=== PATIENT | female | born 1970 | race Caucasian/White ===

== ENCOUNTER 2017-05-02 06:52 | Inpatient (IN) | payer MEDICAID, SELFPAY ==
[2017-04-25 09:05] VITALS: BP 116/74; PULSE 79; RESP 16; TEMP 36.1; O2SAT 99; BMI 33.4
[2017-04-25 09:27] LABS: Hematocrit 39.4 % (37-47); Hemoglobin 13.9 g/dl (12.0-15.0); Mean Corp Hgb Conc 35.3 g/gl (32-36); Mean Corpuscular Volume 87.9 fL (81-99); Platelet Count 197 K/mm3 (150-450); RBC Distribution Width CV 12.3 % (11.6-14.6); RBC Distribution Width SD 38.8 fl (35.1-43.9); Red Blood Count 4.48 M/mm3 (4.2-5.4); White Blood Count 5.2 K/mm3 (4.4-11.0)
[2017-04-25 09:31] LABS: Scan Indicated on CBC? Y/N NO
[2017-04-25 09:46] LABS: Prothrombin Time (Protime)PT. 12.4 SECONDS (11.7-14.9)
[2017-04-25 09:47] LABS: Partial Thromboplast Time 26.4 Seconds (24.1-36.2)
--- NOTE | 2017-05-01 18:07 | PCM.HP.BLA ---
History and Physical Date of Admission: 05/02/17 CC: evaluation breast reconstruction. History of Present Illness: 47 year old woman presents for evaluation breast reconstruction. Her initial bilateral mastectomy was on 01/12/16. She underwent IV chemotherapy initially and this was followed by radiation therapy to the right breast. She finished the radiation therapy in 10/03. She states that during this adjuvant therapy, she has gained a little weight and has developed some extra tissue in the lower anterior abdominal wall. The last time I saw her in 03/04, she was interested in breast reconstruction with placement of implants. Now she is contemplating the use of autogenous tissue for the radiated right breast. She denies any fever. She states she has stopped smoking since her diagnosis of breast cancer. 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 Ahn - 01/12/16 mastectomy right breast and bilateral sentinel node biopsies by Dr. Juárez - 01/12/16 port placement - 02/02 MEDICATIONS: Zoloft. Valium. Mobic. Trazodone. Norvasc. Calcium Carbonate. ALLERGIES: Poultry. Family History: negative for breast cancer. Social History: Patient is a former smoker. Passive smoke exposure - no Alcohol Use - no Regular Exercise - yes Passive smoke exposure - yes Review of Systems General - Denies fever and fatigue. History of weight loss. Eyes - Denies eye pain. ENT - Denies nasal congestion and sore throat. CV - Denies chest pain or discomfort, fatigue, lightheadedness and shortness of breath with exertion. Resp - Denies cough and shortness of breath. Patient is a former smoker. GI - Denies nausea, vomiting, diarrhea and constipation. - Denies blood in urine and urinary frequency. MS - Complains of back pain. Denies joint pain, stiffness, muscle weakness and arthritis. Derm - Denies suspicious lesions and skin cancer. Neuro - Denies poor balance and headaches. Psych - Complains of anxiety. Denies depression. Endo - Denies excessive urination and excessive thirst. Has thyroid disease. Has history of right breast cancer. Heme - Denies bleeding and abnormal bruising. Vital Signs: Patient Profile: 47 Years Old Female Height: 61 inches Weight: 119.2 pounds BMI: 22.52 BSA: 1.52 Physical Exam General: well developed, well nourished, in no acute distress. Her bra size was 36 C prior to her breast cancer. Head: normocephalic and atraumatic. Eyes: PERRL. EOMI. Neck: no masses, thyromegaly, or abnormal cervical nodes. Breasts: Mastectomy vertical incisions are intact and healed. On the right breast there is some radiation effects with some firmness to the skin. Some mild discoloration. Some adherence to the chest wall. No axillary adenopathy. Breast diameter is 12 cm bilaterally. Lungs: clear bilaterally to auscultation. Heart: regular rate and rhythm. Abdomen: normal bowel sounds; no hepatosplenomegaly no ventral,umbilical hernias or masses noted. There is redundant skin and subcutaneous tissue between the umbilicus and the pubic area. Good skin elasticity noted. There is a horizontal scar in the pubic area. Pulses: pulses normal in all 4 extremities. Extremities: no clubbing, cyanosis, edema, or deformity noted with normal full range of motion of all joints. Neurologic: cranial nerves II-XII grossly intact. Skin: no rashes. Cervical Nodes: no significant adenopathy. Axillary Nodes: no significant adenopathy. Inguinal Nodes: no significant adenopathy. Psych: alert and cooperative; normal mood and affect; normal attention span and concentration. Assessment and Plan 1. Right breast cancer. 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 4. Disproportion reconstructed breasts. 5. Late effect radiation right breast. 6. Estrogen receptor status negative. 7. Former smoker. Patient has finished her chemotherapy and has finished her radiation therapy in 10/03. Before her adjuvant therapy, she was thinking about implants. However with the radiation therapy we will need to bring in non-radiated tissue into the breast. She has redundant skin and subcutaneous tissue in the lower anterior abdominal wall. She is interested in the TRAM flap. She has good skin elasticity in the lower anterior abdominal wall. Because the patient has stopped smoking, we don't need an initial TRAM flap delay procedure. The left breast mastectomy wound can be reconstructed with saline tissue expanders followed by placement of a cohesive gel implant and placement of Alloderm. Will proceed with the TRAM flap first. During the postop recovery period, can then proceed with left breast reconstruction with placement of the saline tissue surgical training specialist. At the time of removal of the surgical training specialist with replacement cohesive gel implant, we can revise the TRAM flap on the right if necessary. Because of her radiated tissue, will proceed with HBO treatments after the surgery during her postop recovery. This will help the vascularity and healing of the radiated tissue adjacent to the TRAM flap. Because of this radiation effect, when I inset the TRAM flap into the right breast mound, I anticipate there will radiation fibrosis that will cause a sharp cutoff between the flap skin and the radiated skin. Multiple W-plasties were performed to help soften up the scarring in this area and give it a smoother contour. The size of the multiple W-plasties was 40 cm2. Surgery will be done under general anesthesia. She will be in the hospital for approximately 5-7 days. Any breast tissue that is removed will be sent to Pathology for analysis to rule out carcinoma. She will have drains in for several days and be on antibiotics until the drains are removed. She will wear a surgical bra and abdominal binder for several weeks. Depending on how strong the abdominal wall fascia is, she may need re-enforcement of the abdominal wall with Strattice acellular dermal matrix graft to minimize hernia formation. She will have a special diet for 6 weeks (no caffeine, no coffee, no decaf, no tea, no chocolate). The patient was informed of the risks and complications of the procedure including alternatives to surgery. These were discussed with the patient personally. The patient voices understanding and wishes to proceed. Some of the risks and complications were included in a form from the [employer]. Encouraged the patient to stop smoking as it may have deleterious effects on wound healing. She states she has stopped smoking after her breast cancer diagnosis.
[2017-05-02] VITALS (7 sets, daily range): BP systolic 112–169; BP diastolic 72–87; PULSE 84–119; RESP 12–18; TEMP 36.6–37.1; O2SAT 95–100; BMI 33.4; BMI 33.7
--- NOTE | 2017-05-02 | BREAST_PTH ---
PATIENT: SHARON BARRAGAN LOC: MS2 U#:[id number] AGE/SX: 47/F ROOM: [facility] [place] RE05/02/[address]: Dr. Junior Ahn MD : 1970 BED: 1 DIS: 05/10/2017 SPEC #: [id number] RECD: 05/03/17 13:38 STATUS: CHIDI REConstance #: [id number] JOANNA: 05/02/17 00:[address]: Junior Ahn DEPT: SURGICAL PATHOLOGY RECD BY: Jaya Carter ENTERED: 05/03/17 13:39 SP TYPE: BREAST OTHR DR: MD Dr. Josué Lepe MD Tissues: Right breast, NOS Procedures: Surgery Specimen Level IV HEADER OPERATION: Delayed breast reconstruction, tram flap PRE-OP DIAGNOSIS: Acquired absence bilateral breasts; disproportion reconstructed breast TISSUE SUBMITTED: Right breast tissue FIXATION TIME: 12 hours MICROSCOPIC DIAGNOSIS Right breast, reconstruction: Dense collagenized stroma. Focal reactive and degenerative skeletal muscle change. No evidence of malignancy. AM:sharon 05/04/17 COMMENT Reference is made to the patient?s right breast ultrasound-guided needle core biopsy from 12/11/15 ([id number]) in which invasive ductal carcinoma was identified. MICROSCOPIC DESCRIPTION Slides are reviewed. GROSS DESCRIPTION Received in fixative is one container labeled with the patient's name and designated right breast tissue. The specimen consists of 23 fragments of clark-yellow fibrofatty tissue measuring in aggregate 14 x 12 x 2.5 cm and in aggregate weighing 105 gm. Several of the larger fragments contain grossly unremarkable skin. Serial sections do not reveal mass lesions. Baseball Hand Sewer sections are submitted in five cassettes. / AM:sharon 05/03/17 TC:5 CPT: 21126
[2017-05-02] MEDS: Cefazolin 2 GM in 0.9% Normal Saline 100 ML IV (10:25)
[2017-05-02] MEDS: Methylene Blue 1% 100 MG/10 ML VIAL (10:30)
[2017-05-02] MEDS: MethylPREDNISolone 125 MG/2 ML Vial (14:40)
[2017-05-02] MEDS: Mupirocin Ointment 22gm Tube 1 APPLIC (19:29)
--- NOTE | 2017-05-02 19:55 | OP.PN_ITS ---
Immediate Post-Op Note Date of Procedure: 05/02/17 Primary Surgeon/Physician: Junior Ahn transmission specialist: Jj Jonas. transmission specialist: Leigh Ann Brush. Pre-Operative Diagnosis: 1. Right breast cancer. 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 4. Disproportion reconstructed breasts. 5. Late effect radiation right breast. 6. Estrogen receptor status negative. 7. Former smoker. Post-Operative Diagnosis: Same. Surgery/Procedure Performed:: 1. Delayed right breast reconstruction with unipedicle contralateral TRAM flap. 2. Abdominal wall reconstruction with placement of Strattice acellular dermal matrix graft (100 cm2). 3. Revision radiation scar contour deformity right breast with multiple W-plasties (40 cm2). Description of Surgical Findings:: 47 year old woman presents for evaluation breast reconstruction. Her initial bilateral mastectomy was on 01/12/16. She underwent IV chemotherapy initially and this was followed by radiation therapy to the right breast. She finished the radiation therapy in 10/03. She states that during this adjuvant therapy, she has gained a little weight and has developed some extra tissue in the lower anterior abdominal wall. The last time I saw her in 03/04, she was interested in breast reconstruction with placement of implants. Now she is contemplating the use of autogenous tissue for the radiated right breast. She denies any fever. She states she has stopped smoking since her diagnosis of breast cancer. Today the patient underwent delayed right breast reconstruction with unipedicle contralateral TRAM flap and abdominal wall reconstruction with placement of Strattice acellular dermal matrix graft (100 cm2) and revision radiation scar contour deformity right breast with multiple W-plasties (40 cm2). IV Fluids - 4000 ml. Urine Output - 400 ml. I used Strattice acellular dermal matrix graft (10 x 10 cm, firm). Reference Number - [id number]. Lot Number - [id number]. Expiration - June 17, 2018. I used Geri absorbable hemostat (I used 3 vials, 1 1/2 in the breast and 1 1/ 2 in the abdomen). Reference Number - [id number]. Lot Number - [id number]. Expiration - January 14, 2022. Estimated Blood Loss: 250 ml. Specimen's removed: Right breast tissue to Pathology. Drains: [place] x 4 (2 in the right breast and 2 in the abdomen). Type of Anesthesia:: General - Admit VTE Documentation VTE Present on Admission: No VTE Mechan Device Prophylaxis: SCD's VTE Pharm Prophylaxis ordered?: Yes
[2017-05-02] MEDS: oxyCODONE 5 MG Tablet 10 MG PO (21:18)
[2017-05-02] MEDS: Ondansetron 4 MG/2 ML Vial IV (21:18)
--- NOTE | 2017-05-02 21:55 | PCM.OPRPT ---
Report of Operation Date of Procedure: 05/02/17 Pre-Operative Diagnosis: 1. Right breast cancer. 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 4. Disproportion reconstructed breasts. 5. Late effect radiation right breast. 6. Estrogen receptor status negative. 7. Former smoker. Post-Operative Diagnosis: Same. Surgery/Procedure Performed:: 1. Delayed right breast reconstruction with unipedicle contralateral TRAM flap. 2. Abdominal wall reconstructionn with placement of Strattice acellular dermal matrix graft (100 cm2). 3. Revision radiation scar contour deformity right breast with multiple W-plasties (40 cm2). Description of Surgical Findings:: 47 year old woman presents for evaluation breast reconstruction. Her initial bilateral mastectomy was on 01/12/16. She underwent IV chemotherapy initially and this was followed by radiation therapy to the right breast. She finished the radiation therapy in 10/03. She states that during this adjuvant therapy, she has gained a little weight and has developed some extra tissue in the lower anterior abdominal wall. The last time I saw her in 03/04, she was interested in breast reconstruction with placement of implants. Now she is interested in the use of autogenous tissue for the radiated right breast. She understands that a zig zag incision will be on the breast in order to soften up the radiation fibrosis which leads to a sharp cutoff between the flap and the radiated skin. Multiple W-plasties will be done which will soften up the breast skin for closure with good soft contour. She denies any fever. She states she has stopped smoking since her diagnosis of breast cancer. That is great, but there are still some residual effects from her smoking in the past that may affect healing. She voices understanding and wishes to proceed. The patient was informed of the risks and complications of the procedure including alternatives to surgery. These were discussed with the patient personally. The patient voices understanding and wishes to proceed. Some of the risks and complications were included in a form from the [employer] [place] [employer]. Encouraged the patient to stop smoking as it may have deleterious effects on wound healing. She states she has stopped smoking after her breast cancer diagnosis. IV Fluids - 4000 ml. Urine Output - 400 ml. I used Strattice acellular dermal matrix graft (10 x 10 cm, firm). Reference Number - [id number]. Lot Number - [id number]. Expiration - June 17, 2018. I used Geri absorbable hemostat (I used 3 vials, 1 1/2 in the breast and 1 1/2 in the abdomen). Reference Number - [id number]. Lot Number - [id number]. Expiration - January 14, 2022. edge stitcher: Jj Jonas. edge stitcher: Leigh Ann Brush. Type of Anesthesia:: General Specimen's removed: Right breast tissue to Pathology. Drains: Kolton x 4 (2 in the right breast and 2 in the abdomen). Estimated Blood Loss (mL): 250 ml. Fluids Replaced: 4400 ml (IV Fluids 4000 ml, Urine Output 400 ml). Description of Procedure: In the preop area, the patient stood up and in the standing position, preoperative markings were made. The sternum midline was marked down to the umbilicus. The inframammary folds marked bilaterally. I then kourtney a horizontal ellipse on the abdominal wall for the TRAM flap. I kourtney a superior line in the supraumbilical area and the inferior line in the pubic area. Lower line will be determined by the ability to close the superior line down with the patient in the sitting position during the procedure. The patient was then taken to the OR in the supine position and placed under general anesthesia and her breasts and abdomen were prepped and draped in usual fashion. SCDs were placed for DVT prophylaxis. Perioperative antibiotics were given intravenously. A Terrell catheter was then placed. Initially, I infiltrated the previous scar on the right breast. I also infiltrated the markings on the abdominal wall with 1% Xylocaine and epinephrine. I initially made an incision through the vertical scar on the radiated right breast. In order to have a better contour between the radiated skin and the TRAM flap, I went ahead and marked in a zigzag fashion the skin edges on the right breast reconstruction, which will soften up the skin edges from the radiation fibrosis and allow better contour. I dissected down to the chest wall. There was a lot of fibrosis in the subcutaneous tissue and on the muscle and the fibrotic tissue was excised and sent to Pathology for analysis to rule out carcinoma. The breast pocket was a lot softer after the excision of the dense fibrotic radiation tissue. No evidence of infection was noted in the breast pocket. I then made a horizontal incision in the supraumbilical area down through Melani's fascia down to the abdominal wall fascia. I then elevated the abdominal wall skin flap up toward the inframammary fold on the right side. I made a subcutaneous pocket extending up to the inframammary fold on the right in the medial aspect. When I connected the abdominal wall area with the breast pocket, the subcutaneous tunnel was able to fit all five fingers in there and I felt that was a large enough tunnel for the placement of the TRAM. I then sat the patient up and I was able to bring the leading edge of the abdominal wall flap down to the abdominal wall skin crease that I marked in the standing position. I was able to suture it together temporarily without too much tension. I went ahead and made the inferior incision. I then made a kimberly-shaped incision in the umbilical area. I then took out a Doppler to makenna out the placement of the vascular perforators on both the rectus muscles. The left rectus had vascular perforators. I had a hard time with the right rectus and some of the explanation could be that the breast was radiated which made hearing the perforators more difficult. Therefore I decided to use the contralateral unipedicle flap. The patient has good skin elasticity. The patient was a smoker but quit after her breast cancer diagnosis. I did not want to use the right side because the right breast is radiated, so I will try to avoid using the right muscle. Therefore, I made a vertical incision in the rectus sheath and dissected off the rectus muscle on the left side down to the TRAM flap. I then elevated the TRAM flap on both the left and right side from the lateral side in toward the lateral rectus sheath. On the right side, I elevated the TRAM flap skin all the way to the midline. Vascular perforators were ligated using surgical clips. The most distal portion of zone 4 was excised since that will not be used for the reconstruction at this time. After elevating the portion of the TRAM flap to the lateral side of the muscle,, I then carefully went a little bit more medially and dissected out the perforators and ligated them with surgical clips. I also went a little bit laterally from the midline and ligated any vascular perforators with surgical clips. I then kourtney a vertical ellipse from my initial vertical incision on the rectus sheath to encompass the TRAM flap to the lower portion of the incision. Incision was made and I then continued to dissect out the rectus muscle from the rectus sheath, but that a portion of the rectus muscle was still attached to the TRAM flap skin and subcutaneous tissue. I then incised the rectus muscle on the left side in the pubic area. I dissected out the deep inferior epigastric artery and ligated using surgical clips. Also, I dissected out the accompanying vein and ligated that with surgical clips as well. I only saw 1 vein. Normally I see 2 veins accompanying the artery. Once the muscle was incised distally, I then elevated it off of the posterior rectus sheath to the subcostal margin. I placed some 3-0 Vicryl sutures from the TRAM flap through the fascia into the muscle to give extra security to this flap to minimize shearing when I transfer the flap through the subcutaneous tunnel into the right breast pocket. I then dissected around the umbilicus to free up the TRAM flap. Care was taken to leave some tissue to keep the umbilicus from necrosing, but I did not want to leave too much tissue because I wanted to take some of the umbilical perforators with the TRAM flap. Once this was completed, the patient was given 250 mg of Solu-Medrol IV to minimize swelling in the vascular pedicle. I then rotated the TRAM flap through the subcutaneous tissue into the right breast wound in a clockwise direction. I looked to see that there was no kinking on the muscles on the vascular pedicle. Once, I rotated it into the breast pocket, I secured the skin edges to the TRAM flap temporally using 3-0 Monocryl suture. I then closed the fascial defect on the left using 0 Surgipro [id number] interrupted sutures. I also placed horizontal sutures in the right anterior rectus sheath to help centralize the umbilicus. I felt her fascia was a little weak, so I went ahead and reinforced the abdominal wall with Strattice acellular dermal matrix graft. I used a 10 x 10 cm piece of graft and this was used to cover the rectus fascia inferior to the umbilicus. Some of the graft covered the umbilicus and a V-shaped incision was made to wrap the Strattice around the umbilicus. I then secured the Strattice to the abdominal wall fascia using 2-0 Novafil simple interrupted sutures. Prior to closing the rectus fascia on the left, I made sure that the inferior rectus muscle stump was dry with no evidence of bleeding problems. Any bleeding issues that were seen were cauterized. I then placed 2 Kolton drains through separate stab incisions inferiorly and laterally, and secured to the skin using 3-0 nylon suture. I elevated the abdominal wall skin flap and removed some of the excess sub Melani's fat to aid in the contouring of the abdominal wall at wound closure. I then irrigated the abdominal wall with saline, and hemostasis was obtained using electrocautery. I then placed the patient in the sitting position about 30-40 degrees and I temporarily closed the abdominal wall incision centrally using 2-0 Vicryl suture. I then made an upside down cruciate incision where the umbilicus is to be brought through. An incision was made and some of the excess subcutaneous tissue was also removed to help with the inward appearance of the umbilicus. I then placed 4 stay sutures from the dermis of the abdominal wall flap to the abdominal rectus abdominal wall fascia and then to the dermis of the umbilicus. These sutures will be sutured later. I then removed the sutures in the abdominal wall closure to free up the abdominal wall flap at this time and then I sprayed the abdominal wall with Geri absorbable hemostat. I used 1 1/2 vials for the abdomen and I will use 1 1/2 vials for the breast. Once again, I looked up where the muscle went through the subcutaneous tunnel, and there was a small area of muscle laterally that felt a little tight, and I incised it. This softened up the muscle and relieved the tension on the muscle. No bleeding was noted in the muscle flap as it went into the breast pocket. I then closed the abdominal wall in multiple layers using 2-0 Vicryl [id number] interrupted sutures for Melani's fascia layer. The deep dermis and subcutaneous tissue was approximated using 2-0 Vicryl interrupted sutures Skin was approximated using 3-0 V-Loc unidirectional barbed running subcuticular suture. The 3-0 Vicryl sutures ere used to cinch down the umbilicus. Between these 4 stay sutures, I used a 3-0 Vicryl suture for simple interrupted sutures. Good inward appearance was noted on the umbilicus. I then reshaped the TRAM flap in the breast pocket. The radiated skin edges were excised in a zigzag fashion in preparation for a W-plasties reconstruction. I went ahead and made markings on the TRAM flap after it was reshaped in the breast pocket. Good shape and contour was noted. No evidence of vascular compromise was seen on the flap. I then cut out my sutures and made incisions where excess skin that was covered up the breast skin. This excess skin was deepithelialized. Once the TRAM flap was out of the breast wall pocket, I then irrigated out the breast pocket with saline. Any bleeding was controlled with hemostasis with electrocautery. I placed a 2 Kolton drains through separate stab incision laterally and secured to the skin using 3-0 nylon suture. Good hemostasis was noted. No bleeding was noted in the subcutaneous tunnel. Good bleeding was noted in the epithelized areas. No vascular compromise was noted on the TRAM flap. I then sprayed Geri absorbable hemostat into the breast wound. I then placed the TRAM flap back into the wound and closed the breast incisions with 3-0 Monocryl interrupted sutures for deep dermis and subcutaneous tissue. The skin was approximated using 4-0 Prolene simple interrupted sutures at the apex of the zigs and the zags. The skin incisions both in the abdomen and the breasts were then reinforced with Histoacryl skin tissue adhesive. Antibiotic ointment was applied to the umbilicus area and the drain sites. Dry gauze dressings were applied both to the abdomen and the TRAM flap. At the end of the procedure, the TRAM flap was pink and soft with no evidence of vascular compromise. I then placed a surgical bra on the breast and abdominal wall binder. The patient tolerated the procedure well and will be sent to the recovery room in satisfactory condition. She will be admitted for several days. Initially, she will stay in bed tonight and she will then dangle at the bedside in the morning. The next step will be ambulating within the room and then after that will be ambulating in the hallway with assistance. She will have the drains in for several days and be maintained on antibiotics until the drains are removed. She will be on a lifting restriction as well and wearing a surgical bra and abdominal binder. She will keep her head elevated during the initial postoperative care. It is important that she is on no caffeine, no decaf, no tea, no chocolate diet for 6 weeks. I will continue to Solumedrol for 24 hours to minimize swelling on the vascular pedicle. Also postoperatively as long as the BP > 110, I will give daily Procardia XL to minimize spasm in the vascular pedicle. Grafts/Implants Used: Strattice acellular dermal matrix graft. - Complications None. - Admit VTE Documentation VTE Present on Admission: No VTE Mechan Device Prophylaxis: SCD's VTE Pharm Prophylaxis ordered?: Yes
[2017-05-02] MEDS: Docusate Sodium 100 MG Capsule PO (22:56)
[2017-05-02] MEDS: Cefazolin 1 GM/50 ML BAG IV (22:56)
[2017-05-02] MEDS: Lactated Ringers 1,000 ML 100 ML IV (23:45)
[2017-05-02] MEDS: Lactated Ringers 1,000 ML 999 ML IV (23:45)
[2017-05-03] VITALS (9 sets, daily range): BP systolic 107–128; BP diastolic 53–80; PULSE 86–130; RESP 14–20; TEMP 36.6–37; O2SAT 96–100
--- NOTE | 2017-05-03 00:07 | NURSING ---
PT STATES SHE THINKS THAT HER SUGAR IS LOW ACCUCHECK RESULT IS 164. LAB HERE TO DO STAT CBC. PT MORE ALERT NOW.
[2017-05-03 00:22] LABS: Absolute Lymphocyte Count 0.39 X10^3/ul (0.83-4.51); Absolute Neutrophil Count 12.3 X10^3/uL (2.0-7.7); Basophil# 0.02 X10^3/uL; Basophil% 0.1 % (0-1); Differential Indicated SCAN CRITERIA MET; Hematocrit 38.6 % (37-47); Hemoglobin 13.3 g/dl (12.0-15.0); Lymphocyte # 0.39 X10^3/ul (4.0); Lymphocyte % 2.9 % (19-41); Mean Corp Hgb Conc 34.5 g/gl (32-36); Monocyte# 0.71 X10^3/uL; Monocyte% 5.3 % (0-10); Neutrophil # 12.31 X10^3/uL (2.7-7.7); Neutrophil % 91.4 % (47-70); POSITIVE COUNT NO; POSITIVE DIFFERENTIAL YES; POSITIVE MORPHOLOGY NO; Platelet Count 214 K/mm3 (150-450); RBC Distribution Width CV 12.5 % (11.6-14.6); RBC Distribution Width SD 40.6 fl (35.1-43.9); Red Blood Count 4.29 M/mm3 (4.2-5.4); White Blood Count 13.5 K/mm3 (4.4-11.0)
[2017-05-03 00:30] LABS: Bedside Glucose 164 mg/dL (70-110)
[2017-05-03] MEDS: BENZOCAINE/MENTHOL 1 LOZENGE MUCOUS MEM (00:43)
--- NOTE | 2017-05-03 00:44 | PCM.PN.BLA ---
Progress Note Called to see the patient because the nurse had trouble arousing her. Her pulse rate had been in the 110-119 range. Her blood pressure was stable. Before arriving, we increased the IV fluids to 100 ml/hr and gave her a 250 ml bolus. She became more awake when I arrived. She had trouble coughing which increased the pain. Her BP was 128/80 when I saw her. Her pulse was 111. Her respirations were 14. A CBC was obtained and her Hgb was stable at 13.3. Her breast TRAM flap is soft and pink with no evidence of hematoma or vascular compromise. Ordered throat lozenges because of a sore throat from the length of the intubation. Also ordered nebulizer to try and break up her bronchial reactivity to help her breathe better and not cough as much. This increased coughing is not uncommon in smokers. Even though she stopped smoking, some of the residual effects can still appear especially in activities like intubation for surgery. Even though she is having more pain since she is more awake, all she has had thus far was Oxycodone. If that is not helpful, she can have some Dilaudid.
--- NOTE | 2017-05-03 01:00 | NURSING ---
PT CALLED HER MOM TO COME IN TO STAY WITH HER. PT ALERT, TALKING. CEPACOL GIVEN FOR THROAT DISCOMFORT
[2017-05-03] MEDS: oxyCODONE 5 MG Tablet 10 MG PO ×4 (04:12→19:44)
[2017-05-03] MEDS: Cefazolin 1 GM/50 ML BAG IV ×3 (05:03→21:12)
[2017-05-03] MEDS: Enoxaparin 40 MG/0.4 ML Syringe SC (05:04)
[2017-05-03] MEDS: Ipratropium/Albuterol Sulfate 3 ML AMPUL.NEB INHALATION ×3 (07:01→18:42)
[2017-05-03 07:04] LABS: Hematocrit 30.8 % (37-47); Hemoglobin 10.8 g/dl (12.0-15.0); Mean Corp Hgb Conc 35.1 g/gl (32-36); Mean Corpuscular Hgb 31.5 pg (27.0-32.0); Mean Corpuscular Volume 89.8 fL (81-99); Platelet Count 188 K/mm3 (150-450); RBC Distribution Width CV 12.2 % (11.6-14.6); RBC Distribution Width SD 38.8 fl (35.1-43.9); Red Blood Count 3.43 M/mm3 (4.2-5.4)
[2017-05-03 07:08] LABS: Scan Indicated on CBC? Y/N NO
[2017-05-03 07:57] LABS: Anion Gap 7 (5-15); BUN 11 mg/dL (7-18); BUN/Creat Ratio 12.7 RATIO (10-20); Calcium,Total 8.1 mg/dL (8.5-10.1); Chloride 105 mmol/L (98-107); Creatinine, Serum 0.87 mg/dL (0.55-1.02); EST Glomerular Filtration Rate 74 mL/min (>60); Est Glom Filt Rate - Afr Amer 89 mL/min (>60); Estimated Creatinine Clearance 59.67 ml/min; Glucose 151 mg/dL (74-106); Potassium 4.1 mmol/L (3.5-5.1); Prealbumin 19.5 mg/dL (20.0-40.0); Sodium Level 138 mmol/L (136-145)
[2017-05-03] MEDS: Meloxicam 15 MG Tablet PO (09:18)
[2017-05-03] MEDS: Calcium Carb/Vitamin D 1 TABLET Tablet PO (09:18)
[2017-05-03] MEDS: Docusate Sodium 100 MG Capsule PO ×2 (09:18→21:11)
[2017-05-03] MEDS: Sertraline 50 MG Tablet 150 MG PO (09:19)
[2017-05-03] MEDS: diazePAM 5 MG Tablet PO ×2 (11:53→19:45)
[2017-05-03] MEDS: Lactated Ringers 1,000 ML 100 ML IV (14:41)
--- NOTE | 2017-05-03 14:42 | CASEMGMT ---
See DOUGIE GALEANO assessment link. DC PLAN: Home, possibly with home health. -Intro role of CM to patient in room. she is awake, alert and able to participate in dc planning. -Pt lives alone, however states her mother and boyfriend will be able to assist her on dc. DOUGIE GALEANO recommended she have someone 24/7 for first few days. -discussed home health. pt is familiar with services, does not know if she will need on discharge. -CM will continue to follow and assist with dc planning. Tray QUARLESN RN ACM
--- NOTE | 2017-05-03 18:00 | PN.SURG_ITS ---
Subjective: Postop #1 Patient feeling better this morning but tired. Coughing less after breathing treatments. Was able to stand at bedside today. - Physical Exam General: Alert, Oriented x3 HEENT: PERRLA, EOMI Neck: Supple Lungs: Clear to auscultation Cardiovascular: Regular rate, Regular Rhythm Extremities: Edema - mild edema in lower extremities. Skin: Incision - right breast incision is dry and intact. Flap is soft and viable with some minor bruising at the edges where there was the most manipulation during the surgery. Will observe. Neurological: Cranial nerves II-XII grossly intact Psych/Mental Status: Normal Affect, Appropriate Vital Signs Temp Pulse Resp BP Pulse Ox 98.5 F 121 H 16 110/60 98 05/03/17 14:45 05/03/17 14:45 05/03/17 14:45 05/03/17 14:45 05/03/17 14:45 Oxygen Flow Rate 1 Oxygen Delivery Method Room Air Weight: 178 lb 12.718 oz Body Mass Index (BMI) 33.7 Intake and Output for Last 24 Hours 05/01/17 05/02/17 05/03/17 23:59 23:59 23:59 Intake Total 4775 / 4775 5433 / 5433 Output Total 860 / 860 5415 / 5415 Balance 3915 / 3915 Drainage 360 ml yesterday. Laboratory Tests Past 24 Hrs 05/03/17 05/03/17 05/03/17 00:05 06:36 06:36 WBC 13.5 H 11.0 RBC 4.29 3.43 L Hgb 13.3 10.8 L Hct 38.6 30.8 L MCV 90.0 89.8 MCH 31.0 31.5 MCHC 34.5 35.1 RDW 12.5 12.2 RDW Differential 40.6 38.8 Plt Count 214 188 MPV 9.0 9.0 Immature Gran % (Auto) 0.300 Neut % (Auto) 91.4 H Lymph % (Auto) 2.9 L [place] % (Auto) 5.3 Eos % (Auto) 0.0 Baso % (Auto) 0.1 Absolute Neuts (auto) 12.3 H Absolute Lymphs (auto) 0.39 L Total Counted Not Reportable Sodium 138 Potassium 4.1 Chloride 105 Carbon Dioxide 26.0 Anion Gap 7 BUN 11 Creatinine 0.87 Estim Creat Clear Calc 59.67 Est GFR (MDRD) Af Amer 89 Est GFR (MDRD) Non-Af 74 BUN/Creatinine Ratio 12.7 Glucose 151 H Calcium 8.1 L Prealbumin 19.5 L POC Glucose 05/03/17 00:06 POC Glucose 164 H Assessment/Plan 1. Right breast cancer. 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 4. Disproportion reconstructed breasts. 5. Late effect radiation right breast. 6. Estrogen receptor status negative. 7. Former smoker. 8. s/p delayed right breast reconstruction with unipedicle contralateral TRAM flap and abdominal wall reconstruction with placement of Strattice acellular dermal matrix graft (100 cm2) and revision radiation scar contour deformity right breast with multiple W-plasties (40 cm2). Patient has some incisional discomfort. Patient states her coughing is much less after the breathing treatments. She was able to stand at the bedside with assist today. She feels her heart beating fast. Discussed with the patient that pain after surgery can increase the heart rate and the breathing treatments that were done can also increase the heart rate. She has no chest pain. Right breast incision is dry and intact. Flap is soft and viable with some minor bruising at the edges where there was the most manipulation during the surgery. Will observe. Abdominal incision dry and intact. No clinical evidence of hematoma. Hgb at 10.8. A decrease from preop. Expected drop with IV dilution (positive about 4 liters) and some operative blood loss. Keep head elevated. Next step is walking in the room.
[2017-05-04] VITALS (7 sets, daily range): BP systolic 104–119; BP diastolic 50–71; PULSE 101–114; RESP 16–20; TEMP 36.5–36.9; O2SAT 93–97
[2017-05-04] MEDS: oxyCODONE 5 MG Tablet 10 MG PO ×5 (01:00→22:14)
[2017-05-04] MEDS: Enoxaparin 40 MG/0.4 ML Syringe SC (06:25)
[2017-05-04] MEDS: Cefazolin 1 GM/50 ML BAG IV ×3 (06:25→21:48)
[2017-05-04] MEDS: Sertraline 50 MG Tablet 150 MG PO (06:29)
[2017-05-04] MEDS: BENZOCAINE/MENTHOL 1 LOZENGE MUCOUS MEM (06:42)
[2017-05-04 06:49] LABS: Hematocrit 27.4 % (37-47); Hemoglobin 9.4 g/dl (12.0-15.0); Mean Corp Hgb Conc 34.3 g/gl (32-36); Mean Corpuscular Hgb 31.5 pg (27.0-32.0); Mean Corpuscular Volume 91.9 fL (81-99); Platelet Count 194 K/mm3 (150-450); RBC Distribution Width CV 12.5 % (11.6-14.6); RBC Distribution Width SD 40.8 fl (35.1-43.9); Red Blood Count 2.98 M/mm3 (4.2-5.4); Scan Indicated on CBC? Y/N NO; White Blood Count 14.1 K/mm3 (4.4-11.0)
[2017-05-04] MEDS: Calcium Carb/Vitamin D 1 TABLET Tablet PO (07:37)
[2017-05-04] MEDS: Docusate Sodium 100 MG Capsule PO ×2 (07:37→21:48)
[2017-05-04] MEDS: Meloxicam 15 MG Tablet PO (07:37)
[2017-05-04] MEDS: diazePAM 5 MG Tablet PO ×2 (10:42→16:05)
--- NOTE | 2017-05-04 13:44 | PCM.PN.SRG ---
Subjective: Postop #2 Patient has some discomfort but overal feeling ok. She walked in the room today and was happy about that. - Physical Exam General: Alert, Oriented x3 HEENT: PERRLA, EOMI Neck: Supple Lungs: Clear to auscultation Cardiovascular: Regular rate, Regular Rhythm Abdomen: Soft, Non-Distended Skin: Incision - right breast incision is dry and intact. Flap is soft and viable with some minor bruising at the edges where there was the most manipulation during the surgery and with trauma during suturing of the flap. Will observe. No clinical evidence of hematoma. The abdominal incision is dry and intact. No clinical evidenc of hematoma. Psych/Mental Status: Normal Affect, Appropriate Vital Signs Temp Pulse Resp BP Pulse Ox 97.7 F L 101 H 16 118/70 94 05/04/17 07:30 05/04/17 07:30 05/04/17 07:30 05/04/17 07:30 05/04/17 07:30 Oxygen Flow Rate 1 Oxygen Delivery Method Room Air Weight: 178 lb 12.718 oz Body Mass Index (BMI) 33.7 Intake and Output for Last 24 Hours 05/02/17//05/04/17 23:59 23:59 23:59 Intake Total 4775 / 4775 5433 / 5433 2187 / 2187 Output Total 860 / 860 5545 / 5545 4735 / 4735 Balance 3915 / 3915 -112 / -112 -2548 / -2548 Drainage 645 yesterday. Laboratory Tests Past 24 Hrs 05/04/17 06:25 WBC 14.1 H RBC 2.98 L Hgb 9.4 L Hct 27.4 L MCV 91.9 MCH 31.5 MCHC 34.3 RDW 12.5 RDW Differential 40.8 Plt Count 194 MPV 9.0 Assessment/Plan 1. Right breast cancer. 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 4. Disproportion reconstructed breasts. 5. Late effect radiation right breast. 6. Estrogen receptor status negative. 7. Former smoker. 8. s/p delayed right breast reconstruction with unipedicle contralateral TRAM flap and abdominal wall reconstruction with placement of Strattice acellular dermal matrix graft (100 cm2) and revision radiation scar contour deformity right breast with multiple W-plasties (40 cm2). 9. anemia of chronic disease, acute on chronic. Patient has some incisional discomfort. Patient states her coughing is resolved. So the breathing treatments were discontinued because of the heart rate. It has decreased to 101. If it goes back to the previous levels (120-130 range) will obtain a medicine consult. BP has been stable at 118/70. She was able to walk in the room today with assist. Will remove the encinas. She has no chest pain. Right breast incision is dry and intact. Flap is soft and viable with some minor bruising at the edges where there was the most manipulation during the surgery. Will observe. No progression of the bruising noted. No clinical evidence of hematoma. Abdominal incision dry and intact. No clinical evidence of hematoma. Hgb at 9.4. Expected drop with IV dilution (positive about 4 liters from surgery) and some operative blood loss. Will send the patient home on iron supplements. If Hgb dips below 9, I will start the iron supplements here. Keep head elevated. Next step is walking in the hallway.
[2017-05-04] MEDS: HYDROmorphone 1 MG/ML Syringe IV ×2 (14:32→19:56)
--- NOTE | 2017-05-04 19:46 | NURSING ---
at 1850, this RN was notified by [employer]ER that there was a drain that was leaking from the drain incision site. this RN entered room to find that drain #4 to the left lower abd had been pulled out slightly and the fenestrations to the drain were exposed. bulb unable to hold suction. the surrounding dressing was saturated with serosanguineous drainage. dressing was changed due to protect surrounding skin. drain sponges were placed against the LOIS sites and kerlix laid over incisions. message was left for Dr Ahn and DOUGIE Muñoz aware.
[2017-05-04] MEDS: amLODIPine 5 MG Tablet PO (21:48)
[2017-05-05] VITALS (19 sets, daily range): BP systolic 101–158; BP diastolic 55–86; PULSE 85–113; RESP 14–18; TEMP 36.4–37.2; O2SAT 88–98; BMI 33.7
[2017-05-05] MEDS: Lactated Ringers 1,000 ML 30 ML IV ×2 (00:01→19:16)
[2017-05-05] MEDS: diazePAM 5 MG Tablet PO (00:10)
[2017-05-05] MEDS: oxyCODONE 5 MG Tablet 10 MG PO ×3 (03:05→22:58)
[2017-05-05] MEDS: Enoxaparin 40 MG/0.4 ML Syringe SC (06:37)
[2017-05-05] MEDS: Cefazolin 1 GM/50 ML BAG IV ×3 (06:37→21:12)
[2017-05-05] MEDS: Sertraline 50 MG Tablet 150 MG PO (06:38)
[2017-05-05 06:55] LABS: Hematocrit 23.1 % (37-47); Hemoglobin 7.8 g/dl (12.0-15.0); Mean Corp Hgb Conc 33.8 g/gl (32-36); Mean Corpuscular Volume 91.7 fL (81-99); Mean Platelet Vol. 8.7 fl (6.2-12.0); Platelet Count 154 K/mm3 (150-450); RBC Distribution Width CV 13.1 % (11.6-14.6); RBC Distribution Width SD 43.8 fl (35.1-43.9); Red Blood Count 2.52 M/mm3 (4.2-5.4); White Blood Count 7.6 K/mm3 (4.4-11.0)
[2017-05-05 06:58] LABS: Scan Indicated on CBC? Y/N NO
[2017-05-05] MEDS: HYDROmorphone 1 MG/ML Syringe IV ×2 (07:01→20:09)
[2017-05-05] MEDS: 0.9% NaCl Peripheral Flush Adult/Peds IV ×2 (07:06→19:16)
[2017-05-05 07:15] LABS: Anion Gap 7 (5-15); BUN 20 mg/dL (7-18); BUN/Creat Ratio 35.5 RATIO (10-20); Calcium,Total 8.1 mg/dL (8.5-10.1); Chloride 102 mmol/L (98-107); Creatinine, Serum 0.56 mg/dL (0.55-1.02); EST Glomerular Filtration Rate 122 mL/min (>60); Est Glom Filt Rate - Afr Amer 148 mL/min (>60); Estimated Creatinine Clearance 92.71 ml/min; Glucose 97 mg/dL (74-106); Potassium 3.4 mmol/L (3.5-5.1); Sodium Level 139 mmol/L (136-145)
--- NOTE | 2017-05-05 10:08 | PCM.PN.BLA ---
Progress Note Saw patient this morning. She feels tired. She has mild pain in the right breast and abdominal incisions. The left abdominal drain was loose and was almost out, so I removed it. Pulse at 102. BP at 101/61. Drainage has been 505 ml out of all the drains. Examination of her right breast shows some firmness for the first time. There is little more swelling. There is more moderate bruising at the edges of the incision. Clinically she has a hematoma. Her Hgb has dropped to 7.8. Will receive 2 units PRBC. The patient will go to the OR today for evacuation and drainage of this hematoma. The wound will be left open and packed. May place the VAC postop. Also, the pressure of the hematoma on the flap can compromise the blood flow which is exhibited by more moderate bruising at the edges. Draining the hematoma and taking pressure off the flap will help to salvage the flap. Patient is in agreement and voices understanding and wishes to proceed.
[2017-05-05] MEDS: NIFEdipine 30 MG Tablet PO (11:31)
--- NOTE | 2017-05-05 11:51 | NURSING ---
REPORT CALLED TO [facility] AND CALLED PHARMACY TO HAVE THEM SEND HER ATB TO THEM AND IT WAS NOT ON THE FLOOR- 1400 DOSE
[2017-05-05] MEDS: Ondansetron 4 MG/2 ML Vial IV (12:45)
--- NOTE | 2017-05-05 15:00 | PCM.IMDPSTOP ---
Immediate Post-Op Note Date of Procedure: 05/05/17 Primary Surgeon/Physician: Junior Ahn regional service manager: None Pre-Operative Diagnosis: 1. Postop hematoma right TRAM flap breast reconstruction. Right breast cancer. 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 4. Disproportion reconstructed breasts. 5. Late effect radiation right breast. 6. Estrogen receptor status negative. 7. Former smoker. Post-Operative Diagnosis: Same. Surgery/Procedure Performed:: Surgical preparation right breast TRAM flap reconstruction with incision and drainage and evacuation hematoma. Description of Surgical Findings:: 47 year old woman presents for evaluation breast reconstruction. Her initial bilateral mastectomy was on 01/12/16. She underwent IV chemotherapy initially and this was followed by radiation therapy to the right breast. She finished the radiation therapy in 10/03. She states that during this adjuvant therapy, she has gained a little weight and has developed some extra tissue in the lower anterior abdominal wall. The last time I saw her in 03/04, she was interested in breast reconstruction with placement of implants. Now she is contemplating the use of autogenous tissue for the radiated right breast. She denies any fever. She states she has stopped smoking since her diagnosis of breast cancer. On 05/02/17, the patient underwent delayed right breast reconstruction with unipedicle contralateral TRAM flap and abdominal wall reconstruction with placement of Strattice acellular dermal matrix graft (100 cm2) and revision radiation scar contour deformity right breast with multiple W-plasties (40 cm2). Postoperatively the TRAM flap was initially soft with minor bruising at the incision lines. This morning, the flap was more firm and swollen with more bruising. The Hgb had dropped to 7.8. Recommended operative intervention to evacuate the hematoma to take pressure off the blood supply to the flap. Draining the hematoma and taking pressure off the flap will help to salvage the flap. Today the patient underwent surgical preparation right breast TRAM flap reconstruction with incision and drainage and evacuation hematoma. Estimated Blood Loss: 200 ml. Specimen's removed: None. Drains: None. Type of Anesthesia:: General - Admit VTE Documentation VTE Present on Admission: No VTE Mechan Device Prophylaxis: SCD's VTE Pharm Prophylaxis ordered?: Yes
--- NOTE | 2017-05-05 18:34 | PCM.OPRPT ---
Report of Operation Date of Procedure: 05/05/17 Pre-Operative Diagnosis: 1. Postop hematoma right TRAM flap breast reconstruction. 2. Right breast cancer. 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 5. Disproportion reconstructed breasts. 6. Late effect radiation right breast. 7. Estrogen receptor status negative. 8. Former smoker. Post-Operative Diagnosis: Same. Surgery/Procedure Performed:: Surgical preparation right breast TRAM flap reconstruction with incision and drainage and evacuation hematoma. Description of Surgical Findings:: 47 year old woman presents for evaluation breast reconstruction. Her initial bilateral mastectomy was on 01/12/16. She underwent IV chemotherapy initially and this was followed by radiation therapy to the right breast. She finished the radiation therapy in 10/03. She states that during this adjuvant therapy, she has gained a little weight and has developed some extra tissue in the lower anterior abdominal wall. The last time I saw her in 03/04, she was interested in breast reconstruction with placement of implants. Now she is contemplating the use of autogenous tissue for the radiated right breast. She denies any fever. She states she has stopped smoking since her diagnosis of breast cancer. On 05/02/17, the patient underwent delayed right breast reconstruction with unipedicle contralateral TRAM flap and abdominal wall reconstruction with placement of Strattice acellular dermal matrix graft (100 cm2) and revision radiation scar contour deformity right breast with multiple W-plasties (40 cm2). Postoperatively the TRAM flap was initially soft with minor bruising at the incision lines. This morning, the flap was more firm and swollen with more bruising. The Hgb had dropped to 7.8. Recommended operative intervention to evacuate the hematoma to take pressure off the blood supply to the flap. Draining the hematoma and taking pressure off the flap will help to salvage the flap. The patient was informed of the risks and complications of the procedure including alternatives to surgery. These were discussed with the patient personally. The patient voices understanding and wishes to proceed. editor newspaper: None Type of Anesthesia:: General Specimen's removed: None. Drains: None. Estimated Blood Loss (mL): 200 ml. Description of Procedure: Patient was taken to OR in supine position and was placed under general anesthesia. Her right breast was prepped and draped in the usual fashion. SCD's were placed for DVT prophylaxis. Perioperative antibiotics were given intravenously. The two [place] drains were removed as I cut the suture to the skin. The incision sutures laterally and superiorly were removed. There was some bleeding that was drained. Some clot was also evacuated. The bleeding points were few in number and hemostasis was obtained with electrocautery. There was about 200 ml blood loss. Preop based on the firmness of the flap, I anticipated there would be more bleeding than there was. After the drainage, the flap was noticeably softer. The blistering at the edges of the flap were debrided. The underlying dermis was red and viable. Will observe for eventual salvageability. The wound was copiously irrigated out with saline. I did not remove the sutures in the inferomedial area because of the presence of the vascular pedicle. When I lifted the flap to get hemostasis, I checked the muscle and it wasn't kinked. It appeared soft and viable. No bleeding or hematoma was seen in the subcutaneous tunnel where the flap was brought through into the breast. I then approximated the flap incisions at the zigzag points with 3-0 Prolene sutures. This left the intervening incision edges open for packing. This will allow further drainage if necessary. When I released the sutures initially the flap softened from removal of the pressure of the hematoma as well as possibly too much tension on the closure of the flap. The wounds were packed with Kerlix gauze and Betadine followed by dry Kerlix gauze and ABD pads. Patient tolerated the procedure well and was sent to PACU in satisfactory condition. She had received 2 units PRBC preoperatively. So will check a Hgb postop. She will be sent upstairs for continued postop care and observation of the flap. Will change the dressing to Aquacel Silver tomorrow. Grafts/Implants Used: None. - Complications None. - Admit VTE Documentation VTE Present on Admission: No VTE Mechan Device Prophylaxis: SCD's VTE Pharm Prophylaxis ordered?: Yes
[2017-05-05] MEDS: Docusate Sodium 100 MG Capsule PO (20:09)
[2017-05-05 21:15] LABS: Hemoglobin 10.2 g/dl (12.0-15.0)
[2017-05-06] VITALS (8 sets, daily range): BP systolic 112–153; BP diastolic 64–86; PULSE 94–107; RESP 16–18; TEMP 36.7–36.9; O2SAT 95–100
[2017-05-06] MEDS: HYDROmorphone 1 MG/ML Syringe IV ×5 (03:16→20:43)
[2017-05-06] MEDS: Enoxaparin 40 MG/0.4 ML Syringe SC (05:20)
[2017-05-06] MEDS: Cefazolin 1 GM/50 ML BAG IV ×3 (05:20→20:43)
[2017-05-06] MEDS: oxyCODONE 5 MG Tablet 10 MG PO ×3 (05:25→14:25)
[2017-05-06 07:35] LABS: Hematocrit 31.1 % (37-47); Hemoglobin 10.5 g/dl (12.0-15.0); Mean Corp Hgb Conc 33.8 g/gl (32-36); Mean Corpuscular Hgb 30.2 pg (27.0-32.0); Mean Corpuscular Volume 89.4 fL (81-99); Mean Platelet Vol. 8.6 fl (6.2-12.0); Platelet Count 152 K/mm3 (150-450); RBC Distribution Width CV 13.4 % (11.6-14.6); RBC Distribution Width SD 44.1 fl (35.1-43.9); Red Blood Count 3.48 M/mm3 (4.2-5.4); White Blood Count 6.2 K/mm3 (4.4-11.0)
[2017-05-06 07:41] LABS: Scan Indicated on CBC? Y/N NO
[2017-05-06 07:57] LABS: Anion Gap 9 (5-15); BUN 10 mg/dL (7-18); Calcium,Total 8.2 mg/dL (8.5-10.1); Chloride 104 mmol/L (98-107); Creatinine, Serum 0.62 mg/dL (0.55-1.02); EST Glomerular Filtration Rate 108 mL/min (>60); Est Glom Filt Rate - Afr Amer 131 mL/min (>60); Estimated Creatinine Clearance 83.74 ml/min; Glucose 93 mg/dL (74-106); Potassium 3.6 mmol/L (3.5-5.1); Sodium Level 139 mmol/L (136-145)
[2017-05-06] MEDS: 0.9% NaCl Peripheral Flush Adult/Peds IV ×4 (08:45→20:42)
--- NOTE | 2017-05-06 08:54 | NURSING ---
Dr Ahn at bedside changing right breast dressing. Pt medicated with Dilaudid 1mg IV for dressing change.
[2017-05-06] MEDS: Meloxicam 15 MG Tablet PO (09:31)
[2017-05-06] MEDS: NIFEdipine 30 MG Tablet PO (09:31)
[2017-05-06] MEDS: Sertraline 50 MG Tablet 150 MG PO (09:31)
[2017-05-06] MEDS: Docusate Sodium 100 MG Capsule PO ×2 (09:31→20:43)
[2017-05-06] MEDS: Calcium Carb/Vitamin D 1 TABLET Tablet PO (12:04)
--- NOTE | 2017-05-06 13:54 | CASEMGMT ---
DOUGIE GALEANO spoke with supercharger repair supervisorIdania, re: estimated LOS. Per Idania, Dr. Ahn rounded this morning and indicated patient would be here until Monday or Monday. DOUGIE GALEANO will follow-up regarding post-acute needs on Monday. WILLAM RecioN, RN-BC, CCM
--- NOTE | 2017-05-06 14:24 | PCM.PN.SRG ---
Subjective: Postop #1 and Postop #4 Patient is resting comfortably. Feels better and not as tired. - Physical Exam General: Alert, Oriented x3 HEENT: PERRLA, EOMI Neck: Supple Lungs: Clear to auscultation Cardiovascular: Regular rate, Regular Rhythm Abdomen: Soft, Non-Distended Extremities: No clubbing, No cyanosis, Edema - mild edema in extremities. Skin: Ulcer/ Wound - right breast much softer than yesterday before the surgery. The wounds are clean. Minimal drainage. Tolerated the dressing change well with Aquacel Silver. The areas of bruising along the edges have improved. The blistering was debrided in the OR and the underlying dermis is red and viable. Will continue to observe. The central aspect of the flap is viable and healing well thus far., Incision - Abdominal incision is dry and intact and healing satisfactory. Neurological: Cranial nerves II-XII grossly intact Psych/Mental Status: Normal Affect, Appropriate Vital Signs Temp Pulse Resp BP Pulse Ox 98.1 F 107 H 16 128/70 H 96 05/06/17 12:02 05/06/17 12:02 05/06/17 12:02 05/06/17 12:02 05/06/17 12:02 Oxygen Flow Rate 2 Oxygen Delivery Method Room Air Weight: 178 lb 12.718 oz Body Mass Index (BMI) 33.7 Intake and Output for Last 24 Hours 05/04/17 05/05/17 05/06/17 23:59 23:59 23:59 Intake Total 3978 / 3978 2867 / 2867 1201 / 1201 Output Total 5980 / 5980 1705 / 1705 2019 / 2019 Balance -2001 / -2001 1162 / 1162 -819 / -819 Drainage 205 ml yesterday. Laboratory Tests Past 24 Hrs 05/05/17 05/05/17 05/06/17 09:05 20:25 07:15 WBC 6.2 RBC 3.48 L Hgb 10.2 L 10.5 L Hct 31.1 L MCV 89.4 MCH 30.2 MCHC 33.8 RDW 13.4 RDW Differential 44.1 H Plt Count 152 MPV 8.6 Sodium Potassium Chloride Carbon Dioxide Anion Gap BUN Creatinine Estim Creat Clear Calc Est GFR (MDRD) Af Amer Est GFR (MDRD) Non-Af BUN/Creatinine Ratio Glucose Calcium Blood Type A POSITIVE Antibody Screen NEGATIVE Crossmatch See Detail 05/06/17 07:15 WBC RBC Hgb Hct MCV MCH MCHC RDW RDW Differential Plt Count MPV Sodium 139 Potassium 3.6 Chloride 104 Carbon Dioxide 26.0 Anion Gap 9 BUN 10 Creatinine 0.62 Estim Creat Clear Calc 83.74 Est GFR (MDRD) Af Amer 131 Est GFR (MDRD) Non-Af 108 BUN/Creatinine Ratio 16.0 Glucose 93 Calcium 8.2 L Blood Type Antibody Screen Crossmatch Assessment/Plan 1. Right breast cancer. 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 4. Disproportion reconstructed breasts. 5. Late effect radiation right breast. 6. Estrogen receptor status negative. 7. Former smoker. 8. s/p delayed right breast reconstruction with unipedicle contralateral TRAM flap and abdominal wall reconstruction with placement of Strattice acellular dermal matrix graft (100 cm2) and revision radiation scar contour deformity right breast with multiple W-plasties (40 cm2). 9. Anemia of chronic disease, acute on chronic. 10. Hematoma right breast reconstruction. 11. s/p surgical preparation right breast TRAM flap reconstruction with incision and drainage and evacuation hematoma. Patient feels much better than yesterday. Her Pulse has stabilized in the 90's. She was able to ambulate with assist in the hallway. TRAM flap looks much better than yesterday. It is much softer than yesterday. The bruising has subsided. The bruising at the edges of the incisions appear red and viable dermis at this point. Will continue to observe. The central aspect of the flap is viable and healing satisfactory. She tolerated the dressing change well with Aquacel Silver. No bleeding seen. Hgb stable at 10.5 after 2 units of PRBC. Will send the patient home on iron supplements.
--- NOTE | 2017-05-06 14:40 | NURSING ---
Abdominal dressing reinforced. Serosanguinous drainage leaks when pt gets up to the bathroom.
[2017-05-07] MEDS: HYDROmorphone 1 MG/ML Syringe IV ×5 (00:12→23:26)
[2017-05-07 03:00] VITALS: BP 111/68; PULSE 91; RESP 18; TEMP 36.9; O2SAT 97
[2017-05-07] MEDS: Lactated Ringers 1,000 ML 30 ML IV (05:22)
[2017-05-07] MEDS: Enoxaparin 40 MG/0.4 ML Syringe SC (05:22)
[2017-05-07] MEDS: Cefazolin 1 GM/50 ML BAG IV ×3 (05:22→21:31)
[2017-05-07] MEDS: oxyCODONE 5 MG Tablet 10 MG PO ×5 (05:35→23:27)
[2017-05-07] MEDS: Meloxicam 15 MG Tablet PO (07:45)
[2017-05-07] MEDS: Sertraline 50 MG Tablet 150 MG PO (07:46)
[2017-05-07 09:00] VITALS: BP 105/62; PULSE 104; RESP 16; TEMP 36.6; O2SAT 97
[2017-05-07] MEDS: Docusate Sodium 100 MG Capsule PO ×2 (09:46→21:31)
[2017-05-07] MEDS: 0.9% NaCl Peripheral Flush Adult/Peds IV (12:11)
[2017-05-07] MEDS: Calcium Carb/Vitamin D 1 TABLET Tablet PO (12:53)
--- NOTE | 2017-05-07 13:04 | PCM.PN.SRG ---
Subjective: Postop #2 and #5 Patient is resting comfortably. Tolerated Silver dressing change reasonably well. - Physical Exam General: Alert, Oriented x3 HEENT: PERRLA, EOMI Neck: Supple Lungs: Clear to auscultation Cardiovascular: Regular rate, Regular Rhythm Abdomen: Soft, Non-Distended Extremities: No clubbing, No cyanosis, No edema Skin: Ulcer/ Wound - right breast remains soft. The wounds are clean. Minimal drainage. Tolerated the dressing change reasonably well with Aquacel Silver. The areas of bruising along the edges show some improvement with no progression seen. The blistering was debrided in the OR and the underlying dermis is red and viable. Will continue to observe. The central aspect of the flap is viable and healing satisfactory thus far., Incision - Abdominal incision is dry and intact and healing satisfactory. Neurological: Cranial nerves II-XII grossly intact Psych/Mental Status: Normal Affect, Appropriate Vital Signs Temp Pulse Resp BP Pulse Ox 97.9 F 104 H 16 105/62 97 05/07/17 09:00 05/07/17 09:00 05/07/17 09:00 05/07/17 09:00 05/07/17 09:00 Oxygen Flow Rate 2 Oxygen Delivery Method Room Air Weight: 178 lb 12.718 oz Body Mass Index (BMI) 33.7 Intake and Output for Last 24 Hours 05/05/1705/06/18 05/07/17 23:59 23:59 23:59 Intake Total 2867 / 2867 2038 / 2038 584 / 584 Output Total 1705 / 1705 3220 / 3220 860 / 860 Balance 1162 / 1162 -1182 / -1182 -276 / -276 Drainage 220 ml yesterday. Assessment/Plan 1. Right breast cancer. 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 4. Disproportion reconstructed breasts. 5. Late effect radiation right breast. 6. Estrogen receptor status negative. 7. Former smoker. 8. s/p delayed right breast reconstruction with unipedicle contralateral TRAM flap and abdominal wall reconstruction with placement of Strattice acellular dermal matrix graft (100 cm2) and revision radiation scar contour deformity right breast with multiple W-plasties (40 cm2). 9. Anemia of chronic disease, acute on chronic. 10. Hematoma right breast reconstruction. 11. s/p surgical preparation right breast TRAM flap reconstruction with incision and drainage and evacuation hematoma. Patient feels better than before the hematoma surgery. Is not as tired. She was able to ambulate with assist in the hallway. TRAM flap is soft and has stabilized from the hematoma. The bruising at the edges of the incisions appear red with viable dermis at this point. Will continue to observe. The central aspect of the flap is viable and healing satisfactory. She tolerated the dressing change well with Aquacel Silver. No bleeding seen. Hgb stable at 10.5 after 2 units of PRBC. Will send the patient home on iron supplements. Prealbumin from 05/03/17 was 19.5. Encourage nutritional supplementation with protein to help the healing process.
[2017-05-07 14:21] VITALS: BP 111/70; PULSE 102; RESP 16; TEMP 36.6; O2SAT 98
[2017-05-07 21:09] VITALS: BP 117/94; PULSE 100; RESP 14; TEMP 36.9; O2SAT 99
[2017-05-08 02:47] VITALS: BP 107/61; PULSE 96; RESP 16; TEMP 36.9; O2SAT 98
[2017-05-08] MEDS: 0.9% NaCl Peripheral Flush Adult/Peds IV ×2 (03:04→15:48)
[2017-05-08] MEDS: HYDROmorphone 1 MG/ML Syringe IV ×4 (03:04→19:48)
[2017-05-08] MEDS: Enoxaparin 40 MG/0.4 ML Syringe SC (06:22)
[2017-05-08] MEDS: Cefazolin 1 GM/50 ML BAG IV ×3 (06:22→22:13)
[2017-05-08] MEDS: Docusate Sodium 100 MG Capsule PO ×2 (07:57→22:13)
[2017-05-08] MEDS: Meloxicam 15 MG Tablet PO (07:57)
[2017-05-08] MEDS: Sertraline 50 MG Tablet 150 MG PO (07:57)
[2017-05-08] MEDS: Calcium Carb/Vitamin D 1 TABLET Tablet PO (07:58)
[2017-05-08] MEDS: oxyCODONE 5 MG Tablet 10 MG PO ×3 (07:59→17:11)
[2017-05-08 08:00] VITALS: BP 110/65; PULSE 84; RESP 16; TEMP 36.9; O2SAT 100
[2017-05-08 12:00] VITALS: BP 107/74; PULSE 96; RESP 16; TEMP 36.7; O2SAT 97
[2017-05-08] MEDS: Bisacodyl 10 MG Suppository RECTAL (12:00)
--- NOTE | 2017-05-08 12:02 | CASEMGMT ---
Transition Planning: DOUGIE GALEANO met with patient to discuss home health care. Patient reports she's not sure if she is going to need home health care, patient states if I was discharged today, I would need it. DOUGIE GALEANO asked if the patient had a preferred provider. Patient states I can't remember who I had last time. Just pick one. DOUGIE GALEANO checked patient's in-network providers and noted [facility] and [facility]. DOUGIE GALEANO faxed and called referral to [facility]. Await confirmation of acceptance.
--- NOTE | 2017-05-08 17:32 | PCM.PN.SRG ---
Subjective: Postop #3 and #6 Patient is resting comfortably. She is tired at times and sleeps a lot. She is ambulating with assist. - Physical Exam General: Alert, Oriented x3 HEENT: PERRLA, EOMI Neck: Supple Lungs: Clear to auscultation Cardiovascular: Regular rate, Regular Rhythm Abdomen: Soft, Non-Distended Extremities: No clubbing, No cyanosis, No edema Skin: Ulcer/ Wound - right breast remains soft. The wounds are clean. Minimal drainage. Tolerated the dressing change reasonably well with Aquacel Silver. Some of the areas of bruising along the edges show some improvement with no progression seen. The inferior bruising is starting to develop a dry eschar. Will need eventual debridement. Will observe and await further demarcation. The blistering that was debrided in the OR shows viable dermis. The central aspect of the flap is viable and healing satisfactory thus far., Incision - Abdominal incision is dry and intact and healing satisfactory. Neurological: Cranial nerves II-XII grossly intact Psych/Mental Status: Normal Affect, Appropriate Vital Signs Temp Pulse Resp BP Pulse Ox 98.1 F 96 16 107/74 97 05/08/17 12:00 05/08/17 12:00 05/08/17 12:00 05/08/17 12:00 05/08/17 12:00 Oxygen Flow Rate 2 Oxygen Delivery Method Room Air Weight: 178 lb 12.718 oz Body Mass Index (BMI) 33.7 Intake and Output for Last 24 Hours 05/05/17 05/06/17 05/07/17 23:59 23:59 23:59 Intake Total 2867 / 2867 2038 / 2038 1414 / 1414 Output Total 1705 / 1705 3220 / 3220 1680 / 1680 Balance 1162 / 1162 -1182 / -1182 -266 / -266 Drainage 280 ml yesterday. Assessment/Plan 1. Right breast cancer. 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 4. Disproportion reconstructed breasts. 5. Late effect radiation right breast. 6. Estrogen receptor status negative. 7. Former smoker. 8. s/p delayed right breast reconstruction with unipedicle contralateral TRAM flap and abdominal wall reconstruction with placement of Strattice acellular dermal matrix graft (100 cm2) and revision radiation scar contour deformity right breast with multiple W-plasties (40 cm2). 9. Anemia of chronic disease, acute on chronic. 10. Hematoma right breast reconstruction. 11. s/p surgical preparation right breast TRAM flap reconstruction with incision and drainage and evacuation hematoma. Patient resting comfortably. Is not as tired. Slowly getting stronger each day. She was able to ambulate with assist in the hallway. TRAM flap is soft. The wounds are clean. Minimal drainage. Some of the areas of bruising along the edges show some improvement with no progression seen. The inferior bruising is starting to develop a dry eschar. Will need eventual debridement. Will observe and await further demarcation. The blistering that was debrided in the OR shows viable dermis. The central aspect of the flap is viable and healing satisfactory thus far. She tolerated the dressing change reasonably well with Aquacel Silver. No bleeding seen. She states the dressing change has more pressure pain than before but is tolerable. I would like to see the flap maintain its stability before discharge to make sure further operative intervention is not needed. Hgb stable at 10.5 after 2 units of PRBC. Will send the patient home on iron supplements. Prealbumin from 05/03/17 was 19.5. Encourage nutritional supplementation with protein to help the healing process.
[2017-05-08 21:44] VITALS: BP 102/65; PULSE 93; RESP 16; TEMP 36.5; O2SAT 97
[2017-05-09 02:43] VITALS: BP 97/70; PULSE 92; RESP 16; TEMP 36.8; O2SAT 96
[2017-05-09] MEDS: oxyCODONE 5 MG Tablet 10 MG PO ×4 (03:10→17:30)
[2017-05-09] MEDS: Enoxaparin 40 MG/0.4 ML Syringe SC (05:58)
[2017-05-09] MEDS: Cefazolin 1 GM/50 ML BAG IV ×3 (05:58→21:44)
[2017-05-09 08:43] VITALS: BP 111/45; PULSE 86; RESP 16; TEMP 36.7; O2SAT 98
--- NOTE | 2017-05-09 10:28 | CASEMGMT ---
Addendum entered by Shantanu Sharma 05/09/17 13:32: Call to see if [facility] is confirmed through [facility]. Message left, they are still processing. Green sheet is on chart- will need to confirm with [facility] that they can see pt tomorrow if dc plan is today. RN CM can f/u tomorrow if pt is not dc'd today. Original Note: Intro role of CM to patient. Discussed Home health, pt is agreeble. [facility] does not have nurse in today, cannot confirm home health. Call to [facility] , fx . Referral faxed. ~need face to face signed by Dr. Ahn ~script for supplies signed by Dr. Ahn ~order entered for what kind of dressing changes @ home and frequency. ([facility] nurse notified) Tray YOON RN ACM
[2017-05-09] MEDS: Sertraline 50 MG Tablet 150 MG PO (10:39)
[2017-05-09] MEDS: HYDROmorphone 1 MG/ML Syringe IV ×2 (10:39→18:18)
[2017-05-09] MEDS: Docusate Sodium 100 MG Capsule PO ×2 (10:39→21:44)
[2017-05-09] MEDS: 0.9% NaCl Peripheral Flush Adult/Peds IV ×4 (10:39→21:49)
[2017-05-09] MEDS: NIFEdipine 30 MG Tablet PO (10:39)
[2017-05-09] MEDS: Calcium Carb/Vitamin D 1 TABLET Tablet PO (10:40)
[2017-05-09] MEDS: Meloxicam 15 MG Tablet PO (10:40)
--- NOTE | 2017-05-09 14:32 | CASEMGMT ---
Call received from Idania with [facility] ([phone] ext [phone]). they can accept pt with start of care on . Pt will remain in hospital today with dressing change to be completed tomorrow prior to dc is medically stable. Tray QUARLESN RN ACM
[2017-05-09 14:45] VITALS: BP 102/74; PULSE 99; RESP 18; TEMP 37.2; O2SAT 99
--- NOTE | 2017-05-09 19:19 | PCM.PN.SRG ---
Subjective: Postop #4 and #7 She is resting comfortably. Feels less tired. She feels better with the dressing change. She is getting more used to the pressure discomfort. - Physical Exam General: Alert, Oriented x3 HEENT: PERRLA, EOMI Neck: Supple Lungs: Clear to auscultation Cardiovascular: Regular rate, Regular Rhythm Abdomen: Soft, Non-Distended Extremities: No clubbing, No cyanosis, No edema Skin: Ulcer/ Wound - right breast remains soft. The wounds are clean. Minimal drainage. Has pressure discomfort with the Silver dressing change but is tolerable. Some of the areas of bruising along the edges show some improvement with no progression seen. The inferior bruising is starting to develop a dry eschar. The eschar is stable. No progression noted. Will need eventual debridement. Will observe and await further demarcation. The blistering that was debrided in the OR shows viable dermis. The central aspect of the flap is viable and healing satisfactory thus far., Incision - Abdominal incision is dry and intact and healing satisfactory. Neurological: Cranial nerves II-XII grossly intact Psych/Mental Status: Normal Affect, Appropriate Vital Signs Temp Pulse Resp BP Pulse Ox 98.9 F 99 18 102/74 99 05/09/17 14:45 05/09/17 14:45 05/09/17 14:45 05/09/17 14:45 05/09/17 14:45 Oxygen Flow Rate 2 Oxygen Delivery Method Room Air Weight: 178 lb 12.718 oz Body Mass Index (BMI) 33.7 Intake and Output for Last 24 Hours 05/07/17 05/08/17 05/09/17 23:59 23:59 23:59 Intake Total 1414 / 1414 865 / 865 1900 / 1900 Output Total 1680 / 1680 290 / 290 142 / 142 Balance -266 / -266 575 / 575 1758 / 1758 Drainage 290 ml yesterday. Assessment/Plan 1. Right breast cancer. 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 4. Disproportion reconstructed breasts. 5. Late effect radiation right breast. 6. Estrogen receptor status negative. 7. Former smoker. 8. s/p delayed right breast reconstruction with unipedicle contralateral TRAM flap and abdominal wall reconstruction with placement of Strattice acellular dermal matrix graft (100 cm2) and revision radiation scar contour deformity right breast with multiple W-plasties (40 cm2). 9. Anemia of chronic disease, acute on chronic. 10. Hematoma right breast reconstruction. 11. s/p surgical preparation right breast TRAM flap reconstruction with incision and drainage and evacuation hematoma. Patient resting comfortably. Is not as tired. Slowly getting stronger each day. She is able to ambulate with assist in the hallway. TRAM flap is soft. The wounds are clean. Minimal drainage. Some of the areas of bruising along the edges show some improvement with no progression seen. The inferior bruising is starting to develop a dry eschar. The eschar is stable with no progression. No clinical evidence of infection. Will need eventual debridement. Will observe and await further demarcation. The blistering that was debrided in the OR shows viable dermis. The central aspect of the flap is viable and healing satisfactory thus far. She tolerated the dressing change reasonably well with Aquacel Silver. No bleeding seen. She states the dressing change has more pressure pain than before but is tolerable. Flap continues to show stability with no more progression of bruising and no more progression of eschar. Anticipate discharge tomorrow. Hgb stable at 10.5 after 2 units of PRBC. Will send the patient home on iron supplements. Prealbumin from 05/03/17 was 19.5. Encourage nutritional supplementation with protein to help the healing process.
[2017-05-09 20:45] VITALS: BP 139/69; PULSE 97; RESP 18; TEMP 36.8; O2SAT 97
[2017-05-09] MEDS: HYDROmorphone 2 MG TABLET PO (21:45)
[2017-05-10 02:45] VITALS: BP 108/60; PULSE 89; RESP 18; TEMP 36.6; O2SAT 95
[2017-05-10] MEDS: HYDROmorphone 2 MG TABLET PO (03:28)
[2017-05-10] MEDS: Cefazolin 1 GM/50 ML BAG IV ×2 (05:42→13:43)
[2017-05-10] MEDS: Enoxaparin 40 MG/0.4 ML Syringe SC (05:43)
[2017-05-10] MEDS: 0.9% NaCl Peripheral Flush Adult/Peds IV ×3 (05:43→13:43)
[2017-05-10] MEDS: Docusate Sodium 100 MG Capsule PO (07:47)
[2017-05-10] MEDS: Meloxicam 15 MG Tablet PO (07:47)
[2017-05-10] MEDS: Sertraline 50 MG Tablet 150 MG PO (07:48)
[2017-05-10] MEDS: NIFEdipine 30 MG Tablet PO (07:48)
[2017-05-10 07:54] VITALS: BP 107/67; PULSE 86; RESP 16; TEMP 36.8; O2SAT 96
--- NOTE | 2017-05-10 10:33 | CASEMGMT ---
Call received that [facility] cannot accept patient. Information faxed to [facility]anna @ [phone]. Updated pt who states her mother was a nursing department chairperson and would be able to learn dressing changes. Prescription for supplies and home health order with specific wound care instructions need to be completed by physician prior to dc. [facility] retail pharmacy does not fill dressing change prescriptions. Pt will need to have filled @ [facility]. Tray YOON RN ACM
[2017-05-10] MEDS: Ondansetron 4 MG/2 ML Vial IV (11:02)
[2017-05-10] MEDS: HYDROmorphone 1 MG/ML Syringe IV (11:03)
[2017-05-10] MEDS: Calcium Carb/Vitamin D 1 TABLET Tablet PO (12:03)
--- NOTE | 2017-05-10 13:56 | CASEMGMT ---
Addendum entered by Shantanu Sharma 05/10/17 14:07: pt's mother is visiting. discussed if she would be willing to learn and assist with dressing changes. She is able to stay and watch Dr. ahn change dressing. If mother is willing to do dressing changes at home- supplies can be sent home for tomorrow, script for supplies can be faxed to [facility] prior to dc and mother can pick them up tomorrow. Pt could be discharged, and f/u in physician office. (-if [facility] calls tomorrow and is able to follow pt, DOUGIE GALEANO can make arrangements and call pt tomorrow @ home.) Tray SHORT Original Note: Dr. Ahn notified script for supplies and home dressing change orders need to be written prior to dc. -DOUGIE GALEANO called to [place]. Referral has not been reviewed yet. Will return call when RN has reviewed case. -Script for supplies will need to be faxed to [facility] on discharge. Tray SHORTM
--- NOTE | 2017-05-10 14:54 | PN.SURG_ITS ---
Subjective: Postop #5 and #8 Patient is resting comfortably. She is anxious to go home. - Physical Exam General: Alert, Oriented x3 HEENT: PERRLA, EOMI Neck: Supple Lungs: Clear to auscultation Cardiovascular: Regular rate, Regular Rhythm Abdomen: Soft, Non-Distended Extremities: No clubbing, No cyanosis, No edema Skin: Ulcer/ Wound - right breast remains soft. The wounds are clean. Minimal drainage. Has pressure discomfort with the Silver dressing change but is tolerable. Some of the areas of bruising along the edges show some improvement with no progression seen. The inferior bruising has developed a dry eschar. The eschar is stable. No progression noted. Will need eventual debridement. Will observe and await further demarcation. The central aspect of the flap is viable and healing satisfactory thus far., Incision - Abdominal incision is dry and intact and healing satisfactory. Neurological: Cranial nerves II-XII grossly intact Psych/Mental Status: Normal Affect, Appropriate Vital Signs Temp Pulse Resp BP Pulse Ox 98.2 F 86 16 107/67 96 05/10/17 07:54 05/10/17 07:54 05/10/17 07:54 05/10/17 07:54 05/10/17 07:54 Oxygen Flow Rate 2 Oxygen Delivery Method Room Air Weight: 178 lb 12.718 oz Body Mass Index (BMI) 33.7 Intake and Output for Last 24 Hours 05/08/1718 05/10/17 23:59 23:59 23:59 Intake Total 865 / 865 1900 / 1900 814 / 814 Output Total 290 / 290 142 / 142 55 / 55 Balance 575 / 575 1758 / 1758 759 / 759 Drainage 142 ml yesterday. Assessment/Plan 1. Right breast cancer. 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 4. Disproportion reconstructed breasts. 5. Late effect radiation right breast. 6. Estrogen receptor status negative. 7. Former smoker. 8. s/p delayed right breast reconstruction with unipedicle contralateral TRAM flap and abdominal wall reconstruction with placement of Strattice acellular dermal matrix graft (100 cm2) and revision radiation scar contour deformity right breast with multiple W-plasties (40 cm2). 9. Anemia of chronic disease, acute on chronic. 10. Hematoma right breast reconstruction. 11. s/p surgical preparation right breast TRAM flap reconstruction with incision and drainage and evacuation hematoma. Patient resting comfortably. Is not as tired. Slowly getting stronger each day. She is able to ambulate with assist in the hallway. TRAM flap is soft. The wounds are clean. Minimal drainage. The inferior bruising has developed a dry eschar. The eschar is stable with no progression. No clinical evidence of infection. Will need eventual debridement. Will observe and await further demarcation. The central aspect of the flap is viable and healing satisfactory thus far. She tolerated the dressing change reasonably well with Aquacel Silver. No bleeding seen. She states the dressing change has more pressure pain than before but is tolerable. Hgb stable at 10.5 after 2 units of PRBC. Will send the patient home on iron supplements. Prealbumin from 05/03/17 was 19.5. Encourage nutritional supplementation with protein to help the healing process. The dressing changes for the flap wound is stable. Discharge home today. There has been difficulty with getting Home Health for the dressing changes. Will have her come to my office for the dressing changes. When I am seeing her in the office, I will decide when to send her to the [facility] Center for continued wound care and to be evaluated for HBO treatments to help salvage the flap and for the soft tissue radionecrosis. Wrote a script for Doxycycline until the abdominal drain is removed. Wrote scripts for Percocet for pain (60 tabs) and for Valium for spasm (30 tabs) . Wrote scripts for Phenergan for nausea (30 tabs) with a refill and for Colace for constipation (60 tabs). Followup office tomorrow 05/11/17 for a dressing change.
--- NOTE | 2017-05-10 15:03 | PCM.DC ---
- Discharge Diagnoses Current Active Problems: Current Active and Chronic Problems (Last Updated 02/28/17 @ 15:15 by Fernanda Polk) Partial loss of skin graft (Acute) Compromised TRAM flap right breast reconstruction with partial loss 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 Discharge Activity: May not drive while taking narcotic pain medications., May Not Shower - until after the drain is removed in the office. she has well water and should keep the right breast dry and away from well water as best as you can. May wash the right breast wound with soap and distilled water or saline., - - keep head elevated. no heavy lifting. May shower in (days): 10 - may shower after the drain is removed in the office but keep the right breast dry when showering. May resume sexual activity in: 10-14 days Weight Bearing Status: Weight bearing as tolerated Lifting Restrictions: 20 lbs. Keep extremity elevated above heart level: - - elevate head. Call your doctor if your incision/area has: Continuous Slow Oozing, Sudden Increased Bleeding, Increased Pain/ Swelling, Increased Redness, Foul Smelling Discharge, Swelling at the incision site Call your doctor if you observe: Fever of 101 or Higher, Coldness, Increased Pain, Shortness of breath, Chest pain, Calf discomfort, Uncontrolled pain Suture Line Care: - - daily dressing changes to the right breast with Aquacel Silver. Patient to come to the office for the dressing changes until the family feels comfortable doing them at home as home health was not available at this time. Change Dressing in (Days):: 1 - patient will come to the office for the dressing changes. Cleanse incision/area with: - - may shower after the drain is removed in the office. when showering keep the right breast dry due to well water. may wash the right breast separately with soap and distilled water or saline. Drain: Suction - amrit drain to bulb suction. empty and record output daily. Allergies/Adverse Reactions: Allergies POULTRY Allergy (Uncoded 04/25/17 08:44) Anaphylaxis Medications to take at Discharge Sertraline HCl [Zoloft] 150 mg PO DAILY 01/11/16 Trazodone HCl 50 mg PO QHS 04/20/16 Amlodipine [Norvasc] 5 mg PO DAILY PRN 04/25/17 Calcium Carbonate/Vitamin D3 [Calcium 500-Vit D3 600 Tablet] 1 each PO DAILY 04/25/17 Meloxicam [Mobic] 15 mg PO DAILY 04/25/17 Diazepam [Valium] 5 mg PO 4X/DAY PRN PRN #30 tab 05/10/17 Docusate Sodium [Colace] 100 mg PO BID #60 cap 05/10/17 Doxycycline [Vibramycin] 100 mg PO BID #28 cap 05/10/17 Oxycodone HCl/Acetaminophen [Percocet 5/325] 1 - 2 tab PO 4X/DAY PRN PRN 7 Days #60 tab 05/10/17 ProMETHAzine [Phenergan] 25 mg PO 4X/DAY PRN PRN #30 tab 05/10/17 The following prescriptions were given: Diazepam [Valium] 5 mg PO 4X/DAY PRN PRN #30 tab PRN Reason: Spasms Oxycodone HCl/Acetaminophen [Percocet 5/325] 1 - 2 tab PO 4X/DAY PRN PRN 7 Days #60 tab PRN Reason: Pain ProMETHAzine [Phenergan] 25 mg PO 4X/DAY PRN PRN #30 tab PRN Reason: NAUSEA/VOMITING Docusate Sodium [Colace] 100 mg PO BID #60 cap Doxycycline [Vibramycin] 100 mg PO BID #28 cap Primary Care Physician: Josué Price MD [Primary Care Provider] - Please Follow Up With: Junior Ahn MD - call [phone] if questions. When: tomorrow 05/11/17 at 1100 am. Proposed Discharge Date: 05/10/17
--- NOTE | 2017-05-10 15:11 | DS.PCM_ITS ---
Discharge Date and Diagnosis Date of Admission: 05/02/17 Date of Discharge: 05/10/17 - Primary Discharge Diagnosis Right breast cancer. Compromised TRAM flap right breast reconstruction with partial loss. Postop hematoma right TRAM flap breast reconstruction. Anemia of chronic disease, acute on chronic. 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 Disproportion reconstructed breasts. Cancerphobia left breast. Smoker, quit for the surgery. Estrogen receptor negative status [ER-]. Hospital Course and Treatment Imaging Results: None. CONSULTATIONS None. Operations: - - 05/02/17 - 1. Delayed right breast reconstruction with unipedicle contralateral TRAM flap. 2. Abdominal wall reconstruction with placement of Strattice acellular dermal matrix graft (100 cm2). 3. Revision radiation scar contour deformity right breast with multiple W-plasties (40 cm2) . 05/05/17 - Surgical preparation right breast TRAM flap reconstruction with incision and drainage and evacuation hematoma. Procedures: Blood transfusion Summary of Care Provided: The patient is a 47 year old F who presented for evaluation breast reconstruction. Her initial bilateral mastectomy was on 01/12/16. She underwent IV chemotherapy initially and this was followed by radiation therapy to the right breast. She finished the radiation therapy in 10/03. She states that during this adjuvant therapy, she has gained a little weight and has developed some extra tissue in the lower anterior abdominal wall. The last time I saw her in 03/04, she was interested in breast reconstruction with placement of implants. Now she is contemplating the use of autogenous tissue for the radiated right breast. She denies any fever. She states she has stopped smoking since her diagnosis of breast cancer. On 05/02/17, the patient underwent delayed right breast reconstruction with unipedicle contralateral TRAM flap and abdominal wall reconstruction with placement of Strattice acellular dermal matrix graft (100 cm2) and revision radiation scar contour deformity right breast with multiple W-plasties (40 cm2) . Patient tolerated the procedure well. Due to the length of the procedure, postop Lovenox was given daily. On the first postop day, there was minor bruising at the edges of the flap. The flap was soft. She had coughing issues from her history of smoking. Breathing treatments were started which helped to resolve the coughing. However with the breathing treatments and postop pain, her pulse increased initially. When the breathing treatments were stopped, the pulse decreased back to the 90's. Her Hgb was 10.8. Some of the decrease was from operative blood loss and IV dilution (about 4 liters). She was able to stand on this day. Prealbumin was 19.5. Encourage nutritional supplementation with protein to help the healing process. On the second postop day, her Hgb decreased to 9.4. Patient stated she had vitamins with iron at home to take and will followup with her PCP about evaluation for her chronic anemia. She was able to walk in her room on this day. The encinsa was removed and she was able to void without difficulty. There was no progression of the minor bruising at the edges of the flap, and the flap remained soft. On the third postop day, she felt tired and looked pale. Her Hgb had decreased to 7.8. The breast was firm and swollen. There was more moderate bruising. The patient developed a hematoma and was taken to the OR on this day and underwent surgical preparation right breast TRAM flap reconstruction with incision and drainage and evacuation hematoma. Besides evacuating the hematoma , operative intervention was done to take pressure off the blood supply to the flap. This will help the salvage the flap. 2 units of PRBC was also given. The wound was left open and dressing changes with Silver dressings was started. Discussed with the patient that VAC may be used in the future. After surgery , the flap was soft. Also on this day, the one abdominal drain had almost come out, and I removed it since it was draining around the tube. Will remove the other abdominal drain in the office. Discussed with the patient that because of the length of the surgery, Lovenox is necessary to give to minimize blood clots and PE. However, with the added protection comes the risk of bleeding from the Lovenox. The important thing is to recognize the risk and take care of the bleeding if it occurs to minimize further damage and compromise to the flap. On the fourth postop day, there was improvement in the bruising. Some of the blistering was debrided in the OR and the underlying dermis appeared more viable. The central aspect of the flap was soft and viable. Her Hgb improved to 10.5 after the PRBC. On the sixth postop day, there was some dry eschar forming inferiorly. It remained stable the rest of the hospitalization. No progression of the eschar was noted. There was no clinical evidence of infection. The flap remained soft as well. The central aspect of the flap remained viable. The patient developed increased discomfort with the dressing changes because of pressure from the packing. She was able to tolerate the dressing changes reasonably well in anticipation of discharge on the eighth postop day on 05/10/17. Her drainage output from both the breast and the abdomen ranged from a high of 645 ml on the first postop day to 55 ml on the day of discharge. There was trouble getting Home Health set up because of insurance issues. Therefore I decided to see the patient in my office initially for the dressing changes and as needed debridement. Discussed with the patient that the plan is to continue the wound care and as needed debridement. Also in the office, if I think an infection is developing, a wound culture will be obtained and, if positive, antibiotics would be started. At some point, may consider the VAC. I will see in my office until I decide to see her at the Wound Center for continued wound care and to be evaluated for HBO treatments to help salvage the compromised flap and to help with soft tissue radionecrosis. When stabilized, will assess the extent of the remaining wound deformity to decide on further revision reconstruction with another flap (latissimus dorsi myocutaneous flap). Wrote a script for Doxycycline until the abdominal drain is removed. Wrote scripts for Percocet for pain (60 tabs) and for Valium for spasm (30 tabs) . Wrote scripts for Phenergan for nausea (30 tabs) with a refill and for Colace for constipation (60 tabs). Followup office tomorrow 05/11/17 for a dressing change. Condition upon discharge stable. Discharge Diet: No Restrictions, - - encourage nutritional supplementation with protein to help the healing process. Discharge Activity: May not drive while taking narcotic pain medications., May Not Shower - until after the drain is removed in the office. she has well water and should keep the right breast dry and away from well water as best as you can. May wash the right breast wound with soap and distilled water or saline., - - keep head elevated. no heavy lifting. May shower in (days): 10 - may shower after the drain is removed in the office but keep the right breast dry when showering. May resume sexual activity in: 10-14 days Weight Bearing Status: Weight bearing as tolerated Keep extremity elevated above heart level: - - elevate head. Call your doctor if your incision/area has: Continuous Slow Oozing, Sudden Increased Bleeding, Increased Pain/ Swelling, Increased Redness, Foul Smelling Discharge, Swelling at the incision site Call your doctor if you observe: Fever of 101 or Higher, Coldness, Increased Pain, Shortness of breath, Chest pain, Calf discomfort, Uncontrolled pain Suture Line Care: - - daily dressing changes to the right breast with Aquacel Silver. Patient to come to the office for the dressing changes until the family feels comfortable doing them at home as home health was not available at this time. Change Dressing in (Days):: 1 - patient will come to the office for the dressing changes. Cleanse incision/area with: - - may shower after the drain is removed in the office. when showering keep the right breast dry due to well water. may wash the right breast separately with soap and distilled water or saline. Drain: Suction - amrit drain to bulb suction. empty and record output daily. Home Medications: Medications to take at Discharge Sertraline HCl [Zoloft] 150 mg PO DAILY 01/11/16 Trazodone HCl 50 mg PO QHS 04/20/16 Amlodipine [Norvasc] 5 mg PO DAILY PRN 04/25/17 Calcium Carbonate/Vitamin D3 [Calcium 500-Vit D3 600 Tablet] 1 ea PO DAILY 04/25 Meloxicam [Mobic] 15 mg PO DAILY 04/25/17 Diazepam [Valium] 5 mg PO 4X/DAY PRN PRN #30 tab 05/10/17 Docusate Sodium [Colace] 100 mg PO BID #60 cap 05/10/17 Doxycycline [Vibramycin] 100 mg PO BID #28 cap 05/10/17 Oxycodone HCl/Acetaminophen [Percocet 5/325] 1 - 2 tab PO 4X/DAY PRN PRN 7 Days #60 tab 05/10/17 ProMETHAzine [Phenergan] 25 mg PO 4X/DAY PRN PRN #30 tab 05/10/17 diazepam 5 mg tablet See Label Instructions PO BID PRN #30 tab 05/13/17 Following Prescrptions Were Given to Patient: Diazepam [Valium] 5 mg PO 4X/DAY PRN PRN #30 tab PRN Reason: Spasms Oxycodone HCl/Acetaminophen [Percocet 5/325] 1 - 2 tab PO 4X/DAY PRN PRN 7 Days #60 tab PRN Reason: Pain ProMETHAzine [Phenergan] 25 mg PO 4X/DAY PRN PRN #30 tab PRN Reason: NAUSEA/VOMITING Docusate Sodium [Colace] 100 mg PO BID #60 cap Doxycycline [Vibramycin] 100 mg PO BID #28 cap Primary Care Physician: Josué Price MD [Primary Care Provider] - Please Follow Up With: Junior Ahn MD - call [phone] if questions. When: tomorrow 05/11/17 at 1100 am. Disposition: Home Minutes spent on discharge:: 35 Patient Condition:: Stable Meaningful Use Info Meaningful Use Diagnoses (Choose all that apply): None applicable
--- NOTE | 2017-05-11 08:45 | CASEMGMT ---
Call received from [facility]. They are able to take patient, notified pt was dc'd yesterday and Dr. Ahn will change dressing in office if needed today. DC Summary and DC Instructions faxed to [place]. they will call patient and arrange start of care. Tray QUARLESN RN AC
== END 2017-05-10 16:42 | disposition home or self-care (01) | DRG 261 ==
LOC: ACINP 06:53 → MS2 09:42
PROVIDERS: Anesthesiology; Admitting Provider Surgery; Family Provider Internal Medicine; PCP Internal Medicine; Visit Provider Surgery
PROC: 0KXL0Z6 Transfer Left Abdomen Muscle, Transverse Rectus Abdominis Myocutaneous Flap, Open Approach (ICD-10-PCS; principal; 2017-05-02 09:30)
PROC: 0HCT0ZZ Extirpation of Matter from Right Breast, Open Approach (ICD-10-PCS; principal; 2017-05-05 12:45)
DX: Z42.1 Encounter for breast reconstruction following mastectomy (principal); D63.8 Anemia in other chronic diseases classified elsewhere; L76.32 Postprocedural hematoma of skin and subcutaneous tissue following other procedure; Z85.3 Personal history of malignant neoplasm of breast; Z90.13 Acquired absence of bilateral breasts and nipples; Z87.891 Personal history of nicotine dependence; L59.8 Other specified disorders of the skin and subcutaneous tissue related to radiation; Y83.4 Other reconstructive surgery as the cause of abnormal reaction of the patient, or of later complication, without mention of misadventure at the time of the procedure
CPT/HCPCS: 36415; 80048; 82962; 84134; 85018; 85025; 85027; 85610; 85730; 86850; 86900; 86920; 86922; 88305; 94640; 97802; J7040; J7120; P9016; A4216; C1781; J2405; J3490

== ENCOUNTER → 2017-05-15 18:10 | Outpatient (CLI) | payer MEDICAID, SELFPAY | PROVIDERS: Family Provider Internal Medicine; PCP Internal Medicine; Visit Provider Surgery | DX: C50.911 Malignant neoplasm of unspecified site of right female breast (principal); T66.XXXS Radiation sickness, unspecified, sequela; T86.828 Other complications of skin graft (allograft) (autograft); N65.1 Disproportion of reconstructed breast; Z90.13 Acquired absence of bilateral breasts and nipples | CPT/HCPCS: 87070; 87075; 87205 ==

== ENCOUNTER 2017-05-19 10:33 | Inpatient (IN) | payer MEDICAID, SELFPAY ==
[2017-05-19 10:45] VITALS: BMI 33.6
[2017-05-19 11:09] VITALS: BP 101/65; PULSE 95; RESP 18; TEMP 36.7; O2SAT 98
[2017-05-19 11:24] VITALS: BMI 33.6
--- NOTE | 2017-05-19 12:14 | PCM.PN.SRG ---
Subjective: DATE OF PREVIOUS HISTORY AND PHYSICAL - May 01, 2017. DATE OF PREVIOUS SURGERY - May 02, 2017. Postop #17 Hospital day #1 Patient came to my office today with complaints of increasing pain in her right breast and having fever at home of 100.5. She also states she feels tired and cruddy. Breast reconstruction infection was suspected because of the compromised TRAM flap and admission to the hospital was recommended with placement on IV antibiotics. Also more aggressive wound care will be started with Dakin's because the Silver dressing changes have been drying out the wound. - Physical Exam General: Alert, Oriented x3 HEENT: PERRLA, EOMI Neck: Supple Lungs: Clear to auscultation Cardiovascular: Regular rate, Regular Rhythm Abdomen: Soft, Non-Distended Skin: Ulcer/ Wound - Right breast reconstruction wound shows a centralized flap that appears viable at this time. The edges are a little dried out with some eschar. There has been some eschar around the edges of the flap that have already been debrided in the office. Some tenderness to palpation. No purulent drainage noted. Lymphatic: - - no axillary adenopathy. Neurological: Cranial nerves II-XII grossly intact Psych/Mental Status: Normal Affect, Appropriate Vital Signs Temp Pulse Resp BP Pulse Ox 98.1 F 95 18 101/65 98 05/19/17 11:09 05/19/17 11:09 05/19/17 11:09 05/19/17 11:09 05/19/17 11:09 Oxygen Delivery Method Room Air Weight: 178 lb Body Mass Index (BMI) 33.6 Assessment/Plan 1. Compromised TRAM flap wound right breast reconstruction. 2. Right breast cancer. 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 5. Disproportion reconstructed breasts. 6. Late effect radiation right breast. 7. Estrogen receptor status negative. 8. Former smoker. 9. s/p delayed right breast reconstruction with unipedicle contralateral TRAM flap and abdominal wall reconstruction with placement of Strattice acellular dermal matrix graft (100 cm2) and revision radiation scar contour deformity right breast with multiple W-plasties (40 cm2). 10. s/p surgical preparation right breast TRAM flap reconstruction with incision and drainage and evacuation hematoma. Recommend admission to the hospital and will start IV antibiotics with Zosyn. Wound culture was obtained. Will also check a MRSA DNA PCR. If positive, will add Vancomycin. Will change the wound care from Silver dressings to Dakin's dressings twice a day. Encourage nutritional supplementation with protein to help the healing process. Will check a Prealbumin. Depending on the cultures, may need a PICC line and IV antibiotics when discharged. I want to be aggressive with treatment of any positive cultures to minimize further compromise to the TRAM flap. The goal is to try and salvage as much of the TRAM flap as possible which will help with additional revision reconstruction surgery in the future. However, depending on the healing of this compromised TRAM flap, further compromise may be evident at which time further debridement would be necessary which may include debridement of the rest of the flap. At that point, a wound VAC would be started and the patient would start HBO treatments because of her history of radiation damage with the idea of stabilizing and shrinking the size of the wound a little bit before embarking on further breast reconstruction surgery. The most likely salvage flap would be the latissimus dorsi flap. A microvascular free tissue transfer flap is also a possibility for salvage but would necessitate going to a tertiary center. The patient is interested in staying local at this time.
[2017-05-19 13:11] LABS: Hematocrit 32.1 % (37-47); Hemoglobin 10.8 g/dl (12.0-15.0); Mean Corp Hgb Conc 33.6 g/gl (32-36); Mean Corpuscular Hgb 30.2 pg (27.0-32.0); Mean Corpuscular Volume 89.7 fL (81-99); Mean Platelet Vol. 8.5 fl (6.2-12.0); Platelet Count 242 K/mm3 (150-450); RBC Distribution Width CV 12.9 % (11.6-14.6); Red Blood Count 3.58 M/mm3 (4.2-5.4); White Blood Count 6.6 K/mm3 (4.4-11.0)
[2017-05-19] MEDS: Lactated Ringers 1,000 ML 60 ML IV (13:16)
[2017-05-19] MEDS: HYDROmorphone 1 MG/ML Syringe IV ×3 (13:17→18:42)
[2017-05-19 13:23] LABS: ALB/GLOB Ratio 0.8 RATIO (0.9-2.4); AST(SGOT) 19 U/L (15-37); Alanine Aminotransfer ALT/SGPT 25 U/L (13-56); Albumin, Serum 2.9 g/dL (3.2-5.0); Alkaline Phosphatase 141 U/L (45-117); Anion Gap 7 (5-15); BUN 13 mg/dL (7-18); BUN/Creat Ratio 17.5 RATIO (10-20); Calcium,Total 8.7 mg/dL (8.5-10.1); Chloride 106 mmol/L (98-107); Creatinine, Serum 0.74 mg/dL (0.55-1.02); EST Glomerular Filtration Rate 89 mL/min (>60); Est Glom Filt Rate - Afr Amer 107 mL/min (>60); Estimated Creatinine Clearance 70.16 ml/min; Globulin 3.6 g/dL (2.2-4.2); Glucose 89 mg/dL (74-106); Potassium 4.2 mmol/L (3.5-5.1); Prealbumin 19.4 mg/dL (20.0-40.0); Protein, Total 6.5 g/dL (6.4-8.2); Sodium Level 140 mmol/L (136-145)
[2017-05-19 13:26] LABS: Erythrocyte Sedimentation Rate 57 mm/hr (0-20)
[2017-05-19 13:28] LABS: Scan Indicated on CBC? Y/N NO
[2017-05-19] MEDS: Piperacil/Tazobactam 3.375 GM/50 ML ML IV ×2 (13:47→22:01)
--- NOTE | 2017-05-19 14:40 | NURSING ---
wound photo: right breast
--- NOTE | 2017-05-19 14:45 | CASEMGMT ---
RN CM Face to Face with patient for initial transition planning/care coordination assessment. RN CM introduced self and role at [facility]. Patient lying in bed, alert and oriented, mother at bedside. Patient willing to participate in assessment and is able to answer all questions appropriately. Care providers, pharmacy, and demographics verified. See link attached. Patient wishes to discharge home and is undetermined if HHC is needed at this time. Pt states she has no further needs or concerns at this time. CM to follow for discharge planning needs that may arise. Disposition Plan: Patient to discharge home with family support and follow-up plans in place. RN CM will continue to monitor for need for HHC.
[2017-05-19] MEDS: Ondansetron 4 MG/2 ML Vial IV (15:07)
[2017-05-19] MEDS: 0.9% NaCl Peripheral Flush Adult/Peds IV ×2 (15:07→18:42)
[2017-05-19 16:50] LABS: M R Staph aureus DNA By PCR Negative (Negative); Probe Check PASS; Staph aureus DNA By PCR NEGATIVE (Negative)
[2017-05-19 21:00] VITALS: BP 115/80; PULSE 105; RESP 14; TEMP 36.4; O2SAT 98
[2017-05-19] MEDS: Docusate Sodium 100 MG Capsule PO (22:00)
[2017-05-19] MEDS: oxyCODONE 5 MG Tablet 10 MG PO (22:04)
[2017-05-20] MEDS: oxyCODONE 5 MG Tablet 10 MG PO ×3 (02:08→23:22)
[2017-05-20 02:11] VITALS: BP 108/78; PULSE 100; RESP 14; TEMP 36.9; O2SAT 98
[2017-05-20] MEDS: Ondansetron 4 MG/2 ML Vial IV ×2 (05:30→21:51)
[2017-05-20] MEDS: Lactated Ringers 1,000 ML 60 ML IV ×2 (05:32→22:12)
[2017-05-20] MEDS: Ibuprofen 600 MG Tablet PO (05:51)
[2017-05-20] MEDS: Piperacil/Tazobactam 3.375 GM/50 ML ML IV ×3 (05:52→21:43)
[2017-05-20 08:32] VITALS: BP 108/81; PULSE 91; RESP 16; TEMP 37.1; O2SAT 98
[2017-05-20 10:18] LABS: Hematocrit 34.3 % (37-47); Hemoglobin 11.7 g/dl (12.0-15.0); Mean Corp Hgb Conc 34.1 g/gl (32-36); Mean Corpuscular Hgb 30.5 pg (27.0-32.0); Mean Corpuscular Volume 89.3 fL (81-99); Mean Platelet Vol. 8.4 fl (6.2-12.0); Platelet Count 280 K/mm3 (150-450); RBC Distribution Width CV 12.3 % (11.6-14.6); RBC Distribution Width SD 39.4 fl (35.1-43.9); Red Blood Count 3.84 M/mm3 (4.2-5.4); Scan Indicated on CBC? Y/N NO; White Blood Count 6.9 K/mm3 (4.4-11.0)
[2017-05-20] MEDS: Doxycycline 100 MG CAPSULE PO ×2 (10:43→21:55)
[2017-05-20] MEDS: Sertraline 100 MG Tablet 150 MG PO (10:44)
[2017-05-20] MEDS: amLODIPine 5 MG Tablet PO (10:44)
[2017-05-20] MEDS: Docusate Sodium 100 MG Capsule PO ×2 (10:44→21:55)
[2017-05-20] MEDS: HYDROmorphone 1 MG/ML Syringe IV ×3 (10:56→21:42)
[2017-05-20 14:52] VITALS: BP 110/68; PULSE 88; RESP 16; TEMP 36.6; O2SAT 98
--- NOTE | 2017-05-20 19:48 | PCM.PN.SRG ---
Subjective: Postop #18, Hospital day #2 Patient feels a little better today. Patient initially came to my office yesterday with complaints of increasing pain in her right breast and having fever at home of 100.5. She also states she feels tired and cruddy. Breast reconstruction infection was suspected because of the compromised TRAM flap and admission to the hospital was recommended with placement on IV antibiotics with Zosyn. Also more aggressive wound care was started with Dakin's because the Silver dressing changes have been drying out the wound. She is tolerating the Dakin's dressing changes at this time. - Physical Exam General: Alert, Oriented x3 HEENT: PERRLA, EOMI Neck: Supple Lungs: Clear to auscultation Cardiovascular: Regular rate, Regular Rhythm Abdomen: Soft, Non-Distended Skin: Ulcer/ Wound - Right breast reconstruction wound shows a centralized flap that appears viable at this time. It feels warm. The edges are a little less dried out with a little more debridement of the eschar at the edges. There has been some eschar around the edges of the flap that have already been debrided in the office. Some tenderness to palpation. No purulent drainage noted. Lymphatic: - - no axillary adenopathy. Neurological: Cranial nerves II-XII grossly intact Psych/Mental Status: Normal Affect, Appropriate Vital Signs Temp Pulse Resp BP Pulse Ox 97.9 F 88 16 110/68 98 05/20/17 14:52 05/20/17 14:52 05/20/17 14:52 05/20/17 14:52 05/20/17 14:52 Oxygen Delivery Method Room Air Weight: 177 lb 15.984 oz Body Mass Index (BMI) 33.6 Intake and Output for Last 24 Hours 05/18/17 05/19/17 05/20/17 23:59 23:59 23:59 Intake Total 3763 / 3763 Output Total 2300 / 2300 Balance 1463 / 1463 Microbiology Past 72 Hours 05/19/17 14:15 Gram Stain - Final Wound Drainage - Aerobic & Anaerobic Swabs Wound Culture - Preliminary Mixed Gram Positive Organisms Laboratory Tests Past 24 Hrs 05/20/17 09:56 WBC 6.9 RBC 3.84 L Hgb 11.7 L Hct 34.3 L MCV 89.3 MCH 30.5 MCHC 34.1 RDW 12.3 RDW Differential 39.4 Plt Count 280 MPV 8.4 Assessment/Plan 1. Compromised TRAM flap wound right breast reconstruction. 2. Right breast cancer. 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 5. Disproportion reconstructed breasts. 6. Late effect radiation right breast. 7. Estrogen receptor status negative. 8. Former smoker. 9. s/p delayed right breast reconstruction with unipedicle contralateral TRAM flap and abdominal wall reconstruction with placement of Strattice acellular dermal matrix graft (100 cm2) and revision radiation scar contour deformity right breast with multiple W-plasties (40 cm2). 10. s/p surgical preparation right breast TRAM flap reconstruction with incision and drainage and evacuation hematoma. Continue IV antibiotics with Zosyn. Wound culture shows Mixed Gram positive organisms thus far. MRSA DNA PCR was negative. Continue Dakin's dressings twice a day. She is tolerating the dressing changes. Prealbumin was 19.4. Encourage nutritional supplementation with protein to help the healing process. Depending on the cultures, may need a PICC line and IV antibiotics when discharged. I want to be aggressive with treatment of any positive cultures to minimize further compromise to the TRAM flap. The ESR was 57 and the CRP was 41.80. The goal is to try and salvage as much of the TRAM flap as possible which will help with additional revision reconstruction surgery in the future. However, depending on the healing of this compromised TRAM flap, further compromise may be evident at which time further debridement would be necessary which may include debridement of the rest of the flap. At that point, a wound VAC would be started and the patient would start HBO treatments because of her history of radiation damage with the idea of stabilizing and shrinking the size of the wound a little bit before embarking on further breast reconstruction surgery. The most likely salvage flap would be the latissimus dorsi flap. A microvascular free tissue transfer flap is also a possibility for salvage but would necessitate going to a tertiary center. The patient is interested in staying local at this time.
[2017-05-20 21:00] VITALS: BP 111/62; PULSE 101; RESP 16; TEMP 36.8; O2SAT 97
[2017-05-20] MEDS: traZODone 50 MG Tablet PO (21:55)
[2017-05-21] MEDS: HYDROmorphone 1 MG/ML Syringe IV ×4 (02:48→20:37)
[2017-05-21 03:00] VITALS: BP 102/66; PULSE 99; RESP 18; TEMP 36.9; O2SAT 96
[2017-05-21] MEDS: Piperacil/Tazobactam 3.375 GM/50 ML ML IV ×3 (05:06→22:48)
[2017-05-21] MEDS: oxyCODONE 5 MG Tablet 10 MG PO ×3 (05:09→19:52)
[2017-05-21] MEDS: Calcium Carb/Vitamin D 1 TABLET Tablet PO (07:53)
[2017-05-21] MEDS: Acetaminophen 325 MG Tablet 650 MG PO (07:53)
[2017-05-21] MEDS: Sertraline 100 MG Tablet 150 MG PO (07:54)
[2017-05-21 09:29] VITALS: BP 102/61; PULSE 103; RESP 16; TEMP 36.8; O2SAT 96
[2017-05-21] MEDS: Docusate Sodium 100 MG Capsule PO ×2 (09:32→22:43)
[2017-05-21] MEDS: Doxycycline 100 MG CAPSULE PO ×2 (09:33→22:44)
[2017-05-21] MEDS: diazePAM 5 MG Tablet PO ×2 (14:07→23:13)
[2017-05-21] MEDS: Lactated Ringers 1,000 ML 60 ML IV (14:12)
[2017-05-21 15:29] VITALS: BP 101/61; PULSE 96; RESP 16; TEMP 37; O2SAT 95
--- NOTE | 2017-05-21 15:30 | NURSING ---
Patient requests limiting visitors to her Mother and Boyfriend only for the rest of the evening. Sign placed on door.
[2017-05-21] MEDS: 0.9% NaCl Peripheral Flush Adult/Peds IV (17:54)
--- NOTE | 2017-05-21 20:58 | PCM.PN.SRG ---
Subjective: Postop #19 Hospital day #3 Patient feels a little better today. Patient initially came to my office couple of days ago with complaints of increasing pain in her right breast and having fever at home of 100.5. She also states she feels tired and cruddy. Breast reconstruction infection was suspected because of the compromised TRAM flap and admission to the hospital was recommended with placement on IV antibiotics with Zosyn. Also more aggressive wound care was started with Dakin's because the Silver dressing changes have been drying out the wound. She is tolerating the Dakin's dressing changes at this time. Her WBC has been normal and she has been afebrile thus far. - Physical Exam General: Alert, Oriented x3 HEENT: PERRLA, EOMI Neck: Supple Lungs: Clear to auscultation Cardiovascular: Regular rate, Regular Rhythm Abdomen: Soft, Non-Distended Skin: Ulcer/ Wound - Right breast reconstruction wound shows a centralized flap that appears viable at this time. It feels a little less warm. A little more brusing seen at the edges. Will observe. If the bruising continues, then further operative debridement will be necessary. The edges are a little less dried out with a little more debridement of the eschar at the edges. There has been some eschar around the edges of the flap that have already been debrided in the office. Some tenderness to palpation. No purulent drainage noted. Lymphatic: - - no axillary adenopathy. Neurological: Cranial nerves II-XII grossly intact Psych/Mental Status: Normal Affect, Appropriate Vital Signs Temp Pulse Resp BP Pulse Ox 98.6 F 96 16 101/61 95 05/21/17 15:29 05/21/17 15:29 05/21/17 15:29 05/21/17 15:29 05/21/17 15:29 Oxygen Delivery Method Room Air Weight: 177 lb 15.984 oz Body Mass Index (BMI) 33.6 Intake and Output for Last 24 Hours 05/19/17 05/20/17 05/21/17 23:59 23:59 23:59 Intake Total 3763 / 3763 4676 / 4676 Output Total 2300 / 2300 1900 / 1900 Balance 1463 / 1463 2776 / 2776 Microbiology Past 72 Hours 05/19/17 14:15 Gram Stain - Final Wound Drainage - Aerobic & Anaerobic Swabs Wound Culture - Preliminary Coag Negative Staph Gram positive organism Assessment/Plan 1. Compromised TRAM flap wound right breast reconstruction. 2. Right breast cancer. 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 5. Disproportion reconstructed breasts. 6. Late effect radiation right breast. 7. Estrogen receptor status negative. 8. Former smoker. 9. s/p delayed right breast reconstruction with unipedicle contralateral TRAM flap and abdominal wall reconstruction with placement of Strattice acellular dermal matrix graft (100 cm2) and revision radiation scar contour deformity right breast with multiple W-plasties (40 cm2). 10. s/p surgical preparation right breast TRAM flap reconstruction with incision and drainage and evacuation hematoma. Continue IV antibiotics with Zosyn. Wound culture shows Gram positive organism and Coag negative Staph. MRSA DNA PCR was negative. Continue Dakin's dressings twice a day. She is tolerating the dressing changes. Prealbumin was 19.4. Encourage nutritional supplementation with protein to help the healing process. There is a little more bruising seen at the edges of the flap. Will order a PICC line and she will be disharged on IV antibiotics. I want to be aggressive with treatment of any positive cultures to minimize further compromise to the TRAM flap. The ESR was 57 and the CRP was 41.80. The goal is to try and salvage as much of the TRAM flap as possible which will help with additional revision reconstruction surgery in the future. However, depending on the healing of this compromised TRAM flap, further compromise may be evident at which time further debridement would be necessary which may include debridement of the rest of the flap. At that point, a wound VAC would be started and the patient would start HBO treatments because of her history of radiation damage with the idea of stabilizing and shrinking the size of the wound a little bit before embarking on further breast reconstruction surgery. The most likely salvage flap would be the latissimus dorsi flap. A microvascular free tissue transfer flap is also a possibility for salvage but would necessitate going to a tertiary center. The patient is interested in staying local at this time.
[2017-05-21 21:00] VITALS: BP 107/62; PULSE 105; RESP 16; TEMP 36.8; O2SAT 95
[2017-05-21] MEDS: traZODone 50 MG Tablet PO (22:44)
[2017-05-22] MEDS: oxyCODONE 5 MG Tablet 10 MG PO ×4 (00:57→22:18)
[2017-05-22 02:40] VITALS: BP 99/62; PULSE 96; RESP 16; TEMP 36.9; O2SAT 95
[2017-05-22] MEDS: Piperacil/Tazobactam 3.375 GM/50 ML ML IV (06:07)
[2017-05-22] MEDS: Lactated Ringers 1,000 ML 60 ML IV ×2 (06:07→12:50)
[2017-05-22] MEDS: Sertraline 100 MG Tablet 150 MG PO (06:08)
[2017-05-22 08:37] VITALS: BP 93/61; PULSE 90; RESP 18; TEMP 37.3; O2SAT 98
[2017-05-22] MEDS: Calcium Carb/Vitamin D 1 TABLET Tablet PO (08:46)
[2017-05-22] MEDS: HYDROmorphone 1 MG/ML Syringe IV ×4 (10:32→21:47)
[2017-05-22] MEDS: Docusate Sodium 100 MG Capsule PO ×2 (12:15→22:20)
[2017-05-22] MEDS: Doxycycline 100 MG CAPSULE PO ×2 (12:16→22:20)
[2017-05-22] MEDS: 0.9% NaCl Peripheral Flush Adult/Peds IV ×3 (12:34→22:23)
--- NOTE | 2017-05-22 12:49 | NURSING ---
wound photo: right breast
--- NOTE | 2017-05-22 12:49 | NURSING ---
wound photo: right breast
[2017-05-22 12:55] VITALS: BP 106/59; PULSE 93; RESP 16; TEMP 36.7; O2SAT 96
--- NOTE | 2017-05-22 15:34 | NURSING ---
Dr. Ahn at bedside, debriding wound. Medicated with prn IV dilaudid per Dr. Ahn's order.
--- NOTE | 2017-05-22 16:30 | PCM.PN.SRG ---
Subjective: Postop #20, Hospital day #4. Patient feels more pain today. She feels down today as she doesn't like to see her breast get debrided each day. Patient initially came to my office 4 days ago with complaints of increasing pain in her right breast and having fever at home of 100.5. She also states she feels tired and cruddy. Breast reconstruction infection was suspected because of the compromised TRAM flap and admission to the hospital was recommended with placement on IV antibiotics with Zosyn. Also more aggressive wound care was started with Dakin's because the Silver dressing changes have been drying out the wound. She is tolerating the Dakin's dressing changes at this time. Her WBC has been normal and she has been afebrile thus far. - Physical Exam General: Alert, Oriented x3 HEENT: PERRLA, EOMI Neck: Supple Lungs: Clear to auscultation Cardiovascular: Regular rate, Regular Rhythm Abdomen: Soft, Non-Distended Skin: Ulcer/ Wound - Right breast reconstruction wound shows a centralized flap that has been appearing viable thus far until today when it feels cooler. The centralized skin is still viable but with the brusing at the edges and the flap feeling cooler than on admission, the flap appears to be worsening. Will need further operative debridement. The edges were sharply debrided with a #7 curette. Some bleeding was seen on the flap laterally. However, the rest of the flap showed minimal bleeding after the curette debridement. There has been some eschar around the edges of the flap that have already been debrided in the office. Some tenderness to palpation. No purulent drainage noted. Lymphatic: - - no axillary adenopathy. Neurological: Cranial nerves II-XII grossly intact Psych/Mental Status: Normal Affect, Appropriate Vital Signs Temp Pulse Resp BP Pulse Ox 98.0 F 93 16 106/59 L 96 05/22/17 12:55 05/22/17 12:55 05/22/17 12:55 05/22/17 12:55 05/22/17 12:55 Oxygen Delivery Method Room Air Weight: 177 lb 15.984 oz Body Mass Index (BMI) 33.6 Intake and Output for Last 24 Hours 05/20/17 05/21/17 05/22/17 23:59 23:59 23:59 Intake Total 3763 / 3763 4676 / 4676 2232 / 2232 Output Total 2300 / 2300 1900 / 1900 1950 / 1950 Balance 1463 / 1463 2776 / 2776 282 / 282 Microbiology Past 72 Hours 05/19/17 14:15 Gram Stain - Final Wound Drainage - Aerobic & Anaerobic Swabs Wound Culture - Final Staphylococcus epidermidis Staphylococcus warneri Bacillus sp., not anthracis Assessment/Plan 1. Compromised TRAM flap wound right breast reconstruction, worsening. 2. Right breast cancer. 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 5. Disproportion reconstructed breasts. 6. Late effect radiation right breast. 7. Estrogen receptor status negative. 8. Former smoker. 9. s/p delayed right breast reconstruction with unipedicle contralateral TRAM flap and abdominal wall reconstruction with placement of Strattice acellular dermal matrix graft (100 cm2) and revision radiation scar contour deformity right breast with multiple W-plasties (40 cm2). 10. s/p surgical preparation right breast TRAM flap reconstruction with incision and drainage and evacuation hematoma. Wound culture shows MRSE and Staphylococcus warneri. I was hoping the Staphylococcus would be sensitive to Ceftriaxone for home use. However it is not sensitive so will proceed with Vancomycin. Continue Dakin's dressings twice a day. She is tolerating the dressing changes. Prealbumin was 19.4. Encourage nutritional supplementation with protein to help the healing process. The PICC line was placed today and she will be discharged on IV antibiotics. The goal was to try and salvage as much of the TRAM flap as possible which will help with additional revision reconstruction surgery in the future. However, further compromise of the TRAM flap is evident with more bruising at the edges and the flap is feeling cooler and minimal bleeding is noted with curette debridement so further operative debridement is necessary which may include debridement of the rest of the flap. At that point, a wound VAC would be started and the patient would start HBO treatments because of her history of radiation damage with the idea of stabilizing and shrinking the size of the wound a little bit before embarking on further breast reconstruction surgery. The most likely salvage flap would be the latissimus dorsi flap. A microvascular free tissue transfer flap is also a possibility for salvage but would necessitate going to a tertiary center. The patient is interested in staying local at this time. Will plan on the operative debridement tomorrow. Additional wound cultures will be taken. I still plan on IV antibiotics at home for at least a couple of weeks based on the cultures. Patient was informed of the risks and complications of the procedure including alternatives to surgery. These were discussed with her personally. She voices understanding and wishes to proceed.
[2017-05-22] MEDS: Acetaminophen 325 MG Tablet 650 MG PO (17:17)
[2017-05-22] MEDS: diazePAM 5 MG Tablet PO ×2 (17:18→23:53)
[2017-05-22 18:36] VITALS: BP 110/55; PULSE 95; RESP 18; TEMP 36.7; O2SAT 96
[2017-05-22] MEDS: traZODone 50 MG Tablet PO (22:20)
[2017-05-22 22:26] VITALS: BP 131/70; PULSE 97; RESP 16; TEMP 36.8; O2SAT 97
[2017-05-23] VITALS (12 sets, daily range): BP systolic 86–126; BP diastolic 44–90; PULSE 95–106; RESP 14–20; TEMP 36.6–37.6; O2SAT 90–98; BMI 33.6
--- NOTE | 2017-05-23 | BREAST_PTH ---
PATIENT: SHARON BARRAGAN LOC: [facility] U#:[id number] AGE/SX: 47/F ROOM: MI317 RE05/19/[address]: Dr. Junior Ahn MD : 1970 BED: 1 DIS: 05/25/2017 SPEC #: [id number] RECD: 05/23/17 14:39 STATUS: CHIDI REConstance #: [id number] JOANNA: 05/23/17 00:[address]: Junior Ahn DEPT: SURGICAL PATHOLOGY RECD BY: Jaya Carter ENTERED: 05/23/17 14:40 SP TYPE: BREAST OTHR DR: Dr. Josué Price MD Tissues: Right breast, NOS Procedures: Surgery Specimen Level IV HEADER OPERATION: Breast reconstruction, excisional debridement PRE-OP DIAGNOSIS: Compromised tram flap wound right breast reconstruction, worsening TISSUE SUBMITTED: Right breast reconstructed tram flap MICROSCOPIC DIAGNOSIS Skin and soft tissue of right breast, excision: Ulceration with associated acute and chronic inflammation, granulation and recent hemorrhage into fatty tissue. No evidence of malignancy. AM:sharon 05/24/17 MICROSCOPIC DESCRIPTION Slides are reviewed. GROSS DESCRIPTION Received in fixative is one container labeled with the patient's name and designated right breast constructed tram flap. The specimen consists of multiple pieces of yellow fibroadipose tissue with a few of the pieces with skin. In aggregate these fragments measure 22 x 22 x 7 cm. The skin surfaces are unremarkable. Many of the adipose tissue show congested and hemorrhagic cut surfaces. Interactive Producer sections are submitted in six cassettes. / SJ:sharon 05/23/17 TC:2 CPT: 00669
[2017-05-23] MEDS: 0.9% NaCl Peripheral Flush Adult/Peds IV ×3 (03:09→06:53)
[2017-05-23] MEDS: HYDROmorphone 1 MG/ML Syringe IV ×5 (03:09→23:53)
[2017-05-23 04:58] LABS: Hematocrit 30.6 % (37-47); Hemoglobin 10.4 g/dl (12.0-15.0); Mean Corpuscular Hgb 30.9 pg (27.0-32.0); Mean Corpuscular Volume 90.8 fL (81-99); Mean Platelet Vol. 8.3 fl (6.2-12.0); Platelet Count 276 K/mm3 (150-450); RBC Distribution Width CV 12.3 % (11.6-14.6); RBC Distribution Width SD 39.1 fl (35.1-43.9); Red Blood Count 3.37 M/mm3 (4.2-5.4); White Blood Count 5.6 K/mm3 (4.4-11.0)
[2017-05-23 05:00] LABS: Scan Indicated on CBC? Y/N NO
[2017-05-23 05:23] LABS: ALB/GLOB Ratio 0.7 RATIO (0.9-2.4); AST(SGOT) 15 U/L (15-37); Alanine Aminotransfer ALT/SGPT 20 U/L (13-56); Albumin, Serum 2.6 g/dL (3.2-5.0); Alkaline Phosphatase 131 U/L (45-117); Anion Gap 8 (5-15); BUN 18 mg/dL (7-18); BUN/Creat Ratio 26.7 RATIO (10-20); Calcium,Total 8.7 mg/dL (8.5-10.1); Chloride 101 mmol/L (98-107); Creatinine, Serum 0.67 mg/dL (0.55-1.02); EST Glomerular Filtration Rate 99 mL/min (>60); Est Glom Filt Rate - Afr Amer 120 mL/min (>60); Estimated Creatinine Clearance 77.49 ml/min; Globulin 3.6 g/dL (2.2-4.2); Glucose 98 mg/dL (74-106); Potassium 3.9 mmol/L (3.5-5.1); Protein, Total 6.2 g/dL (6.4-8.2); Sodium Level 137 mmol/L (136-145)
[2017-05-23] MEDS: Sertraline 100 MG Tablet 150 MG PO (05:58)
[2017-05-23] MEDS: oxyCODONE 5 MG Tablet 10 MG PO ×2 (05:58→14:51)
[2017-05-23] MEDS: diazePAM 5 MG Tablet PO (05:58)
[2017-05-23 07:18] LABS: Erythrocyte Sedimentation Rate 49 mm/hr (0-20)
--- NOTE | 2017-05-23 12:22 | PCM.IMDPSTOP ---
Immediate Post-Op Note Date of Procedure: 05/23/17 Primary Surgeon/Physician: Junior Ahn mascara molder: None Pre-Operative Diagnosis: 1. Compromised TRAM flap wound right breast reconstruction, worsening. 2. Right breast cancer. 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 5. Disproportion reconstructed breasts. 6. Late effect radiation right breast. 7. Estrogen receptor status negative. 8. Former smoker. 9. s/p delayed right breast reconstruction with unipedicle contralateral TRAM flap and abdominal wall reconstruction with placement of Strattice acellular dermal matrix graft (100 cm2) and revision radiation scar contour deformity right breast with multiple W-plasties (40 cm2). 10. s/p surgical preparation right breast TRAM flap reconstruction with incision and drainage and evacuation hematoma. Post-Operative Diagnosis: Same. Surgery/Procedure Performed:: Surgical preparation right breast reconstruction with excisional debridement compromised TRAM flap (256 cm2). Description of Surgical Findings:: The patient is a 47 year old F who presented for evaluation breast reconstruction. Her initial bilateral mastectomy was on 01/12/16. She underwent IV chemotherapy initially and this was followed by radiation therapy to the right breast. She finished the radiation therapy in 10/03. She states that during this adjuvant therapy, she has gained a little weight and has developed some extra tissue in the lower anterior abdominal wall. The last time I saw her in 03/04, she was interested in breast reconstruction with placement of implants. Now she is contemplating the use of autogenous tissue for the radiated right breast. She denies any fever. She states she has stopped smoking since her diagnosis of breast cancer. On 05/02/17, the patient underwent delayed right breast reconstruction with unipedicle contralateral TRAM flap and abdominal wall reconstruction with placement of Strattice acellular dermal matrix graft (100 cm2) and revision radiation scar contour deformity right breast with multiple W-plasties (40 cm2). Due to the length of the procedure, postop Lovenox was given daily. She developed a postop hematoma and was taken back to surgery on 05/05/17 where she underwent surgical preparation right breast TRAM flap reconstruction with incision and drainage and evacuation hematoma. Besides evacuating the hematoma, operative intervention was done to take pressure off the blood supply to the flap. This will help the salvage the flap. There was some improvement after the drainage of hematoma. She was discharged home and was seen in the office daily because of the need for serial debridements at the edges of the flap due to the development of eschar. The bruising and eschar slowly progressed. There was a central area of the flap that appeared viable. On the day of admission to the hospital, 05/19/17, she wasn't feeling well with increased pain and having a fever at home. She was started on Zosyn IV antibiotics. Wound culture showed Staphylococcus warneri and MRSE and the antibiotics were changed to Vancomycin. Her wound care in the hospital was changed from [facility] to Dakin's. The flap was warm at admission and yesterday felt a little more cool with a little more bruising. It was recommended to proceed with further operative debridement to minimize any further infection damage and to then place the VAC for wound care. After discharge, will followup at the [facility]ound Center for evaluation for HBO treatments to improve the vascularity and oxygenation of the radiated tissue in preparation for further revision breast reconstruction in the future. Today the patient underwent surgical preparation right breast reconstruction with excisional debridement compromised TRAM flap (256 cm2). Size of defect right breast - 16 x 16 cm. Was able to salvage about 20% of the flap. I used Geri absorbable hemostat. Reference Number - [id number]. Lot Number - [id number]. Expiration - January 14, 2022. Estimated Blood Loss: 150 ml. Specimen's removed: Compromised TRAM flap right breast reconstruction to Pathology and Microbiology. Drains: None. Type of Anesthesia:: General - Admit VTE Documentation VTE Present on Admission: No VTE Mechan Device Prophylaxis: SCD's VTE Pharm Prophylaxis ordered?: Yes
--- NOTE | 2017-05-23 12:25 | OP.PN_ITS ---
Immediate Post-Op Note Date of Procedure: 05/23/17 Primary Surgeon/Physician: Junior Ahn aging department supervisor: None Pre-Operative Diagnosis: 1. Compromised TRAM flap wound right breast reconstruction, worsening. 2. Right breast cancer. 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 5. Disproportion reconstructed breasts. 6. Late effect radiation right breast. 7. Estrogen receptor status negative. 8. Former smoker. 9. s/p delayed right breast reconstruction with unipedicle contralateral TRAM flap and abdominal wall reconstruction with placement of Strattice acellular dermal matrix graft (100 cm2) and revision radiation scar contour deformity right breast with multiple W- plasties (40 cm2). 10. s/p surgical preparation right breast TRAM flap reconstruction with incision and drainage and evacuation hematoma. Post-Operative Diagnosis: Same. Surgery/Procedure Performed:: Surgical preparation right breast reconstruction with excisional debridement compromised TRAM flap (256 cm2). Description of Surgical Findings:: The patient is a 47 year old F who presented for evaluation breast reconstruction. Her initial bilateral mastectomy was on 01/12/16. She underwent IV chemotherapy initially and this was followed by radiation therapy to the right breast. She finished the radiation therapy in 10/03. She states that during this adjuvant therapy, she has gained a little weight and has developed some extra tissue in the lower anterior abdominal wall. The last time I saw her in 03/04, she was interested in breast reconstruction with placement of implants. Now she is contemplating the use of autogenous tissue for the radiated right breast. She denies any fever. She states she has stopped smoking since her diagnosis of breast cancer. On 05/02/17, the patient underwent delayed right breast reconstruction with unipedicle contralateral TRAM flap and abdominal wall reconstruction with placement of Strattice acellular dermal matrix graft (100 cm2) and revision radiation scar contour deformity right breast with multiple W-plasties (40 cm2) . Due to the length of the procedure, postop Lovenox was given daily. She developed a postop hematoma and was taken back to surgery on 05/05/17 where she underwent surgical preparation right breast TRAM flap reconstruction with incision and drainage and evacuation hematoma. Besides evacuating the hematoma , operative intervention was done to take pressure off the blood supply to the flap. This will help the salvage the flap. There was some improvement after the drainage of hematoma. She was discharged home and was seen in the office daily because of the need for serial debridements at the edges of the flap due to the development of eschar. The bruising and eschar slowly progressed. There was a central area of the flap that appeared viable. On the day of admission to the hospital, 05/19/17, she wasn 't feeling well with increased pain and having a fever at home. She was started on Zosyn IV antibiotics. Wound culture showed Staphylococcus warneri and MRSE and the antibiotics were changed to Vancomycin. Her wound care in the hospital was changed from [employer] to Dakin's. The flap was warm at admission and yesterday felt a little more cool with a little more bruising. It was recommended to proceed with further operative debridement to minimize any further infection damage and to then place the VAC for wound care. After discharge, will followup at the Wound Center for evaluation for HBO treatments to improve the vascularity and oxygenation of the radiated tissue in preparation for further revision breast reconstruction in the future. Today the patient underwent surgical preparation right breast reconstruction with excisional debridement compromised TRAM flap (256 cm2). Size of defect right breast - 16 x 16 cm. Was able to salvage about 20% of the flap. I used Geri absorbable hemostat. Reference Number - [id number]. Lot Number - [id number]. Expiration - January 14, 2022. Estimated Blood Loss: 150 ml. Specimen's removed: Compromised TRAM flap right breast reconstruction to Pathology and Microbiology. Drains: None. Type of Anesthesia:: General - Admit VTE Documentation VTE Present on Admission: No VTE Mechan Device Prophylaxis: SCD's VTE Pharm Prophylaxis ordered?: Yes
[2017-05-23] MEDS: Doxycycline 100 MG CAPSULE PO ×2 (14:53→21:16)
[2017-05-23] MEDS: Docusate Sodium 100 MG Capsule PO ×2 (14:53→21:17)
--- NOTE | 2017-05-23 15:11 | PCM.RX.CS ---
Subjective/Objective Date: 05/23/17 Time: 15:11 Antibiotic: Vancomycin Type of Consult: New start Indications for Therapy: Necrotizing Wound Labs: Sodium 137 mmol/L (136-145) 05/23/17 04:35 Potassium 3.9 mmol/L (3.5-5.1) 05/23/17 04:35 Chloride 101 mmol/L (98-107) 05/23/17 04:35 Carbon Dioxide 28.0 mmol/L (21.0-32.0) 05/23/17 04:35 Anion Gap 8 (5-15) 05/23/17 04:35 BUN 18 mg/dL (7-18) 05/23/17 04:35 Creatinine 0.67 mg/dL (0.55-1.02) 05/23/17 04:35 Est GFR (MDRD) Af Amer 120 mL/min (>60) 05/23/17 04:35 Est GFR (MDRD) Non-Af 99 mL/min (>60) 05/23/17 04:35 BUN/Creatinine Ratio 26.7 RATIO (10-20) H 05/23/17 04:35 Glucose 98 mg/dL (74-106) 05/23/17 04:35 Estimated Creatinine Clearance: 60-70 ml/min Pharmacy Plan for Drug Dosing: Recommend goal trough of 15-20. Initial dose of 1250mg x1 given 05/22/17 at 1223. Maintenance dose of 1500mg q12h at 10,22 started 05/22/17 at 2200, with and est tough of 16mcg/ml. Trough level to be checked 05/23/17 at 2200. Pharmacy Service will continue to monitor and adjust dosing as required.
--- NOTE | 2017-05-23 15:13 | CHAPLAIN ---
family members in room; patient has just returned from surgery and asks me to return when she can talk more clearly; family members ask me to return to visit please
--- NOTE | 2017-05-23 17:00 | PCM.OPRPT ---
Report of Operation Date of Procedure: 05/23/17 Pre-Operative Diagnosis: 1. Compromised TRAM flap wound right breast reconstruction, worsening. 2. Right breast cancer. 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 5. Disproportion reconstructed breasts. 6. Late effect radiation right breast. 7. Estrogen receptor status negative. 8. Former smoker. 9. s/p delayed right breast reconstruction with unipedicle contralateral TRAM flap and abdominal wall reconstruction with placement of Strattice acellular dermal matrix graft (100 cm2) and revision radiation scar contour deformity right breast with multiple W-plasties (40 cm2). 10. s/p surgical preparation right breast TRAM flap reconstruction with incision and drainage and evacuation hematoma. Post-Operative Diagnosis: Same. Surgery/Procedure Performed:: Surgical preparation right breast reconstruction with excisional debridement compromised TRAM flap (256 cm2). Description of Surgical Findings:: The patient is a 47 year old F who presented for evaluation breast reconstruction. Her initial bilateral mastectomy was on 01/12/16. She underwent IV chemotherapy initially and this was followed by radiation therapy to the right breast. She finished the radiation therapy in 10/03. She states that during this adjuvant therapy, she has gained a little weight and has developed some extra tissue in the lower anterior abdominal wall. The last time I saw her in 03/04, she was interested in breast reconstruction with placement of implants. Now she is contemplating the use of autogenous tissue for the radiated right breast. She denies any fever. She states she has stopped smoking since her diagnosis of breast cancer. On 05/02/17, the patient underwent delayed right breast reconstruction with unipedicle contralateral TRAM flap and abdominal wall reconstruction with placement of Strattice acellular dermal matrix graft (100 cm2) and revision radiation scar contour deformity right breast with multiple W-plasties (40 cm2). Due to the length of the procedure, postop Lovenox was given daily. She developed a postop hematoma and was taken back to surgery on 05/05/17 where she underwent surgical preparation right breast TRAM flap reconstruction with incision and drainage and evacuation hematoma. Besides evacuating the hematoma, operative intervention was done to take pressure off the blood supply to the flap. This will help the salvage the flap. There was some improvement after the drainage of hematoma. She was discharged home and was seen in the office daily because of the need for serial debridements at the edges of the flap due to the development of eschar. The bruising and eschar slowly progressed. There was a central area of the flap that appeared viable. On the day of admission to the hospital, 05/19/17, she wasn't feeling well with increased pain and having a fever at home. She was started on Zosyn IV antibiotics. Wound culture showed Staphylococcus warneri and MRSE and the antibiotics were changed to Vancomycin. Her wound care in the hospital was changed from [facility] to [facility]. The flap was warm at admission and yesterday felt a little more cool with a little more bruising. It was recommended to proceed with further operative debridement to minimize any further infection damage and to then place the VAC for wound care. After discharge, will followup at the [facility] for evaluation for HBO treatments to improve the vascularity and oxygenation of the radiated tissue in preparation for further revision breast reconstruction in the future. Patient was informed of the risks and complications of the procedure including alternatives to surgery. These were discussed with her personally. She voiced understanding and wishes to proceed. Size of defect right breast - 16 x 16 cm. Was able to salvage about 20% of the flap. I used Geri absorbable hemostat. Reference Number - [id number]. Lot Number - [id number]. Expiration - January 14, 2022. lining stuffer: None Type of Anesthesia:: General Specimen's removed: Compromised TRAM flap right breast reconstruction to Pathology and Microbiology. Drains: None. Estimated Blood Loss (mL): 150 ml. Description of Procedure: Patient was taken to the OR in supine position and was placed under general anesthesia. Her right breast was prepped and draped in the usual fashion. SCD's were placed for DVT prophylaxis. Perioperative antibiotics were given intravenously. Using xylocaine with epinephrine, the breast skin edges were infiltrated. Using a scalpel, I started to debride the edges of the flap where the most compromise was seen. I debrided all four sides until I got to viable subcutaneous tissue and good bleeding of tissue. When I debrided the nonviable tissue inferiorly, there was concern the nonviability extended all the down through the muscular pedicle. However after the superficial debridement, The underlying muscular pedicle was intact and viable and showed good bleeding after the debridement. Therefore it was decided to save this last bit of flap in case this extra tissue is needed at future revision breast reconstruction surgeries. I was able to inset the flap at the most inferomedial aspect of the wound. If this tissue continues to be viable, its location will be useful since the latissimus dorsi flap that is generally used for salvage is ideally suited for more central and lateral wound defects and is more problematic reaching the medial most aspect of the wound defect. The residual flap was then secured to the inferomedial wound edge with 3-0 Monocryl interrupted suture for the deep dermis and subcutaneous tissue. It was also secured to the chest wall with 3-0 Monocryl interrupted suture. The chest wall showed residual effects of radiation with the presence of grayish exudate that was sharply debrided with a curette. Good bleeding was noted. The wound was irrigated with saline. Hemostasis obtained with electrocautery. There was some serous drainage at the edge of the tunnel where the muscular pedicle came through. I sprayed Geri absorbable hemostat into the tunnel to help minimize any further drainage into the breast wound and to help minimize seroma. The size of the wound right breast after the debridement of the compromised TRAM flap was 16 x 16 cm or 256 cm2. The wound was then dressed with Mepitel nonadherent dressing followed by Kerlix gauze with Betadine followed by a dry Kerlix gauze and ABD pads and a surgical bra. Tissue that was removed after debridement was sent to Pathology for analysis as well as to Microbiology for culture. A positive culture may necessitate antibiotic modification. Perioperatively she will continue Vancomycin. Grafts/Implants Used: None. - Complications None. - Admit VTE Documentation VTE Present on Admission: No VTE Mechan Device Prophylaxis: SCD's VTE Pharm Prophylaxis ordered?: Yes Code Visit Surgery Charges CPT - 37282 ICD-10 - C50.911, T86.828, F40.298, Z90.13, N65.1, T66.xxxS, L98.499, N65.0 61528 C50.911, T86.828, F40.298, Z90.13, N65.1, T66.xxxS, L98.499, N65.0 21408 C50.911, T86.828, F40.298, Z90.13, N65.1, T66.xxxS, L98.499, N65.0
[2017-05-23] MEDS: Lactated Ringers 1,000 ML 60 ML IV (17:13)
[2017-05-23] MEDS: traZODone 50 MG Tablet PO (21:17)
[2017-05-24] MEDS: oxyCODONE 5 MG Tablet 10 MG PO ×4 (01:57→15:20)
[2017-05-24 02:00] VITALS: BP 114/61; PULSE 90; RESP 14; TEMP 36.4; O2SAT 93
[2017-05-24 04:49] LABS: Hematocrit 28.5 % (37-47); Hemoglobin 9.6 g/dl (12.0-15.0); Mean Corp Hgb Conc 33.7 g/gl (32-36); Mean Corpuscular Hgb 30.5 pg (27.0-32.0); Mean Corpuscular Volume 90.5 fL (81-99); Mean Platelet Vol. 8.4 fl (6.2-12.0); Platelet Count 292 K/mm3 (150-450); RBC Distribution Width CV 12.2 % (11.6-14.6); RBC Distribution Width SD 39.2 fl (35.1-43.9); Red Blood Count 3.15 M/mm3 (4.2-5.4); White Blood Count 7.1 K/mm3 (4.4-11.0)
[2017-05-24 04:56] LABS: Anion Gap 8 (5-15); BUN 12 mg/dL (7-18); BUN/Creat Ratio 18.9 RATIO (10-20); Calcium,Total 8.3 mg/dL (8.5-10.1); Chloride 106 mmol/L (98-107); Creatinine, Serum 0.63 mg/dL (0.55-1.02); EST Glomerular Filtration Rate 106 mL/min (>60); Est Glom Filt Rate - Afr Amer 129 mL/min (>60); Estimated Creatinine Clearance 82.41 ml/min; Glucose 119 mg/dL (74-106); Potassium 3.5 mmol/L (3.5-5.1); Scan Indicated on CBC? Y/N NO; Sodium Level 141 mmol/L (136-145)
[2017-05-24] MEDS: Sertraline 100 MG Tablet 150 MG PO (06:50)
[2017-05-24] MEDS: Enoxaparin 40 MG/0.4 ML Syringe SC (06:50)
[2017-05-24] MEDS: 0.9% NaCl Peripheral Flush Adult/Peds IV ×4 (06:54→10:52)
[2017-05-24] MEDS: Ondansetron 4 MG/2 ML Vial IV (08:02)
[2017-05-24] MEDS: HYDROmorphone 1 MG/ML Syringe IV ×2 (08:03→21:04)
[2017-05-24 08:58] LABS: Vancomycin, Trough Level 19.1 ug/mL (5.0-15.0)
[2017-05-24 09:24] VITALS: BP 95/52; PULSE 106; RESP 16; TEMP 37.2; O2SAT 94
--- NOTE | 2017-05-24 09:42 | NURSING ---
wound photo: right breast
--- NOTE | 2017-05-24 09:43 | NURSING ---
wound photo: right breast
--- NOTE | 2017-05-24 10:00 | CASEMGMT ---
DOUGIE GALEANO updated that patient is wishing to discharge today. Patient is requiring HHC for wound vac and IV ATBs. DOUGIE GALEANO updated Dr. Ahn and confirmed with physician that patient will need IV ATBs at discharge. Dr. Ahn stated that patient would be on IV Vancomycin q 12 hours for a couple weeks. DOUGIE GALEANO requested script for IV ATB to setup IV ATB and HHC and updated physician that discharge would be postponed till IV ATBs and HHC arranged. DOUGIE GALEANO sent referral to [facility] to set up IV ATB and requested HHC as well. DOUGIE GALEANO will continue to follow this patient and plan for a safe discharge.
--- NOTE | 2017-05-24 10:01 | OP.PCM_ITS ---
Report of Operation Date of Procedure: 05/23/17 Pre-Operative Diagnosis: 1. Compromised TRAM flap wound right breast reconstruction, worsening. 2. Right breast cancer. 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 5. Disproportion reconstructed breasts. 6. Late effect radiation right breast. 7. Estrogen receptor status negative. 8. Former smoker. 9. s/p delayed right breast reconstruction with unipedicle contralateral TRAM flap and abdominal wall reconstruction with placement of Strattice acellular dermal matrix graft (100 cm2) and revision radiation scar contour deformity right breast with multiple W- plasties (40 cm2). 10. s/p surgical preparation right breast TRAM flap reconstruction with incision and drainage and evacuation hematoma. Post-Operative Diagnosis: Same. Surgery/Procedure Performed:: Surgical preparation right breast reconstruction with excisional debridement compromised TRAM flap (256 cm2). Description of Surgical Findings:: The patient is a 47 year old F who presented for evaluation breast reconstruction. Her initial bilateral mastectomy was on 01/12/16. She underwent IV chemotherapy initially and this was followed by radiation therapy to the right breast. She finished the radiation therapy in 10/03. She states that during this adjuvant therapy, she has gained a little weight and has developed some extra tissue in the lower anterior abdominal wall. The last time I saw her in 03/04, she was interested in breast reconstruction with placement of implants. Now she is contemplating the use of autogenous tissue for the radiated right breast. She denies any fever. She states she has stopped smoking since her diagnosis of breast cancer. On 05/02/17, the patient underwent delayed right breast reconstruction with unipedicle contralateral TRAM flap and abdominal wall reconstruction with placement of Strattice acellular dermal matrix graft (100 cm2) and revision radiation scar contour deformity right breast with multiple W-plasties (40 cm2) . Due to the length of the procedure, postop Lovenox was given daily. She developed a postop hematoma and was taken back to surgery on 05/05/17 where she underwent surgical preparation right breast TRAM flap reconstruction with incision and drainage and evacuation hematoma. Besides evacuating the hematoma , operative intervention was done to take pressure off the blood supply to the flap. This will help the salvage the flap. There was some improvement after the drainage of hematoma. She was discharged home and was seen in the office daily because of the need for serial debridements at the edges of the flap due to the development of eschar. The bruising and eschar slowly progressed. There was a central area of the flap that appeared viable. On the day of admission to the hospital, 05/19/17, she wasn 't feeling well with increased pain and having a fever at home. She was started on Zosyn IV antibiotics. Wound culture showed Staphylococcus warneri and MRSE and the antibiotics were changed to Vancomycin. Her wound care in the hospital was changed from [facility] to [facility]. The flap was warm at admission and yesterday felt a little more cool with a little more bruising. It was recommended to proceed with further operative debridement to minimize any further infection damage and to then place the VAC for wound care. After discharge, will followup at the Wound Center for evaluation for HBO treatments to improve the vascularity and oxygenation of the radiated tissue in preparation for further revision breast reconstruction in the future. Patient was informed of the risks and complications of the procedure including alternatives to surgery. These were discussed with her personally. She voiced understanding and wishes to proceed. Size of defect right breast - 16 x 16 cm. Was able to salvage about 20% of the flap. I used Geri absorbable hemostat. Reference Number - [id number]. Lot Number - [id number]. Expiration - January 14, 2022. purchasing expeditor: None Type of Anesthesia:: General Specimen's removed: Compromised TRAM flap right breast reconstruction to Pathology and Microbiology. Drains: None. Estimated Blood Loss (mL): 150 ml. Description of Procedure: Patient was taken to the OR in supine position and was placed under general anesthesia. Her right breast was prepped and draped in the usual fashion. SCD' s were placed for DVT prophylaxis. Perioperative antibiotics were given intravenously. Using xylocaine with epinephrine, the breast skin edges were infiltrated. Using a scalpel, I started to debride the edges of the flap where the most compromise was seen. I debrided all four sides until I got to viable subcutaneous tissue and good bleeding of tissue. When I debrided the nonviable tissue inferiorly, there was concern the nonviability extended all the down through the muscular pedicle. However after the superficial debridement, The underlying muscular pedicle was intact and viable and showed good bleeding after the debridement. Therefore it was decided to save this last bit of flap in case this extra tissue is needed at future revision breast reconstruction surgeries. I was able to inset the flap at the most inferomedial aspect of the wound. If this tissue continues to be viable, its location will be useful since the latissimus dorsi flap that is generally used for salvage is ideally suited for more central and lateral wound defects and is more problematic reaching the medial most aspect of the wound defect. The residual flap was then secured to the inferomedial wound edge with 3-0 Monocryl interrupted suture for the deep dermis and subcutaneous tissue. It was also secured to the chest wall with 3-0 Monocryl interrupted suture. The chest wall showed residual effects of radiation with the presence of grayish exudate that was sharply debrided with a curette. Good bleeding was noted. The wound was irrigated with saline. Hemostasis obtained with electrocautery. There was some serous drainage at the edge of the tunnel where the muscular pedicle came through. I sprayed Geri absorbable hemostat into the tunnel to help minimize any further drainage into the breast wound and to help minimize seroma. The size of the wound right breast after the debridement of the compromised TRAM flap was 16 x 16 cm or 256 cm2. The wound was then dressed with Mepitel nonadherent dressing followed by Kerlix gauze with Betadine followed by a dry Kerlix gauze and ABD pads and a surgical bra. Tissue that was removed after debridement was sent to Pathology for analysis as well as to Microbiology for culture. A positive culture may necessitate antibiotic modification. Perioperatively she will continue Vancomycin. Grafts/Implants Used: None. - Complications None. - Admit VTE Documentation VTE Present on Admission: No VTE Mechan Device Prophylaxis: SCD's VTE Pharm Prophylaxis ordered?: Yes Code Visit Surgery Charges CPT - 48347 ICD-10 - C50.911, T86.828, F40.298, Z90.13, N65.1, T66.xxxS, L98.499, N65.0 28286 C50.911, T86.828, F40.298, Z90.13, N65.1, T66.xxxS, L98.499, N65.0 01311 C50.911, T86.828, F40.298, Z90.13, N65.1, T66.xxxS, L98.499, N65.0
--- NOTE | 2017-05-24 10:01 | PCM.PN.SRG ---
Subjective: Postop #1 Patient complains of wound pain. Doesn't feel as tired. VAC applied today. - Physical Exam General: Alert, Oriented x3 HEENT: PERRLA, EOMI Neck: Supple Lungs: Clear to auscultation Cardiovascular: Regular rate, Regular Rhythm Abdomen: Soft, Non-Distended Skin: Ulcer/ Wound - Right breast wound is stable. No bleeding seen. VAC applied with some pain. Remaining flap is soft and pink and healing satisfactory. No evidence of residual bruising. Neurological: Cranial nerves II-XII grossly intact Psych/Mental Status: Normal Affect, Appropriate Vital Signs Temp Pulse Resp BP Pulse Ox 98.9 F 106 H 16 95/52 L 94 05/24/17 09:24 05/24/17 09:24 05/24/17 09:24 05/24/17 09:24 05/24/17 09:24 Oxygen Flow Rate (L/min) 2 Oxygen Delivery Method Room Air Weight: 177 lb 15.984 oz Body Mass Index (BMI) 33.6 Intake and Output for Last 24 Hours 05/22/17 05/23/17 05/24/17 23:59 23:59 23:59 Intake Total 4041 / 4041 2129 / 2129 1106 / 1106 Output Total 2915 / 2915 1700 / 1700 Balance 1126 / 1126 429 / 429 1106 / 1106 Microbiology Past 72 Hours 05/23/17 11:20 Gram Stain - Final Tissue - Breast 05/19/17 14:15 Gram Stain - Final Wound Drainage - Aerobic & Anaerobic Swabs Wound Culture - Final Staphylococcus epidermidis Staphylococcus warneri Bacillus sp., not anthracis Anaerobic Culture - Final No anaerobic bacteria isolated. Laboratory Tests Past 24 Hrs 05/24/17 05/24/17 05/24/17 04:25 04:25 08:20 WBC 7.1 RBC 3.15 L Hgb 9.6 L Hct 28.5 L MCV 90.5 MCH 30.5 MCHC 33.7 RDW 12.2 RDW Differential 39.2 Plt Count 292 MPV 8.4 Sodium 141 Potassium 3.5 Chloride 106 Carbon Dioxide 27.0 Anion Gap 8 BUN 12 Creatinine 0.63 Estim Creat Clear Calc 82.41 Est GFR (MDRD) Af Amer 129 Est GFR (MDRD) Non-Af 106 BUN/Creatinine Ratio 18.9 Glucose 119 H Calcium 8.3 L Vancomycin Trough 19.1 H Alkaline phosphatase has decreased slightly from 141 to 131. Still slightly elevated. Diagnostic Data Abdomen/Pelvis CT 05/24/17 10:03 IMPRESSION: Postoperative changes are seen at the site of right mastectomy with a small amount of air deep in the subcutaneous tissues extending into the lateral anterior abdominal wall. Electronically Signed: Jin Kingston MD at 11:02 EST Tel [phone], Service support , Chest X-Ray 05/24/17 10:03 IMPRESSION: Findings suggestive of postoperative changes in the right breast. Increased markings at the lung bases worse on the right side suggestive bibasilar atelectasis. Electronically Signed: Jin Kingston MD at 11:22 EST Tel [phone], Service support , Assessment/Plan 1. Compromised TRAM flap wound right breast reconstruction. 2. Right breast cancer. 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 5. Disproportion reconstructed breasts. 6. Late effect radiation right breast. 7. Estrogen receptor status negative. 8. Former smoker. 9. s/p surgical preparation right breast reconstruction with excisional debridement compromised TRAM flap (256 cm2). 10. MRSE. 11. Anemia of chronic disease, stable. 12. Mildly elevated alkaline phosphatase. Wound culture from 05/19/17 shows MRSE and Staphylococcus warneri. Continue Vancomycin. Her PICC line is in place. Operative culture is pending. A positive culture may necessitate antibiotic modification. Anemia of chronic disease is stable. Hgb has been stable from 10.8 on admission to 9.6 today. Her PCP will evaluate her anemia as an outpatient. Her Alkaline Phosphatase has decreased slightly from 141 to 131, but is still slightly elevated. With her history of breast cancer, a CT Abdomen and Pelvis was obtained today. It showed a normal liver. After discharge, plan on being evaluated at Wound Center for HBO treatments. Will obtain a CXR for that purpose. Prealbumin was 19.4. Encourage nutritional supplementation with protein to help the healing process. VAC was placed today. There was some pain. Remaining TRAM flap is soft and pink and healing satisfactory with no evidence of residual bruising. Trying to arrange Home Health and IV antibiotics with the infusion company. Anticipate discharge tomorrow.
--- NOTE | 2017-05-24 10:03 | CT_ITS ---
STUDY: CT ABDOMEN AND PELVIS WITHOUT CONTRAST REASON FOR EXAM: Female, 47 years old. Compromise transfer flap. History of breast cancer. RADIATION DOSAGE (If Supplied By Facility): CTDIvol = ( 14.53 ) mGy, DLP = ( 719.78 ) mGycm TECHNIQUE: Transaxial images were obtained from the dome of the diaphragm to the symphysis pubis without oral contrast, and without intravenous contrast. Sagittal and coronal images were reconstructed. Individualized dose optimization techniques were used for this CT. COMPARISON: Comparison is made with prior study dated April 20, 2016. FINDINGS: The patient is status post right mastectomy and transflap reconstruction. There is evidence of a drainage tube within the operative site. There is evidence of postoperative changes with a small amount of air in the deep soft tissues overlying the inferior aspect of the anterior right hemithorax. Mild degree of increased markings at the lung bases slightly worse on the left side suggestive of a bibasilar atelectasis. There is no evidence of pneumothorax. The visualized portions of the heart are within normal limits. Normal liver. Normal gallbladder and extrahepatic biliary system. Normal spleen. Normal pancreas. Normal bilateral adrenal glands. Normal right kidney. Normal left kidney. Normal visualized stomach. Normal small intestine. Normal colon. The appendix is visualized and appears normal. There is scattered atherosclerotic calcification of the abdominal aorta, without a demonstrated aneurysm. Normal inferior vena cava. Normal retroperitoneum. Normal urinary bladder. There is absence of the uterus consistent with a prior hysterectomy. There is evidence of prior anterior ventral hernia repair with mesh. Normal osseous structures. CT/Abdomen/Pelvis without Cont IMPRESSION: Postoperative changes are seen at the site of right mastectomy with a small amount of air deep in the subcutaneous tissues extending into the lateral anterior abdominal wall. Electronically Signed: Jin Kingston MD at 11:02 EST Tel [phone], Service support ,
--- NOTE | 2017-05-24 10:03 | RAD_ITS ---
STUDY: X-RAY CHEST REASON FOR EXAM: Female, 47 years old. Postoperative wound infection. Right mastectomy and reconstruction. TECHNIQUE: PA and lateral views of the chest. COMPARISON: Comparison is made with prior examination dated February 12, 2016. FINDINGS: Surgical clips are seen overlying the right lower thoracic wall. A drainage tube is seen within this surgical site and this is in keeping with the postoperative breast reconstruction changes. Small amount of subcutaneous air is seen within the right lateral chest wall There now is evidence of increased markings at the lung bases worse on the right side suggestive bibasilar atelectasis. There is blunting of the right costophrenic angle. Normal size heart. Normal mediastinum and robi. Normal visualized pulmonary arteries. Normal visualized aortic arch and descending thoracic aorta. Normal visualized thoracic spine. Normal visualized ribs, clavicles, and shoulders. There is no demonstrated abnormality of the visualized soft tissue structures of the upper abdomen. RAD/Chest PA and Lateral IMPRESSION: Findings suggestive of postoperative changes in the right breast. Increased markings at the lung bases worse on the right side suggestive bibasilar atelectasis. Electronically Signed: Jin Kingston MD at 11:22 EST Tel [phone], Service support ,
[2017-05-24] MEDS: diazePAM 5 MG Tablet PO ×3 (10:14→21:04)
[2017-05-24] MEDS: Doxycycline 100 MG CAPSULE PO ×2 (10:51→21:04)
[2017-05-24] MEDS: amLODIPine 5 MG Tablet PO (10:51)
[2017-05-24] MEDS: Calcium Carb/Vitamin D 1 TABLET Tablet PO (10:51)
[2017-05-24] MEDS: Docusate Sodium 100 MG Capsule PO ×2 (10:51→21:04)
[2017-05-24 11:25] VITALS: PULSE 100
[2017-05-24] MEDS: Meloxicam 15 MG Tablet PO (11:25)
--- NOTE | 2017-05-24 13:08 | CHAPLAIN ---
Type of Pastoral Visit ___ Initial Visit _x__ Follow-up Visit ___ On-call Visit ___ General Patient Visit ___ Spiritual Assessment ___ Family Conference ___ Bereavement ___ Rapid Response ___ Code Blue ___ Other (describe below) Pastoral Care Referral From _x__ Patient _x__ Family ___ Nurse ___ Physician ___ Mail Processing Equipment Mechanic ___ Expansion Joint Builder ___ Other (describe below) Sacrament/Intervention _x__ Active listening ___ Anointing ___ Moravian _x__ Bereavement ___ Communion ___ Zonia exploration ___ ___ Life review _x__ Prayer ___ Reconciliation ___ Sacrament of Sick _x__ Supportive presence ___ Wedding ___ Other (describe below) Pastoral Comments patient has had multiple surgeries recently and is experiencing grief from of her father this week; other family members are looking to pt for decisions and pt feeling unable to process all of this at once; pt asks for prayer and then would like to have a nap; pt says she is not answering her phone today; pt expects to go home today and is looking forward to being out of the hospital;
--- NOTE | 2017-05-24 13:30 | CASEMGMT ---
DOUGIE GALEANO obtained script for IV ATB and face to face and faxed to [facility]. [facility] updated with start of care date for 05/25/17 in the evening to begin IV ATB. DOUGIE GALEANO updated Dr. Ahn. DOUGIE GALEANO updated patient regarding discharge plans and setup for IV ATB, wound care with [facility]. Patient voiced understanding.
--- NOTE | 2017-05-24 15:14 | CASEMGMT ---
DOUGIE GALEANO received update from [facility] that after 11+ referrals for C, [facility] is able to take the patient but is requesting start of care 05/26/17 at 8am. DOUGIE GALEANO called Dr. Ahn and left message to update with [facility] and start of care. DOUGIE GALEANO will continue to follow this patient and plan for a safe discharge.
[2017-05-24 15:18] VITALS: BP 95/54; PULSE 105; RESP 16; TEMP 37.1; O2SAT 97
[2017-05-24] MEDS: Lactated Ringers 1,000 ML 60 ML IV (17:33)
[2017-05-24] MEDS: traZODone 50 MG Tablet PO (21:04)
[2017-05-24 21:08] VITALS: BP 108/51; PULSE 96; RESP 14; TEMP 36.9; O2SAT 97
[2017-05-25 03:24] VITALS: BP 131/55; PULSE 90; RESP 14; TEMP 36.6; O2SAT 98
[2017-05-25] MEDS: Sertraline 100 MG Tablet 150 MG PO (06:13)
[2017-05-25] MEDS: Enoxaparin 40 MG/0.4 ML Syringe SC (06:15)
[2017-05-25] MEDS: oxyCODONE 5 MG Tablet 10 MG PO ×2 (06:20→10:46)
--- NOTE | 2017-05-25 07:21 | PCM.RX.CS ---
Subjective/Objective Antibiotic: Vancomycin Type of Consult: Follow-up Prior Doses of Antibiotics Received/Current Regimen: Medications Vancomycin HCl 1,500 mg/ (Sodium Chloride) 530 mls @ 250 mls/hr IV Q12H ANNA Last Admin: 05/24/17 10:50 Dose: 250 mls/hr Labs: Sodium 141 mmol/L (136-145) 05/24/17 04:25 Potassium 3.5 mmol/L (3.5-5.1) 05/24/17 04:25 Chloride 106 mmol/L (98-107) 05/24/17 04:25 Carbon Dioxide 27.0 mmol/L (21.0-32.0) 05/24/17 04:25 Anion Gap 8 (5-15) 05/24/17 04:25 BUN 12 mg/dL (7-18) 05/24/17 04:25 Creatinine 0.63 mg/dL (0.55-1.02) 05/24/17 04:25 Est GFR (MDRD) Af Amer 129 mL/min (>60) 05/24/17 04:25 Est GFR (MDRD) Non-Af 106 mL/min (>60) 05/24/17 04:25 BUN/Creatinine Ratio 18.9 RATIO (10-20) 05/24/17 04:25 Glucose 119 mg/dL (74-106) H 05/24/17 04:25 Vancomycin Trough 19.1 ug/mL (5.0-15.0) H 05/24/17 08:20 Estimated Creatinine Clearance: 80-85 mL/min Pharmacy Plan for Drug Dosing: Vancomycin trough above goal range. D/W Dr Ahn, recommend to reduce to 1000mg IV q12h. Re-check trough Monday. Pharmacy Service will continue to monitor and adjust dosing as required. Pharmacy to order these labs: Trough - Vancomycin Labs to be done on (date): 05/29/17 Labs to be done (time): 11:00
[2017-05-25] MEDS: Calcium Carb/Vitamin D 1 TABLET Tablet PO (08:25)
[2017-05-25] MEDS: Acetaminophen 325 MG Tablet 650 MG PO (08:26)
[2017-05-25] MEDS: Meloxicam 15 MG Tablet PO (08:26)
[2017-05-25] MEDS: diazePAM 5 MG Tablet PO (08:26)
[2017-05-25 09:30] VITALS: BP 140/76; PULSE 91; RESP 18; TEMP 37.1; O2SAT 99
[2017-05-25] MEDS: amLODIPine 5 MG Tablet PO (10:46)
[2017-05-25] MEDS: Docusate Sodium 100 MG Capsule PO (10:46)
[2017-05-25] MEDS: Doxycycline 100 MG CAPSULE PO (10:46)
--- NOTE | 2017-05-25 11:03 | PCA ---
doctor in with pt
--- NOTE | 2017-05-25 11:14 | PN.SURG_ITS ---
Subjective: Postop #2 Patient has less wound pain and is anxious to go home. Doesn't feel as tired. Home Health has been arranged. - Physical Exam General: Alert, Oriented x3 HEENT: PERRLA, EOMI Neck: Supple Lungs: Clear to auscultation Cardiovascular: Regular rate, Regular Rhythm Abdomen: Soft, Non-Distended Skin: Ulcer/ Wound Lymphatic: - - no axillary adenopathy. Neurological: Cranial nerves II-XII grossly intact Psych/Mental Status: Normal Affect, Appropriate Vital Signs Temp Pulse Resp BP Pulse Ox 98.8 F 91 18 140/76 H 99 05/25/17 09:30 05/25/17 09:30 05/25/17 09:30 05/25/17 09:30 05/25/17 09:30 Oxygen Flow Rate (L/min) 2 Oxygen Delivery Method Room Air Weight: 177 lb 15.984 oz Body Mass Index (BMI) 33.6 Intake and Output for Last 24 Hours 05/23/17 05/24/17 05/25/17 23:59 23:59 23:59 Intake Total 2129 / 2129 3131 / 3131 1607 / 1607 Output Total 1700 / 1700 Balance 429 / 429 3131 / 3131 1607 / 1607 Microbiology Past 72 Hours 05/23/17 11:20 Gram Stain - Final Tissue - Breast Wound Culture - Preliminary Staphylococcus epidermidis Anaerobic Culture - Preliminary Checking for anaerobes, further studies to follow. 05/19/17 14:15 Gram Stain - Final Wound Drainage - Aerobic & Anaerobic Swabs Wound Culture - Final Staphylococcus epidermidis Staphylococcus warneri Bacillus sp., not anthracis Anaerobic Culture - Final No anaerobic bacteria isolated. Assessment/Plan 1. Compromised TRAM flap wound right breast reconstruction. 2. Right breast cancer. 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 5. Disproportion reconstructed breasts. 6. Late effect radiation right breast. 7. Estrogen receptor status negative. 8. Former smoker. 9. s/p surgical preparation right breast reconstruction with excisional debridement compromised TRAM flap (256 cm2). 10. MRSE. 11. Anemia of chronic disease, stable. 12. Mildly elevated alkaline phosphatase. 13. Atelectasis, stable. Wound culture from 05/19/17 shows MRSE and Staphylococcus warneri. Continue Vancomycin. Her PICC line is in place. Operative culture also shows MRSE. Anemia of chronic disease is stable. Hgb has been stable from 10.8 on admission to 9.6 today. Her PCP will evaluate her anemia as an outpatient. Her Alkaline Phosphatase has decreased slightly from 141 to 131, but is still slightly elevated. With her history of breast cancer, a CT Abdomen and Pelvis was obtained today. It showed a normal liver. After discharge, plan on being evaluated at [facility] for HBO treatments. Will obtain a CXR for that purpose. It showed some atelectasis, otherwise stable for HBO treatments. Will obtain another CXR as an outpatient to monitor the atelectasis. Prealbumin was 19.4. Encourage nutritional supplementation with protein to help the healing process. VAC in place. Minimal drainage in the canister. Remaining TRAM flap is soft and pink and healing satisfactory with no evidence of residual bruising. Home Health has been arranged and will be discharged today after her afternoon dose of Vancomycin. Discharge home today. Followup [facility] on Monday05/30/17. Wrote script for Vancomycin for the infusion company. Will check weekly labs for monitoring while on Vancomycin (CBC, CMP, ESR, CRP, Vancomycin Trough). Will be able to keep an eye on the Alkaline Phosphatase. Anticipate further decrease. If it increases as an outpatient, will have her evaluated by Oncology. Wrote scripts for Percocet for pain (60 tabs) and for Valium for spasm (30 tabs) .
--- NOTE | 2017-05-25 11:20 | PCM.DC ---
You will use the following diet at home:: Regular, Other - encourage nutritional supplementation with protein to help the healing process. Discharge Activity: May not drive while taking narcotic pain medications., - - elevate head. no heavy lifting. Return to work on:: 07/18/17 - tentative May shower in (days): 2 - may shower on the days the vac is changed. Weight Bearing Status: Weight bearing as tolerated Lifting Restrictions: 20 lbs. Keep extremity elevated above heart level: - - elevate head. Additional Activity Instructions:: wear abdominal binder. Call your doctor if your incision/area has: Continuous Slow Oozing, Sudden Increased Bleeding, Increased Pain/ Swelling, Increased Redness, Foul Smelling Discharge, Swelling at the incision site Call your doctor if you observe: Fever of 101 or Higher, Coldness, Increased Pain, Shortness of breath, Chest pain, Calf discomfort, Uncontrolled pain Suture Line Care: - - home health to assist with vac changes to right breast three times per week at 150 mmHg continuous suction. Change Dressing in (Days):: 2 - vac changes three times per week. Cleanse incision/area with: - - may cleanse the wound with soap and water on the days the vac is changed. Additional Instructions: Home Health to assist with VAC changes to right breast three times per week at 150 mmHg continuous suction. Pending Tests on Discharge: Home Health to draw CBC, CMP, ESR, CRP and Vancomycin Trough qMonday x 6 weeks. Please fax results to Wound Center at [phone]. Pharmacy to dose the Vancomycin. Allergies/Adverse Reactions: Allergies POULTRY Allergy (Uncoded 05/19/17 09:45) Anaphylaxis Medications to take at Discharge Sertraline HCl [Zoloft] 150 mg PO DAILY 01/11/16 Trazodone HCl 50 mg PO QHS 04/20/16 Amlodipine [Norvasc] 5 mg PO DAILY PRN 04/25/17 Calcium Carbonate/Vitamin D3 [Calcium 500-Vit D3 600 Tablet] 1 ea PO DAILY PRN 04/25/17 Meloxicam [Mobic] 15 mg PO DAILY PRN 04/25/17 ProMETHAzine [Phenergan] 25 mg PO 4X/DAY PRN PRN #30 tab 05/10/17 Docusate Sodium [Colace] 100 mg PO BID 05/19/17 Vancomycin 1,000 mg IV Q12H #76 bag 05/24/17 Amlodipine [Norvasc] 5 mg PO DAILY tablet 05/25/17 Calcium Carb/Vitamin D [Os-Skinny 500MG + D] 1 tablet PO DAILY@0800 tablet 05/25/17 Diazepam [Valium] 5 mg PO 4X/DAY PRN PRN #30 tab 05/25/17 Docusate Sodium [Colace] 100 mg PO BID capsule 05/25/17 Lactobacillus Acidophilus [Acidophilus] 1 tablet PO BID tablet 05/25/17 Meloxicam [Mobic] 15 mg PO DAILY PRN tablet 05/25/17 Oxycodone HCl/Acetaminophen [Percocet 5-325] 1 - 2 tab PO 4X/DAY PRN PRN 7 Days #60 tab 05/25/17 ProMETHAzine [Phenergan] 25 mg PO Q4H PRN PRN tablet 05/25/17 Sertraline HCl [Zoloft] 150 mg PO DAILY@0600 tablet 05/25/17 Trazodone HCl [Desyrel] 50 mg PO QHS tablet 05/25/17 The following prescriptions were given: Diazepam [Valium] 5 mg PO 4X/DAY PRN PRN #30 tab PRN Reason: Spasms Oxycodone HCl/Acetaminophen [Percocet 5-325] 1 - 2 tab PO 4X/DAY PRN PRN 7 Days #60 tab PRN Reason: Pain Vancomycin 1,000 mg IV Q12H #76 bag Primary Care Physician: Josué Price MD [Primary Care Provider] - Please Follow Up With: Junior Ahn MD - call [phone] if any questions. When: monday05/30/17 at [facility] at 130 pm. Proposed Discharge Date: 05/25/17
--- NOTE | 2017-05-25 11:28 | DS.PCM_ITS ---
Discharge Date and Diagnosis Date of Admission: 05/19/17 Date of Discharge: 05/25/17 - Primary Discharge Diagnosis Compromised TRAM flap wound right breast reconstruction with partial loss. Right breast cancer. MRSE. Increased alkaline phosphatase. 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 Disproportion reconstructed breasts. Cancerphobia left breast. Smoker, quit for the surgery. Estrogen receptor negative status [ER-]. H/o hematoma right TRAM flap breast reconstruction. Anemia of chronic disease. Atelectasis. Hospital Course and Treatment Imaging Results: Abdomen/Pelvis CT 05/24/17 10:03 IMPRESSION: Postoperative changes are seen at the site of right mastectomy with a small amount of air deep in the subcutaneous tissues extending into the lateral anterior abdominal wall. Electronically Signed: Jin Kingston MD at 11:02 EST Tel [phone], Service support , Chest X-Ray 05/24/17 10:03 IMPRESSION: Findings suggestive of postoperative changes in the right breast. Increased markings at the lung bases worse on the right side suggestive bibasilar atelectasis. Electronically Signed: Jin Kingston MD at 11:22 EST Tel [phone], Service support , Consultations 05/19/17 14:23 Consult: Onc/Wound/aoc operations intelligence chief Routine Comment: Reason for Consult:: right breast wound Operations: None, - - 05/23/17 - Surgical preparation right breast reconstruction with excisional debridement compromised TRAM flap (256 cm2). Procedures: PICC line placement, Wound vac placement Summary of Care Provided: The patient is a 47 year old F who presented for evaluation breast reconstruction. Her initial bilateral mastectomy was on 01/12/16. She underwent IV chemotherapy initially and this was followed by radiation therapy to the right breast. She finished the radiation therapy in 10/03. She states that during this adjuvant therapy, she has gained a little weight and has developed some extra tissue in the lower anterior abdominal wall. The last time I saw her in 03/04, she was interested in breast reconstruction with placement of implants. Now she is contemplating the use of autogenous tissue for the radiated right breast. She denies any fever. She states she has stopped smoking since her diagnosis of breast cancer. On 05/02/17, the patient underwent delayed right breast reconstruction with unipedicle contralateral TRAM flap and abdominal wall reconstruction with placement of Strattice acellular dermal matrix graft (100 cm2) and revision radiation scar contour deformity right breast with multiple W-plasties (40 cm2) . Patient tolerated the procedure well. Due to the length of the procedure, postop Lovenox was given daily. On the third postop day, she felt tired and looked pale. Her Hgb had decreased to 7.8. The breast was firm and swollen. There was more moderate bruising. The patient developed a hematoma and was taken to the OR on this day and underwent surgical preparation right breast TRAM flap reconstruction with incision and drainage and evacuation hematoma. Besides evacuating the hematoma , operative intervention was done to take pressure off the blood supply to the flap. This will help the salvage the flap. 2 units of PRBC was also given. The wound was left open and dressing changes with Silver dressings was started. Discussed with the patient that VAC may be used in the future. Discussed with the patient that because of the length of the surgery, Lovenox was necessary to give to minimize blood clots and PE. However, with the added protection comes the risk of bleeding from the Lovenox. The important thing is to recognize the risk and take care of the bleeding if it occurs to minimize further damage and compromise to the flap. Postoperatively, there was improvement in the bruising. Some of the blistering was debrided in the OR and the underlying dermis appeared more viable. The central aspect of the flap was soft and viable. Her Hgb improved to 10.5 after the PRBC. A few days later, there was some dry eschar forming inferiorly. It remained stable the rest of the hospitalization. No progression of the eschar was noted. There was no clinical evidence of infection. The flap remained soft as well. The central aspect of the flap remained viable. The patient developed increased discomfort with the dressing changes because of pressure from the packing. She was able to tolerate the dressing changes reasonably well in anticipation of discharge on the eighth postop day on 05/10/17. Her drainage output from both the breast and the abdomen ranged from a high of 645 ml on the first postop day to 55 ml on the day of discharge. I saw her in the office every day or every other day for evaluation and debridement. It was noted that the Silver dressings were drying out the wound. So it was decided to change to Dakin's dressing changes which was ordered. On 05/19/17, the patient came in for a wound check and debridement, and she felt cruddy and had a low grade fever. Therefore it was recommended to the patient to be admitted for IV antibiotics and more aggressive wound care with Dakin's since she hadn't started it yet as an outpatient. Zosyn antibiotics were started. MRSA by DNA PCR was negative. After a few days of sharp debridement with a curette, some bleeding was seen but not enough as there were persistent areas of eschar and tissue compromise. It was discussed with the patient to proceed with operative debridement for more definitive treatment since the patient was getting frustrated at watching more and more tissue being debrided at her bedside. The day before surgery on 05/22/17, the initial culture from admission showed MRSE and Stapylococcus warneri. So the Zosyn was stopped and Vancomycin was started. Ceftriaxone was not sensitive. Because she will need IV antibiotics after discharge, a PICC line was placed. So on 05/23/17, she was taken to OR where she underwent surgical preparation right breast reconstruction with excisional debridement compromised TRAM flap ( 256 cm2). A portion of the TRAM flap remained viable right over the muscle pedicle and was secured to the inferomedial aspect of the wound. She tolerated the procedure well. Additional cultures were sent. The VAC was applied tomorrow. The remaining flap stayed soft and pink and viable for the rest of the hospitalization. Her Alkaline Phosphatase decreased slightly from 141 on 05/19/17 to 131 on . It was still slightly elevated and because of her history of breast cancer , a CT Abdomen and Pelvis was done. It showed a normal liver. Will still monitor the Alkaline Phosphatase after discharge because she is on Vancomycin. I anticipate it will continue to decrease, but if it increases then will need evaluation by Oncology. Her Prealbumin was 19.4 on admission. Encourage nutritional supplementation with protein to help the healing process. Her anemia of chronic disease was stable during her hospital stay as her Hgb was 10.8 on admission and 9.6 at discharge. She will followup with her PCP as an outpatient to further evaluate her chronic anemia. Because of her history of radiation to her right breast, she will be evaluated at the Wound Center for HBO treatments while she is getting her wound care with the VAC. A CXR was done which showed some atelectasis but was otherwise ok for HBO treatments. As an outpatient, will check another CXR to further monitor her atelectasis to make sure it resolves. On the 2nd postop day and the 6th hospital day, we were able to arrange Home Health and the infusion company to arrange the antibiotics, and she was discharged home. Wrote script for the Vancomycin. Wrote scripts for Percocet for pain (60 tabs) and for Valium for spasm (30 tabs) . Condition upon discharge stable. After her antibiotics, and HBO treatments, and wound care with the VAC, will reassess the wound at that time to determine the next step in the revision right breast reconstruction process. Discharge Activity: May not drive while taking narcotic pain medications., - - elevate head. no heavy lifting. Return to work on:: 07/18/17 - tentative May shower in (days): 2 - may shower on the days the vac is changed. Weight Bearing Status: Weight bearing as tolerated Keep extremity elevated above heart level: - - elevate head. Additional Activity Instructions:: wear abdominal binder. Call your doctor if your incision/area has: Continuous Slow Oozing, Sudden Increased Bleeding, Increased Pain/ Swelling, Increased Redness, Foul Smelling Discharge, Swelling at the incision site Call your doctor if you observe: Fever of 101 or Higher, Coldness, Increased Pain, Shortness of breath, Chest pain, Calf discomfort, Uncontrolled pain Suture Line Care: - - home health to assist with vac changes to right breast three times per week at 150 mmHg continuous suction. Change Dressing in (Days):: 2 - vac changes three times per week. Cleanse incision/area with: - - may cleanse the wound with soap and water on the days the vac is changed. Home Medications: Medications to take at Discharge Sertraline HCl [Zoloft] 150 mg PO DAILY 01/11/16 Trazodone HCl 50 mg PO QHS 04/20/16 Amlodipine [Norvasc] 5 mg PO DAILY PRN 04/25/17 Calcium Carbonate/Vitamin D3 [Calcium 500-Vit D3 600 Tablet] 1 ea PO DAILY PRN 04/25/17 Meloxicam [Mobic] 15 mg PO DAILY PRN 04/25/17 ProMETHAzine [Phenergan] 25 mg PO 4X/DAY PRN PRN #30 tab 05/10/17 Docusate Sodium [Colace] 100 mg PO BID 05/19/17 Vancomycin 1,000 mg IV Q12H #76 bag 05/24/17 Amlodipine [Norvasc] 5 mg PO DAILY tablet 05/25/17 Calcium Carb/Vitamin D [Os-Skinny 500MG + D] 1 tablet PO DAILY@0800 tablet Diazepam [Valium] 5 mg PO 4X/DAY PRN PRN #30 tab 05/25/17 Docusate Sodium [Colace] 100 mg PO BID capsule 05/25/17 Lactobacillus Acidophilus [Acidophilus] 1 tablet PO BID tablet 05/25/17 Meloxicam [Mobic] 15 mg PO DAILY PRN tablet 05/25/17 Oxycodone HCl/Acetaminophen [Percocet 5-325] 1 - 2 tab PO 4X/DAY PRN PRN 7 Days #60 tab 05/25/17 ProMETHAzine [Phenergan] 25 mg PO Q4H PRN PRN tablet 05/25/17 Sertraline HCl [Zoloft] 150 mg PO DAILY@0600 tablet 05/25/17 Trazodone HCl [Desyrel] 50 mg PO QHS tablet 05/25/17 Following Prescrptions Were Given to Patient: Diazepam [Valium] 5 mg PO 4X/DAY PRN PRN #30 tab PRN Reason: Spasms Oxycodone HCl/Acetaminophen [Percocet 5-325] 1 - 2 tab PO 4X/DAY PRN PRN 7 Days #60 tab PRN Reason: Pain Vancomycin 1,000 mg IV Q12H #76 bag Primary Care Physician: Josué Price MD [Primary Care Provider] - Please Follow Up With: Junior Ahn MD - call [phone] if any questions. When: monday05/30/17 at [facility] at 130 pm. Meaningful Use Info Meaningful Use Diagnoses (Choose all that apply): None applicable
--- NOTE | 2017-05-25 11:28 | DCINST_ITS ---
You will use the following diet at home:: Regular, Other - encourage nutritional supplementation with protein to help the healing process. Discharge Activity: May not drive while taking narcotic pain medications., - - elevate head. no heavy lifting. Return to work on:: 07/18/17 - tentative May shower in (days): 2 - may shower on the days the vac is changed. Weight Bearing Status: Weight bearing as tolerated Lifting Restrictions: 20 lbs. Keep extremity elevated above heart level: - - elevate head. Additional Activity Instructions:: wear abdominal binder. Call your doctor if your incision/area has: Continuous Slow Oozing, Sudden Increased Bleeding, Increased Pain/ Swelling, Increased Redness, Foul Smelling Discharge, Swelling at the incision site Call your doctor if you observe: Fever of 101 or Higher, Coldness, Increased Pain, Shortness of breath, Chest pain, Calf discomfort, Uncontrolled pain Suture Line Care: - - home health to assist with vac changes to right breast three times per week at 150 mmHg continuous suction. Change Dressing in (Days):: 2 - vac changes three times per week. Cleanse incision/area with: - - may cleanse the wound with soap and water on the days the vac is changed. Additional Instructions: Home Health to assist with VAC changes to right breast three times per week at 150 mmHg continuous suction. Pending Tests on Discharge: Home Health to draw CBC, CMP, ESR, CRP and Vancomycin Trough qMonday x 6 weeks. Please fax results to Wound Center at [phone]. Pharmacy to dose the Vancomycin. Allergies/Adverse Reactions: Allergies POULTRY Allergy (Uncoded 05/19/17 09:45) Anaphylaxis Medications to take at Discharge Sertraline HCl [Zoloft] 150 mg PO DAILY 01/11/16 Trazodone HCl 50 mg PO QHS 04/20/16 Amlodipine [Norvasc] 5 mg PO DAILY PRN 04/25/17 Calcium Carbonate/Vitamin D3 [Calcium 500-Vit D3 600 Tablet] 1 ea PO DAILY PRN 04/25/17 Meloxicam [Mobic] 15 mg PO DAILY PRN 04/25/17 ProMETHAzine [Phenergan] 25 mg PO 4X/DAY PRN PRN #30 tab 05/10/17 Docusate Sodium [Colace] 100 mg PO BID 05/19/17 Vancomycin 1,000 mg IV Q12H #76 bag 05/24/17 Amlodipine [Norvasc] 5 mg PO DAILY tablet 05/25/17 Calcium Carb/Vitamin D [Os-Skinny 500MG + D] 1 tablet PO DAILY@0800 tablet Diazepam [Valium] 5 mg PO 4X/DAY PRN PRN #30 tab 05/25/17 Docusate Sodium [Colace] 100 mg PO BID capsule 05/25/17 Lactobacillus Acidophilus [Acidophilus] 1 tablet PO BID tablet 05/25/17 Meloxicam [Mobic] 15 mg PO DAILY PRN tablet 05/25/17 Oxycodone HCl/Acetaminophen [Percocet 5-325] 1 - 2 tab PO 4X/DAY PRN PRN 7 Days #60 tab 05/25/17 ProMETHAzine [Phenergan] 25 mg PO Q4H PRN PRN tablet 05/25/17 Sertraline HCl [Zoloft] 150 mg PO DAILY@0600 tablet 05/25/17 Trazodone HCl [Desyrel] 50 mg PO QHS tablet 05/25/17 The following prescriptions were given: Diazepam [Valium] 5 mg PO 4X/DAY PRN PRN #30 tab PRN Reason: Spasms Oxycodone HCl/Acetaminophen [Percocet 5-325] 1 - 2 tab PO 4X/DAY PRN PRN 7 Days #60 tab PRN Reason: Pain Vancomycin 1,000 mg IV Q12H #76 bag Primary Care Physician: Josué Price MD [Primary Care Provider] - Please Follow Up With: Junior Ahn MD - call [phone] if any questions. When: monday05/30/17 at [facility] at 130 pm. Proposed Discharge Date: 05/25/17
== END 2017-05-25 18:10 | disposition home health service (06) | DRG 217 ==
PROVIDERS: Admitting Provider Surgery; Family Provider Internal Medicine; PCP Internal Medicine; Visit Provider Surgery
DX: T84.89XA Other specified complication of internal orthopedic prosthetic devices, implants and grafts, initial encounter (principal); D63.8 Anemia in other chronic diseases classified elsewhere; J98.11 Atelectasis; Z87.891 Personal history of nicotine dependence; Z85.3 Personal history of malignant neoplasm of breast; R74.8 Abnormal levels of other serum enzymes; L59.8 Other specified disorders of the skin and subcutaneous tissue related to radiation
CPT/HCPCS: 36415; 36569; 71046; 74176; 80048; 80053; 80202; 84134; 85027; 85652; 86140; 87015; 87070; 87075; 87077; 87102; 87116; 87186; 87205; 87206; 87640; 88305; 97802; 99406; J3010; J7040; J7050; J7120; A4216; J2405

== ENCOUNTER → 2017-05-31 11:52 | Outpatient (CLI) | payer MEDICAID, SELFPAY ==
--- NOTE | 2017-05-31 12:00 | NURSING ---
PT ARRIVED TO OUTPT INFUSION SUITE. NOTED NO DRESSING ON PICC LINE & NOTED EXTERNAL MARKING OF PICC LINE @ 0 CM & INSERTION SITE ALSO NOTED STATLOCK TAPED TO PT'S ARM. PT STATES I WAS HAVING PROBLEMS WITH GETTING IT TO DRAW BLOOD AND I THOUGHT IT MIGHT BE BECAUSE OF THE DRESSING, SO I TOOK IT OFF. PT STATES SHE HAD JUST REMOVED THE DRESSING THIS MORNING PRIOR TO COMING INTO HOSPITAL. PT ALSO STATED THAT IT CAME OUT A LITTLE AND I THOUGHT IT WAS OUT MORE THAN IT WAS SUPPOSED TO BE, SO I PUSHED IT BACK IN. PT SHOWED THIS NURSE THAT THE LENGTH SHE HAD REINSERTED IT WAS APPROX 2-3 CM. THIS NURSE NOTED ON DOCUMENTATION OF WHEN PICC WAS PLACED, EXTERNAL MEASUREMENT WAS AT 3 CM. LEFT ARM/PICC INSERTION AREA CLEANSED VERY WELL USING STERILE TECHNIQUE. PICC LINE WITHDRAWN 3 CM AT THIS TIME AND WHEN DOING SO, NOTED PICC LINE MIGRATED OUT AN ADDITIONAL 1 CM, LEAVING EXTERNAL MEASUREMENT NOW AT 4 CM. LEFT ARM/PICC INSERTION AREA AND EXTERNAL PICC LINE CLEANSED WELL AGAIN USING STERILE TECHNIQUE. STERILE STATLOCK AND STERILE DSG APPLIED. DISCUSSED WITH PATIENT IN LENGTH AND IN DETAIL THE IMPORTANCE OF WHY DRESSING SHOULD NEVER BE REMOVED OR CHANGED BY ANYONE OTHER THAN A TRAINED RN, WHY PICC LINE SHOULD NEVER BE TOUCHED, PUSHED IN/RE-INSERTED, WHY PICC LINE INSERTION SITE SHOULD ALWAYS BE KEPT COVERED AND STERILE TECHNIQUE IS NEEDED WHEN ANY DRESSING CHANGES ARE DONE. DISCUSSED WITH PT AND INSTRUCTED HER ON THE HIGH RISKS OF INFECTION AND RISK OF INCORRECT PLACEMENT AND DANGERS OF PICC LINE IF IT IS ADVANCED. THIS NURSE ALSO INSTRUCTED PT ON S/SX'S OF INFECTION TO MONITOR FOR: DRAINAGE, OOZING, REDNESS, STREAK OF RED, SWELLING, FEVER, PAIN AND INSTRUCTED TO NOTIFY HOME HEALTH NURSE OR DR IMMEDIATELY IF NOTICES ANY OF THESE THINGS OR ANY OTHER CHANGES OR GO TO ED. PT VOICED UNDERSTANDING OF ALL OF THE ABOVE. DR MILLER NOTIFIED THAT PT HAD ARRIVED @ INFUSION SUITE WITH NO DRESSING COVERING PICC AND THAT SHE REPORTED SHE THOUGHT HER PICC LINE WAS OUT FURTHER THAN IT WAS SUPPOSED TO BE, SO SHE PUSHED IT BACK IN & THAT THIS NURSE INSTRUCTED/DISCUSSED W/PT IN DETAIL RISKS OF INFECTION AND IMPORTANCE OF NEVER REMOVING DRESSING OR RE-INSERTING PICC LINE. DR MILLER ALSO NOTIFIED THAT PICC FLUSHES EASILY BUT NO BLOOD RETURN. DR MILLER ORDERED CATHFLO ACTIVASE. NO OTHER ORDERS RECEIVED. THIS NURSE ALSO NOTIFIED PT'S HOME HEALTH AGENCY OF ALL OF THE ABOVE. THIS RN SPOKE W/[facility]ayito FROM [facility]. CATHFLO ACTIVASE WAS INSTILLED ORDERED AND W/GOOD RESULTS--+BLOOD RETURN. SEE DECLOTTING INTERVENTION. PT HAD 1000 AM VANCO DOSE DUE BUT D/T ALL OF THE ABOVE, SHE DID NOT BEGIN HER VANCO DOSE UNTIL 1330 AFTER BEING DISCHARGED FROM OUT-PT INFUSION SUITE. DR MILLER NOTIFIED AND STATED TO HAVE PT HOLD/NOT GIVE HER 2200 DOSE THIS PM & RESUME HER 1000 DOSE TOMORROW MORNING. PT MADE AWARE OF THIS AND CHAYITO FROM [facility] ALSO MADE AWARE.
[2017-05-31] MEDS: Alteplase 2 MG/2 ML Vial IV (12:49)
--- NOTE | 2017-06-12 22:39 | PCM.WC.PN ---
Type of Wound Date of Service: 06/12/17 Chief Complaint: Compromised TRAM flap right breast reconstruction with nonhealing radiation wound. History of Wound: Surgery 05/23/17 - Surgical preparation right breast reconstruction with excisional debridement compromised TRAM flap (256 cm2). Surgery 05/05/17 - Surgical preparation right breast TRAM flap reconstruction with incision and drainage and evacuation hematoma. Surgery 05/02/17 - 1. Delayed right breast reconstruction with unipedicle contralateral TRAM flap. 2. Abdominal wall reconstruction with placement of Strattice acellular dermal matrix graft (100 cm2). 3. Revision radiation scar contour deformity right breast with multiple W-plasties (40 cm2). Wound care - VAC. Operative culture - MRSE, and Staphylococcus warneri, and Acinetobacter lwoffi. She has been on IV Vancomycin and PO Levaquin. Prealbumin was 19.4 on 05/19/17. While in the hospital she had slightly elevated Alkaline Phosphatase at 141 that decreased to 131. CT Abdomen showed no pathology in the liver. She also has a CXR in preparation for HBO treatments. It showed no infiltrate. There was some atelectasis. Will repeat the LFT's to continue to monitor them. Today she denies fever. Her appetite is ok. She is planning on starting HBO today for compromised TRAM flap and for soft tissue radionecrosis. Progress of Wound: Slightly improved. #1 Right breast. Stage 3. Pre Debridement Measurements - 12 x 13.8 x 2.5 cm (165.60 cm2). Debridement Note Wound debrided: #1 Right breast. Laterality: Right Wound Grade/Stage: 3. Type of Debridement: Excisional debridement Anesthesia Used: 4% Lidocaine Solution Depth: Down to and including healthy tissue, in the subcutaneous layer Percentage of wound debrided: 100 Instrument Used: 7mm curette Tissue Removed: subcutaneous tissue. Severity: Fat Layer Exposed Amount of bleeding with debridement: Mild Bleeding Controlled with: Pressure Patient tolerated procedure well, - - Post Debridement Measurements - 12 x 13.9 x 2.5 cm (166.8 cm2). Assessment/Plan Assessment: 1. Compromised TRAM flap wound right breast reconstruction. 2. Right breast cancer. 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 5. Disproportion reconstructed breasts. 6. Late effect radiation right breast. 7. Estrogen receptor status negative. 8. Former smoker. 9. s/p delayed right breast reconstruction with unipedicle contralateral TRAM flap and abdominal wall reconstruction with placement of Strattice acellular dermal matrix graft (100 cm2) and revision radiation scar contour deformity right breast with multiple W-plasties (40 cm2). 10. s/p surgical preparation right breast TRAM flap reconstruction with incision and drainage and evacuation hematoma. 11. s/p surgical preparation right breast reconstruction with excisional debridement compromised TRAM flap (256 cm2). Plan: Radiation wound is slowly improving. The remaining flap is soft and viable. Continue Vancomycin for the MRSE and Staphylococcus warneri. For the Acinetobacter, will continue Levaquin. Will check her weekly labs that is normally done for IV antibiotics. So will keep an eye on her alkaline phosphatase. If it rises further, then evaluation with Oncology would be done. Her CXR showed atelectasis. It is ok for HBO. Will repeat the CXR in the near future to make sure the atelectasis continues to resolve. Renewed her Percocet for pain (60 tabs) and for Valium for spasm (30 tabs). 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 It will also help her compromised flap as well. The HBO will also be helpful in preparation for further flap reconstruction to complete her right breast reconstruction. She will start HBO treatments today. Followup one week.
== END ==
PROVIDERS: Family Provider Internal Medicine; PCP Internal Medicine; Visit Provider Surgery
DX: Z45.2 Encounter for adjustment and management of vascular access device (principal)
CPT/HCPCS: 36593; J2997; A4216

== ENCOUNTER 2017-06-16 13:00 | Outpatient (RCR) | payer MEDICAID, SELFPAY ==
[2017-05-30 14:35] VITALS: BP 112/58; PULSE 94; RESP 18; TEMP 37.2; BMI 33.0
--- NOTE | 2017-05-30 22:11 | PN.PCM_ITS ---
Type of Wound Date of Service: 05/30/17 Chief Complaint: Compromised TRAM flap right breast reconstruction with nonhealing radiation wound. History of Wound: Surgery 05/23/17 - Surgical preparation right breast reconstruction with excisional debridement compromised TRAM flap (256 cm2). Surgery 05/05/17 - Surgical preparation right breast TRAM flap reconstruction with incision and drainage and evacuation hematoma. Surgery 05/02/17 - 1. Delayed right breast reconstruction with unipedicle contralateral TRAM flap. 2. Abdominal wall reconstruction with placement of Strattice acellular dermal matrix graft (100 cm2). 3. Revision radiation scar contour deformity right breast with multiple W-plasties (40 cm2). Wound care - VAC. Operative culture - MRSE, and Staphylococcus warneri, and Acinetobacter lwoffi. She has been on IV Vancomycin. Will add Levaquin for the Acinetobacter. Prealbumin was 19.4 on 05/19/17. While in the hospital she had slightly elevated Alkaline Phosphatase at 141 that decreased to 131. CT Abdomen showed no pathology in the liver. She also has a CXR in preparation for HBO treatments. It showed no infiltrate. There was some atelectasis. Today she denies fever. Her appetite is ok. Progress of Wound: Recent surgery on 05/23/17. - Physical Exam Vital Signs Temp Pulse Resp BP 98.9 F 94 18 112/58 L 05/30/17 14:35 05/30/17 14:35 05/30/17 14:35 05/30/17 14:35 HEENT: TM's Clear - No bleeding. No fluid behind the TM. Lungs: Clear to auscultation Cardiovascular: Regular rate, Regular Rhythm Wound Measurements and Assessment WC - Nurse 1 - General Ulcer Measurement Start: 05/30/17 13:48 Freq: Status: Active Protocol: Activity Type Activity Date Activity User E-Sign Co-Sign Detail Recorded Client Recorded Date Recorded By Document 05/30/17 14:35 TM [id number] 05/30/17 14:47 TM 05/30/17 14:35 Wound Center Nurse 1 [Ulcer Assessment] #1 Right breast Tram flap failure -Combined with other wound No -Current Size (cm) - Length 12.0 -Current Size (cm) - Width 18.0 -Current Size (cm) - Depth 2.5 -Total Square Cm 216.00 -Date of Last Picture (Recall this 05/30/17 field) -Photo Taken Yes -Epithelialization Small 1-33% -Tunneling No -Undermining/Tunneling No -Circular Undermining No -Classification - Thickness Full Thickness without Exposed Support Structure -Exudate Amt Large (67-100%) -Exudate Type Serosanguineous -Wound Margin Fibrotic Scar, Thickened Scar -Granulation Amt Large (67-100%) -Granulation Quality [place] -Slough/Fibrin Yes -Necrosis Amt Medium (34-66%) -Necrotic Tissue Type Adherent Slough -Structure Exposed Fascia Fat Layer Exposed -Texture (Meghana-wound Skin Appearance) Localized Edema Scarring -Moisture (Meghana-wound Skin Appearance No Abnormality ) -Color (Meghana-wound Skin Appearance) Erythema -Temperature (Meghana-wound Skin No Abnormality Appearance) (Pt Warm) -Tenderness on Palpation (Meghana-wound No Skin Appearance) -Ulcer Cleansing Rinsed/ Irrigated with Saline -Foul Odor after Cleansing No -Anesthetic Used 4% Lidocaine Solution [Edema Assessment] -Lower Limb Edema Present No WC - Nurse 2 - General Ulcer CM Notes Start: 05/30/17 13:48 Freq: Status: Active Protocol: Activity Type Activity Date Activity User E-Sign Co-Sign Detail Recorded Client Recorded Date Recorded By Document 05/30/17 15:12 [email or web address] [id number] 05/30/17 15:13 05/30/17 15:12 Wound Center Nurse 2 [Procedure/Treatment] #1 Right breast Tram flap failure -Correct Patient No -Correct Side, Site, Position No -Correct Procedure No -Procedure Performed No [See Physician Procedure note for Specifics] Pain Scale: 0-10 Numeric [Pain] -Is Patient Pain Free? Yes Debridement Note Post-Debridement Measurements/Treatment WC - Nurse 2 - General Ulcer CM Notes Start: 05/30/17 13:48 Freq: Status: Active Protocol: Activity Type Activity Date Activity User E-Sign Co-Sign Detail Recorded Client Recorded Date Recorded By Document 05/30/17 15:12 [id number] 05/30/17 15:13 05/30/17 15:12 Wound Center Nurse 2 #1 Right breast Tram flap failure -Correct Patient No -Correct Side, Site, Position No -Correct Procedure No -Procedure Performed No Pain Scale: 0-10 Numeric Is Patient Pain Free? Yes Wound debrided: #1 Right breast. Laterality: Right Wound Grade/Stage: 3. No debridement was completed today - She had recent surgery on 05/23/17. Assessment/Plan Assessment: 1. Compromised TRAM flap wound right breast reconstruction. 2. Right breast cancer. 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 5. Disproportion reconstructed breasts. 6. Late effect radiation right breast. 7. Estrogen receptor status negative. 8. Former smoker. 9. s/p delayed right breast reconstruction with unipedicle contralateral TRAM flap and abdominal wall reconstruction with placement of Strattice acellular dermal matrix graft (100 cm2) and revision radiation scar contour deformity right breast with multiple W-plasties (40 cm2). 10. s/p surgical preparation right breast TRAM flap reconstruction with incision and drainage and evacuation hematoma. 11. s/p surgical preparation right breast reconstruction with excisional debridement compromised TRAM flap (256 cm2). 12. Atelectasis. Plan: Radiation wound is slowly improving. The remaining flap is soft and viable. Continue Vancomycin for the MRSE and Staphylococcus warneri. For the Acinetobacter, will continue Levaquin. Will check her weekly labs that is normally done for IV antibiotics. So will keep an eye on her alkaline phosphatase. If it rises further, then evaluation with Oncology would be done. Her CXR showed atelectasis. It is ok for HBO. Will repeat the CXR in the near future to make sure the atelectasis continues to resolve. She states the Percocet was not completely helping her pain. Wrote a script for Dilaudid fro Severe pain (40 tabs). 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 It will also help her compromised flap as well. The HBO will also be helpful in preparation for further flap reconstruction to complete her right breast reconstruction. Followup one week.
--- NOTE | 2017-05-31 15:39 | NURSING ---
At 1519 this nurse called pt to discuss HBO and the need for her radiation records in order to proceed with insurance pre-authorization. Pt did not answer, message was left to return call.
[2017-06-05 11:58] VITALS: BP 93/65; PULSE 86; RESP 18; TEMP 37.2; BMI 33.0
--- NOTE | 2017-06-05 18:11 | PCM.WC.PN ---
Type of Wound Date of Service: 06/05/17 Chief Complaint: Compromised TRAM flap right breast reconstruction with nonhealing radiation wound. History of Wound: Surgery 05/23/17 - Surgical preparation right breast reconstruction with excisional debridement compromised TRAM flap (256 cm2). Surgery 05/05/17 - Surgical preparation right breast TRAM flap reconstruction with incision and drainage and evacuation hematoma. Surgery 05/02/17 - 1. Delayed right breast reconstruction with unipedicle contralateral TRAM flap. 2. Abdominal wall reconstruction with placement of Strattice acellular dermal matrix graft (100 cm2). 3. Revision radiation scar contour deformity right breast with multiple W-plasties (40 cm2). Wound care - VAC. Operative culture - MRSE, and Staphylococcus warneri, and Acinetobacter lwoffi. She has been on IV Vancomycin. Will add Levaquin for the Acinetobacter. Prealbumin was 19.4 on 05/19/17. While in the hospital she had slightly elevated Alkaline Phosphatase at 141 that decreased to 131. CT Abdomen showed no pathology in the liver. She also has a CXR in preparation for HBO treatments. It showed no infiltrate. There was some atelectasis. Today she denies fever. Her appetite is ok. Progress of Wound: Recent surgery on 05/23/17. - Physical Exam Vital Signs Temp Pulse Resp BP 98.9 F 86 18 93/65 06/05/17 11:58 06/05/17 11:58 06/05/17 11:58 06/05/17 11:58 Wound Measurements and Assessment WC - Nurse 1 - General Ulcer Measurement Start: 05/30/17 13:48 Freq: Status: Active Protocol: Activity Type Activity Date Activity User E-Sign Co-Sign Detail Recorded Client Recorded Date Recorded By Document 06/05/17 11:58 [id number] 06/05/17 12:05 06/05/17 11:58 Wound Center Nurse 1 [Ulcer Assessment] #1 Right breast Tram flap failure -Combined with other wound No -Current Size (cm) - Length 10.9 -Current Size (cm) - Width 14.9 -Current Size (cm) - Depth 2.7 -Total Square Cm 162.41 -Photo Taken No -Epithelialization Small 1-33% -Tunneling No -Undermining/Tunneling Yes -Undermining/Tunneling Starts (O' 10 clock) -Undermining/Tunneling Ends (O'clock) 2 -Maximum Distance (cm) 1.4 -Circular Undermining No -Classification - Thickness Full Thickness without Exposed Support Structure -Exudate Amt Medium (34-66%) -Exudate Type Serosanguineous -Wound Margin Fibrotic Scar, Thickened Scar -Granulation Amt Medium (34-66%) -Granulation Quality Red -Slough/Fibrin Yes -Necrosis Amt Medium (34-66%) -Necrotic Tissue Type Adherent Slough -Structure Exposed Fascia Fat Layer Exposed -Texture (Meghana-wound Skin Appearance) Localized Edema Scarring -Moisture (Meghana-wound Skin Appearance No Abnormality ) -Color (Meghana-wound Skin Appearance) Erythema -Temperature (Meghana-wound Skin No Abnormality Appearance) (Pt Warm) -Tenderness on Palpation (Meghana-wound Yes Skin Appearance) -Ulcer Cleansing Rinsed/ Irrigated with Saline -Foul Odor after Cleansing No -Anesthetic Used 4% Lidocaine Solution [Edema Assessment] -Lower Limb Edema Present No WC - Nurse 2 - General Ulcer CM Notes Start: 05/30/17 13:48 Freq: Status: Active Protocol: Activity Type Activity Date Activity User E-Sign Co-Sign Detail Recorded Client Recorded Date Recorded By Document 06/05/17 12:29 RITA [id number] 06/05/17 12:31 RITA 06/05/17 12:29 Wound Center Nurse 2 [Procedure/Treatment] #1 Right breast Tram flap failure -Time 12:30 -Correct Patient Yes -Correct Side, Site, Position Yes -Correct Procedure Yes -Procedure Performed Yes -Type of Procedure Debridement -Clinical Debridement Subcutaneous -Post Debridement Size (cm) - Length 11 -Post Debridement Size (cm) - Width 15 -Post Debridement Size (cm) - Depth 2.7 -Total Square Cm 165 -Wound/Ulcer Outcome Not Healed -Ulcer Cleansing Rinsed/ Irrigated with Saline -Foul Odor after Cleansing No -Bioengineered Tissue No -Bleeding Controlled with Pressure -Treatment Response Procedure Tolerated Well [See Physician Procedure note for Specifics] Pain Scale: 0-10 Numeric [Pain] -Is Patient Pain Free? Yes Debridement Note Post-Debridement Measurements/Treatment WC - Nurse 2 - General Ulcer CM Notes Start: 05/30/17 13:48 Freq: Status: Active Protocol: Activity Type Activity Date Activity User E-Sign Co-Sign Detail Recorded Client Recorded Date Recorded By Document 05/30/17 15:12 [id number] 05/30/17 15:13 Document 06/05/17 12:29 [id number] 06/05/17 12:31 05/30/17 06/05/17 15:12 12:29 Wound Center Nurse 2 #1 Right breast Tram flap failure -Time 12:30 -Correct Patient No Yes -Correct Side, Site, Position No Yes -Correct Procedure No Yes -Procedure Performed No Yes -Type of Procedure Debridement -Clinical Debridement Subcutaneous -Post Debridement Size (cm) - Length 11 -Post Debridement Size (cm) - Width 15 -Post Debridement Size (cm) - Depth 2.7 -Total Square Cm 165 -Wound/Ulcer Outcome Not Healed -Ulcer Cleansing Rinsed/ Irrigated with Saline -Foul Odor after Cleansing No -Bioengineered Tissue No -Bleeding Controlled with Pressure -Treatment Response Procedure Tolerated Well Pain Scale: 0-10 Numeric Is Patient Pain Free? Yes Yes Wound debrided: #1 Right breast. Laterality: Right Wound Grade/Stage: 3. Type of Debridement: Excisional debridement Anesthesia Used: 4% Lidocaine Solution Depth: Down to and including healthy tissue, in the subcutaneous layer Percentage of wound debrided: 100 Instrument Used: 7mm curette Tissue Removed: subcutaneous tissue. Severity: Fat Layer Exposed Amount of bleeding with debridement: Mild Bleeding Controlled with: Pressure Patient tolerated procedure well Assessment/Plan Assessment: 1. Compromised TRAM flap wound right breast reconstruction. 2. Right breast cancer. 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 5. Disproportion reconstructed breasts. 6. Late effect radiation right breast. 7. Estrogen receptor status negative. 8. Former smoker. 9. s/p delayed right breast reconstruction with unipedicle contralateral TRAM flap and abdominal wall reconstruction with placement of Strattice acellular dermal matrix graft (100 cm2) and revision radiation scar contour deformity right breast with multiple W-plasties (40 cm2). 10. s/p surgical preparation right breast TRAM flap reconstruction with incision and drainage and evacuation hematoma. 11. s/p surgical preparation right breast reconstruction with excisional debridement compromised TRAM flap (256 cm2). 12. Atelectasis. Plan: Radiation wound is slowly improving. The remaining flap is soft and viable. Continue Vancomycin for the MRSE and Staphylococcus warneri. For the Acinetobacter, will continue Levaquin. Will check her weekly labs that is normally done for IV antibiotics. So will keep an eye on her alkaline phosphatase. If it rises further, then evaluation with Oncology would be done. Her CXR showed atelectasis. It is ok for HBO. Will repeat the CXR in the near future to make sure the atelectasis continues to resolve. She states the Percocet was not completely helping her pain. Wrote a script for Dilaudid fro Severe pain (40 tabs). 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 It will also help her compromised flap as well. The HBO will also be helpful in preparation for further flap reconstruction to complete her right breast reconstruction. Followup one week.
[2017-06-12 11:48] VITALS: BP 111/88; PULSE 85; RESP 18; TEMP 37.5; BMI 33.0
[2017-06-12 13:19] VITALS: BP 111/88; BP 134/65; PULSE 84; PULSE 85; RESP 18; TEMP 36.6; TEMP 37.5
--- NOTE | 2017-06-12 17:15 | PCM.HBO.PN ---
History of Present Illness Date of Service: 06/12/17 Presenting Chief Complaint: Compromised TRAM flap right breast reconstruction with nonhealing radiation wound. SHARON BARRAGAN is a 47 year old currently undergoing hyperbaric oxygen therapy for compromised TRAM flap right breast reconstruction with nonhealing radiation wound. Progress: Today's hyperbaric oxygen treatment represents the first such session of hyperbaric oxygen therapy. Tolerance of hyperbaric oxygen therapy: Hyperbaric oxygen therapy was administered as per the facility protocol. The patient tolerated hyperbaric oxygen therapy well, without complaints or complications. Upon emergence from the hyperbaric chamber, the patient's vital signs remained stable. The patient was discharged in good condition. 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 Allergies/Adverse Reactions: Allergies POULTRY Allergy (Uncoded 05/19/17 09:45) Anaphylaxis Home Medications: Ambulatory Orders Medication Instructions Recorded Sertraline HCl [Zoloft] 150 mg PO DAILY 01/11/16 Trazodone HCl 50 mg PO QHS 04/20/16 Amlodipine [Norvasc] 5 mg PO DAILY PRN 04/25/17 Calcium Carbonate/Vitamin D3 1 ea PO DAILY PRN 04/25/17 [Calcium 500-Vit D3 600 Tablet] Meloxicam [Mobic] 15 mg PO DAILY PRN 04/25/17 proMETHazine tablet [Phenergan 25 mg PO 4X/DAY PRN PRN #30 tab 05/10/17 tablet] Docusate Sodium [Colace] 100 mg PO BID 05/19/17 Vancomycin 1,000 mg IV Q12H #76 bag 05/24/17 Amlodipine [Norvasc] 5 mg PO DAILY tablet 05/25/17 Calcium Carb/Vitamin D [Os-Skinny 1 tablet PO DAILY@0800 tablet 05/25/17 500MG + D] Diazepam [Valium] 5 mg PO 4X/DAY PRN PRN #30 tab 05/25/17 Docusate Sodium [Colace] 100 mg PO BID capsule 05/25/17 Lactobacillus Acidophilus 1 tablet PO BID tablet 05/25/17 [Acidophilus] Meloxicam [Mobic] 15 mg PO DAILY PRN tablet 05/25/17 Oxycodone HCl/Acetaminophen 1 - 2 tab PO 4X/DAY PRN PRN 7 Days 05/25/17 [Percocet 5-325] #60 tab Sertraline HCl [Zoloft] 150 mg PO DAILY@0600 tablet 05/25/17 proMETHazine tablet [Phenergan 25 mg PO Q4H PRN PRN tablet 05/25/17 tablet] traZODone [Desyrel] 50 mg PO QHS tablet 05/25/17 doxycycline hyclate 100 mg capsule See Label Instructions PO BID #28 06/11/17 cap Maternal Family History: Family History (Last Updated 02/28/17 @ 15:22 by Fernanda Polk) Unknown No problems noted. Family History: Diabetes, Heart Disease Paternal Family History: Family History (Last Updated 02/28/17 @ 15:22 by Fernanda Polk) Unknown No problems noted. Family History: No pertinent history Smoking Status: Former smoker Physical Exam Vital Signs Temp Pulse Resp BP 99.5 F H 85 18 111/88 H 06/12/17 13:19 06/12/17 13:19 06/12/17 13:19 06/12/17 13:19 General: Alert, Oriented x3, Cooperative, No apparent distress, Well developed, Well nourished HEENT: Atraumatic, PERRLA, EOMI, Normocephalic Lungs: Normal air movement Psych/Mental Status: Normal Affect, Appropriate, Alert and oriented to time, place, person, mood and affect Assessment/Plan This appears to be tolerating hyperbaric oxygen therapy well, which will be continued as per the patient's medical plan.
[2017-06-14 13:18] VITALS: BP 100/63; PULSE 83; RESP 16; TEMP 36.8
--- NOTE | 2017-06-14 21:16 | PCM.HBO.PN ---
History of Present Illness Date of Service: 06/14/17 Presenting Chief Complaint: Compromised TRAM flap right breast reconstruction with nonhealing radiation wound. 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 Progress: Today's hyperbaric oxygen treatment represents treatment #2. Tolerance of hyperbaric oxygen therapy: Hyperbaric oxygen therapy was administered as per the facility protocol. The patient tolerated hyperbaric oxygen therapy well, without complaints or complications. Upon emergence from the hyperbaric chamber, the patient's vital signs remained stable. The patient was discharged in good condition. 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 Allergies/Adverse Reactions: Allergies POULTRY Allergy (Uncoded 10/07/17 20:50) Anaphylaxis Home Medications: Ambulatory Orders Medication Instructions Recorded Sertraline HCl [Zoloft] 150 mg PO DAILY@0600 09/12/17 traZODone [Desyrel] 50 mg PO QHS 09/12/17 Diazepam [Valium] 10 mg PO 4X/DAY PRN PRN 7 Days #30 09/25/17 tab Docusate Sodium [Colace] 100 mg PO BID #60 cap 09/25/17 Iron Polysaccharide Complex 150 mg PO DAILYCM #30 cap 09/25/17 [Ferrex 150] Oxycodone HCl/Acetaminophen 1 - 2 tab PO 4X/DAY PRN PRN 7 Days 09/25/17 [Percocet 5-325] #60 tab levoFLOXacin tablet [Levaquin 500 mg PO .QDAILY #14 tab 09/25/17 tablet] proMETHazine tablet [Phenergan 25 mg PO 4X/DAY PRN PRN #30 tab 09/25/17 tablet] fentanyl 50 mcg/hr transdermal 1 patch TRANSDERMAL Q72H #5 ea 09/27/17 patch Non-Adherent Bandage [Mepitel] 2 ea TP .QOD #30 bandage 10/04/17 Maternal Family History: Family History (Last Updated 02/28/17 @ 15:22 by Fernanda Polk) Unknown No problems noted. Family History: Diabetes, Heart Disease Paternal Family History: Family History (Last Updated 02/28/17 @ 15:22 by Fernanda Polk) Unknown No problems noted. Family History: No pertinent history Smoking Status: Former smoker Physical Exam Vital Signs Temp Pulse Resp BP 98.2 F 83 16 100/63 06/14/17 13:18 06/14/17 13:18 06/14/17 13:18 06/14/17 13:18
[2017-06-15 12:10] VITALS: BP 102/72; BP 118/71; PULSE 86; PULSE 99; RESP 16; TEMP 36.6; TEMP 37.1
[2017-06-16 13:27] VITALS: BP 111/76; BP 127/79; PULSE 81; PULSE 85; RESP 16; TEMP 36.6; TEMP 36.7
--- NOTE | 2017-06-16 19:35 | PCM.HBO.PN ---
History of Present Illness Date of Service: 06/16/17 Presenting Chief Complaint: Compromised TRAM flap right breast reconstruction with nonhealing radiation wound. SHARON BARRAGAN is a 47 year old currently undergoing hyperbaric oxygen therapy for compromised TRAM flap right breast reconstruction with nonhealing radiation wound. Progress: Today's hyperbaric oxygen treatment represents the 3rd such session of hyperbaric oxygen therapy. Tolerance of hyperbaric oxygen therapy: Hyperbaric oxygen therapy was administered as per the facility protocol. The patient tolerated hyperbaric oxygen therapy well, without complaints or complications. Upon emergence from the hyperbaric chamber, the patient's vital signs remained stable. The patient was discharged in good condition. 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 Allergies/Adverse Reactions: Allergies POULTRY Allergy (Uncoded 05/19/17 09:45) Anaphylaxis Home Medications: Ambulatory Orders Medication Instructions Recorded Sertraline HCl [Zoloft] 150 mg PO DAILY 01/11/16 Trazodone HCl 50 mg PO QHS 04/20/16 Amlodipine [Norvasc] 5 mg PO DAILY PRN 04/25/17 Calcium Carbonate/Vitamin D3 1 ea PO DAILY PRN 04/25/17 [Calcium 500-Vit D3 600 Tablet] Meloxicam [Mobic] 15 mg PO DAILY PRN 04/25/17 proMETHazine tablet [Phenergan 25 mg PO 4X/DAY PRN PRN #30 tab 05/10/17 tablet] Docusate Sodium [Colace] 100 mg PO BID 05/19/17 Vancomycin 1,000 mg IV Q12H #76 bag 05/24/17 Amlodipine [Norvasc] 5 mg PO DAILY tablet 05/25/17 Calcium Carb/Vitamin D [Os-Skinny 1 tablet PO DAILY@0800 tablet 05/25/17 500MG + D] Diazepam [Valium] 5 mg PO 4X/DAY PRN PRN #30 tab 05/25/17 Docusate Sodium [Colace] 100 mg PO BID capsule 05/25/17 Lactobacillus Acidophilus 1 tablet PO BID tablet 05/25/17 [Acidophilus] Meloxicam [Mobic] 15 mg PO DAILY PRN tablet 05/25/17 Oxycodone HCl/Acetaminophen 1 - 2 tab PO 4X/DAY PRN PRN 7 Days 05/25/17 [Percocet 5-325] #60 tab Sertraline HCl [Zoloft] 150 mg PO DAILY@0600 tablet 05/25/17 proMETHazine tablet [Phenergan 25 mg PO Q4H PRN PRN tablet 05/25/17 tablet] traZODone [Desyrel] 50 mg PO QHS tablet 05/25/17 doxycycline hyclate 100 mg capsule See Label Instructions PO BID #28 06/11/17 cap Maternal Family History: Family History (Last Updated 02/28/17 @ 15:22 by Fernanda Polk) Unknown No problems noted. Family History: Diabetes, Heart Disease Paternal Family History: Family History (Last Updated 02/28/17 @ 15:22 by Fernanda Polk) Unknown No problems noted. 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
--- NOTE | 2017-06-17 11:37 | PCM.HBO.PN ---
History of Present Illness Date of Service: 06/15/17 Presenting Chief Complaint: Compromised TRAM flap right breast reconstruction with nonhealing radiation wound. SHARON BARRAGAN is a 47 year old currently undergoing hyperbaric oxygen therapy for compromised TRAM flap right breast reconstruction with nonhealing radiation wound. Progress: Patient is tolerating hyperbaric oxygen therapy without any complaints. Tolerance of hyperbaric oxygen therapy: Hyperbaric oxygen therapy was administered as per the facility protocol. The patient tolerated hyperbaric oxygen therapy well, without complaints or complications. Upon emergence from the hyperbaric chamber, the patient's vital signs remained stable. The patient was discharged in good condition. 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 Allergies/Adverse Reactions: Allergies POULTRY Allergy (Uncoded 05/19/17 09:45) Anaphylaxis Home Medications: Ambulatory Orders Medication Instructions Recorded Sertraline HCl [Zoloft] 150 mg PO DAILY 01/11/16 Trazodone HCl 50 mg PO QHS 04/20/16 Amlodipine [Norvasc] 5 mg PO DAILY PRN 04/25/17 Calcium Carbonate/Vitamin D3 1 ea PO DAILY PRN 04/25/17 [Calcium 500-Vit D3 600 Tablet] Meloxicam [Mobic] 15 mg PO DAILY PRN 04/25/17 proMETHazine tablet [Phenergan 25 mg PO 4X/DAY PRN PRN #30 tab 05/10/17 tablet] Docusate Sodium [Colace] 100 mg PO BID 05/19/17 Vancomycin 1,000 mg IV Q12H #76 bag 05/24/17 Amlodipine [Norvasc] 5 mg PO DAILY tablet 05/25/17 Calcium Carb/Vitamin D [Os-Skinny 1 tablet PO DAILY@0800 tablet 05/25/17 500MG + D] Diazepam [Valium] 5 mg PO 4X/DAY PRN PRN #30 tab 05/25/17 Docusate Sodium [Colace] 100 mg PO BID capsule 05/25/17 Lactobacillus Acidophilus 1 tablet PO BID tablet 05/25/17 [Acidophilus] Meloxicam [Mobic] 15 mg PO DAILY PRN tablet 05/25/17 Oxycodone HCl/Acetaminophen 1 - 2 tab PO 4X/DAY PRN PRN 7 Days 05/25/17 [Percocet 5-325] #60 tab Sertraline HCl [Zoloft] 150 mg PO DAILY@0600 tablet 05/25/17 proMETHazine tablet [Phenergan 25 mg PO Q4H PRN PRN tablet 05/25/17 tablet] traZODone [Desyrel] 50 mg PO QHS tablet 05/25/17 doxycycline hyclate 100 mg capsule See Label Instructions PO BID #28 06/11/17 cap Maternal Family History: Family History (Last Updated 02/28/17 @ 15:22 by Fernanda Polk) Unknown No problems noted. Family History: Diabetes, Heart Disease Paternal Family History: Family History (Last Updated 02/28/17 @ 15:22 by Fernanda Polk) Unknown No problems noted. Family History: No pertinent history Smoking Status: Former smoker Physical Exam Vital Signs Temp Pulse Resp BP 97.8 F 85 16 111/76 06/16/17 13:27 06/16/17 13:27 06/16/17 13:27 06/16/17 13:27 General: Alert, Oriented x3, Cooperative, No apparent distress HEENT: Atraumatic Lungs: Clear to auscultation, Normal air movement Cardiovascular: Regular rate, Regular Rhythm, Normal S1, Normal S2 Psych/Mental Status: Normal Affect Assessment/Plan Active Problems (Last Updated 02/28/17 @ 15:15 by Fernanda Polk) Radiation skin ulcer of chest (Chronic) radiation skin ulcer right chest wall and breast reconstruction Partial loss of skin graft (Acute) Compromised TRAM flap right breast reconstruction with partial loss 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 Code Visit visit code 25202
--- NOTE | 2017-06-23 18:12 | PCM.HBO.PN ---
History of Present Illness Date of Service: 06/23/17 Presenting Chief Complaint: Compromised TRAM flap right breast reconstruction with nonhealing radiation wound. 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 Progress: Today's hyperbaric oxygen treatment represents treatment #7. Tolerance of hyperbaric oxygen therapy: Hyperbaric oxygen therapy was administered as per the facility protocol. The patient tolerated hyperbaric oxygen therapy well, without complaints or complications. Upon emergence from the hyperbaric chamber, the patient's vital signs remained stable. The patient was discharged in good condition. 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 Allergies/Adverse Reactions: Allergies POULTRY Allergy (Uncoded 10/07/17 20:50) Anaphylaxis Home Medications: Ambulatory Orders Medication Instructions Recorded Sertraline HCl [Zoloft] 150 mg PO DAILY@0600 09/12/17 traZODone [Desyrel] 50 mg PO QHS 09/12/17 Diazepam [Valium] 10 mg PO 4X/DAY PRN PRN 7 Days #30 09/25/17 tab Docusate Sodium [Colace] 100 mg PO BID #60 cap 09/25/17 Iron Polysaccharide Complex 150 mg PO DAILYCM #30 cap 09/25/17 [Ferrex 150] Oxycodone HCl/Acetaminophen 1 - 2 tab PO 4X/DAY PRN PRN 7 Days 09/25/17 [Percocet 5-325] #60 tab levoFLOXacin tablet [Levaquin 500 mg PO .QDAILY #14 tab 09/25/17 tablet] proMETHazine tablet [Phenergan 25 mg PO 4X/DAY PRN PRN #30 tab 09/25/17 tablet] fentanyl 50 mcg/hr transdermal 1 patch TRANSDERMAL Q72H #5 ea 09/27/17 patch Non-Adherent Bandage [Mepitel] 2 ea TP .QOD #30 bandage 10/04/17 Maternal Family History: Family History (Last Updated 02/28/17 @ 15:22 by Fernanda Polk) Unknown No problems noted. Family History: Diabetes, Heart Disease Paternal Family History: Family History (Last Updated 02/28/17 @ 15:22 by Fernanda Polk) Unknown No problems noted. Family History: No pertinent history Smoking Status: Former smoker Physical Exam Vital Signs Temp Pulse Resp BP 97.8 F 85 16 111/76 06/16/17 13:27 06/16/17 13:27 06/16/17 13:27 06/16/17 13:27
--- NOTE | 2017-07-03 16:08 | PCM.HBO.PN ---
History of Present Illness Date of Service: 07/03/17 Presenting Chief Complaint: Compromised TRAM flap right breast reconstruction with nonhealing radiation wound. SHARON BARRAGAN is a 47 year old currently undergoing hyperbaric oxygen therapy for compromised TRAM flap right breast reconstruction with nonhealing radiation wound. Progress: Patient is tolerating hyperbaric oxygen therapy without any complaints. Today's session represents the 10th such session of hyperbaric oxygen therapy. Tolerance of hyperbaric oxygen therapy: Hyperbaric oxygen therapy was administered as per the facility protocol. The patient tolerated hyperbaric oxygen therapy well, without complaints or complications. Upon emergence from the hyperbaric chamber, the patient's vital signs remained stable. The patient was discharged in good condition. 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 Allergies/Adverse Reactions: Allergies POULTRY Allergy (Uncoded 05/19/17 09:45) Anaphylaxis Home Medications: Ambulatory Orders Medication Instructions Recorded Sertraline HCl [Zoloft] 150 mg PO DAILY 01/11/16 Trazodone HCl 50 mg PO QHS 04/20/16 Amlodipine [Norvasc] 5 mg PO DAILY PRN 04/25/17 Calcium Carbonate/Vitamin D3 1 ea PO DAILY PRN 04/25/17 [Calcium 500-Vit D3 600 Tablet] Meloxicam [Mobic] 15 mg PO DAILY PRN 04/25/17 proMETHazine tablet [Phenergan 25 mg PO 4X/DAY PRN PRN #30 tab 05/10/17 tablet] Docusate Sodium [Colace] 100 mg PO BID 05/19/17 Vancomycin 1,000 mg IV Q12H #76 bag 05/24/17 Amlodipine [Norvasc] 5 mg PO DAILY tablet 05/25/17 Calcium Carb/Vitamin D [Os-Skinny 1 tablet PO DAILY@0800 tablet 05/25/17 500MG + D] Diazepam [Valium] 5 mg PO 4X/DAY PRN PRN #30 tab 05/25/17 Docusate Sodium [Colace] 100 mg PO BID capsule 05/25/17 Lactobacillus Acidophilus 1 tablet PO BID tablet 05/25/17 [Acidophilus] Meloxicam [Mobic] 15 mg PO DAILY PRN tablet 05/25/17 Oxycodone HCl/Acetaminophen 1 - 2 tab PO 4X/DAY PRN PRN 7 Days 05/25/17 [Percocet 5-325] #60 tab Sertraline HCl [Zoloft] 150 mg PO DAILY@0600 tablet 05/25/17 proMETHazine tablet [Phenergan 25 mg PO Q4H PRN PRN tablet 05/25/17 tablet] traZODone [Desyrel] 50 mg PO QHS tablet 05/25/17 doxycycline hyclate 100 mg capsule See Label Instructions PO BID #28 06/11/17 cap Maternal Family History: Family History (Last Updated 02/28/17 @ 15:22 by Fernanda Polk) Unknown No problems noted. Family History: Diabetes, Heart Disease Paternal Family History: Family History (Last Updated 02/28/17 @ 15:22 by Fernanda Polk) Unknown No problems noted. Family History: No pertinent history Smoking Status: Former smoker Physical Exam Vital Signs Temp Pulse Resp BP 97.8 F 85 16 111/76 06/16/17 13:27 06/16/17 13:27 06/16/17 13:27 06/16/17 13:27 General: Alert, Oriented x3, Cooperative, No apparent distress, Well developed, Well nourished HEENT: Atraumatic, PERRLA, EOMI, Normocephalic Lungs: Normal air movement Psych/Mental Status: Normal Affect, Appropriate, Alert and oriented to time, place, person, mood and affect Assessment/Plan Patient appears to be tolerating hyperbaric oxygen therapy well, which will be continued as per the patient's medical plan.
== END 2017-06-17 23:59 ==
LOC: WC 13:00
PROVIDERS: Family Provider Internal Medicine; PCP Internal Medicine; Visit Provider Surgery
DX: T86.821 Skin graft (allograft)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 (principal); Z87.891 Personal history of nicotine dependence; Z17.1 Estrogen receptor negative status [ER-]; F45.29 Other hypochondriacal disorders; L59.8 Other specified disorders of the skin and subcutaneous tissue related to radiation; Z79.899 Other long term (current) drug therapy; Z85.3 Personal history of malignant neoplasm of breast; N65.1 Disproportion of reconstructed breast; Y84.2 Radiological procedure and radiotherapy as the cause of abnormal reaction of the patient, or of later complication, without mention of misadventure at the time of the procedure
CPT/HCPCS: 11042; 11045; 97606; 99183; 99213; G0277; G0463

== ENCOUNTER 2017-06-28 13:00 | Emergency (ER) | payer MEDICAID, SELFPAY ==
[2017-06-28 13:00] VITALS: BP 153/109; PULSE 105; RESP 18; TEMP 36.6; O2SAT 97; BMI 34.3
--- NOTE | 2017-06-28 13:18 | VDUE_ITS ---
Reason For Study: LUE swelling/pain pt has PICC line Left Proximal Left jugular vein is spontaneous, widely patent, phasic, with no intraluminal echogenicity noted. Left subclavian vein is spontaneous, widely patent, phasic, with no intraluminal echogenicity noted. Left Arm Left axillary vein is spontaneous, patent, phasic, competent, compressible and demonstrates augmentation. Left brachial vein is compressible. Left cephalic vein is compressible. Left basilic vein is compressible. Left Lower Arm Left radial vein is compressible. Left ulnar vein is compressible. < Interpretation Summary No evidence for acute deep venous thrombosis[left] upper extremity with patent and compressible cephalic and basilic veins. Ordering Physician: Romeo Jimenes Referring Physician: Junior Ahn Performed By: Kellee Moreira RVT
--- NOTE | 2017-06-28 13:22 | ED.VISSUMM ---
- ER Visit Summary Date of Service: 06/28/17 Chief Complaint: Complaining of left upper arm swelling mild discomfort. History of Present Illness: The patient is a 47 F 3 of breast CA with bilateral mastectomies and flap procedure. She developed a infection recently has had a PICC line for the last day or so he has had mild swelling in the left upper arm and discomfort. No fever. No redness. She wants her PICC line out. She is currently getting IV antibiotic therapy and has about a week for that to continue. Physical Examination: Appearing middle-aged female. Vital signs are stable afebrile. No acute distress. H EENT exam unremarkable. Neck nontender. Lungs clear to auscultation bilaterally. Heart regular rhythm no murmur. Abdomen soft nontender nondistended no giving or masses. She is moving all 4 extremities.. She does have mild swelling to her left upper arm. The forearm is no edema. She is strong radial pulse left hand has normal cafeteria monitor strength and sensation no compartment syndrome. There is no cellulitis to her arm. The left hand is neurovascularly intact. Test Results: Venous study left upper extremity was negative. No DVT. Emergency Department Course and Treatment: Clear PICC line looks good. There is mild swelling left upper arm. I do not see any obvious infection. We will do a noninvasive study to evaluate to rule out a DVT. I attempted to have PICC line nursing evaluate PICC line but they are not available today. I will discuss with Dr. azra Villegas with test results. Treatment Plan: Discussed w/ Dr. Ahn and will remove her PICC line. Disposition: Discharge Impression: Left upper arm swelling secondary to PICC line. This note was generated with [email or web address] dictation software. It may contain incorrect words, spelling, and punctuation that were not noted in review of the chart prior to signing ED Disposition - Plan for ED Patient: Chief Complaint: General Illness Referrals: Josué Price MD [Primary Care Provider] -
--- NOTE | 2017-06-28 13:26 | ED.DCSUM_ITS ---
- ER Visit Summary Date of Service: 06/28/17 Chief Complaint: Complaining of left upper arm swelling mild discomfort. History of Present Illness: The patient is a 47 F 3 of breast CA with bilateral mastectomies and flap procedure. She developed a infection recently has had a PICC line for the last day or so he has had mild swelling in the left upper arm and discomfort. No fever. No redness. She wants her PICC line out. She is currently getting IV antibiotic therapy and has about a week for that to continue. Physical Examination: Appearing middle-aged female. Vital signs are stable afebrile. No acute distress. H EENT exam unremarkable. Neck nontender. Lungs clear to auscultation bilaterally. Heart regular rhythm no murmur. Abdomen soft nontender nondistended no giving or masses. She is moving all 4 extremities.. She does have mild swelling to her left upper arm. The forearm is no edema. She is strong radial pulse left hand has normal mental health aide strength and sensation no compartment syndrome. There is no cellulitis to her arm. The left hand is neurovascularly intact. Test Results: Venous study left upper extremity was negative. No DVT. Emergency Department Course and Treatment: Clear PICC line looks good. There is mild swelling left upper arm. I do not see any obvious infection. We will do a noninvasive study to evaluate to rule out a DVT. I attempted to have PICC line nursing evaluate PICC line but they are not available today. I will discuss with Dr. azra Villegas with test results. Treatment Plan: Discussed w/ Dr. Ahn and will remove her PICC line. Disposition: Discharge Impression: Left upper arm swelling secondary to PICC line. This note was generated with [employer] dictation software. It may contain incorrect words, spelling, and punctuation that were not noted in review of the chart prior to signing ED Disposition - Plan for ED Patient: Chief Complaint: General Illness Referrals: Josué Price MD [Primary Care Provider] -
[2017-06-28 14:31] VITALS: RESP 18
--- NOTE | 2017-06-28 15:11 | ED.DEP ---
ED Disposition - Plan for ED Patient: Disposition: Home or Assisted Living Chief Complaint: General Illness Referrals: Josué Price MD [Primary Care Provider] - 1 Week if not improving Additional Instructions: Elevate left arm and decrease the swelling. Motrin for pain. No signs of blood clot in your arm.0
[2017-06-28] MEDS: HYDROcodone Bitartrate/Apap 5/325 Tablet PO (15:56)
--- NOTE | 2017-06-28 16:30 | WC ---
Addendum entered by Chad Jiménez 06/28/17 16:41: Insertion site clean and clear of redness or signs of infection. Site covered w/folded 2x2's and secured with tape Original Note: Verbal Order received from Dr. Ahn to remove PICC Line Left Arm. Patient in ED, RM 16. Picc Line easily removed and intact. End Measurement 47 cm Left upper arm swollen w/o erythema. Tightness anteriorly. Instructed to apply warm compresses and elevate arm.
[2017-06-28 16:36] VITALS: BP 150/89; PULSE 92; RESP 18; O2SAT 97
== END 2017-06-28 16:45 | disposition home or self-care (01) ==
PROVIDERS: Emergency Provider Emergency Medicine; Family Provider Internal Medicine; PCP Internal Medicine
DX: T82.898A Other specified complication of vascular prosthetic devices, implants and grafts, initial encounter (principal); M79.89 Other specified soft tissue disorders; Z79.899 Other long term (current) drug therapy; Z90.13 Acquired absence of bilateral breasts and nipples; Z85.3 Personal history of malignant neoplasm of breast
CPT/HCPCS: 93971; 99282

== ENCOUNTER 2017-07-17 13:00 | Outpatient (RCR) | payer MEDICAID, SELFPAY ==
[2017-06-18 01:09] VITALS: PULSE 81; RESP 16; TEMP 36.7
[2017-06-19 11:48] VITALS: BP 151/73; PULSE 90; RESP 18; TEMP 37.3
[2017-06-19 12:49] VITALS: BP 151/73; PULSE 90; RESP 18; TEMP 37.3
--- NOTE | 2017-06-19 17:50 | PCM.WC.PN ---
Type of Wound Date of Service: 06/19/17 Chief Complaint: Compromised TRAM flap right breast reconstruction with nonhealing radiation wound. History of Wound: Surgery 05/23/17 - Surgical preparation right breast reconstruction with excisional debridement compromised TRAM flap (256 cm2). Surgery 05/05/17 - Surgical preparation right breast TRAM flap reconstruction with incision and drainage and evacuation hematoma. Surgery 05/02/17 - 1. Delayed right breast reconstruction with unipedicle contralateral TRAM flap. 2. Abdominal wall reconstruction with placement of Strattice acellular dermal matrix graft (100 cm2). 3. Revision radiation scar contour deformity right breast with multiple W-plasties (40 cm2). Wound care - VAC. Operative culture - MRSE, and Staphylococcus warneri, and Acinetobacter lwoffi. She has been on IV Vancomycin and PO Levaquin. Prealbumin was 19.4 on 05/19/17. While in the hospital she had slightly elevated Alkaline Phosphatase at 141 that decreased to 131. CT Abdomen showed no pathology in the liver. She also has a CXR in preparation for HBO treatments. It showed no infiltrate. There was some atelectasis. Will repeat the LFT's to continue to monitor them. Today she denies fever. Her appetite is ok. She has started HBO treatments for compromised TRAM flap and for soft tissue radionecrosis. Progress of Wound: Slightly improved. - Physical Exam Vital Signs Temp Pulse Resp BP 99.1 F 90 18 151/73 H 06/19/17 12:49 06/19/17 12:49 06/19/17 12:49 06/19/17 12:49 Wound Measurements and Assessment WC - Nurse 1 - General Ulcer Measurement Start: 06/19/17 11:41 Freq: Status: Active Protocol: Activity Type Activity Date Activity User E-Sign Co-Sign Detail Recorded Client Recorded Date Recorded By Document 06/19/17 11:48 TM [id number] 06/19/17 11:50 TM 06/19/17 11:48 Wound Center Nurse 1 [Ulcer Assessment] #1 Right breast Tram flap failure -Combined with other wound No -Current Size (cm) - Length 11.0 -Current Size (cm) - Width 13.0 -Current Size (cm) - Depth 2.5 -Total Square Cm 143.00 -Photo Taken No -Epithelialization Small 1-33% -Tunneling Yes -Tunneling Position (O'clock) 11 -Tunneling Distance (cm) 1.7 -Undermining/Tunneling No -Circular Undermining No -Classification - Thickness Full Thickness without Exposed Support Structure -Exudate Amt Medium (34-66%) -Exudate Type Serosanguineous -Wound Margin Distinct, Outline Attached -Granulation Amt Large (67-100%) -Granulation Quality [place] Red -Slough/Fibrin Yes -Necrosis Amt Small (1-33%) -Necrotic Tissue Type Adherent Slough -Structure Exposed Fascia Fat Layer Exposed -Texture (Meghana-wound Skin Appearance) Scarring -Moisture (Meghana-wound Skin Appearance No Abnormality ) -Color (Meghana-wound Skin Appearance) Erythema -Temperature (Meghana-wound Skin No Abnormality Appearance) (Pt Warm) -Tenderness on Palpation (Meghana-wound No Skin Appearance) -Ulcer Cleansing Rinsed/ Irrigated with Saline -Foul Odor after Cleansing No -Anesthetic Used 4% Lidocaine Solution [Edema Assessment] -Lower Limb Edema Present No WC - Nurse 2 - General Ulcer CM Notes Start: 06/19/17 11:41 Freq: Status: Active Protocol: Activity Type Activity Date Activity User E-Sign Co-Sign Detail Recorded Client Recorded Date Recorded By Document 06/19/17 12:08 RITA [id number] 06/19/17 12:09 RITA 06/19/17 12:08 Wound Center Nurse 2 [Procedure/Treatment] #1 Right breast Tram flap failure -Time 12:09 -Correct Patient Yes -Correct Side, Site, Position Yes -Correct Procedure Yes -Procedure Performed Yes -Type of Procedure Debridement -Clinical Debridement Subcutaneous -Post Debridement Size (cm) - Length 11.1 -Post Debridement Size (cm) - Width 13.0 -Post Debridement Size (cm) - Depth 2.5 -Total Square Cm 144.30 -Wound/Ulcer Outcome Not Healed -Ulcer Cleansing Rinsed/ Irrigated with Saline -Foul Odor after Cleansing No -Bioengineered Tissue No -Bleeding Controlled with Pressure -Treatment Response Procedure Tolerated Well [See Physician Procedure note for Specifics] Pain Scale: 0-10 Numeric [Pain] -Is Patient Pain Free? Yes Debridement Note Post-Debridement Measurements/Treatment WC - Nurse 2 - General Ulcer CM Notes Start: 06/19/17 11:41 Freq: Status: Active Protocol: Activity Type Activity Date Activity User E-Sign Co-Sign Detail Recorded Client Recorded Date Recorded By Document 06/19/17 12:08 RITA [id number] 06/19/17 12:09 RITA 06/19/17 12:08 Wound Center Nurse 2 #1 Right breast Tram flap failure -Time 12:09 -Correct Patient Yes -Correct Side, Site, Position Yes -Correct Procedure Yes -Procedure Performed Yes -Type of Procedure Debridement -Clinical Debridement Subcutaneous -Post Debridement Size (cm) - Length 11.1 -Post Debridement Size (cm) - Width 13.0 -Post Debridement Size (cm) - Depth 2.5 -Total Square Cm 144.30 -Wound/Ulcer Outcome Not Healed -Ulcer Cleansing Rinsed/ Irrigated with Saline -Foul Odor after Cleansing No -Bioengineered Tissue No -Bleeding Controlled with Pressure -Treatment Response Procedure Tolerated Well Pain Scale: 0-10 Numeric Is Patient Pain Free? Yes Wound debrided: #1 Right breast. Laterality: Right Wound Grade/Stage: 3. Type of Debridement: Excisional debridement Anesthesia Used: 4% Lidocaine Solution Depth: Down to and including healthy tissue, in the subcutaneous layer Percentage of wound debrided: 100 Instrument Used: 7mm curette Tissue Removed: subcutaneous tissue. Severity: Fat Layer Exposed Amount of bleeding with debridement: Mild Bleeding Controlled with: Pressure Patient tolerated procedure well Assessment/Plan Assessment: 1. Compromised TRAM flap wound right breast reconstruction. 2. Right breast cancer. 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 5. Disproportion reconstructed breasts. 6. Late effect radiation right breast. 7. Estrogen receptor status negative. 8. Former smoker. 9. s/p delayed right breast reconstruction with unipedicle contralateral TRAM flap and abdominal wall reconstruction with placement of Strattice acellular dermal matrix graft (100 cm2) and revision radiation scar contour deformity right breast with multiple W-plasties (40 cm2). 10. s/p surgical preparation right breast TRAM flap reconstruction with incision and drainage and evacuation hematoma. 11. s/p surgical preparation right breast reconstruction with excisional debridement compromised TRAM flap (256 cm2). Plan: Radiation wound is slowly improving. The remaining flap is soft and viable. Continue Vancomycin for the MRSE and Staphylococcus warneri. For the Acinetobacter, will continue Levaquin. Will check her weekly labs that is normally done for IV antibiotics. So will keep an eye on her alkaline phosphatase. If it rises further, then evaluation with Oncology would be done. Her CXR showed atelectasis. It is ok for HBO. Will repeat the CXR in the near future to make sure the atelectasis continues to resolve. Renewed her Percocet for pain (50 tabs) and for Valium for spasm (30 tabs). She has started HBO treatments because of her radiation soft tissue radionecrosis damage to her right breast reconstruction. It will also help her compromised flap as well. HBO will also be helpful in preparation for further flap reconstruction to complete her right breast reconstruction. She is tolerating the HBO treatments. Followup 2 weeks. It was noted there was a small seroma in the abdominal wall. It is less when the binder is worn. Continue wearing the abdominal binder.
--- NOTE | 2017-06-19 17:57 | PCM.HBO.PN ---
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 Progress: Today's hyperbaric oxygen treatment represents treatment #5. Tolerance of hyperbaric oxygen therapy: Hyperbaric oxygen therapy was administered as per the facility protocol. The patient tolerated hyperbaric oxygen therapy well, without complaints or complications. Upon emergence from the hyperbaric chamber, the patient's vital signs remained stable. The patient was discharged in good condition. 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 Allergies/Adverse Reactions: Allergies POULTRY Allergy (Uncoded 10/07/17 20:50) Anaphylaxis Home Medications: Ambulatory Orders Medication Instructions Recorded Sertraline HCl [Zoloft] 150 mg PO DAILY@0600 09/12/17 traZODone [Desyrel] 50 mg PO QHS 09/12/17 Diazepam [Valium] 10 mg PO 4X/DAY PRN PRN 7 Days #30 09/25/17 tab Docusate Sodium [Colace] 100 mg PO BID #60 cap 09/25/17 Iron Polysaccharide Complex 150 mg PO DAILYCM #30 cap 09/25/17 [Ferrex 150] Oxycodone HCl/Acetaminophen 1 - 2 tab PO 4X/DAY PRN PRN 7 Days 09/25/17 [Percocet 5-325] #60 tab levoFLOXacin tablet [Levaquin 500 mg PO .QDAILY #14 tab 09/25/17 tablet] proMETHazine tablet [Phenergan 25 mg PO 4X/DAY PRN PRN #30 tab 09/25/17 tablet] fentanyl 50 mcg/hr transdermal 1 patch TRANSDERMAL Q72H #5 ea 09/27/17 patch Non-Adherent Bandage [Mepitel] 2 ea TP .QOD #30 bandage 10/04/17 Maternal Family History: Family History (Last Updated 02/28/17 @ 15:22 by Fernanda Polk) Unknown No problems noted. Family History: Diabetes, Heart Disease Paternal Family History: Family History (Last Updated 02/28/17 @ 15:22 by Fernanda Polk) Unknown No problems noted. Family History: No pertinent history Smoking Status: Former smoker Physical Exam Vital Signs Temp Pulse Resp BP 99.1 F 90 18 151/73 H 06/19/17 12:49 06/19/17 12:49 06/19/17 12:49 06/19/17 12:49
[2017-06-21 12:30] VITALS: BP 133/71; PULSE 114; RESP 16; TEMP 37.3
--- NOTE | 2017-06-21 17:39 | PCM.HBO.PN ---
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 Progress: Today's hyperbaric oxygen treatment represents treatment #6. Tolerance of hyperbaric oxygen therapy: Hyperbaric oxygen therapy was administered as per the facility protocol. The patient tolerated hyperbaric oxygen therapy well, without complaints or complications. Upon emergence from the hyperbaric chamber, the patient's vital signs remained stable. The patient was discharged in good condition. 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 Allergies/Adverse Reactions: Allergies POULTRY Allergy (Uncoded 10/07/17 20:50) Anaphylaxis Home Medications: Ambulatory Orders Medication Instructions Recorded Sertraline HCl [Zoloft] 150 mg PO DAILY@0600 09/12/17 traZODone [Desyrel] 50 mg PO QHS 09/12/17 Diazepam [Valium] 10 mg PO 4X/DAY PRN PRN 7 Days #30 09/25/17 tab Docusate Sodium [Colace] 100 mg PO BID #60 cap 09/25/17 Iron Polysaccharide Complex 150 mg PO DAILYCM #30 cap 09/25/17 [Ferrex 150] Oxycodone HCl/Acetaminophen 1 - 2 tab PO 4X/DAY PRN PRN 7 Days 09/25/17 [Percocet 5-325] #60 tab levoFLOXacin tablet [Levaquin 500 mg PO .QDAILY #14 tab 09/25/17 tablet] proMETHazine tablet [Phenergan 25 mg PO 4X/DAY PRN PRN #30 tab 09/25/17 tablet] fentanyl 50 mcg/hr transdermal 1 patch TRANSDERMAL Q72H #5 ea 09/27/17 patch Non-Adherent Bandage [Mepitel] 2 ea TP .QOD #30 bandage 10/04/17 Maternal Family History: Family History (Last Updated 02/28/17 @ 15:22 by Fernanda Polk) Unknown No problems noted. Family History: Diabetes, Heart Disease Paternal Family History: Family History (Last Updated 02/28/17 @ 15:22 by Fernanda Polk) Unknown No problems noted. Family History: No pertinent history Smoking Status: Former smoker Physical Exam Vital Signs Temp Pulse Resp BP 99.1 F 114 H 16 133/71 H 06/21/17 12:30 06/21/17 12:30 06/21/17 12:30 06/21/17 12:30
[2017-06-23 12:57] VITALS: BP 111/77; PULSE 108; RESP 16; TEMP 37.1
[2017-06-26 13:04] VITALS: BP 132/90; PULSE 107; RESP 18; TEMP 37.2
--- NOTE | 2017-06-26 16:00 | PCM.HBO.PN ---
History of Present Illness Date of Service: 06/26/17 Presenting Chief Complaint: Compromised TRAM flap right breast reconstruction with nonhealing radiation wound. SHARON BARRAGAN is a 47 year old currently undergoing hyperbaric oxygen therapy for compromised TRAM flap right breast reconstruction with nonhealing radiation wound. Progress: The patient appears to be tolerating hyperbaric oxygen therapy well. Today represents the patient's eighth such session. Tolerance of hyperbaric oxygen therapy: Hyperbaric oxygen therapy was administered as per the facility's protocol. The patient tolerated hyperbaric oxygen therapy well, without complaints or complications. Upon emergence from the hyperbaric chamber, the patient's vital signs remained stable. The patient was discharged in good condition. 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 Allergies/Adverse Reactions: Allergies POULTRY Allergy (Uncoded 05/19/17 09:45) Anaphylaxis Home Medications: Ambulatory Orders Medication Instructions Recorded Sertraline HCl [Zoloft] 150 mg PO DAILY 01/11/16 Trazodone HCl 50 mg PO QHS 04/20/16 Amlodipine [Norvasc] 5 mg PO DAILY PRN 04/25/17 Calcium Carbonate/Vitamin D3 1 ea PO DAILY PRN 04/25/17 [Calcium 500-Vit D3 600 Tablet] Meloxicam [Mobic] 15 mg PO DAILY PRN 04/25/17 proMETHazine tablet [Phenergan 25 mg PO 4X/DAY PRN PRN #30 tab 05/10/17 tablet] Docusate Sodium [Colace] 100 mg PO BID 05/19/17 Vancomycin 1,000 mg IV Q12H #76 bag 05/24/17 Amlodipine [Norvasc] 5 mg PO DAILY tablet 05/25/17 Calcium Carb/Vitamin D [Os-Skinny 1 tablet PO DAILY@0800 tablet 05/25/17 500MG + D] Diazepam [Valium] 5 mg PO 4X/DAY PRN PRN #30 tab 05/25/17 Docusate Sodium [Colace] 100 mg PO BID capsule 05/25/17 Lactobacillus Acidophilus 1 tablet PO BID tablet 05/25/17 [Acidophilus] Meloxicam [Mobic] 15 mg PO DAILY PRN tablet 05/25/17 Oxycodone HCl/Acetaminophen 1 - 2 tab PO 4X/DAY PRN PRN 7 Days 05/25/17 [Percocet 5-325] #60 tab Sertraline HCl [Zoloft] 150 mg PO DAILY@0600 tablet 05/25/17 proMETHazine tablet [Phenergan 25 mg PO Q4H PRN PRN tablet 05/25/17 tablet] traZODone [Desyrel] 50 mg PO QHS tablet 05/25/17 doxycycline hyclate 100 mg capsule See Label Instructions PO BID #28 06/11/17 cap Maternal Family History: Family History (Last Updated 02/28/17 @ 15:22 by Fernanda Polk) Unknown No problems noted. Family History: Diabetes, Heart Disease Paternal Family History: Family History (Last Updated 02/28/17 @ 15:22 by Fernanda Polk) Unknown No problems noted. Family History: No pertinent history Smoking Status: Former smoker Physical Exam Vital Signs Temp Pulse Resp BP 99 F 107 H 18 132/90 H 06/26/17 13:04 06/26/17 13:04 06/26/17 13:04 06/26/17 13:04 General: Alert, Oriented x3, Cooperative, No apparent distress, Well developed, Well nourished HEENT: Atraumatic, PERRLA, EOMI, Normocephalic Lungs: Normal air movement Psych/Mental Status: Normal Affect, Appropriate, Alert and oriented to time, place, person, mood and affect Assessment/Plan The patient appears to be tolerating hyperbaric oxygen therapy well, which will be continued as per the patient's medical plan.
--- NOTE | 2017-06-28 12:54 | NURSING ---
This nurse informed by Addi Cardona RN that pt arrived for HBO tx with c/o pain and swelling around PICC line. Dulce Martinez RN attempted to contact Dr. Ahn, who is the ordering physician and physician supervising HBO today, and was unable to do so. Pt instructed to be evaluated at the ER to determine cause of pain and swelling.
[2017-06-30 12:59] VITALS: BP 127/71; BP 145/80; PULSE 110; PULSE 86; RESP 16; TEMP 36.6; TEMP 36.9
--- NOTE | 2017-06-30 14:44 | PCM.HBO.PN ---
History of Present Illness Date of Service: 06/30/17 Presenting Chief Complaint: Compromised TRAM flap right breast reconstruction with nonhealing radiation wound. SHARON BARRAGAN is a 47 year old currently undergoing hyperbaric oxygen therapy for compromised TRAM flap right breast reconstruction with nonhealing radiation wound. Progress: The patient appears to be tolerating hyperbaric oxygen therapy well. Today represents the patient's eighth such session. Tolerance of hyperbaric oxygen therapy: Hyperbaric oxygen therapy was administered as per the facility's protocol. The patient tolerated hyperbaric oxygen therapy well, without complaints or complications. Upon emergence from the hyperbaric chamber, the patient's vital signs remained stable. The patient was discharged in good condition. 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 Allergies/Adverse Reactions: Allergies POULTRY Allergy (Uncoded 05/19/17 09:45) Anaphylaxis Home Medications: Ambulatory Orders Medication Instructions Recorded Sertraline HCl [Zoloft] 150 mg PO DAILY 01/11/16 Trazodone HCl 50 mg PO QHS 04/20/16 Amlodipine [Norvasc] 5 mg PO DAILY PRN 04/25/17 Calcium Carbonate/Vitamin D3 1 ea PO DAILY PRN 04/25/17 [Calcium 500-Vit D3 600 Tablet] Meloxicam [Mobic] 15 mg PO DAILY PRN 04/25/17 proMETHazine tablet [Phenergan 25 mg PO 4X/DAY PRN PRN #30 tab 05/10/17 tablet] Docusate Sodium [Colace] 100 mg PO BID 05/19/17 Vancomycin 1,000 mg IV Q12H #76 bag 05/24/17 Amlodipine [Norvasc] 5 mg PO DAILY tablet 05/25/17 Calcium Carb/Vitamin D [Os-Skinny 1 tablet PO DAILY@0800 tablet 05/25/17 500MG + D] Diazepam [Valium] 5 mg PO 4X/DAY PRN PRN #30 tab 05/25/17 Docusate Sodium [Colace] 100 mg PO BID capsule 05/25/17 Lactobacillus Acidophilus 1 tablet PO BID tablet 05/25/17 [Acidophilus] Meloxicam [Mobic] 15 mg PO DAILY PRN tablet 05/25/17 Oxycodone HCl/Acetaminophen 1 - 2 tab PO 4X/DAY PRN PRN 7 Days 05/25/17 [Percocet 5-325] #60 tab Sertraline HCl [Zoloft] 150 mg PO DAILY@0600 tablet 05/25/17 proMETHazine tablet [Phenergan 25 mg PO Q4H PRN PRN tablet 05/25/17 tablet] traZODone [Desyrel] 50 mg PO QHS tablet 05/25/17 doxycycline hyclate 100 mg capsule See Label Instructions PO BID #28 06/11/17 cap Maternal Family History: Family History (Last Updated 02/28/17 @ 15:22 by Fernanda Polk) Unknown No problems noted. Family History: Diabetes, Heart Disease Paternal Family History: Family History (Last Updated 02/28/17 @ 15:22 by Fernanda Polk) Unknown No problems noted. Family History: No pertinent history Smoking Status: Former smoker Physical Exam Vital Signs Temp Pulse Resp BP 98.5 F 110 H 16 145/80 H 06/30/17 12:59 06/30/17 12:59 06/30/17 12:59 06/30/17 12:59 Assessment/Plan The patient appears to be tolerating hyperbaric oxygen therapy well, which will be continued as per the patient's medical plan.
--- NOTE | 2017-06-30 16:10 | WC ---
Patient mentioned having problems with NPWT and machine. Said the device was not charging and makes a lot of noise when running. Cannister had very little crystalized drainage. Call out to Dr. Ahn for orders in case NPWT acts up over the weekend. V.A.C. dressing changed today by Urszula Rashid. Wound borders clean, clear and unmacerated. Necrotic tissue noted in the Wound Bed, however granulation tissue also present throughout 85% of wound bed. New Canister placed; VAC pumped checked and found to be working properly. Will reattempt VAC for over the weekend. VAC reapplied by Urszula Rashid and found to be working properly. Dr. Ahn returned call and confirmed orders for Silver dressing to be used over the weekend should the device fail. Dressings to be changed daily until she will be seen in follow-up w/Dr. Ahn Monday. Ms. Hyman called and notified of above orders. Understanding confirmed.
[2017-07-03 11:41] VITALS: BP 108/68; PULSE 88; RESP 16; TEMP 36.4
[2017-07-03 13:18] VITALS: BP 108/68; BP 123/65; PULSE 84; PULSE 88; RESP 16; RESP 18; TEMP 36.1; TEMP 36.4
--- NOTE | 2017-07-03 23:20 | PCM.WC.PN ---
Type of Wound Date of Service: 07/03/17 Chief Complaint: Compromised TRAM flap right breast reconstruction with nonhealing radiation wound. History of Wound: Surgery 05/23/17 - Surgical preparation right breast reconstruction with excisional debridement compromised TRAM flap (256 cm2). Surgery 05/05/17 - Surgical preparation right breast TRAM flap reconstruction with incision and drainage and evacuation hematoma. Surgery 05/02/17 - 1. Delayed right breast reconstruction with unipedicle contralateral TRAM flap. 2. Abdominal wall reconstruction with placement of Strattice acellular dermal matrix graft (100 cm2). 3. Revision radiation scar contour deformity right breast with multiple W-plasties (40 cm2). Wound care - VAC. Operative culture - MRSE, and Staphylococcus warneri, and Acinetobacter lwoffi. She has been on IV Vancomycin and PO Levaquin. Prealbumin was 19.4 on 05/19/17. While in the hospital she had slightly elevated Alkaline Phosphatase at 141 that decreased to 131. CT Abdomen showed no pathology in the liver. She also has a CXR in preparation for HBO treatments. It showed no infiltrate. There was some atelectasis. Will repeat the LFT's to continue to monitor them. Today she denies fever. Her appetite is ok. She has started HBO treatments for compromised TRAM flap and for soft tissue radionecrosis. Progress of Wound: Slightly improved. - Physical Exam Vital Signs Temp Pulse Resp BP 97.6 F L 88 16 108/68 07/03/17 13:18 07/03/17 13:18 07/03/17 13:18 07/03/17 13:18 Wound Measurements and Assessment WC - Nurse 1 - General Ulcer Measurement Start: 06/19/17 11:41 Freq: Status: Active Protocol: Activity Type Activity Date Activity User E-Sign Co-Sign Detail Recorded Client Recorded Date Recorded By Document 07/03/17 11:41 DV [id number] 07/03/17 11:48 DV 07/03/17 11:41 Wound Center Nurse 1 [Ulcer Assessment] #1 Right breast Tram flap failure -Combined with other wound No -Current Size (cm) - Length 9.3 -Current Size (cm) - Width 13.0 -Current Size (cm) - Depth 1.5 -Total Square Cm 120.90 -Date of Last Picture (Recall this 07/03/17 field) -Photo Taken Yes -Tunneling No -Undermining/Tunneling No -Circular Undermining No -Classification - Thickness Full Thickness without Exposed Support Structure -Exudate Amt Medium (34-66%) -Exudate Type Serosanguineous -Wound Margin Distinct, Outline Attached -Granulation Amt Large (67-100%) -Granulation Quality Red -Slough/Fibrin Yes -Necrosis Amt Small (1-33%) -Necrotic Tissue Type Adherent Slough -Structure Exposed Fat Layer Exposed -Texture (Meghana-wound Skin Appearance) Assessed Localized Edema -Moisture (Meghana-wound Skin Appearance Assessed ) Weeping -Color (Meghana-wound Skin Appearance) Assessed Erythema -Temperature (Meghana-wound Skin No Abnormality Appearance) (Pt Warm) -Tenderness on Palpation (Meghana-wound No Skin Appearance) -Ulcer Cleansing Rinsed/ Irrigated with Saline -Foul Odor after Cleansing No -Anesthetic Used 4% Lidocaine Solution - Nurse 2 - General Ulcer CM Notes Start: 06/19/17 11:41 Freq: Status: Active Protocol: Activity Type Activity Date Activity User E-Sign Co-Sign Detail Recorded Client Recorded Date Recorded By Document 07/03/17 12:59 [id number] 07/03/17 13:00 07/03/17 12:59 Wound Center Nurse 2 [Procedure/Treatment] -Time 12:59 -Correct Patient Yes -Correct Side, Site, Position Yes -Correct Procedure Yes -Procedure Performed Yes -Type of Procedure Debridement -Clinical Debridement Subcutaneous -Post Debridement Size (cm) - Length 9.5 -Post Debridement Size (cm) - Width 13 -Post Debridement Size (cm) - Depth 1.5 -Total Square Cm 123.5 -Wound/Ulcer Outcome Not Healed -Ulcer Cleansing Rinsed/ Irrigated with Saline -Foul Odor after Cleansing No -Bioengineered Tissue No -Bleeding Controlled with Pressure -Treatment Response Procedure Tolerated Well [See Physician Procedure note for Specifics] Pain Scale: 0-10 Numeric [Pain] -Is Patient Pain Free? Yes Debridement Note Post-Debridement Measurements/Treatment - Nurse 2 - General Ulcer CM Notes Start: 06/19/17 11:41 Freq: Status: Active Protocol: Activity Type Activity Date Activity User E-Sign Co-Sign Detail Recorded Client Recorded Date Recorded By Document 06/19/17 12:08 [id number] 06/19/17 12:09 Document 07/03/17 12:59 [id number] 07/03/17 13:00 06/19/17 07/03/17 12:08 12:59 Wound Center Nurse 2 #1 Right breast Tram flap failure -Time 12:09 12:59 -Correct Patient Yes Yes -Correct Side, Site, Position Yes Yes -Correct Procedure Yes Yes -Procedure Performed Yes Yes -Type of Procedure Debridement Debridement -Clinical Debridement Subcutaneous Subcutaneous -Post Debridement Size (cm) - Length 11.1 9.5 -Post Debridement Size (cm) - Width 13.0 13 -Post Debridement Size (cm) - Depth 2.5 1.5 -Total Square Cm 144.30 123.5 -Wound/Ulcer Outcome Not Healed Not Healed -Ulcer Cleansing Rinsed/ Rinsed/ Irrigated with Irrigated with Saline Saline -Foul Odor after Cleansing No No -Bioengineered Tissue No No -Bleeding Controlled with Pressure Pressure -Treatment Response Procedure Procedure Tolerated Well Tolerated Well Pain Scale: 0-10 Numeric Is Patient Pain Free? Yes Yes Wound debrided: #1 Right breast. Laterality: Right Wound Grade/Stage: 3. Type of Debridement: Excisional debridement Anesthesia Used: 4% Lidocaine Solution Depth: Down to and including healthy tissue, in the subcutaneous layer Percentage of wound debrided: 100 Instrument Used: 7mm curette Tissue Removed: subcutaneous tissue. Severity: Fat Layer Exposed Amount of bleeding with debridement: Mild Bleeding Controlled with: Pressure Patient tolerated procedure well Assessment/Plan Assessment: 1. Compromised TRAM flap wound right breast reconstruction. 2. Right breast cancer. 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 5. Disproportion reconstructed breasts. 6. Late effect radiation right breast. 7. Estrogen receptor status negative. 8. Former smoker. 9. s/p delayed right breast reconstruction with unipedicle contralateral TRAM flap and abdominal wall reconstruction with placement of Strattice acellular dermal matrix graft (100 cm2) and revision radiation scar contour deformity right breast with multiple W-plasties (40 cm2). 10. s/p surgical preparation right breast TRAM flap reconstruction with incision and drainage and evacuation hematoma. 11. s/p surgical preparation right breast reconstruction with excisional debridement compromised TRAM flap (256 cm2). Plan: Radiation wound is slowly improving. Will begin a VAC holiday and start Silver dressing changes daily. The remaining flap is soft and viable. The Vancomycin has been completed for the MRSE and Staphylococcus warneri. For the Acinetobacter, will continue Levaquin. The PICC line has been pulled. An Ultrasound was done which was negative for clot. Will check her weekly labs that is normally done for IV antibiotics. So will keep an eye on her alkaline phosphatase. If it rises further, then evaluation with Oncology would be done. Her CXR showed atelectasis. It is ok for HBO. Will repeat the CXR in the near future to make sure the atelectasis continues to resolve. Renewed her Percocet for pain (60 tabs). She has started HBO treatments because of her radiation soft tissue radionecrosis damage to her right breast reconstruction. It will also help her compromised flap as well. HBO will also be helpful in preparation for further flap reconstruction to complete her right breast reconstruction. She is tolerating the HBO treatments. Followup 2 weeks. It was noted there was a small seroma in the abdominal wall. It is less when the binder is worn. Continue wearing the abdominal binder.
[2017-07-05 13:36] VITALS: BP 121/83; BP 138/82; PULSE 88; PULSE 96; RESP 16; TEMP 36.6
[2017-07-06 13:58] VITALS: BP 127/70; BP 132/94; PULSE 51; PULSE 96; RESP 16; TEMP 36.8; TEMP 37
--- NOTE | 2017-07-06 16:30 | PCM.HBO.PN ---
History of Present Illness Date of Service: 07/06/17 Presenting Chief Complaint: Compromised TRAM flap right breast reconstruction with nonhealing radiation wound. SHARON BARRAGAN is a 47 year old currently undergoing hyperbaric oxygen therapy for compromised TRAM flap right breast reconstruction with nonhealing radiation wound. Progress: The patient appears to be tolerating hyperbaric oxygen therapy well. Tolerance of hyperbaric oxygen therapy: Hyperbaric oxygen therapy was administered as per the facility's protocol. The patient tolerated hyperbaric oxygen therapy well, without complaints or complications. Upon emergence from the hyperbaric chamber, the patient's vital signs remained stable. The patient was discharged in good condition. 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 Allergies/Adverse Reactions: Allergies POULTRY Allergy (Uncoded 05/19/17 09:45) Anaphylaxis Home Medications: Ambulatory Orders Medication Instructions Recorded Sertraline HCl [Zoloft] 150 mg PO DAILY 01/11/16 Trazodone HCl 50 mg PO QHS 04/20/16 Amlodipine [Norvasc] 5 mg PO DAILY PRN 04/25/17 Calcium Carbonate/Vitamin D3 1 ea PO DAILY PRN 04/25/17 [Calcium 500-Vit D3 600 Tablet] Meloxicam [Mobic] 15 mg PO DAILY PRN 04/25/17 proMETHazine tablet [Phenergan 25 mg PO 4X/DAY PRN PRN #30 tab 05/10/17 tablet] Docusate Sodium [Colace] 100 mg PO BID 05/19/17 Vancomycin 1,000 mg IV Q12H #76 bag 05/24/17 Amlodipine [Norvasc] 5 mg PO DAILY tablet 05/25/17 Calcium Carb/Vitamin D [Os-Skinny 1 tablet PO DAILY@0800 tablet 05/25/17 500MG + D] Diazepam [Valium] 5 mg PO 4X/DAY PRN PRN #30 tab 05/25/17 Docusate Sodium [Colace] 100 mg PO BID capsule 05/25/17 Lactobacillus Acidophilus 1 tablet PO BID tablet 05/25/17 [Acidophilus] Meloxicam [Mobic] 15 mg PO DAILY PRN tablet 05/25/17 Oxycodone HCl/Acetaminophen 1 - 2 tab PO 4X/DAY PRN PRN 7 Days 05/25/17 [Percocet 5-325] #60 tab Sertraline HCl [Zoloft] 150 mg PO DAILY@0600 tablet 05/25/17 proMETHazine tablet [Phenergan 25 mg PO Q4H PRN PRN tablet 05/25/17 tablet] traZODone [Desyrel] 50 mg PO QHS tablet 05/25/17 doxycycline hyclate 100 mg capsule See Label Instructions PO BID #28 06/11/17 cap Maternal Family History: Family History (Last Updated 02/28/17 @ 15:22 by Fernanda Polk) Unknown No problems noted. Family History: Diabetes, Heart Disease Paternal Family History: Family History (Last Updated 02/28/17 @ 15:22 by Fernanda Polk) Unknown No problems noted. Family History: No pertinent history Smoking Status: Former smoker Physical Exam Vital Signs Temp Pulse Resp BP 98.6 F 96 16 127/70 H 07/06/17 13:58 07/06/17 13:58 07/06/17 13:58 07/06/17 13:58 General: Alert, Oriented x3, Cooperative, No apparent distress HEENT: Atraumatic Lungs: Clear to auscultation, Normal air movement, No rhonchi, No wheeze, No rales Cardiovascular: Regular rate, Regular Rhythm, Normal S1, Normal S2 Psych/Mental Status: Normal Affect, Appropriate, Alert and oriented to time, place, person, mood and affect Assessment/Plan The patient appears to be tolerating hyperbaric oxygen therapy well, which will be continued as per the patient's medical plan.
[2017-07-07 12:59] VITALS: BP 103/72; BP 106/60; PULSE 113; PULSE 90; RESP 16; TEMP 36.8
--- NOTE | 2017-07-07 13:36 | PCM.HBO.PN ---
History of Present Illness Date of Service: 07/07/17 Presenting Chief Complaint: Compromised TRAM flap right breast reconstruction with nonhealing radiation wound. SHARON BARRAGAN is a 47 year old currently undergoing hyperbaric oxygen therapy for compromised TRAM flap right breast reconstruction with nonhealing radiation wound. Progress: The patient appears to be tolerating hyperbaric oxygen therapy well. Tolerance of hyperbaric oxygen therapy: Hyperbaric oxygen therapy was administered as per the facility's protocol. The patient tolerated hyperbaric oxygen therapy well, without complaints or complications. Upon emergence from the hyperbaric chamber, the patient's vital signs remained stable. The patient was discharged in good condition. 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 Allergies/Adverse Reactions: Allergies POULTRY Allergy (Uncoded 05/19/17 09:45) Anaphylaxis Home Medications: Ambulatory Orders Medication Instructions Recorded Sertraline HCl [Zoloft] 150 mg PO DAILY 01/11/16 Trazodone HCl 50 mg PO QHS 04/20/16 Amlodipine [Norvasc] 5 mg PO DAILY PRN 04/25/17 Calcium Carbonate/Vitamin D3 1 ea PO DAILY PRN 04/25/17 [Calcium 500-Vit D3 600 Tablet] Meloxicam [Mobic] 15 mg PO DAILY PRN 04/25/17 proMETHazine tablet [Phenergan 25 mg PO 4X/DAY PRN PRN #30 tab 05/10/17 tablet] Docusate Sodium [Colace] 100 mg PO BID 05/19/17 Vancomycin 1,000 mg IV Q12H #76 bag 05/24/17 Amlodipine [Norvasc] 5 mg PO DAILY tablet 05/25/17 Calcium Carb/Vitamin D [Os-Skinny 1 tablet PO DAILY@0800 tablet 05/25/17 500MG + D] Diazepam [Valium] 5 mg PO 4X/DAY PRN PRN #30 tab 05/25/17 Docusate Sodium [Colace] 100 mg PO BID capsule 05/25/17 Lactobacillus Acidophilus 1 tablet PO BID tablet 05/25/17 [Acidophilus] Meloxicam [Mobic] 15 mg PO DAILY PRN tablet 05/25/17 Oxycodone HCl/Acetaminophen 1 - 2 tab PO 4X/DAY PRN PRN 7 Days 05/25/17 [Percocet 5-325] #60 tab Sertraline HCl [Zoloft] 150 mg PO DAILY@0600 tablet 05/25/17 proMETHazine tablet [Phenergan 25 mg PO Q4H PRN PRN tablet 05/25/17 tablet] traZODone [Desyrel] 50 mg PO QHS tablet 05/25/17 doxycycline hyclate 100 mg capsule See Label Instructions PO BID #28 06/11/17 cap Maternal Family History: Family History (Last Updated 02/28/17 @ 15:22 by Fernanda Polk) Unknown No problems noted. Family History: Diabetes, Heart Disease Paternal Family History: Family History (Last Updated 02/28/17 @ 15:22 by Fernanda Polk) Unknown No problems noted. Family History: No pertinent history Smoking Status: Former smoker Physical Exam Vital Signs Temp Pulse Resp BP 98.3 F 113 H 16 103/72 07/07/17 12:59 07/07/17 12:59 07/07/17 12:59 07/07/17 12:59 Assessment/Plan The patient appears to be tolerating hyperbaric oxygen therapy well, which will be continued as per the patient's medical plan.
[2017-07-10 13:10] VITALS: BP 118/74; BP 125/74; PULSE 91; PULSE 97; RESP 16; TEMP 36.6; TEMP 37.1
--- NOTE | 2017-07-10 17:51 | PCM.HBO.PN ---
History of Present Illness Date of Service: 07/10/17 Presenting Chief Complaint: Compromised TRAM flap right breast reconstruction with nonhealing radiation wound. SHARON BARRAGAN is a 47 year old currently undergoing hyperbaric oxygen therapy for compromised TRAM flap right breast reconstruction with nonhealing radiation wound. Progress: The patient appears to be tolerating hyperbaric oxygen therapy well. Today's HBO session represents the 14th such session. Tolerance of hyperbaric oxygen therapy: Hyperbaric oxygen therapy was administered as per the facility's protocol. The patient tolerated hyperbaric oxygen therapy well, without complaints or complications. Upon emergence from the hyperbaric chamber, the patient's vital signs remained stable. The patient was discharged in good condition. 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 Allergies/Adverse Reactions: Allergies POULTRY Allergy (Uncoded 05/19/17 09:45) Anaphylaxis Home Medications: Ambulatory Orders Medication Instructions Recorded Sertraline HCl [Zoloft] 150 mg PO DAILY 01/11/16 Trazodone HCl 50 mg PO QHS 04/20/16 Amlodipine [Norvasc] 5 mg PO DAILY PRN 04/25/17 Calcium Carbonate/Vitamin D3 1 ea PO DAILY PRN 04/25/17 [Calcium 500-Vit D3 600 Tablet] Meloxicam [Mobic] 15 mg PO DAILY PRN 04/25/17 proMETHazine tablet [Phenergan 25 mg PO 4X/DAY PRN PRN #30 tab 05/10/17 tablet] Docusate Sodium [Colace] 100 mg PO BID 05/19/17 Vancomycin 1,000 mg IV Q12H #76 bag 05/24/17 Amlodipine [Norvasc] 5 mg PO DAILY tablet 05/25/17 Calcium Carb/Vitamin D [Os-Skinny 1 tablet PO DAILY@0800 tablet 05/25/17 500MG + D] Diazepam [Valium] 5 mg PO 4X/DAY PRN PRN #30 tab 05/25/17 Docusate Sodium [Colace] 100 mg PO BID capsule 05/25/17 Lactobacillus Acidophilus 1 tablet PO BID tablet 05/25/17 [Acidophilus] Meloxicam [Mobic] 15 mg PO DAILY PRN tablet 05/25/17 Sertraline HCl [Zoloft] 150 mg PO DAILY@0600 tablet 05/25/17 proMETHazine tablet [Phenergan 25 mg PO Q4H PRN PRN tablet 05/25/17 tablet] traZODone [Desyrel] 50 mg PO QHS tablet 05/25/17 doxycycline hyclate 100 mg capsule See Label Instructions PO BID #28 06/11/17 cap Diazepam [Valium] 5 mg PO 4X/DAY PRN PRN #30 tab 07/10/17 Oxycodone HCl/Acetaminophen 1 - 2 tab PO 4X/DAY PRN PRN 7 Days 07/10/17 [Percocet 5-325] #60 tab Maternal Family History: Family History (Last Updated 02/28/17 @ 15:22 by Fernanda Polk) Unknown No problems noted. Family History: Diabetes, Heart Disease Paternal Family History: Family History (Last Updated 02/28/17 @ 15:22 by Fernanda Polk) Unknown No problems noted. Family History: No pertinent history Smoking Status: Former smoker Physical Exam Vital Signs Temp Pulse Resp BP 98.8 F 97 16 118/74 07/10/17 13:10 07/10/17 13:10 07/10/17 13:10 07/10/17 13:10 General: Alert, Oriented x3, Cooperative, No apparent distress, Well developed, Well nourished HEENT: Atraumatic, PERRLA, EOMI, Normocephalic Lungs: Normal air movement Psych/Mental Status: Normal Affect, Appropriate, Alert and oriented to time, place, person, mood and affect Assessment/Plan The patient appears to be tolerating hyperbaric oxygen therapy well, which will continue as per the patient's medical plan.
[2017-07-13 13:15] VITALS: BP 111/72; PULSE 107; RESP 16; TEMP 36.8
[2017-07-17 12:52] VITALS: BP 113/70; BP 123/75; PULSE 84; PULSE 95; RESP 16; TEMP 36.6; TEMP 36.9
--- NOTE | 2017-07-17 16:39 | PCM.HBO.PN ---
History of Present Illness Date of Service: 07/17/17 Presenting Chief Complaint: Compromised TRAM flap right breast reconstruction with nonhealing radiation wound. SHARON BARRAGAN is a 47 year old currently undergoing hyperbaric oxygen therapy for compromised TRAM flap right breast reconstruction with nonhealing radiation wound. Progress: The patient appears to be tolerating hyperbaric oxygen therapy well. Today's HBO session represents the 16th such session. Tolerance of hyperbaric oxygen therapy: Hyperbaric oxygen therapy was administered as per the facility's protocol. The patient tolerated hyperbaric oxygen therapy well, without complaints or complications. Upon emergence from the hyperbaric chamber, the patient's vital signs remained stable. The patient was discharged in good condition. 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 Allergies/Adverse Reactions: Allergies POULTRY Allergy (Uncoded 05/19/17 09:45) Anaphylaxis Home Medications: Ambulatory Orders Medication Instructions Recorded Sertraline HCl [Zoloft] 150 mg PO DAILY 01/11/16 Trazodone HCl 50 mg PO QHS 04/20/16 Amlodipine [Norvasc] 5 mg PO DAILY PRN 04/25/17 Calcium Carbonate/Vitamin D3 1 ea PO DAILY PRN 04/25/17 [Calcium 500-Vit D3 600 Tablet] Meloxicam [Mobic] 15 mg PO DAILY PRN 04/25/17 proMETHazine tablet [Phenergan 25 mg PO 4X/DAY PRN PRN #30 tab 05/10/17 tablet] Docusate Sodium [Colace] 100 mg PO BID 05/19/17 Vancomycin 1,000 mg IV Q12H #76 bag 05/24/17 Amlodipine [Norvasc] 5 mg PO DAILY tablet 05/25/17 Calcium Carb/Vitamin D [Os-Skinny 1 tablet PO DAILY@0800 tablet 05/25/17 500MG + D] Diazepam [Valium] 5 mg PO 4X/DAY PRN PRN #30 tab 05/25/17 Docusate Sodium [Colace] 100 mg PO BID capsule 05/25/17 Lactobacillus Acidophilus 1 tablet PO BID tablet 05/25/17 [Acidophilus] Meloxicam [Mobic] 15 mg PO DAILY PRN tablet 05/25/17 Sertraline HCl [Zoloft] 150 mg PO DAILY@0600 tablet 05/25/17 proMETHazine tablet [Phenergan 25 mg PO Q4H PRN PRN tablet 05/25/17 tablet] traZODone [Desyrel] 50 mg PO QHS tablet 05/25/17 doxycycline hyclate 100 mg capsule See Label Instructions PO BID #28 06/11/17 cap Diazepam [Valium] 5 mg PO 4X/DAY PRN PRN #30 tab 07/10/17 Oxycodone HCl/Acetaminophen 1 - 2 tab PO 4X/DAY PRN PRN 7 Days 07/10/17 [Percocet 5-325] #60 tab Maternal Family History: Family History (Last Updated 02/28/17 @ 15:22 by Fernanda Polk) Unknown No problems noted. Family History: Diabetes, Heart Disease Paternal Family History: Family History (Last Updated 02/28/17 @ 15:22 by Fernanda Polk) Unknown No problems noted. Family History: No pertinent history Smoking Status: Former smoker Physical Exam Vital Signs Temp Pulse Resp BP 98.4 F 95 16 113/70 07/17/17 12:52 07/17/17 12:52 07/17/17 12:52 07/17/17 12:52 General: Alert, Oriented x3, Cooperative, No apparent distress, Well developed, Well nourished HEENT: Atraumatic, PERRLA, EOMI, Normocephalic Lungs: Normal air movement Psych/Mental Status: Normal Affect, Appropriate, Alert and oriented to time, place, person, mood and affect Assessment/Plan The patient appears to be tolerating hyperbaric oxygen therapy well, which will be continued as per the patient's medical plan.
--- NOTE | 2017-07-19 08:43 | PCM.HBO.PN ---
History of Present Illness Date of Service: 07/13/17 Presenting Chief Complaint: Compromised TRAM flap right breast reconstruction with nonhealing radiation wound. SHARON BARRAGAN is a 47 year old currently undergoing hyperbaric oxygen therapy for compromised TRAM flap right breast reconstruction with nonhealing radiation wound. Progress: The patient appears to be tolerating hyperbaric oxygen therapy well. Tolerance of hyperbaric oxygen therapy: Hyperbaric oxygen therapy was administered as per the facility's protocol. The patient tolerated hyperbaric oxygen therapy well, without complaints or complications. Upon emergence from the hyperbaric chamber, the patient's vital signs remained stable. The patient was discharged in good condition. 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 Allergies/Adverse Reactions: Allergies POULTRY Allergy (Uncoded 05/19/17 09:45) Anaphylaxis Home Medications: Ambulatory Orders Medication Instructions Recorded Sertraline HCl [Zoloft] 150 mg PO DAILY 01/11/16 Trazodone HCl 50 mg PO QHS 04/20/16 Amlodipine [Norvasc] 5 mg PO DAILY PRN 04/25/17 Calcium Carbonate/Vitamin D3 1 ea PO DAILY PRN 04/25/17 [Calcium 500-Vit D3 600 Tablet] Meloxicam [Mobic] 15 mg PO DAILY PRN 04/25/17 proMETHazine tablet [Phenergan 25 mg PO 4X/DAY PRN PRN #30 tab 05/10/17 tablet] Docusate Sodium [Colace] 100 mg PO BID 05/19/17 Vancomycin 1,000 mg IV Q12H #76 bag 05/24/17 Amlodipine [Norvasc] 5 mg PO DAILY tablet 05/25/17 Calcium Carb/Vitamin D [Os-Skinny 1 tablet PO DAILY@0800 tablet 05/25/17 500MG + D] Diazepam [Valium] 5 mg PO 4X/DAY PRN PRN #30 tab 05/25/17 Docusate Sodium [Colace] 100 mg PO BID capsule 05/25/17 Lactobacillus Acidophilus 1 tablet PO BID tablet 05/25/17 [Acidophilus] Meloxicam [Mobic] 15 mg PO DAILY PRN tablet 05/25/17 Sertraline HCl [Zoloft] 150 mg PO DAILY@0600 tablet 05/25/17 proMETHazine tablet [Phenergan 25 mg PO Q4H PRN PRN tablet 05/25/17 tablet] traZODone [Desyrel] 50 mg PO QHS tablet 05/25/17 doxycycline hyclate 100 mg capsule See Label Instructions PO BID #28 06/11/17 cap Diazepam [Valium] 5 mg PO 4X/DAY PRN PRN #30 tab 07/10/17 Oxycodone HCl/Acetaminophen 1 - 2 tab PO 4X/DAY PRN PRN 7 Days 07/10/17 [Percocet 5-325] #60 tab Maternal Family History: Family History (Last Updated 02/28/17 @ 15:22 by Fernanda Polk) Unknown No problems noted. Family History: Diabetes, Heart Disease Paternal Family History: Family History (Last Updated 02/28/17 @ 15:22 by Fernanda Polk) Unknown No problems noted. Family History: No pertinent history Smoking Status: Former smoker Physical Exam Vital Signs Temp Pulse Resp BP 98.4 F 95 16 113/70 07/17/17 12:52 07/17/17 12:52 07/17/17 12:52 07/17/17 12:52 General: Alert, Oriented x3, Cooperative, No apparent distress HEENT: Atraumatic, PERRLA, Normocephalic, TM's Clear Lungs: Clear to auscultation, Normal air movement Cardiovascular: Regular rate, Regular Rhythm Psych/Mental Status: Normal Affect, Appropriate, Alert and oriented to time, place, person, mood and affect Assessment/Plan The patient appears to be tolerating hyperbaric oxygen therapy well, which will be continued as per the patient's medical plan.
--- NOTE | 2017-08-02 17:26 | PCM.HBO.PN ---
History of Present Illness Date of Service: 08/02/17 Presenting Chief Complaint: Compromised TRAM flap right breast reconstruction with nonhealing radiation wound with soft tissue radionecrosis. 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 Progress: Today's hyperbaric oxygen treatment represents treatment #22. Tolerance of hyperbaric oxygen therapy: Hyperbaric oxygen therapy was administered as per the facility protocol. The patient tolerated hyperbaric oxygen therapy well, without complaints or complications. Upon emergence from the hyperbaric chamber, the patient's vital signs remained stable. The patient was discharged in good condition. 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 Allergies/Adverse Reactions: Allergies POULTRY Allergy (Uncoded 10/07/17 20:50) Anaphylaxis Home Medications: Ambulatory Orders Medication Instructions Recorded Sertraline HCl [Zoloft] 150 mg PO DAILY@0600 09/12/17 traZODone [Desyrel] 50 mg PO QHS 09/12/17 Diazepam [Valium] 10 mg PO 4X/DAY PRN PRN 7 Days #30 09/25/17 tab Docusate Sodium [Colace] 100 mg PO BID #60 cap 09/25/17 Iron Polysaccharide Complex 150 mg PO DAILYCM #30 cap 09/25/17 [Ferrex 150] Oxycodone HCl/Acetaminophen 1 - 2 tab PO 4X/DAY PRN PRN 7 Days 09/25/17 [Percocet 5-325] #60 tab levoFLOXacin tablet [Levaquin 500 mg PO .QDAILY #14 tab 09/25/17 tablet] proMETHazine tablet [Phenergan 25 mg PO 4X/DAY PRN PRN #30 tab 09/25/17 tablet] fentanyl 50 mcg/hr transdermal 1 patch TRANSDERMAL Q72H #5 ea 09/27/17 patch Non-Adherent Bandage [Mepitel] 2 ea TP .QOD #30 bandage 10/04/17 Maternal Family History: Family History (Last Updated 02/28/17 @ 15:22 by Fernanda Polk) Unknown No problems noted. Family History: Diabetes, Heart Disease Paternal Family History: Family History (Last Updated 02/28/17 @ 15:22 by Fernanda Polk) Unknown No problems noted. Family History: No pertinent history Smoking Status: Former smoker Physical Exam Vital Signs Temp Pulse Resp BP 98.4 F 95 16 113/70 07/17/17 12:52 07/17/17 12:52 07/17/17 12:52 07/17/17 12:52
== END 2017-07-17 23:59 ==
LOC: WC 13:00
PROVIDERS: Family Provider Internal Medicine; PCP Internal Medicine; Visit Provider Surgery
DX: T86.828 Other complications of skin graft (allograft) (autograft) (principal); Z87.891 Personal history of nicotine dependence; Z71.3 Dietary counseling and surveillance; L59.8 Other specified disorders of the skin and subcutaneous tissue related to radiation; Z79.899 Other long term (current) drug therapy; F45.29 Other hypochondriacal disorders
CPT/HCPCS: 11042; 11045; 97606; 99183; G0277

== ENCOUNTER 2017-08-17 13:00 | Outpatient (RCR) | payer MEDICAID, SELFPAY ==
[2017-07-18 00:53] VITALS: PULSE 95; RESP 16; TEMP 36.9
[2017-07-18 14:46] VITALS: BP 129/67; PULSE 101; RESP 18; TEMP 37
--- NOTE | 2017-07-18 19:58 | PCM.WC.PN ---
Type of Wound Date of Service: 07/18/17 Chief Complaint: Compromised TRAM flap right breast reconstruction with nonhealing radiation wound. History of Wound: Surgery 05/23/17 - Surgical preparation right breast reconstruction with excisional debridement compromised TRAM flap (256 cm2). Surgery 05/05/17 - Surgical preparation right breast TRAM flap reconstruction with incision and drainage and evacuation hematoma. Surgery 05/02/17 - 1. Delayed right breast reconstruction with unipedicle contralateral TRAM flap. 2. Abdominal wall reconstruction with placement of Strattice acellular dermal matrix graft (100 cm2). 3. Revision radiation scar contour deformity right breast with multiple W-plasties (40 cm2). Wound care - Silver with a VAC holiday. Operative culture - MRSE, and Staphylococcus warneri, and Acinetobacter lwoffi. She has been on IV Vancomycin and PO Levaquin and has completed them. Prealbumin was 19.4 on 05/19/17. While in the hospital she had slightly elevated Alkaline Phosphatase at 141 that decreased to 131. CT Abdomen showed no pathology in the liver. She also has a CXR in preparation for HBO treatments. It showed no infiltrate. There was some atelectasis. Will repeat the LFT's to continue to monitor them. Today she denies fever. Her appetite is ok. She has started HBO treatments for compromised TRAM flap and for soft tissue radionecrosis. Progress of Wound: Improved. - Physical Exam Vital Signs Temp Pulse Resp BP 98.6 F 101 H 18 129/67 H 07/18/17 14:46 07/18/17 14:46 07/18/17 14:46 07/18/17 14:46 Wound Measurements and Assessment WC - Nurse 1 - General Ulcer Measurement Start: 07/18/17 14:46 Freq: Status: Active Protocol: Activity Type Activity Date Activity User E-Sign Co-Sign Detail Recorded Client Recorded Date Recorded By Document 07/18/17 14:46 [id number] 07/18/17 14:53 07/18/17 14:46 Wound Center Nurse 1 [Ulcer Assessment] #1 Right breast Tram flap failure -Combined with other wound No -Current Size (cm) - Length 8.8 -Current Size (cm) - Width 13.0 -Current Size (cm) - Depth 1.0 -Total Square Cm 114.40 -Photo Taken Yes -Epithelialization Large 67-100% -Tunneling No -Undermining/Tunneling No -Circular Undermining No -Exudate Amt Large (67-100%) -Exudate Type Serosanguineous -Wound Margin Flat & Intact -Granulation Amt Large (67-100%) -Granulation Quality Red -Slough/Fibrin Yes -Necrosis Amt Small (1-33%) -Necrotic Tissue Type Adherent Slough -Structure Exposed N/A -Texture (Meghana-wound Skin Appearance) Assessed Localized Edema -Moisture (Meghana-wound Skin Appearance Assessed ) Dry/Scaly -Color (Meghana-wound Skin Appearance) Assessed -Temperature (Meghana-wound Skin No Abnormality Appearance) (Pt Warm) -Tenderness on Palpation (Meghana-wound No Skin Appearance) -Ulcer Cleansing Wound Cleanser -Foul Odor after Cleansing No -Anesthetic Used 4% Lidocaine Solution [Edema Assessment] -Lower Limb Edema Present NA - Nurse 2 - General Ulcer CM Notes Start: 07/18/17 14:46 Freq: Status: Active Protocol: Activity Type Activity Date Activity User E-Sign Co-Sign Detail Recorded Client Recorded Date Recorded By Document 07/18/17 15:06 [id number] 07/18/17 15:09 07/18/17 15:06 Wound Center Nurse 2 [Procedure/Treatment] #1 Right breast Tram flap failure -Time 15:08 -Correct Patient Yes -Correct Side, Site, Position Yes -Correct Procedure Yes -Procedure Performed Yes -Type of Procedure Debridement -Clinical Debridement Subcutaneous -Post Debridement Size (cm) - Length 8.8 -Post Debridement Size (cm) - Width 13.1 -Post Debridement Size (cm) - Depth 1.0 -Total Square Cm 115.28 -Wound/Ulcer Outcome Not Healed -Ulcer Cleansing Rinsed/ Irrigated with Saline -Foul Odor after Cleansing No -Bioengineered Tissue No -Bleeding Controlled with Pressure -Treatment Response Procedure Tolerated Well [See Physician Procedure note for Specifics] Pain Scale: 0-10 Numeric [Pain] -Is Patient Pain Free? Yes Debridement Note Post-Debridement Measurements/Treatment - Nurse 2 - General Ulcer CM Notes Start: 07/18/17 14:46 Freq: Status: Active Protocol: Activity Type Activity Date Activity User E-Sign Co-Sign Detail Recorded Client Recorded Date Recorded By Document 07/18/17 15:06 [email or web address] [id number] 07/18/17 15:09 07/18/17 15:06 Wound Center Nurse 2 #1 Right breast Tram flap failure -Time 15:08 -Correct Patient Yes -Correct Side, Site, Position Yes -Correct Procedure Yes -Procedure Performed Yes -Type of Procedure Debridement -Clinical Debridement Subcutaneous -Post Debridement Size (cm) - Length 8.8 -Post Debridement Size (cm) - Width 13.1 -Post Debridement Size (cm) - Depth 1.0 -Total Square Cm 115.28 -Wound/Ulcer Outcome Not Healed -Ulcer Cleansing Rinsed/ Irrigated with Saline -Foul Odor after Cleansing No -Bioengineered Tissue No -Bleeding Controlled with Pressure -Treatment Response Procedure Tolerated Well Pain Scale: 0-10 Numeric Is Patient Pain Free? Yes Wound debrided: #1 Right breast. Laterality: Right Wound Grade/Stage: 3. Type of Debridement: Excisional debridement Anesthesia Used: 4% Lidocaine Solution Depth: Down to and including healthy tissue, in the subcutaneous layer Percentage of wound debrided: 100 Instrument Used: 7mm curette Tissue Removed: subcutaneous tissue. Severity: Fat Layer Exposed Amount of bleeding with debridement: Mild Bleeding Controlled with: Pressure Patient tolerated procedure well Assessment/Plan Assessment: 1. Compromised TRAM flap wound right breast reconstruction. 2. Right breast cancer. 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 5. Disproportion reconstructed breasts. 6. Late effect radiation right breast. 7. Estrogen receptor status negative. 8. Former smoker. 9. s/p delayed right breast reconstruction with unipedicle contralateral TRAM flap and abdominal wall reconstruction with placement of Strattice acellular dermal matrix graft (100 cm2) and revision radiation scar contour deformity right breast with multiple W-plasties (40 cm2). 10. s/p surgical preparation right breast TRAM flap reconstruction with incision and drainage and evacuation hematoma. 11. s/p surgical preparation right breast reconstruction with excisional debridement compromised TRAM flap (256 cm2). Plan: Radiation wound is improving. Will stop the VAC holiday and continue Silver dressing changes daily. The remaining flap is soft and viable. The Vancomycin has been completed for the MRSE and Staphylococcus warneri. For the Acinetobacter, she was placed on Levaquin and has finished them. We kept an eye on the weekly labs that is normally done for IV antibiotics. The alkaline phosphatase remained elevated. Will order a fractionation of the alkaline phosphatase to see how much is from the liver and how much is from the bone. Will make an appt with Oncology. Her CXR showed atelectasis. It is ok for HBO. Will repeat the CXR in the near future to make sure the atelectasis continues to resolve. She has started HBO treatments because of her radiation soft tissue radionecrosis damage to her right breast reconstruction. It will also help her compromised flap as well. HBO will also be helpful in preparation for further flap reconstruction to complete her right breast reconstruction. She is tolerating the HBO treatments. Followup 2 weeks. It was noted there was a small seroma in the abdominal wall. It is less when the binder is worn. Continue wearing the abdominal binder.
--- NOTE | 2017-07-18 22:55 | PCM.HBO.PN ---
History of Present Illness Date of Service: 07/18/17 Presenting Chief Complaint: Compromised TRAM flap right breast reconstruction with nonhealing radiation wound. 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 Allergies/Adverse Reactions: Allergies POULTRY Allergy (Uncoded 05/19/17 09:45) Anaphylaxis Home Medications: Ambulatory Orders Medication Instructions Recorded Sertraline HCl [Zoloft] 150 mg PO DAILY 01/11/16 Trazodone HCl 50 mg PO QHS 04/20/16 Amlodipine [Norvasc] 5 mg PO DAILY PRN 04/25/17 Calcium Carbonate/Vitamin D3 1 ea PO DAILY PRN 04/25/17 [Calcium 500-Vit D3 600 Tablet] Meloxicam [Mobic] 15 mg PO DAILY PRN 04/25/17 proMETHazine tablet [Phenergan 25 mg PO 4X/DAY PRN PRN #30 tab 05/10/17 tablet] Docusate Sodium [Colace] 100 mg PO BID 05/19/17 Vancomycin 1,000 mg IV Q12H #76 bag 05/24/17 Amlodipine [Norvasc] 5 mg PO DAILY tablet 05/25/17 Calcium Carb/Vitamin D [Os-Skinny 1 tablet PO DAILY@0800 tablet 05/25/17 500MG + D] Diazepam [Valium] 5 mg PO 4X/DAY PRN PRN #30 tab 05/25/17 Docusate Sodium [Colace] 100 mg PO BID capsule 05/25/17 Lactobacillus Acidophilus 1 tablet PO BID tablet 05/25/17 [Acidophilus] Meloxicam [Mobic] 15 mg PO DAILY PRN tablet 05/25/17 Sertraline HCl [Zoloft] 150 mg PO DAILY@0600 tablet 05/25/17 proMETHazine tablet [Phenergan 25 mg PO Q4H PRN PRN tablet 05/25/17 tablet] traZODone [Desyrel] 50 mg PO QHS tablet 05/25/17 doxycycline hyclate 100 mg capsule See Label Instructions PO BID #28 06/11/17 cap Diazepam [Valium] 5 mg PO 4X/DAY PRN PRN #30 tab 07/10/17 Oxycodone HCl/Acetaminophen 1 - 2 tab PO 4X/DAY PRN PRN 7 Days 07/10/17 [Percocet 5-325] #60 tab Maternal Family History: Family History (Last Updated 02/28/17 @ 15:22 by Fernanda Polk) Unknown No problems noted. Family History: Diabetes, Heart Disease Paternal Family History: Family History (Last Updated 02/28/17 @ 15:22 by Fernanda Polk) Unknown No problems noted. Family History: No pertinent history Smoking Status: Former smoker Physical Exam Vital Signs Temp Pulse Resp BP 98.6 F 101 H 18 129/67 H 07/18/17 14:46 07/18/17 14:46 07/18/17 14:46 07/18/17 14:46
[2017-07-19 13:30] VITALS: BP 107/72; BP 116/65; PULSE 72; PULSE 84; RESP 16; TEMP 36.7; TEMP 37
[2017-07-20 13:13] VITALS: BP 107/74; BP 136/88; PULSE 60; PULSE 96; RESP 16; TEMP 36.6
[2017-07-21 11:17] VITALS: BP 111/80; BP 118/77; PULSE 104; PULSE 78; RESP 16; TEMP 36.6
--- NOTE | 2017-07-21 13:37 | PCM.HBO.PN ---
History of Present Illness Date of Service: 07/20/17 Presenting Chief Complaint: Compromised TRAM flap right breast reconstruction with nonhealing radiation wound. SHARON BARRAGAN is a 47 year old currently undergoing hyperbaric oxygen therapy for compromised TRAM flap right breast reconstruction with nonhealing radiation wound. Progress: The patient appears to be tolerating hyperbaric oxygen therapy well. Tolerance of hyperbaric oxygen therapy: Hyperbaric oxygen therapy was administered as per the facility's protocol. The patient tolerated hyperbaric oxygen therapy well, without complaints or complications. Upon emergence from the hyperbaric chamber, the patient's vital signs remained stable. The patient was discharged in good condition. 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 Allergies/Adverse Reactions: Allergies POULTRY Allergy (Uncoded 05/19/17 09:45) Anaphylaxis Home Medications: Ambulatory Orders Medication Instructions Recorded Sertraline HCl [Zoloft] 150 mg PO DAILY 01/11/16 Trazodone HCl 50 mg PO QHS 04/20/16 Amlodipine [Norvasc] 5 mg PO DAILY PRN 04/25/17 Calcium Carbonate/Vitamin D3 1 ea PO DAILY PRN 04/25/17 [Calcium 500-Vit D3 600 Tablet] Meloxicam [Mobic] 15 mg PO DAILY PRN 04/25/17 proMETHazine tablet [Phenergan 25 mg PO 4X/DAY PRN PRN #30 tab 05/10/17 tablet] Docusate Sodium [Colace] 100 mg PO BID 05/19/17 Vancomycin 1,000 mg IV Q12H #76 bag 05/24/17 Amlodipine [Norvasc] 5 mg PO DAILY tablet 05/25/17 Calcium Carb/Vitamin D [Os-Skinny 1 tablet PO DAILY@0800 tablet 05/25/17 500MG + D] Docusate Sodium [Colace] 100 mg PO BID capsule 05/25/17 Lactobacillus Acidophilus 1 tablet PO BID tablet 05/25/17 [Acidophilus] Meloxicam [Mobic] 15 mg PO DAILY PRN tablet 05/25/17 Sertraline HCl [Zoloft] 150 mg PO DAILY@0600 tablet 05/25/17 proMETHazine tablet [Phenergan 25 mg PO Q4H PRN PRN tablet 05/25/17 tablet] traZODone [Desyrel] 50 mg PO QHS tablet 05/25/17 doxycycline hyclate 100 mg capsule See Label Instructions PO BID #28 06/11/17 cap Diazepam [Valium] 5 mg PO 4X/DAY PRN PRN #30 tab 07/10/17 Diazepam [Valium] 5 mg PO 4X/DAY PRN PRN #30 tab 07/24/17 Oxycodone HCl/Acetaminophen 1 - 2 tab PO 4X/DAY PRN PRN 7 Days 07/24/17 [Percocet 5-325] #50 tab Maternal Family History: Family History (Last Updated 02/28/17 @ 15:22 by Fernanda Polk) Unknown No problems noted. Family History: Diabetes, Heart Disease Paternal Family History: Family History (Last Updated 02/28/17 @ 15:22 by Fernanda Polk) Unknown No problems noted. Family History: No pertinent history Smoking Status: Former smoker Physical Exam Vital Signs Temp Pulse Resp BP 97.9 F 96 16 107/74 07/20/17 13:13 07/20/17 13:13 07/20/17 13:13 07/20/17 13:13 General: Alert, Oriented x3, Cooperative, No apparent distress HEENT: Atraumatic, PERRLA, EOMI, Normocephalic, EAC Clear Lungs: Clear to auscultation, Normal air movement Cardiovascular: Regular rate, Regular Rhythm, Normal S1, Normal S2 Psych/Mental Status: Normal Affect, Appropriate Assessment/Plan The patient appears to be tolerating hyperbaric oxygen therapy well, which will be continued as per the patient's medical plan.
--- NOTE | 2017-07-21 14:27 | PCM.HBO.PN ---
History of Present Illness Date of Service: 07/21/17 Presenting Chief Complaint: Compromised TRAM flap right breast reconstruction with nonhealing radiation wound. SHARON BARRAGAN is a 47 year old currently undergoing hyperbaric oxygen therapy for compromised TRAM flap right breast reconstruction with nonhealing radiation wound. Progress: The patient appears to be tolerating hyperbaric oxygen therapy well. Tolerance of hyperbaric oxygen therapy: Hyperbaric oxygen therapy was administered as per the facility's protocol. The patient tolerated hyperbaric oxygen therapy well, without complaints or complications. Upon emergence from the hyperbaric chamber, the patient's vital signs remained stable. The patient was discharged in good condition. 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 Allergies/Adverse Reactions: Allergies POULTRY Allergy (Uncoded 05/19/17 09:45) Anaphylaxis Home Medications: Ambulatory Orders Medication Instructions Recorded Sertraline HCl [Zoloft] 150 mg PO DAILY 01/11/16 Trazodone HCl 50 mg PO QHS 04/20/16 Amlodipine [Norvasc] 5 mg PO DAILY PRN 04/25/17 Calcium Carbonate/Vitamin D3 1 ea PO DAILY PRN 04/25/17 [Calcium 500-Vit D3 600 Tablet] Meloxicam [Mobic] 15 mg PO DAILY PRN 04/25/17 proMETHazine tablet [Phenergan 25 mg PO 4X/DAY PRN PRN #30 tab 05/10/17 tablet] Docusate Sodium [Colace] 100 mg PO BID 05/19/17 Vancomycin 1,000 mg IV Q12H #76 bag 05/24/17 Amlodipine [Norvasc] 5 mg PO DAILY tablet 05/25/17 Calcium Carb/Vitamin D [Os-Skinny 1 tablet PO DAILY@0800 tablet 05/25/17 500MG + D] Diazepam [Valium] 5 mg PO 4X/DAY PRN PRN #30 tab 05/25/17 Docusate Sodium [Colace] 100 mg PO BID capsule 05/25/17 Lactobacillus Acidophilus 1 tablet PO BID tablet 05/25/17 [Acidophilus] Meloxicam [Mobic] 15 mg PO DAILY PRN tablet 05/25/17 Sertraline HCl [Zoloft] 150 mg PO DAILY@0600 tablet 05/25/17 proMETHazine tablet [Phenergan 25 mg PO Q4H PRN PRN tablet 05/25/17 tablet] traZODone [Desyrel] 50 mg PO QHS tablet 05/25/17 doxycycline hyclate 100 mg capsule See Label Instructions PO BID #28 06/11/17 cap Diazepam [Valium] 5 mg PO 4X/DAY PRN PRN #30 tab 07/10/17 Oxycodone HCl/Acetaminophen 1 - 2 tab PO 4X/DAY PRN PRN 7 Days 07/10/17 [Percocet 5-325] #60 tab Maternal Family History: Family History (Last Updated 02/28/17 @ 15:22 by Fernanda Polk) Unknown No problems noted. Family History: Diabetes, Heart Disease Paternal Family History: Family History (Last Updated 02/28/17 @ 15:22 by Fernanda Polk) Unknown No problems noted. Family History: No pertinent history Smoking Status: Former smoker Physical Exam Vital Signs Temp Pulse Resp BP 97.8 F 104 H 16 111/80 07/21/17 11:17 07/21/17 11:17 07/21/17 11:17 07/21/17 11:17 Assessment/Plan R breast flap from radiation nonhealing wounds continue treatments as prescribed with HBO .VS stable and Nurses notes reviewed
[2017-07-24 14:14] VITALS: BP 128/55; BP 133/60; PULSE 75; PULSE 84; RESP 18; TEMP 36.1; TEMP 37
--- NOTE | 2017-07-24 15:15 | PCM.HBO.PN ---
History of Present Illness Date of Service: 07/24/17 Presenting Chief Complaint: Compromised TRAM flap right breast reconstruction with nonhealing radiation wound. SHARON BARRAGAN is a 47 year old currently undergoing hyperbaric oxygen therapy for compromised TRAM flap right breast reconstruction with nonhealing radiation wound. Progress: The patient appears to be tolerating hyperbaric oxygen therapy well. Today's hyperbaric session represents the 20th such hyperbaric oxygen treatment. Tolerance of hyperbaric oxygen therapy: Hyperbaric oxygen therapy was administered as per the facility's protocol. The patient tolerated hyperbaric oxygen therapy well, without complaints or complications. Upon emergence from the hyperbaric chamber, the patient's vital signs remained stable. The patient was discharged in good condition. 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 Allergies/Adverse Reactions: Allergies POULTRY Allergy (Uncoded 05/19/17 09:45) Anaphylaxis Home Medications: Ambulatory Orders Medication Instructions Recorded Sertraline HCl [Zoloft] 150 mg PO DAILY 01/11/16 Trazodone HCl 50 mg PO QHS 04/20/16 Amlodipine [Norvasc] 5 mg PO DAILY PRN 04/25/17 Calcium Carbonate/Vitamin D3 1 ea PO DAILY PRN 04/25/17 [Calcium 500-Vit D3 600 Tablet] Meloxicam [Mobic] 15 mg PO DAILY PRN 04/25/17 proMETHazine tablet [Phenergan 25 mg PO 4X/DAY PRN PRN #30 tab 05/10/17 tablet] Docusate Sodium [Colace] 100 mg PO BID 05/19/17 Vancomycin 1,000 mg IV Q12H #76 bag 05/24/17 Amlodipine [Norvasc] 5 mg PO DAILY tablet 05/25/17 Calcium Carb/Vitamin D [Os-Skinny 1 tablet PO DAILY@0800 tablet 05/25/17 500MG + D] Docusate Sodium [Colace] 100 mg PO BID capsule 03/08/18 Lactobacillus Acidophilus 1 tablet PO BID tablet 05/25/17 [Acidophilus] Meloxicam [Mobic] 15 mg PO DAILY PRN tablet 05/25/17 Sertraline HCl [Zoloft] 150 mg PO DAILY@0600 tablet 05/25/17 proMETHazine tablet [Phenergan 25 mg PO Q4H PRN PRN tablet 05/25/17 tablet] traZODone [Desyrel] 50 mg PO QHS tablet 05/25/17 doxycycline hyclate 100 mg capsule See Label Instructions PO BID #28 06/11/17 cap Diazepam [Valium] 5 mg PO 4X/DAY PRN PRN #30 tab 07/10/17 Diazepam [Valium] 5 mg PO 4X/DAY PRN PRN #30 tab 07/24/17 Oxycodone HCl/Acetaminophen 1 - 2 tab PO 4X/DAY PRN PRN 7 Days 07/24/17 [Percocet 5-325] #50 tab Maternal Family History: Family History (Last Updated 02/28/17 @ 15:22 by Fernanda Polk) Unknown No problems noted. Family History: Diabetes, Heart Disease Paternal Family History: Family History (Last Updated 02/28/17 @ 15:22 by Fernanda Polk) Unknown No problems noted. Family History: No pertinent history Smoking Status: Former smoker Physical Exam Vital Signs Temp Pulse Resp BP 98.6 F 84 18 128/55 H 07/24/17 14:14 07/24/17 14:14 07/24/17 14:14 07/24/17 14:14 General: Alert, Oriented x3, Cooperative, No apparent distress, Well developed, Well nourished HEENT: Atraumatic, PERRLA, EOMI, Normocephalic Lungs: Normal air movement Psych/Mental Status: Normal Affect, Appropriate, Alert and oriented to time, place, person, mood and affect Assessment/Plan Patient appears to be tolerating hyperbaric oxygen therapy well, which will continue as per the patient's medical plan.
[2017-07-24 16:09] LABS: Alkaline Phosphatase, Serum 126 IU/L (39-117); Bone Fraction 21 % (14-68); Liver Fraction 79 % (18-85)
[2017-07-25 11:31] LABS: Intestinal Fraction 0 % (0-18)
[2017-07-28 12:13] VITALS: BP 123/68; BP 98/62; PULSE 76; PULSE 85; RESP 16; TEMP 36.3; TEMP 36.9
--- NOTE | 2017-07-28 15:40 | PCM.HBO.PN ---
History of Present Illness Date of Service: 07/28/17 Presenting Chief Complaint: Compromised TRAM flap right breast reconstruction with nonhealing radiation wound. SHARON BARRAGAN is a 47 year old currently undergoing hyperbaric oxygen therapy for compromised TRAM flap right breast reconstruction with nonhealing radiation wound. Progress: The patient appears to be tolerating hyperbaric oxygen therapy well. Today's session represents the 21st session of hyperbaric oxygen therapy. Tolerance of hyperbaric oxygen therapy: Hyperbaric oxygen therapy was administered as per the facility's protocol. The patient tolerated hyperbaric oxygen therapy well, without complaints or complications. Upon emergence from the hyperbaric chamber, the patient's vital signs remained stable. The patient was discharged in good condition. 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 Allergies/Adverse Reactions: Allergies POULTRY Allergy (Uncoded 05/19/17 09:45) Anaphylaxis Home Medications: Ambulatory Orders Medication Instructions Recorded Sertraline HCl [Zoloft] 150 mg PO DAILY 01/11/16 Trazodone HCl 50 mg PO QHS 04/20/16 Amlodipine [Norvasc] 5 mg PO DAILY PRN 04/25/17 Calcium Carbonate/Vitamin D3 1 ea PO DAILY PRN 04/25/17 [Calcium 500-Vit D3 600 Tablet] Meloxicam [Mobic] 15 mg PO DAILY PRN 04/25/17 proMETHazine tablet [Phenergan 25 mg PO 4X/DAY PRN PRN #30 tab 05/10/17 tablet] Docusate Sodium [Colace] 100 mg PO BID 05/19/17 Vancomycin 1,000 mg IV Q12H #76 bag 05/24/17 Amlodipine [Norvasc] 5 mg PO DAILY tablet 05/25/17 Calcium Carb/Vitamin D [Os-Skinny 1 tablet PO DAILY@0800 tablet 05/25/17 500MG + D] Docusate Sodium [Colace] 100 mg PO BID capsule 05/25/17 Lactobacillus Acidophilus 1 tablet PO BID tablet 05/25/17 [Acidophilus] Meloxicam [Mobic] 15 mg PO DAILY PRN tablet 05/25/17 Sertraline HCl [Zoloft] 150 mg PO DAILY@0600 tablet 05/25/17 proMETHazine tablet [Phenergan 25 mg PO Q4H PRN PRN tablet 05/25/17 tablet] traZODone [Desyrel] 50 mg PO QHS tablet 05/25/17 doxycycline hyclate 100 mg capsule See Label Instructions PO BID #28 06/11/17 cap Diazepam [Valium] 5 mg PO 4X/DAY PRN PRN #30 tab 07/10/17 Diazepam [Valium] 5 mg PO 4X/DAY PRN PRN #30 tab 07/24/17 Oxycodone HCl/Acetaminophen 1 - 2 tab PO 4X/DAY PRN PRN 7 Days 07/24/17 [Percocet 5-325] #50 tab Maternal Family History: Family History (Last Updated 02/28/17 @ 15:22 by Fernanda Polk) Unknown No problems noted. Family History: Diabetes, Heart Disease Paternal Family History: Family History (Last Updated 02/28/17 @ 15:22 by Fernanda Polk) Unknown No problems noted. Family History: No pertinent history Smoking Status: Former smoker Physical Exam Vital Signs Temp Pulse Resp BP 98.4 F 85 16 98/62 07/28/17 12:13 07/28/17 12:13 07/28/17 12:13 07/28/17 12:13 General: Alert, Oriented x3, Cooperative, No apparent distress, Well developed, Well nourished HEENT: Atraumatic, PERRLA, EOMI, Normocephalic Lungs: Normal air movement Psych/Mental Status: Normal Affect, Appropriate, Alert and oriented to time, place, person, mood and affect Assessment/Plan The patient appears to be tolerating hyperbaric oxygen therapy well, which will be continued as per the patient's medical plan.
[2017-07-31 11:43] VITALS: BP 119/73; PULSE 85; RESP 20; TEMP 36.6
--- NOTE | 2017-07-31 23:49 | PCM.WC.PN ---
Type of Wound Date of Service: 07/31/17 Chief Complaint: Compromised TRAM flap right breast reconstruction with nonhealing radiation wound. History of Wound: Surgery 05/23/17 - Surgical preparation right breast reconstruction with excisional debridement compromised TRAM flap (256 cm2). Surgery 05/05/17 - Surgical preparation right breast TRAM flap reconstruction with incision and drainage and evacuation hematoma. Surgery 05/02/17 - 1. Delayed right breast reconstruction with unipedicle contralateral TRAM flap. 2. Abdominal wall reconstruction with placement of Strattice acellular dermal matrix graft (100 cm2). 3. Revision radiation scar contour deformity right breast with multiple W-plasties (40 cm2). Wound care - Silver. Operative culture - MRSE, and Staphylococcus warneri, and Acinetobacter lwoffi. She has been on IV Vancomycin and PO Levaquin and has completed them. Prealbumin was 19.4 on 05/19/17. While in the hospital she had slightly elevated Alkaline Phosphatase at 141 that decreased to 131. CT Abdomen showed no pathology in the liver. She also has a CXR in preparation for HBO treatments. It showed no infiltrate. There was some atelectasis. Will monitored the LFT's from the IV antibiotics. The alkaline phosphatase remained elevated. We fractionated it which was normal. She also saw her Oncologist who reassured her. No need for further evaluation at this time. Today she denies fever. Her appetite is ok. She has started HBO treatments for compromised TRAM flap and for soft tissue radionecrosis. Progress of Wound: Improved. - Physical Exam Vital Signs Temp Pulse Resp BP 98 F 85 20 H 119/73 07/31/17 11:43 07/31/17 11:43 07/31/17 11:43 07/31/17 11:43 Wound Measurements and Assessment WC - Nurse 1 - General Ulcer Measurement Start: 07/18/17 14:46 Freq: Status: Active Protocol: Activity Type Activity Date Activity User E-Sign Co-Sign Detail Recorded Client Recorded Date Recorded By Document 07/31/17 11:43 DL [id number] 07/31/17 11:51 DL 07/31/17 11:43 Wound Center Nurse 1 [Ulcer Assessment] #1 Right breast Tram flap failure -Current Size (cm) - Length 8 -Current Size (cm) - Width 9.2 -Current Size (cm) - Depth 0.1 -Total Square Cm 73.6 -Photo Taken No -Exudate Amt Medium (34-66%) -Exudate Type Serosanguineous -Wound Margin Distinct, Outline Attached -Granulation Amt Medium (34-66%) -Granulation Quality Red -Necrosis Amt Medium (34-66%) -Necrotic Tissue Type Adherent Slough -Structure Exposed N/A -Texture (Meghana-wound Skin Appearance) Scarring -Moisture (Meghana-wound Skin Appearance No Abnormality ) -Color (Meghana-wound Skin Appearance) No Abnormality -Temperature (Meghana-wound Skin No Abnormality Appearance) (Pt Warm) -Ulcer Cleansing Rinsed/ Irrigated with Saline -Foul Odor after Cleansing No -Anesthetic Used 4% Lidocaine Solution - Nurse 2 - General Ulcer CM Notes Start: 07/18/17 14:46 Freq: Status: Active Protocol: Activity Type Activity Date Activity User E-Sign Co-Sign Detail Recorded Client Recorded Date Recorded By Document 07/31/17 12:54 [id number] 07/31/17 12:55 07/31/17 12:54 Wound Center Nurse 2 [Procedure/Treatment] -Time 12:54 -Correct Patient Yes -Correct Side, Site, Position Yes -Correct Procedure Yes -Procedure Performed Yes -Type of Procedure Debridement -Clinical Debridement Subcutaneous -Post Debridement Size (cm) - Length 8 -Post Debridement Size (cm) - Width 9.3 -Post Debridement Size (cm) - Depth 0.1 -Total Square Cm 74.4 -Wound/Ulcer Outcome Not Healed -Ulcer Cleansing Rinsed/ Irrigated with Saline -Foul Odor after Cleansing No -Bioengineered Tissue No -Bleeding Controlled with Pressure -Treatment Response Procedure Tolerated Well [See Physician Procedure note for Specifics] Pain Scale: 0-10 Numeric [Pain] -Is Patient Pain Free? Yes Debridement Note Post-Debridement Measurements/Treatment - Nurse 2 - General Ulcer CM Notes Start: 07/18/17 14:46 Freq: Status: Active Protocol: Activity Type Activity Date Activity User E-Sign Co-Sign Detail Recorded Client Recorded Date Recorded By Document 07/18/17 15:06 [id number] 07/18/17 15:09 Document 07/31/17 12:54 [id number] 07/31/17 12:55 07/18/17 07/31/17 15:06 12:54 Wound Center Nurse 2 #1 Right breast Tram flap failure -Time 15:08 12:54 -Correct Patient Yes Yes -Correct Side, Site, Position Yes Yes -Correct Procedure Yes Yes -Procedure Performed Yes Yes -Type of Procedure Debridement Debridement -Clinical Debridement Subcutaneous Subcutaneous -Post Debridement Size (cm) - Length 8.8 8 -Post Debridement Size (cm) - Width 13.1 9.3 -Post Debridement Size (cm) - Depth 1.0 0.1 -Total Square Cm 115.28 74.4 -Wound/Ulcer Outcome Not Healed Not Healed -Ulcer Cleansing Rinsed/ Rinsed/ Irrigated with Irrigated with Saline Saline -Foul Odor after Cleansing No No -Bioengineered Tissue No No -Bleeding Controlled with Pressure Pressure -Treatment Response Procedure Procedure Tolerated Well Tolerated Well Pain Scale: 0-10 Numeric Is Patient Pain Free? Yes Yes Wound debrided: #1 Right breast. Laterality: Right Wound Grade/Stage: 3. Type of Debridement: Excisional debridement Anesthesia Used: 4% Lidocaine Solution Depth: Down to and including healthy tissue, in the subcutaneous layer Percentage of wound debrided: 100 Instrument Used: 7mm curette Tissue Removed: subcutaneous tissue. Severity: Fat Layer Exposed Amount of bleeding with debridement: Mild Bleeding Controlled with: Pressure Patient tolerated procedure well Assessment/Plan Assessment: 1. Compromised TRAM flap wound right breast reconstruction. 2. Right breast cancer. 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 5. Disproportion reconstructed breasts. 6. Late effect radiation right breast. 7. Estrogen receptor status negative. 8. Former smoker. 9. s/p delayed right breast reconstruction with unipedicle contralateral TRAM flap and abdominal wall reconstruction with placement of Strattice acellular dermal matrix graft (100 cm2) and revision radiation scar contour deformity right breast with multiple W-plasties (40 cm2). 10. s/p surgical preparation right breast TRAM flap reconstruction with incision and drainage and evacuation hematoma. 11. s/p surgical preparation right breast reconstruction with excisional debridement compromised TRAM flap (256 cm2). Plan: Radiation wound is improving. Continue Silver dressing changes daily. The remaining flap is soft and viable. The Vancomycin has been completed for the MRSE and Staphylococcus warneri. For the Acinetobacter, she was placed on Levaquin and has finished them. We kept an eye on the weekly labs that is normally done for IV antibiotics. The alkaline phosphatase remained elevated. The fractionation of the alkaline phosphatase was normal. She saw her Oncologist and reassured her that no further evaluation is necessary at this time. Her CXR showed atelectasis. It is ok for HBO. Will repeat the CXR in the near future to make sure the atelectasis continues to resolve. She has started HBO treatments because of her radiation soft tissue radionecrosis damage to her right breast reconstruction. It will also help her compromised flap as well. HBO will also be helpful in preparation for further flap reconstruction to complete her right breast reconstruction. She is tolerating the HBO treatments. Renewed her Percocet for pain (40 tabs). Followup 2 weeks. It was noted there was a small seroma in the abdominal wall. It is less when the binder is worn. Continue wearing the abdominal binder.
[2017-08-02 12:44] VITALS: BP 109/69; BP 109/70; PULSE 84; PULSE 85; RESP 16; TEMP 36.6; TEMP 36.8
[2017-08-03 13:46] VITALS: BP 115/77; BP 124/95; PULSE 74; PULSE 83; RESP 16; TEMP 36.3; TEMP 36.9
--- NOTE | 2017-08-03 16:19 | PCM.HBO.PN ---
History of Present Illness Date of Service: 08/03/17 Presenting Chief Complaint: Compromised TRAM flap right breast reconstruction with nonhealing radiation wound. SHARON BARRAGAN is a 47 year old currently undergoing hyperbaric oxygen therapy for compromised TRAM flap right breast reconstruction with nonhealing radiation wound. Progress: The patient appears to be tolerating hyperbaric oxygen therapy well. Today's session represents the 22 session of hyperbaric oxygen therapy. Tolerance of hyperbaric oxygen therapy: Hyperbaric oxygen therapy was administered as per the facility's protocol. The patient tolerated hyperbaric oxygen therapy well, without complaints or complications. Upon emergence from the hyperbaric chamber, the patient's vital signs remained stable. The patient was discharged in good condition. 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 Allergies/Adverse Reactions: Allergies POULTRY Allergy (Uncoded 05/19/17 09:45) Anaphylaxis Home Medications: Ambulatory Orders Medication Instructions Recorded Sertraline HCl [Zoloft] 150 mg PO DAILY 01/11/16 Trazodone HCl 50 mg PO QHS 04/20/16 Amlodipine [Norvasc] 5 mg PO DAILY PRN 04/25/17 Calcium Carbonate/Vitamin D3 1 ea PO DAILY PRN 04/25/17 [Calcium 500-Vit D3 600 Tablet] Meloxicam [Mobic] 15 mg PO DAILY PRN 04/25/17 proMETHazine tablet [Phenergan 25 mg PO 4X/DAY PRN PRN #30 tab 05/10/17 tablet] Docusate Sodium [Colace] 100 mg PO BID 05/19/17 Vancomycin 1,000 mg IV Q12H #76 bag 05/24/17 Amlodipine [Norvasc] 5 mg PO DAILY tablet 05/25/17 Calcium Carb/Vitamin D [Os-Skinny 1 tablet PO DAILY@0800 tablet 05/25/17 500MG + D] Docusate Sodium [Colace] 100 mg PO BID capsule 05/25/17 Lactobacillus Acidophilus 1 tablet PO BID tablet 05/25/17 [Acidophilus] Meloxicam [Mobic] 15 mg PO DAILY PRN tablet 05/25/17 Sertraline HCl [Zoloft] 150 mg PO DAILY@0600 tablet 05/25/17 proMETHazine tablet [Phenergan 25 mg PO Q4H PRN PRN tablet 05/25/17 tablet] traZODone [Desyrel] 50 mg PO QHS tablet 05/25/17 doxycycline hyclate 100 mg capsule See Label Instructions PO BID #28 06/11/17 cap Diazepam [Valium] 5 mg PO 4X/DAY PRN PRN #30 tab 07/10/17 Diazepam [Valium] 5 mg PO 4X/DAY PRN PRN #30 tab 07/24/17 Oxycodone HCl/Acetaminophen 1 - 2 tab PO 4X/DAY PRN PRN 7 Days 07/24/17 [Percocet 5-325] #50 tab Maternal Family History: Family History (Last Updated 02/28/17 @ 15:22 by Fernanda Polk) Unknown No problems noted. Family History: Diabetes, Heart Disease Paternal Family History: Family History (Last Updated 02/28/17 @ 15:22 by Fernanda Polk) Unknown No problems noted. Family History: No pertinent history Smoking Status: Former smoker Physical Exam Vital Signs Temp Pulse Resp BP 98.4 F 83 16 124/95 H 08/03/17 13:46 08/03/17 13:46 08/03/17 13:46 08/03/17 13:46 General: Alert, Oriented x3, Cooperative, No apparent distress HEENT: Atraumatic, PERRLA, TM's Clear Lungs: Clear to auscultation, Normal air movement Cardiovascular: Regular rate, Regular Rhythm Psych/Mental Status: Normal Affect, Appropriate, Alert and oriented to time, place, person, mood and affect Assessment/Plan The patient appears to be tolerating hyperbaric oxygen therapy well, which will be continued as per the patient's medical plan.
[2017-08-04 12:27] VITALS: BP 111/75; BP 137/72; PULSE 75; PULSE 92; RESP 16; TEMP 36.2; TEMP 37.1
--- NOTE | 2017-08-04 15:33 | PCM.HBO.PN ---
History of Present Illness Date of Service: 08/04/17 Presenting Chief Complaint: Compromised TRAM flap right breast reconstruction with nonhealing radiation wound. SHARON BARRAGAN is a 47 year old currently undergoing hyperbaric oxygen therapy for compromised TRAM flap right breast reconstruction with nonhealing radiation wound. Progress: The patient appears to be tolerating hyperbaric oxygen therapy well. Today's session represents the 22 session of hyperbaric oxygen therapy. Tolerance of hyperbaric oxygen therapy: Hyperbaric oxygen therapy was administered as per the facility's protocol. The patient tolerated hyperbaric oxygen therapy well, without complaints or complications. Upon emergence from the hyperbaric chamber, the patient's vital signs remained stable. The patient was discharged in good condition. 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 Allergies/Adverse Reactions: Allergies POULTRY Allergy (Uncoded 05/19/17 09:45) Anaphylaxis Home Medications: Ambulatory Orders Medication Instructions Recorded Sertraline HCl [Zoloft] 150 mg PO DAILY 01/11/16 Trazodone HCl 50 mg PO QHS 04/20/16 Amlodipine [Norvasc] 5 mg PO DAILY PRN 04/25/17 Calcium Carbonate/Vitamin D3 1 ea PO DAILY PRN 04/25/17 [Calcium 500-Vit D3 600 Tablet] Meloxicam [Mobic] 15 mg PO DAILY PRN 04/25/17 proMETHazine tablet [Phenergan 25 mg PO 4X/DAY PRN PRN #30 tab 05/10/17 tablet] Docusate Sodium [Colace] 100 mg PO BID 05/19/17 Vancomycin 1,000 mg IV Q12H #76 bag 05/24/17 Amlodipine [Norvasc] 5 mg PO DAILY tablet 05/25/17 Calcium Carb/Vitamin D [Os-Skinny 1 tablet PO DAILY@0800 tablet 05/25/17 500MG + D] Docusate Sodium [Colace] 100 mg PO BID capsule 05/25/17 Lactobacillus Acidophilus 1 tablet PO BID tablet 05/25/17 [Acidophilus] Meloxicam [Mobic] 15 mg PO DAILY PRN tablet 05/25/17 Sertraline HCl [Zoloft] 150 mg PO DAILY@0600 tablet 05/25/17 proMETHazine tablet [Phenergan 25 mg PO Q4H PRN PRN tablet 05/25/17 tablet] traZODone [Desyrel] 50 mg PO QHS tablet 05/25/17 doxycycline hyclate 100 mg capsule See Label Instructions PO BID #28 06/11/17 cap Diazepam [Valium] 5 mg PO 4X/DAY PRN PRN #30 tab 07/10/17 Diazepam [Valium] 5 mg PO 4X/DAY PRN PRN #30 tab 07/24/17 Oxycodone HCl/Acetaminophen 1 - 2 tab PO 4X/DAY PRN PRN 7 Days 07/24/17 [Percocet 5-325] #50 tab Maternal Family History: Family History (Last Updated 02/28/17 @ 15:22 by Fernanda Polk) Unknown No problems noted. Family History: Diabetes, Heart Disease Paternal Family History: Family History (Last Updated 02/28/17 @ 15:22 by Fernanda Polk) Unknown No problems noted. Family History: No pertinent history Smoking Status: Former smoker Physical Exam Vital Signs Temp Pulse Resp BP 98.7 F 92 16 111/75 08/04/17 12:27 08/04/17 12:27 08/04/17 12:27 08/04/17 12:27 Assessment/Plan The patient appears to be tolerating hyperbaric oxygen therapy well, which will be continued as per the patient's medical plan.
[2017-08-07 13:13] VITALS: BP 109/60; BP 129/82; PULSE 107; PULSE 74; RESP 16; TEMP 36.4; TEMP 36.9
--- NOTE | 2017-08-07 16:19 | PCM.HBO.PN ---
History of Present Illness Date of Service: 08/07/17 Presenting Chief Complaint: Compromised TRAM flap right breast reconstruction with nonhealing radiation wound. SHARON BARRAGAN is a 47 year old currently undergoing hyperbaric oxygen therapy for compromised TRAM flap right breast reconstruction with nonhealing radiation wound. Progress: The patient appears to be tolerating hyperbaric oxygen therapy well. Today's session represents the 25th session of hyperbaric oxygen therapy. Tolerance of hyperbaric oxygen therapy: Hyperbaric oxygen therapy was administered as per the facility's protocol. The patient tolerated hyperbaric oxygen therapy well, without complaints or complications. Upon emergence from the hyperbaric chamber, the patient's vital signs remained stable. The patient was discharged in good condition. 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 Allergies/Adverse Reactions: Allergies POULTRY Allergy (Uncoded 05/19/17 09:45) Anaphylaxis Home Medications: Ambulatory Orders Medication Instructions Recorded Sertraline HCl [Zoloft] 150 mg PO DAILY 01/11/16 Trazodone HCl 50 mg PO QHS 04/20/16 Amlodipine [Norvasc] 5 mg PO DAILY PRN 04/25/17 Calcium Carbonate/Vitamin D3 1 ea PO DAILY PRN 04/25/17 [Calcium 500-Vit D3 600 Tablet] Meloxicam [Mobic] 15 mg PO DAILY PRN 04/25/17 proMETHazine tablet [Phenergan 25 mg PO 4X/DAY PRN PRN #30 tab 05/10/17 tablet] Docusate Sodium [Colace] 100 mg PO BID 05/19/17 Vancomycin 1,000 mg IV Q12H #76 bag 05/24/17 Amlodipine [Norvasc] 5 mg PO DAILY tablet 05/25/17 Calcium Carb/Vitamin D [Os-Skinny 1 tablet PO DAILY@0800 tablet 05/25/17 500MG + D] Docusate Sodium [Colace] 100 mg PO BID capsule 05/25/17 Lactobacillus Acidophilus 1 tablet PO BID tablet 05/25/17 [Acidophilus] Meloxicam [Mobic] 15 mg PO DAILY PRN tablet 05/25/17 Sertraline HCl [Zoloft] 150 mg PO DAILY@0600 tablet 05/25/17 proMETHazine tablet [Phenergan 25 mg PO Q4H PRN PRN tablet 05/25/17 tablet] traZODone [Desyrel] 50 mg PO QHS tablet 05/25/17 doxycycline hyclate 100 mg capsule See Label Instructions PO BID #28 06/11/17 cap Diazepam [Valium] 5 mg PO 4X/DAY PRN PRN #30 tab 07/10/17 Diazepam [Valium] 5 mg PO 4X/DAY PRN PRN #30 tab 07/24/17 Oxycodone HCl/Acetaminophen 1 - 2 tab PO 4X/DAY PRN PRN 7 Days 07/24/17 [Percocet 5-325] #50 tab Maternal Family History: Family History (Last Updated 02/28/17 @ 15:22 by Fernanda Polk) Unknown No problems noted. Family History: Diabetes, Heart Disease Paternal Family History: Family History (Last Updated 02/28/17 @ 15:22 by Fernanda Polk) Unknown No problems noted. Family History: No pertinent history Smoking Status: Former smoker Physical Exam Vital Signs Temp Pulse Resp BP 98.4 F 107 H 16 129/82 H 08/07/17 13:13 08/07/17 13:13 08/07/17 13:13 08/07/17 13:13 General: Alert, Oriented x3, Cooperative, No apparent distress, Well developed, Well nourished HEENT: Atraumatic, PERRLA, EOMI, Normocephalic Lungs: Normal air movement Psych/Mental Status: Normal Affect, Appropriate, Alert and oriented to time, place, person, mood and affect Assessment/Plan The patient appears to be tolerating hyperbaric oxygen therapy well, which will be continued as per the patient's medical plan.
[2017-08-10 13:08] VITALS: BP 122/71; BP 139/70; PULSE 83; PULSE 93; RESP 16; TEMP 37.1
--- NOTE | 2017-08-10 13:48 | PCM.HBO.PN ---
History of Present Illness Date of Service: 08/10/17 Presenting Chief Complaint: Compromised TRAM flap right breast reconstruction with nonhealing radiation wound. SHARON BARRAGAN is a 47 year old currently undergoing hyperbaric oxygen therapy for compromised TRAM flap right breast reconstruction with nonhealing radiation wound. Progress: The patient appears to be tolerating hyperbaric oxygen therapy well. Today's session represents the 26th session of hyperbaric oxygen therapy. Tolerance of hyperbaric oxygen therapy: Hyperbaric oxygen therapy was administered as per the facility's protocol. The patient tolerated hyperbaric oxygen therapy well, without complaints or complications. Upon emergence from the hyperbaric chamber, the patient's vital signs remained stable. The patient was discharged in good condition. 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 Allergies/Adverse Reactions: Allergies POULTRY Allergy (Uncoded 05/19/17 09:45) Anaphylaxis Home Medications: Ambulatory Orders Medication Instructions Recorded Sertraline HCl [Zoloft] 150 mg PO DAILY 01/11/16 Trazodone HCl 50 mg PO QHS 04/20/16 Amlodipine [Norvasc] 5 mg PO DAILY PRN 04/25/17 Calcium Carbonate/Vitamin D3 1 ea PO DAILY PRN 04/25/17 [Calcium 500-Vit D3 600 Tablet] Meloxicam [Mobic] 15 mg PO DAILY PRN 04/25/17 proMETHazine tablet [Phenergan 25 mg PO 4X/DAY PRN PRN #30 tab 05/10/17 tablet] Docusate Sodium [Colace] 100 mg PO BID 05/19/17 Vancomycin 1,000 mg IV Q12H #76 bag 05/24/17 Amlodipine [Norvasc] 5 mg PO DAILY tablet 05/25/17 Calcium Carb/Vitamin D [Os-Skinny 1 tablet PO DAILY@0800 tablet 05/25/17 500MG + D] Docusate Sodium [Colace] 100 mg PO BID capsule 05/25/17 Lactobacillus Acidophilus 1 tablet PO BID tablet 05/25/17 [Acidophilus] Meloxicam [Mobic] 15 mg PO DAILY PRN tablet 05/25/17 Sertraline HCl [Zoloft] 150 mg PO DAILY@0600 tablet 05/25/17 proMETHazine tablet [Phenergan 25 mg PO Q4H PRN PRN tablet 05/25/17 tablet] traZODone [Desyrel] 50 mg PO QHS tablet 05/25/17 doxycycline hyclate 100 mg capsule See Label Instructions PO BID #28 06/11/17 cap Diazepam [Valium] 5 mg PO 4X/DAY PRN PRN #30 tab 07/10/17 Diazepam [Valium] 5 mg PO 4X/DAY PRN PRN #30 tab 07/24/17 Oxycodone HCl/Acetaminophen 1 - 2 tab PO 4X/DAY PRN PRN 7 Days 07/24/17 [Percocet 5-325] #50 tab Maternal Family History: Family History (Last Updated 02/28/17 @ 15:22 by Fernanda Polk) Unknown No problems noted. Family History: Diabetes, Heart Disease Paternal Family History: Family History (Last Updated 02/28/17 @ 15:22 by Fernanda Polk) Unknown No problems noted. Family History: No pertinent history Smoking Status: Former smoker Physical Exam Vital Signs Temp Pulse Resp BP 98.7 F 93 16 122/71 H 08/10/17 13:08 08/10/17 13:08 08/10/17 13:08 08/10/17 13:08 General: Alert, Oriented x3, Cooperative, No apparent distress HEENT: Atraumatic, PERRLA, TM's Clear Lungs: Clear to auscultation, Normal air movement Cardiovascular: Regular rate, Regular Rhythm, Normal S1, Normal S2 Psych/Mental Status: Normal Affect, Appropriate, Alert and oriented to time, place, person, mood and affect Assessment/Plan The patient appears to be tolerating hyperbaric oxygen therapy well, which will be continued as per the patient's medical plan.
[2017-08-11 10:39] VITALS: BP 106/79; BP 112/80; PULSE 78; PULSE 93; RESP 16; TEMP 36.3; TEMP 36.6
--- NOTE | 2017-08-11 13:22 | PCM.HBO.PN ---
History of Present Illness Date of Service: 08/11/17 Presenting Chief Complaint: Compromised TRAM flap right breast reconstruction with nonhealing radiation wound. SHARON BARRAGAN is a 47 year old currently undergoing hyperbaric oxygen therapy for compromised TRAM flap right breast reconstruction with nonhealing radiation wound. Progress: The patient appears to be tolerating hyperbaric oxygen therapy well. Today's session represents the 27th session of hyperbaric oxygen therapy. Tolerance of hyperbaric oxygen therapy: Hyperbaric oxygen therapy was administered as per the facility's protocol. The patient tolerated hyperbaric oxygen therapy well, without complaints or complications. Upon emergence from the hyperbaric chamber, the patient's vital signs remained stable. The patient was discharged in good condition. 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 Allergies/Adverse Reactions: Allergies POULTRY Allergy (Uncoded 05/19/17 09:45) Anaphylaxis Home Medications: Ambulatory Orders Medication Instructions Recorded Sertraline HCl [Zoloft] 150 mg PO DAILY 01/11/16 Trazodone HCl 50 mg PO QHS 04/20/16 Amlodipine [Norvasc] 5 mg PO DAILY PRN 04/25/17 Calcium Carbonate/Vitamin D3 1 ea PO DAILY PRN 04/25/17 [Calcium 500-Vit D3 600 Tablet] Meloxicam [Mobic] 15 mg PO DAILY PRN 04/25/17 proMETHazine tablet [Phenergan 25 mg PO 4X/DAY PRN PRN #30 tab 05/10/17 tablet] Docusate Sodium [Colace] 100 mg PO BID 05/19/17 Vancomycin 1,000 mg IV Q12H #76 bag 05/24/17 Amlodipine [Norvasc] 5 mg PO DAILY tablet 05/25/17 Calcium Carb/Vitamin D [Os-Skinny 1 tablet PO DAILY@0800 tablet 05/25/17 500MG + D] Docusate Sodium [Colace] 100 mg PO BID capsule 05/25/17 Lactobacillus Acidophilus 1 tablet PO BID tablet 05/25/17 [Acidophilus] Meloxicam [Mobic] 15 mg PO DAILY PRN tablet 05/25/17 Sertraline HCl [Zoloft] 150 mg PO DAILY@0600 tablet 05/25/17 proMETHazine tablet [Phenergan 25 mg PO Q4H PRN PRN tablet 05/25/17 tablet] traZODone [Desyrel] 50 mg PO QHS tablet 05/25/17 doxycycline hyclate 100 mg capsule See Label Instructions PO BID #28 06/11/17 cap Diazepam [Valium] 5 mg PO 4X/DAY PRN PRN #30 tab 07/10/17 Diazepam [Valium] 5 mg PO 4X/DAY PRN PRN #30 tab 07/24/17 Oxycodone HCl/Acetaminophen 1 - 2 tab PO 4X/DAY PRN PRN 7 Days 07/24/17 [Percocet 5-325] #50 tab Maternal Family History: Family History (Last Updated 02/28/17 @ 15:22 by Fernanda Polk) Unknown No problems noted. Family History: Diabetes, Heart Disease Paternal Family History: Family History (Last Updated 02/28/17 @ 15:22 by Fernanda Polk) Unknown No problems noted. Family History: No pertinent history Smoking Status: Former smoker Physical Exam Vital Signs Temp Pulse Resp BP 98 F 93 16 106/79 08/11/17 10:39 08/11/17 10:39 08/11/17 10:39 08/11/17 10:39 Assessment/Plan The patient appears to be tolerating hyperbaric oxygen therapy well, which will be continued as per the patient's medical plan.
[2017-08-15 14:40] VITALS: BP 119/70; PULSE 102; RESP 20; TEMP 36.6
--- NOTE | 2017-08-15 20:30 | PCM.WC.PN ---
Type of Wound Date of Service: 08/15/17 Chief Complaint: Compromised TRAM flap right breast reconstruction with nonhealing radiation wound. History of Wound: Surgery 05/23/17 - Surgical preparation right breast reconstruction with excisional debridement compromised TRAM flap (256 cm2). Surgery 05/05/17 - Surgical preparation right breast TRAM flap reconstruction with incision and drainage and evacuation hematoma. Surgery 05/02/17 - 1. Delayed right breast reconstruction with unipedicle contralateral TRAM flap. 2. Abdominal wall reconstruction with placement of Strattice acellular dermal matrix graft (100 cm2). 3. Revision radiation scar contour deformity right breast with multiple W-plasties (40 cm2). Wound care - Silver. Operative culture - MRSE, and Staphylococcus warneri, and Acinetobacter lwoffi. She has been on IV Vancomycin and PO Levaquin and has completed them. Prealbumin was 19.4 on 05/19/17. While in the hospital she had slightly elevated Alkaline Phosphatase at 141 that decreased to 131. CT Abdomen showed no pathology in the liver. She also has a CXR in preparation for HBO treatments. It showed no infiltrate. There was some atelectasis. Will monitored the LFT's from the IV antibiotics. The alkaline phosphatase remained elevated. We fractionated it which was normal. She also saw her Oncologist who reassured her. No need for further evaluation at this time. Today she denies fever. Her appetite is ok. She has started HBO treatments for compromised TRAM flap and for soft tissue radionecrosis. During HBO, she states she has some ear pain. Progress of Wound: Improved. - Physical Exam Vital Signs Temp Pulse Resp BP 97.8 F 102 H 20 H 119/70 08/15/17 14:40 08/15/17 14:40 08/15/17 14:40 08/15/17 14:40 HEENT: TM's Clear - No bleeding noted. A lot of wax in the ear. Wound Measurements and Assessment WC - Nurse 1 - General Ulcer Measurement Start: 07/18/17 14:46 Freq: Status: Active Protocol: Activity Type Activity Date Activity User E-Sign Co-Sign Detail Recorded Client Recorded Date Recorded By Document 08/15/17 14:40 DL [id number] 08/15/17 14:50 DL 08/15/17 14:40 Wound Center Nurse 1 [Ulcer Assessment] #1 Right breast Tram flap failure -Current Size (cm) - Length 7.4 -Current Size (cm) - Width 8.4 -Current Size (cm) - Depth 0.2 -Total Square Cm 62.16 -Photo Taken No -Exudate Amt Small (1-33%) -Exudate Type Serosanguineous -Wound Margin Distinct, Outline Attached -Granulation Amt Medium (34-66%) -Granulation Quality [place] -Necrosis Amt Medium (34-66%) -Necrotic Tissue Type Adherent Slough -Structure Exposed N/A -Texture (Meghana-wound Skin Appearance) Localized Edema Scarring -Moisture (Meghana-wound Skin Appearance No Abnormality ) -Color (Meghana-wound Skin Appearance) No Abnormality -Temperature (Meghana-wound Skin No Abnormality Appearance) (Pt Warm) -Ulcer Cleansing Wound Cleanser -Foul Odor after Cleansing No -Anesthetic Used 4% Lidocaine Solution - Nurse 2 - General Ulcer CM Notes Start: 07/18/17 14:46 Freq: Status: Active Protocol: Activity Type Activity Date Activity User E-Sign Co-Sign Detail Recorded Client Recorded Date Recorded By Document 08/15/17 15:28 [id number] 08/15/17 15:29 08/15/17 15:28 Wound Center Nurse 2 [Procedure/Treatment] -Time 15:28 -Correct Patient Yes -Correct Side, Site, Position Yes -Correct Procedure Yes -Procedure Performed Yes -Type of Procedure Debridement -Clinical Debridement Subcutaneous -Post Debridement Size (cm) - Length 7.5 -Post Debridement Size (cm) - Width 8.5 -Post Debridement Size (cm) - Depth 0.2 -Total Square Cm 63.75 -Wound/Ulcer Outcome Not Healed -Ulcer Cleansing Rinsed/ Irrigated with Saline -Foul Odor after Cleansing No -Bioengineered Tissue No -Bleeding Controlled with Pressure -Treatment Response Procedure Tolerated Well [See Physician Procedure note for Specifics] Pain Scale: 0-10 Numeric [Pain] -Is Patient Pain Free? Yes Debridement Note Post-Debridement Measurements/Treatment - Nurse 2 - General Ulcer CM Notes Start: 07/18/17 14:46 Freq: Status: Active Protocol: Activity Type Activity Date Activity User E-Sign Co-Sign Detail Recorded Client Recorded Date Recorded By Document 07/18/17 15:06 [id number] 07/18/17 15:09 Document 07/31/17 12:54 [id number] 07/31/17 12:55 Document 08/15/17 15:28 [id number] 08/15/17 15:29 07/18/17 07/31/17 08/15/17 15:06 12:54 15:28 Wound Center Nurse 2 #1 Right breast Tram flap failure -Time 15:08 12:54 15:28 -Correct Patient Yes Yes Yes -Correct Side, Site, Position Yes Yes Yes -Correct Procedure Yes Yes Yes -Procedure Performed Yes Yes Yes -Type of Procedure Debridement Debridement Debridement -Clinical Debridement Subcutaneous Subcutaneous Subcutaneous -Post Debridement Size (cm) - Length 8.8 8 7.5 -Post Debridement Size (cm) - Width 13.1 9.3 8.5 -Post Debridement Size (cm) - Depth 1.0 0.1 0.2 -Total Square Cm 115.28 74.4 63.75 -Wound/Ulcer Outcome Not Healed Not Healed Not Healed -Ulcer Cleansing Rinsed/ Rinsed/ Rinsed/ Irrigated with Irrigated with Irrigated with Saline Saline Saline -Foul Odor after Cleansing No No No -Bioengineered Tissue No No No -Bleeding Controlled with Pressure Pressure Pressure -Treatment Response Procedure Procedure Procedure Tolerated Well Tolerated Well Tolerated Well Pain Scale: 0-10 Numeric Is Patient Pain Free? Yes Yes Yes Wound debrided: #1 Right breast. Laterality: Right Wound Grade/Stage: 3. Type of Debridement: Excisional debridement Anesthesia Used: 4% Lidocaine Solution Depth: Down to and including healthy tissue, in the subcutaneous layer Percentage of wound debrided: 100 Instrument Used: 7mm curette Tissue Removed: subcutaneous tissue. Severity: Fat Layer Exposed Amount of bleeding with debridement: Mild Bleeding Controlled with: Pressure Patient tolerated procedure well Assessment/Plan Assessment: 1. Compromised TRAM flap wound right breast reconstruction. 2. Right breast cancer. 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 5. Disproportion reconstructed breasts. 6. Late effect radiation right breast. 7. Estrogen receptor status negative. 8. Former smoker. 9. s/p delayed right breast reconstruction with unipedicle contralateral TRAM flap and abdominal wall reconstruction with placement of Strattice acellular dermal matrix graft (100 cm2) and revision radiation scar contour deformity right breast with multiple W-plasties (40 cm2). 10. s/p surgical preparation right breast TRAM flap reconstruction with incision and drainage and evacuation hematoma. 11. s/p surgical preparation right breast reconstruction with excisional debridement compromised TRAM flap (256 cm2). Plan: Radiation wound is improving. Continue Silver dressing changes daily. The remaining flap is soft and viable. The Vancomycin has been completed for the MRSE and Staphylococcus warneri. For the Acinetobacter, she was placed on Levaquin and has finished them. We kept an eye on the weekly labs that is normally done for IV antibiotics. The alkaline phosphatase remained elevated. The fractionation of the alkaline phosphatase was normal. She saw her Oncologist and reassured her that no further evaluation is necessary at this time. She has started HBO treatments because of her radiation soft tissue radionecrosis damage to her right breast reconstruction. It will also help her compromised flap as well. HBO will also be helpful in preparation for further flap reconstruction to complete her right breast reconstruction. She is tolerating the HBO treatments. Renewed her Percocet for pain (40 tabs) and her Valium for spasm (30 tabs). She states she has some residual ear pain. If persistent, will need to see ENT for possible ear tube placement. She is on HBO treatment #27. I want her to get to 40 if possible before proceeding with further breast reconstruction with a latissimus flap. Followup 2 weeks. It was noted there was a small seroma in the abdominal wall. It is less when the binder is worn. Continue wearing the abdominal binder.
--- NOTE | 2017-08-17 14:10 | PCM.HBO.PN ---
History of Present Illness Date of Service: 08/17/17 Presenting Chief Complaint: Compromised TRAM flap right breast reconstruction with nonhealing radiation wound. SHARON BARRAGAN is a 47 year old currently undergoing hyperbaric oxygen therapy for compromised TRAM flap right breast reconstruction with nonhealing radiation wound. Progress: The patient appears to be tolerating hyperbaric oxygen therapy well. Tolerance of hyperbaric oxygen therapy: Hyperbaric oxygen therapy was administered as per the facility's protocol. The patient tolerated hyperbaric oxygen therapy well, without complaints or complications. Upon emergence from the hyperbaric chamber, the patient's vital signs remained stable. The patient was discharged in good condition. 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 Allergies/Adverse Reactions: Allergies POULTRY Allergy (Uncoded 05/19/17 09:45) Anaphylaxis Home Medications: Ambulatory Orders Medication Instructions Recorded Sertraline HCl [Zoloft] 150 mg PO DAILY 01/11/16 Trazodone HCl 50 mg PO QHS 04/20/16 Amlodipine [Norvasc] 5 mg PO DAILY PRN 04/25/17 Calcium Carbonate/Vitamin D3 1 ea PO DAILY PRN 04/25/17 [Calcium 500-Vit D3 600 Tablet] Meloxicam [Mobic] 15 mg PO DAILY PRN 04/25/17 proMETHazine tablet [Phenergan 25 mg PO 4X/DAY PRN PRN #30 tab 05/10/17 tablet] Docusate Sodium [Colace] 100 mg PO BID 05/19/17 Vancomycin 1,000 mg IV Q12H #76 bag 05/24/17 Amlodipine [Norvasc] 5 mg PO DAILY tablet 05/25/17 Calcium Carb/Vitamin D [Os-Skinny 1 tablet PO DAILY@0800 tablet 05/25/17 500MG + D] Docusate Sodium [Colace] 100 mg PO BID capsule 03/08/18 Lactobacillus Acidophilus 1 tablet PO BID tablet 05/25/17 [Acidophilus] Meloxicam [Mobic] 15 mg PO DAILY PRN tablet 05/25/17 Sertraline HCl [Zoloft] 150 mg PO DAILY@0600 tablet 05/25/17 proMETHazine tablet [Phenergan 25 mg PO Q4H PRN PRN tablet 05/25/17 tablet] traZODone [Desyrel] 50 mg PO QHS tablet 05/25/17 doxycycline hyclate 100 mg capsule See Label Instructions PO BID #28 06/11/17 cap Diazepam [Valium] 5 mg PO 4X/DAY PRN PRN #30 tab 07/10/17 Diazepam [Valium] 5 mg PO 4X/DAY PRN PRN #30 tab 07/24/17 Oxycodone HCl/Acetaminophen 1 - 2 tab PO 4X/DAY PRN PRN 7 Days 07/24/17 [Percocet 5-325] #50 tab Maternal Family History: Family History (Last Updated 02/28/17 @ 15:22 by Fernanda Polk) Unknown No problems noted. Family History: Diabetes, Heart Disease Paternal Family History: Family History (Last Updated 02/28/17 @ 15:22 by Fernanda Polk) Unknown No problems noted. Family History: No pertinent history Smoking Status: Former smoker Physical Exam Vital Signs Temp Pulse Resp BP 97.8 F 102 H 20 H 119/70 08/15/17 14:40 08/15/17 14:40 08/15/17 14:40 08/15/17 14:40 General: Alert, Oriented x3, Cooperative, No apparent distress HEENT: Atraumatic, PERRLA, TM's Clear, - - moderate amt of flaky cerumen present B/L, however, TMs visualized w/small amount of clear fluid Lungs: Clear to auscultation, Normal air movement Cardiovascular: Regular rate, Regular Rhythm Psych/Mental Status: Normal Affect, Alert and oriented to time, place, person, mood and affect Assessment/Plan The patient appears to be tolerating hyperbaric oxygen therapy well, which will be continued as per the patient's medical plan.
[2017-08-17 14:28] VITALS: BP 108/76; BP 116/76; PULSE 73; PULSE 91; RESP 16; TEMP 36.6; TEMP 36.9
== END 2017-08-17 23:59 ==
LOC: WC 13:00
PROVIDERS: Family Provider Internal Medicine; PCP Internal Medicine; Visit Provider Surgery
DX: L59.9 Disorder of the skin and subcutaneous tissue related to radiation, unspecified (principal); T86.828 Other complications of skin graft (allograft) (autograft); Y83.8 Other surgical procedures as the cause of abnormal reaction of the patient, or of later complication, without mention of misadventure at the time of the procedure; Z85.3 Personal history of malignant neoplasm of breast; Z87.891 Personal history of nicotine dependence
CPT/HCPCS: 11042; 11045; 84075; 84080; 99183; G0277

== ENCOUNTER → 2017-08-22 14:03 | Outpatient (CLI) | payer MEDICAID, SELFPAY ==
--- NOTE | 2017-08-22 14:03 | DT_ITS ---
This patient was seen during an EMR downtime August 21, 2017 - August 28, 2017. This patient may have a combination of paper and electronic documentation or all paper documentation. All documentation is viewable within the e-chart portion of [facility] for each patient visit.
--- NOTE | 2017-08-22 14:30 | US_ITS ---
PROCEDURE: ULTRASOUND GUIDED ASPIRATION OF FLUID COLLECTION IN THE ANTERIOR ABDOMINAL WALL CLINICAL HISTORY: Female, 47 years old. ASCITES CONSENT: The risks, benefits and alternatives to the procedure were explained to the patient, and the patient agreed to the procedure and signed the consent. 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 PROCEDURE/TECHNIQUE: The risks, benefits, and alternatives to the procedure were explained to patient, and the patient agreed to the procedure and signed a consent form for the procedure. TECHNIQUE: Under the ultrasound guidance using sterile technique and after infiltration of the skin and subcutaneous soft tissues with 10 mL of lidocaine 1% a 4 Swedish needle catheter is introduced in the fluid collection. 10 mL of fluid were removed sample sent to lab for evaluation. The patient tolerated the procedure there was no immediate complication. FINDINGS: 10 mL of fluid were removed sample sent to lab for evaluation. The patient tolerated the procedure there was no immediate complication. US/Cyst Puncture IMPRESSION: Successful ultrasound-guided aspiration of fluid collection in the anterior abdominal wall. Electronically Signed: Nikolai Alvarado MD at 13:50 EDT Tel , Service support ,
== END ==
PROVIDERS: Family Provider Internal Medicine; PCP Internal Medicine; Visit Provider Surgery
DX: T86.828 Other complications of skin graft (allograft) (autograft) (principal); L76.34 Postprocedural seroma of skin and subcutaneous tissue following other procedure; C50.911 Malignant neoplasm of unspecified site of right female breast; F40.298 Other specified phobia; Z90.13 Acquired absence of bilateral breasts and nipples; N65.1 Disproportion of reconstructed breast; T66.XXXS Radiation sickness, unspecified, sequela; N65.0 Deformity of reconstructed breast; L98.499 Non-pressure chronic ulcer of skin of other sites with unspecified severity
CPT/HCPCS: 10160; 76942; 87070; 87075; 87205

== ENCOUNTER → 2017-08-22 14:30 | Outpatient (CLI) | payer MEDICAID, SELFPAY ==
--- NOTE | 2017-08-22 14:30 | DT_ITS ---
This patient was seen during an EMR downtime August 21, 2017 - August 28, 2017. This patient may have a combination of paper and electronic documentation or all paper documentation. All documentation is viewable within the e-chart portion of [facility] for each patient visit.
== END ==
PROVIDERS: Family Provider Internal Medicine; PCP Internal Medicine; Visit Provider Surgery
DX: L76.34 Postprocedural seroma of skin and subcutaneous tissue following other procedure (principal); C50.911 Malignant neoplasm of unspecified site of right female breast; F40.298 Other specified phobia; Z90.13 Acquired absence of bilateral breasts and nipples; N65.1 Disproportion of reconstructed breast; T66.XXXA Radiation sickness, unspecified, initial encounter; T86.828 Other complications of skin graft (allograft) (autograft); N65.0 Deformity of reconstructed breast; L98.499 Non-pressure chronic ulcer of skin of other sites with unspecified severity

== ENCOUNTER 2017-09-07 13:00 | Outpatient (RCR) | payer MEDICAID, SELFPAY ==
[2017-08-18 00:46] VITALS: BP 108/76; PULSE 73; RESP 16; TEMP 36.6
[2017-08-18 13:09] VITALS: BP 102/67; BP 115/60; PULSE 81; PULSE 84; RESP 16; TEMP 36.6; TEMP 36.9
--- NOTE | 2017-08-18 17:52 | HBO.PN.PCM_ITS ---
History of Present Illness Date of Service: 08/18/17 Presenting Chief Complaint: Compromised TRAM flap right breast reconstruction with nonhealing radiation wound. SHARON BARRAGAN is a 47 year old currently undergoing hyperbaric oxygen therapy for compromised TRAM flap and soft tissue radiation necrosis s/p radiation for breast cancer. Progress: Hyperbaric oxygen therapy was administered today, and was well tolerated by the patient. Today represents the 29th such hyperbaric oxygen treatment. Tolerance of hyperbaric oxygen therapy: Hyperbaric oxygen treatment was administered as per the facility's protocol. The patient tolerated hyperbaric oxygen therapy well, without complications. The hyperbaric oxygen treatment was completed in its entirety. Upon emergence from the hyperbaric chamber, patient' s vital signs were noted to be stable and they were discharged in good condition. 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 Allergies/Adverse Reactions: Allergies POULTRY Allergy (Uncoded 05/19/17 09:45) Anaphylaxis Home Medications: Ambulatory Orders Medication Instructions Recorded Sertraline HCl [Zoloft] 150 mg PO DAILY 01/11/16 Trazodone HCl 50 mg PO QHS 04/20/16 Amlodipine [Norvasc] 5 mg PO DAILY PRN 04/25/17 Calcium Carbonate/Vitamin D3 1 ea PO DAILY PRN 04/25/17 [Calcium 500-Vit D3 600 Tablet] Meloxicam [Mobic] 15 mg PO DAILY PRN 04/25/17 proMETHazine tablet [Phenergan 25 mg PO 4X/DAY PRN PRN #30 tab 05/10/17 tablet] Docusate Sodium [Colace] 100 mg PO BID 05/19/17 Vancomycin 1,000 mg IV Q12H #76 bag 05/24/17 Amlodipine [Norvasc] 5 mg PO DAILY tablet 05/25/17 Calcium Carb/Vitamin D [Os-Skinny 1 tablet PO DAILY@0800 tablet 05/25/17 500MG + D] Docusate Sodium [Colace] 100 mg PO BID capsule 05/25/17 Lactobacillus Acidophilus 1 tablet PO BID tablet 05/25/17 [Acidophilus] Meloxicam [Mobic] 15 mg PO DAILY PRN tablet 05/25/17 Sertraline HCl [Zoloft] 150 mg PO DAILY@0600 tablet 05/25/17 proMETHazine tablet [Phenergan 25 mg PO Q4H PRN PRN tablet 05/25/17 tablet] traZODone [Desyrel] 50 mg PO QHS tablet 05/25/17 doxycycline hyclate 100 mg capsule See Label Instructions PO BID #28 06/11/17 cap Diazepam [Valium] 5 mg PO 4X/DAY PRN PRN #30 tab 07/10/17 Diazepam [Valium] 5 mg PO 4X/DAY PRN PRN #30 tab 07/24/17 Oxycodone HCl/Acetaminophen 1 - 2 tab PO 4X/DAY PRN PRN 7 Days 07/24/17 [Percocet 5-325] #50 tab Maternal Family History: Family History (Last Updated 02/28/17 @ 15:22 by Fernanda Polk) Unknown No problems noted. Family History: Diabetes, Heart Disease Paternal Family History: Family History (Last Updated 02/28/17 @ 15:22 by Fernanda Polk) Unknown No problems noted. 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
--- NOTE | 2017-08-28 16:11 | HBO.PN.PCM_ITS ---
History of Present Illness Date of Service: 08/28/17 Presenting Chief Complaint: Compromised TRAM flap right breast reconstruction with nonhealing radiation wound. SHARON BARRAGAN is a 47 year old currently undergoing hyperbaric oxygen therapy for compromised TRAM flap and soft tissue radiation necrosis s/p radiation for breast cancer. Progress: Hyperbaric oxygen therapy was administered today, and was well tolerated by the patient. Today represents the 32nd such hyperbaric oxygen treatment. Tolerance of hyperbaric oxygen therapy: Hyperbaric oxygen treatment was administered as per the facility's protocol. The patient tolerated hyperbaric oxygen therapy well, without complications. The hyperbaric oxygen treatment was completed in its entirety. Upon emergence from the hyperbaric chamber, patient' s vital signs were noted to be stable. The patient was discharged in good condition. 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 Allergies/Adverse Reactions: Allergies POULTRY Allergy (Uncoded 05/19/17 09:45) Anaphylaxis Home Medications: Ambulatory Orders Medication Instructions Recorded Sertraline HCl [Zoloft] 150 mg PO DAILY 01/11/16 Trazodone HCl 50 mg PO QHS 04/20/16 Amlodipine [Norvasc] 5 mg PO DAILY PRN 04/25/17 Calcium Carbonate/Vitamin D3 1 ea PO DAILY PRN 04/25/17 [Calcium 500-Vit D3 600 Tablet] Meloxicam [Mobic] 15 mg PO DAILY PRN 04/25/17 proMETHazine tablet [Phenergan 25 mg PO 4X/DAY PRN PRN #30 tab 05/10/17 tablet] Docusate Sodium [Colace] 100 mg PO BID 05/19/17 Vancomycin 1,000 mg IV Q12H #76 bag 05/24/17 Amlodipine [Norvasc] 5 mg PO DAILY tablet 05/25/17 Calcium Carb/Vitamin D [Os-Skinny 1 tablet PO DAILY@0800 tablet 05/25/17 500MG + D] Docusate Sodium [Colace] 100 mg PO BID capsule 05/25/17 Lactobacillus Acidophilus 1 tablet PO BID tablet 05/25/17 [Acidophilus] Meloxicam [Mobic] 15 mg PO DAILY PRN tablet 05/25/17 Sertraline HCl [Zoloft] 150 mg PO DAILY@0600 tablet 05/25/17 proMETHazine tablet [Phenergan 25 mg PO Q4H PRN PRN tablet 05/25/17 tablet] traZODone [Desyrel] 50 mg PO QHS tablet 05/25/17 doxycycline hyclate 100 mg capsule See Label Instructions PO BID #28 06/11/17 cap Diazepam [Valium] 5 mg PO 4X/DAY PRN PRN #30 tab 07/10/17 Diazepam [Valium] 5 mg PO 4X/DAY PRN PRN #30 tab 07/24/17 Oxycodone HCl/Acetaminophen 1 - 2 tab PO 4X/DAY PRN PRN 7 Days 07/24/17 [Percocet 5-325] #50 tab Maternal Family History: Family History (Last Updated 02/28/17 @ 15:22 by Fernanda Polk) Unknown No problems noted. Family History: Diabetes, Heart Disease Paternal Family History: Family History (Last Updated 02/28/17 @ 15:22 by Fernanda Polk) Unknown No problems noted. Family History: No pertinent history Smoking Status: Former smoker Physical Exam Vital Signs Temp Pulse Resp BP 98.4 F 84 16 115/60 08/18/17 13:09 08/18/17 13:09 08/18/17 13:09 08/18/17 13:09 General: Alert, Oriented x3, Cooperative, No apparent distress, Well developed, Well nourished HEENT: Atraumatic, PERRLA, EOMI, Normocephalic Lungs: Normal air movement Psych/Mental Status: Normal Affect, Appropriate, Alert and oriented to time, place, person, mood and affect Assessment/Plan The patient appears to be tolerating hyperbaric oxygen therapy well, which will be continued as per the patient's medical plan.
[2017-08-30 13:21] VITALS: BP 120/70; BP 120/72; PULSE 76; PULSE 86; RESP 16; TEMP 36.3; TEMP 36.8
[2017-08-31 13:29] VITALS: BP 100/68; BP 115/75; PULSE 77; PULSE 85; RESP 16; TEMP 36.3; TEMP 36.6
--- NOTE | 2017-08-31 15:07 | HBO.PN.PCM_ITS ---
History of Present Illness Date of Service: 08/31/17 Presenting Chief Complaint: Compromised TRAM flap right breast reconstruction with nonhealing radiation wound. SHARON BARRAGAN is a 47 year old currently undergoing hyperbaric oxygen therapy for compromised TRAM flap and soft tissue radiation necrosis s/p radiation for breast cancer. Progress: Hyperbaric oxygen therapy was administered today, and was well tolerated by the patient. Tolerance of hyperbaric oxygen therapy: Hyperbaric oxygen treatment was administered as per the facility's protocol. The patient tolerated hyperbaric oxygen therapy well, without complications. The hyperbaric oxygen treatment was completed in its entirety. Upon emergence from the hyperbaric chamber, patient' s vital signs were noted to be stable. The patient was discharged in good condition. 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 Allergies/Adverse Reactions: Allergies POULTRY Allergy (Uncoded 05/19/17 09:45) Anaphylaxis Home Medications: Ambulatory Orders Medication Instructions Recorded Sertraline HCl [Zoloft] 150 mg PO DAILY 01/11/16 Trazodone HCl 50 mg PO QHS 04/20/16 Amlodipine [Norvasc] 5 mg PO DAILY PRN 04/25/17 Calcium Carbonate/Vitamin D3 1 ea PO DAILY PRN 04/25/17 [Calcium 500-Vit D3 600 Tablet] Meloxicam [Mobic] 15 mg PO DAILY PRN 04/25/17 proMETHazine tablet [Phenergan 25 mg PO 4X/DAY PRN PRN #30 tab 05/10/17 tablet] Docusate Sodium [Colace] 100 mg PO BID 05/19/17 Vancomycin 1,000 mg IV Q12H #76 bag 05/24/17 Amlodipine [Norvasc] 5 mg PO DAILY tablet 05/25/17 Calcium Carb/Vitamin D [Os-Skinny 1 tablet PO DAILY@0800 tablet 05/25/17 500MG + D] Docusate Sodium [Colace] 100 mg PO BID capsule 05/25/17 Lactobacillus Acidophilus 1 tablet PO BID tablet 05/25/17 [Acidophilus] Meloxicam [Mobic] 15 mg PO DAILY PRN tablet 05/25/17 Sertraline HCl [Zoloft] 150 mg PO DAILY@0600 tablet 05/25/17 proMETHazine tablet [Phenergan 25 mg PO Q4H PRN PRN tablet 05/25/17 tablet] traZODone [Desyrel] 50 mg PO QHS tablet 05/25/17 doxycycline hyclate 100 mg capsule See Label Instructions PO BID #28 06/11/17 cap Diazepam [Valium] 5 mg PO 4X/DAY PRN PRN #30 tab 07/10/17 Diazepam [Valium] 5 mg PO 4X/DAY PRN PRN #30 tab 07/24/17 Oxycodone HCl/Acetaminophen 1 - 2 tab PO 4X/DAY PRN PRN 7 Days 07/24/17 [Percocet 5-325] #50 tab Maternal Family History: Family History (Last Updated 02/28/17 @ 15:22 by Fernanda Polk) Unknown No problems noted. Family History: Diabetes, Heart Disease Paternal Family History: Family History (Last Updated 02/28/17 @ 15:22 by Fernanda Polk) Unknown No problems noted. Family History: No pertinent history Smoking Status: Former smoker Physical Exam Vital Signs Temp Pulse Resp BP 97.8 F 85 16 115/75 08/31/17 13:29 08/31/17 13:29 08/31/17 13:29 08/31/17 13:29 General: Alert, Oriented x3, Cooperative, No apparent distress HEENT: Atraumatic, PERRLA, TM's Clear Lungs: Clear to auscultation, Normal air movement Cardiovascular: Regular rate, Regular Rhythm, Normal S1, Normal S2 Psych/Mental Status: Normal Affect, Appropriate Assessment/Plan The patient appears to be tolerating hyperbaric oxygen therapy well, which will be continued as per the patient's medical plan.
[2017-09-01 12:45] VITALS: BP 104/71; BP 123/89; PULSE 71; PULSE 80; RESP 16; TEMP 36.7
--- NOTE | 2017-09-01 21:19 | HBO.PN.PCM_ITS ---
History of Present Illness Date of Service: 09/01/17 Presenting Chief Complaint: Compromised TRAM flap right breast reconstruction with nonhealing radiation wound. SHARON BARRAGAN is a 47 year old currently undergoing hyperbaric oxygen therapy for compromised TRAM flap and soft tissue radiation necrosis s/p radiation for breast cancer. Progress: Hyperbaric oxygen therapy was administered today, and was well tolerated by the patient. Tolerance of hyperbaric oxygen therapy: Hyperbaric oxygen treatment was administered as per the facility's protocol. The patient tolerated hyperbaric oxygen therapy well, without complications. The hyperbaric oxygen treatment was completed in its entirety. Upon emergence from the hyperbaric chamber, patient' s vital signs were noted to be stable. The patient was discharged in good condition. 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 Allergies/Adverse Reactions: Allergies POULTRY Allergy (Uncoded 05/19/17 09:45) Anaphylaxis Home Medications: Ambulatory Orders Medication Instructions Recorded Sertraline HCl [Zoloft] 150 mg PO DAILY 01/11/16 Trazodone HCl 50 mg PO QHS 04/20/16 Amlodipine [Norvasc] 5 mg PO DAILY PRN 04/25/17 Calcium Carbonate/Vitamin D3 1 ea PO DAILY PRN 04/25/17 [Calcium 500-Vit D3 600 Tablet] Meloxicam [Mobic] 15 mg PO DAILY PRN 04/25/17 proMETHazine tablet [Phenergan 25 mg PO 4X/DAY PRN PRN #30 tab 05/10/17 tablet] Docusate Sodium [Colace] 100 mg PO BID 05/19/17 Vancomycin 1,000 mg IV Q12H #76 bag 05/24/17 Amlodipine [Norvasc] 5 mg PO DAILY tablet 05/25/17 Calcium Carb/Vitamin D [Os-Skinny 1 tablet PO DAILY@0800 tablet 05/25/17 500MG + D] Docusate Sodium [Colace] 100 mg PO BID capsule 05/25/17 Lactobacillus Acidophilus 1 tablet PO BID tablet 05/25/17 [Acidophilus] Meloxicam [Mobic] 15 mg PO DAILY PRN tablet 05/25/17 Sertraline HCl [Zoloft] 150 mg PO DAILY@0600 tablet 05/25/17 proMETHazine tablet [Phenergan 25 mg PO Q4H PRN PRN tablet 05/25/17 tablet] traZODone [Desyrel] 50 mg PO QHS tablet 05/25/17 doxycycline hyclate 100 mg capsule See Label Instructions PO BID #28 06/11/17 cap Diazepam [Valium] 5 mg PO 4X/DAY PRN PRN #30 tab 07/10/17 Diazepam [Valium] 5 mg PO 4X/DAY PRN PRN #30 tab 07/24/17 Oxycodone HCl/Acetaminophen 1 - 2 tab PO 4X/DAY PRN PRN 7 Days 07/24/17 [Percocet 5-325] #50 tab Maternal Family History: Family History (Last Updated 02/28/17 @ 15:22 by Fernanda Polk) Unknown No problems noted. Family History: Diabetes, Heart Disease Paternal Family History: Family History (Last Updated 02/28/17 @ 15:22 by Fernanda Polk) Unknown No problems noted. Family History: No pertinent history Smoking Status: Former smoker Physical Exam Vital Signs Temp Pulse Resp BP 98.1 F 80 16 104/71 09/01/17 12:45 09/01/17 12:45 09/01/17 12:45 09/01/17 12:45 General: Alert, Oriented x3, Cooperative, No apparent distress Psych/Mental Status: Normal Affect, Appropriate Assessment/Plan Active Problems (Last Updated 08/18/17 @ 17:51 by Eveline Chen DO) Deformity of reconstructed breast (Acute) radiation scar contour deformity right breast reconstruction Radiation skin ulcer of chest (Chronic) radiation skin ulcer right chest wall and breast reconstruction Partial loss of skin graft (Acute) Compromised TRAM flap right breast reconstruction with partial loss 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
[2017-09-06 13:00] VITALS: BP 126/73; PULSE 92; RESP 16; TEMP 36.8
[2017-09-07 13:19] VITALS: BP 105/71; BP 129/68; PULSE 76; PULSE 79; RESP 16; TEMP 36.4; TEMP 36.8
--- NOTE | 2017-09-07 14:18 | HBO.PN.PCM_ITS ---
History of Present Illness Date of Service: 09/07/17 Presenting Chief Complaint: Compromised TRAM flap right breast reconstruction with nonhealing radiation wound. SHARON BARRAGAN is a 47 year old currently undergoing hyperbaric oxygen therapy for compromised TRAM flap and soft tissue radiation necrosis s/p radiation for breast cancer. Progress: Hyperbaric oxygen therapy was administered today, and was well tolerated by the patient. Tolerance of hyperbaric oxygen therapy: Hyperbaric oxygen treatment was administered as per the facility's protocol. The patient tolerated hyperbaric oxygen therapy well, without complications. The hyperbaric oxygen treatment was completed in its entirety. Upon emergence from the hyperbaric chamber, patient' s vital signs were noted to be stable. The patient was discharged in good condition. 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 Allergies/Adverse Reactions: Allergies POULTRY Allergy (Uncoded 05/19/17 09:45) Anaphylaxis Home Medications: Ambulatory Orders Medication Instructions Recorded Sertraline HCl [Zoloft] 150 mg PO DAILY 01/11/16 Trazodone HCl 50 mg PO QHS 04/20/16 Amlodipine [Norvasc] 5 mg PO DAILY PRN 04/25/17 Calcium Carbonate/Vitamin D3 1 ea PO DAILY PRN 04/25/17 [Calcium 500-Vit D3 600 Tablet] Meloxicam [Mobic] 15 mg PO DAILY PRN 04/25/17 proMETHazine tablet [Phenergan 25 mg PO 4X/DAY PRN PRN #30 tab 05/10/17 tablet] Docusate Sodium [Colace] 100 mg PO BID 05/19/17 Vancomycin 1,000 mg IV Q12H #76 bag 05/24/17 Amlodipine [Norvasc] 5 mg PO DAILY tablet 05/25/17 Calcium Carb/Vitamin D [Os-Skinny 1 tablet PO DAILY@0800 tablet 05/25/17 500MG + D] Docusate Sodium [Colace] 100 mg PO BID capsule 05/25/17 Lactobacillus Acidophilus 1 tablet PO BID tablet 05/25/17 [Acidophilus] Meloxicam [Mobic] 15 mg PO DAILY PRN tablet 05/25/17 Sertraline HCl [Zoloft] 150 mg PO DAILY@0600 tablet 05/25/17 proMETHazine tablet [Phenergan 25 mg PO Q4H PRN PRN tablet 05/25/17 tablet] traZODone [Desyrel] 50 mg PO QHS tablet 05/25/17 doxycycline hyclate 100 mg capsule See Label Instructions PO BID #28 06/11/17 cap Diazepam [Valium] 5 mg PO 4X/DAY PRN PRN #30 tab 07/10/17 Diazepam [Valium] 5 mg PO 4X/DAY PRN PRN #30 tab 07/24/17 Oxycodone HCl/Acetaminophen 1 - 2 tab PO 4X/DAY PRN PRN 7 Days 07/24/17 [Percocet 5-325] #50 tab Maternal Family History: Family History (Last Updated 02/28/17 @ 15:22 by Fernanda Polk) Unknown No problems noted. Family History: Diabetes, Heart Disease Paternal Family History: Family History (Last Updated 02/28/17 @ 15:22 by Fernanda Polk) Unknown No problems noted. Family History: No pertinent history Smoking Status: Former smoker Physical Exam Vital Signs Temp Pulse Resp BP 98.2 F 79 16 105/71 09/07/17 13:19 09/07/17 13:19 09/07/17 13:19 09/07/17 13:19 General: Alert, Oriented x3, Cooperative, No apparent distress HEENT: Atraumatic, PERRLA, Normocephalic, TM's Clear Lungs: Clear to auscultation, Normal air movement, No rhonchi, No wheeze, No rales Cardiovascular: Regular rate, Regular Rhythm Psych/Mental Status: Normal Affect, Alert and oriented to time, place, person, mood and affect Assessment/Plan The patient appears to be tolerating hyperbaric oxygen therapy well, which will be continued as per the patient's medical plan.
== END 2017-09-16 23:59 ==
LOC: WC 13:00
PROVIDERS: Family Provider Internal Medicine; PCP Internal Medicine; Visit Provider Nurse Practitioner
DX: L59.9 Disorder of the skin and subcutaneous tissue related to radiation, unspecified (principal); Z85.3 Personal history of malignant neoplasm of breast; T86.828 Other complications of skin graft (allograft) (autograft); Y83.9 Surgical procedure, unspecified as the cause of abnormal reaction of the patient, or of later complication, without mention of misadventure at the time of the procedure; Z87.891 Personal history of nicotine dependence
CPT/HCPCS: 99183; G0277

== ENCOUNTER 2017-09-19 06:16 | Inpatient (IN) | payer MEDICAID, SELFPAY ==
--- NOTE | 2017-09-18 21:00 | PCM.HP.BLA ---
History and Physical Date of Admission: 09/19/17 HISTORY OF PRESENT ILLNESS 47 year old woman presents for further evaluation for breast reconstruction. Her initial bilateral mastectomy was on 01/12/16. She underwent IV chemotherapy initially and this was followed by radiation therapy to the right breast. She finished the radiation therapy in 10/03. She underwent a TRAM flap in 05/07. She developed a hematoma in the TRAM flap followed by some TRAM flap compromise. About 20% of the flap was salvaged after drainage of a postop hematoma and after debridement of some compromise to the TRAM flap. She underwent wound care with the VAC and then with Silver dressing changes along with antibiotics and HBO therapy to try and salvage the right breast reconstruction and chest wall in preparation for further breast reconstruction. She presents today for further evaluation and treatment. 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 late effect radiation right breast reconstruction. 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 compromised TRAM flap right breast reconstruction with partial loss. hematoma right breast reconstruction and chest wall. PAST SURGICAL HISTORY Thyroidectomy, subtotal Tubal ligation Hysterectomy with bilateral salpingectomy and left oophorectomy - 10/02 prophylactic mastectomy left breast by Dr. Ahn - 01/12/16 mastectomy right breast and bilateral sentinel node biopsies by Dr. Juárez - 01/12/16 port placement - 02/02 delayed right breast reconstruction with unipedicle contralateral TRAM flap and abdominal wall reconstruction with placement of Strattice acellular dermal matrix graft (100 cm2) and revision radiation scar contour deformity right breast with multiple W-plasties (40 cm2) - 05/02/17 surgical preparation right breast TRAM flap reconstruction with incision and drainage and evacuation hematoma - 05/05/17 surgical preparation right breast reconstruction with excisional debridement compromised TRAM flap (256 cm2) - 05/23/17 MEDICATIONS Zoloft. Valium. Mobic. Trazodone. Norvasc. Calcium Carbonate. ALLERGIES Poultry. FAMILY HISTORY negative for breast cancer. SOCIAL HISTORY Patient is a former smoker. Passive smoke exposure - no Alcohol Use - no Regular Exercise - yes Passive smoke exposure - yes REVIEW OF SYSTEMS General - Denies fever and fatigue. History of weight loss. Eyes - Denies eye pain. ENT - Denies nasal congestion and sore throat. CV - Denies chest pain or discomfort, fatigue, lightheadedness and shortness of breath with exertion. Resp - Denies cough and shortness of breath. Patient is a former smoker. GI - Denies nausea, vomiting, diarrhea and constipation. - Denies blood in urine and urinary frequency. MS - Complains of back pain. Denies joint pain, stiffness, muscle weakness and arthritis. Derm - Denies suspicious lesions and skin cancer. Has nonhealing radiation ulcer right chest wall and breast reconstruction. Neuro - Denies poor balance and headaches. Psych - Complains of anxiety. Denies depression. Endo - Denies excessive urination and excessive thirst. Has thyroid disease. Has history of right breast cancer. Heme - Denies bleeding and abnormal bruising. PHYSICAL EXAMINATION General: well developed, well nourished, in no acute distress. Her bra size was 36 C prior to her breast cancer. Head: normocephalic and atraumatic. Eyes: PERRL. EOMI. Neck: no masses, thyromegaly, or abnormal cervical nodes. Breasts: Mastectomy vertical incision on the left breast is healed. No breast masses palpated. On the right breast there is a nonhealing radiation ulcer. Good granulation tissue is present. Skin edges are firm from radiation effects. Ulcer measures 7.5 x 8.5 x 2 cm. Some mild discoloration. There is the remnant of her TRAM flap inferior and medially, about 20%. Flap is soft. No axillary adenopathy. Breast diameter is 12 cm bilaterally. Lungs: clear bilaterally to auscultation. Heart: regular rate and rhythm. Abdomen: normal bowel sounds; no hepatosplenomegaly no ventral,umbilical hernias or masses noted. There is healed TRAM flap scar in lower anterior abdominal wall. Had some residual seroma postop that required an ultrasound guided drainage. Pulses: pulses normal in all 4 extremities. Extremities: no clubbing, cyanosis, edema, or deformity noted with normal full range of motion of all joints. Neurologic: cranial nerves II-XII grossly intact. Skin: no rashes. Cervical Nodes: no significant adenopathy. Axillary Nodes: no significant adenopathy. Inguinal Nodes: no significant adenopathy. Psych: alert and cooperative; normal mood and affect; normal attention span and concentration. ASSESSMENT 1. Nonhealing radiation ulcer right chest wall and breast reconstruction, 2. Right breast cancer. 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 5. Disproportion reconstructed breasts. 6. Late effect radiation right breast. 7. 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 8. Compromised TRAM flap right breast reconstruction with partial loss. 9. History of hematoma right breast reconstruction and chest wall. 10. Estrogen receptor status negative. 11. Former smoker. PLAN Patient has finished her HBO treatments to help salvage the compromised TRAM flap and the underlying radiation soft tissue radionecrosis. She presents to discuss further breast reconstruction. Nonradiated tissue needs to be brought in to the right breast reconstruction and chest wall defect. Will use the latissimus dorsi myocutaneous flap. The patient is not interested in a saline tissue ad copy writer. She would want to go straight to the breast implant at the appropriate time. The issue is in the size of the latissimus dorsi flap. If I plan a regular sized flap which would allow closure of the donor site on the back, we may not have enough soft tissue coverage for the right sized implant. Therefore a smaller implant would be needed or the placement of a saline tissue ad copy writer would be done. Even then, there is no guarantee the ad copy writer will stretch the latissimus as much as we would like since there is still some radiated tissue present. Some stretch and expansion would occur. I just don't know how much. If I plan a larger sized flap which would not allow closure of the donor site on the back, we would need to skin graft the donor site but the trade off would be extra nonradiated tissue that would give us more options with the reconstruction. The skin graft can always be dealt with in the future with serial excision versus a two stage placement of saline tissue expanders to stretch the surrounding skin prior to wound closure on the back. Patient stated that she has been through a lot and wants a nice shaped breast and is willing to be safe and take extra skin with the latissimus to give us more breast reconstruction options in the future. She would not mind the skin graft on her back and knows that if she changes her mind in the future and doesn't like the skin graft then revision surgeries can be done. It is much more difficult to revise the breast if not enough non radiated tissue is not brought forth. I anticipate a radiation scar contracture contour deformity that would necessitate multiple W-plasty reconstruction to maximize the contour of the right breast and minimize some of the radiation scar contracture forces. She will have drains in for several days as well as a binder to keep the back from forming a seroma. She will be maintained on antibiotics at least until the drains are removed. She will be admitted to the floor after the surgery for at least 3 days maybe up to 5. She will keep her head elevated during the initial postop period. Also in the postop period, she would resume HBO treatments to maximize healing from the soft tissue radionecrosis from her radiation therapy. After healing has occurred, in 2-3 months can consider additional breast reconstruction with the placement of implants on both sides. May need to revise skin on the left. Depending on the breast pockets at that time and depending on her wishes, a tissue ad copy writer may be placed to make the breast pocket a little bigger for symmetry purposes. If she wants to hold off on a tissue ad copy writer and is willing to accept a slightly smaller breast as long as symmetry is reasonable, then would proceed with breast implants on both sides and likely would have to make the skin envelope on the left a little smaller. Then 2-3 months after that, can consider any revision that may be necessary and to consider nipple reconstruction at that time. Her goal is to try and have everything done by the end of February so that she can get back to work. At the time of surgery, will treat perioperatively with Vancomycin and Levaquin. At surgery, would send tissue cultures as well as to send tissue to Pathology for analysis to rule out carcinoma. A positive culture may necessitate antibiotic modification. The patient was informed of the risks and complications of the procedure including alternatives to surgery. These were discussed with the patient personally. The patient voices understanding and wishes to proceed. Some of the risks and complications were included in a form from the [employer]. Encouraged the patient to stop smoking as it may have deleterious effects on wound healing. She states she has stopped smoking after her breast cancer diagnosis.
[2017-09-19] VITALS (11 sets, daily range): BP systolic 111–142; BP diastolic 65–89; PULSE 70–131; RESP 16; TEMP 35.3–37; O2SAT 96–100; BMI 33.4; BMI 33.3
--- NOTE | 2017-09-19 | UL_PTH ---
PATIENT: SHARON BARRAGAN LOC: [id number] U#:[id number] AGE/SX: 47/F ROOM: [facility] [place] RE09/19/[address]: Dr. Junior Ahn MD : [id number] BED: 1 DIS: 09/25/2017 SPEC #: [id number] RECD: 09/19/17 14:44 STATUS: CHIDI REQ #: [id number] JOANNA: 09/19/17 00:[address]: Junior Ahn DEPT: SURGICAL PATHOLOGY RECD BY: Jaya Carter ENTERED: 09/19/17 14:44 SP TYPE: ULCER OTHR DR: Dr. Josué Price MD Tissues: Right breast, NOS Procedures: Special Stain Group I Surgery Specimen Level IV AFB Stain (control) GMS Stain (control) HEADER OPERATION: Breast, reconstruction latissimus dorsi flap, poss. 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 Fat necrosis and fibrosis. No evidence of malignancy. Benign histiocytic reactive process. Negative for acid-fast bacilli and fungal organisms. AM:sharon 09/22/17 COMMENT AFB and GMS stains with matched controls were used in the evaluation of this case. MICROSCOPIC DESCRIPTION Slides are reviewed. GROSS DESCRIPTION Received in fixative is one container labeled with the patient's name and designated right breast radiation ulcer. The specimen consists of an irregular fragment of skin and ulcer and attached fibrofatty tissue measuring 8.5 x 7 cm and a depth of excision measuring 1.5 cm in greatest dimension. An area of ulcer is present in the cutaneous surface measuring 5.5 x 4.5 x 0.2 cm. Serial sections do not reveal mass lesions. Stamping Press Operator sections are submitted in four cassettes. / AM:sharon 09/21/17 TC:2 CPT: 17008, 43308 x2
[2017-09-19] MEDS: levoFLOXacin IV 500 MG/100 ML BAG 100 MG IV (08:50)
[2017-09-19] MEDS: Methylene Blue 1% 100 MG/10 ML VIAL (09:00)
[2017-09-19 13:52] LABS: M R Staph aureus DNA By PCR Negative (Negative); Probe Check PASS; Specimen Processing Control PASS; Staph aureus DNA By PCR NEGATIVE (Negative)
--- NOTE | 2017-09-19 17:49 | PCM.IMDPSTOP ---
Immediate Post-Op Note Date of Procedure: 09/19/17 Primary Surgeon/Physician: Junior Ahn anesthesiologist/physician: Leigh Ann Brush. anesthesiologist/physician: Zeus Souza. Pre-Operative Diagnosis: 1. 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 2. Right breast cancer. 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 5. Disproportion reconstructed breasts. 6. Late effect radiation right breast. 7. 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 8. Compromised TRAM flap right breast reconstruction with partial loss. 9. History of hematoma right breast reconstruction and chest wall. 10. Estrogen receptor status negative. 11. Former smoker. Post-Operative Diagnosis: Same. Surgery/Procedure Performed:: 1. Revision right breast reconstruction with excision nonhealing radiation ulcer scar contour deformity and lateral rotation TRAM flap. 2. Delayed right breast reconstruction with placement of latissimus dorsi myocutaneous flap. Description of Surgical Findings:: 47 year old woman presents for further evaluation for breast reconstruction. Her initial bilateral mastectomy was on 01/12/16. She underwent IV chemotherapy initially and this was followed by radiation therapy to the right breast. She finished the radiation therapy in 10/03. She underwent a TRAM flap in 05/07. She developed a hematoma in the TRAM flap followed by some TRAM flap compromise. About 20% of the flap was salvaged after drainage of a postop hematoma and after debridement of some compromise to the TRAM flap. She underwent wound care with the VAC and then with Silver dressing changes along with antibiotics and HBO therapy to try and salvage the right breast reconstruction and chest wall in preparation for further breast reconstruction. Today the patient underwent revision right breast reconstruction with excision nonhealing radiation ulcer scar contour deformity and lateral rotation TRAM flap and delayed right breast reconstruction with placement of latissimus dorsi myocutaneous flap. Size of defect right back - 21 x 15 x 2 cm. IV Fluids - 3000 ml. Urine Output - 1125 ml. I used Geri absorbable hemostat (I used 4 vials, 2 in the right back, one in the right breast, and one in the flank areas). Reference Number - [id number]. Lot Number - [id number]. Expiration - July 15, 2022. Estimated Blood Loss: 200 ml. Specimen's removed: 1. Radiation ulcer right breast to Pathology and Microbiology. 2. MRSA Wound DNA by PCR. Drains: [place] x 2 in the right breast. Type of Anesthesia:: General - Admit VTE Documentation VTE Present on Admission: No VTE Mechan Device Prophylaxis: SCD's VTE Pharm Prophylaxis ordered?: Yes
[2017-09-19] MEDS: HYDROmorphone 1 MG/ML Syringe IV ×2 (20:00→23:06)
--- NOTE | 2017-09-19 20:43 | PCM.OPRPT ---
Report of Operation Date of Procedure: 09/19/17 Pre-Operative Diagnosis: 1. 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 2. Right breast cancer. 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 5. Disproportion reconstructed breasts. 6. Late effect radiation right breast. 7. 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 8. Compromised TRAM flap right breast reconstruction with partial loss. 9. History of hematoma right breast reconstruction and chest wall. 10. Estrogen receptor status negative. 11. Former smoker. Post-Operative Diagnosis: Same. Surgery/Procedure Performed:: 1. Revision right breast reconstruction with excision nonhealing radiation ulcer scar contour deformity and lateral rotation TRAM flap. 2. Delayed right breast reconstruction with placement of latissimus dorsi myocutaneous flap. Description of Surgical Findings:: 47 year old woman presents for further evaluation for breast reconstruction. Her initial bilateral mastectomy was on 01/12/16. She underwent IV chemotherapy initially and this was followed by radiation therapy to the right breast. She finished the radiation therapy in 10/03. She underwent a TRAM flap in 05/07. She developed a hematoma in the TRAM flap followed by some TRAM flap compromise. About 20% of the flap was salvaged after drainage of a postop hematoma and after debridement of some compromise to the TRAM flap. She underwent wound care with the VAC and then with Silver dressing changes along with antibiotics and HBO therapy to try and salvage the right breast reconstruction and chest wall in preparation for further breast reconstruction. The patient was informed of the risks and complications of the procedure including alternatives to surgery. These were discussed with the patient personally. The patient voices understanding and wishes to proceed. Some of the risks and complications were included in a form from the [employer]. Encouraged the patient to stop smoking as it may have deleterious effects on wound healing. She states she has stopped smoking after her breast cancer diagnosis. Size of defect right back - 21 x 15 x 2 cm. IV Fluids - 3000 ml. Urine Output - 1125 ml. I used Geri absorbable hemostat (I used 4 vials, 2 in the right back, one in the right breast, and one in the flank areas). Reference Number - [id number]. Lot Number - [id number]. Expiration - July 15, 2022. wine pasteurizer: Leigh Ann Brush. wine pasteurizer: Zeus Souza. Type of Anesthesia:: General Specimen's removed: 1. Radiation ulcer right breast to Pathology and Microbiology. 2. MRSA Wound DNA by PCR. Drains: Kolton x 2 in the right breast. Estimated Blood Loss (mL): 200 ml. Fluids Replaced: 4125 ml (IV Fluids 3000 ml, Urine Output 1125 ml). Description of Procedure: The patient was taken to the preop area and in the sitting position, preoperative markings were made. The sternal midline was marked down to the umbilicus, then the inframammary fold was marked bilaterally. I then had the patient stand, and she abducted her arms and the latissimus dorsi muscle was palpable. I marked the dimensions of the latissimus dorsi from the teres major superiorly to the midline medially to the anterior edge of the muscle laterally to the posterior iliac spine inferiorly. I then kourtney an ellipse of skin on the right back in an oblique fashion from inferomedial to superolateral to allow ease in rotation into the right breast defect. This allowed me to make a larger ellipse. She has a large breast defect, and I anticipate a flap width of 12 cm. Usually the flap wound can be closed if it is 10 cm or less. Since it will be larger, the patient is aware that part of the donor flap incision may be skin grafted. A VAC can also be used. She would prefer a skin graft if possible. So I also made elliptical markings inthe right flank and left flank where the excess abdominal wall TRAM flap scar contour deformities were located to provide the donor skin graft site. The patient was then taken to the OR in the supine position and placed under general anesthesia and a Terrell catheter was then placed. SCDs were placed for DVT prophylaxis. Perioperative antibiotics were given intravenously. I will first excise the nonhealing radiation ulcer scar contour deformity so I have a better idea of the defect for the size of the latissimus dorsi flap. So the right breast and the left flank were prepped and draped in the usual fashion. The left flank will be used as a donor site for skin grafting. It won't be available for excision after I move the patient in the lateral position to mobilize the latissimus flap. The radiation ulcer and left flank donor site areas were infiltrated with xylocaine with epinephrine. After waiting 5 minutes for the anesthetic to take effect, excision was carried down to the chest wall. There was a lot of residual radiation and firmness within this scar deformity and wound deformity. There was a lot of fat necrosis present as well. I also excised the edges of the skin flaps to aid in wound closure. Some of the tissue was sent to microbiology for culture. The rest was sent to pathology for analysis to rule out any carcinoma. MRSA Wound DNA by PCR was also sent. Size of the defect in the right lateral breast in preparation for flap was 17 x 11 cm or 187 sq cm. I then placed moist gauze into the right breast wound and a sterile towel that was stapled to the skin for security during the position transfer of the patient. I then made an elliptical excision in the left flank as I extended the TRAM flap incision. I removed the subcutaneous tissue and deeper dermis thus fashioning a thick split thickness skin graft. The skin graft was placed on stretch and meshed with a 15 blade. The skin graft was then placed in saline. Some excess subcutaneous tissue was removed to aid in wound closure. Hemostasis was obtained with electrocautery. Before closing the donor wound, I sprayed a little bit of Geri absorbable hemostat to minimize seroma formation. The donor wound was closed in multiple layers with 2-0 Vicryl interrupted sutures for Melani's fascial layer. The deep dermis and subcutaneous tissue was approximated with 3-0 Vicryl interrupted sutures. The skin was approximated with 3-0 V-lock unidirectional barbed running subcuticular suture. Histoacryl skin tissue adhesive was applied followed by a dry gauze dressing. Patient was then placed in the lateral position and her right back and arm and right flank area and right breast area were prepped and draped in the usual fashion. The moistened gauze and sterile towel were removed from the right breast at the time of the prepping. The dimensions of the right breast wound were measured as an oblique flap on the right back from inferomedial to superolateral. I extended the width of the flap to 12 cm because of her history of radiation therapy with the associated decrease in skin elasticity. The placement of the flap in the oblique position will help with the rotation of the flap into the breast defect. I also extended the length of the flap inferiorly to help cover the radiation defect. This extra extension of the flap inferiorly may have questionable vascularity. If there are any bruising in this most distal portion of the flap, I plan on having her undergo HBO treatments postoperatively as well. These markings were infiltrated with 1% Xylocaine and epinephrine. I made incisions through the back ellipse down through the subcutaneous tissue until the muscle was seen. I dissected the muscle medially to the trapezius muscle, superiorly to the teres major muscle, laterally to the anterior edge of the muscle and inferiorly to the lumbar region at the level of the posterior iliac spine. I made an incision to the muscle inferiorly and elevated the muscle from inferior to superior. I removed more muscle than usual in order to provide additional vascularized tissue in her radiated breast wound. The perforators were ligated using surgical clips. When I got close to the axilla, I dissected up to the thoracodorsal vascular pedicle. It was soft and intact without ill effects clinically from radiation. Also only a sentinel lymph node biopsy was done and not a full axillary dissection which can sometimes injure the thoracodorsal pedicle. I felt there was enough freeing up of the flap, then I dissected a subcutaneous tunnel to the lateral aspect of the breast. I then was able to rotate the latissimus dorsi flap through the subcutaneous tunnel into the defect. Hemostasis was obtained using electrocautery. The wound was irrigated with saline. I then placed 3 Kolton drains through a separate stab incision lateral to the breast and anterior to the back wound and secured to the skin using 3-0 nylon suture. Two would drain the back wound up toward the axilla and one would drain the breast. After the back wound was irrigated with saline, hemostasis was obtained using electrocautery. I then sprayed Geri absorbable hemostat into the back wound to minimize seroma formation. I sprayed 2 vials into the back wound. I then tried to close the back wound in multiple layers as much as I can. I used 2-0 Vicryl eeexib-ek-ylcwc interrupted sutures for the underlying fascia. The deep dermis and subcutaneous tissue was approximated using 2-0 Vicryl interrupted sutures and 3-0 Monocryl interrupted sutures. The skin was approximated using 3-0 V-lock unidirectional barbed running subcuticular suture. Histoacryl skin tissue adhesive was applied. I was only able to close the ends of the wound. The central area was left open since there was too much tension. This central area will be skin grafted. I needed additional donor skin so I kourtney an ellipse of skin in the right flank and this area was infiltrated with xylocaine with epinephrine. An elliptical excision was made into the subcutaneous tissue. The subcutaneous tissue was removed from the undersurface of the dermis and some of the deeper dermis was removed thus fashioning a thick split thickness skin graft. It was placed on stretch and meshed with a 15 blade. The skin graft was placed in saline. The excess tissue was excised including some of the subcutaneous tissue to aid in wound closure. Hemostasis was obtained using electrocautery. The wound was irrigated with saline. I then sprayed the rest of the Geri absorbable hemostat into the defect to minimize seroma formation. I then closed the wound in multiple layers using 2-0 Vicryl chqsvk-yu-rlyzg interrupted sutures for the underlying Melani's fascia. Deep dermis and subcutaneous tissue was approximated using 2-0 Vicryl interrupted sutures and 3-0 Monocryl simple interrupted sutures. The skin was approximated using 3-0 V-Loc unidirectional barbed running subcuticular suture. Histoacryl skin tissue adhesive was applied, followed by Kerlix dressing. The thick split thickness skin graft was then applied into the central aspect of the back wound and secured to the skin edge with 3-0 Chromic simple interrupted sutures. 3-0 Chromic suturing was also used for central quilting stabilization. I then placed Bactroban ointment on the skin graft followed by Mepitel nonadherent dressing and moistened gauze as a compression dressing. Dry Kerlix gauze was then applied to the whole right breast wound/incision area. I then inset the latissimus dorsi flap into the right lateral breast wound and temporized the edge of the latissimus flap to the breast skin with 3-0 Monocryl sutures. Once again moistened gauze was applied to the breast wound followed by a sterile towel that was stapled to the skin. The patient was then placed in the supine position to inset the flap. The breast wound was prepped and draped in the usual fashion. I irrigated the breast wound with saline and hemostasis was obtained using electrocautery. When I rotated the flap, there was minimal tension from the axillary area. I had placed 3 Kolton drains through separate stab incisions inferiorly and laterally from the breast. 2 drained the back and one will drain the right breast. After irrigating the breast wound with saline and obtaining hemostasis with electrocautery, I then sprayed Geri absorbable hemostat into the right breast wound. I used one vial. I then inset the latissimus dorsi flap into the wound by first approximating the deep subcutaneous tissue with the muscle using 3-0 Vicryl amwqhj-pz-zebwv interrupted sutures. The deep dermis and subcutaneous tissue was approximated using 3-0 Monocryl interrupted sutures. At this point it was exceedingly difficult to close the inferior edge of the wound. So the options at this point included packing the wound which would not be a good terminal gauger solution because the scarring would not provide a good skin envelope for an implant in the future. However in order to close the inferior aspect of the breast wound, we will have to remove the sutures in the back wound since there is too much tension on the back closure. Therefore we will have to remove the sutures and the skin graft on the right breast wound and leave it open and place a VAC. This would take tension off the inferior skin edge and allow soft tissue closure on the right breast. She would be able to deal with a back wound better than a continuation of the breast wound. She was then placed back in the lateral position and the back was prepped and draped in the usual fashion. The sutures were removed and the skin graft was removed. When the wound was opened, hemostasis was obtained with electrocautery. The size of the back wound was 21 x 15 x 2 cm. Mepitel nonadherent dressing was applied to the wound followed by Kerlix gauze and Betadine followed by dry Kerlix gauze and ABD pads for a compression dressing. The VAC will be applied tomorrow. The patient was then placed supine and the right breast wound was prepped and draped in usual fashion. The inferior skin of the right breast and chest wall was looser and easier to work with despite chronic radiation effects, and I was able to close the latissimus dorsi flap inferiorly without tension. This was done with 3-0 Vicryl figure of eight interrupted sutures for the deep subcutaneous tissue with the muscle. The deep dermis and subcutaneous tissue was approximated with 3-0 Monocryl interrupted sutures. The skin was approximated with 4-0 Prolene simple interrupted and vertical mattress interrupted sutures and Histoacryl skin tissue adhesive. Kerlix gauze dressing was applied. At the end of the case, the latissimus flap was soft and viable. No evidence of vascular compromise. No evidence of hematoma. She tolerated the procedure well and was sent to PACU in satisfactory condition. She will be sent upstairs for postoperative care. She will be allowed to ambulate with assistance. She will keep her head elevated during the initial postoperative period. She will have drains in for several days and to maintain antibiotics until the drains are removed. Depending on the cultures, the antibiotic modification may be necessary. We will also check a prealbumin as I anticipate increased metabolic demands from the stress of the surgery and I will encourage nutritional supplementation with protein to help with the healing process. Also during the surgery when I first mobilized the latissimus dorsi flap, I had anesthesia give IV Solu-Medrol to minimize swelling within the vascular pedicle. At the end of the procedure, the latissimus flap was pink and soft and viable with no evidence of vascular compromise and no evidence of hematoma. Will continue the Solu-Medrol for 24 hours. Grafts/Implants Used: None. - Complications None. - Admit VTE Documentation VTE Present on Admission: No VTE Mechan Device Prophylaxis: SCD's VTE Pharm Prophylaxis ordered?: Yes Code Visit Surgery Charges CPT - 35577 ICD-10 - C50.911, F40.298, Z90.13, N65.1, T66.xxxS, L98.499, T86.828, Z17.1, Z87.891 94430 C50.911, N65.0, T66.xxxS, L98.499, T86.828, F40.298, Z90.13, Z17.1, Z87.891, N65.1
--- NOTE | 2017-09-19 21:03 | PCM.RX.CS ---
Consult Pharmacy has been consulted to manage selected antiobiotic: Vancomycin Type of Consult: New start Suspected Infection: Skin/Soft tissue Prior Doses of Antibiotics Received/Current Regimen: Vancomycin 1000mg IV x1 preop Microbiology: Microbiology 09/19/17 Unknown Tissue - Breast Gram Stain - Final Weight used for dosin kg Estimated Creatinine Clearance: 82ml/min Goal Trough: 10-15 mcg/mL Pharmacy Plan for Drug Dosing: Recommend Vancomycin 1000mg IV q12h. Checking trough before the 4th dose on 09/20/17 at 2030 Pharmacy Service will continue to monitor and adjust dosing as required. Follow-Up Labs: Trough Vancomycin Labs to be done on [date and time ordered]: 09/20/17 @ 2030 trough level
--- NOTE | 2017-09-19 21:06 | PHA.PHARE_ITS ---
Consult Pharmacy has been consulted to manage selected antiobiotic: Vancomycin Type of Consult: New start Suspected Infection: Skin/Soft tissue Prior Doses of Antibiotics Received/Current Regimen: Vancomycin 1000mg IV x1 preop Microbiology: Microbiology 09/19/17 Unknown Tissue - Breast Gram Stain - Final Weight used for dosin kg Estimated Creatinine Clearance: 82ml/min Goal Trough: 10-15 mcg/mL Pharmacy Plan for Drug Dosing: Recommend Vancomycin 1000mg IV q12h. Checking trough before the 4th dose on 09/20 at 2030 Pharmacy Service will continue to monitor and adjust dosing as required. Follow-Up Labs: Trough Vancomycin Labs to be done on [date and time ordered]: 09/20/17 @ 2030 trough level
[2017-09-19] MEDS: oxyCODONE 5 MG Tablet 10 MG PO (21:24)
[2017-09-19] MEDS: Docusate Sodium 100 MG Capsule PO (21:25)
[2017-09-19] MEDS: traZODone 50 MG Tablet PO (21:25)
[2017-09-19] MEDS: MethylPREDNISolone 125 MG/2 ML Vial IV (21:25)
[2017-09-19] MEDS: Lactated Ringers 1,000 ML 60 ML IV (23:58)
[2017-09-20] MEDS: diazePAM 5 MG Tablet PO ×4 (00:02→20:04)
[2017-09-20] MEDS: oxyCODONE 5 MG Tablet 10 MG PO ×5 (02:01→23:22)
[2017-09-20 02:15] VITALS: PULSE 99; O2SAT 98
[2017-09-20] MEDS: HYDROmorphone 1 MG/ML Syringe IV ×6 (03:43→22:07)
[2017-09-20] MEDS: Sertraline 50 MG Tablet 150 MG PO (05:46)
[2017-09-20] MEDS: MethylPREDNISolone 125 MG/2 ML Vial IV ×2 (05:47→13:43)
[2017-09-20] MEDS: Enoxaparin 30 MG/0.3 ML Syringe SC (05:47)
[2017-09-20 05:55] LABS: Hematocrit 31.2 % (37-47); Hemoglobin 10.7 g/dl (12.0-15.0); Mean Corp Hgb Conc 34.3 g/gl (32-36); Mean Corpuscular Hgb 27.6 pg (27.0-32.0); Mean Corpuscular Volume 80.4 fL (81-99); Mean Platelet Vol. 9.3 fl (6.2-12.0); Platelet Count 209 K/mm3 (150-450); RBC Distribution Width CV 15.6 % (11.6-14.6); RBC Distribution Width SD 44.6 fl (35.1-43.9); Red Blood Count 3.88 M/mm3 (4.2-5.4); White Blood Count 9.8 K/mm3 (4.4-11.0)
[2017-09-20 06:15] LABS: Scan Indicated on CBC? Y/N NO
[2017-09-20 06:18] LABS: Anion Gap 9 (5-15); BUN 12 mg/dL (7-18); BUN/Creat Ratio 15.4 RATIO (10-20); Calcium,Total 8.1 mg/dL (8.5-10.1); Chloride 110 mmol/L (98-107); Creatinine, Serum 0.78 mg/dL (0.55-1.02); EST Glomerular Filtration Rate 84 mL/min (>60); Est Glom Filt Rate - Afr Amer 101 mL/min (>60); Estimated Creatinine Clearance 66.56 ml/min; Glucose 148 mg/dL (74-106); Potassium 4.4 mmol/L (3.5-5.1); Prealbumin 21.3 mg/dL (20.0-40.0); Sodium Level 140 mmol/L (136-145)
[2017-09-20] MEDS: Docusate Sodium 100 MG Capsule PO ×2 (08:36→22:06)
[2017-09-20 08:40] VITALS: BP 106/58; PULSE 106; RESP 18; TEMP 36.6; O2SAT 95
[2017-09-20] MEDS: levoFLOXacin IV 500 MG/100 ML BAG 100 MG IV (10:23)
--- NOTE | 2017-09-20 11:17 | PCM.PN.SRG ---
Subjective: Postop #1 Patient is having some incisional discomfort. Tolerated dressing change to the back reasonably well today. - Physical Exam General: Alert, Oriented x3 HEENT: PERRLA, EOMI Oral: Moist Mucosa Skin: Ulcer/ Wound - right back wound is stable. No bleeding noted. Muscle viable. Redressed the wound with saline dressing. May place the VAC later today or in the morning., Incision - right breast incisions are dry and intact. Flap is soft and pink and viable and healing satisfactory. No evidence of vascular compromise. No clinical evidence of hematoma. Neurological: Cranial nerves II-XII grossly intact Psych/Mental Status: Normal Affect, Appropriate Vital Signs Temp Pulse Resp BP Pulse Ox 97.8 F 106 H 18 106/58 L 95 09/20/17 08:40 09/20/17 08:40 09/20/17 08:40 09/20/17 08:40 09/20/17 08:40 Oxygen Delivery Method Room Air Weight: 176 lb 12.972 oz Body Mass Index (BMI) 33.3 Intake and Output for Last 24 Hours 09/18/17 09/19/17 09/20/17 23:59 23:59 23:59 Intake Total 3500 / 3500 2749 / 2749 Output Total 1500 / 1500 1195 / 1195 Balance 1999 / 1999 1554 / 1554 Drainage 25 ml yesterday, 280 ml today. Microbiology Past 72 Hours 09/19/17 Unknown Gram Stain - Final Tissue - Breast Laboratory Tests Past 24 Hrs 09/19/17 09/20/17 09/20/17 Unknown 05:20 05:20 WBC 9.8 RBC 3.88 L Hgb 10.7 L Hct 31.2 L MCV 80.4 L MCH 27.6 MCHC 34.3 RDW 15.6 H RDW Differential 44.6 H Plt Count 209 MPV 9.3 Sodium 140 Potassium 4.4 Chloride 110 H Carbon Dioxide 21.0 Anion Gap 9 BUN 12 Creatinine 0.78 Estim Creat Clear Calc 66.56 Est GFR (MDRD) Af Amer 101 Est GFR (MDRD) Non-Af 84 BUN/Creatinine Ratio 15.4 Glucose 148 H Calcium 8.1 L Prealbumin 21.3 S.aureus Protein A PCR NEGATIVE MRSA (PCR) Negative Pathology - pending. 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 2. Right breast cancer. 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 5. Disproportion reconstructed breasts. 6. Late effect radiation right breast. 7. 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 8. Compromised TRAM flap right breast reconstruction with partial loss. 9. History of hematoma right breast reconstruction and chest wall. 10. Estrogen receptor status negative. 11. Former smoker. Right breast incisions are dry and intact. Flap is pink and soft and viable and healing satisfactory. No evidence of vascular compromise. No clinical evidence of hematoma. Keep head elevated. Right back wound is stable with no bleeding. Redressed with saline gauze. May apply the VAC today or in the morning. Prealbumin is 21.3. Encourage nutritional supplementation with protein to help the healing process. Operative culture is negative thus far. Continue Vancomycin and Levaquin for previous culture of Acinetobacter and MRSE. At discharge, would like to continue HBO treatments. Will also need [facility]up [facility] for her right back wound.
[2017-09-20] MEDS: Lactated Ringers 1,000 ML 60 ML IV (13:44)
[2017-09-20 13:58] VITALS: BP 114/66; PULSE 111; RESP 18; TEMP 37.1; O2SAT 96
--- NOTE | 2017-09-20 15:44 | OP.PCM_ITS ---
Report of Operation Date of Procedure: 09/19/17 Pre-Operative Diagnosis: 1. 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 2. Right breast cancer. 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 5. Disproportion reconstructed breasts. 6. Late effect radiation right breast. 7. 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 8. Compromised TRAM flap right breast reconstruction with partial loss. 9. History of hematoma right breast reconstruction and chest wall. 10. Estrogen receptor status negative. 11. Former smoker. Post-Operative Diagnosis: Same. Surgery/Procedure Performed:: 1. Revision right breast reconstruction with excision nonhealing radiation ulcer scar contour deformity and lateral rotation TRAM flap. 2. Delayed right breast reconstruction with placement of latissimus dorsi myocutaneous flap. Description of Surgical Findings:: 47 year old woman presents for further evaluation for breast reconstruction. Her initial bilateral mastectomy was on 01/12/16. She underwent IV chemotherapy initially and this was followed by radiation therapy to the right breast. She finished the radiation therapy in 10/03. She underwent a TRAM flap in 05/07. She developed a hematoma in the TRAM flap followed by some TRAM flap compromise. About 20% of the flap was salvaged after drainage of a postop hematoma and after debridement of some compromise to the TRAM flap. She underwent wound care with the VAC and then with Silver dressing changes along with antibiotics and HBO therapy to try and salvage the right breast reconstruction and chest wall in preparation for further breast reconstruction. The patient was informed of the risks and complications of the procedure including alternatives to surgery. These were discussed with the patient personally. The patient voices understanding and wishes to proceed. Some of the risks and complications were included in a form from the [employer]. Encouraged the patient to stop smoking as it may have deleterious effects on wound healing. She states she has stopped smoking after her breast cancer diagnosis. Size of defect right back - 21 x 15 x 2 cm. IV Fluids - 3000 ml. Urine Output - 1125 ml. I used Geri absorbable hemostat (I used 4 vials, 2 in the right back, one in the right breast, and one in the flank areas). Reference Number - [id number]. Lot Number - [id number]. Expiration - July 15, 2022. breeding manager: Leigh Ann Brush. breeding manager: Zeus Souza. Type of Anesthesia:: General Specimen's removed: 1. Radiation ulcer right breast to Pathology and Microbiology. 2. MRSA Wound DNA by PCR. Drains: Kolton x 2 in the right breast. Estimated Blood Loss (mL): 200 ml. Fluids Replaced: 4125 ml (IV Fluids 3000 ml, Urine Output 1125 ml). Description of Procedure: The patient was taken to the preop area and in the sitting position, preoperative markings were made. The sternal midline was marked down to the umbilicus, then the inframammary fold was marked bilaterally. I then had the patient stand, and she abducted her arms and the latissimus dorsi muscle was palpable. I marked the dimensions of the latissimus dorsi from the teres major superiorly to the midline medially to the anterior edge of the muscle laterally to the posterior iliac spine inferiorly. I then kourtney an ellipse of skin on the right back in an oblique fashion from inferomedial to superolateral to allow ease in rotation into the right breast defect. This allowed me to make a larger ellipse. She has a large breast defect, and I anticipate a flap width of 12 cm. Usually the flap wound can be closed if it is 10 cm or less. Since it will be larger, the patient is aware that part of the donor flap incision may be skin grafted. A VAC can also be used. She would prefer a skin graft if possible. So I also made elliptical markings inthe right flank and left flank where the excess abdominal wall TRAM flap scar contour deformities were located to provide the donor skin graft site. The patient was then taken to the OR in the supine position and placed under general anesthesia and a Terrell catheter was then placed. SCDs were placed for DVT prophylaxis. Perioperative antibiotics were given intravenously. I will first excise the nonhealing radiation ulcer scar contour deformity so I have a better idea of the defect for the size of the latissimus dorsi flap. So the right breast and the left flank were prepped and draped in the usual fashion. The left flank will be used as a donor site for skin grafting. It won't be available for excision after I move the patient in the lateral position to mobilize the latissimus flap. The radiation ulcer and left flank donor site areas were infiltrated with xylocaine with epinephrine. After waiting 5 minutes for the anesthetic to take effect, excision was carried down to the chest wall. There was a lot of residual radiation and firmness within this scar deformity and wound deformity. There was a lot of fat necrosis present as well. I also excised the edges of the skin flaps to aid in wound closure. Some of the tissue was sent to microbiology for culture. The rest was sent to pathology for analysis to rule out any carcinoma. MRSA Wound DNA by PCR was also sent. Size of the defect in the right lateral breast in preparation for flap was 17 x 11 cm or 187 sq cm. I then placed moist gauze into the right breast wound and a sterile towel that was stapled to the skin for security during the position transfer of the patient. I then made an elliptical excision in the left flank as I extended the TRAM flap incision. I removed the subcutaneous tissue and deeper dermis thus fashioning a thick split thickness skin graft. The skin graft was placed on stretch and meshed with a 15 blade. The skin graft was then placed in saline. Some excess subcutaneous tissue was removed to aid in wound closure. Hemostasis was obtained with electrocautery. Before closing the donor wound, I sprayed a little bit of Geri absorbable hemostat to minimize seroma formation. The donor wound was closed in multiple layers with 2-0 Vicryl interrupted sutures for Melani's fascial layer. The deep dermis and subcutaneous tissue was approximated with 3-0 Vicryl interrupted sutures. The skin was approximated with 3-0 V-lock unidirectional barbed running subcuticular suture. Histoacryl skin tissue adhesive was applied followed by a dry gauze dressing. Patient was then placed in the lateral position and her right back and arm and right flank area and right breast area were prepped and draped in the usual fashion. The moistened gauze and sterile towel were removed from the right breast at the time of the prepping. The dimensions of the right breast wound were measured as an oblique flap on the right back from inferomedial to superolateral. I extended the width of the flap to 12 cm because of her history of radiation therapy with the associated decrease in skin elasticity. The placement of the flap in the oblique position will help with the rotation of the flap into the breast defect. I also extended the length of the flap inferiorly to help cover the radiation defect. This extra extension of the flap inferiorly may have questionable vascularity. If there are any bruising in this most distal portion of the flap, I plan on having her undergo HBO treatments postoperatively as well. These markings were infiltrated with 1% Xylocaine and epinephrine. I made incisions through the back ellipse down through the subcutaneous tissue until the muscle was seen. I dissected the muscle medially to the trapezius muscle, superiorly to the teres major muscle, laterally to the anterior edge of the muscle and inferiorly to the lumbar region at the level of the posterior iliac spine. I made an incision to the muscle inferiorly and elevated the muscle from inferior to superior. I removed more muscle than usual in order to provide additional vascularized tissue in her radiated breast wound. The perforators were ligated using surgical clips. When I got close to the axilla, I dissected up to the thoracodorsal vascular pedicle. It was soft and intact without ill effects clinically from radiation. Also only a sentinel lymph node biopsy was done and not a full axillary dissection which can sometimes injure the thoracodorsal pedicle. I felt there was enough freeing up of the flap, then I dissected a subcutaneous tunnel to the lateral aspect of the breast. I then was able to rotate the latissimus dorsi flap through the subcutaneous tunnel into the defect. Hemostasis was obtained using electrocautery. The wound was irrigated with saline. I then placed 3 Kolton drains through a separate stab incision lateral to the breast and anterior to the back wound and secured to the skin using 3-0 nylon suture. Two would drain the back wound up toward the axilla and one would drain the breast. After the back wound was irrigated with saline, hemostasis was obtained using electrocautery. I then sprayed Geri absorbable hemostat into the back wound to minimize seroma formation. I sprayed 2 vials into the back wound. I then tried to close the back wound in multiple layers as much as I can. I used 2-0 Vicryl [id number] interrupted sutures for the underlying fascia. The deep dermis and subcutaneous tissue was approximated using 2-0 Vicryl interrupted sutures and 3- 0 Monocryl interrupted sutures. The skin was approximated using 3-0 V-lock unidirectional barbed running subcuticular suture. Histoacryl skin tissue adhesive was applied. I was only able to close the ends of the wound. The central area was left open since there was too much tension. This central area will be skin grafted. I needed additional donor skin so I kourtney an ellipse of skin in the right flank and this area was infiltrated with xylocaine with epinephrine. An elliptical excision was made into the subcutaneous tissue. The subcutaneous tissue was removed from the undersurface of the dermis and some of the deeper dermis was removed thus fashioning a thick split thickness skin graft. It was placed on stretch and meshed with a 15 blade. The skin graft was placed in saline. The excess tissue was excised including some of the subcutaneous tissue to aid in wound closure. Hemostasis was obtained using electrocautery. The wound was irrigated with saline. I then sprayed the rest of the Geri absorbable hemostat into the defect to minimize seroma formation. I then closed the wound in multiple layers using 2-0 Vicryl [id number]-[id number]-aimsg interrupted sutures for the underlying Melani's fascia. Deep dermis and subcutaneous tissue was approximated using 2-0 Vicryl interrupted sutures and 3- 0 Monocryl simple interrupted sutures. The skin was approximated using 3-0 V- Loc unidirectional barbed running subcuticular suture. Histoacryl skin tissue adhesive was applied , followed by Kerlix dressing. The thick split thickness skin graft was then applied into the central aspect of the back wound and secured to the skin edge with 3-0 Chromic simple interrupted sutures. 3-0 Chromic suturing was also used for central quilting stabilization. I then placed Bactroban ointment on the skin graft followed by Mepitel nonadherent dressing and moistened gauze as a compression dressing. Dry Kerlix gauze was then applied to the whole right breast wound/incision area. I then inset the latissimus dorsi flap into the right lateral breast wound and temporized the edge of the latissimus flap to the breast skin with 3-0 Monocryl sutures. Once again moistened gauze was applied to the breast wound followed by a sterile towel that was stapled to the skin. The patient was then placed in the supine position to inset the flap. The breast wound was prepped and draped in the usual fashion. I irrigated the breast wound with saline and hemostasis was obtained using electrocautery. When I rotated the flap, there was minimal tension from the axillary area. I had placed 3 Kolton drains through separate stab incisions inferiorly and laterally from the breast. 2 drained the back and one will drain the right breast. After irrigating the breast wound with saline and obtaining hemostasis with electrocautery, I then sprayed Geri absorbable hemostat into the right breast wound. I used one vial. I then inset the latissimus dorsi flap into the wound by first approximating the deep subcutaneous tissue with the muscle using 3-0 Vicryl [id number]-[id number] interrupted sutures. The deep dermis and subcutaneous tissue was approximated using 3-0 Monocryl interrupted sutures. At this point it was exceedingly difficult to close the inferior edge of the wound. So the options at this point included packing the wound which would not be a good watermelon harvesting supervisor solution because the scarring would not provide a good skin envelope for an implant in the future. However in order to close the inferior aspect of the breast wound, we will have to remove the sutures in the back wound since there is too much tension on the back closure. Therefore we will have to remove the sutures and the skin graft on the right breast wound and leave it open and place a VAC. This would take tension off the inferior skin edge and allow soft tissue closure on the right breast. She would be able to deal with a back wound better than a continuation of the breast wound. She was then placed back in the lateral position and the back was prepped and draped in the usual fashion. The sutures were removed and the skin graft was removed. When the wound was opened, hemostasis was obtained with electrocautery. The size of the back wound was 21 x 15 x 2 cm. Mepitel nonadherent dressing was applied to the wound followed by Kerlix gauze and Betadine followed by dry Kerlix gauze and ABD pads for a compression dressing. The VAC will be applied tomorrow. The patient was then placed supine and the right breast wound was prepped and draped in usual fashion. The inferior skin of the right breast and chest wall was looser and easier to work with despite chronic radiation effects, and I was able to close the latissimus dorsi flap inferiorly without tension. This was done with 3-0 Vicryl figure of eight interrupted sutures for the deep subcutaneous tissue with the muscle. The deep dermis and subcutaneous tissue was approximated with 3-0 Monocryl interrupted sutures. The skin was approximated with 4-0 Prolene simple interrupted and vertical mattress interrupted sutures and Histoacryl skin tissue adhesive. Kerlix gauze dressing was applied. At the end of the case, the latissimus flap was soft and viable. No evidence of vascular compromise. No evidence of hematoma. She tolerated the procedure well and was sent to PACU in satisfactory condition. She will be sent upstairs for postoperative care. She will be allowed to ambulate with assistance. She will keep her head elevated during the initial postoperative period. She will have drains in for several days and to maintain antibiotics until the drains are removed. Depending on the cultures, the antibiotic modification may be necessary. We will also check a prealbumin as I anticipate increased metabolic demands from the stress of the surgery and I will encourage nutritional supplementation with protein to help with the healing process. Also during the surgery when I first mobilized the latissimus dorsi flap, I had anesthesia give IV Solu-Medrol to minimize swelling within the vascular pedicle. At the end of the procedure, the latissimus flap was pink and soft and viable with no evidence of vascular compromise and no evidence of hematoma. Will continue the Solu- Medrol for 24 hours. Grafts/Implants Used: None. - Complications None. - Admit VTE Documentation VTE Present on Admission: No VTE Mechan Device Prophylaxis: SCD's VTE Pharm Prophylaxis ordered?: Yes Code Visit Surgery Charges CPT - 69406 ICD-10 - C50.911, F40.298, Z90.13, N65.1, T66.xxxS, L98.499, T86.828, Z17.1, Z87.891 11658 C50.911, N65.0, T66.xxxS, L98.499, T86.828, F40.298, Z90.13, Z17.1, Z87.891, N65.1
[2017-09-20] MEDS: 0.9% NaCl Peripheral Flush Adult/Peds IV ×4 (15:49→22:06)
[2017-09-20 20:00] VITALS: BP 128/67; PULSE 97; RESP 18; TEMP 36.9; O2SAT 100
[2017-09-20] MEDS: Ondansetron 4 MG/2 ML Vial IV (20:29)
[2017-09-20 21:16] LABS: Vancomycin, Trough Level 10.9 ug/mL (5.0-15.0)
[2017-09-20] MEDS: traZODone 50 MG Tablet PO (22:06)
[2017-09-21] MEDS: HYDROmorphone 1 MG/ML Syringe IV ×3 (02:12→10:36)
[2017-09-21 02:15] VITALS: BP 100/56; PULSE 93; RESP 18; TEMP 36.7; O2SAT 99
[2017-09-21] MEDS: Ondansetron 4 MG/2 ML Vial IV ×2 (02:46→16:13)
[2017-09-21] MEDS: 0.9% NaCl Peripheral Flush Adult/Peds IV ×7 (02:46→18:46)
[2017-09-21] MEDS: diazePAM 5 MG Tablet PO ×4 (02:46→22:18)
[2017-09-21] MEDS: oxyCODONE 5 MG Tablet 10 MG PO ×5 (03:39→20:15)
--- NOTE | 2017-09-21 04:15 | PCM.RX.CS ---
Consult Pharmacy has been consulted to manage selected antiobiotic: Vancomycin Type of Consult: Follow-up Labs: Sodium 140 mmol/L (136-145) 09/20/17 05:20 Potassium 4.4 mmol/L (3.5-5.1) 09/20/17 05:20 Chloride 110 mmol/L (98-107) H 09/20/17 05:20 Carbon Dioxide 21.0 mmol/L (21.0-32.0) 09/20/17 05:20 Anion Gap 9 (5-15) 09/20/17 05:20 BUN 12 mg/dL (7-18) 09/20/17 05:20 Creatinine 0.78 mg/dL (0.55-1.02) 09/20/17 05:20 Est GFR (MDRD) Af Amer 101 mL/min (>60) 09/20/17 05:20 Est GFR (MDRD) Non-Af 84 mL/min (>60) 09/20/17 05:20 BUN/Creatinine Ratio 15.4 RATIO (10-20) 09/20/17 05:20 Glucose 148 mg/dL (74-106) H 09/20/17 05:20 Vancomycin Trough 10.9 ug/mL (5.0-15.0) 09/20/17 20:10 Microbiology: Microbiology 09/19/17 Unknown Tissue - Breast Gram Stain - Final 09/19/17 Unknown Tissue - Breast Wound Culture - Preliminary No growth-Final to follow Goal Trough: 10-15 mcg/mL Pharmacy Plan for Drug Dosing: Pharmacy Service will continue to monitor and adjust dosing as required. Follow-Up Labs: Trough Vancomycin Labs to be done on [date and time ordered]: 09/24/17
[2017-09-21] MEDS: Sertraline 50 MG Tablet 150 MG PO (05:31)
[2017-09-21] MEDS: Enoxaparin 30 MG/0.3 ML Syringe SC (05:32)
[2017-09-21 05:57] LABS: Hematocrit 27.9 % (37-47); Hemoglobin 9.5 g/dl (12.0-15.0); Mean Corp Hgb Conc 34.1 g/gl (32-36); Mean Corpuscular Hgb 27.7 pg (27.0-32.0); Mean Corpuscular Volume 81.3 fL (81-99); Mean Platelet Vol. 9.5 fl (6.2-12.0); Platelet Count 197 K/mm3 (150-450); RBC Distribution Width CV 15.8 % (11.6-14.6); RBC Distribution Width SD 45.2 fl (35.1-43.9); Red Blood Count 3.43 M/mm3 (4.2-5.4); White Blood Count 9.4 K/mm3 (4.4-11.0)
[2017-09-21 06:05] LABS: Scan Indicated on CBC? Y/N NO
[2017-09-21 06:16] LABS: Anion Gap 7 (5-15); BUN 15 mg/dL (7-18); BUN/Creat Ratio 24.4 RATIO (10-20); Calcium,Total 8.3 mg/dL (8.5-10.1); Chloride 108 mmol/L (98-107); Creatinine, Serum 0.61 mg/dL (0.55-1.02); EST Glomerular Filtration Rate 110 mL/min (>60); Est Glom Filt Rate - Afr Amer 133 mL/min (>60); Estimated Creatinine Clearance 85.11 ml/min; Glucose 125 mg/dL (74-106); Potassium 3.8 mmol/L (3.5-5.1); Sodium Level 143 mmol/L (136-145)
[2017-09-21 08:00] VITALS: BP 109/63; PULSE 104; RESP 16; TEMP 37.2; O2SAT 99
[2017-09-21] MEDS: DiphenhydrAMINE 50 MG/ML Syringe IV ×4 (08:08→18:46)
[2017-09-21] MEDS: Lactated Ringers 1,000 ML 60 ML IV (08:09)
[2017-09-21] MEDS: Docusate Sodium 100 MG Capsule PO ×2 (08:23→22:18)
[2017-09-21] MEDS: levoFLOXacin IV 500 MG/100 ML BAG 100 MG IV (10:36)
[2017-09-21 10:47] VITALS: BP 89/51; PULSE 115; RESP 16; TEMP 36.6; O2SAT 97
--- NOTE | 2017-09-21 11:25 | CASEMGMT ---
DOUGIE GALEANO Face to Face with patient for initial transition planning/care coordination assessment. DOUGIE GALEANO introduced self and role at [facility]. Patient lying in bed, alert and oriented, mother at bedside. Patient willing to participate in assessment and is able to answer all questions appropriately. Care providers, pharmacy, and demographics verified. Patient lives alone in 1 story apartment. Patient denies need for additional DME. Pt wishes to discharge home with resumption of HHC with [facility]. Patient states she has no further needs or concerns at this time. CM to follow for discharge planning needs that may arise. Disposition Plan: Patient to discharge home with HHC, family support, and follow-up plans in place.
[2017-09-21 12:00] VITALS: BP 113/68; PULSE 107; RESP 16; TEMP 36.5; O2SAT 98
[2017-09-21] MEDS: morphine 10 MG/ML Syringe 6 MG IV ×2 (13:59→18:46)
--- NOTE | 2017-09-21 14:59 | CHAPLAIN ---
Type of Pastoral Visit _x__ Initial Visit ___ Follow-up Visit ___ On-call Visit ___ General Patient Visit ___ Spiritual Assessment ___ Family Conference ___ Bereavement ___ Rapid Response ___ Code Blue ___ Other (describe below) Pastoral Care Referral From _x__ Patient ___ Family ___ Nurse ___ Physician ___ Etiology Teacher ___ Tobacco Cloth Reclaimer ___ Other (describe below) Sacrament/Intervention _x__ Active listening ___ Anointing ___ Sabianist _x__ Bereavement ___ Communion ___ Zonia exploration ___ ___ Life review _x__ Prayer ___ Reconciliation ___ Sacrament of Sick _x__ Supportive presence ___ Wedding ___ Other (describe below) Pastoral Comments patient dealing with her surgery, of father while she was a patient here previously (has not had time to grieve and could not attend his ), and son who is drug addict and now in a treatment center; pt requested spiritual support and prayer; pt expresses optimism about her future overcoming breast cancer
[2017-09-21 16:38] VITALS: BP 124/76; PULSE 105; RESP 16; TEMP 36.9; O2SAT 100
[2017-09-21] MEDS: hydrOXYzine PAM 25 MG Capsule PO (19:33)
--- NOTE | 2017-09-21 20:17 | PN.SURG_ITS ---
Subjective: Postop #2 Patient has incisional pain. Also has some itching that is a little better with Benadryl. - Physical Exam General: Alert, Oriented x3 HEENT: PERRLA, EOMI Oral: Moist Mucosa Neck: Supple Abdomen: Soft, Non-Distended Extremities: No clubbing, No cyanosis, Edema - mild edema in lower extremities. Skin: Ulcer/ Wound - right back wound is stable. No bleeding noted. Muscle viable. Redressed the wound with Silver dressing. VAC was not placed because of visible presence of the drain in the back wound. There are two drains in the right breast. Will pull the one that is visible in the back wound so she can get the VAC applied before going home., Incision - right breast incisions are dry and intact. Flap is soft and pink and viable and healing satisfactory. No evidence of vascular compromise except for small amount of bruising at the distal end of the flap located adjacent to the TRAM flap. Will observe. No clinical evidence of hematoma. Neurological: Cranial nerves II-XII grossly intact Psych/Mental Status: Normal Affect, Appropriate Vital Signs Temp Pulse Resp BP Pulse Ox 98.5 F 105 H 16 124/76 H 100 09/21/17 16:38 09/21/17 16:38 09/21/17 16:38 09/21/17 16:38 09/21/17 16:38 Oxygen Delivery Method Room Air Weight: 176 lb 12.972 oz Body Mass Index (BMI) 33.3 Intake and Output for Last 24 Hours 09/19/17 09/20/17 09/21/17 23:59 23:59 23:59 Intake Total 3500 / 3500 5914 / 5914 3202 / 3202 Output Total 1500 / 1500 6410 / 6410 3237 / 3237 Balance 1999 -496 / -496 -35 / -35 Drainage 310 ml yesterday, 62 ml today. Microbiology Past 72 Hours 09/19/17 Unknown Gram Stain - Final Tissue - Breast Wound Culture - Preliminary No growth-Final to follow Anaerobic Culture - Preliminary No growth in 48 hours. Laboratory Tests Past 24 Hrs 09/20/17 09/21/17 09/21/17 20:10 05:30 05:30 WBC 9.4 RBC 3.43 L Hgb 9.5 L Hct 27.9 L MCV 81.3 MCH 27.7 MCHC 34.1 RDW 15.8 H RDW Differential 45.2 H Plt Count 197 MPV 9.5 Sodium 143 Potassium 3.8 Chloride 108 H Carbon Dioxide 28.0 Anion Gap 7 BUN 15 Creatinine 0.61 Estim Creat Clear Calc 85.11 Est GFR (MDRD) Af Amer 133 Est GFR (MDRD) Non-Af 110 BUN/Creatinine Ratio 24.4 H Glucose 125 H Calcium 8.3 L Vancomycin Trough 10.9 Medical Necessity - Tobacco Use Smoking Status: Former smoker Assessment/Plan All Active Problems (Last Updated 09/01/17 @ 21:19 by Eveline Chen DO) Deformity of reconstructed breast (Acute) Postoperative hematoma of subcutaneous tissue following non-dermatologic procedure (Acute) Hematoma of breast (Acute) Partial loss of skin graft (Acute) Medical management (Acute) Disproportion of reconstructed breast (Acute) 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 2. Right breast cancer. 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 5. Disproportion reconstructed breasts. 6. Late effect radiation right breast. 7. 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 8. Compromised TRAM flap right breast reconstruction with partial loss. 9. History of hematoma right breast reconstruction and chest wall. 10. Estrogen receptor status negative. 11. Former smoker. 12. Anemia of chronic disease, acute on chronic. Right breast incisions are dry and intact. Flap is pink and soft and viable and healing satisfactory. No evidence of vascular compromise except for small area of bruising at the distal end of the flap. Will observe. No clinical evidence of hematoma. Keep head elevated. Right back wound is stable with no bleeding. Redressed with Silver gauze. The VAC was not applied because of the presence of the drain in the back wound. There are two drains in the right breast. I will pull the one that is visible in the back wound tomorrow so the VAC can be applied before she goes home. Prealbumin is 21.3. Encourage nutritional supplementation with protein to help the healing process. Operative culture is negative thus far. Continue Vancomycin and Levaquin for previous culture of Acinetobacter and MRSE. Hgb drifted a little lower from 10.7 to 9.5. She has anemia of chronic disease , acute of chronic. There was some blood loss at surgery (200 ml) combined with IV dilution with positive I's/O's of about 1500 ml, which can explain the decrease. There is no evidence of active bleeding in the wounds. Will recheck tomorrow. Will start Iron supplementation. At discharge, would like to continue HBO treatments. Will also need [facility]up [facility] for her right back wound.
[2017-09-21 22:15] VITALS: BP 115/64; PULSE 114; RESP 16; TEMP 36.5; O2SAT 96
[2017-09-21] MEDS: traZODone 50 MG Tablet PO (22:18)
[2017-09-21] MEDS: Morphine 4 MG/ML Syringe IV (22:18)
[2017-09-22] MEDS: 0.9% NaCl Peripheral Flush Adult/Peds IV ×3 (03:45→18:32)
[2017-09-22] MEDS: Lactated Ringers 1,000 ML 60 ML IV ×2 (03:45→20:13)
[2017-09-22] MEDS: Morphine 4 MG/ML Syringe IV ×2 (03:45→18:32)
[2017-09-22 04:00] VITALS: BP 104/57; PULSE 104; RESP 16; TEMP 36.8; O2SAT 98
[2017-09-22] MEDS: Enoxaparin 30 MG/0.3 ML Syringe SC (06:19)
[2017-09-22] MEDS: Sertraline 50 MG Tablet 150 MG PO (06:19)
[2017-09-22] MEDS: oxyCODONE 5 MG Tablet 10 MG PO ×4 (06:20→20:12)
[2017-09-22 06:33] LABS: Hematocrit 27.5 % (37-47); Hemoglobin 9.2 g/dl (12.0-15.0); Mean Corp Hgb Conc 33.5 g/gl (32-36); Mean Corpuscular Hgb 27.6 pg (27.0-32.0); Mean Corpuscular Volume 82.6 fL (81-99); Mean Platelet Vol. 9.5 fl (6.2-12.0); Platelet Count 195 K/mm3 (150-450); RBC Distribution Width CV 15.8 % (11.6-14.6); RBC Distribution Width SD 45.9 fl (35.1-43.9); Red Blood Count 3.33 M/mm3 (4.2-5.4); White Blood Count 4.9 K/mm3 (4.4-11.0)
[2017-09-22 06:34] LABS: Scan Indicated on CBC? Y/N NO
[2017-09-22 06:48] LABS: Anion Gap 7 (5-15); BUN 19 mg/dL (7-18); BUN/Creat Ratio 26.1 RATIO (10-20); Chloride 108 mmol/L (98-107); Creatinine, Serum 0.73 mg/dL (0.55-1.02); EST Glomerular Filtration Rate 91 mL/min (>60); Est Glom Filt Rate - Afr Amer 110 mL/min (>60); Estimated Creatinine Clearance 71.12 ml/min; Glucose 110 mg/dL (74-106); Potassium 3.7 mmol/L (3.5-5.1); Sodium Level 142 mmol/L (136-145)
[2017-09-22] MEDS: Iron Polysaccharide Complex 150 MG CAPSULE PO (08:46)
[2017-09-22] MEDS: diazePAM 5 MG Tablet PO ×3 (08:46→20:13)
[2017-09-22 10:41] VITALS: BP 103/64; PULSE 110; RESP 16; TEMP 36.8; O2SAT 95
[2017-09-22] MEDS: Docusate Sodium 100 MG Capsule PO ×2 (10:44→21:34)
[2017-09-22] MEDS: NIFEdipine 30 MG Tablet PO (10:44)
[2017-09-22] MEDS: levoFLOXacin IV 500 MG/100 ML BAG 100 MG IV (10:44)
[2017-09-22 10:45] VITALS: PULSE 104
--- NOTE | 2017-09-22 14:45 | NURSING ---
Talked with Dr Ahn. Does not want the VAC applied until after the LOIS drain is pulled. States he has been stuck in surgery and will not be up until later this evening. Does not want the VAC applied until tomorrow. Let Dr Ahn know that the home VAC has been approved. states he will most likely keep her here until Monday since she has been painful. Dunia, aquatic physiotherapist aware.
[2017-09-22 15:40] VITALS: BP 105/58; PULSE 103; RESP 16; TEMP 37.1; O2SAT 98
--- NOTE | 2017-09-22 18:43 | PCM.PN.SRG ---
Subjective: Postop #3 Patient is having intermittent pain with spasm. Itching is better. - Physical Exam General: Alert, Oriented x3 HEENT: PERRLA, EOMI Oral: Moist Mucosa Neck: Supple Abdomen: Soft, Non-Distended Extremities: No clubbing, No cyanosis, Edema - mild edema in lower extremities. Skin: Ulcer/ Wound - right back wound is stable. No bleeding noted. Muscle viable. Redressed the wound with Silver dressing. VAC was not placed because of visible presence of the drain in the back wound. There are two drains in the right breast. The one drain that is visible was pulled today so the VAC can be applied tomorrow., Incision - right breast incisions are dry and intact. Flap is soft and pink and viable and healing satisfactory. No evidence of vascular compromise except for small amount of bruising at the distal end of the flap located adjacent to the TRAM flap. Will observe. No clinical evidence of hematoma. This area represents the farthest away from the blood supply and would benefit from HBO treatments after discharge. Neurological: Cranial nerves II-XII grossly intact Psych/Mental Status: Normal Affect, Appropriate Vital Signs Temp Pulse Resp BP Pulse Ox 98.7 F 103 H 16 105/58 L 98 09/22/17 15:40 09/22/17 15:40 09/22/17 15:40 09/22/17 15:40 09/22/17 15:40 Oxygen Delivery Method Room Air Weight: 176 lb 12.972 oz Body Mass Index (BMI) 33.3 Intake and Output for Last 24 Hours 09/20/17 09/21/17 09/22/17 23:59 23:59 23:59 Intake Total 5914 / 5914 3202 / 3202 4798 / 4798 Output Total 6410 / 6410 3262 / 3262 2097 / 2097 Balance -496 / -496 -60 / -60 2701 / 2701 Drainage 62 ml yesterday, 97 ml today. Microbiology Past 72 Hours 09/19/17 Unknown Gram Stain - Final Tissue - Breast Wound Culture - Final No growth aerobically. Anaerobic Culture - Preliminary No growth in 48 hours. Laboratory Tests Past 24 Hrs 09/22/17 09/22/17 05:25 05:25 WBC 4.9 RBC 3.33 L Hgb 9.2 L Hct 27.5 L MCV 82.6 MCH 27.6 MCHC 33.5 RDW 15.8 H RDW Differential 45.9 H Plt Count 195 MPV 9.5 Sodium 142 Potassium 3.7 Chloride 108 H Carbon Dioxide 27.0 Anion Gap 7 BUN 19 H Creatinine 0.73 Estim Creat Clear Calc 71.12 Est GFR (MDRD) Af Amer 110 Est GFR (MDRD) Non-Af 91 BUN/Creatinine Ratio 26.1 H Glucose 110 H Calcium 8.0 L Medical Necessity - Tobacco Use Smoking Status: Former smoker Assessment/Plan All Active Problems (Last Updated 09/01/17 @ 21:19 by Eveline Chen DO) Deformity of reconstructed breast (Acute) Postoperative hematoma of subcutaneous tissue following non-dermatologic procedure (Acute) Hematoma of breast (Acute) Partial loss of skin graft (Acute) Medical management (Acute) Disproportion of reconstructed breast (Acute) 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 2. Right breast cancer. 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 5. Disproportion reconstructed breasts. 6. Late effect radiation right breast. 7. 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 8. Compromised TRAM flap right breast reconstruction with partial loss. 9. History of hematoma right breast reconstruction and chest wall. 10. Estrogen receptor status negative. 11. Former smoker. 12. Anemia of chronic disease, acute on chronic, stable. Right breast incisions are dry and intact. Flap is pink and soft and viable and healing satisfactory. No evidence of vascular compromise except for small area of bruising at the distal end of the flap. Will observe. No clinical evidence of hematoma. This area represents the farthest away from the blood supply and would benefit from HBO treatments after discharge. Keep head elevated. Right back wound is stable with no bleeding. She has intermittent pain and spasm in the back wound. Will increase the Valium to every 4 hours. Redressed with Silver gauze. The VAC was not applied because of the presence of the drain in the back wound. There are two drains in the right breast. I pulled the one that is visible in the back wound today so the VAC can be applied tomorrow before she goes home. Prealbumin is 21.3. Encourage nutritional supplementation with protein to help the healing process. Operative culture is negative. Continue Vancomycin and Levaquin for previous culture of Acinetobacter and MRSE. Hgb stable at 9.2 from 9.5. She has anemia of chronic disease, acute of chronic. There was some blood loss at surgery (200 ml) combined with IV dilution with positive I's/O's of about 4000 ml, which can explain the decrease. There is no evidence of active bleeding in the wounds. Will recheck tomorrow. She was started on Iron supplementation. At discharge, would like to continue HBO treatments. Will also [facility] for her right back wound.
[2017-09-22 19:58] VITALS: BP 105/63; PULSE 114; RESP 16; TEMP 36.9; O2SAT 99
[2017-09-22] MEDS: traZODone 50 MG Tablet PO (21:34)
[2017-09-23] MEDS: diazePAM 5 MG Tablet PO ×4 (00:24→14:50)
[2017-09-23] MEDS: oxyCODONE 5 MG Tablet 10 MG PO ×5 (00:24→21:45)
[2017-09-23 02:19] VITALS: BP 98/59; PULSE 102; RESP 16; TEMP 37.2; O2SAT 98
[2017-09-23] MEDS: Sertraline 50 MG Tablet 150 MG PO (05:59)
[2017-09-23] MEDS: Enoxaparin 30 MG/0.3 ML Syringe SC (06:00)
[2017-09-23 07:38] VITALS: BP 109/86; PULSE 102; RESP 16; TEMP 37.4; O2SAT 99
[2017-09-23] MEDS: Docusate Sodium 100 MG Capsule PO ×2 (07:42→21:09)
[2017-09-23] MEDS: Iron Polysaccharide Complex 150 MG CAPSULE PO (07:42)
[2017-09-23] MEDS: Morphine 4 MG/ML Syringe IV ×3 (07:46→14:49)
[2017-09-23 08:51] LABS: Hematocrit 26.9 % (37-47); Hemoglobin 8.8 g/dl (12.0-15.0); Mean Corp Hgb Conc 32.7 g/gl (32-36); Mean Corpuscular Hgb 26.6 pg (27.0-32.0); Mean Corpuscular Volume 81.3 fL (81-99); Platelet Count 178 K/mm3 (150-450); RBC Distribution Width CV 15.6 % (11.6-14.6); RBC Distribution Width SD 46.8 fl (35.1-43.9); Red Blood Count 3.31 M/mm3 (4.2-5.4); White Blood Count 4.1 K/mm3 (4.4-11.0)
[2017-09-23 08:53] LABS: Scan Indicated on CBC? Y/N NO
[2017-09-23] MEDS: levoFLOXacin IV 500 MG/100 ML BAG 100 MG IV (09:08)
[2017-09-23 09:19] LABS: Anion Gap 7 (5-15); BUN 16 mg/dL (7-18); BUN/Creat Ratio 19.3 RATIO (10-20); Calcium,Total 7.9 mg/dL (8.5-10.1); Chloride 102 mmol/L (98-107); Creatinine, Serum 0.83 mg/dL (0.55-1.02); EST Glomerular Filtration Rate 78 mL/min (>60); Est Glom Filt Rate - Afr Amer 94 mL/min (>60); Estimated Creatinine Clearance 62.55 ml/min; Glucose 260 mg/dL (74-106); Potassium 3.6 mmol/L (3.5-5.1); Sodium Level 137 mmol/L (136-145)
[2017-09-23 13:40] VITALS: BP 107/71; PULSE 111; RESP 18; TEMP 37; O2SAT 100
--- NOTE | 2017-09-23 14:42 | PN.SURG_ITS ---
Subjective: Postop #4 Patient feeling little better. The added Valium has helped her spasm. - Physical Exam General: Alert, Oriented x3 HEENT: PERRLA, EOMI Oral: Moist Mucosa Neck: Supple Abdomen: Soft, Non-Distended Skin: Ulcer/ Wound - right back wound is stable. No bleeding noted. Muscle viable. The VAC will be applied today now that the visible drain has been removed., Incision - right breast incisions are dry and intact. Flap is soft and pink and viable and healing satisfactory. No evidence of vascular compromise except for small amount of bruising at the distal end of the flap located adjacent to the TRAM flap. Less bruising is seen today. Will observe. No clinical evidence of hematoma. This area represents the farthest away from the blood supply and would benefit from HBO treatments after discharge. Lymphatic: No Cervical, Supraclavicular, or Inguinal Adenopathy Neurological: Cranial nerves II-XII grossly intact Psych/Mental Status: Normal Affect, Appropriate Vital Signs Temp Pulse Resp BP Pulse Ox 98.6 F 111 H 18 107/71 100 09/23/17 13:40 09/23/17 13:40 09/23/17 13:40 09/23/17 13:40 09/23/17 13:40 Oxygen Delivery Method Room Air Weight: 176 lb 12.972 oz Body Mass Index (BMI) 33.3 Intake and Output for Last 24 Hours 09/21/17 09/22/17 09/23/17 23:59 23:59 23:59 Intake Total 3202 / 3202 4798 / 4798 2365 / 2365 Output Total 3262 / 3262 2097 / 2097 140 / 140 Balance -60 / -60 2701 / 2701 2225 / 2225 Drainage 97 ml yesterday, 140 ml today. Microbiology Past 72 Hours 09/19/17 Unknown Gram Stain - Final Tissue - Breast Wound Culture - Final No growth aerobically. Anaerobic Culture - Preliminary No growth in 48 hours. Laboratory Tests Past 24 Hrs 09/23/17 09/23/17 08:30 08:30 WBC 4.1 L RBC 3.31 L Hgb 8.8 L Hct 26.9 L MCV 81.3 MCH 26.6 L MCHC 32.7 RDW 15.6 H RDW Differential 46.8 H Plt Count 178 MPV 9.0 Sodium 137 Potassium 3.6 Chloride 102 Carbon Dioxide 28.0 Anion Gap 7 BUN 16 Creatinine 0.83 Estim Creat Clear Calc 62.55 Est GFR (MDRD) Af Amer 94 Est GFR (MDRD) Non-Af 78 BUN/Creatinine Ratio 19.3 Glucose 260 H Calcium 7.9 L Medical Necessity - Tobacco Use Smoking Status: Former smoker Assessment/Plan All Active Problems (Last Updated 09/01/17 @ 21:19 by Eveline Chen DO) Deformity of reconstructed breast (Acute) Postoperative hematoma of subcutaneous tissue following non-dermatologic procedure (Acute) Hematoma of breast (Acute) Partial loss of skin graft (Acute) Medical management (Acute) Disproportion of reconstructed breast (Acute) 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 2. Right breast cancer. 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 5. Disproportion reconstructed breasts. 6. Late effect radiation right breast. 7. 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 8. Compromised TRAM flap right breast reconstruction with partial loss. 9. History of hematoma right breast reconstruction and chest wall. 10. Estrogen receptor status negative. 11. Former smoker. 12. Anemia of chronic disease, acute on chronic, stable. Right breast incisions are dry and intact. Flap is pink and soft and viable and healing satisfactory. No evidence of vascular compromise except for small area of bruising at the distal end of the flap. Will observe. No clinical evidence of hematoma. This area represents the farthest away from the blood supply and would benefit from HBO treatments after discharge. Keep head elevated. Right back wound is stable with no bleeding. She has intermittent pain and spasm in the back wound. She has noticed an improvement in the spasm with the increased Valium. The VAC will be applied today now that the visible drain has been removed. Prealbumin is 21.3. Encourage nutritional supplementation with protein to help the healing process. Operative culture is negative. Continue Vancomycin and Levaquin for previous culture of Acinetobacter and MRSE. Will send home on po antibiotics until the drain is removed. Hgb shows slight decrease from 9.2 from 8.8. She has anemia of chronic disease , acute of chronic. There was some blood loss at surgery (200 ml) combined with IV dilution with positive I's/O's of about 6000 ml, which can explain the decrease. Will decrease her IV fluids and give her a dose of Lasix. There is no evidence of active bleeding in the wounds. Will recheck tomorrow. She was started on Iron supplementation. At discharge, would like to continue HBO treatments. Will also need followup at [facility] for her right back wound.
--- NOTE | 2017-09-23 16:49 | PCA ---
Informed [facility] that wound vac [id number] was placed on pt on this date. Spoke with Darius, confirmation number is [id number]
[2017-09-23] MEDS: Lactated Ringers 1,000 ML 30 ML IV (17:14)
[2017-09-23] MEDS: Furosemide 20 MG Tablet PO (17:14)
[2017-09-23] MEDS: Morphine 4 MG/ML Syringe 6 MG IV ×2 (17:50→20:52)
[2017-09-23] MEDS: diazePAM 5 MG Tablet 10 MG PO (18:51)
[2017-09-23 20:57] VITALS: BP 97/66; PULSE 110; RESP 16; TEMP 36.7; O2SAT 96
[2017-09-23] MEDS: traZODone 50 MG Tablet PO (21:10)
[2017-09-24] MEDS: Morphine 4 MG/ML Syringe 6 MG IV (00:34)
[2017-09-24] MEDS: diazePAM 5 MG Tablet 10 MG PO ×4 (00:43→18:51)
[2017-09-24 02:50] VITALS: BP 106/70; PULSE 118; RESP 16; TEMP 36.8; O2SAT 96
[2017-09-24] MEDS: oxyCODONE 5 MG Tablet 10 MG PO ×5 (02:53→20:08)
[2017-09-24 06:12] LABS: Hematocrit 28.6 % (37-47); Hemoglobin 9.6 g/dl (12.0-15.0); Mean Corp Hgb Conc 33.6 g/gl (32-36); Mean Corpuscular Volume 80.3 fL (81-99); Mean Platelet Vol. 8.5 fl (6.2-12.0); Platelet Count 186 K/mm3 (150-450); RBC Distribution Width CV 15.4 % (11.6-14.6); RBC Distribution Width SD 45.1 fl (35.1-43.9); Red Blood Count 3.56 M/mm3 (4.2-5.4); White Blood Count 4.3 K/mm3 (4.4-11.0)
[2017-09-24 06:15] LABS: Scan Indicated on CBC? Y/N NO
[2017-09-24] MEDS: Sertraline 50 MG Tablet 150 MG PO (06:42)
[2017-09-24] MEDS: Enoxaparin 30 MG/0.3 ML Syringe SC (06:42)
[2017-09-24 06:43] LABS: Anion Gap 8 (5-15); BUN 19 mg/dL (7-18); BUN/Creat Ratio 30.5 RATIO (10-20); Calcium,Total 8.6 mg/dL (8.5-10.1); Chloride 101 mmol/L (98-107); Creatinine, Serum 0.62 mg/dL (0.55-1.02); EST Glomerular Filtration Rate 109 mL/min (>60); Est Glom Filt Rate - Afr Amer 131 mL/min (>60); Estimated Creatinine Clearance 83.74 ml/min; Glucose 112 mg/dL (74-106); Potassium 3.8 mmol/L (3.5-5.1); Sodium Level 140 mmol/L (136-145)
[2017-09-24] MEDS: Docusate Sodium 100 MG Capsule PO ×2 (08:06→22:10)
[2017-09-24] MEDS: Iron Polysaccharide Complex 150 MG CAPSULE PO (08:06)
[2017-09-24 08:14] VITALS: BP 111/72; PULSE 102; RESP 18; TEMP 37.1; O2SAT 95
--- NOTE | 2017-09-24 09:35 | NURSING ---
Patient called out and states that her IV is beginning to swell. This RN entered room to assess pt- noted edematous area below IV site- reddened and warm to touch- pt c/o pain and that IV was leaking. This RN called adverse reaction line to notify of IV infiltration of Vancomycin and called pharmacist Nai to ensure all that was needed was warm compress 20minutes q6h per protocol/ policy. Same confirmed. Patient notified of same. This RN notified main, charge account authorizer of issue of 2 IV's infiltrating and decided to notify Dr. Ahn- to see if he would like picc or midline. Dr. Ahn returned call at this time- states to d/c IV and not insert any other device. States he is changing meds to PO
[2017-09-24] MEDS: levoFLOXacin 500 MG Tablet PO (12:07)
--- NOTE | 2017-09-24 13:33 | PN.SURG_ITS ---
Subjective: Postop #5 Patient did some extra walking today and has noticed increased pain in her incisions and VAC area. Her IV infiltrated. Will switch her to po antibiotics. Told her that IM analgesia is available if needed. - Physical Exam General: Alert, Oriented x3 HEENT: PERRLA, EOMI Oral: Moist Mucosa Neck: Supple Abdomen: Soft, Non-Distended Skin: Ulcer/ Wound - right back wound is stable. The VAC is in place. Minimal drainage is in the canister., Incision - right breast incisions are dry and intact. Flap is soft and pink and viable and healing satisfactory. No evidence of vascular compromise except for small amount of bruising at the distal end of the flap located adjacent to the TRAM flap. Less bruising is seen today. Will observe. No clinical evidence of hematoma. This area represents the farthest away from the blood supply and would benefit from HBO treatments after discharge. Neurological: Cranial nerves II-XII grossly intact Psych/Mental Status: Normal Affect, Appropriate Vital Signs Temp Pulse Resp BP Pulse Ox 98.8 F 102 H 18 111/72 95 09/24/17 08:14 09/24/17 08:14 09/24/17 08:14 09/24/17 08:14 09/24/17 08:14 Oxygen Delivery Method Room Air Weight: 176 lb 12.972 oz Body Mass Index (BMI) 33.3 Intake and Output for Last 24 Hours 09/22/17 09/23/17 09/24/17 23:59 23:59 23:59 Intake Total 4798 / 4798 3743 / 3743 1315 / 1315 Output Total 2097 / 2097 145 / 145 2014 / 2014 Balance 2701 / 2701 3598 / 3598 -700 / -700 Drainage 145 ml yesterday, 43 ml today. Microbiology Past 72 Hours 09/19/17 Unknown Gram Stain - Final Tissue - Breast Wound Culture - Final No growth aerobically. Anaerobic Culture - Preliminary No growth in 48 hours. Laboratory Tests Past 24 Hrs 09/24/17 09/24/17 06:00 06:00 WBC 4.3 L RBC 3.56 L Hgb 9.6 L Hct 28.6 L MCV 80.3 L MCH 27.0 MCHC 33.6 RDW 15.4 H RDW Differential 45.1 H Plt Count 186 MPV 8.5 Sodium 140 Potassium 3.8 Chloride 101 Carbon Dioxide 31.0 Anion Gap 8 BUN 19 H Creatinine 0.62 Estim Creat Clear Calc 83.74 Est GFR (MDRD) Af Amer 131 Est GFR (MDRD) Non-Af 109 BUN/Creatinine Ratio 30.5 H Glucose 112 H Calcium 8.6 Medical Necessity - Tobacco Use Smoking Status: Former smoker Assessment/Plan All Active Problems (Last Updated 09/01/17 @ 21:19 by Eveline Chen DO) Deformity of reconstructed breast (Acute) Postoperative hematoma of subcutaneous tissue following non-dermatologic procedure (Acute) Hematoma of breast (Acute) Partial loss of skin graft (Acute) Medical management (Acute) Disproportion of reconstructed breast (Acute) 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 2. Right breast cancer. 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 5. Disproportion reconstructed breasts. 6. Late effect radiation right breast. 7. 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 8. Compromised TRAM flap right breast reconstruction with partial loss. 9. History of hematoma right breast reconstruction and chest wall. 10. Estrogen receptor status negative. 11. Former smoker. 12. Anemia of chronic disease, acute on chronic, stable. Right breast incisions are dry and intact. Flap is pink and soft and viable and healing satisfactory. No evidence of vascular compromise except for small area of bruising at the distal end of the flap. Will observe. No clinical evidence of hematoma. This area represents the farthest away from the blood supply and would benefit from HBO treatments after discharge. Keep head elevated. Right back wound is stable with no bleeding. She has intermittent pain and spasm in the back wound. She has noticed an improvement in the spasm with the increased Valium. The VAC is in place. Minimal drainage in the canister. Prealbumin is 21.3. Encourage nutritional supplementation with protein to help the healing process. Operative culture is negative. Had been on Vancomycin and Levaquin for previous culture of Acinetobacter and MRSE. Her IV came out. Will keep it out and proceed with po analgesia and also IM if needed. Will change to po antibiotics with Levaquin. Will send home on po Levaquin until the drain is removed. Hgb has improved from 8.8 to 9.6 after some diuresis with Lasix. She has anemia of chronic disease, acute of chronic. There was some blood loss at surgery ( 200 ml) combined with IV dilution with positive I's/O's of about 6000 ml, which can explain the decrease. Continue Iron supplementation. At discharge, would like to continue HBO treatments. Will also need followup at the [facility] for her right back wound.
[2017-09-24 14:00] VITALS: BP 111/72; PULSE 118; RESP 18; TEMP 36.3; O2SAT 98
[2017-09-24] MEDS: Morphine 4 MG/ML Syringe 6 MG IM ×3 (14:28→22:10)
[2017-09-24 19:51] VITALS: BP 107/70; PULSE 114; RESP 16; TEMP 36.6; O2SAT 99
[2017-09-24 19:53] VITALS: PULSE 114
[2017-09-24 22:08] VITALS: BP 115/74; PULSE 116; RESP 18; O2SAT 97
[2017-09-24] MEDS: traZODone 50 MG Tablet PO (22:10)
[2017-09-25] MEDS: oxyCODONE 5 MG Tablet 10 MG PO ×3 (00:17→10:28)
[2017-09-25] MEDS: diazePAM 5 MG Tablet 10 MG PO ×3 (00:54→14:00)
[2017-09-25] MEDS: Morphine 4 MG/ML Syringe 6 MG IM ×2 (03:04→11:44)
[2017-09-25 03:09] VITALS: BP 108/70; PULSE 110; RESP 16; TEMP 36.9; O2SAT 92
[2017-09-25] MEDS: Enoxaparin 30 MG/0.3 ML Syringe SC (06:21)
[2017-09-25] MEDS: levoFLOXacin 500 MG Tablet PO (06:21)
[2017-09-25] MEDS: Sertraline 50 MG Tablet 150 MG PO (06:22)
[2017-09-25 07:40] VITALS: BP 92/34; PULSE 108; RESP 16; TEMP 36.9; O2SAT 93
[2017-09-25 09:40] VITALS: BP 107/67; PULSE 107; RESP 14; TEMP 36.8; O2SAT 96
[2017-09-25] MEDS: Docusate Sodium 100 MG Capsule PO (09:40)
[2017-09-25] MEDS: Iron Polysaccharide Complex 150 MG CAPSULE PO (09:40)
--- NOTE | 2017-09-25 11:47 | NURSING ---
wound photo: right chest
--- NOTE | 2017-09-25 11:47 | NURSING ---
wound photo: right back
--- NOTE | 2017-09-25 12:32 | PN.SURG_ITS ---
Subjective: Postop #6 Patient is resting comfortably. She notices the VAC pain. She is anxious to go home. - Physical Exam General: Alert, Oriented x3 HEENT: PERRLA, EOMI Oral: Moist Mucosa Neck: Supple Abdomen: Soft, Non-Distended Skin: Ulcer/ Wound - right back wound is stable. Good granulation tissue seen. The VAC was changed today and was painful., Incision - right breast incisions are dry and intact. Flap is soft and pink and viable and healing satisfactory. No evidence of vascular compromise except for small amount of bruising at the distal end of the flap located adjacent to the TRAM flap. Less bruising is seen today. Will observe. No clinical evidence of hematoma. This area represents the farthest away from the blood supply and would benefit from HBO treatments after discharge. Neurological: Cranial nerves II-XII grossly intact Psych/Mental Status: Normal Affect, Appropriate Vital Signs Temp Pulse Resp BP Pulse Ox 98.2 F 107 H 14 107/67 96 09/25/17 09:40 09/25/17 09:40 09/25/17 09:40 09/25/17 09:40 09/25/17 09:40 Oxygen Delivery Method Room Air Weight: 176 lb 12.972 oz Body Mass Index (BMI) 33.3 Intake and Output for Last 24 Hours 09/23/17 09/24/17 09/25/17 23:59 23:59 23:59 Intake Total 3743 / 3743 1815 / 1815 1450 / 1450 Output Total 145 / 145 2043 / 2043 515 / 515 Balance 3598 / 3598 -228 / -228 935 / 935 Drainage 43 ml yesterday, 15 ml today. Microbiology Past 72 Hours 09/19/17 Unknown Gram Stain - Final Tissue - Breast Wound Culture - Final No growth aerobically. Anaerobic Culture - Final No growth in 5 days. 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 2. Right breast cancer. 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 5. Disproportion reconstructed breasts. 6. Late effect radiation right breast. 7. 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 8. Compromised TRAM flap right breast reconstruction with partial loss. 9. History of hematoma right breast reconstruction and chest wall. 10. Estrogen receptor status negative. 11. Former smoker. 12. Anemia of chronic disease, acute on chronic, stable. Right breast incisions are dry and intact. Flap is pink and soft and viable and healing satisfactory. No evidence of vascular compromise except for small area of bruising at the distal end of the flap. Will observe. No clinical evidence of hematoma. This area represents the farthest away from the blood supply and would benefit from HBO treatments after discharge. Keep head elevated. Right back wound is stable with no bleeding. She has intermittent pain and spasm in the back wound. She has noticed an improvement in the spasm with the increased Valium. The VAC was changed today. It was painful but tolerable. She is anxious to go home. It will be changed three times per week at 150 mmHg continuous suction. Prealbumin is 21.3. Encourage nutritional supplementation with protein to help the healing process. Operative culture is negative. Had been on Vancomycin and Levaquin for previous culture of Acinetobacter and MRSE. Her IV came out. She was started on po Levaquin and will continue that at home until the drain is removed. Hgb has improved from 8.8 to 9.6 after some diuresis with Lasix. She has anemia of chronic disease, acute of chronic. There was some blood loss at surgery ( 200 ml) combined with IV dilution with positive I's/O's of about 6000 ml, which can explain the decrease. Continue Iron supplementation. Discharge home today. Would like to continue HBO treatments later this week. Will also need followup at the [facility] for her right back wound. Will be seen at [facility] in 2 weeks. Will see me in the office in one week. Wrote scripts for Levaquin for 14 days. Wrote scripts for Percocet for pain (60 tabs) and for Valium for spasm, 10 mg, ( 30 tabs). Wrote scripts for Phenergan for nausea (30 tabs) and a refill and for Colace for constipation (60 tabs). Wrote script for Iron supplement (30 tabs and 2 refills.
--- NOTE | 2017-09-25 12:37 | PCM.DC ---
You will use the following diet at home:: No restrictions, Other - encourage nutritional supplementation with protein to help the healing process. Discharge Activity: May not drive while taking narcotic pain medications., May Not Shower - until the drain is removed and then on the days the vac is changed., - - keep head elevated. no heavy lifting. May resume sexual activity in: 10-14 days Weight Bearing Status: Weight bearing as tolerated Lifting Restrictions: 20 lbs. Keep extremity elevated above heart level: - - elevate head. Call your doctor if your incision/area has: Continuous Slow Oozing, Sudden Increased Bleeding, Increased Pain/ Swelling, Increased Redness, Foul Smelling Discharge, Swelling at the incision site Call your doctor if you observe: Fever of 101 or Higher, Coldness, Increased Pain, Shortness of breath, Chest pain, Calf discomfort, Uncontrolled pain Suture Line Care: - - dry dressings daily. vac changes to back three times per week at 150 mmHg continuous suction. Change Dressing in (Days):: 1 - dry dressings daily. vac changes three times per week. Cleanse incision/area with: - - may get incisions wet in the shower after the drain is removed. after drain removed, may cleanse the back wound with soap and water on the days the vac is changed. Drain: Suction - amrit drain to bulb suction. empty and record output daily. Additional Dressing/Incision Instructions:: Home Health to assist with VAC changes to back three times per week at 150 mmHg continuous suction. may cleanse the back wound with soap and water on the days the vac is changed. Allergies/Adverse Reactions: Allergies POULTRY Allergy (Uncoded 05/19/17 09:45) Anaphylaxis Medications to take at Discharge Sertraline HCl [Zoloft] 150 mg PO DAILY@0600 09/12/17 traZODone [Desyrel] 50 mg PO QHS 09/12/17 Diazepam [Valium] 10 mg PO 4X/DAY PRN PRN 7 Days #30 tab 09/25/17 Docusate Sodium [Colace] 100 mg PO BID #60 cap 09/25/17 Iron Polysaccharide Complex [Ferrex 150] 150 mg PO DAILYCM #30 cap 09/25/17 Oxycodone HCl/Acetaminophen [Percocet 5-325] 1 - 2 tab PO 4X/DAY PRN PRN 7 Days #60 tab 09/25/17 levoFLOXacin tablet [Levaquin tablet] 500 mg PO .QDAILY #14 tab 09/25/17 proMETHazine tablet [Phenergan tablet] 25 mg PO 4X/DAY PRN PRN #30 tab 09/25/17 The following prescriptions were given: Diazepam [Valium] 10 mg PO 4X/DAY PRN PRN 7 Days #30 tab PRN Reason: Spasms Iron Polysaccharide Complex [Ferrex 150] 150 mg PO DAILYCM #30 cap levoFLOXacin tablet [Levaquin tablet] 500 mg PO .QDAILY #14 tab Oxycodone HCl/Acetaminophen [Percocet 5-325] 1 - 2 tab PO 4X/DAY PRN PRN 7 Days #60 tab PRN Reason: Pain proMETHazine tablet [Phenergan tablet] 25 mg PO 4X/DAY PRN PRN #30 tab PRN Reason: NAUSEA/VOMITING Docusate Sodium [Colace] 100 mg PO BID #60 cap Primary Care Physician: Josué Price MD [Primary Care Provider] - Test Results: Test results from this visit will be discussed in further detail at your follow-up appointment, if applicable. Please Follow Up With: Junior Ahn MD - will start HBO this week. When: 10/10/15 at [facility]. Call [phone] for appt. Please Follow Up With: Junior Ahn MD When: one week. call [phone] for appt. Proposed Discharge Date: 09/25/17
--- NOTE | 2017-09-25 12:43 | DCINST_ITS ---
You will use the following diet at home:: No restrictions, Other - encourage nutritional supplementation with protein to help the healing process. Discharge Activity: May not drive while taking narcotic pain medications., May Not Shower - until the drain is removed and then on the days the vac is changed. , - - keep head elevated. no heavy lifting. May resume sexual activity in: 10-14 days Weight Bearing Status: Weight bearing as tolerated Lifting Restrictions: 20 lbs. Keep extremity elevated above heart level: - - elevate head. Call your doctor if your incision/area has: Continuous Slow Oozing, Sudden Increased Bleeding, Increased Pain/ Swelling, Increased Redness, Foul Smelling Discharge, Swelling at the incision site Call your doctor if you observe: Fever of 101 or Higher, Coldness, Increased Pain, Shortness of breath, Chest pain, Calf discomfort, Uncontrolled pain Suture Line Care: - - dry dressings daily. vac changes to back three times per week at 150 mmHg continuous suction. Change Dressing in (Days):: 1 - dry dressings daily. vac changes three times per week. Cleanse incision/area with: - - may get incisions wet in the shower after the drain is removed. after drain removed, may cleanse the back wound with soap and water on the days the vac is changed. Drain: Suction - amrit drain to bulb suction. empty and record output daily. Additional Dressing/Incision Instructions:: Home Health to assist with VAC changes to back three times per week at 150 mmHg continuous suction. may cleanse the back wound with soap and water on the days the vac is changed. Allergies/Adverse Reactions: Allergies POULTRY Allergy (Uncoded 05/19/17 09:45) Anaphylaxis Medications to take at Discharge Sertraline HCl [Zoloft] 150 mg PO DAILY@0600 09/12/17 traZODone [Desyrel] 50 mg PO QHS 09/12/17 Diazepam [Valium] 10 mg PO 4X/DAY PRN PRN 7 Days #30 tab 09/25/17 Docusate Sodium [Colace] 100 mg PO BID #60 cap 09/25/17 Iron Polysaccharide Complex [Ferrex 150] 150 mg PO DAILYCM #30 cap 09/25/17 Oxycodone HCl/Acetaminophen [Percocet 5-325] 1 - 2 tab PO 4X/DAY PRN PRN 7 Days #60 tab 09/25/17 levoFLOXacin tablet [Levaquin tablet] 500 mg PO .QDAILY #14 tab 09/25/17 proMETHazine tablet [Phenergan tablet] 25 mg PO 4X/DAY PRN PRN #30 tab 09/25/17 The following prescriptions were given: Diazepam [Valium] 10 mg PO 4X/DAY PRN PRN 7 Days #30 tab PRN Reason: Spasms Iron Polysaccharide Complex [Ferrex 150] 150 mg PO DAILYCM #30 cap levoFLOXacin tablet [Levaquin tablet] 500 mg PO .QDAILY #14 tab Oxycodone HCl/Acetaminophen [Percocet 5-325] 1 - 2 tab PO 4X/DAY PRN PRN 7 Days #60 tab PRN Reason: Pain proMETHazine tablet [Phenergan tablet] 25 mg PO 4X/DAY PRN PRN #30 tab PRN Reason: NAUSEA/VOMITING Docusate Sodium [Colace] 100 mg PO BID #60 cap Primary Care Physician: Josué Price MD [Primary Care Provider] - Test Results: Test results from this visit will be discussed in further detail at your follow- up appointment, if applicable. Please Follow Up With: Junior Ahn MD - will start HBO this week. [facility] Call [phone] for appt. Please Follow Up With: Junior Ahn MD When: one week. call [phone] for appt. Proposed Discharge Date: 09/25/17
--- NOTE | 2017-09-25 13:42 | CASEMGMT ---
DOUGIE GALEANO called and confirmed with [facility] that they are able to resume care for patient. Discharge instructions and order for HHC and wound vac faxed to [facility] with confirmation received. DOUGIE GALEANO will continue to follow this patient and plan for a safe discharge.
[2017-09-25 14:00] VITALS: BP 122/77; PULSE 113; RESP 18; TEMP 36.7; O2SAT 100
--- NOTE | 2017-09-25 22:32 | PCM.DC.SUM ---
Discharge Date and Diagnosis Date of Admission: 09/19/17 Date of Discharge: 09/25/17 - Primary Discharge Diagnosis Right breast cancer. 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 Anemia of chronic disease, acute on chronic. 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 Disproportion reconstructed breasts. Cancerphobia left breast. Compromised TRAM flap right breast reconstruction with partial loss. Smoker, quit for the surgery. History of hematoma right breast reconstruction and chest wall. Estrogen receptor negative status [ER-]. Hospital Course and Treatment Imaging Results: None. 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 VAC placement Operations: - - 09/19/17 - 1. Revision right breast reconstruction with excision nonhealing radiation ulcer scar contour deformity and lateral rotation TRAM flap. 2. Delayed right breast reconstruction with placement of latissimus dorsi myocutaneous flap. Procedures: Wound vac placement Summary of Care Provided: 47 year old woman presents for further evaluation for breast reconstruction. Her initial bilateral mastectomy was on 01/12/16. She underwent IV chemotherapy initially and this was followed by radiation therapy to the right breast. She finished the radiation therapy in 10/03. She underwent a TRAM flap in 05/07. She developed a hematoma in the TRAM flap followed by some TRAM flap compromise. About 20% of the flap was salvaged after drainage of a postop hematoma and after debridement of some compromise to the TRAM flap. She underwent wound care with the VAC and then with Silver dressing changes along with antibiotics and HBO therapy to try and salvage the right breast reconstruction and chest wall in preparation for further breast reconstruction. She was taken to the OR on 09/19/17 where she underwent revision right breast reconstruction with excision nonhealing radiation ulcer scar contour deformity and lateral rotation TRAM flap and delayed right breast reconstruction with placement of latissimus dorsi myocutaneous flap. She tolerated the procedure well. Her postop care was stable. Her latissimus dorsi flap remained stable throughout her hospital stay. The flap was pink and soft and viable. A small amount of bruising was seen distally that did not progress. She will need HBO treatments after discharge to try and salvage that small area of the flap distally. She required IV analgesia for several days because of the pain. Also needed Valium that had to be increased when the VAC was applied. Before the VAC could be applied, one of the breast drains was visible in the back wound and was removed. Her Hgb had decreased from 10.7 to 8.8 postoperatively. She had some blood loss (200 ml) and IV dilution. She was ahead in her I's/O's by over 6000 ml. She was started on Iron supplementation. She was given a dose of Lasix because of her fluid retention which increased urine output and her Hgb increased to 9.6 for discharge. Her drainage output ranged from 310 ml down to 15 ml on the day of discharge. Will remove the drain in the office. She was weaned to oral analgesics by the 6th postop day and was discharged home in satisfactory condition. She will resume her HBO treatments later this week. [facility]. She will followup in my office in one week. Scripts were written for Percocet for pain (60 tabs) and for Valium for spasm, 10 mg, (30 tabs). Scripts were written for Phenergan for nausea (30 tabs) and a refill and for Colace for constipation (60 tabs). Scripts were written for Levaquin for 14 days and for Iron supplements daily (30 tabs) and 2 refills. Discharge Diet: No Restrictions, - - encourage nutritional supplementation with protein to help the healing process. Discharge Activity: May not drive while taking narcotic pain medications., May Not Shower - until the drain is removed and then on the days the vac is changed., - - keep head elevated. no heavy lifting. May resume sexual activity in: 10-14 days Weight Bearing Status: Weight bearing as tolerated Keep extremity elevated above heart level: - - elevate head. Call your doctor if your incision/area has: Continuous Slow Oozing, Sudden Increased Bleeding, Increased Pain/ Swelling, Increased Redness, Foul Smelling Discharge, Swelling at the incision site Call your doctor if you observe: Fever of 101 or Higher, Coldness, Increased Pain, Shortness of breath, Chest pain, Calf discomfort, Uncontrolled pain Suture Line Care: - - dry dressings daily. vac changes to back three times per week at 150 mmHg continuous suction. Change Dressing in (Days):: 1 - dry dressings daily. vac changes three times per week. Cleanse incision/area with: - - may get incisions wet in the shower after the drain is removed. after drain removed, may cleanse the back wound with soap and water on the days the vac is changed. Drain: Suction - amrit drain to bulb suction. empty and record output daily. Additional Dressing/Incision Instructions:: Home Health to assist with VAC changes to back three times per week at 150 mmHg continuous suction. may cleanse the back wound with soap and water on the days the vac is changed. Home Medications: Medications to take at Discharge Sertraline HCl [Zoloft] 150 mg PO DAILY@0600 09/12/17 traZODone [Desyrel] 50 mg PO QHS 09/12/17 Diazepam [Valium] 10 mg PO 4X/DAY PRN PRN 7 Days #30 tab 09/25/17 Docusate Sodium [Colace] 100 mg PO BID #60 cap 09/25/17 Iron Polysaccharide Complex [Ferrex 150] 150 mg PO DAILYCM #30 cap 09/25/17 Oxycodone HCl/Acetaminophen [Percocet 5-325] 1 - 2 tab PO 4X/DAY PRN PRN 7 Days #60 tab 09/25/17 levoFLOXacin tablet [Levaquin tablet] 500 mg PO .QDAILY #14 tab 09/25/17 proMETHazine tablet [Phenergan tablet] 25 mg PO 4X/DAY PRN PRN #30 tab 09/25/17 fentanyl 50 mcg/hr transdermal patch 1 patch TRANSDERMAL Q72H #5 ea 09/27/17 Following Prescrptions Were Given to Patient: Diazepam [Valium] 10 mg PO 4X/DAY PRN PRN 7 Days #30 tab PRN Reason: Spasms Iron Polysaccharide Complex [Ferrex 150] 150 mg PO DAILYCM #30 cap levoFLOXacin tablet [Levaquin tablet] 500 mg PO .QDAILY #14 tab Oxycodone HCl/Acetaminophen [Percocet 5-325] 1 - 2 tab PO 4X/DAY PRN PRN 7 Days #60 tab PRN Reason: Pain proMETHazine tablet [Phenergan tablet] 25 mg PO 4X/DAY PRN PRN #30 tab PRN Reason: NAUSEA/VOMITING Docusate Sodium [Colace] 100 mg PO BID #60 cap Primary Care Physician: Josué Price MD [Primary Care Provider] - Please Follow Up With: Junior Ahn MD - will start HBO this week. When: 10/10/15 at [facility]. Call [phone] for appt. Please Follow Up With: Junior Ahn MD When: one week. call [phone] for appt. Disposition: Home with Home Health Minutes spent on discharge:: 35 Patient Condition:: Stable Medical Necessity - Tobacco Use Smoking Status: Former smoker Meaningful Use Info Meaningful Use Diagnoses (Choose all that apply): None applicable
--- NOTE | 2017-09-26 00:04 | DS.PCM_ITS ---
Discharge Date and Diagnosis Date of Admission: 09/19/17 Date of Discharge: 09/25/17 - Primary Discharge Diagnosis Right breast cancer. 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 Anemia of chronic disease, acute on chronic. 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 Disproportion reconstructed breasts. Cancerphobia left breast. Compromised TRAM flap right breast reconstruction with partial loss. Smoker, quit for the surgery. History of hematoma right breast reconstruction and chest wall. Estrogen receptor negative status [ER-]. Hospital Course and Treatment Imaging Results: None. 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 VAC placement Operations: - - 09/19/17 - 1. Revision right breast reconstruction with excision nonhealing radiation ulcer scar contour deformity and lateral rotation TRAM flap. 2. Delayed right breast reconstruction with placement of latissimus dorsi myocutaneous flap. Procedures: Wound vac placement Summary of Care Provided: 47 year old woman presents for further evaluation for breast reconstruction. Her initial bilateral mastectomy was on 01/12/16. She underwent IV chemotherapy initially and this was followed by radiation therapy to the right breast. She finished the radiation therapy in 10/03. She underwent a TRAM flap in 05/07. She developed a hematoma in the TRAM flap followed by some TRAM flap compromise. About 20% of the flap was salvaged after drainage of a postop hematoma and after debridement of some compromise to the TRAM flap. She underwent wound care with the VAC and then with Silver dressing changes along with antibiotics and HBO therapy to try and salvage the right breast reconstruction and chest wall in preparation for further breast reconstruction. She was taken to the OR on 09/19/17 where she underwent revision right breast reconstruction with excision nonhealing radiation ulcer scar contour deformity and lateral rotation TRAM flap and delayed right breast reconstruction with placement of latissimus dorsi myocutaneous flap. She tolerated the procedure well. Her postop care was stable. Her latissimus dorsi flap remained stable throughout her hospital stay. The flap was pink and soft and viable. A small amount of bruising was seen distally that did not progress. She will need HBO treatments after discharge to try and salvage that small area of the flap distally. She required IV analgesia for several days because of the pain. Also needed Valium that had to be increased when the VAC was applied. Before the VAC could be applied, one of the breast drains was visible in the back wound and was removed. Her Hgb had decreased from 10.7 to 8.8 postoperatively. She had some blood loss (200 ml) and IV dilution. She was ahead in her I's/O' s by over 6000 ml. She was started on Iron supplementation. She was given a dose of Lasix because of her fluid retention which increased urine output and her Hgb increased to 9.6 for discharge. Her drainage output ranged from 310 ml down to 15 ml on the day of discharge. Will remove the drain in the office. She was weaned to oral analgesics by the 6th postop day and was discharged home in satisfactory condition. She will resume her HBO treatments later this week. She [facility] 2 [facility]. She will followup in my office in one week. Scripts were written for Percocet for pain (60 tabs) and for Valium for spasm, 10 mg, (30 tabs). Scripts were written for Phenergan for nausea (30 tabs) and a refill and for Colace for constipation (60 tabs). Scripts were written for Levaquin for 14 days and for Iron supplements daily ( 30 tabs) and 2 refills. Discharge Diet: No Restrictions, - - encourage nutritional supplementation with protein to help the healing process. Discharge Activity: May not drive while taking narcotic pain medications., May Not Shower - until the drain is removed and then on the days the vac is changed. , - - keep head elevated. no heavy lifting. May resume sexual activity in: 10-14 days Weight Bearing Status: Weight bearing as tolerated Keep extremity elevated above heart level: - - elevate head. Call your doctor if your incision/area has: Continuous Slow Oozing, Sudden Increased Bleeding, Increased Pain/ Swelling, Increased Redness, Foul Smelling Discharge, Swelling at the incision site Call your doctor if you observe: Fever of 101 or Higher, Coldness, Increased Pain, Shortness of breath, Chest pain, Calf discomfort, Uncontrolled pain Suture Line Care: - - dry dressings daily. vac changes to back three times per week at 150 mmHg continuous suction. Change Dressing in (Days):: 1 - dry dressings daily. vac changes three times per week. Cleanse incision/area with: - - may get incisions wet in the shower after the drain is removed. after drain removed, may cleanse the back wound with soap and water on the days the vac is changed. Drain: Suction - amrit drain to bulb suction. empty and record output daily. Additional Dressing/Incision Instructions:: Home Health to assist with VAC changes to back three times per week at 150 mmHg continuous suction. may cleanse the back wound with soap and water on the days the vac is changed. Home Medications: Medications to take at Discharge Sertraline HCl [Zoloft] 150 mg PO DAILY@0600 09/12/17 traZODone [Desyrel] 50 mg PO QHS 09/12/17 Diazepam [Valium] 10 mg PO 4X/DAY PRN PRN 7 Days #30 tab 09/25/17 Docusate Sodium [Colace] 100 mg PO BID #60 cap 09/25/17 Iron Polysaccharide Complex [Ferrex 150] 150 mg PO DAILYCM #30 cap 09/25/17 Oxycodone HCl/Acetaminophen [Percocet 5-325] 1 - 2 tab PO 4X/DAY PRN PRN 7 Days #60 tab 09/25/17 levoFLOXacin tablet [Levaquin tablet] 500 mg PO .QDAILY #14 tab 09/25/17 proMETHazine tablet [Phenergan tablet] 25 mg PO 4X/DAY PRN PRN #30 tab 09/25/17 fentanyl 50 mcg/hr transdermal patch 1 patch TRANSDERMAL Q72H #5 ea 09/27/17 Following Prescrptions Were Given to Patient: Diazepam [Valium] 10 mg PO 4X/DAY PRN PRN 7 Days #30 tab PRN Reason: Spasms Iron Polysaccharide Complex [Ferrex 150] 150 mg PO DAILYCM #30 cap levoFLOXacin tablet [Levaquin tablet] 500 mg PO .QDAILY #14 tab Oxycodone HCl/Acetaminophen [Percocet 5-325] 1 - 2 tab PO 4X/DAY PRN PRN 7 Days #60 tab PRN Reason: Pain proMETHazine tablet [Phenergan tablet] 25 mg PO 4X/DAY PRN PRN #30 tab PRN Reason: NAUSEA/VOMITING Docusate Sodium [Colace] 100 mg PO BID #60 cap Primary Care Physician: Josué Price MD [Primary Care Provider] - Please Follow Up With: Junior Ahn MD - will start HBO this week. When: 10/10/15 at [facility]. Call [phone] for appt. Please Follow Up With: Junior Ahn MD When: one week. call [phone] for appt. Disposition: Home with Home Health Minutes spent on discharge:: 35 Patient Condition:: Stable Medical Necessity - Tobacco Use Smoking Status: Former smoker Meaningful Use Info Meaningful Use Diagnoses (Choose all that apply): None applicable
--- NOTE | 2017-09-26 14:13 | CASEMGMT ---
DOUGIE GALEANO received call from [facility] that they will not be able to see the patient due to their case load already full. DOUGIE GALEANO returned call and spoke to Kennedy Livingston regarding HHC. This DOUGIE GALEANO explained to Kennedy Livingston that setup was confirmed on 09/22 and 09/25 and DOUGIE GALEANO was told that patient was current and discharge orders would only need to be faxed. Kennedy Livingston confirmed that he would talk with his intake team and would also arrange for patient to be seen 09/27 for next wound vac dressing change. DOUGIE GALEANO will complete follow-up phone call with patient later today and update patient regarding HHC setup with [facility].
--- NOTE | 2017-09-27 15:46 | CASEMGMT ---
DOUGIE GALEANO Discharge Follow-up Phone Call: JILL: Barbara Strata: 3 Call Date: 09/27/17 Discharge Date: 09/25/17 Time of Call: 1545 Duration: 3 min Admitting Diagnosis: Right breast Cancer with radiation ulcer DOUGIE GALEANO completed follow-up phone call after recent hospitalization. Patient states that she is sore. Had no questions regarding discharge instructions. States [facility] had not been out to see her today, but they were going to be calling her and should be out tomorrow. Patient states that she was to have HBO and thought wound vac would be changed to day there but she didn't go due to pain.
== END 2017-09-25 15:19 | disposition home health service (06) | DRG 261 ==
LOC: ACINP 06:18 → MS3 12:58
PROVIDERS: Admitting Provider Surgery; Family Provider Internal Medicine; PCP Internal Medicine; Visit Provider Surgery
PROC: 0HRT076 Replacement of Right Breast using Transverse Rectus Abdominis Myocutaneous Flap, Open Approach (ICD-10-PCS; CPT 19361; principal; 2017-09-19 08:15)
DX: L59.8 Other specified disorders of the skin and subcutaneous tissue related to radiation (principal); T84.89XA Other specified complication of internal orthopedic prosthetic devices, implants and grafts, initial encounter; Z87.891 Personal history of nicotine dependence; Z90.13 Acquired absence of bilateral breasts and nipples; Z85.3 Personal history of malignant neoplasm of breast; Y84.2 Radiological procedure and radiotherapy as the cause of abnormal reaction of the patient, or of later complication, without mention of misadventure at the time of the procedure; L90.5 Scar conditions and fibrosis of skin; N65.0 Deformity of reconstructed breast; N65.1 Disproportion of reconstructed breast
CPT/HCPCS: 36415; 80048; 80202; 84134; 85027; 87070; 87075; 87102; 87205; 87206; 87640; 88304; 88305; 88312; 97802; J7120; A4216; J2405

== ENCOUNTER 2017-10-07 20:45 | Emergency (ER) | payer MEDICAID, SELFPAY ==
[2017-10-07 20:45] VITALS: BP 103/67; PULSE 117; RESP 20; TEMP 36.9; O2SAT 96; BMI 34.0
[2017-10-07] MEDS: morphine 8 MG/ML Syringe SC (22:16)
--- NOTE | 2017-10-07 22:45 | ED.DCSUM_ITS ---
- ER Visit Summary Date of Service: 10/07/17 Chief Complaint: Wound VAC issues, blistering History of Present Illness: The patient is a 47 F who complains of pain around her wound VAC. She had this placed 2 weeks ago after a latissimus flap due to a history of breast cancer. Her wound VAC was changed yesterday and after that she has been having a lot of pain around this area. She is wondering if there is some blisters around the edge. This is been followed by Dr. Ahn. She denies any fevers. Physical Examination: Vital signs are reviewed. Back exam reveals a right latissimus wound with a wound VAC in place. Irritated skin around it. No bloody or purulent drainage. It is tender to palpation around the edges. Test Results: None performed Emergency Department Course and Treatment: I discussed this with Dr. Ahn. It looks like the wound VAC is on normal skin around the edges. This is likely irritating the skin. He recommended we change the wound VAC and put a smaller sponge. We will do this and put skin irritant protectant around the wound edges. Dr. Ahn recommended putting Adaptic around the wound edges as well. We will do this and she will follow-up in [address] Ahn Treatment Plan: [] Disposition: Discharge Impression: Wound VAC complications This note was generated with [employer] dictation software. It may contain incorrect words, spelling, and punctuation that were not noted in review of the chart prior to signing ED Disposition - Plan for ED Patient: Chief Complaint: Wound Referrals: Josué Price MD [Primary Care Provider] -
--- NOTE | 2017-10-07 22:45 | ED.DEP ---
ED Disposition - Plan for ED Patient: Disposition: Home or Assisted Living Chief Complaint: Wound Instructions: ED Packing Removal Replacement Referrals: Josué Price MD [Primary Care Provider] -
[2017-10-07 23:40] VITALS: PULSE 85; RESP 17; O2SAT 99
== END 2017-10-07 23:41 | disposition home or self-care (01) ==
PROVIDERS: Emergency Provider Emergency Medicine; Family Provider Internal Medicine; PCP Internal Medicine
DX: T81.89XA Other complications of procedures, not elsewhere classified, initial encounter (principal); Z85.3 Personal history of malignant neoplasm of breast
CPT/HCPCS: 96372; 99282; A4216

== ENCOUNTER → 2017-10-12 12:36 | Outpatient (CLI) | payer MEDICAID, SELFPAY | PROVIDERS: Family Provider Internal Medicine; PCP Internal Medicine; Visit Provider Nurse Practitioner | DX: R00.0 Tachycardia, unspecified (principal) | CPT/HCPCS: 93225; 93226 ==

== ENCOUNTER 2017-10-12 13:00 | Outpatient (RCR) | payer MEDICAID, SELFPAY ==
[2017-09-17 00:41] VITALS: BP 129/68; PULSE 76; RESP 16; TEMP 36.4
[2017-09-29 11:54] VITALS: BP 118/78; PULSE 112; RESP 18; TEMP 37.1
[2017-10-02 13:21] VITALS: BP 118/80; BP 126/95; PULSE 100; PULSE 108; RESP 16; TEMP 36.5; TEMP 36.6
--- NOTE | 2017-10-02 17:05 | PCM.HBO.PN ---
History of Present Illness Date of Service: 10/02/17 Presenting Chief Complaint: Compromised TRAM flap right breast reconstruction with nonhealing radiation wound. SHARON BARRAGAN is a 47 year old currently undergoing hyperbaric oxygen therapy for a compromised TRAM flap right breast reconstruction with nonhealing radiation wound. Progress: Today's session represents a 38 session of hyperbaric oxygen therapy. Patient appears to be tolerating hyperbaric oxygen therapy well. Tolerance of hyperbaric oxygen therapy: Hyperbaric oxygen therapy was administered as per the facility's protocol. Patient tolerated hyperbaric oxygen therapy well, without complaints or complications. Upon emergence from the hyperbaric chamber, the patient's vital signs remained stable. The patient was discharged in good condition. 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 Allergies/Adverse Reactions: Allergies POULTRY Allergy (Uncoded 09/27/17 13:12) Anaphylaxis Home Medications: Ambulatory Orders Medication Instructions Recorded Sertraline HCl [Zoloft] 150 mg PO DAILY@0600 09/12/17 traZODone [Desyrel] 50 mg PO QHS 09/12/17 Diazepam [Valium] 10 mg PO 4X/DAY PRN PRN 7 Days #30 09/25/17 tab Docusate Sodium [Colace] 100 mg PO BID #60 cap 09/25/17 Iron Polysaccharide Complex 150 mg PO DAILYCM #30 cap 09/25/17 [Ferrex 150] Oxycodone HCl/Acetaminophen 1 - 2 tab PO 4X/DAY PRN PRN 7 Days 09/25/17 [Percocet 5-325] #60 tab levoFLOXacin tablet [Levaquin 500 mg PO .QDAILY #14 tab 09/25/17 tablet] proMETHazine tablet [Phenergan 25 mg PO 4X/DAY PRN PRN #30 tab 09/25/17 tablet] fentanyl 50 mcg/hr transdermal 1 patch TRANSDERMAL Q72H #5 ea 09/27/17 patch Maternal Family History: Family History (Last Updated 02/28/17 @ 15:22 by Fernanda Polk) Unknown No problems noted. Family History: Diabetes, Heart Disease Paternal Family History: Family History (Last Updated 02/28/17 @ 15:22 by Fernanda Polk) Unknown No problems noted. Family History: No pertinent history Smoking Status: Former smoker Physical Exam Vital Signs Temp Pulse Resp BP 98 F 108 H 16 126/95 H 10/02/17 13:21 10/02/17 13:21 10/02/17 13:21 10/02/17 13:21 General: Alert, Oriented x3, Cooperative, No apparent distress, Well developed, Well nourished HEENT: Atraumatic, PERRLA, EOMI, Normocephalic Lungs: Normal air movement Psych/Mental Status: Normal Affect, Appropriate, Alert and oriented to time, place, person, mood and affect Assessment/Plan The patient appears to be tolerating hyperbaric oxygen therapy well, which will be continued as per the patient's medical plan.
[2017-10-04 13:10] VITALS: BP 124/80; BP 133/73; PULSE 112; PULSE 97; RESP 16; TEMP 35.9; TEMP 36.5
--- NOTE | 2017-10-04 17:55 | PCM.HBO.PN ---
History of Present Illness Date of Service: 10/04/17 Presenting Chief Complaint: Soft tissue radionecrosis right breast reconstruction. SHARON BARRAGAN is a 47 year old currently undergoing hyperbaric oxygen therapy for soft tissue radionecrosis right breast reconstruction. Progress: Today's hyperbaric oxygen treatment represents her second round and treatment #39. She had HBO treatments before her breast reconstruction surgery and is now having additional HBO treatments after her breast reconstruction surgery. Tolerance of hyperbaric oxygen therapy: Hyperbaric oxygen therapy was administered as per the facility protocol. The patient tolerated hyperbaric oxygen therapy well, without complaints or complications. Upon emergence from the hyperbaric chamber, the patient's vital signs remained stable. The patient was discharged in good condition. 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 Allergies/Adverse Reactions: Allergies POULTRY Allergy (Uncoded 10/07/17 20:50) Anaphylaxis Home Medications: Ambulatory Orders Medication Instructions Recorded Sertraline HCl [Zoloft] 150 mg PO DAILY@0600 09/12/17 traZODone [Desyrel] 50 mg PO QHS 09/12/17 Diazepam [Valium] 10 mg PO 4X/DAY PRN PRN 7 Days #30 09/25/17 tab Docusate Sodium [Colace] 100 mg PO BID #60 cap 09/25/17 Iron Polysaccharide Complex 150 mg PO DAILYCM #30 cap 09/25/17 [Ferrex 150] Oxycodone HCl/Acetaminophen 1 - 2 tab PO 4X/DAY PRN PRN 7 Days 09/25/17 [Percocet 5-325] #60 tab levoFLOXacin tablet [Levaquin 500 mg PO .QDAILY #14 tab 09/25/17 tablet] proMETHazine tablet [Phenergan 25 mg PO 4X/DAY PRN PRN #30 tab 09/25/17 tablet] fentanyl 50 mcg/hr transdermal 1 patch TRANSDERMAL Q72H #5 ea 09/27/17 patch Non-Adherent Bandage [Mepitel] 2 ea TP .QOD #30 bandage 10/04/17 Maternal Family History: Family History (Last Updated 02/28/17 @ 15:22 by Fernanda Polk) Unknown No problems noted. Family History: Diabetes, Heart Disease Paternal Family History: Family History (Last Updated 02/28/17 @ 15:22 by Fernanda Polk) Unknown No problems noted. Family History: No pertinent history Smoking Status: Former smoker Physical Exam Vital Signs Temp Pulse Resp BP 96.7 F L 112 H 16 124/80 H 10/04/17 13:10 10/04/17 13:10 10/04/17 13:10 10/04/17 13:10
[2017-10-05 12:59] VITALS: BP 107/73; BP 123/76; PULSE 116; PULSE 96; RESP 16; TEMP 36.2
--- NOTE | 2017-10-05 17:11 | PCM.HBO.PN ---
History of Present Illness Date of Service: 10/05/17 Presenting Chief Complaint: Compromised TRAM flap right breast reconstruction with nonhealing radiation wound. SHARON BARRAGAN is a 47 year old currently undergoing hyperbaric oxygen therapy for a compromised TRAM flap right breast reconstruction with nonhealing radiation wound. Progress: Patient appears to be tolerating hyperbaric oxygen therapy well. Tolerance of hyperbaric oxygen therapy: Hyperbaric oxygen therapy was administered as per the facility's protocol. Patient tolerated hyperbaric oxygen therapy well, without complaints or complications. Upon emergence from the hyperbaric chamber, the patient's vital signs remained stable. The patient was discharged in good condition. 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 Allergies/Adverse Reactions: Allergies POULTRY Allergy (Uncoded 09/27/17 13:12) Anaphylaxis Home Medications: Ambulatory Orders Medication Instructions Recorded Sertraline HCl [Zoloft] 150 mg PO DAILY@0600 09/12/17 traZODone [Desyrel] 50 mg PO QHS 09/12/17 Diazepam [Valium] 10 mg PO 4X/DAY PRN PRN 7 Days #30 09/25/17 tab Docusate Sodium [Colace] 100 mg PO BID #60 cap 09/25/17 Iron Polysaccharide Complex 150 mg PO DAILYCM #30 cap 09/25/17 [Ferrex 150] Oxycodone HCl/Acetaminophen 1 - 2 tab PO 4X/DAY PRN PRN 7 Days 09/25/17 [Percocet 5-325] #60 tab levoFLOXacin tablet [Levaquin 500 mg PO .QDAILY #14 tab 09/25/17 tablet] proMETHazine tablet [Phenergan 25 mg PO 4X/DAY PRN PRN #30 tab 09/25/17 tablet] fentanyl 50 mcg/hr transdermal 1 patch TRANSDERMAL Q72H #5 ea 07/11/18 patch Non-Adherent Bandage [Mepitel] 2 ea TP .QOD #30 bandage 10/04/17 Maternal Family History: Family History (Last Updated 02/28/17 @ 15:22 by Fernanda Polk) Unknown No problems noted. Family History: Diabetes, Heart Disease Paternal Family History: Family History (Last Updated 02/28/17 @ 15:22 by Fernanda Polk) Unknown No problems noted. Family History: No pertinent history Smoking Status: Former smoker Physical Exam Vital Signs Temp Pulse Resp BP 97.1 F L 116 H 16 123/76 H 10/05/17 12:59 10/05/17 12:59 10/05/17 12:59 10/05/17 12:59 General: Alert, Oriented x3, Cooperative, No apparent distress HEENT: Atraumatic, Normocephalic, TM's Clear Lungs: Clear to auscultation, Normal air movement Cardiovascular: Regular rate, Regular Rhythm Psych/Mental Status: Normal Affect, Appropriate Assessment/Plan The patient appears to be tolerating hyperbaric oxygen therapy well, which will be continued as per the patient's medical plan.
[2017-10-09 08:45] VITALS: BP 109/69; PULSE 127; RESP 20; TEMP 37.8
--- NOTE | 2017-10-09 18:11 | PCM.WC.PN ---
Type of Wound Date of Service: 10/09/17 Chief Complaint: Soft tissue radionecrosis right breast reconstruction and open surgical wound right back. History of Wound: Surgery 09/19/17 - Revision right breast reconstruction with excision nonhealing radiation ulcer scar contour deformity and lateral rotation TRAM flap and delayed right breast reconstruction with placement of latissimus dorsi myocutaneous flap. Wound care - VAC. Operative culture - negative. She was discharged on Levaquin and has finished them now that the drains are removed. Prealbumin from 09/20/17 was 21.3. Encourage nutritional supplementation with protein to help the healing process. Today she denies fever. Her appetite is ok. It was noted she had a heart rate of 125. She is asymptomatic. She was instructed to call her PCP for evaluation and possible consultation with Cardiology. Progress of Wound: Recent surgery on 09/19/17. - Physical Exam Vital Signs Temp Pulse Resp BP 100.0 F H 127 H 20 H 109/69 10/09/17 08:45 10/09/17 08:45 10/09/17 08:45 10/09/17 08:45 Wound Measurements and Assessment WC - Nurse 1 - General Ulcer Measurement Start: 09/29/17 11:53 Freq: Status: Active Protocol: Activity Type Activity Date Activity User E-Sign Co-Sign Detail Recorded Client Recorded Date Recorded By Document 10/09/17 08:45 [id number] 10/09/17 08:50 10/09/17 08:45 Wound Center Nurse 1 [Ulcer Assessment] #2 R Back/Donor Site -Combined with other wound No -Current Size (cm) - Length 18.2 -Current Size (cm) - Width 13.0 -Current Size (cm) - Depth 2.2 -Total Square Cm 236.60 -Photo Taken No -Epithelialization Small 1-33% -Tunneling Yes -Tunneling Position (O'clock) 10 -Tunneling Distance (cm) 3.0 -Undermining/Tunneling No -Circular Undermining No -Classification - Thickness Full Thickness with Exposed Support Structure -Exudate Amt Large (67-100%) -Exudate Type Serosanguineous -Wound Margin Distinct, Outline Attached -Granulation Amt Large (67-100%) -Granulation Quality Red -Slough/Fibrin Yes -Necrosis Amt Small (1-33%) -Necrotic Tissue Type Adherent Slough -Structure Exposed Fascia Muscle Fat Layer Exposed -Moisture (Meghana-wound Skin Appearance No Abnormality ) -Color (Meghana-wound Skin Appearance) No Abnormality -Temperature (Meghana-wound Skin No Abnormality Appearance) (Pt Warm) -Tenderness on Palpation (Meghana-wound Yes Skin Appearance) -Ulcer Cleansing HIBICLENS THEN RINSED WITH NS 0.9% -Foul Odor after Cleansing No -Anesthetic Used 5% Lidocaine Gel #1 Right breast Tram flap failure -Combined with other wound No -Current Size (cm) - Length 0.1 -Current Size (cm) - Width 0.1 -Current Size (cm) - Depth 0.1 -Total Square Cm 0.01 -Photo Taken No -Epithelialization Small 1-33% -Tunneling No -Undermining/Tunneling No -Circular Undermining No -Classification - Thickness Full Thickness without Exposed Support Structure -Exudate Amt Small (1-33%) -Exudate Type Serosanguineous -Wound Margin Distinct, Outline Attached -Granulation Amt Large (67-100%) -Granulation Quality [place] -Slough/Fibrin Yes -Necrosis Amt Small (1-33%) -Necrotic Tissue Type Adherent Slough -Structure Exposed None/Limited to Skin Breakdown -Texture (Meghana-wound Skin Appearance) Localized Edema Scarring -Moisture (Meghana-wound Skin Appearance Dry/Scaly ) -Color (Meghana-wound Skin Appearance) No Abnormality -Temperature (Meghana-wound Skin No Abnormality Appearance) (Pt Warm) -Tenderness on Palpation (Meghana-wound No Skin Appearance) -Ulcer Cleansing Rinsed/ Irrigated with Saline -Foul Odor after Cleansing No [Edema Assessment] -Lower Limb Edema Present No WC - Nurse 2 - General Ulcer CM Notes Start: 09/29/17 11:53 Freq: Status: Active Protocol: Activity Type Activity Date Activity User E-Sign Co-Sign Detail Recorded Client Recorded Date Recorded By Document 10/09/17 09:37 RITA [email or web address] 10/09/17 09:44 RITA 10/09/17 09:37 Wound Center Nurse 2 [Procedure/Treatment] #2 R Back/Donor Site -Time 09:38 -Correct Patient Yes -Correct Side, Site, Position Yes -Correct Procedure Yes -Procedure Performed Yes -Type of Procedure Debridement -Clinical Debridement Muscle -Post Debridement Size (cm) - Length 18.3 -Post Debridement Size (cm) - Width 13.1 -Post Debridement Size (cm) - Depth 2.2 -Total Square Cm 239.73 -Wound/Ulcer Outcome Not Healed -Ulcer Cleansing Rinsed/ Irrigated with Saline -Foul Odor after Cleansing No -Bioengineered Tissue No -Bleeding Controlled with Pressure -Treatment Response Procedure Tolerated Well #1 Right breast Tram flap failure -Correct Patient No -Correct Side, Site, Position No -Correct Procedure No -Procedure Performed No [See Physician Procedure note for Specifics] Pain Scale: 0-10 Numeric [Pain] -Is Patient Pain Free? Yes Debridement Note Post-Debridement Measurements/Treatment WC - Nurse 2 - General Ulcer CM Notes Start: 09/29/17 11:53 Freq: Status: Active Protocol: Activity Type Activity Date Activity User E-Sign Co-Sign Detail Recorded Client Recorded Date Recorded By Document 10/09/17 09:37 RITA [email or web address] 10/09/17 09:44 RITA 10/09/17 09:37 Wound Center Nurse 2 #2 R Back/Donor Site -Time 09:38 -Correct Patient Yes -Correct Side, Site, Position Yes -Correct Procedure Yes -Procedure Performed Yes -Type of Procedure Debridement -Clinical Debridement Muscle -Post Debridement Size (cm) - Length 18.3 -Post Debridement Size (cm) - Width 13.1 -Post Debridement Size (cm) - Depth 2.2 -Total Square Cm 239.73 -Wound/Ulcer Outcome Not Healed -Ulcer Cleansing Rinsed/ Irrigated with Saline -Foul Odor after Cleansing No -Bioengineered Tissue No -Bleeding Controlled with Pressure -Treatment Response Procedure Tolerated Well #1 Right breast Tram flap failure -Correct Patient No -Correct Side, Site, Position No -Correct Procedure No -Procedure Performed No Pain Scale: 0-10 Numeric Is Patient Pain Free? Yes Wound debrided: #2 Right back. Laterality: Right Wound Grade/Stage: 3. Type of Debridement: Excisional debridement Anesthesia Used: 4% Lidocaine Solution Depth: Down to and including healthy tissue, in the subcutaneous layer, to muscle Percentage of wound debrided: 100 Instrument Used: 7mm curette Tissue Removed: subcutaneous tissue and muscle. Severity: Fat Layer Exposed - muscle is exposed. 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 2. Right breast cancer. 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 5. Disproportion reconstructed breasts. 6. Late effect radiation right breast. 7. 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 8. Compromised TRAM flap right breast reconstruction with partial loss. 9. Estrogen receptor status negative. 10. Former smoker. 11. s/p revision right breast reconstruction with excision nonhealing radiation ulcer scar contour deformity and lateral rotation TRAM flap and delayed right breast reconstruction with placement of latissimus dorsi myocutaneous flap. 12. Soft tissue radionecrosis right breast reconstruction. 13. Open surgical wound right back. 14. Tachycardia, stable. Plan: Continue the VAC to the right back wound. The latissimus flap right breast reconstruction is soft and healing satisfactory. She has the beginning of a small seroma and she states she wasn't using her LOLI wrap. Encouraged the patient to use her LOLI wrap for chest wall compression. She is done with her Levaquin antibiotics. The operative culture was negative. Prealbumin from 09/20/17 was 21.3. Encourage nutritional supplementation with protein to help the healing process. Renewed her Percocet for pain (50 tabs) and her Valium for spasm (30 tabs). She would benefit from conitnued HBO treatments because of her radiation soft tissue radionecrosis damage to her right breast reconstruction. The HBO will also be helpful in preparation for further right breast reconstruction with placement of a cohesive gel implant. Followup one week in the office. [facility]. She states she will call her PCP regarding her increased heart rate for possible Cardiology evaluation. She is asymptomatic at present. She was instructed to go to the ED if she becomes symptomatic. She voiced understanding and wishes to proceed.
[2017-10-16 13:57] VITALS: BP 94/66; BP 95/62; PULSE 79; PULSE 84; RESP 18; TEMP 36.6; TEMP 37.3
--- NOTE | 2017-10-16 16:00 | PCM.HBO.PN ---
History of Present Illness Date of Service: 10/16/17 Presenting Chief Complaint: Soft tissue radionecrosis right breast reconstruction. 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 Progress: Today's hyperbaric oxygen treatment represents her second round and treatment #4 of Round 2. She had HBO treatments before her breast reconstruction surgery and is now having additional HBO treatments after her breast reconstruction surgery. Tolerance of hyperbaric oxygen therapy: Hyperbaric oxygen therapy was administered as per the facility protocol. The patient tolerated hyperbaric oxygen therapy well, without complaints or complications. Upon emergence from the hyperbaric chamber, the patient's vital signs remained stable. The patient was discharged in good condition. 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 Allergies/Adverse Reactions: Allergies POULTRY Allergy (Uncoded 10/07/17 20:50) Anaphylaxis Home Medications: Ambulatory Orders Medication Instructions Recorded Sertraline HCl [Zoloft] 150 mg PO DAILY@0600 09/12/17 traZODone [Desyrel] 50 mg PO QHS 09/12/17 Diazepam [Valium] 10 mg PO 4X/DAY PRN PRN 7 Days #30 09/25/17 tab Docusate Sodium [Colace] 100 mg PO BID #60 cap 09/25/17 Iron Polysaccharide Complex 150 mg PO DAILYCM #30 cap 09/25/17 [Ferrex 150] Oxycodone HCl/Acetaminophen 1 - 2 tab PO 4X/DAY PRN PRN 7 Days 09/25/17 [Percocet 5-325] #60 tab levoFLOXacin tablet [Levaquin 500 mg PO .QDAILY #14 tab 09/25/17 tablet] proMETHazine tablet [Phenergan 25 mg PO 4X/DAY PRN PRN #30 tab 09/25/17 tablet] Non-Adherent Bandage [Mepitel] 2 ea TP .QOD #30 bandage 10/04/17 fentanyl 50 mcg/hr transdermal 1 patch TRANSDERMAL Q72H #5 ea 10/12/17 patch Maternal Family History: Family History (Last Updated 02/28/17 @ 15:22 by Fernanda Polk) Unknown No problems noted. Family History: Diabetes, Heart Disease Paternal Family History: Family History (Last Updated 02/28/17 @ 15:22 by Fernanda Polk) Unknown No problems noted. Family History: No pertinent history Smoking Status: Former smoker Physical Exam Vital Signs Temp Pulse Resp BP 97.8 F 84 18 95/62 10/16/17 13:57 10/16/17 13:57 10/16/17 13:57 10/16/17 13:57 General: Alert, Oriented x3, Cooperative, No apparent distress, Well developed, Well nourished HEENT: Atraumatic, PERRLA, EOMI, Normocephalic Lungs: Normal air movement Psych/Mental Status: Normal Affect, Appropriate, Alert and oriented to time, place, person, mood and affect Assessment/Plan The patient appears to be tolerating hyperbaric oxygen therapy well, which will be continued as per the patient's medical plan.
--- NOTE | 2017-10-18 22:58 | PCM.HBO.PN ---
History of Present Illness Date of Service: 10/18/17 Presenting Chief Complaint: Soft tissue radionecrosis right breast reconstruction. SHARON BARRAGAN is a 47 year old currently undergoing hyperbaric oxygen therapy for soft tissue radionecrosis right breast reconstruction. Progress: Today's hyperbaric oxygen treatment represents her 2nd treatment course and this is treatment #5. She had HBO treatments before her breast reconstruction surgery and is now having additional HBO treatments after her breast reconstruction surgery. Tolerance of hyperbaric oxygen therapy: Hyperbaric oxygen therapy was administered as per the facility protocol. The patient tolerated hyperbaric oxygen therapy well, without complaints or complications. Upon emergence from the hyperbaric chamber, the patient's vital signs remained stable. The patient was discharged in good condition. 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 Allergies/Adverse Reactions: Allergies FIBERGLASS Allergy (Severe, Uncoded 11/23/17 13:23) SEVERE ITCHING AND RASH POULTRY Allergy (Uncoded 10/18/17 11:36) Anaphylaxis Home Medications: Ambulatory Orders Medication Instructions Recorded Sertraline HCl [Zoloft] 150 mg PO DAILY@0600 09/12/17 traZODone [Desyrel] 50 mg PO QHS 09/12/17 Docusate Sodium [Colace] 100 mg PO BID #60 cap 09/25/17 Iron Polysaccharide Complex 150 mg PO DAILYCM #30 cap 09/25/17 [Ferrex 150] levoFLOXacin tablet [Levaquin 500 mg PO .QDAILY #14 tab 09/25/17 tablet] proMETHazine tablet [Phenergan 25 mg PO 4X/DAY PRN PRN #30 tab 09/25/17 tablet] Non-Adherent Bandage [Mepitel] 2 ea TP .QOD #30 bandage 10/04/17 Diazepam [Valium] 10 mg PO BID PRN PRN #20 tab 10/23/17 diazepam 5 mg tablet 5 mg PO TID PRN #20 tab 11/14/17 diazepam 5 mg tablet 5 mg PO TID PRN #20 tab 11/23/17 Maternal Family History: Family History (Last Reviewed 10/18/17 @ 11:35 by Ani Lemus) Unknown No problems noted. Family History: Diabetes, Heart Disease Paternal Family History: Family History (Last Reviewed 10/18/17 @ 11:35 by Ani Lemus) Unknown No problems noted. Family History: No pertinent history Smoking Status: Former smoker Physical Exam Vital Signs Temp Pulse Resp BP 97.8 F 84 18 95/62 10/16/17 13:57 10/16/17 13:57 10/16/17 13:57 10/16/17 13:57 Assessment/Plan Active Problems (Last Updated 11/24/17 @ 17:29 by Eveline Chen DO) Radiation skin ulcer of chest (Chronic) radiation skin ulcer right chest wall and breast reconstruction Partial loss of skin graft (Acute) Compromised TRAM flap right breast reconstruction with partial loss Late effect of radiation (Chronic) late effect radiation right breast
== END 2017-10-17 23:59 ==
LOC: WC 13:00
PROVIDERS: Family Provider Internal Medicine; PCP Internal Medicine; Visit Provider Surgery
DX: L59.8 Other specified disorders of the skin and subcutaneous tissue related to radiation (principal); Y84.2 Radiological procedure and radiotherapy as the cause of abnormal reaction of the patient, or of later complication, without mention of misadventure at the time of the procedure; Z85.3 Personal history of malignant neoplasm of breast; Z87.891 Personal history of nicotine dependence; L98.499 Non-pressure chronic ulcer of skin of other sites with unspecified severity; Z17.1 Estrogen receptor negative status [ER-]; Z79.899 Other long term (current) drug therapy
CPT/HCPCS: 11043; 11046; 87070; 87075; 87077; 87205; 97606; 99183; G0277

== ENCOUNTER 2017-11-13 13:00 | Outpatient (RCR) | payer MEDICAID, SELFPAY ==
[2017-10-18 00:43] VITALS: BP 94/66; PULSE 79; RESP 18; TEMP 37.3
[2017-10-18 12:56] VITALS: BP 120/75; BP 120/84; PULSE 84; PULSE 96; RESP 16; TEMP 36.4; TEMP 36.6
[2017-10-19 13:05] VITALS: BP 111/67; BP 112/65; PULSE 87; PULSE 94; RESP 16; TEMP 36.3; TEMP 36.4
--- NOTE | 2017-10-19 15:31 | PCM.HBO.PN ---
History of Present Illness Date of Service: 10/19/17 Presenting Chief Complaint: Soft tissue radionecrosis right breast reconstruction. 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 Progress: Patient tolerating HBO well. She had HBO treatments before her breast reconstruction surgery and is now having additional HBO treatments after her breast reconstruction surgery. Tolerance of hyperbaric oxygen therapy: Hyperbaric oxygen therapy was administered as per the facility protocol. The patient tolerated hyperbaric oxygen therapy well, without complaints or complications. Upon emergence from the hyperbaric chamber, the patient's vital signs remained stable. The patient was discharged in good condition. 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 Allergies/Adverse Reactions: Allergies POULTRY Allergy (Uncoded 10/18/17 11:36) Anaphylaxis Home Medications: Ambulatory Orders Medication Instructions Recorded Sertraline HCl [Zoloft] 150 mg PO DAILY@0600 09/12/17 traZODone [Desyrel] 50 mg PO QHS 09/12/17 Diazepam [Valium] 10 mg PO 4X/DAY PRN PRN 7 Days #30 09/25/17 tab Docusate Sodium [Colace] 100 mg PO BID #60 cap 09/25/17 Iron Polysaccharide Complex 150 mg PO DAILYCM #30 cap 09/25/17 [Ferrex 150] Oxycodone HCl/Acetaminophen 1 - 2 tab PO 4X/DAY PRN PRN 7 Days 09/25/17 [Percocet 5-325] #60 tab levoFLOXacin tablet [Levaquin 500 mg PO .QDAILY #14 tab 09/25/17 tablet] proMETHazine tablet [Phenergan 25 mg PO 4X/DAY PRN PRN #30 tab 09/25/17 tablet] Non-Adherent Bandage [Mepitel] 2 ea TP .QOD #30 bandage 10/04/17 fentanyl 50 mcg/hr transdermal 1 patch TRANSDERMAL Q72H #5 ea 10/12/17 patch Maternal Family History: Family History (Last Reviewed 10/18/17 @ 11:35 by Ani Lemus) Unknown No problems noted. Family History: Diabetes, Heart Disease Paternal Family History: Family History (Last Reviewed 10/18/17 @ 11:35 by Ani Lemus) Unknown No problems noted. Family History: No pertinent history Smoking Status: Former smoker Physical Exam Vital Signs Temp Pulse Resp BP 97.5 F L 94 16 112/65 10/19/17 13:05 10/19/17 13:05 10/19/17 13:05 10/19/17 13:05 General: Alert, Oriented x3, Cooperative, No apparent distress HEENT: Atraumatic, PERRLA, TM's Clear Lungs: Clear to auscultation, Normal air movement, No rhonchi, No wheeze, No rales Cardiovascular: Regular rate, Regular Rhythm Psych/Mental Status: Normal Affect, Appropriate Assessment/Plan The patient appears to be tolerating hyperbaric oxygen therapy well, which will be continued as per the patient's medical plan.
[2017-10-20 13:05] VITALS: BP 133/73; BP 138/74; PULSE 108; PULSE 82; RESP 16; TEMP 36.4; TEMP 36.8
--- NOTE | 2017-10-20 18:40 | PCM.HBO.PN ---
History of Present Illness Date of Service: 10/20/17 Presenting Chief Complaint: Soft tissue radionecrosis right breast reconstruction. 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 This is her 8th such treatment for this session of HBOT. Progress: Patient tolerating HBO well. She had HBO treatments before her breast reconstruction surgery and is now having additional HBO treatments after her breast reconstruction surgery. Tolerance of hyperbaric oxygen therapy: Hyperbaric oxygen therapy was administered as per the facility protocol. The patient tolerated hyperbaric oxygen therapy well, without complaints or complications. Upon emergence from the hyperbaric chamber, the patient's vital signs remained stable. The patient was discharged in good condition. 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 Allergies/Adverse Reactions: Allergies POULTRY Allergy (Uncoded 10/18/17 11:36) Anaphylaxis Home Medications: Ambulatory Orders Medication Instructions Recorded Sertraline HCl [Zoloft] 150 mg PO DAILY@0600 09/12/17 traZODone [Desyrel] 50 mg PO QHS 09/12/17 Diazepam [Valium] 10 mg PO 4X/DAY PRN PRN 7 Days #30 09/25/17 tab Docusate Sodium [Colace] 100 mg PO BID #60 cap 09/25/17 Iron Polysaccharide Complex 150 mg PO DAILYCM #30 cap 09/25/17 [Ferrex 150] Oxycodone HCl/Acetaminophen 1 - 2 tab PO 4X/DAY PRN PRN 7 Days 09/25/17 [Percocet 5-325] #60 tab levoFLOXacin tablet [Levaquin 500 mg PO .QDAILY #14 tab 09/25/17 tablet] proMETHazine tablet [Phenergan 25 mg PO 4X/DAY PRN PRN #30 tab 09/25/17 tablet] Non-Adherent Bandage [Mepitel] 2 ea TP .QOD #30 bandage 10/04/17 fentanyl 50 mcg/hr transdermal 1 patch TRANSDERMAL Q72H #5 ea 10/12/17 patch Maternal Family History: Family History (Last Reviewed 10/18/17 @ 11:35 by Ani Lemus) Unknown No problems noted. Family History: Diabetes, Heart Disease Paternal Family History: Family History (Last Reviewed 10/18/17 @ 11:35 by Ani Lemus) Unknown No problems noted. 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
[2017-10-23 13:23] VITALS: BP 106/73; BP 113/75; PULSE 103; PULSE 76; RESP 16; TEMP 36.3; TEMP 36.5
--- NOTE | 2017-10-23 15:58 | PCM.HBO.PN ---
History of Present Illness Date of Service: 10/23/17 Presenting Chief Complaint: Soft tissue radionecrosis right breast reconstruction. 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 This is her 8th such treatment for this session of HBOT. Progress: Patient tolerating HBO well. She had HBO treatments before her breast reconstruction surgery and is now having additional HBO treatments after her breast reconstruction surgery. Tolerance of hyperbaric oxygen therapy: Hyperbaric oxygen therapy was administered as per the facility protocol. The patient tolerated hyperbaric oxygen therapy well, without complaints or complications. Upon emergence from the hyperbaric chamber, the patient's vital signs remained stable. The patient was discharged in good condition. 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 Allergies/Adverse Reactions: Allergies POULTRY Allergy (Uncoded 10/18/17 11:36) Anaphylaxis Home Medications: Ambulatory Orders Medication Instructions Recorded Sertraline HCl [Zoloft] 150 mg PO DAILY@0600 09/12/17 traZODone [Desyrel] 50 mg PO QHS 09/12/17 Docusate Sodium [Colace] 100 mg PO BID #60 cap 09/25/17 Iron Polysaccharide Complex 150 mg PO DAILYCM #30 cap 09/25/17 [Ferrex 150] levoFLOXacin tablet [Levaquin 500 mg PO .QDAILY #14 tab 09/25/17 tablet] proMETHazine tablet [Phenergan 25 mg PO 4X/DAY PRN PRN #30 tab 09/25/17 tablet] Non-Adherent Bandage [Mepitel] 2 ea TP .QOD #30 bandage 10/04/17 fentanyl 50 mcg/hr transdermal 1 patch TRANSDERMAL Q72H #5 ea 10/12/17 patch Diazepam [Valium] 10 mg PO BID PRN PRN #20 tab 10/23/17 Oxycodone HCl/Acetaminophen 1 - 2 tab PO 4X/DAY PRN PRN 7 Days 10/23/17 [Percocet 5-325] #40 tab Maternal Family History: Family History (Last Reviewed 10/18/17 @ 11:35 by Ani Lemus) Unknown No problems noted. Family History: Diabetes, Heart Disease Paternal Family History: Family History (Last Reviewed 10/18/17 @ 11:35 by Ani Lemus) Unknown No problems noted. Family History: No pertinent history Smoking Status: Former smoker Physical Exam Vital Signs Temp Pulse Resp BP 97.7 F L 103 H 16 106/73 10/23/17 13:23 10/23/17 13:23 10/23/17 13:23 10/23/17 13:23 General: Alert, Oriented x3, Cooperative, No apparent distress, Well developed, Well nourished HEENT: Atraumatic, PERRLA, EOMI, Normocephalic Lungs: Normal air movement Psych/Mental Status: Normal Affect, Appropriate, Alert and oriented to time, place, person, mood and affect Assessment/Plan The patient appears to be tolerating hyperbaric oxygen therapy well, which will continue as per the patient's medical plan.
[2017-10-25 13:12] VITALS: BP 108/70; BP 111/72; PULSE 93; RESP 16; TEMP 36.4; TEMP 36.6
[2017-10-26 13:03] VITALS: BP 101/67; BP 115/65; PULSE 76; PULSE 83; RESP 16; TEMP 36.3; TEMP 36.6
--- NOTE | 2017-10-26 17:01 | PCM.HBO.PN ---
History of Present Illness Date of Service: 10/26/17 Presenting Chief Complaint: Soft tissue radionecrosis right breast reconstruction. 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 This is her 8th such treatment for this session of HBOT. Progress: Patient tolerating HBO well. She had HBO treatments before her breast reconstruction surgery and is now having additional HBO treatments after her breast reconstruction surgery. Tolerance of hyperbaric oxygen therapy: Hyperbaric oxygen therapy was administered as per the facility protocol. The patient tolerated hyperbaric oxygen therapy well, without complaints or complications. Upon emergence from the hyperbaric chamber, the patient's vital signs remained stable. The patient was discharged in good condition. 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 Allergies/Adverse Reactions: Allergies POULTRY Allergy (Uncoded 10/18/17 11:36) Anaphylaxis Home Medications: Ambulatory Orders Medication Instructions Recorded Sertraline HCl [Zoloft] 150 mg PO DAILY@0600 09/12/17 traZODone [Desyrel] 50 mg PO QHS 09/12/17 Docusate Sodium [Colace] 100 mg PO BID #60 cap 09/25/17 Iron Polysaccharide Complex 150 mg PO DAILYCM #30 cap 09/25/17 [Ferrex 150] levoFLOXacin tablet [Levaquin 500 mg PO .QDAILY #14 tab 09/25/17 tablet] proMETHazine tablet [Phenergan 25 mg PO 4X/DAY PRN PRN #30 tab 09/25/17 tablet] Non-Adherent Bandage [Mepitel] 2 ea TP .QOD #30 bandage 10/04/17 fentanyl 50 mcg/hr transdermal 1 patch TRANSDERMAL Q72H #5 ea 10/12/17 patch Diazepam [Valium] 10 mg PO BID PRN PRN #20 tab 10/23/17 Oxycodone HCl/Acetaminophen 1 - 2 tab PO 4X/DAY PRN PRN 7 Days 10/23/17 [Percocet 5-325] #40 tab Maternal Family History: Family History (Last Reviewed 10/18/17 @ 11:35 by Ani Lemus) Unknown No problems noted. Family History: Diabetes, Heart Disease Paternal Family History: Family History (Last Reviewed 10/18/17 @ 11:35 by Ani Lemus) Unknown No problems noted. Family History: No pertinent history Smoking Status: Former smoker Physical Exam Vital Signs Temp Pulse Resp BP 97.8 F 83 16 101/67 10/26/17 13:03 10/26/17 13:03 10/26/17 13:03 10/26/17 13:03 General: Alert, Oriented x3, Cooperative, No apparent distress HEENT: Atraumatic, PERRLA, TM's Clear Lungs: Clear to auscultation, Normal air movement Cardiovascular: Regular rate, Regular Rhythm Psych/Mental Status: Normal Affect, Appropriate Assessment/Plan The patient appears to be tolerating hyperbaric oxygen therapy well, which will continue as per the patient's medical plan.
[2017-10-27 13:05] VITALS: BP 116/68; PULSE 88; RESP 16; TEMP 36.5
--- NOTE | 2017-10-27 17:25 | PCM.HBO.PN ---
History of Present Illness Date of Service: 10/27/17 Presenting Chief Complaint: Soft tissue radionecrosis right breast reconstruction. 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 This is her 11th such treatment for this session of HBOT. Progress: Patient tolerating HBO well. She had HBO treatments before her breast reconstruction surgery and is now having additional HBO treatments after her breast reconstruction surgery. Tolerance of hyperbaric oxygen therapy: Hyperbaric oxygen therapy was administered as per the facility protocol. The patient tolerated hyperbaric oxygen therapy well, without complaints or complications. Upon emergence from the hyperbaric chamber, the patient's vital signs remained stable. The patient was discharged in good condition. 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 Allergies/Adverse Reactions: Allergies POULTRY Allergy (Uncoded 10/18/17 11:36) Anaphylaxis Home Medications: Ambulatory Orders Medication Instructions Recorded Sertraline HCl [Zoloft] 150 mg PO DAILY@0600 09/12/17 traZODone [Desyrel] 50 mg PO QHS 09/12/17 Docusate Sodium [Colace] 100 mg PO BID #60 cap 09/25/17 Iron Polysaccharide Complex 150 mg PO DAILYCM #30 cap 09/25/17 [Ferrex 150] levoFLOXacin tablet [Levaquin 500 mg PO .QDAILY #14 tab 09/25/17 tablet] proMETHazine tablet [Phenergan 25 mg PO 4X/DAY PRN PRN #30 tab 09/25/17 tablet] Non-Adherent Bandage [Mepitel] 2 ea TP .QOD #30 bandage 10/04/17 fentanyl 50 mcg/hr transdermal 1 patch TRANSDERMAL Q72H #5 ea 10/12/17 patch Diazepam [Valium] 10 mg PO BID PRN PRN #20 tab 10/23/17 Oxycodone HCl/Acetaminophen 1 - 2 tab PO 4X/DAY PRN PRN 7 Days 10/23/17 [Percocet 5-325] #40 tab Maternal Family History: Family History (Last Reviewed 10/18/17 @ 11:35 by Ani Lemus) Unknown No problems noted. Family History: Diabetes, Heart Disease Paternal Family History: Family History (Last Reviewed 10/18/17 @ 11:35 by Ani Lemus) Unknown No problems noted. Family History: No pertinent history Smoking Status: Former smoker Physical Exam Vital Signs Temp Pulse Resp BP 97.7 F L 88 16 116/68 10/27/17 13:05 10/27/17 13:05 10/27/17 13:05 10/27/17 13:05 General: Alert, Oriented x3, Cooperative, No apparent distress Psych/Mental Status: Normal Affect, Appropriate Assessment/Plan Active Problems (Last Updated 10/20/17 @ 18:41 by Eveline Chen DO) Deformity of reconstructed breast (Acute) radiation scar contour deformity right breast reconstruction Radiation skin ulcer of chest (Chronic) radiation skin ulcer right chest wall and breast reconstruction Partial loss of skin graft (Acute) Compromised TRAM flap right breast reconstruction with partial loss Late effect of radiation (Chronic) late effect radiation right breast The patient appears to be tolerating hyperbaric oxygen therapy well, which will continue as per the patient's medical plan.
[2017-11-03 14:33] VITALS: BP 116/73; BP 98/66; PULSE 83; PULSE 84; RESP 16; RESP 20; TEMP 36.6
--- NOTE | 2017-11-03 17:11 | PCM.HBO.PN ---
History of Present Illness Date of Service: 11/03/17 Presenting Chief Complaint: Soft tissue radionecrosis right breast reconstruction. 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 This is her 12th such treatment for this session of HBOT. Progress: Patient tolerating HBO well. She had HBO treatments before her breast reconstruction surgery and is now having additional HBO treatments after her breast reconstruction surgery. Tolerance of hyperbaric oxygen therapy: Hyperbaric oxygen therapy was administered as per the facility protocol. The patient tolerated hyperbaric oxygen therapy well, without complaints or complications. Upon emergence from the hyperbaric chamber, the patient's vital signs remained stable. The patient was discharged in good condition. 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 Allergies/Adverse Reactions: Allergies POULTRY Allergy (Uncoded 10/18/17 11:36) Anaphylaxis Home Medications: Ambulatory Orders Medication Instructions Recorded Sertraline HCl [Zoloft] 150 mg PO DAILY@0600 09/12/17 traZODone [Desyrel] 50 mg PO QHS 09/12/17 Docusate Sodium [Colace] 100 mg PO BID #60 cap 09/25/17 Iron Polysaccharide Complex 150 mg PO DAILYCM #30 cap 09/25/17 [Ferrex 150] levoFLOXacin tablet [Levaquin 500 mg PO .QDAILY #14 tab 09/25/17 tablet] proMETHazine tablet [Phenergan 25 mg PO 4X/DAY PRN PRN #30 tab 09/25/17 tablet] Non-Adherent Bandage [Mepitel] 2 ea TP .QOD #30 bandage 10/04/17 Diazepam [Valium] 10 mg PO BID PRN PRN #20 tab 10/23/17 oxycodone-acetaminophen 5 mg-325 1 - 2 tab PO 4X/DAY PRN PRN 7 Days 11/03/17 mg tablet #40 tab Maternal Family History: Family History (Last Reviewed 10/18/17 @ 11:35 by Ani Lemus) Unknown No problems noted. Family History: Diabetes, Heart Disease Paternal Family History: Family History (Last Reviewed 10/18/17 @ 11:35 by Ani Lemus) Unknown No problems noted. Family History: No pertinent history Smoking Status: Former smoker Physical Exam Vital Signs Temp Pulse Resp BP 97.9 F 84 20 H 98/66 11/03/17 14:33 11/03/17 14:33 11/03/17 14:33 11/03/17 14:33 General: Alert, Oriented x3, Cooperative, No apparent distress Psych/Mental Status: Normal Affect, Appropriate Assessment/Plan The patient appears to be tolerating hyperbaric oxygen therapy well, which will continue as per the patient's medical plan.
[2017-11-06 11:29] VITALS: BP 129/79; PULSE 76; RESP 16; TEMP 36.4
[2017-11-06 13:36] VITALS: BP 100/74; BP 127/78; PULSE 67; PULSE 72; RESP 16; TEMP 36.6; TEMP 36.8
--- NOTE | 2017-11-06 22:36 | PN.PCM_ITS ---
Type of Wound Date of Service: 11/06/17 Chief Complaint: Soft tissue radionecrosis right breast reconstruction and nonhealing ulcer right back. History of Wound: Surgery 09/19/17 - Revision right breast reconstruction with excision nonhealing radiation ulcer scar contour deformity and lateral rotation TRAM flap and delayed right breast reconstruction with placement of latissimus dorsi myocutaneous flap. Wound care - VAC. Operative culture - negative. She was discharged on Levaquin and has finished them now that the drains are removed. Prealbumin from 09/20/17 was 21.3. Encourage nutritional supplementation with protein to help the healing process. Today she denies fever. Her appetite is ok. Her heart rate is normat at 76. She is asymptomatic. She saw her PCP who is treating her for her tachycardia. The eschar on the inferomedial aspect of the latissimus flap has come off and good healed scar tissue is seen underneath. Progress of Wound: Improved. - Physical Exam Vital Signs Temp Pulse Resp BP 98.3 F 72 16 100/74 11/06/17 13:36 11/06/17 13:36 11/06/17 13:36 11/06/17 13:36 Skin: Incision - right breast incision is healing satisfactory. The small area of eschar on the inferomedial aspect has come off and good healed scar tissue is seen underneath. Wound Measurements and Assessment WC - Nurse 1 - General Ulcer Measurement Start: 10/18/17 12:56 Freq: Status: Active Protocol: Activity Type Activity Date Activity User E-Sign Co-Sign Detail Recorded Client Recorded Date Recorded By Document 11/06/17 11:29 [facility] [id number] 11/06/17 11:44 [facility] 11/06/17 11:29 [facility] Nurse 1 [Ulcer Assessment] #2 R Back/Donor Site -Combined with other wound No -Current Size (cm) - Length 6.9 -Current Size (cm) - Width 9.6 -Current Size (cm) - Depth 0.1 -Total Square Cm 66.24 -Date of Last Picture (Recall this 11/06/17 field) -Photo Taken Yes -Epithelialization Medium 34-66% -Tunneling No -Undermining/Tunneling No -Circular Undermining No -Exudate Amt None Present (0 %) -Wound Margin Distinct, Outline Attached -Granulation Amt Large (67-100%) -Granulation Quality Pale Red -Slough/Fibrin No -Necrosis Amt None Present (0 %) -Necrotic Tissue Type Adherent Slough -Texture (Meghana-wound Skin Appearance) Scarring -Moisture (Meghana-wound Skin Appearance Assessed ) -Color (Meghana-wound Skin Appearance) Assessed -Temperature (Meghana-wound Skin No Abnormality Appearance) (Pt Warm) -Tenderness on Palpation (Meghana-wound No Skin Appearance) -Ulcer Cleansing Rinsed/ Irrigated with Saline -Foul Odor after Cleansing No -Anesthetic Used 4% Lidocaine Solution #1 Right breast flap -Combined with other wound No -Date of Last Picture (Recall this 11/06/17 field) -Photo Taken Yes -Epithelialization None Present -Tunneling No -Undermining/Tunneling No -Circular Undermining No -Exudate Amt None -Wound Margin None -Granulation Amt None -Slough/Fibrin N -Necrosis Amt None -Necrotic Tissue Type None -Structure Exposed N/A -Texture (Meghana-wound Skin Appearance) Scarring -Moisture (Meghana-wound Skin Appearance Dry/Scaly ) -Color (Meghana-wound Skin Appearance) Assessed -Temperature (Meghana-wound Skin No Abnormality Appearance) (Pt Warm) -Tenderness on Palpation (Meghana-wound No Skin Appearance) -Ulcer Cleansing None -Foul Odor after Cleansing No -Anesthetic Used None WC - Nurse 2 - General Ulcer CM Notes Start: 10/18/17 12:56 Freq: Status: Active Protocol: Activity Type Activity Date Activity User E-Sign Co-Sign Detail Recorded Client Recorded Date Recorded By Document 11/06/17 12:10 [facility] [id number] 11/06/17 12:11 [facility] 11/06/17 12:10 Wound Center Nurse 2 [Procedure/Treatment] #2 R Back/Donor Site -Time 12:10 -Correct Patient Yes -Correct Side, Site, Position Yes -Correct Procedure Yes -Procedure Performed Yes -Type of Procedure Debridement -Clinical Debridement Subcutaneous -Post Debridement Size (cm) - Length 7 -Post Debridement Size (cm) - Width 9.6 -Post Debridement Size (cm) - Depth 0.2 -Total Square Cm 67.2 -Wound/Ulcer Outcome Not Healed -Ulcer Cleansing Rinsed/Saline -Foul Odor after Cleansing No -Bioengineered Tissue No -Bleeding Controlled with Pressure -Treatment Response Procedure Tolerated Well #1 Right breast flap -Time 12:10 -Correct Patient Yes -Correct Side, Site, Position Yes -Correct Procedure No -Procedure Performed No -Type of Procedure No -Clinical Debridement No -Wound/Ulcer Outcome Healed -Ulcer Cleansing None -Foul Odor after Cleansing No -Bioengineered Tissue No [See Physician Procedure note for Specifics] Pain Scale: 0-10 Numeric [Pain] -Is Patient Pain Free? Yes Debridement Note Post-Debridement Measurements/Treatment WC - Nurse 2 - General Ulcer CM Notes Start: 10/18/17 12:56 Freq: Status: Active Protocol: Activity Type Activity Date Activity User E-Sign Co-Sign Detail Recorded Client Recorded Date Recorded By Document 11/06/17 12:10 [facility] [id number] 11/06/17 12:11 [facility] 11/06/17 12:10 Wound Center Nurse 2 #2 R Back/Donor Site -Time 12:10 -Correct Patient Yes -Correct Side, Site, Position Yes -Correct Procedure Yes -Procedure Performed Yes -Type of Procedure Debridement -Clinical Debridement Subcutaneous -Post Debridement Size (cm) - Length 7 -Post Debridement Size (cm) - Width 9.6 -Post Debridement Size (cm) - Depth 0.2 -Total Square Cm 67.2 -Wound/Ulcer Outcome Not Healed -Ulcer Cleansing Rinsed/ Irrigated with Saline -Foul Odor after Cleansing No -Bioengineered Tissue No -Bleeding Controlled with Pressure -Treatment Response Procedure Tolerated Well #1 Right breast flap -Time 12:10 -Correct Patient Yes -Correct Side, Site, Position Yes -Correct Procedure No -Procedure Performed No -Type of Procedure None -Clinical Debridement None -Wound/Ulcer Outcome Healed -Ulcer Cleansing None -Foul Odor after Cleansing No -Bioengineered Tissue No -Bleeding Controlled None -Treatment Response None Pain Scale: 0-10 Numeric Is Patient Pain Free? Yes Wound debrided: #2 Right back. Laterality: Right Wound Grade/Stage: 3. Type of Debridement: Excisional debridement Anesthesia Used: 4% Lidocaine Solution Depth: Down to and including healthy tissue, in the subcutaneous layer Percentage of wound debrided: 100 Instrument Used: 7mm curette Tissue Removed: subcutaneous tissue. 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 Nonhealing ulcer right back. 2. Right breast cancer. 3. 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 6. Disproportion reconstructed breasts. 7. Late effect radiation right breast. 8. 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 9. Compromised TRAM flap right breast reconstruction with partial loss. 10. Estrogen receptor status negative. 11. Former smoker. 12. s/p revision right breast reconstruction with excision nonhealing radiation ulcer scar contour deformity and lateral rotation TRAM flap and delayed right breast reconstruction with placement of latissimus dorsi myocutaneous flap. 13. Tachycardia, stable. Plan: Stop the VAC to the right back ulcer and start Silver dressing changes daily. The latissimus flap right breast reconstruction is soft and healing satisfactory. The eschar on the inferomedial aspect of the latissimus flap has come off and good healed scar tissue is seen underneath. Her right breast reconstruction seroma has clinically resolved. She states she has been using her LOLI wrap for chest wall compression. She is done with her Levaquin antibiotics. The operative culture was negative. Prealbumin from 09/20/17 was 21.3. Encourage nutritional supplementation with protein to help the healing process. Renewed her Percocet for pain (30 tabs). She saw her PCP regarding her increased heart rate and is being treated for it. She is asymptomatic at present. Followup 2 weeks in the office. Followup 4 weeks at the [facility].
--- NOTE | 2017-11-06 22:40 | PCM.HBO.PN ---
History of Present Illness Date of Service: 11/06/17 Presenting Chief Complaint: Soft tissue radionecrosis right breast reconstruction. SHARON BARRAGAN is a 47 year old currently undergoing hyperbaric oxygen therapy for soft tissue radionecrosis right breast reconstruction. Progress: Today's hyperbaric oxygen treatment represents her 2nd treatment course and this is treatment #13. She had HBO treatments before her breast reconstruction surgery and is now having additional HBO treatments after her breast reconstruction surgery. Tolerance of hyperbaric oxygen therapy: Hyperbaric oxygen therapy was administered as per the facility protocol. The patient tolerated hyperbaric oxygen therapy well, without complaints or complications. Upon emergence from the hyperbaric chamber, the patient's vital signs remained stable. The patient was discharged in good condition. 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 Allergies/Adverse Reactions: Allergies FIBERGLASS Allergy (Severe, Uncoded 11/23/17 13:23) SEVERE ITCHING AND RASH POULTRY Allergy (Uncoded 10/18/17 11:36) Anaphylaxis Home Medications: Ambulatory Orders Medication Instructions Recorded Sertraline HCl [Zoloft] 150 mg PO DAILY@0600 09/12/17 traZODone [Desyrel] 50 mg PO QHS 09/12/17 Docusate Sodium [Colace] 100 mg PO BID #60 cap 09/25/17 Iron Polysaccharide Complex 150 mg PO DAILYCM #30 cap 09/25/17 [Ferrex 150] levoFLOXacin tablet [Levaquin 500 mg PO .QDAILY #14 tab 09/25/17 tablet] proMETHazine tablet [Phenergan 25 mg PO 4X/DAY PRN PRN #30 tab 09/25/17 tablet] Non-Adherent Bandage [Mepitel] 2 ea TP .QOD #30 bandage 10/04/17 Diazepam [Valium] 10 mg PO BID PRN PRN #20 tab 10/23/17 diazepam 5 mg tablet 5 mg PO TID PRN #20 tab 11/14/17 diazepam 5 mg tablet 5 mg PO TID PRN #20 tab 11/23/17 Maternal Family History: Family History (Last Reviewed 10/18/17 @ 11:35 by Ani Lemus) Unknown No problems noted. Family History: Diabetes, Heart Disease Paternal Family History: Family History (Last Reviewed 10/18/17 @ 11:35 by Ani Lemus) Unknown No problems noted. Family History: No pertinent history Smoking Status: Former smoker Physical Exam Vital Signs Temp Pulse Resp BP 98.3 F 72 16 100/74 11/06/17 13:36 11/06/17 13:36 11/06/17 13:36 11/06/17 13:36 Assessment/Plan Active Problems (Last Updated 11/24/17 @ 17:29 by Eveline Chen DO) Radiation skin ulcer of chest (Chronic) radiation skin ulcer right chest wall and breast reconstruction Partial loss of skin graft (Acute) Compromised TRAM flap right breast reconstruction with partial loss Late effect of radiation (Chronic) late effect radiation right breast
[2017-11-08 12:53] VITALS: BP 111/65; BP 127/75; PULSE 66; PULSE 78; RESP 18; TEMP 36.1; TEMP 36.4
--- NOTE | 2017-11-08 18:58 | PCM.HBO.PN ---
History of Present Illness Date of Service: 11/08/17 Presenting Chief Complaint: Soft tissue radionecrosis right breast reconstruction. SHARON BARRAGAN is a 47 year old currently undergoing hyperbaric oxygen therapy for soft tissue radionecrosis right breast reconstruction. Progress: Today's hyperbaric oxygen treatment represents her 2nd treatment course and this is treatment #14. She had HBO treatments before her breast reconstruction surgery and is now having additional HBO treatments after her breast reconstruction surgery. Tolerance of hyperbaric oxygen therapy: Hyperbaric oxygen therapy was administered as per the facility protocol. The patient tolerated hyperbaric oxygen therapy well, without complaints or complications. Upon emergence from the hyperbaric chamber, the patient's vital signs remained stable. The patient was discharged in good condition. She had mild right ear pain that was tolerable. 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 Allergies/Adverse Reactions: Allergies FIBERGLASS Allergy (Severe, Uncoded 11/23/17 13:23) SEVERE ITCHING AND RASH POULTRY Allergy (Uncoded 10/18/17 11:36) Anaphylaxis Home Medications: Ambulatory Orders Medication Instructions Recorded Sertraline HCl [Zoloft] 150 mg PO DAILY@0600 09/12/17 traZODone [Desyrel] 50 mg PO QHS 09/12/17 Docusate Sodium [Colace] 100 mg PO BID #60 cap 09/25/17 Iron Polysaccharide Complex 150 mg PO DAILYCM #30 cap 09/25/17 [Ferrex 150] levoFLOXacin tablet [Levaquin 500 mg PO .QDAILY #14 tab 09/25/17 tablet] proMETHazine tablet [Phenergan 25 mg PO 4X/DAY PRN PRN #30 tab 09/25/17 tablet] Non-Adherent Bandage [Mepitel] 2 ea TP .QOD #30 bandage 10/04/17 Diazepam [Valium] 10 mg PO BID PRN PRN #20 tab 10/23/17 diazepam 5 mg tablet 5 mg PO TID PRN #20 tab 11/14/17 diazepam 5 mg tablet 5 mg PO TID PRN #20 tab 11/23/17 Maternal Family History: Family History (Last Reviewed 10/18/17 @ 11:35 by Ani Lemus) Unknown No problems noted. Family History: Diabetes, Heart Disease Paternal Family History: Family History (Last Reviewed 10/18/17 @ 11:35 by Ani Lemus) Unknown No problems noted. Family History: No pertinent history Smoking Status: Former smoker Physical Exam Vital Signs Temp Pulse Resp BP 97.5 F L 78 18 127/75 H 11/08/17 12:53 11/08/17 12:53 11/08/17 12:53 11/08/17 12:53 Assessment/Plan Active Problems (Last Updated 11/24/17 @ 17:29 by Eveline Chen DO) Radiation skin ulcer of chest (Chronic) radiation skin ulcer right chest wall and breast reconstruction Partial loss of skin graft (Acute) Compromised TRAM flap right breast reconstruction with partial loss Late effect of radiation (Chronic) late effect radiation right breast
[2017-11-13 12:00] VITALS: BP 121/72; BP 123/58; PULSE 68; PULSE 86; RESP 16; TEMP 36.4; TEMP 37
--- NOTE | 2017-11-13 16:23 | PCM.HBO.PN ---
History of Present Illness Date of Service: 11/13/17 Presenting Chief Complaint: Soft tissue radionecrosis right breast reconstruction. 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 This is her 15th such treatment for this session of HBOT. Progress: Patient tolerating HBO well. She had HBO treatments before her breast reconstruction surgery and is now having additional HBO treatments after her breast reconstruction surgery. Tolerance of hyperbaric oxygen therapy: Hyperbaric oxygen therapy was administered as per the facility protocol. The patient tolerated hyperbaric oxygen therapy well, without complaints or complications. Upon emergence from the hyperbaric chamber, the patient's vital signs remained stable. The patient was discharged in good condition. 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 Allergies/Adverse Reactions: Allergies POULTRY Allergy (Uncoded 10/18/17 11:36) Anaphylaxis Home Medications: Ambulatory Orders Medication Instructions Recorded Sertraline HCl [Zoloft] 150 mg PO DAILY@0600 09/12/17 traZODone [Desyrel] 50 mg PO QHS 09/12/17 Docusate Sodium [Colace] 100 mg PO BID #60 cap 09/25/17 Iron Polysaccharide Complex 150 mg PO DAILYCM #30 cap 09/25/17 [Ferrex 150] levoFLOXacin tablet [Levaquin 500 mg PO .QDAILY #14 tab 09/25/17 tablet] proMETHazine tablet [Phenergan 25 mg PO 4X/DAY PRN PRN #30 tab 09/25/17 tablet] Non-Adherent Bandage [Mepitel] 2 ea TP .QOD #30 bandage 10/04/17 Diazepam [Valium] 10 mg PO BID PRN PRN #20 tab 10/23/17 Maternal Family History: Family History (Last Reviewed 10/18/17 @ 11:35 by Ani Lemus) Unknown No problems noted. Family History: Diabetes, Heart Disease Paternal Family History: Family History (Last Reviewed 10/18/17 @ 11:35 by Ani Lemus) Unknown No problems noted. Family History: No pertinent history Smoking Status: Former smoker Physical Exam Vital Signs Temp Pulse Resp BP 98.6 F 86 16 123/58 H 11/13/17 12:00 11/13/17 12:00 11/13/17 12:00 11/13/17 12:00 General: Alert, Oriented x3, Cooperative, No apparent distress, Well developed, Well nourished HEENT: Atraumatic, PERRLA, EOMI, Normocephalic Lungs: Normal air movement Psych/Mental Status: Normal Affect, Appropriate, Alert and oriented to time, place, person, mood and affect Assessment/Plan The patient appears to be tolerating hyperbaric oxygen therapy well, which will be continued as per the patient's medical plan.
--- NOTE | 2017-11-29 17:41 | PCM.HBO.PN ---
History of Present Illness Date of Service: 11/29/17 Presenting Chief Complaint: Soft tissue radionecrosis right breast reconstruction. SHARON BARRAGAN is a 47 year old currently undergoing hyperbaric oxygen therapy for soft tissue radionecrosis right breast reconstruction. Progress: Today's hyperbaric oxygen treatment represents her 2nd treatment course and this is treatment #19. She had HBO treatments before her breast reconstruction surgery and is now having additional HBO treatments after her breast reconstruction surgery. Tolerance of hyperbaric oxygen therapy: Hyperbaric oxygen therapy was administered as per the facility protocol. The patient tolerated hyperbaric oxygen therapy well, without complaints or complications. Upon emergence from the hyperbaric chamber, the patient's vital signs remained stable. The patient was discharged in good condition. 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 Allergies/Adverse Reactions: Allergies FIBERGLASS Allergy (Severe, Uncoded 11/23/17 13:23) SEVERE ITCHING AND RASH POULTRY Allergy (Uncoded 10/18/17 11:36) Anaphylaxis Home Medications: Ambulatory Orders Medication Instructions Recorded Sertraline HCl [Zoloft] 150 mg PO DAILY@0600 09/12/17 traZODone [Desyrel] 50 mg PO QHS 09/12/17 Docusate Sodium [Colace] 100 mg PO BID #60 cap 09/25/17 Iron Polysaccharide Complex 150 mg PO DAILYCM #30 cap 09/25/17 [Ferrex 150] levoFLOXacin tablet [Levaquin 500 mg PO .QDAILY #14 tab 09/25/17 tablet] proMETHazine tablet [Phenergan 25 mg PO 4X/DAY PRN PRN #30 tab 09/25/17 tablet] Non-Adherent Bandage [Mepitel] 2 ea TP .QOD #30 bandage 10/04/17 Diazepam [Valium] 10 mg PO BID PRN PRN #20 tab 10/23/17 diazepam 5 mg tablet 5 mg PO TID PRN #20 tab 11/14/17 diazepam 5 mg tablet 5 mg PO TID PRN #20 tab 11/23/17 Maternal Family History: Family History (Last Reviewed 10/18/17 @ 11:35 by Ani Lemus) Unknown No problems noted. Family History: Diabetes, Heart Disease Paternal Family History: Family History (Last Reviewed 10/18/17 @ 11:35 by Ani Lemus) Unknown No problems noted. Family History: No pertinent history Smoking Status: Former smoker Physical Exam Vital Signs Temp Pulse Resp BP 98.6 F 86 16 123/58 H 11/13/17 12:00 11/13/17 12:00 11/13/17 12:00 11/13/17 12:00 Assessment/Plan Active Problems (Last Updated 11/24/17 @ 17:29 by Eveline Chen DO) Radiation skin ulcer of chest (Chronic) radiation skin ulcer right chest wall and breast reconstruction Partial loss of skin graft (Acute) Compromised TRAM flap right breast reconstruction with partial loss Late effect of radiation (Chronic) late effect radiation right breast
== END 2017-11-17 23:59 ==
LOC: WC 13:00
PROVIDERS: Family Provider Internal Medicine; PCP Internal Medicine; Visit Provider Surgery
DX: L59.8 Other specified disorders of the skin and subcutaneous tissue related to radiation (principal); Y84.2 Radiological procedure and radiotherapy as the cause of abnormal reaction of the patient, or of later complication, without mention of misadventure at the time of the procedure; Z17.1 Estrogen receptor negative status [ER-]; Z79.899 Other long term (current) drug therapy; Z87.891 Personal history of nicotine dependence; N65.0 Deformity of reconstructed breast
CPT/HCPCS: 11042; 11045; 99183; G0277

== ENCOUNTER 2017-12-14 18:40 | Emergency (ER) | payer MEDICAID, SELFPAY ==
[2017-12-14 18:41] VITALS: BP 120/82; PULSE 100; RESP 17; TEMP 36.9; O2SAT 95; BMI 33.0
[2017-12-14 18:48] VITALS: BP 114/100; PULSE 99; RESP 16; O2SAT 98
[2017-12-14] MEDS: Glucagon 1 MG/ML Syringe 2 MG IV (19:38)
--- NOTE | 2017-12-14 20:23 | ED.VISSUMM ---
- ER Visit Summary Date of Service: 12/14/17 Chief Complaint: [Esophageal meat impaction] History of Present Illness: The patient is a 47 F [presents to the emergency department with complaint of not being able to swallow. Patient states that she was eating pork chops and speaking with a friend when she felt like a piece got stuck. Patient was subsequently unable to eat or drink and she could not swallow her own spit. Patient describes some mild discomfort in her upper chest. Patient states that on arrival the emergency department she actually feels a little bit improved compared to what she felt initially. Patient is never had this happen before. She denies any shortness of breath.] Physical Examination: [HEENT-PERRLA, EOMI. Cranial nerves II through XII grossly intact. TMs clear. Mucous membranes moist. No adenopathy. Cardiovascular-regular rate and rhythm without murmur or ectopy Lungs-clear to auscultation, chest wall stable without crepitus or subcu emphysema Abdomen-normoactive bowel sounds, soft, nontender, no rebound or rigidity, no peritoneal signs. Extremities-intact ?4, normal range of motion, normal pulses, atraumatic] Test Results: [None indicated] Emergency Department Course and Treatment: [Patient was given a carbonated drink and was able to drink it without difficulty. Patient received glucagon 2 mg IV. Patient was able to eat applesauce. Patient feels like the obstructions resolved.] Treatment Plan: [Discharged home in stable condition. Patient will be referred to Dr. Venkatesh Diaz who is on-call for general surgery if she should continue to have similar symptoms may need further investigation such as possibly EGD to evaluate. Patient advised to chew her food into small pieces.] Disposition: [Discharged home in stable condition] Impression: [Esophageal meat impaction-resolved] This note was generated with iCurrent dictation software. It may contain incorrect words, spelling, and punctuation that were not noted in review of the chart prior to signing ED Disposition - Plan for ED Patient: Chief Complaint: Foreign Body Referrals: Josué Price MD [Primary Care Provider] -
--- NOTE | 2017-12-14 20:25 | ED.DEP ---
ED Disposition - Plan for ED Patient: Chief Complaint: Foreign Body Instructions: ED Foreign Body Esophageal Rslv Referrals: Josué Price MD [Primary Care Provider] - Venkatesh Isaacs MD [STAFF PHYSICIAN] - As Needed
[2017-12-14 20:37] VITALS: BP 124/81; PULSE 89; RESP 16; O2SAT 96
== END 2017-12-14 20:42 | disposition home or self-care (01) ==
PROVIDERS: Emergency Provider Emergency Medicine; Family Provider Internal Medicine; PCP Internal Medicine
DX: T18.128A Food in esophagus causing other injury, initial encounter (principal); X58.XXXA Exposure to other specified factors, initial encounter; Y93.9 Activity, unspecified; Y92.9 Unspecified place or not applicable; Y99.9 Unspecified external cause status; E03.9 Hypothyroidism, unspecified; Z79.899 Other long term (current) drug therapy; Z85.3 Personal history of malignant neoplasm of breast; Z90.13 Acquired absence of bilateral breasts and nipples
CPT/HCPCS: 96374; 99282; A4216; J1610

== ENCOUNTER 2017-12-15 14:00 | Outpatient (RCR) | payer MEDICAID, SELFPAY ==
[2017-11-18 00:53] VITALS: BP 121/72; PULSE 68; RESP 16; TEMP 36.4
[2017-11-22 12:51] VITALS: BP 117/75; BP 128/82; PULSE 84; PULSE 96; RESP 16; TEMP 36.6; TEMP 36.8
--- NOTE | 2017-11-22 18:08 | PCM.HBO.PN ---
History of Present Illness Date of Service: 11/22/17 Presenting Chief Complaint: Soft tissue radionecrosis right breast reconstruction. SHARON BARRAGAN is a 47 year old currently undergoing hyperbaric oxygen therapy for soft tissue radionecrosis right breast reconstruction. Progress: Today's hyperbaric oxygen treatment represents her 2nd treatment course and this is treatment #16. She had HBO treatments before her breast reconstruction surgery and is now having additional HBO treatments after her breast reconstruction surgery. Tolerance of hyperbaric oxygen therapy: Hyperbaric oxygen therapy was administered as per the facility protocol. The patient tolerated hyperbaric oxygen therapy well, without complaints or complications. Upon emergence from the hyperbaric chamber, the patient's vital signs remained stable. The patient was discharged in good condition. 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 Allergies/Adverse Reactions: Allergies FIBERGLASS Allergy (Severe, Uncoded 11/23/17 13:23) SEVERE ITCHING AND RASH POULTRY Allergy (Uncoded 10/18/17 11:36) Anaphylaxis Home Medications: Ambulatory Orders Medication Instructions Recorded Sertraline HCl [Zoloft] 150 mg PO DAILY@0600 09/12/17 traZODone [Desyrel] 50 mg PO QHS 09/12/17 Docusate Sodium [Colace] 100 mg PO BID #60 cap 09/25/17 Iron Polysaccharide Complex 150 mg PO DAILYCM #30 cap 09/25/17 [Ferrex 150] levoFLOXacin tablet [Levaquin 500 mg PO .QDAILY #14 tab 09/25/17 tablet] proMETHazine tablet [Phenergan 25 mg PO 4X/DAY PRN PRN #30 tab 09/25/17 tablet] Non-Adherent Bandage [Mepitel] 2 ea TP .QOD #30 bandage 10/04/17 Diazepam [Valium] 10 mg PO BID PRN PRN #20 tab 10/23/17 diazepam 5 mg tablet 5 mg PO TID PRN #20 tab 11/14/17 diazepam 5 mg tablet 5 mg PO TID PRN #20 tab 11/23/17 Maternal Family History: Family History (Last Reviewed 10/18/17 @ 11:35 by Ani Lemus) Unknown No problems noted. Family History: Diabetes, Heart Disease Paternal Family History: Family History (Last Reviewed 10/18/17 @ 11:35 by Ani Lemus) Unknown No problems noted. Family History: No pertinent history Smoking Status: Former smoker Physical Exam Vital Signs Temp Pulse Resp BP 98.2 F 96 16 128/82 H 11/22/17 12:51 11/22/17 12:51 11/22/17 12:51 11/22/17 12:51 Assessment/Plan Active Problems (Last Updated 11/24/17 @ 17:29 by Eveline Chen DO) Radiation skin ulcer of chest (Chronic) radiation skin ulcer right chest wall and breast reconstruction Partial loss of skin graft (Acute) Compromised TRAM flap right breast reconstruction with partial loss Late effect of radiation (Chronic) late effect radiation right breast
[2017-11-24 13:02] VITALS: BP 131/78; BP 141/82; PULSE 79; PULSE 87; RESP 16; RESP 18; TEMP 36.9; TEMP 37
--- NOTE | 2017-11-24 17:24 | PCM.HBO.PN ---
History of Present Illness Date of Service: 11/24/17 Presenting Chief Complaint: Soft tissue radionecrosis right breast reconstruction. 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 This is her 17th such treatment for this session of HBOT. Progress: Patient is tolerating HBO treatment well. She has undergone HBO treatments previously prior to her breast reconstruction surgery and is now having additional HBO treatments after her breast reconstruction surgery. Tolerance of hyperbaric oxygen therapy: Hyperbaric oxygen was administered as per the facility protocol. The patient tolerated hyperbaric oxygen therapy well, without complaints or complications. Upon emergence from the hyperbaric chamber, the patient's vital signs remained stable. The patient was discharged in good condition. 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 Allergies/Adverse Reactions: Allergies FIBERGLASS Allergy (Severe, Uncoded 11/23/17 13:23) SEVERE ITCHING AND RASH POULTRY Allergy (Uncoded 10/18/17 11:36) Anaphylaxis Home Medications: Ambulatory Orders Medication Instructions Recorded Sertraline HCl [Zoloft] 150 mg PO DAILY@0600 09/12/17 traZODone [Desyrel] 50 mg PO QHS 09/12/17 Docusate Sodium [Colace] 100 mg PO BID #60 cap 09/25/17 Iron Polysaccharide Complex 150 mg PO DAILYCM #30 cap 09/25/17 [Ferrex 150] levoFLOXacin tablet [Levaquin 500 mg PO .QDAILY #14 tab 09/25/17 tablet] proMETHazine tablet [Phenergan 25 mg PO 4X/DAY PRN PRN #30 tab 09/25/17 tablet] Non-Adherent Bandage [Mepitel] 2 ea TP .QOD #30 bandage 10/04/17 Diazepam [Valium] 10 mg PO BID PRN PRN #20 tab 10/23/17 diazepam 5 mg tablet 5 mg PO TID PRN #20 tab 11/14/17 diazepam 5 mg tablet 5 mg PO TID PRN #20 tab 11/23/17 Maternal Family History: Family History (Last Reviewed 10/18/17 @ 11:35 by Ani Lemus) Unknown No problems noted. Family History: Diabetes, Heart Disease Paternal Family History: Family History (Last Reviewed 10/18/17 @ 11:35 by Ani Lemus) Unknown No problems noted. Family History: No pertinent history Smoking Status: Former smoker Tobacco Use: Non-smoker Alcohol: None Drugs: None Physical Exam Vital Signs Temp Pulse Resp BP 98.4 F 87 18 131/78 H 11/24/17 13:02 11/24/17 13:02 11/24/17 13:02 11/24/17 13:02 General: Alert, Oriented x3, Cooperative, No apparent distress Psych/Mental Status: Normal Affect, Appropriate Assessment/Plan Active Problems (Last Updated 10/27/17 @ 17:26 by Eveline Chen DO) Radiation skin ulcer of chest (Chronic) radiation skin ulcer right chest wall and breast reconstruction Partial loss of skin graft (Acute) Compromised TRAM flap right breast reconstruction with partial loss Late effect of radiation (Chronic) late effect radiation right breast The patient appears to be tolerating hyperbaric oxygen treatments well and will continue treatment as per the patient's comprehensive medical and wound care treatment plan.
[2017-11-27 12:49] VITALS: BP 113/74; BP 137/83; PULSE 75; PULSE 91; RESP 16; TEMP 36.8; TEMP 36.9
--- NOTE | 2017-11-27 16:32 | HBO.PN.PCM_ITS ---
History of Present Illness Date of Service: 11/27/17 Presenting Chief Complaint: Soft tissue radionecrosis right breast reconstruction. 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 This is her 18th such treatment for this session of HBOT. Progress: Patient is tolerating HBO treatment well. She has undergone HBO treatments previously prior to her breast reconstruction surgery and is now having additional HBO treatments after her breast reconstruction surgery. Tolerance of hyperbaric oxygen therapy: Hyperbaric oxygen was administered as per the facility protocol. The patient tolerated hyperbaric oxygen therapy well , without complaints or complications. Upon emergence from the hyperbaric chamber, the patient's vital signs remained stable. The patient was discharged in good condition. 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 Allergies/Adverse Reactions: Allergies FIBERGLASS Allergy (Severe, Uncoded 11/23/17 13:23) SEVERE ITCHING AND RASH POULTRY Allergy (Uncoded 10/18/17 11:36) Anaphylaxis Home Medications: Ambulatory Orders Medication Instructions Recorded Sertraline HCl [Zoloft] 150 mg PO DAILY@0600 09/12/17 traZODone [Desyrel] 50 mg PO QHS 09/12/17 Docusate Sodium [Colace] 100 mg PO BID #60 cap 09/25/17 Iron Polysaccharide Complex 150 mg PO DAILYCM #30 cap 09/25/17 [Ferrex 150] levoFLOXacin tablet [Levaquin 500 mg PO .QDAILY #14 tab 09/25/17 tablet] proMETHazine tablet [Phenergan 25 mg PO 4X/DAY PRN PRN #30 tab 09/25/17 tablet] Non-Adherent Bandage [Mepitel] 2 ea TP .QOD #30 bandage 10/04/17 Diazepam [Valium] 10 mg PO BID PRN PRN #20 tab 10/23/17 diazepam 5 mg tablet 5 mg PO TID PRN #20 tab 11/14/17 diazepam 5 mg tablet 5 mg PO TID PRN #20 tab 11/23/17 Maternal Family History: Family History (Last Reviewed 10/18/17 @ 11:35 by Ani Lemus) Unknown No problems noted. Family History: Diabetes, Heart Disease Paternal Family History: Family History (Last Reviewed 10/18/17 @ 11:35 by Ani Lemus) Unknown No problems noted. Family History: No pertinent history Smoking Status: Former smoker Tobacco Use: Non-smoker Alcohol: None Drugs: None Physical Exam Vital Signs Temp Pulse Resp BP 98.5 F 91 16 113/74 11/27/17 12:49 11/27/17 12:49 11/27/17 12:49 11/27/17 12:49 General: Alert, Oriented x3, Cooperative, No apparent distress, Well developed, Well nourished HEENT: Atraumatic, PERRLA, EOMI, Normocephalic Lungs: Normal air movement Psych/Mental Status: Normal Affect, Appropriate, Alert and oriented to time, place, person, mood and affect Assessment/Plan Active Problems (Last Updated 11/24/17 @ 17:29 by Eveline Cehn DO) Radiation skin ulcer of chest (Chronic) radiation skin ulcer right chest wall and breast reconstruction Partial loss of skin graft (Acute) Compromised TRAM flap right breast reconstruction with partial loss Late effect of radiation (Chronic) late effect radiation right breast The patient appears to be tolerating hyperbaric oxygen therapy well, which will continue as per the patient's medical plan.
[2017-11-29 13:27] VITALS: BP 107/73; BP 134/84; PULSE 102; PULSE 78; RESP 16; TEMP 36.4; TEMP 37
[2017-11-30 13:31] VITALS: BP 127/79; BP 129/76; PULSE 88; PULSE 98; RESP 16; TEMP 36.6
--- NOTE | 2017-11-30 15:19 | HBO.PN.PCM_ITS ---
History of Present Illness Date of Service: 11/30/17 Presenting Chief Complaint: Soft tissue radionecrosis right breast reconstruction. 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 This is her 20th such treatment for this session of HBOT. Progress: Patient is tolerating HBO treatment well. She has undergone HBO treatments previously prior to her breast reconstruction surgery and is now having additional HBO treatments after her breast reconstruction surgery. Tolerance of hyperbaric oxygen therapy: Hyperbaric oxygen was administered as per the facility protocol. The patient tolerated hyperbaric oxygen therapy well , without complaints or complications. Upon emergence from the hyperbaric chamber, the patient's vital signs remained stable. The patient was discharged in good condition. 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 Allergies/Adverse Reactions: Allergies FIBERGLASS Allergy (Severe, Uncoded 11/23/17 13:23) SEVERE ITCHING AND RASH POULTRY Allergy (Uncoded 10/18/17 11:36) Anaphylaxis Home Medications: Ambulatory Orders Medication Instructions Recorded Sertraline HCl [Zoloft] 150 mg PO DAILY@0600 09/12/17 traZODone [Desyrel] 50 mg PO QHS 09/12/17 Docusate Sodium [Colace] 100 mg PO BID #60 cap 09/25/17 Iron Polysaccharide Complex 150 mg PO DAILYCM #30 cap 09/25/17 [Ferrex 150] levoFLOXacin tablet [Levaquin 500 mg PO .QDAILY #14 tab 09/25/17 tablet] proMETHazine tablet [Phenergan 25 mg PO 4X/DAY PRN PRN #30 tab 09/25/17 tablet] Non-Adherent Bandage [Mepitel] 2 ea TP .QOD #30 bandage 10/04/17 Diazepam [Valium] 10 mg PO BID PRN PRN #20 tab 10/23/17 diazepam 5 mg tablet 5 mg PO TID PRN #20 tab 11/14/17 diazepam 5 mg tablet 5 mg PO TID PRN #20 tab 11/23/17 Maternal Family History: Family History (Last Reviewed 10/18/17 @ 11:35 by Ani Lemus) Unknown No problems noted. Family History: Diabetes, Heart Disease Paternal Family History: Family History (Last Reviewed 10/18/17 @ 11:35 by Ani Lemus) Unknown No problems noted. Family History: No pertinent history Smoking Status: Former smoker Tobacco Use: Non-smoker Alcohol: None Drugs: None Physical Exam Vital Signs Temp Pulse Resp BP 97.9 F 88 16 129/76 H 11/30/17 13:31 11/30/17 13:31 11/30/17 13:31 11/30/17 13:31 General: Alert, Oriented x3, Cooperative, No apparent distress HEENT: Atraumatic, PERRLA, Normocephalic, TM's Clear Lungs: Clear to auscultation, Normal air movement, No rhonchi, No wheeze, No rales Cardiovascular: Regular rate, Regular Rhythm, Normal S1, Normal S2 Psych/Mental Status: Normal Affect, Appropriate, Alert and oriented to time, place, person, mood and affect Assessment/Plan Active Problems (Last Updated 11/24/17 @ 17:29 by Eveline Chen DO) Radiation skin ulcer of chest (Chronic) radiation skin ulcer right chest wall and breast reconstruction Partial loss of skin graft (Acute) Compromised TRAM flap right breast reconstruction with partial loss Late effect of radiation (Chronic) late effect radiation right breast The patient appears to be tolerating hyperbaric oxygen therapy well, which will continue as per the patient's medical plan.
[2017-12-01 13:00] VITALS: BP 117/70; BP 118/77; PULSE 90; PULSE 93; RESP 16; TEMP 36.8; TEMP 37.4
--- NOTE | 2017-12-01 20:01 | HBO.PN.PCM_ITS ---
History of Present Illness Date of Service: 12/01/17 Presenting Chief Complaint: Soft tissue radionecrosis right breast reconstruction. 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 This is her 21st such treatment for this session of HBOT. Progress: Patient is tolerating HBO treatment well. She has undergone HBO treatments previously prior to her breast reconstruction surgery and is now having additional HBO treatments after her breast reconstruction surgery. Tolerance of hyperbaric oxygen therapy: Hyperbaric oxygen was administered as per the facility protocol. The patient tolerated hyperbaric oxygen therapy well , without complaints or complications. Upon emergence from the hyperbaric chamber, the patient's vital signs remained stable. The patient was discharged in good condition. 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 Allergies/Adverse Reactions: Allergies FIBERGLASS Allergy (Severe, Uncoded 11/23/17 13:23) SEVERE ITCHING AND RASH POULTRY Allergy (Uncoded 10/18/17 11:36) Anaphylaxis Home Medications: Ambulatory Orders Medication Instructions Recorded Sertraline HCl [Zoloft] 150 mg PO DAILY@0600 09/12/17 traZODone [Desyrel] 50 mg PO QHS 09/12/17 Docusate Sodium [Colace] 100 mg PO BID #60 cap 09/25/17 Iron Polysaccharide Complex 150 mg PO DAILYCM #30 cap 09/25/17 [Ferrex 150] levoFLOXacin tablet [Levaquin 500 mg PO .QDAILY #14 tab 09/25/17 tablet] proMETHazine tablet [Phenergan 25 mg PO 4X/DAY PRN PRN #30 tab 09/25/17 tablet] Non-Adherent Bandage [Mepitel] 2 ea TP .QOD #30 bandage 10/04/17 Diazepam [Valium] 10 mg PO BID PRN PRN #20 tab 10/23/17 diazepam 5 mg tablet 5 mg PO TID PRN #20 tab 11/14/17 diazepam 5 mg tablet 5 mg PO TID PRN #20 tab 11/23/17 Maternal Family History: Family History (Last Reviewed 10/18/17 @ 11:35 by Ani Lemus) Unknown No problems noted. Family History: Diabetes, Heart Disease Paternal Family History: Family History (Last Reviewed 10/18/17 @ 11:35 by Ani Lemus) Unknown No problems noted. Family History: No pertinent history Smoking Status: Former smoker Tobacco Use: Non-smoker Alcohol: None Drugs: None Physical Exam Vital Signs Temp Pulse Resp BP 99.4 F H 93 16 117/70 12/01/17 13:00 12/01/17 13:00 12/01/17 13:00 12/01/17 13:00 General: Alert, Oriented x3, Cooperative, No apparent distress Psych/Mental Status: Normal Affect, Appropriate Assessment/Plan Active Problems (Last Updated 11/24/17 @ 17:29 by Eveline Chen DO) Radiation skin ulcer of chest (Chronic) radiation skin ulcer right chest wall and breast reconstruction Partial loss of skin graft (Acute) Compromised TRAM flap right breast reconstruction with partial loss Late effect of radiation (Chronic) late effect radiation right breast The patient appears to be tolerating hyperbaric oxygen therapy well, which will continue as per the patient's medical plan.
[2017-12-04 12:55] VITALS: BP 111/66; BP 130/75; PULSE 76; PULSE 90; RESP 16; TEMP 36.8
--- NOTE | 2017-12-04 16:15 | PCM.HBO.PN ---
History of Present Illness Date of Service: 12/04/17 Presenting Chief Complaint: Soft tissue radionecrosis right breast reconstruction. 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 Progress: Today's hyperbaric oxygen treatment represents her 2nd treatment course and this is treatment #22. She had HBO treatments before her breast reconstruction surgery and is now having additional HBO treatments after her breast reconstruction surgery. Tolerance of hyperbaric oxygen therapy: Hyperbaric oxygen therapy was administered as per the facility protocol. The patient tolerated hyperbaric oxygen therapy well, without complaints or complications. Upon emergence from the hyperbaric chamber, the patient's vital signs remained stable. The patient was discharged in good condition. 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 Allergies/Adverse Reactions: Allergies FIBERGLASS Allergy (Severe, Uncoded 11/23/17 13:23) SEVERE ITCHING AND RASH POULTRY Allergy (Uncoded 10/18/17 11:36) Anaphylaxis Home Medications: Ambulatory Orders Medication Instructions Recorded Sertraline HCl [Zoloft] 150 mg PO DAILY@0600 09/12/17 traZODone [Desyrel] 50 mg PO QHS 09/12/17 Docusate Sodium [Colace] 100 mg PO BID #60 cap 09/25/17 Iron Polysaccharide Complex 150 mg PO DAILYCM #30 cap 09/25/17 [Ferrex 150] levoFLOXacin tablet [Levaquin 500 mg PO .QDAILY #14 tab 09/25/17 tablet] proMETHazine tablet [Phenergan 25 mg PO 4X/DAY PRN PRN #30 tab 09/25/17 tablet] Non-Adherent Bandage [Mepitel] 2 ea TP .QOD #30 bandage 10/04/17 Diazepam [Valium] 10 mg PO BID PRN PRN #20 tab 10/23/17 diazepam 5 mg tablet 5 mg PO TID PRN #20 tab 11/14/17 diazepam 5 mg tablet 5 mg PO TID PRN #20 tab 11/23/17 Maternal Family History: Family History (Last Reviewed 10/18/17 @ 11:35 by Ani Lemus) Unknown No problems noted. Family History: Diabetes, Heart Disease Paternal Family History: Family History (Last Reviewed 10/18/17 @ 11:35 by Ani Lemus) Unknown No problems noted. Family History: No pertinent history Smoking Status: Former smoker Tobacco Use: Non-smoker Alcohol: None Drugs: None Physical Exam Vital Signs Temp Pulse Resp BP 98.3 F 90 16 111/66 12/04/17 12:55 12/04/17 12:55 12/04/17 12:55 12/04/17 12:55 General: Alert, Oriented x3, Cooperative, No apparent distress, Well developed, Well nourished HEENT: Atraumatic, PERRLA, EOMI, Normocephalic Lungs: Normal air movement Psych/Mental Status: Normal Affect, Appropriate, Alert and oriented to time, place, person, mood and affect Assessment/Plan Patient appears to be tolerating hyperbaric oxygen therapy well, which will continue as per the patient's medical plan.
[2017-12-07 13:51] VITALS: BP 112/76; BP 114/41; PULSE 84; PULSE 95; RESP 16; TEMP 36.6
--- NOTE | 2017-12-07 17:22 | PCM.HBO.PN ---
History of Present Illness Date of Service: 12/07/17 Presenting Chief Complaint: Soft tissue radionecrosis right breast reconstruction. 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 Progress: Today's hyperbaric oxygen treatment represents her 2nd treatment course. She had HBO treatments before her breast reconstruction surgery and is now having additional HBO treatments after her breast reconstruction surgery. Tolerance of hyperbaric oxygen therapy: Hyperbaric oxygen therapy was administered as per the facility protocol. The patient tolerated hyperbaric oxygen therapy well, without complaints or complications. Upon emergence from the hyperbaric chamber, the patient's vital signs remained stable. The patient was discharged in good condition. 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 Allergies/Adverse Reactions: Allergies FIBERGLASS Allergy (Severe, Uncoded 11/23/17 13:23) SEVERE ITCHING AND RASH POULTRY Allergy (Uncoded 10/18/17 11:36) Anaphylaxis Home Medications: Ambulatory Orders Medication Instructions Recorded Sertraline HCl [Zoloft] 150 mg PO DAILY@0600 09/12/17 traZODone [Desyrel] 50 mg PO QHS 09/12/17 Docusate Sodium [Colace] 100 mg PO BID #60 cap 09/25/17 Iron Polysaccharide Complex 150 mg PO DAILYCM #30 cap 09/25/17 [Ferrex 150] levoFLOXacin tablet [Levaquin 500 mg PO .QDAILY #14 tab 09/25/17 tablet] proMETHazine tablet [Phenergan 25 mg PO 4X/DAY PRN PRN #30 tab 09/25/17 tablet] Non-Adherent Bandage [Mepitel] 2 ea TP .QOD #30 bandage 10/04/17 Diazepam [Valium] 10 mg PO BID PRN PRN #20 tab 10/23/17 diazepam 5 mg tablet 5 mg PO TID PRN #20 tab 11/14/17 diazepam 5 mg tablet 5 mg PO TID PRN #20 tab 11/23/17 Maternal Family History: Family History (Last Reviewed 10/18/17 @ 11:35 by Ani Lemus) Unknown No problems noted. Family History: Diabetes, Heart Disease Paternal Family History: Family History (Last Reviewed 10/18/17 @ 11:35 by Ani Lemus) Unknown No problems noted. Family History: No pertinent history Smoking Status: Former smoker Tobacco Use: Non-smoker Alcohol: None Drugs: None Physical Exam Vital Signs Temp Pulse Resp BP 97.9 F 95 16 114/41 L 12/07/17 13:51 12/07/17 13:51 12/07/17 13:51 12/07/17 13:51 General: Alert, Oriented x3, Cooperative, No apparent distress HEENT: Atraumatic, PERRLA, Normocephalic, TM's Clear, EAC Clear Lungs: Clear to auscultation, Normal air movement, No rhonchi, No wheeze, No rales Cardiovascular: Regular rate, Regular Rhythm, Normal S1, Normal S2 Psych/Mental Status: Normal Affect, Appropriate, Alert and oriented to time, place, person, mood and affect Assessment/Plan Active Problems (Last Updated 11/24/17 @ 17:29 by Eveline Chen DO) Radiation skin ulcer of chest (Chronic) radiation skin ulcer right chest wall and breast reconstruction Partial loss of skin graft (Acute) Compromised TRAM flap right breast reconstruction with partial loss Late effect of radiation (Chronic) late effect radiation right breast Patient appears to be tolerating hyperbaric oxygen therapy well, which will continue as per the patient's medical plan.
[2017-12-08 10:49] VITALS: BP 111/91; PULSE 96; RESP 16; TEMP 36.6
--- NOTE | 2017-12-08 12:33 | PCM.HBO.PN ---
History of Present Illness Date of Service: 12/08/17 Presenting Chief Complaint: Soft tissue radionecrosis right breast reconstruction. 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 Progress: Today's hyperbaric oxygen treatment represents her treatment course. She had HBO treatments before her breast reconstruction surgery and is now having additional HBO treatments after her breast reconstruction surgery. Tolerance of hyperbaric oxygen therapy: Hyperbaric oxygen therapy was administered as per the facility protocol. The patient tolerated hyperbaric oxygen therapy well, without complaints or complications. Upon emergence from the hyperbaric chamber, the patient's vital signs remained stable. The patient was discharged in good condition. 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 Allergies/Adverse Reactions: Allergies FIBERGLASS Allergy (Severe, Uncoded 11/23/17 13:23) SEVERE ITCHING AND RASH POULTRY Allergy (Uncoded 10/18/17 11:36) Anaphylaxis Home Medications: Ambulatory Orders Medication Instructions Recorded Sertraline HCl [Zoloft] 150 mg PO DAILY@0600 09/12/17 traZODone [Desyrel] 50 mg PO QHS 09/12/17 Docusate Sodium [Colace] 100 mg PO BID #60 cap 09/25/17 Iron Polysaccharide Complex 150 mg PO DAILYCM #30 cap 09/25/17 [Ferrex 150] levoFLOXacin tablet [Levaquin 500 mg PO .QDAILY #14 tab 09/25/17 tablet] proMETHazine tablet [Phenergan 25 mg PO 4X/DAY PRN PRN #30 tab 09/25/17 tablet] Non-Adherent Bandage [Mepitel] 2 ea TP .QOD #30 bandage 10/04/17 Diazepam [Valium] 10 mg PO BID PRN PRN #20 tab 08/06/18 diazepam 5 mg tablet 5 mg PO TID PRN #20 tab 11/14/17 diazepam 5 mg tablet 5 mg PO TID PRN #20 tab 11/23/17 Maternal Family History: Family History (Last Reviewed 10/18/17 @ 11:35 by Ani Lemus) Unknown No problems noted. Family History: Diabetes, Heart Disease Paternal Family History: Family History (Last Reviewed 10/18/17 @ 11:35 by Ani Lemus) Unknown No problems noted. Family History: No pertinent history Smoking Status: Former smoker Tobacco Use: Non-smoker Alcohol: None Drugs: None Physical Exam Vital Signs Temp Pulse Resp BP 98 F 96 16 111/91 H 12/08/17 10:49 12/08/17 10:49 12/08/17 10:49 12/08/17 10:49 Assessment/Plan Active Problems (Last Updated 11/24/17 @ 17:29 by Eveline Chen DO) Radiation skin ulcer of chest (Chronic) radiation skin ulcer right chest wall and breast reconstruction Partial loss of skin graft (Acute) Compromised TRAM flap right breast reconstruction with partial loss Late effect of radiation (Chronic) late effect radiation right breast Patient appears to be tolerating hyperbaric oxygen therapy well, which will continue as per the patient's medical plan.
[2017-12-11 12:21] VITALS: BP 113/73; BP 131/85; PULSE 79; PULSE 98; RESP 16; TEMP 36.3; TEMP 36.6
--- NOTE | 2017-12-11 15:56 | PCM.HBO.PN ---
History of Present Illness Date of Service: 12/11/17 Presenting Chief Complaint: Soft tissue radionecrosis right breast reconstruction. 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 Progress: Today's hyperbaric oxygen treatment represents her 25th treatment course. She had HBO treatments before her breast reconstruction surgery and is now having additional HBO treatments after her breast reconstruction surgery. Tolerance of hyperbaric oxygen therapy: Hyperbaric oxygen therapy was administered as per the facility protocol. The patient tolerated hyperbaric oxygen therapy well, without complaints or complications. Upon emergence from the hyperbaric chamber, the patient's vital signs remained stable. The patient was discharged in good condition. 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 Allergies/Adverse Reactions: Allergies FIBERGLASS Allergy (Severe, Uncoded 11/23/17 13:23) SEVERE ITCHING AND RASH POULTRY Allergy (Uncoded 10/18/17 11:36) Anaphylaxis Home Medications: Ambulatory Orders Medication Instructions Recorded Sertraline HCl [Zoloft] 150 mg PO DAILY@0600 09/12/17 traZODone [Desyrel] 50 mg PO QHS 09/12/17 Docusate Sodium [Colace] 100 mg PO BID #60 cap 09/25/17 Iron Polysaccharide Complex 150 mg PO DAILYCM #30 cap 09/25/17 [Ferrex 150] levoFLOXacin tablet [Levaquin 500 mg PO .QDAILY #14 tab 09/25/17 tablet] proMETHazine tablet [Phenergan 25 mg PO 4X/DAY PRN PRN #30 tab 09/25/17 tablet] Non-Adherent Bandage [Mepitel] 2 ea TP .QOD #30 bandage 10/04/17 Diazepam [Valium] 10 mg PO BID PRN PRN #20 tab 10/23/17 diazepam 5 mg tablet 5 mg PO TID PRN #20 tab 11/14/17 diazepam 5 mg tablet 5 mg PO TID PRN #20 tab 11/23/17 Maternal Family History: Family History (Last Reviewed 10/18/17 @ 11:35 by Ani Lemus) Unknown No problems noted. Family History: Diabetes, Heart Disease Paternal Family History: Family History (Last Reviewed 10/18/17 @ 11:35 by Ani Lemus) Unknown No problems noted. Family History: No pertinent history Smoking Status: Former smoker Tobacco Use: Non-smoker Alcohol: None Drugs: None Physical Exam Vital Signs Temp Pulse Resp BP 97.8 F 98 16 113/73 12/11/17 12:21 12/11/17 12:21 12/11/17 12:21 12/11/17 12:21 General: Alert, Oriented x3, Cooperative, No apparent distress, Well developed, Well nourished HEENT: Atraumatic, PERRLA, EOMI, Normocephalic Lungs: Normal air movement Psych/Mental Status: Normal Affect, Appropriate, Alert and oriented to time, place, person, mood and affect Assessment/Plan Active Problems (Last Updated 11/24/17 @ 17:29 by Eveline Chen DO) Radiation skin ulcer of chest (Chronic) radiation skin ulcer right chest wall and breast reconstruction Partial loss of skin graft (Acute) Compromised TRAM flap right breast reconstruction with partial loss 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
[2017-12-13 12:20] VITALS: BP 116/75; BP 127/77; PULSE 74; PULSE 98; RESP 16; TEMP 36.7; TEMP 36.8
--- NOTE | 2017-12-13 15:50 | HBO.PN.PCM_ITS ---
History of Present Illness Date of Service: 12/13/17 Presenting Chief Complaint: Soft tissue radionecrosis right breast re construction. 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 Progress: Today's hyperbaric oxygen treatment represents her treatment course. She had HBO treatments before her breast reconstruction surgery and is now having additional HBO treatments after her breast reconstruction surgery. Tolerance of hyperbaric oxygen therapy: Hyperbaric oxygen therapy was administered as per the facility protocol. The patient tolerated hyperbaric oxygen therapy well, without complaints or complications. Upon emergence from the hyperbaric chamber, the patient's vital signs remained stable. The patient was discharged in good condition. 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 Allergies/Adverse Reactions: Allergies FIBERGLASS Allergy (Severe, Uncoded 11/23/17 13:23) SEVERE ITCHING AND RASH POULTRY Allergy (Uncoded 10/18/17 11:36) Anaphylaxis Home Medications: Ambulatory Orders Medication Instructions Recorded Sertraline HCl [Zoloft] 150 mg PO DAILY@0600 09/12/17 traZODone [Desyrel] 50 mg PO QHS 09/12/17 Docusate Sodium [Colace] 100 mg PO BID #60 cap 09/25/17 Iron Polysaccharide Complex 150 mg PO DAILYCM #30 cap 09/25/17 [Ferrex 150] levoFLOXacin tablet [Levaquin 500 mg PO .QDAILY #14 tab 09/25/17 tablet] proMETHazine tablet [Phenergan 25 mg PO 4X/DAY PRN PRN #30 tab 09/25/17 tablet] Non-Adherent Bandage [Mepitel] 2 ea TP .QOD #30 bandage 10/04/17 Diazepam [Valium] 10 mg PO BID PRN PRN #20 tab 10/23/17 diazepam 5 mg tablet 5 mg PO TID PRN #20 tab 11/14/17 diazepam 5 mg tablet 5 mg PO TID PRN #20 tab 11/23/17 Maternal Family History: Family History (Last Reviewed 10/18/17 @ 11:35 by Ani Lemus) Unknown No problems noted. Family History: Diabetes, Heart Disease Paternal Family History: Family History (Last Reviewed 10/18/17 @ 11:35 by Ani Lemus) Unknown No problems noted. Family History: No pertinent history Smoking Status: Former smoker Tobacco Use: Non-smoker Alcohol: None Drugs: None Physical Exam Vital Signs Temp Pulse Resp BP 98.1 F 98 16 127/77 H 12/13/17 12:20 12/13/17 12:20 12/13/17 12:20 12/13/17 12:20 General: Alert, Oriented x3, Cooperative, No apparent distress HEENT: Atraumatic, TM's Clear Lungs: Clear to auscultation, Normal air movement, No rhonchi, No wheeze, No rales Cardiovascular: Regular rate, Regular Rhythm, Normal S1, Normal S2, No murmurs Psych/Mental Status: Normal Affect, Alert and oriented to time, place, person, mood and affect Assessment/Plan Active Problems (Last Updated 11/24/17 @ 17:29 by Eveline Chen DO) Radiation skin ulcer of chest (Chronic) radiation skin ulcer right chest wall and breast reconstruction Partial loss of skin graft (Acute) Compromised TRAM flap right breast reconstruction with partial loss 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
[2017-12-14 13:57] VITALS: BP 119/80; PULSE 102; RESP 20; TEMP 36.5
--- NOTE | 2017-12-14 17:46 | HBO.PN.PCM_ITS ---
History of Present Illness Date of Service: 12/14/17 Presenting Chief Complaint: Soft tissue radionecrosis right breast re construction. 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 Progress: Today's hyperbaric oxygen treatment represents her treatment course. She had HBO treatments before her breast reconstruction surgery and is now having additional HBO treatments after her breast reconstruction surgery. Tolerance of hyperbaric oxygen therapy: Hyperbaric oxygen therapy was administered as per the facility protocol. The patient tolerated hyperbaric oxygen therapy well, without complaints or complications. Upon emergence from the hyperbaric chamber, the patient's vital signs remained stable. The patient was discharged in good condition. 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 Allergies/Adverse Reactions: Allergies FIBERGLASS Allergy (Severe, Uncoded 11/23/17 13:23) SEVERE ITCHING AND RASH POULTRY Allergy (Uncoded 10/18/17 11:36) Anaphylaxis Home Medications: Ambulatory Orders Medication Instructions Recorded Sertraline HCl [Zoloft] 150 mg PO DAILY@0600 09/12/17 traZODone [Desyrel] 50 mg PO QHS 09/12/17 Docusate Sodium [Colace] 100 mg PO BID #60 cap 09/25/17 Iron Polysaccharide Complex 150 mg PO DAILYCM #30 cap 09/25/17 [Ferrex 150] levoFLOXacin tablet [Levaquin 500 mg PO .QDAILY #14 tab 09/25/17 tablet] proMETHazine tablet [Phenergan 25 mg PO 4X/DAY PRN PRN #30 tab 09/25/17 tablet] Non-Adherent Bandage [Mepitel] 2 ea TP .QOD #30 bandage 10/04/17 Diazepam [Valium] 10 mg PO BID PRN PRN #20 tab 10/23/17 diazepam 5 mg tablet 5 mg PO TID PRN #20 tab 11/14/17 diazepam 5 mg tablet 5 mg PO TID PRN #20 tab 11/23/17 Maternal Family History: Family History (Last Reviewed 10/18/17 @ 11:35 by Ani Lemus) Unknown No problems noted. Family History: Diabetes, Heart Disease Paternal Family History: Family History (Last Reviewed 10/18/17 @ 11:35 by Ani Lemus) Unknown No problems noted. Family History: No pertinent history Smoking Status: Former smoker Tobacco Use: Non-smoker Alcohol: None Drugs: None Physical Exam Vital Signs Temp Pulse Resp BP 97.7 F L 102 H 20 H 119/80 12/14/17 13:57 12/14/17 13:57 12/14/17 13:57 12/14/17 13:57 General: Alert, Oriented x3, Cooperative, No apparent distress, Well developed, Well nourished HEENT: Atraumatic, PERRLA, TM's Clear Lungs: Clear to auscultation, Normal air movement Cardiovascular: Regular rate, Regular Rhythm Psych/Mental Status: Normal Affect, Appropriate, Alert and oriented to time, place, person, mood and affect Assessment/Plan Active Problems (Last Updated 11/24/17 @ 17:29 by Eveline Chen DO) Radiation skin ulcer of chest (Chronic) radiation skin ulcer right chest wall and breast reconstruction Partial loss of skin graft (Acute) Compromised TRAM flap right breast reconstruction with partial loss 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
[2017-12-18 14:33] VITALS: BP 120/69; PULSE 88; RESP 16; TEMP 36.6
== END 2017-12-17 23:59 ==
LOC: WC 14:00
PROVIDERS: Family Provider Internal Medicine; PCP Internal Medicine; Visit Provider Surgery
DX: L59.8 Other specified disorders of the skin and subcutaneous tissue related to radiation (principal); Y84.2 Radiological procedure and radiotherapy as the cause of abnormal reaction of the patient, or of later complication, without mention of misadventure at the time of the procedure; Z87.891 Personal history of nicotine dependence; Z17.1 Estrogen receptor negative status [ER-]
CPT/HCPCS: 99183; G0277

== ENCOUNTER 2018-01-05 12:00 | Outpatient (RCR) | payer MEDICAID, SELFPAY ==
[2017-12-18 00:45] VITALS: BP 119/80; PULSE 102; RESP 20; TEMP 36.5
[2017-12-18 14:10] VITALS: BP 120/69; BP 120/82; PULSE 76; PULSE 88; RESP 16; TEMP 36.6; TEMP 36.8
--- NOTE | 2017-12-18 15:10 | PCM.HBO.PN ---
History of Present Illness Presenting Chief Complaint: Soft tissue radionecrosis right breast reconstruction. SHARON BARRAGAN is a 47 year old currently undergoing hyperbaric oxygen therapy for soft tissue radionecrosis - right breast reconstruction. Progress: Today's session represents the 28th such session of hyperbaric oxygen therapy. The patient appears to be tolerating well. Tolerance of hyperbaric oxygen therapy: Hyperbaric oxygen therapy was administered as per the facility's protocol. Patient tolerated hyperbaric oxygen therapy well, without complaints or complications. Upon emergence from the hyperbaric chamber, the patient's vital signs remained stable. The patient was discharged in good condition. 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 Allergies/Adverse Reactions: Allergies FIBERGLASS Allergy (Severe, Uncoded 12/14/17 18:41) SEVERE ITCHING AND RASH POULTRY Allergy (Uncoded 12/14/17 18:41) Anaphylaxis Home Medications: Ambulatory Orders Medication Instructions Recorded Sertraline HCl [Zoloft] 150 mg PO DAILY@0600 09/12/17 traZODone [Desyrel] 50 mg PO QHS 09/12/17 Iron Polysaccharide Complex 150 mg PO DAILYCM #30 cap 09/25/17 [Ferrex 150] Gabapentin [Neurontin] 600 mg PO TID 12/14/17 Loratadine [Claritin] 10 mg PO DAILY 12/14/17 Maternal Family History: Family History (Last Reviewed 10/18/17 @ 11:35 by Ani Lemus) Unknown No problems noted. Family History: Diabetes, Heart Disease Paternal Family History: Family History (Last Reviewed 10/18/17 @ 11:35 by Ani Lemus) Unknown No problems noted. Family History: No pertinent history Smoking Status: Former smoker Tobacco Use: Non-smoker Physical Exam Vital Signs Temp Pulse Resp BP 97.7 F L 102 H 20 H 119/80 12/18/17 00:45 10/01/18 00:45 12/18/17 00:45 12/18/17 00:45 General: Alert, Oriented x3, Cooperative, No apparent distress, Well developed, Well nourished HEENT: Atraumatic, PERRLA, EOMI, Normocephalic Lungs: Normal air movement Psych/Mental Status: Normal Affect, Appropriate, Alert and oriented to time, place, person, mood and affect Assessment/Plan The patient appears to be tolerating hyperbaric oxygen therapy well, which will continue as per the patient's medical plan.
[2017-12-19 14:15] VITALS: BP 117/67; BP 139/86; PULSE 106; PULSE 82; RESP 16; RESP 18; TEMP 36.6; TEMP 36.8
--- NOTE | 2017-12-19 16:28 | PCM.HBO.PN ---
History of Present Illness Date of Service: 12/19/17 Presenting Chief Complaint: Soft tissue radionecrosis right breast reconstruction. SHARON BARRAGAN is a 47 year old currently undergoing hyperbaric oxygen therapy for soft tissue radionecrosis - right breast reconstruction. Progress: Today's session represents the 29th such session of hyperbaric oxygen therapy. The patient appears to be tolerating well. Tolerance of hyperbaric oxygen therapy: Hyperbaric oxygen therapy was administered as per the facility's protocol. Patient tolerated hyperbaric oxygen therapy well, without complaints or complications. Upon emergence from the hyperbaric chamber, the patient's vital signs remained stable. The patient was discharged in good condition. 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 Allergies/Adverse Reactions: Allergies FIBERGLASS Allergy (Severe, Uncoded 12/14/17 18:41) SEVERE ITCHING AND RASH POULTRY Allergy (Uncoded 12/14/17 18:41) Anaphylaxis Home Medications: Ambulatory Orders Medication Instructions Recorded Sertraline HCl [Zoloft] 150 mg PO DAILY@0600 09/12/17 traZODone [Desyrel] 50 mg PO QHS 09/12/17 Iron Polysaccharide Complex 150 mg PO DAILYCM #30 cap 09/25/17 [Ferrex 150] Gabapentin [Neurontin] 600 mg PO TID 12/14/17 Loratadine [Claritin] 10 mg PO DAILY 12/14/17 Maternal Family History: Family History (Last Reviewed 10/18/17 @ 11:35 by Ani Lemus) Unknown No problems noted. Family History: Diabetes, Heart Disease Paternal Family History: Family History (Last Reviewed 10/18/17 @ 11:35 by Ani Lemus) Unknown No problems noted. Family History: No pertinent history Smoking Status: Former smoker Tobacco Use: Non-smoker Physical Exam Vital Signs Temp Pulse Resp BP 97.9 F 106 H 18 139/86 H 10/02/18 14:15 12/19/17 14:15 12/19/17 14:15 12/19/17 14:15 General: Alert, Oriented x3 HEENT: Atraumatic, PERRLA, TM's Clear Lungs: Clear to auscultation, Normal air movement Cardiovascular: Regular rate, Regular Rhythm Psych/Mental Status: Normal Affect, Appropriate Assessment/Plan Patient appears to be tolerating hyperbaric oxygen therapy well, which we will continue as per the patient's medical plan.
--- NOTE | 2017-12-19 16:33 | HBO.PN.PCM_ITS ---
History of Present Illness Date of Service: 12/19/17 Presenting Chief Complaint: Soft tissue radionecrosis right breast re construction. SHARON BARRAGAN is a 47 year old currently undergoing hyperbaric oxygen therapy for soft tissue radionecrosis - right breast reconstruction. Progress: Today's session represents the 29th such session of hyperbaric oxygen therapy. The patient appears to be tolerating well. Tolerance of hyperbaric oxygen therapy: Hyperbaric oxygen therapy was administered as per the facility's protocol. Patient tolerated hyperbaric oxygen therapy well, without complaints or complications. Upon emergence from the hyperbaric chamber, the patient's vital signs remained stable. The patient was discharged in good condition. 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 Allergies/Adverse Reactions: Allergies FIBERGLASS Allergy (Severe, Uncoded 12/14/17 18:41) SEVERE ITCHING AND RASH POULTRY Allergy (Uncoded 12/14/17 18:41) Anaphylaxis Home Medications: Ambulatory Orders Medication Instructions Recorded Sertraline HCl [Zoloft] 150 mg PO DAILY@0600 09/12/17 traZODone [Desyrel] 50 mg PO QHS 09/12/17 Iron Polysaccharide Complex 150 mg PO DAILYCM #30 cap 09/25/17 [Ferrex 150] Gabapentin [Neurontin] 600 mg PO TID 12/14/17 Loratadine [Claritin] 10 mg PO DAILY 12/14/17 Maternal Family History: Family History (Last Reviewed 10/18/17 @ 11:35 by Ani Lemus) Unknown No problems noted. Family History: Diabetes, Heart Disease Paternal Family History: Family History (Last Reviewed 10/18/17 @ 11:35 by Ani Lemus) Unknown No problems noted. Family History: No pertinent history Smoking Status: Former smoker Tobacco Use: Non-smoker Physical Exam Vital Signs Temp Pulse Resp BP 97.9 F 106 H 18 139/86 H 12/19/17 14:15 12/19/17 14:15 12/19/17 14:15 12/19/17 14:15 General: Alert, Oriented x3 HEENT: Atraumatic, PERRLA, TM's Clear Lungs: Clear to auscultation, Normal air movement Cardiovascular: Regular rate, Regular Rhythm Psych/Mental Status: Normal Affect, Appropriate Assessment/Plan Patient appears to be tolerating hyperbaric oxygen therapy well, which we will continue as per the patient's medical plan.
[2017-12-20 12:00] VITALS: BP 108/73; BP 125/71; PULSE 111; PULSE 78; RESP 16; TEMP 36.6; TEMP 36.9
--- NOTE | 2017-12-20 13:38 | HBO.PN.PCM_ITS ---
History of Present Illness Date of Service: 12/20/17 Presenting Chief Complaint: Soft tissue radionecrosis right breast re construction. SHARON BARRAGAN is a 47 year old currently undergoing hyperbaric oxygen therapy for soft tissue radionecrosis - right breast reconstruction. Progress: Today's session represents the 30th such session of hyperbaric oxygen therapy. The patient appears to be tolerating well. Tolerance of hyperbaric oxygen therapy: Hyperbaric oxygen therapy was administered as per the facility's protocol. Patient tolerated hyperbaric oxygen therapy well, without complaints or complications. Upon emergence from the hyperbaric chamber, the patient's vital signs remained stable. The patient was discharged in good condition. 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 Allergies/Adverse Reactions: Allergies FIBERGLASS Allergy (Severe, Uncoded 12/14/17 18:41) SEVERE ITCHING AND RASH POULTRY Allergy (Uncoded 12/14/17 18:41) Anaphylaxis Home Medications: Ambulatory Orders Medication Instructions Recorded Sertraline HCl [Zoloft] 150 mg PO DAILY@0600 09/12/17 traZODone [Desyrel] 50 mg PO QHS 09/12/17 Iron Polysaccharide Complex 150 mg PO DAILYCM #30 cap 09/25/17 [Ferrex 150] Gabapentin [Neurontin] 600 mg PO TID 12/14/17 Loratadine [Claritin] 10 mg PO DAILY 12/14/17 Maternal Family History: Family History (Last Reviewed 10/18/17 @ 11:35 by Ani Lemus) Unknown No problems noted. Family History: Diabetes, Heart Disease Paternal Family History: Family History (Last Reviewed 10/18/17 @ 11:35 by Ani Lemus) Unknown No problems noted. Family History: No pertinent history Smoking Status: Former smoker Tobacco Use: Non-smoker Physical Exam Vital Signs Temp Pulse Resp BP 98.5 F 111 H 16 125/71 H 12/20/17 12:00 12/20/17 12:00 12/20/17 12:00 12/20/17 12:00 General: Alert, Oriented x3, Cooperative, No apparent distress HEENT: Atraumatic, - - unable to clearly visualize TM bilat secondary to some cerumen, not obstructed. Lungs: Clear to auscultation, Normal air movement, No rhonchi, No wheeze, No rales Cardiovascular: Regular rate, Regular Rhythm, Normal S1, Normal S2, No murmurs Psych/Mental Status: Normal Affect, Appropriate, Alert and oriented to time, place, person, mood and affect Assessment/Plan Patient appears to be tolerating hyperbaric oxygen therapy well, which we will continue as per the patient's medical plan.
[2017-12-22 12:34] VITALS: BP 102/71; BP 117/83; PULSE 76; PULSE 91; RESP 16; TEMP 36.3; TEMP 36.6
--- NOTE | 2017-12-22 17:02 | PCM.HBO.PN ---
History of Present Illness Presenting Chief Complaint: Soft tissue radionecrosis right breast reconstruction. SHARON BARRAGAN is a 47 year old currently undergoing hyperbaric oxygen therapy for soft tissue radionecrosis - right breast reconstruction. Progress: Today's session represents the 31st such session of hyperbaric oxygen therapy. The patient appears to be tolerating well. Tolerance of hyperbaric oxygen therapy: Hyperbaric oxygen therapy was administered as per the facility's protocol. Patient tolerated hyperbaric oxygen therapy well, without complaints or complications. Upon emergence from the hyperbaric chamber, the patient's vital signs remained stable. The patient was discharged in good condition. 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 Allergies/Adverse Reactions: Allergies FIBERGLASS Allergy (Severe, Uncoded 12/21/17 13:35) SEVERE ITCHING AND RASH POULTRY Allergy (Uncoded 12/21/17 13:35) Anaphylaxis Home Medications: Ambulatory Orders Medication Instructions Recorded Sertraline HCl [Zoloft] 150 mg PO DAILY@0600 09/12/17 traZODone [Desyrel] 50 mg PO QHS 09/12/17 Iron Polysaccharide Complex 150 mg PO DAILYCM #30 cap 09/25/17 [Ferrex 150] Gabapentin [Neurontin] 600 mg PO TID 12/14/17 Loratadine [Claritin] 10 mg PO DAILY 12/14/17 oxycodone-acetaminophen 5 mg-325 1 tab PO TID PRN #20 tab 12/21/17 mg tablet Maternal Family History: Family History (Last Reviewed 10/18/17 @ 11:35 by Ani Lemus) Unknown No problems noted. Family History: Diabetes, Heart Disease Paternal Family History: Family History (Last Reviewed 10/18/17 @ 11:35 by Ani Lemus) Unknown No problems noted. 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
[2017-12-25 12:26] VITALS: BP 110/70; BP 115/81; PULSE 76; PULSE 84; RESP 16; TEMP 36.6; TEMP 36.8
--- NOTE | 2017-12-25 17:04 | PCM.HBO.PN ---
History of Present Illness Presenting Chief Complaint: Soft tissue radionecrosis right breast reconstruction. SHARON BARRAGAN is a 47 year old currently undergoing hyperbaric oxygen therapy for soft tissue radionecrosis - right breast reconstruction. Progress: Today's session represents the 32nd such session of hyperbaric oxygen therapy. The patient appears to be tolerating well. Tolerance of hyperbaric oxygen therapy: Hyperbaric oxygen therapy was administered as per the facility's protocol. Patient tolerated hyperbaric oxygen therapy well, without complaints or complications. Upon emergence from the hyperbaric chamber, the patient's vital signs remained stable. The patient was discharged in good condition. 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 Allergies/Adverse Reactions: Allergies FIBERGLASS Allergy (Severe, Uncoded 12/21/17 13:35) SEVERE ITCHING AND RASH POULTRY Allergy (Uncoded 12/21/17 13:35) Anaphylaxis Home Medications: Ambulatory Orders Medication Instructions Recorded Sertraline HCl [Zoloft] 150 mg PO DAILY@0600 09/12/17 traZODone [Desyrel] 50 mg PO QHS 09/12/17 Iron Polysaccharide Complex 150 mg PO DAILYCM #30 cap 09/25/17 [Ferrex 150] Gabapentin [Neurontin] 600 mg PO TID 12/14/17 Loratadine [Claritin] 10 mg PO DAILY 12/14/17 oxycodone-acetaminophen 5 mg-325 1 tab PO TID PRN #20 tab 12/21/17 mg tablet Maternal Family History: Family History (Last Reviewed 10/18/17 @ 11:35 by Ani Lemus) Unknown No problems noted. Family History: Diabetes, Heart Disease Paternal Family History: Family History (Last Reviewed 10/18/17 @ 11:35 by Ani Lemus) Unknown No problems noted. Family History: No pertinent history Smoking Status: Former smoker Tobacco Use: Non-smoker Physical Exam Vital Signs Temp Pulse Resp BP 98 F 84 16 110/70 12/25/17 12:26 12/25/17 12:26 12/25/17 12:26 12/25/17 12:26 General: Alert, Oriented x3, Cooperative, No apparent distress, Well developed, Well nourished HEENT: Atraumatic, PERRLA, EOMI, Normocephalic Lungs: Normal air movement Psych/Mental Status: Normal Affect, Appropriate, Alert and oriented to time, place, person, mood and affect Assessment/Plan Active Problems (Last Updated 12/22/17 @ 17:03 by Eveline Chen DO) 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 Deformity of reconstructed breast (Acute) 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
[2017-12-27 12:10] VITALS: BP 127/85; BP 132/76; PULSE 80; PULSE 86; RESP 16; TEMP 36.3; TEMP 36.6
--- NOTE | 2017-12-27 15:56 | HBO.PN.PCM_ITS ---
History of Present Illness Date of Service: 12/27/17 Presenting Chief Complaint: Soft tissue radionecrosis right breast re construction. SHARON BARRAGAN is a 47 year old currently undergoing hyperbaric oxygen therapy for soft tissue radionecrosis - right breast reconstruction. Progress: Today's session represents the 33rd such session of hyperbaric oxygen therapy. The patient appears to be tolerating well. Tolerance of hyperbaric oxygen therapy: Hyperbaric oxygen therapy was administered as per the facility's protocol. Patient tolerated hyperbaric oxygen therapy well, without complaints or complications. Upon emergence from the hyperbaric chamber, the patient's vital signs remained stable. The patient was discharged in good condition. 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 Allergies/Adverse Reactions: Allergies FIBERGLASS Allergy (Severe, Uncoded 12/21/17 13:35) SEVERE ITCHING AND RASH POULTRY Allergy (Uncoded 12/21/17 13:35) Anaphylaxis Home Medications: Ambulatory Orders Medication Instructions Recorded Sertraline HCl [Zoloft] 150 mg PO DAILY@0600 09/12/17 traZODone [Desyrel] 50 mg PO QHS 09/12/17 Iron Polysaccharide Complex 150 mg PO DAILYCM #30 cap 09/25/17 [Ferrex 150] Gabapentin [Neurontin] 600 mg PO TID 12/14/17 Loratadine [Claritin] 10 mg PO DAILY 12/14/17 oxycodone-acetaminophen 5 mg-325 1 tab PO TID PRN #20 tab 12/21/17 mg tablet Maternal Family History: Family History (Last Reviewed 10/18/17 @ 11:35 by Ani Lemus) Unknown No problems noted. Family History: Diabetes, Heart Disease Paternal Family History: Family History (Last Reviewed 10/18/17 @ 11:35 by Ani Lemus) Unknown No problems noted. Family History: No pertinent history Smoking Status: Former smoker Tobacco Use: Non-smoker Physical Exam Vital Signs Temp Pulse Resp BP 98 F 86 16 132/76 H 12/27/17 12:10 12/27/17 12:10 12/27/17 12:10 12/27/17 12:10 General: Alert, Oriented x3, Cooperative, No apparent distress HEENT: Atraumatic, - - right TM view obstructed by cerumen, left partially obstructed. 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
[2017-12-28 12:43] VITALS: BP 111/71; BP 122/75; PULSE 107; PULSE 88; RESP 18; TEMP 37.1; TEMP 37.4
--- NOTE | 2017-12-29 10:01 | HBO.PN.PCM_ITS ---
History of Present Illness Date of Service: 12/28/17 Presenting Chief Complaint: Soft tissue radionecrosis right breast re construction. SHARON BARRAGAN is a 47 year old currently undergoing hyperbaric oxygen therapy for soft tissue radionecrosis - right breast reconstruction. Progress: Today's session represents the 34th such session of hyperbaric oxygen therapy. The patient appears to be tolerating well. Tolerance of hyperbaric oxygen therapy: Hyperbaric oxygen therapy was administered as per the facility's protocol. Patient tolerated hyperbaric oxygen therapy well, without complaints or complications. Upon emergence from the hyperbaric chamber, the patient's vital signs remained stable. The patient was discharged in good condition. 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 Allergies/Adverse Reactions: Allergies FIBERGLASS Allergy (Severe, Uncoded 12/21/17 13:35) SEVERE ITCHING AND RASH POULTRY Allergy (Uncoded 12/21/17 13:35) Anaphylaxis Home Medications: Ambulatory Orders Medication Instructions Recorded Sertraline HCl [Zoloft] 150 mg PO DAILY@0600 09/12/17 traZODone [Desyrel] 50 mg PO QHS 09/12/17 Iron Polysaccharide Complex 150 mg PO DAILYCM #30 cap 09/25/17 [Ferrex 150] Gabapentin [Neurontin] 600 mg PO TID 12/14/17 Loratadine [Claritin] 10 mg PO DAILY 12/14/17 Maternal Family History: Family History (Last Reviewed 10/18/17 @ 11:35 by Ani Lemus) Unknown No problems noted. Family History: Diabetes, Heart Disease Paternal Family History: Family History (Last Reviewed 10/18/17 @ 11:35 by Ani Lemus) Unknown No problems noted. Family History: No pertinent history Smoking Status: Former smoker Tobacco Use: Non-smoker Physical Exam Vital Signs Temp Pulse Resp BP 98.7 F 107 H 18 111/71 12/28/17 12:43 12/28/17 12:43 12/28/17 12:43 12/28/17 12:43 General: Alert, Oriented x3, Cooperative, No apparent distress HEENT: Atraumatic, - - small amount of cerumen to bilateral TM, non-occlusive Lungs: Clear to auscultation, Normal air movement, No rhonchi, No wheeze, No rales Cardiovascular: Regular rate, Regular Rhythm, Normal S1, Normal S2, No murmurs Psych/Mental Status: Normal Affect, Appropriate, Alert and oriented to time, place, person, mood and affect Assessment/Plan Active Problems (Last Updated 12/22/17 @ 17:03 by Eveline Chen DO) 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 Deformity of reconstructed breast (Acute) 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
--- NOTE | 2018-01-03 13:29 | PCM.HBO.PN ---
History of Present Illness Presenting Chief Complaint: Soft tissue radionecrosis right breast reconstruction. SHARON BARRAGAN is a 47 year old currently undergoing hyperbaric oxygen therapy for soft tissue radionecrosis - right breast reconstruction. Progress: Today's session represents the 33th such session of hyperbaric oxygen therapy. The patient appears to be tolerating well. Tolerance of hyperbaric oxygen therapy: Hyperbaric oxygen therapy was administered as per the facility's protocol. Patient tolerated hyperbaric oxygen therapy well, without complaints or complications. Upon emergence from the hyperbaric chamber, the patient's vital signs remained stable. The patient was discharged in good condition. 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 Allergies/Adverse Reactions: Allergies FIBERGLASS Allergy (Severe, Uncoded 12/21/17 13:35) SEVERE ITCHING AND RASH POULTRY Allergy (Uncoded 12/21/17 13:35) Anaphylaxis Home Medications: Ambulatory Orders Medication Instructions Recorded Sertraline HCl [Zoloft] 150 mg PO DAILY@0600 09/12/17 traZODone [Desyrel] 50 mg PO QHS 09/12/17 Iron Polysaccharide Complex 150 mg PO DAILYCM #30 cap 09/25/17 [Ferrex 150] Gabapentin [Neurontin] 600 mg PO TID 12/14/17 Loratadine [Claritin] 10 mg PO DAILY 12/14/17 Maternal Family History: Family History (Last Reviewed 10/18/17 @ 11:35 by Ani Lemus) Unknown No problems noted. Family History: Diabetes, Heart Disease Paternal Family History: Family History (Last Reviewed 10/18/17 @ 11:35 by Ani Lemus) Unknown No problems noted. Family History: No pertinent history Smoking Status: Former smoker Tobacco Use: Non-smoker Physical Exam Vital Signs Temp Pulse Resp BP 98.7 F 107 H 18 111/71 12/28/17 12:43 12/28/17 12:43 12/28/17 12:43 12/28/17 12:43 General: Alert, Oriented x3, Cooperative, No apparent distress HEENT: Atraumatic, - - blue eustachian tubes seen bilaterally, no drainage Lungs: Clear to auscultation, Normal air movement, No rhonchi, No wheeze, No rales Cardiovascular: Regular rate, Regular Rhythm, Normal S1, Normal S2, No murmurs Psych/Mental Status: Normal Affect, Appropriate, Alert and oriented to time, place, person, mood and affect Assessment/Plan Active Problems (Last Updated 12/22/17 @ 17:03 by Eveline Chen DO) 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 Deformity of reconstructed breast (Acute) 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
[2018-01-03 15:34] VITALS: BP 117/72; BP 124/75; PULSE 85; PULSE 86; RESP 16; TEMP 36.8; TEMP 37.2
--- NOTE | 2018-01-04 12:43 | HBO.PN.PCM_ITS ---
History of Present Illness Date of Service: 01/04/18 Presenting Chief Complaint: Soft tissue radionecrosis right breast re construction. SHARON BARRAGAN is a 47 year old currently undergoing hyperbaric oxygen therapy for soft tissue radionecrosis - right breast reconstruction. Progress: Today's session represents the 34th such session of hyperbaric oxygen therapy. The patient appears to be tolerating well. Tolerance of hyperbaric oxygen therapy: Hyperbaric oxygen therapy was administered as per the facility's protocol. Patient tolerated hyperbaric oxygen therapy well, without complaints or complications. Upon emergence from the hyperbaric chamber, the patient's vital signs remained stable. The patient was discharged in good condition. 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 Allergies/Adverse Reactions: Allergies FIBERGLASS Allergy (Severe, Uncoded 12/21/17 13:35) SEVERE ITCHING AND RASH POULTRY Allergy (Uncoded 12/21/17 13:35) Anaphylaxis Home Medications: Ambulatory Orders Medication Instructions Recorded Sertraline HCl [Zoloft] 150 mg PO DAILY@0600 09/12/17 traZODone [Desyrel] 50 mg PO QHS 09/12/17 Iron Polysaccharide Complex 150 mg PO DAILYCM #30 cap 09/25/17 [Ferrex 150] Gabapentin [Neurontin] 600 mg PO TID 12/14/17 Loratadine [Claritin] 10 mg PO DAILY 12/14/17 Maternal Family History: Family History (Last Reviewed 10/18/17 @ 11:35 by Ani Lemus) Unknown No problems noted. Family History: Diabetes, Heart Disease Paternal Family History: Family History (Last Reviewed 10/18/17 @ 11:35 by Ani Lemus) Unknown No problems noted. Family History: No pertinent history Smoking Status: Former smoker Tobacco Use: Non-smoker Physical Exam Vital Signs Temp Pulse Resp BP 98.2 F 86 16 124/75 H 01/03/18 15:34 01/03/18 15:34 01/03/18 15:34 01/03/18 15:34 General: Alert, Oriented x3, Cooperative, No apparent distress HEENT: Atraumatic, TM's Clear - bilateral eustachian tubes intact Lungs: Clear to auscultation, Normal air movement, No rhonchi, No wheeze, No rales, Diminished Cardiovascular: Regular rate, Regular Rhythm, Normal S1, Normal S2, No murmurs Psych/Mental Status: Normal Affect, Appropriate, Alert and oriented to time, place, person, mood and affect Assessment/Plan Active Problems (Last Updated 12/22/17 @ 17:03 by Eveline Chen DO) 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 Deformity of reconstructed breast (Acute) 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
[2018-01-04 13:27] VITALS: BP 108/78; BP 124/74; PULSE 101; PULSE 76; RESP 16; RESP 18; TEMP 36.1; TEMP 36.3
[2018-01-05 12:10] VITALS: BP 122/76; BP 128/73; PULSE 83; PULSE 97; RESP 16; TEMP 36.4; TEMP 36.5
--- NOTE | 2018-01-05 18:42 | HBO.PN.PCM_ITS ---
History of Present Illness Date of Service: 01/05/18 Presenting Chief Complaint: Soft tissue radionecrosis right breast re construction, failed graft SHARON BARRAGAN is a 47 year old currently undergoing hyperbaric oxygen therapy for soft tissue radionecrosis - right breast reconstruction with failed graft. Progress: Today's session represents the 35th such session of hyperbaric oxygen therapy. The patient appears to be tolerating well. Tolerance of hyperbaric oxygen therapy: Hyperbaric oxygen therapy was adm inistered as per the facility's protocol. Patient tolerated hyperbaric oxygen therapy well, without complaints or complications. Upon emergence from the hyperbaric chamber, the patient's vital signs remained stable. The patient was discharged in good condition. 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 Allergies/Adverse Reactions: Allergies FIBERGLASS Allergy (Severe, Uncoded 12/21/17 13:35) SEVERE ITCHING AND RASH POULTRY Allergy (Uncoded 12/21/17 13:35) Anaphylaxis Home Medications: Ambulatory Orders Medication Instructions Recorded Sertraline HCl [Zoloft] 150 mg PO DAILY@0600 09/12/17 traZODone [Desyrel] 50 mg PO QHS 09/12/17 Iron Polysaccharide Complex 150 mg PO DAILYCM #30 cap 09/25/17 [Ferrex 150] Gabapentin [Neurontin] 600 mg PO TID 12/14/17 Loratadine [Claritin] 10 mg PO DAILY 12/14/17 Maternal Family History: Family History (Last Reviewed 10/18/17 @ 11:35 by Ani Lemus) Unknown No problems noted. Family History: Diabetes, Heart Disease Paternal Family History: Family History (Last Reviewed 10/18/17 @ 11:35 by Ani Lemus) Unknown No problems noted. 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 Deformity of reconstructed breast (Acute) 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
== END 2018-01-17 23:59 ==
LOC: WC 12:00
PROVIDERS: Family Provider Internal Medicine; PCP Internal Medicine; Visit Provider Surgery
DX: L59.8 Other specified disorders of the skin and subcutaneous tissue related to radiation (principal); Y84.2 Radiological procedure and radiotherapy as the cause of abnormal reaction of the patient, or of later complication, without mention of misadventure at the time of the procedure; Z87.891 Personal history of nicotine dependence; Z17.1 Estrogen receptor negative status [ER-]; Z85.3 Personal history of malignant neoplasm of breast; Z79.899 Other long term (current) drug therapy
CPT/HCPCS: 99183; G0277

== ENCOUNTER 2018-01-24 08:00 | Observation (INO) | payer MEDICAID, SELFPAY ==
--- NOTE | 2018-01-16 14:10 | EKG12_ITS ---
Test Reason : PRE-OP Blood Pressure : / mmHG Vent. Rate : 074 BPM Atrial Rate : 074 BPM P-R Int : 152 ms QRS Dur : 072 ms QT Int : 364 ms P-R-T Axes : 020 001 035 degrees QTc Int : 404 ms Normal sinus rhythm Normal ECG Confirmed by CHARLIE RAYO, BJ ([id number]), material expeditor DOMENICA BURNHAM ([id number]) on 01/18/2018 3:42:48 PM Referred By: Junior Ahn Confirmed By:BJ GUERRA MD
--- NOTE | 2018-01-22 17:36 | HP.PCM_ITS ---
History and Physical Date of Admission: 01/23/18 HISTORY OF PRESENT ILLNESS 47 year old woman presents for further evaluation for breast reconstruction. Her initial bilateral mastectomy was on 01/12/16. She underwent IV chemotherapy initially and this was followed by radiation therapy to the right breast. She finished the radiation therapy in 10/03. She underwent a TRAM flap in 05/07. She developed a hematoma in the TRAM flap followed by some TRAM flap compromise. About 20% of the flap was salvaged after drainage of a postop hematoma and after debridement of some compromise to the TRAM flap. She underwent wound care with the VAC and then with Silver dressing changes along with antibiotics and HBO therapy to try and salvage the right breast reconstruction and chest wall in preparation for further breast reconstruction. She presents today for further evaluation and treatment. 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 late effect radiation right breast reconstruction. 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 compromised TRAM flap right breast reconstruction with partial loss. hematoma right breast reconstruction and chest wall. PAST SURGICAL HISTORY Thyroidectomy, subtotal Tubal ligation Hysterectomy with bilateral salpingectomy and left oophorectomy - 10/02 prophylactic mastectomy left breast by Dr. Ahn - 01/12/16 mastectomy right breast and bilateral sentinel node biopsies by Dr. Juárez - 01/12/16 port placement - 02/02 Delayed right breast reconstruction with unipedicle contralateral TRAM flap and abdominal wall reconstruction with placement of Strattice acellular dermal matrix graft (100 cm2) and revision radiation scar contour deformity right breast with multiple W-plasties (40 cm2) - 05/02/17 Surgical preparation right breast TRAM flap reconstruction with incision and drainage and evacuation hematoma - 05/05/17 Surgical preparation right breast reconstruction with excisional debridement compromised TRAM flap (256 cm2) - 05/23/17 Revision right breast reconstruction with excision nonhealing radiation ulcer scar contour deformity and lateral rotation TRAM flap and delayed right breast reconstruction with placement of latissimus dorsi myocutaneous flap - 09/19/17 MEDICATIONS Zoloft. Valium. Mobic. Trazodone. Norvasc. Calcium Carbonate. ALLERGIES Poultry. FAMILY HISTORY negative for breast cancer. SOCIAL HISTORY Patient is a former smoker. Passive smoke exposure - no Alcohol Use - no Regular Exercise - yes Passive smoke exposure - yes REVIEW OF SYSTEMS General - Denies fever and fatigue. History of weight loss. Eyes - Denies eye pain. ENT - Denies nasal congestion and sore throat. CV - Denies chest pain or discomfort, fatigue, lightheadedness and shortness of breath with exertion. Resp - Denies cough and shortness of breath. Patient is a former smoker. GI - Denies nausea, vomiting, diarrhea and constipation. - Denies blood in urine and urinary frequency. MS - Complains of back pain. Denies joint pain, stiffness, muscle weakness and arthritis. Derm - Denies suspicious lesions and skin cancer. Has mastectomy scars and flap scars bilaterally in stages of breast reconstruction. Neuro - Denies poor balance and headaches. Psych - Complains of anxiety. Denies depression. Endo - Denies excessive urination and excessive thirst. Has thyroid disease. Has history of right breast cancer. Heme - Denies bleeding and abnormal bruising. PHYSICAL EXAMINATION General: well developed, well nourished, in no acute distress. Her bra size was 36 C prior to her breast cancer. Head: normocephalic and atraumatic. Eyes: PERRL. EOMI. Neck: no masses, thyromegaly, or abnormal cervical nodes. Breasts: Mastectomy vertical incision on the left breast is healed. There is an area of skin dimpling down to and adherent to the muscle. No breast masses palpated. There is some excess mastectomy skin scar contour deformity on the left breast mostly inferiorly and superiorly with some laterally. On the right breast there is a soft healed latissimus dorsi myocutaneous flap. There is surrounding radiation scarring at the skin edges with firmness from radiation effects. Some mild discoloration at the skin edges.. There is the remnant of her TRAM flap inferior and medially, about 20%. That flap is soft. No axillary adenopathy. Breast diameter is 12 cm bilaterally. The left breast IMF is elevated about 1.5 cm. On the right breast laterally is some radiation scarring. The IMF laterally on the right is more elevated than the medial aspect of the right breast where the remaining TRAM flap is located. The radiation scarring will act as a frame of reference for the IMF. Will need to elevate the TRAM flap in the future as a medial crease. So will lower the IMF on the left to match the radiation scarring on the right laterally. Lungs: clear bilaterally to auscultation. Heart: regular rate and rhythm. Abdomen: normal bowel sounds; no hepatosplenomegaly no ventral,umbilical hernias or masses noted. There is healed TRAM flap scar in lower anterior abdominal wall. Had some residual seroma postop that required an ultrasound guided drainage. Pulses: pulses normal in all 4 extremities. Extremities: no clubbing, cyanosis, edema, or deformity noted with normal full range of motion of all joints. Neurologic: cranial nerves II-XII grossly intact. Skin: no rashes. The back wound has healed. Cervical Nodes: no significant adenopathy. Axillary Nodes: no significant adenopathy. Inguinal Nodes: no significant adenopathy. Psych: alert and cooperative; normal mood and affect; normal attention span and concentration. ASSESSMENT 1. Right breast cancer. 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 4. Disproportion reconstructed breasts. 5. Late effect radiation right breast. 6. 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 7. Deformity reconstructed left breast with excess mastectomy skin scar contour deformity. 8. History of compromised TRAM flap right breast reconstruction with partial loss. 9. Estrogen receptor status negative. 10. Former smoker. PLAN She presents today for the next stage in her breast reconstruction process which is creation of the breast pockets bilaterally and if adequate pockets are noted, then proceed with placement of cohesive gel implants. I may need to revise the right breast reconstruction with excision painful radiation soft tissue necrosis scar contour deformity. I may need to revise the left breast reconstruction with excision excess mastectomy skin scar contour deformity. The left breast IMF is elevated about 1.5 cm. On the right breast laterally is some radiation scarring. The IMF laterally on the right is more elevated than the medial aspect of the right breast where the remaining TRAM flap is located. The radiation scarring will act as a frame of reference for the IMF. Will need to elevate the TRAM flap in the future as a medial crease. So will lower the IMF on the left to match the radiation scarring on the right laterally. The goal is implant placement bilaterally with the right breast needing a larger implant. If the breast pocket on the right is not that great with limitations secondary to her previous radiation therapy, I will place a saline tissue geriatric personal care aide to try and loosen the breast pocket a little before taking her back to surgery for the replacement cohesive gel implant. She is aware of that possibility and wishes to proceed. I should be able to revise the left breast and place an implant since no radiation was done. At the time of the removal of the geriatric personal care aide on the right, I may have to adjust the implant on the left either higher or lower depending on the final size of the implant on the right. When I'm developing the breast pocket on the left, if I feel it is a little tighter than I would like and I've already decided to place an geriatric personal care aide on the right, then I may also proceed with an geriatric personal care aide on the left as well. I anticipate a radiation scar contracture contour deformity that will necessitate multiple W-plasty reconstruction to maximize the contour of the right breast and minimize some of the radiation scar contracture forces. I will probably wait on this revision procedure after the implants have been placed and are healed. Surgery will be done under general anesthesia with a surgical observation overnight stay in the hospital. She will have drains in for several days and be maintained on antibiotics until the drains are removed. She will keep her head elevated during the initial postop period. She finished HBO therapy for her soft tissue radionecrosis preop. Also in the postop period, she may resume HBO treatments to maximize healing from the soft tissue radionecrosis from her radiation therapy. At the time of surgery, will treat perioperatively with Vancomycin and Levaquin. At surgery, would send tissue cultures as well as to send tissue to Pathology for analysis to rule out carcinoma. A positive culture may necessitate antibiotic modification. The patient was informed of the risks and complications of the procedure including alternatives to surgery. These were discussed with the patient personally. The patient voices understanding and wishes to proceed. Some of the risks and complications were included in a form from the [employer]. Encouraged the patient to stop smoking as it may have deleterious effects on wound healing. She states she has stopped smoking after her breast cancer diagnosis.
[2018-01-23] VITALS (10 sets, daily range): BP systolic 111–129; BP diastolic 72–90; PULSE 78–115; RESP 16–18; TEMP 35.8–37.3; O2SAT 94–98; BMI 35.2; BMI 35.4
[2018-01-23] MEDS: Vancomycin IV 1,000 MG/200 ML BAG 200 MG IV (08:53)
--- NOTE | 2018-01-23 09:25 | BREAST_PTH ---
PATIENT: SHARON BARRAGAN LOC: MS2 U#:[id number] AGE/SX: 47/F ROOM: [facility] RE01/24/[address]: Dr. Junior Ahn MD : 1970 BED: 1 DIS: 01/25/2018 SPEC #: [id number] RECD: 01/24/18 08:33 STATUS: CHIDI THANIA #: [id number] JOANNA: 01/23/18 09:[address]: Junior Ahn DEPT: SURGICAL PATHOLOGY RECD BY: Jo Oro ENTERED: 01/24/18 10:26 SP TYPE: BREAST OTHR DR: MD Dr. Josué Rodriguez MD Tissues: A - Left breast, NOS B - Right breast, NOS Procedures: Surgery Specimen Level IV HEADER OPERATION: Revision right breast reconstruction with excision radiation PRE-OP DIAGNOSIS: Right breast cancer; cancerphobia left breast; acquired absence bilateral breasts; disproportion reconstructed breasts; late effect radiation right breast; deformity reconstructed right breast with painful radiation scar contracture; history of compromised TRAM flap right breast reconstruction with partial loss; ER status negative; TISSUE SUBMITTED: A - Left breast tissue, B - Right breast tissue MICROSCOPIC DIAGNOSIS A. Left breast tissue, reconstruction: Pieces of skin with underlying adipose tissue and dense fibroconnective tissue. See comment. B. Right breast tissue, reconstruction: Pieces of dense fibroconnective tissue and fibroadipose tissue with chronic inflammation and foreign body giant cell reaction. See comment. SJ:sharon 01/25/18 COMMENT A & B. Breast tissue is not identified in the sections examined. MICROSCOPIC DESCRIPTION Slides are reviewed. GROSS DESCRIPTION A - Received in fixative is one container labeled with the patient's name and designated left breast tissue. The specimen consists of five variable sized pieces of yellow fibroadipose tissue with a few of the pieces showing a skin piece measuring in aggregate 10 x 9 x 4 cm. The skin surface is unremarkable. Sections do not reveal any mass lesion. Data Management Analyst sections are submitted in four cassettes. B - Received in fixative is one container labeled with the patient's name and designated right breast tissue. The specimen consists of five variable sized pieces of clark, indurated tissue measuring in aggregate 5 x 3.5 x 1 cm. All pieces are bisected. The entire specimen is submitted in six cassettes. / SJ:rg 01/24/18 TC:5 CPT: 02552 x2
[2018-01-23 10:25] LABS: Cholesterol 241 mg/dL (200); High Density Lipoprotein 46 mg/dL; Triglycerides 127 mg/dL; Very Low Density Lipoprotein 25 mg/dL (5-40)
[2018-01-23] MEDS: Methylene Blue 1% 100 MG/10 ML VIAL (11:08)
--- NOTE | 2018-01-23 14:55 | PCM.IMDPSTOP ---
Immediate Post-Op Note Date of Procedure: 01/23/18 Primary Surgeon/Physician: Junior Ahn child care attendant: Leigh Ann Brush. Pre-Operative Diagnosis: 1. Right breast cancer. 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 4. Disproportion reconstructed breasts. 5. Late effect radiation right breast. 6. 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 7. Deformity reconstructed left breast with excess mastectomy skin scar contour deformity. 8. History of compromised TRAM flap right breast reconstruction with partial loss. 9. Estrogen receptor status negative. 10. Former smoker. Post-Operative Diagnosis: Same. Surgery/Procedure Performed:: 1. Revision right breast reconstruction with excision radiation scar contour deformity. 2. Revision left breast reconstruction with excision excess mastectomy skin scar contour deformity. 3. Delayed bilateral breast reconstruction with placement submuscular saline tissue expanders and placement FlexHD acellular dermal matrix graft (13 x 22 cm used for both breasts). Description of Surgical Findings:: 47 year old woman presents for further evaluation for breast reconstruction. Her initial bilateral mastectomy was on 01/12/16. She underwent IV chemotherapy initially and this was followed by radiation therapy to the right breast. She finished the radiation therapy in 10/03. She underwent a TRAM flap in 05/07. She developed a hematoma in the TRAM flap followed by some TRAM flap compromise. About 20% of the flap was salvaged after drainage of a postop hematoma and after debridement of some compromise to the TRAM flap. She underwent wound care with the VAC and then with Silver dressing changes along with antibiotics and HBO therapy to try and salvage the right breast reconstruction and chest wall in preparation for further breast reconstruction. After healing occurred, she presents today for further breast reconstruction. Today the patient underwent revision right breast reconstruction with excision radiation scar contour deformity and revision left breast reconstruction with excision excess mastectomy skin scar contour deformity and delayed bilateral breast reconstruction with placement submuscular saline tissue expanders and placement FlexHD acellular dermal matrix graft (13 x 22 cm used for both breasts). IV Fluids - 2000 ml. Urine Output - 600 ml. I used [place] CPX-4 with Suture Tabs, Tall Height, Breast Tissue Cloth Cutting Machine Operator, Textured Integral Dome, (550 ml on the right). Reference Number - [id number]. Lot Number - [id number]. Serial Number - [id number]. I used [place] CPX-4 with Suture Tabs, Tall Height, Breast Tissue Cloth Cutting Machine Operator, Textured Integral Dome, (550 ml on the left). Reference Number - [id number]. Lot Number - [id number]. Serial Number - [id number]. I used FlexHD acellular dermal matrix graft, Pliable Shaped, Perforated, Large, (13 x 22 cm used on both breasts). Item Number - [id number]. Serial Number - [id number]. Expiration - January 06, 2020. I used Geri absorbable hemostat, (I used 3 vials, one in the left breast and 2 in the right breast). Reference Number - [id number]. Lot Number - [id number]. Expiration - September 14, 2022. Estimated Blood Loss: 150 ml. Specimen's removed: 1. Right breast tissue to Pathology and Microbiology. 2. Left breast tissue to Pathology. Drains: [place] x4 (2 in each breast). Type of Anesthesia:: General - Admit VTE Documentation VTE Present on Admission: No VTE Mechan Device Prophylaxis: SCD's VTE Pharm Prophylaxis ordered?: Yes
--- NOTE | 2018-01-23 15:04 | OP.PN_ITS ---
Immediate Post-Op Note Date of Procedure: 01/23/18 Primary Surgeon/Physician: Junior Ahn horser up: Leigh Ann Brush. Pre-Operative Diagnosis: 1. Right breast cancer. 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 4. Disproportion reconstructed breasts. 5. Late effect radiation right breast. 6. 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 7. Deformity reconstructed left breast with excess mastectomy skin scar contour deformity. 8. History of compromised TRAM flap right breast reconstruction with partial loss. 9. Estrogen receptor status negative. 10. Former smoker. Post-Operative Diagnosis: Same. Surgery/Procedure Performed:: 1. Revision right breast reconstruction with excision radiation scar contour deformity. 2. Revision left breast reconstruction with excision excess mastectomy skin scar contour deformity. 3. Delayed bilateral breast reconstruction with placement submuscular saline tissue expanders and placement FlexHD acellular dermal matrix graft (13 x 22 cm used for both breasts). Description of Surgical Findings:: 47 year old woman presents for further evaluation for breast reconstruction. Her initial bilateral mastectomy was on 01/12/16. She underwent IV chemotherapy initially and this was followed by radiation therapy to the right breast. She finished the radiation therapy in 10/03. She underwent a TRAM flap in 05/07. She developed a hematoma in the TRAM flap followed by some TRAM flap compromise. About 20% of the flap was salvaged after drainage of a postop hematoma and after debridement of some compromise to the TRAM flap. She underwent wound care with the VAC and then with Silver dressing changes along with antibiotics and HBO therapy to try and salvage the right breast reconstruction and chest wall in preparation for further breast reconstruction. After healing occurred, she presents today for further breast reconstruction. Today the patient underwent revision right breast reconstruction with excision radiation scar contour deformity and revision left breast reconstruction with excision excess mastectomy skin scar contour deformity and delayed bilateral breast reconstruction with placement submuscular saline tissue expanders and placement FlexHD acellular dermal matrix graft (13 x 22 cm used for both breasts). IV Fluids - 2000 ml. Urine Output - 600 ml. I used [place] CPX-4 with Suture Tabs, Tall Height, Breast Tissue Senior Counsel, Textured Integral Dome, (550 ml on the right). Reference Number - [id number]. Lot Number - [id number]. Serial Number - [id number]. I used [place] CPX-4 with Suture Tabs, Tall Height, Breast Tissue Senior Counsel, Textured Integral Dome, (550 ml on the left). Reference Number - [id number]. Lot Number - [id number]. Serial Number - [id number]. I used FlexHD acellular dermal matrix graft, Pliable Shaped, Perforated, Large, (13 x 22 cm used on both breasts). Item Number - [id number]. Serial Number - [id number]. Expiration - January 06, 2020. I used Geri absorbable hemostat, (I used 3 vials, one in the left breast and 2 in the right breast). Reference Number - [id number]. Lot Number - [id number]. Expiration - September 14, 2022. Estimated Blood Loss: 150 ml. Specimen's removed: 1. Right breast tissue to Pathology and Microbiology. 2. Left breast tissue to Pathology. Drains: Kolton x4 (2 in each breast). Type of Anesthesia:: General - Admit VTE Documentation VTE Present on Admission: No VTE Mechan Device Prophylaxis: SCD's VTE Pharm Prophylaxis ordered?: Yes
[2018-01-23 17:35] LABS: Anion Gap 7 (5-15); BUN 15 mg/dL (7-18); BUN/Creat Ratio 15.4 RATIO (10-20); Calcium,Total 8.7 mg/dL (8.5-10.1); Chloride 110 mmol/L (98-107); Creatinine, Serum 0.97 mg/dL (0.55-1.02); EST Glomerular Filtration Rate 65 mL/min (>60); Est Glom Filt Rate - Afr Amer 78 mL/min (>60); Glucose 130 mg/dL (74-106); Potassium 4.4 mmol/L (3.5-5.1); Sodium Level 140 mmol/L (136-145)
[2018-01-23] MEDS: 0.9% NaCl Peripheral Flush Adult/Peds IV (17:39)
[2018-01-23] MEDS: HYDROmorphone 1 MG/ML Syringe IV ×2 (17:39→20:42)
--- NOTE | 2018-01-23 18:08 | PCM.OPRPT ---
Report of Operation Date of Procedure: 01/23/18 Pre-Operative Diagnosis: 1. Right breast cancer. 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 4. Disproportion reconstructed breasts. 5. Late effect radiation right breast. 6. 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 7. Deformity reconstructed left breast with excess mastectomy skin scar contour deformity. 8. History of compromised TRAM flap right breast reconstruction with partial loss. 9. Estrogen receptor status negative. 10. Former smoker. Post-Operative Diagnosis: Same. Surgery/Procedure Performed:: 1. Revision right breast reconstruction with excision radiation scar contour deformity. 2. Revision left breast reconstruction with excision excess mastectomy skin scar contour deformity. 3. Delayed bilateral breast reconstruction with placement submuscular saline tissue expanders and placement FlexHD acellular dermal matrix graft (13 x 22 cm used for both breasts). Description of Surgical Findings:: 47 year old woman presents for further evaluation for breast reconstruction. Her initial bilateral mastectomy was on 01/12/16. She underwent IV chemotherapy initially and this was followed by radiation therapy to the right breast. She finished the radiation therapy in 10/03. She underwent a TRAM flap in 05/07. She developed a hematoma in the TRAM flap followed by some TRAM flap compromise. About 20% of the flap was salvaged after drainage of a postop hematoma and after debridement of some compromise to the TRAM flap. She underwent wound care with the VAC and then with Silver dressing changes along with antibiotics and HBO therapy to try and salvage the right breast reconstruction and chest wall in preparation for further breast reconstruction. After healing occurred, she presents today for further breast reconstruction. Patient was informed of the risks and complications of the procedure including alternatives to surgery. These were discussed with the patient personally. Patient voices understanding and wishes to proceed. Some of the risks and complications were included in a form from the [employer]. IV Fluids - 2000 ml. Urine Output - 600 ml. I used [place] CPX-4 with Suture Tabs, Tall Height, Breast Tissue Cylinder Press Operator Apprentice, Textured Integral Dome, (550 ml on the right). Reference Number - [id number]. Lot Number - [id number]. Serial Number - [id number]. I used [place] CPX-4 with Suture Tabs, Tall Height, Breast Tissue Cylinder Press Operator Apprentice, Textured Integral Dome, (550 ml on the left). Reference Number - [id number]. Lot Number - [id number]. Serial Number - [id number]. I used FlexHD acellular dermal matrix graft, Pliable Shaped, Perforated, Large, (13 x 22 cm used on both breasts). Item Number - [id number]. Serial Number - [id number]. Expiration - January 06, 2020. I used Geri absorbable hemostat, (I used 3 vials, one in the left breast and 2 in the right breast). Reference Number - [id number]. Lot Number - [id number]. Expiration - September 14, 2022. snow plow tractor operator: Leigh Ann Brush. Type of Anesthesia:: General Specimen's removed: 1. Right breast tissue to Pathology and Microbiology. 2. Left breast tissue to Pathology. Drains: Kol[place] x4 (2 in each breast). Estimated Blood Loss (mL): 150 ml. Fluids Replaced: 2600 ml (2000 ml IV Fluids, and 600 ml Urine Output). Description of Procedure: Patient was seen in the preop area and was placed in the sitting position. Preop markings were made. I marked the sternal midline down towards the umbilicus. The midclavicular line was marked to the nipple and then from the nipple to the inframammary fold. The inframammary folds were marked bilaterally. She was taken to the OR, placed in supine position and placed under general anesthesia. Her breasts were prepped and draped in the usual fashion. SCD's were placed for DVT prophylaxis. Perioperative antibiotics were given intravenously. A Terrell catheter was placed. On the right breast, the reconstruction incision laterally was infiltrated with Xylocaine and epinephrine. On the left breast, I kourtney a horizontal ellipse inferiorly to encompass the excess mastectomy skin scar contour deformity and infiltrated the area with xylocaine and epinephrine. After waiting 5 minutes for the anesthetic to take effect, incision was made on the right down through the subcutaneous tissue until the chest wall was seen. There was a lot of dense firm radiation scar contracture deformity that was excised. There was some dense thickening on the undersurface of the latissimus flap that was excised. I freed up a breast pocket at the level of the chest wall superiorly to the clavicle and medially to the sternum and inferiorly to the inframammary fold and laterally to the anterior axillary line. I felt the radiation effects would only allow a small implant at this time. I think if there is some tissue expansion, the pocket would be better for placement of an implant that would give us the best aesthetic result. The breast pocket was irrigated with saline. Hemostasis was obtained with electrocautery. I placed two size 15 Kolton drains through separate stab incisions laterally and secured to the skin with 3-0 Nylon suture. The breast pocket was sprayed with Geri absorbable hemostat to minimize seroma formation. I used two vials of Geri. Tissue was that excised was sent to Pathology for analysis to rule out carcinoma and to Microbiology for culture. I placed a [place] CPX-4 tissue it software developer into the breast pocket. I used a 550 ml it software developer. I first removed the air from the it software developer. I injected 30 ml of saline. I squeezed the it software developer to look for any defects with the it software developer and found none. Most of the saline was then removed from the it software developer. After placing the it software developer into the pocket, I secured the suture tabs to the chest wall with 3-0 Vicryl suture. I secured two of the suture tabs. I then placed a piece of FlexHD acellular dermal matrix graft laterally to keep the it software developer from lateral migration. I secured the graft to the edge of the latissimus muscle with 3-0 Vicryl figure of eight interrupted sutures. I secured the graft to the chest wall with 3-0 Vicryl figure of eight interrupted sutures. I used a malleable over the it software developer to protect the it software developer during the suture closure. I then closed the incision in a layered fashion with 3-0 Monocryl interrupted sutures for the deep dermis and subcutaneous tissue. The skin was approximated with 4-0 V lock unidirectional barbed running subcuticular suture. This was followed by Histoacryl skin tissue adhesive. I then went to the left breast and excised the horizontal ellipse of excess mastectomy skin scar contour deformity down into the subcutaneous tissue down to the chest wall. I then created a submuscular pocket underneath the pectoralis major muscle. I dissected superiorly to the clavicle and medially to the sternum and laterally to the anterior axillary line. There was some dense scarring in the vicinity of the previous vertical scar that prevented ease in reshaping of the skin envelope. Therefore I made an incision through the vertical scar down to the muscle. There was dense scarring over the muscle indicative of radiation effects. There was probably some residual scatter of radiation damage from the right breast over to the left side. This could explain the densely adherence of the skin down to the muscle. After freeing up the skin off the muscle, it allowed better draping and contouring of the breast skin. This completed the Tzone mastopexy incision which will minimize the need to do the mastopexy at the time of implant placement. This excess mastectomy skin scar contour deformity was sent to Pathology for analysis to rule out carcinoma. I irrigated the wound with saline. Hemostasis was obtained with electrocautery. I placed two size 15 Kolton drains through separate stab incisions laterally and secured to the skin with 3-0 Nylon suture. The breast pocket was sprayed with Geri absorbable hemostat to minimize seroma formation. I then placed the same [place] CPX-4 tissue it software developer into the breast pocket. I used a 550 ml it software developer. I first removed the air from the it software developer. I injected 30 ml of saline. I squeezed the it software developer to look for any defects with the it software developer and found none. Most of the saline was then removed from the it software developer. After placing the it software developer into the pocket, I secured the suture tabs to the chest wall with 3-0 Vicryl suture. I secured two of the suture tabs. I then placed a piece of FlexHD acellular dermal matrix graft laterally to keep the it software developer from lateral migration. I secured the graft to the edge of the pectoralis muscle with 3-0 Vicryl figure of eight interrupted sutures. I secured the graft to the chest wall with 3-0 Vicryl figure of eight interrupted sutures. I used a malleable over the it software developer to protect the it software developer during the suture closure. I then closed the vertical and horizontal incision by first approximating the leading edge of the medial and lateral breast flaps to the midline of the horizontal incision with 2-0 Vicryl suture. I then closed these incisions in a layered fashion with 3-0 Monocryl interrupted sutures for the deep dermis and subcutaneous tissue. The horizontal incision was then closed with 3-0 V lock unidirectional barbed running subcuticular suture. The vertical incision was approximated with 4-0 Prolene simple interrupted sutures. This was then followed by Histoacryl skin tissue adhesive. Lisslix gauze was applied over the breast incisions followed by compression bruce wraps. Patient tolerated the procedure well and was sent to PACU in satisfactory condition. Patient will be sent upstairs for continued postop care. Will continue the Vancomycin perioperatively. Will also add Levaquin. She will go home on antibiotics until the drains are removed. She will keep her head elevated during the initial postop period and be on a lifting restriction. After saline expansion has been completed, will continue the breast reconstruction process with removal of the expanders with replacement cohesive gel implants. Grafts/Implants Used: [place] CPX-4 tissue expanders x2 and FlexHD acellular dermal matrix graft. - Complications None. - Admit VTE Documentation VTE Present on Admission: No VTE Mechan Device Prophylaxis: SCD's VTE Pharm Prophylaxis ordered?: Yes Code Visit Surgery Charges CPT - 16055 ICD-10 - C50.911, F40.298, Z90.13, N65.1, T66.xxxS, N65.0, Z17.1, Z87.891 [id number] C50.911, F40.298, Z90.13, N65.1, T66.xxxS, N65.0, Z17.1, Z87.891 [id number] C50.911, F40.298, Z90.13, N65.0, T66.xxxS, N65.1, Z17.1, Z87.891 [id number] C50.911, F40.298, Z90.13, N65.0, T66.xxxS, N65.1, Z17.1, Z87.891 [id number] C50.911, F40.298, Z90.13, N65.1, T66.xxxS, N65.0, Z17.1, Z87.891
[2018-01-23] MEDS: oxyCODONE 5 MG Tablet 10 MG PO ×2 (19:02→23:01)
--- NOTE | 2018-01-23 19:17 | PCM.RX.CS ---
Consult Pharmacy has been consulted to manage selected antiobiotic: Vancomycin Type of Consult: New start Suspected Infection: Skin/Soft tissue Prior Doses of Antibiotics Received/Current Regimen: Received preop dose (1000mg) this morning at 08:53 Labs: Sodium 140 mmol/L (136-145) 01/23/18 16:52 Potassium 4.4 mmol/L (3.5-5.1) 01/23/18 16:52 Chloride 110 mmol/L (98-107) H 01/23/18 16:52 Carbon Dioxide 23.0 mmol/L (21.0-32.0) 01/23/18 16:52 Anion Gap 7 (5-15) 01/23/18 16:52 BUN 15 mg/dL (7-18) 01/23/18 16:52 Creatinine 0.97 mg/dL (0.55-1.02) 01/23/18 16:52 Est GFR (MDRD) Af Amer 78 mL/min (>60) 01/23/18 16:52 Est GFR (MDRD) Non-Af 65 mL/min (>60) 01/23/18 16:52 BUN/Creatinine Ratio 15.4 RATIO (10-20) 01/23/18 16:52 Glucose 130 mg/dL (74-106) H 01/23/18 16:52 Weight used for dosin.9 kg Estimated Creatinine Clearance: 91.7 ml/mi Goal Trough: 10-15 mcg/mL Pharmacy Plan for Drug Dosing: Continue dosing at 1250mg IV q12h, starting at 19:00 tonight. The preop dose that the patient received this morning was not quite at 15 mg/kg so the first 1250mg dose was entered to start 10 hours after that preop dose, and then will be continued q12h from there. A trough will be obtained before the 4th total dose. Pharmacy Service will continue to monitor and adjust dosing as required. Follow-Up Labs: Trough Vancomycin Labs to be done on [date and time ordered]: 01/24/18 at 18:30 before the 19:00 dose
[2018-01-23] MEDS: Docusate Sodium 100 MG Capsule PO (22:23)
[2018-01-23] MEDS: traZODone 50 MG Tablet PO (22:23)
[2018-01-23] MEDS: Pregabalin 75 MG Capsule 150 MG PO (22:24)
[2018-01-24] MEDS: HYDROmorphone 1 MG/ML Syringe IV ×8 (00:37→23:06)
[2018-01-24 04:00] VITALS: BP 118/77; PULSE 94; RESP 16; TEMP 36.5; O2SAT 97
[2018-01-24] MEDS: Sertraline 100 MG Tablet 150 MG PO (06:07)
[2018-01-24] MEDS: oxyCODONE 5 MG Tablet 10 MG PO ×4 (06:08→20:47)
[2018-01-24] MEDS: Enoxaparin 40 MG/0.4 ML Syringe SC (06:08)
[2018-01-24 06:17] LABS: Hematocrit 34.6 % (37-47); Hemoglobin 11.5 g/dl (12.0-15.0); Mean Corp Hgb Conc 33.2 g/gl (32-36); Mean Corpuscular Hgb 27.2 pg (27.0-32.0); Mean Corpuscular Volume 81.8 fL (81-99); RBC Distribution Width CV 16.4 % (11.6-14.6); Red Blood Count 4.23 M/mm3 (4.2-5.4)
[2018-01-24 06:18] LABS: Mean Platelet Vol. 9.8 fl (6.2-12.0); Platelet Count 207 K/mm3 (150-450); RBC Distribution Width SD 48.4 fl (35.1-43.9); Scan Indicated on CBC? Y/N NO
[2018-01-24 06:22] LABS: Anion Gap 10 (5-15); BUN 19 mg/dL (7-18); BUN/Creat Ratio 19.4 RATIO (10-20); Calcium,Total 8.3 mg/dL (8.5-10.1); Chloride 104 mmol/L (98-107); Creatinine, Serum 0.98 mg/dL (0.55-1.02); EST Glomerular Filtration Rate 64 mL/min (>60); Est Glom Filt Rate - Afr Amer 78 mL/min (>60); Estimated Creatinine Clearance 90.77 ml/min; Glucose 112 mg/dL (74-106); Potassium 4.3 mmol/L (3.5-5.1); Sodium Level 136 mmol/L (136-145)
[2018-01-24 08:13] VITALS: BP 102/69; PULSE 96; RESP 18; TEMP 36.8; O2SAT 97
[2018-01-24] MEDS: Pregabalin 75 MG Capsule 150 MG PO ×2 (08:20→20:51)
[2018-01-24] MEDS: Docusate Sodium 100 MG Capsule PO ×2 (08:20→20:47)
[2018-01-24] MEDS: diazePAM 5 MG Tablet PO ×2 (08:21→15:23)
[2018-01-24] MEDS: Fluticasone 0.05% 1 SPRAY NASAL.SRY NASAL (08:24)
[2018-01-24] MEDS: Lactated Ringers 1,000 ML 60 ML IV (08:25)
[2018-01-24] MEDS: BENZOCAINE/MENTHOL 1 LOZENGE MUCOUS MEM ×2 (10:10→15:23)
[2018-01-24 15:25] VITALS: BP 119/78; PULSE 116; RESP 18; TEMP 36.8; O2SAT 95
[2018-01-24] MEDS: Ondansetron 4 MG/2 ML Vial IV (16:35)
--- NOTE | 2018-01-24 18:08 | OP.PCM_ITS ---
Report of Operation Date of Procedure: 01/23/18 Pre-Operative Diagnosis: 1. Right breast cancer. 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 4. Disproportion reconstructed breasts. 5. Late effect radiation right breast. 6. 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 7. Deformity reconstructed left breast with excess mastectomy skin scar contour deformity. 8. History of compromised TRAM flap right breast reconstruction with partial loss. 9. Estrogen receptor status negative. 10. Former smoker. Post-Operative Diagnosis: Same. Surgery/Procedure Performed:: 1. Revision right breast reconstruction with excision radiation scar contour deformity. 2. Revision left breast reconstruction with excision excess mastectomy skin scar contour deformity. 3. Delayed bilateral breast reconstruction with placement submuscular saline tissue expanders and placement FlexHD acellular dermal matrix graft (13 x 22 cm used for both breasts). Description of Surgical Findings:: 47 year old woman presents for further evaluation for breast reconstruction. Her initial bilateral mastectomy was on 01/12/16. She underwent IV chemotherapy initially and this was followed by radiation therapy to the right breast. She finished the radiation therapy in 10/03. She underwent a TRAM flap in 05/07. She developed a hematoma in the TRAM flap followed by some TRAM flap compromise. About 20% of the flap was salvaged after drainage of a postop hematoma and after debridement of some compromise to the TRAM flap. She underwent wound care with the VAC and then with Silver dressing changes along with antibiotics and HBO therapy to try and salvage the right breast reconstruction and chest wall in preparation for further breast reconstruction. After healing occurred, she presents today for further breast reconstruction. Patient was informed of the risks and complications of the procedure including alternatives to surgery. These were discussed with the patient personally. Patient voices understanding and wishes to proceed. Some of the risks and complications were included in a form from the [employer]. IV Fluids - 2000 ml. Urine Output - 600 ml. I used [place] CPX-4 with Suture Tabs, Tall Height, Breast Tissue Volleyball Assembler, Textured Integral Dome, (550 ml on the right). Reference Number - [id number]. Lot Number - [id number]. Serial Number - [id number]. I used [place] CPX-4 with Suture Tabs, Tall Height, Breast Tissue Volleyball Assembler, Textured Integral Dome, (550 ml on the left). Reference Number - [id number]. Lot Number - [id number]. Serial Number - [id number]. I used FlexHD acellular dermal matrix graft, Pliable Shaped, Perforated, Large, (13 x 22 cm used on both breasts). Item Number - [id number]. Serial Number - [id number]. Expiration - January 06, 2020. I used Geri absorbable hemostat, (I used 3 vials, one in the left breast and 2 in the right breast). Reference Number - [id number]. Lot Number - [id number]. Expiration - September 14, 2022. chemical engineering teacher: Leigh Ann Brush. Type of Anesthesia:: General Specimen's removed: 1. Right breast tissue to Pathology and Microbiology. 2. Left breast tissue to Pathology. Drains: Kolton x4 (2 in each breast). Estimated Blood Loss (mL): 150 ml. Fluids Replaced: 2600 ml (2000 ml IV Fluids, and 600 ml Urine Output). Description of Procedure: Patient was seen in the preop area and was placed in the sitting position. Preop markings were made. I marked the sternal midline down towards the umbilicus. The midclavicular line was marked to the nipple and then from the nipple to the inframammary fold. The inframammary folds were marked bilaterally. She was taken to the OR, placed in supine position and placed under general anesthesia. Her breasts were prepped and draped in the usual fashion. SCD's were placed for DVT prophylaxis. Perioperative antibiotics were given intravenously. A Terrell catheter was placed. On the right breast, the reconstruction incision laterally was infiltrated with Xylocaine and epinephrine. On the left breast, I kourtney a horizontal ellipse inferiorly to encompass the excess mastectomy skin scar contour deformity and infiltrated the area with xylocaine and epinephrine. After waiting 5 minutes for the anesthetic to take effect, incision was made on the right down through the subcutaneous tissue until the chest wall was seen. There was a lot of dense firm radiation scar contracture deformity that was excised. There was some dense thickening on the undersurface of the latissimus flap that was excised. I freed up a breast pocket at the level of the chest wall superiorly to the clavicle and medially to the sternum and inferiorly to the inframammary fold and laterally to the anterior axillary line. I felt the radiation effects would only allow a small implant at this time. I think if there is some tissue expansion, the pocket would be better for placement of an implant that would give us the best aesthetic result. The breast pocket was irrigated with saline. Hemostasis was obtained with electrocautery. I placed two size 15 Kolton drains through separate stab incisions laterally and secured to the skin with 3-0 Nylon suture. The breast pocket was sprayed with Geri absorbable hemostat to minimize seroma formation. I used two vials of Geri. Tissue was that excised was sent to Pathology for analysis to rule out carcinoma and to Microbiology for culture. I placed a [place] CPX-4 tissue reimbursement representative into the breast pocket. I used a 550 ml reimbursement representative. I first removed the air from the reimbursement representative. I injected 30 ml of saline. I squeezed the reimbursement representative to look for any defects with the reimbursement representative and found none. Most of the saline was then removed from the reimbursement representative. After placing the reimbursement representative into the pocket, I secured the suture tabs to the chest wall with 3-0 Vicryl suture. I secured two of the suture tabs. I then placed a piece of FlexHD acellular dermal matrix graft laterally to keep the reimbursement representative from lateral migration. I secured the graft to the edge of the latissimus muscle with 3-0 Vicryl figure of eight interrupted sutures. I secured the graft to the chest wall with 3-0 Vicryl figure of eight interrupted sutures. I used a malleable over the reimbursement representative to protect the reimbursement representative during the suture closure. I then closed the incision in a layered fashion with 3-0 Monocryl interrupted sutures for the deep dermis and subcutaneous tissue. The skin was approximated with 4-0 V lock unidirectional barbed running subcuticular suture. This was followed by Histoacryl skin tissue adhesive. I then went to the left breast and excised the horizontal ellipse of excess mastectomy skin scar contour deformity down into the subcutaneous tissue down to the chest wall. I then created a submuscular pocket underneath the pectoralis major muscle. I dissected superiorly to the clavicle and medially to the sternum and laterally to the anterior axillary line. There was some dense scarring in the vicinity of the previous vertical scar that prevented ease in reshaping of the skin envelope. Therefore I made an incision through the vertic al scar down to the muscle. There was dense scarring over the muscle indicative of radiation effects. There was probably some residual scatter of radiation damage from the right breast over to the left side. This could explain the densely adherence of the skin down to the muscle. After freeing up the skin off the muscle, it allowed better draping and contouring of the breast skin. This completed the Tzone mastopexy incision which will minimize the need to do the mastopexy at the time of implant placement. This excess mastectomy skin scar contour deformity was sent to Pathology for analysis to rule out carcinoma. I irrigated the wound with saline. Hemostasis was obtained with electrocautery. I placed two size 15 Kolton drains through separate stab incisions laterally and secured to the skin with 3-0 Nylon suture. The breast pocket was sprayed with Geri absorbable hemostat to minimize seroma formation. I then placed the same [place] CPX-4 tissue reimbursement representative into the breast pocket. I used a 550 ml reimbursement representative. I first removed the air from the reimbursement representative. I injected 30 ml of saline. I squeezed the reimbursement representative to look for any defects with the reimbursement representative and found none. Most of the saline was then removed from the reimbursement representative. After placing the reimbursement representative into the pocket, I secured the suture tabs to the chest wall with 3-0 Vicryl suture. I secured two of the suture tabs. I then placed a piece of FlexHD acellular dermal matrix graft laterally to keep the reimbursement representative from lateral migration. I secured the graft to the edge of the pectoralis muscle with 3-0 Vicryl figure of eight interrupted sutures. I secured the graft to the chest wall with 3-0 Vicryl figure of eight interrupted sutures. I used a malleable over the reimbursement representative to protect the reimbursement representative during the suture closure. I then closed the vertical and horizontal incision by first approximating the leading edge of the medial and lateral breast flaps to the midline of the horizontal incision with 2-0 Vicryl suture. I then closed these incisions in a layered fashion with 3-0 Monocryl interrupted sutures for the deep dermis and subcutaneous tissue. The horizontal incision was then closed with 3-0 V lock unidirectional barbed running subcuticular suture. The vertical incision was approximated with 4-0 Prolene simple interrupted sutures. This was then followed by Histoacryl skin tissue adhesive. Kerlix gauze was applied over the breast incisions followed by compression bruce wraps. Patient tolerated the procedure well and was sent to PACU in satisfactory condition. Patient will be sent upstairs for continued postop care. Will continue the Vancomycin perioperatively. Will also add Levaquin. She will go home on antibiotics until the drains are removed. She will keep her head elevated during the initial postop period and be on a lifting restriction. After saline expansion has been completed, will continue the breast reconstruction process with removal of the expanders with replacement cohesive gel implants. Grafts/Implants Used: [place] CPX-4 tissue expanders x2 and FlexHD acellular dermal matrix graft. - Complications None. - Admit VTE Documentation VTE Present on Admission: No VTE Mechan Device Prophylaxis: SCD's VTE Pharm Prophylaxis ordered?: Yes Code Visit Surgery Charges CPT - 44824 ICD-10 - C50.911, F40.298, Z90.13, N65.1, T66.xxxS, N65.0, Z17.1, Z87.891 [id number] C50.911, F40.298, Z90.13, N65.1, T66.xxxS, N65.0, Z17.1, Z87.891 [id number] C50.911, F40.298, Z90.13, N65.0, T66.xxxS, N65.1, Z17.1, Z87.891 [id number] C50.911, F40.298, Z90.13, N65.0, T66.xxxS, N65.1, Z17.1, Z87.891 [id number] C50.911, F40.298, Z90.13, N65.1, T66.xxxS, N65.0, Z17.1, Z87.891
--- NOTE | 2018-01-24 18:58 | PCM.PN.SRG ---
Subjective: Postop #1 Patient complains of incisional pain. - Physical Exam General: Alert, Oriented x3 HEENT: PERRLA, EOMI Oral: Moist Mucosa Neck: Supple Abdomen: Soft, Non-Distended Skin: Incision - Bilateral breast incisions are dry and intact. No clinical evidence of hematoma. Mild swelling is noted. Neurological: Cranial nerves II-XII grossly intact Psych/Mental Status: Normal Affect, Appropriate Vital Signs Temp Pulse Resp BP Pulse Ox 98.2 F 116 H 18 119/78 95 01/24/18 15:25 01/24/18 15:25 01/24/18 15:25 01/24/18 15:25 01/24/18 15:25 Oxygen Delivery Method Room Air Weight: 180 lb 8.937 oz Body Mass Index (BMI) 35.4 Intake and Output for Last 24 Hours 01/22/18 01/23/18 01/24/18 23:59 23:59 23:59 Intake Total 3468 / 3468 2647 / 2647 Output Total 1625 / 1625 1594 / 1594 Balance 1843 / 1843 1053 / 1053 Drainage 375 ml yesterday. Microbiology Past 72 Hours 01/23/18 14:00 Gram Stain - Final Tissue - Breast Wound Culture - Preliminary No growth-Final to follow Laboratory Tests Past 24 Hrs 01/24/18 01/24/18 01/24/18 05:30 05:30 18:42 WBC 7.0 RBC 4.23 Hgb 11.5 L Hct 34.6 L MCV 81.8 MCH 27.2 MCHC 33.2 RDW 16.4 H RDW Differential 48.4 H Plt Count 207 MPV 9.8 Sodium 136 Potassium 4.3 Chloride 104 Carbon Dioxide 22.0 Anion Gap 10 BUN 19 H Creatinine 0.98 Estim Creat Clear Calc 90.77 Est GFR (MDRD) Af Amer 78 Est GFR (MDRD) Non-Af 64 BUN/Creatinine Ratio 19.4 Glucose 112 H Calcium 8.3 L Prealbumin 22.0 Vancomycin Trough Pending Medical Necessity - Tobacco Use Smoking Status: Former smoker Assessment/Plan All Active Problems (Last Updated 01/18/18 @ 17:24 by Eden Velazquez) Seasonal allergies (Acute) Back pain (Acute) BONE FRACTURES - BROKEN RIGHT ARM (Acute) Breast lump in female (Acute) Breast cancer in female (Acute) History of emotional problems (Acute) Thyroid disease (Acute) Fibroids (Acute) Cancer phobia (Acute) 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) Disproportion of reconstructed breast (Acute) Deformity of reconstructed breast (Acute) Postoperative hematoma of subcutaneous tissue following non-dermatologic procedure (Acute) Hematoma of breast (Acute) Partial loss of skin graft (Acute) Medical management (Acute) Disproportion of reconstructed breast (Acute) 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 Right breast cancer. 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 4. Disproportion reconstructed breasts. 5. Late effect radiation right breast. 6. 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 7. Deformity reconstructed left breast with excess mastectomy skin scar contour deformity. 8. History of compromised TRAM flap right breast reconstruction with partial loss. 9. Estrogen receptor status negative. 10. Former smoker. 11. s/p revision right breast reconstruction with excision radiation scar contour deformity and revision left breast reconstruction with excision excess mastectomy skin scar contour deformity and delayed bilateral breast reconstruction with placement submuscular saline tissue expanders and placement FlexHD acellular dermal matrix graft (13 x 22 cm used for both breasts). Patient complains of incisional pain. Will wean to po analgesia for discharge. She also has noted generalized swelling in her arms and legs. Will give her a dose of Lasix for diuresis. She received 2 liters of fluid during the surgery. Will remove the encinas in the morning. Her incisions are dry and intact. Keep head elevated. Will remove the drains in the office. Will send home on po antibiotics until the drains are removed. 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 Operative culture thus far is negative. Prealbumin was 22.0. Encourage nutritional supplementation with protein to help the healing process.
[2018-01-24 19:39] LABS: Vancomycin, Trough Level 16.2 ug/mL (5.0-15.0)
[2018-01-24] MEDS: 0.9% NaCl Peripheral Flush Adult/Peds IV (19:49)
[2018-01-24] MEDS: Furosemide 20 MG/2 ML VIAL 10 MG IV (19:49)
[2018-01-24 20:00] VITALS: BP 111/61; PULSE 114; RESP 18; TEMP 36.8; O2SAT 98
[2018-01-24 20:09] VITALS: PULSE 114; RESP 18; O2SAT 98
--- NOTE | 2018-01-24 20:20 | PCM.RX.CS ---
Consult Pharmacy has been consulted to manage selected antiobiotic: Vancomycin Type of Consult: Follow-up Suspected Infection: Skin/Soft tissue Labs: Sodium 136 mmol/L (136-145) 01/24/18 05:30 Potassium 4.3 mmol/L (3.5-5.1) 01/24/18 05:30 Chloride 104 mmol/L (98-107) 01/24/18 05:30 Carbon Dioxide 22.0 mmol/L (21.0-32.0) 01/24/18 05:30 Anion Gap 10 (5-15) 01/24/18 05:30 BUN 19 mg/dL (7-18) H 01/24/18 05:30 Creatinine 0.98 mg/dL (0.55-1.02) 01/24/18 05:30 Est GFR (MDRD) Af Amer 78 mL/min (>60) 01/24/18 05:30 Est GFR (MDRD) Non-Af 64 mL/min (>60) 01/24/18 05:30 BUN/Creatinine Ratio 19.4 RATIO (10-20) 01/24/18 05:30 Glucose 112 mg/dL (74-106) H 01/24/18 05:30 Vancomycin Trough 16.2 ug/mL (5.0-15.0) H 01/24/18 18:42 Microbiology: Microbiology 01/23/18 14:00 Tissue - Breast Gram Stain - Final 01/23/18 14:00 Tissue - Breast Wound Culture - Preliminary No growth-Final to follow Weight used for dosin kg Estimated Creatinine Clearance: 91 mL/min Goal Trough: 10-15 mcg/mL Pharmacy Plan for Drug Dosing: Trough slightly above goal. Recommend vancomycin 1000mg IV q12h, recheck in 4 doses per nomogram. Pharmacy Service will continue to monitor and adjust dosing as required. Follow-Up Labs: Trough Vancomycin - 01/26 @ 1930
[2018-01-24] MEDS: traZODone 50 MG Tablet PO (20:48)
--- NOTE | 2018-01-24 22:59 | NURSING ---
Pt refused encinas she has been getting up to use the bathroom.
[2018-01-24] MEDS: levoFLOXacin IV 500 MG/100 ML BAG 100 MG IV (23:06)
[2018-01-25] MEDS: oxyCODONE 5 MG Tablet 10 MG PO ×4 (00:51→14:20)
[2018-01-25] MEDS: Ondansetron 4 MG/2 ML Vial IV (00:56)
[2018-01-25 02:00] VITALS: BP 130/77; PULSE 104; RESP 18; TEMP 36.6; O2SAT 96
[2018-01-25 02:30] VITALS: PULSE 104
[2018-01-25] MEDS: HYDROmorphone 1 MG/ML Syringe IV ×2 (02:43→07:51)
[2018-01-25 05:33] LABS: Anion Gap 8 (5-15); BUN 11 mg/dL (7-18); BUN/Creat Ratio 14.5 RATIO (10-20); Calcium,Total 8.1 mg/dL (8.5-10.1); Chloride 101 mmol/L (98-107); Creatinine, Serum 0.76 mg/dL (0.55-1.02); EST Glomerular Filtration Rate 86 mL/min (>60); Est Glom Filt Rate - Afr Amer 104 mL/min (>60); Estimated Creatinine Clearance 117.04 ml/min; Glucose 115 mg/dL (74-106); Potassium 3.7 mmol/L (3.5-5.1); Sodium Level 135 mmol/L (136-145)
[2018-01-25] MEDS: Enoxaparin 40 MG/0.4 ML Syringe SC (06:05)
[2018-01-25] MEDS: Sertraline 100 MG Tablet 150 MG PO (06:05)
[2018-01-25 07:50] VITALS: BP 109/70; PULSE 102; RESP 18; TEMP 36.9; O2SAT 96
[2018-01-25] MEDS: Pregabalin 75 MG Capsule 150 MG PO (07:52)
[2018-01-25] MEDS: Fluticasone 0.05% 1 SPRAY NASAL.SRY NASAL (07:52)
[2018-01-25] MEDS: Vancomycin IV 1,000 MG/200 ML BAG 200 MG IV (07:53)
[2018-01-25] MEDS: Docusate Sodium 100 MG Capsule PO (07:53)
[2018-01-25] MEDS: Acetaminophen 325 MG Tablet 650 MG PO (10:18)
--- NOTE | 2018-01-25 11:47 | PN.SURG_ITS ---
Subjective: Postop #2 Patient has incisional pain. - Physical Exam General: Alert, Oriented x3 HEENT: PERRLA, EOMI Oral: Moist Mucosa Neck: Supple Skin: Incision - bilateral breast incisions are dry and intact. No clinical evidence of hematoma. Neurological: Cranial nerves II-XII grossly intact Psych/Mental Status: Normal Affect, Appropriate Vital Signs Temp Pulse Resp BP Pulse Ox 98.5 F 102 H 18 109/70 96 01/25/18 07:50 01/25/18 07:50 01/25/18 07:50 01/25/18 07:50 01/25/18 07:50 Oxygen Delivery Method Room Air Weight: 180 lb 8.937 oz Body Mass Index (BMI) 35.4 Intake and Output for Last 24 Hours 01/23/18 01/24/18 01/25/18 23:59 23:59 23:59 Intake Total 3468 / 3468 2647 / 2647 3073 / 3073 Output Total 1625 / 1625 1594 / 1594 1245 / 1245 Balance 1843 / 1843 1053 / 1053 1828 / 1828 Drainage 444 ml yesterday, 345 ml today. Microbiology Past 72 Hours 01/23/18 14:00 Gram Stain - Final Tissue - Breast Wound Culture - Preliminary No growth-Final to follow Anaerobic Culture - Preliminary No growth in 48 hours. Laboratory Tests Past 24 Hrs 01/24/18 01/25/18 18:42 05:00 Sodium 135 L Potassium 3.7 Chloride 101 Carbon Dioxide 26.0 Anion Gap 8 BUN 11 Creatinine 0.76 Estim Creat Clear Calc 117.04 Est GFR (MDRD) Af Amer 104 Est GFR (MDRD) Non-Af 86 BUN/Creatinine Ratio 14.5 Glucose 115 H Calcium 8.1 L Vancomycin Trough 16.2 H Medical Necessity - Tobacco Use Smoking Status: Former smoker Assessment/Plan All Active Problems (Last Updated 01/18/18 @ 17:24 by Eden Velazquez) Seasonal allergies (Acute) Back pain (Acute) BONE FRACTURES - BROKEN RIGHT ARM (Acute) Breast lump in female (Acute) Breast cancer in female (Acute) History of emotional problems (Acute) Thyroid disease (Acute) Fibroids (Acute) Cancer phobia (Acute) 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) Disproportion of reconstructed breast (Acute) Deformity of reconstructed breast (Acute) Postoperative hematoma of subcutaneous tissue following non-dermatologic procedure (Acute) Hematoma of breast (Acute) Partial loss of skin graft (Acute) Medical management (Acute) Disproportion of reconstructed breast (Acute) 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 Right breast cancer. 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 4. Disproportion reconstructed breasts. 5. Late effect radiation right breast. 6. Deformity reconstructed right breast with painful radiation scar co ntracture. 7. Deformity reconstructed left breast with excess mastectomy skin scar contour deformity. 8. History of compromised TRAM flap right breast reconstruction with partial loss. 9. Estrogen receptor status negative. 10. Former smoker. 11. s/p revision right breast reconstruction with excision radiation scar contour deformity and revision left breast reconstruction with excision excess mastectomy skin scar contour deformity and delayed bilateral breast reconstruction with placement submuscular saline tissue expanders and placement FlexHD acellular dermal matrix graft (13 x 22 cm used for both breasts). Patient complains of incisional pain. She is tolerating po analgesia. She also has noted generalized swelling in her arms and legs. Will discharge her on Lasix for 14 days. Will check a K level as an outpatient. Her incisions are dry and intact. Keep head elevated. Maintain compression LOLI wrap. Will remove the drains in the office. Prealbumin was 22.0. Encourage nutritional supplementation with protein to help the healing process. Discharge home today. Wrote script for Levaquin. She will take antibiotics until the drains are removed. Her operative culture is negative thus far. Wrote scripts for Percocet for pain (50 tabs) and for Valium for spasm (30 tabs) and Duragesic Patch, 25mcg, for pain (5 patches). Wrote script for Phenergan for nausea (30 tabs) and a refill. Wrote script for Lasix for 14 days. Followup office one week.
--- NOTE | 2018-01-25 12:10 | PCM.DC ---
You will use the following diet at home:: No restrictions Discharge Activity: May not drive while taking narcotic pain medications., May Not Shower - until the drains are removed., - - keep head elevated. no heavy lifting. May shower in (days): 14 - may shower after the drains are removed. May resume sexual activity in: 10-14 days Weight Bearing Status: Weight bearing as tolerated Lifting Restrictions: 20 lbs. Keep extremity elevated above heart level: - - elevate head. Call your doctor if your incision/area has: Continuous Slow Oozing, Sudden Increased Bleeding, Increased Pain/ Swelling, Increased Redness, Foul Smelling Discharge, Swelling at the incision site Call your doctor if you observe: Fever of 101 or Higher, Coldness, Increased Pain, Shortness of breath, Chest pain, Calf discomfort, Uncontrolled pain Suture Line Care: - - dry dressings daily. Cleanse incision/area with: - - may get incisions wet in the shower after the drains are removed. Drain: Suction - amrit drain x4 to bulb suction. empty and record output daily. Allergies/Adverse Reactions: Allergies cat dander Allergy (Severe, Verified 01/18/18 17:10) Lips & throat swell FIBERGLASS Allergy (Severe, Uncoded 01/16/18 08:59) SEVERE ITCHING AND RASH POULTRY Allergy (Uncoded 01/16/18 08:59) Anaphylaxis Medications to take at Discharge Sertraline HCl [Zoloft] 150 mg PO DAILY@0600 09/12/17 traZODone [Desyrel] 50 mg PO QHS 09/12/17 Fluticasone 0.05% [Flonase Nasal Mel[place]] 1 spray NASAL DAILY 01/16/18 Pregabalin [Lyrica] 150 mg PO BID 01/16/18 Acetaminophen [Tylenol Tablet] 650 mg PO Q6H PRN PRN tablet 01/25/18 Diazepam [Valium] 5 mg PO 4X/DAY PRN PRN #30 tab 01/25/18 Docusate Sodium [Colace] 100 mg PO BID capsule 01/25/18 Furosemide [Lasix] 20 mg PO DAILY #14 tab 01/25/18 Oxycodone HCl/Acetaminophen [Percocet 5-325] 1 - 2 tab PO 4X/DAY PRN PRN 7 Days #50 tab 01/25/18 fentaNYL patch [Duragesic patch] 25 mcg TRANSDERM. Q72H 15 Days #5 patch 01/25/18 levoFLOXacin tablet [Levaquin tablet] 500 mg PO DAILY #14 tab 01/25/18 proMETHazine tablet [Phenergan tablet] 25 mg PO 4X/DAY PRN PRN #30 tab 01/25/18 The following prescriptions were given: Diazepam [Valium] 5 mg PO 4X/DAY PRN PRN #30 tab PRN Reason: spasms fentaNYL patch [Duragesic patch] 25 mcg TRANSDERM. Q72H 15 Days #5 patch Furosemide [Lasix] 20 mg PO DAILY #14 tab levoFLOXacin tablet [Levaquin tablet] 500 mg PO DAILY #14 tab Oxycodone HCl/Acetaminophen [Percocet 5-325] 1 - 2 tab PO 4X/DAY PRN PRN 7 Days #50 tab PRN Reason: Pain proMETHazine tablet [Phenergan tablet] 25 mg PO 4X/DAY PRN PRN #30 tab PRN Reason: NAUSEA/VOMITING Orders to be completed after discharge: Basic Metabolic Profile (BMP) Time Frame: 1 Week, Facility: [facility], Location: Laboratory, [place] Primary Care Physician: Cici Martinez MD [STAFF PHYSICIAN] - Test Results: Test results from this visit will be discussed in further detail at your follow-up appointment, if applicable. Please Follow Up With: Junior Ahn MD When: one week. call [phone] for appt. Proposed Discharge Date: 01/25/18
--- NOTE | 2018-01-25 12:14 | DCINST_ITS ---
You will use the following diet at home:: No restrictions Discharge Activity: May not drive while taking narcotic pain medications., May Not Shower - until the drains are removed., - - keep head elevated. no heavy lifting. May shower in (days): 14 - may shower after the drains are removed. May resume sexual activity in: 10-14 days Weight Bearing Status: Weight bearing as tolerated Lifting Restrictions: 20 lbs. Keep extremity elevated above heart level: - - elevate head. Call your doctor if your incision/area has: Continuous Slow Oozing, Sudden Increased Bleeding, Increased Pain/ Swelling, Increased Redness, Foul Smelling Discharge, Swelling at the incision site Call your doctor if you observe: Fever of 101 or Higher, Coldness, Increased Pain, Shortness of breath, Chest pain, Calf discomfort, Uncontrolled pain Suture Line Care: - - dry dressings daily. Cleanse incision/area with: - - may get incisions wet in the shower after the drains are removed. Drain: Suction - amrit drain x4 to bulb suction. empty and record output daily. Allergies/Adverse Reactions: Allergies cat dander Allergy (Severe, Verified 01/18/18 17:10) Lips & throat swell FIBERGLASS Allergy (Severe, Uncoded 01/16/18 08:59) SEVERE ITCHING AND RASH POULTRY Allergy (Uncoded 01/16/18 08:59) Anaphylaxis Medications to take at Discharge Sertraline HCl [Zoloft] 150 mg PO DAILY@0600 09/12/17 traZODone [Desyrel] 50 mg PO QHS 09/12/17 Fluticasone 0.05% [Flonase Nasal [place]] 1 spray NASAL DAILY 01/16/18 Pregabalin [Lyrica] 150 mg PO BID 01/16/18 Acetaminophen [Tylenol Tablet] 650 mg PO Q6H PRN PRN tablet 01/25/18 Diazepam [Valium] 5 mg PO 4X/DAY PRN PRN #30 tab 01/25/18 Docusate Sodium [Colace] 100 mg PO BID capsule 01/25/18 Furosemide [Lasix] 20 mg PO DAILY #14 tab 01/25/18 Oxycodone HCl/Acetaminophen [Percocet 5-325] 1 - 2 tab PO 4X/DAY PRN PRN 7 Days #50 tab 01/25/18 fentaNYL patch [Duragesic patch] 25 mcg TRANSDERM. Q72H 15 Days #5 patch 01/25/18 levoFLOXacin tablet [Levaquin tablet] 500 mg PO DAILY #14 tab 01/25/18 proMETHazine tablet [Phenergan tablet] 25 mg PO 4X/DAY PRN PRN #30 tab 01/25/18 The following prescriptions were given: Diazepam [Valium] 5 mg PO 4X/DAY PRN PRN #30 tab PRN Reason: spasms fentaNYL patch [Duragesic patch] 25 mcg TRANSDERM. Q72H 15 Days #5 patch Furosemide [Lasix] 20 mg PO DAILY #14 tab levoFLOXacin tablet [Levaquin tablet] 500 mg PO DAILY #14 tab Oxycodone HCl/Acetaminophen [Percocet 5-325] 1 - 2 tab PO 4X/DAY PRN PRN 7 Days #50 tab PRN Reason: Pain proMETHazine tablet [Phenergan tablet] 25 mg PO 4X/DAY PRN PRN #30 tab PRN Reason: NAUSEA/VOMITING Orders to be completed after discharge: Basic Metabolic Profile (BMP) Time Frame: 1 Week, Facility: [facility], Location: Laboratory, [place] Primary Care Physician: Cici Martinez MD [STAFF PHYSICIAN] - Test Results: Test results from this visit will be discussed in further detail at your follow- up appointment, if applicable. Please Follow Up With: Junior Ahn MD When: one week. call [phone] for appt. Proposed Discharge Date: 01/25/18
[2018-01-25 13:06] VITALS: BP 121/61; PULSE 105; RESP 18; TEMP 36.7; O2SAT 95
[2018-01-25] MEDS: Furosemide 20 MG Tablet PO (13:11)
--- NOTE | 2018-01-25 15:08 | CASEMGMT ---
RN WALESKA Note: Fentanyl patch was declined per pharmacy, needs prior authorization. Call to Raulrika @ . Clinical information given and approval was given. KEN#[id number]. Pt can fill at her local pharmacy. -Call to pt. Intro role of CM and let her know prescription can be filled. Tray QUARLESN RN ACM
== END 2018-01-25 15:00 | disposition home or self-care (01) ==
LOC: SDC 14:43
PROVIDERS: Admitting Provider Surgery; Family Provider Internal Medicine; PCP Internal Medicine; Referring Provider Surgery; Visit Provider Surgery
PROC: (CPT 19357; principal; 2018-01-23 09:10)
DX: C50.911 Malignant neoplasm of unspecified site of right female breast (principal); F45.29 Other hypochondriacal disorders; N65.1 Disproportion of reconstructed breast; N65.0 Deformity of reconstructed breast; Z79.899 Other long term (current) drug therapy; Z87.891 Personal history of nicotine dependence; T66.XXXS Radiation sickness, unspecified, sequela; Y84.2 Radiological procedure and radiotherapy as the cause of abnormal reaction of the patient, or of later complication, without mention of misadventure at the time of the procedure; Z17.0 Estrogen receptor positive status [ER+]; F41.9 Anxiety disorder, unspecified; F32.9 Major depressive disorder, single episode, unspecified; E07.9 Disorder of thyroid, unspecified
CPT/HCPCS: 15777; 19357; 19380; 36415; 80048; 80061; 80202; 84134; 85027; 87070; 87075; 87102; 87205; 87206; 88305; 88307; 93005; 96365; 96366; 96367; 96372; 96375; 96376; 99218; J7050; J7120; A4216; G0378; G0379; J1940; J2405

== ENCOUNTER → 2018-01-31 12:04 | Outpatient (CLI) | payer MEDICAID, SELFPAY ==
[2018-01-31 12:03] VITALS: BMI 33.4
[2018-01-31 14:13] LABS: Anion Gap 13 (5-15); BUN 10 mg/dL (7-18); BUN/Creat Ratio 12.3 RATIO (10-20); Calcium,Total 8.8 mg/dL (8.5-10.1); Chloride 103 mmol/L (98-107); Creatinine, Serum 0.81 mg/dL (0.55-1.02); EST Glomerular Filtration Rate 79 mL/min (>60); Est Glom Filt Rate - Afr Amer 96 mL/min (>60); Glucose 101 mg/dL (74-106); Potassium 4.1 mmol/L (3.5-5.1); Sodium Level 137 mmol/L (136-145)
== END ==
PROVIDERS: Family Provider Internal Medicine; PCP Internal Medicine; Referring Provider Surgery; Visit Provider Surgery
DX: Z79.899 Other long term (current) drug therapy (principal)
CPT/HCPCS: 36415; 80048

== ENCOUNTER 2018-03-10 11:00 | Emergency (ER) | payer MEDICAID, SELFPAY ==
[2018-03-01 13:39] VITALS: BMI 33.4
[2018-03-10 11:02] VITALS: BP 106/75; PULSE 81; RESP 16; TEMP 36.8; O2SAT 99; BMI 36.3
--- NOTE | 2018-03-10 11:39 | VDLE_ITS ---
Reason For Study: SWELLING RIGHT GSV is normal. CFV is compressible, spontaneous, phasic, competent and demonstrates normal augmentation. FV is compressible, spontaneous, phasic, competent and demonstrates normal augmentation. POP V is compressible, spontaneous, phasic, competent and demonstrates normal augmentation. T/P Trunk is compressible. PTV is compressible. RT PerV is compressible. There is a nonvascularized hypoechoic structure measuring 2.4 x 1.66 cm located in the Rt Popliteal space. Procedure Exam performed portable in ED. A preliminary report was called and/or faxed to ED. Interpretation Summary Deep veins of the right lower extremity are patent and compressible segmentally. There is no evidence of right lower extremity deep vein thrombosis. Valvular competence appears intact within the proximal deep venous system on the right . The right greater saphenous vein appears patent and compressible segmentally. A non-vascular, hypoechoic structure is noted in the right popliteal space, measuring 2.4 cm x 1.7 cm. This probably represents a popliteal cyst. Clinical correlation is advised. Ordering Physician: Tony Ramirez Referring Physician: ALESSANDRO UMAÑA Performed By: Vicki Ferguson, ROXANNA, RVT
--- NOTE | 2018-03-10 11:45 | RAD_ITS ---
STUDY: X-RAY - RIGHT KNEE REASON FOR EXAM: Female, 48 years old. Pain, no known injury TECHNIQUE: 3 view(s) of the knee. COMPARISON: None. FINDINGS: Normal visualized distal femur. Normal visualized proximal tibia and fibula. Normal proximal tibiofibular articulation. Normal medial femorotibial compartment. Normal lateral femorotibial compartment. Normal patellofemoral articulation. Irregularity of the quadriceps tendon suggests partial disruption. RAD/Knee 3 Views IMPRESSION: No acute osseous findings. Possible injury of the quadriceps tendon. Electronically Signed: Hamlet Wolfe DO at 12:01 EST Tel , Service support ,
--- NOTE | 2018-03-10 14:01 | ED.DCSUM_ITS ---
- ER Visit Summary Date of Service: 03/10/18 Chief Complaint: [Right knee pain] History of Present Illness: The patient is a 48 F [presents the emergency department complaint of right knee pain that she has had for possibly 2 weeks. Patient denies any trauma. She denies any chest pain or shortness of breath. Patient is concerned about a blood clot in her leg. Patient did have surgery last January as she had a trans-flap to her breasts after mastectomy. Patient has pain with flexion of the knee. Denies any fevers.] Physical Examination: [HEENT-PERRLA, EOMI. Cranial nerves II through XII grossly intact. TMs clear. Mucous membranes moist. No adenopathy. Cardiovascular-regular rate and rhythm without murmur or ectopy Lungs-clear to auscultation, chest wall stable without crepitus or subcu emphysema Abdomen-normoactive bowel sounds, soft, nontender, no rebound or rigidity, no peritoneal signs. Extremities-intact ?4, normal range of motion, normal pulses, atraumatic. Right knee-no effusion. No erythema or warmth noted. Patient has limited flexion secondary to pain. No ropes or cords are palpated. Patient does have some tenderness over the right calf and a positive Homans sign. Patient has normal popliteal, dorsal pedal, and posterior tibial pulses.] Test Results: [X-ray of the right knee obtained showed questionable quadricep tendon injury. Venous duplex of the right lower extremity showed no evidence for DVT however she had did have a fluid-filled cyst behind her knee.] Emergency Department Course and Treatment: [Patient will be given an [facility] wrap] Treatment Plan: [Patient will be referred to orthopedics for follow-up.] Disposition: [Discharged home in stable condition. Patient has Percocet at home for pain.] Impression: [Right knee pain-etiology uncertain Law's cyst] This note was generated with [employer] dictation software. It may contain incorrect words, spelling, and punctuation that were not noted in review of the chart prior to signing ED Disposition - Plan for ED Patient: Chief Complaint: Lower Extremity Injury Referrals: Cici Martinez MD [Primary Care Provider] -
--- NOTE | 2018-03-10 14:01 | ED.DEP ---
ED Disposition - Plan for ED Patient: Chief Complaint: Lower Extremity Injury Instructions: ED Knee Pain [facility] Referrals: Cici Martinez MD [Primary Care Provider] - Johnny Molina MD [STAFF PHYSICIAN] - 3-5 Days
[2018-03-10 14:35] VITALS: BP 114/87; PULSE 89; RESP 16; O2SAT 97
== END 2018-03-10 14:37 | disposition home or self-care (01) ==
PROVIDERS: Emergency Provider Emergency Medicine; Family Provider Internal Medicine; PCP Internal Medicine
DX: M25.561 Pain in right knee (principal); M71.21 Synovial cyst of popliteal space [Baker], right knee; G62.9 Polyneuropathy, unspecified; Z79.899 Other long term (current) drug therapy; Z85.3 Personal history of malignant neoplasm of breast; Z90.13 Acquired absence of bilateral breasts and nipples
CPT/HCPCS: 73562; 93971; 99282

== ENCOUNTER → 2018-04-02 08:50 | Outpatient (CLI) | payer MEDICAID, SELFPAY ==
[2018-03-29 15:06] VITALS: BMI 36.3
[2018-04-02 10:29] LABS: T4 Free Direct 0.81 ng/dL (0.76-1.46); Thyroid Stim Hormone (TSH) 1.28 uIU/mL (0.358-3.74)
== END ==
PROVIDERS: Family Provider Internal Medicine; PCP Internal Medicine; Referring Provider Internal Medicine; Visit Provider Internal Medicine
DX: E07.9 Disorder of thyroid, unspecified (principal)
CPT/HCPCS: 36415; 84439; 84443

== ENCOUNTER 2018-04-09 18:56 | Emergency (ER) | payer MEDICAID, SELFPAY ==
[2018-04-06 15:06] VITALS: BMI 36.3
[2018-04-09 18:58] VITALS: BP 110/70; PULSE 88; RESP 18; TEMP 35.8; O2SAT 98; BMI 34.9
--- NOTE | 2018-04-09 19:11 | RAD_ITS ---
STUDY: X-RAY - LEFT HUMERUS REASON FOR EXAM: Female, 48 years old. Fall with pain TECHNIQUE: 2 view(s) of the humerus. COMPARISON: None. FINDINGS: There is subtle cortical irregularity of the radial head suggesting small fracture. No evidence of humerus fracture. Recommend dedicated elbow plain films to further evaluate RAD/Humerus min 2 Views IMPRESSION: As above Electronically Signed: Hamlet Wolfe DO at 19:57 EST Tel , Service support ,
--- NOTE | 2018-04-09 19:20 | RAD_ITS ---
STUDY: X-RAY - LEFT RADIUS AND ULNA REASON FOR EXAM: Female, 48 years old. Fall with pain TECHNIQUE: 2 view(s) of the forearm. COMPARISON: None. FINDINGS: There is no demonstrated soft tissue swelling. Normal visualized radius. Normal visualized ulna. RAD/Forearm 2 Views IMPRESSION: Normal x-ray examination of the radius and ulna. Electronically Signed: Hamlet Wolfe DO at 19:56 EST Tel , Service support ,
--- NOTE | 2018-04-09 19:22 | ED.DCSUM_ITS ---
- ER Visit Summary Date of Service: 04/09/18 Chief Complaint: Left arm injury History of Present Illness: The patient is a 48 F who fell on ice and snow yesterday landing on her left arm. She presents with continued pain throughout her left arm. She denies paresthesias. She is left-hand dominant. She is not on blood thinners. She denies any other injury from fall. Physical Examination: Vital signs unremarkable. Patient sitting upright in bed no acute distress. Head neck examination was no external sign of trauma. No C-spine tenderness. Heart is regular rate and rhythm. Lungs sounds are clear. Left upper extremity examination reveals mild muscular tenderness throughout the upper arm and forearm. She has good range of motion with normal cap refill. Normal sensation is noted throughout. No abrasions or ecchymosis noted. Test Results: Left forearm x-rays are obtained and read as normal. Left humerus x-rays are read with evidence of subtle cortical irregularity of the radial head suggesting small fracture. No humerus fracture. Focal x-rays of the elbow are suggested. Left elbow imaging is obtained and is read by radiology as no evidence of fracture. Emergency Department Course and Treatment: Patient initially declined anything for pain, but did have increased pain after moving her arm for x-ray. She was given a dose of oxycodone as she does take Percocet at home. Test results were discussed with her. I did advise her that sometimes radial head fractures are difficult to see right after injury but are more evident after a couple of days. She will be placed in a sling and will follow with her primary care physician later this week for repeat imaging. I did speak with her primary care physician to help facilitate this as well. Treatment Plan: [] Disposition: Discharge Impression: Mechanical fall with left arm contusion This note was generated with [employer] dictation software. It may contain incorrect words, spelling, and punctuation that were not noted in review of the chart prior to signing ED Disposition - Plan for ED Patient: Chief Complaint: Upper Extremity Injury Referrals: Cici Martinez MD [Primary Care Provider] -
--- NOTE | 2018-04-09 20:20 | RAD_ITS ---
STUDY: X-RAY - LEFT ELBOW REASON FOR EXAM: Female, 48 years old. Posttraumatic pain TECHNIQUE: 4 view(s) of the elbow. COMPARISON: None. FINDINGS: Normal visualized humerus, radius and ulna. Normal radiocapitellar and ulnotrochlear articulations. The soft tissue structures are unremarkable. RAD/Elbow min 3 Views IMPRESSION: Normal x-ray examination of the elbow. Electronically Signed: Romeo Henson MD at 20:40 EST , Service support ,
[2018-04-09] MEDS: oxyCODONE 5 MG Tablet PO (20:45)
--- NOTE | 2018-04-09 21:01 | ED.DEP ---
ED Disposition - Plan for ED Patient: Disposition: Home or Assisted Living Chief Complaint: Upper Extremity Injury Instructions: ED Sprain Elbow Referrals: Cici Martinez MD [Primary Care Provider] - 3-5 Days Additional Instructions: Follow-up with Dr Martinez later this week for repeat xrays as discussed.
[2018-04-09 21:15] VITALS: BP 115/76; PULSE 71; RESP 16; O2SAT 97
--- OUTSIDE RECORDS SUMMARY | 2018-06-12 05:28 | XMS RPT_ITS ---
:1970 Author Organization [place] Support Name Relationship Address Phone MARTIN PENN Unavailable [address] + [place] [address] UE Unavailable Unavailable Unavailable ROSANNA PENNN Unavailable [address] + [place] [address] UE Unavailable Unavailable Unavailable ROSANNA PENNN Unavailable [address] + [place] [address] UE Unavailable Unavailable Unavailable MUSTAPHA PENNLYN Unavailable [address] + [place] [address] UE Unavailable Unavailable Unavailable MUSTAPHA PENNLYN Unavailable [address] + [place] [address] UE Unavailable Unavailable Unavailable MUSTAPHA PENNLYN Unavailable [address] + [place] [address] UE Unavailable Unavailable Unavailable MUSTAPHA PENNLYN Unavailable [address] + [place] [address] UE Unavailable Unavailable Unavailable MUSTAPHA PENNLYN Unavailable [address] + [place] [address] UE Unavailable Unavailable Unavailable MUSTAPHA PENNLYN Unavailable [address] + [place] [address] UE Unavailable Unavailable Unavailable MUSTAPHA PENNLYN Unavailable [address] + [place] [address] UE Unavailable Unavailable Unavailable MUSTAPHA PENNLYN Unavailable [address] + [place] [address] UE Unavailable Unavailable Unavailable LINGENMYER, MARTIN Unavailable [address] + [place] [address] UE Unavailable Unavailable Unavailable LINGENMYER, MARTIN Unavailable [address] + [place] [address] UE Unavailable Unavailable Unavailable LINGENMYER, MARTIN Unavailable [address] + [place] [address] UE Unavailable Unavailable Unavailable LINGENMYER, MARTIN Unavailable [address] + [place] [address] UE Unavailable Unavailable Unavailable LINGENMYER, MARTIN Unavailable [address] + [place] [address] UE Unavailable Unavailable Unavailable LINGENMYER, MARTIN Unavailable [address] + [place] [address] UE Unavailable Unavailable Unavailable LINGENMYER, MARTIN Unavailable [address] + [place] [address] UE Unavailable Unavailable Unavailable LINGENMYER, MARTIN Unavailable [address] + [place] [address] UE Unavailable Unavailable Unavailable LINGENMYER, MARTIN Unavailable [address] + [place] [address] UE Unavailable Unavailable Unavailable LINGENMYER, MARTIN Unavailable [address] + [place] [address] UE Unavailable Unavailable Unavailable LINGENMYER, MARTIN Unavailable [address] + [place] [address] UE Unavailable Unavailable Unavailable LINGENMYER, MARTIN Unavailable [address] + [place] [address] UE Unavailable Unavailable Unavailable LINGENMYER, MARTIN Unavailable [address] + [place] [address] UE Unavailable Unavailable Unavailable LINGENMYER, MARTIN Unavailable [address] + [place] [address] UE Unavailable Unavailable Unavailable LINGENMYER, MARTIN Unavailable [address] + [place] [address] UE Unavailable Unavailable Unavailable LINGENMYER, MARTIN Unavailable [address] + [place] [address] UE Unavailable Unavailable Unavailable LINGENMYER, MARTIN Unavailable [address] + [place] [address] UE Unavailable Unavailable Unavailable LINGENMYER, MARTIN Unavailable [address] + [place] [address] UE Unavailable Unavailable Unavailable LINGENMYER, MARTIN Unavailable [address] + [place] [address] UE Unavailable Unavailable Unavailable LINGENMYER, MARTIN Unavailable [address] + [place] [address] UE Unavailable Unavailable Unavailable LINGENMYER, MARTIN Unavailable [address] + [place] [address] UE Unavailable Unavailable Unavailable LINGENMYER, MARTIN Unavailable [address] + [place] [address] UE Unavailable Unavailable Unavailable LINGENMYER, MARTIN Unavailable [address] + [place] [address] UE Unavailable Unavailable Unavailable LINGENMYER, MARTIN Unavailable [address] + [place] [address] UE Unavailable Unavailable Unavailable LINGENMYER, MARTIN Unavailable [address] + [place] [address] UE Unavailable Unavailable Unavailable LINGENMYER, MARTIN Unavailable [address] + [place] [address] UE Unavailable Unavailable Unavailable LINGENMYER, MARTIN Unavailable [address] + [place] [address] UE Unavailable Unavailable Unavailable LINGENMYER, MARTIN Unavailable [address] + [place] [address] UE Unavailable Unavailable Unavailable LINGENMYER, MARTIN Unavailable [address] + [place] [address] UE Unavailable Unavailable Unavailable LINGENMYER, MARTIN Unavailable [address] + [place] [address] UE Unavailable Unavailable Unavailable LINGENMYER, MARTIN Unavailable [address] + [place] [address] UE Unavailable Unavailable Unavailable LINGENMYER, MARTIN Unavailable [address] + [place] [address] UE Unavailable Unavailable Unavailable LINGENMYER, MARTIN Unavailable [address] + [place] [address] UE Unavailable Unavailable Unavailable LINGENMYER, MARTIN Unavailable [address] + [place] [address] UE Unavailable Unavailable Unavailable LINGENMYER, MARTIN Unavailable [address] + [place] [address] UE Unavailable Unavailable Unavailable LINGENMYER, MARTIN Unavailable [address] + [place] [address] UE Unavailable Unavailable Unavailable LINGENMYER, MARTIN Unavailable [address] + [place] [address] UE Unavailable Unavailable Unavailable LINGENMYER, MARTIN Unavailable [address] + [place] [address] UE Unavailable Unavailable Unavailable LINGENMYER, MARTIN Unavailable [address] + [place] [address] UE Unavailable Unavailable Unavailable LINGENMYER, MARTIN Unavailable [address] + [place] [address] UE Unavailable Unavailable Unavailable LINGENMYER, MARTIN Unavailable [address] + [place] [address] UE Unavailable Unavailable Unavailable LINGENMYER, MARTIN Unavailable [address] + [place] [address] UE Unavailable Unavailable Unavailable LINGENMYER, MARTIN Unavailable [address] + [place] [address] UE Unavailable Unavailable Unavailable LINGENMYER, MARTIN Unavailable [address] + [place] [address] UE Unavailable Unavailable Unavailable LINGENMYER, MARTIN Unavailable [address] + [place] [address] UE Unavailable Unavailable Unavailable LINGENMYER, MARTIN Unavailable [address] + [place] [address] UE Unavailable Unavailable Unavailable LINGENMYER, MARTIN Unavailable [address] + [place] [address] UE Unavailable Unavailable Unavailable LINGENMYER, MARTIN Unavailable [address] + [place] [address] UE Unavailable Unavailable Unavailable LINGENMYER, MARTIN Unavailable [address] + [place] [address] UE Unavailable Unavailable Unavailable LINGENMYER, MARTIN Unavailable [address] + [place] [address] UE Unavailable Unavailable Unavailable LINGENMYER, MARTIN Unavailable [address] + [place] [address] UE Unavailable Unavailable Unavailable LINGENMYER, MARTIN Unavailable [address] + [place] [address] UE Unavailable Unavailable Unavailable LINGENMYER, MARTIN Unavailable [address] + [place] [address] UE Unavailable Unavailable Unavailable LINGENMYER, MARTIN Unavailable [address] + [place] [address] UE Unavailable Unavailable Unavailable LINGENMYER, MARTIN Unavailable [address] + [place] [address] UE Unavailable Unavailable Unavailable LINGENMYER, MARTIN Unavailable [address] + [place] [address] UE Unavailable Unavailable Unavailable LINGENMYER, MARTIN Unavailable [address] + [place] [address] UE Unavailable Unavailable Unavailable LINGENMYER, MARTIN Unavailable [address] + [place] [address] UE Unavailable Unavailable Unavailable LINGENMYER, MARTIN Unavailable [address] + [place] [address] UE Unavailable Unavailable Unavailable LINGENMYER, MARTIN Unavailable [address] + [place] [address] UE Unavailable Unavailable Unavailable LINGENMYER, MARTIN Unavailable [address] + [place] [address] UE Unavailable Unavailable Unavailable LINGENMYER, MARTIN Unavailable [address] + [place] [address] UE Unavailable Unavailable Unavailable LINGENMYER, MARTIN Unavailable [address] + [place] [address] UE Unavailable Unavailable Unavailable LINGENMYER, MARTIN Unavailable [address] + [place] [address] UE Unavailable Unavailable Unavailable LINGENMYER, MARTIN Unavailable [address] + [place] [address] UE Unavailable Unavailable Unavailable LINGENMYER, MARTIN Unavailable [address] + [place] [address] UE Unavailable Unavailable Unavailable LINGENMYER, MARTIN Unavailable [address] + [place] [address] UE Unavailable Unavailable Unavailable LINGENMYER, MARTIN Unavailable [address] + [place] [address] UE Unavailable Unavailable Unavailable LINGENMYER, MARTIN Unavailable [address] + [place] [address] UE Unavailable Unavailable Unavailable LINGENMYER, MARTIN Unavailable [address] [place] [address] UE Unavailable Unavailable Unavailable LINGENMYER, MARTIN Unavailable [address] + [place] [address] UE Unavailable Unavailable Unavailable LINGENMYER, MARTIN Unavailable [address] + [address] [place] [address] UE Unavailable Unavailable Unavailable LINGENMYER, MARTIN Unavailable [address] + [place] [address] UE Unavailable Unavailable Unavailable LINGENMYER, MARTIN Unavailable [address] + [place] [address] UE Unavailable Unavailable Unavailable JERODENAIDEER MARTIN Unavailable [address] + [place] [address] UE Unavailable Unavailable Unavailable LINGENMYER, MARTIN Unavailable [address] + [place] [address] UE Unavailable Unavailable Unavailable JERODENAIDEER MARTIN Unavailable [address] + [address] [place] [address] + [place] [address] CHATAER MARTIN Unavailable [address] + [address] [place] [address] + [place] [address] FILI MARTIN Unavailable [address] + [place] [address] UE Unavailable Unavailable Unavailable JERODENAIDEER MARTIN Unavailable [address] + [address] [place] [address] + [place] [address] FILI MARTIN Unavailable [address] + [place] [address] UE Unavailable Unavailable Unavailable JERODENMARY MARTIN Unavailable [address] + [place] [address] UE Unavailable Unavailable Unavailable JERODENAIDEER MARTIN Unavailable [address] + [address] [place] [address] + [place] [address] CHATAER MARTIN Unavailable [address] + [address] [place] [address] + [place] [address] CHATAER, MARTIN Unavailable [address] + [address] [place] [address] + [place] [address] LINGENMYER MARTIN Unavailable [address] + [address] [place] [address] + [place] [address] LINGENMYER MARTIN Unavailable [address] + [address] [place] [address] + [place] [address] JERODENMYER MARTIN Unavailable [address] + [address] [place] [address] + [place] [address] JERODENMYER MARTIN Unavailable [address] + [address] [place] [address] + [place] [address] LINGENMYER MARTIN Unavailable [address] + [address] [place] [address] + [place] [address] LINGZIMYER MARTIN Unavailable [address] + [address] [place] [address] + [place] [address] LINGENMYER MARTIN Unavailable [address] + [address] [place] [address] + [place] [address] LINGENMYER MARTIN Unavailable [address] + [address] [place] [address] + [place] [address] LINGENMYER, MARTIN Unavailable [address] + [address] [place] [address] + [place] [address] LINGENMYER, MARTIN Unavailable [address] + [address] [place] [address] + [place] [address] LINGENMYER, MARTIN Unavailable [address] + [address] [place] [address] + [place] [address] LINGENMYER, MARTIN Unavailable [address] + [address] [place] [address] + [place] [address] LINGENMYER, MARTIN Unavailable [address] + [address] [place] [address] + [place] [address] LINGENMYER, MARTIN Unavailable [address] + [address] [place] [address] + [place] [address] LINGENMYER, MARTIN Unavailable [address] + [address] [place] [address] + [place] [address] LINGENMYER, MARTIN Unavailable [address] + [address] [place] [address] + [place] [address] LINGENMYER, MARTIN Unavailable [address] + [address] [place] [address] + [place] [address] LINGENMYER MARTIN Unavailable [address] + [address] [place] [address] + [place] [address] LINGENMYER, MARTIN Unavailable [address] + [address] [place] [address] + [place] [address] LINGENMYER, MARTIN Unavailable [address] + [address] [place] [address] + [place] [address] LINGZIMYER MARTIN Unavailable [address] + [address] [place] [address] + [place] [address] LINGZIMYER MARTIN Unavailable [address] + [address] [place] [address] + [place] [address] Care Team Providers Name Role Phone IRON NGUYEN Attending Unavailable MASCI, IRON Ramachandran Referring Unavailable MASCI, IRON Ramachandran Attending Unavailable MASCI, IRON Ramachandran Referring Unavailable MASCI, IRON Ramachandran Referring Unavailable MASCI, IRON Ramachandran Referring Unavailable MASCI, IRON Ramachandran Referring Unavailable JOSUÉ PRICE Attending Unavailable JOSUÉ PRICE Referring Unavailable OLDER, GEORGIE (FOOD SERVER) Attending Unavailable OLDER, GEORGIE (FOOD SERVER) Referring Unavailable OLDER, GEORGIE (FOOD SERVER) Referring Unavailable MASCI, IRON A Attending Unavailable MASCI, IRON A Referring Unavailable MASCI, IRON A Referring Unavailable MASCI, IRON Ramachandran Attending Unavailable MASCGuerda, IRON Ramachandran Referring Unavailable Josué Price Attending Unavailable PROVIDER, UNKNOWN Referring Unavailable Junior Whitman Attending Unavailable Alessandro [place] Referring Unavailable An Corey Attending Unavailable Oleghe, Efewongbe Primary Care Unavailable Tony Ramirez Attending Unavailable Junior Whitman Attending Unavailable Oleghe, Efewongbe Referring Unavailable Oleghe, Efewongbe Attending Unavailable Oleghe, Efewongbe Referring Unavailable SlabJunior curry Attending Unavailable Junior Whitman Referring Unavailable Oleghe, Efewongbe Primary Care Unavailable Junior Whitman Attending Unavailable Price, Josué Primary Care Unavailable Junior Whitman Admitting Unavailable Ashelfah, Ghasem Consulting Unavailable Junior Whitman Admitting Unavailable SlabJunior curry Attending Unavailable Price, Josué Primary Care Unavailable Ashelfah, Ghasem Consulting Unavailable Junior Whitman Consulting Unavailable Junior Whitman Admitting Unavailable Slabantoinette, Junior Attending Unavailable Price, Josué Primary Care Unavailable Ashelfah, Ghasem Consulting Unavailable Junior Whitman Consulting Unavailable Oleghe, Efewongbe Attending Unavailable Oleghe, Efewongbe Referring Unavailable Oleghe, Efewongbe Primary Care Unavailable Junior Whitman Attending Unavailable Oleghe, Efewongbe Referring Unavailable Oleghe, Efewongbe Primary Care Unavailable Marie Bush Attending Unavailable Oleghe, Efewongbe Attending Unavailable Oleghe, Efewongbe Referring Unavailable Oleghe, Efewongbe Attending Unavailable Oleghe, Efewongbe Referring Unavailable Oleghe, Efewongbe Primary Care Unavailable Junior Whitman Admitting Unavailable SlabJunior curry Attending Unavailable Price, Josué Primary Care Unavailable Junior Whitman Consulting Unavailable Junior Whitman Attending Unavailable Price, Josué Referring Unavailable Price, Josué Primary Care Unavailable SlabJunior curry Attending Unavailable Price, Josué Referring Unavailable Price, Josué Primary Care Unavailable SlabJunior curry Admitting Unavailable Junior Whitman Attending Unavailable Price, Josué Primary Care Unavailable Junior Whitman Consulting Unavailable Junior Whitman Admitting Unavailable Junior Whitman Attending Unavailable Price, Josué Primary Care Unavailable SlabJunior curry Consulting Unavailable Junior Whitman Attending Unavailable Price, Josué Referring Unavailable Price, Josué Primary Care Unavailable Junior Whitman Attending Unavailable Price, Josué Primary Care Unavailable SlabJunior curry Referring Unavailable SlabJunior curry Attending Unavailable Price, Josué Referring Unavailable Price, Josué Primary Care Unavailable SlabJunior curry Attending Unavailable Price, Josué Referring Unavailable Slaby, Junior Attending Unavailable Price, Josué Referring Unavailable Price, Josué Primary Care Unavailable Slaby, Junior Attending Unavailable Price, Josué Referring Unavailable Price, Josué Primary Care Unavailable Slaby, Junior Admitting Unavailable Slaby, Junior Attending Unavailable Slaby, Junior Referring Unavailable Price, Josué Primary Care Unavailable Slaby, Junior Admitting Unavailable Slaby, Junior Attending Unavailable Slaby, Junior Referring Unavailable Price, Josué Primary Care Unavailable Slaby, Junior Consulting Unavailable Slaby, Junior Admitting Unavailable Slaby, Junior Attending Unavailable Slaby, Junior Referring Unavailable Price, Josué Primary Care Unavailable Slaby, Junior Consulting Unavailable Slaby, Junior Admitting Unavailable Slaby, Junior Attending Unavailable Slaby, Junior Referring Unavailable Price, Josué Primary Care Unavailable Slaby, Junior Consulting Unavailable Slaby, Junior Admitting Unavailable Slaby, Junior Attending Unavailable Slaby, Junior Referring Unavailable Price, Josué Primary Care Unavailable Slaby, Junior Consulting Unavailable Slaby, Junior Admitting Unavailable Slaby, Junior Attending Unavailable Slaby, Junior Referring Unavailable Price, Josué Primary Care Unavailable Slaby, Junior Consulting Unavailable Slaby, Junior Attending Unavailable Price, Josué Primary Care Unavailable Slaby, Junior Admitting Unavailable Slaby, Junior Attending Unavailable Price, Josué Primary Care Unavailable Slaby, Junior Consulting Unavailable Slaby, Junior Attending Unavailable Slaby, Junior Referring Unavailable Price, Josué Primary Care Unavailable Slaby, Junior Attending Unavailable Price, Josué Primary Care Unavailable Slaby, Junior Consulting Unavailable Slaby, Junior Admitting Unavailable Slaby, Junior Attending Unavailable Slaby, Junior Referring Unavailable Price, Josué Primary Care Unavailable Slaby, Junior Consulting Unavailable ParekhButch CRAB PICKER-C Attending Unavailable Price, Josué Primary Care Unavailable Slaby, Junior Consulting Unavailable Slaby, Junior Attending Unavailable Price, Josué Primary Care Unavailable Alessandro Martinez Attending Unavailable Alessandro Martinez Referring Unavailable Price, Josué Primary Care Unavailable Romeo Jimenes Attending Unavailable Parekh, Butch CRAB PICKER-C Attending Unavailable Price, Josué Primary Care Unavailable Slaby, Junior Consulting Unavailable Slaby, Junior Attending Unavailable Price, Josué Primary Care Unavailable Parekh, Butch CRAB PICKER-C Attending Unavailable Price, Josué Primary Care Unavailable Slaby, Junior Consulting Unavailable Parekh, Butch CRAB PICKER-C Attending Unavailable Price, Josué Primary Care Unavailable Slaby, Junior Consulting Unavailable Parekh, Butch CRAB PICKER-C Attending Unavailable Slaby, Junior Referring Unavailable Parekh, Butch CRAB PICKER-C Attending Unavailable Parekh, Butch CRAB PICKER-C Attending Unavailable Price, Josué Primary Care Unavailable Slaby, Junior Consulting Unavailable Cebualyce, Josafat Attending Unavailable Romeo Jimenes Referring Unavailable Parekh, Butch CRAB PICKER-C Attending Unavailable Price, Josué Primary Care Unavailable Slaby, Junior Consulting Unavailable Parekh, Butch CRAB PICKER-C Attending Unavailable Price, Josué Primary Care Unavailable Slaby, Junior Consulting Unavailable Price, Josué Primary Care Unavailable Deborah Puckett CRAB PICKER-C Attending Unavailable Slaby, Junior Attending Unavailable Slaby, Junior Referring Unavailable Price, Josué Primary Care Unavailable Slaby, Junior Attending Unavailable Slaby, Junior Referring Unavailable Price, Josué Primary Care Unavailable Slaby, Junior Attending Unavailable Price, Josué Referring Unavailable Price, Josué Primary Care Unavailable Parekh, Butch CRAB PICKER-C Attending Unavailable Price, Josué Primary Care Unavailable Slaby, Junior Consulting Unavailable Slaby, Junior Admitting Unavailable Slaby, Junior Attending Unavailable Slaby, Junior Referring Unavailable Price, Josué Primary Care Unavailable Price, Josué Primary Care Unavailable Slaby, Junior Attending Unavailable Slaby, Junior Admitting Unavailable Slaby, Junior Attending Unavailable Slaby, Junior Referring Unavailable Price, Josué Primary Care Unavailable Slaby, Junior Consulting Unavailable Slaby, Junior Admitting Unavailable Slaby, Junior Attending Unavailable Slaby, Junior Referring Unavailable Price, Josué Primary Care Unavailable Slaby, Junior Consulting Unavailable Slaby, Junior Attending Unavailable Price, Josué Referring Unavailable Price, Josué Primary Care Unavailable Slaby, Junior Admitting Unavailable Slaby, Junior Attending Unavailable Slaby, Junior Referring Unavailable Price, Josué Primary Care Unavailable Slaby, Junior Consulting Unavailable Parekh, Butch CRAB PICKER-C Attending Unavailable Price, Josué Primary Care Unavailable Slaby, Junior Consulting Unavailable Price, Josué Primary Care Unavailable Manav Olmos Attending Unavailable Slaby, Junior Attending Unavailable Price, Josué Primary Care Unavailable Slaby, Junior Consulting Unavailable Slaby, Junior Attending Unavailable Slaby, Junior Referring Unavailable Price, Josué Primary Care Unavailable Slaby, Junior Consulting Unavailable Slaby, Junior Attending Unavailable Price, Josué Primary Care Unavailable Slaby, Junior Consulting Unavailable Slaby, Junior Attending Unavailable Price, Josué Primary Care Unavailable Slaby, Junior Consulting Unavailable Slaby, Junior Attending Unavailable Price, Josué Primary Care Unavailable Slaby, Junior Consulting Unavailable Slaby, Junior Attending Unavailable Price, Josué Primary Care Unavailable Slaby, Junior Consulting Unavailable Slaby, Junior Attending Unavailable Price, Josué Primary Care Unavailable Slaby, Junior Consulting Unavailable Slaby, Junior Attending Unavailable Price, Josué Primary Care Unavailable Slaby, Junior Consulting Unavailable Slaby, Junior Attending Unavailable Price, Josué Primary Care Unavailable Slaby, Junior Consulting Unavailable Slaby, Junior Attending Unavailable Price, Josué Primary Care Unavailable Slaby, Junior Consulting Unavailable Slaby, Junior Attending Unavailable Price, Josué Primary Care Unavailable Slaby, Junior Consulting Unavailable Slaby, Junior Attending Unavailable Price, Josué Primary Care Unavailable Slaby, Junior Consulting Unavailable Older, Georgie FOOD SERVER Attending Unavailable Older, Georgie FOOD SERVER Referring Unavailable Price, Josué Primary Care Unavailable Slaby, Junior Admitting Unavailable Slaby, Junior Attending Unavailable Slaby, Junior Referring Unavailable Price, Josué Primary Care Unavailable Slaby, Junior Consulting Unavailable Slaby, Junior Attending Unavailable Price, Josué Primary Care Unavailable Slaby, Junior Attending Unavailable Price, Josué Referring Unavailable Price, Josué Primary Care Unavailable Butch Parekh CRAB PICKER-C Attending Unavailable Price, Josué Primary Care Unavailable Slaby, Junior Consulting Unavailable Butch Parekh CRAB PICKER-C Attending Unavailable Price, Josué Primary Care Unavailable Slaby, Junior Consulting Unavailable Larry Govea Attending Unavailable Slaby, Junior Attending Unavailable Price, Josué Primary Care Unavailable Slaby, Junior Attending Unavailable Price, Josué Referring Unavailable Price, Josué Primary Care Unavailable Butch Parekh CRAB PICKER-C Attending Unavailable Price, Josué Primary Care Unavailable Slaby, Junior Consulting Unavailable Slaby, Junior Attending Unavailable Price, Josué Primary Care Unavailable Slaby, Junior Consulting Unavailable Slabantoinette, Junior Attending Unavailable Price, Josué Primary Care Unavailable Slaby, Junior Consulting Unavailable Slaby, Junior Attending Unavailable Price, Josué Primary Care Unavailable Slaby, Junior Consulting Unavailable Slaby, Junior Attending Unavailable Price, Josué Primary Care Unavailable Slaby, Junior Consulting Unavailable Slaby, Junior Attending Unavailable Price, Josué Primary Care Unavailable Slaby, Junior Consulting Unavailable Slaby, Junior Attending Unavailable Price, Josué Primary Care Unavailable Slaby, Junior Consulting Unavailable Butch Parekh CRAB PICKER-C Attending Unavailable Price, Josué Primary Care Unavailable Slaby, Junior Consulting Unavailable Haas, Kierra Attending Unavailable Price, Josué Primary Care Unavailable Slaby, Junior Consulting Unavailable Butch Parekh CRAB PICKER-C Attending Unavailable Price, Josué Primary Care Unavailable Slaby, Junior Consulting Unavailable Price, Josué Primary Care Unavailable Tony Ramirez Attending Unavailable Slaby, Junior Attending Unavailable Price, Josué Primary Care Unavailable Della Dale Attending Unavailable Price, Josué Primary Care Unavailable Slaby, Junior Consulting Unavailable Slaby, Junior Attending Unavailable Price, Josué Referring Unavailable Haas, Kierra Attending Unavailable Price, Josué Primary Care Unavailable Slaby, Junior Consulting Unavailable Haas, Kierra Attending Unavailable Price, Josué Primary Care Unavailable Slaby, Junior Consulting Unavailable Slaby, Junior Attending Unavailable Price, Josué Primary Care Unavailable Slaby, Junior Consulting Unavailable Haas, Kierra Attending Unavailable Haas, Kierra Referring Unavailable Slaby, Junior Attending Unavailable Slaby, Junior Referring Unavailable Price, Josué Primary Care Unavailable Bradly Good Consulting Unavailable Slaby, Junior Admitting Unavailable Haas, Kierra Attending Unavailable Haas, Kierra Referring Unavailable Haas, Kierra Attending Unavailable Haas, Kierra Referring Unavailable Haas, Kierra Attending Unavailable Haas, Kierra Referring Unavailable Slaby, Junior Attending Unavailable Price, Josué Primary Care Unavailable Alessandro Martinez Attending Unavailable Alessandro Martinez Referring Unavailable Slaby, Junior Admitting Unavailable Slaby, Junior Attending Unavailable Slaby, Junior Referring Unavailable Price, Josué Primary Care Unavailable Latisha, Bradly Consulting Unavailable Slaby, Junior Consulting Unavailable Slaby, Junior Admitting Unavailable Slaby, Junior Attending Unavailable Slaby, Junior Referring Unavailable Price, Josué Primary Care Unavailable Wejamal, Bradly Consulting Unavailable Slaby, Junior Consulting Unavailable Slaby, Junior Admitting Unavailable Slaby, Junior Attending Unavailable Slaby, Junior Referring Unavailable Price, Josué Primary Care Unavailable Weeman, Bradly Consulting Unavailable Slaby, Junior Consulting Unavailable Slaby, Junior Admitting Unavailable Slaby, Junior Attending Unavailable Slaby, Junior Referring Unavailable Price, Josué Primary Care Unavailable Wejamal, Bradly Consulting Unavailable Slaby, Junior Consulting Unavailable Slaby, Junior Attending Unavailable Slaby, Junior Referring Unavailable Oleghe, Efewongbe Primary Care Unavailable Slaby, Junior Attending Unavailable Oleghe, Efewongbe Referring Unavailable KusumisIron randall Attending Unavailable Slaby, uJnior Referring Unavailable Slaby, Junior Attending Unavailable Oleghe, Efewongbe Referring Unavailable Slaby, Junior Attending Unavailable Oleghe, Efewongbe Referring Unavailable Slaby, Junior Attending Unavailable Price, Josué Referring Unavailable Price, Josué Primary Care Unavailable PROBLEMS PROBLEMS DATE TYPE CONDITION / CODE ATTENDING STATUS SOURCE 04/12/2018 Unknown M79.632 - Pain in Oleghe, Active [facility] left forearm / [facility] M79.632(ICD-10) Hospital Repository 04/12/2018 Unknown G89.29 - Other Oleghe, Active [place] chronic pain / [facility] G89.29(ICD-10) Hospital Repository 04/06/2018 Unknown Z90.13 - Acquired Junior Whitman Active [place] absence of bilateral Community breasts and nipples Hospital / Z90.13(ICD-10) Repository 04/06/2018 Unknown C50.919 - Malignant Junior Whitman Active [place] neoplasm of Community unspecified site of Hospital unspecified 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 / C50.919(ICD-10) 03/29/2018 Unknown E07.9 - Disorder of Oleghe, Active [place] thyroid, unspecified [facility] / E07.9(ICD-10) Hospital Repository 03/29/2018 Unknown G62.9 - Oleghe, Active [place] Polyneuropathy, [facility] unspecified / Hospital G62.9(ICD-10) Repository 03/21/2018 Unknown C50.911 - Malignant Junior Whitman Active [place]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 Repository / C50.911(ICD-10) 03/21/2018 Unknown N65.1 - Junior Whitman Active [place] Disproportion of Community reconstructed breast Hospital / N65.1(ICD-10) Repository 03/21/2018 Unknown N65.0 - Deformity of Junior Whitman Active [place] reconstructed breast Community / N65.0(ICD-10) Hospital Repository 03/21/2018 Unknown T66.XXXS - Radiation Junior Whitman Active [facility] sickness, [facility] / T66.XXXS(ICD-10) Repository 03/21/2018 Unknown L59.8 - Other Junior Whitman Active [facility] specified disorders Community of the skin and Hospital subcutaneous tissue Repository related to radiation / L59.8(ICD-10) 03/01/2018 Unknown F40.298 - Other Junior Whitman Active [place] specified phobia / Community F40.298(ICD-10) Hospital Repository 01/28/2018 Unknown G89.18 - Other acute Junior Whitman Active [place] postprocedural pain Community / G89.18(ICD-10) Hospital Repository 01/18/2018 Unknown Z00.00 - Encounter Michelle, Active [place] for general adult [facility] without abnormal Repository findings / Z00.00(ICD-10) 02/02/2018 Unknown Z01.810 - Encounter Moodantoniotonia, Active [facility] for preprocedural [facility] examination / Repository Z01.810(ICD-10) 01/17/2018 Unknown K22.2 - Esophageal Ungur, Remus Active [place] obstruction / Community K22.2(ICD-10) Hospital Repository 10/31/2017 Active Anemia, unspecified NA Active [facility] / D64.9(ICD-10) [facility] [place] Repository 10/10/2017 Active Tachycardia, NA Active [facility] unspecified / [facility] Main R00.0(ICD-10) [place] Repository 10/13/2017 Unknown T86.828 - Other Junior Whitman Active [facility] complications of [facility] skin graft Hospital (allograft) Repository (autograft) / T86.828(ICD-10) 09/14/2017 Unknown L76.34 - Junior Whitman Active [place] Postprocedural Community seroma of skin and Hospital subcutaneous tissue Repository following other procedure / L76.34(ICD-10) 10/08/2017 Unknown L59.9 - Disorder of Junior Whitman Active [place] the skin and [facility] subcutaneous tissue Hospital related to Repository radiation, unspecified / L59.9(ICD-10) 08/08/2017 Active Unknown / NA Active [facility] UNK(Unknown) [facility] Main [place] Repository 07/31/2017 Active Malignant neoplasm NA Active [facility] of lower-outer Clinic Main quadrant of right [place] female breast / Repository C50.511(ICD-10) 07/31/2017 Active Estrogen receptor NA Active [facility] negative status [facility] (ER-) / [place] Z17.1(ICD-10) Repository 07/31/2017 Active Other ascites / NA Active [facility] R18.8(ICD-10) [facility] [place] Repository 07/31/2017 Active Abdominal distension NA Active [facility] (gaseous) / Clinic Main R14.0(ICD-10) [place] Repository 08/07/2017 Unknown M79.89 - Other Josafat Partida Active [facility] specified soft Community tissue disorders / Hospital M79.89(ICD-10) Repository 10/08/2017 Unknown T86.821 - Skin graft Junior Whitman (allograft) [facility]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 Hospital / T86.821(ICD-10) Repository 10/08/2017 Unknown Z45.2 - Encounter Junior Whitman for adjustment and Community management of Hospital vascular access Repository device / Z45.2(ICD-10) 05/29/2017 Admitting Unspecified open [facility], [facility] Diagnosis wound of right Josué System breast, initial Repository encounter / S21.001A(ICD-10) 06/14/2017 Unknown T84.89XA - Other Junior Whitman specified Community complication of Hospital internal orthopedic Repository prosthetic devices, implants and grafts, initial encounter / T84.89XA(ICD-10) 05/31/2017 Unknown Z42.1 - Encounter Junior Whitman for breast Community reconstruction Hospital following mastectomy Repository / Z42.1(ICD-10) 05/17/2017 Unknown Z17.1 - Estrogen Junior Whitman receptor negative Community status [ER-] / Hospital Z17.1(ICD-10) Repository 05/17/2017 Unknown Z87.891 - Personal Junior Whitman history of nicotine Community dependence / Hospital Z87.891(ICD-10) Repository PROCEDURES PROCEDURES No Procedure Records FoundRESULTS RESULTS FOREARM 2 VIEWS Observed: 04/12/2018 Status: F Source: [place] 3:58 PM [facility] REPOSITORY [facility] Imaging Services [address] [place] [address] [place] [address] Forearm 2 Views MR#: [id number] Acct: [id number] Name: SHARON BARRAGAN Rep #: [id number] : 1970 F 48 From: Roger Haywood DO PCP: Alessandro Martinez MD Status: REG CLI Study: Forearm 2 Views Date of Exam: 04/12/18 Exam# [id number] Ordering Dr: Alessandro Martinez MD STUDY: X-RAY - LEFT RADIUS AND ULNA REASON FOR EXAM: Female, 48 years old. Pain. TECHNIQUE: 2 view(s) of the forearm. COMPARISON: Elbow, April 09, 2018. Left forearm, April 09, 2018. FINDINGS: There is no demonstrated soft tissue swelling. Normal visualized radius. Normal visualized ulna. There is no acute fracture, dislocation or destructive osseous pathology. The elbow and wrist are intact and unchanged from the previous study. RAD/Forearm 2 Views IMPRESSION: Normal x-ray examination of the radius and ulna. Electronically Signed: Roger Haywood DO at 16:27 EST Tel [phone], Service support , CC: Alessandro Martinez MD Manufacturing Electrician: Signed PLASTIC SURGERY Observed: 04/12/2018 Status: F Source: [place] VISIT REPORT 9:34 AM [facility] REPOSITORY [facility] [address] [place] [address] OFFICE VISIT Date of Service: 04/06/18 MR#: [id number] Acct: [id number] Name: SHARON BARRAGAN Rep #: [id number] : 1970 Provider: Junior Whitman MD Age/Sex: 48/F Location: [facility] [place] Status: Signed Intake Vital Signs04/06/18 Body Mass Index (BMI) 36.3 04/06/18 Blood Pressure 114/78 01/18/19 Blood Pressure Location Lt brachial 04/06/18 Blood Pressure Position Sitting 04/06/18 Respiratory Rate 16 Intake Visit Reasons: post op surgery 01/23/18 Lifeguard Required: No Accompanied by: Mother Is patient in pain?: No Allergies cat dander Allergy (Severe, Verified 04/09/18 19:00) Lips AND throat swole FIBERGLASS Allergy (Severe, Uncoded 04/09/18 19:00) SEVERE ITCHING AND RASH POULTRY Allergy (Uncoded 04/09/18 19:00) Anaphylaxis Medications traZODone [Desyrel] 50 mg PO QHS 09/12/17 [History Confirmed 04/09/18] Fluticasone 0.05% [Flonase Nasal [place]] 1 spray NASAL DAILY 01/16/18 [History Confirmed 04/09/18] Acetaminophen [Tylenol Tablet] 650 mg PO Q6H PRN PRN tab 01/25/18 [Rx Confirmed 04/09/18] sertraline 100 mg tablet 150 mg PO DAILY@0600 #180 tab 03/06/18 [Rx Confirmed 04/09/18] atorvastatin 20 mg tablet 20 mg PO QHS #90 tab 03/29/18 [Rx Confirmed 04/09/18] diazepam 5 mg tablet 5 mg PO TID PRN #20 tab 04/06/18 [Rx Confirmed 04/09/18] oxycodone-acetaminophen 5 mg-325 mg tablet 1 tab PO 4X/DAY PRN #30 tab 04/06/18 [Rx Confirmed 04/09/18] Pregabalin [Lyrica] 150 mg PO BID 04/09/18 [History Confirmed 04/09/18] PFSH Medical History Carpal tunnel syndrome (Chronic) Seasonal allergies (Acute) Back pain (Acute) BONE FRACTURES - BROKEN RIGHT ARM (Acute) Breast lump in female (Acute) Breast cancer in female (Acute) History of emotional problems (Acute) Goiter (Chronic) Thyroid disease (Chronic) Fibroids (Acute) 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 Mother Anemia Anxiety Arthritis Breast cancer Depression Osteoporosis Father Anxiety Depression Mental disorder Parkinson disease Respiratory complication Social History Smoking Status: Former smoker second hand exposure: No alcohol intake: current alcohol intake frequency: a few times a week Alcohol type: other substance use type: does not use what type of physical activity do you participate in: other frequency: daily seatbelt use: always do you feel safe at home: Yes additional social history: SUN EXPOSURE: OCCASIONALLY HPI post op surgery 01/23/18: Details: Postop visit from her recent surgery on 01/23/18 where she underwent revision right breast reconstruction with excision radiation scar contour deformity and revision left breast reconstruction with excision excess mastectomy skin scar contour deformity and delayed bilateral breast reconstruction with placement submuscular saline tissue expanders and placement FlexHD acellular dermal matrix graft (13 x 22 cm used for both breasts). She was discharged from the hospital on 01/25/18. Patient complains of less incisional pain. The swelling in her arms has resolved. On exam, incisions are dry and intact. No clinical evidence of hematoma. Right back ulcer remains healed. Patient tolerated the last expansion fairly well. She states that the pain was bad for the first 5 days, but then became tolerable. Renewed her Percocet for pain (30 tabs). Renewed her Valium for spasm (20 tabs). Pathology showed underlying adipose tissue and dense fibroconnective tissue in the left breast and dense fibroconnective tissue and fibroadipose tissue with chronic inflammation and foreign body giant cell reaction in the right breast. No carcinoma was seen. Will tentatively plan on proceeding with further breast reconstruction next month with removal of the saline tissue expanders with replacement cohesive gel implants. Will also revise the reconstructed breasts with placement of acellular dermal matrix graft inferolateral slings. On the right breast, will excise radiation scar contour deformity. On the left breast, may excise excess mastectomy skin contour deformity depending on the size of the right breast reconstruction. I anticipate I may need to tighten up the left breast pocket at the time of the replacement cohesive gel implant. Also I may have to revise the inframammary fold by elevating the right and/or lowering the left. This would be aided by capsular plication and the acellular dermal matrix graft inferolateral slings. It has been scheduled for May 08, 2018. Patient was informed of the risks and complications of the procedure including alternatives to surgery. These were discussed with the patient personally. Patient voices understanding and wishes to proceed. Some of the risks and complications were included in a form from the [employer]. Followup after her breast reconstruction surgery. At the time of her surgery, she stated she was having bilateral carpal tunnel symptomatology with numbness in her thumb and index fingers, worse on the right. NCV/EMG is scheduled for later this month. Assessment AND Plan Problems 1. 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 Late effect of radiation T66.XXXS 6. 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 04/09/18 1818 <Electronically signed by Junior Whitman MD> Date Junior Whitman MD 04/12/18 0934<Electronically signed by Della BALDERAS> Cosigner Signature: Date (if applicable) Della Dale CC: NCS AND/OR EMG Observed: 04/11/2018 Status: F Source: [place] PATIENT 11:56 AM [facility] REPOSITORY [facility] Pulmonary Services/Neurology [address] [place] [address] MR#: [id number] Acct: [id number] Name: SHARON BARRAGAN Rep #: [id number] : 1970 48 From: Lobo Haynes MD Referring Dr: Junior Whitman MD Status: REG CLI Ordering Dr: Date: Location: PSN Sex: F C NCS and/or EMG Patient Report Ordering Doctor: Junior Whitman DATE OF SERVICE: 04/11/18 This is a bilateral upper extremity nerve conduction study and a left upper extremity EMG performed on this 48-year-old female who 2 years ago received chemotherapy and since that time she has had paresthesias in her hands and feet. She does note that her feet have improved to some extent. She also describes pain in her joints. Bilateral upper extremity sensory and motor nerve conduction studies are performed. There is mild to moderate prolongation of the median motor and sensory distal latencies with preservation of amplitudes and conduction velocities. The ulnar motor and sensory and radial sensory responses are normal. The median and ulnar F-wave latencies demonstrate mild prolongation of the left median F wave latency but they are otherwise normal. Left upper extremity needle electromyography is performed. Muscles evaluated included the first dorsal interosseous, abductor pollicis brevis, brachioradialis, biceps, triceps and deltoid muscles. All muscles demonstrated normal insertional activity with absence of pathologic spontaneous activity. Motor unit potential recruitment pattern and amplitude is normal in all muscles tested. Impression: There is evidence of very mild carpal tunnel syndrome in both wrists, somewhat worse on the left side electrophysiologically. There is no evidence of radiculopathy. 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 The patient complains of joint pains which are likely unrelated. 04/11/18 1156 <Electronically signed by Lobo Haynes MD> Date Lobo Haynes MD CC: Alessandro Martinez MD; Junior Whitman MD; Lobo Haynes MD Date Dictated: 04/11/18 1022 Date Transcribed: 04/11/18 1022 Manufacturing Electrician: NF Signed EMERGENCY DEPARTMENT Observed: 04/09/2018 Status: F Source: [place] SUMMARY 10:12 PM [facility] REPOSITORY [facility] Medical Records Department [address] [place] [address] Emergency Department Summary 04/09/18 1920 MR#: [id number] Acct: [id number] Name: SHARON BARRAGAN Rep #: [id number] : 1970 48 From: Marie Bush MD PCP: Alessandro Martinez MD Status: DEP ER - ER Visit Summary Date of Service: 04/09/18 Chief Complaint: Left arm injury History of Present Illness: The patient is a 48 F who fell on ice and snow yesterday landing on her left arm. She presents with continued pain throughout her left arm. She denies paresthesias. She is left-hand dominant. She is not on blood thinners. She denies any other injury from fall. Physical Examination: Vital signs unremarkable. Patient sitting upright in bed no acute distress. Head neck examination was no external sign of trauma. No C-spine tenderness. Heart is regular rate and rhythm. Lungs sounds are clear. Left upper extremity examination reveals mild muscular tenderness throughout the upper arm and forearm. She has good range of motion with normal cap refill. Normal sensation is noted throughout. No abrasions or ecchymosis noted. Test Results: Left forearm x-rays are obtained and read as normal. Left humerus x-rays are read with evidence of subtle cortical irregularity of the radial head suggesting small fracture. No humerus fracture. Focal x-rays of the elbow are suggested. Left elbow imaging is obtained and is read by radiology as no evidence of fracture. Emergency Department Course and Treatment: Patient initially declined anything for pain, but did have increased pain after moving her arm for x-ray. She was given a dose of oxycodone as she does take Percocet at home. Test results were discussed with her. I did advise her that sometimes radial head fractures are difficult to see right after injury but are more evident after a couple of days. She will be placed in a sling and will follow with her primary care physician later this week for repeat imaging. I did speak with her primary care physician to help facilitate this as well. Treatment Plan: [] Disposition: Discharge Impression: Mechanical fall with left arm contusion This note was generated with [employer] dictation software. It may contain incorrect words, spelling, and punctuation that were not noted in review of the chart prior to signing ED Disposition - Plan for ED Patient: Chief Complaint: Upper Extremity Injury Referrals: Alessandro Martinez MD [Primary Care Provider] - What to do if you have Problems For any increased pain, shortness of breath, bleeding, nausea or vomiting, chest pain, or any unexpected problems, contact your Primary Care Provider. Call [facility] ([phone]) or report to the closest Emergency Room. Call 911 if necessary. 04/09/182211 <Electronically signed by Marie Bush MD> Date Marie Bush MD Cosigner Signature (If Indicated): Date CC: Alessandro Martinez MD DISCHARGE INSTRUCTION Observed: 04/09/2018 Status: F Source: [place] 9:02 PM [facility] REPOSITORY [facility] Medical Records Department [address] [place] [address] Discharge Instruction 04/09/182100 MR#: [id number] Acct: [id number] Name: SHARON BARRAGAN Rep #: [id number] : 1970 48 From: Marie Bush MD PCP: Alessandro Martinez MD Status: REG ER ED Disposition - Plan for ED Patient: Disposition: Home or Assisted Living Chief Complaint: Upper Extremity Injury Instructions: ED Sprain Elbow Referrals: Alessandro Martinez MD [Primary Care Provider] - 3-5 Days Additional Instructions: Follow-up with Dr Martinez later this week for repeat xrays as discussed. What to do if you have Problems For any increased pain, shortness of breath, bleeding, nausea or vomiting, chest pain, or any unexpected problems, contact your Primary Care Provider. Call [facility] ([phone]) or report to the closest Emergency Room. Call 911 if necessary. 04/09/182101 <Electronically signed by Marie Bush MD> Date Marie Bush MD Cosigner Signature (If Indicated): Date CC: Alessandro Martinez MD ELBOW MIN 3 VIEWS Observed: 04/09/2018 Status: F Source: [place] 8:18 PM [facility] REPOSITORY [facility] Imaging Services [address] [place] [id number] Elbow min 3 Views MR#: [id number] Acct: [id number] Name: SHARON BARRAGAN Rep #: [id number] : 1970 F 48 From: Romeo Henson MD PCP: Alessandro Martinez MD Status: REG ER Study: Elbow min 3 Views Date of Exam: 04/09/18 Exam# [id number] Ordering Dr: Marie Bush MD STUDY: X-RAY - LEFT ELBOW REASON FOR EXAM: Female, 48 years old. Posttraumatic pain TECHNIQUE: 4 view(s) of the elbow. COMPARISON: None. FINDINGS: Normal visualized humerus, radius and ulna. Normal radiocapitellar and ulnotrochlear articulations. The soft tissue structures are unremarkable. RAD/Elbow min 3 Views IMPRESSION: Normal x-ray examination of the elbow. Electronically Signed: Romeo Henson MD at 20:40 EST , Service support , CC: Alessandro Martinez MD; Marie Bush MD Manufacturing Electrician: Signed FOREARM 2 VIEWS Observed: 04/09/2018 Status: F Source: [place] 7:12 PM [facility] REPOSITORY [facility] Imaging Services [address] [place] [address] Forearm 2 Views MR#: [id number] Acct: [id number] Name: SHARON BARRAGAN Rep #: [id number] : 1970 F 48 From: Hamlet Wolfe DO PCP: Alessandro Martinez MD Status: REG ER Study: Forearm 2 Views Date of Exam: 04/09/18 Exam# [id number] Ordering Dr: Marie Bush MD STUDY: X-RAY - LEFT RADIUS AND ULNA REASON FOR EXAM: Female, 48 years old. Fall with pain TECHNIQUE: 2 view(s) of the forearm. COMPARISON: None. FINDINGS: There is no demonstrated soft tissue swelling. Normal visualized radius. Normal visualized ulna. RAD/Forearm 2 Views IMPRESSION: Normal x-ray examination of the radius and ulna. Electronically Signed: Hamlet Wolfe DO at 19:56 EST Tel , Service support , CC: Alessandro Martinez MD; Marie Bush MD Manufacturing Electrician: Signed HUMERUS MIN 2 VIEWS Observed: 04/09/2018 Status: F Source: [place] 7:12 PM [facility] REPOSITORY [facility] Imaging Services [address] [place] [address] Humerus min 2 Views MR#: [id number] Acct: [id number] Name: SHARON BARRAGAN Rep #: [id number] : 1970 F 48 From: Hamlet Wolfe DO PCP: Alessandro Martinez MD Status: REG ER Study: Humerus min 2 Views Date of Exam: 04/09/18 Exam# [id number] Ordering Dr: Marie Bush MD STUDY: X-RAY - LEFT HUMERUS REASON FOR EXAM: Female, 48 years old. Fall with pain TECHNIQUE: 2 view(s) of the humerus. COMPARISON: None. FINDINGS: There is subtle cortical irregularity of the radial head suggesting small fracture. No evidence of humerus fracture. Recommend dedicated elbow plain films to further evaluate RAD/Humerus min 2 Views IMPRESSION: As above Electronically Signed: Hamlet Wolfe DO at 19:57 EST Tel , Service support , CC: Alessandro Martinez MD; Marie Bush MD Manufacturing Electrician: Signed THYROID STIM HORMONE Collected: 04/02/2018 Status: F Source: [place] (TSH) 8:54 AM [facility] REPOSITORY TYPE CODE TESTS RESULT OUT OF RANGE REFERENCE UNITS LAB L501.9520 0.358-3.74 uIU/mL Normal TSH 1.28 Performed By: #### L501.9520, L506.0400 #### [facility] Laboratory [address] [place], [place], [address] T4 FREE DIRECT Collected: 04/02/2018 Status: F Source: [place] 8:54 AM [facility] REPOSITORY TYPE CODE TESTS RESULT OUT OF RANGE REFERENCE UNITS LAB L506.0400 0.76-1.46 ng/dL Normal T4 FREE 0.81 DIRECT Performed By: #### L501.9520, L506.0400 #### [facility] Laboratory [address] [place], [place], [address] INTERNAL MEDICINE Observed: 03/30/2018 Status: F Source: [place] OFFICE VISIT 1:45 PM [facility] Internal Medicine [address] [place] [address] OFFICE VISIT Date of Service: 03/29/18 MR#: [id number] Acct: [id number] Name: SHARON BARRAGAN Rep #: [id number] : 1970 Provider: Alessandro Martinez MD Age/Sex: 48/F Location: [facility] Status: Signed Intake Vital Signs03/29/18 Body Mass Index (BMI) 36.3 03/29/18 Height 5 ft Intake Visit Reasons: 2 MO FU, ofc r/s from 03/22/18 Chief Complaint: Neuropathy, weight gain. Is patient in pain?: Yes (neuropathy) Allergies cat dander Allergy (Severe, Verified 03/10/18 11:06) Lips AND throat swole FIBERGLASS Allergy (Severe, Uncoded 03/10/18 11:06) SEVERE ITCHING AND RASH POULTRY Allergy (Uncoded 03/10/18 11:06) Anaphylaxis Medications traZODone [Desyrel] 50 mg PO QHS 09/12/17 [History Confirmed 03/10/18] Fluticasone 0.05% [Flonase Nasal Imlay] 1 spray NASAL DAILY 01/16/18 [History Confirmed 03/10/18] Acetaminophen [Tylenol Tablet] 650 mg PO Q6H PRN PRN tab 01/25/18 [Rx Confirmed 03/10/18] sertraline 100 mg tablet 150 mg PO DAILY@0600 #180 tab 03/06/18 [Rx Confirmed 03/10/18] diazepam 5 mg tablet 5 mg PO TID PRN #20 tab 03/09/18 [Rx Confirmed 03/10/18] diazepam 5 mg tablet 5 mg PO TID PRN #20 tab 03/21/18 [Rx Confirmed 03/21/18] levofloxacin 500 mg tablet 500 mg PO DAILY #5 tab 03/21/18 [Rx Confirmed 03/21/18] oxycodone-acetaminophen 5 mg-325 mg tablet 1 tab PO 4X/DAY PRN #30 tab 03/27/18 [Rx] atorvastatin 20 mg tablet 20 mg PO QHS #90 tab 03/29/18 [Rx] gabapentin 300 mg capsule 300 mg PO TID #90 cap 03/29/18 [Rx] Post menopausal: Yes PFSH Medical History Carpal tunnel syndrome (Chronic) Seasonal allergies (Acute) Back pain (Acute) BONE FRACTURES - BROKEN RIGHT ARM (Acute) Breast lump in female (Acute) Breast cancer in female (Acute) History of emotional problems (Acute) Goiter (Chronic) Thyroid disease (Chronic) Fibroids (Acute) 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 Mother Anemia Anxiety Arthritis Breast cancer Depression Osteoporosis Father Anxiety Depression Mental disorder Parkinson disease Respiratory complication Social History Smoking Status: Former smoker second hand exposure: No alcohol intake: current alcohol intake frequency: a few times a week Alcohol type: other substance use type: does not use what type of physical activity do you participate in: other frequency: daily seatbelt use: always do you feel safe at home: Yes additional social history: SUN EXPOSURE: OCCASIONALLY HPI HPI Chief Complaint: Neuropathy, weight gain. Details: SHARON BARRAGAN, is a 48 F who presents to the office today for for follow-up. She also has some concerns. She had been on Lyrica for neuropathy secondary to carpal tunnel syndrome and from chemotherapy. This was however discontinued and she was started on gabapentin per patient because she had no significant improvement on Lyrica. Currently well 150 mg twice daily of gabapentin which only slightly helps. She is scheduled to have an EMG study. She is also concerned about weight gain. States that since her chemotherapy she has noted consistent weight gain. She does admit to reduced activity but is getting back on track. ROS Const Constitutional: Positive for weight change (weight gain) and fatigue; no body ache, chills, sleep problems, fever(s), change in appetite, snoring, weakness, frequent falls, headache(s) or excessive sweating Eyes Eyes: No change in vision, eye pain, light sensitivity or blurry vision ENT ENT: No headache(s), abnormal hearing, ear pain, tinnitus, nasal congestion, sore throat or neck pain Resp Respiratory: No snoring, cough, shortness of breath or wheezing Cardio Cardiology: No excessive sweating, chest pain at rest, chest pain with exertion, shortness of breath, dyspnea on exertion, palpitations, orthopnea or lightheadedness Gastro GI: No abdominal pain, change in bowel habits, constipation, diarrhea, vomiting, nausea/dyspepsia or cramping Genitourinary-Female: No burning urination, painful urination, urinary incontinence, urinary frequency, abnormal vaginal bleeding, pelvic pain or other Musc Musculoskeletal: No neck pain, abnormal walking, joint pain, back pain, limited range of motion, numbness, tingling or muscle weakness Skin Skin: No redness, dry skin, itching, lesions, wounds or rash Neuro Neurology: No weakness, frequent falls, headache(s), abnormal hearing, abnormal walking, numbness, tingling, abnormal speech, dizziness or memory loss Psych Psychiatric: No change in appetite, No memory loss, No anxiety, No depression, No Thoughts of harming yourself/Others Endo Endocrine: Positive for fatigue; no excessive sweating, cold intolerance, increased thirst/drinking, heat intolerance, flushing or increased hunger Aller/Imm Allergy/Immunologic: No wheezing, itchy eyes, hives or seasonal allergy symptoms Freddy/Lymp Hematologic/Lymphatic: No easy bleeding, easy bruising or enlarged lymph nodes Exam Const General: cooperative, no acute distress Orientation: alert, awake, oriented x3 [facility] Head: atraumatic, normocephalic, normal to inspection Ears: hearing grossly normal bilaterally Neck Neck: normal visual inspection, full ROM, no lymphadenopathy Neck mass: No Resp Effort AND Inspection: normal respiratory effort, able to speak in complete sentences Auscultation: Bilateral: Clear to Auscultation Cardio Rate: regular rate Rhythm: regular rhythm Heart Sounds: S1 normal, S2 normal GI Palpation: soft, no hepatosplenomegaly Musc Musculoskeletal: No muscle weakness Neuro General: alert, awake, oriented x3, CN's II-XI intact bilaterally, moves all extremities Extrem General: no clubbing, cyanosis or edema Psych Appearance: grossly normal Mental Status: mental status grossly normal Mood: congruent mood Affect: normal affect Assessment AND Plan 1. Neuropathy G62.9 Plan Chronic. Says have been ongoing since chemotherapy. Lyrica not per patient helpful. Very modest improvement on gabapentin. Increase gabapentin to 300 mg 3 times daily. Follow-up at next visit. Medications New: 2. Carpal tunnel syndrome, bilateral G56.03 Plan Chronic. Worsening. Scheduled for an EMG study soon. Will follow. Gabapentin as above. 3. Obesity (BMI 30-39.9) E66.9 Plan Lifestyle and dietary modifications discussed. Advised to keep a food diary. Readdress at next visit. 4. Hyperlipidemia E78.5 Plan Familial. Lifestyle and dietary modifications. Will start on Lipitor 20 mg daily. 5. Thyroid disease E07.9 Plan Status post partial thyroidectomy. Thyroid studies ordered. Will follow. This note was generated with Pairination software. It may contain incorrect words, spelling, and punctuation that were not noted in checking the note before signing. Orders Orders: Plan Detail Other Medications Discontinued: Coding Level of Care Code Off vis,est,level 4 Diagnoses Neuropathy G62.9 Carpal tunnel syndrome, bilateral G56.03 Obesity (BMI 30-39.9) E66.9 Hyperlipidemia E78.5 Thyroid disease E07.9 03/30/18 1345 <Electronically signed by Alessandro Martinez MD> Date Alessandro Martinez MD Cosigner Signature: Date (if applicable) CC: PLASTIC SURGERY Observed: 03/21/2018 Status: F Source: [place] VISIT REPORT 10:38 PM [facility] REPOSITORY [facility] [address] [address] OFFICE VISIT Date of Service: 03/21/18 MR#: [id number] Acct: [id number] Name: SHARON BARARGAN Rep #: [id number] : 1970 Provider: Junior Whitman MD Age/Sex: 48/F Location: [facility] [place] Status: Signed Intake Intake Visit Reasons: postop surgery 01/23/18 Allergies cat dander Allergy (Severe, Verified 03/10/18 11:06) Lips AND throat swole FIBERGLASS Allergy (Severe, Uncoded 03/10/18 11:06) SEVERE ITCHING AND RASH POULTRY Allergy (Uncoded 03/10/18 11:06) Anaphylaxis Medications traZODone [Desyrel] 50 mg PO QHS 09/12/17 [History Confirmed 03/10/18] Fluticasone 0.05% [Flonase Nasal Imlay] 1 spray NASAL DAILY 01/16/18 [History Confirmed 03/10/18] Acetaminophen [Tylenol Tablet] 650 mg PO Q6H PRN PRN tab 01/25/18 [Rx Confirmed 03/10/18] pregabalin 150 mg capsule 150 mg PO BID #180 cap 01/26/18 [Rx Confirmed 03/10/18] sertraline 100 mg tablet 150 mg PO DAILY@0600 #180 tab 03/06/18 [Rx Confirmed 03/10/18] diazepam 5 mg tablet 5 mg PO TID PRN #20 tab 03/09/18 [Rx Confirmed 03/10/18] diazepam 5 mg tablet 5 mg PO TID PRN #20 tab 03/21/18 [Rx Confirmed 03/21/18] levofloxacin 500 mg tablet 500 mg PO DAILY #5 tab 03/21/18 [Rx Confirmed 03/21/18] oxycodone-acetaminophen 5 mg-325 mg tablet 1 tab PO 4X/DAY PRN #30 tab 03/21/18 [Rx Confirmed 03/21/18] PFSH Medical History Carpal tunnel syndrome (Chronic) Seasonal allergies (Acute) Back pain (Acute) BONE FRACTURES - BROKEN RIGHT ARM (Acute) Breast lump in female (Acute) Breast cancer in female (Acute) History of emotional problems (Acute) Goiter (Chronic) Thyroid disease (Acute) Fibroids (Acute) 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 Mother Anemia Anxiety Arthritis Breast cancer Depression Osteoporosis Father Anxiety Depression Mental disorder Parkinson disease Respiratory complication Social History Smoking Status: Former smoker second hand exposure: No alcohol intake: current alcohol intake frequency: a few times a week Alcohol type: other substance use type: does not use what type of physical activity do you participate in: other frequency: daily seatbelt use: always do you feel safe at home: Yes additional social history: SUN EXPOSURE: OCCASIONALLY HPI postop surgery 01/23/18: Details: Postop visit from her recent surgery on 01/23/18 where she underwent revision right breast reconstruction with excision radiation scar contour deformity and revision left breast reconstruction with excision excess mastectomy skin scar contour deformity and delayed bilateral breast reconstruction with placement submuscular saline tissue expanders and placement FlexHD acellular dermal matrix graft (13 x 22 cm used for both breasts). She was discharged from the hospital on 01/25/18. Patient complains of incisional pain. The swelling in her arms has resolved. On exam, incisions are dry and intact. No clinical evidence of hematoma. Right back ulcer remains healed. Patient is ready to continue saline tissue expansion today. Since the limiting factor for the reconstruction is the right breast, I will hold off on any expansion on the left today. There is no need to make the left breast bigger since that will stretch out the tissue and additional tissue would need to be removed for symmetry purposes since a smaller implant will be placed on the right side at the appropriate time because of the radiation. Will proceed with additional expansion on the right today. PROCEDURE NOTE Using a magnetic finder, the right breast port was localized and the skin was prepped with alcohol and infiltrated with xylocaine with epinephrine. I then prepped the right breast with Betadine. Using sterile draping and sterile gloves, I injected sterile saline into the right breast tissue inside parts sales without difficulty. I injected 250 ml for a total of 700 ml saline in a 550 ml inside parts sales. She tolerated the procedure well. Patient will apply antibiotic ointment to the puncture site daily for 3 days. Renewed his Levaquin for 5 days after the expansion. Renewed her Percocet for pain (30 tabs). Renewed her Valium for spasm (20 tabs). Pathology showed underlying adipose tissue and dense fibroconnective tissue in the left breast and dense fibroconnective tissue and fibroadipose tissue with chronic inflammation and foreign body giant cell reaction in the right breast. No carcinoma was seen. Follow up 2 weeks. Will tentatively plan on proceeding with further breast reconstruction with removal of the saline tissue expanders with replacement cohesive gel implants in a month. Will tentatively schedule for April. At the time of her surgery, she stated she was having bilateral carpal tunnel symptomatology with numbness in her thumb and index fingers, worse on the right. NCV/EMG is scheduled for later this month. Assessment AND Plan Problems 1. 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 Late effect of radiation T66.XXXS 6. 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 03/21/188 <Electronically signed by Junior Whitman MD> Date Junior Whitman MD Cosigner Signature: Date (if applicable) CC: VENOUS DUPLEX LOWER Observed: 03/10/2018 Status: F Source: [place] EXTREMITY 6:17 PM [facility] REPOSITORY [facility] Cardiovascular Services [facility] [place] [address] Venous Duplex US, Unilateral 03/10/18 1335 MR#: [id number] Acct: [id number] Name: SHARON BARRAGAN Rep #: [id number] : 1970 48 From: Jovanni Rothman MD Attending Dr: Status: DEP ER Ordering Dr: Tony Ramirez DO Date: 03/10/18 Location: ED Sex: F C Admitted: Reason For Study: SWELLING RIGHT GSV is normal. CFV is compressible, spontaneous, phasic, competent and demonstrates normal augmentation. FV is compressible, spontaneous, phasic, competent and demonstrates normal augmentation. POP V is compressible, spontaneous, phasic, competent and demonstrates normal augmentation. T/P Trunk is compressible. PTV is compressible. RT PerV is compressible. There is a nonvascularized hypoechoic structure measuring 2.4 x 1.66 cm located in the Rt Popliteal space. Procedure Exam performed portable in ED. A preliminary report was called and/or faxed to ED. Interpretation Summary Deep veins of the right lower extremity are patent and compressible segmentally. There is no evidence of right lower extremity deep vein thrombosis. Valvular competence appears intact within the proximal deep venous system on the right . The right greater saphenous vein appears patent and compressible segmentally. A non-vascular, hypoechoic structure is noted in the right popliteal space, measuring 2.4 cm x 1.7 cm. This probably represents a popliteal cyst. Clinical correlation is advised. Ordering Physician: Tony Ramirez Referring Physician: ALESSANDRO MARTINEZ Performed By: Vicki Ferguson, RDCS, RVT 03/10/18 1816 Date Jovanni Rothman MD CC: Alessandro Martinez MD; Tony Ramirez DO Date Dictated: 03/10/18 1335 Date Transcribed: 03/10/181815 Manufacturing Electrician: Signed DISCHARGE INSTRUCTION Observed: 03/10/2018 Status: F Source: [place] 2:03 PM [facility] REPOSITORY [facility] Medical Records Department [address] [place] [address] Discharge Instruction 03/10/18 1401 MR#: [id number] Acct: [id number] Name: SHARON BARRAGAN Rep #: [id number] : 1970 48 From: Tony Ramirez DO PCP: Alessandro Martinez MD Status: REG ER ED Disposition - Plan for ED Patient: Chief Complaint: Lower Extremity Injury Instructions: ED Knee Pain UKO Referrals: Alessandro Martinez MD [Primary Care Provider] - Johnny Burnham MD [STAFF PHYSICIAN] - 3-5 Days What to do if you have Problems For any increased pain, shortness of breath, bleeding, nausea or vomiting, chest pain, or any unexpected problems, contact your Primary Care Provider. Call [facility] ([phone]) or report to the closest Emergency Room. Call 911 if necessary. 03/10/18 1403 <Electronically signed by Tony Ramirez DO> Date Tony Ramirez DO Cosigner Signature (If Indicated): Date CC: Alessandro Martinez MD EMERGENCY DEPARTMENT Observed: 03/10/2018 Status: F Source: [place] SUMMARY 2:01 PM [facility] REPOSITORY [facility] Medical Records Department [address] [place] [address] Emergency Department Summary 03/10/18 1359 MR#: [id number] Acct: [id number] Name: SHARON BARRAGAN Rep #: [id number] : 1970 48 From: Tony Ramirez DO PCP: Alessandro Martinez MD Status: REG ER - ER Visit Summary Date of Service: 03/10/18 Chief Complaint: [Right knee pain] History of Present Illness: The patient is a 48 F [presents the emergency department complaint of right knee pain that she has had for possibly 2 weeks. Patient denies any trauma. She denies any chest pain or shortness of breath. Patient is concerned about a blood clot in her leg. Patient did have surgery last January as she had a trans-flap to her breasts after mastectomy. Patient has pain with flexion of the knee. Denies any fevers.] Physical Examination: [HEENT-PERRLA, EOMI. Cranial nerves II through XII grossly intact. TMs clear. Mucous membranes moist. No adenopathy. Cardiovascular-regular rate and rhythm without murmur or ectopy Lungs-clear to auscultation, chest wall stable without crepitus or subcu emphysema Abdomen-normoactive bowel sounds, soft, nontender, no rebound or rigidity, no peritoneal signs. Extremities-intact 4, normal range of motion, normal pulses, atraumatic. Right knee-no effusion. No erythema or warmth noted. Patient has limited flexion secondary to pain. No ropes or cords are palpated. Patient does have some tenderness over the right calf and a positive Homans sign. Patient has normal popliteal, dorsal pedal, and posterior tibial pulses.] Test Results: [X-ray of the right knee obtained showed questionable quadricep tendon injury. Venous duplex of the right lower extremity showed no evidence for DVT however she had did have a fluid-filled cyst behind her knee.] Emergency Department Course and Treatment: [Patient will be given an Bruce wrap] Treatment Plan: [Patient will be referred to orthopedics for follow-up.] Disposition: [Discharged home in stable condition. Patient has Percocet at home for pain.] Impression: [Right knee pain-etiology uncertain Law's cyst] This note was generated with Pairination software. It may contain incorrect words, spelling, and punctuation that were not noted in review of the chart prior to signing ED Disposition - Plan for ED Patient: Chief Complaint: Lower Extremity Injury Referrals: Alessandro Martinez MD [Primary Care Provider] - What to do if you have Problems For any increased pain, shortness of breath, bleeding, nausea or vomiting, chest pain, or any unexpected problems, contact your Primary Care Provider. Call [facility] ([phone]) or report to the closest Emergency Room. Call 911 if necessary. 03/10/18 1401 <Electronically signed by Tony Ramirez DO> Date Tony Ramirez DO Cosigner Signature (If Indicated): Date CC: Alessandro Martinez MD KNEE 3 VIEWS Observed: 03/10/2018 Status: F Source: [place] 11:40 AM [facility] REPOSITORY [facility] Imaging Services [address] [place] [address] Knee 3 Views MR#: [id number] Acct: [id number] Name: SHARON BARRAGAN Rep #: [id number] : 1970 F 48 From: Hamlet Wolfe DO PCP: Alessandro Martinez MD Status: PRE ER Study: Knee 3 Views Date of Exam: 03/10/18 Exam# [id number] Ordering Dr: Tony Ramirez DO STUDY: X-RAY - RIGHT KNEE REASON FOR EXAM: Female, 48 years old. Pain, no known injury TECHNIQUE: 3 view(s) of the knee. COMPARISON: None. FINDINGS: Normal visualized distal femur. Normal visualized proximal tibia and fibula. Normal proximal tibiofibular articulation. Normal medial femorotibial compartment. Normal lateral femorotibial compartment. Normal patellofemoral articulation. Irregularity of the quadriceps tendon suggests partial disruption. RAD/Knee 3 Views IMPRESSION: No acute osseous findings. Possible injury of the quadriceps tendon. Electronically Signed: Hamlet Wolfe DO at 12:01 EST Tel , Service support , CC: Alessandro Martinez MD; Tony Ramirez DO Manufacturing Electrician: Signed PLASTIC SURGERY Observed: 02/16/2018 Status: F Source: [place] VISIT REPORT 11:48 AM [facility] REPOSITORY [facility] Reconstructive Surgery [address] [facility] [address] [place] [address] OFFICE VISIT Date of Service: 02/12/18 MR#: [id number] Acct: [id number] Name: SHARON BARRAGAN Rep #: [id number] : 1970 Provider: Junior Whitman MD Age/Sex: 47/F Location: [facility] Status: Signed Intake Vital Signs02/12/18 Body Mass Index (BMI) 33.4 02/12/18 Blood Pressure 140/89 H 02/12/18 Blood Pressure Location Lt radial 02/12/18 Blood Pressure Position Sitting 02/12/18 Respiratory Rate 14 Intake Visit Reasons: post op surgery 01/23/18 Lifeguard Required: No Accompanied by: Mother Is patient in pain?: Yes (BREAST PAIN DULL BUT SOMETIMES SHARP ) Pain scale (1-10): 7 Allergies cat dander Allergy (Severe, Verified 02/12/18 17:00) Lips AND throat swole FIBERGLASS Allergy (Severe, Uncoded 02/12/18 15:48) SEVERE ITCHING AND RASH POULTRY Allergy (Uncoded 02/12/18 15:48) Anaphylaxis Medications Sertraline HCl [Zoloft] 150 mg PO DAILY@0600 09/12/17 [History Confirmed 01/23/18] traZODone [Desyrel] 50 mg PO QHS 09/12/17 [History Confirmed 01/23/18] Fluticasone 0.05% [Flonase Nasal Imlay] 1 spray NASAL DAILY 01/16/18 [History Confirmed 01/23/18] Acetaminophen [Tylenol Tablet] 650 mg PO Q6H PRN PRN tab 01/25/18 [Rx] Diazepam [Valium] 5 mg PO 4X/DAY PRN PRN #30 tab 01/25/18 [Rx] Docusate Sodium [Colace] 100 mg PO BID cap 01/25/18 [Rx] Furosemide [Lasix] 20 mg PO DAILY #14 tab 01/25/18 [Rx] levoFLOXacin tablet [Levaquin tablet] 500 mg PO DAILY #14 tab 01/25/18 [Rx] proMETHazine tablet [Phenergan tablet] 25 mg PO 4X/DAY PRN PRN #30 tab 01/25/18 [Rx] pregabalin 150 mg capsule 150 mg PO BID #180 cap 01/26/18 [Rx] furosemide 20 mg tablet 20 mg PO DAILY #14 tab 02/12/18 [Rx Confirmed 02/12/18] oxycodone-acetaminophen 5 mg-325 mg tablet See Rx Instructions PO 4X/DAY PRN #40 tab 02/12/18 [Rx Confirmed 02/12/18] levofloxacin 500 mg tablet 500 mg PO DAILY #14 tab 02/15/18 [Rx Confirmed 02/15/18] PFSH Medical History Carpal tunnel syndrome (Chronic) Seasonal allergies (Acute) Back pain (Acute) BONE FRACTURES - BROKEN RIGHT ARM (Acute) Breast lump in female (Acute) Breast cancer in female (Acute) History of emotional problems (Acute) Goiter (Chronic) Thyroid disease (Acute) Fibroids (Acute) 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 Mother Anemia Anxiety Arthritis Breast cancer Depression Osteoporosis Father Anxiety Depression Mental disorder Parkinson disease Respiratory complication Social History Smoking Status: Former smoker second hand exposure: No alcohol intake: current alcohol intake frequency: a few times a week Alcohol type: other substance use type: does not use what type of physical activity do you participate in: other frequency: daily seatbelt use: always do you feel safe at home: Yes additional social history: SUN EXPOSURE: OCCASIONALLY HPI post op surgery 01/23/18: Details: Postop visit from her recent surgery on 01/23/18 where she underwent revision right breast reconstruction with excision radiation scar contour deformity and revision left breast reconstruction with excision excess mastectomy skin scar contour deformity and delayed bilateral breast reconstruction with placement submuscular saline tissue expanders and placement FlexHD acellular dermal matrix graft (13 x 22 cm used for both breasts). She was discharged from the hospital on 01/25/18. Patient complains of incisional pain. She also complains of persistent swelling in her arms. Slowly getting better. On exam, incisions are dry and intact. No clinical evidence of hematoma. Right back ulcer has healed. Can stop the Silver dressing at this time. Will observe at this time. She should continue wearing a gauze dressing for protection to minimize abrasions. Mild swelling noted in her extremities. Patient is ready for saline tissue expansion today. PROCEDURE NOTE Using a magnetic finder, both ports were localized and the skin was prepped with alcohol and infiltrated with xylocaine with epinephrine. I then prepped both breasts with Betadine. Using sterile draping and sterile gloves, I injected sterile saline into the both breast tissue expanders without difficulty. I injected 250 ml for a total of 250 ml saline in each 550 ml inside parts sales bilaterally. She tolerated the procedure well. Patient will apply antibiotic ointment to the puncture site daily for 3 days. Wrote a script for Levaquin that she will take for 3 days after each expansion (14 tabs). Renewed her Percocet for pain (40 tabs). Renewed her Lasix, 20 mg, for 14 days. Her Potassium level from 01/31/18 was normal at 4.1. Pathology showed underlying adipose tissue and dense fibroconnective tissue in the left breast and dense fibroconnective tissue and fibroadipose tissue with chronic inflammation and foreign body giant cell reaction in the right breast. No carcinoma was seen. Follow up two weeks for further expansion. At the time of her surgery, she stated she was having bilateral carpal tunnel symptomatology with numbness in her thumb and index fingers, worse on the right. NCV/EMG is scheduled for March,. Assessment AND Plan Problems 1. 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 Late effect of radiation T66.XXXS 6. 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 Partial loss of skin graft T86.828 9. Estrogen receptor negative status [ER-] Z17.1 10. Former cigarette smoker Z87.891 11. 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 Partial loss of skin graft T86.828 Estrogen receptor negative status [ER-] Z17.1 Former cigarette smoker Z87.891 Carpal tunnel syndrome, bilateral G56.03 02/15/18 1231 <Electronically signed by Junior Whitman MD> Date Junior Whitman MD 02/16/18 1148<Electronically signed by Della BALDERAS> Cosigner Signature: Date (if applicable) Della Dale NPCarlosC CC: PLASTIC SURGERY Observed: 02/13/2018 Status: F Source: [facility] VISIT REPORT 9:17 AM [facility] REPOSITORY [facility] [address] [facility] [address] [place] [address] OFFICE VISIT Date of Service: 02/05/18 MR#: [id number] Acct: [id number] Name: SHARON BARRAGAN Rep #: [id number] : 1970 Provider: Junior Whitman MD Age/Sex: 47/F Location: [facility] Status: Signed Intake Vital Signs02/05/18 Body Mass Index (BMI) 33.4 02/05/18 Respiratory Rate 18 Intake Visit Reasons: post op surgery 01/23/18 Lifeguard Required: No Accompanied by: Mother Is patient in pain?: Yes (BILATERAL BREAST PAIN WORSE ON THE LEFT BREAST ACHING AND BURNING) Pain scale (1-10): 5 Allergies cat dander Allergy (Severe, Verified 02/12/18 17:00) Lips AND throat swole FIBERGLASS Allergy (Severe, Uncoded 02/12/18 15:48) SEVERE ITCHING AND RASH POULTRY Allergy (Uncoded 02/12/18 15:48) Anaphylaxis Medications Sertraline HCl [Zoloft] 150 mg PO DAILY@0600 09/12/17 [History Confirmed 01/23/18] traZODone [Desyrel] 50 mg PO QHS 09/12/17 [History Confirmed 01/23/18] Fluticasone 0.05% [Flonase Nasal Imlay] 1 spray NASAL DAILY 01/16/18 [History Confirmed 01/23/18] Acetaminophen [Tylenol Tablet] 650 mg PO Q6H PRN PRN tab 01/25/18 [Rx] Diazepam [Valium] 5 mg PO 4X/DAY PRN PRN #30 tab 01/25/18 [Rx] Docusate Sodium [Colace] 100 mg PO BID cap 01/25/18 [Rx] Furosemide [Lasix] 20 mg PO DAILY #14 tab 01/25/18 [Rx] levoFLOXacin tablet [Levaquin tablet] 500 mg PO DAILY #14 tab 01/25/18 [Rx] proMETHazine tablet [Phenergan tablet] 25 mg PO 4X/DAY PRN PRN #30 tab 01/25/18 [Rx] pregabalin 150 mg capsule 150 mg PO BID #180 cap 01/26/18 [Rx] furosemide 20 mg tablet 20 mg PO DAILY #14 tab 02/12/18 [Rx Confirmed 02/12/18] oxycodone-acetaminophen 5 mg-325 mg tablet See Rx Instructions PO 4X/DAY PRN #40 tab 02/12/18 [Rx Confirmed 02/12/18] PFSH Medical History Carpal tunnel syndrome (Chronic) Seasonal allergies (Acute) Back pain (Acute) BONE FRACTURES - BROKEN RIGHT ARM (Acute) Breast lump in female (Acute) Breast cancer in female (Acute) History of emotional problems (Acute) Goiter (Chronic) Thyroid disease (Acute) Fibroids (Acute) Cancer phobia (Chronic) Acquired absence of bilateral breasts and nipples (Chronic) Disproportion of reconstructed breast (Chronic) 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) Partial loss of skin graft (Acute) Late effect of radiation (Chronic) Breast cancer, right breast (Acute) Surgical History HYSTERCTOMY WITH BILATERAL SALPINGECTOMY (Acute) History of prophylactic mastectomy of left breast (Acute) History of thyroidectomy (Acute) History of tubal ligation (Acute) MASTECTOMY RIGHT BREAST AND BILATERAL SENTINEL NODE BIOPSIES (Acute) PORT PLACEMENT 02/02 (Acute) Status post transverse rectus abdominis muscle (TRAM) flap breast reconstruction (Acute) Family History Unknown No problems noted. Mother Anemia Anxiety Arthritis Breast cancer Depression Osteoporosis Father Anxiety Depression Mental disorder Parkinson disease Respiratory complication Social History Smoking Status: Former smoker second hand exposure: No alcohol intake: current alcohol intake frequency: a few times a week Alcohol type: other substance use type: does not use what type of physical activity do you participate in: other frequency: daily seatbelt use: always do you feel safe at home: Yes additional social history: SUN EXPOSURE: OCCASIONALLY HPI post op surgery 01/23/18: Details: Postop visit from her recent surgery on 01/23/18 where she underwent revision right breast reconstruction with excision radiation scar contour deformity and revision left breast reconstruction with excision excess mastectomy skin scar contour deformity and delayed bilateral breast reconstruction with placement submuscular saline tissue expanders and placement FlexHD acellular dermal matrix graft (13 x 22 cm used for both breasts). She was discharged from the hospital on 01/25/18. Patient complains of incisional pain. On exam, incisions are dry and intact. No clinical evidence of hematoma. Right back ulcer has improved with the recent placement of Silver dressing changes daily. Measures 2 x 1 cm. After using Cetacaine spray for anesthesia, I used a #3 curette and sharply debrided the ulcer down into the subcutaneous tissue as an excisional debridement. Some of the subcutaneous tissue was removed with excisional debridement. Good bleeding was seen in the subcutaneous tissue after the excision debridement. In addition to the subcutaneous tissue, I also debrided some senescent cells, some increased bioburden, and some devitalized tissue. Patient tolerated the procedure well. Hemostasis was obtained with gentle pressure. The dimensions of the ulcer increased after the excisional debridement to 2 x 1.1 cm. The ulcer was redressed with Silver dressing to be done daily. She is still on antibiotics from the surgery so there is no need for wound culture at this time. After the antibiotics have stopped and if there is evidence of suboptimal healing, then would culture at that time. Pathology showed underlying adipose tissue and dense fibroconnective tissue in the left breast and dense fibroconnective tissue and fibroadipose tissue with chronic inflammation and foreign body giant cell reaction in the right breast. No carcinoma was seen. The remaining two drains were removed today without difficulty, one from each breast. Renewed her Percocet for pain (40 tabs). At the time of her surgery, she stated she was having bilateral carpal tunnel symptomatology with numbness in her thumb and index fingers, worse on the right. NCV/EMG is scheduled for March,. Followup one week to begin the saline tissue expansion process. She states she was having too much discomfort to expand today. Her Potassium level from 01/31/18 is normal at 4.1. She states the Lasix had been helpful as she doesn't feel as bloated and swollen as she had right after the surgery. Assessment AND Plan Problems 1. 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 Late effect of radiation T66.XXXS 6. 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 Partial loss of skin graft T86.828 9. Estrogen receptor negative status [ER-] Z17.1 10. Former cigarette smoker Z87.891 11. 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 Partial loss of skin graft T86.828 Estrogen receptor negative status [ER-] Z17.1 Former cigarette smoker Z87.891 Carpal tunnel syndrome, bilateral G56.03 02/10/18 1539 <Electronically signed by Junior Whitman MD> Date Junior Whitman MD 02/13/18 0917<Electronically signed by Della BALDERAS> Cosigner Signature: Date (if applicable) Della Dale CC: PLASTIC SURGERY Observed: 02/06/2018 Status: F Source: [facility] [place] VISIT REPORT 9:10 AM [facility] REPOSITORY [facility] [address] [place] [address] OFFICE VISIT Date of Service: 01/31/18 MR#: [id number] Acct: [id number] Name: SHARON BARRAGAN Rep #: [id number] : 1970 Provider: Junior Whitman MD Age/Sex: 47/F Location: [facility] [place] Status: Signed Intake Vital Signs01/31/18 Body Mass Index (BMI) 33.4 01/31/18 Respiratory Rate 18 01/31/18 Pulse Rate 113 H Intake Visit Reasons: post op surgery 01/23/18 Lifeguard Required: No Accompanied by: Significant Other Is patient in pain?: Yes (BREAST PAIN ACHING) Pain scale (1-10): 7 Allergies cat dander Allergy (Severe, Verified 02/05/18 16:44) Lips AND throat swell FIBERGLASS Allergy (Severe, Uncoded 02/05/18 16:44) SEVERE ITCHING AND RASH POULTRY Allergy (Uncoded 02/05/18 16:44) Anaphylaxis Medications Sertraline HCl [Zoloft] 150 mg PO DAILY@0600 09/12/17 [History Confirmed 01/23/18] traZODone [Desyrel] 50 mg PO QHS 09/12/17 [History Confirmed 01/23/18] Fluticasone 0.05% [Flonase Nasal Imlay] 1 spray NASAL DAILY 01/16/18 [History Confirmed 01/23/18] Acetaminophen [Tylenol Tablet] 650 mg PO Q6H PRN PRN tab 01/25/18 [Rx] Diazepam [Valium] 5 mg PO 4X/DAY PRN PRN #30 tab 01/25/18 [Rx] Docusate Sodium [Colace] 100 mg PO BID cap 01/25/18 [Rx] Furosemide [Lasix] 20 mg PO DAILY #14 tab 01/25/18 [Rx] fentaNYL patch [Duragesic patch] 25 mcg TRANSDERM. Q72H 15 Days #5 patch 01/25/18 [Rx] levoFLOXacin tablet [Levaquin tablet] 500 mg PO DAILY #14 tab 01/25/18 [Rx] proMETHazine tablet [Phenergan tablet] 25 mg PO 4X/DAY PRN PRN #30 tab 01/25/18 [Rx] pregabalin 150 mg capsule 150 mg PO BID #180 cap 01/26/18 [Rx] oxycodone-acetaminophen 5 mg-325 mg tablet See Rx Instructions PO 4X/DAY PRN #40 tab 01/31/18 [Rx Confirmed 01/31/18] oxycodone-acetaminophen 5 mg-325 mg tablet See Rx Instructions PO 4X/DAY PRN #40 tab 02/05/18 [Rx Confirmed 02/05/18] PFSH Medical History Carpal tunnel syndrome (Chronic) Seasonal allergies (Acute) Back pain (Acute) BONE FRACTURES - BROKEN RIGHT ARM (Acute) Breast lump in female (Acute) Breast cancer in female (Acute) History of emotional problems (Acute) Goiter (Chronic) Thyroid disease (Acute) Fibroids (Acute) Cancer phobia (Chronic) Acquired absence of bilateral breasts and nipples (Chronic) Disproportion of reconstructed breast (Chronic) 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) Partial loss of skin graft (Acute) Late effect of radiation (Chronic) Breast cancer, right breast (Acute) Surgical History HYSTERCTOMY WITH BILATERAL SALPINGECTOMY (Acute) History of prophylactic mastectomy of left breast (Acute) History of thyroidectomy (Acute) History of tubal ligation (Acute) MASTECTOMY RIGHT BREAST AND BILATERAL SENTINEL NODE BIOPSIES (Acute) PORT PLACEMENT 02/02 (Acute) Status post transverse rectus abdominis muscle (TRAM) flap breast reconstruction (Acute) Family History Unknown No problems noted. Mother Anemia Anxiety Arthritis Breast cancer Depression Osteoporosis Father Anxiety Depression Mental disorder Parkinson disease Respiratory complication Social History Smoking Status: Former smoker second hand exposure: No alcohol intake: current alcohol intake frequency: a few times a week Alcohol type: other substance use type: does not use what type of physical activity do you participate in: other frequency: daily seatbelt use: always do you feel safe at home: Yes additional social history: SUN EXPOSURE: OCCASIONALLY HPI post op surgery 01/23/18: Details: Postop visit from her recent surgery on 01/23/18 where she underwent revision right breast reconstruction with excision radiation scar contour deformity and revision left breast reconstruction with excision excess mastectomy skin scar contour deformity and delayed bilateral breast reconstruction with placement submuscular saline tissue expanders and placement FlexHD acellular dermal matrix graft (13 x 22 cm used for both breasts). Patient complains of incisional pain. On exam, incisions are dry and intact. No clinical evidence of hematoma. Right back ulcer has recently re-opened with an abrasion ulcer. Measures 2.5 x 1 cm. After using Cetacaine spray for anesthesia, I used a #3 curette and sharply debrided the ulcer down into the subcutaneous tissue as an excisional debridement. Some of the subcutaneous tissue was removed with excisional debridement. Good bleeding was seen in the subcutaneous tissue after the excision debridement. In addition to the subcutaneous tissue, I also debrided some senescent cells, some increased bioburden, and some devitalized tissue. Patient tolerated the procedure well. Hemostasis was obtained with gentle pressure. The dimensions of the ulcer increased after the excisional debridement to 2.5 x 1.1 cm. The ulcer was redressed with Silver dressing to be done daily. She is still on antibiotics from the surgery so there is no need for wound culture at this time. After the antibiotics have stopped and if there is evidence of suboptimal healing, then would culture at that time. Pathology was discussed with the patient. It showed underlying adipose tissue and dense fibroconnective tissue in the left breast and dense fibroconnective tissue and fibroadiposed tissue with chronic inflammation and foreign body giant cell reaction in the right breast. No carcinoma was seen. Two drains were removed today without difficulty, one from each breast. Renewed her Percocet for pain (40 tabs). At the time of her surgery, she stated she was having bilateral carpal tunnel symptomatology with numbness in her thumb and index fingers, worse on the right. NCV/EMG is scheduled for March,. Follow up 1 week to remove the remaining two drains. May start her breast expansion next week. Assessment AND Plan Problems 1. 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 Late effect of radiation T66.XXXS 6. 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 Partial loss of skin graft T86.828 9. Estrogen receptor negative status [ER-] Z17.1 10. Former cigarette smoker Z87.891 11. 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 Partial loss of skin graft T86.828 Estrogen receptor negative status [ER-] Z17.1 Former cigarette smoker Z87.891 Carpal tunnel syndrome, bilateral G56.03 02/04/18 1807 <Electronically signed by Junior Whitman MD> Date Junior Whitman MD 02/06/18 0910<Electronically signed by Dlela Dale NP-C> Cosigner Signature: Date (if applicable) Della DaleC CC: BASIC METABOLIC Collected: 01/31/2018 Status: F Source: [facility] ([facility]) 12:14 PM [facility] REPOSITORY Order Comment: Send Results To: dr whitman fax [phone] Reason for Laboratory Test taking lasix medication TYPE CODE TESTS RESULT OUT OF RANGE REFERENCE UNITS LAB L501.0100 74-106 mg/dL Normal GLU 101 Result Comment: Fasting Glucose result from 100 to 125 mg/dL suggests IMPAIRED HOMEOSTASIS per A.D.A. criteria. Please note revised GLUCOSE reference range effective 2017. LAB L501.1000 7-18 mg/dL Normal BUN 10 LAB L501.1100 0.55-1.02 mg/dL Normal CREAT,SERUM 0.81 Result Comment: The validity of the calculated GFR AND GFRAA in patients over 70 years has not been determined. Clinical correlation is essential. LAB L501.1110 >60 mL/min Normal EST GFR 79 Result Comment: Non- GFR Calc LAB L501.1115 >60 mL/min Normal EST GFR - AA 96 Result Comment: GFR Calc LAB L501.1300 10-20 RATIO Normal BUN/CRE 12.3 LAB L501.2200 8.5-10.1 mg/dL CA Normal 8.8 LAB L501.5300 136-145 mmol/L NA Normal 137 LAB L501.5600 3.5-5.1 mmol/L K Normal 4.1 Result Comment: Slight Hemolysis, Result may be falsely increased. LAB L501.5900 98-107 mmol/L Normal CL 103 LAB L501.6100 21.0-32.0 mmol/L Normal CO2 21.0 LAB L501.6200 5-15 Normal GAP 13 Performed By: #### L500.2500 #### [facility] [address] [place], [address] CNOVSP Observed: 01/31/2018 Status: COMPLETED Source: [facility] 11:30 AM [facility] REPOSITORY Visit (SP) Office (HEMRICHARD) SHARON BARRAGAN ([id number]) 1970 F Date Time Provider Department 01/31/18 11:30 AM [facility] During your visit today, we recorded the following information about you: Temperature Pulse Blood pressure Weight 98.2 degrees 98/minute 121/66 83.5 kg She Basilio LPN, LPN 01/31/2018 11:28 AM Signed Est pt. 3 month f/u ESTELLE Pineda DO 01/31/2018 12:36 PM Signed Diagnosis: 1) Triple negative early stage breast cancer. HPI: The patient is a 47 yo premenopausal female (at time of diagnosis) who underwent a hysterectomy with unilateral oophorectomy 09/2015. About 3 weeks post-op, patient appreciated a lump in the right breast. Subjectively it grew fairly quickly. A diagnostic mammogram 11/19/2015 revealed a 1.2 cm x 0.8 cm x 1.2 cm lobulated mass in the right breast that was suspicious of malignancy. Ultrasound-guided core needle biopsy of 2 lesions in the right breast on 12/09/2015 was performed. The pathology demonstrated that the first lesion revealed invasive ductal carcinoma, nuclear grade 3. The second lesion taken from the lesion at the 9:00 position demonstrated fibroadenoma. Negative for both ER and ID. HER-2 was interpreted as 2+, granular. Subsequent FISH testing revealed it to be nonamplified. MRI of breasts 12/28/2015: IMPRESSION: 1. ?1.3 cm enhancing mass at 7:00, at posterior depth, in the right breast represents the biopsy proven invasive ductal carcinoma. ?Continued surgical/oncologic management is necessary. 2. ?Four additional suspicious enhancing masses (6:00, anterior depth; 9:00, posterior depth; 9:00 posterior depth; central access, anterior depth) in the right breast. ?If breast conservation is desired, additional biopsy/biopsies is/are recommended. ?Per the electronic medical record, the patient is currently planning for mastectomy. 3. ?Suspicious 0.6 cm enhancing mass at 1:00, at middle depth, in the left breast. ?Second look ultrasound with subsequent biopsy is recommended. ?If no sonographic correlate is identified, then an MRI guided biopsy is recommended. 4. ?Suspicious 0.6 cm enhancing mass at 6:00, at posterior depth, in the left breast. ?Second look ultrasound with subsequent biopsy is recommended. ?If no sonographic correlate is identified, then an MRI guided biopsy is recommended. 5. ?No MRI evidence of internal mammary or axillary lymphadenopathy. Quit smoking 01/02/2016. Patient underwent a right-sided mastectomy along with sentinel lymph node biopsy as well as a prophylactic left mastectomy with left sentinel lymph node biopsy on 01/12/2016. Final pathology demonstrated that within the right breast there was one focus of cancer measuring 1.5 cm. DCIS and LCIS were not present. Overall grade was 3. Margins were negative. Lymphovascular invasion was not observed. 4 lymph nodes were retrieved and all were negative for disease. Specimen from the left breast revealed diffuse fibrocystic changes and intraductal hyperplasia without atypia. No malignancy was observed. One sentinel lymph node was retrieved on the left and it was negative for disease. She underwent attempted TRAM flap breast reconstruction in May 2017. Evidently the top portion of the graft failed and became necrotic and was removed and debrided. She developed a wound and initially had a wound VAC to and required hyperbaric oxygen treatment. Previous therapy: 1) AC followed by Taxol. Competed 06/16/2016. 2) Adjuvant radiation completed 08/30/2016. Presents for ongoing oncologic management. Interim history: Leia working very well for b/l leg neuropathic pain. She's very pleased with the relief. Had surgery 01/[address] bilateral expanders. Has drains in. Expected postop pain. Responding well to pain medication. PMH, medications and allergies as below personally reviewed by me today. Any changes documented in appropriate section. ROS: Constitutional: Denies episodes of fever and night sweats. Neuro: See above. HEENT: No recent change in voice, vision or hearing. Resp: Denies cough, wheeze and hemoptysis. CVS: See above. GI: Denies dysgeusia. Denies symptoms of stomatitis. Denies dysphagia and odynophagia. : Denies dysuria or gross hematuria. No symptoms of bladder outlet obstruction. Endo: Denies hot flashes. Denies polyuria and polydipsia. Denies heat and cold intolerance. Musculoskeletal: See above. Derm: Denies rash. Denies jaundice and diffuse pruritis. Heme: See above. Psych: Normal mood. PHYSICAL EXAM: Vitals: Blood pressure 121/66, pulse 98, temperature 36.8 ?C (98.2 ?F), weight 83.5 kg (184 lb), last menstrual period 08/31/2015. Well-appearing and in no acute distress. EYES: Sclerae are anicteric bilaterally. NECK: Supple. LYMPHATIC: There is no palpable cervical, supraclavicular adenopathy. RESPIRATORY: Inspiratory breath sounds are of normal intensity in all [place]. No rales, wheezes or rhonchi. CARDIOVASCULAR: Rhythm is regular. Normal intensity S1/S2. There is no gallop or murmur. BREAST: Not examined today--has dressings in place. ABDOMEN: Less upper abdominal distention. No mass. Extremities: No swelling or edema. SKIN: No jaundice or rash. No petechiae. 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 No focal motor weakness. MUSCULOSKELETAL: No muscle wasting or tenderness. ASSESSMENT/PLAN: (C50.511) Breast cancer of lower-outer quadrant of right female breast (HCC) (primary encounter diagnosis) Assessment: -pT1c (1.5 cm; grade 3; no ALI) pN0(sln) MX ER/ID negative, HER-2 nonamplified invasive ductal carcinoma the right breast. -Genetic testing negative. -No concerning symptoms or exam findings currently to suggest recurrence of disease. Plan: -OV in about 3 months. Iron Nguyen DO Referring Provider: IRON NGUYEN [[id number]] Allergies As of Date: 01/31/2018 Noted Allergy Reaction HAYFEVER (HOMEOPATHIC PRODUCTS) 03/07/2006 poultry [Other] 03/07/2006 Comments: [place], chicken Date Reviewed: 01/31/2018 Reviewed by: She Wright (Wood Model Builder) ESTELLE Basilio - Fully Assessed Reason for Visit: Established Patient [175] Primary Visit Diagnosis:Malignant neoplasm of lower-outer quadrant of right breast of female, estrogen receptor negative (HCC) [C50.511, Z17.1] Follow-up and Disposition History Recorded Prescriptions as of 01/31/2018 Sig: PREGABALIN 150 MG CAPSULE Take 1 capsule by mouth twice* IFEREX 150 150 MG IRON CAPSULE TAKE ONE CAPSULE BY MOUTH MATHEW* TRAZODONE 50 MG TABLET Take 1 tablet by mouth daily * OXYCODONE-ACETAMINOPHEN 5 MG-* Take 1 tablet by mouth every * DIAZEPAM 5 MG TABLET Take 5 mg by mouth every 6 ho* SERTRALINE 50 MG TABLET Take 3 tablets by mouth once * ACETAMINOPHEN 500 MG TABLET Take 500 mg by mouth as neede* FENTANYL 25 MCG/HR TRANSDERMA* 1 Patch. Every 72 hrs. 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] INVALID FOR*02/20/2017 Sciatica of right side [M54.31] INVALID FOR*02/04/2016 Lumbar sprain and strain INVALID FOR*02/04/2016 SI (sacroiliac) joint inflammation (HCC) [M46.1]INVALID FOR*02/04/2016 Lumbar radicular pain [M54.16] INVALID FOR*02/04/2016 Fibroid uterus [D25.9] INVALID FOR*04/04/2016 Breast cancer of lower-outer quadrant of right *INVALID FOR* Severe episode of recurrent major depressive di*INVALID FOR* Chest wall pain following surgery [R07.89, G89.*INVALID FOR*06/15/2016 Priority: Moderate Financial difficulties [Z59.8] INVALID FOR* Status post mastectomy [Z90.10] INVALID FOR* Insomnia due to medical condition [G47.01] INVALID FOR* Stress at home [F43.9] INVALID FOR* History of Clostridium difficile [IHZ2392] INVALID FOR*02/20/2017 More... Atherosclerosis of aorta (HCC) [I70.0] INVALID FOR* More... Palpitations [R00.2] INVALID FOR* Lymphedema [I89.0] INVALID FOR* Chronic bilateral low back pain with bilateral *INVALID FOR* More... Bilateral plantar fasciitis [M72.2] INVALID FOR* Open wound of chest wall [S21.109A] INVALID FOR* More... Visit Notes: >> She Basilio LPN Wed Jan 31, 2018 11:18 AM Status: Signed Est pt. 3 month f/u She Basilio LPN Encounter Status:Closed by IRON NGUYEN DO on 01/31/18 PROGRESS Observed: 01/31/2018 Status: COMPLETED Source: [place] 11:23 AM [facility] REPOSITORY [facility] ID: [id number] Author: Iron Nguyen Service: (none) Author Type: Physician Type: Progress Notes Filed: 01/31/2018 12:36 PM Note Text: Diagnosis: 1) Triple negative early stage breast cancer. HPI: The patient is a 47 yo premenopausal female (at time of diagnosis) who underwent a hysterectomy with unilateral oophorectomy 09/2015. About 3 weeks post-op, patient appreciated a lump in the right breast. Subjectively it grew fairly quickly. A diagnostic mammogram 11/19/2015 revealed a 1.2 cm x 0.8 cm x 1.2 cm lobulated mass in the right breast that was suspicious of malignancy. Ultrasound-guided core needle biopsy of 2 lesions in the right breast on 12/09/2015 was performed. The pathology demonstrated that the first lesion revealed invasive ductal carcinoma, nuclear grade 3. The second lesion taken from the lesion at the 9:00 position demonstrated fibroadenoma. Negative for both ER and ID. HER-2 was interpreted as 2+, granular. Subsequent FISH testing revealed it to be nonamplified. MRI of breasts 12/28/2015: IMPRESSION: 1. ?1.3 cm enhancing mass at 7:00, at posterior depth, in the right breast represents the biopsy proven invasive ductal carcinoma. ?Continued surgical/oncologic management is necessary. 2. ?Four additional suspicious enhancing masses (6:00, anterior depth; 9:00, posterior depth; 9:00 posterior depth; central access, anterior depth) in the right breast. ?If breast conservation is desired, additional biopsy/biopsies is/are recommended. ?Per the electronic medical record, the patient is currently planning for mastectomy. 3. ?Suspicious 0.6 cm enhancing mass at 1:00, at middle depth, in the left breast. ?Second look ultrasound with subsequent biopsy is recommended. ?If no sonographic correlate is identified, then an MRI guided biopsy is recommended. 4. ?Suspicious 0.6 cm enhancing mass at 6:00, at posterior depth, in the left breast. ?Second look ultrasound with subsequent biopsy is recommended. ?If no sonographic correlate is identified, then an MRI guided biopsy is recommended. 5. ?No MRI evidence of internal mammary or axillary lymphadenopathy. Quit smoking 01/02/2016. Patient underwent a right-sided mastectomy along with sentinel lymph node biopsy as well as a prophylactic left mastectomy with left sentinel lymph node biopsy on 01/12/2016. Final pathology demonstrated that within the right breast there was one focus of cancer measuring 1.5 cm. DCIS and LCIS were not present. Overall grade was 3. Margins were negative. Lymphovascular invasion was not observed. 4 lymph nodes were retrieved and all were negative for disease. Specimen from the left breast revealed diffuse fibrocystic changes and intraductal hyperplasia without atypia. No malignancy was observed. One sentinel lymph node was retrieved on the left and it was negative for disease. She underwent attempted TRAM flap breast reconstruction in May 2017. Evidently the top portion of the graft failed and became necrotic and was removed and debrided. She developed a wound and initially had a wound VAC to and required hyperbaric oxygen treatment. Previous therapy: 1) AC followed by Taxol. Competed 06/16/2016. 2) Adjuvant radiation completed 08/30/2016. Presents for ongoing oncologic management. Interim history: Leia working very well for b/l leg neuropathic pain. She's very pleased with the relief. Had surgery 01/[address] bilateral expanders. Has drains in. Expected postop pain. Responding well to pain medication. PMH, medications and allergies as below personally reviewed by me today. Any changes documented in appropriate section. ROS: Constitutional: Denies episodes of fever and night sweats. Neuro: See above. HEENT: No recent change in voice, vision or hearing. Resp: Denies cough, wheeze and hemoptysis. CVS: See above. GI: Denies dysgeusia. Denies symptoms of stomatitis. Denies dysphagia and odynophagia. : Denies dysuria or gross hematuria. No symptoms of bladder outlet obstruction. Endo: Denies hot flashes. Denies polyuria and polydipsia. Denies heat and cold intolerance. Musculoskeletal: See above. Derm: Denies rash. Denies jaundice and diffuse pruritis. Heme: See above. Psych: Normal mood. PHYSICAL EXAM: Vitals: Blood pressure 121/66, pulse 98, temperature 36.8 ?C (98.2 ?F), weight 83.5 kg (184 lb), last menstrual period 08/31/2015. Well-appearing and in no acute distress. EYES: Sclerae are anicteric bilaterally. NECK: Supple. LYMPHATIC: There is no palpable cervical, supraclavicular adenopathy. RESPIRATORY: Inspiratory breath sounds are of normal intensity in all [place]. No rales, wheezes or rhonchi. CARDIOVASCULAR: Rhythm is regular. Normal intensity S1/S2. There is no gallop or murmur. BREAST: Not examined today--has dressings in place. ABDOMEN: Less upper abdominal distention. No mass. Extremities: No swelling or edema. SKIN: No jaundice or rash. No petechiae. 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 No focal motor weakness. MUSCULOSKELETAL: No muscle wasting or tenderness. ASSESSMENT/PLAN: (C50.511) Breast cancer of lower-outer quadrant of right female breast (HCC) (primary encounter diagnosis) Assessment: -pT1c (1.5 cm; grade 3; no ALI) pN0(sln) MX ER/ID negative, HER-2 nonamplified invasive ductal carcinoma the right breast. -Genetic testing negative. -No concerning symptoms or exam findings currently to suggest recurrence of disease. Plan: -OV in about 3 months. Iron Nguyen DO OPERATIVE REPORT Observed: 01/28/2018 Status: F Source: [place] 10:53 PM [facility] REPOSITORY [facility] Medical Records Department [address] [place] [address] Operative Report 01/23/18 1808 MR#: [id number] Acct: [id number] Name: SHARON BARRAGAN Rep #: [id number] : 1970 47 From: Junior Whitman MD PCP: Josué Price MD Status: DIS ANNIE Y Location: [place] [address] Report of Operation Date of Procedure: 01/23/18 Pre-Operative Diagnosis: 1. Right breast cancer. 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 4. Disproportion reconstructed breasts. 5. Late effect radiation right breast. 6. 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 7. Deformity reconstructed left breast with excess mastectomy skin scar contour deformity. 8. History of compromised TRAM flap right breast reconstruction with partial loss. 9. Estrogen receptor status negative. 10. Former smoker. Post-Operative Diagnosis: Same. Surgery/Procedure Performed:: 1. Revision right breast reconstruction with excision radiation scar contour deformity. 2. Revision left breast reconstruction with excision excess mastectomy skin scar contour deformity. 3. Delayed bilateral breast reconstruction with placement submuscular saline tissue expanders and placement FlexHD acellular dermal matrix graft (13 x 22 cm used for both breasts). Description of Surgical Findings:: 47 year old woman presents for further evaluation for breast reconstruction. Her initial bilateral mastectomy was on 01/12/16. She underwent IV chemotherapy initially and this was followed by radiation therapy to the right breast. She finished the radiation therapy in 10/03. She underwent a TRAM flap in 05/07. She developed a hematoma in the TRAM flap followed by some TRAM flap compromise. About 20% of the flap was salvaged after drainage of a postop hematoma and after debridement of some compromise to the TRAM flap. She underwent wound care with the VAC and then with Silver dressing changes along with antibiotics and HBO therapy to try and salvage the right breast reconstruction and chest wall in preparation for further breast reconstruction. After healing occurred, she presents today for further breast reconstruction. Patient was informed of the risks and complications of the procedure including alternatives to surgery. These were discussed with the patient personally. Patient voices understanding and wishes to proceed. Some of the risks and complications were included in a form from the [employer]. IV Fluids - 2000 ml. Urine Output - 600 ml. I used Goodrich CPX-4 with Suture Tabs, Tall Height, Breast Tissue Shoe Clerk, Textured Integral Dome, (550 ml on the right). Reference Number - [id number]. Lot Number - [id number]. Serial Number - [id number]. I used Goodrich CPX-4 with Suture Tabs, Tall Height, Breast Tissue Shoe Clerk, Textured Integral Dome, (550 ml on the left). Reference Number - [id number]. Lot Number - [id number]. Serial Number - [id number]. I used FlexHD acellular dermal matrix graft, Pliable Shaped, Perforated, Large, (13 x 22 cm used on both breasts). Item Number - [id number]. Serial Number - [id number]. Expiration - January 06, 2020. I used Geri absorbable hemostat, (I used 3 vials, one in the left breast and 2 in the right breast). Reference Number - [id number]. Lot Number - [id number]. Expiration - September 14, 2022. bindery machine feeder offbearer: Leigh Ann Brush. Type of Anesthesia:: General Specimen's removed: 1. Right breast tissue to Pathology and Microbiology. 2. Left breast tissue to Pathology. Drains: Amrit x4 (2 in each breast). Estimated Blood Loss (mL): 150 ml. Fluids Replaced: 2600 ml (2000 ml IV Fluids, and 600 ml Urine Output). Description of Procedure: Patient was seen in the preop area and was placed in the sitting position. Preop markings were made. I marked the sternal midline down towards the umbilicus. The midclavicular line was marked to the nipple and then from the nipple to the inframammary fold. The inframammary folds were marked bilaterally. She was taken to the OR, placed in supine position and placed under general anesthesia. Her breasts were prepped and draped in the usual fashion. SCD's were placed for DVT prophylaxis. Perioperative antibiotics were given intravenously. A Terrell catheter was placed. On the right breast, the reconstruction incision laterally was infiltrated with Xylocaine and epinephrine. On the left breast, I kourtney a horizontal ellipse inferiorly to encompass the excess mastectomy skin scar contour deformity and infiltrated the area with xylocaine and epinephrine. After waiting 5 minutes for the anesthetic to take effect, incision was made on the right down through the subcutaneous tissue until the chest wall was seen. There was a lot of dense firm radiation scar contracture deformity that was excised. There was some dense thickening on the undersurface of the latissimus flap that was excised. I freed up a breast pocket at the level of the chest wall superiorly to the clavicle and medially to the sternum and inferiorly to the inframammary fold and laterally to the anterior axillary line. I felt the radiation effects would only allow a small implant at this time. I think if there is some tissue expansion, the pocket would be better for placement of an implant that would give us the best aesthetic result. The breast pocket was irrigated with saline. Hemostasis was obtained with electrocautery. I placed two size 15 Amrit drains through separate stab incisions laterally and secured to the skin with 3-0 Nylon suture. The breast pocket was sprayed with Geri absorbable hemostat to minimize seroma formation. I used two vials of Geri. Tissue was that excised was sent to Pathology for analysis to rule out carcinoma and to Microbiology for culture. I placed a Goodrich CPX-4 tissue inside parts sales into the breast pocket. I used a 550 ml inside parts sales. I first removed the air from the inside parts sales. I injected 30 ml of saline. I squeezed the inside parts sales to look for any defects with the inside parts sales and found none. Most of the saline was then removed from the inside parts sales. After placing the inside parts sales into the pocket, I secured the suture tabs to the chest wall with 3-0 Vicryl suture. I secured two of the suture tabs. I then placed a piece of FlexHD acellular dermal matrix graft laterally to keep the inside parts sales from lateral migration. I secured the graft to the edge of the latissimus muscle with 3-0 Vicryl figure of eight interrupted sutures. I secured the graft to the chest wall with 3-0 Vicryl figure of eight interrupted sutures. I used a malleable over the inside parts sales to protect the inside parts sales during the suture closure. I then closed the incision in a layered fashion with 3-0 Monocryl interrupted sutures for the deep dermis and subcutaneous tissue. The skin was approximated with 4-0 V lock unidirectional barbed running subcuticular suture. This was followed by Histoacryl skin tissue adhesive. I then went to the left breast and excised the horizontal ellipse of excess mastectomy skin scar contour deformity down into the subcutaneous tissue down to the chest wall. I then created a submuscular pocket underneath the pectoralis major muscle. I dissected superiorly to the clavicle and medially to the sternum and laterally to the anterior axillary line. There was some dense scarring in the vicinity of the previous vertical scar that prevented ease in reshaping of the skin envelope. Therefore I made an incision through the vertical scar down to the muscle. There was dense scarring over the muscle indicative of radiation effects. There was probably some residual scatter of radiation damage from the right breast over to the left side. This could explain the densely adherence of the skin down to the muscle. After freeing up the skin off the muscle, it allowed better draping and contouring of the breast skin. This completed the Tzone mastopexy incision which will minimize the need to do the mastopexy at the time of implant placement. This excess mastectomy skin scar contour deformity was sent to Pathology for analysis to rule out carcinoma. I irrigated the wound with saline. Hemostasis was obtained with electrocautery. I placed two size 15 Amrit drains through separate stab incisions laterally and secured to the skin with 3-0 Nylon suture. The breast pocket was sprayed with Geri absorbable hemostat to minimize seroma formation. I then placed the same Goodrich CPX-4 tissue inside parts sales into the breast pocket. I used a 550 ml inside parts sales. I first removed the air from the inside parts sales. I injected 30 ml of saline. I squeezed the inside parts sales to look for any defects with the inside parts sales and found none. Most of the saline was then removed from the inside parts sales. After placing the inside parts sales into the pocket, I secured the suture tabs to the chest wall with 3-0 Vicryl suture. I secured two of the suture tabs. I then placed a piece of FlexHD acellular dermal matrix graft laterally to keep the inside parts sales from lateral migration. I secured the graft to the edge of the pectoralis muscle with 3-0 Vicryl figure of eight interrupted sutures. I secured the graft to the chest wall with 3-0 Vicryl figure of eight interrupted sutures. I used a malleable over the inside parts sales to protect the inside parts sales during the suture closure. I then closed the vertical and horizontal incision by first approximating the leading edge of the medial and lateral breast flaps to the midline of the horizontal incision with 2-0 Vicryl suture. I then closed these incisions in a layered fashion with 3-0 Monocryl interrupted sutures for the deep dermis and subcutaneous tissue. The horizontal incision was then closed with 3-0 V lock unidirectional barbed running subcuticular suture. The vertical incision was approximated with 4-0 Prolene simple interrupted sutures. This was then followed by Histoacryl skin tissue adhesive. Kerlix gauze was applied over the breast incisions followed by compression bruce wraps. Patient tolerated the procedure well and was sent to PACU in satisfactory condition. Patient will be sent upstairs for continued postop care. Will continue the Vancomycin perioperatively. Will also add Levaquin. She will go home on antibiotics until the drains are removed. She will keep her head elevated during the initial postop period and be on a lifting restriction. After saline expansion has been completed, will continue the breast reconstruction process with removal of the expanders with replacement cohesive gel implants. Grafts/Implants Used: Goodrich CPX-4 tissue expanders x2 and FlexHD acellular dermal matrix graft. - Complications None. - Admit VTE Documentation VTE Present on Admission: No VTE Mechan Device Prophylaxis: SCD's VTE Pharm Prophylaxis ordered?: Yes Code Visit Surgery Charges CPT - 82537 ICD-10 - C50.911, F40.298, Z90.13, N65.1, T66.xxxS, N65.0, Z17.1, Z87.891 86327-43 C50.911, F40.298, Z90.13, N65.1, T66.xxxS, N65.0, Z17.1, Z87.891 04662 C50.911, F40.298, Z90.13, N65.0, T66.xxxS, N65.1, Z17.1, Z87.891 89370-95 C50.911, F40.298, Z90.13, N65.0, T66.xxxS, N65.1, Z17.1, Z87.891 57456-34 C50.911, F40.298, Z90.13, N65.1, T66.xxxS, N65.0, Z17.1, Z87.891 01/28/18 0173 <Electronically signed by Junior Whitman MD> Date Junior Whitman MD CC: Bradly Good MD; Chris Juárez MD; Alessandro Martinez MD; Junior Whitman MD; Josué Price MD; [facility] Signed DISCHARGE INSTRUCTION Observed: 01/25/2018 Status: F Source: [place] 12:22 PM [facility] REPOSITORY [facility] Medical Records Department [address] [place] [id number] Instructions for Home/Discharge Instructions 01/25/18 1210 MR#: [id number] Acct: [id number] Name: SHARON BARRAGAN Rep #: [id number] : 1970 47 From: Junior Whitman MD PCP: Josué Price MD Status: ADM ANNIE You will use the following diet at home:: No restrictions Discharge Activity: May not drive while taking narcotic pain medications., May Not Shower - until the drains are removed., - - keep head elevated. no heavy lifting. May shower in (days): 14 - may shower after the drains are removed. May resume sexual activity in: 10-14 days Weight Bearing Status: Weight bearing as tolerated Lifting Restrictions: 20 lbs. Keep extremity elevated above heart level: - - elevate head. Call your doctor if your incision/area has: Continuous Slow Oozing, Sudden Increased Bleeding, Increased Pain/ Swelling, Increased Redness, Foul Smelling Discharge, Swelling at the incision site Call your doctor if you observe: Fever of 101 or Higher, Coldness, Increased Pain, Shortness of breath, Chest pain, Calf discomfort, Uncontrolled pain Suture Line Care: - - dry dressings daily. Cleanse incision/area with: - - may get incisions wet in the shower after the drains are removed. Drain: Suction - amrit drain x4 to bulb suction. empty and record output daily. Allergies/Adverse Reactions: Allergies cat dander Allergy (Severe, Verified 01/18/18 17:10) Lips AND throat swell FIBERGLASS Allergy (Severe, Uncoded 01/16/18 08:59) SEVERE ITCHING AND RASH POULTRY Allergy (Uncoded 01/16/18 08:59) Anaphylaxis Medications to take at Discharge Sertraline HCl [Zoloft] 150 mg PO DAILY@0600 09/12/17 traZODone [Desyrel] 50 mg PO QHS 09/12/17 Fluticasone 0.05% [Flonase Nasal [place]] 1 spray NASAL DAILY 01/16/18 Pregabalin [Lyrica] 150 mg PO BID 01/16/18 Acetaminophen [Tylenol Tablet] 650 mg PO Q6H PRN PRN tablet 01/25/18 Diazepam [Valium] 5 mg PO 4X/DAY PRN PRN #30 tab 01/25/18 Docusate Sodium [Colace] 100 mg PO BID capsule 01/25/18 Furosemide [Lasix] 20 mg PO DAILY #14 tab 01/25/18 Oxycodone HCl/Acetaminophen [Percocet 5-325] 1 - 2 tab PO 4X/DAY PRN PRN 7 Days #50 tab 01/25/18 fentaNYL patch [Duragesic patch] 25 mcg TRANSDERM. Q72H 15 Days #5 patch 01/25/18 levoFLOXacin tablet [Levaquin tablet] 500 mg PO DAILY #14 tab 01/25/18 proMETHazine tablet [Phenergan tablet] 25 mg PO 4X/DAY PRN PRN #30 tab 01/25/18 The following prescriptions were given: Diazepam [Valium] 5 mg PO 4X/DAY PRN PRN #30 tab PRN Reason: spasms fentaNYL patch [Duragesic patch] 25 mcg TRANSDERM. Q72H 15 Days #5 patch Furosemide [Lasix] 20 mg PO DAILY #14 tab levoFLOXacin tablet [Levaquin tablet] 500 mg PO DAILY #14 tab Oxycodone HCl/Acetaminophen [Percocet 5-325] 1 - 2 tab PO 4X/DAY PRN PRN 7 Days #50 tab PRN Reason: Pain proMETHazine tablet [Phenergan tablet] 25 mg PO 4X/DAY PRN PRN #30 tab PRN Reason: NAUSEA/VOMITING Orders to be completed after discharge: Basic Metabolic Profile (BMP) Time Frame: 1 Week, Facility: [facility], Location: Laboratory, [place] Primary Care Physician: Alessandro Martinez MD [STAFF PHYSICIAN] - Test Results: Test results from this visit will be discussed in further detail at your follow-up appointment, if applicable. Please Follow Up With: Junior Whitman MD When: one week. call [phone] for appt. Proposed Discharge Date: 01/25/18 01/25/18 1222 <Electronically signed by Junior Whitman MD> Date Junior Whitman MD CC: Bradly Good MD; Chris Juárez MD; Alessandro Martinez MD; Josué Price MD; [facility] BASIC METABOLIC Collected: 01/25/2018 Status: F Source: [place] PROFILE ([facility]) 5:00 AM [facility] REPOSITORY TYPE CODE TESTS RESULT OUT OF RANGE REFERENCE UNITS LAB L501.0100 74-106 mg/dL High GLU 115 Result Comment: Fasting Glucose result from 100 to 125 mg/dL suggests IMPAIRED HOMEOSTASIS per A.D.A. criteria. Please note revised GLUCOSE reference range effective 2017. LAB L501.1000 7-18 mg/dL Normal BUN 11 LAB L501.1100 0.55-1.02 mg/dL Normal CREAT,SERUM 0.76 Result Comment: The validity of the calculated GFR AND GFRAA in patients over 70 years has not been determined. Clinical correlation is essential. LAB L501.1110 >60 mL/min Normal EST GFR 86 Result Comment: Non- GFR Calc LAB L501.1115 >60 mL/min Normal EST GFR - AA 104 Result Comment: GFR Calc LAB L501.1255 ml/min Normal Estimated CRCL 117.04 LAB L501.1300 10-20 RATIO BUN/CRE Normal 14.5 LAB L501.2200 8.5-10 mg/dL Low .1 CA 8.1 LAB L501.5300 136-14 mmol/L Low 5 NA 135 LAB L501.5600 3.5-5. mmol/L 1 K Normal 3.7 LAB L501.5900 98-107 mmol/L CL Normal 101 LAB L501.6100 21.0-3 mmol/L 2.0 CO2 Normal 26.0 LAB L501.6200 5-15 GAP Normal 8 Performed By: #### L500.2500 #### [facility] Laboratory [address] [place], [address] HISTORY AND PHYSICAL Observed: 01/24/2018 Status: F Source: [place] EXAM 11:13 PM [facility] REPOSITORY [facility] Medical Records Department [address] [address] History and Physical 01/22/18 1736 MR#: [id number] Acct: [id number] Name: SHARON BARRAGAN Rep #: [id number] : 1970 47 From: Junior Whitman MD PCP: Josué Price MD Status: ADM ANNIE Y Location: [place] [address] History and Physical Date of Admission: 01/23/18 HISTORY OF PRESENT ILLNESS 47 year old woman presents for further evaluation for breast reconstruction. Her initial bilateral mastectomy was on 01/12/16. She underwent IV chemotherapy initially and this was followed by radiation therapy to the right breast. She finished the radiation therapy in 10/03. She underwent a TRAM flap in 05/07. She developed a hematoma in the TRAM flap followed by some TRAM flap compromise. About 20% of the flap was salvaged after drainage of a postop hematoma and after debridement of some compromise to the TRAM flap. She underwent wound care with the VAC and then with Silver dressing changes along with antibiotics and HBO therapy to try and salvage the right breast reconstruction and chest wall in preparation for further breast reconstruction. She presents today for further evaluation and treatment. 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 late effect radiation right breast reconstruction. 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 compromised TRAM flap right breast reconstruction with partial loss. hematoma right breast reconstruction and chest wall. PAST SURGICAL HISTORY Thyroidectomy, subtotal Tubal ligation Hysterectomy with bilateral salpingectomy and left oophorectomy - 10/02 prophylactic mastectomy left breast by Dr. Whitman - 01/12/16 mastectomy right breast and bilateral sentinel node biopsies by Dr. Juárez - 01/12/16 port placement - 02/02 Delayed right breast reconstruction with unipedicle contralateral TRAM flap and abdominal wall reconstruction with placement of Strattice acellular dermal matrix graft (100 cm2) and revision radiation scar contour deformity right breast with multiple W-plasties (40 cm2) - 05/02/17 Surgical preparation right breast TRAM flap reconstruction with incision and drainage and evacuation hematoma - 05/05/17 Surgical preparation right breast reconstruction with excisional debridement compromised TRAM flap (256 cm2) - 05/23/17 Revision right breast reconstruction with excision nonhealing radiation ulcer scar contour deformity and lateral rotation TRAM flap and delayed right breast reconstruction with placement of latissimus dorsi myocutaneous flap - 09/19/17 MEDICATIONS Zoloft. Valium. Mobic. Trazodone. Norvasc. Calcium Carbonate. ALLERGIES Poultry. FAMILY HISTORY negative for breast cancer. SOCIAL HISTORY Patient is a former smoker. Passive smoke exposure - no Alcohol Use - no Regular Exercise - yes Passive smoke exposure - yes REVIEW OF SYSTEMS General - Denies fever and fatigue. History of weight loss. Eyes - Denies eye pain. ENT - Denies nasal congestion and sore throat. CV - Denies chest pain or discomfort, fatigue, lightheadedness and shortness of breath with exertion. Resp - Denies cough and shortness of breath. Patient is a former smoker. GI - Denies nausea, vomiting, diarrhea and constipation. - Denies blood in urine and urinary frequency. MS - Complains of back pain. Denies joint pain, stiffness, muscle weakness and arthritis. Derm - Denies suspicious lesions and skin cancer. Has mastectomy scars and flap scars bilaterally in stages of breast reconstruction. Neuro - Denies poor balance and headaches. Psych - Complains of anxiety. Denies depression. Endo - Denies excessive urination and excessive thirst. Has thyroid disease. Has history of right breast cancer. Heme - Denies bleeding and abnormal bruising. PHYSICAL EXAMINATION General: well developed, well nourished, in no acute distress. Her bra size was 36 C prior to her breast cancer. Head: normocephalic and atraumatic. Eyes: PERRL. EOMI. Neck: no masses, thyromegaly, or abnormal cervical nodes. Breasts: Mastectomy vertical incision on the left breast is healed. There is an area of skin dimpling down to and adherent to the muscle. No breast masses palpated. There is some excess mastectomy skin scar contour deformity on the left breast mostly inferiorly and superiorly with some laterally. On the right breast there is a soft healed latissimus dorsi myocutaneous flap. There is surrounding radiation scarring at the skin edges with firmness from radiation effects. Some mild discoloration at the skin edges.. There is the remnant of her TRAM flap inferior and medially, about 20%. That flap is soft. No axillary adenopathy. Breast diameter is 12 cm bilaterally. The left breast IMF is elevated about 1.5 cm. On the right breast laterally is some radiation scarring. The IMF laterally on the right is more elevated than the medial aspect of the right breast where the remaining TRAM flap is located. The radiation scarring will act as a frame of reference for the IMF. Will need to elevate the TRAM flap in the future as a medial crease. So will lower the IMF on the left to match the radiation scarring on the right laterally. Lungs: clear bilaterally to auscultation. Heart: regular rate and rhythm. Abdomen: normal bowel sounds; no hepatosplenomegaly no ventral,umbilical hernias or masses noted. There is healed TRAM flap scar in lower anterior abdominal wall. Had some residual seroma postop that required an ultrasound guided drainage. Pulses: pulses normal in all 4 extremities. Extremities: no clubbing, cyanosis, edema, or deformity noted with normal full range of motion of all joints. Neurologic: cranial nerves II-XII grossly intact. Skin: no rashes. The back wound has healed. Cervical Nodes: no significant adenopathy. Axillary Nodes: no significant adenopathy. Inguinal Nodes: no significant adenopathy. Psych: alert and cooperative; normal mood and affect; normal attention span and concentration. ASSESSMENT 1. Right breast cancer. 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 4. Disproportion reconstructed breasts. 5. Late effect radiation right breast. 6. 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 7. Deformity reconstructed left breast with excess mastectomy skin scar contour deformity. 8. History of compromised TRAM flap right breast reconstruction with partial loss. 9. Estrogen receptor status negative. 10. Former smoker. PLAN She presents today for the next stage in her breast reconstruction process which is creation of the breast pockets bilaterally and if adequate pockets are noted, then proceed with placement of cohesive gel implants. I may need to revise the right breast reconstruction with excision painful radiation soft tissue necrosis scar contour deformity. I may need to revise the left breast reconstruction with excision excess mastectomy skin scar contour deformity. The left breast IMF is elevated about 1.5 cm. On the right breast laterally is some radiation scarring. The IMF laterally on the right is more elevated than the medial aspect of the right breast where the remaining TRAM flap is located. The radiation scarring will act as a frame of reference for the IMF. Will need to elevate the TRAM flap in the future as a medial crease. So will lower the IMF on the left to match the radiation scarring on the right laterally. The goal is implant placement bilaterally with the right breast needing a larger implant. If the breast pocket on the right is not that great with limitations secondary to her previous radiation therapy, I will place a saline tissue inside parts sales to try and loosen the breast pocket a little before taking her back to surgery for the replacement cohesive gel implant. She is aware of that possibility and wishes to proceed. I should be able to revise the left breast and place an implant since no radiation was done. At the time of the removal of the inside parts sales on the right, I may have to adjust the implant on the left either higher or lower depending on the final size of the implant on the right. When I'm developing the breast pocket on the left, if I feel it is a little tighter than I would like and I've already decided to place an inside parts sales on the right, then I may also proceed with an inside parts sales on the left as well. I anticipate a radiation scar contracture contour deformity that will necessitate multiple W-plasty reconstruction to maximize the contour of the right breast and minimize some of the radiation scar contracture forces. I will probably wait on this revision procedure after the implants have been placed and are healed. Surgery will be done under general anesthesia with a surgical observation overnight stay in the hospital. She will have drains in for several days and be maintained on antibiotics until the drains are removed. She will keep her head elevated during the initial postop period. She finished HBO therapy for her soft tissue radionecrosis preop. Also in the postop period, she may resume HBO treatments to maximize healing from the soft tissue radionecrosis from her radiation therapy. At the time of surgery, will treat perioperatively with Vancomycin and Levaquin. At surgery, would send tissue cultures as well as to send tissue to Pathology for analysis to rule out carcinoma. A positive culture may necessitate antibiotic modification. The patient was informed of the risks and complications of the procedure including alternatives to surgery. These were discussed with the patient personally. The patient voices understanding and wishes to proceed. Some of the risks and complications were included in a form from the [employer]. Encouraged the patient to stop smoking as it may have deleterious effects on wound healing. She states she has stopped smoking after her breast cancer diagnosis. 01/24/18 2313 <Electronically signed by Junior Whitman MD> Date Junior Whitman MD Cosigner Signature: Date (if applicable) CC: Chris Juárez MD; Junior Whitman MD; Josué Price MD; [facility] Signed VANCOMYCIN, TROUGH Collected: 01/24/2018 Status: F Source: [place] L[place] 6:42 PM [facility] REPOSITORY Order Comment: Comments: DRAW TROUGH 30 MIN PRIOR TO DOSE AT 19:00 Time Medication is to be Given? 1900 TYPE CODE TESTS RESULT OUT OF REFERENCE UNITS RANGE LAB L501.8820 5.0-15.0 ug/mL High VANCO, TROUGH 16.2 Result Comment: VANCOMYCIN STANDARED DRUG THERAPY TROUGH LEVEL: 5.0 - 15.0 mg/L VANCOMYCIN HIGH INTENSITY THERAPY TROUGH LEVEL: 15.0 - 20.0 mg/L High Intensity therapy recommended for serious life threatening infections include: - Meningitis -Endocarditis -Pneumonia (Ventilator/Healtcare Associated) -Sepsis PLEASE CONTACT PHARMACY SERVICES (#[phone]) FOR INTERPRETATION OF RESULTS. Performed By: #### L501.8820 #### [facility] [place], [address] CBC-COMPLETE BLOOD CNT Collected: 01/24/2018 Status: F Source: [place] NO DIFF 5:30 AM [facility] REPOSITORY TYPE CODE TESTS RESULT OUT OF RANGE REFERENCE UNITS LAB L100.1000 4.4-11.0 K/mm3 Normal WBC 7.0 LAB L100.1200 4.2-5.4 M/mm3 Normal RBC 4.23 LAB L100.1300 12.0-15.0 g/dl Low HGB 11.5 LAB L100.1400 37-47 % Low HCT 34.6 LAB L100.1500 81-99 fL Normal MCV 81.8 LAB L100.1600 27.0-32.0 pg Normal MCH 27.2 LAB L100.1700 32-36 g/gl Normal MCHC 33.2 LAB L100.1810 11.6-14.6 % High RDW CV 16.4 LAB L100.1820 35.1-43.9 fl High RDW SD 48.4 LAB L100.1900 150-450 K/mm3 Normal PLT 207 LAB L100.2000 6.2-12.0 fl Normal MPV 9.8 Performed By: #### L100.0500 #### [facility] [place], [address] BASIC METABOLIC Collected: 01/24/2018 Status: F Source: [place] PROFILE (BMP) 5:30 AM [facility] REPOSITORY TYPE CODE TESTS RESULT OUT OF RANGE REFERENCE UNITS LAB L501.0100 74-106 mg/dL High GLU 112 Result Comment: Fasting Glucose result from 100 to 125 mg/dL suggests IMPAIRED HOMEOSTASIS per A.D.A. criteria. Please note revised GLUCOSE reference range effective 2017. LAB L501.1000 7-18 mg/dL High BUN 19 LAB L501.1100 0.55-1.02 mg/dL Normal CREAT,SERUM 0.98 Result Comment: The validity of the calculated GFR AND GFRAA in patients over 70 years has not been determined. Clinical correlation is essential. LAB L501.1110 >60 mL/min Normal EST GFR 64 Result Comment: Non- GFR Calc LAB L501.1115 >60 mL/min Normal EST GFR - AA 78 Result Comment: GFR Calc LAB L501.1255 ml/min Normal Estimated CRCL 90.77 LAB L501.1300 10-20 RATIO Normal BUN/CRE 19.4 LAB L501.2200 8.5-10 mg/dL Low .1 CA 8.3 LAB L501.5300 136-14 mmol/L Normal 5 NA 136 LAB L501.5600 3.5-5. mmol/L Normal 1 K 4.3 LAB L501.5900 98-107 mmol/L Normal CL 104 LAB L501.6100 21.0-3 mmol/L Normal 2.0 CO2 22.0 LAB L501.6200 5-15 Normal GAP 10 Performed By: #### L500.2500, L506.0500 #### [facility] Laboratory [address] [place], [address] PREALBUMIN Collected: 01/24/2018 Status: F Source: [place] 5:30 AM [facility] REPOSITORY TYPE CODE TESTS RESULT OUT OF RANGE REFERENCE UNITS LAB L506.0500 20.0-40.0 mg/dL Normal PREALBUMIN 22.0 Performed By: #### L500.2500, L506.0500 #### [facility] [address] [place], [address] BASIC METABOLIC Collected: 01/23/2018 Status: F Source: [place] PROFILE (BMP) 4:52 PM [facility] REPOSITORY Order Comment: Has pt arrived? Y TYPE CODE TESTS RESULT OUT OF RANGE REFERENCE UNITS LAB L501.0100 74-106 mg/dL High GLU 130 Result Comment: Fasting Glucose result greater than or equal to 126 mg/dL suggests DIABETES MELLITUS per A.D.A. criteria. Please note revised GLUCOSE reference range effective 2017. LAB L501.1000 7-18 mg/dL Normal BUN 15 LAB L501.1100 0.55-1.02 mg/dL Normal CREAT,SERUM 0.97 Result Comment: The validity of the calculated GFR AND GFRAA in patients over 70 years has not been determined. Clinical correlation is essential. LAB L501.1110 >60 mL/min Normal EST GFR 65 Result Comment: Non- GFR Calc LAB L501.1115 >60 mL/min Normal EST GFR - AA 78 Result Comment: GFR Calc LAB L501.1255 ml/min Normal Estimated CRCL 91.70 LAB L501.1300 10-20 RATIO Normal BUN/CRE 15.4 LAB L501.2200 8.5-10 mg/dL Normal .1 CA 8.7 LAB L501.5300 136-14 mmol/L Normal 5 NA 140 LAB L501.5600 3.5-5. mmol/L Normal 1 K 4.4 LAB L501.5900 98-107 mmol/L High CL 110 LAB L501.6100 21.0-3 mmol/L Normal 2.0 CO2 23.0 LAB L501.6200 5-15 Normal GAP 7 Performed By: #### L500.2500 #### [facility] [address] [facility] [place], [address] Observed: 01/23/2018 Status: F Source: [place] CULTURE, DEEP WOUND 2:00 PM [facility] REPOSITORY Order Date: 10/19/16 Comments: Collected in OR, Right Breast Tissue Gram Stain Gram Stain No organisms seen No cells seen Wound Culture No growth aerobically. Cult, Anaerobic No growth in 5 days. Performed By: #### M100.1500 #### [facility] [address] [facility] [place], [address] Observed: 01/23/2018 Status: F Source: [place] CULTURE, FUNGUS W/ 2:00 PM [facility] [id number] REPOSITORY Comments: Collected in OR, Right Breast Tissue Is this test to exclude patient from TB Isolation? N Cu,[id number] TESTING PERFORMED AT [facility]. ORIGINAL REPORT ON FILE IN LAB CONTAINS ADDITIONAL TEST SITE INFORMATION. CUF No yeast or mold isolated after [address] [facility] ORIGINAL REPORT ON FILE IN LAB CONTAINS ADDITIONAL TEST SITE INFORMATION. Fungus Stain No yeast or mold observed. Performed By: #### M600.1900 #### [facility] [address] [facility] [place], [address] LIPID PROFILE Collected: 01/23/2018 Status: F Source: [place] 10:00 AM [facility] REPOSITORY TYPE CODE TESTS RESULT OUT OF RANGE REFERENCE UNITS LAB L501.4900 200 mg/dL High CHOL 241 Result Comment: <200 mg/dL Desirable 200-240 mg/dL Borderline >240 mg/dL High Risk LAB L501.5000 mg/dL Normal TRIG 127 Result Comment: The drugs N-Acetylcysteine and Metamizole may falsely depress this assay. Serum Triglycerides Reference Interval Normal <150 mg/dL Borderline high 150 - 199 mg/dL High 200 - 499 mg/dL Very High > or = 500 mg/dL LAB L501.6400 mg/dL Normal HDL 46 Result Comment: The drugs N-Acetylcysteine and Metamizole may falsely depress this assay. Reference Range HDL <40 mg/dL Low HDL Cholesterol HDL >or= 60 mg/dL High HDL Cholesterol LAB L501.6500 0-130 mg/dL High LDL 170 LAB L501.6600 5-40 mg/dL Normal VLDL 25 Performed By: #### L500.4100 #### [facility] [address] [place], [address] BREAST MASTECTOMY Observed: 01/23/2018 Status: F Source: [place] (CHOOSE SIDE 9:25 AM [facility] REPOSITORY Patient: SHARON BARRAGAN : 1970 (47/F) Acct Num: [id number] Phys: Junior Whitman MD Unit Num: [id number] Loc: MS2 SY510-4 Specimen: [id number] Received: 01/24/18832 Spec Type: BREAST TISSUES 1 TISSUES: A. Left breast, NOS B. Right breast, NOS COMMENT A AND B. Breast tissue is not identified in the sections examined. GROSS DESCRIPTION A - Received in fixative is one container labeled with the patient's name and designated left breast tissue. The specimen consists of five variable sized pieces of yellow fibroadipose tissue with a few of the pieces showing a skin piece measuring in aggregate 10 x 9 x 4 cm. The skin surface is unremarkable. Sections do not reveal any mass lesion. [employer] sections are submitted in four cassettes. B - Received in fixative is one container labeled with the patient's name and designated right breast tissue. The specimen consists of five variable sized pieces of clark, indurated tissue measuring in aggregate 5 x 3.5 x 1 cm. All pieces are bisected. The entire specimen is submitted in six cassettes. / JOHNIE: sharon 01/24/18 TC:5 CPT: 03617 x2 HEADER OPERATION: Revision right breast reconstruction with excision radiation PRE-OP DIAGNOSIS: Right breast cancer; cancerphobia left breast; acquired absence bilateral breasts; disproportion reconstructed breasts; late effect radiation right breast; deformity reconstructed right breast with painful radiation scar contracture; history of compromised TRAM flap right breast reconstruction with partial loss; ER status negative; TISSUE SUBMITTED: A - Left breast tissue, B - Right breast tissue MICROSCOPIC DESCRIPTION Slides are reviewed. MICROSCOPIC DIAGNOSIS A. Left breast tissue, reconstruction: Pieces of skin with underlying adipose tissue and dense fibroconnective tissue. See comment. B. Right breast tissue, reconstruction: Pieces of dense fibroconnective tissue and fibroadipose tissue with chronic inflammation and foreign body giant cell reaction. See comment. JOHNIE:sharon 01/25/18 Signed Ayan Jamison 01/25/18 <signature on file> Performed By: #### [facility] #### [facility] [address] [place], [address] INTERNAL MEDICINE Observed: 01/22/2018 Status: F Source: [facility] OFFICE VISIT 1:05 PM [facility] REPOSITORY [facility] [address] [place] [address] [address] [place] [address] OFFICE VISIT Date of Service: 01/18/18 MR#: [id number] Acct: [id number] Name: SHARON BARRAGAN Rep #: [id number] : 1970 Provider: Alessandro Martinez MD Age/Sex: 47/F Location: [facility] [place] Status: Signed Intake Vital Signs01/18/18 Height 5 ft 1 in 01/18/18 Weight: 180 lb 01/18/18 Body Mass Index (BMI) 34.0 01/18/18 Blood Pressure 124/83 H 01/18/18 Blood Pressure Location Lt brachial Intake Visit Reasons: EST CARE Chief Complaint: Est Care Is patient in pain?: No Allergies cat dander Allergy (Severe, Verified 01/18/18 17:10) Lips AND throat swell FIBERGLASS Allergy (Severe, Uncoded 01/16/18 08:59) SEVERE ITCHING AND RASH POULTRY Allergy (Uncoded 01/16/18 08:59) Anaphylaxis Medications Sertraline HCl [Zoloft] 150 mg PO DAILY@0600 09/12/17 [History Confirmed 01/18/18] traZODone [Desyrel] 50 mg PO QHS 09/12/17 [History Confirmed 01/18/18] Fluticasone 0.05% [Flonase Nasal [place]] 1 spray NASAL DAILY 01/16/18 [History Confirmed 01/18/18] Oxycodone HCl/Acetaminophen [Percocet 5/325] 1 - 2 tab PO Q4H PRN PRN 01/16/18 [History Confirmed 01/18/18] Pregabalin [Lyrica] 150 mg PO BID 01/16/18 [History Confirmed 01/18/18] diazepam 5 mg tablet 5 mg PO BID PRN #14 tab 01/17/18 [Rx Confirmed 01/18/18] PFSH Medical History Carpal tunnel syndrome (Chronic) Seasonal allergies (Acute) Back pain (Acute) BONE FRACTURES - BROKEN RIGHT ARM (Acute) Breast lump in female (Acute) Breast cancer in female (Acute) History of emotional problems (Acute) Goiter (Chronic) Thyroid disease (Acute) Fibroids (Acute) Cancer phobia (Acute) 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) Disproportion of reconstructed breast (Acute) 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) Partial loss of skin graft (Acute) Late effect of radiation (Chronic) Breast cancer, right breast (Acute) Surgical History HYSTERCTOMY WITH BILATERAL SALPINGECTOMY (Acute) History of prophylactic mastectomy of left breast (Acute) History of thyroidectomy (Acute) History of tubal ligation (Acute) MASTECTOMY RIGHT BREAST AND BILATERAL SENTINEL NODE BIOPSIES (Acute) PORT PLACEMENT 02/02 (Acute) Status post transverse rectus abdominis muscle (TRAM) flap breast reconstruction (Acute) Family History Unknown No problems noted. Mother Anemia Anxiety Arthritis Breast cancer Depression Osteoporosis Father Anxiety Depression Mental disorder Parkinson disease Respiratory complication Social History Smoking Status: Former smoker second hand exposure: No alcohol intake: current alcohol intake frequency: a few times a week Alcohol type: other substance use type: does not use what type of physical activity do you participate in: other frequency: daily seatbelt use: always do you feel safe at home: Yes additional social history: SUN EXPOSURE: OCCASIONALLY HPI HPI Chief Complaint: Est Care Details: SHARON BARRAGAN, is a 47yo F who presents to the office today to establish care. She has past medical history as stated above. She is most concerned about her bilateral carpal tunnel syndrome. Diagnosed a while ago. Appears to have worsened with chemotherapy. She is concerned about her functioning when she goes back to work. Currently on Lyrica which helps somewhat with the pain. She is status post chemo and radiotherapy with several reconstructive surgeries. She has another scheduled for 25 January. ROS Const Constitutional: No chills, fatigue, fever(s), frequent falls, malaise, weakness, sleep problems or change in appetite Eyes Eyes: No blurry vision, change in vision, double vision, discharge or visual disturbances ENT ENT: No abnormal hearing, ear pain, ear pressure, tinnitus or dizziness/vertigo Resp Respiratory: No cough, shortness of breath or wheezing Cardio Cardiology: No chest pain at rest, chest pain with exertion, shortness of breath, dyspnea on exertion, generalized swelling, irregular heart rhythm, lightheadedness, orthopnea, fast heart rate or palpitations Gastro GI: Positive for change in bowel habits; no abdominal pain, constipation, diarrhea, nausea/dyspepsia or vomiting Genitourinary-Female: No difficulty urinating, burning urination, painful urination, urinary incontinence, urinary frequency, urinary urgency, urinary hesitancy, urinary retention, Frequent nighttime urination/ nocturia, sexual problems, genital lesions, abnormal vaginal bleeding, pelvic pain, vaginal dryness, vaginal odor or Vaginal Itching Musc Musculoskeletal: Positive for numbness and tingling; no joint pain, back pain, joint swelling, limited range of motion or muscle weakness Skin Skin: No change in skin color, itching, rash or wounds Breast Breast: No breast lump or breast pain Neuro Neurology: Positive for numbness and tingling; no frequent falls, weakness, abnormal hearing, unsteady gait/balance, dizziness, loss of vision, memory loss or visual disturbances Psych Psychiatric: No memory loss, Positive for anxiety, No change in appetite, Positive for depression, No Thoughts of harming yourself/Others Endo Endocrine: No fatigue, heat intolerance, increased thirst/drinking, increased hunger or increased urination Aller/Imm Allergy/Immunologic: No wheezing, itchy eyes or seasonal allergy symptoms Freddy/Lymp Hematologic/Lymphatic: No easy bleeding, easy bruising or enlarged lymph nodes Exam Const General: cooperative, no acute distress Orientation: alert, awake, oriented x3 [facility] Head: atraumatic, normocephalic, normal to inspection Ears: hearing grossly normal bilaterally Neck Neck: normal visual inspection, full ROM, no lymphadenopathy Neck mass: No Resp Effort AND Inspection: normal respiratory effort, able to speak in complete sentences Auscultation: Bilateral: Clear to Auscultation Cardio Rate: regular rate Rhythm: regular rhythm Heart Sounds: S1 normal, S2 normal GI Palpation: soft, no hepatosplenomegaly Musc Musculoskeletal: No muscle weakness Neuro General: alert, awake, oriented x3, CN's II-XI intact bilaterally, moves all extremities Extrem General: no clubbing, cyanosis or edema Psych Appearance: grossly normal Mental Status: mental status grossly normal Mood: congruent mood Affect: normal affect Assessment AND Plan 1. Carpal tunnel syndrome G56.00 Plan Chronic. Symptoms worsened during chemotherapy. Currently on Lyrica with test benefit. Wrist brace recommended. Also referred to Ortho. Orders Referrals: 2. Depression with anxiety F41.8 Plan Stable. Currently on Zoloft. Continue current management. 3. Breast cancer, right breast C50.911 C50.911 Plan Triple negative. Status post mastectomy, chemo and radiotherapy. Patient is doing well. Scheduled for another reconstructive surgery on Monday. Orders Orders: 4. Goiter E04.9 Plan Status post partial thyroidectomy. No concerns for hypothyroidism at this time. Will monitor. This note was generated with Pairination software. It may contain incorrect words, spelling, and punctuation that were not noted in checking the note before signing. Plan Detail Other Orders Orders: Coding Level of Care Code Off vis,est,level 4 Diagnoses Carpal tunnel syndrome G56.00 Depression with anxiety F41.8 Breast cancer, right breast C50.911 Breast location: unspecified site of breast Patient gender: female Goiter E04.9 01/22/18 1305 <Electronically signed by Alessandro Martinez MD> Date Alessandro Martinez MD Cosigner Signature: Date (if applicable) CC: 12 LEAD ELECTROCARDIOGRAM Observed: 01/18/2018 Status: F Source: [place] 3:43 PM [facility] REPOSITORY [facility] [address] [place] [id number] 12 Lead EKG 01/16/18 1416 MR#: [id number] Acct: [id number] Name: SHARON BARRAGAN Rep #: [id number] : 1970 47 From: Iron Ryan MD Attending Dr: Junior Whitman MD [place] [facility] [place]: Junior Whitman MD Date: 01/16/18 [place] [facility] [place] F C Admitted: Test Reason : PRE-OP Blood Pressure : / mmHG Vent. Rate : 074 BPM Atrial Rate : 074 BPM P-R Int : 152 ms QRS Dur : 072 ms QT Int : 364 ms P-R-T Axes : 020 001 035 degrees QTc Int : 404 ms Normal sinus rhythm Normal ECG Confirmed by IRON RYAN MD ([id number]), editor sound DOMENICA BURNHAM ([id number]) on 01/18/2018 3:42:48 PM Referred By: Junior Whitman Confirmed By:IRON RYAN MD 01/18/18 1542 Date Iron Ryan MD CC: Junior Whitman MD; Josué Price MD Signed PLASTIC SURGERY Observed: 12/28/2017 Status: F Source: [place] VISIT REPORT 3:56 PM [facility] REPOSITORY [facility] [address] [place] [address] OFFICE VISIT Date of Service: 12/21/17 MR#: [id number] Acct: [id number] Name: SHARON BARRAGAN Rep #: [id number] : 1970 Provider: Junior Whitman MD Age/Sex: 47/F Location: [facility] [place] Status: Signed Intake Vital Signs12/21/17 Height 5 ft 1 in 12/21/17 Weight: 180 lb 4 oz 12/21/17 Body Mass Index (BMI) 34.0 12/21/17 Respiratory Rate 16 Intake Visit Reasons: post op surgery, 09/19/17 Lifeguard Required: No Accompanied by: Mother Is patient in pain?: No Allergies FIBERGLASS Allergy (Severe, Uncoded 12/21/17 13:35) SEVERE ITCHING AND RASH POULTRY Allergy (Uncoded 12/21/17 13:35) Anaphylaxis Medications Sertraline HCl [Zoloft] 150 mg PO DAILY@0600 09/12/17 [History Confirmed 12/14/17] traZODone [Desyrel] 50 mg PO QHS 09/12/17 [History Confirmed 12/14/17] Iron Polysaccharide Complex [Ferrex 150] 150 mg PO DAILYCM #30 cap 09/25/17 [Rx Confirmed 12/14/17] Gabapentin [Neurontin] 600 mg PO TID 12/14/17 [History Confirmed 12/14/17] Loratadine [Claritin] 10 mg PO DAILY 12/14/17 [History Confirmed 12/14/17] oxycodone-acetaminophen 5 mg-325 mg tablet 1 tab PO TID PRN #20 tab 12/21/17 [Rx Confirmed 12/21/17] PFSH Medical History 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) Partial loss of skin graft (Acute) Late effect of radiation (Chronic) Breast cancer, right breast (Acute) 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) BONE FRACTURES - BROKEN RIGHT ARM (Acute) Back pain (Acute) Breast cancer in female (Acute) Breast lump in female (Acute) 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 Social History Smoking Status: Former smoker second hand exposure: No alcohol intake: current alcohol intake frequency: a few times a week Alcohol type: other substance use type: does not use what type of physical activity do you participate in: other frequency: daily seatbelt use: always do you feel safe at home: Yes additional social history: SUN EXPOSURE: OCCASIONALLY HPI post op surgery, 09/19/17: Details: Postop visit from her recent surgery on 09/19/17 where she underwent revision right breast reconstruction with excision nonhealing radiation ulcer scar contour deformity and lateral rotation TRAM flap and delayed right breast reconstruction with placement of latissimus dorsi myocutaneous flap. She was discharged from the hospital on 09/25/17. Comes in today with much less pain in her back wound. It is getting more tolerable as it heals. On exam, the latissimus flap is soft and healing well. It has improved with the HBO treatments. There is no evidence of infection. On the distal tip of the flap in the inferomedial aspect of the breast adjacent to the TRAM flap was a dry eschar that has been removed. Good healed scar is sen underneath. The remaining TRAM flap is also healed. The left breast INF is elevated about 1.5 cm. On the right breast laterally is some radiation scarring. The IMF laterally on the right is more elevated than the medial aspect of the right breast where the remaining TRAM flap is located. The radiation scarring will act as a frame of reference for the IMF. Will need to elevate the TRAM flap in the future as a medial crease. So will lower the IMF on the left to match the radiation scarring on the right laterally. Will revise the excess mastectomy skin scar contour deformity on the left. The goal is implant placement bilaterally with the right breast needing a larger implant. Will also revise the right breast reconstruction with excision of soft tissue radionecrosis scar contour deformity. The back wound looks great. Dimensions are much smaller and more superficial. Good granulation tissue is seen. Wound measures 4 x 1 cm. Using a #3 curette I sharply debrided the back wound down into the subcutaneous tissue as an excisional debridement. Good bleeding was seen. Easily controlled with gentle pressure. A Silver dressing was applied today. Continue the chest wall compression BRUCE wrap. Will continue HBO treatments until her next breast reconstruction surgery later this month. Tentative plan for continued breast reconstruction surgery later this month. Will revise reconstructed breasts bilaterally with excision of excess mastectomy skin scar contour deformity on the left and excision soft tissue radionecrosis scar contour deformity on the right and revise the asymmetric inframammary folds and place acellular dermal matrix graft slings inferolaterally to help shape and contour the breast reconstruction. Will then place cohesive gel implants with the right breast reconstruction probably having a slightly larger breast implant. It is hard to predict the quality of the breast pocket on the right. I'm hoping I can place a small cohesive gel implant. The size of the right breast reconstruction will determine the size of the cohesive gel implant on the left. However, I discussed with the patient that if the breast pocket on the right is suboptimal, and if I don't think symmetry with implants would work at this time, I will place a saline tissue inside parts sales to increase the size of the pocket for subsequent cohesive gel implant. I doubt I would need an inside parts sales on the left. Once I revise the skin envelope on the left, I will place an implant there. Depending on the expansion process on the right, I will be prepared to revise the implant on the left with either a smaller one or a larger one at the time of the removal of the inside parts sales on the right with replacement cohesive gel implant. Surgery will be under general anesthesia with a surgical observation overnight stay in the hospital. She will have drains in for several days and be maintained on antibiotics until the drains are removed. Patient was informed of the risks and complications of the procedure including alternatives to surgery. These were discussed with the patient personally. Patient voices understanding and wishes to proceed. Some of the risks and complications were included in a form from the [employer]. Renewed her Percocet for pain (20 tabs). Assessment AND Plan Problems 1. 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 Late effect of radiation T66.XXXS 6. 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 Partial loss of skin graft T86.828 8. 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 Estrogen receptor negative status [ER-] Z17.1 10. 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 Estrogen receptor negative status [ER-] Z17.1 Former cigarette smoker Z87.891 12/24/17 1555 <Electronically signed by Junior Whitman MD> Date Junior Whitman MD 12/28/17 1556<Electronically signed by Della BALDERAS> Cosigner Signature: Date (if applicable) Della Dale CRAB PICKER-C CC: DISCHARGE INSTRUCTION Observed: 12/14/2017 Status: F Source: [facility] 8:26 PM [facility] REPOSITORY [facility] Medical Records Department [address] [place] [address] Discharge Instruction 12/14/172024 MR#: [id number] Acct: [id number] Name: SHARON BARRAGAN Rep #: [id number] : 1970 47 From: Tony Ramirez DO PCP: Josué Price MD Status: REG ER ED Disposition - Plan for ED Patient: Chief Complaint: Foreign Body Instructions: ED Foreign Body Esophageal Rslv Referrals: Josué Price MD [Primary Care Provider] - Venkatesh Isaacs MD [STAFF PHYSICIAN] - As Needed What to do if you have Problems For any increased pain, shortness of breath, bleeding, nausea or vomiting, chest pain, or any unexpected problems, contact your Primary Care Provider. Call [facility] ([phone]) or report to the closest Emergency Room. Call 911 if necessary. 12/14/172025 <Electronically signed by Tony Ramirez DO> Date Tony Ramirez DO Cosigner Signature (If Indicated): Date CC: Josué Price MD EMERGENCY DEPARTMENT Observed: 12/14/2017 Status: F Source: [place] SUMMARY 8:25 PM [facility] REPOSITORY [facility] Medical Records Department [address] [place] [address] Emergency Department Summary 12/14/172022 MR#: [id number] Acct: [id number] Name: SHARON BARARGAN Rep #: [id number] : 1970 47 From: Tony Ramirez DO PCP: Josué Price MD Status: REG ER - ER Visit Summary Date of Service: 12/14/17 Chief Complaint: [Esophageal meat impaction] History of Present Illness: The patient is a 47 F [presents to the emergency department with complaint of not being able to swallow. Patient states that she was eating pork chops and speaking with a friend when she felt like a piece got stuck. Patient was subsequently unable to eat or drink and she could not swallow her own spit. Patient describes some mild discomfort in her upper chest. Patient states that on arrival the emergency department she actually feels a little bit improved compared to what she felt initially. Patient is never had this happen before. She denies any shortness of breath.] Physical Examination: [HEENT-PERRLA, EOMI. Cranial nerves II through XII grossly intact. TMs clear. Mucous membranes moist. No adenopathy. Cardiovascular-regular rate and rhythm without murmur or ectopy Lungs-clear to auscultation, chest wall stable without crepitus or subcu emphysema Abdomen-normoactive bowel sounds, soft, nontender, no rebound or rigidity, no peritoneal signs. Extremities-intact 4, normal range of motion, normal pulses, atraumatic] Test Results: [None indicated] Emergency Department Course and Treatment: [Patient was given a carbonated drink and was able to drink it without difficulty. Patient received glucagon 2 mg IV. Patient was able to eat applesauce. Patient feels like the obstructions resolved.] Treatment Plan: [Discharged home in stable condition. Patient will be referred to Dr. Venkatesh Diaz who is on-call for general surgery if she should continue to have similar symptoms may need further investigation such as possibly EGD to evaluate. Patient advised to chew her food into small pieces.] Disposition: [Discharged home in stable condition] Impression: [Esophageal meat impaction-resolved] This note was generated with [employer] dictation software. It may contain incorrect words, spelling, and punctuation that were not noted in review of the chart prior to signing ED Disposition - Plan for ED Patient: Chief Complaint: Foreign Body Referrals: Josué Price MD [Primary Care Provider] - What to do if you have Problems For any increased pain, shortness of breath, bleeding, nausea or vomiting, chest pain, or any unexpected problems, contact your Primary Care Provider. Call [facility] ([phone]) or report to the closest Emergency Room. Call 911 if necessary. 12/14/172024 <Electronically signed by Tony Ramirez DO> Date Tony Ramirez DO Cosigner Signature (If Indicated): Date CC: Josué Price MD PLASTIC SURGERY Observed: 11/29/2017 Status: F Source: [place] VISIT REPORT 1:56 PM [facility] REPOSITORY [facility] [address] [address] OFFICE VISIT Date of Service: 11/23/17 MR#: [id number] Acct: [id number] Name: SHARON BARRAGAN Rep #: [id number] : 1970 Provider: Junior Whitman MD Age/Sex: 47/F Location: [facility] Status: Signed Intake Vital Signs11/23/17 Blood Pressure 125/85 11/23/17 Blood Pressure Location Lt brachial 11/23/17 Blood Pressure Position Sitting 11/23/17 Respiratory Rate 16 Intake Visit Reasons: post op surgery 09/19/17 Lifeguard Required: No Accompanied by: Mother Is patient in pain?: No Allergies FIBERGLASS Allergy (Severe, Uncoded 11/23/17 13:23) SEVERE ITCHING AND RASH POULTRY Allergy (Uncoded 10/18/17 11:36) Anaphylaxis Medications Sertraline HCl [Zoloft] 150 mg PO DAILY@0600 09/12/17 [History Confirmed 10/18/17] traZODone [Desyrel] 50 mg PO QHS 09/12/17 [History Confirmed 10/18/17] Docusate Sodium [Colace] 100 mg PO BID #60 cap 09/25/17 [Rx Confirmed 10/18/17] Iron Polysaccharide Complex [Ferrex 150] 150 mg PO DAILYCM #30 cap 09/25/17 [Rx Confirmed 10/18/17] levoFLOXacin tablet [Levaquin tablet] 500 mg PO .QDAILY #14 tab 09/25/17 [Rx Confirmed 10/18/17] proMETHazine tablet [Phenergan tablet] 25 mg PO 4X/DAY PRN PRN #30 tab 09/25/17 [Rx Confirmed 10/18/17] Non-Adherent Bandage [Mepitel] 2 ea TP .QOD #30 bandage 10/04/17 [Rx Confirmed 10/18/17] Diazepam [Valium] 10 mg PO BID PRN PRN #20 tab 10/23/17 [Rx] diazepam 5 mg tablet 5 mg PO TID PRN #20 tab 11/14/17 [Rx] diazepam 5 mg tablet 5 mg PO TID PRN #20 tab 11/23/17 [Rx Confirmed 11/23/17] PFSH Medical History 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) Partial loss of skin graft (Acute) Late effect of radiation (Chronic) Breast cancer, right breast (Acute) 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) BONE FRACTURES - BROKEN RIGHT ARM (Acute) Back pain (Acute) Breast cancer in female (Acute) Breast lump in female (Acute) 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 Social History Smoking Status: Former smoker second hand exposure: No alcohol intake: current alcohol intake frequency: a few times a week Alcohol type: other substance use type: does not use what type of physical activity do you participate in: other frequency: daily seatbelt use: always do you feel safe at home: Yes additional social history: SUN EXPOSURE: OCCASIONALLY HPI post op surgery 09/19/17: Details: Postop visit from her recent surgery on 09/19/17 where she underwent revision right breast reconstruction with excision nonhealing radiation ulcer scar contour deformity and lateral rotation TRAM flap and delayed right breast reconstruction with placement of latissimus dorsi myocutaneous flap. She was discharged from the hospital on 09/25/17. Comes in today with much less pain in her back wound. It is getting more tolerable as it heals. On exam, the latissimus flap is soft and healing well. It has improved with the HBO treatments. There is no evidence of infection. On the distal tip of the flap in the inferomedial aspect of the breast adjacent to the TRAM flap was a dry eschar that has been removed. Good healed scar is sen underneath. The remaining TRAM flap is also healed. The left breast INF is elevated about 1.5 cm. On the right breast laterally is some radiation scarring. The INF laterally on the right is more elevated than the medial aspect of the right breast where the remaining TRAM flap is located. The radiation scarring will act as a frame of reference for the IMF. Will need to elevate the TRAM flap in the future as a medial crease. So will lower the IMF on the left to match the radiation scarring on the right laterally. Will revise the excess mastectomy skin scar contour deformity on the left. The goal is implant placement bilaterally with the right breast needing a larger implant. The back wound looks great. Dimensions are much smaller and more superficial. Good granulation tissue is seen. Wound measures 6 x 4 cm. Using a #3 curette I sharply debrided the back wound down into the subcutaneous tissue as an excisional debridement. Good bleeding was seen. Easily controlled with gentle pressure. Placed a saline dressing today until the VAC can be placed by home health tomorrow. Continue the VAC. Continue the chest wall compression BRUCE wrap. She is getting another HBO treatment tomorrow. She is doing well with them. Will continue HBO treatments until her next breast reconstruction surgery next month. Her Pathology showed no carcinoma was seen. The operative culture was negative. She has finished the Levaquin. Tentative plan for continued breast reconstruction surgery in a month. Will revise reconstructed breasts bilaterally with excision of excess mastectomy skin scar contour deformity and revise the asymmetric inframammary folds and place acellular dermal matrix graft slings inferolaterally to help shape and contour the breast reconstruction. Will then place cohesive gel implants with the right breast reconstruction probably having a slightly larger breast implant. Followup 3 weeks. Will further discuss her operative game plan at her next visit and to sign her consent forms. Surgery will be under general anesthesia with a surgical observation overnight stay in the hospital. Patient was informed of the risks and complications of the procedure including alternatives to surgery. These were discussed with the patient personally. Patient voices understanding and wishes to proceed. Renewed her Valium for spasm (30 tabs). Assessment AND Plan Problems 1. Radiation skin ulcer of chest L98.499 2. Breast cancer, right breast C50.911 3. 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 Late effect of radiation T66.XXXS 7. Postoperative hematoma of subcutaneous tissue following non-dermatologic procedure L76.32 8. Partial loss of skin graft T86.828 9. Estrogen receptor negative status [ER-] Z17.1 10. 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 Postoperative hematoma of subcutaneous tissue following non- dermatologic procedure L76.32 Partial loss of skin graft T86.828 Estrogen receptor negative status [ER-] Z17.1 Former cigarette smoker Z87.891 11/29/17 0004 <Electronically signed by Junior Whitman MD> Date Junior Whitman MD 11/29/17 1356<Electronically signed by Della BALDERAS> Cosigner Signature: Date (if applicable) Della Dale CC: C DIFFICILE PCR Collected: 11/15/2017 Status: F Source: [facility] 2:30 PM [facility] REPOSITORY TYPE CODE TESTS RESULT OUT OF REFERENCE UNITS RANGE LAB CDFRES C difficile PCR Negative for C. difficile toxin by PCR Performed By: #### CDPCR #### [facility] [address] [place], [place] [address] PLASTIC SURGERY Observed: 11/05/2017 Status: F Source: [place] VISIT REPORT 11:33 AM [facility] REPOSITORY [facility] [address] [place] [address] OFFICE VISIT Date of Service: 10/18/17 MR#: [id number] Acct: [id number] Name: SHARON BARRAGAN Rep #: [id number] : 1970 Provider: Junior Whitman MD Age/Sex: 47/F Location: [facility] Status: Signed Intake Vital Signs10/18/17 Height 5 ft 1 in 10/18/17 Weight: 178 lb 10/18/17 Body Mass Index (BMI) 33.6 10/18/17 Blood Pressure 107/76 10/18/17 Blood Pressure Location Lt brachial 10/18/17 Blood Pressure Position Sitting Intake Visit Reasons: postop surgery 09/19/17 Lifeguard Required: No Is patient in pain?: Yes (pt. states that she is sore) Allergies POULTRY Allergy (Uncoded 10/18/17 11:36) Anaphylaxis Medications Sertraline HCl [Zoloft] 150 mg PO DAILY@0600 09/12/17 [History Confirmed 10/18/17] traZODone [Desyrel] 50 mg PO QHS 09/12/17 [History Confirmed 10/18/17] Docusate Sodium [Colace] 100 mg PO BID #60 cap 09/25/17 [Rx Confirmed 10/18/17] Iron Polysaccharide Complex [Ferrex 150] 150 mg PO DAILYCM #30 cap 09/25/17 [Rx Confirmed 10/18/17] levoFLOXacin tablet [Levaquin tablet] 500 mg PO .QDAILY #14 tab 09/25/17 [Rx Confirmed 10/18/17] proMETHazine tablet [Phenergan tablet] 25 mg PO 4X/DAY PRN PRN #30 tab 09/25/17 [Rx Confirmed 10/18/17] Non-Adherent Bandage [Mepitel] 2 ea TP .QOD #30 bandage 10/04/17 [Rx Confirmed 10/18/17] Diazepam [Valium] 10 mg PO BID PRN PRN #20 tab 10/23/17 [Rx] oxycodone-acetaminophen 5 mg-325 mg tablet 1 - 2 tab PO 4X/DAY PRN PRN 7 Days #40 tab 11/03/17 [Rx] [facility] Medical History 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) Partial loss of skin graft (Acute) Late effect of radiation (Chronic) Breast cancer, right breast (Acute) 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) BONE FRACTURES - BROKEN RIGHT ARM (Acute) Back pain (Acute) Breast cancer in female (Acute) Breast lump in female (Acute) 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 Social History Smoking Status: Former smoker second hand exposure: No alcohol intake: current alcohol intake frequency: a few times a week Alcohol type: other substance use type: does not use what type of physical activity do you participate in: other frequency: daily seatbelt use: always do you feel safe at home: Yes additional social history: SUN EXPOSURE: OCCASIONALLY HPI postop surgery 09/19/17: Details: Postop visit from her recent surgery on 09/19/17 where she underwent revision right breast reconstruction with excision nonhealing radiation ulcer scar contour deformity and lateral rotation TRAM flap and delayed right breast reconstruction with placement of latissimus dorsi myocutaneous flap. She was discharged from the hospital on 09/25/17. Comes in today with persistent pain in her back wound. She states it is getting a little better. She states the Duragesic Patch has been helpful. On exam, the latissimus flap is soft and healing well. The seroma has decreased a lot with the compression BRUCE wrap. Sutures were removed today without difficulty. There is a very small area of scabbing (< 1 cm) at the distal tip of the flap in the inferomedial aspect of the breast adjacent to the TRAM flap. It is a dry eschar and will act as a biologic dressing. There is no evidence of infection. The back wound looks great. Dimensions are much smaller and less deep. Good granulation tissue is seen. Wound measures 16 x 7 x 1 cm. Using a #3 curette I sharply debrided the back wound down into the subcutaneous tissue as an excisional debridement. Good bleeding was seen. Easily controlled with gentle pressure. Continue the VAC. Continue the chest wall compression BRUCE wrap. She is getting HBO treatment later today. She is tolerating them thus far. Her Pathology showed no carcinoma was seen. The operative culture was negative. She has finished the Levaquin. [facility]. Assessment AND Plan Problems 1. Radiation skin ulcer of chest L98.499 2. Breast cancer, right breast C50.911 3. 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 Late effect of radiation T66.XXXS 7. 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 Partial loss of skin graft T86.828 9. Estrogen receptor negative status [ER-] Z17.1 10. 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 Partial loss of skin graft T86.828 Estrogen receptor negative status [ER-] Z17.1 Former cigarette smoker Z87.891 11/05/17 1133 <Electronically signed by Junior Whitman MD> Date Junior Whitman MD Cosigner Signature: Date (if applicable) CC: RETICULOCYTE Collected: 10/31/2017 Status: F Source: [facility] 11:54 AM [facility] REPOSITORY TYPE CODE TESTS RESULT OUT OF REFERENCE UNITS RANGE LAB RETC 0.4-2.0 % High Retic% 2.6 LAB ABRET 0.0180-0.1000 M/uL High Abs Retic 0.111 Performed By: #### RETIC, WSR, B12, CRP, IRON, FERR #### [place] [phone] SED RATE WESTERGREN Collected: 10/31/2017 Status: F Source: [facility] 11:54 AM [facility] REPOSITORY TYPE CODE TESTS RESULT OUT OF REFERENCE UNITS RANGE LAB WSR 0-20 mm/hr Sed Rate High [place] 44 Performed By: #### RETIC, WSR, B12, CRP, IRON, FERR #### [place] [phone] VITAMIN B12 Collected: 10/31/2017 Status: F Source: [facility] 11:54 [facility] REPOSITORY TYPE CODE TESTS RESULT OUT OF REFERENCE UNITS RANGE LAB B12 232-1245 pg/mL Vitamin B12 647 Performed By: #### RETIC, WSR, B12, CRP, IRON, FERR #### [place] [address] C-REACTIVE PROTEIN Collected: 10/31/2017 Status: F Source: [facility] 11:54 [facility] REPOSITORY TYPE CODE TESTS RESULT OUT OF REFERENCE UNITS RANGE LAB CRP <0.9 mg/dL High C-Reactive 2.1 Protein Performed By: #### RETIC, WSR, B12, CRP, IRON, FERR #### [place] [address] IRON AND TIBC Collected: 10/31/2017 Status: F Source: [place] 11:54 AM [facility] REPOSITORY TYPE CODE TESTS RESULT OUT OF REFERENCE UNITS RANGE LAB IRN 41-186 ug/dL Low Iron 33 LAB TIBC 232-386 ug/dL TIBC High 405 LAB SAT 15-57 % Low Transferrin Saturatn 8 Performed By: #### RETIC, WSR, B12, CRP, IRON, FERR #### [facility] [address] [place] [address] FERRITIN Collected: 10/31/2017 Status: F Source: [place] 11:54 AM [facility] REPOSITORY TYPE CODE TESTS RESULT OUT OF REFERENCE UNITS RANGE LAB FERR 14.7-205.1 ng/mL Ferritin 42.7 Performed By: #### RETIC, WSR, B12, CRP, IRON, FERR #### [facility] [address] [place] [address] KODI CBC Collected: 10/31/2017 Status: F Source: [place] 11:53 AM [facility] REPOSITORY TYPE CODE TESTS RESULT OUT OF REFERENCE UNITS RANGE LAB WWBC 3.70-11.00 k/uL [place] WBC 4.36 LAB WRBC 3.90-5.20 m/uL [place] RBC 4.37 LAB WHGB 11.5-15.5 g/dL Low [place] Hemoglobin 11.4 LAB WHCT 36.0-46.0 % Low [place] Hematocrit 34.1 LAB WMCV 80.0-100.0 fL Low [place] MCV 78.0 LAB WMCH 26.0-34.0 pg [place] MCH 26.1 LAB WMCHC 30.5-36.0 g/dL [place] MCHC 33.4 LAB WRDW 11.5-15.0 % [place] RDW 14.6 LAB WPLT 150-400 k/uL [place] Platelet Cnt 295 LAB WMPV 9.0-12.7 fL [place] MPV 9.5 PROGRESS Observed: 10/31/2017 Status: COMPLETED Source: [facility] 11:20 AM [facility] REPOSITORY HNO ID: [id number] Author: Iron Nguyen Service: (none) Author Type: Physician Type: Progress Notes Filed: 10/31/2017 11:36 AM Note Text: Diagnosis: 1) Triple negative early stage breast cancer. HPI: The patient is a 47 yo premenopausal female (at time of diagnosis) who underwent a hysterectomy with unilateral oophorectomy 09/2015. About 3 weeks post-op, patient appreciated a lump in the right breast. Subjectively it grew fairly quickly. A diagnostic mammogram 11/19/2015 revealed a 1.2 cm x 0.8 cm x 1.2 cm lobulated mass in the right breast that was suspicious of malignancy. Ultrasound-guided core needle biopsy of 2 lesions in the right breast on 12/09/2015 was performed. The pathology demonstrated that the first lesion revealed invasive ductal carcinoma, nuclear grade 3. The second lesion taken from the lesion at the 9:00 position demonstrated fibroadenoma. Negative for both ER and ID. HER-2 was interpreted as 2+, granular. Subsequent FISH testing revealed it to be nonamplified. MRI of breasts 12/28/2015: IMPRESSION: 1. ?1.3 cm enhancing mass at 7:00, at posterior depth, in the right breast represents the biopsy proven invasive ductal carcinoma. ?Continued surgical/oncologic management is necessary. 2. ?Four additional suspicious enhancing masses (6:00, anterior depth; 9:00, posterior depth; 9:00 posterior depth; central access, anterior depth) in the right breast. ?If breast conservation is desired, additional biopsy/biopsies is/are recommended. ?Per the electronic medical record, the patient is currently planning for mastectomy. 3. ?Suspicious 0.6 cm enhancing mass at 1:00, at middle depth, in the left breast. ?Second look ultrasound with subsequent biopsy is recommended. ?If no sonographic correlate is identified, then an MRI guided biopsy is recommended. 4. ?Suspicious 0.6 cm enhancing mass at 6:00, at posterior depth, in the left breast. ?Second look ultrasound with subsequent biopsy is recommended. ?If no sonographic correlate is identified, then an MRI guided biopsy is recommended. 5. ?No MRI evidence of internal mammary or axillary lymphadenopathy. Quit smoking 01/02/2016. Patient underwent a right-sided mastectomy along with sentinel lymph node biopsy as well as a prophylactic left mastectomy with left sentinel lymph node biopsy on 01/12/2016. Final pathology demonstrated that within the right breast there was one focus of cancer measuring 1.5 cm. DCIS and LCIS were not present. Overall grade was 3. Margins were negative. Lymphovascular invasion was not observed. 4 lymph nodes were retrieved and all were negative for disease. Specimen from the left breast revealed diffuse fibrocystic changes and intraductal hyperplasia without atypia. No malignancy was observed. One sentinel lymph node was retrieved on the left and it was negative for disease. She underwent attempted TRAM flap breast reconstruction in May 2017. Evidently the top portion of the graft failed and became necrotic and was removed and debrided. She developed a wound and initially had a wound VAC to and required hyperbaric oxygen treatment. Previous therapy: 1) AC followed by Taxol. Competed 06/16/2016. 2) Adjuvant radiation completed 08/30/2016. Presents for ongoing oncologic management. Interim history: She underwent another graft procedure. She apparently was tachycardic after the surgery and was found to be anemic. Her PCP repeated a CBC on . Hemoglobin was 9.6. Red cell indexes were normal. I feel fine. She doesn't have any trouble with palpitations, chest pressure or tightness or lower extremity swelling. She is not short of breath at rest or with activity. No unusual bleeding or unexplained bruising. No muscular skeletal pain. Currently has a wound VAC in place over the right upper back graft site. The reconstructed breast site is healing well. There hasn't been any infectious issues. PMH, medications and allergies as below personally reviewed by me today. Any changes documented in appropriate section. ROS: Constitutional: Denies episodes of fever and night sweats. Neuro: See above. HEENT: No recent change in voice, vision or hearing. Resp: Denies cough, wheeze and hemoptysis. CVS: See above. GI: Denies dysgeusia. Denies symptoms of stomatitis. Denies dysphagia and odynophagia. : Denies dysuria or gross hematuria. No symptoms of bladder outlet obstruction. Endo: Denies hot flashes. Denies polyuria and polydipsia. Denies heat and cold intolerance. Musculoskeletal: See above. Derm: Denies rash. Denies jaundice and diffuse pruritis. Heme: See above. Psych: Normal mood. PHYSICAL EXAM: Vitals: Blood pressure 102/64, pulse 89, temperature 36.7 ?C (98.1 ?F), temperature source Oral, weight 79.8 kg (176 lb), last menstrual period 08/31/2015. Well-appearing and in no acute distress. EYES: Sclerae are anicteric bilaterally. NECK: Supple. LYMPHATIC: There is no palpable cervical, supraclavicular adenopathy. RESPIRATORY: Inspiratory breath sounds are of normal intensity in all [place]. No rales, wheezes or rhonchi. CARDIOVASCULAR: Rhythm is regular. Normal intensity S1/S2. There is no gallop or murmur. BREAST: Her mother acted as aircraft servicer. The right reconstructed breast mound appears healthy with no sign of surrounding infection. There is some induration along the lateral portion into the axilla. It's nontender. No fluctuance or erythema. ABDOMEN: Less upper abdominal distention. No mass. Extremities: No swelling or edema. SKIN: No jaundice or rash. No petechiae. 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 No focal motor weakness. MUSCULOSKELETAL: No muscle wasting or tenderness. ASSESSMENT/PLAN: (C50.511) Breast cancer of lower-outer quadrant of right female breast (HCC) (primary encounter diagnosis) Assessment: -pT1c (1.5 cm; grade 3; no ALI) pN0(sln) MX ER/ID negative, HER-2 nonamplified invasive ductal carcinoma the right breast. -Genetic testing negative. -No concerning symptoms or exam findings currently to suggest recurrence of disease. Plan: -OV in about 3-4 months. (D64.9) Anemia, unspecified type Assessment: -Chronic issue likely some component of anemia of chronic disease. She is going through a second course of hyperbaric oxygen treatment. She also has a wound VAC in place and has had prolonged healing of previous breast reconstructive surgeries. Plan: -Laboratory workup to rule out reversible causes of anemia including vitamin B-12 deficiency and iron deficiency. Iron Nguyen DO CNOVSP Observed: 10/31/2017 Status: COMPLETED Source: [facility] 11:10 AM [facility] REPOSITORY Visit (SP) Office (HEMAWS) SHARON BARRAGAN ([id number]) 1970 F Date Time Provider Department 10/31/17 11:10 AM IR[facility] NGUYEN During your visit today, we recorded the following information about you: Temperature Pulse Blood pressure Weight 98.1 degrees 89/minute 102/64 79.8 kg Iron Nguyen DO 10/31/2017 11:36 AM Signed Diagnosis: 1) Triple negative early stage breast cancer. HPI: The patient is a 47 yo premenopausal female (at time of diagnosis) who underwent a hysterectomy with unilateral oophorectomy 09/2015. About 3 weeks post-op, patient appreciated a lump in the right breast. Subjectively it grew fairly quickly. A diagnostic mammogram 11/19/2015 revealed a 1.2 cm x 0.8 cm x 1.2 cm lobulated mass in the right breast that was suspicious of malignancy. Ultrasound-guided core needle biopsy of 2 lesions in the right breast on 12/09/2015 was performed. The pathology demonstrated that the first lesion revealed invasive ductal carcinoma, nuclear grade 3. The second lesion taken from the lesion at the 9:00 position demonstrated fibroadenoma. Negative for both ER and ID. HER-2 was interpreted as 2+, granular. Subsequent FISH testing revealed it to be nonamplified. MRI of breasts 12/28/2015: IMPRESSION: 1. ?1.3 cm enhancing mass at 7:00, at posterior depth, in the right breast represents the biopsy proven invasive ductal carcinoma. ?Continued surgical/oncologic management is necessary. 2. ?Four additional suspicious enhancing masses (6:00, anterior depth; 9:00, posterior depth; 9:00 posterior depth; central access, anterior depth) in the right breast. ?If breast conservation is desired, additional biopsy/biopsies is/are recommended. ?Per the electronic medical record, the patient is currently planning for mastectomy. 3. ?Suspicious 0.6 cm enhancing mass at 1:00, at middle depth, in the left breast. ?Second look ultrasound with subsequent biopsy is recommended. ?If no sonographic correlate is identified, then an MRI guided biopsy is recommended. 4. ?Suspicious 0.6 cm enhancing mass at 6:00, at posterior depth, in the left breast. ?Second look ultrasound with subsequent biopsy is recommended. ?If no sonographic correlate is identified, then an MRI guided biopsy is recommended. 5. ?No MRI evidence of internal mammary or axillary lymphadenopathy. Quit smoking 01/02/2016. Patient underwent a right-sided mastectomy along with sentinel lymph node biopsy as well as a prophylactic left mastectomy with left sentinel lymph node biopsy on 01/12/2016. Final pathology demonstrated that within the right breast there was one focus of cancer measuring 1.5 cm. DCIS and LCIS were not present. Overall grade was 3. Margins were negative. Lymphovascular invasion was not observed. 4 lymph nodes were retrieved and all were negative for disease. Specimen from the left breast revealed diffuse fibrocystic changes and intraductal hyperplasia without atypia. No malignancy was observed. One sentinel lymph node was retrieved on the left and it was negative for disease. She underwent attempted TRAM flap breast reconstruction in May 2017. Evidently the top portion of the graft failed and became necrotic and was removed and debrided. She developed a wound and initially had a wound VAC to and required hyperbaric oxygen treatment. Previous therapy: 1) AC followed by Taxol. Competed 06/16/2016. 2) Adjuvant radiation completed 08/30/2016. Presents for ongoing oncologic management. Interim history: She underwent another graft procedure. She apparently was tachycardic after the surgery and was found to be anemic. Her PCP repeated a CBC on . Hemoglobin was 9.6. Red cell indexes were normal. I feel fine. She doesn't have any trouble with palpitations, chest pressure or tightness or lower extremity swelling. She is not short of breath at rest or with activity. No unusual bleeding or unexplained bruising. No muscular skeletal pain. Currently has a wound VAC in place over the right upper back graft site. The reconstructed breast site is healing well. There hasn't been any infectious issues. PMH, medications and allergies as below personally reviewed by me today. Any changes documented in appropriate section. ROS: Constitutional: Denies episodes of fever and night sweats. Neuro: See above. HEENT: No recent change in voice, vision or hearing. Resp: Denies cough, wheeze and hemoptysis. CVS: See above. GI: Denies dysgeusia. Denies symptoms of stomatitis. Denies dysphagia and odynophagia. : Denies dysuria or gross hematuria. No symptoms of bladder outlet obstruction. Endo: Denies hot flashes. Denies polyuria and polydipsia. Denies heat and cold intolerance. Musculoskeletal: See above. Derm: Denies rash. Denies jaundice and diffuse pruritis. Heme: See above. Psych: Normal mood. PHYSICAL EXAM: Vitals: Blood pressure 102/64, pulse 89, temperature 36.7 ?C (98.1 ?F), temperature source Oral, weight 79.8 kg (176 lb), last menstrual period 08/31/2015. Well-appearing and in no acute distress. EYES: Sclerae are anicteric bilaterally. NECK: Supple. LYMPHATIC: There is no palpable cervical, supraclavicular adenopathy. RESPIRATORY: Inspiratory breath sounds are of normal intensity in all [place]. No rales, wheezes or rhonchi. CARDIOVASCULAR: Rhythm is regular. Normal intensity S1/S2. There is no gallop or murmur. BREAST: Her mother acted as aircraft servicer. The right reconstructed breast mound appears healthy with no sign of surrounding infection. There is some induration along the lateral portion into the axilla. It's nontender. No fluctuance or erythema. ABDOMEN: Less upper abdominal distention. No mass. Extremities: No swelling or edema. SKIN: No jaundice or rash. No petechiae. 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 No focal motor weakness. MUSCULOSKELETAL: No muscle wasting or tenderness. ASSESSMENT/PLAN: (C50.511) Breast cancer of lower-outer quadrant of right female breast (HCC) (primary encounter diagnosis) Assessment: -pT1c (1.5 cm; grade 3; no ALI) pN0(sln) MX ER/ID negative, HER-2 nonamplified invasive ductal carcinoma the right breast. -Genetic testing negative. -No concerning symptoms or exam findings currently to suggest recurrence of disease. Plan: -OV in about 3-4 months. (D64.9) Anemia, unspecified type Assessment: -Chronic issue likely some component of anemia of chronic disease. She is going through a second course of hyperbaric oxygen treatment. She also has a wound VAC in place and has had prolonged healing of previous breast reconstructive surgeries. Plan: -Laboratory workup to rule out reversible causes of anemia including vitamin B-12 deficiency and iron deficiency. Iron Nguyen DO Referring Provider: IRON NGUYEN [[id number]] Allergies As of Date: 10/31/2017 Noted Allergy Reaction HAYFEVER (HOMEOPATHIC PRODUCTS) 03/07/2006 poultry [Other] 03/07/2006 Comments: [place], chicken Date Reviewed: 10/31/2017 Reviewed by: Alexa Arizmendi - Fully Assessed Reason for Visit: Established Patient [175] Primary Visit Diagnosis:Malignant neoplasm of lower-outer quadrant of right breast of female, estrogen receptor negative (HCC) [C50.511, Z17.1] Other Visit Diagnosis:Anemia, unspecified type [D64.9] Order(s):KODI CBC [SQWCBC] Order #: [id number] FUTURE IRON + TIBC [SQIRON] Order #: [id number] FUTURE FERRITIN BLD [SQFERR] Order #: [id number] FUTURE RETIC COUNT [SQRETIC] Order #: [id number] FUTURE SED RATE WESTERGREN [SQWSR] Order #: [id number] FUTURE C-REACTIVE PROTEIN (CRP) [SQCRP] Order #: [id number] FUTURE VITAMIN B12 BLOOD [SQB12] Order #: [id number] FUTURE Follow-up and Disposition History Recorded Prescriptions as of 10/31/2017 Sig: IFEREX 150 150 MG IRON CAPSULE TAKE ONE CAPSULE BY MOUTH MATHEW* TRAZODONE 50 MG TABLET Take 1 tablet by mouth daily * OXYCODONE-ACETAMINOPHEN 5 MG-* Take 1 tablet by mouth every * DIAZEPAM 5 MG TABLET Take 5 mg by mouth every 6 ho* SERTRALINE 50 MG TABLET Take 3 tablets by mouth once * ACETAMINOPHEN 500 MG TABLET Take 500 mg by mouth as neede* Problem List As Of Date 10/31/2017 Noted Resolved 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] INVALID FOR*02/20/2017 Sciatica of right side [M54.31] INVALID FOR*02/04/2016 Lumbar sprain and strain INVALID FOR*02/04/2016 SI (sacroiliac) joint inflammation (HCC) [M46.1]INVALID FOR*02/04/2016 Lumbar radicular pain [M54.16] INVALID FOR*02/04/2016 Fibroid uterus [D25.9] INVALID FOR*04/04/2016 Breast cancer of lower-outer quadrant of right *INVALID FOR* Severe episode of recurrent major depressive di*INVALID FOR* Chest wall pain following surgery [R07.89, G89.*INVALID FOR*06/15/2016 Priority: Moderate Financial difficulties [Z59.8] INVALID FOR* Status post mastectomy [Z90.10] INVALID FOR* Insomnia due to medical condition [G47.01] INVALID FOR* Stress at home [F43.9] INVALID FOR* History of Clostridium difficile [GLV2810] INVALID FOR*02/20/2017 More... Atherosclerosis of aorta (HCC) [I70.0] INVALID FOR* More... Palpitations [R00.2] INVALID FOR* Lymphedema [I89.0] INVALID FOR* Chronic bilateral low back pain with bilateral *INVALID FOR* More... Bilateral plantar fasciitis [M72.2] INVALID FOR* Open wound of chest wall [S21.109A] INVALID FOR* More... Encounter Status:Closed by IRON NGUYEN DO on 10/31/17 PLASTIC SURGERY Observed: 10/17/2017 Status: F Source: [place] VISIT REPORT 4:39 PM [facility] REPOSITORY [facility] [address] [place] [address] OFFICE VISIT Date of Service: 09/27/17 MR#: [id number] Acct: [id number] Name: SHARON BARRAGAN Rep #: [id number] : 1970 Provider: Junior Whitman MD Age/Sex: 47/F Location: [facility] Status: Signed Intake Vital Signs09/27/17 Respiratory Rate 18 Intake Visit Reasons: postop surgery 09/19/17 Lifeguard Required: No Accompanied by: Mother Is patient in pain?: Yes (BACK AND CHEST PAIN STABBING AND DEEP) Pain scale (1-10): 8 Allergies POULTRY Allergy (Uncoded 10/07/17 20:50) Anaphylaxis Medications Sertraline HCl [Zoloft] 150 mg PO DAILY@0600 09/12/17 [History Confirmed 10/07/17] traZODone [Desyrel] 50 mg PO QHS 09/12/17 [History Confirmed 10/07/17] Diazepam [Valium] 10 mg PO 4X/DAY PRN PRN 7 Days #30 tab 09/25/17 [Rx Confirmed 10/07/17] Docusate Sodium [Colace] 100 mg PO BID #60 cap 09/25/17 [Rx Confirmed 10/07/17] Iron Polysaccharide Complex [Ferrex 150] 150 mg PO DAILYCM #30 cap 09/25/17 [Rx Confirmed 10/07/17] Oxycodone HCl/Acetaminophen [Percocet 5-325] 1 - 2 tab PO 4X/DAY PRN PRN 7 Days #60 tab 09/25/17 [Rx Confirmed 10/07/17] levoFLOXacin tablet [Levaquin tablet] 500 mg PO .QDAILY #14 tab 09/25/17 [Rx Confirmed 10/07/17] proMETHazine tablet [Phenergan tablet] 25 mg PO 4X/DAY PRN PRN #30 tab 09/25/17 [Rx Confirmed 10/07/17] Non-Adherent Bandage [Mepitel] 2 ea TP .QOD #30 bandage 10/04/17 [Rx Confirmed 10/07/17] fentanyl 50 mcg/hr transdermal patch 1 patch TRANSDERMAL Q72H #5 ea 10/12/17 [Rx] PFSH Medical History 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) Partial loss of skin graft (Acute) Late effect of radiation (Chronic) Breast cancer, right breast (Acute) 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) BONE FRACTURES - BROKEN RIGHT ARM (Acute) Back pain (Acute) Breast cancer in female (Acute) Breast lump in female (Acute) 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 Social History Smoking Status: Former smoker second hand exposure: No alcohol intake: current alcohol intake frequency: a few times a week Alcohol type: other substance use type: does not use what type of physical activity do you participate in: other frequency: daily seatbelt use: always do you feel safe at home: Yes additional social history: SUN EXPOSURE: OCCASIONALLY HPI postop surgery 09/19/17: Details: Postop visit from her recent surgery on 09/19/17 where she underwent revision right breast reconstruction with excision nonhealing radiation ulcer scar contour deformity and lateral rotation TRAM flap and delayed right breast reconstruction with placement of latissimus dorsi myocutaneous flap. She was discharged from the hospital on 09/25/17. Comes in today complaining of increasing pain since this morning. She states she had fallen at home. She came from [facility] as she felt she was in too much pain to do the treatment today. On exam, the latissimus flap is soft and healing well. There is a very small area of scabbing (< 1 cm) at the distal tip of the flap in the inferomedial aspect of the breast adjacent to the TRAM flap. No evidence of bleeding. VAC in place. No problems with the suction. Her Pathology was discussed with the patient. No carcinoma was seen. The operative culture was discussed with the patient. It was negative. She will continue Levaquin until the drain is removed. For her increased pain, I added a script for Duragesic Patch 50 mcg (5 patches). Hopefully this should help with decreasing some of the breakthrough pain she is having. She will resume her HBO treatments on 09/29/17. She gets her VAC changed tomorrow so she wants to wait until Monday for the HBO. Followup one week to remove the drain. She will [facility] 10[facility]17. Assessment AND Plan Problems 1. Radiation skin ulcer of chest L98.499 2. Breast cancer, right breast C50.911 3. 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 Late effect of radiation T66.XXXS 7. 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 Partial loss of skin graft T86.828 9. Estrogen receptor negative status [ER-] Z17.1 10. 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 Partial loss of skin graft T86.828 Estrogen receptor negative status [ER-] Z17.1 Former cigarette smoker Z87.891 10/17/17 1639 <Electronically signed by Junior Whitman MD> Date Junior Whitman MD Cosigner Signature: Date (if applicable) CC: OPERATIVE REPORT Observed: 10/13/2017 Status: F Source: [place] 11:57 AM [facility] REPOSITORY [facility] Medical Records Department [address] [place] [id number] Operative Report 09/19/[id number] MR#: [id number] Acct: [id number] Name: SHARON BARRAGAN Rep #: [id number] : 1970 47 From: Junior Whitman MD PCP: Josué Price MD Status: DIS IN Y Location: [facility] [id number] Report of Operation Date of Procedure: 09/19/17 Pre-Operative Diagnosis: 1. 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 2. Right breast cancer. 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 5. Disproportion reconstructed breasts. 6. Late effect radiation right breast. 7. 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 8. Compromised TRAM flap right breast reconstruction with partial loss. 9. History of hematoma right breast reconstruction and chest wall. 10. Estrogen receptor status negative. 11. Former smoker. Post-Operative Diagnosis: Same. Surgery/Procedure Performed:: 1. Revision right breast reconstruction with excision nonhealing radiation ulcer scar contour deformity and lateral rotation TRAM flap. 2. Delayed right breast reconstruction with placement of latissimus dorsi myocutaneous flap. Description of Surgical Findings:: 47 year old woman presents for further evaluation for breast reconstruction. Her initial bilateral mastectomy was on 01/12/16. She underwent IV chemotherapy initially and this was followed by radiation therapy to the right breast. She finished the radiation therapy in 10/03. She underwent a TRAM flap in 05/07. She developed a hematoma in the TRAM flap followed by some TRAM flap compromise. About 20% of the flap was salvaged after drainage of a postop hematoma and after debridement of some compromise to the TRAM flap. She underwent wound care with the VAC and then with Silver dressing changes along with antibiotics and HBO therapy to try and salvage the right breast reconstruction and chest wall in preparation for further breast reconstruction. The patient was informed of the risks and complications of the procedure including alternatives to surgery. These were discussed with the patient personally. The patient voices understanding and wishes to proceed. Some of the risks and complications were included in a form from the [employer]. Encouraged the patient to stop smoking as it may have deleterious effects on wound healing. She states she has stopped smoking after her breast cancer diagnosis. Size of defect right back - 21 x 15 x 2 cm. IV Fluids - 3000 ml. Urine Output - 1125 ml. I used Geri absorbable hemostat (I used 4 vials, 2 in the right back, one in the right breast, and one in the flank areas). Reference Number - [id number]. Lot Number - [id number]. Expiration - July 15, 2022. bindery machine feeder offbearer: Leigh Ann Brush. bindery machine feeder offbearer: Zeus Souza. Type of Anesthesia:: General Specimen's removed: 1. Radiation ulcer right breast to Pathology and Microbiology. 2. MRSA Wound DNA by PCR. Drains: Amrit x 2 in the right breast. Estimated Blood Loss (mL): 200 ml. Fluids Replaced: 4125 ml (IV Fluids 3000 ml, Urine Output 1125 ml). Description of Procedure: The patient was taken to the preop area and in the sitting position, preoperative markings were made. The sternal midline was marked down to the umbilicus, then the inframammary fold was marked bilaterally. I then had the patient stand, and she abducted her arms and the latissimus dorsi muscle was palpable. I marked the dimensions of the latissimus dorsi from the teres major superiorly to the midline medially to the anterior edge of the muscle laterally to the posterior iliac spine inferiorly. I then kourtney an ellipse of skin on the right back in an oblique fashion from inferomedial to superolateral to allow ease in rotation into the right breast defect. This allowed me to make a larger ellipse. She has a large breast defect, and I anticipate a flap width of 12 cm. Usually the flap wound can be closed if it is 10 cm or less. Since it will be larger, the patient is aware that part of the donor flap incision may be skin grafted. A VAC can also be used. She would prefer a skin graft if possible. So I also made elliptical markings inthe right flank and left flank where the excess abdominal wall TRAM flap scar contour deformities were located to provide the donor skin graft site. The patient was then taken to the OR in the supine position and placed under general anesthesia and a Terrell catheter was then placed. SCDs were placed for DVT prophylaxis. Perioperative antibiotics were given intravenously. I will first excise the nonhealing radiation ulcer scar contour deformity so I have a better idea of the defect for the size of the latissimus dorsi flap. So the right breast and the left flank were prepped and draped in the usual fashion. The left flank will be used as a donor site for skin grafting. It won't be available for excision after I move the patient in the lateral position to mobilize the latissimus flap. The radiation ulcer and left flank donor site areas were infiltrated with xylocaine with epinephrine. After waiting 5 minutes for the anesthetic to take effect, excision was carried down to the chest wall. There was a lot of residual radiation and firmness within this scar deformity and wound deformity. There was a lot of fat necrosis present as well. I also excised the edges of the skin flaps to aid in wound closure. Some of the tissue was sent to microbiology for culture. The rest was sent to pathology for analysis to rule out any carcinoma. MRSA Wound DNA by PCR was also sent. Size of the defect in the right lateral breast in preparation for flap was 17 x 11 cm or 187 sq cm. I then placed moist gauze into the right breast wound and a sterile towel that was stapled to the skin for security during the position transfer of the patient. I then made an elliptical excision in the left flank as I extended the TRAM flap incision. I removed the subcutaneous tissue and deeper dermis thus fashioning a thick split thickness skin graft. The skin graft was placed on stretch and meshed with a 15 blade. The skin graft was then placed in saline. Some excess subcutaneous tissue was removed to aid in wound closure. Hemostasis was obtained with electrocautery. Before closing the donor wound, I sprayed a little bit of Geri absorbable hemostat to minimize seroma formation. The donor wound was closed in multiple layers with 2-0 Vicryl interrupted sutures for Melani's fascial layer. The deep dermis and subcutaneous tissue was approximated with 3-0 Vicryl interrupted sutures. The skin was approximated with 3-0 V-lock unidirectional barbed running subcuticular suture. Histoacryl skin tissue adhesive was applied followed by a dry gauze dressing. Patient was then placed in the lateral position and her right back and arm and right flank area and right breast area were prepped and draped in the usual fashion. The moistened gauze and sterile towel were removed from the right breast at the time of the prepping. The dimensions of the right breast wound were measured as an oblique flap on the right back from inferomedial to superolateral. I extended the width of the flap to 12 cm because of her history of radiation therapy with the associated decrease in skin elasticity. The placement of the flap in the oblique position will help with the rotation of the flap into the breast defect. I also extended the length of the flap inferiorly to help cover the radiation defect. This extra extension of the flap inferiorly may have questionable vascularity. If there are any bruising in this most distal portion of the flap, I plan on having her undergo HBO treatments postoperatively as well. These markings were infiltrated with 1% Xylocaine and epinephrine. I made incisions through the back ellipse down through the subcutaneous tissue until the muscle was seen. I dissected the muscle medially to the trapezius muscle, superiorly to the teres major muscle, laterally to the anterior edge of the muscle and inferiorly to the lumbar region at the level of the posterior iliac spine. I made an incision to the muscle inferiorly and elevated the muscle from inferior to superior. I removed more muscle than usual in order to provide additional vascularized tissue in her radiated breast wound. The perforators were ligated using surgical clips. When I got close to the axilla, I dissected up to the thoracodorsal vascular pedicle. It was soft and intact without ill effects clinically from radiation. Also only a sentinel lymph node biopsy was done and not a full axillary dissection which can sometimes injure the thoracodorsal pedicle. I felt there was enough freeing up of the flap, then I dissected a subcutaneous tunnel to the lateral aspect of the breast. I then was able to rotate the latissimus dorsi flap through the subcutaneous tunnel into the defect. Hemostasis was obtained using electrocautery. The wound was irrigated with saline. I then placed 3 Amrit drains through a separate stab incision lateral to the breast and anterior to the back wound and secured to the skin using 3-0 nylon suture. Two would drain the back wound up toward the axilla and one would drain the breast. After the back wound was irrigated with saline, hemostasis was obtained using electrocautery. I then sprayed Geri absorbable hemostat into the back wound to minimize seroma formation. I sprayed 2 vials into the back wound. I then tried to close the back wound in multiple layers as much as I can. I used 2-0 Vicryl [id number] interrupted sutures for the underlying fascia. The deep dermis and subcutaneous tissue was approximated using 2-0 Vicryl interrupted sutures and 3-0 Monocryl interrupted sutures. The skin was approximated using 3-0 V-lock unidirectional barbed running subcuticular suture. Histoacryl skin tissue adhesive was applied. I was only able to close the ends of the wound. The central area was left open since there was too much tension. This central area will be skin grafted. I needed additional donor skin so I kourtney an ellipse of skin in the right flank and this area was infiltrated with xylocaine with epinephrine. An elliptical excision was made into the subcutaneous tissue. The subcutaneous tissue was removed from the undersurface of the dermis and some of the deeper dermis was removed thus fashioning a thick split thickness skin graft. It was placed on stretch and meshed with a 15 blade. The skin graft was placed in saline. The excess tissue was excised including some of the subcutaneous tissue to aid in wound closure. Hemostasis was obtained using electrocautery. The wound was irrigated with saline. I then sprayed the rest of the Geri absorbable hemostat into the defect to minimize seroma formation. I then closed the wound in multiple layers using 2-0 Vicryl [id number]-[id number]-oxyev interrupted sutures for the underlying Melani's fascia. Deep dermis and subcutaneous tissue was approximated using 2-0 Vicryl interrupted sutures and 3-0 Monocryl simple interrupted sutures. The skin was approximated using 3-0 V-Loc unidirectional barbed running subcuticular suture. Histoacryl skin tissue adhesive was applied, followed by Kerlix dressing. The thick split thickness skin graft was then applied into the central aspect of the back wound and secured to the skin edge with 3-0 Chromic simple interrupted sutures. 3-0 Chromic suturing was also used for central quilting stabilization. I then placed Bactroban ointment on the skin graft followed by Mepitel nonadherent dressing and moistened gauze as a compression dressing. Dry Kerlix gauze was then applied to the whole right breast wound/incision area. I then inset the latissimus dorsi flap into the right lateral breast wound and temporized the edge of the latissimus flap to the breast skin with 3-0 Monocryl sutures. Once again moistened gauze was applied to the breast wound followed by a sterile towel that was stapled to the skin. The patient was then placed in the supine position to inset the flap. The breast wound was prepped and draped in the usual fashion. I irrigated the breast wound with saline and hemostasis was obtained using electrocautery. When I rotated the flap, there was minimal tension from the axillary area. I had placed 3 Amrit drains through separate stab incisions inferiorly and laterally from the breast. 2 drained the back and one will drain the right breast. After irrigating the breast wound with saline and obtaining hemostasis with electrocautery, I then sprayed Geri absorbable hemostat into the right breast wound. I used one vial. I then inset the latissimus dorsi flap into the wound by first approximating the deep subcutaneous tissue with the muscle using 3-0 Vicryl [id number]-zi-gkhrr interrupted sutures. The deep dermis and subcutaneous tissue was approximated using 3-0 Monocryl interrupted sutures. At this point it was exceedingly difficult to close the inferior edge of the wound. So the options at this point included packing the wound which would not be a good termite helper solution because the scarring would not provide a good skin envelope for an implant in the future. However in order to close the inferior aspect of the breast wound, we will have to remove the sutures in the back wound since there is too much tension on the back closure. Therefore we will have to remove the sutures and the skin graft on the right breast wound and leave it open and place a VAC. This would take tension off the inferior skin edge and allow soft tissue closure on the right breast. She would be able to deal with a back wound better than a continuation of the breast wound. She was then placed back in the lateral position and the back was prepped and draped in the usual fashion. The sutures were removed and the skin graft was removed. When the wound was opened, hemostasis was obtained with electrocautery. The size of the back wound was 21 x 15 x 2 cm. Mepitel nonadherent dressing was applied to the wound followed by Kerlix gauze and Betadine followed by dry Kerlix gauze and ABD pads for a compression dressing. The VAC will be applied tomorrow. The patient was then placed supine and the right breast wound was prepped and draped in usual fashion. The inferior skin of the right breast and chest wall was looser and easier to work with despite chronic radiation effects, and I was able to close the latissimus dorsi flap inferiorly without tension. This was done with 3-0 Vicryl figure of eight interrupted sutures for the deep subcutaneous tissue with the muscle. The deep dermis and subcutaneous tissue was approximated with 3-0 Monocryl interrupted sutures. The skin was approximated with 4-0 Prolene simple interrupted and vertical mattress interrupted sutures and Histoacryl skin tissue adhesive. Kerlix gauze dressing was applied. At the end of the case, the latissimus flap was soft and viable. No evidence of vascular compromise. No evidence of hematoma. She tolerated the procedure well and was sent to PACU in satisfactory condition. She will be sent upstairs for postoperative care. She will be allowed to ambulate with assistance. She will keep her head elevated during the initial postoperative period. She will have drains in for several days and to maintain antibiotics until the drains are removed. Depending on the cultures, the antibiotic modification may be necessary. We will also check a prealbumin as I anticipate increased metabolic demands from the stress of the surgery and I will encourage nutritional supplementation with protein to help with the healing process. Also during the surgery when I first mobilized the latissimus dorsi flap, I had anesthesia give IV Solu-Medrol to minimize swelling within the vascular pedicle. At the end of the procedure, the latissimus flap was pink and soft and viable with no evidence of vascular compromise and no evidence of hematoma. Will continue the Solu-Medrol for 24 hours. Grafts/Implants Used: None. - Complications None. - Admit VTE Documentation VTE Present on Admission: No VTE Mechan Device Prophylaxis: SCD's VTE Pharm Prophylaxis ordered?: Yes Code Visit Surgery Charges CPT - 79365 ICD-10 - C50.911, F40.298, Z90.13, N65.1, T66.xxxS, L98.499, T86.828, Z17.1, Z87.891 14007 C50.911, N65.0, T66.xxxS, L98.499, T86.828, F40.298, Z90.13, Z17.1, Z87.891, N65.1 10/13/17 1157 <Electronically signed by Junior Whitman MD> Date Junior Whitman MD CC: Chris Juárez MD; Junior Whitman MD; Josué Price MD; [facility] Signed Observed: 10/11/2017 Status: F Source: [place] CULTURE, DEEP WOUND 9:30 AM [facility] REPOSITORY Gram Stain Gram Stain 1+ Gram positive rods Very Rare Gram positive cocci 1+ White Blood Cells 4+ Red Blood Cells Wound Culture Gram positive hector suggestive of a diptheroid. Possible skin contamination, further Identification and sensitivity will be performed only by physician's request. ORGANISM 1: Gram positive hector Amount Growth 3+ Cult, Anaerobic No anaerobic bacteria isolated. Performed By: #### M100.1500 #### [facility] [address] [place], [place], [id number] CBC AND DIFFERENTIAL Collected: 10/10/2017 Status: F Source: [place] 10:45 AM [facility] REPOSITORY TYPE CODE TESTS RESULT OUT OF REFERENCE UNITS RANGE LAB WBC 3.70-11.00 k/uL WBC 3.99 LAB RBC 3.90-5.20 m/uL Low RBC 3.54 LAB HGB 11.5-15.5 g/dL Low Hemoglobin 9.6 LAB HCT 36.0-46.0 % Low Hematocrit 30.0 LAB MCV 80.0-100.0 fL MCV 84.7 LAB MCH 26.0-34.0 pG MCH 27.1 LAB MCHC 30.5-36.0 g/dL MCHC 32.0 LAB RDWCV 11.5-15.0 % RDW-CV 14.3 LAB PLTCT 150-400 k/uL Platelet Count 339 LAB MPV 9.0-12.7 fL MPV 9.1 LAB ANEUT % Neut% 65.1 LAB AANEUT 1.45-7.50 k/uL Abs Neut 2.59 LAB ALYMP % Lymph% 22.6 LAB AALYMP 1.00-4.00 k/uL Low Abs Lymph 0.90 LAB AMONO % [place]% 8.5 LAB AAMONO <0.87 k/uL Abs [place] 0.34 LAB AEOS % Eosin% 3.5 LAB AAEOS <0.46 k/uL Abs Eosin 0.14 LAB ABASO % Baso% 0.3 LAB AABASO <0.11 k/uL Abs Baso <0.03 LAB AUNRBC 0 /100 WBC NRBCs 0.0 LAB ABNRBC <0.01 k/uL Absolute nRBC <0.01 LAB DTYP DTYPE Auto Diff Performed By: #### CBCDIF, FT4, BMP, TSH #### [facility] [place], [place] [address] FREE T4 Collected: 10/10/2017 Status: F Source: [place] 10:45 AM [facility] REPOSITORY TYPE CODE TESTS RESULT OUT OF RANGE REFERENCE UNITS LAB FT4 0.9-1.7 ng/dL Free T4 1.0 Performed By: #### CBCDIF, FT4, BMP, TSH #### [facility] [place], [place] [address] BASIC METABOLIC PANL Collected: 10/10/2017 Status: F Source: [place] 10:45 AM [facility] REPOSITORY TYPE CODE TESTS RESULT OUT OF REFERENCE UNITS RANGE LAB GLU 74-99 mg/dL Glucose 88 Result Comment: The [place] Diabetes Association (ADA) provides guidance for cutoff values for fasting glucose and random glucose. The ADA defines fasting as no caloric intake for at least 8 hours. Fas ting plasma glucose results between 100 to 125 mg/dL indicate increased risk for diabetes (prediabetes). Fasting plasma glucose results greater than or equal to 126 mg/dL meet the criteria for diagnosis of diabetes. In the absence of unequivocal hyperglycemia, results should be confirmed by repeat testing. In a patient with classic symptoms of hyperglycemia or hyperglycemic crisis, random plasma glucose results greater than or equal to 200 mg/dL meet the criteria for diagnosis of diabetes. Reference: Standards of Medical Care in Diabetes 2016, [place] Diabetes Association. Diabetes Care. 2016.39(Suppl 1). LAB BUN 7-21 mg/dL BUN 12 LAB CRET 0.58-0.96 mg/dL Creatinine 0.69 LAB NA 136-144 mmol/L Sodium 137 LAB K 3.7-5.1 mmol/L Potassium 3.8 LAB CL 97-105 mmol/L Chloride 99 LAB CO2 22-30 mmol/L CO2 Low 20 LAB AGAP 9-18 mmol/L Anion Gap 18 LAB CA 8.5-10.2 mg/dL Calcium, Total 9.3 LAB GFRAA eGFR- Amer. >60 LAB GFRNAA . eGFR-All Other Races >60 Result Comment: eGFR (Estimated GFR) Units of measure: mL/min/1.73 meters squared eGFR is derived from the reexpressed MDRD Study equation using the following parameters: serum creatinine, age, gender and race. The creatinine assay has been calibrated to be traceable to IDMS. An eGFR <60 mL/min/1.73m2 for >3 months is consistent with chronic kidney disease. Refer to KDOQI guidelines for clinical interpretation. In patients with unstable renal function, e.g. those with acute kidney injury, the eGFR may not accurately reflect actual GFR. Performed By: #### CBCDIF, FT4, BMP, TSH #### [facility] [address] [place], [place] [address] TSH Collected: 10/10/2017 Status: F Source: [place] 10:45 AM [facility] REPOSITORY TYPE CODE TESTS RESULT OUT OF RANGE REFERENCE UNITS LAB TSH 0.400-5.500 uU/mL TSH 1.360 Result Comment: If the patient is , TSH reference range varies by gestational period: First Trimester 0.100-2.500 uU/mL Second Trimester 0.200-3.000 uU/mL Third Trimester 0.300-3.000 uU/mL References: 1. Art L, Marcella M, Triston MCGOVERN, et al. Management of Thyroid Dysfunction during and : An Endocrine Society Clinical Practice Guideline. J Clin Endocrinol Metab, 2012:97:4951-4992. 2. Hussein APPIAH. Overview of thyroid disease in . UpToDate. 2016. Accessed on September 04, 2015. Performed By: #### CBCDIF, FT4, BMP, TSH #### [facility] [address] [place] [id number] PROGRESS Observed: 10/10/2017 Status: COMPLETED Source: [place] 10:39 AM [facility] REPOSITORY HNO ID: [id number] Author: Georgie George) Older Service: (none) Author Type: Nurse Practitioner Type: Progress Notes Filed: 10/10/2017 12:09 PM Note Text: CC: Patient presents with: Wants referral to cardiology: for rapid heart rate HPI Sharon Barragan is a 47 year old female who presents today for rapid heart rate. Patient had surgery on September 19 and HR was increased in hospital to 130s per patient. Since then she states at surgical follow up appointments it has been down but not back to her normal. She states has had 6 surgeries this year and her HR does go up but has never stayed up. She denies feeling any palpitations, chest pain, pressure, SOB or lightheadedness. States she does get dizzy on occasion unsure if this is due to the pain medication she is taking. Able to complete all ADLs without difficulty. Patient drinks about 4 bottles of water per day, 1-2 cups of coffee and 3 cans of diet coke. Denies taking any new medications. History of thyroid goiter and surgery, states they removed half of her thyroid and hasn't had any problems since. Patient is experiencing anxiety and stress at home but that has been ongoing, son is currently in rehab facility. States she also had fever about a week ago and again yesterday which improved. Saw Dr. Whitman yesterday and he completed a culture and is going to call her with the results. REVIEW OF SYSTEMS General: no chills and no night sweats Respiratory: no cough, no wheezing, no shortness of breath Cardiovascular: swelling in legs during the day PAST MEDICAL HISTORY Diagnosis Date - Atherosclerosis of aorta (HCC) 04/28/2016 Maternal CAD (Grandmother, and all sisters, 7 of 8 have heart problems). - Breast cancer of lower-outer quadrant of right female breast (HCC) 12/31/2015 - Chronic bilateral low back pain with bilateral sciatica 02/20/2017 Dr. Kalin Guevara - Clostridium difficile colitis 04/20/2016 - Fibroids 08/2015 u/s done at [facility] - Goiter, unspecified Goiter - Insomnia due to medical condition 04/04/2016 - Lumbar back sprain 2009 - Lymphedema 07/18/2016 - Nontoxic uninodular goiter 03/07/2006 - Open wound of chest wall 05/23/2017 Status post TRAM flap, right chest. - Severe episode of recurrent major depressive disorder, without psychotic features ([facility]) 04/04/2016 - Thyroid cancer ([facility]) 03/2006 PAST SURGICAL HISTORY Procedure Laterality Date - BREAST RECONSTRUCT W TRAM 1 PEDICL Right 05/23/2017 with debridement - EVACUATION HEMATOMA Right 05/05/2017 - LIGATE FALLOPIAN TUBE 1994 Tubal ligation - MASTECTOMY, MODIFIED RADICAL Bilateral 01/12/16 - THYROIDECTOMY SUBTOTAL/PARTIAL 2006 - TOTAL ABDOM HYSTERECTOMY 10/01/2015 - TRAM/ARIANNA BREAST FLAP UNILATERAL Right 05/02/2017 - TUNNEL VAD W SUB Q PORT >=5 02/12/2016 removed ALLERGIES Hayfever [Homeopathic Products]; Poultry [Other] MEDICATIONS traZODone (DESYREL) 50 mg tablet Take 1 tablet by mouth daily at bedtime. oxyCODONE-acetaminophen (PERCOCET) 5-325 mg tablet Take 1 tablet by mouth every 4 hours as needed. diazePAM (VALIUM) 5 mg tablet Take 5 mg by mouth every 6 hours as needed. sertraline (ZOLOFT) 50 mg tablet Take 3 tablets by mouth once daily. acetaminophen (TYLENOL EXTRA STRENGTH) 500 mg tablet Take 500 mg by mouth as needed. FAMILY HISTORY Problem Relation Age of Onset - Heart Maternal Grandmother - Diabetes Maternal Grandmother - Breast Cancer Paternal Aunt dx 30's-40's; father's maternal half-sister - None Mother - Breast Cancer Mother 68 - Mental Health [OTHER] Father - Unknown [OTHER] Father - Cancer Sister Uncertain Type - None Sister - Leukemia [OTHER] Paternal Uncle 42 Social History Substance Use Topics - Smoking status: Former Smoker Packs/day: 1.00 Years: 30.00 Types: Cigarettes Quit date: 01/02/2016 - Smokeless tobacco: Never Used Comment: Pt smoked on AND off x 30 years. - Alcohol use No Comment: Rare. PHYSICAL EXAM BP 122/70 Pulse 104 Temp 36.3 ?C (97.4 ?F) (Temporal Artery) Resp 16 Wt 83.9 kg (185 lb) LMP 08/31/2015 (Exact Date) SpO2 97% BMI 36.13 kg/m? General Appearance: well appearing, in no acute distress, alert Neck: Thyroid normal size and symmetric without palpable nodules Lymph nodes: No cervical lymphadenopathy Lungs: Lungs clear to auscultation. No wheezing, rhonchi, rales Heart: RRR without murmur, gallop, or rubs. INFLUENZA(1) due on 11/18/2017 DIABETES SCREEN due on 07/31/2020 PAP EVERY 5 YEARS due on 09/09/2020 HPV EVERY 5 YEARS due on 09/09/2020 LIPID SCREEN due on 04/23/2021 DTAP,TDAP,TD(2 - Td) due on 08/28/2021 ASSESSMENT/PLAN: 1. Tachycardia - ICD9: 785.0, ICD10: R00.0 (primary diagnosis) No alarm symptoms or exam findings. - Etiology unknown. Differential diagnosis include thyroid dysfunction, infection, stress/anxiety, cardiac or metabolic abnormalities - ECG COMPLETE W INTERPRETATION today sinus tachycardia otherwise normal Work-up with: - ECHO - HOLTER MONITOR 24 HOUR - CBC + DIFF - BASIC METABOLIC PNL - TSH BLD - T4 FREE/FREE THYROX - follow up pending results 2. Palpitations - ICD9: 785.1, ICD10: R00.2 -Plan as above 3. Stress at home - ICD9: V61.9, ICD10: F43.9 -Patient states doing well on medication and feels dealing well with stressors. -Follow up as needed Prescription instructions reviewed with patient as applicable. Potential red flag symptoms discussed with the patient. Reviewed appropriate action plan to take if red flag symptoms occur. Patient agreeable to treatment plan. CNOV Observed: 10/10/2017 Status: COMPLETED Source: [place] 10:00 AM [facility] REPOSITORY Office Visit (INTMWS) SHARON BARRAGAN ([id number]) 1970 F Date Time Provider Department 10/10/17 10:00 AM GEORGIE SCHULTZ ([place]) INTMWS During your visit today, we recorded the following information about you: Temperature Pulse Respiration Blood pressure 97.4 degrees 104/minute 16/minute 122/70 Weight 83.9 kg Georgie Schultz APRN.CNP 10/10/2017 10:35 AM Signed Call office or go to ER if you develop worsening palpitations, shortness of breath, chest pain Georgie Schultz APRN.CNP 10/10/2017 12:09 PM Signed CC: Patient presents with: Wants referral to cardiology: for rapid heart rate HPI Sharon Barragan is a 47 year old female who presents today for rapid heart rate. Patient had surgery on September 19 and HR was increased in hospital to 130s per patient. Since then she states at surgical follow up appointments it has been down but not back to her normal. She states has had 6 surgeries this year and her HR does go up but has never stayed up. She denies feeling any palpitations, chest pain, pressure, SOB or lightheadedness. States she does get dizzy on occasion unsure if this is due to the pain medication she is taking. Able to complete all ADLs without difficulty. Patient drinks about 4 bottles of water per day, 1-2 cups of coffee and 3 cans of diet coke. Denies taking any new medications. History of thyroid goiter and surgery, states they removed half of her thyroid and hasn't had any problems since. Patient is experiencing anxiety and stress at home but that has been ongoing, son is currently in rehab facility. States she also had fever about a week ago and again yesterday which improved. Saw Dr. Whitman yesterday and he completed a culture and is going to call her with the results. REVIEW OF SYSTEMS General: no chills and no night sweats Respiratory: no cough, no wheezing, no shortness of breath Cardiovascular: swelling in legs during the day PAST MEDICAL HISTORY Diagnosis Date - Atherosclerosis of aorta (HCC) 04/28/2016 Maternal CAD (Grandmother, and all sisters, 7 of 8 have heart problems). - Breast cancer of lower-outer quadrant of right female breast (HCC) 12/31/2015 - Chronic bilateral low back pain with bilateral sciatica 02/20/2017 Dr. Kalin Guevara - Clostridium difficile colitis 04/20/2016 - Fibroids 08/2015 u/s done at [facility] - Goiter, unspecified Goiter - Insomnia due to medical condition 04/04/2016 - Lumbar back sprain 2009 - Lymphedema 07/18/2016 - Nontoxic uninodular goiter 03/07/2006 - Open wound of chest wall 05/23/2017 Status post TRAM flap, right chest. - Severe episode of recurrent major depressive disorder, without psychotic features ([facility]) 04/04/2016 - Thyroid cancer ([facility]) 03/2006 PAST SURGICAL HISTORY Procedure Laterality Date - BREAST RECONSTRUCT W TRAM 1 PEDICL Right 05/23/2017 with debridement - EVACUATION HEMATOMA Right 05/05/2017 - LIGATE FALLOPIAN TUBE 1994 Tubal ligation - MASTECTOMY, MODIFIED RADICAL Bilateral 01/12/16 - THYROIDECTOMY SUBTOTAL/PARTIAL 2006 - TOTAL ABDOM HYSTERECTOMY 10/01/2015 - TRAM/ARIANNA BREAST FLAP UNILATERAL Right 05/02/2017 - TUNNEL VAD W SUB Q PORT >=5 02/12/2016 removed ALLERGIES Hayfever [Homeopathic Products]; Poultry [Other] MEDICATIONS traZODone (DESYREL) 50 mg tablet Take 1 tablet by mouth daily at bedtime. oxyCODONE-acetaminophen (PERCOCET) 5-325 mg tablet Take 1 tablet by mouth every 4 hours as needed. diazePAM (VALIUM) 5 mg tablet Take 5 mg by mouth every 6 hours as needed. sertraline (ZOLOFT) 50 mg tablet Take 3 tablets by mouth once daily. acetaminophen (TYLENOL EXTRA STRENGTH) 500 mg tablet Take 500 mg by mouth as needed. FAMILY HISTORY Problem Relation Age of Onset - Heart Maternal Grandmother - Diabetes Maternal Grandmother - Breast Cancer Paternal Aunt dx 30's-40's; father's maternal half-sister - None Mother - Breast Cancer Mother 68 - Mental Health [OTHER] Father - Unknown [OTHER] Father - Cancer Sister Uncertain Type - None Sister - Leukemia [OTHER] Paternal Uncle 42 Social History Substance Use Topics - Smoking status: Former Smoker Packs/day: 1.00 Years: 30.00 Types: Cigarettes Quit date: 01/02/2016 - Smokeless tobacco: Never Used Comment: Pt smoked on AND off x 30 years. - Alcohol use No Comment: Rare. PHYSICAL EXAM BP 122/70 Pulse 104 Temp 36.3 ?C (97.4 ?F) (Temporal Artery) Resp 16 Wt 83.9 kg (185 lb) LMP 08/31/2015 (Exact Date) SpO2 97% BMI 36.13 kg/m? General Appearance: well appearing, in no acute distress, alert Neck: Thyroid normal size and symmetric without palpable nodules Lymph nodes: No cervical lymphadenopathy Lungs: Lungs clear to auscultation. No wheezing, rhonchi, rales Heart: RRR without murmur, gallop, or rubs. INFLUENZA(1) due on 11/18/2017 DIABETES SCREEN due on 07/31/2020 PAP EVERY 5 YEARS due on 09/09/2020 HPV EVERY 5 YEARS due on 09/09/2020 LIPID SCREEN due on 04/23/2021 DTAP,TDAP,TD(2 - Td) due on 08/28/2021 ASSESSMENT/PLAN: 1. Tachycardia - ICD9: 785.0, ICD10: R00.0 (primary diagnosis) No alarm symptoms or exam findings. - Etiology unknown. Differential diagnosis include thyroid dysfunction, infection, stress/anxiety, cardiac or metabolic abnormalities - ECG COMPLETE W INTERPRETATION today sinus tachycardia otherwise normal Work-up with: - ECHO - HOLTER MONITOR 24 HOUR - CBC + DIFF - BASIC METABOLIC PNL - TSH BLD - T4 FREE/FREE THYROX - follow up pending results 2. Palpitations - ICD9: 785.1, ICD10: R00.2 -Plan as above 3. Stress at home - ICD9: V61.9, ICD10: F43.9 -Patient states doing well on medication and feels dealing well with stressors. -Follow up as needed Prescription instructions reviewed with patient as applicable. Potential red flag symptoms discussed with the patient. Reviewed appropriate action plan to take if red flag symptoms occur. Patient agreeable to treatment plan. Referring Provider: SELF [[id number]] Allergies As of Date: 10/10/2017 Noted Allergy Reaction HAYFEVER (HOMEOPATHIC PRODUCTS) 03/07/2006 poultry [Other] 03/07/2006 Comments: [place], chicken Date Reviewed: 10/10/2017 Reviewed by: Kanwal Hurt Patient Transporter - Fully Assessed Reason for Visit: Wants referral to cardiology [Other] Cmt: for rapid heart rate Primary Visit Diagnosis:Tachycardia [R00.0] Other Visit Diagnoses:Palpitations [R00.2] Stress at home [F43.9] Order(s):ECG COMPLETE W INTERPRETATION [ECG01] Order #: [id number] FUTURE ECHO [194422] Order #: [id number]: 1 FUTURE HOLTER MONITOR 24 HOUR [0983829] Order #: [id number] FUTURE CBC + DIFF [SQCBCDIF] Order #: [id number] FUTURE BASIC METABOLIC PNL [SQBMP] Order #: [id number] FUTURE TSH BLD [SQTSH] Order #: [id number] FUTURE T4 FREE/FREE THYROX [SQFT4] Order #: [id number] FUTURE Prescriptions as of 10/10/2017 Sig: TRAZODONE 50 MG TABLET Take 1 tablet by mouth daily * OXYCODONE-ACETAMINOPHEN 5 MG-* Take 1 tablet by mouth every * DIAZEPAM 5 MG TABLET Take 5 mg by mouth every 6 ho* SERTRALINE 50 MG TABLET Take 3 tablets by mouth once * ACETAMINOPHEN 500 MG TABLET Take 500 mg by mouth as neede* Problem List As Of Date 10/10/2017 Noted Resolved 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] INVALID FOR*02/20/2017 Sciatica of right side [M54.31] INVALID FOR*02/04/2016 Lumbar sprain and strain INVALID FOR*02/04/2016 SI (sacroiliac) joint inflammation (HCC) [M46.1]INVALID FOR*02/04/2016 Lumbar radicular pain [M54.16] INVALID FOR*02/04/2016 Fibroid uterus [D25.9] INVALID FOR*04/04/2016 Breast cancer of lower-outer quadrant of right *INVALID FOR* Severe episode of recurrent major depressive di*INVALID FOR* Chest wall pain following surgery [R07.89, G89.*INVALID FOR*06/15/2016 Priority: Moderate Financial difficulties [Z59.8] INVALID FOR* Status post mastectomy [Z90.10] INVALID FOR* Insomnia due to medical condition [G47.01] INVALID FOR* Stress at home [F43.9] INVALID FOR* History of Clostridium difficile [XMX0312] INVALID FOR*02/20/2017 More... Atherosclerosis of aorta (HCC) [I70.0] INVALID FOR* More... Palpitations [R00.2] INVALID FOR* Lymphedema [I89.0] INVALID FOR* Chronic bilateral low back pain with bilateral *INVALID FOR* More... Bilateral plantar fasciitis [M72.2] INVALID FOR* Open wound of chest wall [S21.109A] INVALID FOR* More... Other instructions from your clinician: Call office or go to ER if you develop worsening palpitations, shortness of breath, chest pain Encounter Status:Closed by GEORGIE SCHULTZ FOOD SERVER on 10/10/17 ECG COMPLETE W Observed: 10/10/2017 Status: F Source: [facility] 9:55 AM [facility] REPOSITORY NAME : SHARON BARRAGAN PID : [id number] : 1970 Gender : Female Race : ORD : [id number] Procedure Date : Oct 10 2017 09:55:08 Edit Date : Oct 12 2017 16:52:27 Diagnosis:SINUS TACHYCARDIA OTHERWISE NORMAL ECG Confirmed by KOREY RAY D.O. ([id number]) on 10/12/2017 4:52:15 PM Ventricular Rate : 102 BPM Atrial Rate : 102 BPM P-R Interval : 140 ms QRS Duration : 72 ms Q-T Interval : 352 ms QTC Calculation(Bezet) : 458 ms P Thornton : 10 degrees R Thornton : -7 degrees T Thornton : 12 degrees Test Reason : Location : 185 : [facility] Overread By : KOREY RAY D.O. Edited By : KOREY RAY D.O. Referred By : GEORGIE SCHULTZ [facility] Observed: 10/07/2017 Status: F Source: [place] 10:46 PM [facility] REPOSITORY [facility] Medical Records Department [address] [place] [address] Discharge Instruction 10/07/17 2245 MR#: [id number] Acct: [id number] Name: ALEJANDRA BARRAGANDuarte Holland Rep #: [id number] : 1970 47 From: Manav Olmos MD PCP: Josué Price MD Status: REG ER ED Disposition - Plan for ED Patient: Disposition: Home or Assisted Living Chief Complaint: Wound Instructions: ED Packing Removal Replacement Referrals: Josué Price MD [Primary Care Provider] - What to do if you have Problems For any increased pain, shortness of breath, bleeding, nausea or vomiting, chest pain, or any unexpected problems, contact your Primary Care Provider. Call [facility] ([phone]) or report to the closest Emergency Room. Call 911 if necessary. 10/07/17 2246 <Electronically signed by Manav Olmos MD> Date Manav Olmos MD Cosigner Signature (If Indicated): Date CC: Josué Price MD EMERGENCY DEPARTMENT Observed: 10/07/2017 Status: F Source: [place] SUMMARY 10:45 PM [facility] REPOSITORY [facility] Medical Records Department [address] [place] [id number] Emergency Department Summary 10/07/17 2243 MR#: [id number] Acct: [id number] Name: SHARON BARRAGAN Rep #: [id number] : 1970 47 From: Manav Olmos MD PCP: Josué Price MD Status: REG ER - ER Visit Summary Date of Service: 10/07/17 Chief Complaint: Wound VAC issues, blistering History of Present Illness: The patient is a 47 F who complains of pain around her wound VAC. She had this placed 2 weeks ago after a latissimus flap due to a history of breast cancer. Her wound VAC was changed yesterday and after that she has been having a lot of pain around this area. She is wondering if there is some blisters around the edge. This is been followed by Dr. Whitman. She denies any fevers. Physical Examination: Vital signs are reviewed. Back exam reveals a right latissimus wound with a wound VAC in place. Irritated skin around it. No bloody or purulent drainage. It is tender to palpation around the edges. Test Results: None performed Emergency Department Course and Treatment: I discussed this with Dr. Whitman. It looks like the wound VAC is on normal skin around the edges. This is likely irritating the skin. He recommended we change the wound VAC and put a smaller sponge. We will do this and put skin irritant protectant around the wound edges. Dr. Whitman recommended putting Adaptic around the wound edges as well. We will do this and she will follow- up in [address] Whitman Treatment Plan: [] Disposition: Discharge Impression: Wound VAC complications This note was generated with Pairination software. It may contain incorrect words, spelling, and punctuation that were not noted in review of the chart prior to signing ED Disposition - Plan for ED Patient: Chief Complaint: Wound Referrals: Josué Price MD [Primary Care Provider] - What to do if you have Problems For any increased pain, shortness of breath, bleeding, nausea or vomiting, chest pain, or any unexpected problems, contact your Primary Care Provider. Call [facility] ([phone]) or report to the closest Emergency Room. Call 911 if necessary. 10/07/173 <Electronically signed by Manav Olmos MD> Date Manav Olmos MD Cosigner Signature (If Indicated): Date CC: Josué Price MD DISCHARGE SUMMARY Observed: 09/28/2017 Status: F Source: [place] 1:25 AM [facility] REPOSITORY [facility] Medical Records Department [address] [place] [address] Discharge Summary 09/25/172231 MR#: [id number] Acct: [id number] Name: SHARON BARRAGAN Rep #: [id number] : 1970 47 From: Junior Whitman MD PCP: Josué Price MD Status: DIS IN Y Location: MS3 [id number] Discharge Date and Diagnosis Date of Admission: 09/19/17 Date of Discharge: 09/25/17 - Primary Discharge Diagnosis Right breast cancer. 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 Anemia of chronic disease, acute on chronic. 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 Disproportion reconstructed breasts. Cancerphobia left breast. Compromised TRAM flap right breast reconstruction with partial loss. Smoker, quit for the surgery. History of hematoma right breast reconstruction and chest wall. Estrogen receptor negative status [ER-]. Hospital Course and Treatment Imaging Results: None. Consultations 09/22/17 06:45 Consult: Onc/Wound/joint machine operator Routine Comment: Reason for Consult:: ? VAC placement Operations: - - 09/19/17 - 1. Revision right breast reconstruction with excision nonhealing radiation ulcer scar contour deformity and lateral rotation TRAM flap. 2. Delayed right breast reconstruction with placement of latissimus dorsi myocutaneous flap. Procedures: Wound vac placement Summary of Care Provided: 47 year old woman presents for further evaluation for breast reconstruction. Her initial bilateral mastectomy was on 01/12/16. She underwent IV chemotherapy initially and this was followed by radiation therapy to the right breast. She finished the radiation therapy in 10/03. She underwent a TRAM flap in 05/07. She developed a hematoma in the TRAM flap followed by some TRAM flap compromise. About 20% of the flap was salvaged after drainage of a postop hematoma and after debridement of some compromise to the TRAM flap. She underwent wound care with the VAC and then with Silver dressing changes along with antibiotics and HBO therapy to try and salvage the right breast reconstruction and chest wall in preparation for further breast reconstruction. She was taken to the OR on 09/19/17 where she underwent revision right breast reconstruction with excision nonhealing radiation ulcer scar contour deformity and lateral rotation TRAM flap and delayed right breast reconstruction with placement of latissimus dorsi myocutaneous flap. She tolerated the procedure well. Her postop care was stable. Her latissimus dorsi flap remained stable throughout her hospital stay. The flap was pink and soft and viable. A small amount of bruising was seen distally that did not progress. She will need HBO treatments after discharge to try and salvage that small area of the flap distally. She required IV analgesia for several days because of the pain. Also needed Valium that had to be increased when the VAC was applied. Before the VAC could be applied, one of the breast drains was visible in the back wound and was removed. Her Hgb had decreased from 10.7 to 8.8 postoperatively. She had some blood loss (200 ml) and IV dilution. She was ahead in her I's/O's by over 6000 ml. She was started on Iron supplementation. She was given a dose of Lasix because of her fluid retention which increased urine output and her Hgb increased to 9.6 for discharge. Her drainage output ranged from 310 ml down to 15 ml on the day of discharge. Will remove the drain in the office. She was weaned to oral analgesics by the 6th postop day and was discharged home in satisfactory condition. She will resume her HBO treatments later this week. She will [facility] in 2 weeks. She will followup in my office in one week. Scripts were written for Percocet for pain (60 tabs) and for Valium for spasm, 10 mg, (30 tabs). Scripts were written for Phenergan for nausea (30 tabs) and a refill and for Colace for constipation (60 tabs). Scripts were written for Levaquin for 14 days and for Iron supplements daily (30 tabs) and 2 refills. Discharge Diet: No Restrictions, - - encourage nutritional supplementation with protein to help the healing process. Discharge Activity: May not drive while taking narcotic pain medications., May Not Shower - until the drain is removed and then on the days the vac is changed., - - keep head elevated. no heavy lifting. May resume sexual activity in: 10-14 days Weight Bearing Status: Weight bearing as tolerated Keep extremity elevated above heart level: - - elevate head. Call your doctor if your incision/area has: Continuous Slow Oozing, Sudden Increased Bleeding, Increased Pain/ Swelling, Increased Redness, Foul Smelling Discharge, Swelling at the incision site Call your doctor if you observe: Fever of 101 or Higher, Coldness, Increased Pain, Shortness of breath, Chest pain, Calf discomfort, Uncontrolled pain Suture Line Care: - - dry dressings daily. vac changes to back three times per week at 150 mmHg continuous suction. Change Dressing in (Days):: 1 - dry dressings daily. vac changes three times per week. Cleanse incision/area with: - - may get incisions wet in the shower after the drain is removed. after drain removed, may cleanse the back wound with soap and water on the days the vac is changed. Drain: Suction - amrit drain to bulb suction. empty and record output daily. Additional Dressing/Incision Instructions:: Home Health to assist with VAC changes to back three times per week at 150 mmHg continuous suction. may cleanse the back wound with soap and water on the days the vac is changed. Home Medications: Medications to take at Discharge Sertraline HCl [Zoloft] 150 mg PO DAILY@0600 09/12/17 traZODone [Desyrel] 50 mg PO QHS 09/12/17 Diazepam [Valium] 10 mg PO 4X/DAY PRN PRN 7 Days #30 tab 09/25/17 Docusate Sodium [Colace] 100 mg PO BID #60 cap 09/25/17 Iron Polysaccharide Complex [Ferrex 150] 150 mg PO DAILYCM #30 cap 09/25/17 Oxycodone HCl/Acetaminophen [Percocet 5-325] 1 - 2 tab PO 4X/DAY PRN PRN 7 Days #60 tab 09/25/17 levoFLOXacin tablet [Levaquin tablet] 500 mg PO .QDAILY #14 tab 09/25/17 proMETHazine tablet [Phenergan tablet] 25 mg PO 4X/DAY PRN PRN #30 tab 09/25/17 fentanyl 50 mcg/hr transdermal patch 1 patch TRANSDERMAL Q72H #5 ea 09/27/17 Following Prescrptions Were Given to Patient: Diazepam [Valium] 10 mg PO 4X/DAY PRN PRN 7 Days #30 tab PRN Reason: Spasms Iron Polysaccharide Complex [Ferrex 150] 150 mg PO DAILYCM #30 cap levoFLOXacin tablet [Levaquin tablet] 500 mg PO .QDAILY #14 tab Oxycodone HCl/Acetaminophen [Percocet 5-325] 1 - 2 tab PO 4X/DAY PRN PRN 7 Days #60 tab PRN Reason: Pain proMETHazine tablet [Phenergan tablet] 25 mg PO 4X/DAY PRN PRN #30 tab PRN Reason: NAUSEA/VOMITING Docusate Sodium [Colace] 100 mg PO BID #60 cap Primary Care Physician: Josué Price MD [Primary Care Provider] - Please Follow Up With: Junior Whitman MD - will start HBO this week. When: 10/10/15 at [facility]. Call [phone] for appt. Please Follow Up With: Junior Whitman MD When: one week. call [phone] for appt. Disposition: Home with Home Health Minutes spent on discharge:: 35 Patient Condition:: Stable Medical Necessity - Tobacco Use Smoking Status: Former smoker Meaningful Use Info Meaningful Use Diagnoses (Choose all that apply): None applicable 09/28/17 0125 <Electronically signed by Junior Whitman MD> Date Junior Whitman MD Cosigner Signature (if applicable): Date CC: Chris Juárez MD; Junior Whitman MD; Josué Price MD; [facility] Signed HISTORY AND PHYSICAL Observed: 09/26/2017 Status: F Source: [place] [facility] 12:17 AM [facility] REPOSITORY [facility] Medical Records Department [address] [place] [id number] History and Physical 09/18/17 2100 MR#: [id number] Acct: [id number] Name: SHARON BARRAGAN Rep #: [id number] : 1970 47 From: Junior Whitman MD PCP: Josué Price MD Status: DIS IN Y Location: [facility]3 [id number] History and Physical Date of Admission: 09/19/17 HISTORY OF PRESENT ILLNESS 47 year old woman presents for further evaluation for breast reconstruction. Her initial bilateral mastectomy was on 01/12/16. She underwent IV chemotherapy initially and this was followed by radiation therapy to the right breast. She finished the radiation therapy in 10/03. She underwent a TRAM flap in 05/07. She developed a hematoma in the TRAM flap followed by some TRAM flap compromise. About 20% of the flap was salvaged after drainage of a postop hematoma and after debridement of some compromise to the TRAM flap. She underwent wound care with the VAC and then with Silver dressing changes along with antibiotics and HBO therapy to try and salvage the right breast reconstruction and chest wall in preparation for further breast reconstruction. She presents today for further evaluation and treatment. 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 late effect radiation right breast reconstruction. 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 compromised TRAM flap right breast reconstruction with partial loss. hematoma right breast reconstruction and chest wall. PAST SURGICAL HISTORY Thyroidectomy, subtotal Tubal ligation Hysterectomy with bilateral salpingectomy and left oophorectomy - 10/02 prophylactic mastectomy left breast by Dr. Whitman - 01/12/16 mastectomy right breast and bilateral sentinel node biopsies by Dr. Juárez - 01/12/16 port placement - 02/02 delayed right breast reconstruction with unipedicle contralateral TRAM flap and abdominal wall reconstruction with placement of Strattice acellular dermal matrix graft (100 cm2) and revision radiation scar contour deformity right breast with multiple W-plasties (40 cm2) - 05/02/17 surgical preparation right breast TRAM flap reconstruction with incision and drainage and evacuation hematoma - 05/05/17 surgical preparation right breast reconstruction with excisional debridement compromised TRAM flap (256 cm2) - 05/23/17 MEDICATIONS Zoloft. Valium. Mobic. Trazodone. Norvasc. Calcium Carbonate. ALLERGIES Poultry. FAMILY HISTORY negative for breast cancer. SOCIAL HISTORY Patient is a former smoker. Passive smoke exposure - no Alcohol Use - no Regular Exercise - yes Passive smoke exposure - yes REVIEW OF SYSTEMS General - Denies fever and fatigue. History of weight loss. Eyes - Denies eye pain. ENT - Denies nasal congestion and sore throat. CV - Denies chest pain or discomfort, fatigue, lightheadedness and shortness of breath with exertion. Resp - Denies cough and shortness of breath. Patient is a former smoker. GI - Denies nausea, vomiting, diarrhea and constipation. - Denies blood in urine and urinary frequency. MS - Complains of back pain. Denies joint pain, stiffness, muscle weakness and arthritis. Derm - Denies suspicious lesions and skin cancer. Has nonhealing radiation ulcer right chest wall and breast reconstruction. Neuro - Denies poor balance and headaches. Psych - Complains of anxiety. Denies depression. Endo - Denies excessive urination and excessive thirst. Has thyroid disease. Has history of right breast cancer. Heme - Denies bleeding and abnormal bruising. PHYSICAL EXAMINATION General: well developed, well nourished, in no acute distress. Her bra size was 36 C prior to her breast cancer. Head: normocephalic and atraumatic. Eyes: PERRL. EOMI. Neck: no masses, thyromegaly, or abnormal cervical nodes. Breasts: Mastectomy vertical incision on the left breast is healed. No breast masses palpated. On the right breast there is a nonhealing radiation ulcer. Good granulation tissue is present. Skin edges are firm from radiation effects. Ulcer measures 7.5 x 8.5 x 2 cm. Some mild discoloration. There is the remnant of her TRAM flap inferior and medially, about 20%. Flap is soft. No axillary adenopathy. Breast diameter is 12 cm bilaterally. Lungs: clear bilaterally to auscultation. Heart: regular rate and rhythm. Abdomen: normal bowel sounds; no hepatosplenomegaly no ventral,umbilical hernias or masses noted. There is healed TRAM flap scar in lower anterior abdominal wall. Had some residual seroma postop that required an ultrasound guided drainage. Pulses: pulses normal in all 4 extremities. Extremities: no clubbing, cyanosis, edema, or deformity noted with normal full range of motion of all joints. Neurologic: cranial nerves II-XII grossly intact. Skin: no rashes. Cervical Nodes: no significant adenopathy. Axillary Nodes: no significant adenopathy. Inguinal Nodes: no significant adenopathy. Psych: alert and cooperative; normal mood and affect; normal attention span and concentration. ASSESSMENT 1. Nonhealing radiation ulcer right chest wall and breast reconstruction, 2. Right breast cancer. 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 5. Disproportion reconstructed breasts. 6. Late effect radiation right breast. 7. 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 8. Compromised TRAM flap right breast reconstruction with partial loss. 9. History of hematoma right breast reconstruction and chest wall. 10. Estrogen receptor status negative. 11. Former smoker. PLAN Patient has finished her HBO treatments to help salvage the compromised TRAM flap and the underlying radiation soft tissue radionecrosis. She presents to discuss further breast reconstruction. Nonradiated tissue needs to be brought in to the right breast reconstruction and chest wall defect. Will use the latissimus dorsi myocutaneous flap. The patient is not interested in a saline tissue inside parts sales. She would want to go straight to the breast implant at the appropriate time. The issue is in the size of the latissimus dorsi flap. If I plan a regular sized flap which would allow closure of the donor site on the back, we may not have enough soft tissue coverage for the right sized implant. Therefore a smaller implant would be needed or the placement of a saline tissue inside parts sales would be done. Even then, there is no guarantee the inside parts sales will stretch the latissimus as much as we would like since there is still some radiated tissue present. Some stretch and expansion would occur. I just don't know how much. If I plan a larger sized flap which would not allow closure of the donor site on the back, we would need to skin graft the donor site but the trade off would be extra nonradiated tissue that would give us more options with the reconstruction. The skin graft can always be dealt with in the future with serial excision versus a two stage placement of saline tissue expanders to stretch the surrounding skin prior to wound closure on the back. Patient stated that she has been through a lot and wants a nice shaped breast and is willing to be safe and take extra skin with the latissimus to give us more breast reconstruction options in the future. She would not mind the skin graft on her back and knows that if she changes her mind in the future and doesn't like the skin graft then revision surgeries can be done. It is much more difficult to revise the breast if not enough non radiated tissue is not brought forth. I anticipate a radiation scar contracture contour deformity that would necessitate multiple W-plasty reconstruction to maximize the contour of the right breast and minimize some of the radiation scar contracture forces. She will have drains in for several days as well as a binder to keep the back from forming a seroma. She will be maintained on antibiotics at least until the drains are removed. She will be admitted to the floor after the surgery for at least 3 days maybe up to 5. She will keep her head elevated during the initial postop period. Also in the postop period, she would resume HBO treatments to maximize healing from the soft tissue radionecrosis from her radiation therapy. After healing has occurred, in 2-3 months can consider additional breast reconstruction with the placement of implants on both sides. May need to revise skin on the left. Depending on the breast pockets at that time and depending on her wishes, a tissue inside parts sales may be placed to make the breast pocket a little bigger for symmetry purposes. If she wants to hold off on a tissue inside parts sales and is willing to accept a slightly smaller breast as long as symmetry is reasonable, then would proceed with breast implants on both sides and likely would have to make the skin envelope on the left a little smaller. Then 2-3 months after that, can consider any revision that may be necessary and to consider nipple reconstruction at that time. Her goal is to try and have everything done by the end of February so that she can get back to work. At the time of surgery, will treat perioperatively with Vancomycin and Levaquin. At surgery, would send tissue cultures as well as to send tissue to Pathology for analysis to rule out carcinoma. A positive culture may necessitate antibiotic modification. The patient was informed of the risks and complications of the procedure including alternatives to surgery. These were discussed with the patient personally. The patient voices understanding and wishes to proceed. Some of the risks and complications were included in a form from the [employer]. Encouraged the patient to stop smoking as it may have deleterious effects on wound healing. She states she has stopped smoking after her breast cancer diagnosis. 09/26/17 0017 <Electronically signed by Junior Whitman MD> Date Junior Whitman MD Cosign Signature: Date (if applicable) CC: Chris Juárez MD; Junior Whitman MD; Josué Price MD; [facility] Signed DISCHARGE INSTRUCTION Observed: 09/25/2017 Status: F Source: [place] 12:43 PM [facility] REPOSITORY [facility] Medical Records Department [address] [place] [address] Instructions for Home/Discharge Instructions 09/25/17 1237 MR#: [id number] Acct: [id number] Name: SHARON BARRAGAN Rep #: [id number] : 1970 47 From: Junior Whitman MD PCP: Josué Price MD Status: ADM IN You will use the following diet at home:: No restrictions, Other - encourage nutritional supplementation with protein to help the healing process. Discharge Activity: May not drive while taking narcotic pain medications., May Not Shower - until the drain is removed and then on the days the vac is changed., - - keep head elevated. no heavy lifting. May resume sexual activity in: 10-14 days Weight Bearing Status: Weight bearing as tolerated Lifting Restrictions: 20 lbs. Keep extremity elevated above heart level: - - elevate head. Call your doctor if your incision/area has: Continuous Slow Oozing, Sudden Increased Bleeding, Increased Pain/ Swelling, Increased Redness, Foul Smelling Discharge, Swelling at the incision site Call your doctor if you observe: Fever of 101 or Higher, Coldness, Increased Pain, Shortness of breath, Chest pain, Calf discomfort, Uncontrolled pain Suture Line Care: - - dry dressings daily. vac changes to back three times per week at 150 mmHg continuous suction. Change Dressing in (Days):: 1 - dry dressings daily. vac changes three times per week. Cleanse incision/area with: - - may get incisions wet in the shower after the drain is removed. after drain removed, may cleanse the back wound with soap and water on the days the vac is changed. Drain: Suction - amrit drain to bulb suction. empty and record output daily. Additional Dressing/Incision Instructions:: Home Health to assist with VAC changes to back three times per week at 150 mmHg continuous suction. may cleanse the back wound with soap and water on the days the vac is changed. Allergies/Adverse Reactions: Allergies POULTRY Allergy (Uncoded 05/19/17 09:45) Anaphylaxis Medications to take at Discharge Sertraline HCl [Zoloft] 150 mg PO DAILY@0600 09/12/17 traZODone [Desyrel] 50 mg PO QHS 09/12/17 Diazepam [Valium] 10 mg PO 4X/DAY PRN PRN 7 Days #30 tab 09/25/17 Docusate Sodium [Colace] 100 mg PO BID #60 cap 09/25/17 Iron Polysaccharide Complex [Ferrex 150] 150 mg PO DAILYCM #30 cap 09/25/17 Oxycodone HCl/Acetaminophen [Percocet 5-325] 1 - 2 tab PO 4X/DAY PRN PRN 7 Days #60 tab 09/25/17 levoFLOXacin tablet [Levaquin tablet] 500 mg PO .QDAILY #14 tab 09/25/17 proMETHazine tablet [Phenergan tablet] 25 mg PO 4X/DAY PRN PRN #30 tab 09/25/17 The following prescriptions were given: Diazepam [Valium] 10 mg PO 4X/DAY PRN PRN 7 Days #30 tab PRN Reason: Spasms Iron Polysaccharide Complex [Ferrex 150] 150 mg PO DAILYCM #30 cap levoFLOXacin tablet [Levaquin tablet] 500 mg PO .QDAILY #14 tab Oxycodone HCl/Acetaminophen [Percocet 5-325] 1 - 2 tab PO 4X/DAY PRN PRN 7 Days #60 tab PRN Reason: Pain proMETHazine tablet [Phenergan tablet] 25 mg PO 4X/DAY PRN PRN #30 tab PRN Reason: NAUSEA/VOMITING Docusate Sodium [Colace] 100 mg PO BID #60 cap Primary Care Physician: Josué Price MD [Primary Care Provider] - Test Results: Test results from this visit will be discussed in further detail at your follow-up appointment, if applicable. Please Follow Up With: Junior Whitman MD - will start HBO this week. When: 10/10/15 at [facility]. Call [phone] for appt. Please Follow Up With: Junior Whitman MD When: one week. call [phone] for appt. Proposed Discharge Date: 09/25/17 09/25/17 1243 <Electronically signed by Junior Whitman MD> Date Junior Whitman MD CC: Chris Juárez MD; Josué Price MD; [facility] CBC-COMPLETE BLOOD CNT Collected: 09/24/2017 Status: F Source: [place] NO DIFF 6:00 AM [facility] REPOSITORY TYPE CODE TESTS RESULT OUT OF RANGE REFERENCE UNITS LAB L100.1000 4.4-11.0 K/mm3 Low WBC 4.3 LAB L100.1200 4.2-5.4 M/mm3 Low RBC 3.56 LAB L100.1300 12.0-15.0 g/dl Low HGB 9.6 LAB L100.1400 37-47 % Low HCT 28.6 LAB L100.1500 81-99 fL Low MCV 80.3 LAB L100.1600 27.0-32.0 pg Normal MCH 27.0 LAB L100.1700 32-36 g/gl Normal MCHC 33.6 LAB L100.1810 11.6-14.6 % High RDW CV 15.4 LAB L100.1820 35.1-43.9 fl High RDW SD 45.1 LAB L100.1900 150-450 K/mm3 Normal PLT 186 LAB L100.2000 6.2-12.0 fl Normal MPV 8.5 Performed By: #### L100.0500 #### [facility] Laboratory [address] [place], [address] BASIC METABOLIC Collected: 09/24/2017 Status: F Source: [place] PROFILE (BMP) 6:00 AM [facility] REPOSITORY TYPE CODE TESTS RESULT OUT OF RANGE REFERENCE UNITS LAB L501.0100 74-106 mg/dL High GLU 112 Result Comment: Fasting Glucose result from 100 to 125 mg/dL suggests IMPAIRED HOMEOSTASIS per A.D.A. criteria. Please note revised GLUCOSE reference range effective 2017. LAB L501.1000 7-18 mg/dL High BUN 19 LAB L501.1100 0.55-1.02 mg/dL Normal CREAT,SERUM 0.62 Result Comment: The validity of the calculated GFR AND GFRAA in patients over 70 years has not been determined. Clinical correlation is essential. LAB L501.1110 >60 mL/min Normal EST GFR 109 Result Comment: Non- GFR Calc LAB L501.1115 >60 mL/min Normal EST GFR - AA 131 Result Comment: GFR Calc LAB L501.1255 ml/min Normal Estimated CRCL 83.74 LAB L501.1300 10-20 RATIO High BUN/CRE 30.5 LAB L501.2200 8.5-10 mg/dL Normal .1 CA 8.6 LAB L501.5300 136-14 mmol/L Normal 5 NA 140 LAB L501.5600 3.5-5. mmol/L Normal 1 K 3.8 LAB L501.5900 98-107 mmol/L Normal CL 101 LAB L501.6100 21.0-3 mmol/L Normal 2.0 CO2 31.0 LAB L501.6200 5-15 Normal GAP 8 Performed By: #### L500.2500 #### [facility] [address] [place], [place], [id number] CBC-COMPLETE BLOOD CNT Collected: 09/23/2017 Status: F Source: [place] NO DIFF 8:30 AM [facility] REPOSITORY TYPE CODE TESTS RESULT OUT OF RANGE REFERENCE UNITS LAB L100.1000 4.4-11.0 K/mm3 Low WBC 4.1 LAB L100.1200 4.2-5.4 M/mm3 Low RBC 3.31 LAB L100.1300 12.0-15.0 g/dl Low HGB 8.8 LAB L100.1400 37-47 % Low HCT 26.9 LAB L100.1500 81-99 fL Normal MCV 81.3 LAB L100.1600 27.0-32.0 pg Low MCH 26.6 LAB L100.1700 32-36 g/gl Normal MCHC 32.7 LAB L100.1810 11.6-14.6 % High RDW CV 15.6 LAB L100.1820 35.1-43.9 fl High RDW SD 46.8 LAB L100.1900 150-450 K/mm3 Normal PLT 178 LAB L100.2000 6.2-12.0 fl Normal MPV 9.0 Performed By: #### L100.0500 #### [facility] Laboratory [address] [place], [place], [address] BASIC METABOLIC Collected: 09/23/2017 Status: F Source: [place] PROFILE (BMP) 8:30 AM [facility] REPOSITORY TYPE CODE TESTS RESULT OUT OF RANGE REFERENCE UNITS LAB L501.0100 74-106 mg/dL High GLU 260 Result Comment: Glucose result greater than or equal to 200 mg/dL suggests DIABETES MELLITUS per A.D.A. criteria. Please note revised GLUCOSE reference range effective 2017. LAB L501.1000 7-18 mg/dL Normal BUN 16 LAB L501.1100 0.55-1.02 mg/dL Normal CREAT,SERUM 0.83 Result Comment: The validity of the calculated GFR AND GFRAA in patients over 70 years has not been determined. Clinical correlation is essential. LAB L501.1110 >60 mL/min Normal EST GFR 78 Result Comment: Non- GFR Calc LAB L501.1115 >60 mL/min Normal EST GFR - AA 94 Result Comment: GFR Calc LAB L501.1255 ml/min Normal Estimated CRCL 62.55 LAB L501.1300 10-20 RATIO Normal BUN/CRE 19.3 LAB L501.2200 8.5-10 mg/dL Low .1 CA 7.9 LAB L501.5300 136-14 mmol/L Normal 5 NA 137 LAB L501.5600 3.5-5. mmol/L Normal 1 K 3.6 LAB L501.5900 98-107 mmol/L Normal CL 102 LAB L501.6100 21.0-3 mmol/L Normal 2.0 CO2 28.0 LAB L501.6200 5-15 Normal GAP 7 Performed By: #### L500.2500 #### [facility] Laboratory [address] [place], [address] CBC-COMPLETE BLOOD CNT Collected: 09/22/2017 Status: F Source: [place] NO DIFF 5:25 AM [facility] REPOSITORY TYPE CODE TESTS RESULT OUT OF RANGE REFERENCE UNITS LAB L100.1000 4.4-11.0 K/mm3 Normal WBC 4.9 LAB L100.1200 4.2-5.4 M/mm3 Low RBC 3.33 LAB L100.1300 12.0-15.0 g/dl Low HGB 9.2 LAB L100.1400 37-47 % Low HCT 27.5 LAB L100.1500 81-99 fL Normal MCV 82.6 LAB L100.1600 27.0-32.0 pg Normal MCH 27.6 LAB L100.1700 32-36 g/gl Normal MCHC 33.5 LAB L100.1810 11.6-14.6 % High RDW CV 15.8 LAB L100.1820 35.1-43.9 fl High RDW SD 45.9 LAB L100.1900 150-450 K/mm3 Normal PLT 195 LAB L100.2000 6.2-12.0 fl Normal MPV 9.5 Performed By: #### L100.0500 #### [facility] Laboratory [address] [place], [address] BASIC METABOLIC Collected: 09/22/2017 Status: F Source: [place] PROFILE (BMP) 5:25 AM [facility] REPOSITORY TYPE CODE TESTS RESULT OUT OF RANGE REFERENCE UNITS LAB L501.0100 74-106 mg/dL High GLU 110 Result Comment: Fasting Glucose result from 100 to 125 mg/dL suggests IMPAIRED HOMEOSTASIS per A.D.A. criteria. Please note revised GLUCOSE reference range effective 2017. LAB L501.1000 7-18 mg/dL High BUN 19 LAB L501.1100 0.55-1.02 mg/dL Normal CREAT,SERUM 0.73 Result Comment: The validity of the calculated GFR AND GFRAA in patients over 70 years has not been determined. Clinical correlation is essential. LAB L501.1110 >60 mL/min Normal EST GFR 91 Result Comment: Non- GFR Calc LAB L501.1115 >60 mL/min Normal EST GFR - AA 110 Result Comment: GFR Calc LAB L501.1255 ml/min Normal Estimated CRCL 71.12 LAB L501.1300 10-20 RATIO High BUN/CRE 26.1 LAB L501.2200 8.5-10 mg/dL Low .1 CA 8.0 LAB L501.5300 136-14 mmol/L Normal 5 NA 142 LAB L501.5600 3.5-5. mmol/L Normal 1 K 3.7 LAB L501.5900 98-107 mmol/L High CL 108 LAB L501.6100 21.0-3 mmol/L Normal 2.0 CO2 27.0 LAB L501.6200 5-15 Normal GAP 7 Performed By: #### L500.2500 #### [facility] Laboratory [address] [facility] [place], [place], [address] CBC-COMPLETE BLOOD CNT Collected: 09/21/2017 Status: F Source: [place] NO DIFF 5:30 AM [facility] REPOSITORY TYPE CODE TESTS RESULT OUT OF RANGE REFERENCE UNITS LAB L100.1000 4.4-11.0 K/mm3 Normal WBC 9.4 LAB L100.1200 4.2-5.4 M/mm3 Low RBC 3.43 LAB L100.1300 12.0-15.0 g/dl Low HGB 9.5 LAB L100.1400 37-47 % Low HCT 27.9 LAB L100.1500 81-99 fL Normal MCV 81.3 LAB L100.1600 27.0-32.0 pg Normal MCH 27.7 LAB L100.1700 32-36 g/gl Normal MCHC 34.1 LAB L100.1810 11.6-14.6 % High RDW CV 15.8 LAB L100.1820 35.1-43.9 fl High RDW SD 45.2 LAB L100.1900 150-450 K/mm3 Normal PLT 197 LAB L100.2000 6.2-12.0 fl Normal MPV 9.5 Performed By: #### L100.0500, L500.2500 #### [facility] Laboratory [address] [facility] [place], [place], [address] BASIC METABOLIC Collected: 09/21/2017 Status: F Source: [place]ODI PROFILE (BMP) 5:30 AM [facility] REPOSITORY TYPE CODE TESTS RESULT OUT OF RANGE REFERENCE UNITS LAB L501.0100 74-106 mg/dL High GLU 125 Result Comment: Fasting Glucose result from 100 to 125 mg/dL suggests IMPAIRED HOMEOSTASIS per A.D.A. criteria. Please note revised GLUCOSE reference range effective 2017. LAB L501.1000 7-18 mg/dL Normal BUN 15 LAB L501.1100 0.55-1.02 mg/dL Normal CREAT,SERUM 0.61 Result Comment: The validity of the calculated GFR AND GFRAA in patients over 70 years has not been determined. Clinical correlation is essential. LAB L501.1110 >60 mL/min Normal EST GFR 110 Result Comment: Non- GFR Calc LAB L501.1115 >60 mL/min Normal EST GFR - AA 133 Result Comment: GFR Calc LAB L501.1255 ml/min Normal Estimated CRCL 85.11 LAB L501.1300 10-20 RATIO High BUN/CRE 24.4 LAB L501.2200 8.5-10 mg/dL Low .1 CA 8.3 LAB L501.5300 136-14 mmol/L Normal 5 NA 143 LAB L501.5600 3.5-5. mmol/L Normal 1 K 3.8 LAB L501.5900 98-107 mmol/L High CL 108 LAB L501.6100 21.0-3 mmol/L Normal 2.0 CO2 28.0 LAB L501.6200 5-15 Normal GAP 7 Performed By: #### L100.0500, L500.2500 #### [facility] Laboratory [address] [facility] [place], [place], [id number] VANCOMYCIN, TROUGH Collected: 09/20/2017 Status: F Source: KODI LEVEL 8:10 PM [facility] REPOSITORY Order Comment: Time Medication is to be Given? 2030 TYPE CODE TESTS RESULT OUT OF RANGE REFERENCE UNITS LAB L501.8820 5.0-15.0 ug/mL Normal VANCO, TROUGH 10.9 Result Comment: VANCOMYCIN STANDARED DRUG THERAPY TROUGH LEVEL: 5.0 - 15.0 mg/L VANCOMYCIN HIGH INTENSITY THERAPY TROUGH LEVEL: 15.0 - 20.0 mg/L High Intensity therapy recommended for serious life threatening infections include: - Meningitis -Endocarditis -Pneumonia (Ventilator/Healtcare Associated) -Sepsis PLEASE CONTACT PHARMACY SERVICES (#[id number]) FOR INTERPRETATION OF RESULTS. Performed By: #### L501.8820 #### [facility] Laboratory [address] [facility] [place], [place], [address] CBC-COMPLETE BLOOD CNT Collected: 09/20/2017 Status: F Source: [place] NO DIFF 5:20 AM [facility] REPOSITORY TYPE CODE TESTS RESULT OUT OF RANGE REFERENCE UNITS LAB L100.1000 4.4-11.0 K/mm3 Normal WBC 9.8 LAB L100.1200 4.2-5.4 M/mm3 Low RBC 3.88 LAB L100.1300 12.0-15.0 g/dl Low HGB 10.7 LAB L100.1400 37-47 % Low HCT 31.2 LAB L100.1500 81-99 fL Low MCV 80.4 LAB L100.1600 27.0-32.0 pg Normal MCH 27.6 LAB L100.1700 32-36 g/gl Normal MCHC 34.3 LAB L100.1810 11.6-14.6 % High RDW CV 15.6 LAB L100.1820 35.1-43.9 fl High RDW SD 44.6 LAB L100.1900 150-450 K/mm3 Normal PLT 209 LAB L100.2000 6.2-12.0 fl Normal MPV 9.3 Performed By: #### L100.0500 #### [facility] Laboratory [address] [place], [address] BASIC METABOLIC Collected: 09/20/2017 Status: F Source: [place] PROFILE (BMP) 5:20 AM [facility] REPOSITORY TYPE CODE TESTS RESULT OUT OF RANGE REFERENCE UNITS LAB L501.0100 74-106 mg/dL High GLU 148 Result Comment: Fasting Glucose result greater than or equal to 126 mg/dL suggests DIABETES MELLITUS per A.D.A. criteria. Please note revised GLUCOSE reference range effective 2017. LAB L501.1000 7-18 mg/dL Normal BUN 12 LAB L501.1100 0.55-1.02 mg/dL Normal CREAT,SERUM 0.78 Result Comment: The validity of the calculated GFR AND GFRAA in patients over 70 years has not been determined. Clinical correlation is essential. LAB L501.1110 >60 mL/min Normal EST GFR 84 Result Comment: Non- GFR Calc LAB L501.1115 >60 mL/min Normal EST GFR - AA 101 Result Comment: GFR Calc LAB L501.1255 ml/min Normal Estimated CRCL 66.56 LAB L501.1300 10-20 RATIO Normal BUN/CRE 15.4 LAB L501.2200 8.5-10 mg/dL Low .1 CA 8.1 LAB L501.5300 136-14 mmol/L Normal 5 NA 140 LAB L501.5600 3.5-5. mmol/L Normal 1 K 4.4 Result Comment: Slight Hemolysis, Result may be falsely increased. LAB L501.5900 98-107 mmol/L High CL 110 LAB L501.6100 21.0-32.0 mmol/L Normal CO2 21.0 LAB L501.6200 5-15 Normal 9 GAP Performed By: #### L500.2500, L506.0500 #### [facility] Laboratory [address] [place], [address] PREALBUMIN Collected: 09/20/2017 Status: F Source: [place]ODI 5:20 AM [facility] REPOSITORY TYPE CODE TESTS RESULT OUT OF RANGE REFERENCE UNITS LAB L506.0500 20.0-40.0 mg/dL Normal PREALBUMIN 21.3 Performed By: #### L500.2500, L506.0500 #### [facility] Laboratory [address] [facility] [place], [address] MRSA WOUND DNA BY Collected: 09/19/2017 Status: F Source: [place] PCR 12:00 AM [facility] REPOSITORY Order Comment: Comments: RIGHT BREAST RADIATION ULCER TYPE CODE TESTS RESULT OUT OF RANGE REFERENCE UNITS LAB L8200.1100 Negative Normal MRSA Negative RESULT LAB L8200.1150 Negative Normal SA RESULT NEGATIVE Performed By: #### L8200.1075, M600.1900 #### [facility] Laboratory [address] [facility] [place], [address] Observed: 09/19/2017 Status: F Source: [place] CULTURE, FUNGUS W/ 12:00 AM [facility] [id number] REPOSITORY Comments: RIGHT BREAST RADIATION ULCER Is this test to exclude patient from TB Isolation? Shayna Owen,[id number] TESTING PERFORMED AT [facility]. ORIGINAL REPORT ON FILE IN LAB CONTAINS ADDITIONAL TEST SITE INFORMATION. CUF No yeast or mold isolated after [address] TESTING PERFORMED AT [facility]. ORIGINAL REPORT ON FILE IN LAB CONTAINS ADDITIONAL TEST SITE INFORMATION. Fungus Stain No yeast or mold observed. Performed By: #### L8200.1075, M600.1900 #### [facility] Laboratory [address] [place], [address] Observed: 09/19/2017 Status: F Source: [place] CULTURE, DEEP WOUND 12:00 [facility] REPOSITORY Order Date: 10/19/16 Comments: RIGHT BREAST RADIATION ULCER Gram Stain Gram Stain No White Blood Cells No organisms seen Wound Culture No growth aerobically. Cult, Anaerobic No growth in 5 days. Performed By: #### M100.1500 #### [facility] Laboratory [address] [facility] [place], [address] ULCER Observed: 09/19/2017 Status: F Source: KODI 12:00 AM [facility] REPOSITORY Patient: SHARON BARRAGAN : 1970 (47/F) Acct Num: [id number] Phys: Junior Whitman MD Unit Num: [id number] Loc: MS3 [id number] Specimen: [id number] Received: 09/19/171443 Spec Type: ULCER TISSUES TISSUES: Right breast, NOS COMMENT AFB and GMS stains with matched controls were used in the evaluation of this case. GROSS DESCRIPTION Received in fixative is one container labeled with the patient's name and designated right breast radiation ulcer. The specimen consists of an irregular fragment of skin and ulcer and attached fibrofatty tissue measuring 8.5 x 7 cm and a depth of excision measuring 1.5 cm in greatest dimension. An area of ulcer is present in the cutaneous surface measuring 5.5 x 4.5 x 0.2 cm. Serial sections do not reveal mass lesions. Motorbike Courier sections are submitted in four cassettes. / AM:sharon 09/21/17 TC:2 CPT: 55368, 72019 x2 HEADER OPERATION: Breast, reconstruction latissimus dorsi flap, poss. 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 MICROSCOPIC DIAGNOSIS Skin and soft tissue of right breast, excision: Ulceration with associated acute and chronic inflammation and granulation. Fat necrosis and fibrosis. No evidence of malignancy. Benign histiocytic reactive process. Negative for acid-fast bacilli and fungal organisms. AM:sharon 09/22/17 Signed Lee Trujillo 09/25/17 <signature on file> Performed By: #### PUL #### [facility] Laboratory [facility] [place], [address] PLASTIC SURGERY Observed: 09/18/2017 Status: F Source: [place] VISIT REPORT 10:23 PM [facility] REPOSITORY [facility] [address] [place] [address] OFFICE VISIT Date of Service: 08/30/17 MR#: [id number] Acct: [id number] Name: SHARON BARRAGAN Rep #: [id number] : 1970 Provider: Junior Whitman MD Age/Sex: 47/F Location: [facility] Status: Signed Intake Intake Visit Reasons: evaluation breast reconstruction Allergies POULTRY Allergy (Uncoded 05/19/17 09:45) Anaphylaxis Medications Oxycodone HCl/Acetaminophen [Percocet 5-325] 1 - 2 tab PO 4X/DAY PRN PRN 7 Days #50 tab 07/24/17 [Rx Confirmed 09/12/17] Sertraline HCl [Zoloft] 150 mg PO DAILY@0600 09/12/17 [History Confirmed 09/12/17] traZODone [Desyrel] 50 mg PO QHS 09/12/17 [History Confirmed 09/12/17] PFSH Medical History 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) Partial loss of skin graft (Acute) Late effect of radiation (Chronic) Breast cancer, right breast (Acute) 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) BONE FRACTURES - BROKEN RIGHT ARM (Acute) Back pain (Acute) Breast cancer in female (Acute) Breast lump in female (Acute) 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 Social History Smoking Status: Former smoker second hand exposure: No alcohol intake: current alcohol intake frequency: a few times a week Alcohol type: other substance use type: does not use what type of physical activity do you participate in: other frequency: daily seatbelt use: always do you feel safe at home: Yes additional social history: SUN EXPOSURE: OCCASIONALLY HPI evaluation breast reconstruction: Details: HISTORY OF PRESENT ILLNESS 47 year old woman presents for further evaluation for breast reconstruction. Her initial bilateral mastectomy was on 01/12/16. She underwent IV chemotherapy initially and this was followed by radiation therapy to the right breast. She finished the radiation therapy in 10/03. She underwent a TRAM flap in 05/07. She developed a hematoma in the TRAM flap followed by some TRAM flap compromise. About 20% of the flap was salvaged after drainage of a postop hematoma and after debridement of some compromise to the TRAM flap. She underwent wound care with the VAC and then with Silver dressing changes along with antibiotics and HBO therapy to try and salvage the right breast reconstruction and chest wall in preparation for further breast reconstruction. She presents today for further evaluation and treatment. 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 late effect radiation right breast reconstruction. 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 compromised TRAM flap right breast reconstruction with partial loss. hematoma right breast reconstruction and chest wall. PAST SURGICAL HISTORY Thyroidectomy, subtotal Tubal ligation Hysterectomy with bilateral salpingectomy and left oophorectomy - 10/02 prophylactic mastectomy left breast by Dr. Whitman - 01/12/16 mastectomy right breast and bilateral sentinel node biopsies by Dr. Juárez - 01/12/16 port placement - 02/02 delayed right breast reconstruction with unipedicle contralateral TRAM flap and abdominal wall reconstruction with placement of Strattice acellular dermal matrix graft (100 cm2) and revision radiation scar contour deformity right breast with multiple W-plasties (40 cm2) - 05/02/17 surgical preparation right breast TRAM flap reconstruction with incision and drainage and evacuation hematoma - 05/05/17 surgical preparation right breast reconstruction with excisional debridement compromised TRAM flap (256 cm2) - 05/23/17 MEDICATIONS Zoloft. Valium. Mobic. Trazodone. Norvasc. Calcium Carbonate. ALLERGIES Poultry. FAMILY HISTORY negative for breast cancer. SOCIAL HISTORY Patient is a former smoker. Passive smoke exposure - no Alcohol Use - no Regular Exercise - yes Passive smoke exposure - yes REVIEW OF SYSTEMS General - Denies fever and fatigue. History of weight loss. Eyes - Denies eye pain. ENT - Denies nasal congestion and sore throat. CV - Denies chest pain or discomfort, fatigue, lightheadedness and shortness of breath with exertion. Resp - Denies cough and shortness of breath. Patient is a former smoker. GI - Denies nausea, vomiting, diarrhea and constipation. - Denies blood in urine and urinary frequency. MS - Complains of back pain. Denies joint pain, stiffness, muscle weakness and arthritis. Derm - Denies suspicious lesions and skin cancer. Has nonhealing radiation ulcer right chest wall and breast reconstruction. Neuro - Denies poor balance and headaches. Psych - Complains of anxiety. Denies depression. Endo - Denies excessive urination and excessive thirst. Has thyroid disease. Has history of right breast cancer. Heme - Denies bleeding and abnormal bruising. PHYSICAL EXAMINATION General: well developed, well nourished, in no acute distress. Her bra size was 36 C prior to her breast cancer. Head: normocephalic and atraumatic. Eyes: PERRL. EOMI. Neck: no masses, thyromegaly, or abnormal cervical nodes. Breasts: Mastectomy vertical incision on the left breast is healed. No breast masses palpated. On the right breast there is a nonhealing radiation ulcer. Good granulation tissue is present. Skin edges are firm from radiation effects. Ulcer measures 7.5 x 8.5 x 2 cm. Some mild discoloration. There is the remnant of her TRAM flap inferior and medially, about 20%. Flap is soft. No axillary adenopathy. Breast diameter is 12 cm bilaterally. Lungs: clear bilaterally to auscultation. Heart: regular rate and rhythm. Abdomen: normal bowel sounds; no hepatosplenomegaly no ventral,umbilical hernias or masses noted. There is healed TRAM flap scar in lower anterior abdominal wall. Had some residual seroma postop that required an ultrasound guided drainage. Pulses: pulses normal in all 4 extremities. Extremities: no clubbing, cyanosis, edema, or deformity noted with normal full range of motion of all joints. Neurologic: cranial nerves II-XII grossly intact. Skin: no rashes. Cervical Nodes: no significant adenopathy. Axillary Nodes: no significant adenopathy. Inguinal Nodes: no significant adenopathy. Psych: alert and cooperative; normal mood and affect; normal attention span and concentration. ASSESSMENT 1. Nonhealing radiation ulcer right chest wall and breast reconstruction, 2. Right breast cancer. 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 5. Disproportion reconstructed breasts. 6. Late effect radiation right breast. 7. 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 8. Compromised TRAM flap right breast reconstruction with partial loss. 9. History of hematoma right breast reconstruction and chest wall. 10. Estrogen receptor status negative. 11. Former smoker. PLAN Patient has finished her HBO treatments to help salvage the compromised TRAM flap and the underlying radiation soft tissue radionecrosis. She presents to discuss further breast reconstruction. Nonradiated tissue needs to be brought in to the right breast reconstruction and chest wall defect. Will use the latissimus dorsi myocutaneous flap. The patient is not interested in a saline tissue inside parts sales. She would want to go straight to the breast implant at the appropriate time. The issue is in the size of the latissimus dorsi flap. If I plan a regular sized flap which would allow closure of the donor site on the back, we may not have enough soft tissue coverage for the right sized implant. Therefore a smaller implant would be needed or the placement of a saline tissue inside parts sales would be done. Even then, there is no guarantee the inside parts sales will stretch the latissimus as much as we would like since there is still some radiated tissue present. Some stretch and expansion would occur. I just don't know how much. If I plan a larger sized flap which would not allow closure of the donor site on the back, we would need to skin graft the donor site but the trade off would be extra nonradiated tissue that would give us more options with the reconstruction. The skin graft can always be dealt with in the future with serial excision versus a two stage placement of saline tissue expanders to stretch the surrounding skin prior to wound closure on the back. Patient stated that she has been through a lot and wants a nice shaped breast and is willing to be safe and take extra skin with the latissimus to give us more breast reconstruction options in the future. She would not mind the skin graft on her back and knows that if she changes her mind in the future and doesn't like the skin graft then revision surgeries can be done. It is much more difficult to revise the breast if not enough non radiated tissue is not brought forth. I anticipate a radiation scar contracture contour deformity that would necessitate multiple W-plasty reconstruction to maximize the contour of the right breast and minimize some of the radiation scar contracture forces. She will have drains in for several days as well as a binder to keep the back from forming a seroma. She will be maintained on antibiotics at least until the drains are removed. She will be admitted to the floor after the surgery for at least 3 days maybe up to 5. She will keep her head elevated during the initial postop period. Also in the postop period, she would resume HBO treatments to maximize healing from the soft tissue radionecrosis from her radiation therapy. After healing has occurred, in 2-3 months can consider additional breast reconstruction with the placement of implants on both sides. May need to revise skin on the left. Depending on the breast pockets at that time and depending on her wishes, a tissue inside parts sales may be placed to make the breast pocket a little bigger for symmetry purposes. If she wants to hold off on a tissue inside parts sales and is willing to accept a slightly smaller breast as long as symmetry is reasonable, then would proceed with breast implants on both sides and likely would have to make the skin envelope on the left a little smaller. Then 2-3 months after that, can consider any revision that may be necessary and to consider nipple reconstruction at that time. Her goal is to try and have everything done by the end of February so that she can get back to work. At the time of surgery, will treat perioperatively with Vancomycin and Levaquin. At surgery, would send tissue cultures as well as to send tissue to Pathology for analysis to rule out carcinoma. A positive culture may necessitate antibiotic modification. The patient was informed of the risks and complications of the procedure including alternatives to surgery. These were discussed with the patient personally. The patient voices understanding and wishes to proceed. Some of the risks and complications were included in a form from the [place] [employer]. Encouraged the patient to stop smoking as it may have deleterious effects on wound healing. She states she has stopped smoking after her breast cancer diagnosis. Assessment AND Plan Problems 1. Breast cancer, right breast C50.911 2. 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 Late effect of radiation T66.XXXS 7. Partial loss of skin graft T86.828 8. 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 Estrogen receptor negative status [ER-] Z17.1 10. 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 Z90.13 Disproportion of reconstructed breast N65.1 Late effect of radiation T66.XXXS Partial loss of skin graft T86.828 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 Estrogen receptor negative status [ER-] Z17.1 Former cigarette smoker Z87.891 09/18/172222 <Electronically signed by Junior Whitman MD> Date Junior Whitman MD Cosigner Signature: Date (if applicable) CC: Wound Clinic; Chris Juárez MD; Josué Price MD DOWNTIME REPORT Observed: 09/07/2017 Status: F Source: [place] 1:10 PM [facility] Medical Records Department [address] [place] [address] Downtime Report MR#: [id number] Acct: [id number] Name: SHARON BARRAGAN Rep #: [id number] : 1970 47 From: Karthik Burnham PCP: Josué Price MD Status: REG CLI This patient was seen during an EMR downtime August 21, 2017 - August 28, 2017. This patient may have a combination of paper and electronic documentation or all paper documentation. All documentation is viewable within the e-chart portion of [employer] for each patient visit. DOWNTIME REPORT Observed: 09/07/2017 Status: F Source: [place] 12:00 PM [facility] Medical Records Department [address] [place] [address] Downtime Report MR#: [id number] Acct: [id number] Name: SHARON BARRAGAN Rep #: [id number] : 1970 47 From: Karthik Burnham PCP: Josué Price MD Status: REG CLI This patient was seen during an EMR downtime August 21, 2017 - August 28, 2017. This patient may have a combination of paper and electronic documentation or all paper documentation. All documentation is viewable within the e-chart portion of [employer] for each patient visit. CYST PUNCTURE Observed: 08/28/2017 Status: F Source: [place] 2:34 PM [facility] Imaging Services [address] [place] [address] Cyst Puncture MR#: [id number] Acct: [id number] Name: SHARON BARRAGAN E Rep #: [id number] : 1970 F 47 From: Nikolai Alvarado MD PCP: Josué Price MD Status: REG CLI Study: Cyst Puncture Date of Exam: 08/22/17 Exam# [id number] Ordering Dr: Junior Whitman MD PROCEDURE: ULTRASOUND GUIDED ASPIRATION OF FLUID COLLECTION IN THE ANTERIOR ABDOMINAL WALL CLINICAL HISTORY: Female, 47 years old. ASCITES CONSENT: The risks, benefits and alternatives to the procedure were explained to the patient, and the patient agreed to the procedure and signed the consent. 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 PROCEDURE/TECHNIQUE: The risks, benefits, and alternatives to the procedure were explained to patient, and the patient agreed to the procedure and signed a consent form for the procedure. TECHNIQUE: Under the ultrasound guidance using sterile technique and after infiltration of the skin and subcutaneous soft tissues with 10 mL of lidocaine 1% a 4 [place] needle catheter is introduced in the fluid collection. 10 mL of fluid were removed sample sent to lab for evaluation. The patient tolerated the procedure there was no immediate complication. FINDINGS: 10 mL of fluid were removed sample sent to lab for evaluation. The patient tolerated the procedure there was no immediate complication. US/Cyst Puncture IMPRESSION: Successful ultrasound-guided aspiration of fluid collection in the anterior abdominal wall. Electronically Signed: Nikolai Alvarado MD at 13:50 EDT Tel , Service support , CC: Junior Whitman MD; Josué Price MD Manufacturing Electrician: Signed PROGRESS Observed: 08/24/2017 Status: COMPLETED Source: [place] 4:29 PM [facility] REPOSITORY HNO ID: [id number] Author: Josué Price Service: (none) Author Type: Physician Type: Progress Notes Filed: 08/24/2017 4:32 PM Note Text: This note was created using NoteWriter. Subjective Sharon Barragan is a 47 year old female here for her second visit with me. Her depression and insomnia were stable. Chronic pains were managed by her specialists. She was currently dealing with chronic right chest wound from a TRAM flap attempted in April with subsequent complications. She was under Wound Care management. Review of Systems Constitutional: Negative. Respiratory: Negative. Cardiovascular: Negative. Psychiatric/Behavioral: Negative. 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 Alcohol use: No Comment: Rare. Drug use: No Sexual activity: No Comment: BERYL Other Topics Concern Blood Transfusions No Current Outpatient Prescriptions: traZODone (DESYREL) 50 mg tablet Take 1 tablet by mouth daily at bedtime. oxyCODONE-acetaminophen (PERCOCET) 5-325 mg tablet Take 1 tablet by mouth every 4 hours as needed. diazePAM (VALIUM) 5 mg tablet Take 5 mg by mouth every 6 hours as needed. sertraline (ZOLOFT) 50 mg tablet Take 3 tablets by mouth once daily. acetaminophen (TYLENOL EXTRA STRENGTH) 500 mg tablet Take 500 mg by mouth as needed. No current facility-administered medications for this visit. Objective BP 120/68 (BP Site: Left Arm, BP Position: Sitting, BP Cuff Size: Regular Adult) Pulse 84 Temp 37.2 ?C (99 ?F) (Left Tympanic) Resp 18 Wt 80.3 kg (177 lb) LMP 08/31/2015 (Exact Date) BMI 34.57 kg/m? Physical Exam Constitutional: No distress. Neurological: She is alert. Coordination normal. Psychiatric: She has a normal mood and affect. Her behavior is normal. Assessment and Plan 1. Severe episode of recurrent major depressive disorder, without psychotic features (HCC) - ICD9: 296.33, ICD10: F33.2 (primary diagnosis) Medication list updated. - TRAZODONE 50 MG TABLET 2. Insomnia due to medical condition - ICD9: 327.01, ICD10: G47.01 Controlled. 3. Open wound of right chest wall, sequela - ICD9: 906.0, ICD10: S21.101S Per specialists, wound care. 25 minutes was spent, all for discussion, care coordination, updating of information. Josué Price MD CNOV Observed: 08/24/2017 Status: COMPLETED Source: [place] 3:40 PM [facility] REPOSITORY Office Visit (INTMWS) SHARON BARRAGAN ([id number]) 1970 F Date Time Provider Department 08/24/17 3:40 PM JOSUÉ PRICE INTMWS During your visit today, we recorded the following information about you: Temperature Pulse Respiration Blood pressure 99 degrees 84/minute 18/minute 120/68 Weight 80.3 kg Josué Price MD 08/24/2017 4:32 PM Signed This note was created using NoteWriter. Subjective Sharon Barragan is a 47 year old female here for her second visit with me. Her depression and insomnia were stable. Chronic pains were managed by her specialists. She was currently dealing with chronic right chest wound from a TRAM flap attempted in April with subsequent complications. She was under Wound Care management. Review of Systems Constitutional: Negative. Respiratory: Negative. Cardiovascular: Negative. Psychiatric/Behavioral: Negative. 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 Alcohol use: No Comment: Rare. Drug use: No Sexual activity: No Comment: BERYL Other Topics Concern Blood Transfusions No Current Outpatient Prescriptions: traZODone (DESYREL) 50 mg tablet Take 1 tablet by mouth daily at bedtime. oxyCODONE-acetaminophen (PERCOCET) 5-325 mg tablet Take 1 tablet by mouth every 4 hours as needed. diazePAM (VALIUM) 5 mg tablet Take 5 mg by mouth every 6 hours as needed. sertraline (ZOLOFT) 50 mg tablet Take 3 tablets by mouth once daily. acetaminophen (TYLENOL EXTRA STRENGTH) 500 mg tablet Take 500 mg by mouth as needed. No current facility-administered medications for this visit. Objective BP 120/68 (BP Site: Left Arm, BP Position: Sitting, BP Cuff Size: Regular Adult) Pulse 84 Temp 37.2 ?C (99 ?F) (Left Tympanic) Resp 18 Wt 80.3 kg (177 lb) LMP 08/31/2015 (Exact Date) BMI 34.57 kg/m? Physical Exam Constitutional: No distress. Neurological: She is alert. Coordination normal. Psychiatric: She has a normal mood and affect. Her behavior is normal. Assessment and Plan 1. Severe episode of recurrent major depressive disorder, without psychotic features (HCC) - ICD9: 296.33, ICD10: F33.2 (primary diagnosis) Medication list updated. - TRAZODONE 50 MG TABLET 2. Insomnia due to medical condition - ICD9: 327.01, ICD10: G47.01 Controlled. 3. Open wound of right chest wall, sequela - ICD9: 906.0, ICD10: S21.101S Per specialists, wound care. 25 minutes was spent, all for discussion, care coordination, updating of information. Josué Price MD Referring Provider: JOSUÉ PRICE [[id number]] Allergies As of Date: 08/24/2017 Noted Allergy Reaction HAYFEVER (HOMEOPATHIC PRODUCTS) 03/07/2006 poultry [Other] 03/07/2006 Comments: [place], chicken Date Reviewed: 08/24/2017 Reviewed by: Michell Parada LPN - Fully Assessed Reason for Visit: F/U 6 Month [444] Primary Visit Diagnosis:Severe episode of recurrent major depressive disorder, without psychotic features (HCC) [F33.2] Other Visit Diagnoses:Insomnia due to medical condition [G47.01] Open wound of right chest wall, sequela [S21.101S] Order(s):traZODone (DESYREL) 50 mg tabletTake 1 tablet by mouth daily at bedtime.Disp: Rfl: Prescriptions as of 08/24/2017 Sig: TRAZODONE 50 MG TABLET Take 1 tablet by mouth daily * OXYCODONE-ACETAMINOPHEN 5 MG-* Take 1 tablet by mouth every * DIAZEPAM 5 MG TABLET Take 5 mg by mouth every 6 ho* SERTRALINE 50 MG TABLET Take 3 tablets by mouth once * ACETAMINOPHEN 500 MG TABLET Take 500 mg by mouth as neede* Medication notes this encounter TRAZODONE 50 MG TABLET >> Michell Parada LPN 08/24/2017 3:50 PM >> MICHELL PARADA LPN MonAug 24, 2017 3:50 PM Patient taking 1 tablet at bedtime. 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] INVALID FOR*02/20/2017 Sciatica of right side [M54.31] INVALID FOR*02/04/2016 Lumbar sprain and strain INVALID FOR*02/04/2016 SI (sacroiliac) joint inflammation (HCC) [M46.1]INVALID FOR*02/04/2016 Lumbar radicular pain [M54.16] INVALID FOR*02/04/2016 Fibroid uterus [D25.9] INVALID FOR*04/04/2016 Breast cancer of lower-outer quadrant of right *INVALID FOR* Severe episode of recurrent major depressive di*INVALID FOR* Chest wall pain following surgery [R07.89, G89.*INVALID FOR*06/15/2016 Priority: Moderate Financial difficulties [Z59.8] INVALID FOR* Status post mastectomy [Z90.10] INVALID FOR* Insomnia due to medical condition [G47.01] INVALID FOR* Stress at home [F43.9] INVALID FOR* History of Clostridium difficile [OSV6293] INVALID FOR*02/20/2017 More... Atherosclerosis of aorta (HCC) [I70.0] INVALID FOR* More... Palpitations [R00.2] INVALID FOR* Lymphedema [I89.0] INVALID FOR* Chronic bilateral low back pain with bilateral *INVALID FOR* More... Bilateral plantar fasciitis [M72.2] INVALID FOR* Open wound of chest wall [S21.109A] INVALID FOR* More... Prescriptions ordered this encounter Disp Refills Start End TRAZODONE 50 MG TABLET 08/24/2017 Class: Med Update Route: ORAL Sig: Take 1 tablet by mouth daily at bedtime. Medications Discontinued During This Encounter COMPOUNDED PRESCRIPTION 1 De* 0 02/06/2017 08/24/2017 Class: Print RX Sig: Powerstep original full lengh (M72.2) Plantar fasciitis, bilateral (primary encounter diagnosis) Patient not taking: Reported on 07/31/2017 Disc: Reason for discontinue is not on file. atenolol (TENORMIN) 25 mg tablet 30 t* 11 05/16/2017 08/24/2017 Sig: take 1 tablet by mouth once daily Patient not taking: Reported on 07/31/2017 Disc: Reason for discontinue is not on file. meloxicam (MOBIC) 15 mg tablet 30 t* 2 02/20/2017 08/24/2017 Route: ORAL Sig: Take 1 tablet by mouth once daily. With food. For pain. Patient not taking: Reported on 07/31/2017 Disc: Reason for discontinue is not on file. traZODone (DESYREL) 50 mg tablet 60 t* 5 04/18/2017 08/24/2017 Sig: take 2 tablets by mouth at bedtime Patient taking differently: take 1 tablets by mouth at bedtime Disc: Reason for discontinue is not on file. Disposition: Return in about 1 year (around 08/24/2018). Follow-up and Disposition History Recorded Encounter Status:Closed by JOSUÉ PRICE MD on 08/24/17 Observed: 08/22/2017 Status: F Source: [place] CULTURE, BODY FLUID 2:30 PM [facility] REPOSITORY RESULT(S) PREVIOUSLY REPORTED ON MANUAL REQUISITION DURING DOWNTIME. List Antibiotics Last 48 Hours? UNK List Antibiotics to be Started? UNK Comments: FLUID SEROMA DRAINAGE Gram Stain Centrifuged Specimen? Culture performed on centrifuged specimen Gram Stain Rare Red Blood Cells No organisms seen Body Fluid Cult No growth aerobically. Cult, Anaerobic No growth in 5 days. Performed By: #### [id number] #### [facility] [address] [place], [address] PROGRESS Observed: 08/08/2017 Status: COMPLETED Source: [place] 2:32 PM [facility] REPOSITORY O ID: [id number] Author: Kim Yepez Service: (none) Author Type: (none) Type: Progress Notes Filed: 08/08/2017 2:32 PM Note Text: Radiology Service Progress Note PATIENT NAME: Sharon Barragan DATE OF SERVICE: August 08, 2017 TIME: 2:32 PM PATIENT IDENTITY VERIFICATION COMPLETED USING TWO (2) METHODS: Patient confirmed name verbally and Date of . PATIENT GENDER DATA: Female. status: : No status: NO. PATIENT RELEVANT IMPLANT DATA REVIEWED: Not Applicable CONTRAST INDUCED NEPHROPATHY RISK FACTORS: Not applicable CREATININE: Creatinine Date Value Ref Range Status 07/31/2017 0.78 0.58 - 0.96 mg/dL Final 12/21/2016 0.76 0.58 - 0.96 mg/dL Final 08/01/2016 0.78 0.58 - 0.96 mg/dL Final eGFR-All Other Races Date Value Ref Range Status 07/31/2017 >60 . Final Comment: eGFR (Estimated GFR) Units of measure: mL/min/1.73 meters squared eGFR is derived from the reexpressed MDRD Study equation using the following parameters: serum creatinine, age, gender and race. The creatinine assay has been calibrated to be traceable to [employer]. An eGFR <60 mL/min/1.73m2 for >3 months is consistent with chronic kidney disease. Refer to KDOQI guidelines for clinical interpretation. In patients with unstable renal function, e.g. those with acute kidney injury, the eGFR may not accurately reflect actual GFR. eGFR- Date Value Ref Range Status 07/31/2017 >60 Final P.O.C.T. RESULTS: POC done: Yes, See Lab Tab August 08, 2017 RADIOLOGIST NOTIFIED?: No ALLERGIES: Reviewed and unchanged CONTRAST ALLERGY: NO. PERIPHERAL IV ACCESS: Ambulatory: IV type: A peripheral IV was started in the Left antecubital site with a Angio cath: 20 gauge., Site assessment: Clean,Dry and Intact, Site disposition Discontinued RADIOLOGY DEPARTMENT: CT; Exam(s) Completed: Abdomen/Pelvis SIGNED BY: Kim Vang Ct August 08, 2017 2:[address] ABD/PEL W IVCON Observed: 08/08/2017 Status: F Source: [place] 2:31 PM [facility] REPOSITORY * * *Final Report* * * DATE OF EXAM: Aug 08 2017 2:31PM [facility] 0530 - CT ABD/PEL W IVCON / PROCEDURE REASON: multiple diagnoses * * * * Physician Interpretation * * * * History: Malignant neoplasm of the right breast CT Radiation dose: Integrated Dose-length product (DLP) for this visit = 706 mGy*cm. CT Dose Reduction Employed: Automated exposure control (AEC) Contiguous slices through the abdomen and pelvis were obtained following the intravenous administration of 145 cc Omnipaque 300 contrast material and the oral administration of 50 cc Omnipaque 240 mixed with 850 cc water. FINDINGS: Liver: Unremarkable. Biliary: No biliary dilatation. Gallbladder is unremarkable. Spleen: The spleen is of normal attenuation with no focal lesion seen. Pancreas: Unremarkable Adrenals: Unremarkable Kidneys: No hydronephrosis, mass lesion, or nephrolithiasis. GI tract: There is no evidence of intestinal obstruction. There is no dilatation or wall thickening seen. Lymphadenopathy: No pathologic adenopathy is seen within the abdomen or pelvis. Mesentery/peritoneum: No ascites or mass lesion is seen. Vasculature: The visualized vasculature is patent. Abdominal aorta is normal in contour and caliber. Pelvis: No pathologic process is seen. Bony skeleton/soft tissues: No acute bony abnormality is seen. Soft tissues of the lower chest/abdominal wall demonstrate prior right mastectomy with surgical clips noted. Along the adjacent anterior abdominal wall is seen a thin fluid collection spanning 13 x 1.2 cm in transverse and AP dimensions. More inferiorly fluid is more pronounced on the right. This extends down the entirety of the anterior abdominal wall, inferior to the umbilicus. Mild stranding is seen within the anterior abdominal wall in the lower abdominal region, suspicious for inflammatory change. Multiple surgical clips overlie the anterior abdomen. Lower chest: No acute process seen. IMPRESSION: Fluid collection along the anterior abdominal wall, likely related to right mastectomy, as described above. No acute intra-abdominal process is seen. Manufacturing Electrician: PSCB Transcribe Date/Time: Aug 08 2017 2:39P Dictated by : TRICIA NEGRO MD This examination was interpreted and the report reviewed and electronically signed by: TRICIA NEGRO MD on Aug 08 2017 2:47PM EST [id number] ABS GR + CBC Collected: 07/31/2017 Status: F Source: [place] 3:18 PM [facility] REPOSITORY TYPE CODE TESTS RESULT OUT OF REFERENCE UNITS RANGE LAB WWBC 3.70-11.00 k/uL [place] WBC 5.63 LAB WRBC 3.90-5.20 m/uL [place] RBC 4.57 LAB WHGB 11.5-15.5 g/dL [place] Hemoglobin 12.4 LAB WHCT 36.0-46.0 % [place] Hematocrit 36.5 LAB WMCV 80.0-100.0 fL Low [place] MCV 79.9 LAB WMCH 26.0-34.0 pg [place] MCH 27.1 LAB WMCHC 30.5-36.0 g/dL [place] MCHC 34.0 LAB WRDW 11.5-15.0 % [place] RDW 13.9 LAB WPLT 150-400 k/uL [place] Platelet Cnt 233 LAB WMPV 9.0-12.7 fL [place] MPV 9.4 Result Comment: Test performed at: [facility] [place], [address] [place] [address]. LAB ABGRAN 1.45-7.50 k/uL Absol Gran 3.99 Count COMP METABOLIC PANEL Collected: 07/31/2017 Status: F Source: [place] 3:18 PM [facility] REPOSITORY TYPE CODE TESTS RESULT OUT OF REFERENCE UNITS RANGE LAB TP 6.3-8.0 g/dL Protein, Total 7.9 LAB ALB 3.9-4.9 g/dL Albumin 4.4 LAB CA 8.5-10.2 mg/dL Calcium, Total 9.8 LAB TBIL 0.2-1.3 mg/dL Bilirubin, Total 0.2 LAB ALKP 32-117 U/L Alkaline High Phosphatase 137 LAB AST 13-35 U/L AST 20 LAB GLU 74-99 mg/dL Glucose 86 Result Comment: The [place] Diabetes Association (ADA) provides guidance for cutoff values for fasting glucose and random glucose. The ADA defines fasting as no caloric intake for at least 8 hours. Fas ting plasma glucose results between 100 to 125 mg/dL indicate increased risk for diabetes (prediabetes). Fasting plasma glucose results greater than or equal to 126 mg/dL meet the criteria for diagnosis of diabetes. In the absence of unequivocal hyperglycemia, results should be confirmed by repeat testing. In a patient with classic symptoms of hyperglycemia or hyperglycemic crisis, random plasma glucose results greater than or equal to 200 mg/dL meet the criteria for diagnosis of diabetes. Reference: Standards of Medical Care in Diabetes 2016, [place] [employer] Association. Diabetes Care. 2016.39(Suppl 1). LAB BUN 7-21 mg/dL BUN 13 LAB CRET 0.58-0.96 mg/dL Creatinine 0.78 LAB NA 136-144 mmol/L Sodium 139 LAB K 3.7-5.1 mmol/L Potassium 4.2 LAB CL 97-105 mmol/L Chloride 100 LAB CO2 22-30 mmol/L CO2 22 LAB AGAP 9-18 mmol/L Anion Gap 17 LAB ALT 7-38 U/L ALT 15 LAB GFRAA eGFR- Amer. >60 LAB GFRNAA . eGFR-All Other Races >60 Result Comment: eGFR (Estimated GFR) Units of measure: mL/min/1.73 meters squared eGFR is derived from the reexpressed MDRD Study equation using the following parameters: serum creatinine, age, gender and race. The creatinine assay has been calibrated to be traceable to IDMS. An eGFR <60 mL/min/1.73m2 for >3 months is consistent with chronic kidney disease. Refer to KDOQI guidelines for clinical interpretation. In patients with unstable renal function, e.g. those with acute kidney injury, the eGFR may not accurately reflect actual GFR. Performed By: #### CMP #### [facility] [address] [place], [place] [address] PROGRESS Observed: 07/31/2017 Status: COMPLETED Source: [place] [id number] PM [facility] REPOSITORY HNO ID: [id number] Author: Iron Nguyen Service: (none) Author Type: Physician Type: Progress Notes Filed: 07/31/2017 3:03 PM Note Text: Diagnosis: 1) Triple negative early stage breast cancer. HPI: The patient is a 47 yo premenopausal female (at time of diagnosis) who underwent a hysterectomy with unilateral oophorectomy 09/2015. About 3 weeks post-op, patient appreciated a lump in the right breast. Subjectively it grew fairly quickly. A diagnostic mammogram 11/19/2015 revealed a 1.2 cm x 0.8 cm x 1.2 cm lobulated mass in the right breast that was suspicious of malignancy. Ultrasound-guided core needle biopsy of 2 lesions in the right breast on 12/09/2015 was performed. The pathology demonstrated that the first lesion revealed invasive ductal carcinoma, nuclear grade 3. The second lesion taken from the lesion at the 9:00 position demonstrated fibroadenoma. Negative for both ER and ID. HER-2 was interpreted as 2+, granular. Subsequent FISH testing revealed it to be nonamplified. MRI of breasts 12/28/2015: IMPRESSION: 1. ?1.3 cm enhancing mass at 7:00, at posterior depth, in the right breast represents the biopsy proven invasive ductal carcinoma. ?Continued surgical/oncologic management is necessary. 2. ?Four additional suspicious enhancing masses (6:00, anterior depth; 9:00, posterior depth; 9:00 posterior depth; central access, anterior depth) in the right breast. ?If breast conservation is desired, additional biopsy/biopsies is/are recommended. ?Per the electronic medical record, the patient is currently planning for mastectomy. 3. ?Suspicious 0.6 cm enhancing mass at 1:00, at middle depth, in the left breast. ?Second look ultrasound with subsequent biopsy is recommended. ?If no sonographic correlate is identified, then an MRI guided biopsy is recommended. 4. ?Suspicious 0.6 cm enhancing mass at 6:00, at posterior depth, in the left breast. ?Second look ultrasound with subsequent biopsy is recommended. ?If no sonographic correlate is identified, then an MRI guided biopsy is recommended. 5. ?No MRI evidence of internal mammary or axillary lymphadenopathy. Quit smoking 01/02/2016. Patient underwent a right-sided mastectomy along with sentinel lymph node biopsy as well as a prophylactic left mastectomy with left sentinel lymph node biopsy on 01/12/2016. Final pathology demonstrated that within the right breast there was one focus of cancer measuring 1.5 cm. DCIS and LCIS were not present. Overall grade was 3. Margins were negative. Lymphovascular invasion was not observed. 4 lymph nodes were retrieved and all were negative for disease. Specimen from the left breast revealed diffuse fibrocystic changes and intraductal hyperplasia without atypia. No malignancy was observed. One sentinel lymph node was retrieved on the left and it was negative for disease. Previous therapy: 1) AC followed by Taxol. Competed 06/16/2016. 2) Adjuvant radiation completed 08/30/2016. Presents for ongoing oncologic management. Interim history: Since I last saw her, she underwent attempted TRAM flap breast reconstruction in May. Evidently the top portion of the graft failed and became necrotic and was removed and bright it. She developed a wound and initially had a wound VAC to and is now undergoing hyperbaric oxygen treatment 4 times a week. She says it's help the wound and is down about 50% of its size. She just underwent some to bright but this afternoon in the area is bandaged. She has a complaint of upper abdominal bloating and distention along with pain it's been present since her surgery in May. She feels as if she is retaining a lot of fluid in the upper part of the abdomen. Her appetite is been doing okay. Neuropathy is completely resolved but she still has residual heel pain on the left side. That's the only musculoskeletal pain she's currently experiencing. Bowels are working normally. No nausea or vomiting. No episodes of jaundice. PMH, medications and allergies as below personally reviewed by me today. Any changes documented in appropriate section. ROS: Constitutional: Denies episodes of fever and night sweats. Neuro: See above. HEENT: No recent change in voice, vision or hearing. Resp: Denies cough, wheeze and hemoptysis. Denies shortness of breath at rest. Denies GÓMEZ. CVS: Denies exertional chest pain, PND, orthopnea and LE edema. GI: Denies dysgeusia. Denies symptoms of stomatitis. Denies dysphagia and odynophagia. : Denies dysuria or gross hematuria. No symptoms of bladder outlet obstruction. Endo: Denies hot flashes. Denies polyuria and polydipsia. Denies heat and cold intolerance. Musculoskeletal: See above. Derm: Denies rash. Denies jaundice and diffuse pruritis. Heme: Denies unusual bleeding and unexplained bruising. Psych: Normal mood. PHYSICAL EXAM: Vitals: Blood pressure 122/60, pulse 74, temperature 36.6 ?C (97.8 ?F), weight 81.6 kg (180 lb), last menstrual period 08/31/2015. Well-appearing and in no acute distress. EYES: Sclerae are anicteric bilaterally. NECK: Supple. LYMPHATIC: There is no palpable cervical, supraclavicular adenopathy. RESPIRATORY: Inspiratory breath sounds are of normal intensity in all [place]. No rales, wheezes or rhonchi. CARDIOVASCULAR: Rhythm is regular. Normal intensity S1/S2. There is no gallop or murmur. BREAST: The superior portion of the right mastectomy site is bandaged. Lower portion shows a well demarcated reminiscent of the flap reconstruction. Skin appears healthy. ABDOMEN: The upper abdomen is somewhat distended. The right more so than the left. She is tender and I can't palpate deeply enough in order to appreciate whether or not there is organomegaly or mass. There is no fluid wave. Extremities: No swelling or edema. SKIN: No jaundice or rash. No petechiae. 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 No focal motor weakness. The patellar and Achilles DTRs are symmetric and normal. MUSCULOSKELETAL: No muscle wasting or tenderness. ASSESSMENT/PLAN: (C50.511) Breast cancer of lower-outer quadrant of right female breast (HCC) (primary encounter diagnosis) Assessment: -pT1c (1.5 cm; grade 3; no ALI) pN0(sln) MX ER/ID negative, HER-2 nonamplified invasive ductal carcinoma the right breast. -Genetic testing negative. -I don't have all the records from her recent surgical history starting in May but her exam is concerning for possible hepatomegaly/ascites. Plan: -CMP and CT A/P. DO RUSLAN CampOVSP Observed: 07/31/2017 Status: COMPLETED Source: [place] 2:30 PM [facility] REPOSITORY Visit (SP) Office (JATINDER) SHARON BARRAGAN ([id number]) 1970 F Date Time Provider Department 07/31/17 2:30 PM IRON NGUYEN HEMRICHARD During your visit today, we recorded the following information about you: Temperature Pulse Blood pressure Weight 97.8 degrees 74/minute 122/60 81.6 kg She Basilio (Estelle)ESTELLE 07/31/2017 2:00 PM Signed Est pt., 3 month f/u ESTELLE Pineda Paul A 07/31/2017 3:03 PM Signed Diagnosis: 1) Triple negative early stage breast cancer. HPI: The patient is a 47 yo premenopausal female (at time of diagnosis) who underwent a hysterectomy with unilateral oophorectomy 09/2015. About 3 weeks post-op, patient appreciated a lump in the right breast. Subjectively it grew fairly quickly. A diagnostic mammogram 11/19/2015 revealed a 1.2 cm x 0.8 cm x 1.2 cm lobulated mass in the right breast that was suspicious of malignancy. Ultrasound-guided core needle biopsy of 2 lesions in the right breast on 12/09/2015 was performed. The pathology demonstrated that the first lesion revealed invasive ductal carcinoma, nuclear grade 3. The second lesion taken from the lesion at the 9:00 position demonstrated fibroadenoma. Negative for both ER and ID. HER-2 was interpreted as 2+, granular. Subsequent FISH testing revealed it to be nonamplified. MRI of breasts 12/28/2015: IMPRESSION: 1. ?1.3 cm enhancing mass at 7:00, at posterior depth, in the right breast represents the biopsy proven invasive ductal carcinoma. ?Continued surgical/oncologic management is necessary. 2. ?Four additional suspicious enhancing masses (6:00, anterior depth; 9:00, posterior depth; 9:00 posterior depth; central access, anterior depth) in the right breast. ?If breast conservation is desired, additional biopsy/biopsies is/are recommended. ?Per the electronic medical record, the patient is currently planning for mastectomy. 3. ?Suspicious 0.6 cm enhancing mass at 1:00, at middle depth, in the left breast. ?Second look ultrasound with subsequent biopsy is recommended. ?If no sonographic correlate is identified, then an MRI guided biopsy is recommended. 4. ?Suspicious 0.6 cm enhancing mass at 6:00, at posterior depth, in the left breast. ?Second look ultrasound with subsequent biopsy is recommended. ?If no sonographic correlate is identified, then an MRI guided biopsy is recommended. 5. ?No MRI evidence of internal mammary or axillary lymphadenopathy. Quit smoking 01/02/2016. Patient underwent a right-sided mastectomy along with sentinel lymph node biopsy as well as a prophylactic left mastectomy with left sentinel lymph node biopsy on 01/12/2016. Final pathology demonstrated that within the right breast there was one focus of cancer measuring 1.5 cm. DCIS and LCIS were not present. Overall grade was 3. Margins were negative. Lymphovascular invasion was not observed. 4 lymph nodes were retrieved and all were negative for disease. Specimen from the left breast revealed diffuse fibrocystic changes and intraductal hyperplasia without atypia. No malignancy was observed. One sentinel lymph node was retrieved on the left and it was negative for disease. Previous therapy: 1) AC followed by Taxol. Competed 06/16/2016. 2) Adjuvant radiation completed 08/30/2016. Presents for ongoing oncologic management. Interim history: Since I last saw her, she underwent attempted TRAM flap breast reconstruction in May. Evidently the top portion of the graft failed and became necrotic and was removed and bright it. She developed a wound and initially had a wound VAC to and is now undergoing hyperbaric oxygen treatment 4 times a week. She says it's help the wound and is down about 50% of its size. She just underwent some to bright but this afternoon in the area is bandaged. She has a complaint of upper abdominal bloating and distention along with pain it's been present since her surgery in May. She feels as if she is retaining a lot of fluid in the upper part of the abdomen. Her appetite is been doing okay. Neuropathy is completely resolved but she still has residual heel pain on the left side. That's the only musculoskeletal pain she's currently experiencing. Bowels are working normally. No nausea or vomiting. No episodes of jaundice. PMH, medications and allergies as below personally reviewed by me today. Any changes documented in appropriate section. ROS: Constitutional: Denies episodes of fever and night sweats. Neuro: See above. HEENT: No recent change in voice, vision or hearing. Resp: Denies cough, wheeze and hemoptysis. Denies shortness of breath at rest. Denies GÓMEZ. CVS: Denies exertional chest pain, PND, orthopnea and LE edema. GI: Denies dysgeusia. Denies symptoms of stomatitis. Denies dysphagia and odynophagia. : Denies dysuria or gross hematuria. No symptoms of bladder outlet obstruction. Endo: Denies hot flashes. Denies polyuria and polydipsia. Denies heat and cold intolerance. Musculoskeletal: See above. Derm: Denies rash. Denies jaundice and diffuse pruritis. Heme: Denies unusual bleeding and unexplained bruising. Psych: Normal mood. PHYSICAL EXAM: Vitals: Blood pressure 122/60, pulse 74, temperature 36.6 ?C (97.8 ?F), weight 81.6 kg (180 lb), last menstrual period 08/31/2015. Well-appearing and in no acute distress. EYES: Sclerae are anicteric bilaterally. NECK: Supple. LYMPHATIC: There is no palpable cervical, supraclavicular adenopathy. RESPIRATORY: Inspiratory breath sounds are of normal intensity in all [place]. No rales, wheezes or rhonchi. CARDIOVASCULAR: Rhythm is regular. Normal intensity S1/S2. There is no gallop or murmur. BREAST: The superior portion of the right mastectomy site is bandaged. Lower portion shows a well demarcated reminiscent of the flap reconstruction. Skin appears healthy. ABDOMEN: The upper abdomen is somewhat distended. The right more so than the left. She is tender and I can't palpate deeply enough in order to appreciate whether or not there is organomegaly or mass. There is no fluid wave. Extremities: No swelling or edema. SKIN: No jaundice or rash. No petechiae. 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 No focal motor weakness. The patellar and Achilles DTRs are symmetric and normal. MUSCULOSKELETAL: No muscle wasting or tenderness. ASSESSMENT/PLAN: (C50.511) Breast cancer of lower-outer quadrant of right female breast (HCC) (primary encounter diagnosis) Assessment: -pT1c (1.5 cm; grade 3; no ALI) pN0(sln) MX ER/ID negative, HER-2 nonamplified invasive ductal carcinoma the right breast. -Genetic testing negative. -I don't have all the records from her recent surgical history starting in May but her exam is concerning for possible hepatomegaly/ascites. Plan: -CMP and CT A/P. Iron Nguyen DO Referring Provider: IRON NGUYEN [[id number]] Allergies As of Date: 07/31/2017 Noted Allergy Reaction HAYFEVER (HOMEOPATHIC PRODUCTS) 03/07/2006 poultry [Other] 03/07/2006 Comments: [place], chicken Date Reviewed: 07/31/2017 Reviewed by: She Basilio (Wood Model Builder), HYDRO PLANT SITE MANAGER - Fully Assessed Reason for Visit: Established Patient [175] Primary Visit Diagnosis:Malignant neoplasm of lower-outer quadrant of right breast of female, estrogen receptor negative (HCC) [C50.511, Z17.1] Other Visit Diagnoses:Other ascites [R18.8] Abdominal bloating [R14.0] Order(s):CT ABD/PEL W IVCON [1101074] Order #: [id number] FUTURE iv contrast (will be provided with radiology test)CT Chest ABD/PEL-Inject, intravenously, once for 1 dose.No IV access, insert saline lock prior to the beginning of sedation, infusion, injection of imaging exam. Discontinue saline lock post exam. If Pt. has a central line or IVAD, may access for administration according to line specific nursing protocol. Once exam is complete flush line and de-access according to line specific nursing protocol in the CT contrast administration guidelines link.Disp: 1 EachRfl: 0 enteric contrast (will be provided with radiology test)For CT CHESTABD/PEL W IVCON Routine order Administer, As Directed One Time Only, via Oral, Rectal, both Oral and Rectal, Enteric Tube, Stoma or Indwelling Catheter, Enteric Contrast as designated per enteric contrast guidelinesDisp: 1 EachRfl: 0 COMP METABOLIC PANEL [SQCMP] Order #: [id number] FUTURE [place] ABS GRAN CT + CBC [SQWAGCBC] Order #: [id number] FUTURE Follow-up and Disposition History Recorded Prescriptions as of 07/31/2017 Sig: OXYCODONE-ACETAMINOPHEN 5 MG-* Take 1 tablet by mouth every * DIAZEPAM 5 MG TABLET Take 5 mg by mouth every 6 ho* TRAZODONE 50 MG TABLET take 2 tablets by mouth at be* Patient taking differently: take 1 tablets by mouth at be* SERTRALINE 50 MG TABLET Take 3 tablets by mouth once * ACETAMINOPHEN 500 MG TABLET Take 500 mg by mouth as neede* IV CONTRAST (RADIOLOGY PROCED* CT Chest ABD/PEL-Inject, intr* ENTERIC CONTRAST (RADIOLOGY P* For CT CHESTABD/PEL W IVCON R* ATENOLOL 25 MG TABLET take 1 tablet by mouth once d* Patient not taking: Reported on 07/31/2017 MELOXICAM 15 MG TABLET Take 1 tablet by mouth once d* Patient not taking: Reported on 07/31/2017 COMPOUNDED PRESCRIPTION Powerstep original full lengh* Patient not taking: Reported on 07/31/2017 Medication notes this encounter ATENOLOL 25 MG TABLET >> She Basilio (Wood Model Builder), L* 07/31/2017 1:54 PM >> SHE BASILIO Mon July 31, 2017 1:54 PM Prn Problem List As Of Date 07/31/2017 Noted Resolved 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] INVALID FOR*02/20/2017 Sciatica of right side [M54.31] INVALID FOR*02/04/2016 Lumbar sprain and strain INVALID FOR*02/04/2016 SI (sacroiliac) joint inflammation (HCC) [M46.1]INVALID FOR*02/04/2016 Lumbar radicular pain [M54.16] INVALID FOR*02/04/2016 Fibroid uterus [D25.9] INVALID FOR*04/04/2016 Breast cancer of lower-outer quadrant of right *INVALID FOR* Severe episode of recurrent major depressive di*INVALID FOR* Chest wall pain following surgery [R07.89, G89.*INVALID FOR*06/15/2016 Priority: Moderate Financial difficulties [Z59.8] INVALID FOR* Status post mastectomy [Z90.10] INVALID FOR* Insomnia due to medical condition [G47.01] INVALID FOR* Stress at home [F43.9] INVALID FOR* History of Clostridium difficile [SAK5436] INVALID FOR*02/20/2017 More... Atherosclerosis of aorta (HCC) [I70.0] INVALID FOR* More... Palpitations [R00.2] INVALID FOR* Lymphedema [I89.0] INVALID FOR* Chronic bilateral low back pain with bilateral *INVALID FOR* More... Bilateral plantar fasciitis [M72.2] INVALID FOR* Visit Notes: >> She Basilio (Wood Model Builder), HYDRO PLANT SITE MANAGER Mon July 31, 2017 1:56 PM Status: Signed Est pt., 3 month f/u She BasilioESTELLE Encounter Status:Closed by IRON NGUYEN DO on 07/31/17 ALK PHOS ISOENZYME Collected: 07/21/2017 Status: F Source: [place] 1:20 PM [facility] REPOSITORY TYPE CODE TESTS RESULT OUT OF RANGE REFERENCE UNITS LAB L3250.0200 39-117 IU/L High ALK PHOS, S 126 LAB L3250.0300 18-85 % LIVER Normal FRACTION 79 LAB L3250.0400 14-68 % BONE Normal FRACTION 21 LAB L3250.0500 0-18 % Normal INTESTINAL FRAC 0 Result Comment: Performed at: - [facility] [address] [id number] Journeyman Pipe Fitter: Vikram Moe PhD, Phone: [phone] Performed By: #### L3250.0100 #### [facility] (refer to report for specific site) refer to report for address and phone number VENOUS DUPLEX UPPER Observed: 06/28/2017 Status: F Source: [place] EXTREMITY 5:32 PM [facility] REPOSITORY [facility] [address] [place] [id number] Venous Duplex US, Unilateral 06/28/17 1340 MR#: [id number] Acct: [id number] Name: SHARON BARRAGAN Rep #: [id number] : 1970 47 From: Josafat Partida MD Attending Dr: Status: DEP ER Ordering Dr: Romeo Jimenes MD Date: 06/28/17 Location: ED Sex: F C Admitted: Reason For Study: LUE swelling/pain pt has PICC line Left Proximal Left jugular vein is spontaneous, widely patent, phasic, with no intraluminal echogenicity noted. Left subclavian vein is spontaneous, widely patent, phasic, with no intraluminal echogenicity noted. Left Arm Left axillary vein is spontaneous, patent, phasic, competent, compressible and demonstrates augmentation. Left brachial vein is compressible. Left cephalic vein is compressible. Left basilic vein is compressible. Left Lower Arm Left radial vein is compressible. Left ulnar vein is compressible. < Interpretation Summary No evidence for acute deep venous thrombosis[left] upper extremity with patent and compressible cephalic and basilic veins. Ordering Physician: Romeo Jimenes Referring Physician: Junior Whitman Performed By: Kellee Moreira RVT 06/28/17 173 Date Josafat Partida MD CC: Romeo Jimenes MD; Josué Price MD Date Dictated: 06/28/17 1340 Date Transcribed: 06/28/171730 Manufacturing Electrician: Signed EMERGENCY DEPARTMENT Observed: 06/28/2017 Status: F Source: [place] SUMMARY 5:09 PM [facility] REPOSITORY [facility] Medical Records Department [address] [place] [address] Emergency Department Summary 06/28/17 1322 MR#: [id number] Acct: [id number] Name: SHARON BARRAGAN Rep #: [id number] : 1970 47 From: Romeo Jimenes MD PCP: Josué Price MD Status: DEP ER - ER Visit Summary Date of Service: 06/28/17 Chief Complaint: Complaining of left upper arm swelling mild discomfort. History of Present Illness: The patient is a 47 F 3 of breast CA with bilateral mastectomies and flap procedure. She developed a infection recently has had a PICC line for the last day or so he has had mild swelling in the left upper arm and discomfort. No fever. No redness. She wants her PICC line out. She is currently getting IV antibiotic therapy and has about a week for that to continue. Physical Examination: Appearing middle-aged female. Vital signs are stable afebrile. No acute distress. H EENT exam unremarkable. Neck nontender. Lungs clear to auscultation bilaterally. Heart regular rhythm no murmur. Abdomen soft nontender nondistended no giving or masses. She is moving all 4 extremities.. She does have mild swelling to her left upper arm. The forearm is no edema. 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 There is no cellulitis to her arm. The left hand is neurovascularly intact. Test Results: Venous study left upper extremity was negative. No DVT. Emergency Department Course and Treatment: Clear PICC line looks good. There is mild swelling left upper arm. I do not see any obvious infection. We will do a noninvasive study to evaluate to rule out a DVT. I attempted to have PICC line nursing evaluate PICC line but they are not available today. I will discuss with Dr. azra Villegas with test results. Treatment Plan: Discussed w/ Dr. Whitman and will remove her PICC line. Disposition: Discharge Impression: Left upper arm swelling secondary to PICC line. This note was generated with [employer] dictation software. It may contain incorrect words, spelling, and punctuation that were not noted in review of the chart prior to signing ED Disposition - Plan for ED Patient: Chief Complaint: General Illness Referrals: Josué Price MD [Primary Care Provider] - What to do if you have Problems For any increased pain, shortness of breath, bleeding, nausea or vomiting, chest pain, or any unexpected problems, contact your Primary Care Provider. Call [facility] ([phone]) or report to the closest Emergency Room. Call 911 if necessary. 06/28/17 5596 <Electronically signed by Romeo Jimenes MD> Date Romeo Jimenes MD Cosigner Signature (If Indicated): Date CC: Josué Price MD DISCHARGE INSTRUCTION Observed: 06/28/2017 Status: F Source: [place] 5:09 PM [facility] Medical Records Department [address] [place] [address] Discharge Instruction 06/28/17 1511 MR#: [id number] Acct: [id number] Name: SHARON BARRAGAN Rep #: [id number] : 1970 47 From: Romeo Jimenes MD PCP: Josué Price MD Status: DEP ER ED Disposition - Plan for ED Patient: Disposition: Home or Assisted Living Chief Complaint: General Illness Referrals: Josué Price MD [Primary Care Provider] - 1 Week if not improving Additional Instructions: Elevate left arm and decrease the swelling. Motrin for pain. No signs of blood clot in your arm.0 What to do if you have Problems For any increased pain, shortness of breath, bleeding, nausea or vomiting, chest pain, or any unexpected problems, contact your Primary Care Provider. Call [facility] ([phone]) or report to the closest Emergency Room. Call 911 if necessary. 06/28/17 170 <Electronically signed by Romeo Jimenes MD> Date Romeo Jimenes MD Cosigner Signature (If Indicated): Date CC: Josué Price MD OPERATIVE REPORT Observed: 06/14/2017 Status: F Source: [place] 11:09 AM [facility] Medical Records Department [address] [place] [address] Operative Report 05/23/17 1700 MR#: [id number] Acct: [id number] Name: SHARON BARRAGAN Rep #: [id number] : 1970 47 From: Junior Whitman MD PCP: Josué Price MD Status: DIS IN Y Location: MS3 SH208-6 Report of Operation Date of Procedure: 05/23/17 Pre-Operative Diagnosis: 1. Compromised TRAM flap wound right breast reconstruction, worsening. 2. Right breast cancer. 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 5. Disproportion reconstructed breasts. 6. Late effect radiation right breast. 7. Estrogen receptor status negative. 8. Former smoker. 9. s/p delayed right breast reconstruction with unipedicle contralateral TRAM flap and abdominal wall reconstruction with placement of Strattice acellular dermal matrix graft (100 cm2) and revision radiation scar contour deformity right breast with multiple W-plasties (40 cm2). 10. s/p surgical preparation right breast TRAM flap reconstruction with incision and drainage and evacuation hematoma. Post-Operative Diagnosis: Same. Surgery/Procedure Performed:: Surgical preparation right breast reconstruction with excisional debridement compromised TRAM flap (256 cm2). Description of Surgical Findings:: The patient is a 47 year old F who presented for evaluation breast reconstruction. Her initial bilateral mastectomy was on 01/12/16. She underwent IV chemotherapy initially and this was followed by radiation therapy to the right breast. She finished the radiation therapy in 10/03. She states that during this adjuvant therapy, she has gained a little weight and has developed some extra tissue in the lower anterior abdominal wall. The last time I saw her in 03/04, she was interested in breast reconstruction with placement of implants. Now she is contemplating the use of autogenous tissue for the radiated right breast. She denies any fever. She states she has stopped smoking since her diagnosis of breast cancer. On 05/02/17, the patient underwent delayed right breast reconstruction with unipedicle contralateral TRAM flap and abdominal wall reconstruction with placement of Strattice acellular dermal matrix graft (100 cm2) and revision radiation scar contour deformity right breast with multiple W-plasties (40 cm2). Due to the length of the procedure, postop Lovenox was given daily. She developed a postop hematoma and was taken back to surgery on 05/05/17 where she underwent surgical preparation right breast TRAM flap reconstruction with incision and drainage and evacuation hematoma. Besides evacuating the hematoma, operative intervention was done to take pressure off the blood supply to the flap. This will help the salvage the flap. There was some improvement after the drainage of hematoma. She was discharged home and was seen in the office daily because of the need for serial debridements at the edges of the flap due to the development of eschar. The bruising and eschar slowly progressed. There was a central area of the flap that appeared viable. On the day of admission to the hospital, 05/19/17, she wasn't feeling well with increased pain and having a fever at home. She was started on Zosyn IV antibiotics. Wound culture showed Staphylococcus warneri and MRSE and the antibiotics were changed to Vancomycin. Her wound care in the hospital was changed from Silvercel to Dakin's. The flap was warm at admission and yesterday felt a little more cool with a little more bruising. It was recommended to proceed with further operative debridement to minimize any further infection damage and to then place the VAC for wound care. After discharge, will followup at the [facility] for evaluation for HBO treatments to improve the vascularity and oxygenation of the radiated tissue in preparation for further revision breast reconstruction in the future. Patient was informed of the risks and complications of the procedure including alternatives to surgery. These were discussed with her personally. She voiced understanding and wishes to proceed. Size of defect right breast - 16 x 16 cm. Was able to salvage about 20% of the flap. I used Geri absorbable hemostat. Reference Number - [id number]. Lot Number - [id number]. Expiration - January 14, 2022. bindery machine feeder offbearer: None Type of Anesthesia:: General Specimen's removed: Compromised TRAM flap right breast reconstruction to Pathology and Microbiology. Drains: None. Estimated Blood Loss (mL): 150 ml. Description of Procedure: Patient was taken to the OR in supine position and was placed under general anesthesia. Her right breast was prepped and draped in the usual fashion. SCD's were placed for DVT prophylaxis. Perioperative antibiotics were given intravenously. Using xylocaine with epinephrine, the breast skin edges were infiltrated. Using a scalpel, I started to debride the edges of the flap where the most compromise was seen. I debrided all four sides until I got to viable subcutaneous tissue and good bleeding of tissue. When I debrided the nonviable tissue inferiorly, there was concern the nonviability extended all the down through the muscular pedicle. However after the superficial debridement, The underlying muscular pedicle was intact and viable and showed good bleeding after the debridement. Therefore it was decided to save this last bit of flap in case this extra tissue is needed at future revision breast reconstruction surgeries. I was able to inset the flap at the most inferomedial aspect of the wound. If this tissue continues to be viable, its location will be useful since the latissimus dorsi flap that is generally used for salvage is ideally suited for more central and lateral wound defects and is more problematic reaching the medial most aspect of the wound defect. The residual flap was then secured to the inferomedial wound edge with 3-0 Monocryl interrupted suture for the deep dermis and subcutaneous tissue. It was also secured to the chest wall with 3-0 Monocryl interrupted suture. The chest wall showed residual effects of radiation with the presence of grayish exudate that was sharply debrided with a curette. Good bleeding was noted. The wound was irrigated with saline. Hemostasis obtained with electrocautery. There was some serous drainage at the edge of the tunnel where the muscular pedicle came through. I sprayed Geri absorbable hemostat into the tunnel to help minimize any further drainage into the breast wound and to help minimize seroma. The size of the wound right breast after the debridement of the compromised TRAM flap was 16 x 16 cm or 256 cm2. The wound was then dressed with Mepitel nonadherent dressing followed by Kerlix gauze with Betadine followed by a dry Kerlix gauze and ABD pads and a surgical bra. Tissue that was removed after debridement was sent to Pathology for analysis as well as to Microbiology for culture. A positive culture may necessitate antibiotic modification. Perioperatively she will continue Vancomycin. Grafts/Implants Used: None. - Complications None. - Admit VTE Documentation VTE Present on Admission: No VTE Mechan Device Prophylaxis: SCD's VTE Pharm Prophylaxis ordered?: Yes Code Visit Surgery Charges CPT - 94907 ICD-10 - C50.911, T86.828, F40.298, Z90.13, N65.1, T66.xxxS, L98.499, N65.0 55441 C50.911, T86.828, F40.298, Z90.13, N65.1, T66.xxxS, L98.499, N65.0 26639 C50.911, T86.828, F40.298, Z90.13, N65.1, T66.xxxS, L98.499, N65.0 06/14/17 1109 <Electronically signed by Junior Whitman MD> Date Junior Whitman MD CC: Chris Juárez MD; Junior Whitman MD; Josué Price MD; [facility] Signed PLASTIC SURGERY Observed: 06/13/2017 Status: F Source: [place] VISIT REPORT 1:58 PM [facility] REPOSITORY [facility] [address] [place] [address] OFFICE VISIT Date of Service: 05/19/17 MR#: [id number] Acct: [id number] Name: SHARON BARRAGAN Rep #: [id number] : 1970 Provider: Junior Whitman MD Age/Sex: 47/F Location: [facility] Status: Signed Intake Vital Signs05/19/17 Respiratory Rate 16 Intake Visit Reasons: postop surgery 05/05/17 and 05/02/17 Lifeguard Required: No Accompanied by: Mother Is patient in pain?: Yes (BREAST PAIN IS ACHING - WAS WORSE BEFORE TAKING PAIN MED TODAY) Pain scale (1-10): 6 Allergies POULTRY Allergy (Uncoded 05/19/17 09:45) Anaphylaxis Medications Sertraline HCl [Zoloft] 150 mg PO DAILY 01/11/16 [History Confirmed 05/20/17] Trazodone HCl 50 mg PO QHS 04/20/16 [History Confirmed 05/20/17] Amlodipine [Norvasc] 5 mg PO DAILY PRN 04/25/17 [History Confirmed 05/19/17] Calcium Carbonate/Vitamin D3 [Calcium 500-Vit D3 600 Tablet] 1 ea PO DAILY PRN 04/25/17 [History Confirmed 05/20/17] Meloxicam [Mobic] 15 mg PO DAILY PRN 04/25/17 [History Confirmed 05/20/17] proMETHazine tablet [Phenergan tablet] 25 mg PO 4X/DAY PRN PRN #30 tab 05/10/17 [Rx Confirmed 05/20/17] Docusate Sodium [Colace] 100 mg PO BID 05/19/17 [History Confirmed 05/19/17] Vancomycin 1,000 mg IV Q12H #76 bag 05/24/17 [Rx] Amlodipine [Norvasc] 5 mg PO DAILY tab 05/25/17 [Rx] Calcium Carb/Vitamin D [Os-Skinny 500MG + D] 1 tab PO DAILY@0800 tab 05/25/17 [Rx] Diazepam [Valium] 5 mg PO 4X/DAY PRN PRN #30 tab 05/25/17 [Rx] Docusate Sodium [Colace] 100 mg PO BID cap 05/25/17 [Rx] Lactobacillus Acidophilus [Acidophilus] 1 tab PO BID tab 05/25/17 [Rx] Meloxicam [Mobic] 15 mg PO DAILY PRN tab 05/25/17 [Rx] Oxycodone HCl/Acetaminophen [Percocet 5-325] 1 - 2 tab PO 4X/DAY PRN PRN 7 Days #60 tab 05/25/17 [Rx] Sertraline HCl [Zoloft] 150 mg PO DAILY@0600 tab 05/25/17 [Rx] proMETHazine tablet [Phenergan tablet] 25 mg PO Q4H PRN PRN tab 05/25/17 [Rx] traZODone [Desyrel] 50 mg PO QHS tab 05/25/17 [Rx] doxycycline hyclate 100 mg capsule See Label Instructions PO BID #28 cap 06/11/17 [Rx Confirmed 06/11/17] Patient : No PFSH Medical History 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) BONE FRACTURES - BROKEN RIGHT ARM (Acute) Back pain (Acute) Breast cancer in female (Acute) Breast lump in female (Acute) 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 Social History Smoking Status: Former smoker second hand exposure: No alcohol intake: current alcohol intake frequency: a few times a week Alcohol type: other substance use type: does not use what type of physical activity do you participate in: other frequency: daily seatbelt use: always do you feel safe at home: Yes additional social history: SUN EXPOSURE: OCCASIONALLY HPI postop surgery 05/05/17 and 05/02/17: Details: Postop visit from her recent surgery on 05/02/17 where she underwent delayed right breast reconstruction with unipedicled contralateral TRAM flap and abdominal wall reconstruction with placement of Strattice acellular dermal matrix graft (100 cm2) and revision radiation scar contour deformity right breast with multiple W-plasties (40 cm2). Postop visit from her recent surgery on 05/05/17 where she underwent surgical preparation right breast TRAM flap reconstruction with incision and drainage and evacuation hematoma. She was discharged from the hospital on 05/10/17. Comes in today not feeling well. She states she feels tired and cruddy. Her Temp was 100. Her wound culture from 05/15/17 was negative. She has finished the Doxycycline. There is concern that she is developing an infection because of the presence of residual eschar in the wound. We were going to start Dakin's dressing changes because the Silver was drying out the wound. Recommend admission to the hospital for more aggressive wound care with the Dakin's dressing changes and to start IV antibiotics. Will also check admission labs as well. Depending on how well her wound responds to the changes in wound care and the IV antbiotics, will determine if it is necessary to proceed with operative debridement. If operative debridement is necessary, then would place a VAC into the wound instead of the Dakin's. She would then followup at the Wound Center because of the need for evaluation for HBO treatments to help the healing process because of the presence of soft tissue radionecrosis as well as the compromised TRAM flap. The goal is to try and salvage as much as the flap as we can in order to make further breast reconstruction a little easier based on the size of the wound after healing has occurred. Anticipate the possible need for termite helper IV antibiotics, so a PICC line will be placed during the hospitalization. The abdominal wall incision is dry and intact and healing. Good abdominal wall contour is noted. No clinicall evidence of seroma. 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 Whitman - 01/12/16 mastectomy right breast and bilateral sentinel node biopsies by Dr. Juárez - 01/12/16 port placement - 02/02 delayed right breast reconstruction with unipedicle contralateral TRAM flap and abdominal wall reconstruction with placement of Strattice acellular dermal matrix graft (100 cm2) and revision radiation scar contour deformity right breast with multiple W-plasties (40 cm2) - 05/02/17 surgical preparation right breast TRAM flap reconstruction with incision and drainage and evacuation hematoma - 05/05/17 FAMILY HISTORY negative for breast cancer. SOCIAL HISTORY Patient is a former smoker. Passive smoke exposure - no Alcohol Use - no Regular Exercise - yes Passive smoke exposure - yes Assessment AND Plan Problems 1. 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 Late effect of radiation T66.XXXS 7. Partial loss of skin graft T86.828 8. Radiation skin ulcer of chest L98.499 9. Hematoma of breast N64.89 10. Estrogen receptor negative status [ER-] Z17.1 11. 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 Partial loss of skin graft T86.828 Radiation skin ulcer of chest L98.499 Hematoma of breast N64.89 Estrogen receptor negative status [ER-] Z17.1 Former cigarette smoker Z87.891 06/13/17 1358 <Electronically signed by Junior Whitman MD> Date Junior Whitman MD [facility] Signature: Date (if applicable) CC: PLASTIC SURGERY Observed: 06/13/2017 Status: F Source: [place] VISIT REPORT 12:00 AM [facility] REPOSITORY [facility] [address] [place] [address] OFFICE VISIT Date of Service: 05/18/17 MR#: [id number] Acct: [id number] Name: SHARON BARRAGAN Rep #: [id number] : 1970 Provider: Junior Whitman MD Age/Sex: 47/F Location: [facility] [place] Status: Signed Intake Vital Signs05/18/17 Respiratory Rate 16 Intake Visit Reasons: postop surgery 05/05/17 and 05/02/17 Lifeguard Required: No Accompanied by: Mother Is patient in pain?: Yes (RIGHT BREAST PAIN - PRESSURE AND BURNING ) Pain scale (1-10): 5 Allergies POULTRY Allergy (Uncoded 05/19/17 09:45) Anaphylaxis Medications Sertraline HCl [Zoloft] 150 mg PO DAILY 01/11/16 [History Confirmed 05/20/17] Trazodone HCl 50 mg PO QHS 04/20/16 [History Confirmed 05/20/17] Amlodipine [Norvasc] 5 mg PO DAILY PRN 04/25/17 [History Confirmed 05/19/17] Calcium Carbonate/Vitamin D3 [Calcium 500-Vit D3 600 Tablet] 1 ea PO DAILY PRN 04/25/17 [History Confirmed 05/20/17] Meloxicam [Mobic] 15 mg PO DAILY PRN 04/25/17 [History Confirmed 05/20/17] proMETHazine tablet [Phenergan tablet] 25 mg PO 4X/DAY PRN PRN #30 tab 05/10/17 [Rx Confirmed 05/20/17] Docusate Sodium [Colace] 100 mg PO BID 05/19/17 [History Confirmed 05/19/17] Vancomycin 1,000 mg IV Q12H #76 bag 05/24/17 [Rx] Amlodipine [Norvasc] 5 mg PO DAILY tab 05/25/17 [Rx] Calcium Carb/Vitamin D [Os-Skinny 500MG + D] 1 tab PO DAILY@0800 tab 05/25/17 [Rx] Diazepam [Valium] 5 mg PO 4X/DAY PRN PRN #30 tab 05/25/17 [Rx] Docusate Sodium [Colace] 100 mg PO BID cap 05/25/17 [Rx] Lactobacillus Acidophilus [Acidophilus] 1 tab PO BID tab 05/25/17 [Rx] Meloxicam [Mobic] 15 mg PO DAILY PRN tab 05/25/17 [Rx] Oxycodone HCl/Acetaminophen [Percocet 5-325] 1 - 2 tab PO 4X/DAY PRN PRN 7 Days #60 tab 05/25/17 [Rx] Sertraline HCl [Zoloft] 150 mg PO DAILY@0600 tab 05/25/17 [Rx] proMETHazine tablet [Phenergan tablet] 25 mg PO Q4H PRN PRN tab 05/25/17 [Rx] traZODone [Desyrel] 50 mg PO QHS tab 05/25/17 [Rx] doxycycline hyclate 100 mg capsule See Label Instructions PO BID #28 cap 06/11/17 [Rx Confirmed 06/11/17] Patient : No PFSH Medical History 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) BONE FRACTURES - BROKEN RIGHT ARM (Acute) Back pain (Acute) Breast cancer in female (Acute) Breast lump in female (Acute) 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 Social History Smoking Status: Former smoker second hand exposure: No alcohol intake: current alcohol intake frequency: a few times a week Alcohol type: other substance use type: does not use what type of physical activity do you participate in: other frequency: daily seatbelt use: always do you feel safe at home: Yes additional social history: SUN EXPOSURE: OCCASIONALLY HPI postop surgery 05/05/17 and 05/02/17: Details: Postop visit from her recent surgery on 05/02/17 where she underwent delayed right breast reconstruction with unipedicled contralateral TRAM flap and abdominal wall reconstruction with placement of Strattice acellular dermal matrix graft (100 cm2) and revision radiation scar contour deformity right breast with multiple W-plasties (40 cm2). Postop visit from her recent surgery on 05/05/17 where she underwent surgical preparation right breast TRAM flap reconstruction with incision and drainage and evacuation hematoma. She was discharged from the hospital on 05/10/17. Comes in today with a little more discomfort in her right breast reconstruction. There is some eschar at the edges of the flap. There has been no fever. There has been no drainage. A little more progression of the eschar noted. Continued sharp debridement was done today with a scalpel until some bleeding tissue seen. It appears the tissue is drying out with the Silver. Will change dressing changes to Dakin's which will be available tomorrow. The wounds were dressed today with Silver. Her Temp was normal today. She is finishing the Doxycycline. Th wound culture from 05/15/17 has been negative thus far. There is no evidence of infection. There is no drainage and no odor. The abdominal wall incision is dry and intact and healing. Good abdominal wall contour is noted. Followup tomorrow for another dressing change and for further debridement when necessary. Will begin Dakin's dressing changes tomorrow. 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 Whitman - 01/12/16 mastectomy right breast and bilateral sentinel node biopsies by Dr. Juárez - 01/12/16 port placement - 02/02 delayed right breast reconstruction with unipedicle contralateral TRAM flap and abdominal wall reconstruction with placement of Strattice acellular dermal matrix graft (100 cm2) and revision radiation scar contour deformity right breast with multiple W-plasties (40 cm2) - 05/02/17 surgical preparation right breast TRAM flap reconstruction with incision and drainage and evacuation hematoma - 05/05/17 FAMILY HISTORY negative for breast cancer. SOCIAL HISTORY Patient is a former smoker. Passive smoke exposure - no Alcohol Use - no Regular Exercise - yes Passive smoke exposure - yes Assessment AND Plan Problems 1. 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 Late effect of radiation T66.XXXS 7. Partial loss of skin graft T86.828 8. Radiation skin ulcer of chest L98.499 9. Hematoma of breast N64.89 10. Estrogen receptor negative status [ER-] Z17.1 11. 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 Partial loss of skin graft T86.828 Radiation skin ulcer of chest L98.499 Hematoma of breast N64.89 Estrogen receptor negative status [ER-] Z17.1 Former cigarette smoker Z87.891 06/13/17 0000 <Electronically signed by Junior Whitman MD> Date Junior Whitman MD Cosigner Signature: Date (if applicable) CC: PLASTIC SURGERY Observed: 06/12/2017 Status: F Source: [place] VISIT REPORT 12:02 AM [facility] REPOSITORY [facility] [address] [place] [id number] OFFICE VISIT Date of Service: 05/16/17 MR#: [id number] Acct: [id number] Name: SHARON BARRAGAN Rep #: [id number] : 1970 Provider: Junior Whitman MD Age/Sex: 47/F Location: [facility] – [place] Status: Signed Intake Vital Signs05/16/17 Respiratory Rate 16 Intake Visit Reasons: postop surgery 05/05/17 and 05/02/17 Lifeguard Required: No Accompanied by: Mother Is patient in pain?: Yes (ABDOMINAL PAIN IS SHARP) Pain scale (1-10): 9 Allergies POULTRY Allergy (Uncoded 05/19/17 09:45) Anaphylaxis Medications Sertraline HCl [Zoloft] 150 mg PO DAILY 01/11/16 [History Confirmed 05/20/17] Trazodone HCl 50 mg PO QHS 04/20/16 [History Confirmed 05/20/17] Amlodipine [Norvasc] 5 mg PO DAILY PRN 04/25/17 [History Confirmed 05/19/17] Calcium Carbonate/Vitamin D3 [Calcium 500-Vit D3 600 Tablet] 1 ea PO DAILY PRN 04/25/17 [History Confirmed 05/20/17] Meloxicam [Mobic] 15 mg PO DAILY PRN 04/25/17 [History Confirmed 05/20/17] proMETHazine tablet [Phenergan tablet] 25 mg PO 4X/DAY PRN PRN #30 tab 05/10/17 [Rx Confirmed 05/20/17] Docusate Sodium [Colace] 100 mg PO BID 05/19/17 [History Confirmed 05/19/17] Vancomycin 1,000 mg IV Q12H #76 bag 05/24/17 [Rx] Amlodipine [Norvasc] 5 mg PO DAILY tab 05/25/17 [Rx] Calcium Carb/Vitamin D [Os-Skinny 500MG + D] 1 tab PO DAILY@0800 tab 05/25/17 [Rx] Diazepam [Valium] 5 mg PO 4X/DAY PRN PRN #30 tab 05/25/17 [Rx] Docusate Sodium [Colace] 100 mg PO BID cap 05/25/17 [Rx] Lactobacillus Acidophilus [Acidophilus] 1 tab PO BID tab 05/25/17 [Rx] Meloxicam [Mobic] 15 mg PO DAILY PRN tab 05/25/17 [Rx] Oxycodone HCl/Acetaminophen [Percocet 5-325] 1 - 2 tab PO 4X/DAY PRN PRN 7 Days #60 tab 05/25/17 [Rx] Sertraline HCl [Zoloft] 150 mg PO DAILY@0600 tab 05/25/17 [Rx] proMETHazine tablet [Phenergan tablet] 25 mg PO Q4H PRN PRN tab 05/25/17 [Rx] traZODone [Desyrel] 50 mg PO QHS tab 05/25/17 [Rx] doxycycline hyclate 100 mg capsule See Label Instructions PO BID #28 cap 06/11/17 [Rx Confirmed 06/11/17] PFSH Medical History 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) BONE FRACTURES - BROKEN RIGHT ARM (Acute) Back pain (Acute) Breast cancer in female (Acute) Breast lump in female (Acute) 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 Social History Smoking Status: Former smoker second hand exposure: No alcohol intake: current alcohol intake frequency: a few times a week Alcohol type: other substance use type: does not use what type of physical activity do you participate in: other frequency: daily seatbelt use: always do you feel safe at home: Yes additional social history: SUN EXPOSURE: OCCASIONALLY HPI postop surgery 05/05/17 and 05/02/17: Details: Postop visit from her recent surgery on 05/02/17 where she underwent delayed right breast reconstruction with unipedicled contralateral TRAM flap and abdominal wall reconstruction with placement of Strattice acellular dermal matrix graft (100 cm2) and revision radiation scar contour deformity right breast with multiple W-plasties (40 cm2). Postop visit from her recent surgery on 05/05/17 where she underwent surgical preparation right breast TRAM flap reconstruction with incision and drainage and evacuation hematoma. She was discharged from the hospital on 05/10/17. Comes in today with a little more discomfort in her right breast reconstruction. There is some eschar at the edges of the flap. There has been no fever. There has been no drainage. A little more progression of the eschar noted. Sharp debridement was done today with a scalpel until some bleeding tissue seen. A little more of the inferior flap was debrided. Her Temp today was 99.6. There is no evidence of infection. There is no drainage and no odor. She is on Doxycycline and the wound culture from 05/15/17 is negative thus far. The abdominal wall incision is dry and intact and healing. Good abdominal wall contour is noted. Followup in a couple of days for another dressing change and for further debridement when necessary. Her Dad just and she needs to take tomorrow off. She will call if she notices any worsening of her wound. 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 Whitman - 01/12/16 mastectomy right breast and bilateral sentinel node biopsies by Dr. Juárez - 01/12/16 port placement - 02/02 delayed right breast reconstruction with unipedicle contralateral TRAM flap and abdominal wall reconstruction with placement of Strattice acellular dermal matrix graft (100 cm2) and revision radiation scar contour deformity right breast with multiple W-plasties (40 cm2) - 05/02/17 surgical preparation right breast TRAM flap reconstruction with incision and drainage and evacuation hematoma - 05/05/17 FAMILY HISTORY negative for breast cancer. SOCIAL HISTORY Patient is a former smoker. Passive smoke exposure - no Alcohol Use - no Regular Exercise - yes Passive smoke exposure - yes Assessment AND Plan Problems 1. 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 Late effect of radiation T66.XXXS 7. Partial loss of skin graft T86.828 8. Radiation skin ulcer of chest L98.499 9. Hematoma of breast N64.89 10. Postoperative hematoma of subcutaneous tissue following non-dermatologic procedure L76.32 11. Estrogen receptor negative status [ER-] Z17.1 12. 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 Partial loss of skin graft T86.828 Radiation skin ulcer of chest L98.499 Hematoma of breast N64.89 Postoperative hematoma of subcutaneous tissue following non- dermatologic procedure L76.32 Estrogen receptor negative status [ER-] Z17.1 Former cigarette smoker Z87.891 06/12/17 0002 <Electronically signed by Junior Whitman MD> Date Junior Whitman MD Cosigner Signature: Date (if applicable) CC: PLASTIC SURGERY Observed: 06/11/2017 Status: F Source: [place] VISIT REPORT 11:53 PM [facility] REPOSITORY [facility] [address] [place] [address] OFFICE VISIT Date of Service: 05/15/17 MR#: [id number] Acct: [id number] Name: SHARON BARRAGAN Rep #: [id number] : 1970 Provider: Junior Whitman MD Age/Sex: 47/F Location: [facility] Status: Signed Intake Vital Signs05/15/17 Respiratory Rate 16 Intake Visit Reasons: postop surgery 05/05/17 and 05/02/17 Lifeguard Required: No Accompanied by: Mother Is patient in pain?: Yes (RIGHT BREAST PAIN IS SHARP / ABDOMINAL PAIN IS DULL) Pain scale (1-10): 7 Allergies POULTRY Allergy (Uncoded 05/19/17 09:45) Anaphylaxis Medications Sertraline HCl [Zoloft] 150 mg PO DAILY 01/11/16 [History Confirmed 05/20/17] Trazodone HCl 50 mg PO QHS 04/20/16 [History Confirmed 05/20/17] Amlodipine [Norvasc] 5 mg PO DAILY PRN 04/25/17 [History Confirmed 05/19/17] Calcium Carbonate/Vitamin D3 [Calcium 500-Vit D3 600 Tablet] 1 ea PO DAILY PRN 04/25/17 [History Confirmed 05/20/17] Meloxicam [Mobic] 15 mg PO DAILY PRN 04/25/17 [History Confirmed 05/20/17] proMETHazine tablet [Phenergan tablet] 25 mg PO 4X/DAY PRN PRN #30 tab 05/10/17 [Rx Confirmed 05/20/17] Docusate Sodium [Colace] 100 mg PO BID 05/19/17 [History Confirmed 05/19/17] Vancomycin 1,000 mg IV Q12H #76 bag 05/24/17 [Rx] Amlodipine [Norvasc] 5 mg PO DAILY tab 05/25/17 [Rx] Calcium Carb/Vitamin D [Os-Skinny 500MG + D] 1 tab PO DAILY@0800 tab 05/25/17 [Rx] Diazepam [Valium] 5 mg PO 4X/DAY PRN PRN #30 tab 05/25/17 [Rx] Docusate Sodium [Colace] 100 mg PO BID cap 05/25/17 [Rx] Lactobacillus Acidophilus [Acidophilus] 1 tab PO BID tab 05/25/17 [Rx] Meloxicam [Mobic] 15 mg PO DAILY PRN tab 05/25/17 [Rx] Oxycodone HCl/Acetaminophen [Percocet 5-325] 1 - 2 tab PO 4X/DAY PRN PRN 7 Days #60 tab 05/25/17 [Rx] Sertraline HCl [Zoloft] 150 mg PO DAILY@0600 tab 05/25/17 [Rx] proMETHazine tablet [Phenergan tablet] 25 mg PO Q4H PRN PRN tab 05/25/17 [Rx] traZODone [Desyrel] 50 mg PO QHS tab 05/25/17 [Rx] doxycycline hyclate 100 mg capsule See Label Instructions PO BID #28 cap 06/11/17 [Rx Confirmed 06/11/17] PFSH Medical History 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) BONE FRACTURES - BROKEN RIGHT ARM (Acute) Back pain (Acute) Breast cancer in female (Acute) Breast lump in female (Acute) 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 Social History Smoking Status: Former smoker second hand exposure: No alcohol intake: current alcohol intake frequency: a few times a week Alcohol type: other substance use type: does not use what type of physical activity do you participate in: other frequency: daily seatbelt use: always do you feel safe at home: Yes additional social history: SUN EXPOSURE: OCCASIONALLY HPI postop surgery 05/05/17 and 05/02/17: Details: Postop visit from her recent surgery on 05/02/17 where she underwent delayed right breast reconstruction with unipedicled contralateral TRAM flap and abdominal wall reconstruction with placement of Strattice acellular dermal matrix graft (100 cm2) and revision radiation scar contour deformity right breast with multiple W-plasties (40 cm2). Postop visit from her recent surgery on 05/05/17 where she underwent surgical preparation right breast TRAM flap reconstruction with incision and drainage and evacuation hematoma. She was discharged from the hospital on 05/10/17. Comes in today with a little more discomfort in her right breast reconstruction. There is some eschar at the edges of the flap. There has been no fever. There has been no drainage. A little more progression of the eschar noted. Sharp debridement was done today with a scalpel until some bleeding tissue seen. TRAM flap is stable at the moment. Since more debridement was needed today, a wound culture was done. A positive culture will necessitate antibiotic therapy. The abdominal wall incision is dry and intact and healing. Good abdominal wall contour is noted. The remaining abdominal drain was removed today without difficulty. Followup tomorrow for another dressing change and for further debridement when necessary. 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 Whitman - 01/12/16 mastectomy right breast and bilateral sentinel node biopsies by Dr. Juárez - 01/12/16 port placement - 02/02 delayed right breast reconstruction with unipedicle contralateral TRAM flap and abdominal wall reconstruction with placement of Strattice acellular dermal matrix graft (100 cm2) and revision radiation scar contour deformity right breast with multiple W-plasties (40 cm2) - 05/02/17 surgical preparation right breast TRAM flap reconstruction with incision and drainage and evacuation hematoma - 05/05/17 FAMILY HISTORY negative for breast cancer. SOCIAL HISTORY Patient is a former smoker. Passive smoke exposure - no Alcohol Use - no Regular Exercise - yes Passive smoke exposure - yes Assessment AND Plan Problems 1. 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 Late effect of radiation T66.XXXS 7. Partial loss of skin graft T86.828 8. Radiation skin ulcer of chest L98.499 9. Hematoma of breast N64.89 10. Postoperative hematoma of subcutaneous tissue following non-dermatologic procedure L76.32 11. Estrogen receptor negative status [ER-] Z17.1 12. 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 Disproportion of reconstructed breast N65.1 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 Late effect of radiation T66.XXXS Partial loss of skin graft T86.828 Radiation skin ulcer of chest L98.499 Hematoma of breast N64.89 Postoperative hematoma of subcutaneous tissue following non- dermatologic procedure L76.32 Estrogen receptor negative status [ER-] Z17.1 Former cigarette smoker Z87.891 06/11/17 2353 <Electronically signed by Junior Whitman MD> Date Junior Whitman MD Cosigner Signature: Date (if applicable) CC: PLASTIC SURGERY Observed: 06/11/2017 Status: F Source: [place] VISIT REPORT 10:05 PM [facility] REPOSITORY [facility] [address] [place] [address] OFFICE VISIT Date of Service: 05/12/17 MR#: [id number] Acct: [id number] Name: SHARON BARRAGAN Rep #: [id number] : 1970 Provider: Junior Whitman MD Age/Sex: 47/F Location: [facility] Status: Signed Intake Vital Signs05/12/17 Respiratory Rate 16 Intake Visit Reasons: postop surgery 05/05/17 and 05/02/17 Lifeguard Required: No Accompanied by: Mother Is patient in pain?: Yes (BREAST BURNING AND ACHING) Pain scale (1-10): 4 Allergies POULTRY Allergy (Uncoded 05/19/17 09:45) Anaphylaxis Medications Sertraline HCl [Zoloft] 150 mg PO DAILY 01/11/16 [History Confirmed 05/20/17] Trazodone HCl 50 mg PO QHS 04/20/16 [History Confirmed 05/20/17] Amlodipine [Norvasc] 5 mg PO DAILY PRN 04/25/17 [History Confirmed 05/19/17] Calcium Carbonate/Vitamin D3 [Calcium 500-Vit D3 600 Tablet] 1 ea PO DAILY PRN 04/25/17 [History Confirmed 05/20/17] Meloxicam [Mobic] 15 mg PO DAILY PRN 04/25/17 [History Confirmed 05/20/17] proMETHazine tablet [Phenergan tablet] 25 mg PO 4X/DAY PRN PRN #30 tab 05/10/17 [Rx Confirmed 05/20/17] Docusate Sodium [Colace] 100 mg PO BID 05/19/17 [History Confirmed 05/19/17] Vancomycin 1,000 mg IV Q12H #76 bag 05/24/17 [Rx] Amlodipine [Norvasc] 5 mg PO DAILY tab 05/25/17 [Rx] Calcium Carb/Vitamin D [Os-Skinny 500MG + D] 1 tab PO DAILY@0800 tab 05/25/17 [Rx] Diazepam [Valium] 5 mg PO 4X/DAY PRN PRN #30 tab 05/25/17 [Rx] Docusate Sodium [Colace] 100 mg PO BID cap 05/25/17 [Rx] Lactobacillus Acidophilus [Acidophilus] 1 tab PO BID tab 05/25/17 [Rx] Meloxicam [Mobic] 15 mg PO DAILY PRN tab 05/25/17 [Rx] Oxycodone HCl/Acetaminophen [Percocet 5-325] 1 - 2 tab PO 4X/DAY PRN PRN 7 Days #60 tab 05/25/17 [Rx] Sertraline HCl [Zoloft] 150 mg PO DAILY@0600 tab 05/25/17 [Rx] proMETHazine tablet [Phenergan tablet] 25 mg PO Q4H PRN PRN tab 05/25/17 [Rx] traZODone [Desyrel] 50 mg PO QHS tab 05/25/17 [Rx] PFSH Medical History 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) BONE FRACTURES - BROKEN RIGHT ARM (Acute) Back pain (Acute) Breast cancer in female (Acute) Breast lump in female (Acute) 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 Social History Smoking Status: Former smoker second hand exposure: No alcohol intake: current alcohol intake frequency: a few times a week Alcohol type: other substance use type: does not use what type of physical activity do you participate in: other frequency: daily seatbelt use: always do you feel safe at home: Yes additional social history: SUN EXPOSURE: OCCASIONALLY HPI postop surgery 05/05/17 and 05/02/17: Details: Postop visit from her recent surgery on 05/02/17 where she underwent delayed right breast reconstruction with unipedicled contralateral TRAM flap and abdominal wall reconstruction with placement of Strattice acellular dermal matrix graft (100 cm2) and revision radiation scar contour deformity right breast with multiple W-plasties (40 cm2). Postop visit from her recent surgery on 05/05/17 where she underwent surgical preparation right breast TRAM flap reconstruction with incision and drainage and evacuation hematoma. She was discharged from the hospital on 05/10/17. Comes in today with some discomfort in her right breast reconstruction. There is some eschar at the edges of the flap. There has been no fever. There has been no drainage. No progression of the eschar noted. TRAM flap is stable at the moment. No debridement was done today because it's Monday and don't want a bleeding risk this . Will debride on Monday. There is no evidence of infection at this time. If things change, then I will culture the wound. The abdominal wall incision is dry and intact and healing. Good abdominal wall contour is noted. Will remove the remaining abdominal drain next week. Followup Monday for another dressing change and for further debridement when necessary. 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 Whitman - 01/12/16 mastectomy right breast and bilateral sentinel node biopsies by Dr. Juárez - 01/12/16 port placement - 02/02 delayed right breast reconstruction with unipedicle contralateral TRAM flap and abdominal wall reconstruction with placement of Strattice acellular dermal matrix graft (100 cm2) and revision radiation scar contour deformity right breast with multiple W-plasties (40 cm2) - 05/02/17 surgical preparation right breast TRAM flap reconstruction with incision and drainage and evacuation hematoma - 05/05/17 FAMILY HISTORY negative for breast cancer. SOCIAL HISTORY Patient is a former smoker. Passive smoke exposure - no Alcohol Use - no Regular Exercise - yes Passive smoke exposure - yes Assessment AND Plan Problems 1. 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 Late effect of radiation T66.XXXS 7. Partial loss of skin graft T86.828 8. Radiation skin ulcer of chest L98.499 9. Hematoma of breast N64.89 10. Postoperative hematoma of subcutaneous tissue following non-dermatologic procedure L76.32 11. Estrogen receptor negative status [ER-] Z17.1 12. 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 Partial loss of skin graft T86.828 Radiation skin ulcer of chest L98.499 Hematoma of breast N64.89 Postoperative hematoma of subcutaneous tissue following non- dermatologic procedure L76.32 Estrogen receptor negative status [ER-] Z17.1 Former cigarette smoker Z87.891 06/11/172204 <Electronically signed by Junior Whitman MD> Date Junior Whitman MD Cosigner Signature: Date (if applicable) CC: PLASTIC SURGERY Observed: 06/07/2017 Status: F Source: [place] VISIT REPORT 1:59 AM [facility] REPOSITORY [facility] [address] [place] [address] OFFICE VISIT Date of Service: 05/11/17 MR#: [id number] Acct: [id number] Name: SHARON BARRAGAN Rep #: [id number] : 1970 Provider: Junior Whitman MD Age/Sex: 47/F Location: [facility] Status: Signed Intake Vital Signs05/11/17 Height 5 ft 05/11/17 Weight: 179 lb Intake Visit Reasons: postop surgery 05/05/17 and 05/02/17 Lifeguard Required: No Accompanied by: Mother Is patient in pain?: Yes (BREAST BURNING PAIN) Pain scale (1-10): 9 Allergies POULTRY Allergy (Uncoded 05/19/17 09:45) Anaphylaxis Medications Sertraline HCl [Zoloft] 150 mg PO DAILY 01/11/16 [History Confirmed 05/20/17] Trazodone HCl 50 mg PO QHS 04/20/16 [History Confirmed 05/20/17] Amlodipine [Norvasc] 5 mg PO DAILY PRN 04/25/17 [History Confirmed 05/19/17] Calcium Carbonate/Vitamin D3 [Calcium 500-Vit D3 600 Tablet] 1 ea PO DAILY PRN 04/25/17 [History Confirmed 05/20/17] Meloxicam [Mobic] 15 mg PO DAILY PRN 04/25/17 [History Confirmed 05/20/17] proMETHazine tablet [Phenergan tablet] 25 mg PO 4X/DAY PRN PRN #30 tab 05/10/17 [Rx Confirmed 05/20/17] Docusate Sodium [Colace] 100 mg PO BID 05/19/17 [History Confirmed 05/19/17] Vancomycin 1,000 mg IV Q12H #76 bag 05/24/17 [Rx] Amlodipine [Norvasc] 5 mg PO DAILY tab 05/25/17 [Rx] Calcium Carb/Vitamin D [Os-Skinny 500MG + D] 1 tab PO DAILY@0800 tab 05/25/17 [Rx] Diazepam [Valium] 5 mg PO 4X/DAY PRN PRN #30 tab 05/25/17 [Rx] Docusate Sodium [Colace] 100 mg PO BID cap 05/25/17 [Rx] Lactobacillus Acidophilus [Acidophilus] 1 tab PO BID tab 05/25/17 [Rx] Meloxicam [Mobic] 15 mg PO DAILY PRN tab 05/25/17 [Rx] Oxycodone HCl/Acetaminophen [Percocet 5-325] 1 - 2 tab PO 4X/DAY PRN PRN 7 Days #60 tab 05/25/17 [Rx] Sertraline HCl [Zoloft] 150 mg PO DAILY@0600 tab 05/25/17 [Rx] Trazodone HCl [Desyrel] 50 mg PO QHS tab 05/25/17 [Rx] proMETHazine tablet [Phenergan tablet] 25 mg PO Q4H PRN PRN tab 05/25/17 [Rx] PFSH Medical History 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) BONE FRACTURES - BROKEN RIGHT ARM (Acute) Back pain (Acute) Breast cancer in female (Acute) Breast lump in female (Acute) 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 Social History Smoking Status: Former smoker second hand exposure: No alcohol intake: current alcohol intake frequency: a few times a week Alcohol type: other substance use type: does not use what type of physical activity do you participate in: other frequency: daily seatbelt use: always do you feel safe at home: Yes additional social history: SUN EXPOSURE: OCCASIONALLY HPI postop surgery 05/05/17 and 05/02/17: Details: Postop visit from her recent surgery on 05/02/17 where she underwent delayed right breast reconstruction with unipedicled contralateral TRAM flap and abdominal wall reconstruction with placement of Strattice acellular dermal matrix graft (100 cm2) and revision radiation scar contour deformity right breast with multiple W-plasties (40 cm2). Postop visit from her recent surgery on 05/05/17 where she underwent surgical preparation right breast TRAM flap reconstruction with incision and drainage and evacuation hematoma. She was discharged from the hospital on 05/10/17. Comes in today with some discomfort in her right breast reconstruction. There is some eschar at the edges of the flap. There has been no fever. There has been no drainage. Using a scalpel, I sharply debrided the edges of the TRAM flap in all directions down to bleeding tissue. I was then able to pack these openings with Silver dressings to be done daily. Since we had trouble securing Home Health upon discharge secondary to her insurance, that is why she came to the office today for a dressing change and wound care. There is no evidence of infection at this time. If things change, then I will culture the wound. She tolerated the Silver dressing change reasonably well. The abdominal wall incision is dry and intact and healing. Good abdominal wall contour is noted. Will remove the remaining abdominal drain next week. Followup tomorrow for another dressing change and for further debridement when necessary. 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 Whitman - 01/12/16 mastectomy right breast and bilateral sentinel node biopsies by Dr. Juárez - 01/12/16 port placement - 02/02 delayed right breast reconstruction with unipedicle contralateral TRAM flap and abdominal wall reconstruction with placement of Strattice acellular dermal matrix graft (100 cm2) and revision radiation scar contour deformity right breast with multiple W-plasties (40 cm2) - 05/02/17 surgical preparation right breast TRAM flap reconstruction with incision and drainage and evacuation hematoma - 05/05/17 FAMILY HISTORY negative for breast cancer. SOCIAL HISTORY Patient is a former smoker. Passive smoke exposure - no Alcohol Use - no Regular Exercise - yes Passive smoke exposure - yes Assessment AND Plan Problems 1. 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 Late effect of radiation T66.XXXS 7. Partial loss of skin graft T86.828 8. Radiation skin ulcer of chest L98.499 9. Hematoma of breast N64.89 10. Postoperative hematoma of subcutaneous tissue following non-dermatologic procedure L76.32 11. Estrogen receptor negative status [ER-] Z17.1 12. 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 Partial loss of skin graft T86.828 Radiation skin ulcer of chest L98.499 Hematoma of breast N64.89 Postoperative hematoma of subcutaneous tissue following non- dermatologic procedure L76.32 Estrogen receptor negative status [ER-] Z17.1 Former cigarette smoker Z87.891 06/07/17 0159 <Electronically signed by Junior Whitman MD> Date Junior Whitman MD Cosigner Signature: Date (if applicable) CC: OPERATIVE REPORT Observed: 06/05/2017 Status: F Source: [place] 12:23 AM [facility] Medical Records Department [address] [place] [address] [place] [address] Operative Report 05/05/17 1834 MR#: [id number] Acct: [id number] Name: SHARON BARRAGAN Rep #: [id number] : 1970 47 From: Junior Whitman MD PCP: Josué Price MD Status: DIS IN Y Location: [facility] [place] [id number] ADDENDUM by Junior Whitman MD on 06/05/17 at 0023 Code Visit Surgery Charges CPT - 57898 ICD-10 - C50.911, L76.32, N64.89, Z90.13, T66.xxxS, N65.1, N65.0, F40.298, Z17.1, Z87.891 06/05/17 0023 <Electronically signed by Junior Whitman MD> Date Junior Whitman MD cc: Junior Whitman MD; Josué Price MD * Signed Report of Operation Date of Procedure: 05/05/17 Pre-Operative Diagnosis: 1. Postop hematoma right TRAM flap breast reconstruction. 2. Right breast cancer. 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 5. Disproportion reconstructed breasts. 6. Late effect radiation right breast. 7. Estrogen receptor status negative. 8. Former smoker. Post-Operative Diagnosis: Same. Surgery/Procedure Performed:: Surgical preparation right breast TRAM flap reconstruction with incision and drainage and evacuation hematoma. Description of Surgical Findings:: 47 year old woman presents for evaluation breast reconstruction. Her initial bilateral mastectomy was on 01/12/16. She underwent IV chemotherapy initially and this was followed by radiation therapy to the right breast. She finished the radiation therapy in 10/03. She states that during this adjuvant therapy, she has gained a little weight and has developed some extra tissue in the lower anterior abdominal wall. The last time I saw her in 03/04, she was interested in breast reconstruction with placement of implants. Now she is contemplating the use of autogenous tissue for the radiated right breast. She denies any fever. She states she has stopped smoking since her diagnosis of breast cancer. On 05/02/17, the patient underwent delayed right breast reconstruction with unipedicle contralateral TRAM flap and abdominal wall reconstruction with placement of Strattice acellular dermal matrix graft (100 cm2) and revision radiation scar contour deformity right breast with multiple W-plasties (40 cm2). Postoperatively the TRAM flap was initially soft with minor bruising at the incision lines. This morning, the flap was more firm and swollen with more bruising. The Hgb had dropped to 7.8. Recommended operative intervention to evacuate the hematoma to take pressure off the blood supply to the flap. Draining the hematoma and taking pressure off the flap will help to salvage the flap. The patient was informed of the risks and complications of the procedure including alternatives to surgery. These were discussed with the patient personally. The patient voices understanding and wishes to proceed. 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 Drains: None. Estimated Blood Loss (mL): 200 ml. Description of Procedure: Patient was taken to OR in supine position and was placed under general anesthesia. Her right breast was prepped and draped in the usual fashion. SCD's were placed for DVT prophylaxis. Perioperative antibiotics were given intravenously. The two Amrit drains were removed as I cut the suture to the skin. The incision sutures laterally and superiorly were removed. There was some bleeding that was drained. Some clot was also evacuated. The bleeding points were few in number and hemostasis was obtained with electrocautery. There was about 200 ml blood loss. Preop based on the firmness of the flap, I anticipated there would be more bleeding than there was. After the drainage, the flap was noticeably softer. The blistering at the edges of the flap were debrided. The underlying dermis was red and viable. Will observe for eventual salvageability. The wound was copiously irrigated out with saline. I did not remove the sutures in the inferomedial area because of the presence of the vascular pedicle. When I lifted the flap to get hemostasis, I checked the muscle and it wasn't kinked. It appeared soft and viable. No bleeding or hematoma was seen in the subcutaneous tunnel where the flap was brought through into the breast. I then approximated the flap incisions at the zigzag points with 3-0 Prolene sutures. This left the intervening incision edges open for packing. This will allow further drainage if necessary. When I released the sutures initially the flap softened from removal of the pressure of the hematoma as well as possibly too much tension on the closure of the flap. The wounds were packed with Kerlix gauze and Betadine followed by dry Kerlix gauze and ABD pads. Patient tolerated the procedure well and was sent to PACU in satisfactory condition. She had received 2 units PRBC preoperatively. So will check a Hgb postop. She will be sent upstairs for continued postop care and observation of the flap. Will change the dressing to Aquacel Silver tomorrow. Grafts/Implants Used: None. - Complications None. - Admit VTE Documentation VTE Present on Admission: No VTE Mechan Device Prophylaxis: SCD's VTE Pharm Prophylaxis ordered?: Yes 05/31/17 0852 <Electronically signed by Junior Whitman MD> Date Junior Whitman MD CC: Junior Whitman MD; Josué Price MD Signed OPERATIVE REPORT Observed: 06/05/2017 Status: F Source: [place] 12:19 AM [facility] REPOSITORY [facility] Medical Records Department [address] [place] [id number] Operative Report 05/02/17 2155 MR#: [id number] Acct: [id number] Name: SHARON BARRAGAN Rep #: [id number] : 1970 47 From: Junior Whitman MD PCP: Josué Price MD Status: DIS IN Y Location: [facility] [place] [id number] ADDENDUM by Junior Whitman MD on 06/05/17 at 0019 Code Visit Surgery Charges CPT - 35148 ICD-10 - C50.911, F40.298, Z90.13, N65.1, N65.0, T66.xxxS, Z17.1, Z87.891 99018 C50.911, Z90.13, N65.0, T66.xxxS, N65.1, F40.298, Z17.1, Z87.891 29397 C50.911, Z90.13, N65.0, T66.xxxS, N65.1, F40.298, Z17.1, Z87.891 06/05/17 0019 <Electronically signed by Junior Whitman MD> Date Junior Whitman MD cc: Chris Juárez MD; Junior Whitman MD; Josué Price MD * Signed Report of Operation Date of Procedure: 05/02/17 Pre-Operative Diagnosis: 1. Right breast cancer. 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 4. Disproportion reconstructed breasts. 5. Late effect radiation right breast. 6. Estrogen receptor status negative. 7. Former smoker. Post-Operative Diagnosis: Same. Surgery/Procedure Performed:: 1. Delayed right breast reconstruction with unipedicle contralateral TRAM flap. 2. Abdominal wall reconstructionn with placement of Strattice acellular dermal matrix graft (100 cm2). 3. Revision radiation scar contour deformity right breast with multiple W-plasties (40 cm2). Description of Surgical Findings:: 47 year old woman presents for evaluation breast reconstruction. Her initial bilateral mastectomy was on 01/12/16. She underwent IV chemotherapy initially and this was followed by radiation therapy to the right breast. She finished the radiation therapy in 10/03. She states that during this adjuvant therapy, she has gained a little weight and has developed some extra tissue in the lower anterior abdominal wall. The last time I saw her in 03/04, she was interested in breast reconstruction with placement of implants. Now she is interested in the use of autogenous tissue for the radiated right breast. She understands that a zig zag incision will be on the breast in order to soften up the radiation fibrosis which leads to a sharp cutoff between the flap and the radiated skin. Multiple W-plasties will be done which will soften up the breast skin for closure with good soft contour. She denies any fever. She states she has stopped smoking since her diagnosis of breast cancer. That is great, but there are still some residual effects from her smoking in the past that may affect healing. She voices understanding and wishes to proceed. The patient was informed of the risks and complications of the procedure including alternatives to surgery. These were discussed with the patient personally. The patient voices understanding and wishes to proceed. Some of the risks and complications were included in a form from the [employer]. Encouraged the patient to stop smoking as it may have deleterious effects on wound healing. She states she has stopped smoking after her breast cancer diagnosis. IV Fluids - 4000 ml. Urine Output - 400 ml. I used Strattice acellular dermal matrix graft (10 x 10 cm, firm). Reference Number - [id number]. Lot Number - [id number]. Expiration - June 17, 2018. I used Geri absorbable hemostat (I used 3 vials, 1 1/2 in the breast and 1 1/2 in the abdomen). Reference Number - [id number]. Lot Number - [id number]. Expiration - January 14, 2022. bindery machine feeder offbearer: Jj Jonas. bindery machine feeder offbearer: Leigh Ann Brush. Type of Anesthesia:: General Specimen's removed: Right breast tissue to Pathology. Drains: Amrit x 4 (2 in the right breast and 2 in the abdomen). Estimated Blood Loss (mL): 250 ml. Fluids Replaced: 4400 ml (IV Fluids 4000 ml, Urine Output 400 ml). Description of Procedure: In the preop area, the patient stood up and in the standing position, preoperative markings were made. The sternum midline was marked down to the umbilicus. The inframammary folds marked bilaterally. I then kourtney a horizontal ellipse on the abdominal wall for the TRAM flap. I kourtney a superior line in the supraumbilical area and the inferior line in the pubic area. Lower line will be determined by the ability to close the superior line down with the patient in the sitting position during the procedure. The patient was then taken to the OR in the supine position and placed under general anesthesia and her breasts and abdomen were prepped and draped in usual fashion. SCDs were placed for DVT prophylaxis. Perioperative antibiotics were given intravenously. A Terrell catheter was then placed. Initially, I infiltrated the previous scar on the right breast. I also infiltrated the markings on the abdominal wall with 1% Xylocaine and epinephrine. I initially made an incision through the vertical scar on the radiated right breast. In order to have a better contour between the radiated skin and the TRAM flap, I went ahead and marked in a zigzag fashion the skin edges on the right breast reconstruction, which will soften up the skin edges from the radiation fibrosis and allow better contour. I dissected down to the chest wall. There was a lot of fibrosis in the subcutaneous tissue and on the muscle and the fibrotic tissue was excised and sent to Pathology for analysis to rule out carcinoma. The breast pocket was a lot softer after the excision of the dense fibrotic radiation tissue. No evidence of infection was noted in the breast pocket. I then made a horizontal incision in the supraumbilical area down through Melani's fascia down to the abdominal wall fascia. I then elevated the abdominal wall skin flap up toward the inframammary fold on the right side. I made a subcutaneous pocket extending up to the inframammary fold on the right in the medial aspect. When I connected the abdominal wall area with the breast pocket, the subcutaneous tunnel was able to fit all five fingers in there and I felt that was a large enough tunnel for the placement of the TRAM. I then sat the patient up and I was able to bring the leading edge of the abdominal wall flap down to the abdominal wall skin crease that I marked in the standing position. I was able to suture it together temporarily without too much tension. I went ahead and made the inferior incision. I then made a kimberly-shaped incision in the umbilical area. I then took out a Doppler to butch out the placement of the vascular perforators on both the rectus muscles. The left rectus had vascular perforators. I had a hard time with the right rectus and some of the explanation could be that the breast was radiated which made hearing the perforators more difficult. Therefore I decided to use the contralateral unipedicle flap. The patient has good skin elasticity. The patient was a smoker but quit after her breast cancer diagnosis. I did not want to use the right side because the right breast is radiated, so I will try to avoid using the right muscle. Therefore, I made a vertical incision in the rectus sheath and dissected off the rectus muscle on the left side down to the TRAM flap. I then elevated the TRAM flap on both the left and right side from the lateral side in toward the lateral rectus sheath. On the right side, I elevated the TRAM flap skin all the way to the midline. Vascular perforators were ligated using surgical clips. The most distal portion of zone 4 was excised since that will not be used for the reconstruction at this time. After elevating the portion of the TRAM flap to the lateral side of the muscle,, I then carefully went a little bit more medially and dissected out the perforators and ligated them with surgical clips. I also went a little bit laterally from the midline and ligated any vascular perforators with surgical clips. I then kourtney a vertical ellipse from my initial vertical incision on the rectus sheath to encompass the TRAM flap to the lower portion of the incision. Incision was made and I then continued to dissect out the rectus muscle from the rectus sheath, but that a portion of the rectus muscle was still attached to the TRAM flap skin and subcutaneous tissue. I then incised the rectus muscle on the left side in the pubic area. I dissected out the deep inferior epigastric artery and ligated using surgical clips. Also, I dissected out the accompanying vein and ligated that with surgical clips as well. I only saw 1 vein. Normally I see 2 veins accompanying the artery. Once the muscle was incised distally, I then elevated it off of the posterior rectus sheath to the subcostal margin. I placed some 3-0 Vicryl sutures from the TRAM flap through the fascia into the muscle to give extra security to this flap to minimize shearing when I transfer the flap through the subcutaneous tunnel into the right breast pocket. I then dissected around the umbilicus to free up the TRAM flap. Care was taken to leave some tissue to keep the umbilicus from necrosing, but I did not want to leave too much tissue because I wanted to take some of the umbilical perforators with the TRAM flap. Once this was completed, the patient was given 250 mg of Solu-Medrol IV to minimize swelling in the vascular pedicle. I then rotated the TRAM flap through the subcutaneous tissue into the right breast wound in a clockwise direction. I looked to see that there was no kinking on the muscles on the vascular pedicle. Once, I rotated it into the breast pocket, I secured the skin edges to the TRAM flap temporally using 3-0 Monocryl suture. I then closed the fascial defect on the left using 0 Surgipro [id number] interrupted sutures. I also placed horizontal sutures in the right anterior rectus sheath to help centralize the umbilicus. I felt her fascia was a little weak, so I went ahead and reinforced the abdominal wall with Strattice acellular dermal matrix graft. I used a 10 x 10 cm piece of graft and this was used to cover the rectus fascia inferior to the umbilicus. Some of the graft covered the umbilicus and a V-shaped incision was made to wrap the Strattice around the umbilicus. I then secured the Strattice to the abdominal wall fascia using 2-0 Novafil simple interrupted sutures. Prior to closing the rectus fascia on the left, I made sure that the inferior rectus muscle stump was dry with no evidence of bleeding problems. Any bleeding issues that were seen were cauterized. I then placed 2 Amrit drains through separate stab incisions inferiorly and laterally, and secured to the skin using 3-0 nylon suture. I elevated the abdominal wall skin flap and removed some of the excess sub Melani's fat to aid in the contouring of the abdominal wall at wound closure. I then irrigated the abdominal wall with saline, and hemostasis was obtained using electrocautery. I then placed the patient in the sitting position about 30-40 degrees and I temporarily closed the abdominal wall incision centrally using 2-0 Vicryl suture. I then made an upside down cruciate incision where the umbilicus is to be brought through. An incision was made and some of the excess subcutaneous tissue was also removed to help with the inward appearance of the umbilicus. I then placed 4 stay sutures from the dermis of the abdominal wall flap to the abdominal rectus abdominal wall fascia and then to the dermis of the umbilicus. These sutures will be sutured later. I then removed the sutures in the abdominal wall closure to free up the abdominal wall flap at this time and then I sprayed the abdominal wall with Geri absorbable hemostat. I used 1 1/2 vials for the abdomen and I will use 1 1/2 vials for the breast. Once again, I looked up where the muscle went through the subcutaneous tunnel, and there was a small area of muscle laterally that felt a little tight, and I incised it. This softened up the muscle and relieved the tension on the muscle. No bleeding was noted in the muscle flap as it went into the breast pocket. I then closed the abdominal wall in multiple layers using 2-0 Vicryl [id number] interrupted sutures for Melani's fascia layer. The deep dermis and subcutaneous tissue was approximated using 2-0 Vicryl interrupted sutures Skin was approximated using 3-0 V-Loc unidirectional barbed running subcuticular suture. The 3-0 Vicryl sutures ere used to cinch down the umbilicus. Between these 4 stay sutures, I used a 3-0 Vicryl suture for simple interrupted sutures. Good inward appearance was noted on the umbilicus. I then reshaped the TRAM flap in the breast pocket. The radiated skin edges were excised in a zigzag fashion in preparation for a W-plasties reconstruction. I went ahead and made markings on the TRAM flap after it was reshaped in the breast pocket. Good shape and contour was noted. No evidence of vascular compromise was seen on the flap. I then cut out my sutures and made incisions where excess skin that was covered up the breast skin. This excess skin was deepithelialized. Once the TRAM flap was out of the breast wall pocket, I then irrigated out the breast pocket with saline. Any bleeding was controlled with hemostasis with electrocautery. I placed a 2 Amrit drains through separate stab incision laterally and secured to the skin using 3-0 nylon suture. Good hemostasis was noted. No bleeding was noted in the subcutaneous tunnel. Good bleeding was noted in the epithelized areas. No vascular compromise was noted on the TRAM flap. I then sprayed Geri absorbable hemostat into the breast wound. I then placed the TRAM flap back into the wound and closed the breast incisions with 3-0 Monocryl interrupted sutures for deep dermis and subcutaneous tissue. The skin was approximated using 4-0 Prolene simple interrupted sutures at the apex of the zigs and the zags. The skin incisions both in the abdomen and the breasts were then reinforced with Histoacryl skin tissue adhesive. Antibiotic ointment was applied to the umbilicus area and the drain sites. Dry gauze dressings were applied both to the abdomen and the TRAM flap. At the end of the procedure, the TRAM flap was pink and soft with no evidence of vascular compromise. I then placed a surgical bra on the breast and abdominal wall binder. The patient tolerated the procedure well and will be sent to the recovery room in satisfactory condition. She will be admitted for several days. Initially, she will stay in bed tonight and she will then dangle at the bedside in the morning. The next step will be ambulating within the room and then after that will be ambulating in the hallway with assistance. She will have the drains in for several days and be maintained on antibiotics until the drains are removed. She will be on a lifting restriction as well and wearing a surgical bra and abdominal binder. She will keep her head elevated during the initial postoperative care. It is important that she is on no caffeine, no decaf, no tea, no chocolate diet for 6 weeks. I will continue to Solumedrol for 24 hours to minimize swelling on the vascular pedicle. Also postoperatively as long as the BP > 110, I will give daily Procardia XL to minimize spasm in the vascular pedicle. Grafts/Implants Used: Strattice acellular dermal matrix graft. - Complications None. - Admit VTE Documentation VTE Present on Admission: No VTE Mechan Device Prophylaxis: SCD's VTE Pharm Prophylaxis ordered?: Yes 05/31/17 0852 <Electronically signed by Junior Whitman MD> Date Junior Whitman MD CC: Chris Juárez MD; Junior Whitman MD; Josué Price MD Signed DISCHARGE SUMMARY Observed: 05/27/2017 Status: F Source: [place] 3:53 PM [facility] REPOSITORY [facility] Medical Records Department [address] [place] [address] Discharge Summary 05/25/17 1128 MR#: [id number] Acct: [id number] Name: SHARON BARRAGAN Rep #: [id number] : 1970 47 From: Junior Whitman MD PCP: Josué Price MD Status: DIS IN Y Location: [facility] [id number] Discharge Date and Diagnosis Date of Admission: 05/19/17 Date of Discharge: 05/25/17 - Primary Discharge Diagnosis Compromised TRAM flap wound right breast reconstruction with partial loss. Right breast cancer. MRSE. Increased alkaline phosphatase. 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 Disproportion reconstructed breasts. Cancerphobia left breast. Smoker, quit for the surgery. Estrogen receptor negative status [ER-]. H/o hematoma right TRAM flap breast reconstruction. Anemia of chronic disease. Atelectasis. Hospital Course and Treatment Imaging Results: Abdomen/Pelvis CT 05/24/17 10:03 IMPRESSION: Postoperative changes are seen at the site of right mastectomy with a small amount of air deep in the subcutaneous tissues extending into the lateral anterior abdominal wall. Electronically Signed: Jin Kingston MD at 11:02 EST Tel [phone], Service support , Chest X-Ray 05/24/17 10:03 IMPRESSION: Findings suggestive of postoperative changes in the right breast. Increased markings at the lung bases worse on the right side suggestive bibasilar atelectasis. Electronically Signed: Jin Kingston MD at 11:22 EST Tel [phone], Service support , Consultations 05/19/17 14:23 Consult: Onc/Wound/joint machine operator Routine Comment: Reason for Consult:: right breast wound Operations: None, - - 05/23/17 - Surgical preparation right breast reconstruction with excisional debridement compromised TRAM flap (256 cm2). Procedures: PICC line placement, Wound vac placement Summary of Care Provided: The patient is a 47 year old F who presented for evaluation breast reconstruction. Her initial bilateral mastectomy was on 01/12/16. She underwent IV chemotherapy initially and this was followed by radiation therapy to the right breast. She finished the radiation therapy in 10/03. She states that during this adjuvant therapy, she has gained a little weight and has developed some extra tissue in the lower anterior abdominal wall. The last time I saw her in 03/04, she was interested in breast reconstruction with placement of implants. Now she is contemplating the use of autogenous tissue for the radiated right breast. She denies any fever. She states she has stopped smoking since her diagnosis of breast cancer. On 05/02/17, the patient underwent delayed right breast reconstruction with unipedicle contralateral TRAM flap and abdominal wall reconstruction with placement of Strattice acellular dermal matrix graft (100 cm2) and revision radiation scar contour deformity right breast with multiple W-plasties (40 cm2). Patient tolerated the procedure well. Due to the length of the procedure, postop Lovenox was given daily. On the third postop day, she felt tired and looked pale. Her Hgb had decreased to 7.8. The breast was firm and swollen. There was more moderate bruising. The patient developed a hematoma and was taken to the OR on this day and underwent surgical preparation right breast TRAM flap reconstruction with incision and drainage and evacuation hematoma. Besides evacuating the hematoma, operative intervention was done to take pressure off the blood supply to the flap. This will help the salvage the flap. 2 units of PRBC was also given. The wound was left open and dressing changes with Silver dressings was started. Discussed with the patient that VAC may be used in the future. Discussed with the patient that because of the length of the surgery, Lovenox was necessary to give to minimize blood clots and PE. However, with the added protection comes the risk of bleeding from the Lovenox. The important thing is to recognize the risk and take care of the bleeding if it occurs to minimize further damage and compromise to the flap. Postoperatively, there was improvement in the bruising. Some of the blistering was debrided in the OR and the underlying dermis appeared more viable. The central aspect of the flap was soft and viable. Her Hgb improved to 10.5 after the PRBC. A few days later, there was some dry eschar forming inferiorly. It remained stable the rest of the hospitalization. No progression of the eschar was noted. There was no clinical evidence of infection. The flap remained soft as well. The central aspect of the flap remained viable. The patient developed increased discomfort with the dressing changes because of pressure from the packing. She was able to tolerate the dressing changes reasonably well in anticipation of discharge on the eighth postop day on 05/10/17. Her drainage output from both the breast and the abdomen ranged from a high of 645 ml on the first postop day to 55 ml on the day of discharge. I saw her in the office every day or every other day for evaluation and debridement. It was noted that the Silver dressings were drying out the wound. So it was decided to change to Dakin's dressing changes which was ordered. On 05/19/17, the patient came in for a wound check and debridement, and she felt cruddy and had a low grade fever. Therefore it was recommended to the patient to be admitted for IV antibiotics and more aggressive wound care with Dakin's since she hadn't started it yet as an outpatient. Zosyn antibiotics were started. MRSA by DNA PCR was negative. After a few days of sharp debridement with a curette, some bleeding was seen but not enough as there were persistent areas of eschar and tissue compromise. It was discussed with the patient to proceed with operative debridement for more definitive treatment since the patient was getting frustrated at watching more and more tissue being debrided at her bedside. The day before surgery on 05/22/17, the initial culture from admission showed MRSE and Stapylococcus warneri. So the Zosyn was stopped and Vancomycin was started. Ceftriaxone was not sensitive. Because she will need IV antibiotics after discharge, a PICC line was placed. So on 05/23/17, she was taken to OR where she underwent surgical preparation right breast reconstruction with excisional debridement compromised TRAM flap (256 cm2). A portion of the TRAM flap remained viable right over the muscle pedicle and was secured to the inferomedial aspect of the wound. She tolerated the procedure well. Additional cultures were sent. The VAC was applied tomorrow. The remaining flap stayed soft and pink and viable for the rest of the hospitalization. Her Alkaline Phosphatase decreased slightly from 141 on 05/19/17 to 131 on 05/23/17. It was still slightly elevated and because of her history of breast cancer, a CT Abdomen and Pelvis was done. It showed a normal liver. Will still monitor the Alkaline Phosphatase after discharge because she is on Vancomycin. I anticipate it will continue to decrease, but if it increases then will need evaluation by Oncology. Her Prealbumin was 19.4 on admission. Encourage nutritional supplementation with protein to help the healing process. Her anemia of chronic disease was stable during her hospital stay as her Hgb was 10.8 on admission and 9.6 at discharge. She will followup with her PCP as an outpatient to further evaluate her chronic anemia. Because of her history of radiation to her right breast, she will be evaluated at the Wound Center for HBO treatments while she is getting her wound care with the VAC. A CXR was done which showed some atelectasis but was otherwise ok for HBO treatments. As an outpatient, will check another CXR to further monitor her atelectasis to make sure it resolves. On the 2nd postop day and the 6th hospital day, we were able to arrange Home Health and the infusion company to arrange the antibiotics, and she was discharged home. Wrote script for the Vancomycin. Wrote scripts for Percocet for pain (60 tabs) and for Valium for spasm (30 tabs). Condition upon discharge stable. After her antibiotics, and HBO treatments, and wound care with the VAC, will reassess the wound at that time to determine the next step in the revision right breast reconstruction process. Discharge Activity: May not drive while taking narcotic pain medications., - - elevate head. no heavy lifting. Return to work on:: 07/18/17 - tentative May shower in (days): 2 - may shower on the days the vac is changed. Weight Bearing Status: Weight bearing as tolerated Keep extremity elevated above heart level: - - elevate head. Additional Activity Instructions:: wear abdominal binder. Call your doctor if your incision/area has: Continuous Slow Oozing, Sudden Increased Bleeding, Increased Pain/ Swelling, Increased Redness, Foul Smelling Discharge, Swelling at the incision site Call your doctor if you observe: Fever of 101 or Higher, Coldness, Increased Pain, Shortness of breath, Chest pain, Calf discomfort, Uncontrolled pain Suture Line Care: - - home health to assist with vac changes to right breast three times per week at 150 mmHg continuous suction. Change Dressing in (Days):: 2 - vac changes three times per week. Cleanse incision/area with: - - may cleanse the wound with soap and water on the days the vac is changed. Home Medications: Medications to take at Discharge Sertraline HCl [Zoloft] 150 mg PO DAILY 01/11/16 Trazodone HCl 50 mg PO QHS 04/20/16 Amlodipine [Norvasc] 5 mg PO DAILY PRN 04/25/17 Calcium Carbonate/Vitamin D3 [Calcium 500-Vit D3 600 Tablet] 1 ea PO DAILY PRN 04/25/17 Meloxicam [Mobic] 15 mg PO DAILY PRN 04/25/17 ProMETHAzine [Phenergan] 25 mg PO 4X/DAY PRN PRN #30 tab 05/10/17 Docusate Sodium [Colace] 100 mg PO BID 05/19/17 Vancomycin 1,000 mg IV Q12H #76 bag 05/24/17 Amlodipine [Norvasc] 5 mg PO DAILY tablet 05/25/17 Calcium Carb/Vitamin D [Os-Skinny 500MG + D] 1 tablet PO DAILY@0800 tablet 05/25/17 Diazepam [Valium] 5 mg PO 4X/DAY PRN PRN #30 tab 05/25/17 Docusate Sodium [Colace] 100 mg PO BID capsule 05/25/17 Lactobacillus Acidophilus [Acidophilus] 1 tablet PO BID tablet 05/25/17 Meloxicam [Mobic] 15 mg PO DAILY PRN tablet 05/25/17 Oxycodone HCl/Acetaminophen [Percocet 5-325] 1 - 2 tab PO 4X/DAY PRN PRN 7 Days #60 tab 05/25/17 ProMETHAzine [Phenergan] 25 mg PO Q4H PRN PRN tablet 05/25/17 Sertraline HCl [Zoloft] 150 mg PO DAILY@0600 tablet 05/25/17 Trazodone HCl [Desyrel] 50 mg PO QHS tablet 05/25/17 Following Prescrptions Were Given to Patient: Diazepam [Valium] 5 mg PO 4X/DAY PRN PRN #30 tab PRN Reason: Spasms Oxycodone HCl/Acetaminophen [Percocet 5-325] 1 - 2 tab PO 4X/DAY PRN PRN 7 Days #60 tab PRN Reason: Pain Vancomycin 1,000 mg IV Q12H #76 bag Primary Care Physician: Josué Price MD [Primary Care Provider] - Please Follow Up With: Junior Whitman MD - call [phone] if any questions. When: monday05/30/17 at wound center at 130 pm. Meaningful Use Info Meaningful Use Diagnoses (Choose all that apply): None applicable 05/27/17 9333 <Electronically signed by Junior Whitman MD> Date Junior Whitman MD Cosigner Signature (if applicable): Date CC: Chris Juárez MD; Junior Whitman MD; Josué Price MD; [facility] Signed DISCHARGE INSTRUCTION Observed: 05/25/2017 Status: F Source: [place] 11:28 AM [facility] REPOSITORY [facility] Medical Records Department [address] [place] [address] Instructions for Home/Discharge Instructions 05/25/17 1120 MR#: [id number] Acct: [id number] Name: ROCKSHARON E Rep #: [id number] : 1970 47 From: Junior Whitman MD PCP: Josué Price MD Status: ADM IN You will use the following diet at home:: Regular, Other - encourage nutritional supplementation with protein to help the healing process. Discharge Activity: May not drive while taking narcotic pain medications., - - elevate head. no heavy lifting. Return to work on:: 07/18/17 - tentative May shower in (days): 2 - may shower on the days the vac is changed. Weight Bearing Status: Weight bearing as tolerated Lifting Restrictions: 20 lbs. Keep extremity elevated above heart level: - - elevate head. Additional Activity Instructions:: wear abdominal binder. Call your doctor if your incision/area has: Continuous Slow Oozing, Sudden Increased Bleeding, Increased Pain/ Swelling, Increased Redness, Foul Smelling Discharge, Swelling at the incision site Call your doctor if you observe: Fever of 101 or Higher, Coldness, Increased Pain, Shortness of breath, Chest pain, Calf discomfort, Uncontrolled pain Suture Line Care: - - home health to assist with vac changes to right breast three times per week at 150 mmHg continuous suction. Change Dressing in (Days):: 2 - vac changes three times per week. Cleanse incision/area with: - - may cleanse the wound with soap and water on the days the vac is changed. Additional Instructions: Home Health to assist with VAC changes to right breast three times per week at 150 mmHg continuous suction. Pending Tests on Discharge: Home Health to draw CBC, CMP, ESR, CRP and Vancomycin Trough qMonday x 6 weeks. Please fax results to Wound Center at [phone]. Pharmacy to dose the Vancomycin. Allergies/Adverse Reactions: Allergies POULTRY Allergy (Uncoded 05/19/17 09:45) Anaphylaxis Medications to take at Discharge Sertraline HCl [Zoloft] 150 mg PO DAILY 01/11/16 Trazodone HCl 50 mg PO QHS 04/20/16 Amlodipine [Norvasc] 5 mg PO DAILY PRN 04/25/17 Calcium Carbonate/Vitamin D3 [Calcium 500-Vit D3 600 Tablet] 1 ea PO DAILY PRN 04/25/17 Meloxicam [Mobic] 15 mg PO DAILY PRN 04/25/17 ProMETHAzine [Phenergan] 25 mg PO 4X/DAY PRN PRN #30 tab 05/10/17 Docusate Sodium [Colace] 100 mg PO BID 05/19/17 Vancomycin 1,000 mg IV Q12H #76 bag 05/24/17 Amlodipine [Norvasc] 5 mg PO DAILY tablet 05/25/17 Calcium Carb/Vitamin D [Os-Skinny 500MG + D] 1 tablet PO DAILY@0800 tablet 05/25/17 Diazepam [Valium] 5 mg PO 4X/DAY PRN PRN #30 tab 05/25/17 Docusate Sodium [Colace] 100 mg PO BID capsule 05/25/17 Lactobacillus Acidophilus [Acidophilus] 1 tablet PO BID tablet 05/25/17 Meloxicam [Mobic] 15 mg PO DAILY PRN tablet 05/25/17 Oxycodone HCl/Acetaminophen [Percocet 5-325] 1 - 2 tab PO 4X/DAY PRN PRN 7 Days #60 tab 05/25/17 ProMETHAzine [Phenergan] 25 mg PO Q4H PRN PRN tablet 05/25/17 Sertraline HCl [Zoloft] 150 mg PO DAILY@0600 tablet 05/25/17 Trazodone HCl [Desyrel] 50 mg PO QHS tablet 05/25/17 The following prescriptions were given: Diazepam [Valium] 5 mg PO 4X/DAY PRN PRN #30 tab PRN Reason: Spasms Oxycodone HCl/Acetaminophen [Percocet 5-325] 1 - 2 tab PO 4X/DAY PRN PRN 7 Days #60 tab PRN Reason: Pain Vancomycin 1,000 mg IV Q12H #76 bag Primary Care Physician: Josué Price MD [Primary Care Provider] - Please Follow Up With: Junior Whitman MD - call [phone] if any questions. When: monday05/30/17 at [facility] at 130 pm. Proposed Discharge Date: 05/25/17 05/25/17 1128 <Electronically signed by Junior Whitman MD> Date Junior Whitman MD CC: Chris Juárez MD; Josué Price MD; [facility] ABDOMEN/PELVIS WITHOUT Observed: 05/24/2017 Status: F Source: [place] CONT 10:05 AM [facility] REPOSITORY [facility] Imaging Services [address] [place] [address] Abdomen/Pelvis without Cont MR#: [id number] Acct: [id number] Name: SHARON BARRAGAN Rep #: [id number] : 1970 F 47 From: Jin Kingston MD PCP: Josué Price MD Status: ADM IN Study: Abdomen/Pelvis without Cont Date of Exam: 05/24/17 Exam# [id number] Ordering Dr: Junior Whitman MD STUDY: CT ABDOMEN AND PELVIS WITHOUT CONTRAST REASON FOR EXAM: Female, 47 years old. Compromise transfer flap. History of breast cancer. RADIATION DOSAGE (If Supplied By Facility): CTDIvol = ( 14.53 ) mGy, DLP = ( 719.78 ) mGycm TECHNIQUE: Transaxial images were obtained from the dome of the diaphragm to the symphysis pubis without oral contrast, and without intravenous contrast. Sagittal and coronal images were reconstructed. Individualized dose optimization techniques were used for this CT. COMPARISON: Comparison is made with prior study dated April 20, 2016. FINDINGS: The patient is status post right mastectomy and transflap reconstruction. There is evidence of a drainage tube within the operative site. There is evidence of postoperative changes with a small amount of air in the deep soft tissues overlying the inferior aspect of the anterior right hemithorax. Mild degree of increased markings at the lung bases slightly worse on the left side suggestive of a bibasilar atelectasis. There is no evidence of pneumothorax. The visualized portions of the heart are within normal limits. Normal liver. Normal gallbladder and extrahepatic biliary system. Normal spleen. Normal pancreas. Normal bilateral adrenal glands. Normal right kidney. Normal left kidney. Normal visualized stomach. Normal small intestine. Normal colon. The appendix is visualized and appears normal. There is scattered atherosclerotic calcification of the abdominal aorta, without a demonstrated aneurysm. Normal inferior vena cava. Normal retroperitoneum. Normal urinary bladder. There is absence of the uterus consistent with a prior hysterectomy. There is evidence of prior anterior ventral hernia repair with mesh. Normal osseous structures. CT/Abdomen/Pelvis without Cont IMPRESSION: Postoperative changes are seen at the site of right mastectomy with a small amount of air deep in the subcutaneous tissues extending into the lateral anterior abdominal wall. Electronically Signed: Jin Kingston MD at 11:02 EST Tel [phone], Service support , CC: Junior Whitman MD; Josué Price MD Manufacturing Electrician: Signed CHEST PA AND LATERAL Observed: 05/24/2017 Status: F Source: [place] 10:05 AM [facility] REPOSITORY [facility] Imaging Services [address] [place] [address] Chest PA and Lateral MR#: [id number] Acct: [id number] Name: SHARON BARRAGAN Rep #: [id number] : 1970 F 47 From: Jni Kingston MD PCP: Josué Price MD Status: ADM IN Study: Chest PA and Lateral Date of Exam: 05/24/17 Exam# [id number] Ordering Dr: Junior Whitman MD STUDY: X-RAY CHEST REASON FOR EXAM: Female, 47 years old. Postoperative wound infection. Right mastectomy and reconstruction. TECHNIQUE: PA and lateral views of the chest. COMPARISON: Comparison is made with prior examination dated February 12, 2016. FINDINGS: Surgical clips are seen overlying the right lower thoracic wall. A drainage tube is seen within this surgical site and this is in keeping with the postoperative breast reconstruction changes. Small amount of subcutaneous air is seen within the right lateral chest wall There now is evidence of increased markings at the lung bases worse on the right side suggestive bibasilar atelectasis. There is blunting of the right costophrenic angle. Normal size heart. Normal mediastinum and robi. Normal visualized pulmonary arteries. Normal visualized aortic arch and descending thoracic aorta. Normal visualized thoracic spine. Normal visualized ribs, clavicles, and shoulders. There is no demonstrated abnormality of the visualized soft tissue structures of the upper abdomen. RAD/Chest PA and Lateral IMPRESSION: Findings suggestive of postoperative changes in the right breast. Increased markings at the lung bases worse on the right side suggestive bibasilar atelectasis. Electronically Signed: Jin Kingston MD at 11:22 EST Tel [phone], Service support , CC: Junior Whitman MD; Josué Price MD Manufacturing Electrician: Signed VANCOMYCIN, TROUGH Collected: 05/24/2017 Status: F Source: [place] LEVEL 8:20 AM [facility] REPOSITORY TYPE CODE TESTS RESULT OUT OF REFERENCE UNITS RANGE LAB L501.8820 5.0-15.0 ug/mL High VANCO, TROUGH 19.1 Result Comment: VANCOMYCIN STANDARED DRUG THERAPY TROUGH LEVEL: 5.0 - 15.0 mg/L VANCOMYCIN HIGH INTENSITY THERAPY TROUGH LEVEL: 15.0 - 20.0 mg/L High Intensity therapy recommended for serious life threatening infections include: - Meningitis -Endocarditis -Pneumonia (Ventilator/Healtcare Associated) -Sepsis PLEASE CONTACT PHARMACY SERVICES (#[id number]) FOR INTERPRETATION OF RESULTS. Performed By: #### L501.8820 #### [facility] Laboratory [facility] [address] [place], [place], [id number] CBC-COMPLETE BLOOD CNT Collected: 05/24/2017 Status: F Source: [place] NO DIFF 4:25 AM [facility] REPOSITORY Order Comment: SPECIMEN OBTAINED FROM LINE DRAW TYPE CODE TESTS RESULT OUT OF RANGE REFERENCE UNITS LAB L100.1000 4.4-11.0 K/mm3 Normal WBC 7.1 LAB L100.1200 4.2-5.4 M/mm3 Low RBC 3.15 LAB L100.1300 12.0-15.0 g/dl Low HGB 9.6 LAB L100.1400 37-47 % Low HCT 28.5 LAB L100.1500 81-99 fL Normal MCV 90.5 LAB L100.1600 27.0-32.0 pg Normal MCH 30.5 LAB L100.1700 32-36 g/gl Normal MCHC 33.7 LAB L100.1810 11.6-14.6 % Normal RDW CV 12.2 LAB L100.1820 35.1-43.9 fl Normal RDW SD 39.2 LAB L100.1900 150-450 K/mm3 Normal PLT 292 LAB L100.2000 6.2-12.0 fl Normal MPV 8.4 Performed By: #### L100.0500 #### [facility] [address] [place], [address] BASIC METABOLIC Collected: 05/24/2017 Status: F Source: [place] PROFILE (BMP) 4:25 AM [facility] REPOSITORY Order Comment: SPECIMEN OBTAINED FROM LINE DRAW TYPE CODE TESTS RESULT OUT OF RANGE REFERENCE UNITS LAB L501.0100 74-106 mg/dL High GLU 119 Result Comment: Fasting Glucose result from 100 to 125 mg/dL suggests IMPAIRED HOMEOSTASIS per A.D.A. criteria. Please note revised GLUCOSE reference range effective 2017. LAB L501.1000 7-18 mg/dL Normal BUN 12 LAB L501.1100 0.55-1.02 mg/dL Normal CREAT,SERUM 0.63 Result Comment: The validity of the calculated GFR AND GFRAA in patients over 70 years has not been determined. Clinical correlation is essential. LAB L501.1110 >60 mL/min Normal EST GFR 106 Result Comment: Non- GFR Calc LAB L501.1115 >60 mL/min Normal EST GFR - AA 129 Result Comment: GFR Calc LAB L501.1255 ml/min Normal Estimated CRCL 82.41 LAB L501.1300 10-20 RATIO Normal BUN/CRE 18.9 LAB L501.2200 8.5-10 mg/dL Low .1 CA 8.3 LAB L501.5300 136-14 mmol/L Normal 5 NA 141 LAB L501.5600 3.5-5. mmol/L Normal 1 K 3.5 LAB L501.5900 98-107 mmol/L Normal CL 106 LAB L501.6100 21.0-3 mmol/L Normal 2.0 CO2 27.0 LAB L501.6200 5-15 Normal GAP 8 Performed By: #### L500.2500 #### [facility] [address] [place], [address] AFB Observed: 05/23/2017 Status: F Source: [place] CULT/SMEAR [id number] 11:23 AM [facility] REPOSITORY Comments: #1- COLLECTED IN OR- RIGHT BREAST RECONSTRUCTED TR AFB Smear/Fluor TESTING PERFORMED AT [facility]. ORIGINAL REPORT ON FILE IN LAB CONTAINS ADDITIONAL TEST SITE INFORMATION. Smear, Acid Fast Tissue Grinding Smear: Negative AFB Cult TESTING PERFORMED AT [facility]. ORIGINAL REPORT ON FILE IN LAB CONTAINS ADDITIONAL TEST SITE INFORMATION. Culture, Acid Fast NO ACID-FAST BACILLI ISOLATED AFTER 6 WEEKS. Performed By: #### M100.3880 #### [facility] [address] [place], [address] Observed: 05/23/2017 Status: F Source: [place] CULTURE, DEEP WOUND 11:20 AM [facility] REPOSITORY Order Date: 10/19/16 Comments: #1- COLLECTED IN OR, RIGHT BREAST RECONSTRUCTED TR Gram Stain Gram Stain Rare White Blood Cells 1+ Gram positive cocci Wound Culture ORGANISM 1: Staphylococcus epidermidis Amount Growth 1+ ORGANISM 2: Acinetobacter lwoffii Amount Growth Rare Staphylococcus epidermidis: REACTION Benzylpenicillin NF >=0.5 R Cefoxitin *NF + Clindamycin $$ >=8 R Inducable Clindamycin [place] - Erythromycin $ >=8 R Gentamicin $ <=0.5 S Levofloxacin $ <=0.12 S Linezolid $$$$ 2 S Oxacillin NF >=4 R Tigecycline $$$$ 0.5 S Rifampin $$ 1 S Tetracycline NF >=16 R Vancomycin $ 1 S (NF) indicates non-formulary drug at [facility]. Approval by Infectious Disease Specialist required before non-formulary drugs may be ordered and/or dispensed. * [facility] guidelines does not recommend testing of cephalosporins. This interpretation is deduced from Beta-lactam/penicillin results. Acinetobacter lwoffii: REACTION Cefepime $ <=1 S Ceftazidime *NF 2 S Ceftriaxone $ 8 S Ciprofloxacin $ 0.5 S Gentamicin $ <=1 S Imipenem *NF <=0.25 S Levofloxacin $ <=0.12 S Tobramycin $ <=1 S Trimethoprim/Sulfametho $ <=20 S (NF) indicates non-formulary drug at [facility]. Approval by Infectious Disease Specialist required before non-formulary drugs may be ordered and/or dispensed. Cult, Anaerobic No anaerobic bacteria isolated. Performed By: #### M100.1500 #### [facility] [address] [place], [address] Observed: 05/23/2017 Status: F Source: TAISHA LINK 11:20 [facility] [id number] REPOSITORY Comments: COLLECTED IN OR, RIGHT BREAST RECONSTRUCTED TRAM Is this test to exclude patient from TB Isolation? N Cu,[id number] TESTING PERFORMED AT [facility]. ORIGINAL REPORT ON FILE IN LAB CONTAINS ADDITIONAL TEST SITE INFORMATION. CUF No yeast or mold isolated after [address] TESTING PERFORMED AT [facility]. ORIGINAL REPORT ON FILE IN LAB CONTAINS ADDITIONAL TEST SITE INFORMATION. Fungus Stain No yeast or mold observed. Performed By: #### M600.1900 #### [facility] [address]. [place], [place], [address] CBC-COMPLETE BLOOD CNT Collected: 05/23/2017 Status: F Source: [place] NO DIFF 4:35 AM [facility] REPOSITORY TYPE CODE TESTS RESULT OUT OF RANGE REFERENCE UNITS LAB L100.1000 4.4-11.0 K/mm3 Normal WBC 5.6 LAB L100.1200 4.2-5.4 M/mm3 Low RBC 3.37 LAB L100.1300 12.0-15.0 g/dl Low HGB 10.4 LAB L100.1400 37-47 % Low HCT 30.6 LAB L100.1500 81-99 fL Normal MCV 90.8 LAB L100.1600 27.0-32.0 pg Normal MCH 30.9 LAB L100.1700 32-36 g/gl Normal MCHC 34.0 LAB L100.1810 11.6-14.6 % Normal RDW CV 12.3 LAB L100.1820 35.1-43.9 fl Normal RDW SD 39.1 LAB L100.1900 150-450 K/mm3 Normal PLT 276 LAB L100.2000 6.2-12.0 fl Normal MPV 8.3 Performed By: #### L100.0500, L101.9900 #### [facility] [address] [place], [address] ERYTHROCYTE SED RATE Collected: 05/23/2017 Status: F Source: [place] 4:35 AM [facility] REPOSITORY TYPE CODE TESTS RESULT OUT OF RANGE REFERENCE UNITS LAB L102.0000 0-20 mm/hr High SED RATE 49 Performed By: #### L100.0500, L101.9900 #### [facility] [address] [place], [address] COMPREHENSIVE METABOLIC Collected: 05/23/2017 Status: F Source: [place] 4:35 AM [facility] REPOSITORY TYPE CODE TESTS RESULT OUT OF RANGE REFERENCE UNITS LAB L501.0100 74-106 mg/dL Normal GLU 98 Result Comment: Please note revised GLUCOSE reference range effective 2017. LAB L501.1000 7-18 mg/dL Normal BUN 18 LAB L501.1100 0.55-1.02 mg/dL Normal CREAT,SERUM 0.67 Result Comment: The validity of the calculated GFR AND GFRAA in patients over 70 years has not been determined. Clinical correlation is essential. LAB L501.1110 >60 mL/min Normal EST GFR 99 Result Comment: Non- GFR Calc LAB L501.1115 >60 mL/min Normal EST GFR - AA 120 Result Comment: GFR Calc LAB L501.1255 ml/min Normal Estimated CRCL 77.49 LAB L501.1300 10-20 RATIO High BUN/CRE 26.7 LAB L501.1500 6.4-8. g/dL Low 2 T PROT 6.2 LAB L501.1800 3.2-5. g/dL Low 0 ALB 2.6 LAB L501.1950 2.2-4. g/dL Normal 2 GLOB 3.6 LAB L501.2000 0.9-2. RATIO Low 4 A/G 0.7 LAB L501.2200 8.5-10 mg/dL Normal .1 CA 8.7 LAB L501.4100 15-37 U/L Normal AST 15 LAB L501.4305 45-117 U/L High ALK P 131 LAB L501.4405 13-56 U/L Normal ALT 20 Result Comment: Please note revised ALT reference range effective 2017. LAB L501.4600 0.20-1.00 mg/dL Normal T BILI 0.50 LAB L501.5300 136-145 mmol/L Normal NA 137 LAB L501.5600 3.5-5.1 mmol/L Normal K 3.9 LAB L501.5900 98-107 mmol/L Normal CL 101 LAB L501.6100 21.0-32.0 mmol/L Normal CO2 28.0 LAB L501.6200 5-15 Normal GAP 8 Performed By: #### L500.4050, L501.6710 #### [facility] [address] [place], [address] CRP Collected: 05/23/2017 Status: F Source: [place] 4:35 AM [facility] REPOSITORY TYPE CODE TESTS RESULT OUT OF RANGE REFERENCE UNITS LAB L501.6710 0.0-3.0 mg/L High 87.10 C-REACTIVE PROT Result Comment: C-Reactive Protein (CRP) provides useful information for the diagnosis, therapy and monitoring of inflammatory processes and associated diseases. For the evaluation of Relative Risk for Cardiovascular Disease, a High Sensitivity CRP (HSCRP) should be ordered. Performed By: #### L500.4050, L501.6710 #### [facility] [address] [place], [address] BREAST MASTECTOMY Observed: 05/23/2017 Status: F Source: [place] ([place] 12:00 AM [facility] REPOSITORY Patient: SHARON BARRAGAN : 1970 (47/F) Acct Num: [id number] Phys: Junior Whitman MD Unit Num: [id number] Loc: MS3 [id number] Specimen: [id number] Received: 05/23/17 - 1439 Spec Type: BREAST TISSUES TISSUES: Right breast, NOS GROSS DESCRIPTION Received in fixative is one container labeled with the patient's name and designated right breast constructed tram flap. The specimen consists of multiple pieces of yellow fibroadipose tissue with a few of the pieces with skin. In aggregate these fragments measure 22 x 22 x 7 cm. The skin surfaces are unremarkable. Many of the adipose tissue show congested and hemorrhagic cut surfaces. [employer] sections are submitted in six cassettes. / JOHNIE:sharon 05/23 TC:2 CPT: 19583 HEADER OPERATION: Breast reconstruction, excisional debridement PRE-OP DIAGNOSIS: Compromised tram flap wound right breast reconstruction, worsening TISSUE SUBMITTED: Right breast reconstructed tram flap MICROSCOPIC DESCRIPTION Slides are reviewed. MICROSCOPIC DIAGNOSIS Skin and soft tissue of right breast, excision: Ulceration with associated acute and chronic inflammation, granulation and recent hemorrhage into fatty tissue. No evidence of malignancy. AM:sharon 05/24/17 Signed Lee Cassandra 05/24/17 <signature on file> Performed By: #### PBREAST #### [facility] [address] [facility]. [place], [place], [address] CBC-COMPLETE BLOOD CNT Collected: 05/20/2017 Status: F Source: [place] NO DIFF 9:56 AM [facility] REPOSITORY TYPE CODE TESTS RESULT OUT OF RANGE REFERENCE UNITS LAB L100.1000 4.4-11.0 K/mm3 Normal WBC 6.9 LAB L100.1200 4.2-5.4 M/mm3 Low RBC 3.84 LAB L100.1300 12.0-15.0 g/dl Low HGB 11.7 LAB L100.1400 37-47 % Low HCT 34.3 LAB L100.1500 81-99 fL Normal MCV 89.3 LAB L100.1600 27.0-32.0 pg Normal MCH 30.5 LAB L100.1700 32-36 g/gl Normal MCHC 34.1 LAB L100.1810 11.6-14.6 % Normal RDW CV 12.3 LAB L100.1820 35.1-43.9 fl Normal RDW SD 39.4 LAB L100.1900 150-450 K/mm3 Normal PLT 280 LAB L100.2000 6.2-12.0 fl Normal MPV 8.4 Performed By: #### L100.0500 #### [facility] [address] [facility]. [place], [place], [address] MRSA WOUND DNA BY Collected: 05/19/2017 Status: F Source: [place] PCR 2:15 PM [facility] REPOSITORY TYPE CODE TESTS RESULT OUT OF RANGE REFERENCE UNITS LAB L8200.1100 Negative Normal MRSA Negative RESULT LAB L8200.1150 Negative Normal SA RESULT NEGATIVE Performed By: #### L8200.1075 #### [facility] [address] [place], [address] Observed: 05/19/2017 Status: F Source: [place] CULTURE, DEEP WOUND 2:15 PM [facility] REPOSITORY Comments: right breast wound Gram Stain Gram Stain No White Blood Cells No organisms seen Wound Culture ORGANISM 1: Staphylococcus epidermidis Amount Growth 2+ ORGANISM 2: Staphylococcus warneri Amount Growth 2+ ORGANISM 3: Bacillus sp., not anthracis Amount Growth Rare Staphylococcus epidermidis: REACTION Benzylpenicillin NF >=0.5 R Cefoxitin *NF + Clindamycin $$ >=8 R Inducable Clindamycin Res[place] - Erythromycin $ >=8 R Gentamicin $ <=0.5 S Levofloxacin $ <=0.12 S Linezolid $$$$ 1 S Oxacillin NF >=4 R Tigecycline $$$$ 0.5 S Rifampin $$ <=0.5 S Tetracycline NF >=16 R Vancomycin $ 2 S (NF) indicates non-formulary drug at [facility]. Approval by Infectious Disease Specialist required before non-formulary drugs may be ordered and/or dispensed. * CLSI guidelines does not recommend testing of cephalosporins. This interpretation is deduced from Beta-lactam/penicillin results. Staphylococcus warneri: REACTION Benzylpenicillin NF >=0.5 R Cefoxitin *NF - Clindamycin $$ <=0.25 S Inducable Clindamycin Res[place] - Erythromycin $ <=0.25 S Gentamicin $ <=0.5 S Levofloxacin $ <=0.12 S Oxacillin NF <=0.25 S Tigecycline $$$$ <=0.12 S Rifampin $$ <=0.5 S Tetracycline NF <=1 S Vancomycin $ <=0.5 S (NF) indicates non-formulary drug at [facility]. Approval by Infectious Disease Specialist required before non-formulary drugs may be ordered and/or dispensed. * CLSI guidelines does not recommend testing of cephalosporins. This interpretation is deduced from Beta-lactam/penicillin results. Cult, Anaerobic No anaerobic bacteria isolated. Performed By: #### M100.1500 #### [facility] [address] [place], [address] COMPREHENSIVE METABOLIC Collected: 05/19/2017 Status: F Source: [place]KE 12:55 PM [facility] REPOSITORY TYPE CODE TESTS RESULT OUT OF RANGE REFERENCE UNITS LAB L501.0100 74-106 mg/dL Normal GLU 89 Result Comment: Please note revised GLUCOSE reference range effective 2017. LAB L501.1000 7-18 mg/dL Normal BUN 13 LAB L501.1100 0.55-1.02 mg/dL Normal CREAT,SERUM 0.74 Result Comment: The validity of the calculated GFR AND GFRAA in patients over 70 years has not been determined. Clinical correlation is essential. LAB L501.1110 >60 mL/min Normal EST GFR 89 Result Comment: Non- GFR Calc LAB L501.1115 >60 mL/min Normal EST GFR - AA 107 Result Comment: GFR Calc LAB L501.1255 ml/min Normal Estimated CRCL 70.16 LAB L501.1300 10-20 RATIO Normal BUN/CRE 17.5 LAB L501.1500 6.4-8. g/dL Normal 2 T PROT 6.5 LAB L501.1800 3.2-5. g/dL Low 0 ALB 2.9 LAB L501.1950 2.2-4. g/dL Normal 2 GLOB 3.6 LAB L501.2000 0.9-2. RATIO Low 4 A/G 0.8 LAB L501.2200 8.5-10 mg/dL Normal .1 CA 8.7 LAB L501.4100 15-37 U/L Normal AST 19 LAB L501.4305 45-117 U/L High ALK P 141 LAB L501.4405 13-56 U/L Normal ALT 25 Result Comment: Please note revised ALT reference range effective 2017. LAB L501.4600 0.20-1.00 mg/dL Normal T BILI 0.30 LAB L501.5300 136-145 mmol/L Normal NA 140 LAB L501.5600 3.5-5.1 mmol/L Normal K 4.2 LAB L501.5900 98-107 mmol/L Normal CL 106 LAB L501.6100 21.0-32.0 mmol/L Normal CO2 27.0 LAB L501.6200 5-15 Normal GAP 7 Performed By: #### L500.4050, L501.6710, L506.0500 #### [facility] [address] [place], [address] CRP Collected: 05/19/2017 Status: F Source: [place] 12:55 PM [facility] REPOSITORY TYPE CODE TESTS RESULT OUT OF RANGE REFERENCE UNITS LAB L501.6710 0.0-3.0 mg/L High 41.80 C-REACTIVE PROT Result Comment: C-Reactive Protein (CRP) provides useful information for the diagnosis, therapy and monitoring of inflammatory processes and associated diseases. For the evaluation of Relative Risk for Cardiovascular Disease, a High Sensitivity CRP (HSCRP) should be ordered. Performed By: #### L500.4050, L501.6710, L506.0500 #### [facility] [address] [place] [place], [address] PREALBUMIN Collected: 05/19/2017 Status: F Source: [place] 12:55 PM [facility] REPOSITORY TYPE CODE TESTS RESULT OUT OF REFERENCE UNITS RANGE LAB L506.0500 20.0-40.0 mg/dL Low PREALBUMIN 19.4 Performed By: #### L500.4050, L501.6710, L506.0500 #### [facility] [address] [place], [address] ERYTHROCYTE SED RATE Collected: 05/19/2017 Status: F Source: [place] 12:55 PM [facility] REPOSITORY TYPE CODE TESTS RESULT OUT OF RANGE REFERENCE UNITS LAB L102.0000 0-20 mm/hr High SED RATE 57 Performed By: #### L101.9900, L100.0500 #### [facility] [address] [place], [address] CBC-COMPLETE BLOOD CNT Collected: 05/19/2017 Status: F Source: [place] NO DIFF 12:55 PM [facility] REPOSITORY TYPE CODE TESTS RESULT OUT OF RANGE REFERENCE UNITS LAB L100.1000 4.4-11.0 K/mm3 Normal WBC 6.6 LAB L100.1200 4.2-5.4 M/mm3 Low RBC 3.58 LAB L100.1300 12.0-15.0 g/dl Low HGB 10.8 LAB L100.1400 37-47 % Low HCT 32.1 LAB L100.1500 81-99 fL Normal MCV 89.7 LAB L100.1600 27.0-32.0 pg Normal MCH 30.2 LAB L100.1700 32-36 g/gl Normal MCHC 33.6 LAB L100.1810 11.6-14.6 % Normal RDW CV 12.9 LAB L100.1820 35.1-43.9 fl Normal RDW SD 42.0 LAB L100.1900 150-450 K/mm3 Normal PLT 242 LAB L100.2000 6.2-12.0 fl Normal MPV 8.5 Performed By: #### L101.9900, L100.0500 #### [facility] [address] [place], [address] Observed: 05/15/2017 Status: F Source: [place] CULTURE, SURGERY DEEP 7:18 PM [facility] WOUND REPOSITORY List Antibiotics Last 48 Hours? Doxycycline List Antibiotics to be Started? N Gram Stain Gram Stain 1+ White Blood Cells No organisms seen Wound Culture No growth aerobically. Cult, Anaerobic No growth in 5 days. Performed By: #### M100.1550 #### [facility] [address] [place], [address] DISCHARGE SUMMARY Observed: 05/14/2017 Status: F Source: [place] 11:59 AM [facility] REPOSITORY [facility] Medical Records Department [address] [place] [id number] Discharge Summary 05/10/17 1511 MR#: [id number] Acct: [id number] Name: SHARON BARRAGAN Rep #: [id number] : 1970 47 From: Junior Whitman MD PCP: Josué Price MD Status: DIS IN Y Location: [facility] [place] [id number] Discharge Date and Diagnosis Date of Admission: 05/02/17 Date of Discharge: 05/10/17 - Primary Discharge Diagnosis Right breast cancer. Compromised TRAM flap right breast reconstruction with partial loss. Postop hematoma right TRAM flap breast reconstruction. Anemia of chronic disease, acute on chronic. 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 Disproportion reconstructed breasts. Cancerphobia left breast. Smoker, quit for the surgery. Estrogen receptor negative status [ER-]. Hospital Course and Treatment Imaging Results: None. CONSULTATIONS None. Operations: - - 05/02/17 - 1. Delayed right breast reconstruction with unipedicle contralateral TRAM flap. 2. Abdominal wall reconstruction with placement of Strattice acellular dermal matrix graft (100 cm2). 3. Revision radiation scar contour deformity right breast with multiple W-plasties (40 cm2). 05/05/17 - Surgical preparation right breast TRAM flap reconstruction with incision and drainage and evacuation hematoma. Procedures: Blood transfusion Summary of Care Provided: The patient is a 47 year old F who presented for evaluation breast reconstruction. Her initial bilateral mastectomy was on 01/12/16. She underwent IV chemotherapy initially and this was followed by radiation therapy to the right breast. She finished the radiation therapy in 10/03. She states that during this adjuvant therapy, she has gained a little weight and has developed some extra tissue in the lower anterior abdominal wall. The last time I saw her in 03/04, she was interested in breast reconstruction with placement of implants. Now she is contemplating the use of autogenous tissue for the radiated right breast. She denies any fever. She states she has stopped smoking since her diagnosis of breast cancer. On 05/02/17, the patient underwent delayed right breast reconstruction with unipedicle contralateral TRAM flap and abdominal wall reconstruction with placement of Strattice acellular dermal matrix graft (100 cm2) and revision radiation scar contour deformity right breast with multiple W-plasties (40 cm2). Patient tolerated the procedure well. Due to the length of the procedure, postop Lovenox was given daily. On the first postop day, there was minor bruising at the edges of the flap. The flap was soft. She had coughing issues from her history of smoking. Breathing treatments were started which helped to resolve the coughing. However with the breathing treatments and postop pain, her pulse increased initially. When the breathing treatments were stopped, the pulse decreased back to the 90's. Her Hgb was 10.8. Some of the decrease was from operative blood loss and IV dilution (about 4 liters). She was able to stand on this day. Prealbumin was 19.5. Encourage nutritional supplementation with protein to help the healing process. On the second postop day, her Hgb decreased to 9.4. Patient stated she had vitamins with iron at home to take and will followup with her PCP about evaluation for her chronic anemia. She was able to walk in her room on this day. The terrell was removed and she was able to void without difficulty. There was no progression of the minor bruising at the edges of the flap, and the flap remained soft. On the third postop day, she felt tired and looked pale. Her Hgb had decreased to 7.8. The breast was firm and swollen. There was more moderate bruising. The patient developed a hematoma and was taken to the OR on this day and underwent surgical preparation right breast TRAM flap reconstruction with incision and drainage and evacuation hematoma. Besides evacuating the hematoma, operative intervention was done to take pressure off the blood supply to the flap. This will help the salvage the flap. 2 units of PRBC was also given. The wound was left open and dressing changes with Silver dressings was started. Discussed with the patient that VAC may be used in the future. After surgery, the flap was soft. Also on this day, the one abdominal drain had almost come out, and I removed it since it was draining around the tube. Will remove the other abdominal drain in the office. Discussed with the patient that because of the length of the surgery, Lovenox is necessary to give to minimize blood clots and PE. However, with the added protection comes the risk of bleeding from the Lovenox. The important thing is to recognize the risk and take care of the bleeding if it occurs to minimize further damage and compromise to the flap. On the fourth postop day, there was improvement in the bruising. Some of the blistering was debrided in the OR and the underlying dermis appeared more viable. The central aspect of the flap was soft and viable. Her Hgb improved to 10.5 after the PRBC. On the sixth postop day, there was some dry eschar forming inferiorly. It remained stable the rest of the hospitalization. No progression of the eschar was noted. There was no clinical evidence of infection. The flap remained soft as well. The central aspect of the flap remained viable. The patient developed increased discomfort with the dressing changes because of pressure from the packing. She was able to tolerate the dressing changes reasonably well in anticipation of discharge on the eighth postop day on 05/10/17. Her drainage output from both the breast and the abdomen ranged from a high of 645 ml on the first postop day to 55 ml on the day of discharge. There was trouble getting Home Health set up because of insurance issues. Therefore I decided to see the patient in my office initially for the dressing changes and as needed debridement. Discussed with the patient that the plan is to continue the wound care and as needed debridement. Also in the office, if I think an infection is developing, a wound culture will be obtained and, if positive, antibiotics would be started. At some point, may consider the VAC. I will see in my office until I decide to see her at the [facility] for continued wound care and to be evaluated for HBO treatments to help salvage the compromised flap and to help with soft tissue radionecrosis. When stabilized, will assess the extent of the remaining wound deformity to decide on further revision reconstruction with another flap (latissimus dorsi myocutaneous flap). Wrote a script for Doxycycline until the abdominal drain is removed. Wrote scripts for Percocet for pain (60 tabs) and for Valium for spasm (30 tabs). Wrote scripts for Phenergan for nausea (30 tabs) with a refill and for Colace for constipation (60 tabs). Followup office tomorrow 05/11/17 for a dressing change. Condition upon discharge stable. Discharge Diet: No Restrictions, - - encourage nutritional supplementation with protein to help the healing process. Discharge Activity: May not drive while taking narcotic pain medications., May Not Shower - until after the drain is removed in the office. she has well water and should keep the right breast dry and away from well water as best as you can. May wash the right breast wound with soap and distilled water or saline., - - keep head elevated. no heavy lifting. May shower in (days): 10 - may shower after the drain is removed in the office but keep the right breast dry when showering. May resume sexual activity in: 10-14 days Weight Bearing Status: Weight bearing as tolerated Keep extremity elevated above heart level: - - elevate head. Call your doctor if your incision/area has: Continuous Slow Oozing, Sudden Increased Bleeding, Increased Pain/ Swelling, Increased Redness, Foul Smelling Discharge, Swelling at the incision site Call your doctor if you observe: Fever of 101 or Higher, Coldness, Increased Pain, Shortness of breath, Chest pain, Calf discomfort, Uncontrolled pain Suture Line Care: - - daily dressing changes to the right breast with Aquacel Silver. Patient to come to the office for the dressing changes until the family feels comfortable doing them at home as home health was not available at this time. Change Dressing in (Days):: 1 - patient will come to the office for the dressing changes. Cleanse incision/area with: - - may shower after the drain is removed in the office. when showering keep the right breast dry due to well water. may wash the right breast separately with soap and distilled water or saline. Drain: Suction - amrit drain to bulb suction. empty and record output daily. Home Medications: Medications to take at Discharge Sertraline HCl [Zoloft] 150 mg PO DAILY 01/11/16 Trazodone HCl 50 mg PO QHS 04/20/16 Amlodipine [Norvasc] 5 mg PO DAILY PRN 04/25/17 Calcium Carbonate/Vitamin D3 [Calcium 500-Vit D3 600 Tablet] 1 ea PO DAILY 04/25/17 Meloxicam [Mobic] 15 mg PO DAILY 04/25/17 Diazepam [Valium] 5 mg PO 4X/DAY PRN PRN #30 tab 05/10/17 Docusate Sodium [Colace] 100 mg PO BID #60 cap 05/10/17 Doxycycline [Vibramycin] 100 mg PO BID #28 cap 05/10/17 Oxycodone HCl/Acetaminophen [Percocet 5/325] 1 - 2 tab PO 4X/DAY PRN PRN 7 Days #60 tab 05/10/17 ProMETHAzine [Phenergan] 25 mg PO 4X/DAY PRN PRN #30 tab 05/10/17 diazepam 5 mg tablet See Label Instructions PO BID PRN #30 tab 05/13/17 Following Prescrptions Were Given to Patient: Diazepam [Valium] 5 mg PO 4X/DAY PRN PRN #30 tab PRN Reason: Spasms Oxycodone HCl/Acetaminophen [Percocet 5/325] 1 - 2 tab PO 4X/DAY PRN PRN 7 Days #60 tab PRN Reason: Pain ProMETHAzine [Phenergan] 25 mg PO 4X/DAY PRN PRN #30 tab PRN Reason: NAUSEA/VOMITING Docusate Sodium [Colace] 100 mg PO BID #60 cap Doxycycline [Vibramycin] 100 mg PO BID #28 cap Primary Care Physician: Josué Price MD [Primary Care Provider] - Please Follow Up With: Junior Whitman MD - call [phone] if questions. When: tomorrow 05/11/17 at 1100 am. Disposition: Home Minutes spent on discharge:: 35 Patient Condition:: Stable Meaningful Use Info Meaningful Use Diagnoses (Choose all that apply): None applicable 05/14/17 1159 <Electronically signed by Junior Whitman MD> Date Junior Whitman MD Cosigner Signature (if applicable): Date CC: Chris Juárez MD; Junior Whitman MD; Josué Price MD; [facility] Signed PLASTIC SURGERY Observed: 05/13/2017 Status: F Source: [place] VISIT REPORT 9:05 AM [facility] REPOSITORY [facility] [address] [place] [address] OFFICE VISIT Date of Service: 04/05/17 MR#: [id number] Acct: [id number] Name: SHARON BARRAGAN Rep #: [id number] : 1970 Provider: Junior Whitman MD Age/Sex: 47/F Location: [facility] Status: Signed Intake Vital Signs04/05/17 Height 5 ft 04/05/17 Weight: 172 lb 2 oz Intake Visit Reasons: evaluation breast reconstruction Lifeguard Required: No Accompanied by: None Is patient in pain?: Yes (BILATERAL BREAST BUT MORE ON THE RIGHT - ITS ACHING) Allergies POULTRY Allergy (Uncoded 05/12/17 08:59) Anaphylaxis Medications Sertraline HCl [Zoloft] 150 mg PO DAILY 01/11/16 [History Confirmed 05/12/17] Trazodone HCl 50 mg PO QHS 04/20/16 [History Confirmed 05/12/17] Amlodipine [Norvasc] 5 mg PO DAILY PRN 04/25/17 [History Confirmed 05/12/17] Calcium Carbonate/Vitamin D3 [Calcium 500-Vit D3 600 Tablet] 1 ea PO DAILY 04/25/17 [History Confirmed 05/12/17] Meloxicam [Mobic] 15 mg PO DAILY 04/25/17 [History Confirmed 05/12/17] Diazepam [Valium] 5 mg PO 4X/DAY PRN PRN #30 tab 05/10/17 [Rx Confirmed 05/12/17] Docusate Sodium [Colace] 100 mg PO BID #60 cap 05/10/17 [Rx Confirmed 05/12/17] Doxycycline [Vibramycin] 100 mg PO BID #28 cap 05/10/17 [Rx Confirmed 05/12/17] Oxycodone HCl/Acetaminophen [Percocet 5/325] 1 - 2 tab PO 4X/DAY PRN PRN 7 Days #60 tab 05/10/17 [Rx Confirmed 05/12/17] ProMETHAzine [Phenergan] 25 mg PO 4X/DAY PRN PRN #30 tab 05/10/17 [Rx Confirmed 05/12/17] diazepam 5 mg tablet See Label Instructions PO BID PRN #30 tab 05/13/17 [Rx Confirmed 05/13/17] Is last menstrual period known: No Post menopausal: Yes Patient : No PFSH Medical History 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) BONE FRACTURES - BROKEN RIGHT ARM (Acute) Back pain (Acute) Breast cancer in female (Acute) Breast lump in female (Acute) 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 Social History Smoking Status: Former smoker second hand exposure: No alcohol intake: current alcohol intake frequency: a few times a week Alcohol type: other substance use type: does not use what type of physical activity do you participate in: other frequency: daily seatbelt use: always do you feel safe at home: Yes additional social history: SUN EXPOSURE: OCCASIONALLY HPI evaluation breast reconstruction: Details: HISTORY OF PRESENT ILLNESS 47 year old woman presents for evaluation breast reconstruction. Her initial bilateral mastectomy was on 01/12/16. She underwent IV chemotherapy initially and this was followed by radiation therapy to the right breast. She finished the radiation therapy in 10/03. She states that during this adjuvant therapy, she has gained a little weight and has developed some extra tissue in the lower anterior abdominal wall. The last time I saw her in 03/04, she was interested in breast reconstruction with placement of implants. Now she is contemplating the use of autogenous tissue for the radiated right breast. She denies any fever. She states she has stopped smoking since her diagnosis of breast cancer. PAST MEDICAL HISTORY Seasonal allergies Back Pain Bone Fractures-broken right arm Breast Lump Breast Cancer - right with chemotherapy and radiation therapy Emotional Problems Goiter Thyroid Dx fibroids cancerphobia left breast acquired absence bilateral breasts disproportion reconstructed breasts PAST SURGICAL HISTORY Thyroidectomy, subtotal Tubal ligation Hysterectomy with bilateral salpingectomy and left oophorectomy - 10/02 prophylactic mastectomy left breast by Dr. Whitman - 01/12/16 mastectomy right breast and bilateral sentinel node biopsies by Dr. Juárez - 01/12/16 port placement - 02/02 MEDICATIONS Zoloft. Mobic. Trazodone. Norvasc. Calcium Carbonate. ALLERGIES Poultry. FAMILY HISTORY negative for breast cancer. SOCIAL HISTORY Patient is a former smoker. Passive smoke exposure - no Alcohol Use - no Regular Exercise - yes Passive smoke exposure - yes REVIEW OF SYSTEMS General - Denies fever and fatigue. History of weight loss. Eyes - Denies eye pain. ENT - Denies nasal congestion and sore throat. CV - Denies chest pain or discomfort, fatigue, lightheadedness and shortness of breath with exertion. Resp - Denies cough and shortness of breath. Patient is a former smoker. GI - Denies nausea, vomiting, diarrhea and constipation. - Denies blood in urine and urinary frequency. MS - Complains of back pain. Denies joint pain, stiffness, muscle weakness and arthritis. Derm - Denies suspicious lesions and skin cancer. Neuro - Denies poor balance and headaches. Psych - Complains of anxiety. Denies depression. Endo - Denies excessive urination and excessive thirst. Has thyroid disease. Has history of right breast cancer. Heme - Denies bleeding and abnormal bruising. PHYSICAL EXAMINATION General: well developed, well nourished, in no acute distress. Her bra size was 36 C prior to her breast cancer. Head: normocephalic and atraumatic. Eyes: PERRL. EOMI. Neck: no masses, thyromegaly, or abnormal cervical nodes. Breasts: Mastectomy vertical incisions are intact and healed. On the right breast there is some radiation effects with some firmness to the skin. Some mild discoloration. Some adherence to the chest wall. No axillary adenopathy. Breast diameter is 12 cm bilaterally. Lungs: clear bilaterally to auscultation. Heart: regular rate and rhythm. Abdomen: normal bowel sounds; no hepatosplenomegaly no ventral,umbilical hernias or masses noted. There is redundant skin and subcutaneous tissue between the umbilicus and the pubic area. Good skin elasticity noted. There is a horizontal scar in the pubic area. Pulses: pulses normal in all 4 extremities. Extremities: no clubbing, cyanosis, edema, or deformity noted with normal full range of motion of all joints. Neurologic: cranial nerves II-XII grossly intact. Skin: no rashes. Cervical Nodes: no significant adenopathy. Axillary Nodes: no significant adenopathy. Inguinal Nodes: no significant adenopathy. Psych: alert and cooperative; normal mood and affect; normal attention span and concentration. ASSESSMENT 1. Right breast cancer. 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 4. Disproportion reconstructed breasts. 5. Late effect radiation right breast. 6. Estrogen receptor status negative. 7. Former smoker. PLAN Patient has finished her chemotherapy and has finished her radiation therapy in 10/03. Before her adjuvant therapy, she was thinking about implants. However with the radiation therapy we will need to bring in non-radiated tissue into the breast. She has redundant skin and subcutaneous tissue in the lower anterior abdominal wall. She is interested in the TRAM flap. She has good skin elasticity in the lower anterior abdominal wall. Because the patient has stopped smoking, we don't need an initial TRAM flap delay procedure. The left breast mastectomy wound can be reconstructed with saline tissue expanders followed by placement of a cohesive gel implant and placement of Alloderm. Will proceed with the TRAM flap first. During the postop recovery period, can then proceed with left breast reconstruction with placement of the saline tissue inside parts sales. At the time of removal of the inside parts sales with replacement cohesive gel implant, we can revise the TRAM flap on the right if necessary. Because of her radiated tissue, will proceed with HBO treatments after the surgery during her postop recovery. This will help the vascularity and healing of the radiated tissue adjacent to the TRAM flap. Because of this radiation effect, when I inset the TRAM flap into the right breast mound, I anticipate there will radiation fibrosis that will cause a sharp cutoff between the flap skin and the radiated skin. Multiple W-plasties will be performed to help soften up the scarring in this area and give it a smoother contour. The size of the multiple W-plasties will be around 40 cm2. Surgery will be done under general anesthesia. She will be in the hospital for approximately 5-7 days. Any breast tissue that is removed will be sent to Pathology for analysis to rule out carcinoma. She will have drains in for several days and be on antibiotics until the drains are removed. She will wear a surgical bra and abdominal binder for several weeks. Depending on how strong the abdominal wall fascia is, she may need re-enforcement of the abdominal wall with Strattice acellular dermal matrix graft to minimize hernia formation. She will have a special diet for 6 weeks (no caffeine, no coffee, no decaf, no tea, no chocolate). The patient was informed of the risks and complications of the procedure including alternatives to surgery. These were discussed with the patient personally. The patient voices understanding and wishes to proceed. Some of the risks and complications were included in a form from the [employer]. Encouraged the patient to stop smoking as it may have deleterious effects on wound healing. She states she has stopped smoking after her breast cancer diagnosis. The patient is a little nervous for the surgery, and I wrote a script for Valium, twice a day (30 tabs) which she can use for anxiety preop and will need the Valium postop for muscle spasm. Assessment AND Plan Problems 1. 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 Late effect of radiation T66.XXXS 6. Estrogen receptor negative status [ER-] Z17.1 7. 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 Acquired absence of bilateral breasts and nipples Z90.13 Disproportion of reconstructed breast N65.1 Late effect of radiation T66.XXXS Estrogen receptor negative status [ER-] Z17.1 Former cigarette smoker Z87.891 05/13/17 0905 <Electronically signed by Junior Whitman MD> Date Junior Whitman MD Cosigner Signature: Date (if applicable) CC: Josué Price MD PROGRESS Observed: 05/12/2017 Status: COMPLETED Source: [place] 9:04 AM [facility] REPOSITORY O ID: [id number] Author: Alejandra Bawja (Sw) Service: (none) Author Type: Business Office Director Type: Progress Notes Filed: 05/12/2017 9:05 AM Note Text: SOCIAL WORK FOLLOW UP NOTE: [facility] Date of service: May 12, 2017 Sharon Amalia is being seen for a follow up social work visit. Today's visit includes: patient not present TOPICS ADDRESSED: Patient's mother brought in patient's W2 and BE sent this along with completed Cancer[facility] application to [facility] fax given on form. PLAN: Assist with financial support applications and Continue follow up as needed F/U APPOINTMENT: TRISH Goodman DISCHARGE INSTRUCTION Observed: 05/10/2017 Status: F Source: [place] 3:11 PM [facility] REPOSITORY [facility] Medical Records Department [address] [place] [address] Instructions for Home/Discharge Instructions 05/10/17 1503 MR#: [id number] Acct: [id number] Name: SHARON BARRAGAN Rep #: [id number] : 1970 47 From: Junior Whitman MD PCP: Josué Price MD Status: ADM IN - Discharge Diagnoses Current Active Problems: Current Active and Chronic Problems (Last Updated 02/28/17 @ 15:15 by Fernanda Polk) Partial loss of skin graft (Acute) Compromised TRAM flap right breast reconstruction with partial loss 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 Discharge Activity: May not drive while taking narcotic pain medications., May Not Shower - until after the drain is removed in the office. she has well water and should keep the right breast dry and away from well water as best as you can. May wash the right breast wound with soap and distilled water or saline., - - keep head elevated. no heavy lifting. May shower in (days): 10 - may shower after the drain is removed in the office but keep the right breast dry when showering. May resume sexual activity in: 10-14 days Weight Bearing Status: Weight bearing as tolerated Lifting Restrictions: 20 lbs. Keep extremity elevated above heart level: - - elevate head. Call your doctor if your incision/area has: Continuous Slow Oozing, Sudden Increased Bleeding, Increased Pain/ Swelling, Increased Redness, Foul Smelling Discharge, Swelling at the incision site Call your doctor if you observe: Fever of 101 or Higher, Coldness, Increased Pain, Shortness of breath, Chest pain, Calf discomfort, Uncontrolled pain Suture Line Care: - - daily dressing changes to the right breast with Aquacel Silver. Patient to come to the office for the dressing changes until the family feels comfortable doing them at home as home health was not available at this time. Change Dressing in (Days):: 1 - patient will come to the office for the dressing changes. Cleanse incision/area with: - - may shower after the drain is removed in the office. when showering keep the right breast dry due to well water. may wash the right breast separately with soap and distilled water or saline. Drain: Suction - amrit drain to bulb suction. empty and record output daily. Allergies/Adverse Reactions: Allergies POULTRY Allergy (Uncoded 04/25/17 08:44) Anaphylaxis Medications to take at Discharge Sertraline HCl [Zoloft] 150 mg PO DAILY 01/11/16 Trazodone HCl 50 mg PO QHS 04/20/16 Amlodipine [Norvasc] 5 mg PO DAILY PRN 04/25/17 Calcium Carbonate/Vitamin D3 [Calcium 500-Vit D3 600 Tablet] 1 each PO DAILY 04/25/17 Meloxicam [Mobic] 15 mg PO DAILY 04/25/17 Diazepam [Valium] 5 mg PO 4X/DAY PRN PRN #30 tab 05/10/17 Docusate Sodium [Colace] 100 mg PO BID #60 cap 05/10/17 Doxycycline [Vibramycin] 100 mg PO BID #28 cap 05/10/17 Oxycodone HCl/Acetaminophen [Percocet 5/325] 1 - 2 tab PO 4X/DAY PRN PRN 7 Days #60 tab 05/10/17 ProMETHAzine [Phenergan] 25 mg PO 4X/DAY PRN PRN #30 tab 05/10/17 The following prescriptions were given: Diazepam [Valium] 5 mg PO 4X/DAY PRN PRN #30 tab PRN Reason: Spasms Oxycodone HCl/Acetaminophen [Percocet 5/325] 1 - 2 tab PO 4X/DAY PRN PRN 7 Days #60 tab PRN Reason: Pain ProMETHAzine [Phenergan] 25 mg PO 4X/DAY PRN PRN #30 tab PRN Reason: NAUSEA/VOMITING Docusate Sodium [Colace] 100 mg PO BID #60 cap Doxycycline [Vibramycin] 100 mg PO BID #28 cap Primary Care Physician: Josué Price MD [Primary Care Provider] - Please Follow Up With: Junior Whitman MD - call [phone] if questions. When: tomorrow 05/11/17 at 1100 am. Proposed Discharge Date: 05/10/17 05/10/17 3311 <Electronically signed by Junior Whitman MD> Date Junior Whitman MD CC: Josué Price MD PROGRESS Observed: 05/10/2017 Status: COMPLETED Source: [place] 12:14 PM [facility] HNO ID: [id number] Author: Alejandra Bajwa (Sw) Service: (none) Author Type: Business Office Director Type: Progress Notes Filed: 05/10/2017 12:16 PM Note Text: Social Work Problem Referral Note INFORMATION/REFERRAL : Sharon Barragan 47 year old female was referred by patient to [facility] Social [facility] for the following reason(s): Cancer form PERSONS INTERVIEWED: family - Name: patient's mother INTERVENTION: Information AND Referral Service Co-ordination Affect/Mood: The patient is noted as did not assess patient IDENTIFIED PROBLEMS/NEEDS: cancer form Intervention/Referral to be provided:Arrangements made for continuity of care IMPRESSION/PLAN: SW met with patient's mother to complete cancer claim form. SW will need to have doctor review and sign before it can be submitted to [facility]. Patient's income tax information will also need to be submitted with application. Patient's mother will get that paperwork and either fax or bring into to send with application. F/U APPOINTMENT: TRISH Goodman CBC-COMPLETE BLOOD CNT Collected: 05/06/2017 Status: F Source: [place] NO DIFF 7:15 AM [facility] REPOSITORY TYPE CODE TESTS RESULT OUT OF RANGE REFERENCE UNITS LAB L100.1000 4.4-11.0 K/mm3 Normal WBC 6.2 LAB L100.1200 4.2-5.4 M/mm3 Low RBC 3.48 LAB L100.1300 12.0-15.0 g/dl Low HGB 10.5 LAB L100.1400 37-47 % Low HCT 31.1 LAB L100.1500 81-99 fL Normal MCV 89.4 LAB L100.1600 27.0-32.0 pg Normal MCH 30.2 LAB L100.1700 32-36 g/gl Normal MCHC 33.8 LAB L100.1810 11.6-14.6 % Normal RDW CV 13.4 LAB L100.1820 35.1-43.9 fl High RDW SD 44.1 LAB L100.1900 150-450 K/mm3 Normal PLT 152 LAB L100.2000 6.2-12.0 fl Normal MPV 8.6 Performed By: #### L100.0500 #### [facility] [address] [place], [address] BASIC METABOLIC Collected: 05/06/2017 Status: F Source: [place] PROFILE (BMP) 7:15 AM [facility] REPOSITORY TYPE CODE TESTS RESULT OUT OF RANGE REFERENCE UNITS LAB L501.0100 74-106 mg/dL Normal GLU 93 Result Comment: Please note revised GLUCOSE reference range effective 2017. LAB L501.1000 7-18 mg/dL Normal BUN 10 LAB L501.1100 0.55-1.02 mg/dL Normal CREAT,SERUM 0.62 Result Comment: The validity of the calculated GFR AND GFRAA in patients over 70 years has not been determined. Clinical correlation is essential. LAB L501.1110 >60 mL/min Normal EST GFR 108 Result Comment: Non- GFR Calc LAB L501.1115 >60 mL/min Normal EST GFR - AA 131 Result Comment: GFR Calc LAB L501.1255 ml/min Normal Estimated CRCL 83.74 LAB L501.1300 10-20 RATIO Normal BUN/CRE 16.0 LAB L501.2200 8.5-10 mg/dL Low .1 CA 8.2 LAB L501.5300 136-14 mmol/L Normal 5 NA 139 LAB L501.5600 3.5-5. mmol/L Normal 1 K 3.6 LAB L501.5900 98-107 mmol/L Normal CL 104 LAB L501.6100 21.0-3 mmol/L Normal 2.0 CO2 26.0 LAB L501.6200 5-15 Normal GAP 9 Performed By: #### L500.2500 #### [facility] [address] [place], [address] HEMOGLOBIN Collected: 05/05/2017 Status: F Source: [place] 8:25 PM [facility] REPOSITORY TYPE CODE TESTS RESULT OUT OF RANGE REFERENCE UNITS LAB L100.1300 12.0-15.0 g/dl Low HGB 10.2 Performed By: #### L100.1300 #### [facility] [address] [place], [address] TYPE AND SCREEN Collected: 05/05/2017 Status: F Source: [place] 9:05 AM [facility] REPOSITORY Order Comment: CMV NEG? N Number of units to transfuse: 2 Is there a >20% drop in pt's BP? N Is the pt's CVP (central venous pressure) <3 cm/H2O? N Is the EBL >/= 1000ml in adults or >/= 12ml/kg in children? N Is there an orthostatic change in pt's BP(SBP drop >10mmHg)? N Is pt's HR > 100 bpm? Y Reason for Ordering Blood: Acute Are the blood/blood products to be transfused? Y Is the patient having/had surgery? Y Anticipated time of surgery: 1300 Give When? When Ready Irradiated? N Leukodepleted? Y Surgery Date: 05/05/17 Type of Surgery: OTHER TYPE CODE TESTS RESULT OUT OF RANGE REFERENCE UNITS LAB B10.0800 A Normal BLOOD TYPE GEL POSITIVE LAB B100.4000 Normal Antibody NEGATIVE Screen Performed By: #### B101.7450 #### [facility] [place], [address] Collected: 05/05/2017 Status: F Source: [place] 9:05 AM [facility] REPOSITORY TYPE CODE TESTS RESULT OUT OF REFERENCE UNITS RANGE LAB U100.0000 [id number] TRANSFUSED PRODUCT: T AND S with Crossmatch, Red Cells COUNT: 2 Performed By: #### U100.0000 #### Non-[facility] - refer to report for specific site CBC-COMPLETE BLOOD CNT Collected: 05/05/2017 Status: F Source: [place] NO DIFF 6:33 AM [facility] REPOSITORY TYPE CODE TESTS RESULT OUT OF RANGE REFERENCE UNITS LAB L100.1000 4.4-11.0 K/mm3 Normal WBC 7.6 LAB L100.1200 4.2-5.4 M/mm3 Low RBC 2.52 LAB L100.1300 12.0-15.0 g/dl Low HGB 7.8 LAB L100.1400 37-47 % Low HCT 23.1 LAB L100.1500 81-99 fL Normal MCV 91.7 LAB L100.1600 27.0-32.0 pg Normal MCH 31.0 LAB L100.1700 32-36 g/gl Normal MCHC 33.8 LAB L100.1810 11.6-14.6 % Normal RDW CV 13.1 LAB L100.1820 35.1-43.9 fl Normal RDW SD 43.8 LAB L100.1900 150-450 K/mm3 Normal PLT 154 LAB L100.2000 6.2-12.0 fl Normal MPV 8.7 Performed By: #### L100.0500 #### [facility] [address] [place], [place], [id number] BASIC METABOLIC Collected: 05/05/2017 Status: F Source: [place] PROFILE (BMP) 6:33 AM [facility] REPOSITORY TYPE CODE TESTS RESULT OUT OF RANGE REFERENCE UNITS LAB L501.0100 74-106 mg/dL Normal GLU 97 Result Comment: Please note revised GLUCOSE reference range effective 2017. LAB L501.1000 7-18 mg/dL High BUN 20 LAB L501.1100 0.55-1.02 mg/dL Normal CREAT,SERUM 0.56 Result Comment: The validity of the calculated GFR AND GFRAA in patients over 70 years has not been determined. Clinical correlation is essential. LAB L501.1110 >60 mL/min Normal EST GFR 122 Result Comment: Non- GFR Calc LAB L501.1115 >60 mL/min Normal EST GFR - AA 148 Result Comment: GFR Calc LAB L501.1255 ml/min Normal Estimated CRCL 92.71 LAB L501.1300 10-20 RATIO High BUN/CRE 35.5 LAB L501.2200 8.5-10 mg/dL Low .1 CA 8.1 LAB L501.5300 136-14 mmol/L Normal 5 NA 139 LAB L501.5600 3.5-5. mmol/L Low 1 K 3.4 LAB L501.5900 98-107 mmol/L Normal CL 102 LAB L501.6100 21.0-3 mmol/L Normal 2.0 CO2 30.0 LAB L501.6200 5-15 Normal GAP 7 Performed By: #### L500.2500 #### [facility] [address] [facility] [address] [place], [place], [address] CBC-COMPLETE BLOOD CNT Collected: 05/04/2017 Status: F Source: [place] NO DIFF 6:25 AM [facility] REPOSITORY TYPE CODE TESTS RESULT OUT OF RANGE REFERENCE UNITS LAB L100.1000 4.4-11.0 K/mm3 High WBC 14.1 LAB L100.1200 4.2-5.4 M/mm3 Low RBC 2.98 LAB L100.1300 12.0-15.0 g/dl Low HGB 9.4 LAB L100.1400 37-47 % Low HCT 27.4 LAB L100.1500 81-99 fL Normal MCV 91.9 LAB L100.1600 27.0-32.0 pg Normal MCH 31.5 LAB L100.1700 32-36 g/gl Normal MCHC 34.3 LAB L100.1810 11.6-14.6 % Normal RDW CV 12.5 LAB L100.1820 35.1-43.9 fl Normal RDW SD 40.8 LAB L100.1900 150-450 K/mm3 Normal PLT 194 LAB L100.2000 6.2-12.0 fl Normal MPV 9.0 Performed By: #### L100.0500 #### [facility] [address] [facility] [place], [address] HISTORY AND PHYSICAL Observed: 05/03/2017 Status: F Source: [place] EXAM 11:30 PM [facility] REPOSITORY [facility] Medical Records Department [address] [place] [address] History and Physical 05/01/17 1807 MR#: [id number] Acct: [id number] Name: SHARON BARRAGAN Rep #: [id number] : 1970 47 From: Junior Whitman MD PCP: Josué Price MD Status: ADM IN Location: [place] [address]-1 History and Physical Date of Admission: 05/02/17 CC: evaluation breast reconstruction. History of Present Illness: 47 year old woman presents for evaluation breast reconstruction. Her initial bilateral mastectomy was on 01/12/16. She underwent IV chemotherapy initially and this was followed by radiation therapy to the right breast. She finished the radiation therapy in 10/03. She states that during this adjuvant therapy, she has gained a little weight and has developed some extra tissue in the lower anterior abdominal wall. The last time I saw her in 03/04, she was interested in breast reconstruction with placement of implants. Now she is contemplating the use of autogenous tissue for the radiated right breast. She denies any fever. She states she has stopped smoking since her diagnosis of breast cancer. 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 Whitman - 01/12/16 mastectomy right breast and bilateral sentinel node biopsies by Dr. Juárez - 01/12/16 port placement - 02/02 MEDICATIONS: Zoloft. Valium. Mobic. Trazodone. Norvasc. Calcium Carbonate. ALLERGIES: Poultry. Family History: negative for breast cancer. Social History: Patient is a former smoker. Passive smoke exposure - no Alcohol Use - no Regular Exercise - yes Passive smoke exposure - yes Review of Systems General - Denies fever and fatigue. History of weight loss. Eyes - Denies eye pain. ENT - Denies nasal congestion and sore throat. CV - Denies chest pain or discomfort, fatigue, lightheadedness and shortness of breath with exertion. Resp - Denies cough and shortness of breath. Patient is a former smoker. GI - Denies nausea, vomiting, diarrhea and constipation. - Denies blood in urine and urinary frequency. MS - Complains of back pain. Denies joint pain, stiffness, muscle weakness and arthritis. Derm - Denies suspicious lesions and skin cancer. Neuro - Denies poor balance and headaches. Psych - Complains of anxiety. Denies depression. Endo - Denies excessive urination and excessive thirst. Has thyroid disease. Has history of right breast cancer. Heme - Denies bleeding and abnormal bruising. Vital Signs: Patient Profile: 47 Years Old Female Height: 61 inches Weight: 119.2 pounds BMI: 22.52 BSA: 1.52 Physical Exam General: well developed, well nourished, in no acute distress. Her bra size was 36 C prior to her breast cancer. Head: normocephalic and atraumatic. Eyes: PERRL. EOMI. Neck: no masses, thyromegaly, or abnormal cervical nodes. Breasts: Mastectomy vertical incisions are intact and healed. On the right breast there is some radiation effects with some firmness to the skin. Some mild discoloration. Some adherence to the chest wall. No axillary adenopathy. Breast diameter is 12 cm bilaterally. Lungs: clear bilaterally to auscultation. Heart: regular rate and rhythm. Abdomen: normal bowel sounds; no hepatosplenomegaly no ventral,umbilical hernias or masses noted. There is redundant skin and subcutaneous tissue between the umbilicus and the pubic area. Good skin elasticity noted. There is a horizontal scar in the pubic area. Pulses: pulses normal in all 4 extremities. Extremities: no clubbing, cyanosis, edema, or deformity noted with normal full range of motion of all joints. Neurologic: cranial nerves II-XII grossly intact. Skin: no rashes. Cervical Nodes: no significant adenopathy. Axillary Nodes: no significant adenopathy. Inguinal Nodes: no significant adenopathy. Psych: alert and cooperative; normal mood and affect; normal attention span and concentration. Assessment and Plan 1. Right breast cancer. 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 4. Disproportion reconstructed breasts. 5. Late effect radiation right breast. 6. Estrogen receptor status negative. 7. Former smoker. Patient has finished her chemotherapy and has finished her radiation therapy in 10/03. Before her adjuvant therapy, she was thinking about implants. However with the radiation therapy we will need to bring in non-radiated tissue into the breast. She has redundant skin and subcutaneous tissue in the lower anterior abdominal wall. She is interested in the TRAM flap. She has good skin elasticity in the lower anterior abdominal wall. Because the patient has stopped smoking, we don't need an initial TRAM flap delay procedure. The left breast mastectomy wound can be reconstructed with saline tissue expanders followed by placement of a cohesive gel implant and placement of Alloderm. Will proceed with the TRAM flap first. During the postop recovery period, can then proceed with left breast reconstruction with placement of the saline tissue inside parts sales. At the time of removal of the inside parts sales with replacement cohesive gel implant, we can revise the TRAM flap on the right if necessary. Because of her radiated tissue, will proceed with HBO treatments after the surgery during her postop recovery. This will help the vascularity and healing of the radiated tissue adjacent to the TRAM flap. Because of this radiation effect, when I inset the TRAM flap into the right breast mound, I anticipate there will radiation fibrosis that will cause a sharp cutoff between the flap skin and the radiated skin. Multiple W-plasties were performed to help soften up the scarring in this area and give it a smoother contour. The size of the multiple W-plasties was 40 cm2. Surgery will be done under general anesthesia. She will be in the hospital for approximately 5-7 days. Any breast tissue that is removed will be sent to Pathology for analysis to rule out carcinoma. She will have drains in for several days and be on antibiotics until the drains are removed. She will wear a surgical bra and abdominal binder for several weeks. Depending on how strong the abdominal wall fascia is, she may need re-enforcement of the abdominal wall with Strattice acellular dermal matrix graft to minimize hernia formation. She will have a special diet for 6 weeks (no caffeine, no coffee, no decaf, no tea, no chocolate). The patient was informed of the risks and complications of the procedure including alternatives to surgery. These were discussed with the patient personally. The patient voices understanding and wishes to proceed. Some of the risks and complications were included in a form from the [employer]. Encouraged the patient to stop smoking as it may have deleterious effects on wound healing. She states she has stopped smoking after her breast cancer diagnosis. 05/03/17 [id number] <Electronically signed by Junior Whitman MD> Date Junior Whitman MD Cosigner Signature: Date (if applicable) CC: Junior Whitman MD; Josué Price MD Signed CBC-COMPLETE BLOOD CNT Collected: 05/03/2017 Status: F Source: [place] NO DIFF 6:36 AM [facility] REPOSITORY TYPE CODE TESTS RESULT OUT OF RANGE REFERENCE UNITS LAB L100.1000 4.4-11.0 K/mm3 Normal WBC 11.0 LAB L100.1200 4.2-5.4 M/mm3 Low RBC 3.43 LAB L100.1300 12.0-15.0 g/dl Low HGB 10.8 LAB L100.1400 37-47 % Low HCT 30.8 LAB L100.1500 81-99 fL Normal MCV 89.8 LAB L100.1600 27.0-32.0 pg Normal MCH 31.5 LAB L100.1700 32-36 g/gl Normal MCHC 35.1 LAB L100.1810 11.6-14.6 % Normal RDW CV 12.2 LAB L100.1820 35.1-43.9 fl Normal RDW SD 38.8 LAB L100.1900 150-450 K/mm3 Normal PLT 188 LAB L100.2000 6.2-12.0 fl Normal MPV 9.0 Performed By: #### L100.0500 #### [facility] [address] [place], [address] BASIC METABOLIC Collected: 05/03/2017 Status: F Source: [place] PROFILE (BMP) 6:36 AM [facility] REPOSITORY TYPE CODE TESTS RESULT OUT OF RANGE REFERENCE UNITS LAB L501.0100 74-106 mg/dL High GLU 151 Result Comment: Fasting Glucose result greater than or equal to 126 mg/dL suggests DIABETES MELLITUS per A.D.A. criteria. Please note revised GLUCOSE reference range effective 2017. LAB L501.1000 7-18 mg/dL Normal BUN 11 LAB L501.1100 0.55-1.02 mg/dL Normal CREAT,SERUM 0.87 Result Comment: The validity of the calculated GFR AND GFRAA in patients over 70 years has not been determined. Clinical correlation is essential. LAB L501.1110 >60 mL/min Normal EST GFR 74 Result Comment: Non- GFR Calc LAB L501.1115 >60 mL/min Normal EST GFR - AA 89 Result Comment: GFR Calc LAB L501.1255 ml/min Normal Estimated CRCL 59.67 LAB L501.1300 10-20 RATIO Normal BUN/CRE 12.7 LAB L501.2200 8.5-10 mg/dL Low .1 CA 8.1 LAB L501.5300 136-14 mmol/L Normal 5 NA 138 LAB L501.5600 3.5-5. mmol/L Normal 1 K 4.1 LAB L501.5900 98-107 mmol/L Normal CL 105 LAB L501.6100 21.0-3 mmol/L Normal 2.0 CO2 26.0 LAB L501.6200 5-15 Normal GAP 7 Performed By: #### L500.2500, L506.0500 #### [facility] [address] [place], [address] PREALBUMIN Collected: 05/03/2017 Status: F Source: [place] 6:36 AM [facility] REPOSITORY TYPE CODE TESTS RESULT OUT OF REFERENCE UNITS RANGE LAB L506.0500 20.0-40.0 mg/dL Low PREALBUMIN 19.5 Performed By: #### L500.2500, L506.0500 #### [facility] [address] [place], [address] BEDSIDE GLUCOSE Collected: 05/03/2017 Status: F Source: [place] 12:06 AM [facility] REPOSITORY TYPE CODE TESTS RESULT OUT OF REFERENCE UNITS RANGE LAB L501.080 70-110 mg/dL High BEDSIDE GLU 164 Result Comment: MANAGEMENT OF PATIENT CARE PER NURSING PROTOCOL Performed By: #### L501.080 #### [facility] Point of Care [address] [place] [address] CBC W/DIFF, AUTOMATED Collected: 05/03/2017 Status: F Source: [place] 12:05 AM [facility] REPOSITORY TYPE CODE TESTS RESULT OUT OF RANGE REFERENCE UNITS LAB L100.1000 4.4-11.0 K/mm3 High WBC 13.5 LAB L100.1200 4.2-5.4 M/mm3 Normal RBC 4.29 LAB L100.1300 12.0-15.0 g/dl Normal HGB 13.3 LAB L100.1400 37-47 % Normal HCT 38.6 LAB L100.1500 81-99 fL Normal MCV 90.0 LAB L100.1600 27.0-32.0 pg Normal MCH 31.0 LAB L100.1700 32-36 g/gl Normal MCHC 34.5 LAB L100.1810 11.6-14.6 % Normal RDW CV 12.5 LAB L100.1820 35.1-43.9 fl Normal RDW SD 40.6 LAB L100.1900 150-450 K/mm3 Normal PLT 214 LAB L100.2000 6.2-12.0 fl Normal MPV 9.0 LAB L100.2100 47-70 % High NEUT% 91.4 LAB L100.2200 19-41 % Low LY% 2.9 LAB L100.2300 0-10 % Normal MONO% 5.3 LAB L100.2400 0-5 % Normal EO% 0.0 LAB L100.2500 0-1 % Normal BASO% 0.1 LAB L100.2550 0.0-0.9 % Normal IM GRAN % 0.300 Result Comment: IG% - Immature Granulocytes (promyelocytes, myelocytes and metamyelocytes) > 1% indicates that a LEFT SHIFT is Present. LAB L100.2620 2.0-7.7 X10 3/uL High Absolute Neut 12.3 LAB L100.2720 0.83-4.51 X10 3/ul Low Absolute Lymph 0.39 Performed By: #### L100.0100 #### [facility] [address] [place], [address] BREAST MASTECTOMY Observed: 05/02/2017 Status: F Source: [place] (CHOOSE SIDE 12:00 AM [facility] REPOSITORY Patient: SHARON BARRAGAN : 1970 (47/F) Acct Num: [id number] Phys: Juinor Whitman MD Unit Num: [id number] Loc: MS2 [id number] Specimen: [id number] Received: 05/03/17 - 6948 Spec Type: BREAST TISSUES TISSUES: Right breast, NOS COMMENT Reference is made to the patient s right breast ultrasound- guided needle core biopsy from 12/11/15 ([id number]) in which invasive ductal carcinoma was identified. GROSS DESCRIPTION Received in fixative is one container labeled with the patient's name and designated right breast tissue. The specimen consists of 23 fragments of clark- yellow fibrofatty tissue measuring in aggregate 14 x 12 x 2.5 cm and in aggregate weighing 105 gm. Several of the larger fragments contain grossly unremarkable skin. Serial sections do not reveal mass lesions. [employer] sections are submitted in five cassettes. / AM:sharon 05/03/17 TC:5 CPT: 73881 HEADER OPERATION: Delayed breast reconstruction, tram flap PRE-OP DIAGNOSIS: Acquired absence bilateral breasts; disproportion reconstructed breast TISSUE SUBMITTED: Right breast tissue FIXATION TIME: 12 hours MICROSCOPIC DESCRIPTION Slides are reviewed. MICROSCOPIC DIAGNOSIS Right breast, reconstruction: Dense collagenized stroma. Focal reactive and degenerative skeletal muscle change. No evidence of malignancy. AM:sharon 05/04/17 Signed Lee Trujillo 05/04/17 <signature on file> Performed By: #### PBREAST #### [facility] [address], [address] CNOVSP Observed: 05/01/2017 Status: COMPLETED Source: [place] 4:30 PM [facility] REPOSITORY Visit (SP) Office (JATINDER) SHARON BARRAGAN ([id number]) 1970 F Date Time Provider Department 05/01/17 4:30 PM IRON NGUYEN During your visit today, we recorded the following information about you: Temperature Pulse Blood pressure Weight 98 degrees 80/minute 122/80 79.8 kg Iron Nguyen DO 05/01/2017 5:28 PM Signed Diagnosis: 1) Triple negative early stage breast cancer. HPI: The patient is a 47 yo premenopausal female (at time of diagnosis) who underwent a hysterectomy with unilateral oophorectomy 09/2015. About 3 weeks post-op, patient appreciated a lump in the right breast. Subjectively it grew fairly quickly. A diagnostic mammogram 11/19/2015 revealed a 1.2 cm x 0.8 cm x 1.2 cm lobulated mass in the right breast that was suspicious of malignancy. Ultrasound-guided core needle biopsy of 2 lesions in the right breast on 12/09/2015 was performed. The pathology demonstrated that the first lesion revealed invasive ductal carcinoma, nuclear grade 3. The second lesion taken from the lesion at the 9:00 position demonstrated fibroadenoma. Negative for both ER and ID. HER-2 was interpreted as 2+, granular. Subsequent FISH testing revealed it to be nonamplified. MRI of breasts 12/28/2015: ANDquot;IMPRESSION: 1. ?1.3 cm enhancing mass at 7:00, at posterior depth, in the right breast represents the biopsy proven invasive ductal carcinoma. ?Continued surgical/oncologic management is necessary. 2. ?Four additional suspicious enhancing masses (6:00, anterior depth; 9:00, posterior depth; 9:00 posterior depth; central access, anterior depth) in the right breast. ?If breast conservation is desired, additional biopsy/biopsies is/are recommended. ?Per the electronic medical record, the patient is currently planning for mastectomy. 3. ?Suspicious 0.6 cm enhancing mass at 1:00, at middle depth, in the left breast. ?Second look ultrasound with subsequent biopsy is recommended. ?If no sonographic correlate is identified, then an MRI guided biopsy is recommended. 4. ?Suspicious 0.6 cm enhancing mass at 6:00, at posterior depth, in the left breast. ?Second look ultrasound with subsequent biopsy is recommended. ?If no sonographic correlate is identified, then an MRI guided biopsy is recommended. 5. ?No MRI evidence of internal mammary or axillary lymphadenopathy.ANDquot; Quit smoking 01/02/2016. Patient underwent a right-sided mastectomy along with sentinel lymph node biopsy as well as a prophylactic left mastectomy with left sentinel lymph node biopsy on 01/12/2016. Final pathology demonstrated that within the right breast there was one focus of cancer measuring 1.5 cm. DCIS and LCIS were not present. Overall grade was 3. Margins were negative. Lymphovascular invasion was not observed. 4 lymph nodes were retrieved and all were negative for disease. Specimen from the left breast revealed diffuse fibrocystic changes and intraductal hyperplasia without atypia. No malignancy was observed. One sentinel lymph node was retrieved on the left and it was negative for disease. Previous therapy: 1) AC followed by Taxol. Competed 06/16/2016. 2) Adjuvant radiation completed 08/30/2016. Presents for ongoing oncologic management. Interim history: She's been doing a lot better the last month or 2. All her symptoms of neuropathy and myalgias have completely resolved. She still has some residual pain of the left heel and ankle but she has a previous diagnosis of plantar fasciitis and heel spurs. She says that she feels better now than she is felt in the past 3 or 4 years. Her appetite is normal she has no other musculoskeletal pain and she has no respiratory symptoms. 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 PMH, medications and allergies as below personally reviewed by me today. Any changes documented in appropriate section. ROS: Constitutional: Denies episodes of fever and night sweats. Neuro: See above. HEENT: No recent change in voice, vision or hearing. Resp: Denies cough, wheeze and hemoptysis. Denies shortness of breath at rest. Denies GÓMEZ. CVS: Denies exertional chest pain, PND, orthopnea and LE edema. GI: Denies dysgeusia. Denies symptoms of stomatitis. Denies dysphagia and odynophagia. Denies reflux. : Denies dysuria or gross hematuria. No symptoms of bladder outlet obstruction. Endo: Denies hot flashes. Denies polyuria and polydipsia. Denies heat and cold intolerance. Musculoskeletal: See above. Derm: Denies rash. Denies jaundice and diffuse pruritis. Heme: Denies unusual bleeding and unexplained bruising. Psych: Normal mood. PHYSICAL EXAM: Vitals: Blood pressure 122/80, pulse 80, temperature 36.7 ?C (98 ?F), temperature source Oral, weight 79.8 kg (176 lb), last menstrual period 08/31/2015. Well-appearing and in no acute distress. EYES: Sclerae are anicteric bilaterally. NECK: Supple. LYMPHATIC: There is no palpable cervical, supraclavicular, axillary or inguinal adenopathy. RESPIRATORY: Inspiratory breath sounds are of normal intensity in all [place]. No rales, wheezes or rhonchi. CARDIOVASCULAR: Rhythm is regular. Normal intensity S1/S2. There is no gallop or murmur. 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 Left mastectomy site no chest wall mass or nodule. ABDOMEN: The abdomen is nondistended. No organomegaly. No tenderness. Extremities: No swelling or edema. SKIN: No jaundice or rash. No petechiae. 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 No focal motor weakness. The patellar and Achilles DTRs are symmetric and normal. MUSCULOSKELETAL: No muscle wasting or tenderness. ASSESSMENT/PLAN: (C50.511) Breast cancer of lower-outer quadrant of right female breast (HCC) (primary encounter diagnosis) Assessment: -pT1c (1.5 cm; grade 3; no ALI) pN0(sln) MX ER/ID negative, HER-2 nonamplified invasive ductal carcinoma the right breast. -Currently no concerning symptoms or exam findings. -She will be undergoing right-sided TRAM flap tomorrow. Plan: -OV in 3 months. Iron Nguyen DO Referring Provider: IRON NGUYEN [[id number]] Allergies As of Date: 05/01/2017 Noted Allergy Reaction HAYFEVER (HOMEOPATHIC PRODUCTS) 03/07/2006 poultry [Other] 03/07/2006 Comments: [place], chicken Date Reviewed: 05/01/2017 Reviewed by: Alexa Arizmendi - Fully Assessed Reason for Visit: Established Patient [[id number]] Primary Visit Diagnosis:Malignant neoplasm of lower-outer quadrant of right breast of female, estrogen receptor negative (HCC) [C50.511, Z17.1] Follow-up and Disposition History Recorded Prescriptions as of 05/01/2017 Sig: TRAZODONE 50 MG TABLET take 2 tablets by mouth at be* ATENOLOL 25 MG TABLET Take 1 tablet by mouth once d* SERTRALINE 50 MG TABLET Take 3 tablets by mouth once * MELOXICAM 15 MG TABLET Take 1 tablet by mouth once d* ACETAMINOPHEN 500 MG TABLET Take 500 mg by mouth as neede* BENZONATATE 100 MG CAPSULE Take 2 capsules by mouth thre* COMPOUNDED PRESCRIPTION Powerstep original full lengh* Medication notes this encounter BENZONATATE 100 MG CAPSULE >> Alexa Arizmendi MA 05/01/2017 4:00 PM >> ALEXA ARIZMENDI MA May 01, 2017 4:00 PM Completed Problem List As Of Date 05/01/2017 Noted Resolved 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] INVALID FOR*02/20/2017 Sciatica of right side [M54.31] INVALID FOR*02/04/2016 Lumbar sprain and strain INVALID FOR*02/04/2016 SI (sacroiliac) joint inflammation (HCC) [M46.1]INVALID FOR*02/04/2016 Lumbar radicular pain [M54.16] INVALID FOR*02/04/2016 Fibroid uterus [D25.9] INVALID FOR*04/04/2016 Breast cancer of lower-outer quadrant of right *INVALID FOR* Severe episode of recurrent major depressive di*INVALID FOR* Chest wall pain following surgery [R07.89, G89.*INVALID FOR*06/15/2016 Priority: Moderate Financial difficulties [Z59.8] INVALID FOR* Status post mastectomy [Z90.10] INVALID FOR* Insomnia due to medical condition [G47.01] INVALID FOR* Stress at home [F43.9] INVALID FOR* History of Clostridium difficile [VWX3677] INVALID FOR*02/20/2017 More... Atherosclerosis of aorta (HCC) [I70.0] INVALID FOR* More... Palpitations [R00.2] INVALID FOR* Lymphedema [I89.0] INVALID FOR* Chronic bilateral low back pain with bilateral *INVALID FOR* More... Bilateral plantar fasciitis [M72.2] INVALID FOR* Encounter Status:Closed by IRON NGUYEN DO on 05/01/17 PROGRESS Observed: 05/01/2017 Status: COMPLETED Source: [place] 4:16 PM [facility] REPOSITORY O ID: [id number] Author: Iron Nguyen Service: (none) Author Type: Physician Type: Progress Notes Filed: 05/01/2017 5:28 PM Note Text: Diagnosis: 1) Triple negative early stage breast cancer. HPI: The patient is a 47 yo premenopausal female (at time of diagnosis) who underwent a hysterectomy with unilateral oophorectomy 09/2015. About 3 weeks post-op, patient appreciated a lump in the right breast. Subjectively it grew fairly quickly. A diagnostic mammogram 11/19/2015 revealed a 1.2 cm x 0.8 cm x 1.2 cm lobulated mass in the right breast that was suspicious of malignancy. Ultrasound-guided core needle biopsy of 2 lesions in the right breast on 12/09/2015 was performed. The pathology demonstrated that the first lesion revealed invasive ductal carcinoma, nuclear grade 3. The second lesion taken from the lesion at the 9:00 position demonstrated fibroadenoma. Negative for both ER and ID. HER-2 was interpreted as 2+, granular. Subsequent FISH testing revealed it to be nonamplified. MRI of breasts 12/28/2015: IMPRESSION: 1. ?1.3 cm enhancing mass at 7:00, at posterior depth, in the right breast represents the biopsy proven invasive ductal carcinoma. ?Continued surgical/oncologic management is necessary. 2. ?Four additional suspicious enhancing masses (6:00, anterior depth; 9:00, posterior depth; 9:00 posterior depth; central access, anterior depth) in the right breast. ?If breast conservation is desired, additional biopsy/biopsies is/are recommended. ?Per the electronic medical record, the patient is currently planning for mastectomy. 3. ?Suspicious 0.6 cm enhancing mass at 1:00, at middle depth, in the left breast. ?Second look ultrasound with subsequent biopsy is recommended. ?If no sonographic correlate is identified, then an MRI guided biopsy is recommended. 4. ?Suspicious 0.6 cm enhancing mass at 6:00, at posterior depth, in the left breast. ?Second look ultrasound with subsequent biopsy is recommended. ?If no sonographic correlate is identified, then an MRI guided biopsy is recommended. 5. ?No MRI evidence of internal mammary or axillary lymphadenopathy. Quit smoking 01/02/2016. Patient underwent a right-sided mastectomy along with sentinel lymph node biopsy as well as a prophylactic left mastectomy with left sentinel lymph node biopsy on 01/12/2016. Final pathology demonstrated that within the right breast there was one focus of cancer measuring 1.5 cm. DCIS and LCIS were not present. Overall grade was 3. Margins were negative. Lymphovascular invasion was not observed. 4 lymph nodes were retrieved and all were negative for disease. Specimen from the left breast revealed diffuse fibrocystic changes and intraductal hyperplasia without atypia. No malignancy was observed. One sentinel lymph node was retrieved on the left and it was negative for disease. Previous therapy: 1) AC followed by Taxol. Competed 06/16/2016. 2) Adjuvant radiation completed 08/30/2016. Presents for ongoing oncologic management. Interim history: She's been doing a lot better the last month or 2. All her symptoms of neuropathy and myalgias have completely resolved. She still has some residual pain of the left heel and ankle but she has a previous diagnosis of plantar fasciitis and heel spurs. She says that she feels better now than she is felt in the past 3 or 4 years. Her appetite is normal she has no other musculoskeletal pain and she has no respiratory symptoms. 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 PMH, medications and allergies as below personally reviewed by me today. Any changes documented in appropriate section. ROS: Constitutional: Denies episodes of fever and night sweats. Neuro: See above. HEENT: No recent change in voice, vision or hearing. Resp: Denies cough, wheeze and hemoptysis. Denies shortness of breath at rest. Denies GÓMEZ. CVS: Denies exertional chest pain, PND, orthopnea and LE edema. GI: Denies dysgeusia. Denies symptoms of stomatitis. Denies dysphagia and odynophagia. Denies reflux. : Denies dysuria or gross hematuria. No symptoms of bladder outlet obstruction. Endo: Denies hot flashes. Denies polyuria and polydipsia. Denies heat and cold intolerance. Musculoskeletal: See above. Derm: Denies rash. Denies jaundice and diffuse pruritis. Heme: Denies unusual bleeding and unexplained bruising. Psych: Normal mood. PHYSICAL EXAM: Vitals: Blood pressure 122/80, pulse 80, temperature 36.7 ?C (98 ?F), temperature source Oral, weight 79.8 kg (176 lb), last menstrual period 08/31/2015. Well-appearing and in no acute distress. EYES: Sclerae are anicteric bilaterally. NECK: Supple. LYMPHATIC: There is no palpable cervical, supraclavicular, axillary or inguinal adenopathy. RESPIRATORY: Inspiratory breath sounds are of normal intensity in all [place]. No rales, wheezes or rhonchi. CARDIOVASCULAR: Rhythm is regular. Normal intensity S1/S2. There is no gallop or murmur. 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 Left mastectomy site no chest wall mass or nodule. ABDOMEN: The abdomen is nondistended. No organomegaly. No tenderness. Extremities: No swelling or edema. SKIN: No jaundice or rash. No petechiae. 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 No focal motor weakness. The patellar and Achilles DTRs are symmetric and normal. MUSCULOSKELETAL: No muscle wasting or tenderness. ASSESSMENT/PLAN: (C50.511) Breast cancer of lower-outer quadrant of right female breast (HCC) (primary encounter diagnosis) Assessment: -pT1c (1.5 cm; grade 3; no ALI) pN0(sln) MX ER/ID negative, HER-2 nonamplified invasive ductal carcinoma the right breast. -Currently no concerning symptoms or exam findings. -She will be undergoing right-sided TRAM flap tomorrow. Plan: -OV in 3 months. Iron Nguyen DO PROGRESS Observed: 05/01/2017 Status: COMPLETED Source: [place] 3:52 PM [facility] REPOSITORY HNO ID: [id number] Author: Alejandra Gudino) [place] Service: (none) Author Type: Business Office Director Type: Progress Notes Filed: 05/01/2017 3:54 PM Note Text: Social Work Problem Referral Note INFORMATION/REFERRAL : Sharon Barragan 47 year old female was referred by [facility] Social Work for the following reason(s): Assistance with finances during reconstruction surgery PERSONS INTERVIEWED: patient INTERVENTION: Information AND Referral Service Co-ordination Affect/Mood: The patient is noted as appropriate IDENTIFIED PROBLEMS/NEEDS: information needed for assistance Intervention/Referral to be provided:Arrangements made for continuity of care IMPRESSION/PLAN: Patient met with [facility] to obtain surgical pathology and treatment plan from when she had chemotherapy to apply for assistance while she is getting reconstructive surgery. Patient reports no other needs at this time. [facility] provided patient with contact information in case anything else is needed. F/U APPOINTMENT: TRISH Goodman CBC-COMPLETE BLOOD CNT Collected: 04/25/2017 Status: F Source: [place] NO DIFF 9:15 AM [facility] REPOSITORY TYPE CODE TESTS RESULT OUT OF RANGE REFERENCE UNITS LAB L100.1000 4.4-11.0 K/mm3 Normal WBC 5.2 LAB L100.1200 4.2-5.4 M/mm3 Normal RBC 4.48 LAB L100.1300 12.0-15.0 g/dl Normal HGB 13.9 LAB L100.1400 37-47 % Normal HCT 39.4 LAB L100.1500 81-99 fL Normal MCV 87.9 LAB L100.1600 27.0-32.0 pg Normal MCH 31.0 LAB L100.1700 32-36 g/gl Normal MCHC 35.3 LAB L100.1810 11.6-14.6 % Normal RDW CV 12.3 LAB L100.1820 35.1-43.9 fl Normal RDW SD 38.8 LAB L100.1900 150-450 K/mm3 Normal PLT 197 LAB L100.2000 6.2-12.0 fl Normal MPV 9.0 Performed By: #### L100.0500 #### [facility] [address] [place], [address] PROTHROMBIN TIME W/INR Collected: 04/25/2017 Status: F Source: [place] 9:15 AM [facility] REPOSITORY TYPE CODE TESTS RESULT OUT OF RANGE REFERENCE UNITS LAB L300.4150 11.7-14.9 SECONDS Normal PROTIME 12.4 LAB L300.4200 Normal INR 1.0 Performed By: #### L300.3900, L300.4310 #### [facility] [address] [place], [address] PARTIAL THROMBOPLAST Collected: 04/25/2017 Status: F Source: [place] TIME 9:15 AM [facility] REPOSITORY TYPE CODE TESTS RESULT OUT OF RANGE REFERENCE UNITS LAB L300.4310 24.1-36.2 Seconds Normal PTT 26.4 Performed By: #### L300.3900, L300.4310 #### [facility] [address] [place], [address] OBSOLETE Observed: 04/16/2017 Status: COMPLETED Source: [place] 12:00 AM [facility] REPOSITORY Refill (INTMWS) SHARON BARRAGAN ([id number]) 1970 F Date Time Provider Department 04/16/17 GEORGIE SCHULTZ (FOOD SERVER) INTMWS During your visit today, we recorded the following information about you: Michell Parada LPN 04/17/2017 11:40 AM Signed Patient has been identified by name and date of : Yes Pharmacy phones for refill(s): Pending Prescriptions Disp Refills TRAZODONE 50 MG TABLET 60 tablet 5 Sig: take 2 tablets by mouth at bedtime STANISLAW: Yes Date of last office visit in primary care: 02/20/2017 6 month f/u scheduled w/PCP: 08/21/2017 Last 2 Encounter Wt Readings: Date: Wt: 03/23/2017 76.2 kg (168 lb) 02/20/2017 75.3 kg (166 lb) Previous labs/tests for medication: Not applicable Please advise. Thank you. Michell Schultz CNP 04/18/2017 7:40 AM Signed The following approved medication requests have been transmitted electronically. Signed Prescriptions Disp Refills traZODone (DESYREL) 50 mg tablet 60 tablet 5 Sig: take 2 tablets by mouth at bedtime STANISLAW: No Authorizing Provider: GEORGIE SCHULTZ ([place]) Georgie Schultz CNP Allergies As of Date: 04/16/2017 Noted Allergy Reaction HAYFEVER (HOMEOPATHIC PRODUCTS) 03/07/2006 poultry [Other] 03/07/2006 Comments: [place], chicken Date Reviewed: 03/23/2017 Reviewed by: Yuliya Lyman LPN - Fully Assessed Reason for Visit: Refill Request [94] Order(s):traZODone (DESYREL) 50 mg tablettake 2 tablets by mouth at bedtimeDisp: 60 tabletRfl: 5 Prescriptions as of 04/16/2017 Sig: TRAZODONE 50 MG TABLET take 2 tablets by mouth at be* ATENOLOL 25 MG TABLET Take 1 tablet by mouth once d* BENZONATATE 100 MG CAPSULE Take 2 capsules by mouth thre* SERTRALINE 50 MG TABLET Take 3 tablets by mouth once * MELOXICAM 15 MG TABLET Take 1 tablet by mouth once d* COMPOUNDED PRESCRIPTION Powerstep original full lengh* ACETAMINOPHEN 500 MG TABLET Take 500 mg by mouth as neede* Problem List As Of Date 04/16/2017 Noted Resolved 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] INVALID FOR*02/20/2017 Sciatica of right side [M54.31] INVALID FOR*02/04/2016 Lumbar sprain and strain INVALID FOR*02/04/2016 SI (sacroiliac) joint inflammation (HCC) [M46.1]INVALID FOR*02/04/2016 Lumbar radicular pain [M54.16] INVALID FOR*02/04/2016 Fibroid uterus [D25.9] INVALID FOR*04/04/2016 Breast cancer of lower-outer quadrant of right *INVALID FOR* Severe episode of recurrent major depressive di*INVALID FOR* Chest wall pain following surgery [R07.89, G89.*INVALID FOR*06/15/2016 Priority: Moderate Financial difficulties [Z59.8] INVALID FOR* Status post mastectomy [Z90.10] INVALID FOR* Insomnia due to medical condition [G47.01] INVALID FOR* Stress at home [F43.9] INVALID FOR* History of Clostridium difficile [NRB9351] INVALID FOR*02/20/2017 More... Atherosclerosis of aorta (HCC) [I70.0] INVALID FOR* More... Palpitations [R00.2] INVALID FOR* Lymphedema [I89.0] INVALID FOR* Chronic bilateral low back pain with bilateral *INVALID FOR* More... Bilateral plantar fasciitis [M72.2] INVALID FOR* Prescriptions ordered this encounter Disp Refills Start End TRAZODONE 50 MG TABLET 60 t* 5 04/18/2017 Sig: take 2 tablets by mouth at bedtime Medications Discontinued During This Encounter traZODone (DESYREL) 50 mg tablet 60 t* 5 11/14/2016 04/18/2017 Sig: take 2 tablets by mouth at bedtime Disc: Reason for discontinue is not on file. Encounter Status:Closed by GEORGIE SCHULTZ CNP on 04/18/17 OBSOLETE Observed: 04/16/2017 Status: COMPLETED Source: [place] 12:00 AM [facility] REPOSITORY Refill (INTMWS) SHARON BARRAGAN ([id number]) 1970 F Date Time Provider Department 04/16/17 IDA FIGUEROA ([place])(HIST) INTMWS During your visit today, we recorded the following information about you: Guanako Abreu LPN 04/18/2017 10:20 AM Signed Patient's request for medication is as follows: Refused Prescriptions Disp Refills sertraline (ZOLOFT) 100 mg tablet [Pharmacy Med Name: SERTRALINE HCL 100 MG TABLET] 30 tablet 11 Sig: take 1 tablet by mouth once daily WITH 50 MG TO EQUAL 150 MG STANISLAW: No Refused By: GUANAKO ABREU LPN Reason for Refusal: A Refill not appropriate Reason for Refusal Comment: dosage change, new order sent 02/2017 Prescription(s) as above. Please process accordingly. Guanako Abreu LPN Allergies As of Date: 04/16/2017 Noted Allergy Reaction HAYFEVER (HOMEOPATHIC PRODUCTS) 03/07/2006 poultry [Other] 03/07/2006 Comments: [place], chicken Date Reviewed: 03/23/2017 Reviewed by: Yuliya Lyman LPN - Fully Assessed Reason for Visit: Refill Request [94] Prescriptions as of 04/16/2017 Sig: TRAZODONE 50 MG TABLET take 2 tablets by mouth at be* ATENOLOL 25 MG TABLET Take 1 tablet by mouth once d* BENZONATATE 100 MG CAPSULE Take 2 capsules by mouth thre* SERTRALINE 50 MG TABLET Take 3 tablets by mouth once * MELOXICAM 15 MG TABLET Take 1 tablet by mouth once d* COMPOUNDED PRESCRIPTION Powerstep original full lengh* ACETAMINOPHEN 500 MG TABLET Take 500 mg by mouth as neede* Problem List As Of Date 04/16/2017 Noted Resolved 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] INVALID FOR*02/20/2017 Sciatica of right side [M54.31] INVALID FOR*02/04/2016 Lumbar sprain and strain INVALID FOR*02/04/2016 SI (sacroiliac) joint inflammation (HCC) [M46.1]INVALID FOR*02/04/2016 Lumbar radicular pain [M54.16] INVALID FOR*02/04/2016 Fibroid uterus [D25.9] INVALID FOR*04/04/2016 Breast cancer of lower-outer quadrant of right *INVALID FOR* Severe episode of recurrent major depressive di*INVALID FOR* Chest wall pain following surgery [R07.89, G89.*INVALID FOR*06/15/2016 Priority: Moderate Financial difficulties [Z59.8] INVALID FOR* Status post mastectomy [Z90.10] INVALID FOR* Insomnia due to medical condition [G47.01] INVALID FOR* Stress at home [F43.9] INVALID FOR* History of Clostridium difficile [UWG3840] INVALID FOR*02/20/2017 More... Atherosclerosis of aorta (HCC) [I70.0] INVALID FOR* More... Palpitations [R00.2] INVALID FOR* Lymphedema [I89.0] INVALID FOR* Chronic bilateral low back pain with bilateral *INVALID FOR* More... Bilateral plantar fasciitis [M72.2] INVALID FOR* Encounter Status:Closed by GUANAKO ABREU LPN on 04/18/17 ALLERGIES ALLERGIES DATE TYPE / CODE NAME / CODE REACTION SEVERITY SOURCE Drug cat Lips throat SV [place] Allergy/528640235( dander/[id number] swole [facility] SNOMED CT) 6(RXNORM) Hospital Repository Miscellaneous FIBERGLASS SEVERE ITCHING SV [place] Allergy/722165563( AND RASH [facility] SNOMED CT) Hospital Repository Miscellaneous POULTRY Anaphylaxis Unknown [place] Allergy/239356837( [facility] SNOMED CT) Hospital Repository DRUG/[id number](SNO HOMEOPATHIC [place] [address]) PRODUCTS Clinic Main [place] Repository Miscellaneous OTHER [place] 6 Allergy/609590824( [facility] Main SNOMED CT) [place] Repository ENCOUNTERS ENCOUNTERS ADMIT/DISCHARGE ACCOUNT NUMBER ADMITTING ENCOUNTER LOCATION SOURCE CLASS 04/12/2018 [id number] Ambulatory [facility] ding:MTRAD Repository 04/12/2018/04/12/19 [id number] Ambulatory BMSBuilding: [place] 19 BMS.[facility] Repository 04/11/2018 [id number] Ambulatory [facility] ding:PSN Repository 04/09/2018/04/09/19 [id number] Emergency [address] ding:ED Repository 04/06/2018/04/06/19 [id number] Ambulatory BMSBuilding: [place] [facility] [place] 04/02/2018 [id number] Ambulatory [facility] ding:MTLAB Repository 03/29/2018/03/29/19 [id number] [facility] [place] [facility] 03/21/2018/03/21/19 [id number] Ambulatory BMSBuilding: [place] [facility] [place] 03/10/2018/03/10/20 [id number] Emergency [address] ding:ED Repository 03/05/2018 [id number] Ambulatory BMSBuilding: [place] BMS.[facility] Repository 03/01/2018/03/01/20 [id number] Ambulatory BMSBuilding: [place] 18 BMS.[facility] [place] 02/12/2018/02/13/20 [id number] Ambulatory BMSBuilding: [place] [facility] [place] 02/05/2018/02/06/20 [id number] Ambulatory BMSBuilding: [place] [facility] [place] 01/31/2018/02/01/20 [id number] Ambulatory BMSBuilding: [place] 18 [facility]MS[facility] [place] 01/31/2018 [id number] Ambulatory [facility] ding:MTLAB Repository 01/31/2018/02/02/20 [id number] Ambulatory [address] Repository 01/28/2018 [id number] Ambulatory [facility] ding:WC Repository 01/24/2018/01/26/20 [id number] Junior Whitman Ambulatory [address] ding:JE5Sifs Repository : NO436Abu: 1 01/24/2018 [id number] Junior Whitman Ambulatory BMSBuilding: [place] BMS.[facility] [place] 01/24/2018 [id number] Junior Whitman Ambulatory BMSBuilding: [place] BMS.[facility] [place] 01/24/2018 [id number] Junior Whitman Ambulatory BMSBuilding: [place] BMS.[facility] [place] 01/24/2018 [id number] Junior Whitman Ambulatory BMSBuilding: [place] BMS.[facility] [place] 01/18/2018/01/19/20 [id number] Ambulatory BMSBuilding: [place] 18 BMS.[facility] Repository 01/16/2018 [id number] Ambulatory BMSBuilding: [facility] Repository 01/05/2018/01/18/20 [id number] Ambulatory [address] ding:WC Repository 01/04/2018 [id number] Ambulatory BMSBuilding: [facility] Repository 01/04/2018 [id number] Ambulatory BMSBuilding: [facility] Repository 01/03/2018 [id number] Ambulatory BMSBuilding: [facility] Repository 12/29/2017 [id number] Ambulatory BMSBuilding: [place] BMS.CF.[facility] [place] [place] Repository 12/27/2017 [id number] Ambulatory BMSBuilding: [place] BMS.CF.[facility] [place] [place] Repository 12/21/2017/12/22/19 [id number] Ambulatory BMSBuilding: [place] 18 [facility] [place] 12/20/2017 [id number] Ambulatory BMSBuilding: [facility] Repository 12/19/2017 [id number] Ambulatory BMSBuilding: [place] BMS.[facility] [place] 12/15/2017/12/18/19 [id number] Ambulatory [address] ding:WC Repository 12/14/2017/12/15/19 [id number] Emergency [address] ding:ED Repository 12/14/2017 [id number] Ambulatory BMSBuilding: [place] BMS.CF.[facility] Repository 12/13/2017 [id number] Ambulatory BMSBuilding: [place] BMS.CF.[facility] [place] [place] Repository 12/07/2017 [id number] Ambulatory BMSBuilding: [place] BMS.CF.[facility] Repository 11/30/2017 [id number] Ambulatory BMSBuilding: [place] BMS.CF.[facility] Repository 11/29/2017 [id number] Ambulatory BMSBuilding: [place] BMS.[facility] [place] 11/23/2017/11/24/19 [id number] Ambulatory BMSBuilding: [place] 18 BMS.[facility] [place] 11/22/2017 [id number] Ambulatory BMSBuilding: [place] BMS.[facility] [place]ository 11/13/2017/11/18/19 [id number] Ambulatory [address] ding:WC Repository 11/08/2017 [id number] Ambulatory BMSBuilding: [place] BMS.[facility] [place] 11/06/2017 [id number] Ambulatory BMSBuilding: [place] BMS.[facility] Repository 10/31/2017/11/01/19 [id number] Ambulatory [address] Repository 10/31/2017/11/02/19 [id number] Ambulatory [address] Repository 10/30/2017/10/31/19 [id number] Ambulatory [address] Repository 10/26/2017 [id number] Ambulatory BMSBuilding: [place] BMS.CF.[facility] Repository 10/25/2017 [id number] Ambulatory BMSBuilding: [place] BMS.[facility] [place] 10/19/2017 [id number] Ambulatory BMSBuilding: [place] BMS.CF.[facility] Repository 10/18/2017/10/19/19 [id number] Ambulatory BMSBuilding: [place] 18 BMS.[facility] [place] 10/18/2017 [id number] Ambulatory BMSBuilding: [place] BMS.CF[facility] [place]ository 10/12/2017/10/18/19 [id number] Ambulatory [address] ding:WC Repository 10/12/2017 [id number] Ambulatory [facility] ding:PSN Repository 10/12/2017 [id number] Ambulatory BMSBuilding: [place] [facility] Repository 10/10/2017/10/11/19 [id number] Ambulatory [address] Repository 10/10/2017/10/12/19 [id number] Ambulatory [address] Repository 10/09/2017 [id number] Ambulatory BMSBuilding: [place] BMS.CF[facility] [place] 10/07/2017/10/08/19 [id number] Emergency [address] ding:ED Repository 10/05/2017 [id number] Ambulatory BMSBuilding: [place] BMS.CF.[facility] Repository 10/04/2017 [id number] Ambulatory BMSBuilding: [place] BMS.[facility] [place] 09/27/2017/09/28/19 [id number] Ambulatory BMSBuilding: [place] 18 [facility]MS.[facility] [place]ository 09/19/2017/09/26/19 [id number] Junior Whitman Inpatient [place] ding:TW8Qvyo Repository : TU001Ehc: 1 09/19/2017 [id number] Junior Whitman Ambulatory BMSBuilding: [place] BMS.CF[facility] [place] 09/19/2017 [id number] Junior Whitman Ambulatory BMSBuilding: [place] BMS.[facility] [place] 09/19/2017 [id number] Junior Whitman Ambulatory BMSBuilding: [place] BMS.CF[facility] [place] 09/19/2017 [id number] Junior Whitman Ambulatory BMSBuilding: [place] BMS.[facility] [place]ository 09/07/2017/09/17/19 [id number] Ambulatory [address] ding: Repository 08/31/2017 [id number] Ambulatory BMSBuilding: [place] BMS.CF.[facility] Repository 08/30/2017/08/31/19 [id number] Ambulatory BMSBuilding: [place] 18 BMS.[facility] Repository 08/24/2017/08/26/19 [id number] Ambulatory [address] Repository 08/22/2017 [id number] Ambulatory [facility] ding:LABSPEC Repository 08/22/2017 [id number] Ambulatory [facility] ding: Repository 08/17/2017/08/18/19 [id number] Ambulatory [address] ding: Repository 08/17/2017 [id number] Ambulatory BMSBuilding: [place] BMS.CF.[facility] Repository 08/15/2017 [id number] Ambulatory BMSBuilding: [place] BMS[facility] [place] 08/10/2017 [id number] Ambulatory BMSBuilding: [place] BMS.CF.[facility] Repository 08/08/2017/08/09/19 [id number] Ambulatory [address] Repository 08/08/2017/08/09/19 [id number] Ambulatory [address] Repository 08/03/2017 [id number] Ambulatory BMSBuilding: [place] BMS.CF.[facility] Repository 08/02/2017 [id number] Ambulatory BMSBuilding: [place] BMS.CF[facility] Repository 07/31/2017/08/01/19 [id number] Ambulatory [address] Repository 07/31/2017/08/02/19 [id number] Ambulatory [address] Repository 07/31/2017 [id number] Ambulatory BMSBuilding: [place] BMS.[facility] [place] 07/21/2017 [id number] Ambulatory BMSBuilding: [place] BMS.CF.[facility] Repository 07/20/2017 [id number] Ambulatory BMSBuilding: [place] [facility] Repository 07/19/2017 [id number] Ambulatory BMSBuilding: [place] BMS.CF.[facility] Repository 07/18/2017 [id number] Ambulatory BMSBuilding: [place] BMS.CF[facility] [place]ository 07/17/2017/07/18/19 [id number] Ambulatory [address] ding:WC Repository 07/13/2017 [id number] Ambulatory BMSBuilding: [place] [facility] Repository 07/06/2017 [id number] Ambulatory BMSBuilding: [place] BMS.CF.[facility] Repository 07/03/2017 [id number] Ambulatory BMSBuilding: [place] BMS[facility] [place]ository 06/28/2017/06/29/19 [id number] Emergency [address] ding:ED Repository 06/28/2017 [id number] Ambulatory BMSBuilding: [place] BMS.CF.[facility] Repository 06/23/2017 [id number] Ambulatory BMSBuilding: [place] BMS.CF[facility] [place]ository 06/21/2017 [id number] Ambulatory BMSBuilding: [place] BMS.CF[facility] Repository 06/19/2017 [id number] Ambulatory BMSBuilding: [place] BMS.[facility] Repository 06/17/2017 [id number] [facility] [place] [facility] 06/16/2017/06/18/19 [id number] Ambulatory [address] ding: Repository 06/14/2017 [id number] Ambulatory BMSBuilding: [place] BMS.[facility] Repository 06/14/2017 [id number] Ambulatory B[place]Building: [place] [facility] Repository 06/12/2017 [id number] Ambulatory BMSBuilding: [place] BMS.[facility] Repository 06/05/2017 [id number] Ambulatory BMSBuilding: [place] BMS.[facility] Repository 05/31/2017 [id number] Ambulatory [facility] ding:MEDOUTP Repository 05/30/2017 [id number] Ambulatory BMSBuilding: [place] BMS.[facility] Repository 05/29/2017 [id number] Ambulatory [facility] Repository 05/19/2017/05/26/19 [id number] Junior Whitman Inpatient [address] ding:IB0Hygb Repository : MV220Lpl: 1 05/19/2017 [id number] Junior Whitman Ambulatory BMSBuilding: [place] BMS.[facility] Repository 05/19/2017 [id number] Junior Whitman Ambulatory BMSBuilding: [place] BMS.[facility] Repository 05/19/2017 [id number] Junior Whitman Ambulatory BMSBuilding: [place] BMS.[facility] Repository 05/19/2017 [id number] Junior Whitman Ambulatory BMSBuilding: [place] BMS.[facility] Repository 05/19/2017 [id number] Junior Whitman Ambulatory BMSBuilding: [place] BMS.[facility] Repository 05/19/2017 [id number] Junior Whitman Ambulatory BMSBuilding: [place] BMS.[facility] Repository 05/19/2017/05/20/19 [id number] Ambulatory BMSBuilding: [place] 18 [facility]MS.[facility] [place] 05/18/2017/05/19/19 [id number] Ambulatory BMSBuilding: [place] [facility] BMS.[facility] [place] 05/17/2017 [id number] Ambulatory BMSBuilding: [place] B[facility] Repository 05/16/2017/05/16/19 [id number] Ambulatory BMSBuilding: [place] 18 BMS.[facility] [place]ository 05/15/2017 [id number] Ambulatory [facility] ding:LABSPEC Repository 05/15/2017/05/15/19 [id number] Ambulatory BMSBuilding: [place] 18 [facility]MS.[facility] [place]/12/2017/05/12/19 [id number] Ambulatory BMSBuilding: [place] 18 BMS.[facility] [place] 05/11/2017/05/11/19 [id number] Ambulatory BMSBuilding: [place] 18 BMS.[facility] [place] 05/02/2017/05/10/19 [id number] Junior Whitman Inpatient [address] ding:[id number] Repository : [id number]: 1 05/02/2017 [id number] Juinor Whitman Ambulatory BMSBuilding: [place] BMS.[facility] [place] 05/02/2017 [id number] Junior Whitman Ambulatory BMSBuilding: [place] BMS.[facility] [place] 05/02/2017 [id number] Junior Whitman Ambulatory BMSBuilding: [place] BMS.[facility] [place] 05/02/2017 [id number] Junior Whitman Ambulatory BMSBuilding: [place] BMS.[facility] [place] 05/02/2017 [id number] Junior Whitman Ambulatory BMSBuilding: [place].[facility] [place] 05/02/2017 [id number] Junior Whitman Ambulatory BMSBuilding: [place]MS.[facility] [place] 05/01/2017/05/03/19 [id number] Ambulatory [address] Repository 04/05/2017/04/05/19 [id number] Ambulatory BMSBuilding: [place] 18 BMS.WPS [facility] Repository PAYERS PAYERS ENCOUNTER GUARANTOR PAYER SUBSCRIBER SOURCE 04/12/2018 SHARON [id number] Primary SHARON E ROCKDOB: [place] [address] Insurance:CARESOURCEP [id number] [facility]on [facility] Number: Hospital [id number]: (500 [id number] Repository [phone] () Date:2018-04-12[address]ATTN: [place] [address]MD: 04/12/2018 Secondary NOT GIVENUNK [place] Insurance:SELF PAY [facility] Number: Effective Repository Date:2018-04-12 04/12/2018 SHARON Holland [id number] Primary SHARON E ROCKDOB: [place] [address] Insurance[facility] [place] [id number] Seton Hospital Number: Hospital [id number]: ([phone] [id number] Repository [phone] () Date:2018-04-10[address]ATTN: [place] [address]FI: 04/12/2018 Secondary NOT GIVENUNK [place] Insurance:SELF PAY [facility] Number: Effective Repository Date:2018-04-12 04/11/2018 SHARON E [id number] Primary SHARON E ROCKDOB: [place] [address] Insurance:CARESOURC [id number] Seton Hospital Number: Hospital [id number]: ([phone]) [id number] Repository [phone] () Date:2018-01-24[address]ATTN: [place] [address]OR: 04/11/2018 Secondary NOT GIVENUNK [place] Insurance:SELF PAY [facility] Number: Effective Repository Date:2018-01-24 04/09/2018 SHARON Amalia [id number] Primary SHARON E ROCKDOB: [place] [address] Insurance:CARESOURCEP [id number] Seton Hospital Number: Hospital [id number]: [id number] Repository [phone] () Date:2018-04-09[address]ATTN: [place] [address]NU: 04/09/2018 Secondary NOT GIVENUNK [place] Insurance:SELF PAY [facility] Effective Repository Date:2018-04-09 04/06/2018 SHRAON E [id number] Primary SHARON E ROCKDOB: [place] [address] Insurance:CARESOURCEP [id number] Seton Hospital Number: Hospital [id number]: [id number] Repository [phone] () Date:2018-03-21[address]ATTN: [place] [address]UI: 04/06/2018 Secondary NOT GIVENUNK [place] Insurance:SELF PAY [facility]: Effective Repository Date:2018-04-06 04/02/2018 SHARON E [id number] Primary SHARON E ROCKDOB: [place] [address] Insurance:CARESOURCEP [id number] Seton Hospital Number: Hospital [id number]: [id number] Repository [phone] () Date:2018-04-02[address]ATTN: [place] [address]BL: 04/02/2018 Secondary NOT GIVENUNK [place] Insurance:SELF PAY [facility] Hospital Number: Effective Repository Date:2018-04-02 03/29/2018 SHARON E [id number] Primary SHARON E ROCKDOB: [place] [address] Insurance:CARESOURCEP [id number] Seton Hospital Number: Hospital [id number]: ([phone] [id number] Repository [phone] () Date:2018-01-18[address]ATTN: [place] [address]YN: 03/29/2018 Secondary NOT GIVENUNK [place] Insurance:SELF PAY [facility] Number: Effective Repository Date:2018-01-25 03/21/2018 SHARON [id number] Primary SHARON E ROCKDOB: [place] [address] Insurance:CARESOURCEP [id number] Seton Hospital Number: Hospital [id number]: [id number] Repository [phone] () Date:2018-03-01[address]ATTN: [place]S [place] [address]DP: 03/21/2018 Secondary NOT GIVENUNK [place] Insurance:SELF PAY [facility] Hospital Number: Effective Repository Date:2018-03-19 03/10/2018 SHARON E [id number] Primary SHARON E ROCKDOB: [place] [address] Insurance:CARESOURCEP [id number] Seton Hospital Number: Hospital [id number]: ([phone]) [id number] Repository [phone] () Date:2018-03-10[address]ATTN: [place] [address]UA: 03/10/2018 Secondary NOT GIVENUNK [place] Insurance:SELF PAY [facility] Hospital Number: Effective Repository Date:2018-03-10 03/05/2018 SHARON E [id number] Primary SHARON E ROCKDOB: [place] [address] Insurance:CARESOURCEP [id number] Seton Hospital Number: Hospital [id number]: [id number] Repository [phone] (HP) Date:2018-03-05[address]ATTN: CLAIMS [place] [address]PH: 03/05/2018 Secondary NOT GIVENUNK [place] Insurance:SELF PAY [facility] Number: Effective Repository Date:2018-03-05 03/01/2018 SHARON E [id number] Primary SHARON E ROCKDOB: [place] [address] Insurance:CARESOURCEP [id number] Seton Hospital Number: Hospital [id number]: ([phone]) [id number] Repository [phone] () Date:2018-02-12[address]ATTN: [place] [address]RR: 03/01/2018 Secondary NOT GIVENUNK [place] Insurance:SELF PAY [facility] Number: Effective Repository Date:2018-03-01 02/12/2018 SHARON E [id number] Primary SHARON E ROCKDOB: [place] [address] Insurance:CARESOURCEP [id number] Seton Hospital Number: Hospital 10178Smf: ([phone]) [id number] Repository [phone] () Date:2018-02-05[address]ATTN: [place] [address]WQ: 02/12/2018 Secondary NOT GIVENUNK [place] Insurance:SELF PAY [facility] Number: Effective Repository Date:2018-02-05 02/05/2018 SHARON E [id number] Primary SHARON E ROCKDOB: [place] [address] Insurance:CARESOURCEP [id number] Seton Hospital Number: Hospital [id number]: [phone] [id number] Repository [phone] () Date:2018-01-31[address]ATTN: [place] [address]PL: 02/05/2018 Secondary NOT GIVENUNK [place] Insurance:SELF PAY [facility] Number: Effective Repository Date:2018-02-05 01/31/2018 SHARON E [id number] Primary SHARON E ROCKDOB: [place] [address] Insurance:CARESOURCEP [id number] Seton Hospital Number: Hospital [id number]: ([phone]) [id number] Repository [phone] () Date:2018-01-26[address]ATTN: [place] [address]HP: 01/31/2018 Secondary NOT GIVENUNK [place] Insurance:SELF PAY [facility] Number: Effective Repository Date:2018-01-30 01/31/2018 SHARON E [id number] Primary SHARON E ROCKDOB: [place] [address] Insurance:CARESOURCEP [id number] Seton Hospital Number: Hospital 65581Yyk: [id number] Repository [phone] () Date:2018-01-31[address]ATTN: [place] [address]HI: 01/31/2018 Secondary NOT GIVENUNK [place] Insurance:SELF PAY [facility] Hospital Number: Effective Repository Date:2018-01-31 01/28/2018 SHARON E [id number] Primary NOT GIVENUNK [place] [address] Insurance:SELF PAY [facility] [id number]: (917) Number: Effective Repository [phone] () Date:2018-01-18 01/24/2018 SHARON E [id number] Primary SHARON E ROCKDOB: [place] [address] Insurance:CARESOURCEP [id number] Seton Hospital Number: Hospital [id number]: ([phone] [id number] Repository [phone] () Date:2017-12-25[address]ATTN: [place] [address]DK: 01/24/2018 Secondary NOT GIVENUNK [place] Insurance:SELF PAY [facility] Hospital Number: Effective Repository Date:2017-12-25 01/24/2018 SHARON E [id number] Primary SHARON E ROCKDOB: [place] [address] Insurance:CARESOURCEP [id number] Seton Hospital Number: Hospital [id number]: [phone] [id number] Repository [phone] () Date:2017-12-[address]ATTN: [place] [address]IM: 01/24/2018 Secondary NOT GIVENUNK [place] Insurance:SELF PAY [facility] Hospital Number: Effective Repository Date:2018-01-22 01/24/2018 SHARON E [id number] Primary SHARON E ROCKDOB: [place] [address] Insurance:CARESOURCEP [id number] Seton Hospital Number: Hospital [id number]: [phone] [id number] Repository [phone] () Date:2017-12-[address]ATTN: [place] [address]PV: 01/24/2018 Secondary NOT GIVENUNK [place] Insurance:SELF PAY [facility] Hospital Number: Effective Repository Date:2018-01-24 01/24/2018 SHARON E [id number] Primary SHARON E ROCKDOB: [place] [address] Insurance:CARESOURCEP [id number] Seton Hospital Number: Hospital [id number]: [id number] Repository [phone] () Date:2017-12-[address]ATTN: [place] [address]VQ: 01/24/2018 Secondary NOT GIVENUNK [place] Insurance:SELF PAY [facility] Hospital Number: Effective Repository Date:2018-01-24 01/24/2018 SHARON E [id number] Primary SHARON E ROCKDOB: [place] [address] Insurance:CARESOURCEP [id number] Seton Hospital Number: Hospital [id number]: ([phone]) [id number] Repository [phone] () Date:2017-12-[address]ATTN: [place] [address]FG: 01/24/2018 Secondary NOT GIVENUNK [place] Insurance:SELF PAY [facility] Number: Effective Repository Date:2018-01-23 01/18/2018 SHARON E [id number] Primary SHARON E ROCKDOB: [place] [address] Insurance:CARESOURCEP [id number] Seton Hospital Number: Hospital [id number]: ([phone] [id number] Repository [phone] () Date:2018-01-09[address]ATTN: [place] [address]GS: 01/18/2018 Secondary NOT GIVENUNK [place] Insurance:SELF PAY [facility] Number: Effective Repository Date:2018-01-18 01/16/2018 SHARON E [id number] Primary SHARON E ROCKDOB: [place] [address] Insurance:CARESOURCEP [id number] Seton Hospital Number: Hospital 68277Wqo: [id number] Repository [phone] () Date:2017-05-23[address]ATTN: [place] [address]GO: 01/16/2018 Secondary NOT GIVENUNK [place] Insurance:SELF PAY [facility] Number: Effective Repository Date:2018-01-16 01/05/2018 SHARON E [id number] Primary SHARON E ROCKDOB: [place] [address] Insurance:CARESOURCEP [id number] Seton Hospital Number: Hospital [id number]: ([phone]) [id number] Repository [phone] () Date:2017-05-23[address]ATTN: [place] [address]ES: 01/05/2018 Secondary NOT GIVENUNK [place] Insurance:SELF PAY [facility] Number: Effective Repository Date:2017-12-18 01/04/2018 SHARON E [id number] Primary SHARON E ROCKDOB: [place] [address] Insurance:CARESOURCEP [id number] Seton Hospital Number: Hospital [id number]: ([phone]) [id number] Repository [phone] () Date:2017-05-23[address]ATTN: [place] [address]BH: 01/04/2018 Secondary NOT GIVENUNK [place] Insurance:SELF PAY [facility] Number: Effective Repository Date:2018-01-04 01/04/2018 SHARON E [id number] Primary SHARON E ROCKDOB: [place] [address] Insurance:[facility] [id number] Seton Hospital Number: Hospital 09620Kzu: [id number] Repository [phone] () Date:2017-05-23[address]ATTN: [place] [address]XJ: 01/04/2018 Secondary NOT GIVENUNK [place] Insurance:SELF PAY [facility] Number: Effective Repository Date:2018-01-04 01/03/2018 SHARON E [id number] Primary SHARON E ROCKDOB: [place] [address] Insurance:[employer]C [id number] Seton Hospital Number: Hospital 17045Whc: [id number] Repository [phone] () Date:2017-05-23 [address]ATTN: [place] [address]YY: 01/03/2018 Secondary NOT GIVENUNK [place] Insurance:SELF PAY [facility] Hospital Number: Effective Repository Date:2018-01-03 12/29/2017 SHARON E [id number] Primary SHARON E ROCKDOB: [place] [address] Insurance:[facility] [id number] Seton Hospital Number: Hospital 38466Fpk: ([phone]) [id number] Repository [phone] () Date:2017-05-23 [address]ATTN: [place] [address]VT: 12/29/2017 Secondary NOT GIVENUNK [place] Insurance:SELF PAY [facility] Number: Effective Repository Date:2017-12-29 12/27/2017 SHARON E [id number] Primary SHARON E ROCKDOB: [place] [address] Insurance:CARESOURCEP [id number] Seton Hospital Number: Hospital [id number]: ([phone]) [id number] Repository [phone] () Date:2017-05-23[address]ATTN: [place] [address]RI: 12/27/2017 Secondary NOT GIVENUNK [place] Insurance:SELF PAY [facility] Hospital Number: Effective Repository Date:2017-12-27 12/21/2017 SHARON E [id number] Primary SHARON E ROCKDOB: [place] [address] Insurance:[facility] [id number] Seton Hospital Number: Hospital [id number]: ([phone]) [id number] Repository [phone] () Date:2017-11-23 [address]ATTN: [place] [address]RW: 12/21/2017 Secondary NOT GIVENUNK [place] Insurance:SELF PAY [facility] Hospital Number: Effective Repository Date:2017-12-21 12/20/2017 SHARON E [id number] Primary SHARON E ROCKDOB: [place] [address] Insurance:[facility] [place] [id number] Seton Hospital Number: Hospital [id number]: ([phone]) [id number] Repository [phone] () Date:2017-05-23[address]ATTN: [place] [address]EH: 12/20/2017 Secondary NOT GIVENUNK [place] Insurance:SELF PAY [facility] Hospital Number: Effective Repository Date:2017-12-20 12/19/2017 SHARON E [id number] Primary SHARON E ROCKDOB: [place] [address] Insurance:CAR[employer]P [id number] Seton Hospital Number: Hospital 42502Jvt: ([phone]) [id number] Repository [phone] () Date:2017-05-23[address]ATTN: [place] [address]CK: 12/19/2017 Secondary NOT GIVENUNK [place] Insurance:SELF PAY [facility] Number: Effective Repository Date:2017-12-19 12/15/2017 SHARON E [id number] Primary SHARON E ROCKDOB: [place] [address] Insurance:CARESOURCEP [id number] [facility]on Hospital Number: Hospital [id number]: ([phone]) [id number] Repository [phone] () Date:2017-05-23[address]ATTN: [place] [address]PL: 12/15/2017 Secondary NOT GIVENUNK [place] Insurance:SELF PAY [facility] Hospital Number: Effective Repository Date:2017-11-18 12/14/2017 SHARON E [id number] Primary SHARON E ROCKDOB: [place] [address] Insurance:[employer]P [id number] Seton Hospital Number: Hospital 40705Vfg: (394) [id number] Repository [phone] () Date:2017-12-14[address]ATTN: [place] [address]LQ: 12/14/2017 Secondary NOT GIVENUNK [place] Insurance:SELF PAY [facility] Number: Effective Repository Date:2017-12-14 12/14/2017 SHARON E [id number] Primary SHARON E ROCKDOB: [place] [address] Insurance:CARESOURCEP [id number] Seton Hospital Number: Hospital [id number]: ([phone]) [id number] Repository [phone] (HP) Date:2017-05-23 [address]ATTN: [place] [address]BB: 12/14/2017 Secondary NOT GIVENUNK [place] Insurance:SELF PAY [facility] Number: Effective Repository Date:2017-12-14 12/13/2017 SHARON E [id number] Primary SHARON E ROCKDOB: [place] [address] Insurance:CARESOURCEP [id number] Seton Hospital Number: Hospital [id number]: ([phone] [id number] Repository [phone] (HP) Date:2017-05-23 [address]N: [place] [address]FS: 12/13/2017 Secondary NOT GIVENUNK [place] Insurance:SELF PAY [facility] Hospital Number: Effective Repository Date:2017-12-13 12/07/2017 SHARON E [id number] Primary SHARON E ROCKDOB: [place] [address] Insurance:CAR[employer]P [id number] Seton Hospital Number: Hospital [id number]: ([phone]) [id number] Repository [phone] () Date:2017-05-23 [address]N: [place] [address]GK: 12/07/2017 Secondary NOT GIVENUNK [place] Insurance:SELF PAY [facility] Hospital Number: Effective Repository Date:2017-12-07 11/30/2017 SHARON E [id number] Primary SHARON E ROCKDOB: [place] [address] Insurance:CAR[employer]P [id number] Seton Hospital Number: Hospital 99922Xsb: ([phone]) [id number] Repository [phone] (HP) Date:2017-05-23 [address]ATTN: CLAIMS [place] [address]AM: 11/30/2017 Secondary NOT GIVENUNK [place] Insurance:SELF PAY [facility] Number: Effective Repository Date:2017-11-30 11/29/2017 SHARON E [id number] Primary SHARON E ROCKDOB: [place] [address] Insurance:CAR[employer]P [id number] [facility]on Hospital Number: Hospital 64124Ofr: [id number] Repository [phone] () Date:2017-05-23[address]ATTN: [place] [address]XN: 11/29/2017 Secondary NOT GIVENUNK [place] Insurance:SELF PAY [facility] Hospital Number: Effective Repository Date:2017-11-29 11/23/2017 SHARON E [id number] Primary SHARON E ROCKDOB: [place] [address] Insurance:[facility] [place] [id number] Seton Hospital Number: [facility] 56928Rzz: ([phone] [id number] Repository [phone] () Date:2017-11-13[address]ATTN: [place] [address]BP: 11/23/2017 Secondary NOT GIVENUNK [place] Insurance:SELF PAY [facility] Number: Effective Repository Date:2017-11-21 11/22/2017 SHARON E [id number] Primary SHARON E ROCKDOB: [place] [address] Insurance:[employer] [id number] Seton Hospital Number: Hospital 36935Wji: 740 [id number] Repository [phone] () Date:2017-05-23P [address]ATTN: [place] [address]OS: 11/22/2017 Secondary NOT GIVENUNK [place] Insurance:SELF PAY [facility] Number: Effective Repository Date:2017-11-22 11/13/2017 SHARON E [id number] Primary SHARON E ROCKDOB: [place] [address] Insurance:[employer] [id number] [facility]on Hospital Number: Hospital 42387Jmc: 740 [id number] Repository [phone] (HP) Date:2017-05-23 [address]ATTN: [place] [address]NZ: 11/13/2017 Secondary NOT GIVENUNK [place] Insurance:SELF PAY [facility] Hospital Number: Effective Repository Date:2017-10-18 11/08/2017 SHARON E [id number] Primary SHARON E ROCKDOB: [place] [address] Insurance:CAR[employer]P [id number] Seton Hospital Number: [facility] [id number]: [id number] Repository [phone] () Date:2017-05-23 [address]ATTN: [place] [address]QP: 11/08/2017 Secondary NOT GIVENUNK [place] Insurance:SELF PAY [facility] Hospital Number: Effective Repository Date:2017-11-08 11/06/2017 SHARON E [id number] Primary SHARON E ROCKDOB: [place] [address] Insurance:[employer]P [id number] Seton Hospital Number: Hospital [id number]: 740 [id number] Repository [phone] () Date:2017-05-23 [address]ATTN: [place] [address]BV: 11/06/2017 Secondary NOT GIVENUNK [place] Insurance:SELF PAY [facility] Hospital Number: Effective Repository Date:2017-11-06 10/26/2017 SHARON E [id number] Primary SHARON E ROCKDOB: [place] [address] Insurance:[employer]P [id number] Seton Hospital Number: Hospital [id number]: [id number] [id number] Repository [phone] () Date:2017-05-23 [address]ATTN: [place] [address]FZ: 10/26/2017 Secondary NOT GIVENUNK [place] Insurance:SELF PAY [facility] Number: Effective Repository Date:2017-10-26 10/25/2017 SHARON E [id number] Primary SHARON E ROCKDOB: [place] [address] Insurance:[employer]P [id number] Seton Hospital Number: Hospital [id number]: ([phone] [id number] Repository [phone] () Date:2017-05-23P [address]ATTN: [place] [address]MR: 10/25/2017 Secondary NOT GIVENUNK [place] Insurance:SELF PAY [facility] Hospital Number: Effective Repository Date:2017-10-25 10/19/2017 SHARON E [id number] Primary SHARON E ROCKDOB: [place] [address] Insurance:CAR[employer]P [id number] Seton Hospital Number: Hospital 52796Pcn: [id number] Repository [phone] () Date:2017-05-23 [address]ATTN: [place] [address]YV: 10/19/2017 Secondary NOT GIVENUNK [place] Insurance:SELF PAY [facility] Number: Effective Repository Date:2017-10-19 10/18/2017 SHARON E [id number] Primary SHARON E ROCKDOB: [place] [address] Insurance:[employer]P [id number] [facility]on Hospital Number: Hospital [id number]: ([phone] [id number] Repository [phone] () Date:2017-10-10P [address]ATTN: [place] [address]WK: 10/18/2017 Secondary NOT GIVENUNK [place] Insurance:SELF PAY [facility] Hospital Number: Effective Repository Date:2017-10-16 10/18/2017 SHARON E [id number] Primary SHARON E ROCKDOB: [place] [address] Insurance:CAR[employer]P [id number] Seton Hospital Number: Hospital [id number]: ([phone]) [id number] Repository [phone] () Date:2017-05-23P [address]ATTN: [place] [address]WQ: 10/18/2017 Secondary NOT GIVENUNK [place] Insurance:SELF PAY [facility] Hospital Number: Effective Repository Date:2017-10-18 10/12/2017 SHARON E [id number] Primary SHARON E ROCKDOB: [place] [address] Insurance:[facility] [place] [id number] [facility]on [facility] Number: [facility] [id number]: [id number] Repository [phone] () Date:2017-05-23 [address]ATTN: [place] [address]PD: 10/12/2017 Secondary NOT GIVENUNK [place] Insurance:SELF PAY [facility] Hospital Number: Effective Repository Date:2017-09-17 10/12/2017 SHARON E [id number] Primary SHARON E ROCKDOB: [place] Insurance:CARESOURC [id number] [facility]on [facility] Number: [facility] [id number]: [id number] Repository [phone] () Date:2017-10-10 [address]ATTN: [place] [address]ZE: 10/12/2017 Secondary NOT GIVENUNK [place] Insurance:SELF PAY [facility] Hospital Number: Effective Repository Date:2017-10-10 10/12/2017 SHARON E [id number] Primary SHARON E ROCKDOB: [place] Insurance:[facility] [id number] [facility]on [facility] Number: Hospital [id number]: [phone]) [id number] Repository [phone] () Date:2017-10-10[address] [address]VS: 10/12/2017 Secondary NOT GIVENUNK [place] Insurance:SELF PAY [facility] Hospital Number: Effective Repository Date:2017-10-12 10/09/2017 SHARON E [id number] Primary SHARON E ROCKDOB: [place] [address] Insurance:[employer] [id number] Seton Hospital Number: Hospital [id number]: [id number] Repository [phone] () Date:2017-05-23 [address]ATTN: [place] [address]HQ: 10/09/2017 Secondary NOT GIVENUNK [place] Insurance:SELF PAY [facility] Hospital Number: Effective Repository Date:2017-10-09 10/07/2017 SHARON E [id number] Primary SHARON E ROCKDOB: [place] [address] Insurance:[facility] [place] [id number] Seton Hospital Number: [facility] [id number]: ([phone]) [id number] Repository [phone] () Date:2017-10-07 [address]N: [place] [address]XP: 10/07/2017 Secondary NOT GIVENUNK [place] Insurance:SELF PAY [facility] Hospital Number: Effective Repository Date:2017-10-07 10/05/2017 SHARON E [id number] Primary SHARON E ROCKDOB: [place] [address] Insurance[facility] [id number] Seton Hospital Number: Hospital 79919Qnb: ([phone]) [id number] Repository [phone] () Date:2017-05-23 [address]ATTN: [place] [address]GR: 10/05/2017 Secondary NOT GIVENUNK [place] Insurance:SELF PAY [facility] Hospital Number: Effective Repository Date:2017-10-05 10/04/2017 SHARON E [id number] Primary SHARON E ROCKDOB: [place] [address] Insurance:[employer] [id number] Seton Hospital Number: Hospital [id number]: (116) [id number] Repository [phone] () Date:2017-05-23[address]ATTN: [place] [address]KV: 10/04/2017 Secondary NOT GIVENUNK [place] Insurance:SELF PAY [facility] Effective Repository Date:2017-10-04 09/27/2017 SHARON E [id number] Primary SHARON E ROCKDOB: [place] [address] Insurance:[employer] [id number] Seton Hospital Number: Hospital [id number]: [phone] [id number] Repository [phone] () Date:2017-09-27[address]ATTN: [place] [address]PR: 09/27/2017 Secondary NOT GIVENUNK [place] Insurance:SELF PAY [facility] Number: Effective Repository Date:2017-09-27 09/19/2017 SHARON E [id number] Primary SHARON E ROCKDOB: [place] [address] Insurance:[employer] [id number] Seton Hospital Number: Hospital 28490Qas: [id number] Repository [phone] () Date:2017-08-31[address]ATTN: [place] [address]SF: 09/19/2017 Secondary NOT GIVENUNK [place] Insurance:SELF PAY [facility] Number: Effective Repository Date:2017-08-31 09/19/2017 SHARON E [id number] Primary SHARON E ROCKDOB: [place] [address] Insurance:[employer] [id number] Seton Hospital Number: Hospital [id number]: [phone]) [id number] Repository [phone] () Date:2017-08-31 [address]ATTN: [place] [address]GB: 09/19/2017 Secondary NOT GIVENUNK [place] Insurance:SELF PAY [facility] Number: Effective Repository Date:2017-09-19 09/19/2017 SHARON E [id number] Primary SHARON E ROCKDOB: [place] [address] Insurance:[employer] [id number] Seton Hospital Number: [facility] [id number]: ([phone]) [id number] Repository [phone] () Date:2017-08-31 [address]ATTN: [place] [address]HP: 09/19/2017 Secondary NOT GIVENUNK [place] Insurance:SELF PAY [facility] Hospital Number: Effective Repository Date:2017-09-19 09/19/2017 SHARON E [id number] Primary SHARON E ROCKDOB: [place] [address] Insurance:[employer] [id number] Seton Hospital Number: Hospital [id number]: ([phone]) [id number] Repository [phone] () Date:2017-08-31 [address]ATTN: [place] [address]JQ: 09/19/2017 Secondary NOT GIVENUNK [place] Insurance:SELF PAY [facility] Hospital Number: Effective Repository Date:2017-09-19 09/19/2017 SHARON E [id number] Primary SHARON E ROCKDOB: [place] [address] Insurance:[employer] [id number] Seton Hospital Number: Hospital [id number]: ([phone] [id number] Repository [phone] () Date:2017-08-31 [address]ATTN: CLAIMS [place] [address]AH: 09/19/2017 Secondary NOT GIVENUNK [place] Insurance:SELF PAY [facility] Number: Effective Repository Date:2017-09-19 09/07/2017 SHARON E [id number] Primary SHARON E ROCKDOB: [place] [address] Insurance:[employer] [id number] Seton Hospital Number: [facility] 21434Zxs: [id number] Repository [phone] () Date:2017-05-23 [address]ATTN: [place] [address]JD: 09/07/2017 Secondary NOT GIVENUNK [place] Insurance:SELF PAY [facility] Hospital Number: Effective Repository Date:2017-08-18 08/31/2017 SHARON E [id number] Primary SHARON E ROCKDOB: [place] [address] Insurance:[facility] [place] [id number] Seton Hospital Number: Hospital [address]151Yka: [id number] Repository [phone] () Date:2017-05-23 [address]ATTN: [place] [address]LH: 08/31/2017 Secondary NOT GIVENUNK [place] Insurance:SELF PAY [facility] Number: Effective Repository Date:2017-08-31 08/30/2017 SHARON E [id number] Primary SHARON E ROCKDOB: [place] [address] Insurance:[employer] [id number] Seton Hospital Number: Hospital [id number]: [id number] Repository [phone] () Date:2017-08-29 [address]ATTN: [place] [address]PL: 08/30/2017 Secondary NOT GIVENUNK [place] Insurance:SELF PAY [facility] Number: Effective Repository Date:2017-08-29 08/22/2017 SHARON E [id number] Primary SHARON E ROCKDOB: [place] [address] Insurance:[employer] [id number] Seton Hospital Number: Hospital [id number]: ([phone] [id number] Repository [phone] (HP) Date:2017-08-22[address]ATTN: [place] [address]NP: 08/22/2017 Secondary NOT GIVENUNK [place] Insurance:SELF PAY [facility] Number: Effective Repository Date:2017-08-22 08/22/2017 SHARON E [id number] Primary SHARON E ROCKDOB: [place] [address] Insurance:[employer] [id number] Seton Hospital Number: [facility] [id number]: ([phone] [id number] Repository [phone] (HP) Date:2017-08-18P [address]ATTN: [place] [address]GW: 08/22/2017 Secondary NOT GIVENUNK [place] Insurance:SELF PAY [facility] Number: Effective Repository Date:2017-08-18 08/17/2017 SHARON E [id number] Primary SHARON E ROCKDOB: [place] [address] Insurance:[employer] [id number] [facility]on Hospital Number: [facility] [id number]: ([phone] [id number] Repository [phone] () Date:2017-05-23[address]ATTN: CLAIMS [place] [address]DT: 08/17/2017 Secondary NOT GIVENUNK [place] Insurance:SELF PAY [facility] Number: Effective Repository Date:2017-07-18 08/17/2017 SHARON E [id number] Primary SHARON E ROCKDOB: [place] [address] Insurance:[employer] [id number] Seton Hospital Number: [facility] [id number]: [id number] Repository [phone] (HP) Date:2017-05-23[address]ATTN: [place] [address]EN: 08/17/2017 Secondary NOT GIVENUNK [place] Insurance:SELF PAY [facility] Number: Effective Repository Date:2017-08-17 08/15/2017 SHARON E [id number] Primary SHARON E ROCKDOB: [place] [address] Insurance:[employer] [id number] Seton Hospital Number: Hospital [id number]: ([phone] [id number] Repository [phone] () Date:2017-05-23 [address]ATTN: [place] [address]XY: 08/15/2017 Secondary NOT GIVENUNK [place] Insurance:SELF PAY [facility] Number: Effective Repository Date:2017-08-15 08/10/2017 SHARON E [id number] Primary SHARON E ROCKDOB: [place] [address] Insurance:[employer] [id number] [facility]on [facility] Number: [facility] [id number]: ([phone]) [id number] Repository [phone] () Date:2017-05-23 [address]ATTN: [place] [address]WT: 08/10/2017 Secondary NOT GIVENUNK [place] Insurance:SELF PAY [facility] Number: Effective Repository Date:2017-08-10 08/03/2017 SHARON E [id number] Primary SHARON E ROCKDOB: [place] [address] Insurance:[employer] [id number] [facility]on [facility] Number: Hospital [id number]: ([phone]) [id number] Repository [phone] () Date:2017-05-23 [address]ATTN: [place] [address]JS: 08/03/2017 Secondary NOT GIVENUNK [place] Insurance:SELF PAY [facility] Number: Effective Repository Date:2017-08-03 08/02/2017 SHARON E [id number] Primary SHARON E ROCKDOB: [place] [address] Insurance:[employer] [id number] Seton Hospital Number: Hospital [id number]: ([phone] [id number] Repository [phone] () Date:2017-05-23 [address]ATTN: [place] [address]MG: 08/02/2017 Secondary NOT GIVENUNK [place] Insurance:SELF PAY [facility] Number: Effective Repository Date:2017-08-02 07/31/2017 SHARON E [id number] Primary SHARON E ROCKDOB: [place] [address] Insurance:[employer] [id number] Seton Hospital Number: Hospital 13689Wff: ([phone] [id number] Repository [phone] () Date:2017-05-23 [address]ATTN: [place] [address]WN: 07/31/2017 Secondary NOT GIVENUNK [place] Insurance:SELF PAY [facility] Hospital Number: Effective Repository Date:2017-07-31 07/21/2017 SHARON E [id number] Primary SHARON E ROCKDOB: [place] [address] Insurance:[employer] [id number] Seton Hospital Number: Hospital [id number]: ([phone] [id number] Repository [phone] () Date:2017-05-23 [address]ATTN: [place] [address]WQ: 07/21/2017 Secondary NOT GIVENUNK [place] Insurance:SELF PAY [facility] Hospital Number: Effective Repository Date:2017-07-21 07/20/2017 SHARON E [id number] Primary SHARON E ROCKDOB: [place] [address] Insurance:[employer] [id number] Seton Hospital Number: Hospital [id number]: ([phone]) [id number] Repository [phone] () Date:2017-05-23 [address]ATTN: [place] [address]DX: 07/20/2017 Secondary NOT GIVENUNK [place] Insurance:SELF PAY [facility] Number: Effective Repository Date:2017-07-20 07/19/2017 SHARON E [id number] Primary SHARON E ROCKDOB: [place] [address] Insurance:[employer] [id number] Seton Hospital Number: Hospital [id number]: [id number] Repository [phone] (HP) Date:2017-05-23P [address]ATTN: CLAIMS [place] [address]QK: 07/19/2017 Secondary NOT GIVENUNK [place] Insurance:SELF PAY [facility] Hospital Number: Effective Repository Date:2017-07-19 07/18/2017 SHARON E [id number] Primary SHARON E ROCKDOB: [place] [address] Insurance:[employer] [id number] Seton Hospital Number: Hospital [id number]: ([phone]) [id number] Repository [phone] (HP) Date:2017-05-23 [address]ATTN: [place] [address]WK: 07/18/2017 Secondary NOT GIVENUNK [place] Insurance:SELF PAY [facility] Hospital Number: Effective Repository Date:2017-07-18 07/17/2017 SHARON [id number] Primary SHARON E ROCKDOB: [place] [address] Insurance:[employer] [id number] Seton Hospital Number: Hospital [id number]: ([phone]) [id number] Repository [phone] (HP) Date:2017-05-23[address]ATTN: [place] [address]GA: 07/17/2017 Secondary NOT GIVENUNK [place] Insurance:SELF PAY [facility] Hospital Number: Effective Repository Date:2017-06-18 07/13/2017 SHARON E [id number] Primary SHARON E ROCKDOB: [place] [address] Insurance:[employer] [id number] [facility]on Hospital Number: Hospital [id number]: ([phone] [id number] Repository [phone] () Date:2017-05-23 [address]ATTN: [place] [address]YJ: 07/13/2017 Secondary NOT GIVENUNK [place] Insurance:SELF PAY [facility] Number: Effective Repository Date:2017-07-13 07/06/2017 SHARON E [id number] Primary SHARON E ROCKDOB: [place] [address] Insurance:[employer] [id number] Number: Hospital [address]361Jeo: ([phone]) [id number] Repository [phone] () Date:2017-05-23 [address]ATTN: [place] [address]BT: 07/06/2017 Secondary NOT GIVENUNK [place] Insurance:SELF PAY [facility] Number: Effective Repository Date:2017-07-06 07/03/2017 SHARON E [id number] Primary SHARON E ROCKDOB: [place] [address] Insurance:[employer] [id number] Seton Hospital Number: Hospital 55431Hoa: [id number] Repository [phone] () Date:2017-05-23 [address]ATTN: [place] [address]SZ: 07/03/2017 Secondary NOT GIVENUNK [place] Insurance:SELF PAY [facility] Number: Effective Repository Date:2017-07-03 06/28/2017 SHARON E [id number] Primary SHARON E ROCKDOB: [place] [address] Insurance:[employer] [id number] Number: Hospital [id number]: ([phone]) [id number] Repository [phone] (HP) Date:2017-06-28 [address]ATTN: [place] [address]VB: 06/28/2017 Secondary NOT GIVENUNK [place] Insurance:SELF PAY [facility] Number: Effective Repository Date:2017-06-28 06/28/2017 SHARON E [id number] Primary SHARON E ROCKDOB: [place] [address] Insurance:[employer] [id number] Seton Hospital Number: Hospital [id number]: [id number] Repository [phone] () Date:2017-06-28 [address]ATTN: [place] [address]MU: 06/28/2017 Secondary NOT GIVENUNK [place] Insurance:SELF PAY [facility] Number: Effective Repository Date:2017-06-28 06/23/2017 SHARON E [id number] Primary SHARON E ROCKDOB: [place] [address] Insurance:[employer] [id number] Seton Hospital Number: Hospital [id number]: [id number] Repository [phone] () Date:2017-05-23 [address]ATTN: [place] [address]QB: 06/23/2017 Secondary NOT GIVENUNK [place] Insurance:SELF PAY [facility] Number: Effective Repository Date:2017-06-23 06/21/2017 SHARON E [id number] Primary SHARON E ROCKDOB: [place] [address] Insurance:[employer] [id number] [facility]on [facility] Number: [facility] [address]655Rjd: ([phone] [id number] Repository [phone] () Date:2017-05-23 [address]ATTN: CLAIMS [place] [address]VO: 06/21/2017 Secondary NOT GIVENUNK [place] Insurance:SELF PAY [facility] Number: Effective Repository Date:2017-06-21 06/19/2017 SHARON E [id number] Primary SHARON E ROCKDOB: [place] [address] Insurance:[employer] [id number] [facility]on [facility] Number: Hospital [id number]: ([phone]) [id number] Repository [phone] () Date:2017-05-23P [address]ATTN: [place] [address]ZI: 06/19/2017 Secondary NOT GIVENUNK [place] Insurance:SELF PAY [facility] Number: Effective Repository Date:2017-06-19 06/17/2017 SHARON E [id number] Primary SHARON E ROCKDOB: [place] [address] Insurance:[employer] [id number] Number: Hospital [address]Whc: ([phone] [id number] Repository [phone] () Date:2017-05-23P [address]ATTN: [place] [address]FN: 06/17/2017 Secondary NOT GIVENUNK [place] Insurance:SELF PAY [facility] Number: Effective Repository Date:2017-06-17 06/16/2017 SHARON E [id number] Primary SHARON E ROCKDOB: [place] [address] Insurance:[employer] [id number] Number: Hospital [address]90Znn: ([phone] [id number] Repository [phone] () Date:2017-05-23P [address]ATTN: [place] [address]YA: 06/16/2017 Secondary NOT GIVENUNK [place] Insurance:SELF PAY [facility] Number: Effective Repository Date:2017-05-23 06/14/2017 SHARON E [id number] Primary SHARON E ROCKDOB: [place] [address] Insurance:[employer] [id number] Seton Hospital Number: Hospital 33753Ijd: ([phone]) [id number] Repository [phone] (HP) Date:2017-05-23P [address]ATTN: [place] [address]PR: 06/14/2017 Secondary NOT GIVENUNK [place] Insurance:SELF PAY [facility] Number: Effective Repository Date:2017-06-14 06/14/2017 SHARON E [id number] Primary SHARON E ROCKDOB: [place] [address] Insurance:[facility] [id number] Number: Hospital [address]Drf: [id number] Repository [phone] () Date:2017-05-23P [address]ATTN: [place] [address]CC: 06/14/2017 Secondary NOT GIVENUNK [place] Insurance:SELF PAY [facility] Number: Effective Repository Date:2017-06-14 06/12/2017 SHARON E [id number] Primary SHARON E ROCKDOB: [place] [address] Insurance:[facility] [place] [id number] Seton Hospital Number: Hospital [id number]: [id number] Repository [phone] () Date:2017-05-31P [address]ATTN: [place] [address]CX: 06/12/2017 Secondary NOT GIVENUNK [place] Insurance:SELF PAY [facility] Hospital Number: Effective Repository Date:2017-06-12 06/05/2017 SHARON E [id number] Primary SHARON E ROCKDOB: [place] [address] Insurance:[facility] [id number] Seton Hospital Number: Hospital [address]169Ssp: ([phone]) [id number] Repository [phone] () Date:2017-05-23 [address]ATTN: [place] [address]KT: 06/05/2017 Secondary NOT GIVENUNK [place] Insurance:SELF PAY [facility] Number: Effective Repository Date:2017-06-05 05/31/2017 SHARON E [id number] Primary SHARON E ROCKDOB: [place] [address] Insurance:[employer] [id number] Number: Hospital [address]Jsw: ([phone]) [id number] Repository [phone] () Date:2017-05-31P [address]ATTN: [place] [address]OD: 05/31/2017 Secondary NOT GIVENUNK [place] Insurance:SELF PAY [facility] Number: Effective Repository Date:2017-05-31 05/30/2017 SHARON E [id number] Primary SHARON E ROCKDOB: [place] [address] Insurance:[employer]P [id number] Number: Hospital [address]Iop: ([phone]) [id number] Repository [phone] () Date:2017-05-23P [address]ATTN: [place] [address]VX: 05/30/2017 Secondary NOT GIVENUNK [place] Insurance:SELF PAY [facility] Number: Effective Repository Date:2017-05-30 05/29/2017 Sharon E RockDOB: Primary Sharon E RockDOB: [facility] Insurance:CareSourceP [id number] System [address] [facility] Number: Repository [address] [place] [address] Effective Date: 256[address]Wmp: () 05/19/2017 SHARON E [id number] Primary SHARON E ROCKDOB: [place] [address] Insurance:CARES[employer]P [id number] [facility] Number: Hospital [id number]: (124) [id number] Repository [phone] (HP) Date:2017-05-19P [address]ATTN: [place] [address]XY: 05/19/2017 Secondary NOT GIVENUNK [place] Insurance:SELF PAY [facility] Number: Effective Repository Date:2017-05-19 05/19/2017 SHARON E [id number] Primary SHARON E ROCKDOB: [place] [address] Insurance:[employer]P [id number] Number: [facility] [address]Wwx: ([phone]) [id number] Repository [phone] (HP) Date:2017-05-19P [address]ATTN: [place] [address]SF: 05/19/2017 Secondary NOT GIVENUNK [place] Insurance:SELF PAY [facility] Number: Effective Repository Date:2017-05-19 05/19/2017 SHARON E [id number] Primary SHARON E ROCKDOB: [place] [address] Insurance:[employer]P [id number] Number: Hospital [id number]: ([phone]) [id number] Repository [phone] () Date:2017-05-19P [address]ATTN: [place] [address]RI: 05/19/2017 Secondary NOT GIVENUNK [place] Insurance:SELF PAY [facility] Number: Effective Repository Date:2017-05-19 05/19/2017 SHARON E [id number] Primary SHARON E ROCKDOB: [place] [address] Insurance:[employer]P [id number] Number: [facility] [address]Ske: ([phone]) [id number] Repository [phone] () Date:2017-05-19P [address]ATTN: [place] [address]OV: 05/19/2017 Secondary NOT GIVENUNK [place] Insurance:SELF PAY [facility] Number: Effective Repository Date:2017-05-19 05/19/2017 SHARON E [id number] Primary SHARON E ROCKDOB: [place] [address] Insurance:[employer]P [id number] Number: Hospital [address]Tfq: ([phone]) [id number] Repository [phone] () Date:2017-05-19P [address]ATTN: [place] [address]FQ: 05/19/2017 Secondary NOT GIVENUNK [place] Insurance:SELF PAY [facility] Number: Effective Repository Date:2017-05-19 05/19/2017 SHARON E [id number] Primary SHARON E ROCKDOB: [place] [address] Insurance:CARESOURCEP [id number] Number: Hospital [id number]: [id number] Repository [phone] () Date:2017-05-19[address]ATTN: [place] [address]FE: 05/19/2017 Secondary NOT GIVENUNK [place] Insurance:SELF PAY [facility] Number: Effective Repository Date:2017-05-19 05/19/2017 SHARON E [id number] Primary SHARON E ROCKDOB: [place] [address] Insurance:CARESOURCEP [id number] Number: Hospital [id number]: [phone] [id number] Repository [phone] () Date:2017-05-19[address]ATTN: [place] [address]IM: 05/19/2017 Secondary NOT GIVENUNK [place] Insurance:SELF PAY [facility] INSURANCELehigh [facility] Number: Effective Repository Date:2017-05-19 05/19/2017 SHARON E [id number] Primary SHARON E ROCKDOB: [place] [address] Insurance:CARESOURCEP [id number] Number: Hospital [id number]: [phone] [id number] Repository [phone] () Date:2017-05-11[address]ATTN: [place] [address]ON: 05/19/2017 Secondary NOT GIVENUNK [place] Insurance:SELF PAY [facility] Number: Effective Repository Date:2017-05-11 05/18/2017 SHARON E [id number] Primary SHARON E ROCKDOB: [place] [address] Insurance:CARESOURC [id number] Number: Hospital [id number]: [phone] [id number] Repository [phone] () Date:2017-05-11 [address]ATTN: [place] [address]HB: 05/18/2017 Secondary NOT GIVENUNK [place] Insurance:SELF PAY [facility]: Effective Repository Date:2017-05-11 05/17/2017 SHARON E [id number] Primary SHARON E ROCKDOB: [place] E [address] Insurance:CARESOURCEP [id number] Number: Hospital [id number]: [phone] [id number] Repository [phone] () Date:2017-05-11 [address]ATTN: [place] [address]XM: 05/17/2017 Secondary NOT GIVENUNK [place] Insurance:SELF PAY [facility]: Effective Repository Date:2017-05-11 05/16/2017 SHARON E [id number] Primary SHARON E ROCKDOB: [place] [address] Insurance:[employer]ES[employer]C [id number] Number: Hospital [id number]: [phone] [id number] Repository [phone] () Date:2017-05-11[address]ATTN: [facility]S [place] [address]XX: 05/16/2017 Secondary NOT GIVENUNK [place] Insurance:SELF PAY [facility] Number: Effective Repository Date:2017-05-11 05/15/2017 SHARON E [id number] Primary SHARON E ROCKDOB: [place] E [address] Insurance:CARESOURCEP [id number] Number: Hospital [id number]: [phone] [id number] Repository [phone] (HP) Date:2017-05-15[address]ATTN: [place] [address]GH: 05/15/2017 Secondary NOT GIVENUNK [place] Insurance:SELF PAY [facility]: Effective Repository Date:2017-05-15 05/15/2017 SHARON E [id number] Primary SHARON E ROCKDOB: [place] E [address] Insurance:CARESOURCEP [id number] Number: Hospital [id number]: [phone] [id number] Repository [phone] (HP) Date:2017-05-11[address]ATTN: [place] [address]OB: 05/15/2017 Secondary NOT GIVENUNK [place] Insurance:SELF PAY [facility] Hospital Number: Effective Repository Date:2017-05-11 05/12/2017 SHARON E [id number] Primary SHARON E ROCKDOB: [place] E [address] Insurance:CARESOURCEP [id number] Number: Hospital [id number]: [phone] [id number] Repository [phone] (HP) Date:2017-05-11P [address]ATTN: [place] [address]EM: 05/12/2017 Secondary NOT GIVENUNK [place] Insurance:SELF PAY [facility]: Effective Repository Date:2017-05-11 05/11/2017 SHARON E [id number] Primary SHARON E ROCKDOB: [place] [address] Insurance:CARESOURCEP [id number] Number: Hospital [id number]: [phone] [id number] Repository [phone] () Date:2017-05-10P [address]ATTN: [place] [address]EA: 05/11/2017 Secondary NOT GIVENUNK [place] Insurance:SELF PAY [facility]: Effective Repository Date:2017-05-10 05/02/2017 SHARON E [id number] Primary SHARON E ROCKDOB: [place] E [address] Insurance:CARESOURCEP [id number] Number: Hospital [id number]: [phone] [id number] Repository [phone] () Date:2017-04-11[address]ATTN: [place] [address]QZ: 05/02/2017 Secondary NOT GIVENUNK [place] Insurance:SELF PAY [facility]: Effective Repository Date:2017-04-11 05/02/2017 SHARON [id number] E Primary SHARON ROCKDOB: [place] [address] Insurance:CARESOURCEP [id number] Number: Hospital [id number]: [phone] [id number] Repository [phone] () Date:2017-04-11P [address]ATTN: [place] [address]GX: 05/02/2017 Secondary NOT GIVENUNK [place] Insurance:SELF PAY [facility]: Effective Repository Date:2017-05-01 05/02/2017 SHARON [id number] E Primary SHARON ROCKDOB: [place] [address] Insurance:CARESOURCEP [id number] Number: Hospital [id number]: [phone] [id number] Repository [phone] (HP) Date:2017-04-11 [address]ATTN: [place] [address]KJ: 05/02/2017 Secondary NOT GIVENUNK [place] Insurance:SELF PAY [facility] Number: Effective Repository Date:2017-05-02 05/02/2017 SHARON [id number] E Primary SHARON ROCKDOB: [place] [address] Insurance:CARESOURCEP [id number] Number: Hospital [id number]: [phone] [id number] Repository [phone] () Date:2017-04-11 [address]ATTN: [place] [address]UC: 05/02/2017 Secondary NOT GIVENUNK [place] Insurance:SELF PAY [facility]: Effective Repository Date:2017-05-02 05/02/2017 SHARON E [id number] Primary SHARON E ROCKDOB: [place] E [address] Insurance:CARES[employer]P [id number] Number: Hospital [id number]: [id number] Repository [phone] () Date:2017-04-[address]ATTN: [place] [address]EZ: 05/02/2017 Secondary NOT GIVENUNK [place] Insurance:SELF PAY [facility] Number: Effective Repository Date:2017-05-02 05/02/2017 SHARON E [id number] Primary SHARON E ROCKDOB: [place] E [address] Insurance:CARESOURCEP [id number] Number: Hospital [id number]: [phone] [id number] Repository [phone] () Date:2017-04-11 [address]ATTN: [place] [address]PE: 05/02/2017 Secondary NOT GIVENUNK [place] Insurance:SELF PAY [facility]: Effective Repository Date:2017-05-02 05/02/2017 SHARON Amalia [id number] Primary SHARON E ROCKDOB: [place] E [address] Insurance:CARES[employer]P [id number] Number: Hospital [id number]: [phone]) [id number] Repository [phone] () Date:2017-04-11P [address]ATTN: [place] [address]JC: 05/02/2017 Secondary NOT GIVENUNK [place] Insurance:SELF PAY [facility] Number: Effective Repository Date:2017-05-02 04/05/2017 SHARON Amalia [id number] Primary SHARON E ROCKDOB: [place] E [address] Insurance:CARES[employer]C [id number] Number: Hospital [id number]: [phone]) [id number] Repository [phone] () Date:2017-03-28 [address]ATTN: [place] [address]ZA: 04/05/2017 Secondary NOT GIVENUNK [place] Insurance:SELF PAY [facility] Number: Effective Repository Date:2017-04-05
== END 2018-04-09 21:27 | disposition home or self-care (01) ==
PROVIDERS: Emergency Provider Emergency Medicine; Family Provider Internal Medicine; PCP Internal Medicine
DX: S40.022A Contusion of left upper arm, initial encounter (principal); W00.0XXA Fall on same level due to ice and snow, initial encounter; Y93.9 Activity, unspecified; Y92.9 Unspecified place or not applicable; Y99.9 Unspecified external cause status; Z85.3 Personal history of malignant neoplasm of breast; Z87.891 Personal history of nicotine dependence; Z90.10 Acquired absence of unspecified breast and nipple
CPT/HCPCS: 73060; 73080; 73090; 99283

== ENCOUNTER → 2018-04-11 07:10 | Outpatient (CLI) | payer MEDICAID, SELFPAY ==
[2018-04-09 18:58] VITALS: BMI 34.9
--- NOTE | 2018-04-11 10:22 | NEURO ---
NCS and/or EMG Patient Report Ordering Doctor: Junior Ahn DATE OF SERVICE: 04/11/18 This is a bilateral upper extremity nerve conduction study and a left upper extremity EMG performed on this 48-year-old female who 2 years ago received chemotherapy and since that time she has had paresthesias in her hands and feet. She does note that her feet have improved to some extent. She also describes pain in her joints. Bilateral upper extremity sensory and motor nerve conduction studies are performed. There is mild to moderate prolongation of the median motor and sensory distal latencies with preservation of amplitudes and conduction velocities. The ulnar motor and sensory and radial sensory responses are normal. The median and ulnar F-wave latencies demonstrate mild prolongation of the left median F wave latency but they are otherwise normal. Left upper extremity needle electromyography is performed. Muscles evaluated included the first dorsal interosseous, abductor pollicis brevis, brachioradialis, biceps, triceps and deltoid muscles. All muscles demonstrated normal insertional activity with absence of pathologic spontaneous activity. Motor unit potential recruitment pattern and amplitude is normal in all muscles tested. Impression: There is evidence of very mild carpal tunnel syndrome in both wrists, somewhat worse on the left side electrophysiologically. There is no evidence of radiculopathy. 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 The patient complains of joint pains which are likely unrelated.
--- OUTSIDE RECORDS SUMMARY | 2018-06-13 01:49 | XMS RPT_ITS ---
:1970 Author Organization [place] Support Name Relationship Address Phone MARTIN PENN Unavailable [address] + [place] [address] UE Unavailable Unavailable Unavailable ROSANNA PENNN Unavailable [address] + [place] [address] UE Unavailable Unavailable Unavailable MUSTAPHA PENNLYN Unavailable [address] + [place] [address] UE Unavailable Unavailable Unavailable MUSTAPHA PENNLYN Unavailable [address] + [place] [address] UE Unavailable Unavailable Unavailable MUSTAPHA PENNLYN Unavailable [address] + [place] [address] UE Unavailable Unavailable Unavailable MUSTAPHA PENNLYN Unavailable [address] + [place] [address] UE Unavailable Unavailable Unavailable MUSTAPHA PENNLYN Unavailable [address] + [place] [address] UE Unavailable Unavailable Unavailable MUSTAPHA PENNLYN Unavailable [address] + [place] [address] UE Unavailable Unavailable Unavailable MUSTAPHA PENNLYN Unavailable [address] + [place] [address] UE Unavailable Unavailable Unavailable MUSTAPHA PENNLYN Unavailable [address] + [place] [address] UE Unavailable Unavailable Unavailable MUSTAPHA PENNLYN Unavailable [address] + [place] [address] UE Unavailable Unavailable Unavailable LINGENMYER, MARTIN Unavailable [address] + [place] [address] UE Unavailable Unavailable Unavailable LINGENMYER, MARTIN Unavailable [address] + [place] [address] UE Unavailable Unavailable Unavailable LINGENMYER, MARTIN Unavailable [address] + [place] [address] UE Unavailable Unavailable Unavailable LINGENMYER, MARTIN Unavailable [address] + [place] [address] UE Unavailable Unavailable Unavailable LINGENMYER, MARTIN Unavailable [address] + [place] [address] UE Unavailable Unavailable Unavailable LINGENMYER, MARTIN Unavailable [address] + [place] [address] UE Unavailable Unavailable Unavailable LINGENMYER, MARTIN Unavailable [address] + [place] [address] UE Unavailable Unavailable Unavailable LINGENMYER, MARTIN Unavailable [address] + [place] [address] UE Unavailable Unavailable Unavailable LINGENMYER, MARTIN Unavailable [address] + [place] [address] UE Unavailable Unavailable Unavailable LINGENMYER, MARTIN Unavailable [address] + [place] [address] UE Unavailable Unavailable Unavailable LINGENMYER, MARTIN Unavailable [address] + [place] [address] UE Unavailable Unavailable Unavailable LINGENMYER, MARTIN Unavailable [address] + [place] [address] UE Unavailable Unavailable Unavailable LINGENMYER, MARTIN Unavailable [address] + [place] [address] UE Unavailable Unavailable Unavailable LINGENMYER, MARTIN Unavailable [address] + [place] [address] UE Unavailable Unavailable Unavailable LINGENMYER, MARTIN Unavailable [address] + [place] [address] UE Unavailable Unavailable Unavailable LINGENMYER, MARTIN Unavailable [address] + [place] [address] UE Unavailable Unavailable Unavailable LINGENMYER, MARTIN Unavailable [address] + [place] [address] UE Unavailable Unavailable Unavailable LINGENMYER, MARTIN Unavailable [address] + [place] [address] UE Unavailable Unavailable Unavailable LINGENMYER, MARTIN Unavailable [address] + [place] [address] UE Unavailable Unavailable Unavailable LINGENMYER, MARTIN Unavailable [address] + [place] [address] UE Unavailable Unavailable Unavailable LINGENMYER, MARTIN Unavailable [address] + [place] [address] UE Unavailable Unavailable Unavailable LINGENMYER, MARTIN Unavailable [address] + [place] [address] UE Unavailable Unavailable Unavailable LINGENMYER, MARTIN Unavailable [address] + [place] [address] UE Unavailable Unavailable Unavailable LINGENMYER, MARTIN Unavailable [address] + [place] [address] UE Unavailable Unavailable Unavailable LINGENMYER, MARTIN Unavailable [address] + [place] [address] UE Unavailable Unavailable Unavailable LINGENMYER, MARTIN Unavailable [address] + [place] [address] UE Unavailable Unavailable Unavailable LINGENMYER, MARTIN Unavailable [address] + [place] [address] UE Unavailable Unavailable Unavailable LINGENMYER, MARTIN Unavailable [address] + [place] [address] UE Unavailable Unavailable Unavailable LINGENMYER, MARTIN Unavailable [address] + [place] [address] UE Unavailable Unavailable Unavailable LINGENMYER, MARTIN Unavailable [address] + [place] [address] UE Unavailable Unavailable Unavailable LINGENMYER, MARTIN Unavailable [address] + [place] [address] UE Unavailable Unavailable Unavailable LINGENMYER, MARTIN Unavailable [address] + [place] [address] UE Unavailable Unavailable Unavailable LINGENMYER, MARTIN Unavailable [address] + [place] [address] UE Unavailable Unavailable Unavailable LINGENMYER, MARTIN Unavailable [address] + [place] [address] UE Unavailable Unavailable Unavailable LINGENMYER, MARTIN Unavailable [address] + [place] [address] UE Unavailable Unavailable Unavailable LINGENMYER, MARTIN Unavailable [address] + [place] [address] UE Unavailable Unavailable Unavailable LINGENMYER, MARTIN Unavailable [address] + [place] [address] UE Unavailable Unavailable Unavailable LINGENMYER, MARTIN Unavailable [address] + [place] [address] UE Unavailable Unavailable Unavailable LINGENMYER, MARTIN Unavailable [address] + [place] [address] UE Unavailable Unavailable Unavailable LINGENMYER, MARTIN Unavailable [address] + [place] [address] UE Unavailable Unavailable Unavailable LINGENMYER, MARTIN Unavailable [address] + [place] [address] UE Unavailable Unavailable Unavailable LINGENMYER, MARTIN Unavailable [address] + [place] [address] UE Unavailable Unavailable Unavailable LINGENMYER, MARTIN Unavailable [address] + [place] [address] UE Unavailable Unavailable Unavailable LINGENMYER, MARTIN Unavailable [address] + [place] [address] UE Unavailable Unavailable Unavailable LINGENMYER, MARTIN Unavailable [address] + [place] [address] UE Unavailable Unavailable Unavailable LINGENMYER, MARTIN Unavailable [address] + [place] [address] UE Unavailable Unavailable Unavailable LINGENMYER, MARTIN Unavailable [address] + [place] [address] UE Unavailable Unavailable Unavailable LINGENMYER, MARTIN Unavailable [address] + [place] [address] UE Unavailable Unavailable Unavailable LINGENMYER, MARTIN Unavailable [address] + [place] [address] UE Unavailable Unavailable Unavailable LINGENMYER, MARTIN Unavailable [address] + [place] [address] UE Unavailable Unavailable Unavailable LINGENMYER, MARTIN Unavailable [address] + [place] [address] UE Unavailable Unavailable Unavailable LINGENMYER, MARTIN Unavailable [address] + [place] [address] UE Unavailable Unavailable Unavailable LINGENMYER, MARTIN Unavailable [address] + [place] [address] UE Unavailable Unavailable Unavailable LINGENMYER, MARTIN Unavailable [address] + [place] [address] UE Unavailable Unavailable Unavailable LINGENMYER, MARTIN Unavailable [address] + [place] [address] UE Unavailable Unavailable Unavailable LINGENMYER, MARTIN Unavailable [address] + [place] [address] UE Unavailable Unavailable Unavailable LINGENMYER, MARTIN Unavailable [address] + [place] [address] UE Unavailable Unavailable Unavailable LINGENMYER, MARTIN Unavailable [address] + [place] [address] UE Unavailable Unavailable Unavailable LINGENMYER, MARTIN Unavailable [address] + [place] [address] UE Unavailable Unavailable Unavailable LINGENMYER, MARTIN Unavailable [address] + [place] [address] UE Unavailable Unavailable Unavailable LINGENMYER, AMRTIN Unavailable [address] + [place] [address] UE Unavailable Unavailable Unavailable LINGENMYER, MARTIN Unavailable [address] + [place] [address] UE Unavailable Unavailable Unavailable LINGENMYER, MARTIN Unavailable [address] + [place] [address] UE Unavailable Unavailable Unavailable LINGENMYER, MARTIN Unavailable [address] + [place] [address] UE Unavailable Unavailable Unavailable LINGENMYER, MARTIN Unavailable [address] + [place] [address] UE Unavailable Unavailable Unavailable LINGENMYER, MARTIN Unavailable [address] + [place] [address] UE Unavailable Unavailable Unavailable LINGENMYER, MARTIN Unavailable [address] + [place] [address] UE Unavailable Unavailable Unavailable LINGENMYER, MARTIN Unavailable [address] + [place] [address] UE Unavailable Unavailable Unavailable LINGENMYER, MARTIN Unavailable [address] + [place] [address] UE Unavailable Unavailable Unavailable LINGENMYER, MARTIN Unavailable [address] [place] [address] UE Unavailable Unavailable Unavailable LINGENMYER, MARTIN Unavailable [address] + [place] [address] UE Unavailable Unavailable Unavailable LINGENMYER, MARTIN Unavailable [address] + [address] [place] [address] UE Unavailable Unavailable Unavailable LINGENMYER, MARTIN Unavailable [address] + [place] [address] UE Unavailable Unavailable Unavailable LINGENMYER, MARTIN Unavailable [address] + [place] [address] UE Unavailable Unavailable Unavailable JERODENAIDEER MARTIN Unavailable [address] + [place] [address] UE Unavailable Unavailable Unavailable LINGENMYER, MARTIN Unavailable [address] + [place] [address] UE Unavailable Unavailable Unavailable JERODENAIDEER MARTIN Unavailable [address] [place] [address] + [place] [address] CHATAER MARTIN Unavailable [address] + [address] [place] [address] + [place] [address] FILI MARTIN Unavailable [address] + [place] [address] UE Unavailable Unavailable Unavailable JERODENAIDEER MARTIN Unavailable [address] + [address] [place] [address] + [place] [address] FILI MARTIN Unavailable [address] + [place] [address] UE Unavailable Unavailable Unavailable JERODENMARY MARTIN Unavailable [address] + [place] [address] UE Unavailable Unavailable Unavailable JERODENAIDEER MARTIN Unavailable [address] + [address] [place] [address] + [place] [address] CHATAER MARTIN Unavailable [address] + [address] [place] [address] + [place] [address] CHATAER, MARTIN Unavailable [address] [place] [address] + [place] [address] LINGENMYER MARTIN Unavailable [address] [place] [address] + [place] [address] LINGENMYER MARTIN Unavailable [address] [place] [address] + [place] [address] JERODENMYER MARTIN Unavailable [address] [place] [address] + [place] [address] JERODENMYER MARTIN Unavailable [address] [place] [address] + [place] [address] LINGENMYER MARTIN Unavailable [address] [place] [address] + [place] [address] LINGZIMYER MARTIN Unavailable [address] + [address] [place] [address] + [place] [address] LINGENMYER MARTIN Unavailable [address] + [address] [place] [address] + [place] [address] LINGENMYER MARTIN Unavailable [address] + [address] [place] [address] + [place] [address] LINGENMYER, MARTIN Unavailable [address] + [address] [place] [address] + [place] [address] LINGENMYER, MARTIN Unavailable [address] + [address] [place] [address] + [place] [address] LINGENMYER, MARTIN Unavailable [address] + [address] [place] [address] + [place] [address] LINGENMYER, MARTIN Unavailable [address] + [address] [place] [address] + [place] [address] LINGENMYER, MARTIN Unavailable [address] + [address] [place] [address] + [place] [address] LINGENMYER, MARTIN Unavailable [address] + [address] [place] [address] + [place] [address] LINGENMYER, MARTIN Unavailable [address] + [address] [place] [address] + [place] [address] LINGENMYER, MARTIN Unavailable [address] + [address] [place] [address] + [place] [address] LINGENMYER, MARTIN Unavailable [address] + [address] [place] [address] + [place] [address] LINGENMYER MARTIN Unavailable [address] + [address] [place] [address] + [place] [address] LINGENMYER, MARTIN Unavailable [address] + [address] [place] [address] + [place] [address] LINGENMYER, MARTIN Unavailable [address] + [address] [place] [address] + [place] [address] LINGENMYER, MARTIN Unavailable [address] + [address] [place] [address] + [place] [address] LINGENMYER MARTIN Unavailable [address] + [address] [place] [address] + [place] [address] Care Team Providers Name Role Phone Josué Price Attending Unavailable PROVIDER, UNKNOWN Referring Unavailable MASCI, IRON Ramachandran Attending Unavailable MASCI, IRON Ramachandran Referring Unavailable MASCI, IRON Ramachandran Attending Unavailable MASCI, IRON Ramachandran Referring Unavailable MASCI, IRON Ramachandran Referring Unavailable MASCI, IRON Ramachandran Referring Unavailable MASCI, IRON Ramachandran Referring Unavailable JOSUÉ PRICE Attending Unavailable JOSUÉ PRICE Referring Unavailable OLDER, GEORGIE ([employer]LE [employer] SQUEAK REPAIRER) Attending Unavailable OLDER, GEORGIE ([employer] SQUEAK REPAIRER) Referring Unavailable OLDER, GEORGIE (RATTLE LEAK [employer] SQUEAK REPAIRER) Referring Unavailable MASCI, IRON A Attending Unavailable MASCI, IRON A Referring Unavailable MASCI, IRON A Referring Unavailable MASCI, IRON Ramachandran Attending Unavailable MASCI, IRON Ramachandran Referring Unavailable Junior Whitman Attending Unavailable Alessandro [...] Ghasem Consulting Unavailable Junior Whitman Admitting Unavailable SlabJnuior curry Attending Unavailable Price, Josué Primary Care [...] Care Unavailable Slaby, Junior Consulting Unavailable ParekhButch SOCIAL SERVICES ASSISTANT-C Attending Unavailable Price, Josué Primary Care Unavailable Slaby, Junior Consulting Unavailable Slaby, Junior Attending Unavailable Price, Josué Primary Care Unavailable Alessandro Martinez Attending Unavailable Alessandro Martinez Referring Unavailable Price, Josué Primary Care Unavailable Romeo Jimenes Attending Unavailable Parekh, Butch SOCIAL SERVICES ASSISTANT-C Attending Unavailable Price, Josué Primary Care Unavailable Slaby, Junior Consulting Unavailable Slaby, Junior Attending Unavailable Price, Josué Primary Care Unavailable Parekh, Butch SOCIAL SERVICES ASSISTANT-C Attending Unavailable Price, Josué Primary Care Unavailable Slaby, Junior Consulting Unavailable Parekh, Butch SOCIAL SERVICES ASSISTANT-C Attending Unavailable Price, Josué Primary Care Unavailable Slaby, Junior Consulting Unavailable Parekh, Butch SOCIAL SERVICES ASSISTANT-C Attending Unavailable Slaby, Junior Referring Unavailable Parekh, Butch SOCIAL SERVICES ASSISTANT-C Attending Unavailable Parekh, Butch SOCIAL SERVICES ASSISTANT-C Attending Unavailable Price, Josué Primary Care Unavailable Slaby, Junior Consulting Unavailable Cebualyce, Josafat Attending Unavailable Romeo Jimenes Referring Unavailable Parekh, Butch SOCIAL SERVICES ASSISTANT-C Attending Unavailable Price, Josué Primary Care Unavailable Slaby, Junior Consulting Unavailable Parekh, Butch SOCIAL SERVICES ASSISTANT-C Attending Unavailable Price, Josué Primary Care Unavailable Slaby, Junior Consulting Unavailable Price, Josué Primary Care Unavailable Deborah Puckett SOCIAL SERVICES ASSISTANT-C Attending Unavailable Slaby, Junior Attending Unavailable Slaby, Junior Referring Unavailable Price, Josué Primary Care Unavailable Slaby, Junior Attending Unavailable Slaby, Junior Referring Unavailable Price, Josué Primary Care Unavailable Slaby, Junior Attending Unavailable Price, Josué Referring Unavailable Price, Josué Primary Care Unavailable Parekh, Butch SOCIAL SERVICES ASSISTANT-C Attending Unavailable Price, Josué Primary Care Unavailable [...] Unavailable Slaby, Junior Consulting Unavailable Parekh, Butch SOCIAL SERVICES ASSISTANT-C Attending Unavailable Price, Josué Primary Care Unavailable [...] Unavailable Slaby, Junior Consulting Unavailable Older, Georgie RATTLE LEAK [employer] SQUEAK REPAIRER Attending Unavailable Older, Georgie RATTLE LEAK AND SQUEAK REPAIRER Referring Unavailable Price, Josué Primary Care Unavailable Slaby, Junior Admitting Unavailable Slaby, Junior Attending Unavailable Slaby, Junior Referring Unavailable Price, Josué Primary Care Unavailable Slaby, Junior Consulting Unavailable Slaby, Junior Attending Unavailable Price, Josué Primary Care Unavailable Slaby, Junior Attending Unavailable Price, Josué Referring Unavailable Price, Josué Primary Care Unavailable Butch Parekh SOCIAL SERVICES ASSISTANT-C Attending Unavailable Price, Josué Primary Care Unavailable Slaby, Junior Consulting Unavailable Butch Parekh SOCIAL SERVICES ASSISTANT-C Attending Unavailable Price, Josué Primary Care Unavailable Slaby, Junior Consulting Unavailable Larry Govea Attending Unavailable Slaby, Junior Attending Unavailable Price, Josué Primary Care Unavailable Slaby, Junior Attending Unavailable Price, Josué Referring Unavailable Price, Josué Primary Care Unavailable Butch Parekh SOCIAL SERVICES ASSISTANT-C Attending Unavailable Price, Josué Primary Care Unavailable [...] Unavailable Slaby, Junior Consulting Unavailable Butch Parekh SOCIAL SERVICES ASSISTANT-C Attending Unavailable Price, Josué Primary Care Unavailable Slaby, Junior Consulting Unavailable Haas, Kierra Attending Unavailable Price, Josué Primary Care Unavailable Slaby, Junior Consulting Unavailable Butch Parekh SOCIAL SERVICES ASSISTANT-C Attending Unavailable Price, Josué Primary Care Unavailable Slaby, Junior Consulting Unavailable Price, Josué Primary Care Unavailable Tony Ramirez Attending Unavailable Slaby, Junior Attending Unavailable Price, Josué Primary Care Unavailable Della Dlae Attending Unavailable Price, Josué Primary Care Unavailable [...] Referring Unavailable Haas, Kierra Attending Unavailable Haas, Kirera Referring Unavailable Slaby, Junior Attending Unavailable Price, [...] Referring Unavailable KusumisIron randall Attending Unavailable Slaby, Junior Referring Unavailable Slaby, Junior Attending Unavailable [place], Efewongbe Referring Unavailable Slaby, Junior Attending Unavailable [place], Efewongbe Referring Unavailable Slaby, Junior Attending Unavailable Price, Josué Referring Unavailable Price, Josué Primary Care Unavailable PROBLEMS PROBLEMS DATE TYPE CONDITION / CODE ATTENDING STATUS SOURCE 04/12/2018 Unknown M79.632 - Pain in [place], Active [place] left forearm / [facility] M79.632(ICD-10) Hospital Repository 04/12/2018 Unknown G89.29 - Other [place], Active [place] chronic pain / [facility] G89.29(ICD-10) Hospital Repository 04/06/2018 Unknown 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 Hospital / Z90.13(ICD-10) Repository 04/06/2018 Unknown C50.919 - Malignant Junior Whitman Active [place] neoplasm of Community unspecified site of Hospital unspecified 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 / C50.919(ICD-10) 03/29/2018 Unknown E07.9 - Disorder of [place], Active [place] thyroid, unspecified [facility] / E07.9(ICD-10) Hospital Repository 03/29/2018 Unknown G62.9 - [place], Active [place] Polyneuropathy, [facility] unspecified / Hospital G62.9(ICD-10) Repository 03/21/2018 Unknown C50.911 - Malignant Junior Whitman Active [place]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 Repository / C50.911(ICD-10) 03/21/2018 Unknown N65.1 - Junior Whitman Active [place] Disproportion of Community reconstructed breast Hospital / N65.1(ICD-10) Repository 03/21/2018 Unknown 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.0 - Deformity of Junior Whitman Active [place] reconstructed breast Community / N65.0(ICD-10) Hospital Repository 03/21/2018 Unknown T66.XXXS - Radiation Junior Whitman Active [place] sickness, Community unspecified, [facility] / T66.XXXS(ICD-10) Repository 03/21/2018 Unknown L59.8 - Other Junior Whitman Active [place] specified disorders Community of the skin and Hospital subcutaneous tissue Repository related to radiation / L59.8(ICD-10) 03/01/2018 Unknown 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 / Community F40.298(ICD-10) Hospital Repository 01/28/2018 Unknown G89.18 - Other acute Junior Whitman Active [place] postprocedural pain Community / G89.18(ICD-10) Hospital Repository 01/18/2018 Unknown Z00.00 - Encounter Michelle, Active [place] for general adult [facility] without abnormal Repository findings / Z00.00(ICD-10) 02/02/2018 Unknown Z01.810 - Encounter [place], Active [place] for preprocedural [facility] examination / Repository Z01.810(ICD-10) 01/17/2018 Unknown K22.2 - Esophageal Ungur, Remus Active [place] obstruction / Community K22.2(ICD-10) Hospital Repository 10/31/2017 Active Anemia, unspecified NA Active [facility] / D64.9(ICD-10) Clinic Main [place] Repository 10/10/2017 Active Tachycardia, NA Active [facility] unspecified / Clinic Main R00.0(ICD-10) [place] Repository 10/13/2017 Unknown T86.828 - Other Junior Whitman Active [place] complications of [facility] skin graft Hospital (allograft) Repository (autograft) / T86.828(ICD-10) 09/14/2017 Unknown L76.34 - Junior Whitman Active [place] Postprocedural Community seroma of skin and Hospital subcutaneous tissue Repository following other procedure / L76.34(ICD-10) 10/08/2017 Unknown L59.9 - Disorder of Junior Whitman Active [place] the skin and [facility] subcutaneous tissue Hospital related to Repository radiation, unspecified / L59.9(ICD-10) 08/08/2017 Active Unknown / NA Active [facility] UNK(Unknown) Clinic Main [place] Repository 07/31/2017 Active Malignant neoplasm NA Active [facility] of lower-outer Clinic Main quadrant of right [place] female breast / Repository C50.511(ICD-10) 07/31/2017 Active Estrogen receptor NA Active [facility] negative status Clinic Main (ER-) / [place] Z17.1(ICD-10) Repository 07/31/2017 Active Other ascites / NA Active [facility] R18.8(ICD-10) Clinic Main [place] Repository 07/31/2017 Active Abdominal distension NA Active [facility] (gaseous) / Clinic Main R14.0(ICD-10) [place] Repository 08/07/2017 Unknown M79.89 - Other Josafat Partida Active [place] specified soft Community tissue disorders / Hospital M79.89(ICD-10) Repository 10/08/2017 Unknown 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 Hospital / T86.821(ICD-10) Repository 10/08/2017 Unknown Z45.2 - Encounter Junior Whitman for adjustment and Community management of Hospital vascular access Repository device / Z45.2(ICD-10) 05/29/2017 Admitting Unspecified open [facility], Active [facility] Diagnosis wound of right Josué System breast, [...] 04/12/2018 Status: F Source: [place] 3:58 PM [facility] REPOSITORY [facility] Imaging Services [address] [place] [address] [place] [address] Forearm 2 Views MR#: [id number] Acct: [id number] Name: SHARON BARRAGAN Rep #: [id number] : 1970 F 48 From: Roger Haywood DO PCP: Alessandro Martinez MD Status: REG CLI Study: Forearm 2 Views Date of Exam: 04/12/18 Exam# [id number] Ordering Dr: Alessandro Martinez MD STUDY: X-RAY [...] Roger Haywood DO at 16:27 EST Tel [phone], Service support , CC: Alessandro Martinez MD Receiving Distribution Station Operator: Signed PLASTIC SURGERY Observed: 04/12/2018 Status: F Source: [place] VISIT REPORT 9:34 AM [facility] [place] [facility]ive Surgery [address] [place] [address] OFFICE VISIT Date of Service: 04/06/18 MR#: [id number] Acct: [id number] Name: SHARON BARRAAGN Rep #: [id number] : 1970 Provider: Junior Whitman MD Age/Sex: 48/F Location: [facility] Status: Signed Intake Vital Signs04/06/18 Body Mass Index (BMI) 36.3 04/06/18 Blood Pressure 114/78 01/18/19 Blood Pressure Location Lt brachial 04/06/18 Blood Pressure Position Sitting 04/06/18 Respiratory Rate 16 Intake Visit Reasons: post op surgery 01/23/18 Pillow Filler Required: No Accompanied by: Mother Is patient in pain?: No Allergies cat dander Allergy (Severe, Verified 04/09/18 19:00) Lips AND throat swole FIBERGLASS Allergy (Severe, Uncoded 04/09/18 19:00) SEVERE ITCHING AND RASH POULTRY Allergy (Uncoded 04/09/18 19:00) Anaphylaxis Medications traZODone [Desyrel] 50 mg PO QHS 09/12/17 [History Confirmed 04/09/18] Fluticasone 0.05% [Flonase Nasal Francitas] 1 spray NASAL DAILY 01/16/18 [History Confirmed [...] AND/OR EMG Observed: 04/11/2018 Status: F Source: [place] PATIENT 11:56 AM [facility] [place] [facility] Pulmonary Services/Neurology [address] [place] [address] MR#: [id number] Acct: [id number] Name: SHARON BARRAGAN Rep #: [id number] : 1970 48 From: Lobo Haynes MD [...] Dictated: 04/11/18 1022 Date Transcribed: 04/11/18 1022 Receiving Distribution Station Operator: NF Signed EMERGENCY DEPARTMENT Observed: 04/09/2018 Status: F Source: [place] SUMMARY 10:12 PM [facility] [place] [facility] Medical Records Department [address] [place] [address] Emergency Department Summary 04/09/18 1920 MR#: [id number] Acct: [id number] Name: SHARON BARRAGAN Rep #: [id number] : 1970 48 From: Marie Bush MD [...] arm contusion This note was generated with Vigilistics dictation software. It may contain incorrect words, [...] problems, contact your Primary Care Provider. Call [facility] ([phone]) or report to the closest Emergency Room. Call 911 if necessary. 04/09/182211 <Electronically signed by Marie Bush MD> Date Marie Bush MD Cosigner Signature (If Indicated): Date CC: Alessandro Martinez MD DISCHARGE INSTRUCTION Observed: 04/09/2018 Status: F Source: [place] 9:02 PM [facility] Medical Records Department [address] [place] [address] Discharge Instruction 04/09/182100 MR#: [id number] Acct: [id number] Name: SHARON BARRAGAN Rep #: [id number] : 1970 48 From: Marie Bush MD [...] your Primary Care Provider. Call [facility] ([phone]) or report to the closest Emergency Room. Call 911 if necessary. 04/09/182101 <Electronically signed by Marie Bush MD> Date Marie Bush MD Cosigner Signature (If Indicated): Date CC: Alessandro Martinez MD ELBOW MIN 3 VIEWS Observed: 04/09/2018 Status: F Source: [place] 8:18 PM [facility] [facility] Imaging Services [address] [place] [address] Elbow min 3 Views MR#: [id number] Acct: [id number] Name: SHARON BARRAGAN Rep #: [id number] : 1970 F 48 From: Romeo Henson MD PCP: Alessandro Martinez MD Status: REG ER Study: Elbow min 3 Views Date of Exam: 04/09/18 Exam# [id number] Ordering Dr: Marie Bush MD STUDY: X-RAY [...] CC: Alessandro Martinez MD; Marie Bush MD Receiving Distribution Station Operator: Signed FOREARM 2 VIEWS Observed: 04/09/2018 Status: F Source: [place] 7:12 PM [facility] [facility] Imaging Services [address] [place] [address] Forearm 2 Views MR#: [id number] Acct: [id number] Name: SHARON BARRAGAN Rep #: [id number] : 1970 F 48 From: Hamlet Wolfe DO PCP: Alessandro Martinez MD Status: REG ER Study: Forearm 2 Views Date of Exam: 04/09/18 Exam# [id number] Ordering Dr: Marie Bush MD STUDY: X-RAY [...] CC: Alessandro Martinez MD; Marie Bush MD Receiving Distribution Station Operator: Signed HUMERUS MIN 2 VIEWS Observed: 04/09/2018 Status: F Source: [place] 7:12 PM [facility] REPOSITORY [facility] Imaging Services [address] [place] [address] Humerus min 2 Views MR#: [id number] Acct: [id number] Name: SHARON BARRAGAN Rep #: [id number] : 1970 F 48 From: Hamlet Wolfe DO PCP: Alessandro Martinez MD Status: REG ER Study: Humerus min 2 Views Date of Exam: 04/09/18 Exam# [id number] Ordering Dr: Marie Bush MD STUDY: X-RAY [...] CC: Alessandro Martinez MD; Marie Bush MD Receiving Distribution Station Operator: Signed THYROID STIM HORMONE Collected: 04/02/2018 Status: F Source: [place] (TSH) 8:54 AM [facility] TYPE CODE TESTS RESULT OUT OF RANGE REFERENCE UNITS LAB L501.9520 0.358-3.74 uIU/mL Normal TSH 1.28 Performed By: #### L501.9520, L506.0400 #### [facility] [address] [place], [place], [address] T4 FREE DIRECT Collected: 04/02/2018 Status: F Source: [place] 8:54 AM [facility] [facility] TYPE CODE TESTS RESULT OUT OF RANGE REFERENCE UNITS LAB L506.0400 0.76-1.46 ng/dL Normal T4 FREE 0.81 DIRECT Performed By: #### L501.9520, L506.0400 #### [facility] [address] [place], [place], [address] INTERNAL MEDICINE Observed: 03/30/2018 Status: F Source: [place] OFFICE VISIT 1:45 PM [facility] [address] [place] [address] OFFICE VISIT Date of Service: 03/29/18 MR#: [id number] Acct: [id number] Name: SHARON BARRAGAN Rep #: [id number] : 1970 Provider: Alessandro Martinez MD Age/Sex: 48/F Location: [facility] Status: Signed Intake Vital Signs03/29/18 [...] [History Confirmed 03/10/18] Fluticasone 0.05% [Flonase Nasal Francitas] 1 spray NASAL DAILY 01/16/18 [History Confirmed [...] acute distress Orientation: alert, awake, oriented x3 [facility] Head: atraumatic, normocephalic, normal to [...] Will follow. This note was generated with Ed4Uation software. It may contain incorrect words, spelling, [...] PLASTIC SURGERY Observed: 03/21/2018 Status: F Source: [place] VISIT REPORT 10:38 PM [facility] [place] [facility] Plastic AND Reconstructive Surgery [address] [address] OFFICE VISIT Date of Service: 03/21/18 MR#: [id number] Acct: [id number] Name: SHARON BARRAGAN Rep #: [id number] : 1970 Provider: Junior Whitman MD Age/Sex: 48/F Location: [facility] Status: Signed Intake Intake Visit Reasons: postop surgery 01/23/18 Allergies cat dander Allergy (Severe, Verified 03/10/18 11:06) Lips AND throat swole FIBERGLASS Allergy (Severe, Uncoded 03/10/18 11:06) SEVERE ITCHING AND RASH POULTRY Allergy (Uncoded 03/10/18 11:06) Anaphylaxis Medications traZODone [Desyrel] 50 mg PO QHS 09/12/17 [History Confirmed 03/10/18] Fluticasone 0.05% [Flonase Nasal Francitas] 1 spray NASAL DAILY 01/16/18 [History Confirmed [...] sterile saline into the right breast tissue safety fire boss without difficulty. I injected 250 ml for a total of 700 ml saline in a 550 ml safety fire boss. She tolerated the procedure well. Patient will [...] DUPLEX LOWER Observed: 03/10/2018 Status: F Source: [place] EXTREMITY 6:17 PM [facility] [place] [facility] Cardiovascular Services [facility] [place] [address] Venous Duplex US, Unilateral 03/10/18 1335 MR#: [id number] Acct: [id number] Name: SHARON BARRAGAN Rep #: [id number] : 1970 48 From: Jovanni Rothman MD [...] Date Dictated: 03/10/18 1335 Date Transcribed: 03/10/181815 Receiving Distribution Station Operator: Signed DISCHARGE INSTRUCTION Observed: 03/10/2018 Status: F Source: [place] 2:03 PM [facility] [place] [facility] Medical Records Department [address] [place] [address] Discharge Instruction 03/10/18 1401 MR#: [id number] Acct: [id number] Name: SHARON BARRAGAN Rep #: [id number] : 1970 48 From: Tony Ramirez DO [...] your Primary Care Provider. Call [facility] ([phone]) or report to the closest Emergency Room. Call 911 if necessary. 03/10/18 1403 <Electronically signed by Tony Ramirez DO> Date Tony Ramirez DO Cosigner Signature (If Indicated): Date CC: Alessandro Martinez MD EMERGENCY DEPARTMENT Observed: 03/10/2018 Status: F Source: [place] SUMMARY 2:01 PM [facility] [place] [facility] Medical Records Department [address] [place] [address] Emergency Department Summary 03/10/18 1359 MR#: [id number] Acct: [id number] Name: SHARON BARRAGAN Rep #: [id number] : 1970 48 From: Tony Ramirez DO [...] Law's cyst] This note was generated with Ed4Uation software. It may contain incorrect words, spelling, [...] your Primary Care Provider. Call [facility] ([phone]) or report to the closest Emergency Room. Call 911 if necessary. 03/10/18 1401 <Electronically signed by Tony Ramirez DO> Date Tony Ramirez DO Cosigner Signature (If Indicated): Date CC: Alessandro Martinez MD KNEE 3 VIEWS Observed: 03/10/2018 Status: F Source: [place] 11:40 AM [facility] [place] [facility] Imaging Services [address] [place] [address] Knee 3 Views MR#: [id number] Acct: [id number] Name: SHARON BARRAGAN Rep #: [id number] : 1970 F 48 From: Hamlet Wolfe DO PCP: Alessandro Martinez MD Status: PRE ER Study: Knee 3 Views Date of Exam: 03/10/18 Exam# [id number] Ordering Dr: Tony Ramirez DO STUDY: X-RAY [...] CC: Alessandro Martinez MD; Tony Ramirez DO Receiving Distribution Station Operator: Signed PLASTIC SURGERY Observed: 02/16/2018 Status: F Source: [place] VISIT REPORT 11:48 AM [facility] [place] [facility] [place] [facility] [address] [place] [address] OFFICE VISIT Date of Service: 02/12/18 MR#: [id number] Acct: [id number] Name: SHARON BARRAGAN Rep #: [id number] : 1970 Provider: Junior Whitman MD Age/Sex: 47/F Location: [facility] Status: Signed Intake Vital Signs02/12/18 Body Mass Index (BMI) 33.4 02/12/18 Blood Pressure 140/89 H 02/12/18 Blood Pressure Location Lt radial 02/12/18 Blood Pressure Position Sitting 02/12/18 Respiratory Rate 14 Intake Visit Reasons: post op surgery 01/23/18 Pillow Filler Required: No Accompanied by: Mother Is patient [...] [History Confirmed 01/23/18] Fluticasone 0.05% [Flonase Nasal Francitas] 1 spray NASAL DAILY 01/16/18 [History Confirmed [...] 250 ml saline in each 550 ml safety fire boss bilaterally. She tolerated the procedure well. Patient [...] PLASTIC SURGERY Observed: 02/13/2018 Status: F Source: [place] VISIT REPORT 9:17 AM [facility] [place] [facility] [place] [facility] [address] [place] [address] OFFICE VISIT Date of Service: 02/05/18 MR#: [id number] Acct: [id number] Name: SHARON BARRAGAN Rep #: [id number] : 1970 Provider: Junior Whitman MD Age/Sex: 47/F Location: [facility] Status: Signed Intake Vital Signs02/05/18 Body Mass Index (BMI) 33.4 02/05/18 Respiratory Rate 18 Intake Visit Reasons: post op surgery 01/23/18 Pillow Filler Required: No Accompanied by: Mother Is patient [...] [History Confirmed 01/23/18] Fluticasone 0.05% [Flonase Nasal Francitas] 1 spray NASAL DAILY 01/16/18 [History Confirmed [...] PLASTIC SURGERY Observed: 02/06/2018 Status: F Source: [place] VISIT REPORT 9:10 AM [facility] [place] [facility] [place] [facility] [address] [place] [address] OFFICE VISIT Date of Service: 01/31/18 MR#: [id number] Acct: [id number] Name: SHARON BARRAGAN Rep #: [id number] : 1970 Provider: Junior Whitman MD Age/Sex: 47/F Location: [facility] Status: Signed Intake Vital Signs01/31/18 Body Mass Index (BMI) 33.4 01/31/18 Respiratory Rate 18 01/31/18 Pulse Rate 113 H Intake Visit Reasons: post op surgery 01/23/18 Pillow Filler Required: No Accompanied by: Significant Other Is [...] [History Confirmed 01/23/18] Fluticasone 0.05% [Flonase Nasal Francitas] 1 spray NASAL DAILY 01/16/18 [History Confirmed [...] Junior Whitman MD 02/06/18 0910<Electronically signed by Della Dale NP-C> Cosigner Signature: Date (if applicable) Della DaleC CC: BASIC METABOLIC Collected: 01/31/2018 Status: F Source: [place] PROFILE ([facility]) 12:14 PM [facility] [place] [facility] Order Comment: Send Results To: dr whitman fax [phone] Reason for Laboratory Test taking lasix medication [...] GAP 13 Performed By: #### L500.2500 #### [facility] [address] [place], [address] CNOVSP Observed: 01/31/2018 Status: COMPLETED Source: [place] 11:30 AM [facility] REPOSITORY Visit (SP) Office (HEMRICHARD) SHARON BARRAGAN ([id number]) 1970 F Date Time Provider Department 01/31/18 [...] demonstrated fibroadenoma. Negative for both ER and ND. HER-2 was interpreted as 2+, granular. Subsequent [...] No jaundice or rash. No petechiae. NEUROLOGIC: baggage and mail agent II-XII are grossly intact. No focal motor weakness. MUSCULOSKELETAL: No muscle wasting or tenderness. ASSESSMENT/PLAN: (C50.511) Breast cancer of lower-outer quadrant of right female breast (HCC) (primary encounter diagnosis) Assessment: -pT1c (1.5 cm; grade 3; no ALI) pN0(sln) MX ER/ND negative, HER-2 nonamplified invasive ductal carcinoma the right breast. -Genetic testing negative. -No concerning symptoms or exam findings currently to suggest recurrence of disease. Plan: -OV in about 3 months. Iron Nguyen DO Referring Provider: IRON NGUYEN [[id number]] Allergies As of Date: 01/31/2018 Noted Allergy Reaction HAYFEVER (HOMEOPATHIC PRODUCTS) 03/07/2006 poultry [Other] 03/07/2006 Comments: Babb, chicken Date Reviewed: 01/31/2018 Reviewed by: She Wright (Tailings Worker) ESTELLE Basilio - Fully Assessed Reason for [...] [F43.9] INVALID FOR* History of Clostridium difficile [BPQ9051] INVALID FOR*02/20/2017 More... Atherosclerosis of aorta (HCC) [...] 01/31/18 PROGRESS Observed: 01/31/2018 Status: COMPLETED Source: [place] 11:23 AM [facility] REPOSITORY [facility] ID: [id number] Author: Iron Nguyen Service: (none) Author Type: [...] demonstrated fibroadenoma. Negative for both ER and ND. HER-2 was interpreted as 2+, granular. Subsequent [...] No jaundice or rash. No petechiae. NEUROLOGIC: baggage and mail agent II-XII are grossly intact. No focal motor weakness. MUSCULOSKELETAL: No muscle wasting or tenderness. ASSESSMENT/PLAN: (C50.511) Breast cancer of lower-outer quadrant of right female breast (HCC) (primary encounter diagnosis) Assessment: -pT1c (1.5 cm; grade 3; no ALI) pN0(sln) MX ER/ND negative, HER-2 nonamplified invasive ductal carcinoma the right breast. -Genetic testing negative. -No concerning symptoms or exam findings currently to suggest recurrence of disease. Plan: -OV in about 3 months. Iron Nguyen DO OPERATIVE REPORT Observed: 01/28/2018 Status: F Source: [place] 10:53 PM [facility] [place] Medical Records Department [address] [place] [address] Operative Report 01/23/18 1808 MR#: [id number] Acct: [id number] Name: SHARON BARRAGAN Rep #: [id number] : 1970 47 From: Junior Whitman MD PCP: Josué Price MD Status: DIS ANNIE Y Location: [place] [address] Report of Operation Date of Procedure: 01/23/18 [...] Urine Output - 600 ml. I used Humphrey CPX-4 with Suture Tabs, Tall Height, Breast Tissue Fat Purification Worker, Textured Integral Dome, (550 ml on the right). Reference Number - [id number]. Lot Number - [id number]. Serial Number - [id number]. I used Humphrey CPX-4 with Suture Tabs, Tall Height, Breast Tissue Fat Purification Worker, Textured Integral Dome, (550 ml on the left). Reference Number - [id number]. Lot Number - [id number]. Serial Number - [id number]. I used FlexHD acellular dermal matrix graft, Pliable Shaped, Perforated, Large, (13 x 22 cm used on both breasts). Item Number - [id number]. Serial Number - [id number]. Expiration - January 06, 2020. I used Geri absorbable hemostat, (I used 3 vials, one in the left breast and 2 in the right breast). Reference Number - [id number]. Lot Number - [id number]. Expiration - September 14, 2022. front end developer javascript html css: Leigh Ann Brush. Type of Anesthesia:: General [...] to Microbiology for culture. I placed a Humphrey CPX-4 tissue safety fire boss into the breast pocket. I used a 550 ml safety fire boss. I first removed the air from the safety fire boss. I injected 30 ml of saline. I squeezed the safety fire boss to look for any defects with the safety fire boss and found none. Most of the saline was then removed from the safety fire boss. After placing the safety fire boss into the pocket, I secured the suture tabs to the chest wall with 3-0 Vicryl suture. I secured two of the suture tabs. I then placed a piece of FlexHD acellular dermal matrix graft laterally to keep the safety fire boss from lateral migration. I secured the graft to the edge of the latissimus muscle with 3-0 Vicryl figure of eight interrupted sutures. I secured the graft to the chest wall with 3-0 Vicryl figure of eight interrupted sutures. I used a malleable over the safety fire boss to protect the safety fire boss during the suture closure. I then closed [...] seroma formation. I then placed the same Humphrey CPX-4 tissue safety fire boss into the breast pocket. I used a 550 ml safety fire boss. I first removed the air from the safety fire boss. I injected 30 ml of saline. I squeezed the safety fire boss to look for any defects with the safety fire boss and found none. Most of the saline was then removed from the safety fire boss. After placing the safety fire boss into the pocket, I secured the suture tabs to the chest wall with 3-0 Vicryl suture. I secured two of the suture tabs. I then placed a piece of FlexHD acellular dermal matrix graft laterally to keep the safety fire boss from lateral migration. I secured the graft to the edge of the pectoralis muscle with 3-0 Vicryl figure of eight interrupted sutures. I secured the graft to the chest wall with 3-0 Vicryl figure of eight interrupted sutures. I used a malleable over the safety fire boss to protect the safety fire boss during the suture closure. I then closed [...] with replacement cohesive gel implants. Grafts/Implants Used: Humphrey CPX-4 tissue expanders x2 and FlexHD acellular dermal matrix graft. - Complications None. - Admit VTE Documentation VTE Present on Admission: No VTE Mechan Device Prophylaxis: SCD's VTE Pharm Prophylaxis ordered?: Yes Code Visit Surgery Charges CPT - 79190 ICD-10 - C50.911, F40.298, Z90.13, N65.1, T66.xxxS, N65.0, Z17.1, Z87.891 27959-40 C50.911, F40.298, Z90.13, N65.1, T66.xxxS, N65.0, Z17.1, Z87.891 05983 C50.911, F40.298, Z90.13, N65.0, T66.xxxS, N65.1, Z17.1, Z87.891 58168-53 C50.911, F40.298, Z90.13, N65.0, T66.xxxS, N65.1, Z17.1, Z87.891 80168-75 C50.911, F40.298, Z90.13, N65.1, T66.xxxS, N65.0, Z17.1, Z87.891 01/28/18 8883 <Electronically signed by Junior Whitman MD> Date Junior Whitman MD CC: Bradly Good MD; Chris Juárez MD; Alessandro Martinez MD; Junior Whitman MD; Josué Price MD; [facility] Signed DISCHARGE INSTRUCTION Observed: 01/25/2018 Status: F Source: [place] 12:22 PM [facility] [place] [facility] Medical Records Department [address] [place] [address] Instructions for Home/Discharge Instructions 01/25/18 1210 MR#: [id number] Acct: [id number] Name: SHARON BARRAGAN Rep #: [id number] : 1970 47 From: Junior Whitman MD [...] PO QHS 09/12/17 Fluticasone 0.05% [Flonase Nasal Francitas] 1 spray NASAL DAILY 01/16/18 Pregabalin [Lyrica] [...] Profile (BMP) Time Frame: 1 Week, Facility: [facility], Location: Laboratory, [place] Primary Care Physician: Alessandro Martinez MD [STAFF PHYSICIAN] - Test Results: Test results from this visit will be discussed in further detail at your follow-up appointment, if applicable. Please Follow Up With: Junior Whitman MD When: one week. call [phone] for appt. Proposed Discharge Date: 01/25/18 01/25/18 1222 <Electronically signed by Junior Whitman MD> Date Junior Whitman MD CC: Bradly Good MD; Chris Juárez MD; Alessandro Martinez MD; Josué Price MD; [facility] BASIC METABOLIC Collected: 01/25/2018 Status: F Source: [place] PROFILE ([facility]) 5:00 AM [facility] [place] TYPE CODE TESTS RESULT OUT OF [...] Normal 8 Performed By: #### L500.2500 #### [facility] [address] [place], [address] HISTORY AND PHYSICAL Observed: 01/24/2018 Status: F Source: [place] EXAM 11:13 PM [facility] [place] Medical Records Department [address] [place] [address] History and Physical 01/22/18 1736 MR#: [id number] Acct: [id number] Name: SHARON BARRAGAN Rep #: [id number] : 1970 47 From: Junior Whitman MD PCP: Josué Price MD Status: ADM ANNIE Y Location: [place] [address] History and Physical Date of Admission: 01/23/18 [...] therapy, I will place a saline tissue safety fire boss to try and loosen the breast pocket a little before taking her back to surgery for the replacement cohesive gel implant. She is aware of that possibility and wishes to proceed. I should be able to revise the left breast and place an implant since no radiation was done. At the time of the removal of the safety fire boss on the right, I may have to adjust the implant on the left either higher or lower depending on the final size of the implant on the right. When I'm developing the breast pocket on the left, if I feel it is a little tighter than I would like and I've already decided to place an safety fire boss on the right, then I may also proceed with an safety fire boss on the left as well. I anticipate [...] Status: F Source: [place] LEVEL 6:42 PM [facility] Order Comment: Comments: DRAW TROUGH 30 [...] (Ventilator/Healtcare Associated) -Sepsis PLEASE CONTACT PHARMACY SERVICES (#[id number]) FOR INTERPRETATION OF RESULTS. Performed By: #### L501.8820 #### [facility] [place], [address] CBC-COMPLETE BLOOD CNT Collected: 01/24/2018 Status: F Source: [place] NO DIFF 5:30 AM [facility] [place] TYPE CODE TESTS RESULT OUT OF [...] MPV 9.8 Performed By: #### L100.0500 #### [facility] [place], [address] BASIC METABOLIC Collected: 01/24/2018 Status: F Source: [place] PROFILE (BMP) 5:30 AM [facility] [place] [facility] TYPE CODE TESTS RESULT OUT OF [...] 10 Performed By: #### L500.2500, L506.0500 #### [facility] [address] [place], [address] PREALBUMIN Collected: 01/24/2018 Status: F Source: [place] 5:30 AM [facility] TYPE CODE TESTS RESULT OUT OF RANGE REFERENCE UNITS LAB L506.0500 20.0-40.0 mg/dL Normal PREALBUMIN 22.0 Performed By: #### L500.2500, L506.0500 #### [facility] [address] [place], [address] BASIC METABOLIC Collected: 01/23/2018 Status: F Source: [place] PROFILE (BMP) 4:52 PM [facility] Order Comment: Has pt arrived? Y [...] GAP 7 Performed By: #### L500.2500 #### [facility] [facility] [address] [place] [place], [address] Observed: 01/23/2018 Status: F Source: [place] CULTURE, DEEP WOUND 2:00 PM [facility] [place] Order Date: 10/19/16 Comments: Collected in OR, Right Breast Tissue Gram Stain Gram Stain No organisms seen No cells seen Wound Culture No growth aerobically. Cult, Anaerobic No growth in 5 days. Performed By: #### M100.1500 #### [facility] [address] [place] [place], [address] Observed: 01/23/2018 Status: F Source: [place] CULTURE, FUNGUS W/ 2:00 PM [facility] [id number] REPOSITORY Comments: Collected in OR, Right Breast Tissue Is this test to exclude patient from TB Isolation? N Cu,Wqkcoh9870 TESTING PERFORMED AT [facility]. ORIGINAL REPORT ON FILE IN LAB CONTAINS ADDITIONAL TEST SITE INFORMATION. CUF No yeast or mold isolated after [address] [facility] AT [facility]. ORIGINAL REPORT ON FILE IN LAB CONTAINS ADDITIONAL TEST SITE INFORMATION. Fungus Stain No yeast or mold observed. Performed By: #### M600.1900 #### [facility] [address] [place] [place], [address] LIPID PROFILE Collected: 01/23/2018 Status: F Source: [place] 10:00 AM [facility] RE[place] TYPE CODE TESTS RESULT OUT OF [...] VLDL 25 Performed By: #### L500.4100 #### [facility] [address] [place], [address] BREAST MASTECTOMY Observed: 01/23/2018 Status: F Source: [place] (CHOOSE SIDE 9:25 AM [facility] RE[place] Patient: SHARON BARRAGAN : 1970 (47/F) Acct Num: [id number] Phys: Junior Whitman MD Unit Num: [id number] Loc: MS2 ML327-9 Specimen: [id number] Received: 01/24/18832 Spec Type: BREAST TISSUES 1 [...] Sections do not reveal any mass lesion. Bi Technical Lead sections are submitted in four cassettes. B - Received in fixative is one container labeled with the patient's name and designated right breast tissue. The specimen consists of five variable sized pieces of clark, indurated tissue measuring in aggregate 5 x 3.5 x 1 cm. All pieces are bisected. The entire specimen is submitted in six cassettes. / JOHNIE: sharon 01/24/18 TC:5 CPT: 73832 x2 HEADER OPERATION: Revision right breast reconstruction [...] file> Performed By: #### PBREAST #### [facility] [address] [place], [address] INTERNAL MEDICINE Observed: 01/22/2018 Status: F Source: KODI OFFICE VISIT 1:05 PM [facility] RE[facility]IT[facility] [address] [place] [address] [address] [place] [address] OFFICE VISIT Date of Service: 01/18/18 MR#: [id number] Acct: [id number] Name: SHARON BARRAGAN Rep #: [id number] : 1970 Provider: Alessandro Martinez MD Age/Sex: 47/F Location: [facility] Status: Signed Intake Vital Signs01/18/18 Height 5 [...] [History Confirmed 01/18/18] Fluticasone 0.05% [Flonase Nasal Francitas] 1 spray NASAL DAILY 01/16/18 [History Confirmed [...] acute distress Orientation: alert, awake, oriented x3 [facility] Head: atraumatic, normocephalic, normal to [...] Will monitor. This note was generated with Ed4Uation software. It may contain incorrect words, spelling, [...] LEAD ELECTROCARDIOGRAM Observed: 01/18/2018 Status: F Source: [place] 3:43 PM [facility] Cardiovascular Services [address] [place] [address] 12 Lead EKG 01/16/18 1416 MR#: [id number] Acct: [id number] Name: SHARON BARRAGAN Rep #: [id number] : 1970 47 From: Iron Ryan MD Attending Dr: Junior Whitman MD Status: PRE [facility] [place]ing [place]: Junior Whitman MD Date: 01/16/18 [place] [facility] Sex: F C Admitted: Test Reason : PRE-OP Blood Pressure : / mmHG Vent. Rate : 074 BPM Atrial Rate : 074 BPM P-R Int : 152 ms QRS Dur : 072 ms QT Int : 364 ms P-R-T Axes : 020 001 035 degrees QTc Int : 404 ms Normal sinus rhythm Normal ECG Confirmed by IRON RYAN MD ([id number]), editor trade journal DOMENICA BURNHAM ([id number]) on 01/18/2018 3:42:48 PM Referred By: Junior Whitman Confirmed By:IRON RYAN MD 01/18/18 1542 Date Iron Ryan MD CC: Junior Whitman MD; Josué Price MD Signed PLASTIC SURGERY Observed: 12/28/2017 Status: F Source: [place] VISIT REPORT 3:56 PM [facility] [address] [place] [address] OFFICE VISIT Date of Service: 12/21/17 MR#: [id number] Acct: [id number] Name: SHARON BARRAGAN Rep #: [id number] : 1970 Provider: Junior Whitman MD Age/Sex: 47/F Location: [facility] Status: Signed Intake Vital Signs12/21/17 Height 5 ft 1 in 12/21/17 Weight: 180 lb 4 oz 12/21/17 Body Mass Index (BMI) 34.0 12/21/17 Respiratory Rate 16 Intake Visit Reasons: post op surgery, 09/19/17 Pillow Filler Required: No Accompanied by: Mother Is patient [...] time, I will place a saline tissue safety fire boss to increase the size of the pocket for subsequent cohesive gel implant. I doubt I would need an safety fire boss on the left. Once I revise the skin envelope on the left, I will place an implant there. Depending on the expansion process on the right, I will be prepared to revise the implant on the left with either a smaller one or a larger one at the time of the removal of the safety fire boss on the right with replacement cohesive gel [...] Cosigner Signature: Date (if applicable) Della Dale SOCIAL SERVICES ASSISTANT-C CC: DISCHARGE INSTRUCTION Observed: 12/14/2017 Status: F Source: [place] 8:26 PM [facility] REPOSITORY [facility] Medical Records Department [address] [place] [address] Discharge Instruction 12/14/172024 MR#: [id number] Acct: [id number] Name: SHARON BARRAGAN Rep #: [id number] : 1970 47 From: Tony Ramirez DO [...] your Primary Care Provider. Call [facility] ([phone]) or report to the closest Emergency Room. Call 911 if necessary. 12/14/172025 <Electronically signed by Tony Ramirez DO> Date Tony Ramirez DO Cosigner Signature (If Indicated): Date CC: Josué Price MD EMERGENCY DEPARTMENT Observed: 12/14/2017 Status: F Source: [place] SUMMARY 8:25 PM [facility] REPOSITORY [facility] Medical Records Department [address] [place] [address] Emergency Department Summary 12/14/172022 MR#: [id number] Acct: [id number] Name: SHARON BARRAGAN Rep #: [id number] : 1970 47 From: Tony Ramirez DO [...] meat impaction-resolved] This note was generated with Vigilistics dictation software. It may contain incorrect words, [...] problems, contact your Primary Care Provider. Call [facility] ([phone]) or report to the closest Emergency Room. Call 911 if necessary. 12/14/172024 <Electronically signed by Tony Ramirez DO> Date Tony Ramirez DO Cosigner Signature (If Indicated): Date CC: Josué Price MD PLASTIC SURGERY Observed: 11/29/2017 Status: F Source: [place] VISIT REPORT 1:56 PM [facility] [address] [address] OFFICE VISIT Date of Service: 11/23/17 MR#: [id number] Acct: [id number] Name: SHARON BARRAGAN Rep #: [id number] : 1970 Provider: Junior Whitman MD Age/Sex: 47/F Location: [facility] Status: Signed Intake Vital Signs11/23/17 Blood Pressure 125/85 11/23/17 Blood Pressure Location Lt brachial 11/23/17 Blood Pressure Position Sitting 11/23/17 Respiratory Rate 16 Intake Visit Reasons: post op surgery 09/19/17 Pillow Filler Required: No Accompanied by: Mother Is patient [...] DIFFICILE PCR Collected: 11/15/2017 Status: F Source: [place] 2:30 PM [facility] REPOSITORY TYPE CODE TESTS RESULT OUT OF REFERENCE UNITS RANGE LAB CDFRES C difficile PCR Negative for C. difficile toxin by PCR Performed By: #### CDPCR #### [facility] [address] [place], [place] [address] PLASTIC SURGERY Observed: 11/05/2017 Status: F Source: [place] VISIT REPORT 11:33 AM [facility] [facility] [address] [place] [address] OFFICE VISIT Date of Service: 10/18/17 MR#: [id number] Acct: [id number] Name: SHARON BARRAGAN Rep #: [id number] : 1970 Provider: Junior Whitman MD Age/Sex: 47/F Location: [facility] Status: Signed Intake Vital Signs10/18/17 Height 5 ft 1 in 10/18/17 Weight: 178 lb 10/18/17 Body Mass Index (BMI) 33.6 10/18/17 Blood Pressure 107/76 10/18/17 Blood Pressure Location Lt brachial 10/18/17 Blood Pressure Position Sitting Intake Visit Reasons: postop surgery 09/19/17 Pillow Filler Required: No Is patient in pain?: Yes [...] PRN 7 Days #40 tab 11/03/17 [Rx] [facility] Medical History Deformity of reconstructed breast (Acute) [...] CC: RETICULOCYTE Collected: 10/31/2017 Status: F Source: [place] 11:54 AM [facility] REPOSITORY TYPE CODE TESTS RESULT OUT OF REFERENCE UNITS RANGE LAB RETC 0.4-2.0 % High Retic% 2.6 LAB ABRET 0.0180-0.1000 M/uL High Abs Retic 0.111 Performed By: #### RETIC, WSR, B12, CRP, IRON, FERR #### [place] [phone] SED RATE WESTERGREN Collected: 10/31/2017 Status: F Source: [place] 11:54 AM [facility] REPOSITORY TYPE CODE TESTS RESULT OUT OF REFERENCE UNITS RANGE LAB WSR 0-20 mm/hr Sed Rate High [place] 44 Performed By: #### RETIC, WSR, B12, CRP, IRON, FERR #### [place] [phone] VITAMIN B12 Collected: 10/31/2017 Status: F Source: [place] 11:54 [facility] REPOSITORY TYPE CODE TESTS RESULT OUT OF REFERENCE UNITS RANGE LAB B12 232-1245 pg/mL Vitamin B12 647 Performed By: #### RETIC, WSR, B12, CRP, IRON, FERR #### [place] [address] C-REACTIVE PROTEIN Collected: 10/31/2017 Status: F Source: [place] 11:54 [facility] REPOSITORY TYPE CODE TESTS RESULT OUT OF REFERENCE UNITS RANGE LAB CRP <0.9 mg/dL High C-Reactive 2.1 Protein Performed By: #### RETIC, WSR, B12, CRP, IRON, FERR #### [place] [address] IRON AND TIBC Collected: 10/31/2017 Status: F Source: [place] 11:54 AM [facility] REPOSITORY TYPE CODE TESTS RESULT OUT OF REFERENCE UNITS RANGE LAB IRN 41-186 ug/dL Low Iron 33 LAB TIBC 232-386 ug/dL TIBC High 405 LAB SAT 15-57 % Low Transferrin Saturatn 8 Performed By: #### RETIC, WSR, B12, CRP, IRON, FERR #### [facility] [address] [place] [address] FERRITIN Collected: 10/31/2017 Status: F Source: [place] 11:54 AM [facility] REPOSITORY TYPE CODE TESTS RESULT OUT OF REFERENCE UNITS RANGE LAB FERR 14.7-205.1 ng/mL Ferritin 42.7 Performed By: #### RETIC, WSR, B12, CRP, IRON, FERR #### [facility] [address] [place] [address] K[place]I CBC Collected: 10/31/2017 Status: F Source: [place] 11:53 AM [facility] REPOSITORY TYPE CODE TESTS RESULT OUT OF REFERENCE UNITS RANGE LAB WWBC 3.70-11.00 k/uL [place] WBC 4.36 LAB WRBC 3.90-5.20 m/uL [place] RBC 4.37 LAB WHGB 11.5-15.5 g/dL Low [place] Hemoglobin 11.4 LAB WHCT 36.0-46.0 % Low [place] Hematocrit 34.1 LAB WMCV 80.0-100.0 fL Low [place] MCV 78.0 LAB WMCH 26.0-34.0 pg [place] MCH 26.1 LAB WMCHC 30.5-36.0 g/dL [place] MCHC 33.4 LAB WRDW 11.5-15.0 % [place] RDW 14.6 LAB WPLT 150-400 k/uL [place] Platelet Cnt 295 LAB WMPV 9.0-12.7 fL [place] MPV 9.5 PROGRESS Observed: 10/31/2017 Status: COMPLETED Source: [place] 11:20 AM [facility] REPOSITORY HNO ID: [id number] Author: Iron Nguyen Service: (none) Author Type: [...] demonstrated fibroadenoma. Negative for both ER and ND. HER-2 was interpreted as 2+, granular. Subsequent [...] or murmur. BREAST: Her mother acted as payment collector. The right reconstructed breast mound appears healthy with no sign of surrounding infection. There is some induration along the lateral portion into the axilla. It's nontender. No fluctuance or erythema. ABDOMEN: Less upper abdominal distention. No mass. Extremities: No swelling or edema. SKIN: No jaundice or rash. No petechiae. NEUROLOGIC: baggage and mail agent II-XII are grossly intact. No focal motor weakness. MUSCULOSKELETAL: No muscle wasting or tenderness. ASSESSMENT/PLAN: (C50.511) Breast cancer of lower-outer quadrant of right female breast (HCC) (primary encounter diagnosis) Assessment: -pT1c (1.5 cm; grade 3; no ALI) pN0(sln) MX ER/ND negative, HER-2 nonamplified invasive ductal carcinoma the [...] DO CNOVSP Observed: 10/31/2017 Status: COMPLETED Source: [place] 11:10 AM [facility] REPOSITORY Visit (SP) Office (HEMAWS) SHARON BARRAGAN ([id number]) 1970 F Date Time Provider Department 10/31/17 [...] demonstrated fibroadenoma. Negative for both ER and ND. HER-2 was interpreted as 2+, granular. Subsequent [...] or murmur. BREAST: Her mother acted as payment collector. The right reconstructed breast mound appears healthy with no sign of surrounding infection. There is some induration along the lateral portion into the axilla. It's nontender. No fluctuance or erythema. ABDOMEN: Less upper abdominal distention. No mass. Extremities: No swelling or edema. SKIN: No jaundice or rash. No petechiae. NEUROLOGIC: baggage and mail agent II-XII are grossly intact. No focal motor weakness. MUSCULOSKELETAL: No muscle wasting or tenderness. ASSESSMENT/PLAN: (C50.511) Breast cancer of lower-outer quadrant of right female breast (HCC) (primary encounter diagnosis) Assessment: -pT1c (1.5 cm; grade 3; no ALI) pN0(sln) MX ER/ND negative, HER-2 nonamplified invasive ductal carcinoma the [...] Iron Nguyen DO Referring Provider: IRON NGUYEN [[id number]] Allergies As of Date: 10/31/2017 Noted Allergy Reaction HAYFEVER (HOMEOPATHIC PRODUCTS) 03/07/2006 poultry [Other] 03/07/2006 Comments: Babb, chicken Date Reviewed: 10/31/2017 Reviewed by: Alexa Arizmendi - Fully Assessed Reason for Visit: Established Patient [175] Primary Visit Diagnosis:Malignant neoplasm of lower-outer quadrant of right breast of female, estrogen receptor negative (HCC) [C50.511, Z17.1] Other Visit Diagnosis:Anemia, unspecified type [D64.9] Order(s):[place] CBC [SQWCBC] Order #: [id number] FUTURE IRON + TIBC [SQIRON] Order #: [id number] FUTURE FERRITIN BLD [SQFERR] Order #: [id number] FUTURE RETIC COUNT [SQRETIC] Order #: [id number] FUTURE SED RATE WESTERGREN [SQWSR] Order #: [id number] FUTURE C-REACTIVE PROTEIN (CRP) [SQCRP] Order #: [id number] FUTURE VITAMIN B12 BLOOD [SQB12] Order #: [id number] FUTURE Follow-up and Disposition History Recorded Prescriptions [...] [F43.9] INVALID FOR* History of Clostridium difficile [SEJ7991] INVALID FOR*02/20/2017 More... Atherosclerosis of aorta (HCC) [I70.0] INVALID FOR* More... Palpitations [R00.2] INVALID FOR* Lymphedema [I89.0] INVALID FOR* Chronic bilateral low back pain with bilateral *INVALID FOR* More... Bilateral plantar fasciitis [M72.2] INVALID FOR* Open wound of chest wall [S21.109A] INVALID FOR* More... Encounter Status:Closed by IRON NGUYEN DO on 10/31/17 PLASTIC SURGERY Observed: 10/17/2017 Status: F Source: [place] VISIT REPORT 4:39 PM [facility] [address] [place] [address] OFFICE VISIT Date of Service: 09/27/17 MR#: [id number] Acct: [id number] Name: SHARON BARRAGAN Rep #: [id number] : 1970 Provider: Junior Whitman MD Age/Sex: 47/F Location: [facility] Status: Signed Intake Vital Signs09/27/17 Respiratory Rate 18 Intake Visit Reasons: postop surgery 09/19/17 Pillow Filler Required: No Accompanied by: Mother Is patient [...] had fallen at home. She came from [facility] as she felt she was in too [...] OPERATIVE REPORT Observed: 10/13/2017 Status: F Source: [place] 11:57 AM [facility] Medical Records Department [address] [place] [address] Operative Report 09/19/172042 MR#: [id number] Acct: [id number] Name: SHARON BARRAGAN Rep #: [id number] : 1970 47 From: Junior Whitman MD PCP: Josué Price MD Status: DIS IN Y Location: [facility] [id number] Report of Operation Date of Procedure: 09/19/17 [...] in the flank areas). Reference Number - [id number]. Lot Number - [id number]. Expiration - July 15, 2022. front end developer javascript html css: Leigh Ann Brush. front end developer javascript html css: Zeus Souza. Type of Anesthesia:: General Specimen's [...] as I can. I used 2-0 Vicryl awyjdn-gq-kzrlh interrupted sutures for the underlying fascia. The [...] wound in multiple layers using 2-0 Vicryl fogrqs-ii-rjbhp interrupted sutures for the underlying Melani's fascia. [...] tissue with the muscle using 3-0 Vicryl afbybi-gr-mxwoa interrupted sutures. The deep dermis and subcutaneous tissue was approximated using 3-0 Monocryl interrupted sutures. At this point it was exceedingly difficult to close the inferior edge of the wound. So the options at this point included packing the wound which would not be a good termite control technician solution because the scarring would not provide [...] Yes Code Visit Surgery Charges CPT - 11647 ICD-10 - C50.911, F40.298, Z90.13, N65.1, T66.xxxS, L98.499, T86.828, Z17.1, Z87.891 57257 C50.911, N65.0, T66.xxxS, L98.499, T86.828, F40.298, Z90.13, Z17.1, Z87.891, N65.1 10/13/17 1157 <Electronically signed by Junior Whitman MD> Date Junior Whitman MD CC: Chris Juárez MD; Junior Whitman MD; Josué Price MD; [facility] Signed Observed: 10/11/2017 Status: F Source: [place] CULTURE, DEEP WOUND 9:30 AM [facility] Gram Stain Gram Stain 1+ Gram [...] bacteria isolated. Performed By: #### M100.1500 #### [facility] [address] [place], [place], [address] CBC AND DIFFERENTIAL Collected: 10/10/2017 Status: F Source: [place] 10:45 AM [facility] REPOSITORY TYPE CODE TESTS RESULT [...] Low Abs Lymph 0.90 LAB AMONO % [place]% 8.5 LAB AAMONO <0.87 k/uL Abs [place] 0.34 LAB AEOS % Eosin% 3.5 LAB AAEOS <0.46 k/uL Abs Eosin 0.14 LAB ABASO % Baso% 0.3 LAB AABASO <0.11 k/uL Abs Baso <0.03 LAB AUNRBC 0 /100 WBC NRBCs 0.0 LAB ABNRBC <0.01 k/uL Absolute nRBC <0.01 LAB DTYP DTYPE Auto Diff Performed By: #### CBCDIF, FT4, BMP, TSH #### [facility] [place], [place] [address] FREE T4 Collected: 10/10/2017 Status: F Source: [place] 10:45 AM [facility] REPOSITORY TYPE CODE TESTS RESULT OUT OF RANGE REFERENCE UNITS LAB FT4 0.9-1.7 ng/dL Free T4 1.0 Performed By: #### CBCDIF, FT4, BMP, TSH #### [facility] [place], [place] [address] BASIC METABOLIC PANL Collected: 10/10/2017 Status: F Source: [place] 10:45 AM [facility] REPOSITORY TYPE CODE TESTS RESULT OUT [...] By: #### CBCDIF, FT4, BMP, TSH #### [facility] [address] [place], [place] [address] TSH Collected: 10/10/2017 Status: F Source: [place] 10:45 AM [facility] REPOSITORY TYPE CODE TESTS RESULT [...] Clinical Practice Guideline. J Clin Endocrinol Metab, 2012:97:3339-7897. 2. Hussein APPIAH. Overview of thyroid disease in . UpToDate. 2016. Accessed on September 04, 2015. 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 - Severe episode of recurrent major depressive disorder, without psychotic features ([facility]) 04/04/2016 - Thyroid cancer ([facility]) 03/2006 PAST SURGICAL HISTORY Procedure Laterality Date [...] plan. 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 - Severe episode of recurrent major depressive disorder, without psychotic features ([facility]) 04/04/2016 - Thyroid cancer ([facility]) 03/2006 PAST SURGICAL HISTORY Procedure Laterality Date [...] (HOMEOPATHIC PRODUCTS) 03/07/2006 poultry [Other] 03/07/2006 Comments: Babb, chicken Date Reviewed: 10/10/2017 Reviewed by: Kanwal Hurt [facility] Transitions Coordinator - Fully Assessed Reason for Visit: Wants referral to cardiology [Other] Cmt: for rapid heart rate Primary Visit Diagnosis:Tachycardia [R00.0] Other Visit Diagnoses:Palpitations [R00.2] Stress at home [F43.9] Order(s):ECG COMPLETE W INTERPRETATION [ECG01] Order #: [id number] FUTURE ECHO [532301] Order #: [id number]: 1 FUTURE HOLTER MONITOR 24 HOUR [5747791] Order #: [id number] FUTURE CBC + DIFF [SQCBCDIF] Order #: [id number] FUTURE BASIC METABOLIC PNL [SQBMP] Order #: [id number] FUTURE TSH BLD [SQTSH] Order #: [id number] FUTURE T4 FREE/FREE THYROX [SQFT4] Order #: [id number] FUTURE Prescriptions as of 10/10/2017 Sig: TRAZODONE [...] [F43.9] INVALID FOR* History of Clostridium difficile [ULK6841] INVALID FOR*02/20/2017 More... Atherosclerosis of aorta (HCC) [...] chest pain Encounter Status:Closed by GEORGIE SCHULTZ RATTLE LEAK AND SQUEAK REPAIRER on 10/10/17 ECG COMPLETE W Observed: 10/10/2017 Status: F Source: [facility] 9:55 AM [facility] REPOSITORY NAME : SHARON BARRAGAN PID : [id number] : 1970 Gender : Female Race : ORD : [id number] Procedure Date : Oct 10 2017 09:55:08 Edit Date : Oct 12 2017 16:52:27 Diagnosis:SINUS TACHYCARDIA OTHERWISE NORMAL ECG Confirmed by KOREY RAY D.O. ([id number]) on 10/12/2017 4:52:15 PM Ventricular Rate : 102 BPM Atrial Rate : 102 BPM P-R Interval : 140 ms QRS Duration : 72 ms Q-T Interval : 352 ms QTC Calculation(Bezet) : 458 ms P [place] : 10 degrees R [place] : -7 degrees T [place] : 12 degrees Test Reason : Location : 185 : [facility] Overread By : KOREY RAY D.O. Edited By : KOREY RAY D.O. Referred By : GEORGIE SCHULTZ Acquired by : [facility] DIS[facility]GE INSTRU[facility] Observed: 10/07/2017 Status: F Source: [place] 10:46 PM [facility] Medical Records Department [address] [place] [address] Discharge Instruction 10/07/17 2245 MR#: [id number] Acct: [id number] Name: ALEJANDRA BARRAGANDuarte Holland Rep #: [id number] : 1970 47 From: Manav Olmos MD [...] problems, contact your Primary Care Provider. Call [facility] ([phone]) or report to the closest Emergency Room. Call 911 if necessary. 10/07/17 2246 <Electronically signed by Manav Olmos MD> Date Manav Olmos MD Cosigner Signature (If Indicated): Date CC: Josué Price MD EMERGENCY DEPARTMENT Observed: 10/07/2017 Status: F Source: [place] SUMMARY 10:45 PM [facility] Medical Records Department [address] [place] [address] Emergency Department Summary 10/07/17 2243 MR#: [id number] Acct: [id number] Name: SHARON BARRAGAN Rep #: [id number] : 1970 47 From: Manav Olmos MD [...] VAC complications This note was generated with Ed[employer]Uation software. It may contain incorrect words, spelling, [...] your Primary Care Provider. Call [facility] ([phone]) or report to the closest Emergency Room. Call 911 if necessary. 10/07/17 <Electronically signed by Manav Olmos MD> Date Manav Olmos MD Cosigner Signature (If Indicated): Date CC: Josué Price MD DISCHARGE SUMMARY Observed: 09/28/2017 Status: F Source: [place] 1:25 AM [facility] [place] [facility] Medical Records Department [address] [place] [address] Discharge Summary 09/25/172231 MR#: [id number] Acct: [id number] Name: SHARON BARRAGAN Rep #: [id number] : 1970 47 From: Junior Whitman MD PCP: Josué Price MD Status: DIS IN Y Location: MS3 NK380-3 Discharge Date and Diagnosis Date of Admission: [...] Imaging Results: None. Consultations 09/22/17 06:45 Consult: Onc/Wound/stringed instrument repairer Routine Comment: Reason for Consult:: ? VAC [...] start HBO this week. When: 10/10/15 at [facility]. Call [phone] for appt. Please Follow Up With: Junior Whitman MD When: one week. call [phone] for appt. Disposition: Home with Home Health Minutes spent on discharge:: 35 Patient Condition:: Stable Medical Necessity - Tobacco Use Smoking Status: Former smoker Meaningful Use Info Meaningful Use Diagnoses (Choose all that apply): None applicable 09/28/17 0125 <Electronically signed by Junior Whitman MD> Date Junior Whitman MD Cosigner Signature (if applicable): Date CC: Chris Juárez MD; Junior Whitman MD; Josué Price MD; [facility] Signed HISTORY AND PHYSICAL Observed: 09/26/2017 Status: F Source: [place] EXAM 12:17 AM [facility] [place] [facility] [facility] Medical Records Department [address] [place] [address] History and Physical 09/18/17 2100 MR#: [id number] Acct: [id number] Name: SHARON BARRAGAN Rep #: [id number] : 1970 47 From: Junior Whitman MD PCP: Josué Price MD Status: DIS IN Y Location: ND3 EM419-4 History and Physical Date of Admission: 09/19/17 [...] is not interested in a saline tissue safety fire boss. She would want to go straight to [...] or the placement of a saline tissue safety fire boss would be done. Even then, there is no guarantee the safety fire boss will stretch the latissimus as much as [...] and depending on her wishes, a tissue safety fire boss may be placed to make the breast pocket a little bigger for symmetry purposes. If she wants to hold off on a tissue safety fire boss and is willing to accept a slightly [...] 09/25/2017 Status: F Source: [place] 12:43 PM [facility] [place] [facility] [facility] Medical Records Department [address] [place] [address] Instructions for Home/Discharge Instructions 09/25/17 1237 MR#: [id number] Acct: [id number] Name: SHARON BARRAGAN Rep #: [id number] : 1970 47 From: Junior Whitman MD [...] start HBO this week. When: 10/10/15 at [facility]. Call [phone] for appt. Please Follow Up With: Junior Whitman MD When: one week. call [phone] for appt. Proposed Discharge Date: 09/25/17 09/25/17 1243 <Electronically signed by Junior Whitman MD> Date Junior Whitman MD CC: Chris Juárez MD; Josué Price MD; [facility] CBC-COMPLETE BLOOD CNT Collected: 09/24/2017 Status: F Source: [place] NO DIFF 6:00 AM [facility] [place] [facility] TYPE CODE TESTS RESULT OUT OF [...] MPV 8.5 Performed By: #### L100.0500 #### [facility] [address] [place], [address] BASIC METABOLIC Collected: 09/24/2017 Status: F Source: [place] PROFILE (BMP) 6:00 AM [facility] [place] [facility] TYPE CODE TESTS RESULT OUT OF [...] GAP 8 Performed By: #### L500.2500 #### [facility] [address] [place], [place], [id number] CBC-COMPLETE BLOOD CNT Collected: 09/23/2017 Status: F Source: [place] NO DIFF 8:30 AM [facility] [place] [facility] TYPE CODE TESTS RESULT OUT OF [...] MPV 9.0 Performed By: #### L100.0500 #### [facility] [address] [place], [place], [address] BASIC METABOLIC Collected: 09/23/2017 Status: F Source: [place] PROFILE (BMP) 8:30 AM [facility] [place] [facility] TYPE CODE TESTS RESULT OUT OF [...] GAP 7 Performed By: #### L500.2500 #### [facility] [address] [place], [address] CBC-COMPLETE BLOOD CNT Collected: 09/22/2017 Status: F Source: [place] NO DIFF 5:25 AM [facility] [place] [facility] TYPE CODE TESTS RESULT OUT OF [...] MPV 9.5 Performed By: #### L100.0500 #### [facility] [address] [place], [address] BASIC METABOLIC Collected: 09/22/2017 Status: F Source: [place] PROFILE (BMP) 5:25 AM [facility] [place] [facility] TYPE CODE TESTS RESULT OUT OF [...] GAP 7 Performed By: #### L500.2500 #### [facility] [address] [facility] [place], [place], [address] CBC-COMPLETE BLOOD CNT Collected: 09/21/2017 Status: F Source: [place] NO DIFF 5:30 AM [facility] [place] [facility] TYPE CODE TESTS RESULT OUT OF [...] 9.5 Performed By: #### L100.0500, L500.2500 #### [facility] [address] [facility] [place], [place], [address] BASIC METABOLIC Collected: 09/21/2017 Status: F Source: [place] PROFILE (BMP) 5:30 AM [facility] [place] [facility] TYPE CODE TESTS RESULT OUT OF [...] 7 Performed By: #### L100.0500, L500.2500 #### [facility] [address] [facility] [address] [facility] [place], [place], [address] VANCOMYCIN, TROUGH Collected: 09/20/2017 Status: F Source: [place] LEVEL 8:10 PM [facility] [place] [facility] Order Comment: Time Medication is to [...] (Ventilator/Healtcare Associated) -Sepsis PLEASE CONTACT PHARMACY SERVICES (#[id number]) FOR INTERPRETATION OF RESULTS. Performed By: #### L501.8820 #### [facility] [address] [facility] [place], [place], [address] CBC-COMPLETE BLOOD CNT Collected: 09/20/2017 Status: F Source: [place] NO DIFF 5:20 AM [facility] [place] [facility] TYPE CODE TESTS RESULT OUT OF [...] MPV 9.3 Performed By: #### L100.0500 #### [facility] [address] [place], [address] BASIC METABOLIC Collected: 09/20/2017 Status: F Source: [place] PROFILE (BMP) 5:20 AM [facility] [place] [facility] TYPE CODE TESTS RESULT OUT OF [...] GAP Performed By: #### L500.2500, L506.0500 #### [facility] [address] [place], [address] PREALBUMIN Collected: 09/20/2017 Status: F Source: [place] 5:20 AM [facility] [place] [facility] TYPE CODE TESTS RESULT OUT OF RANGE REFERENCE UNITS LAB L506.0500 20.0-40.0 mg/dL Normal PREALBUMIN 21.3 Performed By: #### L500.2500, L506.0500 #### [facility] [address] [facility] [place], [address] MRSA WOUND DNA BY Collected: 09/19/2017 Status: F Source: [place] PCR 12:00 AM [facility] [place] [facility] Order Comment: Comments: RIGHT BREAST RADIATION ULCER TYPE CODE TESTS RESULT OUT OF RANGE REFERENCE UNITS LAB L8200.1100 Negative Normal MRSA Negative RESULT LAB L8200.1150 Negative Normal SA RESULT NEGATIVE Performed By: #### L8200.1075, M600.1900 #### [facility] [address] [facility] [place], [address] Observed: 09/19/2017 Status: F Source: [place] CULTURE, FUNGUS W/ 12:00 AM [facility] [id number] REPOSITORY Comments: RIGHT BREAST RADIATION ULCER Is this test to exclude patient from TB Isolation? Shayna Owen,[id number] TESTING PERFORMED AT [facility]. ORIGINAL REPORT ON FILE IN LAB CONTAINS ADDITIONAL TEST SITE INFORMATION. CUF No yeast or mold isolated after [address] TESTING PERFORMED AT [facility]. ORIGINAL REPORT ON FILE IN LAB CONTAINS ADDITIONAL TEST SITE INFORMATION. Fungus Stain No yeast or mold observed. Performed By: #### L8200.1075, M600.1900 #### [facility] [address] [place], [address] Observed: 09/19/2017 Status: F Source: [place] CULTURE, DEEP WOUND 12:00 [facility] [place] [facility] Order Date: 10/19/16 Comments: RIGHT BREAST RADIATION ULCER Gram Stain Gram Stain No White Blood Cells No organisms seen Wound Culture No growth aerobically. Cult, Anaerobic No growth in 5 days. Performed By: #### M100.1500 #### [facility] [address] [facility] [place], [address] ULCER Observed: 09/19/2017 Status: F Source: [place] 12:00 AM [facility] [place] [facility] Patient: SHARON BARRAGAN : 1970 (47/F) Acct Num: [id number] Phys: Junior Whitman MD Unit Num: [id number] Loc: MS3 NJ052-1 Specimen: [id number] Received: 09/19/171443 Spec Type: ULCER TISSUES TISSUES: [...] Serial sections do not reveal mass lesions. Bi Technical Lead sections are submitted in four cassettes. / AM:sharon 09/21/17 TC:2 CPT: 89849, 30271 x2 HEADER OPERATION: Breast, reconstruction latissimus dorsi [...] on file> Performed By: #### PUL #### [facility] [place], [address] PLASTIC SURGERY Observed: 09/18/2017 Status: F Source: [place] VISIT REPORT 10:23 PM [facility] [place] [facility] [address] [place] [address] OFFICE VISIT Date of Service: 08/30/17 MR#: [id number] Acct: [id number] Name: SHARON BARRAGAN Rep #: [id number] : 1970 Provider: Junior Whitman MD Age/Sex: 47/F Location: [facility] Status: Signed Intake Intake Visit Reasons: [...] is not interested in a saline tissue safety fire boss. She would want to go straight to [...] or the placement of a saline tissue safety fire boss would be done. Even then, there is no guarantee the safety fire boss will stretch the latissimus as much as [...] and depending on her wishes, a tissue safety fire boss may be placed to make the breast pocket a little bigger for symmetry purposes. If she wants to hold off on a tissue safety fire boss and is willing to accept a slightly [...] 09/07/2017 Status: F Source: [place] 1:10 PM [facility] Medical Records Department [address] [place] [address] Downtime Report MR#: [id number] Acct: [id number] Name: SHARON BARRAGAN Rep #: [id number] : 1970 47 From: Karthik Burnham PCP: Josué Price MD Status: REG CLI This patient was seen during an EMR downtime August 21, 2017 - August 28, 2017. This patient may have a combination of paper and electronic documentation or all paper documentation. All documentation is viewable within the e-chart portion of [employer] for each patient visit. DOWNTIME REPORT Observed: 09/07/2017 Status: F Source: [place] 12:00 PM [facility] Medical Records Department [address] [place] [address] Downtime Report MR#: [id number] Acct: [id number] Name: SHARON BARRAGAN Rep #: [id number] : 1970 47 From: Karthik Burnham PCP: Josué Price MD Status: REG CLI This patient was seen during an EMR downtime August 21, 2017 - August 28, 2017. This patient may have a combination of paper and electronic documentation or all paper documentation. All documentation is viewable within the e-chart portion of [employer] for each patient visit. CYST PUNCTURE Observed: 08/28/2017 Status: F Source: [place] 2:34 PM [facility] Imaging Services [address] [place] [address] Cyst Puncture MR#: [id number] Acct: [id number] Name: SHARON BARRAGAN E Rep #: [id number] : 1970 F 47 From: Nikolai Alvarado MD PCP: Josué Price MD Status: REG CLI Study: Cyst Puncture Date of Exam: 08/22/17 Exam# [id number] Ordering Dr: Junior Whitman MD PROCEDURE: ULTRASOUND [...] 10 mL of lidocaine 1% a 4 Niuean needle catheter is introduced in the fluid [...] CC: Junior Whitman MD; Josué Price MD Receiving Distribution Station Operator: Signed PROGRESS Observed: 08/24/2017 Status: COMPLETED Source: [place] 4:29 PM [facility] REPOSITORY HNO ID: [id number] Author: Josué Price Service: (none) Author Type: [...] 3 Occupational History 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 [employer] Social History Main Topics Smoking status: Former [...] MD CNOV Observed: 08/24/2017 Status: COMPLETED Source: [place] 3:40 PM [facility] REPOSITORY Office Visit (INTMWS) SHARON BARRAGAN ([id number]) 1970 F Date Time Provider Department 08/24/17 [...] 3 Occupational History 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 Atherosclerosis of aorta (HCC) [...] Source: [place] CULTURE, BODY FLUID 2:30 PM [facility] [place] [facility] RESULT(S) PREVIOUSLY REPORTED ON MANUAL REQUISITION DURING DOWNTIME. List Antibiotics Last 48 Hours? UNK List Antibiotics to be Started? UNK Comments: FLUID SEROMA DRAINAGE Gram Stain Centrifuged Specimen? Culture performed on centrifuged specimen Gram Stain Rare Red Blood Cells No organisms seen Body Fluid Cult No growth aerobically. Cult, Anaerobic No growth in 5 days. Performed By: #### M100.1300 #### [facility] [address] [place], [address] PROGRESS Observed: 08/08/2017 Status: COMPLETED Source: [place] 2:32 PM [facility] REPOSITORY O ID: [id number] Author: Kim Yepez Service: (none) Author Type: [...] has been calibrated to be traceable to [employer]. An eGFR <60 mL/min/1.73m2 for >3 months [...] W IVCON Observed: 08/08/2017 Status: F Source: [place] 2:31 PM [facility] REPOSITORY * * *Final Report* * * DATE OF EXAM: Aug 08 2017 2:31PM [facility] 0530 - CT ABD/PEL W IVCON / [...] above. No acute intra-abdominal process is seen. Receiving Distribution Station Operator: PSCB Transcribe Date/Time: Aug 08 2017 2:39P Dictated by : TRICIA NEGRO MD This examination was interpreted and the report reviewed and electronically signed by: TRICIA NEGRO MD on Aug 08 2017 2:47PM EST [id number] ABS GR + CBC Collected: 07/31/2017 Status: F Source: [place] 3:18 PM [facility] REPOSITORY TYPE CODE TESTS RESULT OUT OF REFERENCE UNITS RANGE LAB WWBC 3.70-11.00 k/uL [place] WBC 5.63 LAB WRBC 3.90-5.20 m/uL [place] RBC 4.57 LAB WHGB 11.5-15.5 g/dL [place] Hemoglobin 12.4 LAB WHCT 36.0-46.0 % [place] Hematocrit 36.5 LAB WMCV 80.0-100.0 fL Low [place] MCV 79.9 LAB WMCH 26.0-34.0 pg [place] MCH 27.1 LAB WMCHC 30.5-36.0 g/dL [place] MCHC 34.0 LAB WRDW 11.5-15.0 % [place] RDW 13.9 LAB WPLT 150-400 k/uL [place] Platelet Cnt 233 LAB WMPV 9.0-12.7 fL [place] MPV 9.4 Result Comment: Test performed at: [facility] [place], [address] [place] [address]. LAB ABGRAN 1.45-7.50 k/uL Absol Gran 3.99 Count COMP METABOLIC PANEL Collected: 07/31/2017 Status: F Source: [place] 3:18 PM [facility] REPOSITORY TYPE CODE TESTS RESULT OUT [...] actual GFR. Performed By: #### CMP #### [facility] [address] [place], [place] [address] PROGRESS Observed: 07/31/2017 Status: COMPLETED Source: [place] [address]:37 PM [facility] [place] REPOSITORY HNO ID: [id number] Author: Iron Nguyen Service: (none) Author Type: [...] demonstrated fibroadenoma. Negative for both ER and ND. HER-2 was interpreted as 2+, granular. Subsequent [...] No jaundice or rash. No petechiae. NEUROLOGIC: baggage and mail agent II-XII are grossly intact. No focal motor weakness. The patellar and Achilles DTRs are symmetric and normal. MUSCULOSKELETAL: No muscle wasting or tenderness. ASSESSMENT/PLAN: (C50.511) Breast cancer of lower-outer quadrant of right female breast (HCC) (primary encounter diagnosis) Assessment: -pT1c (1.5 cm; grade 3; no ALI) pN0(sln) MX ER/ND negative, HER-2 nonamplified invasive ductal carcinoma the right breast. -Genetic testing negative. -I don't have all the records from her recent surgical history starting in May but her exam is concerning for possible hepatomegaly/ascites. Plan: -CMP and CT A/P. DO RUSLAN CampOVSP Observed: 07/31/2017 Status: COMPLETED Source: [place] 2:30 PM [facility] REPOSITORY Visit (SP) Office (JATINDER) SHARON BARRAGAN ([id number]) 1970 F Date Time Provider Department 07/31/17 [...] demonstrated fibroadenoma. Negative for both ER and ND. HER-2 was interpreted as 2+, granular. Subsequent [...] No jaundice or rash. No petechiae. NEUROLOGIC: baggage and mail agent II-XII are grossly intact. No focal motor weakness. The patellar and Achilles DTRs are symmetric and normal. MUSCULOSKELETAL: No muscle wasting or tenderness. ASSESSMENT/PLAN: (C50.511) Breast cancer of lower-outer quadrant of right female breast (HCC) (primary encounter diagnosis) Assessment: -pT1c (1.5 cm; grade 3; no ALI) pN0(sln) MX ER/ND negative, HER-2 nonamplified invasive ductal carcinoma the right breast. -Genetic testing negative. -I don't have all the records from her recent surgical history starting in May but her exam is concerning for possible hepatomegaly/ascites. Plan: -CMP and CT A/P. Iron Nguyen DO Referring Provider: IRON NGUYEN [[id number]] Allergies As of Date: 07/31/2017 Noted Allergy Reaction HAYFEVER (HOMEOPATHIC PRODUCTS) 03/07/2006 poultry [Other] 03/07/2006 Comments: Babb, chicken Date Reviewed: 07/31/2017 Reviewed by: She Basilio (Tailings Worker), PSYCH THERAPIST - Fully Assessed Reason for Visit: Established Patient [175] Primary Visit Diagnosis:Malignant neoplasm of lower-outer quadrant of right breast of female, estrogen receptor negative (HCC) [C50.511, Z17.1] Other Visit Diagnoses:Other ascites [R18.8] Abdominal bloating [R14.0] Order(s):CT ABD/PEL W IVCON [[id number]] Order #: [id number] FUTURE iv contrast (will be provided with [...] 0 COMP METABOLIC PANEL [SQCMP] Order #: [id number] FUTURE [place] ABS GRAN CT + CBC [SQWAGCBC] Order #: [id number] FUTURE Follow-up and Disposition History Recorded Prescriptions [...] ATENOLOL 25 MG TABLET >> She Basilio (Tailings Worker), L* 07/31/2017 1:54 PM >> SHE BASILIO [...] [F43.9] INVALID FOR* History of Clostridium difficile [MRO2156] INVALID FOR*02/20/2017 More... Atherosclerosis of aorta (HCC) [I70.0] INVALID FOR* More... Palpitations [R00.2] INVALID FOR* Lymphedema [I89.0] INVALID FOR* Chronic bilateral low back pain with bilateral *INVALID FOR* More... Bilateral plantar fasciitis [M72.2] INVALID FOR* Visit Notes: >> She Basilio (Tailings Worker), PSYCH THERAPIST Mon July 31, 2017 1:56 PM Status: Signed Est pt., 3 month f/u She BasilioESTELLE Encounter Status:Closed by IRON NGUYEN DO on 07/31/17 ALK PHOS ISOENZYME Collected: 07/21/2017 Status: F Source: [place] 1:20 PM [facility] [place] [facility] TYPE CODE TESTS RESULT OUT OF RANGE REFERENCE UNITS LAB L3250.0200 39-117 IU/L High ALK PHOS, S 126 LAB L3250.0300 18-85 % LIVER Normal FRACTION 79 LAB L3250.0400 14-68 % BONE Normal FRACTION 21 LAB L3250.0500 0-18 % Normal INTESTINAL FRAC 0 Result Comment: Performed at: - [facility] [address] [id number] Journeyman Plumber: Vikram Moe PhD, Phone: [phone] Performed By: #### L3250.0100 #### [facility] (refer to report for specific site) refer to report for address and phone number VENOUS DUPLEX UPPER Observed: 06/28/2017 Status: F Source: [place] EXTREMITY 5:32 PM [facility] Cardiovascular Services [address] [place] [address] Venous Duplex US, Unilateral 06/28/17 1340 MR#: [id number] Acct: [id number] Name: SHARON BARRAGAN Rep #: [id number] : 1970 47 From: Josafat Partida MD [...] Date Dictated: 06/28/17 1340 Date Transcribed: 06/28/171730 Receiving Distribution Station Operator: Signed EMERGENCY DEPARTMENT Observed: 06/28/2017 Status: F Source: [place] SUMMARY 5:09 PM [facility] [facility] Medical Records Department [address] [place] [address] Emergency Department Summary 06/28/17 1322 MR#: [id number] Acct: [id number] Name: SHARON BARRAGAN Rep #: [id number] : 1970 47 From: Romeo Jimenes MD [...] strong radial pulse left hand has normal river driver strength and sensation no compartment syndrome. There [...] PICC line. This note was generated with [employer] dictation software. It may contain incorrect words, [...] your Primary Care Provider. Call [facility] ([phone]) or report to the closest Emergency Room. Call 911 if necessary. 06/28/17 5917 <Electronically signed by Romeo Jimenes MD> Date Romeo Jimenes MD Cosigner Signature (If Indicated): Date CC: Josué Price MD DISCHARGE INSTRUCTION Observed: 06/28/2017 Status: F Source: [place] 5:09 PM [facility] Medical Records Department [address] [place] [address] Discharge Instruction 06/28/17 1511 MR#: [id number] Acct: [id number] Name: SHARON BARRAGAN Rep #: [id number] : 1970 47 From: Romeo Jimenes MD [...] your Primary Care Provider. Call [facility] ([phone]) or report to the closest Emergency Room. Call 911 if necessary. 06/28/17 170 <Electronically signed by Romeo Jimenes MD> Date Romeo Jimenes MD Cosigner Signature (If Indicated): Date CC: Josué Price MD OPERATIVE REPORT Observed: 06/14/2017 Status: F Source: [place] 11:09 AM [facility] Medical Records Department [address] [place] [address] Operative Report 05/23/17 1700 MR#: [id number] Acct: [id number] Name: SHARON BARRAGAN Rep #: [id number] : 1970 47 From: Junior Whitman MD PCP: Josué Price MD Status: DIS IN Y Location: MS3 YB762-4 Report of Operation Date of Procedure: 05/23/17 [...] used Geri absorbable hemostat. Reference Number - [id number]. Lot Number - [id number]. Expiration - January 14, 2022. front end developer javascript html css: None Type of Anesthesia:: General Specimen's removed: [...] Yes Code Visit Surgery Charges CPT - 58672 ICD-10 - C50.911, T86.828, F40.298, Z90.13, N65.1, T66.xxxS, L98.499, N65.0 69587 C50.911, T86.828, F40.298, Z90.13, N65.1, T66.xxxS, L98.499, N65.0 95792 C50.911, T86.828, F40.298, Z90.13, N65.1, T66.xxxS, L98.499, N65.0 06/14/17 1109 <Electronically signed by Junior Whitman MD> Date Junior Whitman MD CC: Chris Juárez MD; Junior Whitman MD; Josué Price MD; [facility] Signed PLASTIC SURGERY Observed: 06/13/2017 Status: F Source: [place] VISIT REPORT 1:58 PM [facility] [address] [place] [address] OFFICE VISIT Date of Service: 05/19/17 MR#: [id number] Acct: [id number] Name: SHARON BARRAGAN Rep #: [id number] : 1970 Provider: Junior Whitman MD Age/Sex: 47/F Location: [facility] Status: Signed Intake Vital Signs05/19/17 Respiratory Rate 16 Intake Visit Reasons: postop surgery 05/05/17 and 05/02/17 Pillow Filler Required: No Accompanied by: Mother Is patient [...] occurred. Anticipate the possible need for termite control technician IV antibiotics, so a PICC line will [...] Junior Whitman MD> Date Junior Whitman MD [facility] Signature: Date (if applicable) CC: PLASTIC SURGERY Observed: 06/13/2017 Status: F Source: [place] VISIT REPORT 12:00 AM [facility] [address] [place] [address] OFFICE VISIT Date of Service: 05/18/17 MR#: [id number] Acct: [id number] Name: SHARON BARRAGAN Rep #: [id number] : 1970 Provider: Junior Whitman MD Age/Sex: 47/F Location: [facility] Status: Signed Intake Vital Signs05/18/17 Respiratory Rate 16 Intake Visit Reasons: postop surgery 05/05/17 and 05/02/17 Pillow Filler Required: No Accompanied by: Mother Is patient [...] F Source: [place] VISIT REPORT 12:02 AM [facility] [address] [place] [address] OFFICE VISIT Date of Service: 05/16/17 MR#: [id number] Acct: [id number] Name: SHARON BARRAGAN Rep #: [id number] : 1970 Provider: Junior Whitman MD Age/Sex: 47/F Location: [facility] Status: Signed Intake Vital Signs05/16/17 Respiratory Rate 16 Intake Visit Reasons: postop surgery 05/05/17 and 05/02/17 Pillow Filler Required: No Accompanied by: Mother Is patient [...] PLASTIC SURGERY Observed: 06/11/2017 Status: F Source: [place] VISIT REPORT 11:53 PM [facility] [address] [place] [address] OFFICE VISIT Date of Service: 05/15/17 MR#: [id number] Acct: [id number] Name: SHARON BARRAGAN Rep #: [id number] : 1970 Provider: Junior Whitman MD Age/Sex: 47/F Location: [facility] Status: Signed Intake Vital Signs05/15/17 Respiratory Rate 16 Intake Visit Reasons: postop surgery 05/05/17 and 05/02/17 Pillow Filler Required: No Accompanied by: Mother Is patient [...] PLASTIC SURGERY Observed: 06/11/2017 Status: F Source: [place] VISIT REPORT 10:05 PM [facility] [address] [place] [address] OFFICE VISIT Date of Service: 05/12/17 MR#: [id number] Acct: [id number] Name: SHARON BARRAGAN Rep #: [id number] : 1970 Provider: Junior Whitman MD Age/Sex: 47/F Location: [facility] Status: Signed Intake Vital Signs05/12/17 Respiratory Rate 16 Intake Visit Reasons: postop surgery 05/05/17 and 05/02/17 Pillow Filler Required: No Accompanied by: Mother Is patient [...] F Source: [place] VISIT REPORT 1:59 AM [facility] [address] [place] [address] OFFICE VISIT Date of Service: 05/11/17 MR#: [id number] Acct: [id number] Name: SHARON BARRAGAN Rep #: [id number] : 1970 Provider: Junior Whitman MD Age/Sex: 47/F Location: [facility] Status: Signed Intake Vital Signs05/11/17 Height 5 ft 05/11/17 Weight: 179 lb Intake Visit Reasons: postop surgery 05/05/17 and 05/02/17 Pillow Filler Required: No Accompanied by: Mother Is patient [...] OPERATIVE REPORT Observed: 06/05/2017 Status: F Source: [place] 12:23 AM [facility] Medical Records Department [address] [place] [address] [place] [address] Operative Report 05/05/17 1834 MR#: [id number] Acct: [id number] Name: SHARON BARRAGAN Rep #: [id number] : 1970 47 From: Junior Whitman MD PCP: Josué Price MD Status: DIS IN Y Location: [facility] [id number] ADDENDUM by Junior Whitman MD on 06/05/17 at 0023 Code Visit Surgery Charges CPT - 21030 ICD-10 - C50.911, L76.32, N64.89, Z90.13, T66.xxxS, [...] patient voices understanding and wishes to proceed. front end developer javascript html css: None Type of Anesthesia:: General Specimen's removed: [...] OPERATIVE REPORT Observed: 06/05/2017 Status: F Source: [place] 12:19 AM [facility] Medical Records Department [address] [place] [address] Operative Report 05/02/17 2155 MR#: [id number] Acct: [id number] Name: SHARON BARRAGAN Rep #: [id number] : 1970 47 From: Junior Whitman MD PCP: Josué Price MD Status: DIS IN Y Location: [facility] [id number] ADDENDUM by Junior Whitman MD on 06/05/17 at 0019 Code Visit Surgery Charges CPT - 34340 ICD-10 - C50.911, F40.298, Z90.13, N65.1, N65.0, T66.xxxS, Z17.1, Z87.891 84122 C50.911, Z90.13, N65.0, T66.xxxS, N65.1, F40.298, Z17.1, Z87.891 09235 C50.911, Z90.13, N65.0, T66.xxxS, N65.1, F40.298, Z17.1, [...] x 10 cm, firm). Reference Number - [id number]. Lot Number - [id number]. Expiration - June 17, 2018. I used Geri absorbable hemostat (I used 3 vials, 1 1/2 in the breast and 1 1/2 in the abdomen). Reference Number - [id number]. Lot Number - [id number]. Expiration - January 14, 2022. front end developer javascript html css: Jj Jonas. front end developer javascript html css: Leigh Ann Brush. Type of Anesthesia:: General [...] defect on the left using 0 Surgipro gljafw-pg-gjouy interrupted sutures. I also placed horizontal sutures [...] wall in multiple layers using 2-0 Vicryl oxcszl-tx-nbbys interrupted sutures for Melani's fascia layer. The [...] DISCHARGE SUMMARY Observed: 05/27/2017 Status: F Source: [place] 3:53 PM [facility] Medical Records Department [address] [place] [address] Discharge Summary 05/25/17 1128 MR#: [id number] Acct: [id number] Name: SHARON BARRAGAN Rep #: [id number] : 1970 47 From: Junior Whitman MD PCP: Josué Price MD Status: DIS IN Y Location: [facility] [id number] Discharge Date and Diagnosis Date of Admission: [...] Jin Kingston MD at 11:02 EST Tel [phone], Service support , Chest X-Ray 05/24/17 10:03 IMPRESSION: Findings suggestive of postoperative changes in the right breast. Increased markings at the lung bases worse on the right side suggestive bibasilar atelectasis. Electronically Signed: Jin [place] MD at 11:22 EST Tel [phone], Service support , Consultations 05/19/17 14:23 Consult: Onc/Wound/stringed instrument repairer Routine Comment: Reason for Consult:: right breast [...] Up With: Junior Whitman MD - call [phone] if any questions. When: monday05/30/17 at wound center at 130 pm. Meaningful Use Info Meaningful Use Diagnoses (Choose all that apply): None applicable 05/27/17 0063 <Electronically signed by Junior Whitman MD> Date Junior Whitman MD Cosigner Signature (if applicable): Date CC: Chris Juárez MD; Junior Whitman MD; Josué Price MD; [facility] Signed DISCHARGE INSTRUCTION Observed: 05/25/2017 Status: F Source: [place] 11:28 AM [facility] Medical Records Department [address] [place] [address] Instructions for Home/Discharge Instructions 05/25/17 1120 MR#: [id number] Acct: [id number] Name: ROCKSHARON E Rep #: [id number] : 1970 47 From: Junior Whitman MD [...] Please fax results to Wound Center at [phone]. Pharmacy to dose the Vancomycin. Allergies/Adverse Reactions: [...] Up With: Junior Whitman MD - call [phone] if any questions. When: [facility]05/30/[facility]. Proposed Discharge Date: 05/25/17 05/25/17 1128 <Electronically signed by Junior Whitman MD> Date Junior Whitman MD CC: Chris Juárez MD; Josué Price MD; [facility] ABDOMEN/PELVIS WITHOUT Observed: 05/24/2017 Status: F Source: [place] CONT 10:05 AM [facility] Imaging Services [address] [place] [address] Abdomen/Pelvis without Cont MR#: [id number] Acct: [id number] Name: SHARON BARRAGAN Rep #: [id number] : 1970 F 47 From: Jin Kingston MD PCP: Josué Price MD Status: ADM IN Study: Abdomen/Pelvis without Cont Date of Exam: 05/24/17 Exam# [id number] Ordering Dr: Junior Whitman MD STUDY: CT [...] Jin Kingston MD at 11:02 EST Tel [phone], Service support , CC: Junior Whitman MD; Josué Price MD Receiving Distribution Station Operator: Signed CHEST PA AND LATERAL Observed: 05/24/2017 Status: F Source: [place] 10:05 AM [facility] Imaging Services [address] [place] [address] Chest PA and Lateral MR#: [id number] Acct: [id number] Name: SHARON BARRAGAN Rep #: [id number] : 1970 F 47 From: Jin [place] MD PCP: Josué Price MD Status: ADM IN Study: Chest PA and Lateral Date of Exam: 05/24/17 Exam# [id number] Ordering Dr: Junior Whitman MD STUDY: X-RAY [...] Jin [place] MD at 11:22 EST Tel [phone], Service support , CC: Junior Whitman MD; Josué Price MD Receiving Distribution Station Operator: Signed VANCOMYCIN, TROUGH Collected: 05/24/2017 Status: F Source: [place] LEVEL 8:20 AM [facility] TYPE CODE TESTS RESULT OUT OF REFERENCE UNITS RANGE LAB L501.8820 5.0-15.0 ug/mL High VANCO, TROUGH 19.1 Result Comment: VANCOMYCIN STANDARED DRUG THERAPY TROUGH LEVEL: 5.0 - 15.0 mg/L VANCOMYCIN HIGH INTENSITY THERAPY TROUGH LEVEL: 15.0 - 20.0 mg/L High Intensity therapy recommended for serious life threatening infections include: - Meningitis -Endocarditis -Pneumonia (Ventilator/Healtcare Associated) -Sepsis PLEASE CONTACT PHARMACY SERVICES (#[id number]) FOR INTERPRETATION OF RESULTS. Performed By: #### L501.8820 #### [facility] [address] [place], [place], [address] CBC-COMPLETE BLOOD CNT Collected: 05/24/2017 Status: F Source: [place] NO DIFF 4:25 AM [facility] Order Comment: SPECIMEN OBTAINED FROM LINE [...] MPV 8.4 Performed By: #### L100.0500 #### [facility] [address] [place], [address] BASIC METABOLIC Collected: 05/24/2017 Status: F Source: [place] PROFILE (BMP) 4:25 AM [facility] Order Comment: SPECIMEN OBTAINED FROM LINE [...] 8 Performed By: #### L500.2500 #### [place] [facility] [address] [place], [address] [employer] Observed: 05/23/2017 Status: F Source: [place] CULT/SMEAR [id number] 11:23 AM [facility] REPOSITORY Comments: #1- COLLECTED IN OR- [...] WEEKS. Performed By: #### M100.3880 #### [place] [facility] [address] [place], [address] Observed: 05/23/2017 Status: F Source: [place] CULTURE, DEEP WOUND 11:20 AM [facility] Order Date: 10/19/16 Comments: #1- COLLECTED [...] 1 S (NF) indicates non-formulary drug at [facility]. Approval by Infectious Disease [...] <=20 S (NF) indicates non-formulary drug at [facility]. Approval by Infectious Disease Specialist required before non-formulary drugs may be ordered and/or dispensed. Cult, Anaerobic No anaerobic bacteria isolated. Performed By: #### M100.1500 #### [facility] [address] [place], [address] Observed: 05/23/2017 Status: F Source: [place] LINK 11:20 [facility] [id number] REPOSITORY Comments: COLLECTED IN OR, RIGHT BREAST RECONSTRUCTED TRAM Is this test to exclude patient from TB Isolation? N Cu,[id number] [facility] AT [facility]. ORIGINAL REPORT ON FILE IN LAB CONTAINS ADDITIONAL TEST SITE INFORMATION. CUF No yeast or mold isolated after [address] TESTING PERFORMED AT [facility]. ORIGINAL REPORT ON FILE IN LAB CONTAINS ADDITIONAL TEST SITE INFORMATION. Fungus Stain No yeast or mold observed. Performed By: #### M600.1900 #### [facility] [address] [facility] [place], [place], [address] CBC-COMPLETE BLOOD CNT Collected: 05/23/2017 Status: F Source: [place] NO DIFF 4:35 AM [facility] TYPE CODE TESTS RESULT OUT OF [...] 8.3 Performed By: #### L100.0500, L101.9900 #### [facility] [address] [place], [address] ERYTHROCYTE SED RATE Collected: 05/23/2017 Status: F Source: [place] 4:35 AM [facility] TYPE CODE TESTS RESULT OUT OF RANGE REFERENCE UNITS LAB L102.0000 0-20 mm/hr High SED RATE 49 Performed By: #### L100.0500, L101.9900 #### [facility] [address] [place], [address] COMPREHENSIVE METABOLIC Collected: 05/23/2017 Status: F Source: [place] [facility] 4:35 AM [facility] TYPE CODE TESTS RESULT OUT OF [...] 8 Performed By: #### L500.4050, L501.6710 #### [facility] [address] [place], [address] CRP Collected: 05/23/2017 Status: F Source: [place] 4:35 AM [facility] TYPE CODE TESTS RESULT OUT OF RANGE REFERENCE UNITS LAB L501.6710 0.0-3.0 mg/L High 87.10 C-REACTIVE PROT Result Comment: C-Reactive Protein (CRP) provides useful information for the diagnosis, therapy and monitoring of inflammatory processes and associated diseases. For the evaluation of Relative Risk for Cardiovascular Disease, a High Sensitivity CRP (HSCRP) should be ordered. Performed By: #### L500.4050, L501.6710 #### [facility] [address] [place], [address] BREAST MASTECTOMY Observed: 05/23/2017 Status: F Source: [place] (CHOOSE SIDE 12:00 AM [facility] Patient: SHARON BARRAGAN : 1970 (47/F) Acct Num: [id number] Phys: Junior Whitman MD Unit Num: [id number] Loc: MS3 HD395-5 Specimen: [id number] Received: 05/23/17 - 1439 Spec [...] tissue show congested and hemorrhagic cut surfaces. Bi Technical Lead sections are submitted in six cassettes. / JOHNIE:sharon 05/23 TC:2 CPT: 31023 HEADER OPERATION: Breast reconstruction, excisional debridement PRE-OP [...] on file> Performed By: #### PBREAST #### [facility] [address] [facility] [place], [place], [address] CBC-COMPLETE BLOOD CNT Collected: 05/20/2017 Status: F Source: [place] NO DIFF 9:56 AM [facility] TYPE CODE TESTS RESULT OUT OF [...] MPV 8.4 Performed By: #### L100.0500 #### [facility] [address] [facility] [place], [place], [address] MRSA WOUND DNA BY Collected: 05/19/2017 Status: F Source: [place] PCR 2:15 PM [facility] TYPE CODE TESTS RESULT OUT OF RANGE REFERENCE UNITS LAB L8200.1100 Negative Normal MRSA Negative RESULT LAB L8200.1150 Negative Normal SA RESULT NEGATIVE Performed By: #### L8200.1075 #### [facility] [address] [place], [address] Observed: 05/19/2017 Status: F Source: [place] CULTURE, DEEP WOUND 2:15 PM [facility] Comments: right breast wound Gram Stain [...] 2 S (NF) indicates non-formulary drug at [facility]. Approval by Infectious Disease [...] <=0.5 S (NF) indicates non-formulary drug at [facility]. Approval by Infectious Disease Specialist required before non-formulary drugs may be ordered and/or dispensed. * CLSI guidelines does not recommend testing of cephalosporins. This interpretation is deduced from Beta-lactam/penicillin results. Cult, Anaerobic No anaerobic bacteria isolated. Performed By: #### M100.1500 #### [facility] [address] [place], [address] COMPREHENSIVE METABOLIC Collected: 05/19/2017 Status: F Source: [place] LOCKE 12:55 PM [facility] TYPE CODE TESTS RESULT OUT OF [...] Performed By: #### L500.4050, L501.6710, L506.0500 #### [facility] [address] [place], [address] CRP Collected: 05/19/2017 Status: F Source: [place] 12:55 PM [facility] TYPE CODE TESTS RESULT OUT OF RANGE REFERENCE UNITS LAB L501.6710 0.0-3.0 mg/L High 41.80 C-REACTIVE PROT Result Comment: C-Reactive Protein (CRP) provides useful information for the diagnosis, therapy and monitoring of inflammatory processes and associated diseases. For the evaluation of Relative Risk for Cardiovascular Disease, a High Sensitivity CRP (HSCRP) should be ordered. Performed By: #### L500.4050, L501.6710, L506.0500 #### [facility] [address] [facility] [place], [address] PREALBUMIN Collected: 05/19/2017 Status: F Source: [place] 12:55 PM [facility] TYPE CODE TESTS RESULT OUT OF REFERENCE UNITS RANGE LAB L506.0500 20.0-40.0 mg/dL Low PREALBUMIN 19.4 Performed By: #### L500.4050, L501.6710, L506.0500 #### [facility] [address] [place], [address] ERYTHROCYTE SED RATE Collected: 05/19/2017 Status: F Source: [place] 12:55 PM [facility] TYPE CODE TESTS RESULT OUT OF RANGE REFERENCE UNITS LAB L102.0000 0-20 mm/hr High SED RATE 57 Performed By: #### L101.9900, L100.0500 #### [facility] [address] [place], [address] CBC-COMPLETE BLOOD CNT Collected: 05/19/2017 Status: F Source: [place] NO DIFF 12:55 PM [facility] TYPE CODE TESTS RESULT OUT OF [...] 8.5 Performed By: #### L101.9900, L100.0500 #### [facility] [address] [place], [address] Observed: 05/15/2017 Status: F Source: [place] CULTURE, SURGERY DEEP 7:18 PM [facility] List Antibiotics Last 48 Hours? Doxycycline List Antibiotics to be Started? N Gram Stain Gram Stain 1+ White Blood Cells No organisms seen Wound Culture No growth aerobically. Cult, Anaerobic No growth in 5 days. Performed By: #### M100.1550 #### [facility] [address] [place], [address] DISCHARGE SUMMARY Observed: 05/14/2017 Status: F Source: [place] 11:59 AM [facility] Medical Records Department [address] [place] [address] Discharge Summary 05/10/17 1511 MR#: [id number] Acct: [id number] Name: SHARON BARRAGAN Rep #: [id number] : 1970 47 From: Junior [place] MD PCP: Josué Price MD Status: DIS IN Y Location: [facility] [id number] Discharge Date and Diagnosis Date of Admission: [...] Up With: Junior Whit[place] MD - call [phone] if questions. When: tomorrow 05/11/17 at 1100 [...] PLASTIC SURGERY Observed: 05/13/2017 Status: F Source: [place] VISIT REPORT 9:05 AM [facility] [address] [place] [address] OFFICE VISIT Date of Service: 04/05/17 MR#: [id number] Acct: [id number] Name: SHARON BARRAGAN Rep #: [id number] : 1970 Provider: Junior [place] MD Age/Sex: 47/F Location: [facility] Status: Signed Intake Vital Signs04/05/17 Height 5 ft 04/05/17 Weight: 172 lb 2 oz Intake Visit Reasons: evaluation breast reconstruction Pillow Filler Required: No Accompanied by: None Is patient [...] reconstruction with placement of the saline tissue safety fire boss. At the time of removal of the safety fire boss with replacement cohesive gel implant, we can [...] MD PROGRESS Observed: 05/12/2017 Status: COMPLETED Source: [place] 9:04 AM [facility] [place] REPOSITORY O ID: [id number] Author: Alejandra Bajwa (Sw) Service: (none) Author Type: Assistant Loan Processor Type: Progress Notes Filed: 05/12/2017 9:05 AM [...] 05/10/2017 Status: F Source: [place] 3:11 PM [facility] Medical Records Department [address] [place] [address] Instructions for Home/Discharge Instructions 05/10/17 1503 MR#: [id number] Acct: [id number] Name: SHARON BARRAGAN Rep #: [id number] : 1970 47 From: Junior Whitman MD [...] Up With: Junior Whit[place] MD - call [phone] if questions. When: tomorrow 05/11/17 at 1100 am. Proposed Discharge Date: 05/10/17 05/10/17 9511 <Electronically signed by Junior [place] MD> Date Junior Whitman MD CC: Josué Price MD PROGRESS Observed: 05/10/2017 Status: COMPLETED Source: [place] 12:14 PM [facility] RE[facility] HNO ID: [id number] Author: Alejandra Bajwa (Sw) Service: (none) Author Type: Assistant Loan Processor Type: Progress Notes Filed: 05/10/2017 12:16 PM [...] BLOOD CNT Collected: 05/06/2017 Status: F Source: [place] NO DIFF 7:15 AM [facility] TYPE CODE TESTS RESULT OUT OF [...] MPV 8.6 Performed By: #### L100.0500 #### [facility] [address] [place], [address] BASIC METABOLIC Collected: 05/06/2017 Status: F Source: [place] PROFILE (BMP) 7:15 AM [facility] TYPE CODE TESTS RESULT OUT OF [...] GAP 9 Performed By: #### L500.2500 #### [facility] [address] [place], [address] HEMOGLOBIN Collected: 05/05/2017 Status: F Source: [place] 8:25 PM [facility] TYPE CODE TESTS RESULT OUT OF RANGE REFERENCE UNITS LAB L100.1300 12.0-15.0 g/dl Low HGB 10.2 Performed By: #### L100.1300 #### [facility] [address] [place], [address] TYPE AND SCREEN Collected: 05/05/2017 Status: F Source: [place] 9:05 AM [facility] Order Comment: CMV NEG? N Number [...] NEGATIVE Screen Performed By: #### B101.7450 #### [facility] [place], [address] Collected: 05/05/2017 Status: F Source: [place] 9:05 AM [facility] TYPE CODE TESTS RESULT OUT OF REFERENCE UNITS RANGE LAB U100.0000 [id number] TRANSFUSED PRODUCT: T AND S with Crossmatch, Red Cells COUNT: 2 Performed By: #### U100.0000 #### [facility] - refer to report for specific site CBC-COMPLETE BLOOD CNT Collected: 05/05/2017 Status: F Source: [place] NO DIFF 6:33 AM [facility] TYPE CODE TESTS RESULT OUT OF [...] MPV 8.7 Performed By: #### L100.0500 #### [facility] [address] [place], [place], [address] BASIC METABOLIC Collected: 05/05/2017 Status: F Source: [place] PROFILE (BMP) 6:33 AM [facility] TYPE CODE TESTS RESULT OUT OF [...] GAP 7 Performed By: #### L500.2500 #### [facility] [address] [facility] [address] [place], [place], [address] CBC-COMPLETE BLOOD CNT Collected: 05/04/2017 Status: F Source: [place] NO DIFF 6:25 AM [facility] TYPE CODE TESTS RESULT OUT OF [...] MPV 9.0 Performed By: #### L100.0500 #### [facility] [address] [facility] [place], [address] HISTORY AND PHYSICAL Observed: 05/03/2017 Status: F Source: [place] EXAM 11:30 PM [facility] Medical Records Department [address] [place] [address] History and Physical 05/01/17 1807 MR#: [id number] Acct: [id number] Name: SHARON BARRAGAN Rep #: [id number] : 1970 47 From: Junior [place] MD PCP: Josué Price MD Status: ADM IN Location: [place] [address]-1 History and Physical Date of Admission: 05/02/17 [...] reconstruction with placement of the saline tissue safety fire boss. At the time of removal of the safety fire boss with replacement cohesive gel implant, we can [...] smoking after her breast cancer diagnosis. 05/03/17 3170 <Electronically signed by Junior [place] MD> Date Junior Whitman MD Cosigner Signature: Date (if applicable) CC: Junior Whitman MD; Josué Price MD Signed CBC-COMPLETE BLOOD CNT Collected: 05/03/2017 Status: F Source: [place] NO DIFF 6:36 AM [facility] TYPE CODE TESTS RESULT OUT OF [...] MPV 9.0 Performed By: #### L100.0500 #### [facility] [address] [place], [address] BASIC METABOLIC Collected: 05/03/2017 Status: F Source: [place] PROFILE (BMP) 6:36 AM [facility] TYPE CODE TESTS RESULT OUT OF [...] 7 Performed By: #### L500.2500, L506.0500 #### [facility] [address] [place], [address] PREALBUMIN Collected: 05/03/2017 Status: F Source: [place] 6:36 AM [facility] [place] CODE TESTS RESULT OUT OF REFERENCE UNITS RANGE LAB L506.0500 20.0-40.0 mg/dL Low PREALBUMIN 19.5 Performed By: #### L500.2500, L506.0500 #### [facility] [address] [place], [address] BEDSIDE GLUCOSE Collected: 05/03/2017 Status: F Source: [place] 12:06 AM [facility] [place] TYPE CODE TESTS RESULT OUT OF REFERENCE UNITS RANGE LAB L501.080 70-110 mg/dL High BEDSIDE GLU 164 Result Comment: MANAGEMENT OF PATIENT CARE PER NURSING PROTOCOL Performed By: #### L501.080 #### [facility] Point of Care [address] [place] [address] CBC W/DIFF, AUTOMATED Collected: 05/03/2017 Status: F Source: [place] 12:05 AM [facility] [place] TYPE CODE TESTS RESULT OUT OF [...] Lymph 0.39 Performed By: #### L100.0100 #### [facility] [address] [place], [address] BREAST MASTECTOMY Observed: 05/02/2017 Status: F Source: [place] (CHOOSE SIDE 12:00 AM [facility] [place] Patient: SHARON BARRAGAN : 1970 (47/F) Acct Num: [id number] Phys: Junior Whitman MD Unit Num: [id number] Loc: MS2 [id number] Specimen: [id number] Received: 05/03/17 - 2188 Spec Type: BREAST TISSUES TISSUES: Right breast, NOS COMMENT Reference is made to the patient s right breast ultrasound- guided needle core biopsy from 12/11/15 ([id number]) in which invasive ductal carcinoma was identified. [...] Serial sections do not reveal mass lesions. Bi Technical Lead sections are submitted in five cassettes. / AM:sharon 05/03/17 TC:5 CPT: 00445 HEADER OPERATION: Delayed breast reconstruction, tram flap PRE-OP DIAGNOSIS: Acquired absence bilateral breasts; disproportion reconstructed breast TISSUE SUBMITTED: Right breast tissue FIXATION TIME: 12 hours MICROSCOPIC DESCRIPTION Slides are reviewed. MICROSCOPIC DIAGNOSIS Right breast, reconstruction: Dense collagenized stroma. Focal reactive and degenerative skeletal muscle change. No evidence of malignancy. AM:sharon 05/04/17 Signed Lee Trujillo 05/04/17 <signature on file> Performed By: #### PBREAST #### [facility] [address], [address] CNOVSP Observed: 05/01/2017 Status: COMPLETED Source: [place] 4:30 PM [facility] REPOSITORY Visit (SP) Office (JATINDER) SHARON BARRAGAN ([id number]) 1970 F Date Time Provider Department 05/01/17 [...] demonstrated fibroadenoma. Negative for both ER and ND. HER-2 was interpreted as 2+, granular. Subsequent [...] has no respiratory symptoms. 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 No petechiae. NEUROLOGIC: baggage and mail agent II-XII are grossly intact. No focal motor weakness. The patellar and Achilles DTRs are symmetric and normal. MUSCULOSKELETAL: No muscle wasting or tenderness. ASSESSMENT/PLAN: (C50.511) Breast cancer of lower-outer quadrant of right female breast (HCC) (primary encounter diagnosis) Assessment: -pT1c (1.5 cm; grade 3; no ALI) pN0(sln) MX ER/ND negative, HER-2 nonamplified invasive ductal carcinoma the right breast. -Currently no concerning symptoms or exam findings. -She will be undergoing right-sided TRAM flap tomorrow. Plan: -OV in 3 months. Iron Nguyen DO Referring Provider: IRON NGUYEN [[id number]] Allergies As of Date: 05/01/2017 Noted Allergy Reaction HAYFEVER (HOMEOPATHIC PRODUCTS) 03/07/2006 poultry [Other] 03/07/2006 Comments: Babb, chicken Date Reviewed: 05/01/2017 Reviewed by: Alexa [...] [F43.9] INVALID FOR* History of Clostridium difficile [LVE5251] INVALID FOR*02/20/2017 More... Atherosclerosis of aorta (HCC) [I70.0] INVALID FOR* More... Palpitations [R00.2] INVALID FOR* Lymphedema [I89.0] INVALID FOR* Chronic bilateral low back pain with bilateral *INVALID FOR* More... Bilateral plantar fasciitis [M72.2] INVALID FOR* Encounter Status:Closed by IRON NGUYEN DO on 05/01/17 PROGRESS Observed: 05/01/2017 Status: COMPLETED Source: [place] 4:16 PM [facility] [place] REPOSITORY O ID: [id number] Author: Iron Nguyen Service: (none) Author Type: [...] demonstrated fibroadenoma. Negative for both ER and ND. HER-2 was interpreted as 2+, granular. Subsequent [...] has no respiratory symptoms. 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 No petechiae. NEUROLOGIC: baggage and mail agent II-XII are grossly intact. No focal motor weakness. The patellar and Achilles DTRs are symmetric and normal. MUSCULOSKELETAL: No muscle wasting or tenderness. ASSESSMENT/PLAN: (C50.511) Breast cancer of lower-outer quadrant of right female breast (HCC) (primary encounter diagnosis) Assessment: -pT1c (1.5 cm; grade 3; no ALI) pN0(sln) MX ER/ND negative, HER-2 nonamplified invasive ductal carcinoma the right breast. -Currently no concerning symptoms or exam findings. -She will be undergoing right-sided TRAM flap tomorrow. Plan: -OV in 3 months. Iron Nguyen DO PROGRESS Observed: 05/01/2017 Status: COMPLETED Source: [place] 3:52 PM [facility] [place] REPOSITORY HNO ID: [id number] Author: Alejandra Gudino) Garett Service: (none) Author Type: Assistant Loan Processor Type: Progress Notes Filed: 05/01/2017 3:54 PM Note Text: Social Work Problem Referral Note INFORMATION/REFERRAL : Sharon Barragan 47 year old female was referred by [facility] Social Work for the following reason(s): [...] F Source: [place] NO [place] 9:15 AM [facility] [place] TYPE CODE TESTS RESULT OUT OF [...] MPV 9.0 Performed By: #### L100.0500 #### [facility] [address] [place], [address] PROTHROMBIN TIME W/INR Collected: 04/25/2017 Status: F Source: [place] 9:15 AM [facility] [place] TYPE CODE TESTS RESULT OUT OF RANGE REFERENCE UNITS LAB L300.4150 11.7-14.9 SECONDS Normal PROTIME 12.4 LAB L300.4200 Normal INR 1.0 Performed By: #### L300.3900, L300.4310 #### [facility] [address] [place], [address] PARTIAL THROMBOPLAST Collected: 04/25/2017 Status: F Source: [place] TIME 9:15 AM [facility] [place] TYPE CODE TESTS RESULT OUT OF RANGE REFERENCE UNITS LAB L300.4310 24.1-36.2 Seconds Normal PTT 26.4 Performed By: #### L300.3900, L300.4310 #### [facility] [address] [place], [address] ALLERGIES ALLERGIES DATE TYPE / CODE NAME / CODE REACTION SEVERITY SOURCE Drug cat Lips throat [place] [address] Allergy/062550017( dander/[id number] swole [facility] SNOMED CT) 6(RXNORM) Hospital Repository Miscellaneous FIBERGLASS SEVERE ITCHING [place] 9 Allergy/857413089( AND RASH [facility] SNOMED CT) Hospital Repository Miscellaneous POULTRY Anaphylaxis Unknown [place] 9 Allergy/661338295( [facility] SNOMED CT) Hospital Repository DRUG/[id number](SNO HOMEOPATHIC [address]) PRODUCTS [facility] [place] Repository Miscellaneous OTHER [place] 6 Allergy/163863616( [facility] SNOMED [facility]) [place] Repository ENCOUNTERS ENCOUNTERS ADMIT/DISCHARGE ACCOUNT NUMBER ADMITTING ENCOUNTER LOCATION SOURCE CLASS 04/12/2018 [id number] Ambulatory [facility] ding:MTRAD Repository 04/12/2018/04/12/19 [id number] Ambulatory BMSBuilding: [place] 19 B[facility] Repository 04/11/2018 [id number] Ambulatory [facility] ding:PSN Repository 04/09/2018/04/09/19 [id number] Emergency [address] ding:ED Repository 04/06/2018/04/06/19 [id number] Ambulatory BMSBuilding: [place] [address] Repository 04/02/2018 [id number] Ambulatory [facility] ding:MTLAB Repository 03/29/2018/03/29/19 [id number] Ambulatory BMSBuilding: [place] 19 BMS.[facility] Repository 03/21/2018/03/21/19 [id number] Ambulatory BMSBuilding: [place] [address] Repository 03/10/2018/03/10/20 [id number] Emergency [address] ding:ED Repository 03/05/2018 [id number] Ambulatory BMSBuilding: [place] BMS.[facility] Repository 03/01/2018/03/01/20 [id number] Ambulatory BMSBuilding: [place] [address] Repository 02/12/2018/02/13/20 [id number] Ambulatory BMSBuilding: [place] [address] Repository 02/05/2018/02/06/20 [id number] Ambulatory BMSBuilding: [place] [address] Repository 01/31/2018/02/01/20 [id number] Ambulatory BMSBuilding: [place] [address] Repository 01/31/2018 [id number] Ambulatory [facility] ding:MTLAB Repository 01/31/2018/02/02/20 [id number] Ambulatory [address] Repository 01/28/2018 [id number] Ambulatory [facility] ding:WC Repository 01/24/2018/01/26/20 [id number] Junior Whitman Ambulatory [address] ding:YI0Kpdb Repository : GP097Hyg: 1 01/24/2018 [id number] Junior Whitman Ambulatory BMSBuilding: [place] BMS.CF.[facility] Repository 01/24/2018 [id number] Junior Whitman Ambulatory BMSBuilding: [place] BMS.CF.[facility] Repository 01/24/2018 [id number] Junior Whitman Ambulatory BMSBuilding: [place] BMS.CF.[facility] Repository 01/24/2018 [id number] Junior Whitman Ambulatory BMSBuilding: [place] BMS.CF.[facility] Repository 01/18/2018/01/19/20 [id number] Ambulatory BMSBuilding: [place] 18 BMS.[facility] Repository 01/16/2018 [id number] Ambulatory BMSBuilding: [facility] Repository 01/05/2018/01/18/20 [id number] Ambulatory [address] ding:WC Repository 01/04/2018 [id number] Ambulatory BMSBuilding: [facility] Repository 01/04/2018 [id number] [facility] 01/03/2018 [id number] Ambulatory BMSBuilding: [facility] Repository 12/29/2017 [id number] Ambulatory BMSBuilding: [place] BMS.CF.[facility] Repository 12/27/2017 [id number] [facility] [place] [facility] 12/21/2017/12/22/19 [id number] Ambulatory BMSBuilding: [place] [address] Repository 12/20/2017 [id number] Ambulatory BMSBuilding: [facility] Repository 12/19/2017 [id number] Ambulatory BMSBuilding: [place] BMS.CF.[facility] Repository 12/15/2017/12/18/19 [id number] Ambulatory [address] ding:WC Repository 12/14/2017/12/15/19 [id number] Emergency [address] ding:ED Repository 12/14/2017 [id number] Ambulatory BMSBuilding: [place] BMS.CF.[facility] Repository 12/13/2017 [id number] Ambulatory BMSBuilding: [place] BMS.CF.[facility] Repository 12/07/2017 [id number] Ambulatory BMSBuilding: [place] BMS.CF.[facility] Repository 11/30/2017 [id number] Ambulatory BMSBuilding: [place] BMS.CF.[facility] Repository 11/29/2017 [id number] Ambulatory BMSBuilding: [place] BMS.CF.[facility] Repository 11/23/2017/11/24/19 [id number] Ambulatory BMSBuilding: [place] [address] Repository 11/22/2017 [id number] Ambulatory BMSBuilding: [place] BMS.CF.[facility] Repository 11/13/2017/11/18/19 [id number] Ambulatory [address] ding: Repository 11/08/2017 [id number] Ambulatory BMSBuilding: [place] BMS.CF.[facility] Repository 11/06/2017 [id number] Ambulatory BMSBuilding: [place] BMS.CF.[facility] Repository 10/31/2017/11/01/19 [id number] Ambulatory [address] Repository 10/31/2017/11/02/19 [id number] Ambulatory [address] Repository 10/30/2017/10/31/19 [id number] Ambulatory [address] Repository 10/26/2017 [id number] Ambulatory BMSBuilding: [place] BMS.CF.[facility] Repository 10/25/2017 [id number] Ambulatory BMSBuilding: [place] BMS.CF.[facility] Repository 10/19/2017 [id number] Ambulatory BMSBuilding: [place] BMS.CF.[facility] Repository 10/18/2017/10/19/19 [id number] Ambulatory BMSBuilding: [place] [address] Repository 10/18/2017 [id number] Ambulatory BMSBuilding: [place] BMS.CF.[facility] Repository 10/12/2017/10/18/19 [id number] Ambulatory [address] ding: Repository 10/12/2017 [id number] Ambulatory [facility] ding:PSN Repository 10/12/2017 [id number] Ambulatory BMSBuilding: [place] [facility] Repository 10/10/2017/10/11/19 [id number] Ambulatory [address] Repository 10/10/2017/10/12/19 [id number] Ambulatory [address] Repository 10/09/2017 [id number] Ambulatory BMSBuilding: [place] BMS.CF.[facility] Repository 10/07/2017/10/08/19 [id number] Emergency [address] ding:ED Repository 10/05/2017 [id number] Ambulatory BMSBuilding: [place] BMS.CF.[facility] Repository 10/04/2017 [id number] Ambulatory BMSBuilding: [place] BMS.CF.[facility] Repository 09/27/2017/09/28/19 [id number] Ambulatory BMSBuilding: [place] [address] Repository 09/19/2017/09/26/19 [id number] Junior Whitman Inpatient [address] ding:RB3Mznq Repository : UQ572Qok: 1 09/19/2017 [id number] Junior Whitman Ambulatory BMSBuilding: [place] BMS.CF.[facility] Repository 09/19/2017 [id number] Junior Whitman Ambulatory BMSBuilding: [place] BMS.CF.[facility] Repository 09/19/2017 [id number] Junior Whitman Ambulatory BMSBuilding: [place] BMS.CF[facility] Repository 09/19/2017 [id number] Junior Whitman [facility] [place] [facility] 09/07/2017/09/17/19 [id number] Ambulatory [address] ding:WC Repository 08/31/2017 [id number] Ambulatory BMSBuilding: [place] BMS.CF.[facility] Repository 08/30/2017/08/31/19 [id number] Ambulatory BMSBuilding: [place] [address] Repository 08/24/2017/08/26/19 [id number] Ambulatory [address] Repository 08/22/2017 [id number] [facility] Repository 08/22/2017 [id number] [facility] 08/17/2017/08/18/19 [id number] Ambulatory [place] ding: Repository 08/17/2017 [id number] Ambulatory BMSBuilding: [place] BMS.CF.[facility] Repository 08/15/2017 [id number] Ambulatory BMSBuilding: [place] BMS.CF.[facility] Repository 08/10/2017 [id number] Ambulatory BMSBuilding: [place] BMS.CF.[facility] Repository 08/08/2017/08/09/19 [id number] Ambulatory [address] Repository 08/08/2017/08/09/19 [id number] Ambulatory [address] Repository 08/03/2017 [id number] Ambulatory BMSBuilding: [place] BMS.CF.[facility] Repository 08/02/2017 [id number] Ambulatory BMSBuilding: [place] BMS.CF.[facility] Repository 07/31/2017/08/01/19 [id number] Ambulatory [address] Repository 07/31/2017/08/02/19 [id number] Ambulatory [address] Repository 07/31/2017 [id number] Ambulatory BMSBuilding: [place] BMS.CF.[facility] Repository 07/21/2017 [id number] Ambulatory BMSBuilding: [place] BMS.CF.[facility] Repository 07/20/2017 [id number] Ambulatory B[place]Building: [place] [facility] Repository 07/19/2017 [id number] Ambulatory BMSBuilding: [place] BMS.CF.[facility] Repository 07/18/2017 [id number] Ambulatory BMSBuilding: [place] BMS.CF.[facility] Repository 07/17/2017/07/18/19 [id number] Ambulatory [place] ding: Repository 07/13/2017 [id number] Ambulatory BMSBuilding: [place] [facility] Repository 07/06/2017 [id number] Ambulatory BMSBuilding: [place] BMS.CF.[facility] Repository 07/03/2017 [id number] Ambulatory B[place]Building: [place] BMS.CF[facility] Repository 06/28/2017/06/29/19 [id number] Emergency [address] ding:ED Repository 06/28/2017 [id number] Ambulatory BMSBuilding: [place] BMS.CF.[facility] Repository 06/23/2017 [id number] Ambulatory BMSBuilding: [place] BMS.CF[facility] Repository 06/21/2017 [id number] Ambulatory BMSBuilding: [place] BMS.CF[facility] Repository 06/19/2017 [id number] Ambulatory BMSBuilding: [place] BMS.CF[facility] Repository 06/17/2017 [id number] Ambulatory BMSBuilding: [place] BMS.CF.[facility] Repository 06/16/2017/06/18/19 [id number] Ambulatory [address] ding:WC Repository 06/14/2017 [id number] Ambulatory [facility] [place] [facility] Rep[facility] 06/14/2017 [id number] Ambulatory BMSBuilding: [place] [facility] Repository 06/12/2017 [id number] Ambulatory BMSBuilding: [place] BMS.CF.[facility] Repository 06/05/2017 [id number] Ambulatory BMSBuilding: [place] BMS.CF[facility] Repository 05/31/2017 [id number] Ambulatory [facility] ding:MEDOUTP Repository 05/30/2017 [id number] Ambulatory [facility]: [place] [facility] Repository 05/29/2017 [id number] Ambulatory [facility] Repository 05/19/2017/05/26/19 [id number] Junior Whitman Inpatient [address] ding:[id number] Repository : AU035Vle: 1 05/19/2017 [id number] Junior Whitman Ambulatory BMSBuilding: [place] BMS.CF.[facility] Repository 05/19/2017 [id number] Junior Whitman Ambulatory BMSBuilding: [place] BMS.CF.[facility] Repository 05/19/2017 [id number] Junior Whitman Ambulatory BMSBuilding: [place] BMS.CF.[facility] Repository 05/19/2017 [id number] Junior Whitman Ambulatory [place]Building: [place] [facility]MS.CF[facility] Repository 05/19/2017 [id number] Junior Whitman Ambulatory BMSBuilding: [place] BMS.CF[facility] Repository 05/19/2017 [id number] Junior Whitman Ambulatory BMSBuilding: [place] BMS.CF[facility] Repository 05/19/2017/05/20/19 [id number] Ambulatory BMSBuilding: [place] [address] Repository 05/18/2017/05/19/19 [id number] Ambulatory BMSBuilding: [place] [address] Repository 05/17/2017 [id number] Ambulatory BMSBuilding: [place] BMS[facility] Repository 05/16/2017/05/16/19 [id number] Ambulatory BMSBuilding: [place] [address] Repository 05/15/2017 [id number] Ambulatory [facility] ding:LABSPEC Repository 05/15/2017/05/15/19 [id number] Ambulatory BMSBuilding: [place] [address] Repository 05/12/2017/05/12/19 [id number] Ambulatory BMSBuilding: [place] [address] Repository 05/11/2017/05/11/19 [id number] Ambulatory BMSBuilding: [place] [address] Repository 05/02/2017/05/10/19 [id number] Junior Whitman Inpatient [place] [facility] ding:OP4Srcn Repository : YM678Wsk: 1 05/02/2017 [id number] Junior Whitman Ambulatory BMSBuilding: [place] BMS.CF[facility] Repository 05/02/2017 [id number] Junior Whitman Ambulatory BMSBuilding: [place] [facility]MS[facility]CF[facility] Repository 05/02/2017 [id number] Junior Whitman Ambulatory BMSBuilding: [place] BMS.CF[facility] Repository 05/02/2017 [id number] Junior Whitman Ambulatory BMSBuilding: [place] BMS.CF[facility] Repository 05/02/2017 [id number] Junior Whitman Ambulatory BMSBuilding: [place] BMS[facility]CF[facility] Repository 05/02/2017 [id number] Junior Whitman Ambulatory BMSBuilding: [place] [facility]MS[facility]CF[facility] Repository 05/01/2017/05/03/19 [id number] Ambulatory [address] Repository 04/05/2017/04/05/19 [id number] Ambulatory BMSBuilding: [place] [address] Repository PAYERS PAYERS ENCOUNTER GUARANTOR PAYER SUBSCRIBER SOURCE 04/12/2018 SHARON [id number] Primary SHARON E ROCKDOB: [place] [address] Insurance:CARESOURCEP [id number] Hospital [id number]: [phone] [id number] Repository [phone] () Date:2018-04-12[address]ATTN: [place] [address]EF: 04/12/2018 Secondary NOT GIVENUNK [place] Insurance:SELF PAY [facility] Number: Effective Repository Date:2018-04-12 04/12/2018 SHARON [id number] Primary SHARON E ROCKDOB: [place] [address] Insurance:CARESOURC [id number] Psychiatric [facility] Number: Hospital [id number]: [phone] [id number] Repository [phone] () Date:2018-04-10[address]ATTN: [place] [address]RU: 04/12/2018 Secondary NOT GIVENUNK [place] Insurance:SELF PAY [facility] Number: Effective Repository Date:2018-04-12 04/11/2018 SHARON E [id number] Primary SHARON E ROCKDOB: [place] [address] Insurance:CARESOURCEP [id number] [facility] Number: Hospital [id number]: [id number] Repository [phone] () Date:2018-01-24[address]ATTN: [place] [address]EH: 04/11/2018 Secondary NOT GIVENUNK [place] Insurance:SELF PAY [facility]: Effective Repository Date:2018-01-24 04/09/2018 SHARON E [id number] Primary SHARON E ROCKDOB: [place] [address] Insurance:CARESOURCEP [id number] Psychiatric Center Number: [facility] [id number]: [id number] Repository [phone] () Date:2018-04-09[address]ATTN: [place] [address]AH: 04/09/2018 Secondary NOT GIVENUNK [place] Insurance:SELF PAY [facility] Number: Effective Repository Date:2018-04-09 04/06/2018 SHARON E [id number] Primary SHARON E ROCKDOB: [place] [address] Insurance:CARESOURCEP [id number] Psychiatric Center Number: Hospital [id number]: [id number] Repository [phone] () Date:2018-03-21[address]ATTN: [place] [address]WE: 04/06/2018 Secondary NOT GIVENUNK [place] Insurance:SELF PAY [facility] Number: Effective Repository Date:2018-04-06 04/02/2018 SHARON E [id number] Primary SHARON E ROCKDOB: [place] [address] Insurance:CARESOURCEP [id number] Psychiatric Center Number: Hospital [id number]: [phone] [id number] Repository [phone] () Date:2018-04-02[address]ATTN: [place] [address]HR: 04/02/2018 Secondary NOT GIVENUNK [place] Insurance:SELF PAY [facility] Number: Effective Repository Date:2018-04-02 03/29/2018 SHARON E [id number] Primary SHARON E ROCKDOB: [place] [address] Insurance:CARESOURCEP [id number] Psychiatric Center Number: [facility] [id number]: [phone] [id number] Repository [phone] () Date:2018-01-18[address]ATTN: [place] [address]DE: 03/29/2018 Secondary NOT GIVENUNK [place] Insurance:SELF PAY [facility] Number: Effective Repository Date:2018-01-25 03/21/2018 SHARON E [id number] Primary SHARON E ROCKDOB: [place] [address] Insurance:CARESOURCEP [id number] Psychiatric Center Number: Hospital [id number]: [phone]) [id number] Repository [phone] () Date:2018-03-01[address]ATTN: CLAIMS [facility] [place] [address]DW: 03/21/2018 Secondary NOT GIVENUNK [place] Insurance:SELF PAY [facility] Number: Effective Repository Date:2018-03-19 03/10/2018 SHARON E [id number] Primary SHARON E ROCKDOB: [place] [address] Insurance:CARESOURCEP [id number] Psychiatric Center Number: Hospital [id number]: [phone] [id number] Repository [phone] () Date:2018-03-10[address]ATTN: [facility]S [facility] [place] [address]DG: 03/10/2018 Secondary [place] GIVENUNK [place] Insurance:SELF PAY [facility]Policy Hospital Number: Effective Repository Date:2018-03-10 03/05/2018 SHARON E [id number] Primary SHARON E ROCKDOB: [place] [address] Insurance:CARESOURCEP [id number] Psychiatric Center Number: [facility] [id number]: 740 [id number] Repository [phone] () Date:2018-03-05[address]ATTN: [place] [address]LL: 03/05/2018 Secondary NOT GIVENUNK [place] Insurance:SELF PAY [facility] Number: Effective Repository Date:2018-03-05 03/01/2018 SHARON E [id number] Primary SHARON E ROCKDOB: [place] [address] Insurance:CARESOURC [id number] Psychiatric Center Number: [facility] [id number]: [id number] Repository [phone] () Date:2018-02-12[address]ATTN: [place] [address]VI: 03/01/2018 Secondary NOT GIVENUNK [place] Insurance:SELF PAY [facility] Number: Effective Repository Date:2018-03-01 02/12/2018 SHARON E [id number] Primary SHARON E ROCKDOB: [place] [address] Insurance:CARESOURCEP [id number] Psychiatric Center Number: Hospital [id number]: [id number] Repository [phone] () Date:2018-02-05[address]ATTN: [place] [address]NR: 02/12/2018 Secondary NOT GIVENUNK [place] Insurance:SELF PAY [facility] Number: Effective Repository Date:2018-02-05 02/05/2018 SHARON E [id number] Primary SHARON E ROCKDOB: [place] [address] Insurance:CARESOURCEP [id number] Psychiatric Center Number: Hospital [id number]: 740 [id number] Repository [phone] () Date:2018-01-31[address]ATTN: [place] [address]BA: 02/05/2018 Secondary NOT GIVENUNK [place] Insurance:SELF PAY [facility] Number: Effective Repository Date:2018-02-05 01/31/2018 SHARON E [id number] Primary SHARON E ROCKDOB: [place] [address] Insurance:CARESOURCEP [id number] Psychiatric Center Number: Hospital [id number]: [id number] Repository [phone] () Date:2018-01-26[address]ATTN: [place] [address]TV: 01/31/2018 Secondary NOT GIVENUNK [place] Insurance:SELF PAY [facility] Number: Effective Repository Date:2018-01-30 01/31/2018 SHARON E [id number] Primary SHARON E ROCKDOB: [place] [address] Insurance:CARESOURCEP [id number] Psychiatric Center Number: Hospital [id number]: [id number] Repository [phone] () Date:2018-01-31[address]ATTN: [place] [address]KL: 01/31/2018 Secondary NOT GIVENUNK [place] Insurance:SELF PAY [facility] Number: Effective Repository Date:2018-01-31 01/28/2018 SHARON E [id number] Primary [place]IVENUNK [place] [address] Insurance:SELF PAY [facility] [id number]: [phone]) Number: Effective Repository [phone] () Date:2018-01-18 01/24/2018 SHARON E [id number] Primary SHARON E ROCKDOB: [place] [address] Insurance:CARESOURCEP [id number] Psychiatric Center Number: [facility] [id number]: ([phone]) [id number] Repository [phone] (HP) Date:2017-12-[address]ATTN: [place] [address]FH: 01/24/2018 Secondary [place] GIVENUNK [place] Insurance:SELF PA[place] [facility] Number: Effective Repository Date:2017-12-25 01/24/2018 SHARON E [id number] Primary SHARON E ROCKDOB: [place] [address] Insurance:CARESOURCEP [id number] Psychiatric Center Number: Hospital [id number]: ([phone] [id number] Repository [phone] (HP) Date:2017-12-[address]ATTN: [place] [address]EJ: 01/24/2018 Secondary NOT GIVENUNK [place] Insurance:SELF PAY [facility] Number: Effective Repository Date:2018-01-22 01/24/2018 SHARON E [id number] Primary SHARON E ROCKDOB: [place] [address] Insurance:CARESOURCEP [id number] Psychiatric Center Number: Hospital [id number]: [id number] Repository [phone] () Date:2017-12-[address]ATTN: CLAIMS [facility] [place] [address]FB: 01/24/2018 Secondary NOT GIVENUNK [place] Insurance:SELF PAY [facility] Number: Effective Repository Date:2018-01-24 01/24/2018 SHARON E [id number] Primary SHARON E ROCKDOB: [place] [address] Insurance:CARESOURCEP [id number] Psychiatric Center Number: [facility] [id number]: ([phone]) [id number] Repository [phone] (HP) Date:2017-12-[address]ATTN: [place] [address]RT: 01/24/2018 Secondary NOT GIVENUNK [place] Insurance:SELF PA[place] [facility] Number: Effective Repository Date:2018-01-24 01/24/2018 SHARON E [id number] Primary SHARON E ROCKDOB: [place] [address] Insurance:CARESOURCEP [id number] Psychiatric Center Number: Hospital [id number]: ([phone]) [id number] Repository [phone] () Date:2017-12-25[address]ATTN: [place] [address]CR: 01/24/2018 Secondary NOT GIVENUNK [place] Insurance:SELF PAY [facility] Number: Effective Repository Date:2018-01-23 01/18/2018 SHARON E [id number] Primary SHARON E ROCKDOB: [place] [address] Insurance:[facility] [id number] Psychiatric Center Number: Hospital [id number]: ([phone]) [id number] Repository [phone] () Date:2018-01-[address]ATTN: [place] [address]PQ: 01/18/2018 Secondary NOT GIVENUNK [place] Insurance:SELF PAY [facility] Number: Effective Repository Date:2018-01-18 01/16/2018 SHARON E [id number] Primary SHARON E ROCKDOB: [place] [address] Insurance:CARESOURC [id number] Psychiatric Center Number: Hospital [id number]: ([phone] [id number] Repository [phone] () Date:2017-05-[address]ATTN: [place] [address]AJ: 01/16/2018 Secondary NOT GIVENUNK [place] Insurance:SELF PAY [facility] Number: Effective Repository Date:2018-01-16 01/05/2018 SHARON E [id number] Primary SHARON E ROCKDOB: [place] [address] Insurance:CARESOURCEP [id number] Psychiatric Center Number: Hospital [id number]: [id number] Repository [phone] () Date:2017-05-[address]ATTN: [place] [address]JZ: 01/05/2018 Secondary NOT GIVENUNK [place] Insurance:SELF PAY [facility] Number: Effective Repository Date:2017-12-18 01/04/2018 SHARON E [id number] Primary SHARON E ROCKDOB: [place] [address] Insurance:CARESOURCEP [id number] Psychiatric Center Number: Hospital [id number]: 740 [id number] Repository [phone] () Date:2017-05-[address]ATTN: [place] [address]RQ: 01/04/2018 Secondary NOT GIVENUNK [place] Insurance:SELF PAY [facility] Number: Effective Repository Date:2018-01-04 01/04/2018 SHARON E [id number] Primary SHARON E ROCKDOB: [place] [address] Insurance:CARESOURCEP [id number] Psychiatric Center Number: Hospital [id number]: 740 [id number] Repository [phone] () Date:2017-05-[address]ATTN: [place] [address]BT: 01/04/2018 Secondary [place] GIV[place]UNK [place] Insurance:SELF PAY [facility] Number: Effective Repository Date:2018-01-04 01/03/2018 SHARON E [id number] Primary SHARON E ROCKDOB: [place] [address] Insurance:CARESOURCEP [id number] Psychiatric Center Number: Hospital [id number]: [phone]) [id number] Repository [phone] () Date:2017-05-23 [address]ATTN: [place] [address]OR: 01/03/2018 Secondary NOT GIVENUNK [place] Insurance:SELF PAY [facility] Number: Effective Repository Date:2018-01-03 12/29/2017 SHARON E [id number] Primary SHARON E ROCKDOB: [place] [address] Insurance:CARESOURCEP [id number] Psychiatric Center Number: Hospital [id number]: ([phone]) [id number] Repository [phone] (HP) Date:2017-05-[address]ATTN: CLAIMS [facility] [place] [address]XW: 12/29/2017 Secondary NOT GIV[place]UNK [place] Insurance:SELF PAY [facility] Number: Effective Repository Date:2017-12-29 12/27/2017 SHARON E [id number] Primary SHARON E ROCKDOB: [place] [address] Insurance:CARESOURCEP [id number] Psychiatric Center Number: Hospital [id number]: ([phone]) [id number] Repository [phone] (HP) Date:2017-05-23 [address]ATTN: [place] [address]BG: 12/27/2017 Secondary NOT GIVENUNK [place] Insurance:SELF PA[place] [facility] Number: Effective Repository Date:2017-12-27 12/21/2017 SHARON E [id number] Primary SHARON E ROCKDOB: [place] [address] Insurance:CARESOURCEP [id number] Psychiatric Center Number: Hospital [id number]: [phone]) [id number] Repository [phone] (HP) Date:2017-11-[address]ATTN: CLAIMS [facility] [place] [address]IT: 12/21/2017 Secondary NOT GIVENUNK [place] Insurance:SELF PAY [facility] Number: Effective Repository Date:2017-12-21 12/20/2017 SHARON E [id number] Primary SHARON E ROCKDOB: [place] [address] Insurance:CARESOURCEP [id number] Psychiatric Center Number: Hospital [id number]: ([phone]) [id number] Repository [phone] () Date:2017-05-23[address]ATTN: [place] [address]IM: 12/20/2017 Secondary [place] GIV[place]UNK [place] Insurance:SELF PA[place] [facility] Number: Effective Repository Date:2017-12-20 12/19/2017 SHARON E [id number] Primary SHARON E ROCKDOB: [place] [address] Insurance:CARESOURCEP [id number] Psychiatric Center Number: Hospital [id number]: ([phone]) [id number] Repository [phone] () Date:2017-05-23[address]ATTN: [place] [address]YD: 12/19/2017 Secondary [place] GIV[place]K [place] Insurance:SELF PA[place] [facility] Number: Effective Repository Date:2017-12-19 12/15/2017 SHARON E [id number] Primary SHARON E ROCKDOB: [place] [address] Insurance:CARESOURCEP [id number] Psychiatric Center Number: Hospital [id number]: (156) [id number] Repository [phone] () Date:2017-05-[address]ATTN: [place] [address]GI: 12/15/2017 Secondary [place] GIVENUNK [place] Insurance:SELF PA[place] [facility] Number: Effective Repository Date:2017-11-18 12/14/2017 SHARON E [id number] Primary SHARON E ROCKDOB: [place] [address] Insurance:CARESOURCEP [id number] Psychiatric Center Number: Hospital [id number]: ([phone]) [id number] Repository [phone] () Date:2017-12-14[address]ATTN: [place] [address]TT: 12/14/2017 Secondary NOT GIVENUNK [place] Insurance:SELF PAY [facility] Number: Effective Repository Date:2017-12-14 12/14/2017 SHARON E [id number] Primary SHARON E ROCKDOB: [place] [address] Insurance:CARESOURCEP [id number] Psychiatric Center Number: Hospital [id number]: ([phone]) [id number] Repository [phone] () Date:2017-05-[address]ATTN: [place] [address]CP: 12/14/2017 Secondary [place] GIV[place]K [place] Insurance:SELF PA[place] [facility] Number: Effective Repository Date:2017-12-14 12/13/2017 SHARON E [id number] Primary SHARON E ROCKDOB: [place] [address] Insurance:CARESOURCEP [id number] Psychiatric Center Number: Hospital [id number]: ([phone] [id number] Repository [phone] () Date:2017-05-23 [address]ATTN: [place] [address]AR: 12/13/2017 Secondary NOT GIVENUNK [place] Insurance:SELF PA[place] [facility] Number: Effective Repository Date:2017-12-13 12/07/2017 SHARON E [id number] Primary SHARON E ROCKDOB: [place] [address] Insurance:CARESOURCEP [id number] Psychiatric Center Number: [facility] [id number]: ([phone]) [id number] Repository [phone] () Date:2017-05-23 [address]ATTN: [place] [address]KO: 12/07/2017 Secondary NOT GIV[place]K [place] Insurance:SELF PA[place] [facility] Number: Effective Repository Date:2017-12-07 11/30/2017 SHARON E [id number] Primary SHARON E ROCKDOB: [place] [address] Insurance:CARESOURCEP [id number] Psychiatric Center Number: Hospital [id number]: ([phone] [id number] Repository [phone] () Date:2017-05-23[address]ATTN: [place] [address]FA: 11/30/2017 Secondary NOT GIVENUNK [place] Insurance:SELF PAY [facility] Number: Effective Repository Date:2017-11-30 11/29/2017 SHARON E [id number] Primary SHARON E ROCKDOB: [place] [address] Insurance:CARESOURCEP [id number] Psychiatric Center Number: Hospital [id number]: [id number] Repository [phone] () Date:2017-05-23[address]ATTN: [place] [address]CX: 11/29/2017 Secondary NOT GIVENUNK [place] Insurance:SELF PAY [facility] Number: Effective Repository Date:2017-11-29 11/23/2017 SHARON E [id number] Primary SHARON E ROCKDOB: [place] [address] Insurance:CARESOURCEP [id number] Psychiatric Center Number: Hospital [id number]: 740 [id number] Repository [phone] () Date:2017-11-13[address]ATTN: [place] [address]BM: 11/23/2017 Secondary NOT GIVENUNK [place] Insurance:SELF PA[place] [facility] Number: Effective Repository Date:2017-11-21 11/22/2017 SHARON E [id number] Primary SHARON E ROCKDOB: [place] [address] Insurance:CARESOURCEP [id number] Psychiatric Center Number: Hospital [id number]: ([phone]) [id number] Repository [phone] (HP) Date:2017-05-23 [address]ATTN: [place] [address]LX: 11/22/2017 Secondary NOT GIVENUNK [place] Insurance:SELF PAY [facility] Number: Effective Repository Date:2017-11-22 11/13/2017 SHARON E [id number] Primary SHARON E ROCKDOB: [place] [address] Insurance:[facility]ESOCHOCT[facility] [id number] Psychiatric Center Number: Hospital [id number]: 740 [id number] Repository [phone] () Date:2017-05-23 [address]ATTN: [place] [address]NT: 11/13/2017 Secondary NOT GIV[place]UNK [place] Insurance:SELF PA[place] [facility] Number: Effective Repository Date:2017-10-18 11/08/2017 SHARON E [id number] Primary SHARON E ROCKDOB: [place] [address] Insurance:CARESOURC [id number] Psychiatric Center Number: Hospital [id number]: 740 [id number] Repository [phone] () Date:2017-05-23 [address]ATTN: [place] [address]YB: 11/08/2017 Secondary NOT GIVENUNK [place] Insurance:SELF PAY [facility] Number: Effective Repository Date:2017-11-08 11/06/2017 SHARON E [id number] Primary SHARON E ROCKDOB: [place] [address] Insurance:CARESOURC [id number] Psychiatric Center Number: Hospital 13375Pph: ([phone]) [id number] Repository [phone] (HP) Date:2017-05-23 [address]ATTN: [place] [address]GT: 11/06/2017 Secondary NOT GIVENUNK [place] Insurance:SELF PAY [facility] Number: Effective Repository Date:2017-11-06 10/26/2017 SHARON E [id number] Primary SHARON E ROCKDOB: [place] [address] Insurance:CARESOURC [id number] Psychiatric Center Number: Hospital [id number]: 740 [id number] Repository [phone] () Date:2017-05-23 [address]ATTN: [place] [address]KO: 10/26/2017 Secondary NOT GIVENUNK [place] Insurance:SELF PAY [facility] Number: Effective Repository Date:2017-10-26 10/25/2017 SHARON E [id number] Primary SHARON E ROCKDOB: [place] [address] Insurance:[facility]AREBO[facility] [id number] Psychiatric Center Number: Hospital [id number]: ([phone]) [id number] Repository [phone] () Date:2017-05-23 [address]ATTN: [place] [address]WA: 10/25/2017 Secondary NOT GIVENUNK [place] Insurance:SELF PAY [facility] Number: Effective Repository Date:2017-10-25 10/19/2017 SHARON E [id number] Primary SHARON E ROCKDOB: [place] [address] Insurance:[facility]AREBO[facility] [id number] Psychiatric Center Number: Hospital [id number]: ([phone]) [id number] Repository [phone] () Date:2017-05-23P [address]ATTN: [place] [address]NG: 10/19/2017 Secondary NOT GIVENUNK [place] Insurance:SELF PAY [facility] Number: Effective Repository Date:2017-10-19 10/18/2017 SHARON E [id number] Primary SHARON E ROCKDOB: [place] [address] Insurance:CARESOURCEP [id number] Psychiatric Center Number: Hospital [id number]: 740 [id number] Repository [phone] () Date:2017-10-10P [address]ATTN: [place] [address]OS: 10/18/2017 Secondary NOT GIVENUNK [place] Insurance:SELF PAY [facility] Number: Effective Repository Date:2017-10-16 10/18/2017 SHARON E [id number] Primary SHARON E ROCKDOB: [place] [address] Insurance:CARESOURCEP [id number] Psychiatric Center Number: Hospital [id number]: 740 [id number] Repository [phone] () Date:2017-05-23P [address]ATTN: [place] [address]MK: 10/18/2017 Secondary NOT GIVENUNK [place] Insurance:SELF PAY [facility] Number: Effective Repository Date:2017-10-18 10/12/2017 SHARON E [id number] Primary SHARON E ROCKDOB: [place] [address] Insurance:CARESOURCEP [id number] Psychiatric Center Number: Hospital [id number]: [id number] Repository [phone] () Date:2017-05-23P [address]ATTN: [place] [address]XC: 10/12/2017 Secondary NOT GIVENUNK [place] Insurance:SELF PAY [facility] Number: Effective Repository Date:2017-09-17 10/12/2017 SHARON E [id number] Primary SHARON E ROCKDOB: [place] [address] Insurance:CARESOURCEP [id number] Psychiatric Center Number: Hospital [id number]: [phone]) [id number] Repository [phone] (HP) Date:2017-10-10P [address]ATTN: [place] [address]OV: 10/12/2017 Secondary NOT GIVENUNK [place] Insurance:SELF PAY [facility] Number: Effective Repository Date:2017-10-10 10/12/2017 SHARON E [id number] Primary SHARON E ROCKDOB: [place] [address] Insurance:CARESOURCEP [id number] Psychiatric Center Number: Hospital [id number]: ([phone] [id number] Repository [phone] (HP) Date:2017-10-10P [address]ATTN: [place] [address]ER: 10/12/2017 Secondary NOT GIVENUNK [place] Insurance:SELF PAY [facility] Number: Effective Repository Date:2017-10-12 10/09/2017 SHARON E [id number] Primary SHARON E ROCKDOB: [place] [address] Insurance:CARESOURCEP [id number] Psychiatric Center Number: Hospital [id number]: (214) [id number] Repository [phone] () Date:2017-05-23P [address]ATTN: [place] [address]DL: 10/09/2017 Secondary NOT GIVENUNK [place] Insurance:SELF PAY [facility] Number: Effective Repository Date:2017-10-09 10/07/2017 SHARON E [id number] Primary SHARON E ROCKDOB: [place] [address] Insurance:CARESOURCEP [id number] Psychiatric Center Number: Hospital [id number]: [phone]) [id number] Repository [phone] (HP) Date:2017-10-07P [address]ATTN: CLAIMS [facility] [place] [address]SD: 10/07/2017 Secondary NOT GIVENUNK [place] Insurance:SELF PAY [facility] Number: Effective Repository Date:2017-10-07 10/05/2017 SHARON E [id number] Primary SHARON E ROCKDOB: [place] [address] Insurance:CARESOURCEP [id number] Psychiatric Center Number: Hospital [id number]: ([phone]) [id number] Repository [phone] () Date:2017-05-23P [address]ATTN: [place] [address]ST: 10/05/2017 Secondary NOT GIVENUNK [place] Insurance:SELF PAY [facility] Number: Effective Repository Date:2017-10-05 10/04/2017 SHARON E [id number] Primary SHARON E ROCKDOB: [place] [address] Insurance:CARESOURC [id number] Psychiatric Center Number: [facility] [id number]: ([phone]) [id number] Repository [phone] () Date:2017-05-23P [address]ATTN: [place] [address]XQ: 10/04/2017 Secondary [place] GIV[place]UNK [place] Insurance:SELF PAY [facility] Number: Effective Repository Date:2017-10-04 09/27/2017 SHARON E [id number] Primary SHARON E ROCKDOB: [place] [address] Insurance:CARESOURC [id number] Psychiatric Center Number: [facility] [id number]: (180 [id number] Repository [phone] () Date:2017-09-27P [address]ATTN: [place] [address]RQ: 09/27/2017 Secondary [place] GIVENUNK [place] Insurance:SELF PAY [facility] Number: Effective Repository Date:2017-09-27 09/19/2017 SHARON E [id number] Primary SHARON E ROCKDOB: [place] [address] Insurance:CARESOURC [id number] Psychiatric Center Number: Hospital [id number]: ([phone]) [id number] Repository [phone] () Date:2017-08-31 [address]ATTN: [place] [address]GJ: 09/19/2017 Secondary [place] GIV[place]UNK [place] Insurance:SELF PAY [facility] Number: Effective Repository Date:2017-08-31 09/19/2017 SHARON E [id number] Primary SHARON E ROCKDOB: [place] [address] Insurance:CARESOURCEP [id number] Psychiatric Center Number: Hospital [id number]: (000 [id number] Repository [phone] () Date:2017-08-31 [address]ATTN: [place] [address]OI: 09/19/2017 Secondary NOT GIVENUNK [place] Insurance:SELF PAY [facility] Number: Effective Repository Date:2017-09-19 09/19/2017 SHARON E [id number] Primary SHARON E ROCKDOB: [place] [address] Insurance:CARESOURCEP [id number] Psychiatric Center Number: Hospital [id number]: [id number] Repository [phone] () Date:2017-08-31 [address]ATTN: [place] [address]HV: 09/19/2017 Secondary NOT GIVENUNK [place] Insurance:SELF PAY [facility] Number: Effective Repository Date:2017-09-19 09/19/2017 SHARON E [id number] Primary SHARON E ROCKDOB: [place] [address] Insurance:CARESOURCEP [id number] Psychiatric Center Number: Hospital [id number]: [id number] Repository [phone] () Date:2017-08-31 [address]ATTN: [place] [address]SQ: 09/19/2017 Secondary [place] GIV[place]K [place] Insurance:SELF PAY [facility] [facility] Number: Effective Repository Date:2017-09-19 09/19/2017 SHARON E [id number] Primary SHARON E ROCKDOB: [place] [address] Insurance:CARESOURCEP [id number] Psychiatric Center Number: Hospital [id number]: ([phone] [id number] Repository [phone] () Date:2017-08-31[address]ATTN: [place] [address]QP: 09/19/2017 Secondary NOT GIVENUNK [place] Insurance:SELF PAY [facility] Number: Effective Repository Date:2017-09-19 09/07/2017 SHARON E [id number] Primary SHARON E ROCKDOB: [place] [address] Insurance:CARESOURCEP [id number] Psychiatric Center Number: Hospital [id number]: [id number] Repository [phone] () Date:2017-05-23[address]ATTN: [place] [address]HM: 09/07/2017 Secondary NOT GIVENUNK [place] Insurance:SELF PAY [facility] Number: Effective Repository Date:2017-08-18 08/31/2017 SHARON E [id number] Primary SHARON E ROCKDOB: [place] [address] Insurance:CARESOURCEP [id number] Psychiatric Center Number: Hospital [id number]: ([phone] [id number] Repository [phone] () Date:2017-05-23[address]ATTN: [place] [address]CQ: 08/31/2017 Secondary NOT GIVENUNK [place] Insurance:SELF PAY [facility] Number: Effective Repository Date:2017-08-31 08/30/2017 SHARON E [id number] Primary SHARON E ROCKDOB: [place] [address] Insurance:CARESOURCEP [id number] Psychiatric Center Number: Hospital [id number]: ([phone]) [id number] Repository [phone] (HP) Date:2017-08-29 [address]ATTN: [place] [address]KC: 08/30/2017 Secondary NOT GIVENUNK [place] Insurance:SELF PAY [facility] Number: Effective Repository Date:2017-08-29 08/22/2017 SHARON E [id number] Primary SHARON E ROCKDOB: [place] [address] Insurance:[employer]C [id number] Psychiatric Center Number: Hospital [id number]: ([phone] [id number] Repository [phone] (HP) Date:2017-08-22[address]ATTN: [place] [address]ZD: 08/22/2017 Secondary NOT GIVENUNK [place] Insurance:SELF PAY [facility] Number: Effective Repository Date:2017-08-22 08/22/2017 SHARON E [id number] Primary SHARON E ROCKDOB: [place] [address] Insurance:[employer]C [id number] Psychiatric Center Number: Hospital [id number]: [phone] [id number] Repository [phone] (HP) Date:2017-08-18[address]ATTN: [place] [address]TZ: 08/22/2017 Secondary NOT GIVENUNK [place] Insurance:SELF PAY [facility] Number: Effective Repository Date:2017-08-18 08/17/2017 SHARON E [id number] Primary SHARON E ROCKDOB: [place] [address] Insurance:[employer] [id number] Psychiatric Center Number: Hospital [id number]: ([phone]) [id number] Repository [phone] (HP) Date:2017-05-23[address]ATTN: [place] [address]IN: 08/17/2017 Secondary NOT GIVENUNK [place] Insurance:SELF PAY [facility] Number: Effective Repository Date:2017-07-18 08/17/2017 SHARON E [id number] Primary SHARON E ROCKDOB: [place] [address] Insurance:CARESOURCEP [id number] Psychiatric Center Number: Hospital [id number]: [phone] [id number] Repository [phone] () Date:2017-05-[address]ATTN: [place] [address]FE: 08/17/2017 Secondary NOT GIVENUNK [place] Insurance:SELF PAY [facility] Number: Effective Repository Date:2017-08-17 08/15/2017 SHARON E [id number] Primary SHARON E ROCKDOB: [place] [address] Insurance:[facility] [id number] Psychiatric Center Number: [facility] [id number]: ([phone] [id number] Repository [phone] () Date:2017-05-[address]ATTN: [place] [address]SQ: 08/15/2017 Secondary NOT GIVENUNK [place] Insurance:SELF PAY [facility] Number: Effective Repository Date:2017-08-15 08/10/2017 SHARON E [id number] Primary SHARON E ROCKDOB: [place] [address] Insurance:[facility] [id number] Psychiatric Center Number: Hospital [id number]: ([phone]) [id number] Repository [phone] () Date:2017-05-[address]ATTN: [place] [address]GF: 08/10/2017 Secondary NOT GIVENUNK [place] Insurance:SELF PAY [facility] Number: Effective Repository Date:2017-08-10 08/03/2017 SHARON E [id number] Primary SHARON E ROCKDOB: [place] [address] Insurance:CARESOURCEP [id number] Psychiatric Center Number: Hospital [id number]: [phone] [id number] Repository [phone] () Date:2017-05-[address]ATTN: [place] [address]ZG: 08/03/2017 Secondary NOT GIVENUNK [place] Insurance:SELF PAY [facility] Number: Effective Repository Date:2017-08-03 08/02/2017 SHARON E [id number] Primary SHARON E ROCKDOB: [place] [address] Insurance:CARESOURCEP [id number] Psychiatric Center Number: Hospital [id number]: [id number] Repository [phone] () Date:2017-05-[address]ATTN: [place] [address]JN: 08/02/2017 Secondary NOT GIVENUNK [place] Insurance:SELF PAY [facility] Number: Effective Repository Date:2017-08-02 07/31/2017 SHARON E [id number] Primary SHARON E ROCKDOB: [place] [address] Insurance:CARESOURCEP [id number] Psychiatric Center Number: Hospital [id number]: [id number] Repository [phone] () Date:2017-05-[address]ATTN: [place] [address]YA: 07/31/2017 Secondary NOT GIVENUNK [place] Insurance:SELF PAY [facility] Number: Effective Repository Date:2017-07-31 07/21/2017 SHARON E [id number] Primary SHARON E ROCKDOB: [place] [address] Insurance:CARESOURCEP [id number] Psychiatric Center Number: Hospital [id number]: [id number] Repository [phone] (HP) Date:2017-05-[address]ATTN: [place] [address]RC: 07/21/2017 Secondary NOT GIVENUNK [place] Insurance:SELF PAY [facility] Number: Effective Repository Date:2017-07-21 07/20/2017 SHARON E [id number] Primary SHARON E ROCKDOB: [place] [address] Insurance:CARESOURCEP [id number] Psychiatric Center Number: Hospital [id number]: [phone]) [id number] Repository [phone] (HP) Date:2017-05-[address]ATTN: [place] [address]DB: 07/20/2017 Secondary NOT GIVENUNK [place] Insurance:SELF PAY [facility] Number: Effective Repository Date:2017-07-20 07/19/2017 SHARON E [id number] Primary SHARON E ROCKDOB: [place] [address] Insurance:[employer]OURCEP [id number] Psychiatric Center Number: Hospital [id number]: ([phone]) [id number] Repository [phone] () Date:2017-05-[address]ATTN: [place] [address]XM: 07/19/2017 Secondary NOT GIVENUNK [place] Insurance:SELF PAY [facility] Number: Effective Repository Date:2017-07-19 07/18/2017 SHARON E [id number] Primary SHARON E ROCKDOB: [place] [address] Insurance:[employer]P [id number] Psychiatric Center Number: Hospital [id number]: ([phone]) [id number] Repository [phone] () Date:2017-05-23 [address]ATTN: [facility]S [facility] [place] [address]DY: 07/18/2017 Secondary NOT GIVENUNK [place] Insurance:SELF PAY [facility] Number: Effective Repository Date:2017-07-18 07/17/2017 SHARON E [id number] Primary SHARON E ROCKDOB: [place] [address] Insurance:[employer]OURCEP [id number] Psychiatric Center Number: Hospital [id number]: [id number] Repository [phone] () Date:2017-05-23[address]ATTN: [place] [address]LI: 07/17/2017 Secondary NOT GIVENUNK [place] Insurance:SELF PAY [facility] Number: Effective Repository Date:2017-06-18 07/13/2017 SHARON E [id number] Primary SHARON E ROCKDOB: [place] [address] Insurance:[facility] [id number] Psychiatric Center Number: Hospital [id number]: [id number] Repository [phone] () Date:2017-05-[address]ATTN: [place] [address]UZ: 07/13/2017 Secondary NOT GIVENUNK [place] Insurance:SELF PAY [facility] Number: Effective Repository Date:2017-07-13 07/06/2017 SHARON E [id number] Primary SHARON E ROCKDOB: [place] [address] Insurance:[facility]OCHOCT[facility] [id number] Number: Hospital [id number]: [id number] Repository [phone] () Date:2017-05-[address]ATTN: [place] [address]AE: 07/06/2017 Secondary NOT GIVENUNK [place] Insurance:SELF PAY [facility] Number: Effective Repository Date:2017-07-06 07/03/2017 SHARON E [id number] Primary SHARON E ROCKDOB: [place] [address] Insurance:[employer]OURC [id number] Psychiatric Center Number: Hospital [id number]: ([phone]) [id number] Repository [phone] (HP) Date:2017-05-[address]ATTN: [place] [address]OX: 07/03/2017 Secondary NOT GIVENUNK [place] Insurance:SELF PAY [facility] Number: Effective Repository Date:2017-07-03 06/28/2017 SHARON E [id number] Primary SHARON E ROCKDOB: [place] [address] Insurance:CARESOURCEP [id number] Number: [facility] [id number]: ([phone] [id number] Repository [phone] (HP) Date:2017-06-28[address]ATTN: [place] [address]HE: 06/28/2017 Secondary NOT GIVENUNK [place] Insurance:SELF PAY [facility] Number: Effective Repository Date:2017-06-28 06/28/2017 SHARON E [id number] Primary SHARON E ROCKDOB: [place] [address] Insurance:CAR[employer]OURCEP [id number] Psychiatric Center Number: [facility] [id number]: ([phone] [id number] Repository [phone] (HP) Date:2017-06-28 [address]ATTN: [place] [address]GT: 06/28/2017 Secondary NOT GIVENUNK [place] Insurance:SELF PAY [facility] Number: Effective Repository Date:2017-06-28 06/23/2017 SHARON E [id number] Primary SHARON E ROCKDOB: [place] [address] Insurance:[facility] [id number] Psychiatric Center Number: [facility] [id number]: [phone] [id number] Repository [phone] (HP) Date:2017-05-23 [address]ATTN: [place] [address]EC: 06/23/2017 Secondary NOT GIVENUNK [place] Insurance:SELF PAY [facility] Number: Effective Repository Date:2017-06-23 06/21/2017 SHARON E [id number] Primary SHARON E ROCKDOB: [place] [address] Insurance:[employer]P [id number] Psychiatric Center Number: Hospital [id number]: ([phone] [id number] Repository [phone] (HP) Date:2017-05-23[address]ATTN: [place] [address]KD: 06/21/2017 Secondary NOT GIVENUNK [place] Insurance:SELF PAY [facility] Number: Effective Repository Date:2017-06-21 06/19/2017 SHARON E [id number] Primary SHARON E ROCKDOB: [place] [address] Insurance:[facility] [id number] Psychiatric Center Number: Hospital [id number]: ([phone] [id number] Repository [phone] () Date:2017-05-23 [address]ATTN: [place] [address]AQ: 06/19/2017 Secondary NOT GIVENUNK [place] Insurance:SELF PAY [facility] Number: Effective Repository Date:2017-06-19 06/17/2017 SHARON E [id number] Primary SHARON E ROCKDOB: [place] [address] Insurance:[facility] [id number] Number: Hospital [id number]: [phone] [id number] Repository [phone] (HP) Date:2017-05-23 [address]ATTN: [place] [address]PL: 06/17/2017 Secondary NOT GIVENUNK [place] Insurance:SELF PAY [facility] Number: Effective Repository Date:2017-06-17 06/16/2017 SHARON E [id number] Primary SHARON E ROCKDOB: [place] [address] Insurance:CAR[employer]P [id number] Number: Hospital [id number]: [id number] Repository [phone] () Date:2017-05-[address]ATTN: [place] [address]OT: 06/16/2017 Secondary NOT GIVENUNK [place] Insurance:SELF PAY [facility] Number: Effective Repository Date:2017-05-23 06/14/2017 SHARON E [id number] Primary SHARON E ROCKDOB: [place] [address] Insurance:[employer] [id number] Psychiatric Center Number: Hospital [id number]: [id number] Repository [phone] () Date:2017-05-[address]ATTN: [place] [address]IY: 06/14/2017 Secondary NOT GIVENUNK [place] Insurance:SELF PAY [facility] Number: Effective Repository Date:2017-06-14 06/14/2017 SHARON E [id number] Primary SHARON E ROCKDOB: [place] [address] Insurance:CAR[employer]P [id number] Number: Hospital [id number]: [id number] Repository [phone] () Date:2017-05-23 [address]ATTN: [place] [address]SD: 06/14/2017 Secondary NOT GIVENUNK [place] Insurance:SELF PAY [facility] Number: Effective Repository Date:2017-06-14 06/12/2017 SHARON E [id number] Primary SHARON E ROCKDOB: [place] [address] Insurance:[employer] [id number] Psychiatric Center Number: Hospital [id number]: ([phone]) [id number] Repository [phone] (HP) Date:2017-05-31 [address]ATTN: [place] [address]BA: 06/12/2017 Secondary NOT GIVENUNK [place] Insurance:SELF PAY [facility] Number: Effective Repository Date:2017-06-12 06/05/2017 SHARON Amaila [id number] Primary SHARON E ROCKDOB: [place] [address] Insurance:[employer]P [id number] Psychiatric Center Number: Hospital [id number]: ([phone]) [id number] Repository [phone] (HP) Date:2017-05-23 [address]ATTN: [place] [address]HX: 06/05/2017 Secondary NOT GIVENUNK [place] Insurance:SELF PAY [facility] Number: Effective Repository Date:2017-06-05 05/31/2017 SHARON E [id number] Primary SHARON E ROCKDOB: [place] [address] Insurance:[employer] [id number] Number: Hospital [id number]: ([phone]) [id number] Repository [phone] () Date:2017-05-31 [address]ATTN: [place] [address]PQ: 05/31/2017 Secondary NOT GIVENUNK [place] Insurance:SELF PAY [facility] Number: Effective Repository Date:2017-05-31 05/30/2017 SHARON E [id number] Primary SHARON E ROCKDOB: [place] [address] Insurance:[employer]P [id number] Number: Hospital [id number]: [phone] [id number] Repository [phone] (HP) Date:2017-05-23 [address]ATTN: [place] [address]RG: 05/30/2017 Secondary NOT GIVENUNK [place] Insurance:SELF PAY [facility] Number: Effective Repository Date:2017-05-30 05/29/2017 Sharon E RockDOB: Primary Sharon E RockDOB: [facility] [id number] E Insurance:CareSourceP [id number] [address] [facility] Number: Repository [address] [place] [address] Effective Date: 558[address]Ekb: (HP) 05/19/2017 SHARON E [id number] Primary SHARON E ROCKDOB: [place] [address] Insurance:[employer]P [id number] Number: Hospital [id number]: ([phone]) [id number] Repository [phone] (HP) Date:2017-05-19P [address]ATTN: [place] [address]WT: 05/19/2017 Secondary NOT GIVENUNK [place] Insurance:SELF PAY [facility] Number: Effective Repository Date:2017-05-19 05/19/2017 SHARON E [id number] Primary SHARON E ROCKDOB: [place] [address] Insurance:[facility] [id number] Number: Hospital [id number]: ([phone]) [id number] Repository [phone] (HP) Date:2017-05-19P [address]ATTN: [place] [address]PN: 05/19/2017 Secondary NOT GIVENUNK [place] Insurance:SELF PAY [facility] Number: Effective Repository Date:2017-05-19 05/19/2017 SHARON E [id number] Primary SHARON E ROCKDOB: [place] [address] Insurance:[employer] [id number] Number: Hospital [id number]: ([phone]) [id number] Repository [phone] (HP) Date:2017-05-19P [address]ATTN: [place] [address]FK: 05/19/2017 Secondary NOT GIVENUNK [place] Insurance:SELF PAY [facility] Number: Effective Repository Date:2017-05-19 05/19/2017 SHARON E [id number] Primary SHARON E ROCKDOB: [place] [address] Insurance:CAR[employer]P [id number] Number: Hospital [id number]: ([phone]) [id number] Repository [phone] (HP) Date:2017-05-19P [address]ATTN: [place] [address]NA: 05/19/2017 Secondary NOT GIVENUNK [place] Insurance:SELF PAY [facility] Number: Effective Repository Date:2017-05-19 05/19/2017 SHARON E [id number] Primary SHARON E ROCKDOB: [place] [address] Insurance:[facility] [id number] Number: Hospital [id number]: ([phone]) [id number] Repository [phone] () Date:2017-05-19P [address]ATTN: [place] [address]ZJ: 05/19/2017 Secondary NOT GIVENUNK [place] Insurance:SELF PAY [facility] Number: Effective Repository Date:2017-05-19 05/19/2017 SHARON E [id number] Primary SHARON E ROCKDOB: [place] [address] Insurance:[facility] [id number] Number: Hospital [id number]: ([phone]) [id number] Repository [phone] (HP) Date:2017-05-19P [address]ATTN: [place] [address]AD: 05/19/2017 Secondary NOT GIVENUNK [place] Insurance:SELF PAY [facility] Number: Effective Repository Date:2017-05-19 05/19/2017 SHARON E [id number] Primary SHARON E ROCKDOB: [place] [address] Insurance:[employer]P [id number] [facility] Number: Hospital [id number]: ([phone]) [id number] Repository [phone] () Date:2017-05-19P [address]ATTN: [place] [address]WW: 05/19/2017 Secondary NOT GIVENUNK [place] Insurance:SELF PAY [facility] Number: Effective Repository Date:2017-05-19 05/19/2017 SHARON E [id number] Primary SHARON E ROCKDOB: [place] [address] Insurance:[employer] [id number] Number: Hospital [id number]: ([phone]) [id number] Repository [phone] () Date:2017-05-11P [address]ATTN: [place] [address]YR: 05/19/2017 Secondary NOT GIVENUNK [place] Insurance:SELF PAY [facility] Number: Effective Repository Date:2017-05-11 05/18/2017 SHARON E [id number] Primary SHARON E ROCKDOB: [place] [address] Insurance:[employer] [id number] Number: Hospital [id number]: [phone]) [id number] Repository [phone] () Date:2017-05-11P [address]ATTN: [place] [address]PL: 05/18/2017 Secondary NOT GIVENUNK [place] Insurance:SELF PAY [facility] Number: Effective Repository Date:2017-05-11 05/17/2017 SHARON E [id number] Primary SHARON E ROCKDOB: [place] [address] Insurance:[employer] [id number] Number: Hospital [id number]: ([phone]) [id number] Repository [phone] (HP) Date:2017-05-11P [address]ATTN: [place] [address]JI: 05/17/2017 Secondary NOT GIVENUNK [place] Insurance:SELF PAY [facility] Number: Effective Repository Date:2017-05-11 05/16/2017 SHARON E [id number] Primary SHARON E ROCKDOB: [place] [address] Insurance:[employer] [id number] Number: Hospital [id number]: ([phone] [id number] Repository [phone] (HP) Date:2017-05-11P [address]ATTN: [place] [address]VB: 05/16/2017 Secondary NOT GIVENUNK [place] Insurance:SELF PAY [facility] Number: Effective Repository Date:2017-05-11 05/15/2017 SHARON E [id number] Primary SHARON E ROCKDOB: [place] [address] Insurance:[employer] [id number] Number: Hospital [id number]: [phone]) [id number] Repository [phone] () Date:2017-05-15P [address]ATTN: [place] [address]JX: 05/15/2017 Secondary NOT GIVENUNK [place] Insurance:SELF PAY [facility] Number: Effective Repository Date:2017-05-15 05/15/2017 SHARON E [id number] Primary SHARON E ROCKDOB: [place] [address] Insurance:[employer] [id number] Number: Hospital [id number]: ([phone]) [id number] Repository [phone] (HP) Date:2017-05-11P [address]ATTN: [place] [address]VG: 05/15/2017 Secondary NOT GIVENUNK [place] Insurance:SELF PAY [facility] Number: Effective Repository Date:2017-05-11 05/12/2017 SHARON E [id number] Primary SHARON E ROCKDOB: [place] [address] Insurance:[employer] [id number] Number: Hospital [id number]: ([phone]) [id number] Repository [phone] () Date:2017-05-11P [address]ATTN: [place] [address]ZX: 05/12/2017 Secondary NOT GIVENUNK [place] Insurance:SELF PAY [facility] Number: Effective Repository Date:2017-05-11 05/11/2017 SHARON E [id number] Primary SHARON E ROCKDOB: [place] [address] Insurance:[employer] [id number] Number: Hospital [id number]: ([phone] [id number] Repository [phone] (HP) Date:2017-05-10P [address]ATTN: [place] [address]BT: 05/11/2017 Secondary NOT GIVENUNK [place] Insurance:SELF PAY [facility] Number: Effective Repository Date:2017-05-10 05/02/2017 SHARON E [id number] Primary SHARON E ROCKDOB: [place] [address] Insurance:[employer] [id number] Number: Hospital [id number]: ([phone] [id number] Repository [phone] (HP) Date:2017-04-11P [address]ATTN: [place] [address]EG: 05/02/2017 Secondary NOT GIVENUNK [place] Insurance:SELF PAY [facility] Number: Effective Repository Date:2017-04-11 05/02/2017 SHARON [id number] E Primary SHARON ROCKDOB: [place] [address] Insurance:[employer] [id number] Number: [facility] [id number]: [phone] [id number] Repository [phone] (HP) Date:2017-04-11 [address]ATTN: [place] [address]AL: 05/02/2017 Secondary NOT GIVENUNK [place] Insurance:SELF PAY [facility] Effective Repository Date:2017-05-01 05/02/2017 SHARON [id number] E Primary SHARON ROCKDOB: [place] [address] Insurance:CARESOURCEP [id number] Number: Hospital [id number]: [id number] Repository [phone] (HP) Date:2017-04-11 [address]ATTN: [place] [address]JU: 05/02/2017 Secondary NOT GIVENUNK [place] Insurance:SELF PAY [facility] Number: Effective Repository Date:2017-05-02 05/02/2017 SHARON [id number] E Primary SHARON ROCKDOB: [place] [address] Insurance:CARESOURCEP [id number] Number: Hospital [id number]: [id number] Repository [phone] () Date:2017-04-11 [address]ATTN: [place] [address]TR: 05/02/2017 Secondary NOT GIVENUNK [place] Insurance:SELF PAY [facility] Number: Effective Repository Date:2017-05-02 05/02/2017 SHARON E [id number] Primary SHARON E ROCKDOB: [place] [address] Insurance:CARESOURCEP [id number] Number: [facility] [address]Ius: [phone] [id number] Repository [phone] (HP) Date:2017-04-11 [address]ATTN: [place] [address]PB: 05/02/2017 Secondary NOT GIVENUNK [place] Insurance:SELF PAY [facility] Number: Effective Repository Date:2017-05-02 05/02/2017 SHARON E [id number] Primary SHARON E ROCKDOB: [place] [address] Insurance:CARESOURCEP [id number] [facility] Number: Hospital [id number]: [phone] [id number] Repository [phone] (HP) Date:2017-04-11 [address]ATTN: [place] [address]RQ: 05/02/2017 Secondary NOT GIVENUNK [place] Insurance:SELF PAY [facility] Number: Effective Repository Date:2017-05-02 05/02/2017 SHARON E [id number] Primary SHARON E ROCKDOB: [place] [address] Insurance:CARESOURCEP [id number] Number: Hospital [id number]: [phone] [id number] Repository [phone] () Date:2017-04-11 [address]ATTN: [place] [address]BH: 05/02/2017 Secondary NOT GIVENUNK [place] Insurance:SELF PAY [facility] Number: Effective Repository Date:2017-05-02 04/05/2017 SHARON E [id number] Primary SHARON E ROCKDOB: [place] [address] Insurance:CARESOURCEP [id number] Number: Hospital [id number]: [phone] [id number] Repository [phone] () Date:2017-03-28 [address]ATTN: [place] [address]QU: 04/05/2017 Secondary NOT GIVENUNK [place] Insurance:SELF PAY [facility] Number: Effective Repository Date:2017-04-05
== END ==
PROVIDERS: Family Provider Internal Medicine; PCP Internal Medicine; Referring Provider Surgery; Visit Provider Surgery
DX: G56.03 Carpal tunnel syndrome, bilateral upper limbs (principal)
CPT/HCPCS: 95886; 95911

== ENCOUNTER → 2018-04-12 15:55 | Outpatient (CLI) | payer MEDICAID, SELFPAY ==
[2018-04-12 15:01] VITALS: BMI 34.9
--- NOTE | 2018-04-12 15:58 | RAD_ITS ---
STUDY: X-RAY - LEFT RADIUS AND ULNA REASON FOR EXAM: Female, 48 years old. Pain. TECHNIQUE: 2 view(s) of the forearm. COMPARISON: Elbow, April 09, 2018. Left forearm, April 09, 2018. FINDINGS: There is no demonstrated soft tissue swelling. Normal visualized radius. Normal visualized ulna. There is no acute fracture, dislocation or destructive osseous pathology. The elbow and wrist are intact and unchanged from the previous study. RAD/Forearm 2 Views IMPRESSION: Normal x-ray examination of the radius and ulna. Electronically Signed: Roger Haywood DO at 16:27 EST Tel [phone], Service support ,
== END ==
PROVIDERS: Family Provider Internal Medicine; PCP Internal Medicine; Referring Provider Internal Medicine; Visit Provider Internal Medicine
DX: M79.632 Pain in left forearm (principal)
CPT/HCPCS: 73090

== ENCOUNTER 2018-05-09 15:02 | Observation (INO) | payer MEDICAID, SELFPAY ==
[2018-03-29 15:06] VITALS: BMI 36.3
[2018-05-01 13:27] VITALS: BMI 35.6
[2018-05-01 13:38] LABS: Hematocrit 39.5 % (37-47); Hemoglobin 13.4 g/dl (12.0-15.0); Mean Corp Hgb Conc 33.9 g/gl (32-36); Mean Corpuscular Volume 82.5 fL (81-99); Mean Platelet Vol. 9.6 fl (6.2-12.0); Platelet Count 179 K/mm3 (150-450); RBC Distribution Width CV 14.3 % (11.6-14.6); RBC Distribution Width SD 42.9 fl (35.1-43.9); Red Blood Count 4.79 M/mm3 (4.2-5.4); White Blood Count 4.4 K/mm3 (4.4-11.0)
[2018-05-01 13:39] LABS: Scan Indicated on CBC? Y/N NO
--- NOTE | 2018-05-07 17:57 | PCM.HP.BLA ---
History and Physical Date of Admission: 05/08/18 HISTORY OF PRESENT ILLNESS 48 year old woman presents for further evaluation for breast reconstruction. Her initial bilateral mastectomy was on 01/12/16. She underwent IV chemotherapy initially and this was followed by radiation therapy to the right breast. She finished the radiation therapy in 10/03. She underwent a TRAM flap in 05/07. She developed a hematoma in the TRAM flap followed by some TRAM flap compromise. About 20% of the flap was salvaged after drainage of a postop hematoma and after debridement of some compromise to the TRAM flap. She underwent wound care with the VAC and then with Silver dressing changes along with antibiotics and HBO therapy to try and salvage the right breast reconstruction and chest wall in preparation for further breast reconstruction. On 09/19/17, she continued her breast reconstruction process with revision right breast reconstruction with excision nonhealing radiation ulcer scar contour deformity and lateral rotation TRAM flap and delayed right breast reconstruction with placement of latissimus dorsi myocutaneous flap. Healing was uneventful and she continued her breast reconstruction process on 01/23/18 where she underwent revision right breast reconstruction with excision radiation scar contour deformity and revision left breast reconstruction with excision excess mastectomy skin scar contour deformity and delayed bilateral breast reconstruction with placement submuscular saline tissue expanders and placement FlexHD acellular dermal matrix graft (13 x 22 cm used for both breasts). After saline expansion had occurred in the office, she presents today for the next stage in her breast reconstruction process which is removal of saline tissue expanders with replacement cohesive gel implants. 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 late effect radiation right breast reconstruction. 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 compromised TRAM flap right breast reconstruction with partial loss. hematoma right breast reconstruction and chest wall. PAST SURGICAL HISTORY Thyroidectomy, subtotal Tubal ligation Hysterectomy with bilateral salpingectomy and left oophorectomy - 10/02 prophylactic mastectomy left breast by Dr. Ahn - 01/12/16 mastectomy right breast and bilateral sentinel node biopsies by Dr. Juárez - 01/12/16 port placement - 02/02 Delayed right breast reconstruction with unipedicle contralateral TRAM flap and abdominal wall reconstruction with placement of Strattice acellular dermal matrix graft (100 cm2) and revision radiation scar contour deformity right breast with multiple W-plasties (40 cm2) - 05/02/17 Surgical preparation right breast TRAM flap reconstruction with incision and drainage and evacuation hematoma - 05/05/17 Surgical preparation right breast reconstruction with excisional debridement compromised TRAM flap (256 cm2) - 05/23/17 Revision right breast reconstruction with excision nonhealing radiation ulcer scar contour deformity and lateral rotation TRAM flap and delayed right breast reconstruction with placement of latissimus dorsi myocutaneous flap - 09/19/17 Revision right breast reconstruction with excision radiation scar contour deformity and revision left breast reconstruction with excision excess mastectomy skin scar contour deformity and delayed bilateral breast reconstruction with placement submuscular saline tissue expanders and placement FlexHD acellular dermal matrix graft (13 x 22 cm used for both breasts) - 01/23/18 MEDICATIONS Zoloft. Valium. Mobic. Trazodone. Norvasc. Calcium Carbonate. ALLERGIES Poultry. FAMILY HISTORY negative for breast cancer. SOCIAL HISTORY Patient is a former smoker. Passive smoke exposure - no Alcohol Use - no Regular Exercise - yes Passive smoke exposure - yes REVIEW OF SYSTEMS General - Denies fever and fatigue. History of weight loss. Eyes - Denies eye pain. ENT - Denies nasal congestion and sore throat. CV - Denies chest pain or discomfort, fatigue, lightheadedness and shortness of breath with exertion. Resp - Denies cough and shortness of breath. Patient is a former smoker. GI - Denies nausea, vomiting, diarrhea and constipation. - Denies blood in urine and urinary frequency. MS - Complains of back pain. Denies joint pain, stiffness, muscle weakness and arthritis. Derm - Denies suspicious lesions and skin cancer. Has mastectomy scars and flap scars bilaterally in stages of breast reconstruction. Neuro - Denies poor balance and headaches. Psych - Complains of anxiety. Denies depression. Endo - Denies excessive urination and excessive thirst. Has thyroid disease. Has history of right breast cancer. Heme - Denies bleeding and abnormal bruising. PHYSICAL EXAMINATION General: well developed, well nourished, in no acute distress. Her bra size was 36 C prior to her breast cancer. Head: normocephalic and atraumatic. Eyes: PERRL. EOMI. Neck: no masses, thyromegaly, or abnormal cervical nodes. Breasts: Mastectomy vertical incision on the left breast is healed. There is an area of skin dimpling down to and adherent to the muscle. No breast masses palpated. There is some excess mastectomy skin scar contour deformity on the left breast mostly inferiorly and laterally. On the right breast there is a soft healed latissimus dorsi myocutaneous flap. There is surrounding radiation scarring at the skin edges with firmness from radiation effects. There is the remnant of her TRAM flap inferior and medially, about 20%. That flap is soft. No axillary adenopathy. Breast diameter is 12 cm bilaterally. The left breast IMF is elevated about 1.5 cm. On the right breast laterally is some radiation scarring. The IMF laterally on the right is more elevated than the medial aspect of the right breast where the remaining TRAM flap is located. The radiation scarring will act as a frame of reference for the IMF. May need to elevate the TRAM flap in the future as a medial crease. So will lower the IMF on the left to match the radiation scarring on the right laterally. Lungs: clear bilaterally to auscultation. Heart: regular rate and rhythm. Abdomen: normal bowel sounds; no hepatosplenomegaly no ventral,umbilical hernias or masses noted. There is healed TRAM flap scar in lower anterior abdominal wall. Had some residual seroma postop that required an ultrasound guided drainage. Pulses: pulses normal in all 4 extremities. Extremities: no clubbing, cyanosis, edema, or deformity noted with normal full range of motion of all joints. Neurologic: cranial nerves II-XII grossly intact. Skin: no rashes. The back wound has healed. Cervical Nodes: no significant adenopathy. Axillary Nodes: no significant adenopathy. Inguinal Nodes: no significant adenopathy. Psych: alert and cooperative; normal mood and affect; normal attention span and concentration. ASSESSMENT 1. Right breast cancer. 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 4. Disproportion reconstructed breasts. 5. Late effect radiation right breast. 6. 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 7. Deformity reconstructed left breast with excess mastectomy skin scar contour deformity. 8. History of compromised TRAM flap right breast reconstruction with partial loss. 9. Estrogen receptor status negative. 10. Former smoker. PLAN She presents today for the next stage in her breast reconstruction process which is revision of the right breast reconstruction with excision painful radiation soft tissue necrosis scar contour deformity and revision of the left breast reconstruction with excision excess mastectomy skin scar contour deformity depending on the size of the right breast reconstruction. The saline tissue expanders will be removed with replacement cohesive gel implants. Will also revise the reconstructed breasts with placement of acellular dermal matrix graft inferolateral slings. The left breast IMF is elevated about 1.5 cm. On the right breast laterally is some radiation scarring. The IMF laterally on the right is more elevated than the medial aspect of the right breast where the remaining TRAM flap is located. The radiation scarring will act as a frame of reference for the IMF. May need to elevate the TRAM flap in the future as a medial crease. Also will lower the IMF on the left to match the radiation scarring on the right laterally. This would be aided by capsular plication and the acellular dermal matrix graft inferolateral slings. I anticipate a radiation scar contracture contour deformity that will necessitate multiple W-plasty reconstruction to maximize the contour of the right breast and minimize some of the radiation scar contracture forces. I will wait on this revision procedure until after the implants have been placed and are healed. Surgery will be done under general anesthesia with a surgical observation overnight stay in the hospital. She will have drains in for several days and be maintained on antibiotics until the drains are removed. She will keep her head elevated during the initial postop period. She finished HBO therapy for her soft tissue radionecrosis after placement of the latissimus dorsi flap. Also after placement of the cohesive gel implants in the postop period, she may resume HBO treatments to maximize healing from the soft tissue radionecrosis from her radiation therapy. At the time of surgery, will treat perioperatively with Vancomycin and Levaquin. At surgery, if there is abnormal fluid present, then would send it for culture. A positive culture may necessitate antibiotic modification. Any tissue that is excised will be sent to Pathology for analysis to rule out carcinoma. The patient was informed of the risks and complications of the procedure including alternatives to surgery. These were discussed with the patient personally. The patient voices understanding and wishes to proceed. Some of the risks and complications were included in a form from the [place] [employer]. Encouraged the patient to stop smoking as it may have deleterious effects on wound healing. She states she has stopped smoking after her breast cancer diagnosis.
[2018-05-08] VITALS (10 sets, daily range): BP systolic 87–126; BP diastolic 43–78; PULSE 70–98; RESP 16–18; TEMP 36.6–37; O2SAT 92–99; BMI 37.0; BMI 35.9
[2018-05-08] MEDS: Vancomycin IV 1,000 MG/200 ML BAG 200 MG IV (07:04)
[2018-05-08] MEDS: levoFLOXacin IV 500 MG/100 ML BAG 100 MG IV (08:22)
[2018-05-08] MEDS: Methylene Blue 1% 100 MG/10 ML VIAL (10:00)
--- NOTE | 2018-05-08 11:03 | RAD_ITS ---
STUDY: X-RAY - ABDOMEN/PELVIS REASON FOR EXAM: Female, 48 years old. Lost needle. TECHNIQUE: Single AP view of the abdomen / pelvis. COMPARISON: None. FINDINGS: A linear metallic density is seen overlying the pedicle of the T11 vertebrae on the left side suggestive of a needle. Findings suggestive of a 1 cm calculus in the left renal pelvis. RAD/Abdomen Single View IMPRESSION: Findings suggestive of a retained needle overlying the medial left upper quadrant as described. Electronically Signed: Jin Kingston MD at 15:06 EST , Service support ,
--- NOTE | 2018-05-08 15:32 | PCM.OPRPT ---
Report of Operation Date of Procedure: 05/08/18 Pre-Operative Diagnosis: 1. Right breast cancer. 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 4. Disproportion reconstructed breasts with asymmetric inframammary folds. 5. Late effect radiation right breast. 6. 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 7 History of compromised TRAM flap right breast reconstruction with partial loss. 8. Estrogen receptor status negative. 9. Former smoker. Post-Operative Diagnosis: Same. Surgery/Procedure Performed:: 1. Delayed right breast reconstruction with removal of saline tissue in home sales representative with replacement cohesive gel implant (605 ml). 2. Revision right breast reconstruction with multiple capsulotomies and revision asymmetric inframammary fold with capsular plication and placement of FlexHD acellular dermal matrix graft inferolateral sling (286 cm2). 3. Delayed left breast reconstruction with removal of saline tissue in home sales representative with replacement cohesive gel implant (545 ml). 4. Revision left breast reconstruction with multiple capsulotomies and revision asymmetric inframammary fold with capsular plication and placement of FlexHD acellular dermal matrix graft inferolateral sling (286 cm2). Description of Surgical Findings:: 48 year old woman presents for further evaluation for breast reconstruction. Her initial bilateral mastectomy was on 01/12/16. She underwent IV chemotherapy initially and this was followed by radiation therapy to the right breast. She finished the radiation therapy in 10/03. She underwent a TRAM flap in 05/07. She developed a hematoma in the TRAM flap followed by some TRAM flap compromise. About 20% of the flap was salvaged after drainage of a postop hematoma and after debridement of some compromise to the TRAM flap. She underwent wound care with the VAC and then with Silver dressing changes along with antibiotics and HBO therapy to try and salvage the right breast reconstruction and chest wall in preparation for further breast reconstruction. On 09/19/17, she continued her breast reconstruction process with revision right breast reconstruction with excision nonhealing radiation ulcer scar contour deformity and lateral rotation TRAM flap and delayed right breast reconstruction with placement of latissimus dorsi myocutaneous flap. Healing was uneventful and she continued her breast reconstruction process on 01/23/18 where she underwent revision right breast reconstruction with excision radiation scar contour deformity and revision left breast reconstruction with excision excess mastectomy skin scar contour deformity and delayed bilateral breast reconstruction with placement submuscular saline tissue expanders and placement FlexHD acellular dermal matrix graft (13 x 22 cm used for both breasts). After saline expansion had occurred in the office, she presents today for the next stage in her breast reconstruction process which is removal of saline tissue expanders with replacement cohesive gel implants. Patient was informed of the risks and complications of the procedure including alternatives to surgery. These were discussed with the patient personally. Patient voices understanding and wishes to proceed. Some of the risks and complications were included in a form from the [employer]. IV Fluids - 2100 ml. Urine Output - 850 ml. I used Cascilla MemoryGel Smooth Moderate Plus Xtra Profile Breast Implant, (605 ml on the right). Reference Number - [id number]. Lot Number - [id number]. Serial Number - [id number]. I used [employer] FlexHD Acellular Dermal Matrix Graft, Pliable Shaped, Perforated, Large (13 x 22 cm, 286 cm2, on the right). Item Number - [id number]. Serial Number - [id number]. Expiration - November 27, 2019. I used Geri absorbable hemostat, (2 vials on the right). Reference Number - [id number]. Lot Number - [id number]. Expiration - November 14, 2022. I used Cascilla MemoryGel Smooth Moderate Plus Xtra Profile Breast Implant, (545 ml on the left). Reference Number - [id number]. Lot Number - [id number]. Serial Number - [id number]. I used [facility] FlexHD Acellular Dermal Matrix Graft, Pliable Shaped, Perforated, Large (13 x 22 cm, 286 cm2, on the left). Item Number - [id number]. Serial Number - [id number]. Expiration - April 08, 2021. I used Geri absorbable hemostat, (one vial on the left). Reference Number - [id number]. Lot Number - [id number]. Expiration - January 14, 2023. battery test engineer: Xiomara Estrada. Type of Anesthesia:: General Specimen's removed: None. Drains: Kolton x3 (2 in right breast and one in left breast). Estimated Blood Loss (mL): 250 ml. Fluids Replaced: 2950 ml (IV Fluids 2100 ml and Urine Output 850 ml). Description of Procedure: While the patient was sitting in the preop area, markings were made from the sternal midline to the umbilicus. The inframammary folds were marked bilaterally. She was then taken to the OR in supine position and placed under general anethesia. SCD's were placed for DVT prophylaxis. Perioperative antibiotics were given intravenously. Her breasts were prepped and draped in the usual fashion. A encinas catheter was placed. Using xylocaine with epinephrine, the lateral mastectomy scar and latissimus dorsi scar on the right breast was infiltrated. After waiting 5 minutes for the anesthetic to take effect, an incision was made in the right breast through the previous mastectomy scar and latissimus dorsi scar down through the subcutaneous tissue until the capsule was seen. A capsulotomy was performed and the saline tissue in home sales representative was removed. No abnormal fluid collection was seen in the breast pocket. So no culture will be sent. Proceeding with multiple capsulotomies, I opened up the right breast pocket medially and superiorly. The previous acellular dermal matrix graft was incorporated into the surrounding tissue. I then placed a 545 ml moderate plus Xtra profile sizer into the breast pocket and closed the wound temporarily with 3-0 Vicryl simple running suture. The patient was placed in the sitting position. Good shape and contour was noted in the right breast, and I felt a larger would fit. Patient was then placed back in the supine position and sizer was removed. I then tried larger sizers into the breast pocket, first a 605 ml and then a 645 ml. Good shape and contour was noted in the right breast. However, the incision was a little snug with the 645 ml sizer. So we settled for the 605 ml sizer. This one gave us the best shape and contour and projection medially and superiorly. I then revised the asymmetric inframammary fold on the right by elevating it about 1 cm with capsular plication with multiple 2-0 Vicryl interrupted sutures to secure the dermis of the breast skin to the chest wall. At the time of the left breast reconstruction, I will then revise the asymmetric inframammary fold on the left by lowering it about 1.5 cm. The incision was temporarily closed with 3-0 Vicryl simple running suture. I then went to the left breast. Using xylocaine with epinephrine, the horizontal scar on the left breast was infiltrated. After waiting 5 minutes for the anesthetic to take effect, a horizontal incision was made through the previous mastectomy scar down through the subcutaneous tissue until the capsule was seen. A capsulotomy was performed and the saline tissue in home sales representative was removed. No abnormal fluid collection was seen in the breast pocket. So no culture was sent. Proceeding with multiple capsulotomies, I opened up the left breast pocket inferiorly and medially. The previous acellular dermal matrix graft was incorporated into the surrounding tissue. I then placed a 605 ml moderate plus Xtra profile sizer into the breast pocket and closed the wound temporarily with 3-0 Vicryl simple running suture. The patient was placed in the sitting position. Good shape and contour was noted in the left breast but when pushed more centrally to stimulate being in a bra, there appeared to be too much fullness medially as compared to the right side. Patient was then placed back in the supine position and sizer was removed. I then tried the 545 ml sizer into the breast pocket. This one gave us the best shape and contour and projection medially and superiorly when the implant was pushed more centrally to stimulate being in a bra. I then revised the asymmetric inframammary fold on the left by lowering it about 1.5 cm with capsular plication with multiple 2-0 Vicryl interrupted sutures to secure the dermis of the breast skin to the chest wall. I had trouble with the suture placement a couple of times as the needle broke off. I had difficulty finding it by palpation and obtained an xray to document its presence. I then needed the C-arm to locate it and remove it. This necessitated a small horizontal medial incision for its removal. The incision was in the area of where the new lowered inframammary fold will be located. I secured the dermis of the small incision to the chest wall with 0 Vicryl interrupted suture to help re-enforce the crease. I used the larger needle at this time since a second 2-0 Vicryl needle broke off when I was placing a lateral suture to re-create the inframammary fold. I made another small horizontal incision laterally to retrieve that needle which did not need C-arm for assistance. I secured the dermis of this small horizontal lateral incision to the chest wall with 0 Vicryl interrupted suture to help re-enforce the crease. The 545 ml sizer was removed. I place a size 15 Kolton drain through a separate stab incision laterally and secured to the skin with 3-0 Nylon suture. The wound was irrigated with saline. Hemostasis was obtained with electrocautery. I sprayed Geri absorbable hemostat into the left breast wound to minimize seroma formation. I used one vial. I then placed a piece of [employer] (MTF) pliable shaped perforated large, size 13 x 22 cm, Acellular Dermal Matrix Graft into the left breast wound to provide support to the inferior and lateral aspect of the breast pocket. This graft was secured to the chest wall with 3-0 Vicryl simple interrupted sutures. I used a double layer of suture support. I changed my gloves at this point before placing the implant. I then placed the Cascilla MemoryGel Breast Implant, Moderate Plus Xtra profile (545 ml), into the left breast pocket. Good shape and contour was noted in the left breast reconstruction. The left breast wound was closed with 3-0 Vicryl figure of eight interrupted sutures for the deeper subcutaneous tissue and capsular layer laterally to provide additional support. The deep dermis and subcutaneous tissue was approximated with 3-0 Monocryl interrupted sutures. The skin was approximated with 4-0 V-lock unidirectional barbed running subcuticular suture. This was followed by Histoacryl skin tissue adhesive. The two small horizontal incisions more inferiorly were closed in a layered fashion with 3-0 Monocryl interrupted sutures for the deep dermis and subcutaneous tissue. The skin was approximated with 4-0 Prolene simple interrupted and vertical mattress interrupted sutures. This was followed by Histoacryl skin tissue adhesive. Going back to the right breast, the 605 ml sizer was removed. I placed two size 15 Kolton drains through separate stab incisions inferiorly and laterally and secured to the skin with 3-0 Nylon suture. The wound was irrigated with saline. Hemostasis was obtained with electrocautery. I sprayed Geri absorbable hemostat into the right breast wound to minimize seroma formation. I used two vials. I then placed a piece of [employer] Foundation (MTF) pliable shaped perforated large, size 13 x 22 cm, Acellular Dermal Matrix Graft into the right breast wound to provide support to the inferior and lateral aspect of the breast pocket. This graft was secured to the chest wall with 3-0 Vicryl simple interrupted sutures. I used a double layer of suture support. I then placed the Cascilla MemoryGel Breast Implant, Moderate Plus Xtra profile (605 ml), into the breast pocket. One Kolton drain was used to drain the breast pocket and I used the other Kolton drain to drain the lateral aspect of the breast external to the graft. I used a second drain on the right because of the history of radiation and the residual pocket laterally from the placement of the latissimus dorsi flap. Good shape and contour was noted in the right breast reconstruction. The right breast wound was then closed with 3-0 Vicryl figure of eight interrupted sutures for the deeper subcutaneous tissue and capsular layer. The deep dermis and subcutaneous tissue was approximated with 3-0 Monocryl interrupted sutures. The skin was approximated with 4-0 Prolene vertical mattress interrupted sutures inferiorly and 4-0 V lock unidirectional barbed running subcuticular suture. This was followed by Histoacryl skin tissue adhesive. A Kerlix gauze dressing was applied followed by an ABD pad and a surgical bra. Patient tolerated the procedure well and was sent to PACU in satisfactory condition. She will be sent upstairs for postop care. The drains will be removed in 10-14 days. The sutures will be removed in 2-3 weeks. Grafts/Implants Used: Cascilla cohesive gel implants x2 and FlexHD acellular dermal graft x2. - Complications Needle broke off in the subcutaneous tissue on the left that required xray and C-arm assistance for retrieval. - Admit VTE Documentation VTE Present on Admission: No VTE Mechan Device Prophylaxis: SCD's VTE Pharm Prophylaxis ordered?: Yes Code Visit Surgery Charges CPT - 21924-96 ICD-10 - C50.911, F40.298, Z90.13, N65.1, T66.xxxS, N65.0, Z17.1, Z87.891 09138 C50.911, F40.298, Z90.13, N65.1, N65.0, Z17.1, Z87.891 56992-11 C50.911, N65.1, T66.xxxS, N65.0, F40.298, Z90.13, Z17.1, Z87.891 31552 C50.911, N65.1, N65.0, F40.298, Z90.13, Z17.1, Z87.891 [id number] C50.911, F40.298, Z90.13, N65.1, T66.xxxS, N65.0, Z17.1, Z87.891
[2018-05-08] MEDS: oxyCODONE 5 MG Tablet 10 MG PO (18:54)
[2018-05-08 19:18] LABS: Anion Gap 11 (5-15); BUN 11 mg/dL (7-18); BUN/Creat Ratio 12.9 RATIO (10-20); Calcium,Total 8.7 mg/dL (8.5-10.1); Chloride 109 mmol/L (98-107); Creatinine, Serum 0.85 mg/dL (0.55-1.02); EST Glomerular Filtration Rate 76 mL/min (>60); Est Glom Filt Rate - Afr Amer 91 mL/min (>60); Estimated Creatinine Clearance 60.41 ml/min; Glucose 123 mg/dL (74-106); Potassium 4.8 mmol/L (3.5-5.1); Sodium Level 140 mmol/L (136-145)
--- NOTE | 2018-05-08 19:29 | PCM.RX.CS ---
Consult Pharmacy has been consulted to manage selected antiobiotic: Vancomycin Type of Consult: New start Suspected Infection: Skin/Soft tissue Prior Doses of Antibiotics Received/Current Regimen: Received 1000mg IV x1 preop at 07:04 this morning. Labs: Sodium 140 mmol/L (136-145) 05/08/18 18:30 Potassium 4.8 mmol/L (3.5-5.1) 05/08/18 18:30 Chloride 109 mmol/L (98-107) H 05/08/18 18:30 Carbon Dioxide 20.0 mmol/L (21.0-32.0) L 05/08/18 18:30 Anion Gap 11 (5-15) 05/08/18 18:30 BUN 11 mg/dL (7-18) 05/08/18 18:30 Creatinine 0.85 mg/dL (0.55-1.02) 05/08/18 18:30 Est GFR (MDRD) Af Amer 91 mL/min (>60) 05/08/18 18:30 Est GFR (MDRD) Non-Af 76 mL/min (>60) 05/08/18 18:30 BUN/Creatinine Ratio 12.9 RATIO (10-20) 05/08/18 18:30 Glucose 123 mg/dL (74-106) H 05/08/18 18:30 Weight used for dosin.2 kg Estimated Creatinine Clearance: 60 ml/min Goal Trough: 10-15 mcg/mL Pharmacy Plan for Drug Dosing: Continue with 750mg IV q12h to start at 20:00 tonight. Note that pharmacy had to order labwork postop tonight so that a SCr could be obtained to dose the vancomycin. Since that result is back, we will now send up a dose DAIN to give at 20:00. A trough will be ordered to be drawn before the 4th dose. Pharmacy Service will continue to monitor and adjust dosing as required. Follow-Up Labs: Trough Vancomycin Labs to be done on [date and time ordered]: 05/09/18 at 19:30
[2018-05-08] MEDS: Docusate Sodium 100 MG Capsule PO (20:12)
[2018-05-08] MEDS: diazePAM 5 MG Tablet PO (20:12)
[2018-05-08] MEDS: Atorvastatin Calcium 20 MG Tablet PO (20:12)
[2018-05-08] MEDS: traZODone 50 MG Tablet PO (20:13)
[2018-05-08] MEDS: HYDROmorphone 1 MG/ML Syringe IV (20:17)
[2018-05-08] MEDS: fentaNYL 25 MCG Patch TRANSDERM. (22:54)
[2018-05-08] MEDS: HYDROmorphone 1 MG/ML Syringe 2 MG IV (23:25)
[2018-05-09] VITALS (8 sets, daily range): BP systolic 116–130; BP diastolic 59–80; PULSE 81–112; RESP 16–18; TEMP 36.7–37; O2SAT 84–100
[2018-05-09] MEDS: HYDROmorphone 1 MG/ML Syringe 2 MG IV ×4 (02:51→20:03)
[2018-05-09] MEDS: 0.9% NaCl Peripheral Flush Adult/Peds IV ×3 (02:57→20:03)
[2018-05-09] MEDS: Enoxaparin 30 MG/0.3 ML Syringe SC (05:13)
[2018-05-09] MEDS: Sertraline 100 MG Tablet 150 MG PO (05:14)
[2018-05-09] MEDS: oxyCODONE 5 MG Tablet 10 MG PO ×3 (05:17→18:23)
[2018-05-09] MEDS: Lactated Ringers 1,000 ML 60 ML IV (05:29)
[2018-05-09 06:27] LABS: Hematocrit 32.5 % (37-47); Hemoglobin 10.9 g/dl (12.0-15.0); Mean Corp Hgb Conc 33.5 g/gl (32-36); Mean Corpuscular Hgb 28.2 pg (27.0-32.0); Mean Platelet Vol. 9.7 fl (6.2-12.0); Platelet Count 144 K/mm3 (150-450); RBC Distribution Width CV 14.8 % (11.6-14.6); RBC Distribution Width SD 45.1 fl (35.1-43.9); Red Blood Count 3.87 M/mm3 (4.2-5.4); White Blood Count 7.9 K/mm3 (4.4-11.0)
[2018-05-09 06:31] LABS: Scan Indicated on CBC? Y/N NO
[2018-05-09 06:41] LABS: ALB/GLOB Ratio 1.1 RATIO (0.9-2.4); AST(SGOT) 18 U/L (15-37); Alanine Aminotransfer ALT/SGPT 21 U/L (13-56); Albumin, Serum 3.3 g/dL (3.2-5.0); Alkaline Phosphatase 130 U/L (45-117); Anion Gap 11 (5-15); BUN 12 mg/dL (7-18); BUN/Creat Ratio 15.9 RATIO (10-20); Calcium,Total 8.4 mg/dL (8.5-10.1); Chloride 108 mmol/L (98-107); Creatinine, Serum 0.76 mg/dL (0.55-1.02); EST Glomerular Filtration Rate 86 mL/min (>60); Est Glom Filt Rate - Afr Amer 104 mL/min (>60); Estimated Creatinine Clearance 67.57 ml/min; Glucose 108 mg/dL (74-106); Prealbumin 19.6 mg/dL (20.0-40.0); Protein, Total 6.3 g/dL (6.4-8.2); Sodium Level 140 mmol/L (136-145)
[2018-05-09] MEDS: levoFLOXacin IV 500 MG/100 ML BAG 100 MG IV (09:42)
[2018-05-09] MEDS: Docusate Sodium 100 MG Capsule PO ×2 (10:08→21:03)
[2018-05-09] MEDS: Pregabalin 75 MG Capsule 150 MG PO ×2 (10:08→21:03)
[2018-05-09] MEDS: Iron Polysaccharide Complex 150 MG CAPSULE PO (10:08)
[2018-05-09] MEDS: Fluticasone 0.05% 1 SPRAY NASAL.SRY NASAL (10:45)
--- NOTE | 2018-05-09 15:14 | PCM.PN.SRG ---
Subjective: Postop #1 Patient has some incisional pain mostly on the left. - Physical Exam General: Alert, Oriented x3 HEENT: PERRLA, EOMI Oral: Moist Mucosa Neck: Supple Abdomen: Soft, Non-Distended Skin: Incision - breast incisions are dry and intact. Breasts are soft and symmetrical. No evidence of hematoma. No vascular compromise noted on the breast skin. Neurological: Cranial nerves II-XII grossly intact Psych/Mental Status: Normal Affect, Appropriate Vital Signs Temp Pulse Resp BP Pulse Ox 98.3 F 112 H 18 130/80 H 97 05/09/18 13:44 05/09/18 13:44 05/09/18 13:44 05/09/18 13:44 05/09/18 13:44 Oxygen Flow Rate (L/min) 2 Oxygen Delivery Method Nasal Cannula Weight: 190 lb 0.615 oz Body Mass Index (BMI) 35.9 Intake and Output for Last 24 Hours 05/07/18 05/08/18 05/09/18 23:59 23:59 23:59 Intake Total 1999 / 1887 Output Total 1025 / 1025 2027 / 2027 Balance 975 / 975 -140 / -140 Drainage 55 ml yesterday, 178 ml today. Laboratory Tests Past 24 Hrs 05/08/18 05/09/18 05/09/18 18:30 05:30 05:30 WBC 7.9 RBC 3.87 L Hgb 10.9 L Hct 32.5 L MCV 84.0 MCH 28.2 MCHC 33.5 RDW 14.8 H RDW Differential 45.1 H Plt Count 144 L MPV 9.7 Sodium 140 140 Potassium 4.8 4.0 Chloride 109 H 108 H Carbon Dioxide 20.0 L 21.0 Anion Gap 11 11 BUN 11 12 Creatinine 0.85 0.76 Estim Creat Clear Calc 60.41 67.57 Est GFR (MDRD) Af Amer 91 104 Est GFR (MDRD) Non-Af 76 86 BUN/Creatinine Ratio 12.9 15.9 Glucose 123 H 108 H Calcium 8.7 8.4 L Total Bilirubin 0.50 AST 18 ALT 21 Alkaline Phosphatase 130 H Total Protein 6.3 L Albumin 3.3 Globulin 3.0 Albumin/Globulin Ratio 1.1 Prealbumin 19.6 L Medical Necessity - Tobacco Use Smoking Status: Former smoker Tobacco Use: Cigarettes Assessment/Plan All Active Problems (Last Reviewed 05/01/18 @ 13:26 by Eden Velazquez) Left forearm pain (Acute) Seasonal allergies (Acute) Back pain (Acute) BONE FRACTURES - BROKEN RIGHT ARM (Acute) Breast lump in female (Acute) Breast cancer in female (Acute) History of emotional problems (Acute) Fibroids (Acute) Deformity of reconstructed breast (Acute) Postoperative hematoma of subcutaneous tissue following non-dermatologic procedure (Acute) Hematoma of breast (Acute) Partial loss of skin graft (Acute) Medical management (Acute) Disproportion of reconstructed breast (Acute) 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 Right breast cancer. 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 4. Disproportion reconstructed breasts with asymmetric inframammary folds. 5. Late effect radiation right breast. 6. 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 7. History of compromised TRAM flap right breast reconstruction with partial loss. 8. Estrogen receptor status negative. 9. Former smoker. 10. s/p delayed right breast reconstruction with removal of saline tissue training and documentation specialist with replacement cohesive gel implant (605 ml) and revision right breast reconstruction with multiple capsulotomies and revision asymmetric inframammary fold with capsular plication and placement of FlexHD acellular dermal matrix graft inferolateral sling (286 cm2) and delayed left breast reconstruction with removal of saline tissue training and documentation specialist with replacement cohesive gel implant (545 ml) and revision left breast reconstruction with multiple capsulotomies and revision asymmetric inframammary fold with capsular plication and placement of FlexHD acellular dermal matrix graft inferolateral sling (286 cm2). Patient has incisional pain, mostly on the left. Incisions are dry and intact. Breasts are soft and symmetrical. Still needs IV analgesia. Will wean to po analgesia for discharge. Anticipate discharge tomorrow. Keep head elevated. Prealbumin was 19.6. Encourage nutritional supplementation with protein to help the healing process. Will remove the drains in the office. Continue perioperative antibiotics. Will discharge on po antibiotics until the drains are removed.
--- NOTE | 2018-05-09 15:20 | NURSING ---
student nurses charting reviewed for educational teaching purposes only.
[2018-05-09] MEDS: DiphenhydrAMINE 25 MG Capsule 50 MG PO (16:37)
[2018-05-09 20:17] LABS: Vancomycin, Trough Level 8.6 ug/mL (5.0-15.0)
--- NOTE | 2018-05-09 20:35 | PCM.RX.CS ---
Consult Pharmacy has been consulted to manage selected antiobiotic: Vancomycin Type of Consult: Follow-up Suspected Infection: Skin/Soft tissue Prior Doses of Antibiotics Received/Current Regimen: Medications Vancomycin HCl 750 mg/ Sodium (Chloride) 265 mls @ 250 mls/hr IV Q12H ANNA Last Admin: 05/09/18 19:54 Dose: 250 mls/hr Labs: Sodium 140 mmol/L (136-145) 05/09/18 05:30 Potassium 4.0 mmol/L (3.5-5.1) 05/09/18 05:30 Chloride 108 mmol/L (98-107) H 05/09/18 05:30 Carbon Dioxide 21.0 mmol/L (21.0-32.0) 05/09/18 05:30 Anion Gap 11 (5-15) 05/09/18 05:30 BUN 12 mg/dL (7-18) 05/09/18 05:30 Creatinine 0.76 mg/dL (0.55-1.02) 05/09/18 05:30 Est GFR (MDRD) Af Amer 104 mL/min (>60) 05/09/18 05:30 Est GFR (MDRD) Non-Af 86 mL/min (>60) 05/09/18 05:30 BUN/Creatinine Ratio 15.9 RATIO (10-20) 05/09/18 05:30 Glucose 108 mg/dL (74-106) H 05/09/18 05:30 Vancomycin Trough 8.6 ug/mL (5.0-15.0) 05/09/18 19:35 Goal Trough: 10-15 mcg/mL Pharmacy Plan for Drug Dosing: The patient had a trough drawn ~12hrs from last administered dose which resulted in a value of 8.6 (drawn appropriately). Since goal trough is 10-15, will plan on increasing vancomycin dose to 1g IV Q12hrs for the next dose. Will check a trough prior to the 4th dose of new regimen. PLAN/RECOMMENDATIONS 1. Vancomycin 1000mg IV Q12hrs to start 05/10/18 @0800 2. Trough scheduled 05/11/18 @1930 3. Pharmacy Service will continue to monitor and adjust dosing as required.
--- NOTE | 2018-05-09 20:44 | NURSING ---
Called to room by , stated patient was breathing abnormally and was concerned. Pt is on oxygen monitor, noted to be 96%. This RN to bedside to assess. Pt sleeping and having periods apnea. Breathing is normal and not using accessory muscles. Will continue to monitor.
[2018-05-09] MEDS: traZODone 50 MG Tablet PO (21:03)
[2018-05-09] MEDS: Atorvastatin Calcium 20 MG Tablet PO (21:03)
[2018-05-09] MEDS: diazePAM 5 MG Tablet PO (21:03)
[2018-05-10 00:24] VITALS: BP 135/77; PULSE 114; RESP 18; TEMP 37.7; O2SAT 96
[2018-05-10] MEDS: Lactated Ringers 1,000 ML 60 ML IV (00:26)
[2018-05-10] MEDS: Acetaminophen 325 MG Tablet 650 MG PO ×2 (00:26→14:20)
[2018-05-10] MEDS: oxyCODONE 5 MG Tablet 10 MG PO (03:12)
--- NOTE | 2018-05-10 04:57 | NURSING ---
Addendum entered by Kiana Abraham 05/10/18 05:06: Removed fentanyl patch, per pts request, wasted with Marilyn CONSTANTINO. Pt felt patch was causing her to 'itch'. Visible redness and irritation to face and chest area. Denies SOB or tightness of throat. Given 50 mg of Benadryl. Updating pts nurse on care. Original Note: Removed fentanyl patch, per pts request. Pt felt patch was causing her to 'itch'. Visible redness and irritation to face and chest area. Denies SOB or tightness of throat. Given 50 mg of Benadryl. Updating pts nurse on care.
[2018-05-10] MEDS: DiphenhydrAMINE 25 MG Capsule 50 MG PO (05:02)
[2018-05-10 05:43] VITALS: BP 139/59; PULSE 107; RESP 18; TEMP 36.8; O2SAT 94
[2018-05-10] MEDS: diazePAM 5 MG Tablet PO (05:50)
[2018-05-10] MEDS: Enoxaparin 30 MG/0.3 ML Syringe SC (05:50)
[2018-05-10] MEDS: Sertraline 100 MG Tablet 150 MG PO (05:50)
[2018-05-10 07:41] VITALS: BP 137/70; PULSE 105; RESP 16; TEMP 37; O2SAT 93
[2018-05-10] MEDS: Vancomycin IV 1,000 MG/200 ML BAG 200 MG IV (07:55)
[2018-05-10 08:40] VITALS: O2SAT 93
[2018-05-10] MEDS: levoFLOXacin 500 MG Tablet PO (10:14)
[2018-05-10] MEDS: Iron Polysaccharide Complex 150 MG CAPSULE PO (10:15)
[2018-05-10] MEDS: Docusate Sodium 100 MG Capsule PO (10:15)
[2018-05-10] MEDS: Fluticasone 0.05% 1 SPRAY NASAL.SRY NASAL (10:15)
[2018-05-10] MEDS: Pregabalin 75 MG Capsule 150 MG PO (10:19)
--- NOTE | 2018-05-10 12:47 | PCM.PN.SRG ---
Subjective: Postop #2 Patient is resting comfortably. Tolerating po analgesia. She removed the Duragesic Patch as it was causing itching. - Physical Exam General: Alert, Oriented x3 HEENT: PERRLA, EOMI Oral: Moist Mucosa Neck: Supple Abdomen: Soft, Non-Distended Skin: Incision - breast incisions are dry and intact. Breasts are soft and symmetrical. No clinical evidence of hematoma. No vascular compromise noted on the breast skin. Neurological: Cranial nerves II-XII grossly intact Psych/Mental Status: Normal Affect, Appropriate Vital Signs Temp Pulse Resp BP Pulse Ox 98.6 F 105 H 16 137/70 H 93 05/10/18 07:41 05/10/18 07:41 05/10/18 07:41 05/10/18 07:41 05/10/18 08:40 Oxygen Flow Rate (L/min) 1 Oxygen Delivery Method Room Air Weight: 190 lb 0.615 oz Body Mass Index (BMI) 35.9 Intake and Output for Last 24 Hours 05/08/18 05/09/18 05/10/18 23:59 23:59 23:59 Intake Total 1999 / 1999 2756 / 2756 1292 / 1292 Output Total 1025 / 1025 2049 / 2049 1560 / 1560 Balance 975 / 975 706 / 706 -268 / -268 Drainage 200 ml yesterday, 160 ml today. Laboratory Tests Past 24 Hrs 05/09/18 19:35 Vancomycin Trough 8.6 Medical Necessity - Tobacco Use Smoking Status: Former smoker Tobacco Use: Cigarettes Assessment/Plan All Active Problems (Last Reviewed 05/01/18 @ 13:26 by Eden Velazquez) Left forearm pain (Acute) Seasonal allergies (Acute) Back pain (Acute) BONE FRACTURES - BROKEN RIGHT ARM (Acute) Breast lump in female (Acute) Breast cancer in female (Acute) History of emotional problems (Acute) Fibroids (Acute) Deformity of reconstructed breast (Acute) Postoperative hematoma of subcutaneous tissue following non-dermatologic procedure (Acute) Hematoma of breast (Acute) Partial loss of skin graft (Acute) Medical management (Acute) Disproportion of reconstructed breast (Acute) 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 Right breast cancer. 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 4. Disproportion reconstructed breasts with asymmetric inframammary folds. 5. Late effect radiation right breast. 6. 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 7. History of compromised TRAM flap right breast reconstruction with partial loss. 8. Estrogen receptor status negative. 9. Former smoker. 10. s/p delayed right breast reconstruction with removal of saline tissue recruiting operations consultant with replacement cohesive gel implant (605 ml) and revision right breast reconstruction with multiple capsulotomies and revision asymmetric inframammary fold with capsular plication and placement of FlexHD acellular dermal matrix graft inferolateral sling (286 cm2) and delayed left breast reconstruction with removal of saline tissue recruiting operations consultant with replacement cohesive gel implant (545 ml) and revision left breast reconstruction with multiple capsulotomies and revision asymmetric inframammary fold with capsular plication and placement of FlexHD acellular dermal matrix graft inferolateral sling (286 cm2). Patient has incisional pain, mostly on the left. Incisions are dry and intact. Breasts are soft and symmetrical. She is tolerating po analgesia. Her itching is better once the Duragesic Patch was removed. Keep head elevated. Prealbumin was 19.6. Encourage nutritional supplementation with protein to help the healing process. Discharge home today. Wrote script for Levaquin for 14 days. Wrote scripts for Percocet for pain (50 tabs) and for Valium for spasm (30 tabs). Wrote scripts for Phenergan for nausea (30 tabs) and a refill and for Colace for constipation (60 tabs). Followup office one week. Will remove the drains in the office.
--- NOTE | 2018-05-10 12:56 | PCM.DC ---
You will use the following diet at home:: No restrictions Discharge Activity: May not drive while taking narcotic pain medications., May Not Shower - until the drains are removed., - - keep head elevated. no heavy lifting. May shower in (days): 14 May resume sexual activity in: 10-14 days Weight Bearing Status: Weight bearing as tolerated Lifting Restrictions: 20 lbs. Keep extremity elevated above heart level: - - elevate head. Call your doctor if your incision/area has: Continuous Slow Oozing, Sudden Increased Bleeding, Increased Pain/ Swelling, Increased Redness, Foul Smelling Discharge, Swelling at the incision site Call your doctor if you observe: Fever of 101 or Higher, Coldness, Increased Pain, Shortness of breath, Chest pain, Calf discomfort, Uncontrolled pain Suture Line Care: - - dry dressings daily. Change Dressing in (Days):: 1 - dry dressings daily. Cleanse incision/area with: - - may get incisions wet in the shower after the drains are removed. Drain: Suction - amrit drain x3 to bulb suction. empty and record drainage output daily. Allergies/Adverse Reactions: Allergies cat dander Allergy (Severe, Verified 05/01/18 13:23) Lips & throat swole FIBERGLASS Allergy (Severe, Uncoded 05/01/18 13:23) SEVERE ITCHING AND RASH POULTRY Allergy (Uncoded 05/01/18 13:23) Anaphylaxis Medications to take at Discharge traZODone [Desyrel] 50 mg PO QHS 09/12/17 Fluticasone 0.05% [Flonase Nasal [place]] 1 spray NASAL DAILY 01/16/18 sertraline 100 mg tablet 150 mg PO DAILY@0600 #180 tab 03/06/18 atorvastatin 20 mg tablet 20 mg PO QHS #90 tab 03/29/18 Pregabalin [Lyrica] 150 mg PO BID 04/09/18 Iron Polysaccharide Complex [Ferrex 150] 150 mg PO DAILY 05/01/18 Diazepam [Valium] 5 mg PO 4X/DAY PRN PRN #30 tab 05/10/18 Docusate Sodium [Colace] 100 mg PO BID #60 cap 05/10/18 Oxycodone HCl/Acetaminophen [Percocet 5/325] 1 - 2 tab PO 4X/DAY PRN PRN 7 Days #50 tab 05/10/18 levoFLOXacin tablet [Levaquin tablet] 500 mg PO DAILY #14 tab 05/10/18 proMETHazine tablet [Phenergan tablet] 25 mg PO 4X/DAY PRN PRN #30 tab 05/10/18 The following prescriptions were given: Diazepam [Valium] 5 mg PO 4X/DAY PRN PRN #30 tab PRN Reason: spasm levoFLOXacin tablet [Levaquin tablet] 500 mg PO DAILY #14 tab Oxycodone HCl/Acetaminophen [Percocet 5/325] 1 - 2 tab PO 4X/DAY PRN PRN 7 Days #50 tab PRN Reason: Pain proMETHazine tablet [Phenergan tablet] 25 mg PO 4X/DAY PRN PRN #30 tab PRN Reason: NAUSEA/VOMITING Docusate Sodium [Colace] 100 mg PO BID #60 cap Orders to be completed after discharge: CBC-Complete Blood Cnt No Diff Time Frame: 05/01/18, Location: Laboratory Primary Care Physician: Cici Martinez MD [Primary Care Provider] - Test Results: Test results from this visit will be discussed in further detail at your follow-up appointment, if applicable. Please Follow Up With: Junior Ahn MD When: one week. call [phone] for appt. Proposed Discharge Date: 05/10/18
--- NOTE | 2018-05-10 13:01 | DCINST_ITS ---
You will use the following diet at home:: No restrictions Discharge Activity: May not drive while taking narcotic pain medications., May Not Shower - until the drains are removed., - - keep head elevated. no heavy lifting. May shower in (days): 14 May resume sexual activity in: 10-14 days Weight Bearing Status: Weight bearing as tolerated Lifting Restrictions: 20 lbs. Keep extremity elevated above heart level: - - elevate head. Call your doctor if your incision/area has: Continuous Slow Oozing, Sudden Increased Bleeding, Increased Pain/ Swelling, Increased Redness, Foul Smelling D ischarge, Swelling at the incision site Call your doctor if you observe: Fever of 101 or Higher, Coldness, Increased Pain, Shortness of breath, Chest pain, Calf discomfort, Uncontrolled pain Suture Line Care: - - dry dressings daily. Change Dressing in (Days):: 1 - dry dressings daily. Cleanse incision/area with: - - may get incisions wet in the shower after the drains are removed. Drain: Suction - amrit drain x3 to bulb suction. empty and record drainage output daily. Allergies/Adverse Reactions: Allergies cat dander Allergy (Severe, Verified 05/01/18 13:23) Lips & throat swole FIBERGLASS Allergy (Severe, Uncoded 05/01/18 13:23) SEVERE ITCHING AND RASH POULTRY Allergy (Uncoded 05/01/18 13:23) Anaphylaxis Medications to take at Discharge traZODone [Desyrel] 50 mg PO QHS 09/12/17 Fluticasone 0.05% [Flonase Nasal [place]] 1 spray NASAL DAILY 01/16/18 sertraline 100 mg tablet 150 mg PO DAILY@0600 #180 tab 03/06/18 atorvastatin 20 mg tablet 20 mg PO QHS #90 tab 03/29/18 Pregabalin [Lyrica] 150 mg PO BID 04/09/18 Iron Polysaccharide Complex [Ferrex 150] 150 mg PO DAILY 05/01/18 Diazepam [Valium] 5 mg PO 4X/DAY PRN PRN #30 tab 05/10/18 Docusate Sodium [Colace] 100 mg PO BID #60 cap 05/10/18 Oxycodone HCl/Acetaminophen [Percocet 5/325] 1 - 2 tab PO 4X/DAY PRN PRN 7 Days #50 tab 05/10/18 levoFLOXacin tablet [Levaquin tablet] 500 mg PO DAILY #14 tab 05/10/18 proMETHazine tablet [Phenergan tablet] 25 mg PO 4X/DAY PRN PRN #30 tab 05/10/18 The following prescriptions were given: Diazepam [Valium] 5 mg PO 4X/DAY PRN PRN #30 tab PRN Reason: spasm levoFLOXacin tablet [Levaquin tablet] 500 mg PO DAILY #14 tab Oxycodone HCl/Acetaminophen [Percocet 5/325] 1 - 2 tab PO 4X/DAY PRN PRN 7 Days #50 tab PRN Reason: Pain proMETHazine tablet [Phenergan tablet] 25 mg PO 4X/DAY PRN PRN #30 tab PRN Reason: NAUSEA/VOMITING Docusate Sodium [Colace] 100 mg PO BID #60 cap Orders to be completed after discharge: CBC-Complete Blood Cnt No Diff Time Frame: 05/01/18, Location: Laboratory Primary Care Physician: Cici Martinez MD [Primary Care Provider] - Test Results: Test results from this visit will be discussed in further detail at your follow- up appointment, if applicable. Please Follow Up With: Junior Ahn MD When: one week. call [phone] for appt. Proposed Discharge Date: 05/10/18
[2018-05-10 14:17] VITALS: BP 136/69; PULSE 108; RESP 16; TEMP 36.6; O2SAT 96
== END 2018-05-10 15:24 | disposition home or self-care (01) ==
LOC: SDC 15:44 → MS3 05-10 06:35
PROVIDERS: Admitting Provider Surgery; Family Provider Internal Medicine; PCP Internal Medicine; Referring Provider Surgery; Visit Provider Surgery
PROC: (CPT 19380; principal; 2018-05-08 07:40)
DX: C50.911 Malignant neoplasm of unspecified site of right female breast (principal); F45.29 Other hypochondriacal disorders; N65.1 Disproportion of reconstructed breast; T66.XXXS Radiation sickness, unspecified, sequela; Y84.2 Radiological procedure and radiotherapy as the cause of abnormal reaction of the patient, or of later complication, without mention of misadventure at the time of the procedure; F32.9 Major depressive disorder, single episode, unspecified; E07.9 Disorder of thyroid, unspecified; L90.5 Scar conditions and fibrosis of skin; Z87.891 Personal history of nicotine dependence; Z92.21 Personal history of antineoplastic chemotherapy; Z79.899 Other long term (current) drug therapy
CPT/HCPCS: 19380; 36415; 74018; 76000; 80048; 80053; 80202; 84134; 85027; 96365; 96366; 96367; 96372; 96375; 96376; 99218; J7050; J7120; A4216; G0378; G0379; J2405

== ENCOUNTER 2018-06-15 09:09 | Day surgery (SDC) | payer MEDICAID, SELFPAY ==
[2018-05-01 13:27] VITALS: BMI 35.6
[2018-05-30 11:11] VITALS: BMI 35.9
[2018-06-15 09:26] VITALS: BP 97/69; PULSE 70; RESP 16; TEMP 36.5; O2SAT 100; BMI 36.1
--- NOTE | 2018-06-15 10:30 | RAD_ITS ---
PROCEDURE: L5-S1 epidural block. DATE OF EXAMINATION: June 15, 2018 INDICATION: Female, 48 years old. Chronic low back pain. FLUOROSCOPY TIME (if supplied): (0:09) minutes/seconds. A single coned-down view was obtained. Intraoperative imaging provided for L5-S1 epidural block. RAD/Spine 1 View Any Level IMPRESSION: Intraoperative imaging provided for L5-S1 epidural block. Electronically Signed: Jin Kingston, at 9:48 EDT , Service support ,
[2018-06-15] MEDS: Triamcinolone Acetonide 40 MG/ML Vial (11:40)
[2018-06-15 11:50] VITALS: BP 107/74; BP 97/69; PULSE 79; RESP 16; TEMP 36.6; O2SAT 94
[2018-06-15 11:55] VITALS: BP 107/81; BP 97/69; PULSE 80; RESP 16; O2SAT 95
[2018-06-15 12:00] VITALS: BP 104/86; BP 97/69; PULSE 83; RESP 16; O2SAT 98
[2018-06-15 12:05] VITALS: BP 116/70; BP 97/69; RESP 16; TEMP 36.4; O2SAT 96
[2018-06-15 12:28] VITALS: BP 97/69
== END 2018-06-15 12:30 | disposition home or self-care (01) ==
LOC: SDC 09:09 → AC 09:10
PROVIDERS: Family Provider Internal Medicine; PCP Internal Medicine; Referring Provider Anesthesiology Pain Medicine; Visit Provider Anesthesiology Pain Medicine
PROC: 3E0S3BZ Introduction of Anesthetic Agent into Epidural Space, Percutaneous Approach (ICD-10-PCS; CPT 62322; principal; 2018-06-15 10:25)
DX: M51.16 Intervertebral disc disorders with radiculopathy, lumbar region (principal); M54.5 Low back pain; G89.29 Other chronic pain; M19.90 Unspecified osteoarthritis, unspecified site; K58.9 Irritable bowel syndrome, unspecified; F32.9 Major depressive disorder, single episode, unspecified; Z79.899 Other long term (current) drug therapy; Z78.0 Asymptomatic menopausal state; Z87.891 Personal history of nicotine dependence; Z85.3 Personal history of malignant neoplasm of breast; Z86.2 Personal history of diseases of the blood and blood-forming organs and certain disorders involving the immune mechanism; Z90.10 Acquired absence of unspecified breast and nipple
CPT/HCPCS: 01992; 62323; 64483; 72020; J7120

== ENCOUNTER → 2018-12-05 08:24 | Outpatient (CLI) | payer MEDICAID, SELFPAY ==
[2018-10-30 15:02] VITALS: BMI 34.7
[2018-12-05 12:44] LABS: Albumin, Serum 3.9 g/dL (3.2-5.0); BUN 16 mg/dL (7-18); BUN/Creat Ratio 17.7 RATIO (10-20); EST Glomerular Filtration Rate 70 mL/min (>60); Est Glom Filt Rate - Afr Amer 85 mL/min (>60); Glucose 97 mg/dL (74-106); Protein, Total 7.5 g/dL (6.4-8.2)
[2018-12-05 12:45] LABS: ALB/GLOB Ratio 1.1 RATIO (0.9-2.4); AST(SGOT) 13 U/L (15-37); Alanine Aminotransfer ALT/SGPT 23 U/L (13-56); Alkaline Phosphatase 129 U/L (45-117); Anion Gap 4 (5-15); Calcium,Total 8.8 mg/dL (8.5-10.1); Chloride 111 mmol/L (98-107); Cholesterol 154 mg/dL (200); Globulin 3.6 g/dL (2.2-4.2); High Density Lipoprotein 46 mg/dL; Potassium 4.1 mmol/L (3.5-5.1); Sodium Level 141 mmol/L (136-145); Triglycerides 120 mg/dL; Very Low Density Lipoprotein 24 mg/dL (5-40)
== END ==
PROVIDERS: Family Provider Internal Medicine; PCP Internal Medicine; Visit Provider Nurse Practitioner Family
DX: E78.5 Hyperlipidemia, unspecified (principal)
CPT/HCPCS: 36415; 80053; 80061

== ENCOUNTER 2018-12-25 11:15 | Emergency (ER) | payer MEDICAID, SELFPAY ==
[2018-12-11 17:42] VITALS: BMI 34.7
[2018-12-25 11:16] VITALS: BP 144/77; PULSE 73; RESP 18; TEMP 36.9; O2SAT 99; BMI 35.2
--- NOTE | 2018-12-25 11:36 | CT_ITS ---
We are attempting to reach an attending provider to discuss findings. An addendum with communication details will be sent when the communication is complete. STUDY: CT ABDOMEN AND PELVIS WITH CONTRAST REASON FOR EXAM: Female, 48 years old. Right side, Pain , History of breast cancer reconstruction history of hysterectomy thyroidectomy RADIATION DOSAGE (If Supplied By Facility): CTDIvol = ( 15.53 ) mGy, DLP = ( 902.86 ) mGycm TECHNIQUE: Transaxial images were obtained from the dome of the diaphragm to the symphysis pubis with oral contrast. IV/Oral Isovue 300 100ml was administered. Sagittal and coronal images were reconstructed. Individualized dose optimization techniques were used for this CT. COMPARISON: May 24, 2017 CT scan abdomen and pelvis FINDINGS: The visualized lung bases are unremarkable. The visualized portions of the heart are within normal limits. There are bilateral breast implants. There is postoperative change involving the right breast soft tissue and the central aspect of the breast tissue. Normal liver. Normal gallbladder and extrahepatic biliary system. There is mild spinal megaly. Normal pancreas. Normal bilateral adrenal glands. There is mild right extrarenal pelvis. The bladder is distended. Normal left kidney. Normal visualized stomach. There is herniation of the small bowel through a wide hernia measuring 4.2 cm and the left and midline abdomen containing a pocket of fat and minimally distended loops of contrast-filled nonobstructed small bowel. There is moderate stool in the colon. The appendix is visualized and appears normal. The aorta is minimally calcified. There is calcification of the bilateral common iliac arteries. Normal inferior vena cava. Normal retroperitoneum. The bladder is distended. The bladder measures 12 x 8 x 10 cm. There is absence of the uterus consistent with a prior hysterectomy. There is postoperative change in the abdominal wall from the reconstruction breast procedure. Since the prior study May 24, 2017, there is minute interval development of the aforementioned fatty herniation to the left of midline of the umbilicus adjacent to surgical clips. In addition this left of midline focus of fat crosses the midline encompasses a small focus of fluid and mild thickening around the wall of this herniation. This is best appreciated on image such as image #27 coronal views where there is a visualized large amount of fat which extends up the left side of the abdomen and appears to course around almost in a circular fashion around the umbilicus. On the right side there is a focus of layering fluid and on the left side there is small bowel. The focal fluid measures 5.3 x 1.3 cm and the wall is thickened and this could be potentially infected. See image #59 of the axial views. . There are mild degenerative changes of the visualized lumbar spine. CT/Abdomen/Pelvis WITH Contrast IMPRESSION: Since the prior study there is been herniation of fat through an 4.2 cm opening in the left midline abdomen. There is herniated fat as well as mildly distended but not obstructed small bowel containing to the left of midline. The remainder of the hernia contains fat which extends out the left midline abdomen and appears to course around the right side subcutaneous soft tissues. Within the right midline portion of this herniation there is a fluid collection with a mildly enhancing wall which may be infected. There is no visualized gas collection. Collectively this fat and herniation may measure up to 12 x 16 cm. It appears partially contained by a hernia mesh. Status post right lateral breast implants right breast mastectomy. Distended bladder. No evidence of appendicitis. Status post hysterectomy. Electronically Signed: Faby Graham MD at 14:05 EDT Tel , Service support ,
--- NOTE | 2018-12-25 11:37 | ED.DCSUM_ITS ---
History of Present Illness Chief Complaint: Abd Pain Informant: Patient Onset: Month(s) Context: Gradual Onset Timing: Waxes and wanes Current Severity: Moderate Maximum Severity: Moderate Narrative: Patient presents with a history of waxing waning abdominal pain of the past 3 years. Over the past couple days pain has become worse and localized more to the right lower quadrant. She states she feels very bloated. Pain will sometimes be worsened with food. She denies fever or chills. She is had multiple abdominal surgeries in the past. She is scheduled to see Dr. Kiran tomorrow to be evaluated for a colonoscopy. Past Medical History - Allergies and Home Meds Allergies/Adverse Reactions: Allergies cat dander Allergy (Severe, Verified 12/11/18 15:24) Lips & throat swole FIBERGLASS Allergy (Severe, Uncoded 12/11/18 15:24) SEVERE ITCHING AND RASH POULTRY Allergy (Uncoded 12/11/18 15:24) Anaphylaxis Primary Care Physician: Sam Kiran MD [STAFF PHYSICIAN] - Keep Wayne appointment Cici Martinez MD [STAFF PHYSICIAN] - Prior records reviewed: Yes Past Medical History: - - Reviewed Surgical History: hysterectomy, - - Single oophorectomy Smoking Status: Former smoker - Family History Maternal Family History: Family History (Last Reviewed 12/11/18 @ 15:24 by Katarzyna Lares) Unknown No problems noted. Mother Anemia Anxiety Arthritis Breast cancer Depression Osteoporosis Father Anxiety Depression Mental disorder Parkinson disease Respiratory complication Family History: Reports: Diabetes, Heart Disease Paternal Family History: Family History (Last Reviewed 12/11/18 @ 15:24 by Katarzyna Lares) Unknown No problems noted. Mother Anemia Anxiety Arthritis Breast cancer Depression Osteoporosis Father Anxiety Depression Mental disorder Parkinson disease Respiratory complication Family History: Reports: No pertinent history Review of Systems General: Denies: Chills, Fever Eyes: Denies: Visual changes - bilaterally ENT: Denies: Bilateral ear pain Cardiovascular: Denies: Chest pain Respiratory: Denies: Dyspnea, Cough Gastrointestinal: Reports: Abdominal pain. Denies: Nausea, Vomiting, Diarrhea Genitourinary: Denies: Dysuria Musculoskeletal: Denies: Back pain Skin: Denies: Rash Neurological: Denies: Headache Endocrine: Denies: Polyuria, Polydipsia Physical Exam Vital Signs/Narrative: Vital Signs Temp Pulse Resp BP Pulse Ox 12/25/18 11:16 98.4 F 73 18 144/77 H 99 Inital Vital Signs reviewed: Yes General: Well nourished, Well developed Head: Normocephalic ENT: Moist mucous membranes Neck: Supple Cardiovascular: Regular rate, Regular rhythm Respiratory: No distress, CTA bilaterally Abdomen: Soft, Normal bowel sounds, Tender - Mild tenderness palpation of the right lower quadrant.. Negative for: Guarding, Rebound tenderness Back: Nontender Extremities: Nontender Skin: Normal color, No rash Neurological: Alert, Oriented x3 Psychological: Normal affect Diagnostic/Tx/Re-eval Impressions Abdomen/Pelvis CT 12/25/18 11:36 IMPRESSION: Since the prior study there is been herniation of fat through an 4.2 cm opening in the left midline abdomen. There is herniated fat as well as mildly distended but not obstructed small bowel containing to the left of midline. The remainder of the hernia contains fat which extends out the left midline abdomen and appears to course around the right side subcutaneous soft tissues. Within the right midline portion of this herniation there is a fluid collection with a mildly enhancing wall which may be infected. There is no visualized gas collection. Collectively this fat and herniation may measure up to 12 x 16 cm. It appears partially contained by a hernia mesh. Status post right lateral breast implants right breast mastectomy. Distended bladder. No evidence of appendicitis. Status post hysterectomy. Electronically Signed: Faby Graham MD at 14:05 EDT Tel , Service support , ADDENDUM: 12/25/18 1423 IMPRESSION: Since the prior study there is been herniation of fat through an 4.2 cm opening in the left midline abdomen. There is herniated fat as well as mildly distended but not obstructed small bowel containing to the left of midline. The remainder of the hernia contains fat which extends out the left midline abdomen and appears to course around the right side subcutaneous soft tissues. Within the right midline portion of this herniation there is a fluid collection with a mildly enhancing wall which may be infected. There is no visualized gas collection. Collectively this fat and herniation may measure up to 12 x 16 cm. It appears partially contained by a hernia mesh. Status post right lateral breast implants right breast mastectomy. Distended bladder. No evidence of appendicitis. Status post hysterectomy. N.B. : The above information has been verbally conveyed by Faby Graham MD to Marie Bush MD, on 12/25/2018 14:16:53 (ET). Electronically Signed: Faby Graham MD at 14:05 EDT Tel , Service support , 12/25/18 11:36 Abdomen/Pelvis WITH Contrast [CT] Stat Laboratory Results 12/25/18 12/25/18 12/25/18 11:45 11:45 12:03 WBC 4.4 RBC 4.85 Hgb 14.6 Hct 42.4 MCV 87.4 MCH 30.1 MCHC 34.4 RDW Std Deviation 38.2 RDW Coeff of Adrian 11.9 Plt Count 187 MPV 9.9 Immature Gran % (Auto) 0.200 Neut % (Auto) 70.9 H Lymph % (Auto) 20.6 [place] % (Auto) 6.4 Eos % (Auto) 1.4 Baso % (Auto) 0.5 Absolute Neuts (auto) 3.1 Absolute Lymphs (auto) 0.90 Nucleated RBC % 0 Sodium 141 Potassium 4.1 Chloride 106 Carbon Dioxide 27.0 Anion Gap 8 BUN 13 Creatinine 0.84 Estim Creat Clear Calc 58.19 Est GFR (MDRD) Af Amer 93 Est GFR (MDRD) Non-Af 76 BUN/Creatinine Ratio 15.5 Glucose 92 Calcium 9.3 Total Bilirubin 0.40 Direct Bilirubin 0.11 AST 15 ALT 22 Alkaline Phosphatase 144 H Total Protein 7.8 Albumin 4.3 Globulin 3.5 Urine Color Straw Urine Clarity Clear Urine pH 6.5 Ur Specific [place] 1.010 Urine Protein Negative Urine Glucose (UA) Normal Urine Ketones Negative Urine Occult Blood Negative Urine Nitrite Negative Urine Bilirubin Negative Urine Urobilinogen Normal Ur Leukocyte Esterase Negative Urine RBC 0 SEEN Urine WBC 0 SEEN Ur Squamous Epith Cells 0-5 SEEN Urine Bacteria RARE Urine Mucus 0 SEEN - Medical Decision Making Patient was given morphine and Zofran here for pain. Test results are discussed with her. She states that the ventral mesh was placed when she had her flap reconstruction performed. I advised her there is now a large hernia around this area. There is a fluid collection in this area. Patient states that she was told this was present since her surgery and never reabsorbed. Because she has no fever or white count I will not cover her with antibiotics. I spoke to Dr. Kiran who the patient is scheduled to see tomorrow to discuss scheduling a colonoscopy. He reviewed her images. Because the patient essentially does not have rectus muscle left because of her reconstruction he feels that she needs to be seen by with a hernia specialist, likely through [facility]. I spoke with patient's primary care physician to see if they could help with this referral. She states that the surgeons have a specific specialist at [facility] they usually refer to and patient could talk to Dr. Kiran about this tomorrow. This will be explained in detail to the patient. She will be given a prescription for [place]. ED Disposition - Plan for ED Patient: Disposition: Home or Assisted Living Diagnosis: Hernia Instructions: What Is a Hernia? Prescriptions: Hydrocodone Bitart/Apap 5-325 [Ber[place] 5MG-325MG] 1 tab PO Q6H PRN PRN 3 Days #10 tab PRN Reason: Pain Prescription Printed Referrals: Cici Martinez MD [STAFF PHYSICIAN] - Sam Kiran MD [STAFF PHYSICIAN] - Keep Wayne appointment
[2018-12-25 12:02] LABS: Absolute Neutrophil Count 3.1 X10^3/uL (2.0-7.7); Basophil# 0.02 X10^3/uL; Basophil% 0.5 % (0-1); Eosinophil# 0.06 X10^3/uL; Eosinophils% 1.4 % (0-5); Hematocrit 42.4 % (37-47); Hemoglobin 14.6 g/dL (12.0-15.0); Lymphocyte % 20.6 % (19-41); Mean Corp Hgb Conc 34.4 g/dL (32-36); Mean Corpuscular Hgb 30.1 pg (27.0-32.0); Mean Corpuscular Volume 87.4 fL (81-99); Mean Platelet Vol. 9.9 fl (6.2-12.0); Monocyte# 0.28 X10^3/uL; Monocyte% 6.4 % (0-10); NRBC Flagged by Analyzer 0 % (0-5); Neutrophil % 70.9 % (47-70); Platelet Count 187 K/mm3 (150-450); RBC Distribution Width CV 11.9 % (11.6-14.6); RBC Distribution Width SD 38.2 fl (35.1-43.9); Red Blood Count 4.85 M/mm3 (4.2-5.4); White Blood Count 4.4 K/mm3 (4.4-11.0)
[2018-12-25 12:10] LABS: Mucous, Urine 0 SEEN /hpf (<or=2+); Red Blood Cells-Urine 0 SEEN /hpf (0-5); White Blood Cells 0 SEEN /hpf (0-5)
[2018-12-25 12:11] LABS: Color, Urine Straw (Yellow); Glucose, Dipstick Normal (Normal); Ketone-Dipstick Negative (Negative); Leukocyte Esterase-Dipstick Negative /ul (Negative); Nitrite-Dipstick Negative (Negative); Occult Blood-Urine Negative /ul (Negative); Protein-Dipstick Negative (Negative); Urine Bilirubin Dipstick Negative (Negative); Urine Clarity Clear (Clear); Urine Urobilinogen Normal (Normal); Urine pH 6.5 (5.0 - 8.0)
[2018-12-25 12:15] LABS: AST(SGOT) 15 U/L (15-37); Alanine Aminotransfer ALT/SGPT 22 U/L (13-56); Albumin, Serum 4.3 g/dL (3.2-5.0); Alkaline Phosphatase 144 U/L (45-117); Anion Gap 8 (5-15); BUN 13 mg/dL (7-18); BUN/Creat Ratio 15.5 RATIO (10-20); Bilirubin, Direct 0.11 mg/dL (0.00-0.30); Calcium,Total 9.3 mg/dL (8.5-10.1); Chloride 106 mmol/L (98-107); Creatinine, Serum 0.84 mg/dL (0.55-1.02); EST Glomerular Filtration Rate 76 mL/min (>60); Est Glom Filt Rate - Afr Amer 93 mL/min (>60); Estimated Creatinine Clearance 58.19 ml/min; Globulin 3.5 g/dL (2.2-4.2); Glucose 92 mg/dL (74-106); Potassium 4.1 mmol/L (3.5-5.1); Protein, Total 7.8 g/dL (6.4-8.2); Sodium Level 141 mmol/L (136-145)
[2018-12-25 12:21] LABS: Bacteria RARE /hpf (None Seen); Squamous Epithelial Cells - UA 0-5 SEEN /hpf (5-10)
[2018-12-25] MEDS: Ondansetron 4 MG/2 ML Vial IV (12:24)
[2018-12-25] MEDS: Morphine 4 MG/ML Syringe IV (12:24)
[2018-12-25] MEDS: 0.9% Normal Saline 1,000 ML 150 ML IV (12:25)
[2018-12-25 13:25] VITALS: BP 120/78; PULSE 74; RESP 16; O2SAT 97
[2018-12-25 15:08] VITALS: BP 127/75; PULSE 78; RESP 16; O2SAT 100
[2018-12-25] MEDS: HYDROmorphone 0.5 MG/0.5 ML SYRINGE IV (15:37)
[2018-12-25 16:11] VITALS: BP 124/74; PULSE 62; RESP 16; O2SAT 100
== END 2018-12-25 16:14 | disposition home or self-care (01) ==
PROVIDERS: Emergency Provider Emergency Medicine; Family Provider Nurse Practitioner Family; PCP Nurse Practitioner Family
DX: K46.9 Unspecified abdominal hernia without obstruction or gangrene (principal); N32.89 Other specified disorders of bladder; Z79.899 Other long term (current) drug therapy; Z87.891 Personal history of nicotine dependence; Z98.82 Breast implant status; Z90.710 Acquired absence of both cervix and uterus; Z90.11 Acquired absence of right breast and nipple
CPT/HCPCS: 74177; 80048; 80076; 81001; 85025; 96361; 96374; 96375; 99283; Q9967; J2405

== ENCOUNTER 2019-03-29 15:00 | Emergency (ER) | payer MEDICAID, SELFPAY ==
[2019-03-06 15:29] VITALS: BMI 35.9
[2019-03-29 15:02] VITALS: BP 145/82; PULSE 79; RESP 16; TEMP 36.7; O2SAT 100; BMI 36.1
[2019-03-29 15:54] LABS: Absolute Lymphocyte Count 1.21 X10^3/uL (0.83-4.51); Absolute Neutrophil Count 4.2 X10^3/uL (2.0-7.7); Basophil# 0.04 X10^3/uL; Basophil% 0.7 % (0-1); Eosinophil# 0.05 X10^3/uL; Eosinophils% 0.9 % (0-5); Hematocrit 41.1 % (37-47); Lymphocyte # 1.21 X10^3/ul (4.0); Lymphocyte % 20.7 % (19-41); Mean Corp Hgb Conc 34.1 g/dL (32-36); Mean Corpuscular Hgb 29.2 pg (27.0-32.0); Mean Corpuscular Volume 85.8 fL (81-99); Mean Platelet Vol. 9.8 fl (6.2-12.0); Monocyte% 5.1 % (0-10); NRBC Flagged by Analyzer 0 % (0-5); Neutrophil # 4.23 X10^3/uL (2.7-7.7); Neutrophil % 72.3 % (47-70); Platelet Count 185 K/mm3 (150-450); RBC Distribution Width SD 37.4 fl (35.1-43.9); Red Blood Count 4.79 M/mm3 (4.2-5.4); White Blood Count 5.9 K/mm3 (4.4-11.0)
[2019-03-29 15:58] LABS: Bacteria 0 SEEN /hpf (None Seen); Mucous, Urine 0 SEEN /hpf (<or=2+); Red Blood Cells-Urine 0 SEEN /hpf (0-5); White Blood Cells 0 SEEN /hpf (0-5)
--- NOTE | 2019-03-29 16:02 | US_ITS ---
STUDY: ABDOMINAL ULTRASOUND - RIGHT UPPER QUADRANT REASON FOR VISIT: Female, 49 years old. Pain TECHNIQUE: Ultrasound evaluation of the right upper quadrant was performed with real-time and static mcknight-scale imaging. TECHNICAL QUALITY: Limited due to patient condition. COMPARISON: None. FINDINGS: Liver: The liver measures 16 cm. There is increased echogenicity of the liver. The bile ducts are within normal limits. There is hepatic color flow. The direction of portal flow is hepatopetal. There is no demonstrated mass lesion. Gallbladder: Normal distended gallbladder. The gallbladder wall measures 3 mm. There is no pericholecystic fluid. There are no gallstones. There is a 6 mm polyp in the gallbladder fundus versus artifact. Common Bile Duct (C.B.D.): The common bile duct measures 2 mm. Pancreas: Normal size of the head, body and tail of the pancreas. There is normal echogenicity of the pancreas. There is no demonstrated pancreatic mass or cyst. Right Kidney: Normal size of the right kidney. The right kidney measures 10 cm. Normal renal cortex. There is no demonstrated renal mass or cyst. There is a right renal 7 mm stone. There is no right hydronephrosis. US/Gallbladder IMPRESSION: Fatty liver. No hepatic lesions identified. No inflammatory changes of the gallbladder. 6 mm gallbladder polyp versus artifact. Right renal stone. Electronically Signed: Romeo Treviño, at 18:10 EST Tel , Service support ,
--- NOTE | 2019-03-29 16:04 | ED.VISSUMM ---
- ER Visit Summary Date of Service: 03/29/19 Chief Complaint: Right upper quadrant abdominal pain History of Present Illness: The patient is a 49 F who presents with right upper quadrant abdominal pain that has been constant for the past week. Patient describes the pain is burning. Patient states the pain is over the right upper quadrant and radiates into her back. Patient states nothing makes it better or worse. Patient admits to nausea but denies any vomiting. Patient denies any diarrhea, melena, or hematochezia. Patient denies any urinary complaints. Patient states her last meal was yesterday evening. Patient states she has had a CT scan done in the past which showed gallbladder sludge. Patient denies any fevers but admits to some subjective chills. Physical Examination: Vital signs are stable. Patient is afebrile. Patient is in no acute distress. Oral mucosa is pink and moist. Neck is supple. Trachea is midline. There is no JVD. Heart was regular rate and rhythm. Lungs are clear and equal bilaterally. Abdomen is soft. Bowel sounds are normal. There is right upper quadrant tenderness. There is no rebound or guarding noted. There is some mild right CVA tenderness. Cranial nerves II through XII are intact. There are no focal motor or sensory deficits noted. Test Results: CBC, comprehensive metabolic profile, and urinalysis were obtained and were all essentially within normal limits. Alk phos was slightly elevated at 144. Right upper quadrant ultrasound was obtained. There is a questionable polyp in the gallbladder but there is no inflammatory changes. Due to the patient's persistent pain a CT scan of the abdomen pelvis was obtained. There is no acute intra-abdominal pathology. Emergency Department Course and Treatment: Patient was given IV fluids, morphine, and Zofran. Patient was given repeat doses of morphine and Zofran. Patient was having persistent pain and was given a dose of Dilaudid. Patient felt better after this. Patient was instructed to follow-up with her primary care physician and surgeons in 3 to 5 days. Patient understood and was agreeable with the plan. All questions were answered. Disposition: Discharge home Impression: Right upper quadrant abdominal pain This note was generated with [facility] dictation software. It may contain incorrect words, spelling, and punctuation that were not noted in review of the chart prior to signing ED Disposition - Plan for ED Patient: Disposition: Home or Assisted Living Diagnosis: Right upper quadrant abdominal pain Instructions: ABDOMINAL PAIN, Unknown Cause, (Female) Referrals: Cici Martinez MD [Primary Care Provider] - 3-5 Days
[2019-03-29 16:05] LABS: Anion Gap 5 (5-15); BUN 11 mg/dL (7-18); BUN/Creat Ratio 12.6 RATIO (10-20); Calcium,Total 9.6 mg/dL (8.5-10.1); Chloride 108 mmol/L (98-107); Creatinine, Serum 0.87 mg/dL (0.55-1.02); EST Glomerular Filtration Rate 73 mL/min (>60); Est Glom Filt Rate - Afr Amer 89 mL/min (>60); Estimated Creatinine Clearance 55.57 ml/min; Glucose 85 mg/dL (74-106); Potassium 3.7 mmol/L (3.5-5.1); Sodium Level 138 mmol/L (136-145)
[2019-03-29 16:06] LABS: Color, Urine Yellow (Yellow); Glucose, Dipstick Normal (Normal); Ketone-Dipstick Negative (Negative); Leukocyte Esterase-Dipstick Negative /ul (Negative); Nitrite-Dipstick Negative (Negative); Occult Blood-Urine Negative /ul (Negative); Protein-Dipstick Negative (Negative); Urine Bilirubin Dipstick Negative (Negative); Urine Clarity Clear (Clear); Urine Urobilinogen Normal (Normal)
[2019-03-29 16:31] LABS: Squamous Epithelial Cells - UA 0-5 SEEN /hpf (5-10)
[2019-03-29 16:40] LABS: AST(SGOT) 15 U/L (15-37); Alanine Aminotransfer ALT/SGPT 25 U/L (13-56); Albumin, Serum 4.3 g/dL (3.2-5.0); Alkaline Phosphatase 144 U/L (45-117); Bilirubin, Direct 0.16 mg/dL (0.00-0.30); Globulin 3.8 g/dL (2.2-4.2); Protein, Total 8.1 g/dL (6.4-8.2)
[2019-03-29] MEDS: Morphine 4 MG/ML Syringe IV ×2 (16:43→17:36)
[2019-03-29] MEDS: Ondansetron 4 MG/2 ML Vial IV ×2 (16:43→17:36)
[2019-03-29] MEDS: 0.9% Normal Saline 1,000 ML 1000 ML IV (16:46)
[2019-03-29 18:24] VITALS: BP 135/80; PULSE 68; RESP 20; O2SAT 100
--- NOTE | 2019-03-29 18:48 | CT_ITS ---
STUDY: CT ABDOMEN AND PELVIS WITHOUT CONTRAST REASON FOR EXAM: Female, 49 years old. Left upper quadrant pain RADIATION DOSAGE (If Supplied By Facility): DLP = ( 704.85 ) mGycm TECHNIQUE: Transaxial images were obtained from the dome of the diaphragm to the symphysis pubis without oral contrast, and without intravenous contrast. Sagittal and coronal images were reconstructed. Individualized dose optimization techniques were used for this CT. COMPARISON: CT abdomen pelvis December 25, 2018 FINDINGS: Evaluation of the abdominal viscera is limited in the absence of intravenous contrast. Bibasilar atelectasis is present.. The visualized portions of the heart and pericardium are within normal limits. There are no calcified gallstones present. The liver demonstrates an unremarkable unenhanced appearance. The spleen is normal in size. The pancreas demonstrates an unremarkable unenhanced appearance. The adrenal glands are within normal limits. There are no obstructing renal stones. There is no hydronephrosis. Normal visualized stomach. There is no bowel obstruction or inflammation. Ventral abdominal hernia repair is present with interval reduction of the hernia. In the repair location, there is a 3.4 x 0.8 x 2.4 cm fluid collection. There is mild increased fat attenuation in the postsurgical region. The aorta is normal in caliber. There is no abdominal or pelvic free air, free fluid, or lymphadenopathy. There are no destructive osseous lesions. CT/Abdomen/Pelvis without Cont IMPRESSION: Interval hernia repair changes in the ventral abdomen, with interval reduction of the hernia. Small fluid collection, likely representing small seroma or hematoma, although abscess is a secondary consideration. Mild soft tissue swelling. No evidence of intra-abdominal or pelvic pathology. Electronically Signed: Romeo Treviño, at 19:41 EST Tel , Service support ,
[2019-03-29] MEDS: HYDROmorphone 1 MG/ML Syringe 0.5 MG IV (18:57)
[2019-03-29 20:01] VITALS: BP 113/64; PULSE 90; RESP 18; O2SAT 95
== END 2019-03-29 20:04 | disposition home or self-care (01) ==
PROVIDERS: Emergency Provider Emergency Medicine; Family Provider Internal Medicine; PCP Internal Medicine
DX: R10.11 Right upper quadrant pain (principal); R11.0 Nausea; R05 Cough; G62.9 Polyneuropathy, unspecified; E66.9 Obesity, unspecified; Z85.3 Personal history of malignant neoplasm of breast
CPT/HCPCS: 74176; 76705; 80048; 80076; 81001; 85025; 96361; 96374; 96375; 96376; 99283; J7030; A4216; J2405

== ENCOUNTER 2019-05-17 22:13 | Emergency (ER) | payer MEDICAID, SELFPAY ==
[2019-05-16 14:19] VITALS: BMI 34.0
--- NOTE | 2019-05-17 13:10 | RAD_ITS ---
STUDY: X-RAY CHEST REASON FOR EXAM: Female, 49 years old. RT BREAST PAIN, PT STATES THAT SHE IS PRE-OP FOR BREAST IMPLANT REMOVAL, HX OF 11 DIFFERENT SURGERIES ON CHEST TECHNIQUE: PA and lateral chest. COMPARISON: 05/24/2017. FINDINGS: The lungs are clear and expanded. There is no demonstrated pleural abnormality. Normal size heart. Normal mediastinum and robi. Normal visualized pulmonary arteries. Normal visualized aortic arch and descending thoracic aorta. Normal visualized thoracic spine. Normal visualized ribs, clavicles, and shoulders. Surgical clips in the right axilla consistent with lymph node dissection. Surgical clips in the right upper quadrant. Opacity projecting over the right lower lobe is consistent with breast implants. RAD/Chest PA and Lateral IMPRESSION: Normal x-ray examination of the chest. Electronically Signed: Tabatha Abarca MD at 23:36 EST Tel , Service support ,
[2019-05-17 22:15] VITALS: BP 135/79; PULSE 112; RESP 18; TEMP 36.2; O2SAT 97; BMI 32.7
[2019-05-17] MEDS: Morphine 4 MG/ML Syringe IV (23:04)
[2019-05-17] MEDS: Ondansetron 4 MG/2 ML Vial IV (23:04)
--- NOTE | 2019-05-17 23:04 | ED.VIS.GEN ---
History of Present Illness Chief Complaint: Other, Pain/Inj Narrative: Patient presenting for evaluation secondary to right breast pain. Patient had a history of breast cancer with mastectomy and extensive radiation to the right hemithorax. Patient reports that she had a TRAM flap that failed, and has had multiple surgeries on her right breast including implants that she has and currently. Patient has been working with plastic surgery for this, and has been having issues with increased pain and there is a plan to potentially remove the patient's implants within the next week to week and a half. Patient reports that she has been getting increasing pain especially in the right breast. She denies any presence of fevers. She denies any specific injuries. She is concerned about the possibility of the implant having ruptured, but denies that there is any sort of specific event that may have caused that. She is on Percocet and Valium at home for treatment of this pain, but the pain has been worsening and is refractory to home treatments. She reports that she called the plastic surgery office and they instructed her to come to the emergency department for further evaluation and pain control. Past Medical History - Allergies and Home Meds Allergies/Adverse Reactions: Allergies cat dander Allergy (Severe, Verified 05/17/19 22:14) Lips & throat swole FIBERGLASS Allergy (Severe, Uncoded 05/17/19 22:14) SEVERE ITCHING AND RASH POULTRY Allergy (Uncoded 05/17/19 22:14) Anaphylaxis Primary Care Physician: Butch Parekh NP-C [Primary Care Provider] - Past Medical History: - - Breast cancer Surgical History: hysterectomy, - - Single oophorectomy Smoking Status: Never smoker - Family History Maternal Family History: Family History (Last Reviewed 05/16/19 @ 14:08 by Adrianna Rahman) Unknown No problems noted. Mother Anemia Anxiety Arthritis Breast cancer Depression Osteoporosis Father Anxiety Depression Mental disorder Parkinson disease Respiratory complication Family History: Reports: Diabetes, Heart Disease Paternal Family History: Family History (Last Reviewed 05/16/19 @ 14:08 by Adrianna Rahman) Unknown No problems noted. Mother Anemia Anxiety Arthritis Breast cancer Depression Osteoporosis Father Anxiety Depression Mental disorder Parkinson disease Respiratory complication Family History: Reports: No pertinent history Review of Systems All systems negative except as indicated General: Denies: Chills, Fever, Sweats Eyes: Denies: Visual changes - bilaterally, Diplopia ENT: Denies: Rhinorrhea, Sore throat Cardiovascular: Reports: - - Breast pain Respiratory: Denies: Dyspnea, Cough, Dyspnea on exertion Gastrointestinal: Denies: Abdominal pain, Nausea, Vomiting, Diarrhea, Melena, Hematochezia Genitourinary: Denies: Dysuria, Hematuria, Frequency Musculoskeletal: Denies: Back pain, Extremity Pain Skin: Denies: Rash, Wounds Neurological: Denies: Headache, Weakness, Numbness Physical Exam Vital Signs/Narrative: Vital Signs Temp Pulse Resp BP Pulse Ox 05/17/19 22:15 97.2 F L 112 H 18 135/79 H 97 Inital Vital Signs reviewed: Yes General: Well nourished, Well developed, No Acute Distress Head: Normocephalic, Atraumatic Eyes: EOMI ENT: Moist mucous membranes, No rhinorrhea Neck: Supple Cardiovascular: Regular rhythm, No murmurs, Tachycardia Respiratory: No distress, CTA bilaterally, - - Chaperoned exam of the patient's breasts shows extensive surgical scars of the patient's breasts with scars on the breast axilla and the back. Patient has tenderness to palpation across the breast, no evidence of overlying erythema or skin changes. Abdomen: Soft, Nontender Extremities: Nontender, No edema Skin: Normal color, No rash Neurological: Alert, Oriented x3 Psychological: Normal affect Diagnostic/Tx/Re-eval - Medical Decision Making Patient presented for evaluation secondary to pain from her breast implant. IV was established laboratory studies were obtained patient was checked for signs of infection. CBC and chemistry unremarkable no evidence of leukocytosis shift or acidosis. PA and lateral chest x-ray by my personal review as well as radiology were found to be negative. Patient's pain was addressed with morphine Zofran and an additional dose of morphine and she had some symptomatic improvement. I discussed her case with plastic surgery, who recommended sending her home on a Duragesic patch. This will be provided for the patient in the emergency department and a prescription will be written for this. Patient will follow-up with plastic surgery this week for likely removal of her breast implants. ED Disposition - Plan for ED Patient: Disposition: Home or Assisted Living Diagnosis: Breast pain, right Instructions: ED Chronic Pain Prescriptions: fentaNYL patch [Duragesic Patch] 12 mcg TRANSDERM. Q3D #2 patch Prescription Printed Referrals: Junior Ahn MD [STAFF PHYSICIAN] - 3-5 Days
[2019-05-17 23:16] LABS: Absolute Neutrophil Count 2.5 X10^3/uL (2.0-7.7); Basophil# 0.02 X10^3/uL; Basophil% 0.4 % (0-1); Eosinophil# 0.11 X10^3/uL; Eosinophils% 2.4 % (0-5); Hematocrit 41.1 % (37-47); Hemoglobin 14.4 g/dL (12.0-15.0); Lymphocyte % 35.2 % (19-41); Mean Corpuscular Hgb 29.8 pg (27.0-32.0); Mean Corpuscular Volume 84.9 fL (81-99); Mean Platelet Vol. 9.8 fl (6.2-12.0); Monocyte# 0.32 X10^3/uL; NRBC Flagged by Analyzer 0 % (0-5); Neutrophil # 2.48 X10^3/uL (2.7-7.7); Neutrophil % 54.8 % (47-70); Platelet Count 185 K/mm3 (150-450); RBC Distribution Width CV 12.1 % (11.6-14.6); RBC Distribution Width SD 36.8 fl (35.1-43.9); Red Blood Count 4.84 M/mm3 (4.2-5.4); White Blood Count 4.5 K/mm3 (4.4-11.0)
[2019-05-17 23:32] LABS: Anion Gap 6 (5-15); BUN 19 mg/dL (7-18); BUN/Creat Ratio 17.9 RATIO (10-20); Calcium,Total 9.3 mg/dL (8.5-10.1); Chloride 110 mmol/L (98-107); Creatinine, Serum 1.06 mg/dL (0.55-1.02); EST Glomerular Filtration Rate 58 mL/min (>60); Est Glom Filt Rate - Afr Amer 71 mL/min (>60); Estimated Creatinine Clearance 52.52 ml/min; Glucose 91 mg/dL (74-106); Potassium 3.7 mmol/L (3.5-5.1); Sodium Level 142 mmol/L (136-145)
[2019-05-18] MEDS: Morphine 4 MG/ML Syringe IV (00:21)
[2019-05-18 00:22] VITALS: BP 112/78; PULSE 86; RESP 16; O2SAT 93
[2019-05-18] MEDS: fentaNYL 25 MCG Patch TRANSDERM. (00:41)
[2019-05-18 00:52] VITALS: BP 111/72; PULSE 86; RESP 14; O2SAT 97
--- NOTE | 2019-05-18 00:53 | ED.RN ---
PT A+OX4, EDUCATED ON WRITTEN AND VERBAL DISCHARGE INSTRUCTIONS AND HOME GOING PRESCRIPTIONS. PT EDUCATED NOT TO TAKE ANY MORE PERCOCET OF VALIUM UNTIL MORNING STATED BY DR. IVORY. PT VERBALIZES UNDERSTANDING OF INSTRUCTIONS AND DENIES ANY FURTHER QUESTIONS. PT IV D/C AND COVERED WITH 2X2 GAUZE DRESSING AND PAPER TAPE. PT AMBULATORY OUT OF DEPT WITH SIGNIFICANT OTHER.
== END 2019-05-18 00:55 | disposition home or self-care (01) ==
PROVIDERS: Emergency Provider Emergency Medicine; PCP Nurse Practitioner Family
DX: N64.4 Mastodynia (principal); Z79.899 Other long term (current) drug therapy; Z90.10 Acquired absence of unspecified breast and nipple; Z90.710 Acquired absence of both cervix and uterus; Z85.3 Personal history of malignant neoplasm of breast; Z98.82 Breast implant status
CPT/HCPCS: 71046; 80048; 85025; 96374; 96375; 96376; 99284; J7030; A4216; J2405

== ENCOUNTER 2019-05-24 16:27 | Observation (INO) | payer MEDICAID, SELFPAY ==
--- NOTE | 2019-05-23 09:13 | EKG12_ITS ---
Test Reason : PREOP Blood Pressure : / mmHG Vent. Rate : 071 BPM Atrial Rate : 071 BPM P-R Int : 174 ms QRS Dur : 072 ms QT Int : 396 ms P-R-T Axes : 029 011 039 degrees QTc Int : 430 ms Normal sinus rhythm Normal ECG When compared with ECG of 16-JAN-2018 14:16, No significant change was found Confirmed by JED RAYO, CODI ([id number]), senior technical editor DOMENICA BURNHAM ([id number]) on 05/23/2019 2:22:51 PM Referred By: Junior Ahn Confirmed By:VERONICA ADKINS MD
[2019-05-24] VITALS (11 sets, daily range): BP systolic 103–142; BP diastolic 66–91; PULSE 73–109; RESP 16–18; TEMP 36.4–37.2; O2SAT 94–100; BMI 35.2
--- NOTE | 2019-05-24 | BR_PTH ---
PATIENT: SHARON BARRAGAN LOC: MS3 U#:[id number] AGE/SX: 49/F [place] [facility] [place]05/24/[address]: Dr. Junior Ahn MD : [id number] BED: 1 DIS: 05/27/2019 SPEC #: [id number] RECD: 05/24/19 16:40 STATUS: CHIDI REConstance #: [id number] JOANNA: 05/24/19 00:[address]: Junior Ahn DEPT: SURGICAL PATHOLOGY RECD BY: Jaya Carter ENTERED: 05/27/19 08:23 SP TYPE: MAMOPLASTY OTHR DR: Butch Parekh, SHERRIE Tissues: A - Right breast, NOS B - Left breast, NOS Procedures: Surgery Specimen Level I Surgery Specimen Level IV HEADER OPERATION: Revision bilateral breast reconstruction with excision PRE-OP DIAGNOSIS: Right breast cancer; bilateral painful capsular contracture; ER status negative TISSUE SUBMITTED: A - Right breast tissue and capsule and implant, B - Left breast tissue and capsule and implant MICROSCOPIC DIAGNOSIS A. Right breast tissue capsule and implant, excision and removal: Skin with no pathologic change. Fibrous capsule with dense collagenization. Breast implant - intact and complete. B. Left breast tissue capsule and implant, excision and removal: Skin with no pathologic change. Fibrous capsule with dense collagenization. Focal foreign body giant cell reaction to polarizable material consistent with suture. Breast implant - intact and complete. AM:sharon 05/28/19 MICROSCOPIC DESCRIPTION Slides are reviewed. GROSS DESCRIPTION A - Received in fixative is one container labeled with the patient's name and designated right breast capsule and implant. The specimen consists of multiple irregular fragments of skin and soft tissue that in aggregate measure 14 x 9 x 3.5 cm. Serial sections of the presumed capsule do not reveal mass lesions. No cutaneous lesions are identified. Lean Manufacturing Coordinator sections are submitted in two cassettes. Also present in the specimen container is a presumed silicone gel implant measuring 14 cm in diameter and bearing the following inscription Melrose [id number], 605 cc. No breaks or tears are identified in the implant. B - Received in fixative is one container labeled with the patient's name and designated left breast capsule and implant. The specimen consists of multiple irregular fragments of skin and soft tissue that in aggregate measure 13 x 13 x 3 cm. Serial sections of the presumed capsule do not reveal mass lesions. No cutaneous lesions are identified. Lean [employer] Coordinator sections are submitted in two cassettes. Also present in the specimen container is a presumed silicone gel implant measuring 14 cm in diameter and bearing the following inscription Melrose [id number], 545 cc. No breaks or tears are identified in the implant. / AM:sharon 05/27/19 TC:5 CPT: 74615 x2, 12768 x2
--- NOTE | 2019-05-24 10:33 | HP.PCM_ITS ---
History and Physical Date of Admission: 05/24/19 HISTORY OF PRESENT ILLNESS 49 year old woman presents today with complaints of pain in her bilateral breast reconstruction, worse on the right. She works at [employer] and doesn't do heavy lifting. She thinks she may have twisted her torso while at work which started the painful process. Her last breast reconstruction surgery occurred on 05/08/18 where she underwent underwent delayed right breast reconstruction with removal of saline tissue learning facilitator with replacement cohesive gel implant (605 ml) and revision right breast reconstruction with multiple capsulotomies and revision asymmetric inframammary fold with capsular plication and placement of FlexHD acellular dermal matrix graft inferolateral sling (286 cm2) and delayed left breast reconstruction with removal of saline tissue learning facilitator with replacement cohesive gel implant (545 ml) and revision left breast reconstruction with multiple capsulotomies and revision asymmetric inframammary fold with capsular plication and placement of FlexHD acellular dermal matrix graft inferolateral sling (286 cm2). She has done well after this breast reconstruction surgery until recently when she started having breast pain, worse on the right. She denies any trauma. She denies fever. Even when she wears an bruce wrap for compression, she still has the pain. It was so bad today, she had to leave work to come here for evaluation. She had a recent repair of complex abdominal wall hernia in [facility] in December,. 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 Breast cancer, right breast PAST SURGICAL HISTORY HYSTERECTOMY WITH BILATERAL SALPINGECTOMY prophylactic mastectomy of left breast thyroidectomy tubal ligation MASTECTOMY RIGHT BREAST AND BILATERAL SENTINEL NODE BIOPSIES PORT PLACEMENT 02/02 Status post transverse rectus abdominis muscle (TRAM) flap breast reconstruction Status post bilateral breast reconstruction complicated hernia surgery ALLERGIES cat dander FIBERGLASS POULTRY MEDICATIONS Lipitor Valium Percocet Duragesic Patch Loperamide Lorazepam Lyrica Zoloft Trazodone FAMILY HISTORY Mother - Anemia, Anxiety, Arthritis, Breast cancer, Depression, Osteoporosis Father - Anxiety, Depression, Parkinson disease, Respiratory complication SOCIAL HISTORY Smoking Status: Never smoker second hand exposure: No alcohol intake: current alcohol intake frequency: a few times a week Alcohol type: other substance use type: does not use REVIEW OF SYSTEMS General - Denies fever and fatigue. History of weight loss. Eyes - Denies eye pain. ENT - Denies nasal congestion and sore throat. CV - Denies chest pain or discomfort, fatigue, lightheadedness and shortness of breath with exertion. Resp - Denies cough and shortness of breath. Patient is a former smoker. GI - Denies nausea, vomiting, diarrhea and constipation. - Denies blood in urine and urinary frequency. MS - Complains of back pain. Denies joint pain, stiffness, muscle weakness and arthritis. Derm - Denies suspicious lesions and skin cancer. Has mastectomy scars and flap scars bilaterally in stages of breast reconstruction. Now has breast pain. Neuro - Denies poor balance and headaches. Psych - Complains of anxiety. Denies depression. Endo - Denies excessive urination and excessive thirst. Has thyroid disease. Has history of right breast cancer. Heme - Denies bleeding and abnormal bruising. PHYSICAL EXAMINATION General: well developed, well nourished, in no acute distress. Her bra size was 36 C prior to her breast cancer. Head: normocephalic and atraumatic. Eyes: PERRL. EOMI. Neck: no masses, thyromegaly, or abnormal cervical nodes. Breasts: Incisions are well healed. There is an area of skin dimpling down to and adherent to the muscle. No breast masses palpated. There is palpable firmness surrounding the implants worse on the right suggestive of a capsular contracture. There is tenderness to palpation. There is some excess mastectomy skin scar contour deformity on the left breast laterally and on the right breast laterally. On the right breast there is a soft healed latissimus dorsi myocutaneous flap. There is surrounding radiation scarring at the skin edges with firmness from radiation effects. There is pincushioning dimpling at the superior latissimus incision. There is the remnant of her TRAM flap inferior and medially, about 20%. That flap is soft. No axillary adenopathy. Lungs: clear bilaterally to auscultation. Heart: regular rate and rhythm. Abdomen: normal bowel sounds; no hepatosplenomegaly no ventral,umbilical her nias or masses noted. There is healed TRAM flap scar in lower anterior abdominal wall. Pulses: pulses normal in all 4 extremities. Extremities: no clubbing, cyanosis, edema, or deformity noted with normal full range of motion of all joints. Neurologic: cranial nerves II-XII grossly intact. Skin: no rashes. The back wound has healed. Cervical Nodes: no significant adenopathy. Axillary Nodes: no significant adenopathy. Inguinal Nodes: no significant adenopathy. Psych: alert and cooperative; normal mood and affect; normal attention span and concentration. ASSESSMENT 1. Right breast cancer. 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 4. 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 6. 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 7. Deformity reconstructed right breast with painful radiation scar contracture and excess mastectomy skin scar contour deformity. 8. Deformity reconstructed left breast with excess mastectomy skin scar contour deformity. 9. History of bilateral breast implants reconstruction. 10. Estrogen receptor status negative. 11. Former smoker. PLAN Patient is concerned the breast implant may be leaking because of the pain she is having in the right breast that extends laterally. Clinically it doesn't appear to be leaking. Will order an MRI to evaluate. The increasing pain could be due to a combination of radiation fibrosis and loosening of the acellular dermal matrix graft sling with inflammation probably from the weight of the implant. She would benefit from revision breast reconstruction with placement of acellular dermal matrix graft. Instead of an inferolateral sling, will completely cover the implant with the biologic graft. This will help to minimize loosening of the biologic graft. The pain can also be due to radiation fibrosis capsular contracture. A capsulectomy will be done as well. Would reconstruct both breasts with complete coverage of the implants with a biologic graft. She also has a radiation scar contracture contour deformity superiorly between the latissimus flap and the grindstone breast that will necessitate multiple W- plasty reconstruction to improve the contour of the right breast and minimize some of the radiation scar contracture forces. Some of the right breast pain is laterally where there is some excess mastectomy skin contour deformity. Excision of this excess mastectomy skin contour deformity may be helpful. I discussed with the patient that some of this lateral pain is due to radiation fibrosis in the axillary area. Excision of radiation fibrosis in this area is high risk and won't be done because of the presence of neurovascular structures in the axilla. There is also excess mastectomy skin contour deformity laterally on the left breast as well that is causing discomfort with activity. Excision of this excess mastectomy skin contour deformity may be helpful. Just revising the breast with complete coverage with a biologic graft may not totally improve the discomfort. She may also benefit from placement of smaller implants. She is interested in this option but even then there is no guarantee that her discomfort will be eliminated. She states that the pain is such that it is difficult to work at this time. She may not want to take the chance of revision breast reconstruction with complete coverage of the implants with a biologic graft and smaller implants. The other option is to remove the implants at this time with capsulectomy and allow the breasts to heal without weight of the implants. This will allow her to get back to work and not worry about pain from the weight of her implants. At a later date she can still have revision breast reconstruction with placement of smaller implants. She is interested in this option but wants to think about it for a day or two and let us know which way she wants to go at this time. I will schedule her surgery in the next week or two depending on scheduling. If it is easier to get is scheduled sooner with less time available, then I would just remove the implants with capsulectomy at this time and do the other revision procedures at a later time (W-plasty and excision excess mastectomy skin contour deformity). It can be coordinated in the future at the time of placement of smaller implants. I would obtain the MRI only if she wound refrain from surgery if the MRI is negative. If she wants to proceed with surgery with removal of the implants or placement of smaller implants, then the MRI would be put on hold since the results of the MRI will not change the operative plan. Surgery will be done under general anesthesia with a surgical observation overnight stay in the hospital. She will have drains in for several days and be maintained on antibiotics until the drains are removed. She will keep her head elevated during the initial postop period. She underwent HBO therapy in the past for her soft tissue radionecrosis after placement of the latissimus dorsi flap. Depending on the severity of the radiation fibrosis that is seen at surgery, she may benefit from additional HBO treatments to maximize healing from the soft tissue radionecrosis from her radiation therapy. At the time of surgery, if there is abnormal fluid present, then would send it for culture. A positive culture may necessitate antibiotic modification. Any tissue that is excised will be sent to Pathology for analysis to rule out carcinoma. The patient was informed of the risks and complications of the procedure including alternatives to surgery. These were discussed with the patient personally. The patient voices understanding and wishes to proceed. Some of the risks and complications were included in a form from the [employer]. Wrote scripts for Percocet for pain (30 tabs) and for Valium for spasm (20 tabs). Encouraged the patient to stop smoking as it may have deleterious effects on wound healing. She states she has stopped smoking after her breast cancer diagnosis.
[2019-05-24] MEDS: Acetaminophen 500 MG Tablet 1000 MG PO ×2 (10:53→19:00)
[2019-05-24] MEDS: Scopolamine 1mg/72hr Patch 1 PATCH TRANSDERM. (10:53)
[2019-05-24] MEDS: Gabapentin 600 MG Tablet PO (10:53)
[2019-05-24] MEDS: Lactated Ringers 1,000 ML 100 ML IV (11:00)
[2019-05-24 11:31] LABS: Bedside Glucose 88 mg/dL (70-110)
[2019-05-24] MEDS: levoFLOXacin IV 500 MG/100 ML BAG 100 MG IV (12:21)
[2019-05-24] MEDS: Magnesium Sulfate 4gm/100mL 4 GM/100 ML IV.SOLN. IV (14:16)
--- NOTE | 2019-05-24 16:06 | PCM.OPRPT ---
Report of Operation Date of Procedure: 05/24/19 Pre-Operative Diagnosis: 1. Right breast cancer. 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 4. 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 6. 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 7. Deformity reconstructed right breast with painful radiation scar contracture and excess mastectomy skin scar contour deformity laterally. 8. Deformity reconstructed left breast with painful excess mastectomy skin scar contour deformity laterally. 9. History of bilateral breast implants reconstruction. 10. Estrogen receptor status negative. 11. Former smoker. Post-Operative Diagnosis: Same. Surgery/Procedure Performed:: 1. Revision left breast reconstruction with excision painful excess mastectomy skin scar contour deformity. 2. Revision left breast reconstruction with removal cohesive gel implant and capsulectomy. 3. Revision right breast reconstruction with excision painful excess mastectomy skin scar contour deformity and painful radiation fibrosis. 4. Revision right breast reconstruction with removal cohesive gel implant and capsulectomy. 5. Revision right breast reconstruction radiation scar contour deformity with multiple W-plasty (22.5 cm2). Description of Surgical Findings:: 49 year old woman presents today with complaints of pain in her bilateral breast reconstruction, worse on the right. She works at [employer] and doesn't do heavy lifting. She thinks she may have twisted her torso while at work which started the painful process. Her last breast reconstruction surgery occurred on 05/08/18 where she underwent underwent delayed right breast reconstruction with removal of saline tissue real property appraiser with replacement cohesive gel implant (605 ml) and revision right breast reconstruction with multiple capsulotomies and revision asymmetric inframammary fold with capsular plication and placement of FlexHD acellular dermal matrix graft inferolateral sling (286 cm2) and delayed left breast reconstruction with removal of saline tissue real property appraiser with replacement cohesive gel implant (545 ml) and revision left breast reconstruction with multiple capsulotomies and revision asymmetric inframammary fold with capsular plication and placement of FlexHD acellular dermal matrix graft inferolateral sling (286 cm2). She has done well after this breast reconstruction surgery until recently when she started having breast pain, worse on the right. She denies any trauma. She denies fever. Even when she wears an loli wrap for compression, she still has the pain. It was so bad today, she had to leave work to come here for evaluation. She had a recent repair of complex abdominal wall hernia in [facility] in December,. Patient was informed of the risks and complications of the procedure including alternatives to surgery. These were discussed with the patient personally. Patient voices understanding and wishes to proceed. Some of the risks and complications were included in a form from the [employer]. IV Fluids - 1900 ml. Urine Output - 1000 ml. I used Geri absorbable hemostat, (I used 4 vials, 2 in each breast). Reference Number - [id number]. Lot Number - [id number]. Expiration - November 15, 2023. industrial economist: Sultana Polanco. Type of Anesthesia:: General Specimen's removed: 1. Left breast tissue and capsule and implant. 2. Right breast tissue and capsule and implant. Drains: Kolton x3 (2 in right breast and one in left breast). Estimated Blood Loss (mL): 50 ml. Fluids Replaced: 2900 ml (IV Fluids 1900 ml, Urine Output 1000 ml). Description of Procedure: In the preop area, I marked out the sternal midline to the umbilicus. I marked out the inframammary folds bilaterally. I had the patient lift her arms up bilaterally to determine the amount of painful excess mastectomy skin scar contour deformity and this tissue was marked with an ellipse. I also marked out the radiation scar contour deformity on the superior aspect of the right breast with multiple W-plasty markings. Patient was taken to OR in supine position and was placed under general anesthesia. The breasts were prepped and draped in the usual fashion. SCD's were placed for DVT prophylaxis. Perioperative antibiotics were given intravenously. A encinas catheter was placed. Using xylocaine with epinephrine, the lateral elliptical markings and the radiation scar contour deformity on the superior aspect right breast were infiltrated. After waiting 5 minutes for the anesthetic to take effect, elliptical horizontal incision was made on the lateral aspect right breast reconstruction. After dissecting through the subcutaneous tissue, the breast capsule was seen. A capsulotomy was performed and the implant was removed. The cohesive gel implant was intact. The capsule was thickened and the biologic graft was not disrupted. No exudate or abnormal fluid was seen in the breast pocket after the implant was removed so no culture was sent. A capsulectomy was performed to minimizer seroma formation in the breast pocket and to help minimize her painful symptomatology. Next I excised the radiation scar contour deformity on the superior aspect right breast reconstruction. Dissection extended into the subcutaneous tissue down to the latissimus muscle. Hemostasis was obtained with electrocautery. After the tissue was excised I started with the multiple W-plasty closure with 3-0 Monocryl interrupted sutures for the deep dermis and subcutaneous tissue. The skin was approximated with 4-0 Prolene vertical mattress interrupted sutures and simple interrupted sutures. The size of the wound for the multiple W-plasty closure was 15 x 1.5 cm or 22.5 cm2. Some of the breast tissue and capsule were sent to Pathology for analysis to rule out carcinoma. The inframammary fold on the right showed some loosening medially in the area of the previous TRAM flap. I made an incision through the inferior aspect of the flap down through the subcutaneous tissue until the muscle was seen. I had marked out an area in the central aspect of the flap that coordinates with the rest of the inframammary fold. I placed 2-0 Vicryl sutures from the dermis of the flap to the chest wall fascia. Four sutures were used to help create an inframammary crease medially. Hemostasis was obtained with electrocautery. The inferior TRAM flap incision was closed in a layered fashion with 3-0 Monocryl interrupted sutures for the deep dermis and subcutaneous tissue. The skin was approximated with 4-0 Prolene vertical mattress interrupted sutures and simple interrupted sutures. No vascular compromise was noted on the TRAM flap. The right breast pocket was packed with gauze at this point. I then made an elliptical horizontal incision was made on the lateral aspect left breast reconstruction. After dissecting through the subcutaneous tissue, the breast capsule was seen. A capsulotomy was performed and the implant was removed. The cohesive gel implant was intact. The capsule was thickened and the biologic graft was not disrupted. No exudate or abnormal fluid was seen in the breast pocket after the implant was removed so no culture was sent. A capsulectomy was performed to minimizer seroma formation in the breast pocket and to help minimize her painful symptomatology. The left breast tissue and capsule were sent to Pathology for analysis to rule out carcinoma. Hemostasis was obtained in both breast pocket wounds with electrocautery. Both breast pocket wounds were irrigated with Irrisept 0.05% Chlorhexidine solution. This was followed by irrigation with saline. A size 15 Kolton drain was placed into the left breast pocket through a separate stab incision laterally. It was secured to the skin with 3-0 Nylon suture. Two size 15 Kolton drains were placed into the right breast pocket through separate stab incisions laterally. They were secured to the skin with 3-0 Nylon suture. To further minimize seroma formation, I sprayed Geri absorbable hemostat into both breast pocket. I used two vials in each breast pocket. Both lateral breast wounds were then closed in a layered fashion with 3-0 Vicryl figure of eight interrupted sutures for the deep subcutaneous tissue. The deep dermis and subcutaneous tissue was approximated with 3-0 Monocryl interrupted sutures. The skin was approximated 3-0 V lock unidirectional barbed running subcuticular suture. This was followed with Histoacryl skin tissue adhesive over all the incisions. Her breast incisions were dressed with Kerlix gauze followed by an LOLI wrap for compression to minimize seroma formation. Patient tolerated the procedure well and was sent to PACU in satisfactory condition. Patient will be sent upstairs for continued postop care. She will keep her head elevated during the initial postop period. She will have the drains removed in 10-14 days and be maintained on antibiotics until the drains are removed. She will also be on a lifting restriction. The intact cohesive gel implants were also sent to Pathology for gross evaluation. Grafts/Implants Used: None. - Complications None. - Admit VTE Documentation VTE Present on Admission: No VTE Mechan Device Prophylaxis: SCD's VTE Pharm Prophylaxis ordered?: Yes Surgery Charges CPT - 93453 ICD-10 - C50.911, F40.298, Z90.13, T66.xxxS, L59.8, T85.44xA, T85.848A, N65.0, N65.1, Z98.82, Z17.1, Z87.891 45031 C50.911, F40.298, Z90.13, T66.xxxS, L59.8, T85.44xA, T85.848A, N65.0, N65.1, Z98.82, Z17.1, Z87.891 [id number] C50.911, F40.298, Z90.13, T66.xxxS, L59.8, T85.44xA, T85.848A, N65.0, N65.1, Z98.82, Z17.1, Z87.891 [id number] C50.911, F40.298, Z90.13, T66.xxxS, L59.8, T85.44xA, T85.848A, N65.0, N65.1, Z98.82, Z17.1, Z87.891 42151 C50.911, F40.298, Z90.13, T66.xxxS, L59.8, T85.44xA, T85.848A, N65.0, N65.1, Z98.82, Z17.1, Z87.891
--- NOTE | 2019-05-24 18:56 | PHA.PHARE_ITS ---
Consult Pharmacy has been consulted to manage selected antiobiotic: Vancomycin Type of Consult: New start Suspected Infection: Skin/Soft tissue Prior Doses of Antibiotics Received/Current Regimen: Received vancomycin 1250mg IV x1 this morning at 10:30 Weight used for dosin.7 kg Estimated Creatinine Clearance: 62.7ml/min Goal Trough: 10-15 mcg/mL Pharmacy Plan for Drug Dosing: Will start vancomycin 750mg IV q12h per [facility] dosing protocol with the first dose 12 hours after the 1250mg dose. A trough will be ordered to be drawn before the 4th total dose tomorrow night. The patient's CrCl of 62.7 ml/min was calculated using an adjusted body weight of 62.6kg. Pharmacy Service will continue to monitor and adjust dosing as required. Follow-Up Labs: Trough Vancomycin Labs to be done on [date and time ordered]: 05/25/19 21:30
[2019-05-24] MEDS: Lactated Ringers 1,000 ML 60 ML IV (18:59)
[2019-05-24] MEDS: oxyCODONE 5 MG Tablet PO (19:01)
[2019-05-24] MEDS: HYDROmorphone 1 MG/ML Syringe IV (19:58)
[2019-05-24] MEDS: Pregabalin 75 MG Capsule 150 MG PO (19:58)
[2019-05-24] MEDS: Atorvastatin Calcium 20 MG Tablet PO (22:11)
[2019-05-24] MEDS: Docusate Sodium 100 MG Capsule PO (22:12)
[2019-05-24] MEDS: LORazepam 0.5 MG Tablet PO (22:12)
[2019-05-24] MEDS: HYDROmorphone 0.5 MG/0.5 ML SYRINGE IV (23:04)
[2019-05-25] MEDS: Acetaminophen 500 MG Tablet 1000 MG PO ×4 (00:06→20:04)
[2019-05-25] MEDS: oxyCODONE 5 MG Tablet PO ×5 (00:07→21:46)
[2019-05-25 03:30] VITALS: BP 120/79; PULSE 98; RESP 18; TEMP 36.8; O2SAT 98
[2019-05-25] MEDS: HYDROmorphone 0.5 MG/0.5 ML SYRINGE IV ×3 (03:30→18:48)
[2019-05-25] MEDS: Lactated Ringers 1,000 ML 60 ML IV (05:42)
[2019-05-25 06:32] LABS: Hematocrit 38.5 % (37-47); Hemoglobin 13.1 g/dL (12.0-15.0); Mean Corpuscular Hgb 29.1 pg (27.0-32.0); Mean Corpuscular Volume 85.6 fL (81-99); Mean Platelet Vol. 10.1 fl (6.2-12.0); Platelet Count 171 K/mm3 (150-450); RBC Distribution Width CV 13.1 % (11.6-14.6); RBC Distribution Width SD 40.1 fl (35.1-43.9); White Blood Count 8.9 K/mm3 (4.4-11.0)
[2019-05-25 06:57] LABS: Anion Gap 5 (5-15); BUN 12 mg/dL (7-18); BUN/Creat Ratio 15.8 RATIO (10-20); Calcium,Total 8.1 mg/dL (8.5-10.1); Chloride 110 mmol/L (98-107); Creatinine, Serum 0.76 mg/dL (0.55-1.02); EST Glomerular Filtration Rate 86 mL/min (>60); Est Glom Filt Rate - Afr Amer 104 mL/min (>60); Estimated Creatinine Clearance 66.83 ml/min; Glucose 115 mg/dL (74-106); Potassium 4.2 mmol/L (3.5-5.1); Prealbumin 20.5 mg/dL (20.0-40.0); Sodium Level 140 mmol/L (136-145)
[2019-05-25] MEDS: 0.9% Saline Lock 10 ML Syringe IV ×6 (08:30→18:48)
[2019-05-25] MEDS: Docusate Sodium 100 MG Capsule PO ×2 (08:38→21:51)
[2019-05-25] MEDS: Sertraline 100 MG Tablet 200 MG PO (08:38)
[2019-05-25] MEDS: Enoxaparin 40 MG/0.4 ML Syringe SC (08:38)
[2019-05-25] MEDS: Pregabalin 50 MG Capsule 100 MG PO (08:50)
[2019-05-25 08:52] VITALS: BP 100/65; PULSE 94; RESP 18; TEMP 36.8; O2SAT 97
[2019-05-25] MEDS: levoFLOXacin IV 500 MG/100 ML BAG 100 MG IV (08:59)
[2019-05-25 11:30] VITALS: O2SAT 98
[2019-05-25] MEDS: HYDROmorphone 1 MG/ML Syringe IV ×3 (11:56→22:55)
--- NOTE | 2019-05-25 12:23 | PN.SURG_ITS ---
Subjective: Postop #1 Patient complaints of incisional pain. Still needs IV analgesia. Is unsteady on her feet with ambulation. - Physical Exam Vitals/I&O's: Vital Signs Temp Pulse Resp BP Pulse Ox 98.2 F 94 18 100/65 98 05/25/19 08:52 05/25/19 08:52 05/25/19 08:52 05/25/19 08:52 05/25/19 11:30 Oxygen Flow Rate (L/min) 2 Oxygen Delivery Method Room Air Weight: 186 lb 11.704 oz Body Mass Index (BMI) 35.2 Intake and Output for Last 24 Hours 05/23/19 05/24/19 05/25/19 23:59 23:59 23:59 Intake Total 1702 / 1702 1470 / 1470 Output Total 100 / 765 2290 / 2290 Balance 1602 / 937 -820 / -820 Drainage 55 ml yesterday General: Alert, Oriented x3 HEENT: PERRLA, EOMI Oral: Moist Mucosa Neck: Supple Abdomen: Soft, Non-Distended Skin: Incision - bilateral breast incisions are dry and intact. No vascular compromise noted on the breast flaps. No clinical evidence of hematoma. Some tenderness to palpation. Neurological: Cranial nerves II-XII grossly intact Psych/Mental Status: Normal Affect, Appropriate Laboratory Results 05/25/19 05:44: Sodium 140, Potassium 4.2, Chloride 110 H, Carbon Dioxide 25.0, Anion Gap 5, BUN 12, Creatinine 0.76, Estim Creat Clear Calc 66.83, Est GFR (MDRD) Af Amer 104, Est GFR (MDRD) Non-Af 86, BUN/Creatinine Ratio 15.8, Glucose 115 H, Calcium 8.1 L, Prealbumin 20.5 05/25/19 05:44: WBC 8.9, RBC 4.50, Hgb 13.1, Hct 38.5, MCV 85.6, MCH 29.1, MCHC 34.0, RDW Std Deviation 40.1, RDW Coeff of Adrian 13.1, Plt Count 171, MPV 10.1 Current Medications Acetaminophen (Tylenol) 1,000 mg PO Q6 [facility] Last Admin: 05/25/19 11:56 Dose: 1,000 mg Documented by: Atorvastatin Calcium (Lipitor) 20 mg PO QHS [facility] Last Admin: 05/24/19 22:11 Dose: 20 mg Documented by: Diazepam (Valium) 5 mg PO Q6H PRN PRN Reason: spasm Docusate Sodium (Colace) 100 mg PO BID [facility] Last Admin: 05/25/19 08:38 Dose: 100 mg Documented by: Enoxaparin Sodium (Lovenox) 40 mg SC DAILY [facility] Last Admin: 05/25/19 08:38 Dose: 40 mg Documented by: Enteral Nutritional Formula (Ensure Surgery) 237 ml PO TIDCM [facility] Last Admin: 05/25/19 11:54 Dose: Not Given Documented by: Hydromorphone HCl (Dilaudid Inj) 0.5 - 1 mg IV Q3H PRN PRN PRN Reason: Pain Score 6-1010 Last Admin: 05/25/19 11:56 Dose: 1 mg Documented by: Hydromorphone HCl (Dilaudid Inj) 0.5 - 1 mg IV Q3H PRN PRN PRN Reason: Pain Score 6-1010 Last Admin: 05/25/19 08:29 Dose: 0.5 mg Documented by: Levofloxacin (Levaquin Iv) 500 mg in 100 mls @ 100 mls/hr IV Q24 [facility] Last Infusion: 05/25/19 10:00 Dose: Infused Documented by: Lactated Ringer's () 1,000 mls @ 60 mls/hr IV .[id number] [facility] Last Infusion: 05/25/19 11:58 Dose: 60 mls/hr Documented by: Vancomycin IV Pharmacy to Dose (1 ea/ Sodium Chloride) 500 mls @ 250 mls/hr IV X1 PRN; Protocol PRN Reason: Rx to Dose Sodium Chloride () 250 mls @ 15 mls/hr IV .[id number] PRN PRN Reason: Saline Flush Sodium Chloride () 250 mls @ 15 mls/hr IV .[id number] PRN PRN Reason: Additional IVPB Infusion Vancomycin HCl 750 mg/ Sodium (Chloride) 265 mls @ 250 mls/hr IV Q12H [facility] Last Infusion: 05/25/19 11:58 Dose: Infused Documented by: Insulin Human Lispro (Humalog Kwikpen (Bkc)) 1 - 6 unit SC Q4H PRN PRN; Protocol PRN Reason: BG>/= 180, SEE PROTOCOL Loperamide HCl (Imodium) 2 mg PO Q4H PRN PRN Reason: loose stool Lorazepam (Ativan) 0.5 mg PO QHS PRN PRN Reason: anxiety Last Admin: 05/24/19 22:12 Dose: 0.5 mg Documented by: Magnesium Oxide (Mag-Ox 400) 400 mg PO BID PRN PRN PRN Reason: Constipation Ondansetron HCl (Zofran Odt) 4 mg PO Q6H PRN PRN PRN Reason: NAUSEA Oxycodone HCl (Oxyir) 5 - 10 mg PO Q4H PRN PRN PRN Reason: Pain Score 4-10/10 Last Admin: 05/25/19 10:41 Dose: 10 mg Documented by: Pregabalin (Lyrica) 100 mg PO DAILY [facility] Last Admin: 05/25/19 08:50 Dose: 100 mg Documented by: Pregabalin (Lyrica) 150 mg PO DAILY@1700 [facility] Scopolamine HBr (Transderm-Scop) 1 patch TD Q3D [facility] Stop: 05/25/19 18:23 Last Admin: 05/24/19 18:58 Dose: Not Given Documented by: Sertraline HCl (Zoloft) 200 mg PO DAILY [facility] Last Admin: 05/25/19 08:38 Dose: 200 mg Documented by: Sodium Chloride () 10 - 40 ml IV UD PRN PRN Reason: SALINE FLUSH Last Admin: 05/25/19 12:00 Dose: 10 ml Documented by: Trazodone HCl (Desyrel) 50 mg PO QHS PRN PRN Reason: SLEEP Medical Necessity - Tobacco Use Smoking Status: Former smoker Tobacco Use: Non-smoker Assessment/Plan All Active Problems (Last Reviewed 05/19/19 @ 12:[address] Junior Ahn MD) Left forearm pain (Acute) Seasonal allergies (Acute) Back pain (Acute) BONE FRACTURES - BROKEN RIGHT ARM (Acute) Breast lump in female (Acute) Breast cancer in female (Acute) History of emotional problems (Acute) Fibroids (Acute) Deformity of reconstructed breast (Acute) Postoperative hematoma of subcutaneous tissue following non-dermatologic procedure (Acute) Hematoma of breast (Acute) Partial loss of skin graft (Acute) Medical management (Acute) Disproportion of reconstructed breast (Acute) 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 Right breast cancer. 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 4. 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 6. 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 7. Deformity reconstructed right breast with painful radiation scar contracture and excess mastectomy skin scar contour deformity laterally. 8. Deformity reconstructed left breast with painful excess mastectomy skin scar contour deformity laterally. 9. History of bilateral breast implants reconstruction. 10. Estrogen receptor status negative. 11. Former smoker. 12. s/p revision left breast reconstruction with excision painful excess mastectomy skin scar contour deformity and revision left breast reconstruction with removal cohesive gel implant and capsulectomy and revision right breast reconstruction with excision painful excess mastectomy skin scar contour deformity and painful radiation fibrosis and revision right breast reconstruction with removal cohesive gel implant and capsulectomy and revision right breast reconstruction radiation scar contour deformity with multiple W- plasty (22.5 cm2). Bilateral breast incisions are dry and intact. No vascular compromise noted on the breast flaps. No clinical evidence of hematoma. She has incisional pain and still needs IV analgesia. She is unsteady on her feet with ambulation. Prealbumin was 20.5. Encourage nutritional supplementation with protein to help the healing process. Continue IV antibiotics for the drains until discharge then will send home on po antibiotics until the drains are removed. Keep head elevated. Continue lifting restriction and bruce wrap chest wall compression. Will discharge home when tolerating po analgesia and is more steady on her feet with ambulation.
[2019-05-25] MEDS: diazePAM 5 MG Tablet PO (13:21)
[2019-05-25 15:06] VITALS: BP 94/66; PULSE 91; RESP 16; TEMP 36.8; O2SAT 96
[2019-05-25 16:21] VITALS: BP 109/66; PULSE 80
[2019-05-25] MEDS: Pregabalin 75 MG Capsule 150 MG PO (17:40)
--- NOTE | 2019-05-25 18:56 | NURSING ---
Tylenol not given yet, tried to give twice and it is not time yet, too much in a 24hr period.
[2019-05-25 21:04] VITALS: BP 121/75; PULSE 93; RESP 18; TEMP 36.8; O2SAT 98
[2019-05-25] MEDS: Atorvastatin Calcium 20 MG Tablet PO (21:51)
[2019-05-25 22:25] LABS: Vancomycin, Trough Level 11.3 ug/mL (5.0-15.0)
--- NOTE | 2019-05-25 22:27 | PCM.RX.CS ---
Consult Pharmacy has been consulted to manage selected antiobiotic: Vancomycin Type of Consult: Follow-up Suspected Infection: Skin/Soft tissue Prior Doses of Antibiotics Received/Current Regimen: Medications Vancomycin HCl 750 mg/ Sodium (Chloride) 265 mls @ 250 mls/hr IV Q12H [facility] Last Admin: 05/25/19 21:48 Dose: 250 mls/hr Labs: Sodium 140 mmol/L (136-145) 05/25/19 05:44 Potassium 4.2 mmol/L (3.5-5.1) 05/25/19 05:44 Chloride 110 mmol/L (98-107) H 05/25/19 05:44 Carbon Dioxide 25.0 mmol/L (21.0-32.0) 05/25/19 05:44 Anion Gap 5 (5-15) 05/25/19 05:44 BUN 12 mg/dL (7-18) 05/25/19 05:44 Creatinine 0.76 mg/dL (0.55-1.02) 05/25/19 05:44 Est GFR (MDRD) Af Amer 104 mL/min (>60) 05/25/19 05:44 Est GFR (MDRD) Non-Af 86 mL/min (>60) 05/25/19 05:44 BUN/Creatinine Ratio 15.8 RATIO (10-20) 05/25/19 05:44 Glucose 115 mg/dL (74-106) H 05/25/19 05:44 Vancomycin Trough 11.3 ug/mL (5.0-15.0) 05/25/19 21:43 Weight used for dosin.7 kg Estimated Creatinine Clearance: 67 Goal Trough: 10-15 mcg/mL Pharmacy Plan for Drug Dosing: Trough level of 11.3 was within the target range of 10-15. Will continue dosing 750mg q12h and redraw trough in 4 days. Pharmacy Service will continue to monitor and adjust dosing as required. Follow-Up Labs: Trough Vancomycin Labs to be done on [date and time ordered]: 05/29/19 @0930
[2019-05-26] MEDS: oxyCODONE 5 MG Tablet PO ×5 (01:43→21:34)
[2019-05-26 03:56] VITALS: BP 140/88; PULSE 82; RESP 18; TEMP 36.6; O2SAT 98
[2019-05-26] MEDS: HYDROmorphone 1 MG/ML Syringe IV ×4 (04:43→23:18)
[2019-05-26] MEDS: 0.9% Saline Lock 10 ML Syringe IV ×7 (04:44→23:19)
[2019-05-26] MEDS: Acetaminophen 500 MG Tablet 1000 MG PO ×2 (06:11→18:47)
[2019-05-26] MEDS: Sertraline 100 MG Tablet 200 MG PO (09:28)
[2019-05-26] MEDS: Docusate Sodium 100 MG Capsule PO ×2 (09:28→21:34)
[2019-05-26] MEDS: Pregabalin 50 MG Capsule 100 MG PO (09:29)
[2019-05-26] MEDS: Enoxaparin 40 MG/0.4 ML Syringe SC (09:29)
[2019-05-26] MEDS: levoFLOXacin IV 500 MG/100 ML BAG 100 MG IV (09:29)
[2019-05-26 09:30] VITALS: O2SAT 96
[2019-05-26] MEDS: HYDROmorphone 0.5 MG/0.5 ML SYRINGE IV ×2 (09:30→12:40)
[2019-05-26 09:38] VITALS: BP 110/71; PULSE 88; RESP 18; TEMP 36.9; O2SAT 96
[2019-05-26] MEDS: diazePAM 5 MG Tablet PO (14:01)
--- NOTE | 2019-05-26 15:09 | PCM.PN.SRG ---
Subjective: Postop #2 Patient still has incisional pain. Still needs intermittent IV analgesia. Is less unsteady on her feet with ambulation. - Physical Exam Vitals/I&O's: Vital Signs Temp Pulse Resp BP Pulse Ox 98.4 F 88 18 110/71 96 05/26/19 09:38 05/26/19 09:38 05/26/19 09:38 05/26/19 09:38 05/26/19 09:38 Oxygen Flow Rate (L/min) 2 Oxygen Delivery Method Room Air Weight: 186 lb 11.704 oz Body Mass Index (BMI) 35.2 Intake and Output for Last 24 Hours 05/24/19 05/25/19 05/27/19 23:59 23:59 00:59 Intake Total 1702 / 1702 3086 / 3086 1193 / 1193 Output Total 100 / 765 2905 / 2905 1520 / 1520 Balance 1602 / 937 181 / 181 -327 / -327 Drainage 455 ml yesterday, 120 ml today. General: Alert, Oriented x3 HEENT: PERRLA, EOMI Oral: Moist Mucosa Neck: Supple Abdomen: Soft, Non-Distended Skin: Incision - bilateral breast incisions are dry and intact. No vascular compromise noted on the breast flaps. No clinical evidence of hematoma. Some tenderness to palpation. Neurological: Cranial nerves II-XII grossly intact Psych/Mental Status: Normal Affect, Appropriate Laboratory Results 05/25/19 21:43: Vancomycin Trough 11.3 Current Medications Acetaminophen (Tylenol) 1,000 mg PO Q6 [facility] Last Admin: 05/26/19 11:54 Dose: Not Given Documented by: Atorvastatin Calcium (Lipitor) 20 mg PO QHS [facility] Last Admin: 05/25/19 21:51 Dose: 20 mg Documented by: Diazepam (Valium) 5 mg PO Q6H PRN PRN Reason: spasm Last Admin: 05/26/19 14:01 Dose: 5 mg Documented by: Docusate Sodium (Colace) 100 mg PO BID [facility] Last Admin: 05/26/19 09:28 Dose: 100 mg Documented by: Enoxaparin Sodium (Lovenox) 40 mg SC DAILY [facility] Last Admin: 05/26/19 09:29 Dose: 40 mg Documented by: Enteral Nutritional Formula (Ensure Surgery) 237 ml PO TIDCM [facility] Last Admin: 05/26/19 11:53 Dose: Not Given Documented by: Hydromorphone HCl (Dilaudid Inj) 0.5 - 1 mg IV Q3H PRN PRN PRN Reason: Pain Score 6-10/10 Last Admin: 05/26/19 04:43 Dose: 1 mg Documented by: Hydromorphone HCl (Dilaudid Inj) 0.5 - 1 mg IV Q3H PRN PRN PRN Reason: Pain Score 6-10/10 Last Admin: 05/26/19 12:40 Dose: 0.5 mg Documented by: Levofloxacin (Levaquin Iv) 500 mg in 100 mls @ 100 mls/hr IV Q24 [facility] Last Infusion: 05/26/19 10:30 Dose: Infused Documented by: Vancomycin IV Pharmacy to Dose (1 ea/ Sodium Chloride) 500 mls @ 250 mls/hr IV X1 PRN; Protocol PRN Reason: Rx to Dose Sodium Chloride () 250 mls @ 15 mls/hr IV .[id number] PRN PRN Reason: Saline Flush Last Admin: 05/26/19 13:58 Dose: 15 mls/hr Documented by: Sodium Chloride () 250 mls @ 15 mls/hr IV .[id number] PRN PRN Reason: Additional IVPB Infusion Vancomycin HCl 750 mg/ Sodium (Chloride) 265 mls @ 250 mls/hr IV Q12H [facility] Last Infusion: 05/26/19 13:59 Dose: Infused Documented by: Insulin Human Lispro (Humalog Kwikpen (Bkc)) 1 - 6 unit SC Q4H PRN PRN; Protocol PRN Reason: BG>/= 180, SEE PROTOCOL Loperamide HCl (Imodium) 2 mg PO Q4H PRN PRN Reason: loose stool Lorazepam (Ativan) 0.5 mg PO QHS PRN PRN Reason: anxiety Last Admin: 05/24/19 22:12 Dose: 0.5 mg Documented by: Magnesium Oxide (Mag-Ox 400) 400 mg PO BID PRN PRN PRN Reason: Constipation Ondansetron HCl (Zofran Odt) 4 mg PO Q6H PRN PRN PRN Reason: NAUSEA Oxycodone HCl (Oxyir) 5 - 10 mg PO Q4H PRN PRN PRN Reason: Pain Score 4-10/10 Last Admin: 05/26/19 11:54 Dose: 10 mg Documented by: Pregabalin (Lyrica) 100 mg PO DAILY [facility] Last Admin: 05/26/19 09:29 Dose: 100 mg Documented by: Pregabalin (Lyrica) 150 mg PO DAILY@1700 [facility] Last Admin: 05/25/19 17:40 Dose: 150 mg Documented by: Sertraline HCl (Zoloft) 200 mg PO DAILY [facility] Last Admin: 05/26/19 09:28 Dose: 200 mg Documented by: Sodium Chloride () 10 - 40 ml IV UD PRN PRN Reason: SALINE FLUSH Last Admin: 05/26/19 12:40 Dose: 10 ml Documented by: Trazodone HCl (Desyrel) 50 mg PO QHS PRN PRN Reason: SLEEP Medical Necessity - Tobacco Use Smoking Status: Former smoker Tobacco Use: Non-smoker Assessment/Plan All Active Problems (Last Reviewed 05/19/19 @ 12:[address] Junior Ahn MD) Left forearm pain (Acute) Seasonal allergies (Acute) Back pain (Acute) BONE FRACTURES - BROKEN RIGHT ARM (Acute) Breast lump in female (Acute) Breast cancer in female (Acute) History of emotional problems (Acute) Fibroids (Acute) Deformity of reconstructed breast (Acute) Postoperative hematoma of subcutaneous tissue following non-dermatologic procedure (Acute) Hematoma of breast (Acute) Partial loss of skin graft (Acute) Medical management (Acute) Disproportion of reconstructed breast (Acute) 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 Right breast cancer. 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 4. 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 6. 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 7. Deformity reconstructed right breast with painful radiation scar contracture and excess mastectomy skin scar contour deformity laterally. 8. Deformity reconstructed left breast with painful excess mastectomy skin scar contour deformity laterally. 9. History of bilateral breast implants reconstruction. 10. Estrogen receptor status negative. 11. Former smoker. 12. s/p revision left breast reconstruction with excision painful excess mastectomy skin scar contour deformity and revision left breast reconstruction with removal cohesive gel implant and capsulectomy and revision right breast reconstruction with excision painful excess mastectomy skin scar contour deformity and painful radiation fibrosis and revision right breast reconstruction with removal cohesive gel implant and capsulectomy and revision right breast reconstruction radiation scar contour deformity with multiple W-plasty (22.5 cm2). Bilateral breast incisions are dry and intact. No vascular compromise noted on the breast flaps. No clinical evidence of hematoma. She has incisional pain and still needs IV analgesia. She is less unsteady on her feet with ambulation. Prealbumin was 20.5. Encourage nutritional supplementation with protein to help the healing process. Continue IV antibiotics for the drains until discharge then will send home on po antibiotics until the drains are removed. Keep head elevated. Continue lifting restriction and bruce wrap chest wall compression. Will discharge home when tolerating po analgesia and is more steady on her feet with ambulation. Anticipate discharge tomorrow. Followup office one week.
[2019-05-26 17:30] VITALS: BP 116/86; PULSE 106; RESP 18; TEMP 36.9; O2SAT 98
[2019-05-26] MEDS: Pregabalin 75 MG Capsule 150 MG PO (17:38)
[2019-05-26 21:21] VITALS: BP 137/65; PULSE 91; RESP 18; TEMP 36.6; O2SAT 100
[2019-05-26] MEDS: Atorvastatin Calcium 20 MG Tablet PO (21:34)
[2019-05-27 02:20] VITALS: BP 121/55; PULSE 91; RESP 18; TEMP 36.6; O2SAT 99
[2019-05-27] MEDS: diazePAM 5 MG Tablet PO ×2 (02:21→09:32)
[2019-05-27] MEDS: oxyCODONE 5 MG Tablet PO ×3 (03:34→11:54)
[2019-05-27] MEDS: Acetaminophen 500 MG Tablet 1000 MG PO ×2 (04:42→11:54)
[2019-05-27] MEDS: 0.9% Saline Lock 10 ML Syringe IV ×2 (06:10→09:38)
[2019-05-27] MEDS: HYDROmorphone 1 MG/ML Syringe IV (06:11)
[2019-05-27 06:27] LABS: Hematocrit 33.5 % (37-47); Hemoglobin 11.4 g/dL (12.0-15.0); Mean Corpuscular Hgb 29.2 pg (27.0-32.0); Mean Corpuscular Volume 85.7 fL (81-99); Mean Platelet Vol. 9.7 fl (6.2-12.0); Platelet Count 148 K/mm3 (150-450); RBC Distribution Width CV 12.7 % (11.6-14.6); RBC Distribution Width SD 39.3 fl (35.1-43.9); Red Blood Count 3.91 M/mm3 (4.2-5.4); White Blood Count 5.6 K/mm3 (4.4-11.0)
[2019-05-27 06:45] LABS: Anion Gap 5 (5-15); BUN 11 mg/dL (7-18); Calcium,Total 8.7 mg/dL (8.5-10.1); Chloride 108 mmol/L (98-107); Creatinine, Serum 0.79 mg/dL (0.55-1.02); EST Glomerular Filtration Rate 82 mL/min (>60); Est Glom Filt Rate - Afr Amer 99 mL/min (>60); Estimated Creatinine Clearance 64.29 ml/min; Glucose 96 mg/dL (74-106); Potassium 3.6 mmol/L (3.5-5.1); Sodium Level 140 mmol/L (136-145)
[2019-05-27 09:25] VITALS: BP 108/74; PULSE 100; RESP 16; TEMP 36.4; O2SAT 97
[2019-05-27] MEDS: Docusate Sodium 100 MG Capsule PO (09:32)
[2019-05-27] MEDS: Sertraline 100 MG Tablet 200 MG PO (09:33)
[2019-05-27] MEDS: levoFLOXacin IV 500 MG/100 ML BAG 100 MG IV (09:33)
[2019-05-27] MEDS: Enoxaparin 40 MG/0.4 ML Syringe SC (09:33)
[2019-05-27] MEDS: Pregabalin 50 MG Capsule 100 MG PO (09:36)
--- NOTE | 2019-05-27 11:21 | PCM.DC ---
You will use the following diet at home:: No restrictions, Other - encourage nutritional supplmentation with protein to help the healing process. Discharge Activity: - - keep head elevated. no heavy lifting. Return to work on:: 06/24/19 - tentative May shower in (days): 14 - after the drains are removed. May resume sexual activity in: 10-14 days Weight Bearing Status: Weight bearing as tolerated Lifting Restrictions: 20 lbs. Keep extremity elevated above heart level: - - elevate head. Call your doctor if your incision/area has: Continuous Slow Oozing, Sudden Increased Bleeding, Increased Pain/ Swelling, Increased Redness, Foul Smelling Discharge, Swelling at the incision site Call your doctor if you observe: Fever of 101 or Higher, Coldness, Increased Pain, Shortness of breath, Calf discomfort, Uncontrolled pain Suture Line Care: - - dry dressings every other day. Change Dressing in (Days):: 2 - dry dressings every other day followed by compression bruce wrap. Cleanse incision/area with: - - may get incisions wet in the shower after the drains are removed. Drain: Suction - amrit drain x3 to bulb suction. empty and record output daily. Allergies/Adverse Reactions: Allergies cat dander Allergy (Severe, Verified 05/24/19 10:38) Lips & throat swole FIBERGLASS Allergy (Severe, Uncoded 05/24/19 10:38) SEVERE ITCHING AND RASH POULTRY Allergy (Uncoded 05/24/19 10:38) Anaphylaxis Medications to take at Discharge sertraline 100 mg tablet 200 mg PO DAILY #180 tab 10/30/18 atorvastatin 20 mg tablet 20 mg PO QHS #90 tab 11/28/18 loperamide 2 mg capsule 2 mg PO Q1-4H PRN #30 cap 12/11/18 lorazepam 0.5 mg tablet 0.5 mg PO QHS PRN #30 tab 05/16/19 Pregabalin 100 mg PO DAILY 05/22/19 Pregabalin [Lyrica] 150 mg PO DAILY@1700 05/22/19 Trazodone HCl 50 mg PO QHS 05/22/19 Diazepam [Valium] 5 mg PO 4X/DAY PRN PRN #30 tab 05/27/19 Docusate Sodium [Colace] 100 mg PO BID #60 cap 05/27/19 Doxycycline [Vibramycin] 100 mg PO BID #30 cap 05/27/19 HYDROmorphone tablet [Dilaudid] 2 mg PO Q4H PRN PRN 7 Days #40 tablet 05/27/19 Pregabalin [Lyrica] 100 mg PO DAILY cap 05/27/19 Pregabalin [Lyrica] 150 mg PO DAILY@1700 cap 05/27/19 proMETHazine tablet [Phenergan tablet] 25 mg PO 4X/DAY PRN PRN #30 tab 05/27/19 The following prescriptions were given: Docusate Sodium [Colace] 100 mg PO BID #60 cap Transmission Status: Pending to [address] HYDROmorphone tablet [Dilaudid] 2 mg PO Q4H PRN PRN 7 Days #40 tablet PRN Reason: Pain Score 6-10/10 Transmission Status: Received by [address] proMETHazine tablet [Phenergan tablet] 25 mg PO 4X/DAY PRN PRN #30 tab PRN Reason: Nausea Transmission Status: Pending to [address] Diazepam [Valium] 5 mg PO 4X/DAY PRN PRN #30 tab PRN Reason: spasm Transmission Status: Received by [address] Doxycycline [Vibramycin] 100 mg PO BID #30 cap Transmission Status: Pending to [address] Primary Care Physician: Butch Parekh [employer] [Primary Care Provider] - Test Results: Test results from this visit will be discussed in further detail at your follow-up appointment, if applicable. Please Follow Up With: Junior Ahn MD When: one week. call [phone] for appt. Proposed Discharge Date: 05/27/19
[2019-05-27 11:25] VITALS: O2SAT 95
--- NOTE | 2019-05-27 11:26 | DS.PCM_ITS ---
Discharge Date and Diagnosis Date of Admission: 05/24/19 Date of Discharge: 05/27/19 - Primary Discharge Diagnosis Right breast cancer. 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 Deformity reconstructed right breast with painful radiation scar contracture and excess mastectomy skin scar contour deformity laterally. Deformity reconstructed left breast with painful excess mastectomy skin scar contour deformity laterally. - Secondary Discharge Diagnosis History of bilateral breast implants reconstruction. 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 CONSULTATIONS None. Operations: - - Surgery 05/24/19 - 1. Revision left breast reconstruction with excision painful excess mastectomy skin scar contour deformity. 2. Revision left breast reconstruction with removal cohesive gel implant and capsulectomy. 3. Revision right breast reconstruction with excision painful excess mastectomy skin scar contour deformity and painful radiation fibrosis. 4. Revision right breast reconstruction with removal cohesive gel implant and capsulectomy. 5. Revision right breast reconstruction radiation scar contour deformity with multiple W-plasty (22.5 cm2). Procedures: None Summary of Care Provided: 49 year old woman presents today with complaints of pain in her bilateral breast reconstruction, worse on the right. She works at [employer] and doesn't do heavy lifting. She thinks she may have twisted her torso while at work which started the painful process. Her last breast reconstruction surgery occurred on 05/08/18 where she underwent underwent delayed right breast reconstruction with removal of saline tissue hardwood floor finisher with replacement cohesive gel implant (605 ml) and revision right breast reconstruction with multiple capsulotomies and revision asymmetric inframammary fold with capsular plication and placement of FlexHD acellular dermal matrix graft inferolateral sling (286 cm2) and delayed left breast reconstruction with removal of saline tissue hardwood floor finisher with replacement cohesive gel implant (545 ml) and revision left breast reconstruction with multiple capsulotomies and revision asymmetric inframammary fold with capsular plication and placement of FlexHD acellular dermal matrix graft inferolateral sling (286 cm2). She has done well after this breast reconstruction surgery until recently when she started having breast pain, worse on the right. She denies any trauma. She denies fever. Even when she wears an bruce wrap for compression, she still has the pain. It was so bad today, she had to leave work to come here for evaluation. She had a recent repair of complex abdominal wall hernia in [facility] in December,. She was taken to surgery on 05/24/19 where she underwent revision left breast reconstruction with excision painful excess mastectomy skin scar contour deformity and revision left breast reconstruction with removal cohesive gel implant and capsulectomy and revision right breast reconstruction with excision painful excess mastectomy skin scar contour deformity and painful radiation fibrosis and revision right breast reconstruction with removal cohesive gel implant and capsulectomy and revision right breast reconstruction radiation scar contour deformity with multiple W-plasty (22.5 cm2). Patient tolerated the procedure well. She was febrile postoperatively. Her Hgb was stable postop with a level of 11.4 at discharge. Drainage ranged from a high of 455 ml to 95 ml at discharge. Bilateral breast incisions are dry and intact. No vascular compromise noted on the breast flaps. No clinical evidence of hematoma. She has incisional pain and needed IV analgesia for an extra day. She was unsteady on her feet with ambulation and needed extra time to become more steady on her feet with ambulation. Prealbumin was 20.5. Encourage nutritional supplementation with protein to help the healing process. Keep head elevated. Continue lifting restriction and bruce wrap chest wall compression. On the third postop day, she was tolerating po analgesia and was more steady on her feet with ambulation. She was discharged home in satisfactory condition. Wrote script for Doxycycline until the drains are removed in the office. Wrote script for Dilaudid for SEVERE pain (40 tabs) and for Valium for spasm (30 tabs). Wrote scripts for Phenergan for nausea (30 tabs) and a refill and for Colace for constipation (60 tabs). Followup office one week. Subjective: Postop #3 Patient is resting comfortably. She is tolerating po analgesia. She is more steady on her feet with ambulation. - Physical Exam Vitals/I&O's: Vital Signs Temp Pulse Resp BP Pulse Ox 98 F 91 18 121/55 H 95 05/27/19 02:20 05/27/19 02:20 05/27/19 02:20 05/27/19 02:20 05/27/19 11:25 Oxygen Flow Rate (L/min) 2 Oxygen Delivery Method Room Air Weight: 186 lb 11.704 oz Body Mass Index (BMI) 35.2 Intake and Output for Last 24 Hours 05/25/19 05/26/19 05/27/19 22:59 23:59 23:59 Intake Total 305.25 / 305.25 Output Total 400 / 400 Balance -94.75 / -94.75 General: Alert, Oriented x3 HEENT: PERRLA, EOMI Oral: Moist Mucosa Neck: Supple Abdomen: Soft, Non-Distended Skin: Incision - bilateral breast incisions are dry and intact. No vascular compromise noted on the breast flaps. No clinical evidence of hematoma. Some tenderness to palpation. Neurological: Cranial nerves II-XII grossly intact Psych/Mental Status: Normal Affect, Appropriate Laboratory Results 05/27/19 05:45: WBC 5.6, RBC 3.91 L, Hgb 11.4 L, Hct 33.5 L, MCV 85.7, MCH 29.2, MCHC 34.0, RDW Std Deviation 39.3, RDW Coeff of Adrian 12.7, Plt Count 148 L, MPV 9.7 05/27/19 05:45: Sodium 140, Potassium 3.6, Chloride 108 H, Carbon Dioxide 27.0, Anion Gap 5, BUN 11, Creatinine 0.79, Estim Creat Clear Calc 64.29, Est GFR (MDRD) Af Amer 99, Est GFR (MDRD) Non-Af 82, BUN/Creatinine Ratio 14.0, Glucose 96, Calcium 8.7 Current Medications Acetaminophen (Tylenol) 1,000 mg PO Q6 [facility] Last Admin: 05/27/19 04:42 Dose: 1,000 mg Documented by: Atorvastatin Calcium (Lipitor) 20 mg PO QHS [facility] Last Admin: 05/26/19 21:34 Dose: 20 mg Documented by: Diazepam (Valium) 5 mg PO Q6H PRN PRN Reason: spasm Last Admin: 05/27/19 09:32 Dose: 5 mg Documented by: Docusate Sodium (Colace) 100 mg PO BID [facility] Last Admin: 05/27/19 09:32 Dose: 100 mg Documented by: Enoxaparin Sodium (Lovenox) 40 mg SC DAILY [facility] Last Admin: 05/27/19 09:33 Dose: 40 mg Documented by: Enteral Nutritional Formula (Ensure Surgery) 237 ml PO TIDCM [facility] Last Admin: 05/27/19 07:50 Dose: Not Given Documented by: Hydromorphone HCl (Dilaudid Inj) 0.5 - 1 mg IV Q3H PRN PRN PRN Reason: Pain Score 6-1010 Last Admin: 05/27/19 06:11 Dose: 1 mg Documented by: Hydromorphone HCl (Dilaudid Inj) 0.5 - 1 mg IV Q3H PRN PRN PRN Reason: Pain Score 6-1010 Last Admin: 05/26/19 12:40 Dose: 0.5 mg Documented by: Levofloxacin (Levaquin Iv) 500 mg in 100 mls @ 100 mls/hr IV Q24 [facility] Last Infusion: 05/27/19 10:33 Dose: Infused Documented by: Vancomycin IV Pharmacy to Dose (1 ea/ Sodium Chloride) 500 mls @ 250 mls/hr IV X1 PRN; Protocol PRN Reason: Rx to Dose Sodium Chloride () 250 mls @ 15 mls/hr IV .[id number] PRN PRN Reason: Saline Flush Last Infusion: 05/27/19 10:54 Dose: 0 mls/hr Documented by: Sodium Chloride () 250 mls @ 15 mls/hr IV .[id number] PRN PRN Reason: Additional IVPB Infusion Vancomycin HCl 750 mg/ Sodium (Chloride) 265 mls @ 250 mls/hr IV Q12H [facility] Last Admin: 05/27/19 10:54 Dose: 250 mls/hr Documented by: Insulin Human Lispro (Humalog Kwkendrapen (Bkc)) 1 - 6 unit SC Q4H PRN PRN; Protocol PRN Reason: BG>/= 180, SEE PROTOCOL Loperamide HCl (Imodium) 2 mg PO Q4H PRN PRN Reason: loose stool Lorazepam (Ativan) 0.5 mg PO QHS PRN PRN Reason: anxiety Last Admin: 05/24/19 22:12 Dose: 0.5 mg Documented by: Magnesium Oxide (Mag-Ox 400) 400 mg PO BID PRN PRN PRN Reason: Constipation Ondansetron HCl (Zofran Odt) 4 mg PO Q6H PRN PRN PRN Reason: NAUSEA Oxycodone HCl (Oxyir) 5 - 10 mg PO Q4H PRN PRN PRN Reason: Pain Score 4-10/10 Last Admin: 05/27/19 07:49 Dose: 10 mg Documented by: Pregabalin (Lyrica) 100 mg PO DAILY [facility] Last Admin: 05/27/19 09:36 Dose: 100 mg Documented by: Pregabalin (Lyrica) 150 mg PO DAILY@1700 [facility] Last Admin: 05/26/19 17:38 Dose: 150 mg Documented by: Sertraline HCl (Zoloft) 200 mg PO DAILY [facility] Last Admin: 05/27/19 09:33 Dose: 200 mg Documented by: Sodium Chloride () 10 - 40 ml IV UD PRN PRN Reason: SALINE FLUSH Last Admin: 05/27/19 09:38 Dose: 10 ml Documented by: Trazodone HCl (Desyrel) 50 mg PO QHS PRN PRN Reason: SLEEP Discharge Diet: No Restrictions, - - encourage nutritional supplementation with protein to help the healing process. Discharge Activity: - - keep head elevated. no heavy lifting. Return to work on:: 06/24/19 - tentative May shower in (days): 14 - after the drains are removed. May resume sexual activity in: 10-14 days Weight Bearing Status: Weight bearing as tolerated Lifting Restrict to (lbs):: 20 Keep extremity elevated above heart level: - - elevate head. Call your doctor if your incision/area has: Continuous Slow Oozing, Sudden Increased Bleeding, Increased Pain/ Swelling, Increased Redness, Foul Smelling Discharge, Swelling at the incision site Call your doctor if you observe: Fever of 101 or Higher, Coldness, Increased Pain, Shortness of breath, Calf discomfort, Uncontrolled pain Suture Line Care: - - dry dressings every other day. Change Dressing in (Days):: 2 - dry dressings every other day followed by compression bruce wrap. Cleanse incision/area with: - - may get incisions wet in the shower after the drains are removed. Drain: Suction - amrit drain x3 to bulb suction. empty and record output daily. Home Medications: Medications to take at Discharge sertraline 100 mg tablet 200 mg PO DAILY #180 tab 10/30/18 atorvastatin 20 mg tablet 20 mg PO QHS #90 tab 11/28/18 loperamide 2 mg capsule 2 mg PO Q1-4H PRN #30 cap 12/11/18 lorazepam 0.5 mg tablet 0.5 mg PO QHS PRN #30 tab 05/16/19 Pregabalin 100 mg PO DAILY 05/22/19 Pregabalin [Lyrica] 150 mg PO DAILY@1700 05/22/19 Trazodone HCl 50 mg PO QHS 05/22/19 Diazepam [Valium] 5 mg PO 4X/DAY PRN PRN #30 tab 05/27/19 Docusate Sodium [Colace] 100 mg PO BID #60 cap 05/27/19 Doxycycline [Vibramycin] 100 mg PO BID #30 cap 05/27/19 HYDROmorphone tablet [Dilaudid] 2 mg PO Q4H PRN PRN 7 Days #40 tab 05/27/19 Pregabalin [Lyrica] 100 mg PO DAILY cap 05/27/19 Pregabalin [Lyrica] 150 mg PO DAILY@1700 cap 05/27/19 proMETHazine tablet [Phenergan tablet] 25 mg PO 4X/DAY PRN PRN #30 tab 05/27/19 Following Prescrptions Were Given to Patient: Docusate Sodium [Colace] 100 mg PO BID #60 cap Transmission Status: Received by [address] HYDROmorphone tablet [Dilaudid] 2 mg PO Q4H PRN PRN 7 Days #40 tab PRN Reason: Pain Score 6-10/10 Transmission Status: Received by [address] proMETHazine tablet [Phenergan tablet] 25 mg PO 4X/DAY PRN PRN #30 tab PRN Reason: Nausea Transmission Status: Received by [address] Diazepam [Valium] 5 mg PO 4X/DAY PRN PRN #30 tab PRN Reason: spasm Transmission Status: Received by [address] Doxycycline [Vibramycin] 100 mg PO BID #30 cap Transmission Status: Received by [address] Primary Care Physician: Butch Parekh NP-C [Primary Care Provider] - Please Follow Up With: Junior Ahn MD When: one week. call [phone] for appt. Disposition: Home Minutes spent on discharge:: 35 Patient Condition:: Good Medical Necessity - Tobacco Use Smoking Status: Former smoker Tobacco Use: Non-smoker Meaningful Use Info Meaningful Use Diagnoses (Choose all that apply): None applicable
[2019-05-27 12:30] VITALS: BP 140/76; PULSE 102; RESP 16; TEMP 36.6; O2SAT 100
== END 2019-05-27 12:48 | disposition home or self-care (01) ==
LOC: SDC 16:36 → MS3 16:36
PROVIDERS: Anesthesiology; Admitting Provider Surgery; PCP Nurse Practitioner Family; Referring Provider Surgery; Visit Provider Surgery
PROC: (CPT 19371; principal; 2019-05-24 11:45)
DX: C50.911 Malignant neoplasm of unspecified site of right female breast (principal); L59.8 Other specified disorders of the skin and subcutaneous tissue related to radiation; Y84.2 Radiological procedure and radiotherapy as the cause of abnormal reaction of the patient, or of later complication, without mention of misadventure at the time of the procedure; F45.29 Other hypochondriacal disorders; L90.5 Scar conditions and fibrosis of skin; N65.0 Deformity of reconstructed breast; Z87.891 Personal history of nicotine dependence; F41.8 Other specified anxiety disorders; N65.1 Disproportion of reconstructed breast; G62.9 Polyneuropathy, unspecified; Z17.1 Estrogen receptor negative status [ER-]
CPT/HCPCS: 00402; 14001; 19371; 19380; 36415; 80048; 80202; 82962; 83735; 84134; 85027; 88300; 88305; 93005; 96365; 96366; 96367; 96372; 96375; 96376; 99218; 99251; J7050; J7120; A4216; G0378; G0379; G0463; Q9968

== ENCOUNTER → 2019-08-07 14:29 | Outpatient (CLI) | payer MEDICAID, SELFPAY ==
[2019-07-31 13:11] VITALS: BMI 35.2
[2019-08-07 15:23] LABS: Vitamin B12 352 pg/mL (211-911)
== END ==
PROVIDERS: PCP Internal Medicine; Referring Provider Nurse Practitioner Family; Visit Provider Nurse Practitioner Family
DX: G62.9 Polyneuropathy, unspecified (principal)
CPT/HCPCS: 82607

== ENCOUNTER → 2019-08-30 15:23 | Outpatient (CLI) | payer MEDICAID, SELFPAY ==
[2019-08-29 16:03] VITALS: BMI 35.2
--- NOTE | 2019-08-30 15:27 | RAD_ITS ---
STUDY: X-RAY - LUMBAR SPINE REASON FOR EXAM: Female, 49 years old. low back pain TECHNIQUE: 2 view(s) of the lumbar spine were obtained. COMPARISON: None FINDINGS: Normal lumbar lordosis. There is no substantial scoliosis. There is a normal alignment of the vertebrae. Normal vertebral bodies and endplates. Normal disc space heights. The soft tissue structures are unremarkable. RAD/Lumbar Spine 2 or 3 Views IMPRESSION: Normal x-ray examination of the lumbar spine. Electronically Signed: Santi Sevilla MD at 5:45 EDT , Service support ,
--- NOTE | 2019-08-30 15:27 | RAD_ITS ---
STUDY: X-RAY - THORACIC SPINE REASON FOR EXAM: Female, 49 years old. upper back pain TECHNIQUE: History view(s) of the thoracic spine were obtained. COMPARISON: None. FINDINGS: Normal kyphosis of the thoracic spine. There is no substantial scoliosis. Normal thoracic vertebrae and endplates. Normal disc space heights. The soft tissue structures are unremarkable. RAD/Thoracic Spine 3 Views IMPRESSION: Normal x-ray examination of the thoracic spine. Electronically Signed: Santi Sevilla MD at 7:43 EDT , Service support ,
== END ==
PROVIDERS: PCP Internal Medicine; Referring Provider Anesthesiology Pain Medicine; Visit Provider Anesthesiology Pain Medicine
DX: M54.9 Dorsalgia, unspecified (principal)
CPT/HCPCS: 72072; 72100

== ENCOUNTER → 2019-10-09 12:47 | Outpatient (CLI) | payer MEDICAID, SELFPAY ==
[2019-08-29 16:03] VITALS: BMI 35.2
[2019-10-09 13:42] LABS: Amphetamine Urine VISTA NEGATIVE (<1000 ng/mL); Barbiturate Urine VISTA NEGATIVE (< 200 ng/mL); Benzodiazepine Urine VISTA NEGATIVE (< 200 ng/mL); Cocaine Urine VISTA NEGATIVE (< 300 ng/mL); Ecstacy Urine VISTA NEGATIVE (< 500 ng/mL); Methadone Urine VISTA NEGATIVE (< 300 ng/mL); PCP Urine VISTA NEGATIVE (< 25 ng/mL); THC Urine VISTA NEGATIVE (< 50 ng/mL); Vista UDS pH Range 6
== END ==
PROVIDERS: PCP Internal Medicine; Referring Provider Anesthesiology Pain Medicine; Visit Provider Anesthesiology Pain Medicine
DX: F11.20 Opioid dependence, uncomplicated (principal)
CPT/HCPCS: 80307

== ENCOUNTER 2019-11-13 15:30 | Outpatient (RCR) | payer MEDICAID, SELFPAY ==
[2019-08-29 16:03] VITALS: BMI 35.2
--- NOTE | 2019-11-07 09:20 | HP.PTEVAL_ITS ---
Patient's Visit Information SHARON BARRAGAN is a 49 year old F referred to Physical Therapy by Dr. Chloe Blanco MD with a diagnosis of BACK AND LEG PAIN. Date of Evaluation: 11/07/19 Physical Therapist: Sri Webber PT, Cert MDT - Visit Plan Frequency: 2-3x /Week Duration: 4-6 Weeks Plan: AQUATIC THERAPY FOR PAIN RELEIF, POSTURE CORRECTION/STRENGTHENING, INSTRUCTION IN APPROPRIATE BODY MECHANICS AND ACTIVITY MODIFICATIONS. DLS STARTING WITH A NEUTRAL SPINE PROGRESSING ROM TOLERATED. ROSALIND LE ROM, STRETCHING AND STRENGTHENING. HEP INSTRUCTION. - Subjective Work/Leisure: UNEMPLOYEED. Disability: YES - LOW BACK PAIN, FOOT PAIN, NEUR OPATHY, LYMPHADEMA, DEPRESSION/ANXIETY. Present symptoms: LOW BACK PAIN AND ROSALIND LE PAIN TO THE FEET. NUMBNESS AND TINGLING IN FEET, TOES AND HANDS. Present since: ABOUT 10 YEARS AGO. Pain Scale: WORST 8/10, LEAST 3/10. Currently: 5/10. Commenced as a result of: FELL OFF A SHOVEL AND LANDED ON A BOULDER. Symptoms at onset: BACK. Worse: STANDING, SITTING, WALKING, BENDING, LIFTING, TWISING, IN/OUT OF CAR, IN/OUT OF BED, STEPS. Better: HEATING PAD, PAIN PILLS, RECLINER, R SDLY. Disturbed sleep: YES. Previous history/Previous treatment: NO LOW BACK SURGERY. HAS HAD ABOUT 5 TRUDY'S AND THEY HELP SOMETIMES. THINKS SHE MIGHT HAVE HAD LOW BACK PT IN THE PAST BUT ISN'T SURE. STATES SHE TRIED A CHIROPRACTOR A LONG TIME AGO AND IT MADE IT WORSE. NEXT TRUDY PENDING NOV 2019. Coughing/sneezing/straining: POSTITVE. Gait: PATIENT REPORTS SHE FEELS AND ACHE IN HER BACK WHEN SHE WALKS AND IT HELPS TO WALK SLOWER. Difficulty initiating urinatin: NO. Accidents: FALL ONTO BOULDER. Unexplained weight loss: NO. Imaging: PATIENT REPORTS RECENT IMAGING SHOWING DDD AND ARTHRITIS. RAD/Lumbar Spine 2 or 3 Views. IMPRESSION: Normal x-ray examination of the lumbar spine. . Electronically Signed: Santi Sevilla MD. at 5:45 EDT. PMH: SEE DISABILITY ABOVE. THYROID CA DX'S 15 YEARS AGO - THYROIDECTOMY. BREAT CANCER DX 2016 - TREATED WITH CHEMO, RADIATION AND ROSALIND MASTECTOMY. REPORTS SHE HAS HAD ABOUT 12 SURGERIES IN THE LAST 3 YEARS MAINLY RELATED TO BREAST RECONSTRUCTION FAILURE. OTHER: PATIENT REPORTS SHE HAS GAINED ABOUT 65 LBS IN THE LAST FEW YEARS. PATIENT REPROTS SHE IS TIED OF HURTING AND REQUESTED THIS THERAPY. - Objective Sitting/Standing Posture: POOR. FH. RS. DO. Active Correction of posture: INCREASES LBP. Other Observations: INDEP GAIT INTO PT WITHOUT ANY ASSISTIVE DEVICES. Motor deficit: ROSALIND LE STRENGTH GROSSLY: HIPS 4-/5, KNEES 4/5 AND ANKLES. Sensory deficit: ROSALIND LE LIGHT TOUCH SENSATION APPEARS INTACT AND SYMMETRIAL WITH TESTING TODAY (FEET NT). ROM deficit: TIGHT ROSALIND LE HS'S AND GASTROC SOLEUS COMPLEX'S. Reflexes: 2/3 ROSALIND LE'S. Dural Signs: POSITIVE ROSALIND LE'S. Lumbar mvmt loss: flex - MOD. ext - VENKATA. R SG - MOD. L SG - MOD. PATIENT C/O INCREASED LOW BACK PAIN WITH LUMBAR ROM TESTING ALL PLANES. HER MVMTS ARE SLOW AND GUARDED. SHE REPOTS ROSALIND FOOT SYMPTOMS IN STANDING BEFORE ROM TESTING EVEN STARTED. BACK EXTENSION IS ESPECIALLY PAINFUL. Core strength: POOR. OTHER: PATIENT IS ABLE TO HEEL WALK AND TOE WALK BUT BOTH ARE PAINFUL ESPECIALLY THE RIGHT HEEL WITH HEEL WALKING. ONLY HAD PATIENT TAKE A FEW STEPS. Palpation: TENDERNESS WITH PALPATION OF ROSALIND LUMBAR PARASPINALS RIGHT > LEFT. TREATMENT: NEUROMUSCULAR REEDUCATION - RETRAINING OF MVMT AND POSTURE FOR SITTING, LYING AND STANDING ACTIVITIES. - Goals Goal 1:: DECREASE C/O BACK AND LEG PAIN Goal Time Frame: 4-6 Weeks Goal 2:: IMPROVE PERSONAL CARE, LIFTING, WALKING, SITTING, STANDING, SLEEP, SOCIAL LIFE, TRAVEL AND HOMEMAKING [employer] Goal Time Frame: 4-6 Weeks Goal 3:: INSTRUCT IN PROPHYLAXIS Goal Time Frame: 4-6 Weeks - Anticipated Interventions Patient/Client Instruction: Educate patient on: Condition, Plan of Care, Risk Factors, Benefits of Fitness Program For the Purpose of:: To improve self management Therapeutic Exercise to Include: Strength training, Body mechanics, Postural training, Neuromotor development, In an aquatic setting, Dynamic Lumbar Stabilization For the Purpose of:: To decrease pain, To increase ROM, To improve muscle performance and motor function, To increase tolerance to activity/condition/position, To improve ability of physical actions for home/community/work/leisure Thank you for the opportunity to evaluate your patient. For Medicare and Medicare HMO plans, please review the plan of care and approve it. It will need to be FAXED BACK to us at [phone] for Medicare purposes. For Medicare only, by signing this I certify the plan of care. Please let me know if there are questions or concerns regarding this plan of care. Physician Signature: Date:
--- NOTE | 2020-01-20 18:02 | HP.PT.NRP ---
SHARON BARRAGAN was seen in my office for initial evaluation on 11/07/19. The following Plan of Care was established for this patient: Initial Frequency: 2-3x /Week Initial Duration: 4-6 Weeks Patient/Client Instruction: Educate patient on: Condition, Plan of Care, Risk Factors, Benefits of Fitness Program For the Purpose of:: To improve self management Therapeutic Exercise to Include: Strength training, Body mechanics, Postural training, Neuromotor development, In an aquatic setting, Dynamic Lumbar Stabilization For the Purpose of:: To decrease pain, To increase ROM, To improve muscle performance and motor function, To increase tolerance to activity/condition/position, To improve ability of physical actions for home/community/work/leisure This patient was last seen in our office 11/13/19. Pertinent comments regarding their Physical therapy will appear below: This patient has not returned to Physical Therapy and is appropriate to return to MD for further follow-up as needed. At this point I will be discontinuing this patient from physical therapy. I would be happy to see this patient again in the future if found appropriate by the physician. Thank you! Sri Webber, PT, Cert MDT
== END 2019-11-13 19:00 | disposition home or self-care (01) ==
LOC: PT 15:30
PROVIDERS: PCP Internal Medicine; Referring Provider Anesthesiology Pain Medicine; Visit Provider Anesthesiology Pain Medicine
DX: M54.9 Dorsalgia, unspecified (principal); M79.606 Pain in leg, unspecified
CPT/HCPCS: 97112; 97113; 97162

== ENCOUNTER → 2019-12-04 12:34 | Outpatient (CLI) | payer MEDICAID, SELFPAY ==
[2019-08-29 16:03] VITALS: BMI 35.2
[2019-12-04 14:13] LABS: Amphetamine Urine VISTA NEGATIVE (<1000 ng/mL); Barbiturate Urine VISTA NEGATIVE (< 200 ng/mL); Benzodiazepine Urine VISTA NEGATIVE (< 200 ng/mL); Cocaine Urine VISTA NEGATIVE (< 300 ng/mL); Ecstacy Urine VISTA NEGATIVE (< 500 ng/mL); Methadone Urine VISTA NEGATIVE (< 300 ng/mL); PCP Urine VISTA NEGATIVE (< 25 ng/mL); THC Urine VISTA NEGATIVE (< 50 ng/mL); Vista UDS pH Range 5
== END ==
PROVIDERS: PCP Internal Medicine; Referring Provider Anesthesiology Pain Medicine; Visit Provider Anesthesiology Pain Medicine
DX: F11.20 Opioid dependence, uncomplicated (principal)
CPT/HCPCS: 80307

== ENCOUNTER 2019-12-16 07:23 | Emergency (ER) | payer MEDICAID, SELFPAY ==
[2019-08-29 16:03] VITALS: BMI 35.2
[2019-12-16 07:24] VITALS: BP 146/76; PULSE 77; RESP 16; TEMP 35.9; O2SAT 97; BMI 36.3
--- NOTE | 2019-12-16 09:00 | ED.RN ---
PHYSICIAN AT BEDSIDE TO EVALUATE PATIENT.
--- NOTE | 2019-12-16 09:08 | ED.VIS.GEN ---
History of Present Illness Chief Complaint: Flank Pain Informant: Patient Narrative: Patient states that she believes she is either having a gallbladder attack or a kidney stone. States for the past couple days she is intermittently had pain in the right upper quadrant of her abdomen rating into the back. She states her urine is cloudy. No fevers. She notes nausea but no vomiting or diarrhea. Tells me that in March she had a CT scan and a gallbladder ultrasound that showed a gallbladder polyp and a kidney stone. She states that she has had a lot going on so she has not been able to follow-up on that. Tells me she has [place] at home and has not been helping. She states that she would like to go home today and does not want any pain medication that could revent her from driving - Past Medical History (1) Breast cancer in female Status: Chronic Comment: RIGHT BREAST (2) Hyperlipidemia Status: Chronic (3) Neuropathy Status: Chronic (4) Thyroid disease Status: Chronic Past Medical History - Allergies and Home Meds Allergies/Adverse Reactions: Allergies cat dander Allergy (Severe, Verified 12/16/19 07:24) Lips & throat swole FIBERGLASS Allergy (Severe, Uncoded 12/16/19 07:24) SEVERE ITCHING AND RASH POULTRY Allergy (Uncoded 12/16/19 07:24) Anaphylaxis Primary Care Physician: Cici Martinez MD [Primary Care Provider] - Keep [facility] appointment Prior records reviewed: Yes Surgical History: hysterectomy, - - Single oophorectomy Smoking Status: Former smoker Drugs: None - Family History Maternal Family History: Family History (Last Reviewed 08/02/19 @ 20:[address] Junior Ahn MD) Unknown No problems noted. Mother Anemia Anxiety Arthritis Breast cancer Depression Osteoporosis Father Anxiety Depression Mental disorder Parkinson disease Respiratory complication Family History: Reports: Diabetes, Heart Disease Paternal Family History: Family History (Last Reviewed 08/02/19 @ 20:[address] Junior Ahn MD) Unknown No problems noted. Mother Anemia Anxiety Arthritis Breast cancer Depression Osteoporosis Father Anxiety Depression Mental disorder Parkinson disease Respiratory complication Family History: Reports: No pertinent history Review of Systems General: Denies: Chills, Fever, Sweats Eyes: Denies: Visual changes - bilaterally, Diplopia ENT: Denies: Rhinorrhea, Sore throat Cardiovascular: Denies: Chest pain, Palpitations Respiratory: Denies: Dyspnea, Cough, Dyspnea on exertion Gastrointestinal: Reports: Abdominal pain, Nausea. Denies: Vomiting, Diarrhea, Melena, Hematochezia Genitourinary: Denies: Dysuria, Hematuria, Frequency Musculoskeletal: Denies: Back pain, Extremity Pain Skin: Denies: Rash, Wounds Neurological: Denies: Headache, Weakness, Numbness Physical Exam Vital Signs/Narrative: Vital Signs Temp Pulse Resp BP Pulse Ox 12/16/19 07:24 96.7 F L 77 16 146/76 H 97 Inital Vital Signs reviewed: Yes General: Well nourished, Well developed, No Acute Distress Head: Normocephalic, Atraumatic Eyes: Perrl, EOMI ENT: Moist mucous membranes, No rhinorrhea Neck: Supple, Nontender Cardiovascular: Regular rate, Regular rhythm, No murmurs Respiratory: No distress, CTA bilaterally, Chest nontender Abdomen: Soft, Nondistended, Normal bowel sounds, Tender - Tender palpation right upper quadrant. The patient is noted to be continuously palpating the area where it hurts.. Negative for: Guarding, Rebound tenderness Back: Nontender, Normal Inspection Extremities: Nontender, No edema Skin: Normal color, No rash Neurological: Alert, Oriented x3, Cranial nerves II-XII grossly intact, Normal Strength, Normal Sensation Psychological: Normal affect, Normal Mood Diagnostic/Tx/Re-eval Laboratory Last Values WBC 4.1 K/mm3 (4.4-11.0) L 12/16/19 07:45 RBC 4.59 M/mm3 (4.2-5.4) 12/16/19 07:45 Hgb 14.0 g/dL (12.0-15.0) 12/16/19 07:45 Hct 40.8 % (37-47) 12/16/19 07:45 MCV 88.9 fL (81-99) 12/16/19 07:45 MCH 30.5 pg (27.0-32.0) 12/16/19 07:45 MCHC 34.3 g/dL (32-36) 12/16/19 07:45 RDW Std Deviation 40.3 fl (35.1-43.9) 12/16/19 07:45 RDW Coeff of Adrian 12.5 % (11.6-14.6) 12/16/19 07:45 Plt Count 163 K/mm3 (150-450) 12/16/19 07:45 MPV 9.9 fl (6.2-12.0) 12/16/19 07:45 Immature Gran % (Auto) 0.200 % (0.0-0.9) 12/16/19 07:45 Neut % (Auto) 69.5 % (47-70) 12/16/19 07:45 Lymph % (Auto) 21.5 % (19-41) 12/16/19 07:45 Mellette % (Auto) 7.3 % (0-10) 12/16/19 07:45 Eos % (Auto) 1.0 % (0-5) 12/16/19 07:45 Baso % (Auto) 0.5 % (0-1) 12/16/19 07:45 Absolute Neuts (auto) 2.9 X10^3/uL (2.0-7.7) 12/16/19 07:45 Absolute Lymphs (auto) 0.89 X10^3/uL (0.83-4.51) 12/16/19 07:45 Nucleated RBC % 0 % (0-5) 12/16/19 07:45 Sodium 140 mmol/L (136-145) 12/16/19 07:45 Potassium 4.0 mmol/L (3.5-5.1) 12/16/19 07:45 Chloride 111 mmol/L (98-107) H 12/16/19 07:45 Carbon Dioxide 25.0 mmol/L (21.0-32.0) 12/16/19 07:45 Anion Gap 4 (5-15) L 12/16/19 07:45 BUN 16 mg/dL (7-18) 12/16/19 07:45 Creatinine 0.82 mg/dL (0.55-1.02) 12/16/19 07:45 Estim Creat Clear Calc 61.94 ml/min 12/16/19 07:45 Est GFR (MDRD) Af Amer 95 mL/min (>60) 12/16/19 07:45 Est GFR (MDRD) Non-Af 79 mL/min (>60) 12/16/19 07:45 BUN/Creatinine Ratio 19.6 RATIO (10-20) 12/16/19 07:45 Glucose 94 mg/dL (74-106) 12/16/19 07:45 Calcium 9.1 mg/dL (8.5-10.1) 12/16/19 07:45 Total Bilirubin 0.60 mg/dL (0.20-1.00) 12/16/19 07:45 AST 15 U/L (15-37) 12/16/19 07:45 ALT 25 U/L (13-56) 12/16/19 07:45 Alkaline Phosphatase 132 U/L (45-117) H 12/16/19 07:45 Total Protein 7.5 g/dL (6.4-8.2) 12/16/19 07:45 Albumin 3.9 g/dL (3.2-5.0) 12/16/19 07:45 Globulin 3.6 g/dL (2.2-4.2) 12/16/19 07:45 Albumin/Globulin Ratio 1.1 RATIO (0.9-2.4) 12/16/19 07:45 Lipase 79 U/L (73-393) 12/16/19 07:45 Urine Color Yellow (Yellow) 12/16/19 07:45 Urine Clarity Sl. Cloudy (Clear) 12/16/19 07:45 Urine pH 5.0 (5.0 - 8.0) 12/16/19 07:45 Ur Specific [place] 1.015 (1.002-1.030) 12/16/19 07:45 Urine Protein Negative mg/dl (Negative) 12/16/19 07:45 Urine Glucose (UA) Normal mg/dl (Normal) 12/16/19 07:45 Urine Ketones Negative mg/dl (Negative) 12/16/19 07:45 Urine Occult Blood Negative /ul (Negative) 12/16/19 07:45 Urine Nitrite Negative (Negative) 12/16/19 07:45 Urine Bilirubin Negative mg/dL (Negative) 12/16/19 07:45 Urine Urobilinogen Normal mg/dl (Normal) 12/16/19 07:45 Ur Leukocyte Esterase Negative /ul (Negative) 12/16/19 07:45 Urine RBC 0 SEEN /hpf (0-5) 12/16/19 07:45 Urine WBC 0 SEEN /hpf (0-5) 12/16/19 07:45 Ur Squamous Epith Cells 0-5 SEEN /hpf (5-10) 12/16/19 07:45 Urine Bacteria 0 SEEN /hpf (None Seen) 12/16/19 07:45 Urine Mucus 0 SEEN /hpf (<or=2+) 12/16/19 07:45 Clinical Impression(s) from Imaging Studies Abdomen/Pelvis CT 12/16/19 09:38 IMPRESSION: Mild degree of splenomegaly. Electronically Signed: Jin Kingston, at 10:23 EDT , Service support , - Medical Decision Making Patient received Toradol Zofran and IV fluids. Her CT is negative. Basic blood work is negative. She states the pain comes and goes could be colonic. She does take [place] but has not felt constipated. She states that she can push in in the right upper quadrant and feel the area that is hurting. X-ray as well may be to try bottle of magnesium citrate and see if that changes anything. Patient was given return instructions notes understanding ED Disposition - Plan for ED Patient: Disposition: Home or Assisted Living Diagnosis: Acute abdominal pain in right upper quadrant Instructions: ED Abdominal Pain Unkn Cause Fem Prescriptions: Magnesium Citrate [Citrate Of Magnesia] 300 ml PO X1 #300 ml Prescription Printed Referrals: Cici Martinez MD [Primary Care Provider] - Keep [facility] appointment
[2019-12-16 09:11] LABS: Bacteria 0 SEEN /hpf (None Seen); Mucous, Urine 0 SEEN /hpf (<or=2+); Red Blood Cells-Urine 0 SEEN /hpf (0-5); White Blood Cells 0 SEEN /hpf (0-5)
[2019-12-16] MEDS: Ketorolac 30 MG/ML Syringe IV (09:12)
[2019-12-16] MEDS: Ondansetron 4 MG/2 ML Vial IV (09:12)
[2019-12-16 09:13] LABS: Absolute Lymphocyte Count 0.89 X10^3/uL (0.83-4.51); Absolute Neutrophil Count 2.9 X10^3/uL (2.0-7.7); Basophil# 0.02 X10^3/uL; Basophil% 0.5 % (0-1); Color, Urine Yellow (Yellow); Eosinophil# 0.04 X10^3/uL; Glucose, Dipstick Normal (Normal); Hematocrit 40.8 % (37-47); Ketone-Dipstick Negative (Negative); Leukocyte Esterase-Dipstick Negative /ul (Negative); Lymphocyte # 0.89 X10^3/ul (4.0); Lymphocyte % 21.5 % (19-41); Mean Corp Hgb Conc 34.3 g/dL (32-36); Mean Corpuscular Hgb 30.5 pg (27.0-32.0); Mean Corpuscular Volume 88.9 fL (81-99); Mean Platelet Vol. 9.9 fl (6.2-12.0); Monocyte% 7.3 % (0-10); NRBC Flagged by Analyzer 0 % (0-5); Neutrophil # 2.87 X10^3/uL (2.7-7.7); Neutrophil % 69.5 % (47-70); Nitrite-Dipstick Negative (Negative); Occult Blood-Urine Negative /ul (Negative); Platelet Count 163 K/mm3 (150-450); Protein-Dipstick Negative (Negative); RBC Distribution Width CV 12.5 % (11.6-14.6); RBC Distribution Width SD 40.3 fl (35.1-43.9); Red Blood Count 4.59 M/mm3 (4.2-5.4); Specific Gravity, Urine 1.015 (1.002-1.030); Urine Bilirubin Dipstick Negative (Negative); Urine Clarity Sl. Cloudy (Clear); Urine Urobilinogen Normal (Normal); White Blood Count 4.1 K/mm3 (4.4-11.0)
[2019-12-16 09:19] LABS: Squamous Epithelial Cells - UA 0-5 SEEN /hpf (5-10)
[2019-12-16 09:24] LABS: ALB/GLOB Ratio 1.1 RATIO (0.9-2.4); AST(SGOT) 15 U/L (15-37); Alanine Aminotransfer ALT/SGPT 25 U/L (13-56); Albumin, Serum 3.9 g/dL (3.2-5.0); Alkaline Phosphatase 132 U/L (45-117); Anion Gap 4 (5-15); BUN 16 mg/dL (7-18); BUN/Creat Ratio 19.6 RATIO (10-20); Calcium,Total 9.1 mg/dL (8.5-10.1); Chloride 111 mmol/L (98-107); Creatinine, Serum 0.82 mg/dL (0.55-1.02); EST Glomerular Filtration Rate 79 mL/min (>60); Est Glom Filt Rate - Afr Amer 95 mL/min (>60); Estimated Creatinine Clearance 61.94 ml/min; Globulin 3.6 g/dL (2.2-4.2); Glucose 94 mg/dL (74-106); Lipase 79 U/L (73-393); Protein, Total 7.5 g/dL (6.4-8.2); Sodium Level 140 mmol/L (136-145)
--- NOTE | 2019-12-16 09:38 | CT_ITS ---
STUDY: CT ABDOMEN AND PELVIS WITH CONTRAST REASON FOR EXAM: Female, 49 years old. RIGHT FLANK PAIN. HX OF KIDNEY STONES AND GALLBLADDER ISSUES. HX OF BREAST CANCER RADIATION DOSAGE (If Supplied By Facility): CTDIvol = ( 14.88 ) mGy, DLP = ( 1033.16 ) mGycm TECHNIQUE: Transaxial images were obtained from the dome of the diaphragm to the symphysis pubis without oral contrast. IV contrast was administered. Sagittal and coronal images were reconstructed. Individualized dose optimization techniques were used for this CT. COMPARISON: Comparison is made with prior study dated 03/29/2019. FINDINGS: The visualized lung bases are unremarkable. The visualized portions of the heart are within normal limits. Normal liver. Normal gallbladder and extrahepatic biliary system. There is mild splenomegaly. Normal pancreas. Normal bilateral adrenal glands. Normal right kidney. Normal left kidney. Normal visualized stomach. Normal small intestine. Normal colon. The appendix is visualized and appears normal. There is scattered atherosclerotic calcification of the abdominal aorta, without a demonstrated aneurysm. Normal inferior vena cava. Normal retroperitoneum. Normal urinary bladder. There is absence of the uterus consistent with a prior hysterectomy. There is evidence of prior anterior abdominal wall hernia repair utilizing a mesh. Normal osseous structures. CT/Abdomen/Pelvis W IV Cont ONLY IMPRESSION: Mild degree of splenomegaly. Electronically Signed: Jin Kingston, at 10:23 EDT , Service support ,
[2019-12-16 10:56] VITALS: PULSE 73; RESP 16; O2SAT 99
--- NOTE | 2019-12-16 10:59 | ED.RN ---
IV DC'ED, CATHETER INTACT, SMALL GAUZE DRESSING PLACED. DISCHARGE INSTRUCTIONS GIVEN TO AND REVIEWED WITH PATIENT, PATIENT DENIES QUESTIONS OR CONCERNS AND VOICES UNDERSTANDING OF DISCHARGE INSTRUCTIONS. PT AMBULATES OUT OF ROOM WITHOUT DIFFICULTY.
== END 2019-12-16 11:00 | disposition home or self-care (01) ==
PROVIDERS: Emergency Provider Emergency Medicine; PCP Internal Medicine
DX: R10.11 Right upper quadrant pain (principal); R11.0 Nausea; E07.9 Disorder of thyroid, unspecified; E78.5 Hyperlipidemia, unspecified; G62.9 Polyneuropathy, unspecified; Z79.899 Other long term (current) drug therapy; Z87.442 Personal history of urinary calculi; Z85.3 Personal history of malignant neoplasm of breast; Z87.891 Personal history of nicotine dependence
CPT/HCPCS: 74177; 80053; 81001; 83690; 85025; 96374; 96375; 99284; Q9967; A4216; J2405

== ENCOUNTER 2019-12-28 18:27 | Emergency (ER) | payer MEDICAID, SELFPAY ==
[2019-12-28 18:28] VITALS: BP 133/74; PULSE 88; RESP 22; TEMP 36; O2SAT 98; O2SAT 99; BMI 33.0
--- NOTE | 2019-12-28 18:46 | ED.DCSUM_ITS ---
History of Present Illness Chief Complaint: Flank Pain Informant: Patient Narrative: 49-year-old female presenting with right upper quadrant pain. She states she has been dealing with pain like this for about a year. It comes and goes. She has had a previous gallbladder ultrasound which showed a polyp. Patient was seen last week here and had a lab work-up which was normal. She had a negative CT abdomen pelvis. She states he continues to have intermittent pain is mostly localized to the right upper quadrant. Patient states that it does not always correlate with food. She woke up this morning with pain and when the pain went away she was able to eat some vegetable soup. Later her pain returned. She has not had fever, chills. She has nausea without vomiting. She states she has cloudy urine out dysuria. Prior similar symptoms: Yes Past Medical History - Allergies and Home Meds Allergies/Adverse Reactions: Allergies cat dander Allergy (Severe, Verified 12/16/19 07:24) Lips & throat swole FIBERGLASS Allergy (Severe, Uncoded 12/16/19 07:24) SEVERE ITCHING AND RASH POULTRY Allergy (Uncoded 12/16/19 07:24) Anaphylaxis Primary Care Physician: Cici Martinez MD [Primary Care Provider] - Past Medical History: - - History of breast cancer, hyperlipidemia Surgical History: hysterectomy, - - Single oophorectomy Smoking Status: Former smoker - Family History Maternal Family History: Family History (Last Reviewed 08/02/19 @ 20:[address] Junior Ahn MD) Unknown No problems noted. Mother Anemia Anxiety Arthritis Breast cancer Depression Osteoporosis Father Anxiety Depression Mental disorder Parkinson disease Respiratory complication Family History: Reports: Diabetes, Heart Disease Paternal Family History: Family History (Last Reviewed 08/02/19 @ 20:[address] Junior Ahn MD) Unknown No problems noted. Mother Anemia Anxiety Arthritis Breast cancer Depression Osteoporosis Father Anxiety Depression Mental disorder Parkinson disease Respiratory complication Family History: Reports: No pertinent history Review of Systems General: Denies: Chills, Fever, Sweats Eyes: Denies: Visual changes - bilaterally, Diplopia ENT: Denies: Rhinorrhea, Sore throat Cardiovascular: Denies: Chest pain, Palpitations Respiratory: Denies: Dyspnea, Cough, Dyspnea on exertion Gastrointestinal: Reports: Abdominal pain, Nausea. Denies: Vomiting, Diarrhea, Constipation Genitourinary: Reports: - - Cloudy urine. Denies: Dysuria Musculoskeletal: Denies: Back pain, Extremity Pain Skin: Denies: Rash, Wounds Neurological: Denies: Headache, Weakness, Numbness Physical Exam Vital Signs/Narrative: Vital Signs Temp Pulse Resp BP Pulse Ox 12/28/19 18:28 96.8 F L 88 22 H 133/74 H 98 General: Obese, No Acute Distress Head: Normocephalic, Atraumatic Eyes: Perrl, EOMI ENT: Moist mucous membranes, No rhinorrhea Cardiovascular: Regular rate, Regular rhythm Respiratory: No distress, CTA bilaterally Abdomen: Soft, Nondistended, Lisa's sign Back: Nontender. Negative for: CVA tenderness Extremities: Nontender, No edema Skin: Normal color, No rash. Negative for: Jaundice Neurological: Alert, Oriented x3 Psychological: Tearful, Agitated Diagnostic/Tx/Re-eval Clinical Impression(s) from Imaging Studies Gallbladder Ultrasound 12/28/19 18:46 IMPRESSION: Normal gallbladder ultrasound examination. Electronically Signed: Stephan Pascual MD at 20:21 EDT , Service support , Laboratory Data 12/28/19 12/28/19 18:42 18:42 WBC 5.2 RBC 4.53 Hgb 13.9 Hct 39.8 MCV 87.9 MCH 30.7 MCHC 34.9 RDW Std Deviation 38.7 RDW Coeff of Adrian 12.1 Plt Count 174 MPV 9.4 Immature Gran % (Auto) 0.200 Neut % (Auto) 61.9 Lymph % (Auto) 29.9 [place] % (Auto) 6.4 Eos % (Auto) 1.0 Baso % (Auto) 0.6 Absolute Neuts (auto) 3.2 Absolute Lymphs (auto) 1.55 Nucleated RBC % 0 Sodium 141 Potassium 3.5 Chloride 109 H Carbon Dioxide 25.0 Anion Gap 7 BUN 13 Creatinine 0.93 Estim Creat Clear Calc 62.49 Est GFR (MDRD) Af Amer 82 Est GFR (MDRD) Non-Af 68 BUN/Creatinine Ratio 14.0 Glucose 87 Calcium 9.1 Total Bilirubin 0.60 AST 22 ALT 31 Alkaline Phosphatase 138 H Total Protein 8.2 Albumin 4.4 Globulin 3.8 Albumin/Globulin Ratio 1.2 Lipase 74 - Medical Decision Making 49-year-old female presenting with abdominal pain which she has had on and off for a year. She was seen last week and had lab work and a CT of the abdomen pelvis which was negative. Today she is having right upper quadrant pain. She is ordered ultrasound of the right upper quadrant which is negative. All of her blood work is normal. She was given a dose of morphine for pain. She was given Zofran and a follow-up dose of Phenergan for nausea. After her work-up was negative I did discuss that we could need to CT abdomen pelvis but she declined. I recommended she follow-up with her PCP for GI referral for upper endoscopy given her symptoms. She was amenable to this. She has pain medication at home. Patient is given return precautions. Impression: 1. Right upper quadrant pain 2. Nausea ED Disposition - Plan for ED Patient: Disposition: Home or Assisted Living Instructions: Abdominal Pain Prescriptions: Ondansetron [Zofran Odt] 4 mg PO Q8H PRN PRN #14 tab PRN Reason: Nausea Transmission Status: Received by [id number] [facility] Referrals: Cici Martinez MD [Primary Care Provider] -
--- NOTE | 2019-12-28 18:46 | US_ITS ---
STUDY: ULTRASOUND GALLBLADDER REASON FOR VISIT: Female, 49 years old. Right upper quadrant pain TECHNIQUE: Ultrasound evaluation of the gallbladder was performed with real-time and static mcknight-scale imaging. TECHNICAL QUALITY: Limited. Examination limited by bowel gas. COMPARISON: CT scan 12/16/2019. FINDINGS: Gallbladder: Normal distended gallbladder. The gallbladder wall measures 2 mm. There is a negative sonographic Lisa''s sign. There is no pericholecystic fluid. There are no gallstones. Common Bile Duct (C.B.D.): The common bile duct measures 1.5 mm. US/Gallbladder IMPRESSION: Normal gallbladder ultrasound examination. Electronically Signed: Stephan Pascual MD at 20:21 EDT , Service support ,
[2019-12-28 18:53] LABS: Absolute Lymphocyte Count 1.55 X10^3/uL (0.83-4.51); Absolute Neutrophil Count 3.2 X10^3/uL (2.0-7.7); Basophil# 0.03 X10^3/uL; Basophil% 0.6 % (0-1); Eosinophil# 0.05 X10^3/uL; Hematocrit 39.8 % (37-47); Hemoglobin 13.9 g/dL (12.0-15.0); Lymphocyte # 1.55 X10^3/ul (4.0); Lymphocyte % 29.9 % (19-41); Mean Corp Hgb Conc 34.9 g/dL (32-36); Mean Corpuscular Hgb 30.7 pg (27.0-32.0); Mean Corpuscular Volume 87.9 fL (81-99); Mean Platelet Vol. 9.4 fl (6.2-12.0); Monocyte# 0.33 X10^3/uL; Monocyte% 6.4 % (0-10); NRBC Flagged by Analyzer 0 % (0-5); Neutrophil # 3.21 X10^3/uL (2.7-7.7); Neutrophil % 61.9 % (47-70); Platelet Count 174 K/mm3 (150-450); RBC Distribution Width CV 12.1 % (11.6-14.6); RBC Distribution Width SD 38.7 fl (35.1-43.9); Red Blood Count 4.53 M/mm3 (4.2-5.4); White Blood Count 5.2 K/mm3 (4.4-11.0)
[2019-12-28 19:11] LABS: ALB/GLOB Ratio 1.2 RATIO (0.9-2.4); AST(SGOT) 22 U/L (15-37); Alanine Aminotransfer ALT/SGPT 31 U/L (13-56); Albumin, Serum 4.4 g/dL (3.2-5.0); Alkaline Phosphatase 138 U/L (45-117); Anion Gap 7 (5-15); BUN 13 mg/dL (7-18); Calcium,Total 9.1 mg/dL (8.5-10.1); Chloride 109 mmol/L (98-107); Creatinine, Serum 0.93 mg/dL (0.55-1.02); EST Glomerular Filtration Rate 68 mL/min (>60); Est Glom Filt Rate - Afr Amer 82 mL/min (>60); Estimated Creatinine Clearance 62.49 ml/min; Globulin 3.8 g/dL (2.2-4.2); Glucose 87 mg/dL (74-106); Lipase 74 U/L (73-393); Potassium 3.5 mmol/L (3.5-5.1); Protein, Total 8.2 g/dL (6.4-8.2); Sodium Level 141 mmol/L (136-145)
[2019-12-28] MEDS: Morphine 4 MG/ML Syringe IV (19:11)
[2019-12-28] MEDS: Ondansetron 4 MG/2 ML Vial IV (19:11)
[2019-12-28] MEDS: 0.9% Normal Saline 1,000 ML 1000 ML IV (19:11)
[2019-12-28] MEDS: proMETHazine 25 MG/ML Syringe 12.5 MG IV (20:25)
[2019-12-28 21:20] VITALS: BP 105/71; PULSE 70; RESP 16; O2SAT 98
== END 2019-12-28 21:25 | disposition home or self-care (01) ==
PROVIDERS: Emergency Provider Student in an Organized Health Care Education/Training Program; PCP Internal Medicine
DX: R10.11 Right upper quadrant pain (principal); R11.0 Nausea; R30.0 Dysuria; E78.5 Hyperlipidemia, unspecified; E66.9 Obesity, unspecified; Z79.899 Other long term (current) drug therapy; Z85.3 Personal history of malignant neoplasm of breast
CPT/HCPCS: 76705; 80053; 83690; 85025; 96361; 96374; 96375; 99283; J7030; A4216; J2405

== ENCOUNTER → 2020-01-28 14:17 | Outpatient (CLI) | payer MEDICAID, SELFPAY ==
[2020-01-16 13:07] VITALS: BMI 36.2
[2020-01-28 16:32] LABS: Cholesterol 181 mg/dL (200); High Density Lipoprotein 52 mg/dL; Triglycerides 160 mg/dL; Very Low Density Lipoprotein 32 mg/dL (5-40)
== END ==
PROVIDERS: PCP Internal Medicine; Referring Provider Internal Medicine; Visit Provider Internal Medicine
DX: E78.5 Hyperlipidemia, unspecified (principal)
CPT/HCPCS: 36415; 80061

== ENCOUNTER 2020-02-10 07:01 | Day surgery (SDC) | payer MEDICAID, SELFPAY ==
[2020-01-16 13:07] VITALS: BMI 36.2
[2020-02-10] VITALS (7 sets, daily range): BP systolic 101–129; BP diastolic 54–96; PULSE 71–83; RESP 16–18; TEMP 36.6–36.8; O2SAT 97–100; BMI 35.8
[2020-02-10 07:40] LABS: Bedside Glucose 100 mg/dL (70-110)
[2020-02-10] MEDS: Lactated Ringers 1,000 ML 100 ML IV (07:57)
--- NOTE | 2020-02-10 08:45 | EGD_PTH ---
PATIENT: SHARON BARRAGAN LOC: EN U#:[id number] AGE/SX: 49/F ROOM: RE02/10/[address]: Dr. Betsy Antoine MD : 1970 BED: DIS: 02/10/2020 SPEC #: [id number] RECD: 02/10/20 13:21 STATUS: CHIDI THANIA #: [id number] JOANNA: 02/10/20 08:[address]: Betsy Antoine DEPT: SURGICAL PATHOLOGY RECD BY: Alis Brown ENTERED: 02/10/20 13:54 SP TYPE: EGD BIOPSY OT DR: Dr. Cici Martinez MD Tissues: A - Gastric mucous membrane B - Gastric mucous membrane C - Gastric mucous membrane D - Ascending colon Procedures: Special Stain Group II Surgery Specimen Level IV Alcian Blue/PAS (control) HEADER OPERATION: Colonoscopy, EGD ([facility]) PRE-OP DIAGNOSIS: RUQ pain, history peptic ulcer, screening for colon cancer TISSUE SUBMITTED: A - Antrum biopsy for histo and H. pylori, B - EG junction biopsy, C - Gastric body biopsy, D - Ascending polyp biopsy MICROSCOPIC DIAGNOSIS A. Gastric antrum, biopsy: Chronic gastritis. See comment. B. Gastroesophageal junction, biopsy: Fragments of gastric mucosa with chronic inflammation. No evidence of intestinal metaplasia. See comment. C. Gastric body mucosa, biopsy: No pathologic change. D. Ascending colon polyp, biopsy: Fragments of benign colonic mucosa. See comment. AM:sharon 02/11/20 COMMENT A. The results of immunohistochemistry for Helicobacter pylori will be reported separately ([id number]). B. Alcian blue/PAS stain with matched control supports the above diagnosis. C. Neither hyperplastic nor adenomatous change is identified. Clinical correlation is suggested. MICROSCOPIC DESCRIPTION Slides are reviewed. GROSS DESCRIPTION A - Received in fixative is one container labeled with the patient's name and designated antrum biopsy. The specimen consists of one irregular fragment of light clark soft tissue that measures 0.3 x 0.3 x 0.1 cm. The specimen is totally submitted in one cassette. B - Received in fixative is one container labeled with the patient's name and designated EG junction biopsy. The specimen consists of two irregular fragments of light clark soft tissue that in aggregate measure 0.3 x 0.3 x 0.2 cm. The specimen is totally submitted in one cassette. C - Received in fixative is one container labeled with the patient's name and designated gastric body biopsy. The specimen consists of one irregular fragment of light clark soft tissue that measures 0.6 x 0.2 x 0.1 cm. The specimen is totally submitted in one cassette. D - Received in fixative is one container labeled with the patient's name and designated ascending polyp biopsy. The specimen consists of two irregular fragments of light clark soft tissue that in aggregate measure 0.7 x 0.3 x 0.1 cm. The specimen is totally submitted in one cassette. / AM:sharon 02/10/20 TC:3 CPT: 18601 x4, 32742
--- NOTE | 2020-02-10 08:45 | IMM_PTH ---
PATIENT: SHARON BARRAGAN LOC: EN U#:[id number] AGE/SX: 49/F ROOM: RE02/10/[address]: Dr. Betsy Antoine MD : 1970 BED: DIS: 02/10/2020 SPEC #: [id number] RECD: 02/10/20 14:59 STATUS: CHIDI REConstance #: [id number] JOANNA: 02/10/20 08:[address]: Betsy Antoine DEPT: IMMUNOHISTOCHEMISTRY RECD BY: Pretty Bee ENTERED: 02/10/20 15:00 SP TYPE: IMMUNO OTHR DR: Dr. Cici Martinez MD Tissues: A - Stomach, NOS Procedures: H Pylori (initial) PHYSICIAN & INSTITUTION [place] [id number] SPECIMEN INFORMATION: Tissue Source: A - Antrum biopsy Clinical Info: RUQ pain, history of peptic ulcer, screening for colon cancer Specimen Number: [id number] CPT code: 17132 METHODOLOGY: Deparaffinized sections of prefer/formalin-fixed tissue or PAP/DQ stained slides are incubated with monoclonal/polyclonal antibodies/oligonucleotide probes. Localization is made via biotin free immunoperoxidase method. Appropriate controls are performed and reacted as expected. Results on target cell population are indicated in the following table: RESULTS: ANTIBODY / CLONE RESULT Block A H Pylori (polyclonal) negative These tests were developed and their performance characteristics determined by [facility]. They may not have been cleared or approved by the U.S. Food and Drug Administration. The FDA has determined that such clearance or approval is not necessary. INTERPRETATION: A. Antrum biopsy: Negative for Helicobacter pylori organisms. AM:sharon 02/11/20
--- NOTE | 2020-02-10 09:00 | HP_ITS ---
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 Required: No Is patient in pain?: No Allergies cat dander Allergy (Severe, Verified 01/16/20 13:08) Lips & throat swole FIBERGLASS Allergy (Severe, Uncoded 01/16/20 13:08) SEVERE ITCHING AND RASH POULTRY Allergy (Uncoded 01/16/20 13:08) Anaphylaxis Medications atorvastatin 20 mg tablet 20 mg PO QHS #90 tab 10/07/19 [Rx Confirmed 01/16/20] trazodone 50 mg tablet 50 mg PO QHS PRN #90 tab 10/07/19 [Rx Confirmed 01/16/20] lorazepam 0.5 mg tablet 0.5 mg PO QHS PRN #30 tab 11/07/19 [Rx Confirmed 01/16/20] pregabalin 50 mg capsule 100 mg PO DAILY #60 cap 12/10/19 [Rx Confirmed 01/16/20] pregabalin 75 mg capsule 150 mg PO DAILY@1700 #60 cap 12/10/19 [Rx Confirmed 01/16/20] Hydrocodone/Acetaminophen [[place] 5-325 Tablet] 1 ea PO BID 12/16/19 [History Confirmed 01/16/20] Ondansetron [Zofran Odt] 4 mg PO Q8H PRN PRN #14 tab 12/28/19 [Rx Confirmed 01/16/20] omeprazole 40 mg capsule,delayed release 40 mg PO DAILY #60 cap 12/31/19 [Rx Confirmed 01/16/20] sertraline 100 mg tablet 200 mg PO DAILY #180 tab 12/31/19 [Rx Confirmed 01/16/20] PFSH Medical History Neuropathy (Chronic) Depression with anxiety (Chronic) Carpal tunnel syndrome (Chronic) Seasonal allergies (Acute) Back pain (Acute) BONE FRACTURES - BROKEN RIGHT ARM (Acute) Breast lump in female (Acute) Breast cancer in female (Chronic) History of emotional problems (Acute) Goiter (Chronic) Thyroid disease (Chronic) Fibroids (Acute) 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) Postprocedural seroma of skin and subcutaneous tissue following other procedure (Chronic) Deformity of reconstructed breast (Acute) Postoperative hematoma of subcutaneous tissue following non-dermatologic procedure (Acute) Radiation skin ulcer of chest (Chronic) Partial loss of skin graft (Acute) Late effect of radiation (Chronic) Estrogen receptor negative status [ER-] (Chronic) Disproportion of reconstructed breast (Acute) 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 Mother Anemia Anxiety Arthritis Breast cancer Depression Osteoporosis Father Anxiety Depression Mental disorder Parkinson disease Respiratory complication Social History (Updated 01/16/20 @ 14:[address] Betsy Antoine MD) Smoking Status: Former smoker second hand exposure: No alcohol intake: current alcohol intake frequency: a few times a week Alcohol type: other substance use type: does not use what type of physical activity do you participate in: other frequency: daily seatbelt use: always do you feel safe at home: Yes additional social history: SUN EXPOSURE: OCCASIONALLY HPI HPI HPI: SHARON BARRAGAN, is a 49 F who presents to the office today for HPI HPI Surgical H&P: Yes HPI: SHARON BARRAGAN, is a 49 F who presents to the office today for right upper quadrant pain and screening colonoscopy. Patient states she had the right upper quadrant pain for prior about a year she is unsure if anything was associated with this pain. She could have it for 3 days at a time all day she does not really think it woke her up at night unsure if it had anything to do with food. Patient did undergo an ultrasound which only showed small little gallbladder polyp and CT did not show any obvious source but did have stool throughout the colon. Patient was started on omeprazole about a week ago and states that the pain is a lot better rates it as 0/10 and prior to that the worst it had been was an 8/10. Patient states she did have history of an ulcer years ago. Patient also had a history of C. difficile previously in 2017 after surgery but denies diarrhea and states she goes daily currently. Patient denies any family history of colon cancer never had an EGD or colonoscopy. Patient has had thyroid and breast cancer and multiple abdominal surgeries involving reconstruction for breast cancer. Exam Const General: cooperative, comfortable, no acute distress, well developed Chest Other: Multiple incisions well-healed, under the right breast there was a blue suture sticking out did attempt to remove it however only able to move the distal portion. Resp Effort & Inspection: normal respiratory effort GI Inspection: normal to inspection, incision (Well-healed previous incisions) Palpation: soft, no guarding, nontender Assessment & Plan Problems 1. RUQ pain R10.11 2. Hx of peptic ulcer Z87.11 3. Screening for colon cancer Z12.11 Plan Did review the CT abdomen pelvis and ultrasound with the patient--she did have stool throughout her colon did recommend her taking some laxatives prior to starting the prep so she could do well with a 1 day prep but she states she has bowel movements daily. Also talked patient about the importance of having high fiber in her diet. Patient will continue the omeprazole. I have discussed the above with the patient. I have offered the patient colonoscopy for evaluation. I have explained the risks/benefits of the procedure and described the procedure. I have discussed the risks with the patient, including but not limited to: infection, bleeding, perforation of the GI tract requiring emergency surgery, inability to complete the procedure, injury to any internal organs, complications of anesthesia, etc. - the patient understands and agrees to proceed. I have answered all the patient's questions to the patient's satisfaction and the patient has no further questions. The patient has been given instructions for the colon cleansing preparation. 1 day of clears, MiraLAX Dulcolax split prep. Betsy Antoine M.D. Pager: [phone] [facility] [address] [place] [address], [facility], [address] [place] [id number] Office: [phone] Orders Orders: Colonoscopy Today EGD Today Plan Detail Follow Up We will schedule EGD and colonoscopy Coding Level of Care Code Off vis,new,level 3 Diagnoses RUQ pain R10.11 Hx of peptic ulcer Z87.11 Screening for colon cancer Z12.11 I have re-examined the patient. There are no clinical changes since date of exam.
--- NOTE | 2020-02-10 09:36 | OP.EGD_ITS ---
Patient Name: Idania Hyman Procedure Date: 02/10/2020 8:39 AM Date of : 1970 Age: 49 Procedure: Upper GI endoscopy Indications: Abdominal pain in the right upper quadrant Providers: Betsy Antoine MD Referring MD: Cici Martinez MD Medicines: Monitored Anesthesia Care Patient Profile: This is a 49 year old female. Complications: No immediate complications. Procedure: Pre-Anesthesia Assessment: - Prior to the procedure, a History and Physical was performed, and patient medications and allergies were reviewed. The patient's tolerance of previous anesthesia was also reviewed. The risks and benefits of the procedure and the sedation options and risks were discussed with the patient. All questions were answered, and informed consent was obtained. Prior Anticoagulants: The patient has taken no previous anticoagulant or antiplatelet agents. ASA Grade Assessment: Per anesthesia. After reviewing the risks and benefits, the patient was deemed in satisfactory condition to undergo the procedure. After obtaining informed consent, the endoscope was passed under direct vision. Throughout the procedure, the patient's blood pressure, pulse, and oxygen saturations were monitored continuously. The gastroscope was introduced through the mouth, and advanced to the second part of duodenum. The upper GI endoscopy was accomplished without difficulty. The patient tolerated the procedure well. Scope In: 8:46:45 AM Scope Out: 8:53:45 AM Total Procedure Duration Time 0 hours 7 minutes 0 seconds Findings: The Z-line was variable and was found 35 cm from the incisors. Biopsies were taken with a cold forceps for histology. Moderate inflammation characterized by erythema was found in the gastric body. Biopsies were taken with a cold forceps for histology. Mildly erythematous mucosa without bleeding was found in the gastric antrum. Biopsies were taken with a cold forceps for Helicobacter pylori cultures. Biopsies were taken with a cold forceps for histology. The examined duodenum was normal. The cardia and gastric fundus were normal on retroflexion. Impression: - Z-line variable, 35 cm from the incisors. Biopsied. - Gastritis. Biopsied. - Erythematous mucosa in the antrum. Biopsied. - Normal examined duodenum. Recommendation: - Await pathology results. - Discharge patient to home. - Resume previous diet. - Continue present medications. - Use Prilosec (omeprazole) 40 mg PO daily. Procedure Code(s): --- Professional --- 38337, Esophagogastroduodenoscopy, flexible, transoral; with biopsy, single or multiple Diagnosis Code(s): --- Professional --- K22.8, Other specified diseases of esophagus K29.70, Gastritis, unspecified, without bleeding K31.89, Other diseases of stomach and duodenum R10.11, Right upper quadrant pain CPT copyright 2017 [employer]. All rights reserved. The codes documented in this report are preliminary and upon coder operator review may be revised to meet current compliance requirements. MD Betsy Ryan MD 02/10/2020 9:35:42 AM This report has been signed electronically. Number of Addenda: 0 Note Initiated On: 02/10/2020 8:39 AM
--- NOTE | 2020-02-10 09:36 | OP.CCLET_ITS ---
02/10/2020 Cici Martinez MD [address] [place] [address] [place] [address] Re : Upper GI endoscopy procedure for [facility] [place] Dear Dr. Martinez This procedure was performed on Monday, February 10, 2020. My impressions and recommendations are as follows: Impressions : - Z-line variable, 35 cm from the incisors. Biopsied. - Gastritis. Biopsied. - Erythematous mucosa in the antrum. Biopsied. - Normal examined duodenum. Recommendations : - Await pathology results. - Discharge patient to home. - Resume previous diet. - Continue present medications. - Use Prilosec (omeprazole) 40 mg PO daily. My findings are described in the full procedure note, which is enclosed. If I can be of further assistance, please feel free to contact me at Doctor phone number(s): , Work: . Sincerely, MD Betsy Ryan MD 02/10/2020 9:35:42 AM This report has been signed electronically.
--- NOTE | 2020-02-10 09:39 | OP.CCLET_ITS ---
02/10/2020 Cici Martinez MD [address] [place] [address] [place] [address] Re : Colonoscopy procedure for [facility] Dear Dr. Martinez This procedure was performed on Monday, February 10, 2020. My impressions and recommendations are as follows: Impressions : - One less than 5 mm polyp in the ascending colon, removed with a cold biopsy forceps. Resected and retrieved. - Internal hemorrhoids. Recommendations : - Repeat colonoscopy in 5-10 years for surveillance based on pathology results. - Continue present medications. My findings are described in the full procedure note, which is enclosed. If I can be of further assistance, please feel free to contact me at Doctor phone number(s): , Work: . Sincerely, MD Betsy Ryan MD 02/10/2020 9:38:35 AM This report has been signed electronically.
--- NOTE | 2020-02-10 09:39 | OP.COLON_ITS ---
Patient Name: Idania Hyman Procedure Date: 02/10/2020 8:54 AM Date of : 1970 Age: 49 Procedure: Colonoscopy Indications: Screening for colorectal malignant neoplasm Providers: Betsy Antoine MD Referring MD: Cici Martinez MD Medicines: Monitored Anesthesia Care Patient Profile: This is a 49 year old female. Last Colonoscopy: none. The patient's first colonoscopy is today. Complications: No immediate complications. Procedure: Pre-Anesthesia Assessment: - Prior to the procedure, a History and Physical was performed, and patient medications and allergies were reviewed. The patient's tolerance of previous anesthesia was also reviewed. The risks and benefits of the procedure and the sedation options and risks were discussed with the patient. All questions were answered, and informed consent was obtained. Prior Anticoagulants: The patient has taken no previous anticoagulant or antiplatelet agents. ASA Grade Assessment: Per anesthesia. After reviewing the risks and benefits, the patient was deemed in satisfactory condition to undergo the procedure. After I obtained informed consent, the scope was passed under direct vision. Throughout the procedure, the patient's blood pressure, pulse, and oxygen saturations were monitored continuously. The Colonoscope was introduced through the anus and advanced to the cecum, identified by the appendiceal orifice, ileocecal valve and palpation. The colonoscopy was performed without difficulty. The patient tolerated the procedure well. The quality of the bowel preparation was adequate to identify polyps. Scope In: 8:56:44 AM Scope Withdrawal Time 0 hours 22 minutes 7 seconds Scope Out: 9:27:15 AM Total Procedure Duration Time 0 hours 30 minutes 31 seconds Findings: The perianal and digital rectal examinations were normal. A less than 5 mm polyp was found in the ascending colon. The polyp was sessile. The polyp was removed with a cold biopsy forceps. Resection and retrieval were complete. Internal hemorrhoids were found. The hemorrhoids were Grade I (internal hemorrhoids that do not prolapse). Impression: - One less than 5 mm polyp in the ascending colon, removed with a cold biopsy forceps. Resected and retrieved. - Internal hemorrhoids. Recommendation: - Repeat colonoscopy in 5-10 years for surveillance based on pathology results. - Continue present medications. Procedure Code(s): --- Professional --- 48262, PT, Colonoscopy, flexible; with biopsy, single or multiple Diagnosis Code(s): --- Professional --- Z12.11, Encounter for screening for malignant neoplasm of colon D12.2, Benign neoplasm of ascending colon K64.0, First degree hemorrhoids CPT copyright 2017 [employer]. All rights reserved. The codes documented in this report are preliminary and upon bone drier operator review may be revised to meet current compliance requirements. MD Betsy Ryan MD 02/10/2020 9:38:35 AM This report has been signed electronically. Number of Addenda: 0 Note Initiated On: 02/10/2020 8:54 AM
== END 2020-02-10 10:30 | disposition home or self-care (01) ==
LOC: EN 07:02 → AC 07:02
PROVIDERS: PCP Internal Medicine; Referring Provider Internal Medicine; Visit Provider Surgery
PROC: 0DJD8ZZ Inspection of Lower Intestinal Tract, Via Natural or Artificial Opening Endoscopic (ICD-10-PCS; CPT 45378; principal; 2020-02-10 08:40)
DX: Z12.11 Encounter for screening for malignant neoplasm of colon (principal); D12.2 Benign neoplasm of ascending colon; K64.0 First degree hemorrhoids; K22.8 Other specified diseases of esophagus; K29.70 Gastritis, unspecified, without bleeding; K31.89 Other diseases of stomach and duodenum; Z85.3 Personal history of malignant neoplasm of breast; Z87.11 Personal history of peptic ulcer disease; Z20.828 Contact with and (suspected) exposure to other viral communicable diseases; Z87.891 Personal history of nicotine dependence; F41.9 Anxiety disorder, unspecified; F32.9 Major depressive disorder, single episode, unspecified
CPT/HCPCS: 43239; 45378; 82962; 87426; 88305; 88313; 88342; C9803; J7120; J2405

== ENCOUNTER → 2020-08-27 12:45 | Outpatient (CLI) | payer MEDICAID, SELFPAY ==
[2020-08-03 10:01] VITALS: BMI 35.9
--- NOTE | 2020-08-27 12:45 | MRI_ITS ---
STUDY: MRI LUMBAR SPINE WITHOUT CONTRAST REASON FOR EXAM: Female, 50 years old. low back pain; bilateral lumbar radiculopathy -- TECHNIQUE: Standardized fat and water weighted pulse sequences were obtained in the sagittal and axial planes. COMPARISON: X-ray 08/30/2019 FINDINGS: T12-L1: Normal endplates. Normal disc height, hydration and morphology. Normal bilateral facet joints. Normal central canal and bilateral lateral recesses. Normal bilateral intervertebral neural foramina. Normal lumbar lordosis. There is no substantial scoliosis. Normal conus medullaris that terminates at the L1/L2. L1-2: Normal endplates. Normal disc height, hydration and morphology. Normal bilateral facet joints. Normal central canal and bilateral lateral recesses. Normal bilateral intervertebral neural foramina. L2-3: Normal endplates. Normal disc height, hydration and morphology. Normal bilateral facet joints. Normal central canal and bilateral lateral recesses. Normal bilateral intervertebral neural foramina. L3-4: Loss of disc height and a mild bilobed disc protrusion produces mild spinal stenosis and mild bilateral neural foraminal stenosis. L4-5: Normal endplates. Normal disc height, hydration and morphology. Normal bilateral facet joints. Normal central canal and bilateral lateral recesses. Normal bilateral intervertebral neural foramina. L5-S1: Normal endplates. Normal disc height, hydration and morphology. Normal bilateral facet joints. Normal central canal and bilateral lateral recesses. Normal bilateral intervertebral neural foramina. Normal visualized sacral ala. Normal visualized paraspinous soft tissue structures. MRI/Spine Lumbar (Routine) IMPRESSION: Mild focal degenerative disc disease at L3/L4 as described above. Electronically Signed: Venkatesh Leal MD at 11:01 EDT Tel , Service support ,
== END ==
PROVIDERS: PCP Internal Medicine; Referring Provider Psychiatry & Neurology Neurology; Visit Provider Psychiatry & Neurology Neurology
DX: M54.16 Radiculopathy, lumbar region (principal); M54.5 Low back pain
CPT/HCPCS: 72148

== ENCOUNTER 2020-09-28 17:18 | Emergency (ER) | payer MEDICAID, SELFPAY ==
[2020-09-09 13:01] VITALS: BMI 35.9
[2020-09-28 17:21] VITALS: BP 126/79; PULSE 104; RESP 18; TEMP 36.7; O2SAT 94; BMI 36.1
--- NOTE | 2020-09-28 17:55 | ED.VIS.LOWEX ---
HPI History of Present Illness HPI Narrative: Patient presents with left knee pain that has been constant for the past 2 weeks. Patient states she fell 2 weeks ago and injured her knee. Patient describes her pain as aching and tight. Patient states her pain is worse whenever she goes upstairs. Patient denies any new paresthesias or weakness. Patient has a history of neuropathy in her left leg. Patient states the swelling has been persistent. Patient is concerned over possible fracture and/or blood clot. 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 Anxiety and depression Back pain BONE FRACTURES - BROKEN RIGHT ARM Breast cancer in female Breast cancer, right breast Breast lump in female Cancer phobia Cancer phobia Carpal tunnel syndrome Deformity of reconstructed breast Depression with anxiety Disproportion of reconstructed breast Estrogen receptor negative status [ER-] Fibroids Goiter History of emotional problems Late effect of radiation Neuropathy Panic attacks Partial loss of skin graft Postoperative hematoma of subcutaneous tissue following non-dermatologic procedure Postprocedural seroma of skin and subcutaneous tissue following other procedure Radiation skin ulcer of chest Seasonal allergies Soft tissue radionecrosis Thyroid disease Home Medications buprenorphine 15 mcg/hour weekly transdermal patch 1 patch TD QWEEK 06/09/20 [History Last Taken Unknown] tizanidine 2 mg capsule 2 mg PO QHS 06/09/20 [History Last Taken Unknown] pregabalin 75 mg capsule 150 mg PO QHS #60 cap 07/28/20 [Rx Last Taken Unknown] pregabalin 50 mg capsule 100 mg PO .AM cap 07/29/20 [History Last Taken Unknown] atorvastatin 20 mg tablet 20 mg PO QHS #90 tab 08/19/20 [Rx Last Taken Unknown] omeprazole 40 mg capsule,delayed release 40 mg PO DAILY #90 cap 08/19/20 [Rx Last Taken Unknown] trazodone 50 mg tablet 50 mg PO QHS PRN #90 tab 08/19/20 [Rx Last Taken Unknown] buspirone 5 mg tablet 5 mg PO BID #60 tab 09/09/20 [Rx Last Taken Unknown] cane #1 ea 09/09/20 [Rx Last Taken Unknown] lorazepam 0.5 mg tablet 0.5 mg PO QHS PRN #20 tab 09/09/20 [Rx Last Taken Unknown] sertraline 100 mg tablet 200 mg PO QAM #180 tab 09/09/20 [Rx Last Taken Unknown] Allergy/AdvReac Type Severity Reaction Status Date / Time cat dander Allergy Severe Lips & Verified 09/28/20 17:20 throat swole FIBERGLASS Allergy Severe SEVERE Uncoded 09/28/20 17:20 ITCHING AND RASH POULTRY Allergy Anaphylaxis Uncoded 09/28/20 17:20 Family History Unknown No problems noted. Mother Anemia Anxiety Arthritis Breast cancer Depression Osteoporosis Father Anxiety Depression Mental disorder Parkinson disease Respiratory complication Sister Anemia Anxiety Sister Anxiety Aunt Breast cancer Uncle Leukemia Grandfather Melanoma Other Bowel disease Surgical History complicated hernia surgery History of prophylactic mastectomy of left breast History of thyroidectomy History of tubal ligation HYSTERCTOMY WITH BILATERAL SALPINGECTOMY MASTECTOMY RIGHT BREAST AND BILATERAL SENTINEL NODE BIOPSIES PORT PLACEMENT 02/02 Status post bilateral breast reconstruction Status post transverse rectus abdominis muscle (TRAM) flap breast reconstruction Social History Smoking Status: Former smoker second hand exposure: No alcohol intake: current alcohol intake frequency: a few times a week Alcohol type: other substance use type: does not use what type of physical activity do you participate in: other frequency: daily seatbelt use: always do you feel safe at home: Yes additional social history: SUN EXPOSURE: OCCASIONALLY ROS ROS ED Constitutional Constitutional ED: Denies chills or fever(s) Eyes Eyes: Denies blurry vision or change in vision ENT ENT ED: Denies rhinorrhea or sore throat Cardiovascular Cardiovascular: Denies chest pain or palpitations Respiratory/Chest Respiratory/Chest: Denies cough or dyspnea Gastrointestinal Gastrointestinal: Denies nausea or vomiting Genitourinary Genitourinary ED: Denies dysuria or hematuria Musculoskeletal Musculoskeletal: Denies back pain or neck pain Integumentary Denies abscess or rash Neurologic Neurologic: Denies headache(s) or weakness Allergic/Immunologic Allergic/Immunologic ED: Denies mouth swelling or urticaria EXAM Physical Exam Const Vital Signs: 09/28/20 17:21 Temperature 98.1 F Temperature Source Temporal Pulse Rate 104 H Respiratory Rate 18 Blood Pressure 126/79 H Blood Pressure Mean 94 Pulse Ox 94 Oxygen Delivery Method Room Air Positive well nourished, well developed and obese General Appearance ED: well developed Nutritional Appearance: obese HEENT Reports moist mucous membranes Neck full ROM Extremity Extremity Narrative: There is tenderness and mild edema over the left knee. There is no joint effusion. There is no bony crepitance or step-off. Range of motion was limited in all motions of the left knee secondary to pain. There is no laxity appreciated. Varus and valgus stress test were negative. Nat's test was negative. Strength is 5/5 bilaterally in the lower extremities. Extensor mechanism is intact. There are no sensory deficits noted. There is some mild calf tenderness. Posterior tibial pulses are equal bilaterally. Neuro oriented x3, CN's II-XII intact bilaterally, moves all extremities and no sensory deficits noted Sensorium / Orientation: alert Motor Exam: strength 5/5 throughout Psych mental status grossly normal MDM MDM MDM Narrative Medical decision making narrative: X-rays of the left knee were obtained. There are 4 views. On my interpretation, there is no acute fracture or dislocation. There is a small joint effusion. There are no degenerative changes noted. Radiologist also interpreted the x-ray and agrees. Venous duplex of the left lower extremity was obtained. There is no evidence of DVT. Patient was advised of her findings. Patient was instructed to ice and elevate the left lower extremity. Patient was instructed to follow-up with her primary care physician in 5 to 7 days. Patient understood and was agreeable with the plan. All questions were answered. Radiography Diagnostic Testing: Radiology Impression Knee X-Ray 09/28/20 18:15 IMPRESSION: Small joint effusion Electronically Signed: Darrell Goldstein MD at 18:42 EDT , Service support , Discharge Plan Triage Chief Complaint: Lower Extremity Injury ED Provider: Chip Gonzalez Dx/Rx/DC Orders Clinical Impression: Left knee pain Instructions: ED Knee Pain of Uncertain Cause Prescriptions: No Action tizanidine 2 mg capsule 2 mg PO QHS RF: 0 buprenorphine [Butrans] 15 mcg/hour patch weekly 1 patch TD QWEEK RF: 0 sertraline 100 mg tablet 200 mg PO QAM Qty: 180 RF: 2 buspirone 5 mg tablet 5 mg PO BID Qty: 60 RF: 1 (DME) cane Device See Rx Instructions .ROUTE .MEDSUPPLY Qty: 1 RF: 1 lorazepam 0.5 mg tablet 0.5 mg PO QHS PRN (Reason: anxiety) Qty: 20 RF: 0 pregabalin 50 mg capsule 100 mg PO .AM RF: 0 pregabalin [Lyrica] 75 mg capsule 150 mg PO QHS Qty: 60 RF: 3 atorvastatin [Lipitor] 20 mg tablet 20 mg PO QHS Qty: 90 RF: 2 trazodone 50 mg tablet 50 mg PO QHS PRN (Reason: insomnia) Qty: 90 RF: 1 omeprazole 40 mg capsule,delayed release(DR/EC) 40 mg PO DAILY Qty: 90 RF: 2 Primary Care Provider: Cici Martinez Referrals: Cici Martinez MD [Primary Care Provider] - 5-7 Days Disposition Disposition: Home, Self Care
--- NOTE | 2020-09-28 18:03 | US_ITS ---
STUDY: VENOUS DOPPLER ULTRASOUND - LEFT LOWER EXTREMITY REASON FOR EXAM: Female, 50 years old. LT LEG PAIN AND SWELLING- LATERAL KNEE TECHNIQUE: Ultrasound evaluation of the deep vein system to include salvador-scale imaging and compression was performed. Salvador-scale imaging and Doppler sonographic evaluation, including duplex spectral analysis and qualitative color flow sonography, was performed. COMPARISON: None. FINDINGS: Common Femoral Vein: Normal compression, spontaneity and augmentation. Normal color Doppler. Common Femoral Vein/Greater Saphenous Junction: Normal compression, spontaneity and augmentation. Normal color Doppler. Femoral Proximal: Normal compression, spontaneity and augmentation. Normal color Doppler. Femoral Middle: Normal compression, spontaneity and augmentation. Normal color Doppler. Femoral Distal: Normal compression, spontaneity and augmentation. Normal color Doppler. Popliteal Vein: Normal compression, spontaneity and augmentation. Normal color Doppler. Posterior Tibial Vein: Normal compression, spontaneity and augmentation. Normal color Doppler. Peroneal Vein: Normal compression, spontaneity and augmentation. Normal color Doppler. The right common femoral vein was evaluated and is normal. US/Venous Duplex Imag/Limited/Uni IMPRESSION: Normal venous Doppler ultrasound of the left lower extremity. Electronically Signed: Darrell Goldstein MD at 19:30 EDT , Service support ,
--- NOTE | 2020-09-28 18:15 | RAD_ITS ---
STUDY: X-RAY - LEFT KNEE REASON FOR EXAM: Female, 50 years old. Injury/Pain TECHNIQUE: 3 view(s) of the knee. COMPARISON: None. FINDINGS: Normal visualized distal femur. Normal visualized proximal tibia and fibula. Normal proximal tibiofibular articulation. There is no demonstrated fracture. Normal medial femorotibial compartment. Normal lateral femorotibial compartment. Normal patellofemoral articulation. There is a soft tissue prominence in the suprapatellar region suggesting a small volume joint effusion. The soft tissue structures are unremarkable. RAD/Knee 4 or More Views IMPRESSION: Small joint effusion Electronically Signed: Darrell Goldstein MD at 18:42 EDT , Service support ,
[2020-09-28 19:09] VITALS: BP 126/68; PULSE 85; RESP 18; O2SAT 95
== END 2020-09-28 19:09 | disposition home or self-care (01) ==
PROVIDERS: Emergency Provider Emergency Medicine; PCP Internal Medicine
DX: M25.562 Pain in left knee (principal); M25.462 Effusion, left knee; E07.9 Disorder of thyroid, unspecified; G62.9 Polyneuropathy, unspecified; F32.9 Major depressive disorder, single episode, unspecified; F41.9 Anxiety disorder, unspecified; E66.9 Obesity, unspecified; Z79.899 Other long term (current) drug therapy; Z87.891 Personal history of nicotine dependence; Z85.3 Personal history of malignant neoplasm of breast; Z90.13 Acquired absence of bilateral breasts and nipples
CPT/HCPCS: 73564; 93971; 99282

== ENCOUNTER → 2020-11-13 13:05 | Outpatient (CLI) | payer MEDICAID, SELFPAY ==
[2020-08-03 10:01] VITALS: BMI 35.9
[2020-11-13 13:40] LABS: Hematocrit 38.6 % (37-47); Hemoglobin 13.2 g/dL (12.0-15.0); Mean Corp Hgb Conc 34.2 g/dL (32-36); Mean Corpuscular Hgb 28.9 pg (27.0-32.0); Mean Corpuscular Volume 84.6 fL (81-99); Mean Platelet Vol. 9.7 fl (6.2-12.0); Platelet Count 193 K/mm3 (150-450); RBC Distribution Width SD 36.6 fl (35.1-43.9); Red Blood Count 4.56 M/mm3 (4.2-5.4); White Blood Count 5.7 K/mm3 (4.4-11.0)
[2020-11-13 14:11] LABS: Vitamin B12 575 pg/mL (211-911)
[2020-11-13 14:21] LABS: AST(SGOT) 25 U/L (15-37); Alanine Aminotransfer ALT/SGPT 36 U/L (13-56); Albumin, Serum 3.9 g/dL (3.2-5.0); Alkaline Phosphatase 144 U/L (45-117); Anion Gap 7 (5-15); BUN 12 mg/dL (7-18); BUN/Creat Ratio 13.7 RATIO (10-20); Calcium,Total 9.1 mg/dL (8.5-10.1); Chloride 109 mmol/L (98-107); Creatinine, Serum 0.87 mg/dL (0.55-1.02); EST Glomerular Filtration Rate 73 mL/min (>60); Est Glom Filt Rate - Afr Amer 88 mL/min (>60); Globulin 3.9 g/dL (2.2-4.2); Glucose 99 mg/dL (74-106); Potassium 3.8 mmol/L (3.5-5.1); Protein, Total 7.8 g/dL (6.4-8.2); Sodium Level 139 mmol/L (136-145); Thyroid Stim Hormone (TSH) 1.49 uIU/mL (0.358-3.74)
--- NOTE | 2020-11-13 14:53 | NEURO ---
NCS and/or EMG Patient Report Ordering Doctor: Yobany Delarosa DATE OF SERVICE: 11/13/20 Indication: Bilateral lower extremity pain, tingling and numbness following chemotherapy five years ago. Chronic, localized, knee and back pain. Occasional falls due to the right leg giving out. Evaluate for peripheral neuropathy and/or radiculopathy. Findings: Nerve conduction studies were performed in the right and left lower extremity. The right peroneal motor study recording the extensor digitorum brevis showed a normal amplitude, normal distal latency and normal conduction velocity. No conduction block or focal slowing was present across the fibular neck. The right tibial motor study recording the abductor hallucis brevis showed a normal amplitude, normal distal latency and normal conduction velocity. Right sural sensory response showed a normal amplitude and conduction velocity. Right superficial peroneal sensory response showed a normal amplitude and conduction velocity. Right medial plantar sensory response showed a normal amplitude and conduction velocity. The left peroneal motor study recording the extensor digitorum brevis showed a normal amplitude, normal distal latency and normal conduction velocity. No conduction block or focal slowing was present across the fibular neck. The left tibial motor study recording the abductor hallucis brevis showed a normal amplitude, normal distal latency and normal conduction velocity. Left sural sensory response showed a normal amplitude and conduction velocity. Left superficial peroneal sensory response showed a normal amplitude and conduction velocity. Left medial plantar sensory response showed a normal amplitude and conduction velocity. Needle EMG of the right lower extremity and lumbar paraspinal muscles was performed. No denervation was present in any muscle. All motor unit morphology and recruitment patterns were normal. Activation was fair to poor in all muscles that were examined. Needle EMG of the left lower extremity was omitted due to poor patient tolerance and the paucity of findings in the more symptomatic limb. Impression: This is an essentially normal study. There is no electrophysiologic evidence of lumbosacral radiculopathy, plexopathy, or peripheral neuropathy in the right lower extremity. The poor activation seen during needle EMG is nonspecific, but can be seen in cases of pain, poor effort, or lesions of the central nervous system. Please note: the electrodiagnosis of radiculopathy is made on the basis of excluding peripheral nerve lesions on nerve conduction studies and the needle EMG demonstrating denervation and/or reinnervation in the distribution of one or more nerve roots (i.e., acute and/or chronic axonal loss). Thus, electrodiagnostic studies are insensitive in detecting radiculopathy in the absence of axonal loss (e.g., in the setting of compression resulting in intermittent ischemia or mechanical deformation; or demyelination without axonal loss). Thus, clinical correlation is required in the interpretation of this negative electrodiagnostic study for radiculopathy. Carlos Manuel Alexander D.O.
[2020-11-16 20:08] LABS: Free Kappa Light Chains 25.6 mg/L (3.3-19.4); Free Lambda Light Chains 16.5 mg/L (5.7-26.3)
[2020-11-16 20:54] LABS: Vitamin B1, Thiamine 151.7 nmol/L (66.5-200.0)
== END ==
PROVIDERS: PCP Internal Medicine; Referring Provider Psychiatry & Neurology Neurology; Visit Provider Psychiatry & Neurology Neurology
DX: G62.0 Drug-induced polyneuropathy (principal)
CPT/HCPCS: 36415; 80053; 82607; 82746; 83883; 84425; 84443; 85027; 95886; 95911

== ENCOUNTER → 2020-12-01 14:49 | Outpatient (CLI) | payer MEDICAID, SELFPAY ==
[2020-12-04 16:09] LABS: Albumin 4.1 g/dL (2.9-4.4); Alpha-1-Globulins 0.3 g/dL (0.0-0.4); Alpha-2-Globulins 0.7 g/dL (0.4-1.0); Gamma Globulin 0.9 g/dL (0.4-1.8); Immunoglobulin A 134 mg/dL (87-352); Immunoglobulin G 973 mg/dL (586-1602); Immunoglobulin M 52 mg/dL (26-217); PROEL- TOTAL PROTEIN 7.1 g/dL (6.0-8.5)
== END ==
PROVIDERS: PCP Internal Medicine; Referring Provider Psychiatry & Neurology Neurology; Visit Provider Psychiatry & Neurology Neurology
DX: G62.9 Polyneuropathy, unspecified (principal)
CPT/HCPCS: 36415; 82784; 84165; 86334; 86335

== ENCOUNTER 2021-09-15 13:55 | Emergency (ER) | payer MEDICARE, MEDICAID, SELFPAY ==
[2021-09-15 13:56] VITALS: BP 135/78; PULSE 88; RESP 16; TEMP 36.5; O2SAT 98; BMI 37.7
--- NOTE | 2021-09-15 14:29 | US_ITS ---
STUDY: ABDOMINAL ULTRASOUND - RIGHT UPPER QUADRANT REASON FOR VISIT: Female, 51 years old . Right upper quadrant pain. TECHNIQUE: Ultrasound evaluation of the right upper quadrant was performed with real-time and static mcknight-scale imaging. TECHNICAL QUALITY: Adequate. COMPARISON: Comparison is made with prior study 12/28/2019. FINDINGS: Liver: The liver measures 16.6 cm. There is increased echogenicity consistent with fatty infiltration. The bile ducts are within normal limits. There is hepatic color flow. The direction of portal flow is hepatopetal. There is no demonstrated mass lesion. Gallbladder: Normal distended gallbladder. The gallbladder wall measures 3 mm. There is a positive sonographic Lisa''s sign. There is no pericholecystic fluid. There are no gallstones. Common Bile Duct (C.B.D.): The common bile duct measures 5 mm. Pancreas: Normal size of the head, body and tail of the pancreas. There is normal echogenicity of the pancreas. There is no demonstrated pancreatic mass or cyst. Right Kidney: Normal size of the right kidney. The right kidney measures 10.4 cm x 5 cm x 3 cm. Normal renal cortex. The right cortex measures 1.3 cm. There is no demonstrated renal mass or cyst. There is no right hydronephrosis. US/Gallbladder IMPRESSION: Fatty infiltration of the liver. Positive sonographic Lisa''s sign. No evidence of cholelithiasis. Electronically Signed: Jin Kingston MD at 15:37 EDT ,
--- NOTE | 2021-09-15 14:35 | ED.VIS.GI ---
HPI HPI - GI History of Present Illness Chief Complaint: Abd Pain Informant: patient Narrative Narrative: Patient presenting recurrent burning right side abdomen for the past 2 days. Nausea without vomiting. Normal bowel movements last normal 1 yesterday evening. No urinary symptoms. Total hysterectomy in the past. She is had the symptoms for years. She remote history of breast cancer followed by Dr. Nguyen. She reports had blood work done recently she had abnormal liver enzymes for which she states an ultrasound ordered as an outpatient while being referred to specialist. She showed results on her phone was elevated liver fraction with no other abnormalities. Still has her gallbladder and appendix. She has had multiple plastic surgeries to her abdomen in the past. She is on a pain patch daily due to chronic pain. Medications buprenorphine. 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 Anxiety and depression Back pain BONE FRACTURES - BROKEN RIGHT ARM Breast cancer in female Breast cancer, right breast Breast lump in female Cancer phobia Cancer phobia Carpal tunnel syndrome Deformity of reconstructed breast Depression with anxiety Disproportion of reconstructed breast Elevated blood-pressure reading, without diagnosis of hypertension Estrogen receptor negative status [ER-] Fibroids Goiter Health care maintenance History of emotional problems Late effect of radiation Neuropathy Panic attacks Partial loss of skin graft Postoperative hematoma of subcutaneous tissue following non-dermatologic procedure Postprocedural seroma of skin and subcutaneous tissue following other procedure Radiation skin ulcer of chest Seasonal allergies Soft tissue radionecrosis Thyroid disease Home Medications buprenorphine 15 mcg/hour weekly transdermal patch (Butrans) 1 patch transdermal QWEEK 06/09/20 [History Last Taken Unknown] tizanidine 2 mg capsule 2 mg PO QHS 06/09/20 [History Last Taken Unknown] omeprazole 40 mg capsule,delayed release 40 mg PO DAILY #90 caps 08/19/20 [Rx Last Taken Unknown] cane #1 ea 09/09/20 [Rx Last Taken Unknown] lorazepam 0.5 mg tablet 0.5 mg PO QHS PRN anxiety #20 tabs 02/23/21 [Rx Last Taken Unknown] sertraline 100 mg tablet 100 mg PO BID #180 tabs 06/18/21 [Rx Last Taken Unknown] atorvastatin 20 mg tablet (Lipitor) 20 mg PO QHS #90 tabs 07/13/21 [Rx Last Taken Unknown] buspirone 15 mg tablet 15 mg PO BID #180 tabs 07/22/21 [Rx Last Taken Unknown] pregabalin 150 mg capsule 150 mg PO BID #60 caps 08/10/21 [Rx Last Taken Unknown] trazodone 50 mg tablet 50 mg PO QHS PRN insomnia #90 tabs 09/09/21 [Rx Last Taken Unknown] Allergy/AdvReac Type Severity Reaction Status Date / Time cat dander Allergy Severe Lips & Verified 09/15/21 13:56 throat swole FIBERGLASS Allergy Severe SEVERE Uncoded 09/15/21 13:56 ITCHING AND RASH POULTRY Allergy Anaphylaxis Uncoded 09/15/21 13:56 Family History Unknown No problems noted. Mother Anemia Anxiety Arthritis Breast cancer Depression Osteoporosis Father Anxiety Depression Mental disorder Parkinson disease Respiratory complication Sister Anemia Anxiety Sister Anxiety Aunt Breast cancer Uncle Leukemia Grandfather Melanoma Other Bowel disease Surgical History complicated hernia surgery History of prophylactic mastectomy of left breast History of thyroidectomy History of tubal ligation HYSTERCTOMY WITH BILATERAL SALPINGECTOMY MASTECTOMY RIGHT BREAST AND BILATERAL SENTINEL NODE BIOPSIES PORT PLACEMENT 02/02 Status post bilateral breast reconstruction Status post transverse rectus abdominis muscle (TRAM) flap breast reconstruction Social History Smoking Status: Former smoker second hand exposure: No alcohol intake: never substance use type: does not use what type of physical activity do you participate in: other frequency: daily seatbelt use: always do you feel safe at home: Yes additional social history: SUN EXPOSURE: OCCASIONALLY ROS ROS ED Constitutional Constitutional ED: Denies chills, fever(s) or sweats Eyes Eyes: Denies change in vision ENT ENT ED: Denies dysphagia or sore throat Cardiovascular Cardiovascular: Denies chest pain, leg edema, palpitations or racing heartbeat Respiratory/Chest Respiratory/Chest: Denies cough, dyspnea or dyspnea on exertion Gastrointestinal Gastrointestinal: Reports abdominal pain and nausea; Denies diarrhea or vomiting Genitourinary Genitourinary ED: Denies dysuria, hematuria or urinary frequency Musculoskeletal Musculoskeletal: Denies back pain, extremity pain or neck pain Integumentary Denies rash or wounds Neurologic Neurologic: Denies headache(s), paresthesias or weakness EXAM Physical Exam Const Vital Signs: 09/15/21 13:56 09/15/21 17:01 09/15/21 18:30 Temperature 97.7 F L Temperature Source Temporal Pulse Rate 88 84 Respiratory Rate 16 16 Blood Pressure 135/78 H 94/49 L 118/89 H Blood Pressure Mean 97 64 98 Pulse Ox 98 95 Oxygen Delivery Method Room Air Room Air Positive well nourished and well developed General Appearance ED: well developed and NAD HEENT Reports moist mucous membranes normocephalic and atraumatic Eyes PERRL, EOMs intact bilaterally and conjunctivae normal General Eye ED: Yes normal appearance of both eyes Neck no lymphadenopathy and supple General: Negative for tenderness Chest Wall Chest: Negative for tenderness Resp normal respiratory effort and normal air movement Effort and Inspection: symmetric chest movement; Negative for respiratory distress Cardio regular rate, regular rhythm and no murmurs Peripheral Pulses: pulses 2+ throughout GI normal to inspection, nondistended, normoactive bowel sounds GI Narrative: Tender palpation right side right upper abdomen and with no guarding or rebound. Negative McBurney's. No rash in this region. Palpation: Negative for guarding or rebound tenderness present Back/Spine no CVA tenderness and no thoracic nor lumbar tenderness Extremity normal to inspection General Extremety ED: Negative for edema or tenderness General Extremity: Negative for edema Neuro oriented x3 and no sensory deficits noted Sensorium / Orientation: awake and alert Skin no rashes or lesions noted and no wounds MDM MDM MDM Narrative Medical decision making narrative: Patient pain right side into the right upper quadrant. She is nauseated. She reports recurrent pain same area for the past few years. There is no rash in the region currently. I will check labs and obtain ultrasound for further evaluation. She is given Zofran IV fluids. Normal labs pretty much normal only slight elevated ALP. Ultrasound results were delayed due to imaging system delay. Results noted fatty liver however normal gallbladder wall normal common bile duct. No cholelithiasis. She had pain in the right upper quadrant. She was given additional Reglan with improvement of symptoms. Discussed with patient to follow-up with GI for which she states she is clear to see Dr. Brito. Information placed on the chart. She has antiemetics at home. She will monitor for any rash in the region of her pain. All questions were answered. Lab Data Attestation: I reviewed the patient's lab results. Labs: Laboratory Results - last 24 hr 09/15/21 09/15/21 09/15/21 14:17 14:17 14:35 WBC 4.9 RBC 4.70 Hgb 14.2 Hct 40.1 MCV 85.3 MCH 30.2 MCHC 35.4 RDW Std Deviation 37.8 RDW Coeff of Adrian 12.2 Plt Count 175 MPV 9.9 Immature Gran % (Auto) 0.200 Neut % (Auto) 70.4 H Lymph % (Auto) 21.8 [place] % (Auto) 6.2 Eos % (Auto) 1.0 Baso % (Auto) 0.4 Absolute Neuts (auto) 3.4 Absolute Lymphs (auto) 1.06 Nucleated RBC % 0 Sodium 139 Potassium 3.9 Chloride 108 H Carbon Dioxide 26.0 Anion Gap 5 BUN 12 Creatinine 0.96 Estim Creat Clear Calc 51.73 Est GFR (MDRD) Af Amer 79 Est GFR (MDRD) Non-Af 65 BUN/Creatinine Ratio 12.5 Glucose 97 Calcium 9.5 Total Bilirubin 0.90 Direct Bilirubin 0.19 AST 22 ALT 31 Alkaline Phosphatase 152 H Total Protein 7.8 Albumin 4.2 Globulin 3.6 Lipase 61 L Urine Color Yellow Urine Clarity Sl. Cloudy Urine pH 6.5 Ur Specific [place] 1.005 Urine Protein Negative Urine Glucose (UA) Normal Urine Ketones Negative Urine Occult Blood Negative Urine Nitrite Negative Urine Bilirubin Negative Urine Urobilinogen Normal Ur Leukocyte Esterase Negative Urine RBC 0 SEEN Urine WBC 0 SEEN Ur Squamous Epith Cells 0-5 SEEN Urine Bacteria 0 SEEN Urine Mucus 0 SEEN Radiography Diagnostic Testing: Clinical Impression(s) from Imaging Studies Gallbladder Ultrasound 09/15/21 14:29 IMPRESSION: Fatty infiltration of the liver. Positive sonographic Lisa''s sign. No evidence of cholelithiasis. Electronically Signed: Jin Kingston MD at 15:37 EDT , Discharge Plan Triage Chief Complaint: Abd Pain ED Provider: Amilcar Cast Dx/Rx/DC Orders Clinical Impression: Abdominal pain, Fatty liver Instructions: Abdominal Pain, Nonalcoholic Fatty Liver ... Prescriptions: No Action tizanidine 2 mg capsule 2 mg PO QHS buprenorphine [Butrans] 15 mcg/hour patch weekly 1 patch TD QWEEK Rx Instructions: Dr Blanco ([facility] [place]) cane Device See Rx Instructions .ROUTE .MEDSUPPLY Qty: 1 1RF Rx Instructions: As directed omeprazole 40 mg capsule,delayed release(DR/EC) 40 mg PO DAILY Qty: 90 2RF lorazepam 0.5 mg tablet 0.5 mg PO QHS PRN (Reason: anxiety) Qty: 20 0RF sertraline 100 mg tablet 100 mg PO BID Qty: 180 1RF atorvastatin [Lipitor] 20 mg tablet 20 mg PO QHS Qty: 90 3RF buspirone 15 mg tablet 15 mg PO BID Qty: 180 0RF pregabalin 150 mg capsule 150 mg PO BID Qty: 60 1RF trazodone 50 mg tablet 50 mg PO QHS PRN (Reason: insomnia) Qty: 90 1RF Rx Instructions: take 1 tablet by mouth at bedtime if needed for sleep Primary Care Provider: Cici Martinez Referrals: Cici Martinez MD [Primary Care Provider] - Jarek Brito DO [STAFF PHYSICIAN] - 1 Week Activity Restrictions/Additional Instructions: Labs stable elevated ALP. Fatty liver on ultrasound. Normal gallbladder. Follow-up with Dr. Brito. Disposition Disposition: Home, Self Care Discharge Date/Time: 09/15/21 19:02
[2021-09-15] MEDS: 0.9% Normal Saline 1,000 ML 1000 ML IV (14:40)
[2021-09-15] MEDS: Ondansetron 4 MG/2 ML Vial IV (14:40)
[2021-09-15 14:50] LABS: Bacteria 0 SEEN /hpf (None Seen); Mucous, Urine 0 SEEN /hpf (<or=2+); Red Blood Cells-Urine 0 SEEN /hpf (0-5); White Blood Cells 0 SEEN /hpf (0-5)
[2021-09-15 14:53] LABS: Color, Urine Yellow (Yellow); Glucose, Dipstick Normal (Normal); Ketone-Dipstick Negative (Negative); Leukocyte Esterase-Dipstick Negative /ul (Negative); Nitrite-Dipstick Negative (Negative); Occult Blood-Urine Negative /ul (Negative); Protein-Dipstick Negative (Negative); Specific Gravity, Urine 1.005 (1.002-1.030); Urine Bilirubin Dipstick Negative (Negative); Urine Clarity Sl. Cloudy (Clear); Urine Urobilinogen Normal (Normal); Urine pH 6.5 (5.0 - 8.0)
[2021-09-15 15:05] LABS: Absolute Lymphocyte Count 1.06 X10^3/uL (0.83-4.51); Absolute Neutrophil Count 3.4 X10^3/uL (2.0-7.7); Basophil# 0.02 X10^3/uL; Basophil% 0.4 % (0-1); Eosinophil# 0.05 X10^3/uL; Hematocrit 40.1 % (37-47); Hemoglobin 14.2 g/dL (12.0-15.0); Lymphocyte # 1.06 X10^3/ul (0.83-4.51); Lymphocyte % 21.8 % (19-41); Mean Corp Hgb Conc 35.4 g/dL (32-36); Mean Corpuscular Hgb 30.2 pg (27.0-32.0); Mean Corpuscular Volume 85.3 fL (81-99); Mean Platelet Vol. 9.9 fl (6.2-12.0); Monocyte% 6.2 % (0-10); NRBC Flagged by Analyzer 0 % (0-5); Neutrophil # 3.43 X10^3/uL (2.7-7.7); Neutrophil % 70.4 % (47-70); Platelet Count 175 K/mm3 (150-450); RBC Distribution Width CV 12.2 % (11.6-14.6); RBC Distribution Width SD 37.8 fl (35.1-43.9); White Blood Count 4.9 K/mm3 (4.4-11.0)
[2021-09-15 15:07] LABS: AST(SGOT) 22 U/L (15-37); Alanine Aminotransfer ALT/SGPT 31 U/L (13-56); Albumin, Serum 4.2 g/dL (3.2-5.0); Alkaline Phosphatase 152 U/L (45-117); Anion Gap 5 (5-15); BUN 12 mg/dL (7-18); BUN/Creat Ratio 12.5 RATIO (10-20); Bilirubin, Direct 0.19 mg/dL (0.00-0.30); Calcium,Total 9.5 mg/dL (8.5-10.1); Chloride 108 mmol/L (98-107); Creatinine, Serum 0.96 mg/dL (0.55-1.02); EST Glomerular Filtration Rate 65 mL/min (>60); Est Glom Filt Rate - Afr Amer 79 mL/min (>60); Estimated Creatinine Clearance 51.73 ml/min; Globulin 3.6 g/dL (2.2-4.2); Glucose 97 mg/dL (74-106); Lipase 61 U/L (73-393); Potassium 3.9 mmol/L (3.5-5.1); Protein, Total 7.8 g/dL (6.4-8.2); Sodium Level 139 mmol/L (136-145)
[2021-09-15 15:09] LABS: Squamous Epithelial Cells - UA 0-5 SEEN /hpf (5-10)
[2021-09-15] MEDS: Metoclopramide 10 MG/2 ML Vial 5 MG IV (16:03)
[2021-09-15 17:01] VITALS: BP 94/49
[2021-09-15 18:30] VITALS: BP 118/89; PULSE 84; RESP 16; O2SAT 95
== END 2021-09-15 19:02 | disposition home or self-care (01) ==
PROVIDERS: Emergency Provider Emergency Medicine; PCP Internal Medicine; Visit Provider Emergency Medicine
DX: R10.11 Right upper quadrant pain (principal); R11.0 Nausea; G89.29 Other chronic pain; K76.0 Fatty (change of) liver, not elsewhere classified; Z79.899 Other long term (current) drug therapy; Z87.891 Personal history of nicotine dependence; Z85.3 Personal history of malignant neoplasm of breast; Z90.13 Acquired absence of bilateral breasts and nipples
CPT/HCPCS: 76705; 80048; 80076; 81001; 83690; 85025; 96361; 96374; 96375; 99282; J7030; A4216; J2405

== ENCOUNTER → 2021-10-28 | Outpatient (CLI) | payer MEDICARE, SELFPAY ==
[2021-10-28 16:45] LABS: Cholesterol 193 mg/dL (200); High Density Lipoprotein 49 mg/dL; Triglycerides 143 mg/dL; Very Low Density Lipoprotein 29 mg/dL (5-40)
== END | disposition home or self-care (01) ==
LOC: BIMLAB 15:26
PROVIDERS: PCP Internal Medicine; Referring Provider Internal Medicine; Visit Provider Internal Medicine
DX: E78.5 Hyperlipidemia, unspecified (principal); E66.9 Obesity, unspecified
CPT/HCPCS: 36415; 80061

== ENCOUNTER → 2021-11-04 | Outpatient (CLI) | payer MEDICARE, SELFPAY ==
[2021-11-04 15:39] LABS: Amphetamine Urine VISTA NEGATIVE (<1000 ng/mL); Barbiturate Urine VISTA NEGATIVE (< 200 ng/mL); Benzodiazepine Urine VISTA NEGATIVE (< 200 ng/mL); Cocaine Urine VISTA NEGATIVE (< 300 ng/mL); Ecstacy Urine VISTA NEGATIVE (< 500 ng/mL); Methadone Urine VISTA NEGATIVE (< 300 ng/mL); PCP Urine VISTA NEGATIVE (< 25 ng/mL); THC Urine VISTA NEGATIVE (< 50 ng/mL); Vista UDS pH Range 5
[2021-11-05 08:16] LABS: BUP Internal Control LINE = VALID (VALID); Buprenorphine Drug Screen Negative (<10 ng/mL)
== END | disposition home or self-care (01) ==
PROVIDERS: PCP Internal Medicine; Referring Provider Anesthesiology Pain Medicine; Visit Provider Anesthesiology Pain Medicine
DX: F11.20 Opioid dependence, uncomplicated (principal)
CPT/HCPCS: 80307

== ENCOUNTER → 2021-12-02 | Outpatient (CLI) | payer MEDICARE, SELFPAY ==
[2021-12-02 15:11] LABS: Erythrocyte Sedimentation Rate 28 mm/hr (0-30)
[2021-12-02 15:13] LABS: Absolute Lymphocyte Count 1.28 X10^3/uL (0.83-4.51); Absolute Neutrophil Count 4.8 X10^3/uL (2.0-7.7); Basophil# 0.04 X10^3/uL; Basophil% 0.6 % (0-1); Eosinophil# 0.07 X10^3/uL; Eosinophils% 1.1 % (0-5); Hematocrit 39.2 % (37-47); Lymphocyte # 1.28 X10^3/ul (0.83-4.51); Lymphocyte % 19.3 % (19-41); Mean Corp Hgb Conc 35.7 g/dL (32-36); Mean Corpuscular Hgb 30.8 pg (27.0-32.0); Mean Corpuscular Volume 86.2 fL (81-99); Mean Platelet Vol. 9.5 fl (6.2-12.0); Monocyte# 0.37 X10^3/uL; Monocyte% 5.6 % (0-10); NRBC Flagged by Analyzer 0 % (0-5); Neutrophil # 4.84 X10^3/uL (2.7-7.7); Neutrophil % 73.1 % (47-70); Platelet Count 182 K/mm3 (150-450); RBC Distribution Width CV 12.1 % (11.6-14.6); RBC Distribution Width SD 38.1 fl (35.1-43.9); Red Blood Count 4.55 M/mm3 (4.2-5.4); White Blood Count 6.6 K/mm3 (4.4-11.0)
[2021-12-02 15:40] LABS: AST(SGOT) 17 U/L (15-37); Alanine Aminotransfer ALT/SGPT 27 U/L (13-56); Alkaline Phosphatase 166 U/L (45-117); Anion Gap 9 (5-15); BUN 15 mg/dL (7-18); BUN/Creat Ratio 16.6 RATIO (10-20); Calcium,Total 9.6 mg/dL (8.5-10.1); Chloride 107 mmol/L (98-107); Creatinine, Serum 0.91 mg/dL (0.55-1.02); EST Glomerular Filtration Rate 69 mL/min (>60); Est Glom Filt Rate - Afr Amer 84 mL/min (>60); Globulin 3.9 g/dL (2.2-4.2); Glucose 96 mg/dL (74-106); LDH 217 U/L (84-246); Potassium 3.9 mmol/L (3.5-5.1); Protein, Total 7.9 g/dL (6.4-8.2); Sodium Level 141 mmol/L (136-145)
[2021-12-02 16:06] LABS: HIV - WCH Non-Reactive (Nonreactive)
[2021-12-06 14:08] LABS: Anti-Centromere B Ab <0.2 AI (0.0-0.9); Anti-Chromatin <0.2 AI (0.0-0.9); Anti-Jo <0.2 AI (0.0-0.9); Anti-Scleroderma-70 AB <0.2 AI (0.0-0.9); RNP Ab 0.2 AI (0.0-0.9); SJOGREN'S Anti-SS-A test < 0.2 AI (0.0-0.9); SJOGREN'S Anti-SS-B test < 0.2 AI (0.0-0.9); Smith Ab <0.2 AI (0.0-0.9)
[2021-12-07 08:08] LABS: Angiotensin Convert Enzyme 37 U/L (14-82); Ceruloplasmin 35.3 mg/dL (19.0-39.0); Cytoplasmic Ab (C-ANCA) <1:20 titer (Neg:<1:20); HEPATITIS B SURFACE AG Negative (Negative); Hep C Antibodies <0.1 s/co ratio (0.0-0.9); Hepatitis A IgM Antibody Negative (Negative); Hepatitis B Core AB IgM Negative (Negative)
[2021-12-07 14:25] LABS: Anti-Smooth Muscle ABS 16 Units (0-19); Copper, Serum or Plasma 157 ug/dL (80-158); Haptoglobin 163 mg/dL (33-346); Perinuclear Ab (P-ANCA) <1:20 titer (Neg:<1:20)
[2021-12-07 16:34] LABS: Anti-Mitochondrial AB 29.3 Units (0.0-20.0); Anti-dsDNA Ab <1 IU/mL (0-9)
== END | disposition home or self-care (01) ==
LOC: LAB 14:42
PROVIDERS: PCP Internal Medicine; Visit Provider Internal Medicine Gastroenterology
DX: K76.0 Fatty (change of) liver, not elsewhere classified (principal); R53.83 Other fatigue
CPT/HCPCS: 36415; 80053; 80074; 82140; 82164; 82390; 82525; 83010; 83516; 83615; 85025; 85652; 86140; 86225; 86235; 86256; 86703

== ENCOUNTER → 2021-12-17 | Outpatient (CLI) | payer MEDICARE, SELFPAY ==
--- NOTE | 2021-12-17 07:59 | US_ITS ---
STUDY: ABDOMINAL ULTRASOUND - ELASTOGRAPHY REASON FOR VISIT: Female, 51 years old. Fatty infiltration of the liver. TECHNIQUE: Liver stiffness measurements were obtained on a [employer] RS 85 ultrasound machine using a CA 1-7 probe following the SRU guidelines. 3 measurements were obtained using a 2-D-SWE method. The IQR/M was 20% suggesting a quality data set. TECHNICAL QUALITY: Adequate. COMPARISON: Comparison is made with prior examination of earlier in the day. FINDINGS: Liver: Fatty infiltration of the liver. Median liver stiffness measured 9 kPa. US/Elastography Parenchyma/Organ IMPRESSION: Liver stiffness measures 9 kPa compatible with F2-F3 (Mild to moderate liver fibrosis) Metavir score. Electronically Signed: Jin Kingston MD at 12:11 EDT ,
--- NOTE | 2021-12-17 07:59 | US_ITS ---
STUDY: ABDOMINAL ULTRASOUND - RIGHT UPPER QUADRANT REASON FOR VISIT: Female, 51 years old liver eval -- elastography also fatty infiltration of the liver. TECHNIQUE: Ultrasound evaluation of the right upper quadrant was performed with real-time and static mcknight-scale imaging. TECHNICAL QUALITY: Adequate. COMPARISON: Comparison is made with prior study dated 09/15/2021. FINDINGS: Liver: The liver is enlarged and measures 18.5 cm. There is increased echogenicity consistent with fatty infiltration. The bile ducts are within normal limits. There is hepatic color flow. The direction of portal flow is hepatopetal. There is no demonstrated mass lesion. Gallbladder: Normal distended gallbladder. The gallbladder wall measures 1.3 mm. There is a negative sonographic Lisa''s sign. There is no pericholecystic fluid. There are no gallstones. Common Bile Duct (C.B.D.): The common bile duct measures 5.6 mm. Pancreas: Normal size of the head, body and tail of the pancreas. There is increased echogenicity of the pancreas. There is no demonstrated pancreatic mass or cyst. Right Kidney: Normal size of the right kidney. The right kidney measures 9.5 cm x 4.7 cm x 4.3 cm. Normal renal cortex. The right cortex measures 1.1 cm. There is no demonstrated renal mass or cyst. There is no right hydronephrosis. US/Abdomen Limited IMPRESSION: Hepatomegaly and fatty infiltration of the liver. Electronically Signed: Jin Kingston MD at 12:10 EDT ,
== END | disposition home or self-care (01) ==
LOC: US 07:57
PROVIDERS: PCP Internal Medicine; Referring Provider Internal Medicine Gastroenterology; Visit Provider Internal Medicine Gastroenterology
DX: K76.0 Fatty (change of) liver, not elsewhere classified (principal)
CPT/HCPCS: 76705; 76981

== ENCOUNTER → 2022-01-07 | Outpatient (CLI) | payer MEDICARE, MEDICAID, SELFPAY ==
--- NOTE | 2022-01-07 09:38 | NM_ITS ---
CLINICAL: 51-year-old female with history of abdominal pain and chronic nausea. RADIONUCLIDE HEPATOBILIARY SCINTIGRAPHY COMPARISON: Previous hepatobiliary scintigraphy study report dated 04/21/2016 FINDINGS: Following the intravenous administration of 5.5 mCi of 99m Tc Mebrofenin, hepatobiliary images reveal: 1. Relatively prompt and homogeneous radiopharmaceutical concentration is noted by a normal sized liver. No parenchymal defects are identified. 2. Gallbladder activity is identified at 10 minutes post radiopharmaceutical administration. 3. Small intestinal tract is observed at 30 minutes following tracer injection. 4. Washout of the radiopharmaceutical by the hepatic parenchyma appears qualitatively normal. Cholecystokinin (0.02 ug/kg) was administered intravenously over a 30 minute period. The post CCK gallbladder ejection fraction calculated at 20 minutes following Cholecystokinin administration was noted to be 80.0 % (normal greater than 35%). During 30 minutes of post CCK imaging, there is no scintigraphic evidence of reflux of the radiotracer into the common hepatic duct. There is scintigraphic evidence of post CCK duodenal gastric reflux and refilling of the gallbladder. ME/Hepatobilliary Img w/Pharm Int IMPRESSION: 1. A gallbladder ejection fraction calculated to be greater than 35% following the administration of Cholecystokinin makes the probability of functional hepatobiliary disease (gallbladder) and/or organic hepatobiliary disease (chronic acalculous cholecystitis and/or cystic duct syndrome) to be low. (Kranthi Mustafa et al, Journal of Nuclear Medicine 32:1695, 1990). 2. There is scintigraphic evidence of post CCK duodenal-gastric reflux. (Omayra et al, Nucl Med Livier Camilla Press pg. 35, 1980). 3. A normal gallbladder ejection fraction with refilling of the gallbladder following CCK administration may represent the presence of Sphincter of Oddi dysfunction. Correlation with Sphincter of Oddi manometry may be of benefit. (Mckinley and Mckinley, J Nucl Med 38:1824, 1997). Electronically Signed: Venkatesh Delgado, at 9:32 EDT ,
== END | disposition home or self-care (01) ==
PROVIDERS: PCP Internal Medicine; Visit Provider Internal Medicine Gastroenterology
DX: K76.0 Fatty (change of) liver, not elsewhere classified (principal); R19.8 Other specified symptoms and signs involving the digestive system and abdomen
CPT/HCPCS: 78227; A9537; J2805

== ENCOUNTER → 2022-01-12 | Outpatient (CLI) | payer MEDICARE, MEDICAID, SELFPAY ==
--- NOTE | 2022-01-12 10:33 | MRI_ITS ---
STUDY: MR MRCP WITHOUT CONTRAST REASON FOR EXAM: Female, 51 years old. Primary biliary cirrhosis TECHNIQUE: Standard MRCP technique was utilized. Three-dimensional reconstruction images of the biliary tree performed and reviewed. COMPARISON: 01/07/2022, 12/17/2021 FINDINGS: Gall Bladder: Normal with no distention or demonstrated fixed intraluminal filling defect. Cystic duct: Normal with no demonstrated fixed filling defect. Intrahepatic ducts: Normal visualized intrahepatic ducts with no demonstrated fixed filling defect, dilation or stricture. Common hepatic duct: Normal with no demonstrated fixed filling defect, dilation or stricture. Common bile duct: Normal with no demonstrated fixed filling defect, dilation or stricture. Pancreatic duct: Normal with no demonstrated fixed filling defect, dilation or stricture. MRI/MRCP Abdomen without Contrast IMPRESSION: Normal MR Cholangiopancreatography (MRCP). Electronically Signed: Norbert Arboleda (Brooks), at 16:16 EDT Reading Location ID and State: [id number] [place] , Service support ,
== END | disposition home or self-care (01) ==
PROVIDERS: PCP Internal Medicine; Referring Provider Internal Medicine Gastroenterology; Visit Provider Internal Medicine Gastroenterology
DX: K74.3 Primary biliary cirrhosis (principal)
CPT/HCPCS: 74181

== ENCOUNTER → 2022-07-27 | Outpatient (CLI) | payer MEDICARE, MEDICAID, SELFPAY ==
[2022-07-27 12:19] LABS: Absolute Neutrophil Count 2.6 X10^3/uL (2.0-7.7); Basophil# 0.02 X10^3/uL; Basophil% 0.5 % (0-1); Eosinophil# 0.04 X10^3/uL; Hematocrit 40.1 % (37-47); Hemoglobin 13.9 g/dL (12.0-15.0); Lymphocyte % 25.6 % (19-41); Mean Corp Hgb Conc 34.7 g/dL (32-36); Mean Corpuscular Hgb 30.3 pg (27.0-32.0); Mean Corpuscular Volume 87.6 fL (81-99); Mean Platelet Vol. 10.2 fl (6.2-12.0); Monocyte# 0.24 X10^3/uL; Monocyte% 6.2 % (0-10); NRBC Flagged by Analyzer 0 % (0-5); Neutrophil # 2.59 X10^3/uL (2.7-7.7); Neutrophil % 66.4 % (47-70); Platelet Count 168 K/mm3 (150-450); RBC Distribution Width SD 37.8 fl (35.1-43.9); Red Blood Count 4.58 M/mm3 (4.2-5.4); White Blood Count 3.9 K/mm3 (4.4-11.0)
[2022-07-27 12:49] LABS: ALB/GLOB Ratio 1.1 RATIO (0.9-2.4); AST(SGOT) 15 U/L (15-37); Alanine Aminotransfer ALT/SGPT 29 U/L (13-56); Albumin, Serum 4.1 g/dL (3.2-5.0); Alkaline Phosphatase 130 U/L (45-117); Anion Gap 4 (5-15); BUN 14 mg/dL (7-18); BUN/Creat Ratio 16.4 RATIO (10-20); Bilirubin, Direct 0.17 mg/dL (0.00-0.30); Calcium,Total 9.5 mg/dL (8.5-10.1); Chloride 109 mmol/L (98-107); Cholesterol 176 mg/dL (200); Creatinine, Serum 0.85 mg/dL (0.55-1.02); EST Glomerular Filtration Rate 74 mL/min (>60); Est Glom Filt Rate - Afr Amer 89 mL/min (>60); Globulin 3.6 g/dL (2.2-4.2); Glucose 110 mg/dL (74-106); High Density Lipoprotein 45 mg/dL; Potassium 4.4 mmol/L (3.5-5.1); Protein, Total 7.7 g/dL (6.4-8.2); Sodium Level 139 mmol/L (136-145); Triglycerides 148 mg/dL; Very Low Density Lipoprotein 30 mg/dL (5-40)
[2022-07-27 13:21] LABS: CRP 3.93 mg/L (0.0-3.0)
[2022-07-27 15:06] LABS: Hemoglobin A1c 4.4 % (3.8-5.6)
[2022-07-28 13:07] LABS: Anti-Mitochondrial AB 25.9 Units (0.0-20.0)
== END | disposition home or self-care (01) ==
LOC: BIMLAB 11:01
PROVIDERS: Internal Medicine Gastroenterology; PCP Internal Medicine; Referring Provider Internal Medicine; Visit Provider Internal Medicine
DX: K74.3 Primary biliary cirrhosis (principal); E78.5 Hyperlipidemia, unspecified; R73.9 Hyperglycemia, unspecified
CPT/HCPCS: 80053; 80061; 82248; 83036; 83516; 85025; 86140

== ENCOUNTER → 2022-11-07 | Outpatient (CLI) | payer MEDICARE, MEDICAID, SELFPAY ==
[2022-11-07 12:02] LABS: Erythrocyte Sedimentation Rate 4 mm/hr (0-30)
[2022-11-07 12:06] LABS: Absolute Lymphocyte Count 1.33 X10^3/uL (0.83-4.51); Absolute Neutrophil Count 2.6 X10^3/uL (2.0-7.7); Basophil# 0.03 X10^3/uL; Basophil% 0.7 % (0-1); Eosinophil# 0.08 X10^3/uL; Eosinophils% 1.8 % (0-5); Hematocrit 38.2 % (37-47); Hemoglobin 13.3 g/dL (12.0-15.0); Lymphocyte # 1.33 X10^3/ul (0.83-4.51); Lymphocyte % 30.7 % (19-41); Mean Corp Hgb Conc 34.8 g/dL (32-36); Mean Corpuscular Hgb 30.3 pg (27.0-32.0); Mean Platelet Vol. 10.2 fl (6.2-12.0); Monocyte# 0.33 X10^3/uL; Monocyte% 7.6 % (0-10); NRBC Flagged by Analyzer 0 % (0-5); Neutrophil # 2.55 X10^3/uL (2.7-7.7); Platelet Count 167 K/mm3 (150-450); Red Blood Count 4.39 M/mm3 (4.2-5.4); White Blood Count 4.3 K/mm3 (4.4-11.0)
[2022-11-07 12:09] LABS: ALB/GLOB Ratio 1.1 RATIO (0.9-2.4); AST(SGOT) 20 U/L (15-37); Alanine Aminotransfer ALT/SGPT 30 U/L (13-56); Alkaline Phosphatase 123 U/L (45-117); Anion Gap 4 (5-15); BUN 14 mg/dL (7-18); CRP 7.75 mg/L (0.0-3.0); Calcium,Total 9.5 mg/dL (8.5-10.1); Chloride 109 mmol/L (98-107); EST Glomerular Filtration Rate 62 mL/min (>60); Est Glom Filt Rate - Afr Amer 74 mL/min (>60); Globulin 3.6 g/dL (2.2-4.2); Glucose 101 mg/dL (74-106); Potassium 4.1 mmol/L (3.5-5.1); Protein, Total 7.6 g/dL (6.4-8.2); Sodium Level 139 mmol/L (136-145)
== END | disposition home or self-care (01) ==
LOC: LAB 10:13
PROVIDERS: PCP Internal Medicine; Referring Provider Internal Medicine Gastroenterology; Visit Provider Internal Medicine Gastroenterology
DX: K74.3 Primary biliary cirrhosis (principal); M54.9 Dorsalgia, unspecified
CPT/HCPCS: 36415; 80053; 85025; 85652; 86140

== ENCOUNTER → 2023-03-29 | Outpatient (CLI) | payer MEDICARE, SELFPAY ==
--- NOTE | 2023-03-29 08:10 | US_ITS ---
STUDY: ABDOMINAL ULTRASOUND - RIGHT UPPER QUADRANT; ELASTOGRAPHY REASON FOR VISIT: Female, 53 years old. Primary biliary cirrhosis. TECHNIQUE: Ultrasound evaluation of the right upper quadrant was performed with real-time and static mcknight-scale imaging. Point quantification shear wave elastography was performed ([employer]). TECHNICAL QUALITY: Adequate. COMPARISON: Comparison is made with prior study dated March 18, 2022. FINDINGS: Liver: The liver measures 18.0 cm. There is increased echogenicity consistent with fatty infiltration. The bile ducts are within normal limits. There is hepatic color flow. The direction of portal flow is hepatopetal. There is no demonstrated mass lesion. Median liver stiffness measured 7.4 kPa. Gallbladder: Normal distended gallbladder. The gallbladder wall measures 1.8 mm. There is a negative sonographic Lisa''s sign. There is no pericholecystic fluid. There are no gallstones. Common Bile Duct (C.B.D.): The common bile duct measures 5.9 mm. Pancreas: There is increased echogenicity of the pancreas. There is no demonstrated pancreatic mass or cyst. Right Kidney: Normal size of the right kidney. The right kidney measures 10.2 cm x 5.1 cm x 3.6 cm. Normal renal cortex. The right cortex measures 1.0 cm. There is no demonstrated renal mass or cyst. There is no right hydronephrosis. US/ABD Limited w/ Elastography IMPRESSION: 1. Liver stiffness measures 7.4 kPa compatible with F2-F3 (Mild to moderate liver fibrosis) Metavir score. Electronically Signed: Jin Kingston MD at 11:21 EST ,
--- OUTSIDE RECORDS SUMMARY | 2023-03-29 08:39 | XMS RPT_ITS | CCD ---
Author Name Unknown Address [address] [place] [address] Organization [facility] Care Team Providers Care Pocket Marker Name Role Phone Junior Ahn MD Unavailable Josué Price Unavailable Unavailable PROVIDER, UNKNOWN Unavailable Unavailable Leonardo Parekh (Supervisor [employer]) Primary Care Provider [phone] Leonardo Parekh (Supervisor [employer]) Primary Care Provider Leonardo Parekh CNP Primary Care Provider [phone] IRON NGUYEN Attending Unavailable IRON NGUYEN Referring Unavailable LEONARDO PAREKH Primary Care Unavailable IRON NGUYEN Attending Unavailable IRON NGUYEN Referring Unavailable LEONARDO PAREKH Primary Care Unavailable Allergies Allergy Classification Reported Allergen(s) Allergy Type Date of Onset Reaction(s) Facility (9 sources) chicken allergenic extract; Translations: [POULTRY] allergy to substance 0 [facility] Work Phone: (10 sources) chicken allergenic extract Drug Allergy 6 [facility] Work Phone: (11 sources) Homeopathic Products; Translations: [HOMEOPATHIC PRODUCTS] Propensity to adverse reactions 6 [facility] Work Phone: (1 source) OTHER; Translations: [OTHER] Propensity to adverse reactions (disorder) 6 [facility] Medications Completed/Discontinued Medications Medication Drug Class(es) Dates Sig (Normalized) Sig (Original) acetaminophen 500 mg oral tablet (10 sources) acetaminophen (T YLENOL) 500 mg tablet Take 500 mg by mouth as needed. 0 Active Problems Active Problems Problem Classification Problem Date Documented Date Episodic/Chronic Adjustment disorders (10 sources) Family tension; Translations: [Reaction to severe stress, unspecified] Onset: 04-04-2016 04-04-2016 Chronic Anxiety disorders (19 sources) Phobic disorder; Translations: [Chronic anxiety] Onset: 12-18-2015 01-08-2016 Chronic Cancer of breast (20 sources) Carcinoma of breast ; Translations: [Malignant neoplasm of lower-outer quadrant of female breast] Onset: 12-18-2015 01-08-2016 Chronic Cancer of breast (1 source) History of malignant neoplasm of breast; Translations: [Personal history of malignant neoplasm of breast] Episodic Mood disorders (19 sources) Depressive disorder; Translations: [Recurrent major depressive episodes] Onset: 04-04-2016 01-18-2010 Chronic Other diseases of veins and lymphatics (10 sources) Lymphedema; Translations: [Lymphedema, not elsewhere classified] Onset: 07-18-2016 07-18-2016 Chronic Other liver diseases (2 sources) Alkaline phosphatase level - finding; Translations: [Abnormal levels of other serum enzymes] Episodic Other liver diseases (1 source) Serum alkaline phosphatase raised; Translations: [Abnormal levels of other serum enzymes] Episodic Other nervous system disorders (10 sources) Peripheral nerve disease ; Translations: [Polyneuropathy, unspecified] Onset: 12-27-2018 12-27-2018 Chronic Other nutritional; endocrine; and metabolic disorders (10 sources) Obese class II; Translations: [Obesity, unspecified] Onset: 12-27-2018 12-27-2018 Chronic Other nutritional; endocrine; and metabolic disorders (10 sources) Obese class I; Translations: [Obesity, unspecified] Onset: 12-29-2018 12-29-2018 Chronic Other upper respiratory infections (9 sources) Chronic maxillary sinusitis; Translations: [Chronic maxillary sinusitis] Onset: 01-18-2010 01-18-2010 Chronic Peripheral and visceral atherosclerosis (10 sources) Atherosclerosis of aorta; Translations: [Atherosclerosis of aorta] Onset: 04-28-2016 05-30-2016 Chronic Residual codes; unclassified (10 sources) Insomnia co-occurrent and due to medical condition; Translations: [Insomnia due to medical condition] Onset: 04-04-2016 04-04-2016 Chronic Screening or history of mental health and substance abuse (9 sources) Smoker; Translations: [Nicotine dependence, unspecified, uncomplicated] Onset: 12-18-2015 01-09-2016 Chronic Unclassified (9 sources) Aftercare ; Translations: [Encounter for other specified surgical aftercare] Onset: 01-26-2016 02-01-2016 Past or Other Problems Problem Classification Problem Date Documented Date Episodic/Chronic Abdominal hernia (20 sources) Hernia of anterior abdominal wall; Translations: [Ventral hernia without obstruction or gangrene] Onset: 12-27-2018 12-31-2018 Episodic Administrative/social admission (10 sources) Financial problem; Translations: [Problem related to housing and economic circumstances, unspecified] Onset: 04-04-2016 04-04-2016 Episodic Cardiac dysrhythmias (10 sources) Palpitations; Translations: [Palpitations] Onset: 05-30-2016 05-30-2016 Episodic Neoplasms of unspecified nature or uncertain behavior (9 sources) Estrogen receptor negative neoplasm; Translations: [Estrogen receptor negative status [ER-]] Onset: 12-18-2015 01-09-2016 Episodic Nonmalignant breast conditions (18 sources) Deformity of reconstructed breast; Translations: [Disproportion of reconstructed breast] Onset: 12-18-2015 02-01-2016 Episodic Open wounds of head; neck; and trunk (12 sources) Unspecified open wound of right breast, initial encounter; Translations: [Open wound of chest wall] Onset: 05-23-2017 08-24-2017 Episodic Other connective tissue disease (10 sources) Bilateral plantar fasciitis; Translations: [Plantar fascial fibromatosis] Onset: 02-20-2017 02-20-2017 Episodic Spondylosis; intervertebral disc disorders; other back problems (10 sources) Chronic low back pain; Translations: [Lumbago with sciatica, left side] Onset: 02-20-2017 02-20-2017 Episodic Unclassified (9 sources) Acquired absence of bilateral breasts and nipples; Translations: [Acquired absence of bilateral breasts and nipples] Onset: 12-18-2015 01-08-2016 Episodic Results Test Name Value Interpretation Reference Range Facil ity Vital Signs Date Time Vital Sign Value Performing Clinician Facility 12-07-2022 08:15-0400 Body height 153 cm Iron Martinjeff DO Work Phone: [facility] 12-07-2022 08:15-0400 Body temperature 97.11 [degF] Iron Masci DO Work Phone: [facility] 12-07-2022 08:15-0400 Body weight 89.36 kg Iron Masci DO Work Phone: [facility] 12-07-2022 08:15-0400 Diastolic blood pressure 73 mm[Hg] Iron Masci DO Work Phone: [facility] 12-07-2022 08:15-0400 Heart rate 77 /min Iron Masci DO Work Phone: [facility] 12-07-2022 08:15-0400 SaO2% (BldA) [Mass fraction] 98 % Iron Masci DO Work Phone: [facility] 12-07-2022 08:15-0400 Systolic blood pressure 114 mm[Hg] Iron Masci DO Work Phone: [facility] 06-06-2022 09:36-0400 Body height 153.3 cm Iron Masci DO Work Phone: [facility] 06-06-2022 09:36-0400 Body temperature 96.8 [degF] Iron Masci DO Work Phone: [facility] 06-06-2022 09:36-0400 Body weight 84.14 kg Iron Masci DO Work Phone: [facility] 06-06-2022 09:36-0400 Diastolic blood pressure 61 mm[Hg] Iron Masci DO Work Phone: [facility] 06-06-2022 09:36-0400 Heart rate 71 /min Iron Masci DO Work Phone: [facility] 06-06-2022 09:36-0400 SaO2% (BldA) [Mass fraction] 99 % Iron Masci DO Work Phone: [facility] 06-06-2022 09:36-0400 Systolic blood pressure 119 mm[Hg] Iron Masci DO Work Phone: [facility] 08-30-2021 10:48-0400 Body height 153 cm Iron Masci DO Work Phone: [facility] 08-30-2021 10:48-0400 Body temperature 97.7 [degF] Iron Masci DO Work Phone: [facility] 08-30-2021 10:48-0400 Body weight 91.17 kg Iron Masci DO Work Phone: [facility] 08-30-2021 10:48-0400 Diastolic blood pressure 76 mm[Hg] Iron Masci DO Work Phone: [facility] 08-30-2021 10:48-0400 Heart rate 77 /min Iron Masci DO Work Phone: [facility] 08-30-2021 10:48-0400 Systolic blood pressure 122 mm[Hg] Iron Masci DO Work Phone: [facility] 03-08-2016 15:41-0500 BMI (Body Mass Index) 23.54 kg/m2 [facility] Work Phone: 03-08-2016 15:41-0500 Body Temperature 98.5 [degF] Junior Ahn MD [facility] Work Phone: 03-08-2016 15:41-0500 BSA (Body Surface Area) 1.55 m2 [facility] Work Phone: 03-08-2016 15:41-0500 Height 154.94 cm [facility] Work Phone: 03-08-2016 15:41-0500 Pulse (Heart Rate) 90 /min [facility] Work Phone: 03-08-2016 15:41-0500 Respiratory Rate 18 /min [facility] Work Phone: 03-08-2016 15:41-0500 Weight 56.52 kg [facility] Work Phone: 02-10-2016 10:11-0500 BP Diastolic 83 mm[Hg] [facility] Work Phone: 02-10-2016 10:11-0500 BP Systolic 120 mm[Hg] Junior Ahn MD [facility] Work Phone: Encounters Encounter Date Encounter Type Care Provider Facility Start: 12-07-2022 End: 12-07-2022 ambulatory IRON Ramachandran WENDY Facility:[facility] Start: 12-07-2022 End: 12-07-2022 ambulatory Iron Duarte Nguyen DO Work Phone: Hematology/Oncology Procedures Date Procedure Procedure Detail Performing Clinician Start: 09-10-2021 Bone &/joint imaging whole body Iron Duarte Nguyen DO Work Phone: Start: 02-10-2020 Colonoscopy Iron Wendy DO Work Phone: Start: 01-23-2018 Lipid 1996 panel - S radha or Plasma Iron Nguyen DO Work Phone: Start: 04-04-2016 History of mastectomy Status post ma stectomy Iron Wendy DO Work Phone: Start: 03-08-2016 End: 05-01-2017 Follow Up Appt 3 months Junior Ahn MD Start: 02-10-2016 End: 05-01-2017 Follow up Appt 3 weeks Junior Ahn MD Start: 01-26-2016 End: 05-01-2017 Follow Up Appt 2 weeks Junior Ahn MD Start: 12-18-2015 End: 05-01-2017 Follow Up Appt Other Junior Ahn MD Plan of Treatment Date Care Activity Detail Author Start: 08-30-2024 DIABETES SCREEN DIABETES SCREEN [facility] Start: 08-30-2024 Diabetes Screening Diabetes Screenin g [facility] Start: 01-23-2023 Lipid 1996 panel - S radha or Plasma Lipid Screening [facility] Start: 01-23-2023 LIPID SCREEN LIPID SCREEN [facility] Start: 11-18-2022 Influenza vaccination Influenza Vacc ine (#1) [facility] Start: 11-18-2021 Influenza vaccination C [facility] Start: 08-30-2021 End: 10-30-2021 25-hydroxyvitamin D3 [Mass/volume] in Serum or Plasma [facility] Work Phone: Immunizations Immunization Date Immunization Notes Care Provider Maverick montes de oca 02-19-2020 influenza, injectabl e, quadrivalent, preservative free Iron Nguyen DO Work Phone: [facility] 02-19-2020 influenza virus vaccine, unspecified formulation Iron Nguyen DO Work Phone: [facility] 08-29-2011 tetanus toxoid, redu patricia diphtheria toxoid, and acellular pertussis vaccine, adsorbed Iron Nguyen DO Work Phone: [facility] Work Phone: Payers Date Payer Category Payer Medicare [id number] 2021 Unknown ANTHEM BLUE [facility] AND BLUE [facility] ANTHEM MEDIBLUE O [id number] 2021-Present [phone] [address] [place] [address] O [id number] 2021 Medicare [id number] 2021 Medicare [id number] Unknown Social History Date Type Detail Facility Start: 02-04-2016 End: 02-20-2017 Tobacco smoking status NHIS Ex-smoker [facility] Work Phone: End: 01-02-2016 History of tobacco use Current smoker [facility] Work Phone: End: 01-02-2016 History of tobacco use Cigarette Smoker [facility] Work Phone: Start: 02-04-2016 End: 12-07-2022 Cigarettes smoked current (pack per day) - Reported 1 [facility] Start: 02-04-2016 End: 02-20-2017 Tobacco use and exposure Smokeless tobacco non-user [facility] Work Phone: Start: 08-30-2021 End: 12-07-2022 Alcohol intake Current non-drinker of alcohol (finding) [facility] Start: 02-04-2016 History SDOH Alcohol Comment Rare. [facility] Start: 02-16-2016 Tobacco Comment Pt smoked on & off x 30 years. [facility] Start: 1970 Sex Assigned At Not on file C [facility] Start: 08-21-2021 End: 08-31-2021 Exposure to SARS-CoV-2 (event) Unable to assess [facility] Work Phone: Start: 09-05-2021 End: 09-15-2021 Exposure to SARS-CoV-2 (event) Not sure [facility] Start: 02-26-2021 End: 12-07-2022 Tobacco use panel [facility] Adult Depression Screening Assessment 4 [facility] Start: 09-10-2021 Sexual orientation Heterosexual (jeri waterman) [facility] Medical Equipment Procedure Code Equipment Code Equipment Origin al Text Equipment Identifier Dates Mesh Parietene D s [id number] - [id number] Start: 12-31-2018 Mesh Parietene D s [id number] - [id number] Start: 12-31-2018 Clinical Notes 04-25-2016 to 12-07-2022 Iron Nguyen DO - 12/07/2022 9:06 AM EDTPaul Duarte Nguyen DO - 06/06/2022 10:18 AM EDTTelephone Encounter - [facility] - 04/21/2022 4:32 PM Chad Nguyen DO - 08/30/2021 11:03 AM EDT Note Date & Type Note Facility 12-07-2022 Note HNO ID: [id number] Author: Iron Nguyen DO Service: ? Author Type: Physician Type: Progress Notes Filed: 12/07/2022 9:22 AM Note Text: Diagnosis: 1) Triple negative early stage breast cancer. HPI: The patient is a 52 yo premenopausal female (at time of diagnosis) [...] demonstrated fibroadenoma. Negative for both ER and MN. HER-2 was interpreted as 2+, granular. Subsequent FISH testing revealed it to be nonamplified. MRI of breasts 12/28/2015: IMPRESSION: 1. 1.3 cm enhancing mass at 7:00, at posterior depth, in the right breast represents the biopsy proven invasive ductal carcinoma. Continued surgical/oncologic management is necessary. 2. Four additional suspicious enhancing masses (6:00, anterior depth; 9:00, posterior depth; 9:00 posterior depth; central access, anterior depth) in the right breast. If breast conservation is desired, additional biopsy/biopsies is/are recommended. Per the electronic medical record, the patient is currently planning for mastectomy. 3. Suspicious 0.6 cm enhancing mass at 1:00, at middle depth, in the left breast. Second look ultrasound with subsequent biopsy is recommended. If no sonographic correlate is identified, then an MRI guided biopsy is recommended. 4. Suspicious 0.6 cm enhancing mass at 6:00, at posterior depth, in the left breast. Second look ultrasound with subsequent biopsy is recommended. If no sonographic correlate is identified, then an MRI guided biopsy is recommended. 5. No MRI evidence of internal mammary or axillary [...] Presents for ongoing oncologic management. Interim history: Diagnosed with PBC. Started on ursodiol and colestipol. Painful neuropathy of the feet--stable.. Getting injections in lumbar spine helps her sciatica and neuropathy--q 3 months. Hands have neuropathy but not as bad as feet. Remains on Lyrica. Has had EGDs and no indication of large fiber neuropathy. Possibly now related to PBC. No symptoms of cardiomyopathy including chest pain/pressure, palpitations, shortness of breath at rest or with exertion, lower extremity swelling/edema, PND or orthopnea. PMH, medications and allergies as below personally reviewed by me today. Any changes documented in appropriate section. ROS: Constitutional: Denies episodes of fever and night sweats. Neuro: No DUKE. No dizziness or imbalance. HEENT: No recent change in voice, vision [...] rash. Denies jaundice and diffuse pruritis. Heme: No unusual bleeding or unexplained bruising. Psych: PHYSICAL EXAM: Vitals: Blood pressure 114/73, pulse 77, temperature 36.2 ?C (97.1 ?F), temperature source Temporal, height 153 cm (5' 0.25 ), weight 89.4 kg (197 lb), last menstrual period 08/31/2015, SpO2 98 %. Well-appearing and in no acute distress. EYES: Sclerae are anicteric bilaterally. LYMPHATIC: There is no palpable cervical, supracla (more content not included)... [facility] 12-07-2022 History of Presen t illness Narrative Diagnosis: 1) Triple negative early stage breast cancer. HPI: The patient is a 52 yo premenopausal female (at time of diagnosis) [...] demonstrated fibroadenoma. Negative for both ER and MN. HER-2 was interpreted as 2+, granular. Subsequent FISH testing revealed it to be nonamplified. MRI of breasts 12/28/2015: IMPRESSION: 1. 1.3 cm enhancing mass at 7:00, at posterior depth, in the right breast represents the biopsy proven invasive ductal carcinoma. Continued surgical/oncologic management is necessary. 2. Four additional suspicious enhancing masses (6:00, anterior depth; 9:00, posterior depth; 9:00 posterior depth; central access, anterior depth) in the right breast. If breast conservation is desired, additional biopsy/biopsies is/are recommended. Per the electronic medical record, the patient is currently planning for mastectomy. 3. Suspicious 0.6 cm enhancing mass at 1:00, at middle depth, in the left breast. Second look ultrasound with subsequent biopsy is recommended. If no sonographic correlate is identified, then an MRI guided biopsy is recommended. 4. Suspicious 0.6 cm enhancing mass at 6:00, at posterior depth, in the left breast. Second look ultrasound with subsequent biopsy is recommended. If no sonographic correlate is identified, then an MRI guided biopsy is recommended. 5. No MRI evidence of internal mammary or axillary [...] Presents for ongoing oncologic management. Interim history: Diagnosed with PBC. Started on ursodiol and colestipol. Painful neuropathy of the feet--stable.. Getting injections in lumbar spine helps her sciatica and neuropathy--q 3 months. Hands have neuropathy but not as bad as feet. Remains on Lyrica. Has had EGDs and no indication of large fiber neuropathy. Possibly now related to PBC. No symptoms of cardiomyopathy including chest pain/pressure, palpitations, shortness of breath at rest or with exertion, lower extremity swelling/edema, PND or orthopnea. PMH, medications and allergies as below personally reviewed by me today. Any changes documented in appropriate section. ROS: Constitutional: Denies episodes of fever and night sweats. Neuro: No DUKE. No dizziness or imbalance. HEENT: No recent change in voice, vision [...] rash. Denies jaundice and diffuse pruritis. Heme: No unusual bleeding or unexplained bruising. Psych: PHYSICAL EXAM: Vitals: Blood pressure 114/73, pulse 77, temperature 36.2 C (97.1 F), temperature source Temporal, height 153 cm (5' 0.25 ), weight 89.4 kg (197 lb), last menstrual period 08/31/2015, SpO2 98 %. Well-appearing and in no acute distress. EYES: Sclerae are anicteric bilaterally. LYMPHATIC: There is no palpable cervical, supraclavicular or axillary adenopathy. RESPIRATORY: Inspiratory breath sounds are of normal intensity in all [place]. No rales, wheezes or rhonchi. CARDIOVASCULAR: Rhythm is regular. Normal intensity S1/S2. 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 Right--graft from back and abdomen with no suspicious mass or nodule. Left--no implant. No chest wall mass or nodule. ABDOMEN: No abdominal distention. No tenderness. Extremities: No swelling or edema. SKIN: No jaundice. ASSESSMENT/PLAN: (C50.511) Breast cancer of lower-outer quadrant of right female breast (HCC) (primary encounter diagnosis) Assessment: -pT1c (1.5 cm; grade 3; no ALI) pN0(sln) MX ER/MN negative, HER-2 nonamplified invasive ductal carcinoma the right breast. -Nearly 7 years from surgery. -Genetic testing negative. -No concerning symptoms or exam findings. Plan: -OV in about 12 months. -She will follow-up with chronic pain management for history of sciatica and neuropathy. Portions of this documentation were copied and pasted from previous office visit notes in order to provide a cohesive continuity of the history. The note has been reviewed and edited and updated as necessary. I spent a total of 15 minutes on the date of the service which included [id number] patient care, completing clinical documentation, obtaining and/or reviewing separately obtained history, performing a medically appropriate examination, communicating with other HCPs (not separately reported), and communicating results to the patient/family/caregiver. Iron Nguyen DO documented in this encounter [facility] 06-06-2022 Note HNO ID: [id number] Author: Iron Nguyen DO Service: ? Author Type: Physician Type: Progress Notes Filed: 06/06/2022 4:31 PM Note Text: Diagnosis: 1) Triple negative early stage breast cancer. HPI: The patient is a 52 yo premenopausal female (at time of diagnosis) [...] demonstrated fibroadenoma. Negative for both ER and MN. HER-2 was interpreted as 2+, granular. Subsequent FISH testing revealed it to be nonamplified. MRI of breasts 12/28/2015: IMPRESSION: 1. 1.3 cm enhancing mass at 7:00, at posterior depth, in the right breast represents the biopsy proven invasive ductal carcinoma. Continued surgical/oncologic management is necessary. 2. Four additional suspicious enhancing masses (6:00, anterior depth; 9:00, posterior depth; 9:00 posterior depth; central access, anterior depth) in the right breast. If breast conservation is desired, additional biopsy/biopsies is/are recommended. Per the electronic medical record, the patient is currently planning for mastectomy. 3. Suspicious 0.6 cm enhancing mass at 1:00, at middle depth, in the left breast. Second look ultrasound with subsequent biopsy is recommended. If no sonographic correlate is identified, then an MRI guided biopsy is recommended. 4. Suspicious 0.6 cm enhancing mass at 6:00, at posterior depth, in the left breast. Second look ultrasound with subsequent biopsy is recommended. If no sonographic correlate is identified, then an MRI guided biopsy is recommended. 5. No MRI evidence of internal mammary or axillary [...] for ongoing oncologic management. Interim history: She had a bone scan on 09/10/2021 for an increased alkaline phosphatase. There was no evidence of osteoblastic metastases. Fractionation of alkaline phosphatase revealed liver predominant enzyme. US 09/15/2021 revealed increased echogenicity of the liver consistent with fatty infiltration. Bile ducts were within normal limits. There was hepatic color-flow. The direction of portal flow is hepatopetal. There is no masses. Gallbladder was distended. But normal. It measured 3 mm there was a positive sonographic Lisa sign with no pericholecystic fluid and no gallstones. Common bile duct measured 5 mm. The pancreas was noted to be normal in size of the body head and tail. There was normal echogenicity of the pancreas. No demonstrated pancreatic mass or cyst. Was seen by Dr. Brito and diagnosed with PBC. Started on ursodiol and colestipol. Painful neuropathy of the feet. Getting injections in lumbar spine helps her sciatica and neuropathy. Hands have neuropathy but not as bad as feet. Remains on Lyrica. Has had EGDs and no indication of large fiber neuropathy. Possibly now related to PBC. No symptoms of cardiomyopathy including chest pain/pressure, palpitations, shortness of breath at rest or with exertion, lower extremity swelling/edema, PND or orthopnea. PMH, medications and allergies as below personally reviewed by me today. Any changes documented in appropriate section. ROS: Constitutional: Denies episodes of fever and night sweats. Neuro: No DUKE. No dizziness or imbalance. HEENT: No recent change in voice, vision or hearing. Resp: Denies cough, wheeze and hemoptysis. CVS: See ab (more content not included)... [facility] 06-06-2022 History of Presen t illness Narrative Diagnosis: 1) Triple negative early stage breast cancer. HPI: The patient is a 52 yo premenopausal female (at time of diagnosis) [...] demonstrated fibroadenoma. Negative for both ER and MN. HER-2 was interpreted as 2+, granular. Subsequent FISH testing revealed it to be nonamplified. MRI of breasts 12/28/2015: IMPRESSION: 1. 1.3 cm enhancing mass at 7:00, at posterior depth, in the right breast represents the biopsy proven invasive ductal carcinoma. Continued surgical/oncologic management is necessary. 2. Four additional suspicious enhancing masses (6:00, anterior depth; 9:00, posterior depth; 9:00 posterior depth; central access, anterior depth) in the right breast. If breast conservation is desired, additional biopsy/biopsies is/are recommended. Per the electronic medical record, the patient is currently planning for mastectomy. 3. Suspicious 0.6 cm enhancing mass at 1:00, at middle depth, in the left breast. Second look ultrasound with subsequent biopsy is recommended. If no sonographic correlate is identified, then an MRI guided biopsy is recommended. 4. Suspicious 0.6 cm enhancing mass at 6:00, at posterior depth, in the left breast. Second look ultrasound with subsequent biopsy is recommended. If no sonographic correlate is identified, then an MRI guided biopsy is recommended. 5. No MRI evidence of internal mammary or axillary [...] for ongoing oncologic management. Interim history: She had a bone scan on 09/10/2021 for an increased alkaline phosphatase. There was no evidence of osteoblastic metastases. Fractionation of alkaline phosphatase revealed liver predominant enzyme. US 09/15/2021 revealed increased echogenicity of the liver consistent with fatty infiltration. Bile ducts were within normal limits. There was hepatic color-flow. The direction of portal flow is hepatopetal. There is no masses. Gallbladder was distended. But normal. It measured 3 mm there was a positive sonographic Lisa sign with no pericholecystic fluid and no gallstones. Common bile duct measured 5 mm. The pancreas was noted to be normal in size of the body head and tail. There was normal echogenicity of the pancreas. No demonstrated pancreatic mass or cyst. Was seen by Dr. Brito and diagnosed with PBC. Started on ursodiol and colestipol. Painful neuropathy of the feet. Getting injections in lumbar spine helps her sciatica and neuropathy. Hands have neuropathy but not as bad as feet. Remains on Lyrica. Has had EGDs and no indication of large fiber neuropathy. Possibly now related to PBC. No symptoms of cardiomyopathy including chest pain/pressure, palpitations, shortness of breath at rest or with exertion, lower extremity swelling/edema, PND or orthopnea. PMH, medications and allergies as below personally reviewed by me today. Any changes documented in appropriate section. ROS: Constitutional: Denies episodes of fever and night sweats. Neuro: No DUKE. No dizziness or imbalance. HEENT: No recent change in voice, vision [...] rash. Denies jaundice and diffuse pruritis. Heme: No unusual bleeding or unexplained bruising. Psych: PHYSICAL EXAM: Vitals: Blood pressure 119/61, pulse 71, temperature 36 C (96.8 F), height 153.3 cm (5' 0.34 ), weight 84.1 kg (185 lb 8 oz), last menstrual period 08/31/2015, SpO2 99 %. Well-appearing and in no acute distress. EYES: Sclerae are anicteric bilaterally. LYMPHATIC: There is no palpable cervical, supraclavicular or axillary adenopathy. RESPIRATORY: Inspiratory breath sounds are of normal intensity in all [place]. No rales, wheezes or rhonchi. CARDIOVASCULAR: Rhythm is regular. Normal intensity S1/S2. 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 Right--graft from back and abdomen with no suspicious mass or nodule. Left--no implant. No chest wall mass or nodule. ABDOMEN: No abdominal distention. No tenderness. Extremities: No swelling or edema. SKIN: No jaundice or rash. No petechiae. 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 No focal motor weakness. Patellar DTRs are slightly diminished but symmetric. ASSESSMENT/PLAN: (C50.511) Breast cancer of lower-outer quadrant of right female breast (HCC) (primary encounter diagnosis) Assessment: -pT1c (1.5 cm; grade 3; no ALI) pN0(sln) MX ER/MN negative, HER-2 nonamplified invasive ductal carcinoma the right breast. -Now over 5 years out from completing adjuvant chemotherapy. -Genetic testing negative. -No concerning symptoms or exam findings. -Discussed getting screening mammogram of right breast but it had 2 different flap procedures so will discuss with radiology. Plan: -OV in about 6 months. Portions of this documentation were copied and pasted from previous office visit notes in order to provide a cohesive continuity of the history. The note has been reviewed and edited and updated as necessary. I spent a total of 25 minutes on the date of the service which included preparing to see the patient, [id number] patient care, completing clinical documentation, obtaining and/or reviewing separately obtained history, performing a medically appropriate examination, and counseling and educating the patient/family/caregiver. Iron Nguyen DO documented in this encounter [facility] 04-21-2022 Miscellaneous Notes Apt was scheduled by another PSS I called and let Sharon a message to call our office back to receive the below information from and then reschedule her in person office visit to a date/time that work well for her. Once patient has been given information and the appointment has been rescheduled please note and close encounter. Evelia Elmore Pss Not appropriate for virtual visit. I need to examine the patient who has a history of breast cancer. Please reschedule her when good for her to come to the office. Iron Nguyen DO Patient called stating she is unable to come into the appointment tomorrow with Dr. Nguyen and is asking if this appointment is appropriate for a virtual visit. Please advise patient. documented in this encounter [facility] 09-21-2021 Miscellaneous Notes Patient was in [facility] ER 09/15/2021. ER summary and RUQ US results printed and placed on Dr. Nguyen's desk. Patient does not have to have another US here. I left a detailed message on patient's identified VM informing her of this and that we sent a referral to Dr. Brito at [facility]. Patient ot contact office for any questions. Alise Murillo LPN 2nd attempt on contacting pt to have ultra sound rescheduled, went to , left a message. Makenzie iRdley Will fax over referral to office, looks like patient has cancelled US needed. Tried contacting pt to get this rescheduled, went to , left a message for pt to return call. Makenzie Ridley Laura Redd Pss 09/15/21 11:32 AM Note Spoke with the patient scheduled RUQ ultrasound here in [place] for 09/22 and patient is requesting Hepatology referral be sent to [facility] Dr Brito as she is unable to travel outside of [place]. 2nd attempt, MC message sent. Makenzie Ridley Tried contacting pt, went to , left a message for patient to return call. Makenzie Ridley Sorry, I do not know how this got dropped from my in basket before I addressed it. Please schedule her for an ultrasound of the liver and also a consult with hepatology. We could also make referral to Dr. Brito at [facility] if hepatology is booking out a ways. Iron Nguyen DO Patient contacted office concerned with lab results from 09/10/2021, specifically her liver fraction. Alise Murillo LPN documented in this encounter [facility] 09-21-2021 Miscellaneous Notes ER summary and RUQ US results printed and placed on Dr. Nguyen's desk. Patient does not have to have another US here. I left a detailed message on patient's identified VM informing her of this and that we sent a referral to Dr. Brito at [facility]. Patient ot contact office for any questions. Alise Murillo LPN Pt was in [facility] ER visit 09/15/21. She stated she did have a RUQ US while at the ER. She would like to know if she would still need to do that US here for Dr. Nguyen documented in this encounter [facility] 09-10-2021 Miscellaneous Notes Left detailed VM of normal scan on her VM. Saadia Ibrahim LPN Good news. Can let her know bone scan was negative for signs of cancer in the bones. Iron Nguyen DO documented in this encounter [facility] 08-31-2021 Miscellaneous Notes Left Vm with instructions regarding supplement. sent [employer] ([email or web address]t message. Saadia Ibrahim LPN Vit D is a little low as well. Advise her to start taking a calcium supplement with vit D such as Citracal twice daily. Iron Nguyen DO Left detailed message on patient's identified VM giving patient all information and asking her to contact office to schedule. Dr. Nguyen also sent a [employer] message explaining this. Alise Murillo LPN Can let her know that her alkaline phosphatase is confirmed to be mildly elevated. Suggest repeat blood test to try to fractionate to determine if this is coming from bone liver or other source. Also obtain bone scan. Iron Nguyen DO documented in this encounter [facility] 08-30-2021 History of Presen t illness Narrative Diagnosis: 1) Triple negative early stage breast cancer. HPI: The patient is a 51 yo premenopausal female (at time of diagnosis) [...] demonstrated fibroadenoma. Negative for both ER and MN. HER-2 was interpreted as 2+, granular. Subsequent FISH testing revealed it to be nonamplified. MRI of breasts 12/28/2015: IMPRESSION: 1. 1.3 cm enhancing mass at 7:00, at posterior depth, in the right breast represents the biopsy proven invasive ductal carcinoma. Continued surgical/oncologic management is necessary. 2. Four additional suspicious enhancing masses (6:00, anterior depth; 9:00, posterior depth; 9:00 posterior depth; central access, anterior depth) in the right breast. If breast conservation is desired, additional biopsy/biopsies is/are recommended. Per the electronic medical record, the patient is currently planning for mastectomy. 3. Suspicious 0.6 cm enhancing mass at 1:00, at middle depth, in the left breast. Second look ultrasound with subsequent biopsy is recommended. If no sonographic correlate is identified, then an MRI guided biopsy is recommended. 4. Suspicious 0.6 cm enhancing mass at 6:00, at posterior depth, in the left breast. Second look ultrasound with subsequent biopsy is recommended. If no sonographic correlate is identified, then an MRI guided biopsy is recommended. 5. No MRI evidence of internal mammary or axillary [...] for ongoing oncologic management. Interim history: She offers no complaints today but she said in the last couple months she was found to have an elevated alkaline phosphatase and her plastic surgeon ran a bunch of tests and did not find anything significant. She said her family doctor told her the same thing that it was elevated but no specific findings. She has bilateral leg pain that is unchanged. Mostly her feet hurt all the time but the legs hurt variably. She ambulates with a cane because she does have some frequent stumbling. Overall the pain in her legs has not changed. She also has pain in the hands and that she was been stable. No other musculoskeletal pain. No symptoms of cardiomyopathy including chest pain/pressure, palpitations, shortness of breath at rest or with exertion, lower extremity swelling/edema, PND or orthopnea. PMH, medications and allergies as below personally reviewed by me today. Any changes documented in appropriate section. ROS: Constitutional: Denies episodes of fever and night sweats. Neuro: No DUKE. No dizziness or imbalance. HEENT: No recent change in voice, vision [...] rash. Denies jaundice and diffuse pruritis. Heme: No unusual bleeding or unexplained bruising. Psych: See above. PHYSICAL EXAM: Vitals: Blood pressure 122/76, pulse 77, temperature 36.5 C (97.7 F), temperature source Temporal, height 153 cm (5' 0.25 ), weight 91.2 kg (201 lb), last menstrual period 08/31/2015. Well-appearing and in no acute distress. EYES: Sclerae are anicteric bilaterally. NECK: Supple. LYMPHATIC: There is no palpable cervical, supraclavicular adenopathy. RESPIRATORY: Inspiratory breath sounds are of normal intensity in all [place]. No rales, wheezes or rhonchi. CARDIOVASCULAR: Rhythm is regular. Normal intensity S1/S2. 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 Right--graft from back and abdomen with no suspicious mass or nodule. Left--no implant. No chest wall mass or nodule. ABDOMEN: No abdominal distention. No tenderness. Extremities: No swelling or edema. SKIN: No jaundice or rash. No petechiae. 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 No focal motor weakness. Patellar DTRs are slightly diminished but symmetric. ASSESSMENT/PLAN: (C50.511) Breast cancer of lower-outer quadrant of right female breast (HCC) (primary encounter diagnosis) Assessment: -pT1c (1.5 cm; grade 3; no ALI) pN0(sln) MX ER/MN negative, HER-2 nonamplified invasive ductal carcinoma the right breast. -Now over 5 years out from completing adjuvant chemotherapy. -Genetic testing negative. -No concerning symptoms or exam findings. Plan: -Will check labs including Alk phos. further work-up pending results. -OV in about 6 months. Portions of this documentation were copied and pasted from previous office visit notes in order to provide a cohesive continuity of the history. The note has been reviewed and edited and updated as necessary. Iron Nguyen DO documented in this encounter [facility] documented as of this encounter (statuses as of 08/30/2021) [facility] History of Past illness Narrative* Problem Noted Date Resolved Date History of Clostridium difficile 04/25/2016 02/20/2017 Overview: Admitted [facility] 04/20-04/22/16. Treated with oral vancomycin Chest wall pain following surgery 04/04/2016 06/15/2016 Fibroid uterus 09/01/2015 04/04/2016 Lumbar sprain and strain 09/09/2011 016 SI (sacroiliac) joint inflammation 09/09/2011 02/04/2016 Lumbar radicular pain 09/09/2011 02/04/2016 Sciatica of right side 08/02/2011 6 Nontoxic uninodular goiter 03/07/200602/20 documented as of this encounter (statuses as of 08/30/2021) [facility] History of Past illness Narrative* Problem Noted Date Resolved Date History of Clostridium difficile 04/25/2016 02/20/2017 Overview: Admitted [facility] 04/20-04/22/16. Treated with oral vancomycin Chest wall pain following surgery 04/04/2016 06/15/2016 Fibroid uterus 09/01/2015 04/04/2016 Lumbar sprain and strain 09/09/2011 016 SI (sacroiliac) joint inflammation 09/09/2011 02/04/2016 Lumbar radicular pain 09/09/2011 02/04/2016 Sciatica of right side 08/02/2011 6 Nontoxic uninodular goiter 03/07/200602/20 documented as of this encounter (statuses as of 08/31/2021) [facility] of Past [facility] Narrative* Problem Noted Date Resolved Date History of Clostridium difficile 04/25/2016 02/20/2017 Overview: Admitted [facility] 04/20-04/22/16. Treated with oral vancomycin Chest wall pain following surgery 04/04/2016 06/15/2016 Fibroid uterus 09/01/2015 04/04/2016 Lumbar sprain and strain 09/09/2011 016 SI (sacroiliac) joint inflammation 09/09/2011 02/04/2016 Lumbar radicular pain 09/09/2011 02/04/2016 Sciatica of right side 08/02/2011 6 Nontoxic uninodular goiter 03/07/200602/20 documented as of this encounter (statuses as of 09/10/2021) [facility] of Past [facility] Narrative* Problem Noted Date Resolved Date History of Clostridium difficile 04/25/2016 02/20/2017 Overview: Admitted [facility] 04/20-04/22/16. Treated with oral vancomycin Chest wall pain following surgery 04/04/2016 06/15/2016 Fibroid uterus 09/01/2015 04/04/2016 Lumbar sprain and strain 09/09/2011 016 SI (sacroiliac) joint inflammation 09/09/2011 02/04/2016 Lumbar radicular pain 09/09/2011 02/04/2016 Sciatica of right side 08/02/2011 6 Nontoxic uninodular goiter 03/07/200602/20 documented as of this encounter (statuses as of 09/11/2021) [facility] Narrative* Problem Noted Date Resolved Date History of Clostridium difficile 04/25/2016 02/20/2017 Overview: Admitted [facility] 04/20-04/22/16. Treated with oral vancomycin Chest wall pain following surgery 04/04/2016 06/15/2016 Fibroid uterus 09/01/2015 04/04/2016 Lumbar sprain and strain 09/09/2011 016 SI (sacroiliac) joint inflammation 09/09/2011 02/04/2016 Lumbar radicular pain 09/09/2011 02/04/2016 Sciatica of right side 08/02/2011 6 Nontoxic uninodular goiter 03/07/200602/20 documented as of this encounter (statuses as of 09/21/2021) [facility] Narrative* Problem Noted Date Resolved Date History of Clostridium difficile 04/25/2016 02/20/2017 Overview: Admitted [facility] 04/20-04/22/16. Treated with oral vancomycin Chest wall pain following surgery 04/04/2016 06/15/2016 Fibroid uterus 09/01/2015 04/04/2016 Lumbar sprain and strain 09/09/2011 016 SI (sacroiliac) joint inflammation 09/09/2011 02/04/2016 Lumbar radicular pain 09/09/2011 02/04/2016 Sciatica of right side 08/02/2011 6 Nontoxic uninodular goiter 03/07/200602/20 documented as of this encounter (statuses as of 09/21/2021) [facility] Narrative* Problem Noted Date Resolved Date History of Clostridium difficile 04/25/2016 02/20/2017 Overview: Admitted [facility] 04/20-04/22/16. Treated with oral vancomycin Chest wall pain following surgery 04/04/2016 06/15/2016 Fibroid uterus 09/01/2015 04/04/2016 Lumbar sprain and strain 09/09/2011 016 SI (sacroiliac) joint inflammation 09/09/2011 02/04/2016 Lumbar radicular pain 09/09/2011 02/04/2016 Sciatica of right side 08/02/2011 6 Nontoxic uninodular goiter 03/07/200602/20 documented as of this encounter (statuses as of 04/22/2022) [facility] Narrative* Problem Noted Date Resolved Date History of Clostridium difficile 04/25/2016 02/20/2017 Overview: Admitted [facility] 04/20-04/22/16. Treated with oral vancomycin Chest wall pain following surgery 04/04/2016 06/15/2016 Fibroid uterus 09/01/2015 04/04/2016 Lumbar sprain and strain 09/09/2011 016 SI (sacroiliac) joint inflammation 09/09/2011 02/04/2016 Lumbar radicular pain 09/09/2011 02/04/2016 Sciatica of right side 08/02/2011 6 Nontoxic uninodular goiter 03/07/200602/20 documented as of this encounter (statuses as of 06/07/2022) [facility] N[facility]ative* Problem Noted Date Diagnosed Date Resolved Date History of Clostridium difficile 04/25/2016 02/20/2017 Overview: Admitted [facility] 2-04/22/16. Treated with oral vancomycin Chest wall pain following surgery 04/04/2016 06/15/2016 Fibroid uterus 09/01/2015 04/04/2016 Lumbar sprain and strain 09/09/2011 SI (sacroiliac) joint inflammation 09/09/2011 02/04/2016 Lumbar radicular pain 09/09/20112015 Sciatica of right side 08/02/201102/03 Nontoxic uninodular goiter 03/07/2006 1 04/23/2016 documented as of this encounter (statuses as of 12/07/2022) [facility] Diagnosis Malignant neoplasm of lower-outer quadrant of right breast of female, estrogen receptor negative (HCC)- Primary [facility] Diagnosis Abnormal alkaline phosphatase test- Primary Other nonspecific abnormal serum enzyme levels [facility] Diagnosis Abnormal alkaline phosphatase test Other nonspecific abnormal serum enzyme levels [facility] Diagnosis Elevated serum alkaline phosphatase level- Primary Other nonspecific abnormal serum enzyme levels [facility] Diagnosis History of breast cancer- Primary Personal history of malignant neoplasm of breast [facility] Diagnosis Malignant neoplasm of lower-outer quadrant of right breast of female, estrogen receptor negative (HCC)- Primary documented in this encounter [facility] for referral (narrative)* Diagnostic Procedure Only (Routine) - Pending Review Specialty Diagnoses / Procedures Referred By Winston chen Referred To Contact MOLECULAR & FUNCTIONAL IMAGING Diagnoses Abnormal alkaline phosphatase test Procedures NM BONE WHOLE BODY BONE &/JOINT IMAGING WHOLE BODY Iron Nguyen DO [address] [place] [address] Molecular & Functional Imaging [address] [place] [address] Referral ID Status Reason Start Date Expiration Date Visits Requested Visits Authorized [id number] Pending Review Auto-Generat ed Referral 08/30/2021 09/29/2022 1 1 [facility] for referral (narrative)* Diagnostic Procedure Only (Routine) - Closed Specialty Diagnoses / Procedures Referred By Contac t Referred To Contact MOLECULAR & FUNCTIONAL IMAGING Diagnoses Abnormal alkaline phosphatase test Procedures NM BONE WHOLE BODY BONE &/JOINT IMAGING WHOLE BODY Iron Nguyen, DO [address] [place] [address] Molecular & Functional Imaging [address] [place] [address] Referral ID Status Reason Start Date Expiration Date V isits Requested Visits Authorized [id number] Closed Auto-Generate d Referral 08/30/2021 09/29/2022 1 1 [facility] for visit Narrative* Diagnostic Procedure Only (Routine) - Closed Specialty Diagnoses / Procedures Referred By Winston t Referred To Contact MOLECULAR & FUNCTIONAL IMAGING Diagnoses Abnormal alkaline phosphatase test Procedures NM BONE WHOLE BODY BONE &/JOINT IMAGING WHOLE BODY Iron Nguyen, DO [address] [place] [address] Molecular & Functional Imaging [address] [place] [address] Referral ID Status Reason Start Date Expiration Date V isits Requested Visits Authorized [id number] Closed Auto-Generate d Referral 08/30/2021 09/29/2022 1 1 [facility] Summary Purpose Family History No Family History Records FoundNo Family History Records FoundNo Family History Records Found Advance Directives No Advanced Directives Records FoundDocuments on File Type Date Recorded 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 Service: Hospital Medicine Author Type: Physician Type: Discharge Summary Filed: 12/29/2018 7:58 AM Note Text: DISCHARGE SUMMARY PATIENT NAME: Sharon Hyman Code Status: Not on file Highest Readmission Risk Score: 8 The 30 day readmissions risk score is derived from an internally validated risk model which evaluates patient level characteristics, utilization history, medication orders and lab results up until the day of discharge. Patients with a score of 40 or above are considered highest risk for readmission. Specific patient level drivers will be listed at the bottom of the summary. Admission Information Admission Information ADMIT DATE: 12/26/2018 DISCHARGE DATE: 12/28/2018 MY DOCTORS AND MEDICAL TEAM: [facility] Doctor: Eleni att. providers found Primary Care Provider: CHUNG Keita My Medical Team Members: MY CONDITION AT DISCHARGE: Stable REASON I WAS IN THE HOSPITAL: Abdominal pain due to large anterior wall he (more content not included)... Reason for Referral Specialty Diagnoses / Procedures Referred By Contac t Referred To Contact Diagnoses Elevated serum alkaline phosphatase level Procedures CONSULT TO HEPATOLOGY OFFICE/OUTPATIENT [facility] MDM 60-74 MINUTES Iron Nguyen DO [address] [place] [address] Referral ID Status Reason Start Date Expiration Date Visits Requested Visits Authorized [id number] Pending Review PCP Requested Referral 09/14/2021 09/14/2022 1 1 Specialty Diagnoses / Procedures Referred By Contac t Referred To Contact US IMAGING Diagnoses Elevated serum alkaline phosphatase level Procedures US ABD RT UPPER QUADRANT US ABDOMINAL REAL TIME W/IMAGE LIMITED Iron Nguyen DO [address] [place] [address] Us Imaging Referral ID Status Reason Start Date Expiration Date Visits Requested Visits Authorized [id number] Authorized Auto-Generat ed Referral 09/14/2021 10/14/2022 1 1 Additional Source Comments INFORMATION SOURCE (unrecogn ized section and content) DATE CREATED AUTHOR AUTHOR'S ORGANIZ ATION 12/29/2018 [facility] DATE CREATED AUTHOR AUTHOR'S ORGANIZ ATION 12/08/2022 [facility] Source Comments (unrecognize d section and content) In the event this informatio n is protected by the Federal Confidentiality of Alcohol and Drug Abuse Patient Records regulations: The Federal rules restrict any use of the information to criminally investigate or prosecute any alcohol or drug abuse patient.[facility] HospitalIn the event this information is protected by the Federal Confidentiality of Alcohol and Drug Abuse Patient Records regulations: The Federal rules restrict any use of the information to criminally investigate or prosecute any alcohol or drug abuse patient.[facility] HospitalIn the event this information is protected by the Federal Confidentiality of Alcohol and Drug Abuse Patient Records regulations: The Federal rules restrict any use of the information to criminally investigate or prosecute any alcohol or drug abuse patient.[facility] HospitalIn the event this information is protected by the Federal Confidentiality of Alcohol and Drug Abuse Patient Records regulations: The Federal rules restrict any use of the information to criminally investigate or prosecute any alcohol or drug abuse patient.[facility] HospitalIn the event this information is protected by the Federal Confidentiality of Alcohol and Drug Abuse Patient Records regulations: The Federal rules restrict any use of the information to criminally investigate or prosecute any alcohol or drug abuse patient.[facility] HospitalIn the event this information is protected by the Federal Confidentiality of Alcohol and Drug Abuse Patient Records regulations: The Federal rules restrict any use of the information to criminally investigate or prosecute any alcohol or drug abuse patient.[facility] HospitalIn the event this information is protected by the Federal Confidentiality of Alcohol and Drug Abuse Patient Records regulations: The Federal rules restrict any use of the information to criminally investigate or prosecute any alcohol or drug abuse patient.[facility] HospitalIn the event this information is protected by the Federal Confidentiality of Alcohol and Drug Abuse Patient Records regulations: The Federal rules restrict any use of the information to criminally investigate or prosecute any alcohol or drug abuse patient.[facility] HospitalIn the event this information is protected by the Federal Confidentiality of Alcohol and Drug Abuse Patient Records regulations: The Federal rules restrict any use of the information to criminally investigate or prosecute any alcohol or drug abuse patient.[facility] HospitalIn the event this information is protected by the Federal Confidentiality of Alcohol and Drug Abuse Patient Records regulations: The Federal rules restrict any use of the information to criminally investigate or prosecute any alcohol or drug abuse patient.[facility] Reason for Visit (unrecogniz ed section and content) Specialty Diagnoses / Procedures Referred By Contac t Referred To Contact Hematology/Oncology / HEMATOLOGY/ONCOLOGY Diagnoses Follow-up exam 6 MO OV* Procedures OFFICE/OUTPATIENT ESTABLISHED HIGH MDM 40-54 MIN OFFICE/OUTPATIENT ESTABLISHED MOD MDM 30-39 MIN OFFICE/OUTPATIENT ESTABLISHED LOW MDM 20-29 MIN OFFICE/OUTPATIENT ESTABLISHED SF MDM 10-19 MIN EST Leonardo Vance CNP [address] [place] [address] Iron Nguyen DO [address] [place] [address] Referral ID Status Reason Start Date Expiration Date Visits Re quested Visits Authorized [id number] Closed 12/01/2022 03/19/2023 1 1 Reason Comments Results Elevated alkaline ph osphatase & low vit D Reason Comments Results Bone scan negative Reason Comments Results Reason Comments Patient Update Reason Comments Patient Question Care Teams (unrecognized sec tion and content) Pocket Marker Relationship Specialty Start Date End Date Leonardo Parekh ([facility]) [address] [place] [address] PCP - General Family Practice 12/26/18 Pocket Marker Relationship Specialty Start Date End Date Leonardo Parekh ([facility]) [address] [place] [address] PCP - General Family Practice 12/26/18 Pocket Marker Relationship Specialty Start Date End Date Leonardo Parekh ([facility]) [address] [place] [address] PCP - General Family Practice 12/26/18 Pocket Marker Relationship Specialty Start Date End Date Leonardo Parekh ([facility]) [address] [place] [address] PCP - General Family Practice 12/26/18 Pocket Marker Relationship Specialty Start Date End Date Leonardo Parekh ([facility]) [address] [place] [address] PCP - General Family Practice 12/26/18 Pocket Marker Relationship Specialty Start Date End Date Leonardo Parekh ([facility]) [address] [place] [address] PCP - General Family Practice 12/26/18 Pocket Marker Relationship Specialty Start Date End Date Leonardo Parekh ([facility]) [address] [place] [address] PCP - General Family Medicine 12/26/18 Pocket Marker Relationship Specialty Start Date End Date Leonardo Parekh ([facility]) [address] [place] [address] PCP - General Family Medicine 12/26/18 Pocket Marker Relationship Specialty Start Date End Date Leonardo Parekh CNP [address] [place] [address] PCP - General Family Medicine 12/26/18 FOR RECORDS PERTAINING TO PATIENTS WHO ARE OR HAVE BEEN ENROLLED IN A CHEMICAL DEPENDENCY/SUBSTANCEABUSE PROGRAM, SOME INFORMATION MAY BE OMITTED. This clinical summary was aggregated from multiple sources. Caution should be exercised in using it in the provision of clinical care. This summary normalizes information from multiple sources, and as a consequence, information in this document may materially change the coding, format and clinical context of patient data. In addition, data may be omitted in some cases. CLINICAL DECISIONS SHOULD BE BASED ON THE PRIMARY CLINICAL RECORDS. [facility] [employer] [facility]. provides no warranty or guarantee of the accuracy or completeness of information in this document.
== END | disposition home or self-care (01) ==
LOC: US 08:09
PROVIDERS: PCP Internal Medicine; Referring Provider Internal Medicine; Visit Provider Internal Medicine
DX: K75.81 Nonalcoholic steatohepatitis (NASH) (principal); K74.3 Primary biliary cirrhosis
CPT/HCPCS: 76705; 76981

== ENCOUNTER 2023-06-01 06:25 | Emergency (ER) | payer MEDICARE, SELFPAY ==
[2023-06-01 06:25] VITALS: BP 132/76; PULSE 68; RESP 18; TEMP 36.2; O2SAT 98; BMI 34.7
[2023-06-01 06:27] VITALS: BP 146/95; PULSE 89; RESP 16; TEMP 36.2; O2SAT 100
--- OUTSIDE RECORDS SUMMARY | 2023-06-01 07:06 | XMS RPT_ITS | CCD ---
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 Name Role Phone Junior Ahn MD Unavailable Josué Price Unavailable Unavailable PROVIDER, UNKNOWN Unavailable Unavailable Leonardo Parekh (Deck Mate) Primary Care Provider [phone] Leonardo Parekh (Deck Mate) Primary Care Provider Leonardo Parekh CNP Primary Care Provider [phone] IRON NGUYEN Attending Unavailable IRON NGUYEN Referring Unavailable LEONARDO PAREKH Primary Care Unavailable IRON NGUYEN Attending Unavailable IRON NGUYEN Referring Unavailable LEONARDO PAREKH Primary Care Unavailable Allergies Allergy Classification Reported Allergen(s) Allergy Type Date of Onset Reaction(s) Facility (9 sources) chicken allergenic extract; Translations: [POULTRY] allergy to substance 0 [facility] Work Phone: (10 sources) chicken allergenic extract Drug Allergy 6 [facility] Work Phone: (11 sources) Homeopathic Products; Translations: [HOMEOPATHIC PRODUCTS] Propensity to adverse reactions 6 [facility] Work Phone: (1 source) OTHER; Translations: [OTHER] Propensity to adverse reactions (disorder) 6 [facility] Repository Medications Completed/Discontinued Medications Medication Drug Class(es) [...] 153 cm Iron Martinjeff DO Work Phone: [facility] 12-07-2022 08:15-0400 Body temperature 97.11 [degF] Iron Masci DO Work Phone: [facility] 12-07-2022 08:15-0400 Body weight 89.36 kg Iron Masci DO Work Phone: [facility] 12-07-2022 08:15-0400 Diastolic blood pressure 73 mm[Hg] Iron Masci DO Work Phone: [facility] 12-07-2022 08:15-0400 Heart rate 77 /min Iron Masci DO Work Phone: [facility] 12-07-2022 08:15-0400 SaO2% (BldA) [Mass fraction] 98 % Iron Masci DO Work Phone: [facility] 12-07-2022 08:15-0400 Systolic blood pressure 114 mm[Hg] Iron Masci DO Work Phone: [facility] 06-06-2022 09:36-0400 Body height 153.3 cm Iron Masci DO Work Phone: [facility] 06-06-2022 09:36-0400 Body temperature 96.8 [degF] Iron Masci DO Work Phone: [facility] 06-06-2022 09:36-0400 Body weight 84.14 kg Iron Masci DO Work Phone: [facility] 06-06-2022 09:36-0400 Diastolic blood pressure 61 mm[Hg] Iron Masci DO Work Phone: [facility] 06-06-2022 09:36-0400 Heart rate 71 /min Iron Masci DO Work Phone: [facility] 06-06-2022 09:36-0400 SaO2% (BldA) [Mass fraction] 99 % Iron Masci DO Work Phone: [facility] 06-06-2022 09:36-0400 Systolic blood pressure 119 mm[Hg] Iron Masci DO Work Phone: [facility] 08-30-2021 10:48-0400 Body height 153 cm Iron Masci DO Work Phone: [facility] 08-30-2021 10:48-0400 Body temperature 97.7 [degF] Iron Masci DO Work Phone: [facility] 08-30-2021 10:48-0400 Body weight 91.17 kg Iron Masci DO Work Phone: [facility] 08-30-2021 10:48-0400 Diastolic blood pressure 76 mm[Hg] Iron Masci DO Work Phone: [facility] 08-30-2021 10:48-0400 Heart rate 77 /min Iron Masci DO Work Phone: [facility] 08-30-2021 10:48-0400 Systolic blood pressure 122 mm[Hg] Iron Masci DO Work Phone: [facility] 03-08-2016 15:41-0500 BMI (Body Mass Index) 23.54 kg/m2 [facility] Work Phone: 03-08-2016 15:41-0500 Body Temperature 98.5 [degF] Junior Ahn MD [facility] Work Phone: 03-08-2016 15:41-0500 BSA [...] BP Systolic 120 mm[Hg] Junior Ahn MD [facility] Work Phone: Encounters Encounter Date Encounter Type Care Provider Facility Start: 12-07-2022 End: 12-07-2022 ambulatory IRON Ramachandran WENDY Facility:[facility] Start: 12-07-2022 End: 12-07-2022 ambulatory Iron Duarte [...] Author Start: 08-30-2024 DIABETES SCREEN DIABETES SCREEN [facility] Start: 08-30-2024 Diabetes Screening Diabetes Screenin g [facility] Start: 01-23-2023 Lipid 1996 panel - S radha or Plasma Lipid Screening [facility] Start: 01-23-2023 LIPID SCREEN LIPID SCREEN [facility] Start: 11-18-2022 Influenza vaccination Influenza Vacc ine (#1) [facility] Start: 11-18-2021 Influenza vaccination C [facility] Start: 08-30-2021 End: 10-30-2021 25-hydroxyvitamin D3 [Mass/volume] in Serum or Plasma [facility] Work Phone: Immunizations Immunization Date Immunization Notes Care Provider Maverick montes de [facility] 02-19-2020 influenza, injectabl e, quadrivalent, preservative free Iron Nguyen DO Work Phone: [facility] 02-19-2020 influenza virus vaccine, unspecified formulation Iron Nguyen DO Work Phone: [facility] 08-29-2011 tetanus toxoid, redu patricia diphtheria toxoid, and acellular pertussis vaccine, adsorbed Iron Nguyen DO Work Phone: [facility] Work Phone: Payers Date Payer Category Payer Medicare [id number] 2021 Unknown ANTHEM BLUE [facility] AND BLUE [facility]M [employer] O [id number] 2021-Present [phone] [address] [place] [address] O [id number] 2021 Medicare [id number] 2021 Medicare [id number] Unknown Social History Date Type Detail Facility Start: 02-04-2016 End: 02-20-2017 Tobacco smoking status NHIS Ex-smoker [facility] Work Phone: End: 01-02-2016 History of tobacco use Current smoker [facility] Work Phone: End: 01-02-2016 History of tobacco use Cigarette Smoker [facility] Work Phone: Start: 02-04-2016 End: 12-07-2022 Cigarettes smoked current (pack per day) - Reported 1 [facility] Start: 02-04-2016 End: 02-20-2017 Tobacco use and exposure Smokeless tobacco non-user [facility] Work Phone: Start: 08-30-2021 End: 12-07-2022 Alcohol intake Current non-drinker of alcohol (finding) [facility] Start: 02-04-2016 History SDOH Alcohol Comment Rare. [facility] Start: 02-16-2016 Tobacco Comment Pt smoked on & off x 30 years. [facility] Start: 1970 Sex Assigned At Not on file C [facility] Start: 08-21-2021 End: 08-31-2021 Exposure to SARS-CoV-2 (event) Unable to assess [facility] Work Phone: Start: 09-05-2021 End: 09-15-2021 Exposure to SARS-CoV-2 (event) Not sure [facility] Start: 02-26-2021 End: 12-07-2022 Tobacco use panel [facility] Adult Depression Screening Assessment 4 [facility] Start: 09-10-2021 Sexual orientation Heterosexual (jeri waterman) [facility] Medical Equipment Procedure Code Equipment Code Equipment Origin al Text Equipment Identifier Dates Mesh Parietene D s [id number] - [id number] Start: 12-31-2018 Mesh Parietene D s [id number] - [id number] Start: 12-31-2018 Clinical Notes 04-25-2016 to 12-07-2022 Iron Nguyen DO - 12/07/2022 9:06 AM EDTPaul Duarte Nguyen DO - 06/06/2022 10:18 AM EDTTelephone Encounter - [facility] - 04/21/2022 4:32 PM Chad Nguyen DO - 08/30/2021 11:03 AM EDT Note Date & Type Note Facility 12-07-2022 Note HNO ID: [id number] Author: Iron Nguyen DO Service: ? Author [...] palpable cervical, supracla (more content not included)... [facility] 12-07-2022 History of Presen t illness [...] is regular. Normal intensity S1/S2. BREAST: Declined broom maker. Right--graft from back and abdomen with no [...] the date of the service which included [id number] patient care, completing clinical documentation, obtaining and/or reviewing separately obtained history, performing a medically appropriate examination, communicating with other HCPs (not separately reported), and communicating results to the patient/family/caregiver. Iron Nguyen DO documented in this encounter [facility] 06-06-2022 Note HNO ID: [id number] Author: Iron Nguyen DO Service: ? Author [...] [facility]: See ab (more content not included)... [facility] 06-06-2022 History of Presen t illness [...] is regular. Normal intensity S1/S2. BREAST: Declined broom maker. Right--graft from back and abdomen with no suspicious mass or nodule. Left--no implant. No chest wall mass or nodule. ABDOMEN: No abdominal distention. No tenderness. Extremities: No swelling or edema. SKIN: No jaundice or rash. No petechiae. NEUROLOGIC: basic acoustic analyst II-XII are grossly intact. No focal motor [...] which included preparing to see the patient, [id number] patient care, completing clinical documentation, obtaining and/or reviewing separately obtained history, performing a medically appropriate examination, and counseling and educating the patient/family/caregiver. Iron Nguyen DO documented in this encounter [facility] 04-21-2022 Miscellaneous Notes Apt was [...] Please advise patient. documented in this encounter [facility] 09-21-2021 Miscellaneous Notes Patient was in [facility] ER 09/15/2021. ER summary and RUQ US results printed and placed on Dr. Nguyen's desk. Patient does not have to have another US here. I left a detailed message on patient's identified VM informing her of this and that we sent a referral to Dr. Brito at [facility]. Patient ot contact office for any questions. Alise Murillo LPN 2nd attempt on contacting pt to have ultra sound rescheduled, went to , left a message. Makenzie Ridley Will fax over referral to office, looks like patient has cancelled US needed. Tried contacting pt to get this rescheduled, went to , left a message for pt to return call. Makenzie Ridley Laura Redd Pss 09/15/21 11:32 AM Note Spoke with the patient scheduled RUQ ultrasound here in [place] for 09/22 and patient is requesting Hepatology referral be sent to [facility] Dr Brito as she is unable to travel outside of [place]. 2nd attempt, MC message sent. Makenzie Ridley [...] also make referral to Dr. Brito at [facility] if hepatology is booking out a ways. Iron Nguyen DO Patient contacted office concerned with lab results from 09/10/2021, specifically her liver fraction. Alise Murillo LPN documented in this encounter [facility] 09-21-2021 Miscellaneous Notes ER summary and RUQ US results printed and placed on Dr. Nguyen's desk. Patient does not have to have another US here. I left a detailed message on patient's identified VM informing her of this and that we sent a referral to Dr. Brito at [facility]. Patient ot contact office for any questions. Alise Murillo LPN Pt was in [facility] ER visit 09/15/21. She stated she did have a RUQ US while at the ER. She would like to know if she would still need to do that US here for Dr. Nguyen documented in this encounter [facility] 09-10-2021 Miscellaneous Notes Left detailed VM of normal scan on her VM. Saadia Ibrahim LPN Good news. Can let her know bone scan was negative for signs of cancer in the bones. Iron Nguyen DO documented in this encounter [facility] 08-31-2021 Miscellaneous Notes Left Vm with instructions regarding supplement. sent cartmit message. Saadia Ibrahim LPN Vit D is a little low as well. Advise her to start taking a calcium supplement with vit D such as Citracal twice daily. Iron Nguyen DO Left detailed message on patient's identified VM giving patient all information and asking her to contact office to schedule. Dr. Nguyen also sent a MyCDataboxt message explaining this. Alise Murillo LPN Can let her know that her alkaline phosphatase is confirmed to be mildly elevated. Suggest repeat blood test to try to fractionate to determine if this is coming from bone liver or other source. Also obtain bone scan. Iron Nguyen DO documented in this encounter [facility] 08-30-2021 History of Presen t [...] is regular. Normal intensity S1/S2. BREAST: Declined broom maker. Right--graft from back and abdomen with no suspicious mass or nodule. Left--no implant. No chest wall mass or nodule. ABDOMEN: No abdominal distention. No tenderness. Extremities: No swelling or edema. SKIN: No jaundice or rash. No petechiae. NEUROLOGIC: basic acoustic analyst II-XII are grossly intact. No focal motor [...] Iron Nguyen DO documented in this encounter [facility] documented as of this encounter (statuses as of 08/30/2021) [facility] History of Past illness Narrative* Problem Noted Date Resolved Date History of Clostridium difficile 04/25/2016 02/20/2017 Overview: Admitted [facility] 04/20-04/22/16. Treated with oral vancomycin Chest wall pain following surgery 04/04/2016 06/15/2016 Fibroid uterus 09/01/2015 04/04/2016 Lumbar sprain and strain 09/09/2011 016 SI (sacroiliac) joint inflammation 09/09/2011 02/04/2016 Lumbar radicular pain 09/09/2011 02/04/2016 Sciatica of right side 08/02/2011 6 Nontoxic uninodular goiter 03/07/200602/20 documented as of this encounter (statuses as of 08/30/2021) [facility] History of Past illness Narrative* Problem Noted Date Resolved Date History of Clostridium difficile 04/25/2016 02/20/2017 Overview: Admitted [facility] 04/20-04/22/16. Treated with oral vancomycin Chest wall pain following surgery 04/04/2016 06/15/2016 Fibroid uterus 09/01/2015 04/04/2016 Lumbar sprain and strain 09/09/2011 016 SI (sacroiliac) joint inflammation 09/09/2011 02/04/2016 Lumbar radicular pain 09/09/2011 02/04/2016 Sciatica of right side 08/02/2011 6 Nontoxic uninodular goiter 03/07/200602/20 documented as of this encounter (statuses as of 08/31/2021) [facility] History of Past illness Narrative* Problem Noted Date Resolved Date History of Clostridium difficile 04/25/2016 02/20/2017 Overview: Admitted [facility] 04/20-04/22/16. Treated with oral vancomycin Chest wall pain following surgery 04/04/2016 06/15/2016 Fibroid uterus 09/01/2015 04/04/2016 Lumbar sprain and strain 09/09/2011 016 SI (sacroiliac) joint inflammation 09/09/2011 02/04/2016 Lumbar radicular pain 09/09/2011 02/04/2016 Sciatica of right side 08/02/2011 6 Nontoxic uninodular goiter 03/07/200602/20 documented as of this encounter (statuses as of 09/10/2021) [facility] History of Past illness Narrative* Problem Noted Date Resolved Date History of Clostridium difficile 04/25/2016 02/20/2017 Overview: Admitted [facility] 04/20-04/22/16. Treated with oral vancomycin Chest wall pain following surgery 04/04/2016 06/15/2016 Fibroid uterus 09/01/2015 04/04/2016 Lumbar sprain and strain 09/09/2011 016 SI (sacroiliac) joint inflammation 09/09/2011 02/04/2016 Lumbar radicular pain 09/09/2011 02/04/2016 Sciatica of right side 08/02/2011 6 Nontoxic uninodular goiter 03/07/200602/20 documented as of this encounter (statuses as of 09/11/2021) [facility] History of Past illness Narrative* Problem Noted Date Resolved Date History of Clostridium difficile 04/25/2016 02/20/2017 Overview: Admitted [facility] 04/20-04/22/16. Treated with oral vancomycin Chest wall pain following surgery 04/04/2016 06/15/2016 Fibroid uterus 09/01/2015 04/04/2016 Lumbar sprain and strain 09/09/2011 016 SI (sacroiliac) joint inflammation 09/09/2011 02/04/2016 Lumbar radicular pain 09/09/2011 02/04/2016 Sciatica of right side 08/02/2011 6 Nontoxic uninodular goiter 03/07/200602/20 documented as of this encounter (statuses as of 09/21/2021) [facility] History of Past illness Narrative* Problem Noted Date Resolved Date History of Clostridium difficile 04/25/2016 02/20/2017 Overview: Admitted [facility] 04/20-04/22/16. Treated with oral vancomycin Chest wall pain following surgery 04/04/2016 06/15/2016 Fibroid uterus 09/01/2015 04/04/2016 Lumbar sprain and strain 09/09/2011 016 SI (sacroiliac) joint inflammation 09/09/2011 02/04/2016 Lumbar radicular pain 09/09/2011 02/04/2016 Sciatica of right side 08/02/2011 6 Nontoxic uninodular goiter 03/07/200602/20 documented as of this encounter (statuses as of 09/21/2021) [facility] History of Past illness Narrative* Problem Noted Date Resolved Date History of Clostridium difficile 04/25/2016 02/20/2017 Overview: Admitted [facility] 04/20-04/22/16. Treated with oral vancomycin Chest wall pain following surgery 04/04/2016 06/15/2016 Fibroid uterus 09/01/2015 04/04/2016 Lumbar sprain and strain 09/09/2011 016 SI (sacroiliac) joint inflammation 09/09/2011 02/04/2016 Lumbar radicular pain 09/09/2011 02/04/2016 Sciatica of right side 08/02/2011 6 Nontoxic uninodular goiter 03/07/200602/20 documented as of this encounter (statuses as of 04/22/2022) [facility] History of Past illness Narrative* Problem Noted Date Resolved Date History of Clostridium difficile 04/25/2016 02/20/2017 Overview: Admitted [facility] 04/20-04/22/16. Treated with oral vancomycin Chest wall pain following surgery 04/04/2016 06/15/2016 Fibroid uterus 09/01/2015 04/04/2016 Lumbar sprain and strain 09/09/2011 016 SI (sacroiliac) joint inflammation 09/09/2011 02/04/2016 Lumbar radicular pain 09/09/2011 02/04/2016 Sciatica of right side 08/02/2011 6 Nontoxic uninodular goiter 03/07/200602/20 documented as of this encounter (statuses as of 06/07/2022) [facility] History of Past illness Narrative* Problem Noted Date Diagnosed Date Resolved Date History of Clostridium difficile 04/25/2016 02/20/2017 Overview: Admitted [facility] 2-04/22/16. Treated with oral vancomycin Chest wall pain following surgery 04/04/2016 06/15/2016 Fibroid uterus 09/01/2015 04/04/2016 Lumbar sprain and strain 09/09/2011 SI (sacroiliac) joint inflammation 09/09/2011 02/04/2016 Lumbar radicular pain 09/09/20112015 Sciatica of right side 08/02/201102/03 Nontoxic uninodular goiter 03/07/2006 1 04/23/2016 documented as of this encounter (statuses as of 12/07/2022) [facility] Diagnosis Malignant neoplasm of lower-outer quadrant of right breast of female, estrogen receptor negative (HCC)- Primary [facility] Diagnosis Abnormal alkaline phosphatase test- Primary Other nonspecific abnormal serum enzyme levels [facility] Diagnosis Abnormal alkaline phosphatase test Other nonspecific abnormal serum enzyme levels [facility] Diagnosis Elevated serum alkaline phosphatase level- Primary Other nonspecific abnormal serum enzyme levels [facility] Diagnosis History of breast cancer- Primary Personal history of malignant neoplasm of breast [facility] Diagnosis Malignant neoplasm of lower-outer quadrant of right breast of female, estrogen receptor negative (HCC)- Primary documented in this encounter [facility] for referral (narrative)* Diagnostic Procedure Only (Routine) - Pending Review Specialty Diagnoses / Procedures Referred By Winston chen Referred To Contact MOLECULAR & FUNCTIONAL IMAGING Diagnoses Abnormal alkaline phosphatase test Procedures NM BONE WHOLE BODY BONE &/JOINT IMAGING WHOLE BODY Iron Nguyen DO [address] [place] [address] Molecular & Functional Imaging [address] [place] [address] Referral ID Status Reason Start Date Expiration Date Visits Requested Visits Authorized [id number] Pending Review Auto-Generat ed Referral 08/30/2021 09/29/2022 1 1 [facility] for referral (narrative)* Diagnostic Procedure Only (Routine) - Closed Specialty Diagnoses / Procedures Referred By Contac t Referred To Contact MOLECULAR & FUNCTIONAL IMAGING Diagnoses Abnormal alkaline phosphatase test Procedures NM BONE WHOLE BODY BONE &/JOINT IMAGING WHOLE BODY Iron Nguyen, DO [address] [place] [address] Molecular & Functional Imaging [address] [place] [address] Referral ID Status Reason Start Date Expiration Date V isits Requested Visits Authorized [id number] Closed Auto-Generate d Referral 08/30/2021 09/29/2022 1 1 [facility] for visit Narrative* Diagnostic Procedure Only (Routine) - Closed Specialty Diagnoses / Procedures Referred By Winston t Referred To Contact MOLECULAR & FUNCTIONAL IMAGING Diagnoses Abnormal alkaline phosphatase test Procedures NM BONE WHOLE BODY BONE &/JOINT IMAGING WHOLE BODY Iron Nguyen, DO [address] [place] [address] Molecular & Functional Imaging [address] [place] [address] Referral ID Status Reason Start Date Expiration Date V isits Requested Visits Authorized [id number] Closed Auto-Generate d Referral 08/30/2021 09/29/2022 1 1 [facility] Summary Purpose Family History No Family History Records FoundNo Family History Records FoundNo Family History Records Found Advance Directives No Advanced Directives Records FoundDocuments on File Type Date Recorded 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 Service: Hospital Medicine [...] phosphatase level Procedures CONSULT TO HEPATOLOGY OFFICE/OUTPATIENT [facility] MDM 60-74 MINUTES Iron Nguyen DO [address] [place] [address] Referral ID Status Reason Start Date Expiration Date Visits Requested Visits Authorized [id number] Pending Review PCP Requested Referral 09/14/2021 09/14/2022 1 1 Specialty Diagnoses / Procedures Referred By Contac t Referred To Contact US IMAGING Diagnoses Elevated serum alkaline phosphatase level Procedures US ABD RT UPPER QUADRANT US ABDOMINAL REAL TIME W/IMAGE LIMITED Iron Nguyen DO [address] [place] [address] Us Imaging Referral ID Status Reason Start Date Expiration Date Visits Requested Visits Authorized [id number] Authorized Auto-Generat ed Referral 09/14/2021 10/14/2022 1 1 Additional Source Comments INFORMATION SOURCE (unrecogn ized section and content) DATE CREATED AUTHOR AUTHOR'S ORGANIZ ATION 12/29/2018 [facility] DATE CREATED AUTHOR AUTHOR'S ORGANIZ ATION 12/08/2022 [facility] Source Comments (unrecognize d section and content) In the event this informatio n is protected by the Federal Confidentiality of Alcohol and Drug Abuse Patient Records regulations: The Federal rules restrict any use of the information to criminally investigate or prosecute any alcohol or drug abuse patient.[facility] the event this information is protected by the Federal Confidentiality of Alcohol and Drug Abuse Patient Records regulations: The Federal rules restrict any use of the information to criminally investigate or prosecute any alcohol or drug abuse patient.[facility] the event this information is protected by the Federal Confidentiality of Alcohol and Drug Abuse Patient Records regulations: The Federal rules restrict any use of the information to criminally investigate or prosecute any alcohol or drug abuse patient.[facility] the event this information is protected by the Federal Confidentiality of Alcohol and Drug Abuse Patient Records regulations: The Federal rules restrict any use of the information to criminally investigate or prosecute any alcohol or drug abuse patient.[facility] the event this information is protected by the Federal Confidentiality of Alcohol and Drug Abuse Patient Records regulations: The Federal rules restrict any use of the information to criminally investigate or prosecute any alcohol or drug abuse patient.[facility] the event this information is protected by the Federal Confidentiality of Alcohol and Drug Abuse Patient Records regulations: The Federal rules restrict any use of the information to criminally investigate or prosecute any alcohol or drug abuse patient.[facility] Hospital[facility] the event this information is protected by the Federal Confidentiality of Alcohol and Drug Abuse Patient Records regulations: The Federal rules restrict any use of the information to criminally investigate or prosecute any alcohol or drug abuse patient.[facility] Hospital[facility] the event this information is protected by the Federal Confidentiality of Alcohol and Drug Abuse Patient Records regulations: The Federal rules restrict any use of the information to criminally investigate or prosecute any alcohol or drug abuse patient.[facility] Hospital[facility] the event this information is protected by the Federal Confidentiality of Alcohol and Drug Abuse Patient Records regulations: The Federal rules restrict any use of the information to criminally investigate or prosecute any alcohol or drug abuse patient.[facility] HospitalIn the event this information is protected by the Federal Confidentiality of Alcohol and Drug Abuse Patient Records regulations: The Federal rules restrict any use of the information to criminally investigate or prosecute any alcohol or drug abuse patient.[facility] Reason for Visit (unrecogniz ed section and content) Specialty Diagnoses / Procedures Referred By Contac t Referred To Contact Hematology/Oncology / HEMATOLOGY/ONCOLOGY Diagnoses Follow-up exam 6 MO OV* Procedures OFFICE/OUTPATIENT ESTABLISHED HIGH MDM 40-54 MIN OFFICE/OUTPATIENT ESTABLISHED MOD MDM 30-39 MIN OFFICE/OUTPATIENT ESTABLISHED LOW MDM 20-29 MIN OFFICE/OUTPATIENT ESTABLISHED SF MDM 10-19 MIN EST Leonardo Vance CNP [address] [place] [address] Iron Nguyen DO [address] [place] [address] Referral ID Status Reason Start Date Expiration Date Visits Re quested Visits Authorized [id number] Closed 12/01/2022 03/19/2023 1 1 Reason Comments Results Elevated alkaline ph osphatase & low vit D Reason Comments Results Bone scan negative Reason Comments Results Reason Comments Patient Update Reason Comments Patient Question Care Teams (unrecognized sec tion and content) Bed Bug Exterminator Relationship Specialty Start Date End Date Leonardo Parekh ([facility]) [address] [place] [address] PCP - General Family Practice 12/26/18 Bed Bug Exterminator Relationship Specialty Start Date End Date Leonardo Parekh ([facility]) [address] [place] [address] PCP - General Family Practice 12/26/18 Bed Bug Exterminator Relationship Specialty Start Date End Date Leonardo Parekh ([facility]) [address] [place] [address] PCP - General Family Practice 12/26/18 Bed Bug Exterminator Relationship Specialty Start Date End Date Leonardo Parekh ([facility]) [address] [place] [address] PCP - General Family Practice 12/26/18 Bed Bug Exterminator Relationship Specialty Start Date End Date Leonardo Parekh ([facility]) [address] [place] [address] PCP - General Family Practice 12/26/18 Bed Bug Exterminator Relationship Specialty Start Date End Date Leonardo Parekh ([facility]) [address] [place] [address] PCP - General Family Practice 12/26/18 Bed Bug Exterminator Relationship Specialty Start Date End Date Leonardo Parekh ([facility]) [address] [place] [address] PCP - General Family Medicine 12/26/18 Bed Bug Exterminator Relationship Specialty Start Date End Date Leonardo Parekh ([facility]) [address] [place] [address] PCP - General Family Medicine 12/26/18 Bed Bug Exterminator Relationship Specialty Start Date End Date Leonardo Parekh CNP [address] [place] [address] PCP - General Family Medicine 12/26/18 FOR [...] BE BASED ON THE PRIMARY CLINICAL RECORDS. [facility] [employer] provides no warranty or guarantee of the accuracy or completeness of information in this document.
--- NOTE | 2023-06-01 07:09 | EDS_ITS ---
HPI HPI - GI History of Present Illness Chief Complaint: Abd Pain Informant: patient Abdominal Pain/Flank Pain Onset: Days (2) Context: Sudden Onset Timing: Intermittent Quality: Cramping Location: Diffuse Worsened by: Nothing Relieved by: Nothing Nausea/Vomiting/Emesis GI Symptom: Positive for Nausea and Vomiting Quality: Positive for Nonbilious; Negative for Blood streaks, Coffee ground or Hematemesis Diarrhea/Melena/Hematochezia GI Symptom: Positive for Diarrhea; Negative for Melena or Hematochezia Associated Symptoms Associated Symptoms: Negative for Dysuria, Frequency or Hematuria Narrative Narrative: Patient presents with abdominal pain that has been intermittent over the past 2 days. Patient states it comes on rather suddenly. Patient describes her pain as cramping. Patient states her pain is diffuse across her entire abdomen. Patient states nothing makes it better nothing makes it worse. Patient admits to some nausea and vomiting. Patient denies any hematemesis or coffee-ground emesis. Patient admits to some diarrhea. Patient denies any melena or hematochezia. Patient denies any dysuria, frequency, or hematuria. Patient denies any fevers or chills. [facility] Medical History Acquired absence of bilateral breasts and nipples Anxiety and depression Back pain BONE FRACTURES - BROKEN RIGHT ARM Breast cancer, right breast Breast lump in female Cancer phobia Capsular contracture of breast implant, initial encounter Carpal tunnel syndrome, bilateral Deformity of reconstructed breast Disproportion of reconstructed breast Elevated blood-pressure reading, without diagnosis of hypertension Elevated serum alkaline phosphatase level Estrogen receptor negative status [ER-] Fibroids Former cigarette smoker Goiter Health care maintenance Hematoma of breast History of emotional problems Late effect of radiation Left forearm pain Left knee pain Low back pain Lumbar radiculopathy Neuropathy Pain from breast implant Panic attacks Partial loss of skin graft Polyneuropathy due to drug Positive Lisa's Sign Postoperative hematoma of subcutaneous tissue following non-dermatologic procedure Postprocedural seroma of skin and subcutaneous tissue following other procedure Radiation skin ulcer of chest Seasonal allergies Smoker Soft tissue radionecrosis Thyroid disease Home Medications buprenorphine 15 mcg/hour weekly transdermal patch (Butrans) 1 patch transdermal QWEEK 06/09/20 [History Last Taken Unknown] tizanidine 2 mg capsule 2 mg PO QHS 06/09/20 [History Last Taken Unknown] cane #1 ea 09/09/20 [Rx Last Taken Unknown] atorvastatin 20 mg tablet (Lipitor) 20 mg PO QHS #90 tabs 08/09/22 [Rx Last Taken Unknown] trazodone 50 mg tablet 50 mg PO QHS PRN insomnia #90 tabs 03/29/23 [Rx Last Taken Unknown] sertraline 100 mg tablet 100 mg PO BID #180 tabs 05/01/23 [Rx Last Taken Unknown] pantoprazole 40 mg tablet,delayed release 40 mg PO DAILY #30 tabs 05/12/23 [Rx Last Taken Unknown] ursodiol 500 mg tablet (STELLA Forte) 500 mg PO BID #60 tabs 05/12/23 [Rx Last Taken Unknown] buspirone 15 mg tablet 15 mg PO BID #180 TABLETS 05/31/23 [Rx Last Taken Unkn own] lorazepam 0.5 mg tablet 0.5 mg PO QHS PRN anxiety #20 tabs 05/31/23 [Rx Last Taken Unknown] pregabalin 150 mg capsule 150 mg PO BID #60 caps 05/31/23 [Rx Last Taken Unknown] amoxicillin 875 mg-potassium clavulanate 125 mg tablet 875 mg (0.875 x 875-125 mg) PO Q12H #20 TABLETS 06/01/23 [Rx Last Taken Unknown] Allergy/AdvReac Type Severity Reaction Status Date / Time cat dander Allergy Severe Lips & Verified 06/01/23 06:27 throat swole Environmental Allergies: Allergy Itching,chris Verified 06/01/23 06:27 Uncoded h Poultry Allergy Anaphylaxis Verified 06/01/23 06:27 Family History Unknown No problems noted. Mother Anemia Anxiety Arthritis Breast cancer Depression Osteoporosis Father Anxiety Depression Mental disorder Parkinson disease Respiratory complication Sister Anemia Anxiety Sister Anxiety Aunt Breast cancer Uncle Leukemia Grandfather Melanoma Other Bowel disease Surgical History complicated hernia surgery H/O bilateral breast implants History of prophylactic mastectomy of left breast History of removal of implants of both breasts History of thyroidectomy History of tubal ligation HYSTERCTOMY WITH BILATERAL SALPINGECTOMY MASTECTOMY RIGHT BREAST AND BILATERAL SENTINEL NODE BIOPSIES PORT PLACEMENT 02/02 Status post bilateral breast reconstruction Status post transverse rectus abdominis muscle (TRAM) flap breast reconstruction Social History Smoking Status: Former smoker second hand exposure: No alcohol intake: never substance use type: does not use what type of physical activity do you participate in: other frequency: daily seatbelt use: always do you feel safe at home: Yes additional social history: SUN EXPOSURE: OCCASIONALLY ROS ROS ED Constitutional Constitutional ED: Denies chills or fever(s) Eyes Eyes: Denies blurry vision or change in vision ENT ENT ED: Denies rhinorrhea or sore throat Cardiovascular Cardiovascular: Denies chest pain or palpitations Respiratory/Chest Respiratory/Chest: Denies cough or dyspnea Gastrointestinal Gastrointestinal: Reports abdominal pain, diarrhea, nausea and vomiting Genitourinary Genitourinary ED: Denies dysuria or hematuria Musculoskeletal Musculoskeletal: Reports back pain; Denies neck pain Integumentary Denies abscess or rash Neurologic Neurologic: Denies headache(s) or weakness Allergic/Immunologic Allergic/Immunologic ED: Denies mouth swelling or urticaria EXAM Physical Exam Const Vital Signs: 06/01/23 06:25 06/01/23 06:27 06/01/23 08:25 Temperature 97.2 F L 97.2 F L Temperature Source Temporal Temporal Pulse Rate 68 89 68 Respiratory Rate 18 16 18 Blood Pressure 132/76 H 146/95 H 128/72 H Blood Pressure Mean 94 112 90 Pulse Ox 98 100 98 Oxygen Delivery Method Room Air 06/01/23 10:00 Temperature Temperature Source Pulse Rate 68 Respiratory Rate 18 Blood Pressure 130/70 H Blood Pressure Mean 90 Pulse Ox 98 Oxygen Delivery Method Room Air Positive well nourished, well developed and obese General Appearance ED: well developed and NAD Nutritional Appearance: obese HEENT Reports moist mucous membranes Neck supple and no JVD Resp normal respiratory effort and clear to auscultation bilaterally Cardio regular rate and regular rhythm GI non-distended Palpation: soft and tender epigastric, LLQ, RLQ, LUQ, RUQ, periumbilical and suprapubic; Negative for guarding or rebound tenderness present Neuro CN's II-XII intact bilaterally, moves all extremities and no sensory deficits noted Sensorium / Orientation: alert Motor Exam: strength 5/5 throughout Psych mental status grossly normal MDM MDM MDM Narrative Medical decision making narrative: Differential diagnosis includes cholelithiasis, gastroenteritis, gastritis, bowel obstruction, perforation, urinary tract infection, pyelonephritis, and pancreatitis. CBC will be obtained to assess for leukocytosis and anemia. Comprehensive metabolic profile will be obtained to assess for hepatic function, renal function, and electrolyte abnormality. Lipase will be obtained to assess for pancreatitis. Urinalysis will be obtained to assess for urinary tract infection and hematuria. CT scan of the abdomen pelvis will be obtained to assess for bowel obstruction and perforation. Lab Data Attestation: I reviewed the patient's lab results. Lab results narrative: CBC was reviewed and was within normal limits. Comprehensive metabolic profile was reviewed and was essentially within normal limits. Lipase was reviewed and was normal at 25. Urinalysis was reviewed. There is no evidence of urinary tract infection or hematuria. Labs: Laboratory Results - last 24 hr 06/01/23 06/01/23 06:39 08:30 WBC 8.9 RBC 5.23 Hgb 15.4 H Hct 44.6 MCV 85.3 MCH 29.4 MCHC 34.5 RDW Std Deviation 36.7 RDW Coeff of Adrian 11.9 Plt Count 189 MPV 10.0 Immature Gran % (Auto) 0.500 Neut % (Auto) 86.0 H Lymph % (Auto) 9.4 L Wagoner % (Auto) 3.4 Eos % (Auto) 0.2 Baso % (Auto) 0.5 Absolute Neuts (auto) 7.6 Absolute Lymphs (auto) 0.83 Nucleated RBC % 0 Sodium 142 Potassium 3.3 L Chloride 108 H Carbon Dioxide 26.0 Anion Gap 8 BUN 17 Creatinine 0.98 Estim Creat Clear Calc 64.23 Est GFR (MDRD) Af Amer 76 Est GFR (MDRD) Non-Af 63 BUN/Creatinine Ratio 17.3 Glucose 126 H Calcium 10.2 H Total Bilirubin 0.80 AST 16 ALT 21 Alkaline Phosphatase 125 H Total Protein 7.8 Albumin 4.3 Globulin 3.5 Albumin/Globulin Ratio 1.2 Lipase 25 Urine Color Yellow Urine Clarity Clear Urine pH 6.0 Ur Specific [place] 1.010 Urine Protein Negative Urine Glucose (UA) Normal Urine Ketones Negative Urine Occult Blood Negative Urine Nitrite Negative Urine Bilirubin Negative Urine Urobilinogen Normal Ur Leukocyte Esterase 25 H Urine RBC 0 SEEN Urine WBC 0-5 SEEN Ur Squamous Epith Cells 0-5 SEEN Urine Bacteria 2+ Urine Mucus 0 SEEN Radiography Diagnostic Testing: Clinical Impression(s) from Imaging Studies Abdomen/Pelvis CT 06/01/23 07:28 IMPRESSION: Findings suggestive of colitis of the left hemicolon. Fatty infiltration of the liver. Borderline splenomegaly. Electronically Signed: Jin Kingston MD at 10:06 EDT , CT scan of the abdomen and pelvis was obtained. There are findings suggestive of colitis of the left hemicolon. There is no evidence of bowel obstruction or perforation. There is no free air or free fluid. This was interpreted by the radiologist was also independently reviewed by myself. Treatment and Re-Evaluation :: Patient was given IV fluids, Zofran, and morphine initially. Patient was also given a dose of Bentyl. Patient was still having pain on reevaluation. Patient was given a repeat dose of morphine. Patient was advised of her findings. Patient was given a prescription for Augmentin. Patient was given her first dose here. Patient was instructed to follow-up with her primary care physician in 5 to 7 days. Patient understood and was agreeable with the plan. All questions were answered. Discharge Plan Triage Chief Complaint: Abd Pain ED Provider: Chip Gonzalez Dx/Rx/DC Orders Clinical Impression: Colitis, Abdominal pain Instructions: ED Understanding Colitis Prescriptions: New amoxicillin-pot clavulanate [amoxicillin-pot clavulanate] 875-125 mg tablet 875 mg PO Q12H Qty: 20 0RF No Action tizanidine 2 mg capsule 2 mg PO QHS buprenorphine [Butrans] 15 mcg/hour patch weekly 1 patch TD QWEEK Rx Instructions: Dr Blanco ([facility] [place]) cane Device See Rx Instructions .ROUTE .MEDSUPPLY Qty: 1 1RF Rx Instructions: As directed atorvastatin [Lipitor] 20 mg tablet 20 mg PO QHS Qty: 90 3RF trazodone 50 mg tablet 50 mg PO QHS PRN (Reason: insomnia) Qty: 90 1RF Rx Instructions: take 1 tablet by mouth at bedtime if needed for sleep sertraline 100 mg tablet 100 mg PO BID Qty: 180 1RF pantoprazole 40 mg tablet,delayed release (/EC) 40 mg PO DAILY Qty: 30 3RF ursodiol [STELLA Forte] 500 mg tablet 500 mg PO BID Qty: 60 5RF buspirone 15 mg tablet 15 mg PO BID Qty: 180 0RF pregabalin 150 mg capsule 150 mg PO BID Qty: 60 0RF lorazepam 0.5 mg tablet 0.5 mg PO QHS PRN (Reason: anxiety) Qty: 20 0RF Primary Care Provider: Cici Martinez Referrals: Cici Martinez MD [Primary Care Provider] - 5-7 Days Disposition Disposition: Home, Self Care
--- NOTE | 2023-06-01 07:28 | CT_ITS ---
STUDY: CT ABDOMEN AND PELVIS WITH CONTRAST REASON FOR EXAM: Female, 53 years old. Abdominal pain -- IV PO Contrast RADIATION DOSAGE (If Supplied By Facility): CTDIvol = ( 17.60 ) mGy, DLP = ( 980.84 ) mGycm TECHNIQUE: Transaxial images were obtained from the dome of the diaphragm to the symphysis pubis without oral contrast. IV 100mL Isovue-370 was administered. Sagittal and coronal images were reconstructed. Individualized dose optimization techniques were used for this CT. COMPARISON: Comparison is made with prior study December 16, 2019. FINDINGS: Mild increased linear markings at the lung bases suggestive of bibasilar atelectasis. The visualized portions of the heart are within normal limits. There is decreased attenuation of the liver consistent with steatosis. The gallbladder is contracted. Borderline splenomegaly. Normal pancreas. Normal bilateral adrenal glands. Normal right kidney. Normal left kidney. Normal visualized stomach. Normal small intestine. Findings suggestive of colitis of the left hemicolon. The appendix is visualized and appears normal. There is scattered atherosclerotic calcification of the abdominal aorta, without a demonstrated aneurysm. Normal inferior vena cava. Normal retroperitoneum. Normal urinary bladder. Small amount of free fluid is seen in the pelvis. Follicles are seen in the right ovary. Prior hysterectomy. Evidence of prior anterior abdominal wall hernia repair with mesh. Normal osseous structures. CT/Abdomen/Pelvis WITH Contrast IMPRESSION: Findings suggestive of colitis of the left hemicolon. Fatty infiltration of the liver. Borderline splenomegaly. Electronically Signed: Jin Kingston MD at 10:06 EDT ,
[2023-06-01] MEDS: 0.9% Normal Saline (1000mL) 1,000 ML 1000 ML IV (07:36)
[2023-06-01 07:37] LABS: Absolute Lymphocyte Count 0.83 X10^3/uL (0.83-4.51); Absolute Neutrophil Count 7.6 X10^3/uL (2.0-7.7); Basophil# 0.04 X10^3/uL; Basophil% 0.5 % (0-1); Eosinophil# 0.02 X10^3/uL; Eosinophils% 0.2 % (0-5); Hematocrit 44.6 % (37-47); Hemoglobin 15.4 g/dL (12.0-15.0); Lymphocyte # 0.83 X10^3/ul (0.83-4.51); Lymphocyte % 9.4 % (19-41); Mean Corp Hgb Conc 34.5 g/dL (32-36); Mean Corpuscular Hgb 29.4 pg (27.0-32.0); Mean Corpuscular Volume 85.3 fL (81-99); Monocyte% 3.4 % (0-10); NRBC Flagged by Analyzer 0 % (0-5); Neutrophil # 7.62 X10^3/uL (2.7-7.7); Platelet Count 189 K/mm3 (150-450); RBC Distribution Width CV 11.9 % (11.6-14.6); RBC Distribution Width SD 36.7 fl (35.1-43.9); Red Blood Count 5.23 M/mm3 (4.2-5.4); White Blood Count 8.9 K/mm3 (4.4-11.0)
[2023-06-01] MEDS: Morphine 4 MG/ML Syringe IV ×2 (07:37→11:14)
[2023-06-01] MEDS: Ondansetron 4 MG/2 ML Vial IV (07:37)
[2023-06-01 07:53] LABS: ALB/GLOB Ratio 1.2 RATIO (0.9-2.4); AST(SGOT) 16 U/L (15-37); Alanine Aminotransfer ALT/SGPT 21 U/L (13-56); Albumin, Serum 4.3 g/dL (3.2-5.0); Alkaline Phosphatase 125 U/L (45-117); Anion Gap 8 (5-15); BUN 17 mg/dL (7-18); BUN/Creat Ratio 17.3 RATIO (10-20); Calcium,Total 10.2 mg/dL (8.5-10.1); Chloride 108 mmol/L (98-107); Creatinine, Serum 0.98 mg/dL (0.55-1.02); EST Glomerular Filtration Rate 63 mL/min (>60); Est Glom Filt Rate - Afr Amer 76 mL/min (>60); Estimated Creatinine Clearance 64.23 ml/min; Globulin 3.5 g/dL (2.2-4.2); Glucose 126 mg/dL (74-106); Lipase 25 U/L (13-75); Potassium 3.3 mmol/L (3.5-5.1); Protein, Total 7.8 g/dL (6.4-8.2); Sodium Level 142 mmol/L (136-145)
[2023-06-01] MEDS: Dicyclomine 20 MG/2 ML Vial IM (08:08)
[2023-06-01 08:25] VITALS: BP 128/72; PULSE 68; RESP 18; O2SAT 98
[2023-06-01 08:41] LABS: Mucous, Urine 0 SEEN /hpf (<or=2+); Red Blood Cells-Urine 0 SEEN /hpf (0-5)
[2023-06-01 08:54] LABS: Color, Urine Yellow (Yellow); Glucose, Dipstick Normal (Normal); Ketone-Dipstick Negative (Negative); Leukocyte Esterase-Dipstick 25 /ul (Negative); Nitrite-Dipstick Negative (Negative); Occult Blood-Urine Negative /ul (Negative); Protein-Dipstick Negative (Negative); Urine Bilirubin Dipstick Negative (Negative); Urine Clarity Clear (Clear); Urine Urobilinogen Normal (Normal)
[2023-06-01 09:05] LABS: Bacteria 2+ /hpf (None Seen); Squamous Epithelial Cells - UA 0-5 SEEN /hpf (5-10); White Blood Cells 0-5 SEEN /hpf (0-5)
[2023-06-01 10:00] VITALS: BP 130/70; PULSE 68; RESP 18; O2SAT 98
[2023-06-01 11:00] VITALS: BP 108/67; PULSE 76; RESP 18; TEMP 36.6; O2SAT 99
== END 2023-06-01 11:51 | disposition home or self-care (01) ==
PROVIDERS: Emergency Provider Emergency Medicine; PCP Internal Medicine; Visit Provider Emergency Medicine
DX: K52.9 Noninfective gastroenteritis and colitis, unspecified (principal); E66.9 Obesity, unspecified; Z68.34 Body mass index [BMI] 34.0-34.9, adult; Z87.891 Personal history of nicotine dependence
CPT/HCPCS: 74177; 80053; 81001; 83690; 85025; 96361; 96372; 96374; 96375; 96376; 99282; J7030; Q9967; A4216; J2405

== ENCOUNTER → 2023-07-13 | Outpatient (CLI) | payer MEDICARE, SELFPAY ==
[2023-07-13 11:23] LABS: Hemoglobin A1c 4.5 % (3.8-5.6)
[2023-07-13 11:33] LABS: Vitamin B12 930 pg/mL (211-911); Vitamin D,25 Hydroxy 22.4 ng/mL
[2023-07-13 11:39] LABS: Anion Gap 7 (5-15); BUN 14 mg/dL (7-18); BUN/Creat Ratio 15.1 RATIO (10-20); Calcium,Total 9.2 mg/dL (8.5-10.1); Chloride 106 mmol/L (98-107); Creatinine, Serum 0.93 mg/dL (0.55-1.02); EST Glomerular Filtration Rate 67 mL/min (>60); Est Glom Filt Rate - Afr Amer 81 mL/min (>60); Glucose 100 mg/dL (74-106); Potassium 3.9 mmol/L (3.5-5.1); Sodium Level 138 mmol/L (136-145)
== END | disposition home or self-care (01) ==
LOC: LAB 10:07
PROVIDERS: PCP Internal Medicine; Referring Provider Internal Medicine; Visit Provider Internal Medicine
DX: E87.6 Hypokalemia (principal); K74.3 Primary biliary cirrhosis; K21.9 Gastro-esophageal reflux disease without esophagitis; K75.81 Nonalcoholic steatohepatitis (NASH); R63.4 Abnormal weight loss
CPT/HCPCS: 36415; 80048; 82306; 82607; 82746; 83036; 84443

== ENCOUNTER 2023-11-08 13:54 | Outpatient (CLI) | payer MEDICARE, SELFPAY ==
[2023-11-08 13:58] LABS: Mucous, Urine 0 SEEN /hpf (<or=2+)
[2023-11-08 15:12] LABS: Absolute Lymphocyte Count 0.87 X10^3/uL (0.83-4.51); Absolute Neutrophil Count 2.8 X10^3/uL (2.0-7.7); Basophil# 0.02 X10^3/uL; Basophil% 0.5 % (0-1); Eosinophil# 0.04 X10^3/uL; Hematocrit 38.2 % (37-47); Hemoglobin 13.3 g/dL (12.0-15.0); Lymphocyte # 0.87 X10^3/ul (0.83-4.51); Mean Corp Hgb Conc 34.8 g/dL (32-36); Mean Platelet Vol. 10.1 fl (6.2-12.0); Monocyte% 5.1 % (0-10); NRBC Flagged by Analyzer 0 % (0-5); Neutrophil # 2.81 X10^3/uL (2.7-7.7); Neutrophil % 71.1 % (47-70); Platelet Count 141 K/mm3 (150-450); RBC Distribution Width CV 12.1 % (11.6-14.6); RBC Distribution Width SD 37.8 fl (35.1-43.9); Red Blood Count 4.44 M/mm3 (4.2-5.4)
[2023-11-08 15:16] LABS: Color, Urine Yellow (Yellow); Glucose, Dipstick Normal (Normal); Ketone-Dipstick 5 mg/dl (Negative); Leukocyte Esterase-Dipstick 500 /ul (Negative); Nitrite-Dipstick Negative (Negative); Occult Blood-Urine 250 /ul (Negative); Protein-Dipstick 100 mg/dl (Negative); Specific Gravity, Urine 1.015 (1.002-1.030); Urine Bilirubin Dipstick Negative (Negative); Urine Clarity Sl. Cloudy (Clear); Urine Urobilinogen 1 mg/dl (Normal)
[2023-11-08 15:21] LABS: International Normalized Ratio 1.1; Prothrombin Time (Protime)PT. 13.9 SECONDS (11.7-14.9)
[2023-11-08 15:39] LABS: ALB/GLOB Ratio 1.1 RATIO (0.9-2.4); AST(SGOT) 14 U/L (15-37); Alanine Aminotransfer ALT/SGPT 18 U/L (13-56); Alkaline Phosphatase 118 U/L (45-117); Anion Gap 6 (5-15); BUN 12 mg/dL (7-18); BUN/Creat Ratio 11.7 RATIO (10-20); Calcium,Total 9.4 mg/dL (8.5-10.1); Chloride 108 mmol/L (98-107); Cholesterol 166 mg/dL (200); Creatinine, Serum 1.03 mg/dL (0.55-1.02); EST Glomerular Filtration Rate 59 mL/min (>60); Est Glom Filt Rate - Afr Amer 72 mL/min (>60); Globulin 3.5 g/dL (2.2-4.2); Glucose 98 mg/dL (74-106); High Density Lipoprotein 42 mg/dL; Potassium 4.2 mmol/L (3.5-5.1); Protein, Total 7.5 g/dL (6.4-8.2); Sodium Level 137 mmol/L (136-145); Triglycerides 138 mg/dL; Very Low Density Lipoprotein 28 mg/dL (5-40)
[2023-11-08 15:55] LABS: Squamous Epithelial Cells - UA 0-5 SEEN /hpf (5-10); White Blood Cells >100 SEEN /hpf (0-5)
[2023-11-08 15:56] LABS: Red Blood Cells-Urine 10-25 SEEN /hpf (0-5); Renal Epithelial Cells 0-5 SEEN /hpf (0-5); Transitional Epithelial - Ur 0-5 SEEN /hpf (0-5)
[2023-11-08 15:57] LABS: Bacteria 3+ /hpf (None Seen)
[2023-11-10 14:09] LABS: ANTINUCLEAR ANTIBODIES DIRECT Negative (Negative); Anti-Mitochondrial AB 20.2 Units (0.0-20.0); Anti-Smooth Muscle ABS 11 Units (0-19)
== END 2023-11-08 23:59 | disposition home or self-care (01) ==
LOC: BIMLAB 13:55
PROVIDERS: Internal Medicine; PCP Internal Medicine; Referring Provider Internal Medicine; Visit Provider Internal Medicine
DX: E78.5 Hyperlipidemia, unspecified (principal); K74.3 Primary biliary cirrhosis; K21.9 Gastro-esophageal reflux disease without esophagitis; K75.81 Nonalcoholic steatohepatitis (NASH); R31.9 Hematuria, unspecified
CPT/HCPCS: 80053; 80061; 81001; 82105; 83516; 85025; 85610; 86038; 86140; 86225; 86235; 87086; 87088

== ENCOUNTER → 2023-12-05 | Outpatient (CLI) | payer MEDICARE, SELFPAY ==
--- NOTE | 2023-12-05 06:56 | US_ITS ---
INDICATION: Hematuria, Dysuria COMPARISON: Abdominal ultrasound same day. A radiation dose optimization technique was used for this scan. RADIATION DOSAGE (If Supplied By Facility): CTDIvol/DLP = ( 11.98 ) / ( 562.85 ) mGy/mGycm FINDINGS: Noncontrast serial CT axial images through the abdomen and pelvis with coronal and sagittal reformatted series. PANCREAS: No peripancreatic fat stranding. BOWEL/MESENTERY: No dilated bowel loops. No significant free fluid. No free air. GALLBLADDER: No pericholecystic fat stranding. LIVER/STOMACH: Prominent Yris''s lobe of the liver. URINARY COLLECTING SYSTEM/ KIDNEYS: No obstructing ureteral calculus. No significant renal parenchymal abnormality. SPLEEN: Splenomegaly measuring just over 14 cm. APPENDIX: Normal caliber gas containing appendix. ABDOMINAL WALL: Anterior abdominal wall surgical clips associated with right TRAM flap reconstruction. LUNG BASES: Unremarkable. BONES: Unremarkable for age. US/ABD Limited w/ Elastography IMPRESSION: Mild splenomegaly. No acute abdominal abnormality is identified, to include normal appendix and no evidence of obstructing ureteral calculus. Electronically Signed: Sam Youngblood MD at 7:14 EDT ,
== END | disposition home or self-care (01) ==
LOC: CT 06:51
PROVIDERS: PCP Internal Medicine; Referring Provider Internal Medicine; Visit Provider Internal Medicine
DX: R31.9 Hematuria, unspecified (principal); K74.3 Primary biliary cirrhosis; R30.0 Dysuria; K75.81 Nonalcoholic steatohepatitis (NASH)
CPT/HCPCS: 74176; 76705; 76981

== ENCOUNTER → 2023-12-29 | Outpatient (CLI) | payer MEDICARE, SELFPAY ==
--- NOTE | 2023-12-29 10:55 | BD_ITS ---
STUDY: DUAL ENERGY X-RAY ABSORPTIOMETRY / DXA REASON FOR EXAM: Female, 53 years old. Uses cane, Osteoporosis TECHNIQUE: Bone Mineral Density (BMD) measurements of lumbar spine and bilateral hips were obtained. COMPARISON: None. FINDINGS: Lumbar Spine (L1-L4): g/cm2 (0.960) / T-score (-0.8) / Z-score (0.3) Findings are suggestive of normal bone density with a low fracture risk. Left Femur Total: g/cm2 (0.900) / T-score (-0.3) / Z-score (0.3) Left Femoral Neck: g/cm2 (0.712) / T-score (-1.2) / Z-score (-0.2) Right Femur Total: g/cm2 (0.887) / T-score (-0.5) / Z-score (0.2) Right Femoral Neck: g/cm2 (0.687) / T-score (-1.5) / Z-score (-0.4) BD/Dexa Bone Density Study IMPRESSION: The patient is considered osteopenic as outlined below according to World Gorge Organization (WHO) criteria with a low fracture risk. Reference Information: The T-score is the number of standard deviations above or below the standard which is normal for young adults at their peak bone mineral density. The World Health Organization (WHO) interprets the T-scores as follows: Above -1 Normal bone density Between -1 and -2.5 Osteopenia Equal to / or below -2.5 Osteoporosis As a practical clinical guideline, osteopenia may be graded as follows: Mild -1 through -1.5 Moderate -1.6 through -2.0 Severe -2.1 through -2.4 The Z-score is the number of standard deviations above or below age-matched controls. A Z-score of less than -1.5 would be considered abnormal. References: 1. NIH Osteoporosis and Related Bone Diseases www osteo.org 2. International Society for Clinical Densitometry www iscd.org 3. National Osteoporosis Foundation www nof.org Electronically Signed: Jin Kingston MD at 13:16 EDT ,
== END | disposition home or self-care (01) ==
LOC: OPBD 10:55
PROVIDERS: PCP Internal Medicine; Referring Provider Internal Medicine; Visit Provider Internal Medicine
DX: M85.80 Other specified disorders of bone density and structure, unspecified site (principal)
CPT/HCPCS: 77080

== ENCOUNTER → 2024-01-04 | Outpatient (CLI) | payer MEDICARE, SELFPAY ==
[2024-01-04] VITALS (14 sets, daily range): BP systolic 91–109; BP diastolic 31–78; PULSE 63–70; RESP 12–14; TEMP 35.9–36; O2SAT 93–97; BMI 32.1
--- NOTE | 2024-01-04 | LIVB_PTH ---
PATIENT: SHARON BARRAGAN LOC: CT U#:[id number] AGE/SX: 53/F ROOM: RE01/04/[address]: Dr. Raulito Bonds MD : 1970 BED: DIS: 01/04/2024 SPEC #: [id number] RECD: 01/04/24 09:17 STATUS: CHIDI REConstance #: [id number] JOANNA: 01/04/24 00:[address]: Raulito Bonds DEPT: SURGICAL PATHOLOGY RECD BY: Jo Oro ENTERED: 01/04/24 10:02 SP TYPE: LIVER BX OTHR DR: MD ONEYDA Qureshi JULIA Tissues: Liver, NOS Procedures: PAS with Diastase (control) Trichrome (control) Special Stain Group I PAS Stain (control) Surgery Specimen Level V Retic (control) Iron Stain (control) HEADER OPERATION: CT guided liver biopsy PRE-OP DIAGNOSIS: PBC, elevated alkaline phosphate, AMA TISSUE SUBMITTED: 18 gauge x 4 cores MICROSCOPIC DIAGNOSIS Liver, CT guided core biopsy: No significant pathologic change. See comment. 01/05/2024 COMMENT Reticulin stain reveals normal hepatic architecture . Trichrome stain does not reveal cirrhosis of fibrosis. Iron stain does not reveal intraparenchymal deposition of iron. PAS and PASD stains do not reveal accumulation of abnormal protein. All matched controls are appropriate. Clinical correlation is necessary. MICROSCOPIC DESCRIPTION Slides are reviewed. GROSS DESCRIPTION Received is one container labeled with the patient's name and not further designated. The specimen consists of multiple elongated fragments of clark soft tissue that in aggregate measure 1.5 x 0.3 x 0.1 cm. The specimen is totally submitted in one cassette. 01/04/2024 TC:5 CPT:43871,42157g9 ADDENDUM ADDENDUM ADDENDUM ADDENDUM ADDENDUM ADDENDUM ADDENDUM ADDENDUM ADDENDUM ADDENDUM 02/13/2024 08:39 ADDENDUM 02/13/2024 08:39 ADDENDUM 02/13/2024 08:39 ADDENDUM 02/13/2024 08:39 ADDENDUM 02/13/2024 08:39 This addendum is added to incorporate an outside pathology consultation report. The case was examined at [facility] (#[id number]) and the following diagnosis was rendered. Liver biopsy: Mild nonspecific changes. Please see complete above mentioned consultation report in EMR
[2024-01-04 07:51] LABS: Platelet Count 141 K/mm3 (150-450)
[2024-01-04 08:20] LABS: Prothrombin Time (Protime)PT. 13.2 SECONDS (11.7-14.9)
[2024-01-04 08:21] LABS: Partial Thromboplast Time 26.9 Seconds (24.1-36.2)
[2024-01-04] MEDS: fentaNYL 100 MCG/2 ML Ampul IV ×3 (08:41→09:07)
[2024-01-04] MEDS: Midazolam 2 MG/2 ML Syringe IV ×2 (08:43→08:55)
[2024-01-04] MEDS: Lidocaine 2% (20 ml mdv) 20 ML Vial INFILT (09:02)
--- NOTE | 2024-01-04 09:19 | PCM.OP.PRO ---
Procedure Report Date of Procedure: 01/04/24 Assessment & Plan Assessment/Plan (1) PITTMAN (nonalcoholic steatohepatitis): PLAN: PROCEDURE: CT DIRECTED CORE LIVER BIOPSY ORDERING PROVIDER: Dr. Bonds INDICATION: Female, 53 years old. Nonalcoholic steatohepatitis. PROVIDER: KALIA Hopson CONSENT: Written informed consent was obtained having explained the risks, benefits and alternatives in detail with the patient who accepted the risks and agreed to proceed. Laboratory review and clinical assessment was performed. PRE-PROCEDURE SEDATION ASSESSMENT: Current history and physical dictated by referring provider and reviewed. No clinical changes since date of exam. Patient has a Mallampati Score of Class 2 and ASA Class of 1. PROCEDURAL SEDATION PROTOCOL: The Drugs used were: 2 mg Versed, IV, and 100 mcg Fentanyl, IV. The sedation time was: 20 minutes, starting at 8:47 AM and terminated at 9:07 AM. The procedural sedation protocol was independently monitored by the department nurse. RADIATION DOSAGE (If Supplied By Facility): CTDIvol = 19.79 mGy, DLP = 374.39 mGycm Individualized dose optimization techniques were used for this CT. TECHNIQUE The patient was placed in a supine position. Using CT image guidance with image documentation, a suitable location in the right lobe of the liver was identified. The skin surface was prepped with chlorhexidine and draped in a sterile fashion. 2% lidocaine was used for local anesthesia. Using an anterior approach, puncture of the liver was uneventful with an 18-gauge core needle system. 3, 18-gauge core samples were obtained, and submitted in formalin to the pathologist for further assessment. The needle was removed. An occlusive sterile dressing was applied. Patient tolerated the procedure well, and returned to the holding bay for nursing monitoring. IMPRESSION: CT directed core needle biopsy of the liver, using CT image guidance with image documentation as described. Procedural Sedation protocol utilized with independent monitoring. Procedures Radiology Radiology CT Procedures: 93381 Biopsy Liver Multi Select Codes Radiology Radiology CT Procedures: [id number] CT guidance parenchymal tissue
[2024-01-04] MEDS: 0.9% Saline Lock 10 ML Syringe IV (09:45)
[2024-01-04] MEDS: Ketorolac 30 MG/ML Syringe IV (09:57)
== END | disposition home or self-care (01) ==
PROVIDERS: Nurse Practitioner Acute Care; PCP Internal Medicine; Referring Provider Internal Medicine; Visit Provider Internal Medicine
DX: K75.81 Nonalcoholic steatohepatitis (NASH) (principal); K74.3 Primary biliary cirrhosis; K75.4 Autoimmune hepatitis
CPT/HCPCS: 47000; 36415; 77012; 85049; 85610; 85730; 88307; 88312; 99156

== ENCOUNTER 2024-04-18 21:01 | Emergency (ER) | payer MEDICARE, SELFPAY ==
[2024-04-18 21:02] VITALS: BP 82/67; PULSE 107; RESP 18; TEMP 37.4; O2SAT 99
[2024-04-18 21:04] VITALS: BP 82/67; PULSE 107; RESP 18; TEMP 37.4; O2SAT 99
[2024-04-18 21:37] VITALS: BMI 32.6
[2024-04-18 21:43] VITALS: BP 124/80; PULSE 97; RESP 12; TEMP 39.4; O2SAT 97
[2024-04-18 22:02] VITALS: BP 96/75; PULSE 93; RESP 15; O2SAT 98
--- NOTE | 2024-04-18 22:20 | EKG12_ITS ---
Test Reason : DYSRHYTHMIA Blood Pressure : */* mmHG Vent. Rate : 90 BPM Atrial Rate : 90 BPM P-R Int : 178 ms QRS Dur : 72 ms QT Int : 340 ms P-R-T Axes : 38 5 26 degrees QTcB Int : 415 ms Normal sinus rhythm Normal ECG Confirmed by ANITA RAYO, JULIANO ([id number]), editor managing newspaper GLADIS BRYANT ([id number]) on 04/22/2024 6:07:43 AM Referred By: Amilcar Cast Confirmed By: JULIANO HOWARD MD
--- NOTE | 2024-04-18 22:22 | EX.ED.DYSGE1 ---
HPI History of Present Illness Chief Complaint: General Illness Informant: patient and parent Narrative Narrative: Here with mother for evaluation. Yesterday for have a cough after using the new [place] spray dishwashing soap. Today while playing with her grandchild got up and passed out. No prodromal chest pains or shortness of breath. No vomiting or diarrhea. History of constipation. No urinary symptoms. Presented with a fever 103. Denies any significant myalgias. Denies sick contacts. History of autoimmune hepatitis, primary biliary cholangitis, nonalcoholic steatohepatitis, she does not take any immunosuppressants. No history of similar. No cardiac history. Reports generalized weakness.COVID vaccinated no COVID infections the past. No flu vaccination this year. Prior similar symptoms: No PFSH PFSH Medical History Dysuria Hypokalemia Positive Lisa's Sign Elevated serum alkaline phosphatase level Health care maintenance Elevated blood-pressure reading, without diagnosis of hypertension Left knee pain Panic attacks Anxiety and depression Lumbar radiculopathy Low back pain Polyneuropathy due to drug Pain from breast implant Capsular contracture of breast implant, initial encounter Left forearm pain Neuropathy Carpal tunnel syndrome, bilateral Soft tissue radionecrosis Postprocedural seroma of skin and subcutaneous tissue following other procedure Deformity of reconstructed breast Postoperative hematoma of subcutaneous tissue following non-dermatologic procedure Hematoma of breast Radiation skin ulcer of chest Former cigarette smoker Partial loss of skin graft Late effect of radiation Fibroids Thyroid disease Goiter History of emotional problems Breast lump in female BONE FRACTURES - BROKEN RIGHT ARM Back pain Seasonal allergies Smoker Estrogen receptor negative status [ER-] Disproportion of reconstructed breast 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 Breast cancer, right breast Home Medications ?Medication ?Instructions ?Recorded ?Last Taken ?Type buprenorphine 15 mcg/hour weekly 1 patch transdermal QWEEK 06/09/20 Unknown History transdermal patch (Butrans) tizanidine 2 mg capsule 2 mg PO QHS 06/09/20 Unknown History cane #1 ea 09/09/20 Unknown Rx lorazepam 0.5 mg tablet 0.5 mg PO QHS PRN anxiety #20 tabs 05/31/23 Unknown Rx atorvastatin 20 mg tablet (Lipitor) 20 mg PO QHS #90 tabs 08/28/23 Unknown Rx buspirone 15 mg tablet 15 mg PO BID #180 TABLETS 12/05/23 Unknown Rx bupropion HCl 150 mg 24 hr tablet, 150 mg PO QAM #90 TABLETS 12/11/23 Unknown Rx extended release cholecalciferol (vitamin D3) 1,250 1,250 mcg PO QWEEK 1 month #4 caps 12/13/23 Unknown Rx mcg (50,000 unit) capsule mecobalamin (vitamin B12) 500 mcg 500 mcg PO DAILY 12/13/23 Unknown History chewable tablet trazodone 50 mg tablet 50 mg PO QHS PRN insomnia #90 tabs 01/24/24 Unknown Rx sertraline 100 mg tablet 100 mg PO BID #180 tabs 02/01/24 Unknown Rx ursodiol 500 mg tablet (STELLA Forte) 500 mg PO TID 1 month #90 tabs 02/27/24 Unknown Rx topiramate 25 mg tablet 25 mg PO BID #60 tabs 03/04/24 Unknown Rx pregabalin 150 mg capsule 150 mg PO BID #60 caps 04/03/24 Unknown Rx Allergy/AdvReac Type Severity Reaction Status Date / Time cat dander Allergy Severe Lips & Verified 02/12/24 14:12 throat swole Environmental Allergies: Allergy Itching,chris Verified 02/12/24 14:12 Uncoded h Poultry Allergy Anaphylaxis Verified 02/12/24 14:12 Family History Unknown No problems noted. Mother Anemia Anxiety Arthritis Breast cancer Depression Osteoporosis Father Anxiety Depression Mental disorder Parkinson disease Respiratory complication Sister Anemia Anxiety Sister Anxiety Aunt Breast cancer Uncle Leukemia Grandfather Melanoma Other Bowel disease Surgical History History of removal of implants of both breasts H/O bilateral breast implants Status post bilateral breast reconstruction complicated hernia surgery Status post transverse rectus abdominis muscle (TRAM) flap breast reconstruction PORT PLACEMENT 02/02 MASTECTOMY RIGHT BREAST AND BILATERAL SENTINEL NODE BIOPSIES History of prophylactic mastectomy of left breast HYSTERCTOMY WITH BILATERAL SALPINGECTOMY History of tubal ligation History of thyroidectomy Social History Smoking Status: Former smoker second hand exposure: No alcohol intake: never substance use type: does not use what type of physical activity do you participate in: other frequency: daily seatbelt use: always do you feel safe at home: Yes additional social history: SUN EXPOSURE: OCCASIONALLY ROS ROS ED Constitutional Constitutional ED: Denies chills, fever(s) or sweats ENT ENT ED: Denies sore throat Cardiovascular Cardiovascular: Reports other Details: Syncope ; Denies chest pain, leg edema, palpitations or racing heartbeat Respiratory/Chest Respiratory/Chest: Reports cough; Denies dyspnea or dyspnea on exertion Gastrointestinal Gastrointestinal: Denies abdominal pain, diarrhea, nausea or vomiting Genitourinary Genitourinary ED: Denies dysuria, hematuria or urinary frequency Musculoskeletal Musculoskeletal: Denies back pain, extremity pain or neck pain Integumentary Denies rash or wounds Neurologic Neurologic: Reports weakness; Denies headache(s) or paresthesias EXAM Physical Exam Const Vital Signs: 04/18/24 21:02 04/18/24 21:04 04/18/24 21:37 Temperature 99.3 F H 99.3 F H Temperature Source Oral Temporal Pulse Rate 107 H 107 H Respiratory Rate 18 18 Respiratory Effort Normal Respiratory Pattern Normal Blood Pressure 82/67 L 82/67 L Blood Pressure Mean 72 72 Pulse Ox 99 99 Oxygen Delivery Method Room Air Room Air 04/18/24 21:43 04/18/24 22:02 04/18/24 22:23 Temperature 103 F H Temperature Source Oral Pulse Rate 97 93 Respiratory Rate 12 15 Respiratory Effort Respiratory Pattern Blood Pressure 124/80 H 96/75 Blood Pressure Mean 94 82 Pulse Ox 97 98 98 Oxygen Delivery Method Room Air Room Air Room Air 04/18/24 23:00 04/19/24 00:00 04/19/24 01:00 Temperature 100 F H Temperature Source Oral Pulse Rate 95 90 82 Respiratory Rate 18 16 13 Respiratory Effort Respiratory Pattern Blood Pressure 116/104 H 96/56 L 102/82 H Blood Pressure Mean 108 69 91 Pulse Ox 95 96 97 Oxygen Delivery Method Room Air Room Air 04/19/24 01:56 04/19/24 02:23 Temperature 100 F H 98.0 F Temperature Source Oral Pulse Rate 78 83 Respiratory Rate 16 16 Respiratory Effort Respiratory Pattern Blood Pressure 95/67 108/63 Blood Pressure Mean 76 78 Pulse Ox 96 96 Oxygen Delivery Method Room Air Positive well nourished and well developed General Appearance ED: well developed and NAD HEENT Reports moist mucous membranes normocephalic and atraumatic Eyes General Eye ED: Yes normal appearance of both eyes Neck full ROM Chest Wall Chest: Negative for tenderness Resp normal respiratory effort and normal air movement Effort and Inspection: symmetric chest movement; Negative for respiratory distress Cardio regular rate, regular rhythm and no murmurs Peripheral Pulses: pulses 2+ throughout GI normal to inspection, nondistended, normoactive bowel sounds and non-tender Palpation: Negative for guarding or rebound tenderness present Extremity normal to inspection General Extremety ED: Negative for edema or tenderness General Extremity: Negative for edema Neuro oriented x3, CN's II-XII intact bilaterally and no sensory deficits noted Sensorium / Orientation: awake and alert Skin no rashes or lesions noted and no wounds MDM MDM MDM Narrative Medical decision making narrative: Interventions / MDM: Differential diagnosis: Febrile illness, viral syndrome, near syncope Diagnosis considered but do not suspect: Pneumonia however chest x-ray negative. My EKG interpretation: Sinus rate of 90, no ST changes T wave inversions leads III nonspecific. QTc 415. Imaging independently reviewed and interpreted by myself: 2 view chest x-ray: No acute process also read by radiology. External documents reviewed: N/A Test considered but not ordered:N/A ED course: Patient febrile heart rate in the 90s, reports increasing weakness and not feeling well. Sepsis labs were ordered for further evaluation. Due to liver disease we will avoid Tylenol. Toradol 15 mg IV given for fever. Liter of fluids ordered. 2350: White count 3.2 had previous similar findings in the past. Urine negative chest x-ray negative. COVID, flu, RSV negative. Creatinine normal at 0.94. Normal liver enzymes. Fever down to 100. Blood pressure soft on reevaluation in the 90s. Attempted ambulation reported she was more dizzy, will give additional liter of fluid and reevaluate. 0140: Additional liter of fluids in blood pressure 96/60. Fever with cough discussed viral syndrome with near syncope. She has no external foreign body placements for concerns for other sources of infection. Will reambulate. Reevaluation blood pressure stable improved symptoms able to ambulate with no return of symptoms. Patient to continue oral hydration at home. Discussed using Motrin as needed. Return precautions. All questions answered. Re-evaluation: stable Disposition discussed with patient/family/significant other: Patient Case discussed with consulting clinician: N/A This note was generated with THEVAation software. It may contain incorrect words, spelling, and punctuation that were not noted in checking the note before signing. Lab Data Attestation: I reviewed the patient's lab results. Labs: Laboratory Results - last 24 hr 04/18/24 04/18/24 21:50 22:45 WBC 3.2 L RBC 4.15 L Hgb 12.6 Hct 35.4 L MCV 85.3 MCH 30.4 MCHC 35.6 RDW Std Deviation 35.8 RDW Coeff of [place] 11.8 Plt Count 112 L MPV 10.6 Immature Gran % (Auto) 0.000 Neut % (Auto) 80.6 H Lymph % (Auto) 8.6 L [place] % (Auto) 10.2 H Eos % (Auto) 0.3 Baso % (Auto) 0.3 Absolute Neuts (auto) 2.6 Absolute Lymphs (auto) 0.28 L Nucleated RBC % 0 PT 13.3 INR 1.0 APTT 26.6 Sodium 138 Potassium 3.5 Chloride 107 Carbon Dioxide 22.0 Anion Gap 9 BUN 15 Creatinine 0.94 Estim Creat Clear Calc 64.09 Est GFR (MDRD) Af Amer 80 Est GFR (MDRD) Non-Af 66 BUN/Creatinine Ratio 16.0 Glucose 97 Calcium 9.2 Total Bilirubin 0.60 AST 18 ALT 22 Alkaline Phosphatase 107 Total Protein 7.3 Albumin 4.0 Globulin 3.3 Albumin/Globulin Ratio 1.2 Urine Color Straw Urine Clarity Clear Urine pH 6.0 Ur Specific [place] 1.005 Urine Protein Negative Urine Glucose (UA) Normal Urine Ketones Negative Urine Occult Blood Negative Urine Nitrite Negative Urine Bilirubin Negative Urine Urobilinogen Normal Ur Leukocyte Esterase Negative Urine RBC 0 SEEN Urine WBC 0 SEEN Ur Squamous Epith Cells 0 SEEN Urine Bacteria 0 SEEN Urine Mucus 0 SEEN Radiography Diagnostic Testing: Clinical Impression(s) from Imaging Studies Chest X-Ray 04/18/24 22:47 IMPRESSION: No radiographic evidence of acute cardiopulmonary disease Reading Location: [facility] Discharge Plan Triage Chief Complaint: General Illness ED Provider: Amilcar Cast Dx/Rx/DC Orders Clinical Impression: Acute febrile illness, Acute viral syndrome, Near syncope Instructions: ED Fever Control (Adult), ED Hypotension, Orthostatic, ED Viral Syndrome (Adult) Prescriptions: No Action tizanidine 2 mg capsule 2 mg PO QHS buprenorphine [Butrans] 15 mcg/hour patch weekly 1 patch TD QWEEK Rx Instructions: Dr Blanco ([facility] [place] cane Device See Rx Instructions .ROUTE .MEDSUPPLY Qty: 1 1RF Rx Instructions: As directed mecobalamin (vitamin B12) 500 mcg tablet,chewable 500 mcg PO DAILY cholecalciferol (vitamin D3) 1,250 mcg (50,000 unit) capsule 1,250 mcg PO QWEEK 30 Days Qty: 4 3RF ursodiol [STELLA Forte] 500 mg tablet 500 mg PO TID 30 Days Qty: 90 6RF lorazepam 0.5 mg tablet 0.5 mg PO QHS PRN (Reason: anxiety) Qty: 20 0RF atorvastatin [Lipitor] 20 mg tablet 20 mg PO QHS Qty: 90 3RF buspirone 15 mg tablet 15 mg PO BID Qty: 180 3RF bupropion HCl 150 mg tablet extended release 24 hr 150 mg PO QAM Qty: 90 1RF trazodone 50 mg tablet 50 mg PO QHS PRN (Reason: insomnia) Qty: 90 1RF Rx Instructions: take 1 tablet by mouth at bedtime if needed for sleep sertraline 100 mg tablet 100 mg PO BID Qty: 180 0RF topiramate 25 mg tablet 25 mg PO BID Qty: 60 2RF pregabalin 150 mg capsule 150 mg PO BID Qty: 60 0RF Primary Care Provider: Cici Martinez Referrals: Cici Martinez MD [Primary Care Provider] - 3-5 Days if not improving Activity Restrictions/Additional Instructions: Chest x-ray negative, urine negative. Labs stable. COVID, flu, RSV negative. EKG normal. Continue oral fluids for hydration. Ibuprofen up to 600 mg every 6 hours as needed for fever control. Continue oral fluids for hydration. Follow-up with your doctor. Print Language: Bengali Disposition Disposition: Home, Self Care Discharge Date/Time: 04/19/24 02:23
[2024-04-18 22:23] VITALS: O2SAT 98
[2024-04-18 22:39] LABS: Absolute Lymphocyte Count 0.28 X10^3/uL (0.83-4.51); Absolute Neutrophil Count 2.6 X10^3/uL (2.0-7.7); Basophil# 0.01 X10^3/uL; Basophil% 0.3 % (0-1); Eosinophil# 0.01 X10^3/uL; Eosinophils% 0.3 % (0-5); Hematocrit 35.4 % (37-47); Hemoglobin 12.6 g/dL (12.0-15.0); Lymphocyte # 0.28 X10^3/ul (0.83-4.51); Lymphocyte % 8.6 % (19-41); Mean Corp Hgb Conc 35.6 g/dL (32-36); Mean Corpuscular Hgb 30.4 pg (27.0-32.0); Mean Corpuscular Volume 85.3 fL (81-99); Mean Platelet Vol. 10.6 fl (6.2-12.0); Monocyte# 0.33 X10^3/uL; Monocyte% 10.2 % (0-10); NRBC Flagged by Analyzer 0 % (0-5); Neutrophil # 2.61 X10^3/uL (2.7-7.7); Neutrophil % 80.6 % (47-70); POSITIVE DIFFERENTIAL YES; Platelet Count 112 K/mm3 (150-450); RBC Distribution Width CV 11.8 % (11.6-14.6); RBC Distribution Width SD 35.8 fl (35.1-43.9); Red Blood Count 4.15 M/mm3 (4.2-5.4); White Blood Count 3.2 K/mm3 (4.4-11.0)
[2024-04-18] MEDS: Ketorolac 15 MG/ML Vial IV (22:41)
[2024-04-18] MEDS: 0.9% Normal Saline (1000mL) 1,000 ML 999 ML IV (22:41)
--- NOTE | 2024-04-18 22:47 | RAD_ITS ---
PROCEDURE: CHEST 1 VIEW (PORTABLE) REASON FOR EXAM: Cough TECHNIQUE: Frontal view of the chest. COMPARISON: None. FINDINGS: The heart size is normal. Aortic arch calcifications The mediastinal contour is unremarkable. The lungs are clear. The bones are unremarkable. RAD/Chest 1 View (Portable) IMPRESSION: No radiographic evidence of acute cardiopulmonary disease Reading Location: [facility]
[2024-04-18 22:55] LABS: Bacteria 0 SEEN /hpf (None Seen); Mucous, Urine 0 SEEN /hpf (<or=2+); Red Blood Cells-Urine 0 SEEN /hpf (0-5); Squamous Epithelial Cells - UA 0 SEEN /hpf (5-10); White Blood Cells 0 SEEN /hpf (0-5)
[2024-04-18 22:55] LABS: Partial Thromboplast Time 26.6 Seconds (24.1-36.2); Prothrombin Time (Protime)PT. 13.3 SECONDS (11.7-14.9)
[2024-04-18 23:00] VITALS: BP 116/104; PULSE 95; RESP 18; O2SAT 95
[2024-04-18 23:10] LABS: Color, Urine Straw (Yellow); Glucose, Dipstick Normal (Normal); Ketone-Dipstick Negative (Negative); Leukocyte Esterase-Dipstick Negative /ul (Negative); Nitrite-Dipstick Negative (Negative); Occult Blood-Urine Negative /ul (Negative); Protein-Dipstick Negative (Negative); Specific Gravity, Urine 1.005 (1.002-1.030); Urine Bilirubin Dipstick Negative (Negative); Urine Clarity Clear (Clear); Urine Urobilinogen Normal (Normal)
[2024-04-18 23:41] LABS: BUN 15 mg/dL (7-18); Creatinine, Serum 0.94 mg/dL (0.55-1.02); EST Glomerular Filtration Rate 66 mL/min (>60); Est Glom Filt Rate - Afr Amer 80 mL/min (>60); Estimated Creatinine Clearance 64.09 ml/min; Glucose 97 mg/dL (74-106)
[2024-04-18 23:42] LABS: ALB/GLOB Ratio 1.2 RATIO (0.9-2.4); AST(SGOT) 18 U/L (15-37); Alanine Aminotransfer ALT/SGPT 22 U/L (13-56); Alkaline Phosphatase 107 U/L (45-117); Calcium,Total 9.2 mg/dL (8.5-10.1); Globulin 3.3 g/dL (2.2-4.2); Protein, Total 7.3 g/dL (6.4-8.2)
[2024-04-18 23:43] LABS: Anion Gap 9 (5-15); Chloride 107 mmol/L (98-107); Potassium 3.5 mmol/L (3.5-5.1); Sodium Level 138 mmol/L (136-145)
[2024-04-19] VITALS: BP 96/56; PULSE 90; RESP 16; TEMP 37.7; O2SAT 96
[2024-04-19] MEDS: 0.9% Normal Saline (1000mL) 1,000 ML 999 ML IV (00:17)
[2024-04-19 01:00] VITALS: BP 102/82; PULSE 82; RESP 13; O2SAT 97
[2024-04-19 01:56] VITALS: BP 95/67; PULSE 78; RESP 16; TEMP 37.7; O2SAT 96
[2024-04-19 02:23] VITALS: BP 108/63; PULSE 83; RESP 16; TEMP 36.7; O2SAT 96
== END 2024-04-19 02:23 | disposition home or self-care (01) ==
PROVIDERS: Emergency Provider Emergency Medicine; PCP Internal Medicine; Referring Provider Emergency Medicine; Visit Provider Emergency Medicine
DX: B34.9 Viral infection, unspecified (principal); R55 Syncope and collapse; R50.9 Fever, unspecified; K76.9 Liver disease, unspecified; Z11.52 Encounter for screening for COVID-19; E89.0 Postprocedural hypothyroidism; F32.A Depression, unspecified; F41.9 Anxiety disorder, unspecified; Z79.899 Other long term (current) drug therapy; Z87.891 Personal history of nicotine dependence
CPT/HCPCS: 71045; 80053; 81001; 83605; 85025; 85610; 85730; 87040; 87086; 87088; 87631; 93005; 96361; 96374; 99284; A4216

== ENCOUNTER → 2024-07-25 | Outpatient (CLI) | payer MEDICARE, SELFPAY ==
--- NOTE | 2024-07-25 08:44 | US_ITS ---
PROCEDURE: ULTRASOUND ABDOMEN LIMITED WITH ELASTOGRAPHY REASON FOR EXAM: PBC, MASLD COMPARISON: None. TECHNIQUE: Right upper quadrant abdominal ultrasound. shear wave elastography for non- invasive assessment of liver tissue stiffness. FINDINGS: LIVER: Size: Unremarkable Length: 15.6 cm Echotexture: Hyperechogenic. Contour: Normal Lesions: None identified Blood flow: Hepatopetal. Elastography: EQI Med: 6.4 kPa EQI Med Aron: 1.5 m/s GALLBLADDER: Normal COMMON BILE DUCT: 0.42 cm. . PANCREAS: Normal Right kidney: Size measures 9.2 x 4.2 x 3.9 cm. Cortex measures 1.0 cm. US/ABD Limited w/ Elastography IMPRESSION: 1. Steatosis. 2. F 2 to F 3, moderate to severe likelihood of clinically significant hepatic fibrosis. Reference Values: SRU <1.37 m/s (5.7kPa): No to mild fibrosis 1.37 m/s - 2.2 m/s: Moderate to severe fibrosis >2.2 m/s (15kPa): Significant fibrosis / cirrhosis METAVIR Score F2 or higher: 1.34 m/s (5.7kPa) F3 or higher: 1.55 m/s (7.3kPa) F4: 1.80 m/s (10kPa) Reading Location: [facility]
== END | disposition home or self-care (01) ==
LOC: US 08:43
PROVIDERS: PCP Internal Medicine; Referring Provider Internal Medicine; Visit Provider Internal Medicine
DX: K76.0 Fatty (change of) liver, not elsewhere classified (principal); K74.3 Primary biliary cirrhosis
CPT/HCPCS: 76705; 76981

== ENCOUNTER → 2024-09-12 | Outpatient (CLI) | payer MEDICARE, MEDICAID, SELFPAY ==
[2024-09-12 14:30] LABS: Absolute Lymphocyte Count 0.93 X10^3/uL (0.83-4.51); Absolute Neutrophil Count 2.2 X10^3/uL (2.0-7.7); Basophil# 0.02 X10^3/uL; Basophil% 0.6 % (0-1); Eosinophil# 0.07 X10^3/uL; Eosinophils% 2.1 % (0-5); Hematocrit 38.3 % (37-47); Hemoglobin 13.5 g/dL (12.0-15.0); Lymphocyte # 0.93 X10^3/ul (0.83-4.51); Lymphocyte % 27.5 % (19-41); Mean Corp Hgb Conc 35.2 g/dL (32-36); Mean Corpuscular Hgb 30.5 pg (27.0-32.0); Mean Corpuscular Volume 86.5 fL (81-99); Mean Platelet Vol. 10.2 fl (6.2-12.0); Monocyte# 0.19 X10^3/uL; Monocyte% 5.6 % (0-10); NRBC Flagged by Analyzer 0 % (0-5); Neutrophil # 2.16 X10^3/uL (2.7-7.7); Neutrophil % 63.9 % (47-70); Platelet Count 151 K/mm3 (150-450); RBC Distribution Width CV 12.1 % (11.6-14.6); RBC Distribution Width SD 38.3 fl (35.1-43.9); Red Blood Count 4.43 M/mm3 (4.2-5.4); White Blood Count 3.4 K/mm3 (4.4-11.0)
[2024-09-12 14:49] LABS: Prothrombin Time (Protime)PT. 13.2 SECONDS (11.7-14.9)
[2024-09-12 14:58] LABS: Hemoglobin A1c 4.5 % (<=5.6)
[2024-09-12 15:25] LABS: ALB/GLOB Ratio 1.8 RATIO (0.9-2.4); AST(SGOT) 19 U/L (<=31); Alanine Aminotransfer ALT/SGPT 15 U/L (<=34); Albumin, Serum 4.6 g/dL (3.5-5.0); Alkaline Phosphatase 104 U/L (35-104); Anion Gap 12 (5-15); BUN 14 mg/dL (4-19); CRP 3.34 mg/L (0.0-3.0); Calcium,Total 9.6 mg/dL (7.6-11.0); Carbon Dioxide 21.5 mmol/L (21.0-32.0); Chloride 107 mmol/L (98-108); Cholesterol 163 mg/dL (<=200); Creatinine, Serum 0.88 mg/dL (0.70-1.20); EST Glomerular Filtration Rate 78 (>60); Globulin 2.6 g/dL (2.2-4.2); Glucose 65 mg/dL (70-99); High Density Lipoprotein 45 mg/dL; Low Density Lipoprotein Calc. 92 mg/dL; Potassium 3.5 mmol/L (3.3-5.1); Protein, Total 7.2 g/dL (5.9-8.4); Sodium Level 140 mmol/L (133-145); Total Bilirubin 0.52 mg/dL (0.00-1.30); Triglycerides 131 mg/dL; Very Low Density Lipoprotein 26 mg/dL (5-40); cholesterol:hdl ratio screen 3.64
== END | disposition home or self-care (01) ==
LOC: LAB 13:36
PROVIDERS: PCP Internal Medicine; Referring Provider Internal Medicine; Visit Provider Internal Medicine
DX: K74.3 Primary biliary cirrhosis (principal); K75.4 Autoimmune hepatitis; K76.0 Fatty (change of) liver, not elsewhere classified; E55.9 Vitamin D deficiency, unspecified; R73.03 Prediabetes
CPT/HCPCS: 36415; 80053; 80061; 82306; 83036; 85025; 85610; 86140

== ENCOUNTER → 2025-01-13 | Outpatient (CLI) | payer MEDICARE, SELFPAY ==
[2025-01-13 12:20] LABS: Hematocrit 37.5 % (37-47); Hemoglobin 13.6 g/dL (12.0-15.0); Immature Granulocytes Count 0.010 X10^3/uL (0.0-0.0); Mean Corp Hgb Conc 36.3 g/dL (32-36); Mean Corpuscular Volume 85.4 fL (81-99); Mean Platelet Vol. 9.9 fl (6.2-12.0); NRBC Flagged by Analyzer 0 % (0-5); Platelet Count 147 K/mm3 (150-450); RBC Distribution Width CV 11.9 % (11.6-14.6); RBC Distribution Width SD 36.7 fl (35.1-43.9); Red Blood Count 4.39 M/mm3 (4.2-5.4); White Blood Count 3.8 K/mm3 (4.4-11.0)
[2025-01-13 13:04] LABS: AST(SGOT) 19 U/L (<=31); Alanine Aminotransfer ALT/SGPT 14 U/L (<=34); Albumin, Serum 4.5 g/dL (3.5-5.0); Alkaline Phosphatase 111 U/L (35-104); Anion Gap 10 (5-15); BUN 12 mg/dL (4-19); BUN/Creat Ratio 13.0 RATIO (10-20); Calcium,Total 9.4 mg/dL (7.6-11.0); Carbon Dioxide 20.9 mmol/L (21.0-32.0); Chloride 109 mmol/L (98-108); Globulin 2.6 g/dL (2.2-4.2); Glucose 101 mg/dL (70-99); Potassium 4.2 mmol/L (3.3-5.1)
== END | disposition home or self-care (01) ==
LOC: LAB 11:40
PROVIDERS: PCP Internal Medicine; Referring Provider Internal Medicine; Visit Provider Internal Medicine
DX: E07.9 Disorder of thyroid, unspecified (principal); K76.0 Fatty (change of) liver, not elsewhere classified
CPT/HCPCS: 36415; 80053; 84439; 84443; 85025